=== PATIENT | female | born 1955 | race Caucasian/White ===

== ENCOUNTER → 2023-09-26 | Outpatient (REF) | payer MEDICARE, MEDICAID, SELFPAY ==
[2023-09-26 10:32] LABS: Albumin, Serum 2.5 g/dL (3.2-5.0); BUN 14 mg/dL (7-18); BUN/Creat Ratio 17.5 RATIO (10-20); Calcium,Total 9.6 mg/dL (8.5-10.1); Chloride 102 mmol/L (98-107); EST Glomerular Filtration Rate 76 mL/min (>60); Est Glom Filt Rate - Afr Amer 92 mL/min (>60); Glucose 89 mg/dL (74-106); Phosphorus 2.8 mg/dL (2.5-4.9); Potassium 4.8 mmol/L (3.5-5.1); Sodium Level 134 mmol/L (136-145)
[2023-09-26 10:51] LABS: Protein, Urine (Random) 13.3 mg/dL (<11.9); Protein:Creat Ratio 273 mg/g CRE (0-200)
== END ==
LOC: OLS.WCC 04:00
PROVIDERS: Referring Provider Family Medicine; Visit Provider Family Medicine
DX: N39.0 Urinary tract infection, site not specified (principal); G93.40 Encephalopathy, unspecified; I10 Essential (primary) hypertension; Z79.899 Other long term (current) drug therapy
CPT/HCPCS: 36415; 80069; 82570; 84156

== ENCOUNTER → 2023-10-09 | Outpatient (REF) | payer MEDICARE, MEDICAID, SELFPAY ==
[2023-10-09 07:42] LABS: Absolute Lymphocyte Count 3.07 X10^3/uL (0.83-4.51); Basophil# 0.06 X10^3/uL; Basophil% 0.7 % (0-1); Eosinophil# 0.17 X10^3/uL; Hematocrit 32.1 % (37-47); Hemoglobin 10.3 g/dL (12.0-15.0); Lymphocyte # 3.07 X10^3/ul (0.83-4.51); Lymphocyte % 35.7 % (19-41); Mean Corp Hgb Conc 32.1 g/dL (32-36); Mean Corpuscular Hgb 27.6 pg (27.0-32.0); Mean Corpuscular Volume 86.1 fL (81-99); Mean Platelet Vol. 9.7 fl (6.2-12.0); Monocyte# 1.23 X10^3/uL; Monocyte% 14.3 % (0-10); NRBC Flagged by Analyzer 0 % (0-5); Neutrophil # 4.01 X10^3/uL (2.7-7.7); Neutrophil % 46.7 % (47-70); Platelet Count 198 K/mm3 (150-450); RBC Distribution Width CV 14.7 % (11.6-14.6); RBC Distribution Width SD 46.4 fl (35.1-43.9); Red Blood Count 3.73 M/mm3 (4.2-5.4); White Blood Count 8.6 K/mm3 (4.4-11.0)
[2023-10-09 07:53] LABS: Valproic Acid (Depakene) Level 142 ug/mL (50-100)
[2023-10-09 08:10] LABS: ALB/GLOB Ratio 0.6 RATIO (0.9-2.4); AST(SGOT) 40 U/L (15-37); Alanine Aminotransfer ALT/SGPT 22 U/L (13-56); Albumin, Serum 2.6 g/dL (3.2-5.0); Alkaline Phosphatase 51 U/L (45-117); Anion Gap 7 (5-15); BUN 20 mg/dL (7-18); BUN/Creat Ratio 21.5 RATIO (10-20); Calcium,Total 9.2 mg/dL (8.5-10.1); Chloride 105 mmol/L (98-107); Creatinine, Serum 0.93 mg/dL (0.55-1.02); EST Glomerular Filtration Rate 64 mL/min (>60); Est Glom Filt Rate - Afr Amer 77 mL/min (>60); Glucose 98 mg/dL (74-106); Potassium 4.1 mmol/L (3.5-5.1); Protein, Total 6.6 g/dL (6.4-8.2); Sodium Level 135 mmol/L (136-145)
[2023-10-11 16:09] LABS: KEPPRA (LEVETIRACETAM) 56.8 ug/mL (10.0-40.0)
== END ==
LOC: OLS.WCC 05:00
PROVIDERS: Visit Provider Family Medicine
DX: I10 Essential (primary) hypertension (principal); G93.40 Encephalopathy, unspecified; G40.911 Epilepsy, unspecified, intractable, with status epilepticus; I67.9 Cerebrovascular disease, unspecified
CPT/HCPCS: 36415; 80053; 80164; 80177; 82140; 85025

== ENCOUNTER → 2023-10-21 | Outpatient (REF) | payer MEDICARE, MEDICAID, SELFPAY ==
[2023-10-21 09:57] LABS: Hemoglobin 10.4 g/dL (12.0-15.0); Mean Corp Hgb Conc 31.5 g/dL (32-36); Mean Corpuscular Hgb 27.7 pg (27.0-32.0); Mean Corpuscular Volume 87.8 fL (81-99); Mean Platelet Vol. 9.6 fl (6.2-12.0); Platelet Count 173 K/mm3 (150-450); RBC Distribution Width CV 14.5 % (11.6-14.6); RBC Distribution Width SD 46.3 fl (35.1-43.9); Red Blood Count 3.76 M/mm3 (4.2-5.4); White Blood Count 8.5 K/mm3 (4.4-11.0)
[2023-10-21 13:35] LABS: ALB/GLOB Ratio 0.6 RATIO (0.9-2.4); AST(SGOT) 40 U/L (15-37); Alanine Aminotransfer ALT/SGPT 18 U/L (13-56); Albumin, Serum 2.6 g/dL (3.2-5.0); Alkaline Phosphatase 50 U/L (45-117); Anion Gap 9 (5-15); BUN 18 mg/dL (7-18); BUN/Creat Ratio 22.1 RATIO (10-20); Calcium,Total 9.6 mg/dL (8.5-10.1); Chloride 104 mmol/L (98-107); Creatinine, Serum 0.82 mg/dL (0.55-1.02); EST Glomerular Filtration Rate 74 mL/min (>60); Est Glom Filt Rate - Afr Amer 90 mL/min (>60); Globulin 4.1 g/dL (2.2-4.2); Glucose 91 mg/dL (74-106); Potassium 4.3 mmol/L (3.5-5.1); Protein, Total 6.7 g/dL (6.4-8.2); Sodium Level 136 mmol/L (136-145)
== END ==
LOC: OLS.WCC 05:00
PROVIDERS: Visit Provider Family Medicine
DX: I10 Essential (primary) hypertension (principal); Z79.899 Other long term (current) drug therapy
CPT/HCPCS: 36415; 80053; 85027

== ENCOUNTER → 2023-11-19 | Outpatient (REF) | payer MEDICARE, MEDICAID, SELFPAY ==
[2023-11-19 10:34] LABS: ALB/GLOB Ratio 0.6 RATIO (0.9-2.4); AST(SGOT) 35 U/L (15-37); Alanine Aminotransfer ALT/SGPT 19 U/L (13-56); Albumin, Serum 2.6 g/dL (3.2-5.0); Alkaline Phosphatase 63 U/L (45-117); Anion Gap 9 (5-15); BUN 21 mg/dL (7-18); BUN/Creat Ratio 25.9 RATIO (10-20); Calcium,Total 9.5 mg/dL (8.5-10.1); Chloride 103 mmol/L (98-107); Cholesterol 76 mg/dL (200); Creatinine, Serum 0.81 mg/dL (0.55-1.02); EST Glomerular Filtration Rate 75 mL/min (>60); Est Glom Filt Rate - Afr Amer 90 mL/min (>60); Globulin 4.2 g/dL (2.2-4.2); Glucose 86 mg/dL (74-106); High Density Lipoprotein 47 mg/dL; Potassium 4.2 mmol/L (3.5-5.1); Protein, Total 6.8 g/dL (6.4-8.2); Sodium Level 137 mmol/L (136-145); Triglycerides 118 mg/dL; Very Low Density Lipoprotein 24 mg/dL (5-40)
[2023-11-19 10:35] LABS: Hematocrit 31.1 % (37-47); Mean Corp Hgb Conc 32.2 g/dL (32-36); Mean Corpuscular Hgb 27.4 pg (27.0-32.0); Mean Corpuscular Volume 85.2 fL (81-99); Mean Platelet Vol. 9.7 fl (6.2-12.0); Platelet Count 242 K/mm3 (150-450); RBC Distribution Width CV 14.4 % (11.6-14.6); RBC Distribution Width SD 44.6 fl (35.1-43.9); Red Blood Count 3.65 M/mm3 (4.2-5.4); Valproic Acid (Depakene) Level 87 ug/mL (50-100); White Blood Count 10.3 K/mm3 (4.4-11.0)
[2023-11-19 10:37] LABS: Vitamin D,25 Hydroxy 50.6 ng/mL
== END ==
LOC: OLS.WCC 05:00
PROVIDERS: PCP Family Medicine; Visit Provider Family Medicine
DX: I10 Essential (primary) hypertension (principal); E78.5 Hyperlipidemia, unspecified; Z86.73 Personal history of transient ischemic attack (TIA), and cerebral infarction without residual deficits; Z79.899 Other long term (current) drug therapy
CPT/HCPCS: 36415; 80053; 80061; 80164; 82306; 85027

== ENCOUNTER → 2023-12-20 05:00 | Outpatient (REF) | payer MEDICARE, MEDICAID, SELFPAY ==
[2023-12-20 07:18] LABS: Hemoglobin 10.5 g/dL (12.0-15.0); Mean Corp Hgb Conc 31.8 g/dL (32-36); Mean Corpuscular Hgb 27.3 pg (27.0-32.0); Mean Corpuscular Volume 85.7 fL (81-99); Mean Platelet Vol. 9.4 fl (6.2-12.0); Platelet Count 321 K/mm3 (150-450); RBC Distribution Width CV 13.6 % (11.6-14.6); RBC Distribution Width SD 42.5 fl (35.1-43.9); Red Blood Count 3.85 M/mm3 (4.2-5.4); White Blood Count 10.3 K/mm3 (4.4-11.0)
[2023-12-20 10:00] LABS: ALB/GLOB Ratio 0.6 RATIO (0.9-2.4); AST(SGOT) 21 U/L (15-37); Alanine Aminotransfer ALT/SGPT 17 U/L (13-56); Albumin, Serum 2.7 g/dL (3.2-5.0); Alkaline Phosphatase 78 U/L (45-117); Anion Gap 7 (5-15); BUN 22 mg/dL (7-18); BUN/Creat Ratio 27.9 RATIO (10-20); Calcium,Total 10.4 mg/dL (8.5-10.1); Chloride 104 mmol/L (98-107); Creatinine, Serum 0.79 mg/dL (0.55-1.02); EST Glomerular Filtration Rate 77 mL/min (>60); Est Glom Filt Rate - Afr Amer 94 mL/min (>60); Globulin 4.9 g/dL (2.2-4.2); Glucose 95 mg/dL (74-106); Protein, Total 7.6 g/dL (6.4-8.2); Sodium Level 136 mmol/L (136-145)
== END ==
LOC: OLS.WCC 05:00
PROVIDERS: PCP Family Medicine; Visit Provider Family Medicine
DX: I10 Essential (primary) hypertension (principal); Z86.73 Personal history of transient ischemic attack (TIA), and cerebral infarction without residual deficits; Z79.899 Other long term (current) drug therapy
CPT/HCPCS: 36415; 80053; 85027

== ENCOUNTER → 2024-01-02 05:00 | Outpatient (REF) | payer MEDICARE, MEDICAID, SELFPAY ==
[2024-01-02 09:28] LABS: Absolute Lymphocyte Count 3.19 X10^3/uL (0.83-4.51); Absolute Neutrophil Count 8.5 X10^3/uL (2.0-7.7); Basophil# 0.07 X10^3/uL; Basophil% 0.5 % (0-1); Eosinophil# 0.32 X10^3/uL; Eosinophils% 2.4 % (0-5); Hematocrit 33.3 % (37-47); Hemoglobin 10.6 g/dL (12.0-15.0); Lymphocyte # 3.19 X10^3/ul (0.83-4.51); Lymphocyte % 24.2 % (19-41); Mean Corp Hgb Conc 31.8 g/dL (32-36); Mean Corpuscular Hgb 27.2 pg (27.0-32.0); Mean Corpuscular Volume 85.6 fL (81-99); Mean Platelet Vol. 10.1 fl (6.2-12.0); Monocyte# 0.98 X10^3/uL; Monocyte% 7.4 % (0-10); NRBC Flagged by Analyzer 0 % (0-5); Neutrophil # 8.53 X10^3/uL (2.7-7.7); Platelet Count 290 K/mm3 (150-450); RBC Distribution Width CV 13.7 % (11.6-14.6); RBC Distribution Width SD 42.4 fl (35.1-43.9); Red Blood Count 3.89 M/mm3 (4.2-5.4); White Blood Count 13.2 K/mm3 (4.4-11.0)
[2024-01-02 09:41] LABS: ALB/GLOB Ratio 0.6 RATIO (0.9-2.4); AST(SGOT) 21 U/L (15-37); Alanine Aminotransfer ALT/SGPT 18 U/L (13-56); Albumin, Serum 2.9 g/dL (3.2-5.0); Alkaline Phosphatase 80 U/L (45-117); Anion Gap 6 (5-15); BUN 18 mg/dL (7-18); BUN/Creat Ratio 20.9 RATIO (10-20); Calcium,Total 10.4 mg/dL (8.5-10.1); Chloride 104 mmol/L (98-107); Creatinine, Serum 0.86 mg/dL (0.55-1.02); EST Glomerular Filtration Rate 70 mL/min (>60); Est Glom Filt Rate - Afr Amer 85 mL/min (>60); Globulin 4.6 g/dL (2.2-4.2); Glucose 102 mg/dL (74-106); Protein, Total 7.5 g/dL (6.4-8.2); Sodium Level 139 mmol/L (136-145)
[2024-01-02 09:55] LABS: Valproic Acid (Depakene) Level 82 ug/mL (50-100)
== END ==
LOC: OLS.WCC 05:00
PROVIDERS: PCP Family Medicine; Visit Provider Family Medicine
DX: J45.20 Mild intermittent asthma, uncomplicated (principal); G40.911 Epilepsy, unspecified, intractable, with status epilepticus; E55.9 Vitamin D deficiency, unspecified; M62.562 Muscle wasting and atrophy, not elsewhere classified, left lower leg
CPT/HCPCS: 36415; 80053; 80164; 82140; 85025

== ENCOUNTER → 2024-01-20 04:00 | Outpatient (REF) | payer MEDICARE, MEDICAID, SELFPAY ==
[2024-01-20 08:27] LABS: Hematocrit 30.3 % (37-47); Hemoglobin 9.7 g/dL (12.0-15.0); Mean Corpuscular Hgb 27.4 pg (27.0-32.0); Mean Corpuscular Volume 85.6 fL (81-99); Platelet Count 318 K/mm3 (150-450); RBC Distribution Width CV 13.6 % (11.6-14.6); RBC Distribution Width SD 42.8 fl (35.1-43.9); Red Blood Count 3.54 M/mm3 (4.2-5.4); White Blood Count 10.4 K/mm3 (4.4-11.0)
[2024-01-20 09:45] LABS: ALB/GLOB Ratio 0.6 RATIO (0.9-2.4); AST(SGOT) 23 U/L (15-37); Alanine Aminotransfer ALT/SGPT 13 U/L (13-56); Albumin, Serum 2.6 g/dL (3.2-5.0); Alkaline Phosphatase 67 U/L (45-117); Anion Gap 7 (5-15); BUN 21 mg/dL (7-18); BUN/Creat Ratio 29.2 RATIO (10-20); Calcium,Total 10.2 mg/dL (8.5-10.1); Chloride 106 mmol/L (98-107); Creatinine, Serum 0.72 mg/dL (0.55-1.02); EST Glomerular Filtration Rate 86 mL/min (>60); Est Glom Filt Rate - Afr Amer 104 mL/min (>60); Globulin 4.3 g/dL (2.2-4.2); Glucose 93 mg/dL (74-106); Potassium 4.2 mmol/L (3.5-5.1); Protein, Total 6.9 g/dL (6.4-8.2); Sodium Level 140 mmol/L (136-145)
== END ==
LOC: OLS.WCC 04:00
PROVIDERS: PCP Family Medicine; Visit Provider Family Medicine
DX: I10 Essential (primary) hypertension (principal); Z86.73 Personal history of transient ischemic attack (TIA), and cerebral infarction without residual deficits; Z79.899 Other long term (current) drug therapy
CPT/HCPCS: 36415; 80053; 85027

== ENCOUNTER → 2024-02-19 | Outpatient (REF) | payer MEDICARE, MEDICAID, SELFPAY ==
[2024-02-19 07:11] LABS: Hematocrit 30.2 % (37-47); Hemoglobin 9.4 g/dL (12.0-15.0); Mean Corp Hgb Conc 31.1 g/dL (32-36); Mean Corpuscular Hgb 26.2 pg (27.0-32.0); Mean Corpuscular Volume 84.1 fL (81-99); Mean Platelet Vol. 9.7 fl (6.2-12.0); Platelet Count 312 K/mm3 (150-450); RBC Distribution Width CV 13.9 % (11.6-14.6); RBC Distribution Width SD 43.2 fl (35.1-43.9); Red Blood Count 3.59 M/mm3 (4.2-5.4); White Blood Count 10.1 K/mm3 (4.4-11.0)
[2024-02-19 07:32] LABS: ALB/GLOB Ratio 0.7 RATIO (0.9-2.4); AST(SGOT) 24 U/L (15-37); Alanine Aminotransfer ALT/SGPT 22 U/L (13-56); Albumin, Serum 2.7 g/dL (3.2-5.0); Alkaline Phosphatase 73 U/L (45-117); Anion Gap 4 (5-15); BUN 25 mg/dL (7-18); BUN/Creat Ratio 33.3 RATIO (10-20); Chloride 109 mmol/L (98-107); Creatinine, Serum 0.75 mg/dL (0.55-1.02); EST Glomerular Filtration Rate 82 mL/min (>60); Est Glom Filt Rate - Afr Amer 99 mL/min (>60); Globulin 4.1 g/dL (2.2-4.2); Glucose 96 mg/dL (74-106); Potassium 4.2 mmol/L (3.5-5.1); Protein, Total 6.8 g/dL (6.4-8.2); Sodium Level 140 mmol/L (136-145)
== END ==
LOC: OLS.WCC 05:00
PROVIDERS: PCP Family Medicine; Visit Provider Family Medicine
DX: I10 Essential (primary) hypertension (principal); Z79.899 Other long term (current) drug therapy; Z86.73 Personal history of transient ischemic attack (TIA), and cerebral infarction without residual deficits
CPT/HCPCS: 36415; 80053; 85027

== ENCOUNTER → 2024-03-05 | Outpatient (REF) | payer MEDICARE, MEDICAID, SELFPAY ==
[2024-03-05 09:03] LABS: Valproic Acid (Depakene) Level 89 ug/mL (50-100)
[2024-03-05 09:42] LABS: ALB/GLOB Ratio 0.6 RATIO (0.9-2.4); AST(SGOT) 34 U/L (15-37); Alanine Aminotransfer ALT/SGPT 21 U/L (13-56); Alkaline Phosphatase 73 U/L (45-117); Anion Gap 6 (5-15); BUN 21 mg/dL (7-18); BUN/Creat Ratio 26.5 RATIO (10-20); Calcium,Total 9.6 mg/dL (8.5-10.1); Chloride 109 mmol/L (98-107); Creatinine, Serum 0.79 mg/dL (0.55-1.02); EST Glomerular Filtration Rate 77 mL/min (>60); Est Glom Filt Rate - Afr Amer 93 mL/min (>60); Globulin 4.7 g/dL (2.2-4.2); Glucose 94 mg/dL (74-106); Potassium 4.1 mmol/L (3.5-5.1); Protein, Total 7.7 g/dL (6.4-8.2); Sodium Level 140 mmol/L (136-145)
== END ==
LOC: OLS.WCC 05:00
PROVIDERS: PCP Family Medicine; Visit Provider Family Medicine
DX: G40.019 Localization-related (focal) (partial) idiopathic epilepsy and epileptic syndromes with seizures of localized onset, intractable, without status epilepticus (principal)
CPT/HCPCS: 36415; 80053; 80164; 82140

== ENCOUNTER → 2024-04-20 05:00 | Outpatient (REF) | payer MEDICARE, MEDICAID, SELFPAY ==
[2024-04-20 09:17] LABS: Hematocrit 33.1 % (37-47); Hemoglobin 10.6 g/dL (12.0-15.0); Mean Corpuscular Volume 81.1 fL (81-99); Mean Platelet Vol. 10.3 fl (6.2-12.0); Platelet Count 308 K/mm3 (150-450); RBC Distribution Width CV 14.4 % (11.6-14.6); RBC Distribution Width SD 42.3 fl (35.1-43.9); Red Blood Count 4.08 M/mm3 (4.2-5.4); White Blood Count 11.4 K/mm3 (4.4-11.0)
[2024-04-20 09:28] LABS: ALB/GLOB Ratio 0.6 RATIO (0.9-2.4); AST(SGOT) 22 U/L (15-37); Alanine Aminotransfer ALT/SGPT 17 U/L (13-56); Albumin, Serum 2.8 g/dL (3.2-5.0); Alkaline Phosphatase 64 U/L (45-117); Anion Gap 4 (5-15); BUN 23 mg/dL (7-18); BUN/Creat Ratio 30.5 RATIO (10-20); Calcium,Total 9.6 mg/dL (8.5-10.1); Chloride 107 mmol/L (98-107); Creatinine, Serum 0.75 mg/dL (0.55-1.02); EST Glomerular Filtration Rate 81 mL/min (>60); Est Glom Filt Rate - Afr Amer 98 mL/min (>60); Globulin 4.4 g/dL (2.2-4.2); Glucose 101 mg/dL (74-106); Potassium 4.5 mmol/L (3.5-5.1); Protein, Total 7.2 g/dL (6.4-8.2); Sodium Level 139 mmol/L (136-145)
== END ==
LOC: OLS.WCC 05:00
PROVIDERS: PCP Family Medicine; Visit Provider Family Medicine
DX: I10 Essential (primary) hypertension (principal); E78.5 Hyperlipidemia, unspecified; Z79.899 Other long term (current) drug therapy
CPT/HCPCS: 36415; 80053; 85027

== ENCOUNTER → 2024-05-21 05:00 | Outpatient (REF) | payer MEDICARE, MEDICAID, SELFPAY ==
[2024-05-21 09:46] LABS: Cholesterol 96 mg/dL (200); High Density Lipoprotein 41 mg/dL; Triglycerides 216 mg/dL; Very Low Density Lipoprotein 43 mg/dL (5-40)
[2024-05-21 09:48] LABS: Valproic Acid (Depakene) Level 68 ug/mL (50-100)
[2024-05-21 09:54] LABS: Vitamin D,25 Hydroxy 37.1 ng/mL
== END ==
LOC: OLS.WCC 05:00
PROVIDERS: Visit Provider Family Medicine
DX: G40.911 Epilepsy, unspecified, intractable, with status epilepticus (principal); Z79.899 Other long term (current) drug therapy
CPT/HCPCS: 36415; 80061; 80164; 82306

== ENCOUNTER → 2024-06-22 | Outpatient (REF) | payer MEDICARE, MEDICAID, SELFPAY ==
[2024-06-22 08:24] LABS: Hematocrit 31.4 % (37-47); Hemoglobin 10.2 g/dL (12.0-15.0); Mean Corp Hgb Conc 32.5 g/dL (32-36); Mean Corpuscular Hgb 25.8 pg (27.0-32.0); Mean Corpuscular Volume 79.3 fL (81-99); Mean Platelet Vol. 10.4 fl (6.2-12.0); Platelet Count 248 K/mm3 (150-450); RBC Distribution Width CV 14.8 % (11.6-14.6); RBC Distribution Width SD 42.9 fl (35.1-43.9); Red Blood Count 3.96 M/mm3 (4.2-5.4); White Blood Count 8.9 K/mm3 (4.4-11.0)
[2024-06-22 09:43] LABS: ALB/GLOB Ratio 0.9 RATIO (0.9-2.4); AST(SGOT) 43 U/L (<=31); Alanine Aminotransfer ALT/SGPT 19 U/L (<=34); Albumin, Serum 3.2 g/dL (3.4-4.8); Alkaline Phosphatase 67 U/L (35-104); Anion Gap 13 (5-15); BUN 28 mg/dL (4-19); BUN/Creat Ratio 39.3 RATIO (10-20); Calcium,Total 9.7 mg/dL (7.6-11.0); Chloride 102 mmol/L (98-108); Creatinine, Serum 0.72 mg/dL (0.70-1.20); EST Glomerular Filtration Rate 91 (>60); Globulin 3.6 g/dL (2.2-4.2); Glucose 104 mg/dL (70-99); Potassium 3.7 mmol/L (3.3-5.1); Protein, Total 6.8 g/dL (5.9-8.4); Sodium Level 137 mmol/L (133-145); Total Bilirubin < 0.15 mg/dL (0.00-1.30)
== END ==
LOC: OLS.WCC 05:00
PROVIDERS: Visit Provider Family Medicine
DX: I10 Essential (primary) hypertension (principal); I67.9 Cerebrovascular disease, unspecified; G93.40 Encephalopathy, unspecified; Z79.899 Other long term (current) drug therapy
CPT/HCPCS: 36415; 80053; 85027

== ENCOUNTER → 2024-07-20 | Outpatient (REF) | payer MEDICARE, MEDICAID, SELFPAY ==
[2024-07-20 09:39] LABS: Absolute Lymphocyte Count 3.36 X10^3/uL (0.83-4.51); Absolute Neutrophil Count 5.5 X10^3/uL (2.0-7.7); Basophil# 0.08 X10^3/uL; Basophil% 0.8 % (0-1); Eosinophil# 0.28 X10^3/uL; Eosinophils% 2.8 % (0-5); Hematocrit 38.4 % (37-47); Hemoglobin 12.3 g/dL (12.0-15.0); Lymphocyte # 3.36 X10^3/ul (0.83-4.51); Lymphocyte % 33.3 % (19-41); Mean Corpuscular Hgb 26.6 pg (27.0-32.0); Mean Corpuscular Volume 83.1 fL (81-99); Mean Platelet Vol. 10.1 fl (6.2-12.0); Monocyte% 7.9 % (0-10); NRBC Flagged by Analyzer 0 % (0-5); Neutrophil # 5.53 X10^3/uL (2.7-7.7); Neutrophil % 54.7 % (47-70); Platelet Count 319 K/mm3 (150-450); RBC Distribution Width CV 15.2 % (11.6-14.6); RBC Distribution Width SD 45.8 fl (35.1-43.9); Red Blood Count 4.62 M/mm3 (4.2-5.4); White Blood Count 10.1 K/mm3 (4.4-11.0)
[2024-07-20 09:52] LABS: PTHIN 67 pg/mL (11-61)
[2024-07-20 10:02] LABS: Anion Gap 13 (5-15); BUN 22 mg/dL (4-19); BUN/Creat Ratio 26.1 RATIO (10-20); Calcium,Total 10.8 mg/dL (7.6-11.0); Carbon Dioxide 24.2 mmol/L (21.0-32.0); Chloride 102 mmol/L (98-108); Creatinine, Serum 0.84 mg/dL (0.70-1.20); EST Glomerular Filtration Rate 76 (>60); Ferritin 55 ng/mL (22-378); Glucose 117 mg/dL (70-99); Iron Binding Capacity,Total 427 ug/dL (250-450); Potassium 4.4 mmol/L (3.3-5.1); Sodium Level 138 mmol/L (133-145)
[2024-07-20 10:16] LABS: Protein, Urine (Random) 14.4 mg/dL (0.0-12.0); Protein:Creat Ratio 160 mg/g CRE (0-200)
[2024-07-20 10:19] LABS: Iron 52 ug/dL (50-170); Iron Binding Capacity,Unsat 375 ug/dL (228-428); PERCENT IRON SATURATION 12.2 % (13-59); Phosphorus 3.1 mg/dL (2.7-4.5); Uric Acid 7.5 mg/dL (2.6-6.0)
== END ==
LOC: OLS.WCC 04:00
PROVIDERS: Referring Provider Family Medicine; Visit Provider Family Medicine
DX: I12.9 Hypertensive chronic kidney disease with stage 1 through stage 4 chronic kidney disease, or unspecified chronic kidney disease (principal); N18.32 Chronic kidney disease, stage 3b; D63.1 Anemia in chronic kidney disease
CPT/HCPCS: 36415; 80069; 82570; 82728; 83540; 83550; 83970; 84156; 84550; 85025

== ENCOUNTER → 2024-08-18 | Outpatient (REF) | payer MEDICARE, MEDICAID, SELFPAY ==
[2024-08-18 09:04] LABS: Hematocrit 33.5 % (37-47); Hemoglobin 10.8 g/dL (12.0-15.0); Mean Corp Hgb Conc 32.2 g/dL (32-36); Mean Corpuscular Hgb 26.4 pg (27.0-32.0); Mean Corpuscular Volume 81.9 fL (81-99); Mean Platelet Vol. 10.1 fl (6.2-12.0); Platelet Count 295 K/mm3 (150-450); RBC Distribution Width CV 15.3 % (11.6-14.6); RBC Distribution Width SD 44.9 fl (35.1-43.9); Red Blood Count 4.09 M/mm3 (4.2-5.4); White Blood Count 9.2 K/mm3 (4.4-11.0)
[2024-08-18 09:19] LABS: AST(SGOT) 52 U/L (<=31); Alanine Aminotransfer ALT/SGPT 26 U/L (<=34); Albumin, Serum 3.7 g/dL (3.4-4.8); Alkaline Phosphatase 81 U/L (35-104); Anion Gap 13 (5-15); BUN 16 mg/dL (4-19); BUN/Creat Ratio 20.2 RATIO (10-20); Calcium,Total 10.4 mg/dL (7.6-11.0); Chloride 101 mmol/L (98-108); EST Glomerular Filtration Rate 81 (>60); Globulin 3.9 g/dL (2.2-4.2); Glucose 184 mg/dL (70-99); Protein, Total 7.7 g/dL (5.9-8.4); Sodium Level 138 mmol/L (133-145); Total Bilirubin 0.23 mg/dL (0.00-1.30)
== END ==
LOC: OLS.WCC 05:00
PROVIDERS: PCP Family Medicine; Visit Provider Family Medicine
DX: I10 Essential (primary) hypertension (principal); G93.40 Encephalopathy, unspecified; Z79.899 Other long term (current) drug therapy
CPT/HCPCS: 36415; 80053; 85027

== ENCOUNTER → 2024-10-01 | Outpatient (REF) | payer MEDICARE, MEDICAID, SELFPAY ==
--- OUTSIDE RECORDS SUMMARY | 2024-10-01 03:53 | XMS RPT_ITS | CCD ---
Author Organization [facility] CliniSyut Care Team Providers Care Director Learning Services Name Role Phone NIKKI TRAVEL COORDINATOR - HAND BINDER CUTTER, FISH James Primary Care Phys ician NIKKI TRAVEL COORDINATOR - HAND BINDER CUTTER, FISH James Primary Care U navailable NIKKI TRAVEL COORDINATOR - HAND BINDER CUTTER, FISH James Attending U navailable NIKKI TRAVEL COORDINATOR - HAND BINDER CUTTER, FISH James Primary Care U leobardo GAMBLE MD, DR ELISA Clinton Attending Unavailable NIKKI TRAVEL COORDINATOR - HAND BINDER CUTTER, FISH James Primary Care U leobardo DEAN MD, MARJ Attending Unavailable NIKKI TRAVEL COORDINATOR - HAND BINDER CUTTER, FISH James Primary Care U leobardo DEAN MD, MARJ Attending Unavailable NIKKI TRAVEL COORDINATOR - HAND BINDER CUTTER, FISH James Primary Care U leobardo LEONARD MD, JAMEY Admitting Unavailable DIANNE VAZQUEZ, DR GALVEZ Attending Unavailable ELIJAH CASAREZ, CHARLY Consulting Unavailable NOE CASAREZ, JM Consulting Unavailable NIKKI TRAVEL COORDINATOR - HAND BINDER CUTTER, FISH James Consulting U navailable NIKKI TRAVEL COORDINATOR - HAND BINDER CUTTER, FISH James Attending U navailable NIKKI TRAVEL COORDINATOR - HAND BINDER CUTTER, FISH James Primary Care U navailable NIKKI TRAVEL COORDINATOR - HAND BINDER CUTTER, FISH James Attending U navailable NIKKI TRAVEL COORDINATOR - HAND BINDER CUTTER, FISH James Primary Care U navailable NIKKI TRAVEL COORDINATOR - HAND BINDER CUTTER, FISH James Attending U navailable NIKKI TRAVEL COORDINATOR - HAND BINDER CUTTER, FISH James Primary Care U navailable NIKKI TRAVEL COORDINATOR - HAND BINDER CUTTER, FISH James Primary Care U navailable NIKKI TRAVEL COORDINATOR - HAND BINDER CUTTER, FISH James Attending U navailable NIKKI TRAVEL COORDINATOR - HAND BINDER CUTTER, FISH James Attending U navailable NIKKI TRAVEL COORDINATOR - HAND BINDER CUTTER, FISH James Primary Care U navailable NIKKI TRAVEL COORDINATOR - HAND BINDER CUTTER, FISH James Attending U navailable NIKKI TRAVEL COORDINATOR - HAND BINDER CUTTER, FISH James Primary Care U navailable MEREDITH CASAREZ, DOTTY Consulting Unavailable NIKKI TRAVEL COORDINATOR - HAND BINDER CUTTER, FISH James Primary Care U leobardo MARQUEZ DO, AIDEN Attending Unavailable HORACIO CASAREZ, JAMEY Consulting Unavailable FISH JORDAN Attending Unavailable JERMAINE CASAREZ, MARJ Attending Unavailable Joel CASAREZ, Elisa Kemp Attending Provider Unavailable Aiden VAZQUEZ, Dr. Wolfe Primary Care Provider Joel CASAREZ, Elisa Kemp Referring Provider Unavailable Joel CASAREZ, Elisa Kemp Attending Provider Unavailable Dr. Aiden Wolfe DO Primary Care Provider Maldonado OLS, Elisa K Attending Unavailable Maldonado OLS, Elisa K Attending Unavailable Aiden, Aiden Primary Care Unavailable Maldonado OLS, Elisa K Attending Unavailable Aiden, Aiden Primary Care Unavailable Maldonado OLS, Elisa K Attending Unavailable [place], Aiden Primary Care Unavailable Maldonado OLS, Elisa K Attending Unavailable [place], Aiden Primary Care Unavailable Maldonado OLS, Elisa K Attending Unavailable [place], Aiden Primary Care Unavailable Maldonado OLS, Elisa K Attending Unavailable Maldonado OLS, Elisa K Attending Unavailable [place], Aiden Primary Care Unavailable Maldonado OLS, Elisa K Attending Unavailable [place], Aiden Primary Care Unavailable Maldonado OLS, Elisa K Attending Unavailable [place], Aiden Primary Care Unavailable Maldonado OLS, Elisa K Attending Unavailable Maldonado OLS, Elisa K Attending Unavailable Maldonado OLS, Elisa K Referring Unavailable Maldonado OLS, Elisa K Attending Unavailable Maldonado OLS, Elisa K Attending Unavailable Maldonado OLS, Elisa K Referring Unavailable Medications Current Medications Medication Drug Class(es) Dates Sig (Normalized) Sig (Original) acetaminophen 650 mg oral tablet (2 sources) Start: 08-12-2023 acetaminophen Dose : 650 mg = 2 tab(s), Oral, q6hWA, PRN Pain, scale 1-10, 0 Refill(s) Start Date: 08/12/23 Status: Ordered amLODIPine 5 mg oral tablet (20 sources) Dihydropyridine Calcium Channel Olyd Start: 06-20-2023 End: 12-17-2023 amLODIPine 5 mg oral tablet Dose : 5 mg = 1 tab(s), Oral, qDay, # 90 tab(s), 1 Refill(s), Pharmacy: [facility], HTN (hypertension), 159, cm, 06/20/23 7:04:00 EST, Height, kg, 06/20/23 7:04:00 EST, Dosing Weight Start Date: 06/20/23 Stop Date: 12/17/23 Status: Ordered Start: 12-20-2022 End: 06-18-2023 amLODIPine 5 mg oral tablet Dose : 5 mg = 1 tab(s), Oral, qDay, # 90 tab(s), 1 Refill(s), Pharmacy: [facility], HTN (hypertension), 160, cm, 12/20/22 7:08:00 EDT, Height, kg, 12/20/22 7:08:00 EDT, Dosing Weight Start Date: 12/20/22 Stop Date: 06/18/23 Status: Ordered Start: 01-30-2016 End: 12-11-2022 amLODIPine 5 mg oral tablet Dose : 5 mg = 1 tab(s), Oral, qDay, # 90 tab(s), 1 Refill(s), Pharmacy: [facility], HTN (hypertension), 160, cm, 06/14/22 16:06:00 EST, Height, kg, 06/14/22 16:06:00 EST, Dosing Weight Start Date: 06/14/22 Stop Date: 12/11/22 Status: Ordered amoxicillin 500 mg / clavulanate 125 mg oral tablet (2 sources) Penicillin-class Antibacterial Start: 02-24-2022 End: 03-03-2022 take 1 tablet by mouth every twelve hours Augmentin 500 mg-125 mg oral tablet 1 tab(s), Oral, q12h, X 7 day(s), # 14 tab(s), 0 Refill(s), 03/03/22 13:36:00 EST, Tremor Dehydration, 76.1 Start Date: 02/24/22 Stop Date: 03/03/22 Status: Ordered benzonatate 100 mg oral capsule (9 sources) Non-narcotic Antitussive Start: 05-01-2023 Tessalon Perles 100 mg oral capsule Dose : 100 mg = 1 cap(s), Oral, q8h, PRN as needed for cough, # 30 cap(s), 0 Refill(s), Pharmacy: [facility], Acute cough, 159, cm, 05/01/23 14:01:00 EST, Height, kg, 05/01/23 14:01:00 EST, Dosing Weight Start Date: 05/01/23 Status: Ordered Start: 02-24-2022 End: 03-01-2022 Kenya Perles 100 mg oral capsule Dose : 100 mg = 1 cap(s), Oral, TID, PRN as needed for cough, X 5 day(s), # 15 cap(s), 0 Refill(s), 03/01/22 13:35:00 EST, Tremor Dehydration Start Date: 02/24/22 Stop Date: 03/01/22 Status: Ordered cephalexin 500 mg oral capsule (1 source) Cephalosporin Antibacterial Start: 03-18-2021 End: 03-25-2021 Keflex 500 mg oral capsule Dose : 500 mg = 1 cap(s), Oral, BID, X 7 day(s), # 14 cap(s), 0 Refill(s), 03/25/21 19:27:00 EST, Seizure UTI - Urinary tract infection, 61.1 Start Date: 03/18/21 Stop Date: 03/25/21 Status: Ordered cholecalciferol 1.25 mg oral capsule (20 sources) Vitamin D Start: 06-20-2023 End: 11-17-2023 cholecalciferol 1250 mcg (50,000 intl units) oral capsule Dose : 50,000 International_Unit = 1 cap(s), Oral, qmonth, Failed conservative OTC daily use, # 3 cap(s), 4 Refill(s), Pharmacy: [facility], Vitamin D deficiency, 159, cm, 06/20/23 7:04:00 EST, Height, kg, 06/20/23 7:04:00 EST, Dosing Weight Start Date: 06/20/23 Stop Date: 11/17/23 Status: Ordered Start: 12-20-2022 End: 05-19-2023 cholecalciferol 1250 mcg (50 ,000 intl units) oral capsule Dose : 50,000 International_Unit = 1 cap(s), Oral, qmonth, Failed conservative OTC daily use, # 3 cap(s), 4 Refill(s), Pharmacy: [facility], Vitamin D deficiency, 160, cm, 12/20/22 7:08:00 EDT, Height, kg, 12/20/22 7:08:00 EDT, Dosing Weight Start Date: 12/20/22 Stop Date: 05/19/23 Status: Ordered Start: 06-28-2022 End: 05-19-2023 cholecalciferol 1250 mcg (50 ,000 intl units) oral capsule Dose : 50,000 International_Unit = 1 cap(s), Oral, qmonth, Failed conservative OTC daily use, # 3 cap(s), 4 Refill(s), Pharmacy: [facility], Vitamin D deficiency, 160, cm, 12/20/22 7:08:00 EDT, Height, kg, 12/20/22 7:08:00 EDT, Dosing Weight Start Date: 12/20/22 Stop Date: 05/19/23 Status: Ordered Start: 12-07-2021 End: 06-27-2022 cholecalciferol 1250 mcg (50 ,000 intl units) oral capsule Dose : 50,000 International_Unit = 1 cap(s), Oral, qmonth, Failed conservative OTC daily use, # 2 cap(s), 0 Refill(s), Pharmacy: [facility], Vitamin D deficiency, 160, cm, 03/30/22 15:08:00 EST, Height, kg, 03/30/22 15:08:00 EST, Dosing Weight Start Date: 05/28/22 Stop Date: 06/27/22 Status: Ordered Start: 11-24-2020 End: 08-21-2021 cholecalciferol 1250 mcg (50 ,000 intl units) oral capsule Dose : 50,000 International_Unit = 1 cap(s), Oral, qWeek, Failed conservative OTC daily use, # 13 cap(s), 2 Refill(s), Pharmacy: [facility], Vitamin D deficiency, 159, cm, 11/24/20 8:03:00 EDT, Height, kg, 11/24/20 8:03:00 EDT, Dosing Weight Start Date: 11/24/20 Stop Date: 08/21/21 Status: Ordered 1 ml evolocumab 140 mg/ml auto-injector (20 sources) PCSK9 Inhibitor Start: 08-02-2023 inject 1 dose by subcutaneous injection every other week Repatha SureClick 140 mg/mL subcutaneous solution Dose : 140 mg =, Subcutaneous, q2wk, # 2 mL, 12 Refill(s), Pharmacy: [facility], 159, cm, 08/02/23 9:46:00 EDT, Height, kg, 08/02/23 9:46:00 EDT, Dosing Weight Start Date: 08/02/23 Status: Ordered Start: 02-04-2023 inject 1 dose by sub cutaneous injection every other week Repatha SureClick 140 mg/mL subcutaneous solution Dose : 140 mg =, Subcutaneous, q2wk, # 2 mL, 0 Refill(s), Pharmacy: [facility], 160, cm, 12/20/22 7:08:00 EDT, Height, kg, 12/20/22 7:08:00 EDT, Dosing Weight Start Date: 02/04/23 Status: Ordered Start: 10-04-2022 inject 1 dose by sub cutaneous injection every other week Repatha SureClick 140 mg/mL subcutaneous solution Dose : 140 mg =, Subcutaneous, q2wk, # 1 mL, 3 Refill(s), Pharmacy: [facility], 160, cm, 06/14/22 16:06:00 EST, Height, kg, 06/14/22 16:06:00 EST, Dosing Weight Start Date: 10/04/22 Status: Ordered Start: 12-20-2021 inject 1 dose by sub cutaneous injection every other week Repatha SureClick 140 mg/mL subcutaneous solution Dose : 140 mg =, Subcutaneous, q2wk, # 3 mL, 11 Refill(s), Pharmacy: [facility], 160, cm, 12/20/21 10:10:00 EDT, Height, kg, 12/20/21 10:10:00 EDT, Dosing Weight Start Date: 12/20/21 Status: Ordered Start: 11-28-2021 inject 1 dose by sub cutaneous injection every other week Repatha SureClick 140 mg/mL subcutaneous solution Dose : 140 mg =, Subcutaneous, q2wk, # 2 kit(s), 0 Refill(s), Pharmacy: [facility], 167, cm, 06/02/21 8:18:00 EST, Height, kg, 06/02/21 8:18:00 EST, Dosing Weight Start Date: 11/28/21 Status: Ordered hydroCHLOROthiazide 25 mg oral tablet (19 sources) Thiazide Diuretic Start: 06-20-2023 End: 12-17-2023 hydroCHLOROthiazide 25 mg oral tablet Dose : 25 mg = 1 tab(s), Oral, qDay, # 90 tab(s), 1 Refill(s), Pharmacy: [facility], HTN (hypertension), 159, cm, 06/20/23 7:04:00 EST, Height, kg, 06/20/23 7:04:00 EST, Dosing Weight Start Date: 06/20/23 Stop Date: 12/17/23 Status: Ordered Start: 12-20-2022 End: 06-18-2023 hydroCHLOROthiazide 25 mg or al tablet Dose : 25 mg = 1 tab(s), Oral, qDay, # 90 tab(s), 1 Refill(s), Pharmacy: [facility], HTN (hypertension), 160, cm, 12/20/22 7:08:00 EDT, Height, kg, 12/20/22 7:08:00 EDT, Dosing Weight Start Date: 12/20/22 Stop Date: 06/18/23 Status: Ordered Start: 06-14-2022 End: 12-11-2022 hydroCHLOROthiazide 25 mg or al tablet Dose : 25 mg = 1 tab(s), Oral, qDay, # 90 tab(s), 1 Refill(s), Pharmacy: [facility], HTN (hypertension), 160, cm, 06/14/22 16:06:00 EST, Height, kg, 06/14/22 16:06:00 EST, Dosing Weight Start Date: 06/14/22 Stop Date: 12/11/22 Status: Ordered Start: 12-07-2021 End: 06-05-2022 hydroCHLOROthiazide 25 mg or al tablet Dose : 25 mg = 1 tab(s), Oral, qDay, # 90 tab(s), 1 Refill(s), Pharmacy: [facility], HTN (hypertension), 160, cm, 12/07/21 8:16:00 EDT, Height, kg, 12/07/21 8:16:00 EDT, Dosing Weight Start Date: 12/07/21 Stop Date: 06/05/22 Status: Ordered Start: 11-24-2020 End: 08-21-2021 hydroCHLOROthiazide 25 mg or al tablet Dose : 25 mg = 1 tab(s), Oral, qDay, # 90 tab(s), 2 Refill(s), Pharmacy: [facility], HTN (hypertension), 159, cm, 11/24/20 8:03:00 EDT, Height, kg, 11/24/20 8:03:00 EDT, Dosing Weight Start Date: 11/24/20 Stop Date: 08/21/21 Status: Ordered hydroCHLOROthiazide 12.5 mg / irbesartan 300 mg oral tablet (3 sources) Thiazide Diuretic, Angiotensin 2 Receptor Loyd Start: 01-30-2016 Irbesartan/Hydrochlorothiazi de (Avalide 300-12.5 Mg Tablet) 1 TAB tablet Active 1 {tbl} PO DAILY January 30, 2016 12:00am hydrocortisone 10 mg/ml / neomycin 3.5 mg/ml / polymyxin b [id number] unt/ml otic suspension (1 source) Aminoglycoside Antibacterial, Polymyxin-class Antibacterial, Corticosteroid Start: 02-27-2022 End: 03-06-2022 hydrocortisone/neomycin/poly myxi n B 1%-0.35%-10,000 units/mL otic suspension Dose = 4 drop(s), Ear, left, TID, shake well before using, X 7 day(s), # 10 mL, 0 Refill(s), Pharmacy: [facility], Acute otitis media with perforation: LEFT ONLY, 160, cm, 02/27/22 9:01:00 EST, Height Start Date: 02/27/22 Stop Date: 03/06/22 Status: Ordered levETIRAcetam 750 mg oral tablet (20 sources) Start: 06-02-2021 levETIRAcetam 750 mg oral ta blet Dose : 1,500 mg = 2 tab(s), Oral, BID, # 360 tab(s), 0 Refill(s) Start Date: 06/02/21 Status: Ordered Start: 02-02-2016 End: 08-21-2021 take 1 tablet by mouth twice daily Levetiracetam 500 MG tablet Active 500 mg PO TWICE A DAY February 02, 2016 12:00am loratadine 10 mg oral tablet (8 sources) Start: 11-06-2022 loratadine 10 mg oral tablet Dose : 10 mg = 1 tab(s), Oral, qDay, # 30 tab(s), 1 Refill(s), Pharmacy: [facility], Seasonal allergies Seasonal asthma, 160, cm, 11/06/22 8:03:00 EDT, Height, kg, 11/06/22 7:59:00 EDT, Dosing Weight Start Date: 11/06/22 Status: Ordered losartan potassium 100 mg oral tablet (20 sources) Angiotensin 2 Receptor Loyd Start: 06-20-2023 End: 12-17-2023 losartan 100 mg oral tablet Dose : 100 mg = 1 tab(s), Oral, qDay, # 90 tab(s), 1 Refill(s), Pharmacy: [facility], HTN (hypertension), 159, cm, 06/20/23 7:04:00 EST, Height, kg, 06/20/23 7:04:00 EST, Dosing Weight Start Date: 06/20/23 Stop Date: 12/17/23 Status: Ordered Start: 12-20-2022 End: 06-18-2023 losartan 100 mg oral tablet Dose : 100 mg = 1 tab(s), Oral, qDay, # 90 tab(s), 1 Refill(s), Pharmacy: [facility], HTN (hypertension), 160, cm, 12/20/22 7:08:00 EDT, Height, kg, 12/20/22 7:08:00 EDT, Dosing Weight Start Date: 12/20/22 Stop Date: 06/18/23 Status: Ordered Start: 06-14-2022 End: 12-11-2022 losartan 100 mg oral tablet Dose : 100 mg = 1 tab(s), Oral, qDay, # 90 tab(s), 1 Refill(s), Pharmacy: [facility], HTN (hypertension), 160, cm, 06/14/22 16:06:00 EST, Height, kg, 06/14/22 16:06:00 EST, Dosing Weight Start Date: 06/14/22 Stop Date: 12/11/22 Status: Ordered Start: 12-07-2021 End: 06-05-2022 losartan 100 mg oral tablet Dose : 100 mg = 1 tab(s), Oral, qDay, # 90 tab(s), 1 Refill(s), Pharmacy: [facility], HTN (hypertension), 160, cm, 12/07/21 8:16:00 EDT, Height, kg, 12/07/21 8:16:00 EDT, Dosing Weight Start Date: 12/07/21 Stop Date: 06/05/22 Status: Ordered Start: 11-24-2020 End: 08-21-2021 losartan 100 mg oral tablet Dose : 100 mg = 1 tab(s), Oral, qDay, # 90 tab(s), 2 Refill(s), Pharmacy: [facility], HTN (hypertension), 159, cm, 11/24/20 8:03:00 EDT, Height, kg, 11/24/20 8:03:00 EDT, Dosing Weight Start Date: 11/24/20 Stop Date: 08/21/21 Status: Ordered melatonin 3 mg oral tablet (10 sources) Start: 11-06-2022 melatonin 3 mg oral tablet Dose : 6 mg = 2 tab(s), Oral, qHS, PRN as needed for insomnia, # 60 tab(s), 0 Refill(s) Start Date: 11/06/22 Status: Ordered melatonin 10 mg / vitamin b6 10 mg extended release oral tablet (3 sources) Start: 01-30-2016 take 1 tablet by mouth at bedtime Melatonin-Pyridoxi ne Hcl (B6) 1 EACH tablet, IR and ER, biphasic Active 1 NMA PO AT BEDTIME January 30, 2016 12:00am phenytoin sodium 100 mg oral capsule (8 sources) Anti-epileptic Agent Start: 11-24-2020 End: 08-21-2021 Dilantin 100 mg oral capsule, extended release Dose : 100 mg = 1 cap(s), Oral, TID, # 42 cap(s), 0 Refill(s), Seizure UTI - Urinary tract infection Start Date: 03/18/21 Stop Date: 04/01/21 Status: Ordered Start: 01-30-2016 take 4 capsules by m outh at bedtime Phenytoin Sodium Extended 100 MG capsule Active 400 mg PO AT BEDTIME January 30, 2016 12:00am Start: 01-30-2016 Phenytoin 50 M G tablet,chewable Active 50 mg PO 1700 January 30, 2016 12:00am Repatha SureClick 140 mg/mL subcutaneous solution (1 source) Start: 01-09-2021 inject 1 dose by subcutaneous injection every other week Repatha SureClick 140 mg/mL subcutaneous solution Dose : 140 mg =, Subcutaneous, q2wk, # 2 kit(s), 11 Refill(s), Pharmacy: [facility], 160, cm, 01/09/21 9:17:00 EDT, Height, kg, 01/09/21 9:17:00 EDT, Dosing Weight Start Date: 01/09/21 Status: Ordered Spacer, inhaler (10 sources) Start: 11-06-2022 Spacer, inhale r See Instructions, use as directed Pt has developmental disorder and spacer required to insure proper use of inhaler., # 1 EA, 0 Refill(s), Pharmacy: [facility], Seasonal asthma Developmentally disabled, 160, cm, 11/06/22 8:03:00 EDT, Height, 76.8, kg, 11/06/22 7:59:00 EDT, Dosing Weight Start Date: 11/06/22 Status: Ordered Completed/Discontinued Medications Medication Drug Class(es) Dates Sig (Normalized) Sig (Original) albuterol MDI (90 mcg/inh) CFC free inhalation aerosol (10 sources) Start: 06-20-2023 End: 08-19-2023 take 2 puff(s) by inhalation every six hours albuterol MDI (90 mcg/inh) CFC free inhalation aerosol 2 puff(s), Inhalation, q6h, # 18 gram(s), 1 Refill(s), Pharmacy: [facility], Seasonal asthma Developmentally disabled, 159, cm, 06/20/23 7:04:00 EST, Height, kg, 06/20/23 7:04:00 EST, Dosing Weight Start Date: 06/20/23 Stop Date: 08/19/23 Status: Ordered Start: 12-20-2022 End: 02-18-2023 take 2 puff(s) by inhalation every six hours albuterol MDI (90 mcg/inh) CFC free inhalation aerosol 2 puff(s), Inhalation, q6h, # 18 gram(s), 1 Refill(s), Pharmacy: [facility], Seasonal asthma Developmentally disabled, 160, cm, 12/20/22 7:08:00 EDT, Height, kg, 12/20/22 7:08:00 EDT, Dosing Weight Start Date: 12/20/22 Stop Date: 02/18/23 Status: Ordered Start: 11-06-2022 End: 01-05-2023 take 2 puff(s) by inhalation every six hours albuterol MDI (90 mcg/inh) CFC free inhalation aerosol 2 puff(s), Inhalation, q6h, # 18 gram(s), 1 Refill(s), Pharmacy: [facility], Seasonal asthma Developmentally disabled, 160, cm, 11/06/22 8:03:00 EDT, Height, kg, 11/06/22 7:59:00 EDT, Dosing Weight Start Date: 11/06/22 Stop Date: 01/05/23 Status: Ordered 1 ml denosumab 60 mg/ml prefilled syringe (20 sources) RANK Ligand Inhibitor Start: 12-12-2021 End: 06-15-2024 Prolia 60 mg/mL subcutaneous solution Dose : 60 mg = 1 mL, Subcutaneous, q6mo, M81.0, # 1 mL, 1 Refill(s), Osteoporosis Start Date: 06/21/23 Stop Date: 06/15/24 Status: Ordered lacosamide 100 mg oral tablet (2 sources) Anti-epileptic Agent Start: 08-12-2023 End: 09-11-2023 Vimpat 100 mg oral tablet Dose : 100 mg = 1 tab(s), Oral, BID, # 60 tab(s), 0 Refill(s), other reason (Rx), Seizure, 76.6 Start Date: 08/12/23 Stop Date: 09/11/23 Status: Ordered levocetirizine dihydrochloride 5 mg oral tablet (1 source) Histamine-1 Receptor Antagonist Start: 11-24-2020 End: 01-23-2021 Xyzal 5 mg oral tablet Dose : 5 mg = 1 tab(s), Oral, qHS, # 30 tab(s), 1 Refill(s), Pharmacy: [facility], Seasonal allergies, 159, cm, 11/24/20 8:03:00 EDT, Height, kg, 11/24/20 8:03:00 EDT, Dosing Weight Start Date: 11/24/20 Stop Date: 01/23/21 Status: Ordered montelukast 10 mg oral tablet (14 sources) Leukotriene Receptor Antagonist Start: 11-06-2022 End: 01-05-2023 Singulair 10 mg oral tablet Dose : 10 mg = 1 tab(s), Oral, qDay, # 30 tab(s), 1 Refill(s), Pharmacy: [facility], Seasonal allergies Seasonal asthma, 160, cm, 11/06/22 8:03:00 EDT, Height, kg, 11/06/22 7:59:00 EDT, Dosing Weight Start Date: 11/06/22 Stop Date: 01/05/23 Status: Ordered Start: 06-14-2022 Singulair 10 m g oral tablet Dose : 10 mg = 1 tab(s), Oral, qDay, # 30 tab(s), 1 Refill(s), Pharmacy: [facility], Seasonal asthma, 160, cm, 06/14/22 16:06:00 EST, Height, kg, 06/14/22 16:06:00 EST, Dosing Weight Start Date: 06/14/22 Status: Ordered Start: 12-07-2021 Singulair 10 m g oral tablet Dose : 10 mg = 1 tab(s), Oral, qDay, # 30 tab(s), 1 Refill(s), Pharmacy: [facility], Seasonal asthma, 160, cm, 12/07/21 8:16:00 EDT, Height Start Date: 12/07/21 Status: Ordered Prolia 60 mg/mL subcutaneous solution (1 source) Start: 06-01-2020 End: 05-27-2021 Prolia 60 mg/mL subcutaneous solution Dose : 60 mg = 1 mL, Subcutaneous, q6mo, # 1 mL, 1 Refill(s), Osteoporosis Start Date: 06/01/20 Stop Date: 05/27/21 Status: Ordered rosuvastatin calcium 10 mg oral tablet (20 sources) HMG-CoA Reductase Inhibitor Start: 12-20-2022 End: 06-18-2023 rosuvastatin 10 mg oral tablet Dose : 10 mg = 1 tab(s), Oral, qDay, # 90 tab(s), 1 Refill(s), Pharmacy: [facility], Hyperlipidemia LDL goal Start Date: 12/20/22 Stop Date: 06/18/23 Status: Ordered Start: 06-14-2022 End: 12-11-2022 rosuvastatin 10 mg oral tabl et Dose : 10 mg = 1 tab(s), Oral, qDay, # 90 tab(s), 1 Refill(s), Pharmacy: [facility], Hyperlipidemia LDL goal Start Date: 06/14/22 Stop Date: 12/11/22 Status: Ordered Start: 12-07-2021 End: 06-05-2022 rosuvastatin 10 mg oral tabl et Dose : 10 mg = 1 tab(s), Oral, qDay, # 90 tab(s), 1 Refill(s), Pharmacy: [facility], Hyperlipidemia LDL goal Start Date: 12/07/21 Stop Date: 06/05/22 Status: Ordered Start: 11-24-2020 End: 08-21-2021 rosuvastatin 10 mg oral tabl et Dose : 10 mg = 1 tab(s), Oral, qDay, # 90 tab(s), 2 Refill(s), Pharmacy: [facility], Hyperlipidemia LDL goal Start Date: 11/24/20 Stop Date: 08/21/21 Status: Ordered valproic acid 250 mg oral capsule (20 sources) Mood Stabilizer, Anti-epileptic Agent Start: 08-12-2023 End: 09-11-2023 valproic acid 250 mg oral capsule Dose : 750 mg = 3 cap(s), Oral, TID, # 270 cap(s), 0 Refill(s), other reason (Rx) Start Date: 08/12/23 Stop Date: 09/11/23 Status: Ordered Start: 01-30-2016 take 1 tablet by remigio th every twenty-four hours Divalproex 250 MG tablet extended release 24 hr Active 250 mg PO 2029January 30, 2016 12:00am Start: 01-30-2016 take 1 tablet by remigio th every twenty-four hours Divalproex 500 MG tablet extended release 24 hr Active 500 mg PO 0700 January 30, 2016 12:00am Start: 01-30-2016 Divalproex 500 MG tablet extended release 24 hr Active 1000 mg PO 1700 January 30, 2016 12:00am Problems Active Problems Problem Classification Problem Date Documented Da te Episodic/Chronic Asthma (20 sources) Seasonal asthma; Translations: [Asthma] Onset: 08-04-2023 12-07-2021 Chronic Benign neoplasm of uterus (15 sources) Uterine leiomyoma 03-30-2022 Episodic Comment on above: (02/24/2022 11:[address] Abd/Pelvis w/ IV Contrast Only) FINDINGS: There are no lower thoracic findings. Liver: Normal size and density. No mass or biliary dilatation. Gallbladder: Physiologically distended and otherwise unremarkable in appearance. Common duct: Not dilated. Pancreas: No mass, inflammation, calcification or adjacent fluid collection. Stomach and duodenum: No mass or wall thickening. Spleen: No mass and is normal in size. Right Kidney: No hydronephrosis, solid mass or visible stone. Left Kidney: No hydronephrosis, solid mass or visible stone. Adrenal glands: There is a left fat containing adrenal nodule measuring 2.9 x 2.1 cm. The large and small bowel loops are unremarkable in appearance. There is a normal appendix in the RIGHT lower quadrant. Retroperitoneum: No lymphadenopathy or hematoma. Aorta: No aneurysm. Urinary bladder: Normal Uterus is unremarkable except for calcified fibromas. Mesentery: No mass or inflammatory change. No ascites or free air. No abdominal wall masses or external hernias There are no suspicious bone lesions. There is degenerative change in the spine. IMPRESSION: 1. No visible acute inflammatory process in the abdomen or pelvis. 2. 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 Chronic kidney disease (20 sources) Chronic kidney disease stage 3; Translations: [Anemia in chronic kidney disease] Onset: 06-13-2023 12-07-2021 Chronic Chronic kidney disease (3 sources) Chronic kidney disease; Translations: [Chronic kidney disease, stage 3 unspecified] Onset: 06-13-2023 Deficiency and other anemia (1 source) Anemia of chronic renal failure; Translations: [Anemia in chronic kidney disease] Chronic Deficiency and other anemia (1 source) Anemia in chronic kidney disease; Translations: [Anemia in chronic kidney disease] Onset: 07-20-2024 Chronic Deficiency and other anemia (15 sources) Anemia 11-24-2020 Episodic Developmental disorders (20 sources) Developmentally disabled; 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] Onset: 08-04-2023 04-20-2014 Chronic Diseases of white blood cells (20 sources) Leukocytosis; Translations: [Elevated white blood cell count, unspecified] 11-24-2020 Chronic Disorders of lipid metabolism (20 sources) Hyperlipidemia; Translations: [Hyperlipidemia, unspecified] Onset: 06-13-2023 11-10-2019 Chronic Epilepsy; convulsions (20 sources) Atonic seizure; 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 Left ventricle: The cavity size is normal. Wall thickness is mildly increased with moderate hypertrophy of the proximal septum. Systolic function is normal. The estimated ejection fraction is 60-65%. Wall motion is normal; there are no regional wall motion abnormalities. Normal diastolic function. 2. Aortic valve: The valve is trileaflet. The leaflets are mildly thickened. 3. Mitral valve: There is mild, 1+ regurgitation. 4. Left atrium: The atrium is mildly dilated. 5. Right ventricle: The RV systolic pressure by Doppler is 12 mm Hg. 6. Pulmonic valve: There is trivial regurgitation. 7. Tricuspid valve: There is trivial regurgitation. Fluid and electrolyte disorders (2 sources) Dehydration; Translations: [Dehydration] Onset: 02-24-2022 Episodic Fracture of upper limb (20 sources) Closed fracture of clavicle; Translations: [Fracture of unspecified part of unspecified clavicle, initial encounter for closed fracture] Onset: 03-18-2021 Episodic Genitourinary symptoms and ill-defined conditions (20 sources) Incontinence 07-25-2021 Chronic Hemorrhoids (20 sources) Hemorrhoids 09-15-2019 Episodic Hypertension with complications and secondary hypertension (1 source) Hypertensive chronic kidney disease with stage 1 through stage 4 chronic kidney disease, or unspecified chronic kidney disease; Translations: [Hypertensive chronic kidney disease with stage 1 through stage 4 chronic kidney disease, or unspecified chronic kidney disease] Onset: 07-20-2024 Chronic Neoplasms of unspecified nature or uncertain behavior (9 sources) Thrombocytosis 11-24-2020 Chronic Nutritional deficiencies (20 sources) Vitamin D deficiency; Translations: [Vitamin D deficiency, unspecified] Onset: 01-23-2024 11-10-2019 Chronic Osteoporosis (20 sources) Osteoporosis 11-10-2019 Chronic Other aftercare (2 sources) 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; Translations: [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] Onset: 04-28-2024 Episodic Other and ill-defined cerebrovascular disease (2 sources) Cerebrovascular disease, unspecified; Translations: [Cerebrovascular disease, unspecified] Onset: 02-06-2024 Chronic Other and ill-defined cerebrovascular disease (1 source) Acute cerebrovascular insufficiency; Translations: [Acute cerebrovascular insufficiency] Onset: 04-10-2024 Chronic Other diseases of kidney and ureters (16 sources) Renal mass 03-13-2022 Chronic Comment on above: (03/21/2022 08:06 ES T MRI Kidney) FINDINGS: There is a 1.3 cm T2 hypointense/T1 hyperintense lesion within the inferior pole of the right kidney that demonstrates a few internal septations. No definite contrast enhancement is seen. There is an 8 mm simple cyst within the superior pole of the right kidney. There is remonstration of a 2.8 cm left adrenal myelolipoma. No additional contributory findings. IMPRESSION: A 1.3 cm likely proteinaceous/hemorrhagic cyst is seen within the inferior pole of the right kidney however there appear to be a few septations. Consider Bosniak 2F follow-up. Recommend six-month renal ultrasound for initial follow-up. Other endocrine disorders (1 source) Secondary hyperparathyroidism; Translations: [Secondary hyperparathyroidism, not elsewhere classified] Chronic Other gastrointestinal disorders (20 sources) Irritable bowel syndrome 11-10-2019 Chronic Other gastrointestinal disorders (17 sources) Adrenal mass 02-27-2022 Episodic Comment on above: (03/01/2022 11:24 ES T MRI Adrenal) FINDINGS: A 2.8 x 2.1 cm left adrenal lesion demonstrates signal dropout on out of phase imaging, which is consistent with microscopic fat. Internal macroscopic fat signal is also demonstrated. Normal right adrenal gland. Normal liver, spleen, gallbladder, and pancreas. A 1.5 cm lesion at the inferior pole of the right kidney demonstrates intermediate T1 signal and hypointense T2 signal, which is not clearly demonstrated on the recent CT abdomen/pelvis. Included small and large bowel are normal caliber. Nonaneurysmal aorta. No lymphadenopathy. IMPRESSION: 1. The 2.8 cm left adrenal lesion is consistent with a benign adrenal myelolipoma. 2. Indeterminate 1.5 cm lesion at the inferior pole of the right kidney. This is not compatible with a simple cyst or clearly seen on the recent CT. 3. Renal protocol MR should be considered for further characterization. Other gastrointestinal disorders (5 sources) Swollen abdomen 02-27-2022 Episodic Other inflammatory condition of skin (20 sources) Psoriasis 05-12-2019 Chronic Other nervous system disorders (1 source) Aphasia; Translations: [Aphasia] Chronic Other nervous system disorders (1 source) Encephalopathy, unspecified; Translations: [Encephalopathy, unspecified] Onset: 09-22-2024 Chronic Other nervous system disorders (1 source) Tremor; Translations: [Tremor, unspecified] Onset: 02-24-2022 Episodic Other screening for suspected conditions (not mental disorders or infectious disease) (20 sources) Echocardiogram abnormal; Translations: [Increased glucose level] 01-08-2021 Episodic Other upper respiratory disease (20 sources) Seasonal allergy 11-24-2020 Chronic Other upper respiratory infections (1 source) Acute upper respiratory infection; Translations: [Acute upper respiratory infection, unspecified] Onset: 02-24-2022 Episodic Otitis media and related conditions (5 sources) Acute otitis media 02-27-2022 Episodic Residual codes; unclassified (20 sources) Postmenopausal state 09-15-2019 Episodic Residual codes; unclassified (20 sources) Increased body mass index 06-02-2021 Episodic Unclassified (20 sources) Patient encounter status 05-12-2019 Unclassified (20 sources) Non-smoker 12-07-2021 Unclassified (17 sources) Intellectual disability 02-27-2022 Unclassified (3 sources) MRDD 01-30-2016 Past or Other Problems Problem Classification Problem Date Documented Da te Episodic/Chronic Diabetes mellitus without complication (14 sources) Impaired fasting glycemia; Translations: [Impaired fasting glucose] Onset: 06-13-2023 06-14-2022 Episodic Other connective tissue disease (1 source) Muscle wasting and atrophy, not elsewhere classified, left lower leg; Translations: [Muscle wasting and atrophy, not elsewhere classified, left lower leg] Onset: 01-23-2024 Episodic Urinary tract infections (2 sources) Urinary tract infectious disease; Translations: [Urinary tract infection, site not specified] Onset: 03-18-2021 Episodic Results Test Name Value Interpretation Reference Range Facility Anion gap in Serum or Plasma Ordered By: Elisa Maldonado on 08-18-2024 Anion gap [Moles/Vol] 13 mmol/L 5-[address] [facility] Automated blood erythrocyte countOrdered By: Elisa Maldonado on 08-18-2024 RBC (Bld) [#/Vol] 4.09 10*6/uL Low 4.2-5.4 [facility] Comment on above: Order Comment: 120.1 Performed By: #### L 506.1000, L500.4050, L100.0500, L501.8100, L500.4100 #### [facility] [address] [place], [address] Automated blood hematocrit ( percentage)Ordered By: Elisa Maldonado on 08-18-2024 Hematocrit (Bld) [Volume fraction] 33.5 % Low 37-47 [facility] Comment on above: Order Comment: 120.1 Performed By: #### L 506.1000, L500.4050, L100.0500, L501.8100, L500.4100 #### [facility] [address] [place], [address] BUN/creatinine ratioOrdered By: Elisa Maldonado on 08-18-2024 Urea nitrogen/Creatinine [Mass ratio] 20.2 mg/mg High 10-20 [facility] Bilirubin, totalOrdered By: Elisa Maldonado on 08-18-2024 Bilirubin [Mass/Vol] 0.23 mg/dL Normal 0.00-1.30 [facility] Comment on above: Order Comment: 120.1 Performed By: #### L 506.1000, L500.4050, L100.0500, L501.8100, L500.4100 #### [facility] [address] [place], [place], [id number] CBC-Complete Blood Cnt No Di ffon 08-18-2024 RDW SD 44.9 fl High 35.1-43.9 [facility] Comment on above: Order Comment: 120.1 Performed By: #### L 506.1000, L500.4050, L100.0500, L501.8100, L500.4100 #### [facility] [address] [place], [address] Carbon dioxide, total [Moles /volume] in Central venous bloodOrdered By: Elisa Maldonado on 08-18-2024 CO2 [Moles/Vol] 24.0 mmol/L Normal 21.0-32.0 [facility] Comment on above: Order Comment: 120.1 Performed By: #### L 506.1000, L500.4050, L100.0500, L501.8100, L500.4100 #### [facility] [address] [place], [address] Chloride assayOrdered By: Lanette Maldonado on 08-18-2024 Chloride [Moles/Vol] 101 mmol/L Normal 98-108 [facility] Comment on above: Order Comment: 120.1 Performed By: #### L 506.1000, L500.4050, L100.0500, L501.8100, L500.4100 #### [facility] [address] [place], [address] Comprehensive Metabolic Prof ilon 08-18-2024 ALK PHOS 81 U/L Normal 35-104 [facility] Comment on above: Order Comment: 120.1 Performed By: #### L 506.1000, L500.4050, L100.0500, L501.8100, L500.4100 #### [facility] [address] [place], [address] BUN/CRE 20.2 RATIO High 10-20 [facility] Comment on above: Order Comment: 120.1 Performed By: #### L 506.1000, L500.4050, L100.0500, L501.8100, L500.4100 #### [facility] [address] [place], [address] GAP 13 Normal 5-15 [facility] Comment on above: Order Comment: 120.1 Performed By: #### L 506.1000, L500.4050, L100.0500, L501.8100, L500.4100 #### [facility] [address] [place], [address] Potassium [Moles/Vol] 4.0 mmol/L Normal 3.3-5.[address] [facility] Comment on above: Order Comment: 120.1 Performed By: #### L 506.1000, L500.4050, L100.0500, L501.8100, L500.4100 #### [facility] [address] [place], [address] T PROT 7.7 g/dL Normal 5.9-8.4 [facility] Comment on above: Order Comment: 120.1 Performed By: #### L 506.1000, L500.4050, L100.0500, L501.8100, L500.4100 #### [facility] [address] [place], [address] Comprehensive Metabolic Prof ilOrdered By: Elisa Maldonado on 08-18-2024 AST [Catalytic activity/Vol] 52 U/L High <=31 [facility] Comment on above: Order Comment: 120.1 Performed By: #### L 506.1000, L500.4050, L100.0500, L501.8100, L500.4100 #### [facility] [address] [place], [address] Erythrocyte distribution wid th ratioOrdered By: Elisa Maldonado on 08-18-2024 Erythrocyte distribution width (RBC) [Ratio] 15.3 % High 11.6-14.6 [facility] Comment on above: Order Comment: 120.1 Performed By: #### L 506.1000, L500.4050, L100.0500, L501.8100, L500.4100 #### [facility] [address] [place], [address] Erythrocyte distribution wid th standard deviationOrdered By: Elisa Maldonado on 08-18-2024 Erythrocyte distribution width (RBC) [Ratio] 44.9 fl High 35.1-43.9 [facility] Glomerular filtration rate ( GFR) estimation/1.73 sq m using serum, plasma, or whole bOrdered By: Elisa Maldonado on 08-18-2024 GFR/1.73 sq M.predicted among non-blacks MDRD (S/P/Bld) [Vol rate/Area] 81 mL/min/{1.73_m2} Normal >60 [facility] Comment on above: mL/min/1.73m2 CKD-EP I Creatinine Equation (2020) Order Comment: 120.1 Result Comment: mL/m in/1.73m2 CKD-EPI Creatinine Equation (2020) Performed By: #### L 506.1000, L500.4050, L100.0500, L501.8100, L500.4100 #### [facility] [address] [place], [address] Hemoglobin measurementOrdere d By: Elisa Maldonado on 08-18-2024 Hemoglobin (Bld) [Mass/Vol] 10.8 g/dL Low 12.0-15.0 [facility] Comment on above: Order Comment: 120.1 Performed By: #### L 506.1000, L500.4050, L100.0500, L501.8100, L500.4100 #### [facility] [address] [place], [address] MCV (mean corpuscular volume ) determinationOrdered By: Elisa Maldonado on 08-18-2024 MCV (RBC) [Entitic vol] 81.9 fL Normal 81-99 [facility] Comment on above: Order Comment: 120.1 Performed By: #### L 506.1000, L500.4050, L100.0500, L501.8100, L500.4100 #### [facility] [address] [place], [address] Mean corpuscular hemoglobin (MCH) determinationOrdered By: Elisa Maldonado on 08-18-2024 MCH (RBC) [Entitic mass] 26.4 pg Low 27.0-32.0 [facility] Comment on above: Order Comment: 120.1 Performed By: #### L 506.1000, L500.4050, L100.0500, L501.8100, L500.4100 #### [facility] [address] [place], [place], [id number] Mean corpuscular hemoglobin concentration (MCHC) determinationOrdered By: Elisa Maldonado on 08-18-2024 MCHC (RBC) [Mass/Vol] 32.2 g/dL Normal 32-[address] [facility] Comment on above: Order Comment: 120.1 Performed By: #### L 506.1000, L500.4050, L100.0500, L501.8100, L500.4100 #### [facility] [address] [place], [place], [id number] Mean platelet volume determi nationOrdered By: Elisa Maldonado on 08-18-2024 Platelet mean volume (Bld) [Entitic vol] 10.1 fL Normal 6.2-12.0 [facility] Comment on above: Order Comment: 120.1 Performed By: #### L 506.1000, L500.4050, L100.0500, L501.8100, L500.4100 #### [facility] [address] [place], [address] Platelet countOrdered By: Lanette Maldonado on 08-18-2024 Platelets (Bld) [#/Vol] 295 10*3/uL Normal 150-450 [facility] Comment on above: Order Comment: 120.1 Performed By: #### L 506.1000, L500.4050, L100.0500, L501.8100, L500.4100 #### [facility] [address] [place], [address] Potassium measurement (mass/ volume)Ordered By: Elisa Maldonado on 08-18-2024 Potassium (Unsp spec) [Mass/Vol] 4.0 mmol/L 3.3-5.1 [facility] Serum creatinine measurement (mass/volume)Ordered By: Elisa Maldonado on 08-18-2024 Creatinine [Mass/Vol] 0.80 mg/dL Normal 0.70-1.[address] [facility] Comment on above: Order Comment: 120.1 Performed By: #### L 506.1000, L500.4050, L100.0500, L501.8100, L500.4100 #### [facility] [address] [facility] [address] [place], [place], [id number] [phone] Serum globulin measurementOr dered By: Elisa Maldonado on 08-18-2024 Globulin (S) [Mass/Vol] 3.9 g/dL Normal 2.2-4.2 [facility] Comment on above: Order Comment: 120.1 Performed By: #### L 506.1000, L500.4050, L100.0500, L501.8100, L500.4100 #### [facility] [address] [place], [address] Serum glucose measurement (m ass/volume)Ordered By: Elisa Maldonado on 08-18-2024 Glucose [Mass/Vol] 184 mg/dL High 70-99 [facility] Comment on above: Order Comment: 120.1 Performed By: #### L 506.1000, L500.4050, L100.0500, L501.8100, L500.4100 #### [facility] [address] [place], [address] Serum or plasma alanine curry otransferase (ALT) measurementOrdered By: Elisa Maldonado on 08-18-2024 ALT [Catalytic activity/Vol] 26 U/L Normal <=34 [facility] Comment on above: Order Comment: 120.1 Performed By: #### L 506.1000, L500.4050, L100.0500, L501.8100, L500.4100 #### [facility] [address] [place], [address] Serum or plasma albumin emily urement (mass/volume)Ordered By: Elisa Maldonado on 08-18-2024 Albumin [Mass/Vol] 3.7 g/dL Normal 3.4-4.8 [facility] Comment on above: Order Comment: 120.1 Performed By: #### L 506.1000, L500.4050, L100.0500, L501.8100, L500.4100 #### [facility] [address] [place], [address] Serum or plasma albumin/glob ulin mass ratioOrdered By: Elisa Maldonado on 08-18-2024 Albumin/Globulin [Mass ratio] 1.0 {ratio} Normal 0.9-2.4 [facility] Comment on above: Order Comment: 120.1 Performed By: #### L 506.1000, L500.4050, L100.0500, L501.8100, L500.4100 #### [facility] [address] [place], [address] Serum or plasma alkaline mago sphatase measurementOrdered By: Elisa Maldonado on 08-18-2024 ALP [Catalytic activity/Vol] 81 U/L 35-104 [facility] Serum or plasma calcium emily urement (mass/volume)Ordered By: Elisa Maldonado on 08-18-2024 Calcium [Mass/Vol] 10.4 mg/dL Normal 7.6-11.0 [facility] Comment on above: Order Comment: 120.1 Performed By: #### L 506.1000, L500.4050, L100.0500, L501.8100, L500.4100 #### [facility] [address] [place], [address] Serum or plasma urea nitroge n measurement (mass/volume)Ordered By: Elisa Maldonado on 08-18-2024 Urea nitrogen [Mass/Vol] 16 mg/dL Normal 4-19 [facility] Comment on above: Order Comment: 120.1 Performed By: #### L 506.1000, L500.4050, L100.0500, L501.8100, L500.4100 #### [facility] [address] [place], [place], [id number] Sodium levelOrdered By: Elisa Maldonado on 08-18-2024 Sodium [Moles/Vol] 138 mmol/L Normal 133-145 [facility] Comment on above: Order Comment: 120.1 Performed By: #### L 506.1000, L500.4050, L100.0500, L501.8100, L500.4100 #### [facility] [address] [place], [address] Total proteinOrdered By: Clif Maldonado on 08-18-2024 Protein [Mass/Vol] 7.7 g/dL 5.9-8.4 [facility] White blood cell (WBC) count Ordered By: Elisa Maldonado on 08-18-2024 WBC (Bld) [#/Vol] 9.2 10*3/uL Normal 4.4-11.0 [facility] Comment on above: Order Comment: 120.1 Performed By: #### L 506.1000, L500.4050, L100.0500, L501.8100, L500.4100 #### [facility] [address] [place], [place], [id number] Absolute lymphocyte countOrd ered By: Elisa Maldonado on 07-20-2024 Lymphocytes Auto (Unsp spec) [#/Vol] 3.36 10*3/uL 0.83-4.51 [facility] Absolute neutrophil countOrd ered By: Elisa Maldonado on 07-20-2024 Neutrophils (Bld) [#/Vol] 5.5 10*3/uL 2.0-7.7 [facility] Anion gap in Serum or Plasma Ordered By: Elisa Maldonado on 07-20-2024 Anion gap [Moles/Vol] 13 mmol/L 5-[address] [facility] Automated lymphocyte count a s percentage of total leukocytesOrdered By: Elisa Maldonado on 07-20-2024 Lymphocytes/100 WBC Auto (Unsp spec) 33.3 % 19-41 [facility] BUN/creatinine ratioOrdered By: Elisa Maldonado on 07-20-2024 Urea nitrogen/Creatinine [Mass ratio] 26.1 mg/mg High 10-20 [facility] Basophil percentageOrdered B y: Elisa Maldonado on 07-20-2024 Basophils/100 WBC (Bld) 0.8 % 0-1 [facility] CBC W/Diff, Automatedon Absolute Lymph 3.36 X10 3/uL Normal 0.83-4.51 [facility] Comment on above: Order Comment: 120.1 Performed By: #### L 506.1000, L500.4050, L100.0500, L501.8100, L500.4100 #### [facility] [address] [place], [address] Absolute Neut 5.5 X10 3/uL Normal 2.0-7.7 [facility] Comment on above: Order Comment: 120.1 Performed By: #### L 506.1000, L500.4050, L100.0500, L501.8100, L500.4100 #### [facility] [address] [place], [address] Basophils/100 WBC (Bld) 0.8 % Normal 0-1 [facility] Comment on above: Order Comment: 120.1 Performed By: #### L 506.1000, L500.4050, L100.0500, L501.8100, L500.4100 #### [facility] [address] [place], [address] Eosinophils/100 WBC (Bld) 2.8 % Normal 0-5 [facility] Comment on above: Order Comment: 120.1 Performed By: #### L 506.1000, L500.4050, L100.0500, L501.8100, L500.4100 #### [facility] [address] [place], [address] Erythrocyte distribution width (RBC) [Ratio] 15.2 % High 11.6-14.6 [facility] Comment on above: Order Comment: 120.1 Performed By: #### L 506.1000, L500.4050, L100.0500, L501.8100, L500.4100 #### [facility] [address] [place], [address] Hematocrit (Bld) [Volume fraction] 38.4 % Normal 37-47 [facility] Comment on above: Order Comment: 120.1 Performed By: #### L 506.1000, L500.4050, L100.0500, L501.8100, L500.4100 #### [facility] [address] [place], [address] Hemoglobin (Bld) [Mass/Vol] 12.3 g/dL Normal 12.0-15.0 [facility] Comment on above: Order Comment: 120.1 Performed By: #### L 506.1000, L500.4050, L100.0500, L501.8100, L500.4100 #### [facility] [address] [place], [address] IG% 0.500 Normal 0.0-0.9 [facility] Comment on above: Order Comment: 120.1 Result Comment: IG% - Immature Granulocytes (promyelocytes, myelocytes and metamyelocytes) > 1% indicates that a LEFT SHIFT is Present. Performed By: #### L 506.1000, L500.4050, L100.0500, L501.8100, L500.4100 #### [facility] [facility] [address], [address] Lymphocytes/100 WBC (Bld) 33.3 % Normal 19-41 [facility] Comment on above: Order Comment: 120.1 Performed By: #### L 506.1000, L500.4050, L100.0500, L501.8100, L500.4100 #### [facility] [address] [place], [address] MCH (RBC) [Entitic mass] 26.6 pg Low 27.0-32.0 [facility] Comment on above: Order Comment: 120.1 Performed By: #### L 506.1000, L500.4050, L100.0500, L501.8100, L500.4100 #### [facility] [address] [place], [address] MCHC (RBC) [Mass/Vol] 32.0 g/dL Normal 32-[address] [facility] Comment on above: Order Comment: 120.1 Performed By: #### L 506.1000, L500.4050, L100.0500, L501.8100, L500.4100 #### [facility] [address] [place], [address] MCV (RBC) [Entitic vol] 83.1 fL Normal 81-99 [facility] Comment on above: Order Comment: 120.1 Performed By: #### L 506.1000, L500.4050, L100.0500, L501.8100, L500.4100 #### [facility] [address] [place], [address] Monocytes/100 WBC (Bld) 7.9 % Normal 0-10 [facility] Comment on above: Order Comment: 120.1 Performed By: #### L 506.1000, L500.4050, L100.0500, L501.8100, L500.4100 #### [facility] [address] [place], [address] Neutrophils/100 WBC (Bld) 54.7 % Normal 47-70 [facility] Comment on above: Order Comment: 120.1 Performed By: #### L 506.1000, L500.4050, L100.0500, L501.8100, L500.4100 #### [facility] [address] [place], [address] Nucleated RBC (Bld) [#/Vol] 0 10*3/uL Normal 0-5 [facility] Comment on above: Order Comment: 120.1 Performed By: #### L 506.1000, L500.4050, L100.0500, L501.8100, L500.4100 #### [facility] [address] [place], [address] Platelet mean volume (Bld) [Entitic vol] 10.1 fL Normal 6.2-12.0 [facility] Comment on above: Order Comment: 120.1 Performed By: #### L 506.1000, L500.4050, L100.0500, L501.8100, L500.4100 #### [facility] [address] [place], [address] Platelets (Bld) [#/Vol] 319 10*3/uL Normal 150-450 [facility] Comment on above: Order Comment: 120.1 Performed By: #### L 506.1000, L500.4050, L100.0500, L501.8100, L500.4100 #### [facility] [address] [place], [address] RBC (Bld) [#/Vol] 4.62 10*6/uL Normal 4.2-5.4 [facility] Comment on above: Order Comment: 120.1 Performed By: #### L 506.1000, L500.4050, L100.0500, L501.8100, L500.4100 #### [facility] [address] [place], [address] RDW SD 45.8 fl High 35.1-43.9 [facility] Comment on above: Order Comment: 120.1 Performed By: #### L 506.1000, L500.4050, L100.0500, L501.8100, L500.4100 #### [facility] [address] [place], [address] WBC (Bld) [#/Vol] 10.1 10*3/uL Normal 4.4-11.0 [facility] Comment on above: Order Comment: 120.1 Performed By: #### L 506.1000, L500.4050, L100.0500, L501.8100, L500.4100 #### [facility] [address] [place], [address] Calculated total iron bindin g capacityOrdered By: Elisa Maldonado on 07-20-2024 Total Iron Binding Capacity 427 ug/dL 250-450 [facility] Carbon dioxide, total [Moles /volume] in Central venous bloodOrdered By: Elisa Maldonado on 07-20-2024 CO2 [Moles/Vol] 24.2 mmol/L 21.0-32.0 [facility] Chloride assayOrdered By: Lanette Maldonado on 07-20-2024 Chloride [Moles/Vol] 102 mmol/L 98-108 [facility] Creatinine Unsp time (U) [Ma ss/Vol]Ordered By: Elisa Maldonado on 07-20-2024 Creatinine (U) [Mass/Vol] 89.80 mg/dL 28.00-217.00 [facility] Eosinophil percentageOrdered By: Elisa Maldonado on 07-20-2024 Eosinophils/100 WBC (Bld) 2.8 % 0-5 [facility] Erythrocyte distribution wid th (RBC) [Ratio]Ordered By: Elisa Maldonado on 07-20-2024 Erythrocyte distribution width (RBC) [Entitic vol] 45.8 fL High 35.1-43.9 [facility] Erythrocyte distribution wid th ratioOrdered By: Elisa Maldonado on 07-20-2024 Erythrocyte distribution width (RBC) [Ratio] 15.2 % High 11.6-14.6 [facility] Erythrocyte distribution wid th standard deviationOrdered By: Elisa Maldonado on 07-20-2024 Erythrocyte distribution width (RBC) [Ratio] 45.8 fl High 35.1-43.9 [facility] Ferritinon 04-07-2025 Ferritin [Mass/Vol] 55 ng/mL Normal 22-378 [facility] Comment on above: Order Comment: 120.1 Performed By: #### L 506.1000, L500.4050, L100.0500, L501.8100, L500.4100 #### [facility] [address] [place], [address] GFR/1.73 sq M.predicted kojo g non-blacks MDRD (S/P/Bld) [Vol rate/Area]Ordered By: Elisa Maldonado on 07-20-2024 Estimated GFR (MDRD) Non-Af Amer 76 >60 [facility] Comment on above: mL/min/1.73m2 CKD-EP I Creatinine Equation (2020) Glomerular filtration rate ( GFR) estimation/1.73 sq m using serum, plasma, or whole bOrdered By: Elisa Maldonado on 07-20-2024 GFR/1.73 sq M.predicted among non-blacks MDRD (S/P/Bld) [Vol rate/Area] 76 mL/min/{1.73_m2} >60 [facility] Comment on above: mL/min/1.73m2 CKD-EP I Creatinine Equation (2020) Hematocrit Auto (Bld) [Volum e fraction]Ordered By: Elisa Maldonado on 07-20-2024 Hematocrit (Bld) [Volume fraction] 38.4 % 37-47 [facility] Hemoglobin measurementOrdere d By: Elisa Maldonado on 07-20-2024 Hemoglobin (Bld) [Mass/Vol] 12.3 g/dL 12.0-15.0 [facility] Immature granulocytes/100 WB C Auto (Bld)Ordered By: Elisa Maldonado on 07-20-2024 Immature granulocytes/100 WBC (Bld) 0.500 % 0.0-0.9 [facility] Comment on above: IG% - Immature Granu locytes (promyelocytes, myelocytes and metamyelocytes) > 1% indicates that a LEFT SHIFT is Present. Iron (Unsp spec) [Mass/Mass] Ordered By: Elisa Maldonado on 07-20-2024 Iron [Mass/Vol] 52 ug/dL 50-170 [facility] Iron measurement (mass/mass) Ordered By: Elisa Maldonado on 07-20-2024 Iron (Unsp spec) [Mass/Mass] 52 ug/dL 50-170 [facility] Iron saturation [Mass fracti on]Ordered By: Elisa Maldonado on 07-20-2024 Iron Saturation 12.2 % Low 13-59 [facility] Comment on above: Previous reported re sult: 12.0 %Edited by: YONATAN on 07/20/24:1019 AMENDED REPORT 07/20/24 1019 IRON SATURATION previously reported as: 12.0 L % Iron+Iron Binding Capacityon 07-20-2024 Iron [Mass/Vol] 52 ug/dL Normal 50-170 [facility] Comment on above: Order Comment: 120.1 Performed By: #### L 506.1000, L500.4050, L100.0500, L501.8100, L500.4100 #### [facility] [address] [place], [address] UIBC 375 ug/dL Normal 228-428 [facility] Comment on above: Order Comment: 120.1 Performed By: #### L 506.1000, L500.4050, L100.0500, L501.8100, L500.4100 #### [facility] [address] [facility] [place], [address] Lymphocytes Auto (Unsp spec) [#/Vol]Ordered By: Elisa Maldonado on 07-20-2024 Lymphocytes (Bld) [#/Vol] 3.36 10*3/uL 0.83-4.51 [facility] Lymphocytes/100 WBC Auto (Un sp spec)Ordered By: Elisa Maldonado on 07-20-2024 Lymphocytes/100 WBC (Bld) 33.3 % 19-41 [facility] MCV (mean corpuscular volume ) determinationOrdered By: Elisa Maldonado on 07-20-2024 MCV (RBC) [Entitic vol] 83.1 fL 81-99 [facility] Mean corpuscular hemoglobin (MCH) determinationOrdered By: Elisa Maldonado on 07-20-2024 MCH (RBC) [Entitic mass] 26.6 pg Low 27.0-32.0 [facility] Mean corpuscular hemoglobin concentration (MCHC) determinationOrdered By: Elisa Maldonado on 07-20-2024 MCHC (RBC) [Mass/Vol] 32.0 g/dL 32-[address] [facility] Mean platelet volume determi nationOrdered By: Elisa Maldonado on 07-20-2024 Platelet mean volume (Bld) [Entitic vol] 10.1 fL 6.2-12.0 [facility] Monocyte percentageOrdered B y: Elisa Maldonado on 07-20-2024 Monocytes/100 WBC (Bld) 7.9 % 0-10 [facility] Neutrophil percentageOrdered By: Elisa Maldonado on 07-20-2024 Neutrophils/100 WBC (Bld) 54.7 % 47-70 [facility] No Panel InformationOrdered By: Elisa Maldonado on 07-20-2024 Unsaturated Iron Binding Capacity 375 ug/dL 228-428 [facility] Nucleated red blood cell per centageOrdered By: Elisa Maldonado on 07-20-2024 Nucleated RBC/100 WBC (Bld) [Ratio] 0 % 0-5 [facility] PTH intactOrdered By: Elisa braga on 07-20-2024 Parathyroid Hormone (Intact) 67 pg/mL High 11- [facility] PTHINon 07-20-2024 PTH 67 pg/mL High [facility] Comment on above: Performed By: #### L 506.1000, L500.4050, L100.0500, L501.8100, L500.4100 #### [facility] [address] [place] [address], [address] Platelet countOrdered By: Lanette Maldonado on 07-20-2024 Platelets (Bld) [#/Vol] 319 10*3/uL 150-450 [facility] Potassium (Unsp spec) [Mass/ Vol]Ordered By: Elisa Maldonado on 07-20-2024 Potassium [Moles/Vol] 4.4 mmol/L 3.3-5.[address] [facility] Potassium measurement (mass/ volume)Ordered By: Elisa Maldonado on 07-20-2024 Potassium (Unsp spec) [Mass/Vol] 4.4 mmol/L 3.3-5.1 [facility] Protein+Creatinine Ratio,Uri neon 07-20-2024 PROT:CRE RATIO 160 mg/g CRE Normal 0-200 [facility] Comment on above: Performed By: #### L 506.1000, L500.4050, L100.0500, L501.8100, L500.4100 #### [facility] [address] [place], [address] Protein (U) [Mass/Vol] 14.4 mg/dL High 0.0-12.0 [facility] Comment on above: Performed By: #### L 506.1000, L500.4050, L100.0500, L501.8100, L500.4100 #### [facility] [address] [place], [address] UR CREAT 89.80 mg/dL Normal 28.00-217.00 [facility] Comment on above: Performed By: #### L 506.1000, L500.4050, L100.0500, L501.8100, L500.4100 #### [facility] [address] [place], [address] Protein/Creatinine (U) [Mass ratio]Ordered By: Elisa Maldonado on 07-20-2024 Urine Protein/Creatinine Ratio 160 mg/g CRE 0-200 [facility] RBC Auto (Bld) [#/Vol]Ordere d By: Elisa Maldonado on 07-20-2024 RBC (Bld) [#/Vol] 4.62 10*6/uL 4.2-5.4 [facility] Random urine creatinine emily urement (mass/volume)Ordered By: Elisa Maldonado on 07-20-2024 Creatinine Unsp time (U) [Mass/Vol] 89.80 mg/dL 28.00-217.00 [facility] Renal Profileon 07-20-2024 Phosphate [Mass/Vol] 3.1 mg/dL Normal 2.7-4.5 [facility] Comment on above: Order Comment: 120.1 Performed By: #### L 506.1000, L500.4050, L100.0500, L501.8100, L500.4100 #### [facility] [place], [address] Serum creatinine measurement (mass/volume)Ordered By: Elisa Maldonado on 07-20-2024 Creatinine [Mass/Vol] 0.84 mg/dL 0.70-1.[address] [facility] Serum glucose measurement (m ass/volume)Ordered By: Elisa Maldonado on 07-20-2024 Glucose [Mass/Vol] 117 mg/dL High 70-99 [facility] Serum or plasma albumin emily urement (mass/volume)Ordered By: Elisa Maldonado on 07-20-2024 Albumin [Mass/Vol] 4.0 g/dL 3.4-4.8 [facility] Serum or plasma calcium emily urement (mass/volume)Ordered By: Elisa Maldonado on 07-20-2024 Calcium [Mass/Vol] 10.8 mg/dL 7.6-11.0 [facility] Serum or plasma ferritin alberto surement (mass/volume)Ordered By: Elisa Maldonado on 07-20-2024 Ferritin [Mass/Vol] 55 ng/mL 22-378 [facility] Serum or plasma iron saturat ion measurement (mass fraction)Ordered By: Elisa Maldonado on 07-20-2024 Iron saturation [Mass fraction] 12.2 % Low 13-59 [facility] Comment on above: Previous reported re sult: 12.0 %Edited by: YONATAN on 07/20/24:1019 AMENDED REPORT 07/20/24 1019 IRON SATURATION previously reported as: 12.0 L % Serum or plasma urea nitroge n measurement (mass/volume)Ordered By: Elisa Maldonado on 07-20-2024 Urea nitrogen [Mass/Vol] 22 mg/dL High 4-19 [facility] Serum or plasma uric acid me asurement (mass/volume)Ordered By: Elisa Maldonado on 07-20-2024 Urate [Mass/Vol] 7.5 mg/dL High 2.6-6.0 [facility] Comment on above: The drugs N-Acetylcy steine and Metamizole may falsely depress this assay. Serum phosphorus measurement Ordered By: Elisa Maldonado on 07-20-2024 Phosphorus Level 3.1 mg/dL 2.7-4.5 [facility] Sodium levelOrdered By: Elisa Maldonado on 07-20-2024 Sodium [Moles/Vol] 138 mmol/L 133-145 [facility] Uric Acidon 07-20-2024 URIC 7.5 mg/dL High 2.6-6.0 [facility] Comment on above: Order Comment: 120.1 Result Comment: The drugs N-Acetylcysteine and Metamizole may falsely depress this assay. Performed By: #### L 506.1000, L500.4050, L100.0500, L501.8100, L500.4100 #### [facility] [address] [place], [place], [id number] Urine protein measurement (m ass/volume)Ordered By: Elisa Maldonado on 07-20-2024 Protein (U) [Mass/Vol] 14.4 mg/dL High 0.0-12.0 [facility] Urine protein/creatinine mas s ratioOrdered By: Elisa Maldonado on 07-20-2024 Protein/Creatinine (U) [Mass ratio] 160 mg/g CRE 0-200 [facility] White blood cell (WBC) count Ordered By: Elisa Maldonado on 07-20-2024 WBC (Bld) [#/Vol] 10.1 10*3/uL 4.4-11.0 [facility] Anion gap in Serum or Plasma Ordered By: Elisa Maldonado on 06-22-2024 Anion gap [Moles/Vol] 13 mmol/L 5-[address] [facility] BUN/creatinine ratioOrdered By: Elisa Maldonado on 06-22-2024 Urea nitrogen/Creatinine [Mass ratio] 39.3 mg/mg High 10-20 [facility] Bilirubin, totalOrdered By: Elisa Maldonado on 06-22-2024 Bilirubin [Mass/Vol] mg/dL 0.00-1.30 [facility] CBC-Complete Blood Cnt No Di ffon 06-22-2024 Erythrocyte distribution width (RBC) [Ratio] 14.8 % High 11.6-14.6 [facility] Comment on above: Order Comment: 120.1 Performed By: #### L 506.1000, L500.4050, L100.0500, L501.8100, L500.4100 #### [facility] [address] [place], [address] Hematocrit (Bld) [Volume fraction] 31.4 % Low 37-47 [facility] Comment on above: Order Comment: 120.1 Performed By: #### L 506.1000, L500.4050, L100.0500, L501.8100, L500.4100 #### [facility] [address] [place], [address] Hemoglobin (Bld) [Mass/Vol] 10.2 g/dL Low 12.0-15.0 [facility] Comment on above: Order Comment: 120.1 Performed By: #### L 506.1000, L500.4050, L100.0500, L501.8100, L500.4100 #### [facility] [address] [place], [address] MCH (RBC) [Entitic mass] 25.8 pg Low 27.0-32.0 [facility] Comment on above: Order Comment: 120.1 Performed By: #### L 506.1000, L500.4050, L100.0500, L501.8100, L500.4100 #### [facility] [address] [place], [address] MCHC (RBC) [Mass/Vol] 32.5 g/dL Normal 32-[address] [facility] Comment on above: Order Comment: 120.1 Performed By: #### L 506.1000, L500.4050, L100.0500, L501.8100, L500.4100 #### [facility] [address] [place], [address] MCV (RBC) [Entitic vol] 79.3 fL Low 81-99 [facility] Comment on above: Order Comment: 120.1 Performed By: #### L 506.1000, L500.4050, L100.0500, L501.8100, L500.4100 #### [facility] [address] [place], [address] Platelet mean volume (Bld) [Entitic vol] 10.4 fL Normal 6.2-12.0 [facility] Comment on above: Order Comment: 120.1 Performed By: #### L 506.1000, L500.4050, L100.0500, L501.8100, L500.4100 #### [facility] [address] [place], [address] Platelets (Bld) [#/Vol] 248 10*3/uL Normal 150-450 [facility] Comment on above: Order Comment: 120.1 Performed By: #### L 506.1000, L500.4050, L100.0500, L501.8100, L500.4100 #### [facility] [address] [place], [address] RBC (Bld) [#/Vol] 3.96 10*6/uL Low 4.2-5.4 [facility] Comment on above: Order Comment: 120.1 Performed By: #### L 506.1000, L500.4050, L100.0500, L501.8100, L500.4100 #### [facility] [address] [place], [address] RDW SD 42.9 fl Normal 35.1-43.9 [facility] Comment on above: Order Comment: 120.1 Performed By: #### L 506.1000, L500.4050, L100.0500, L501.8100, L500.4100 #### [facility] [address] [place], [address] WBC (Bld) [#/Vol] 8.9 10*3/uL Normal 4.4-11.0 [facility] Comment on above: Order Comment: 120.1 Performed By: #### L 506.1000, L500.4050, L100.0500, L501.8100, L500.4100 #### [facility] [address] [place], [address] Carbon dioxide, total [Moles /volume] in Central venous bloodOrdered By: Elisa Maldonado on 06-22-2024 CO2 [Moles/Vol] 22.0 mmol/L 21.0-32.0 [facility] Chloride assayOrdered By: Lanette Maldonado on 06-22-2024 Chloride [Moles/Vol] 102 mmol/L 98-108 [facility] Comprehensive Metabolic Prof ilon 06-22-2024 Albumin [Mass/Vol] 3.2 g/dL Low 3.4-4.8 [facility] Comment on above: Order Comment: 120.1 Performed By: #### L 506.1000, L500.4050, L100.0500, L501.8100, L500.4100 #### [facility] [address] [place], [address] Albumin/Globulin [Mass ratio] 0.9 {ratio} Normal 0.9-2.4 [facility] Comment on above: Order Comment: 120.1 Performed By: #### L 506.1000, L500.4050, L100.0500, L501.8100, L500.4100 #### [facility] [address] [place], [address] ALK PHOS 67 U/L Normal 35-104 [facility] Comment on above: Order Comment: 120.1 Performed By: #### L 506.1000, L500.4050, L100.0500, L501.8100, L500.4100 #### [facility] [address] [place], [address] ALT [Catalytic activity/Vol] 19 U/L Normal <=34 [facility] Comment on above: Order Comment: 120.1 Performed By: #### L 506.1000, L500.4050, L100.0500, L501.8100, L500.4100 #### [facility] [address] [place], [address] AST [Catalytic activity/Vol] 43 U/L High <=31 [facility] Comment on above: Order Comment: 120.1 Performed By: #### L 506.1000, L500.4050, L100.0500, L501.8100, L500.4100 #### [facility] [address] [place], [address] BUN/CRE 39.3 RATIO High 10-20 [facility] Comment on above: Order Comment: 120.1 Performed By: #### L 506.1000, L500.4050, L100.0500, L501.8100, L500.4100 #### [facility] [address] [place], [address] Calcium [Mass/Vol] 9.7 mg/dL Normal 7.6-11.0 [facility] Comment on above: Order Comment: 120.1 Performed By: #### L 506.1000, L500.4050, L100.0500, L501.8100, L500.4100 #### [facility] [address] [place], [address] Chloride [Moles/Vol] 102 mmol/L Normal 98-108 [facility] Comment on above: Order Comment: 120.1 Performed By: #### L 506.1000, L500.4050, L100.0500, L501.8100, L500.4100 #### [facility] [address] [place], [address] CO2 [Moles/Vol] 22.0 mmol/L Normal 21.0-32.0 [facility] Comment on above: Order Comment: 120.1 Performed By: #### L 506.1000, L500.4050, L100.0500, L501.8100, L500.4100 #### [facility] [address] [place], [address] Creatinine [Mass/Vol] 0.72 mg/dL Normal 0.70-1.[address] [facility] Comment on above: Order Comment: 120.1 Performed By: #### L 506.1000, L500.4050, L100.0500, L501.8100, L500.4100 #### [facility] [address] [place], [address] GAP 13 Normal 5-15 [facility] Comment on above: Order Comment: 120.1 Performed By: #### L 506.1000, L500.4050, L100.0500, L501.8100, L500.4100 #### [facility] [address] [place], [address] GFR/1.73 sq M.predicted among non-blacks MDRD (S/P/Bld) [Vol rate/Area] 91 mL/min/{1.73_m2} Normal >60 [facility] Comment on above: Order Comment: 120.1 Result Comment: mL/m in/1.73m2 CKD-EPI Creatinine Equation (2020) Performed By: #### L 506.1000, L500.4050, L100.0500, L501.8100, L500.4100 #### [facility] [address] [place], [address] Globulin (S) [Mass/Vol] 3.6 g/dL Normal 2.2-4.2 [facility] Comment on above: Order Comment: 120.1 Performed By: #### L 506.1000, L500.4050, L100.0500, L501.8100, L500.4100 #### [facility] [address] [place], [address] Glucose [Mass/Vol] 104 mg/dL High 70-99 [facility] Comment on above: Order Comment: 120.1 Performed By: #### L 506.1000, L500.4050, L100.0500, L501.8100, L500.4100 #### [facility] [address] [place], [address] Potassium [Moles/Vol] 3.7 mmol/L Normal 3.3-5.[address] [facility] Comment on above: Order Comment: 120.1 Performed By: #### L 506.1000, L500.4050, L100.0500, L501.8100, L500.4100 #### [facility] [address] [place], [address] Sodium [Moles/Vol] 137 mmol/L Normal 133-145 [facility] Comment on above: Order Comment: 120.1 Performed By: #### L 506.1000, L500.4050, L100.0500, L501.8100, L500.4100 #### [facility] [address] [place], [address] T BILI < 0.15 Normal 0.00-1.30 [facility] Comment on above: Order Comment: 120.1 Performed By: #### L 506.1000, L500.4050, L100.0500, L501.8100, L500.4100 #### [facility] [address] [place], [address] T PROT 6.8 g/dL Normal 5.9-8.4 [facility] Comment on above: Order Comment: 120.1 Performed By: #### L 506.1000, L500.4050, L100.0500, L501.8100, L500.4100 #### [facility] [address] [place], [address] Urea nitrogen [Mass/Vol] 28 mg/dL High 4-19 [facility] Comment on above: Order Comment: 120.1 Performed By: #### L 506.1000, L500.4050, L100.0500, L501.8100, L500.4100 #### [facility] [place], [address] Erythrocyte distribution wid th (RBC) [Ratio]Ordered By: Elisa Maldonado on 06-22-2024 Erythrocyte distribution width (RBC) [Entitic vol] 42.9 fL 35.1-43.9 [facility] Erythrocyte distribution wid th ratioOrdered By: Elisa Maldonado on 06-22-2024 Erythrocyte distribution width (RBC) [Ratio] 14.8 % High 11.6-14.6 [facility] Erythrocyte distribution wid th standard deviationOrdered By: Elisa Maldonado on 06-22-2024 Erythrocyte distribution width (RBC) [Ratio] 42.9 fl 35.1-43.9 [facility] GFR/1.73 sq M.predicted kojo g non-blacks MDRD (S/P/Bld) [Vol rate/Area]Ordered By: Elisa Maldonado on 06-22-2024 Estimated GFR (MDRD) Non-Af Amer 91 >60 [facility] Comment on above: mL/min/1.73m2 CKD-EP I Creatinine Equation (2020) Glomerular filtration rate ( GFR) estimation/1.73 sq m using serum, plasma, or whole bOrdered By: Elisa Maldonado on 06-22-2024 GFR/1.73 sq M.predicted among non-blacks MDRD (S/P/Bld) [Vol rate/Area] 91 mL/min/{1.73_m2} >60 [facility] Comment on above: mL/min/1.73m2 CKD-EP I Creatinine Equation (2020) Hematocrit Auto (Bld) [Volum e fraction]Ordered By: Elisa Maldonado on 06-22-2024 Hematocrit (Bld) [Volume fraction] 31.4 % Low 37-47 [facility] Hemoglobin measurementOrdere d By: Elisa Maldonado on 06-22-2024 Hemoglobin (Bld) [Mass/Vol] 10.2 g/dL Low 12.0-15.0 [facility] - Chemistry and C hemistry - challengeOrdered By: Elisa Maldonado on 06-22-2024 AST [Catalytic activity/Vol] 43 U/L High <32 [facility] MCV (mean corpuscular volume ) determinationOrdered By: Elisa Maldonado on 06-22-2024 MCV (RBC) [Entitic vol] 79.3 fL Low 81-99 [facility] Mean corpuscular hemoglobin (MCH) determinationOrdered By: Elisa Maldonado on 06-22-2024 MCH (RBC) [Entitic mass] 25.8 pg Low 27.0-32.0 [facility] Mean corpuscular hemoglobin concentration (MCHC) determinationOrdered By: Elisa Maldonado on 06-22-2024 MCHC (RBC) [Mass/Vol] 32.5 g/dL 32-[address] [facility] Mean platelet volume determi nationOrdered By: Elisa Maldonado on 06-22-2024 Platelet mean volume (Bld) [Entitic vol] 10.4 fL 6.2-12.0 [facility] Platelet countOrdered By: Lanette Maldonado on 06-22-2024 Platelets (Bld) [#/Vol] 248 10*3/uL 150-450 [facility] Potassium (Unsp spec) [Mass/ Vol]Ordered By: Elisa Maldonado on 06-22-2024 Potassium [Moles/Vol] 3.7 mmol/L 3.3-5.[address] [facility] Potassium measurement (mass/ volume)Ordered By: Elisa Maldonado on 06-22-2024 Potassium (Unsp spec) [Mass/Vol] 3.7 mmol/L 3.3-5.1 [facility] RBC Auto (Bld) [#/Vol]Ordere d By: Elisa Maldonado on 06-22-2024 RBC (Bld) [#/Vol] 3.96 10*6/uL Low 4.2-5.4 [facility] Serum creatinine measurement (mass/volume)Ordered By: Elisa Maldonado on 06-22-2024 Creatinine [Mass/Vol] 0.72 mg/dL 0.70-1.[address] [facility] Serum globulin measurementOr dered By: Elisa Maldonado on 06-22-2024 Globulin (S) [Mass/Vol] 3.6 g/dL 2.2-4.2 [facility] Serum glucose measurement (m ass/volume)Ordered By: Elisa Maldonado on 06-22-2024 Glucose [Mass/Vol] 104 mg/dL High 70-99 [facility] Serum or plasma alanine curry otransferase (ALT) measurementOrdered By: Elisa Maldonado on 06-22-2024 ALT [Catalytic activity/Vol] 19 U/L <35 [facility] Serum or plasma albumin emily urement (mass/volume)Ordered By: Elisa Maldonado on 06-22-2024 Albumin [Mass/Vol] 3.2 g/dL Low 3.4-4.8 [facility] Serum or plasma albumin/glob ulin mass ratioOrdered By: Elisa Maldonado on 06-22-2024 Albumin/Globulin [Mass ratio] 0.9 {ratio} 0.9-2.4 [facility] Serum or plasma alkaline mago sphatase measurementOrdered By: Elisa Maldonado on 06-22-2024 ALP [Catalytic activity/Vol] 67 U/L 35-104 [facility] Serum or plasma calcium emily urement (mass/volume)Ordered By: Elisa Maldonado on 06-22-2024 Calcium [Mass/Vol] 9.7 mg/dL 7.6-11.0 [facility] Serum or plasma urea nitroge n measurement (mass/volume)Ordered By: Elisa Maldonado on 06-22-2024 Urea nitrogen [Mass/Vol] 28 mg/dL High 4-19 [facility] Sodium levelOrdered By: Elisa Maldonado on 06-22-2024 Sodium [Moles/Vol] 137 mmol/L 133-145 [facility] Total proteinOrdered By: Clif Maldonado on 06-22-2024 Protein [Mass/Vol] 6.8 g/dL 5.9-8.4 [facility] White blood cell (WBC) count Ordered By: Elisa Maldonado on 06-22-2024 WBC (Bld) [#/Vol] 8.9 10*3/uL 4.4-11.0 [facility] 36-MM-Zxryvmw DOrdered By: Shelia Maldonado on 05-21-2024 Vitamin D 25-Hydroxy 37.1 ng/mL [facility] Comment on above: Vitamin D 25(OH) Sta tus Range Deficiency <20 ng/mL (50nmol/L) Insufficiency 20 - 30 ng/mL (50 - 75 nmol/L) Sufficiency 30 - 100 ng/mL (75 - 250 nmol/L) Toxicity >100 ng/mL (>250 nmol/L) High density lipoprotein (HD L) measurementOrdered By: Elisa Maldonado on 05-21-2024 Cholesterol in HDL [Mass/Vol] 41 mg/dL >40 [facility] Comment on above: The drugs N-Acetylcy steine and Metamizole may falsely depress this assay. Reference Range HDL <40 mg/dL Low HDL Cholesterol HDL >or= 60 mg/dL High HDL Cholesterol Lipid Profileon 05-21-2024 Cholesterol [Mass/Vol] 96 mg/dL Normal 200 [facility] Comment on above: Order Comment: 120.1 Result Comment: <200 mg/dL Desirable 200-240 mg/dL Borderline >240 mg/dL High Risk Performed By: #### L 500.4100, L501.8100, L506.1000 #### [facility] [address] [place], [address] Cholesterol in HDL [Mass/Vol] 41 mg/dL Normal [facility] Comment on above: Order Comment: 120.1 Result Comment: The drugs N-Acetylcysteine and Metamizole may falsely depress this assay. Reference Range HDL <40 mg/dL Low HDL Cholesterol HDL >or= 60 mg/dL High HDL Cholesterol Performed By: #### L 500.4100, L501.8100, L506.1000 #### [facility] [address] [place], [address] Cholesterol in LDL [Mass/Vol] 12 mg/dL Normal 0-130 [facility] Comment on above: Order Comment: 120.1 Performed By: #### L 500.4100, L501.8100, L506.1000 #### [facility] [address] [place], [address] Cholesterol in VLDL [Mass/Vol] 43 mg/dL High 5-40 [facility] Comment on above: Order Comment: 120.1 Performed By: #### L 500.4100, L501.8100, L506.1000 #### [facility] [address] [place], [address] Triglyceride [Mass/Vol] 216 mg/dL High [facility] Comment on above: Order Comment: 120.1 Result Comment: The drugs N-Acetylcysteine and Metamizole may falsely depress this assay. Serum Triglycerides Reference Interval Normal <150 mg/dL Borderline high 150 - 199 mg/dL High 200 - 499 mg/dL Very High > or = 500 mg/dL Performed By: #### L 500.4100, L501.8100, L506.1000 #### [facility] [address] [place], [place], [id number] Low density lipoprotein (LDL ) cholesterol measurementOrdered By: Elisa Maldonado on 05-21-2024 Cholesterol in LDL [Mass/Vol] 12 mg/dL 0-130 [facility] Serum or plasma cholesterol measurement (mass/volume)Ordered By: Elisa Maldonado on 05-21-2024 Cholesterol [Mass/Vol] 96 mg/dL <200 [facility] Comment on above: <200 mg/dL Desirable 200-240 mg/dL Borderline >240 mg/dL High Risk Triglycerides measurementOrd ered By: Elisa Maldonado on 05-21-2024 Triglyceride [Mass/Vol] 216 mg/dL High <199 [facility] Comment on above: The drugs N-Acetylcy steine and Metamizole may falsely depress this assay.Serum Triglycerides Reference Interval Normal <150 mg/dL Borderline high 150 - 199 mg/dL High 200 - 499 mg/dL Very High > or = 500 mg/dL Valproate levelOrdered By: Shelia Maldonado on 05-21-2024 Valproic Acid (Depakene) Level 68 ug/mL 50-100 [facility] Valproic Acid (Depakene) Lev alpa 05-21-2024 VALPROIC ACID 68 ug/mL Normal 50-100 [facility] Comment on above: Order Comment: 120-1 Performed By: #### L 100.0500, L500.4050 #### [facility] [address] [place], [place], [id number] Very low density lipoprotein (VLDL) cholesterol measurementOrdered By: Elisa Maldonado on 05-21-2024 Very low density lipoprotein (VLDL) cholesterol measurement 43 mg/dL High 5-40 [facility] VLDL Cholesterol 43 mg/dL High 5-40 [facility] Vitamin D,25 Hydroxyon 05-21 Vitamin D 25-OH 37.1 ng/mL Normal [facility] Comment on above: Order Comment: 120-1 Result Comment: Debo min D 25(OH) Status Range Deficiency <20 ng/mL (50nmol/L) Insufficiency 20 - 30 ng/mL (50 - 75 nmol/L) Sufficiency 30 - 100 ng/mL (75 - 250 nmol/L) Toxicity >100 ng/mL (>250 nmol/L) Performed By: #### L 100.0500, L500.4050 #### [facility] [address] [place], [address] Albumin to globulin ratioOrd ered By: Elisa Maldonado on 04-20-2024 Albumin/Globulin [Mass ratio] 0.6 {ratio} Low 0.9-2.4 [facility] Bilirubin, totalOrdered By: Elisa Maldonado on 04-20-2024 Bilirubin [Mass/Vol] 0.30 mg/dL 0.20-1.00 [facility] Comment on above: For patients on eltr ombopag therapy, use of Dimension [place] TBIL is not recommended. Blood urea nitrogen (BUN)/cr eatinine ratioOrdered By: Elisa Maldonado on 04-20-2024 Urea nitrogen/Creatinine [Mass ratio] 30.5 mg/mg High 10-20 [facility] CBC-Complete Blood Cnt No Di ffon 04-20-2024 Erythrocyte distribution width (RBC) [Ratio] 14.4 % Normal 11.6-14.6 [facility] Comment on above: Order Comment: 120.1 Performed By: #### L 506.1000, L500.4050, L100.0500, L501.8100, L500.4100 #### [facility] [address] [place], [address] Hematocrit (Bld) [Volume fraction] 33.1 % Low 37-47 [facility] Comment on above: Order Comment: 120.1 Performed By: #### L 506.1000, L500.4050, L100.0500, L501.8100, L500.4100 #### [facility] [address] [place], [address] Hemoglobin (Bld) [Mass/Vol] 10.6 g/dL Low 12.0-15.0 [facility] Comment on above: Order Comment: 120.1 Performed By: #### L 506.1000, L500.4050, L100.0500, L501.8100, L500.4100 #### [facility] [address] [place], [address] MCH (RBC) [Entitic mass] 26.0 pg Low 27.0-32.0 [facility] Comment on above: Order Comment: 120.1 Performed By: #### L 506.1000, L500.4050, L100.0500, L501.8100, L500.4100 #### [facility] [address] [facility] [place], [address] MCHC (RBC) [Mass/Vol] 32.0 g/dL Normal 32-[address] [facility] Comment on above: Order Comment: 120.1 Performed By: #### L 506.1000, L500.4050, L100.0500, L501.8100, L500.4100 #### [facility] [address] [place], [address] MCV (RBC) [Entitic vol] 81.1 fL Normal 81-99 [facility] Comment on above: Order Comment: 120.1 Performed By: #### L 506.1000, L500.4050, L100.0500, L501.8100, L500.4100 #### [facility] [address] [place], [address] Platelet mean volume (Bld) [Entitic vol] 10.3 fL Normal 6.2-12.0 [facility] Comment on above: Order Comment: 120.1 Performed By: #### L 506.1000, L500.4050, L100.0500, L501.8100, L500.4100 #### [facility] [address] [place], [address] Platelets (Bld) [#/Vol] 308 10*3/uL Normal 150-450 [facility] Comment on above: Order Comment: 120.1 Performed By: #### L 506.1000, L500.4050, L100.0500, L501.8100, L500.4100 #### [facility] [address] [place], [address] RBC (Bld) [#/Vol] 4.08 10*6/uL Low 4.2-5.4 [facility] Comment on above: Order Comment: 120.1 Performed By: #### L 506.1000, L500.4050, L100.0500, L501.8100, L500.4100 #### [facility] [address] [place], [address] RDW SD 42.3 fl Normal 35.1-43.9 [facility] Comment on above: Order Comment: 120.1 Performed By: #### L 506.1000, L500.4050, L100.0500, L501.8100, L500.4100 #### [facility] [address] [place], [address] WBC (Bld) [#/Vol] 11.4 10*3/uL High 4.4-11.0 [facility] Comment on above: Order Comment: 120.1 Performed By: #### L 506.1000, L500.4050, L100.0500, L501.8100, L500.4100 #### [facility] [address] [place], [address] Carbon dioxide measurementOr dered By: Elisa Maldonado on 04-20-2024 CO2 [Moles/Vol] 28.0 mmol/L 21.0-32.0 [facility] Chloride measurementOrdered By: Elisa Maldonado on 04-20-2024 Chloride [Moles/Vol] 107 mmol/L 98-107 [facility] Comprehensive Metabolic Prof ilon 04-20-2024 Albumin [Mass/Vol] 2.8 g/dL Low 3.2-5.0 [facility] Comment on above: Order Comment: 120.1 Performed By: #### L 506.1000, L500.4050, L100.0500, L501.8100, L500.4100 #### [facility] [address] [place], [address] Albumin/Globulin [Mass ratio] 0.6 {ratio} Low 0.9-2.4 [facility] Comment on above: Order Comment: 120.1 Performed By: #### L 506.1000, L500.4050, L100.0500, L501.8100, L500.4100 #### [facility] [address] [place], [address] ALK P 64 U/L Normal 45-117 [facility] Comment on above: Order Comment: 120.1 Performed By: #### L 506.1000, L500.4050, L100.0500, L501.8100, L500.4100 #### [facility] [address] [place], [address] ALT [Catalytic activity/Vol] 17 U/L Normal 13-56 [facility] Comment on above: Order Comment: 120.1 Performed By: #### L 506.1000, L500.4050, L100.0500, L501.8100, L500.4100 #### [facility] [address] [place], [address] AST [Catalytic activity/Vol] 22 U/L Normal 15-37 [facility] Comment on above: Order Comment: 120.1 Performed By: #### L 506.1000, L500.4050, L100.0500, L501.8100, L500.4100 #### [facility] [address] [place], [address] Bilirubin [Mass/Vol] 0.30 mg/dL Normal 0.20-1.00 [facility] Comment on above: Order Comment: 120.1 Result Comment: For patients on eltrombopag therapy, use of Dimension [place] TBIL is not recommended. Performed By: #### L 506.1000, L500.4050, L100.0500, L501.8100, L500.4100 #### [facility] [address] [place], [address] BUN/CRE 30.5 RATIO High 10-20 [facility] Comment on above: Order Comment: 120.1 Performed By: #### L 506.1000, L500.4050, L100.0500, L501.8100, L500.4100 #### [facility] [address] [place], [address] CA,Total 9.6 mg/dL Normal 8.5-10.1 [facility] Comment on above: Order Comment: 120.1 Performed By: #### L 506.1000, L500.4050, L100.0500, L501.8100, L500.4100 #### [facility] [address] [place], [address] Chloride [Moles/Vol] 107 mmol/L Normal 98-107 [facility] Comment on above: Order Comment: 120.1 Performed By: #### L 506.1000, L500.4050, L100.0500, L501.8100, L500.4100 #### [facility] [address] [place], [address] CO2 [Moles/Vol] 28.0 mmol/L Normal 21.0-32.0 [facility] Comment on above: Order Comment: 120.1 Performed By: #### L 506.1000, L500.4050, L100.0500, L501.8100, L500.4100 #### [facility] [address] [place], [address] Creatinine [Mass/Vol] 0.75 mg/dL Normal 0.55-1.[address] [facility] Comment on above: Order Comment: 120.1 Result Comment: The validity of the calculated GFR GFRAA in patients over 70 years has not been determined. Clinical correlation is essential. Performed By: #### L 506.1000, L500.4050, L100.0500, L501.8100, L500.4100 #### [facility] [address] [place], [address] EST GFR - AA 98 mL/min Normal >60 [facility] Comment on above: Order Comment: 120.1 Result Comment: Afri can [place] GFR Calc Performed By: #### L 506.1000, L500.4050, L100.0500, L501.8100, L500.4100 #### [facility] [address] [place], [address] GAP 4 Low 5-15 [facility] Comment on above: Order Comment: 120.1 Performed By: #### L 506.1000, L500.4050, L100.0500, L501.8100, L500.4100 #### [facility] [address] [place], [address] GFR/1.73 sq M.predicted among non-blacks MDRD (S/P/Bld) [Vol rate/Area] 81 mL/min/{1.73_m2} Normal >60 [facility] Comment on above: Order Comment: 120.1 Result Comment: Non- GFR Calc Performed By: #### L 506.1000, L500.4050, L100.0500, L501.8100, L500.4100 #### [facility] [address] [place], [address] Globulin (S) [Mass/Vol] 4.4 g/dL High 2.2-4.2 [facility] Comment on above: Order Comment: 120.1 Performed By: #### L 506.1000, L500.4050, L100.0500, L501.8100, L500.4100 #### [facility] [address] [place], [address] Glucose [Mass/Vol] 101 mg/dL Normal 74-106 [facility] Comment on above: Order Comment: 120.1 Result Comment: Fast ing Glucose result from 100 to 125 mg/dL suggests IMPAIRED HOMEOSTASIS per A.D.A. criteria. Performed By: #### L 506.1000, L500.4050, L100.0500, L501.8100, L500.4100 #### [facility] [address] [place], [address] Potassium [Moles/Vol] 4.5 mmol/L Normal 3.5-5.[address] [facility] Comment on above: Order Comment: 120.1 Performed By: #### L 506.1000, L500.4050, L100.0500, L501.8100, L500.4100 #### [facility] [address] [place], [address] Sodium [Moles/Vol] 139 mmol/L Normal 136-145 [facility] Comment on above: Order Comment: 120.1 Performed By: #### L 506.1000, L500.4050, L100.0500, L501.8100, L500.4100 #### [facility] [address] [place], [address] T PROT 7.2 g/dL Normal 6.4-8.2 [facility] Comment on above: Order Comment: 120.1 Performed By: #### L 506.1000, L500.4050, L100.0500, L501.8100, L500.4100 #### [facility] [address] [place], [address] Urea nitrogen [Mass/Vol] 23 mg/dL High 7-18 [facility] Comment on above: Order Comment: 120.1 Performed By: #### L 506.1000, L500.4050, L100.0500, L501.8100, L500.4100 #### [facility] [address] [place], [address] Erythrocyte distribution wid th (RBC) [Ratio]Ordered By: Elisa Maldonado on 04-20-2024 Erythrocyte distribution width (RBC) [Entitic vol] 42.3 fL 35.1-43.9 [facility] Erythrocyte distribution wid th ratioOrdered By: Elisa Maldonado on 04-20-2024 Erythrocyte distribution width (RBC) [Ratio] 14.4 % 11.6-14.6 [facility] Estimated glomerular filtrat ion rate (GFR) AmericanOrdered By: Elisa Maldonado on 04-20-2024 Estimated GFR (MDRD) Amer 98 mL/min >60 [facility] Comment on above: GFR Calc Glomerular filtration rate ( GFR) estimationOrdered By: Elisa Maldonado on 04-20-2024 Estimated GFR (MDRD) Non-Af Amer 81 mL/min >60 [facility] Comment on above: Non- GFR Calc Glucose measurementOrdered B y: Elisa Maldonado on 04-20-2024 Glucose [Mass/Vol] 101 mg/dL 74-106 [facility] Comment on above: Fasting Glucose resu lt from 100 to 125 mg/dL suggests IMPAIRED HOMEOSTASIS per A.D.A. criteria. Hematocrit Auto (Bld) [Volum e fraction]Ordered By: Elisa Maldonado on 04-20-2024 Hematocrit (Bld) [Volume fraction] 33.1 % Low 37-47 [facility] Hemoglobin measurementOrdere d By: Elisa Maldonado on 04-20-2024 Hemoglobin (Bld) [Mass/Vol] 10.6 g/dL Low 12.0-15.0 [facility] - Chemistry and C hemistry - challengeOrdered By: Elisa Maldonado on 04-20-2024 AST [Catalytic activity/Vol] 22 U/L 15-37 [facility] MCV (mean corpuscular volume ) determinationOrdered By: Elisa Maldonado on 04-20-2024 MCV (RBC) [Entitic vol] 81.1 fL 81-99 [facility] Mean corpuscular hemoglobin (MCH) determinationOrdered By: Elisa Maldonado on 04-20-2024 MCH (RBC) [Entitic mass] 26.0 pg Low 27.0-32.0 [facility] Mean corpuscular hemoglobin concentration (MCHC) determinationOrdered By: Elisa Maldonado on 04-20-2024 MCHC (RBC) [Mass/Vol] 32.0 g/dL 32-[address] [facility] Mean platelet volume determi nationOrdered By: Elisa Maldonado on 04-20-2024 Platelet mean volume (Bld) [Entitic vol] 10.3 fL 6.2-12.0 [facility] Platelet countOrdered By: Lanette Maldonado on 04-20-2024 Platelets (Bld) [#/Vol] 308 10*3/uL 150-450 [facility] Potassium measurementOrdered By: Elisa Maldonado on 04-20-2024 Potassium [Moles/Vol] 4.5 mmol/L 3.5-5.[address] [facility] RBC Auto (Bld) [#/Vol]Ordere d By: Elisa Maldonado on 04-20-2024 RBC (Bld) [#/Vol] 4.08 10*6/uL Low 4.2-5.4 [facility] Serum anion gap measurementO rdered By: Elisa Maldonado on 04-20-2024 Anion gap [Moles/Vol] 4 mmol/L Low 5-[address] [facility] Serum globulin measurementOr dered By: Elisa Maldonado on 04-20-2024 Globulin (S) [Mass/Vol] 4.4 g/dL High 2.2-4.2 [facility] Serum or plasma alanine curry otransferase (ALT) measurementOrdered By: Elisa Maldonado on 04-20-2024 ALT [Catalytic activity/Vol] 17 U/L 13-56 [facility] Serum or plasma albumin emily urement (mass/volume)Ordered By: Elisa Maldonado on 04-20-2024 Albumin [Mass/Vol] 2.8 g/dL Low 3.2-5.0 [facility] Serum or plasma alkaline mago sphatase measurementOrdered By: Elisa Maldonado on 04-20-2024 ALP [Catalytic activity/Vol] 64 U/L 45-117 [facility] Serum or plasma calcium emily urement (mass/volume)Ordered By: Elisa Maldonado on 04-20-2024 Calcium [Mass/Vol] 9.6 mg/dL 8.5-10.1 [facility] Serum or plasma creatinine m easurement (mass/volume)Ordered By: Elisa Maldonado on 04-20-2024 Creatinine [Mass/Vol] 0.75 mg/dL 0.55-1.[address] [facility] Comment on above: The validity of the calculated GFR & GFRAA in patients over 70 years has not been determined. Clinical correlation is essential. Serum or plasma urea nitroge n measurement (mass/volume)Ordered By: Elisa Maldonado on 04-20-2024 Urea nitrogen [Mass/Vol] 23 mg/dL High 7-18 [facility] Sodium levelOrdered By: Elisa Maldonado on 04-20-2024 Sodium [Moles/Vol] 139 mmol/L 136-145 [facility] Total proteinOrdered By: Clif Maldonado on 04-20-2024 Protein [Mass/Vol] 7.2 g/dL 6.4-8.2 [facility] White blood cell (WBC) count Ordered By: Elisa Maldonado on 04-20-2024 WBC (Bld) [#/Vol] 11.4 10*3/uL High 4.4-11.0 [facility] Ammoniaon 03-05-2024 Ammonia (P) [Moles/Vol] 36.0 umol/L High 11-32 [facility] Comment on above: Order Comment: 120.1 Performed By: #### L 506.1000, L500.4050, L100.0500, L501.8100, L500.4100 #### [facility] [address] [place], [place], [id number] Comprehensive Metabolic Prof ilon 03-05-2024 Albumin [Mass/Vol] 3.0 g/dL Low 3.2-5.0 [facility] Comment on above: Order Comment: 120.1 Performed By: #### L 506.1000, L500.4050, L100.0500, L501.8100, L500.4100 #### [facility] [address] [place], [address] Albumin/Globulin [Mass ratio] 0.6 {ratio} Low 0.9-2.4 [facility] Comment on above: Order Comment: 120.1 Performed By: #### L 506.1000, L500.4050, L100.0500, L501.8100, L500.4100 #### [facility] [address] [place], [address] ALK P 73 U/L Normal 45-117 [facility] Comment on above: Order Comment: 120.1 Performed By: #### L 506.1000, L500.4050, L100.0500, L501.8100, L500.4100 #### [facility] [address] [place], [address] ALT [Catalytic activity/Vol] 21 U/L Normal 13-56 [facility] Comment on above: Order Comment: 120.1 Performed By: #### L 506.1000, L500.4050, L100.0500, L501.8100, L500.4100 #### [facility] [address] [place], [address] AST [Catalytic activity/Vol] 34 U/L Normal 15-37 [facility] Comment on above: Order Comment: 120.1 Performed By: #### L 506.1000, L500.4050, L100.0500, L501.8100, L500.4100 #### [facility] [address] [place], [address] Bilirubin [Mass/Vol] 0.20 mg/dL Normal 0.20-1.00 [facility] Comment on above: Order Comment: 120.1 Result Comment: For patients on eltrombopag therapy, use of Dimension [place] TBIL is not recommended. Performed By: #### L 506.1000, L500.4050, L100.0500, L501.8100, L500.4100 #### [facility] [address] [place], [address] BUN/CRE 26.5 RATIO High 10-20 [facility] Comment on above: Order Comment: 120.1 Performed By: #### L 506.1000, L500.4050, L100.0500, L501.8100, L500.4100 #### [facility] [address] [place], [address] CA,Total 9.6 mg/dL Normal 8.5-10.1 [facility] Comment on above: Order Comment: 120.1 Performed By: #### L 506.1000, L500.4050, L100.0500, L501.8100, L500.4100 #### [facility] [address] [place], [address] Chloride [Moles/Vol] 109 mmol/L High 98-107 [facility] Comment on above: Order Comment: 120.1 Performed By: #### L 506.1000, L500.4050, L100.0500, L501.8100, L500.4100 #### [facility] [address] [place], [address] CO2 [Moles/Vol] 26.0 mmol/L Normal 21.0-32.0 [facility] Comment on above: Order Comment: 120.1 Performed By: #### L 506.1000, L500.4050, L100.0500, L501.8100, L500.4100 #### [facility] [address] [place], [address] Creatinine [Mass/Vol] 0.79 mg/dL Normal 0.55-1.[address] [facility] Comment on above: Order Comment: 120.1 Result Comment: The validity of the calculated GFR GFRAA in patients over 70 years has not been determined. Clinical correlation is essential. Performed By: #### L 506.1000, L500.4050, L100.0500, L501.8100, L500.4100 #### [facility] [address] [place], [address] EST GFR - AA 93 mL/min Normal >60 [facility] Comment on above: Order Comment: 120.1 Result Comment: Afri can Swedish GFR Calc Performed By: #### L 506.1000, L500.4050, L100.0500, L501.8100, L500.4100 #### [facility] [address] [place], [address] GAP 6 Normal 5-15 [facility] Comment on above: Order Comment: 120.1 Performed By: #### L 506.1000, L500.4050, L100.0500, L501.8100, L500.4100 #### [facility] [address] [place], [address] GFR/1.73 sq M.predicted among non-blacks MDRD (S/P/Bld) [Vol rate/Area] 77 mL/min/{1.73_m2} Normal >60 [facility] Comment on above: Order Comment: 120.1 Result Comment: Non- GFR Calc Performed By: #### L 506.1000, L500.4050, L100.0500, L501.8100, L500.4100 #### [facility] [address] [place], [address] Globulin (S) [Mass/Vol] 4.7 g/dL High 2.2-4.2 [facility] Comment on above: Order Comment: 120.1 Performed By: #### L 506.1000, L500.4050, L100.0500, L501.8100, L500.4100 #### [facility] [address] [place], [address] Glucose [Mass/Vol] 94 mg/dL Normal 74-106 [facility] Comment on above: Order Comment: 120.1 Performed By: #### L 506.1000, L500.4050, L100.0500, L501.8100, L500.4100 #### [facility] [address] [place], [address] Potassium [Moles/Vol] 4.1 mmol/L Normal 3.5-5.[address] [facility] Comment on above: Order Comment: 120.1 Performed By: #### L 506.1000, L500.4050, L100.0500, L501.8100, L500.4100 #### [facility] [address] [place], [address] Sodium [Moles/Vol] 140 mmol/L Normal 136-145 [facility] Comment on above: Order Comment: 120.1 Performed By: #### L 506.1000, L500.4050, L100.0500, L501.8100, L500.4100 #### [facility] [address] [place], [address] T PROT 7.7 g/dL Normal 6.4-8.2 [facility] Comment on above: Order Comment: 120.1 Performed By: #### L 506.1000, L500.4050, L100.0500, L501.8100, L500.4100 #### [facility] [address] [place], [address] Urea nitrogen [Mass/Vol] 21 mg/dL High 7-18 [facility] Comment on above: Order Comment: 120.1 Performed By: #### L 506.1000, L500.4050, L100.0500, L501.8100, L500.4100 #### [facility] [address] [place], [address] Valproic Acid (Depakene) Lev alpa 03-05-2024 VALPROIC ACID 89 ug/mL Normal 50-100 [facility] Comment on above: Order Comment: 120.1 Performed By: #### L 506.1000, L500.4050, L100.0500, L501.8100, L500.4100 #### [facility] [address] [place], [address] CBC-Complete Blood Cnt No Di ffon 02-19-2024 Erythrocyte distribution width (RBC) [Ratio] 13.9 % Normal 11.6-14.6 [facility] Comment on above: Order Comment: 120.1 Performed By: #### L 506.1000, L500.4050, L100.0500, L501.8100, L500.4100 #### [facility] [address] [place], [address] Hematocrit (Bld) [Volume fraction] 30.2 % Low 37-47 [facility] Comment on above: Order Comment: 120.1 Performed By: #### L 506.1000, L500.4050, L100.0500, L501.8100, L500.4100 #### [facility] [address] [place], [address] Hemoglobin (Bld) [Mass/Vol] 9.4 g/dL Low 12.0-15.0 [facility] Comment on above: Order Comment: 120.1 Performed By: #### L 506.1000, L500.4050, L100.0500, L501.8100, L500.4100 #### [facility] [address] [place], [address] MCH (RBC) [Entitic mass] 26.2 pg Low 27.0-32.0 [facility] Comment on above: Order Comment: 120.1 Performed By: #### L 506.1000, L500.4050, L100.0500, L501.8100, L500.4100 #### [facility] [address] [place], [address] MCHC (RBC) [Mass/Vol] 31.1 g/dL Low 32-[address] [facility] Comment on above: Order Comment: 120.1 Performed By: #### L 506.1000, L500.4050, L100.0500, L501.8100, L500.4100 #### [facility] [address] [place], [address] MCV (RBC) [Entitic vol] 84.1 fL Normal 81-99 [facility] Comment on above: Order Comment: 120.1 Performed By: #### L 506.1000, L500.4050, L100.0500, L501.8100, L500.4100 #### [facility] [address] [place], [address] Platelet mean volume (Bld) [Entitic vol] 9.7 fL Normal 6.2-12.0 [facility] Comment on above: Order Comment: 120.1 Performed By: #### L 506.1000, L500.4050, L100.0500, L501.8100, L500.4100 #### [facility] [address] [place], [address] Platelets (Bld) [#/Vol] 312 10*3/uL Normal 150-450 [facility] Comment on above: Order Comment: 120.1 Performed By: #### L 506.1000, L500.4050, L100.0500, L501.8100, L500.4100 #### [facility] [address] [place], [address] RBC (Bld) [#/Vol] 3.59 10*6/uL Low 4.2-5.4 [facility] Comment on above: Order Comment: 120.1 Performed By: #### L 506.1000, L500.4050, L100.0500, L501.8100, L500.4100 #### [facility] [address] [place], [address] RDW SD 43.2 fl Normal 35.1-43.9 [facility] Comment on above: Order Comment: 120.1 Performed By: #### L 506.1000, L500.4050, L100.0500, L501.8100, L500.4100 #### [facility] [address] [place], [address] WBC (Bld) [#/Vol] 10.1 10*3/uL Normal 4.4-11.0 [facility] Comment on above: Order Comment: 120.1 Performed By: #### L 506.1000, L500.4050, L100.0500, L501.8100, L500.4100 #### [facility] [address] [place], [address] Comprehensive Metabolic Prof ilon 02-19-2024 Albumin [Mass/Vol] 2.7 g/dL Low 3.2-5.0 [facility] Comment on above: Order Comment: 120.1 Performed By: #### L 506.1000, L500.4050, L100.0500, L501.8100, L500.4100 #### [facility] [address] [place], [address] Albumin/Globulin [Mass ratio] 0.7 {ratio} Low 0.9-2.4 [facility] Comment on above: Order Comment: 120.1 Performed By: #### L 506.1000, L500.4050, L100.0500, L501.8100, L500.4100 #### [facility] [address] [place], [address] ALK P 73 U/L Normal 45-117 [facility] Comment on above: Order Comment: 120.1 Performed By: #### L 506.1000, L500.4050, L100.0500, L501.8100, L500.4100 #### [facility] [address] [place], [address] ALT [Catalytic activity/Vol] 22 U/L Normal 13-56 [facility] Comment on above: Order Comment: 120.1 Performed By: #### L 506.1000, L500.4050, L100.0500, L501.8100, L500.4100 #### [facility] [address] [place], [address] AST [Catalytic activity/Vol] 24 U/L Normal 15-37 [facility] Comment on above: Order Comment: 120.1 Performed By: #### L 506.1000, L500.4050, L100.0500, L501.8100, L500.4100 #### [facility] [address] [place], [address] Bilirubin [Mass/Vol] 0.20 mg/dL Normal 0.20-1.00 [facility] Comment on above: Order Comment: 120.1 Result Comment: For patients on eltrombopag therapy, use of Dimension [place] TBIL is not recommended. Performed By: #### L 506.1000, L500.4050, L100.0500, L501.8100, L500.4100 #### [facility] [address] [place], [address] BUN/CRE 33.3 RATIO High 10-20 [facility] Comment on above: Order Comment: 120.1 Performed By: #### L 506.1000, L500.4050, L100.0500, L501.8100, L500.4100 #### [facility] [address] [place], [address] CA,Total 9.0 mg/dL Normal 8.5-10.1 [facility] Comment on above: Order Comment: 120.1 Performed By: #### L 506.1000, L500.4050, L100.0500, L501.8100, L500.4100 #### [facility] [address] [place], [address] Chloride [Moles/Vol] 109 mmol/L High 98-107 [facility] Comment on above: Order Comment: 120.1 Performed By: #### L 506.1000, L500.4050, L100.0500, L501.8100, L500.4100 #### [facility] [address] [place], [address] CO2 [Moles/Vol] 27.0 mmol/L Normal 21.0-32.0 [facility] Comment on above: Order Comment: 120.1 Performed By: #### L 506.1000, L500.4050, L100.0500, L501.8100, L500.4100 #### [facility] [address] [place], [address] Creatinine [Mass/Vol] 0.75 mg/dL Normal 0.55-1.[address] [facility] Comment on above: Order Comment: 120.1 Result Comment: The validity of the calculated GFR GFRAA in patients over 70 years has not been determined. Clinical correlation is essential. Performed By: #### L 506.1000, L500.4050, L100.0500, L501.8100, L500.4100 #### [facility] [address] [place], [address] EST GFR - AA 99 mL/min Normal >60 [facility] Comment on above: Order Comment: 120.1 Result Comment: Afri can Swedish GFR Calc Performed By: #### L 506.1000, L500.4050, L100.0500, L501.8100, L500.4100 #### [facility] [address] [place], [address] GAP 4 Low 5-15 [facility] Comment on above: Order Comment: 120.1 Performed By: #### L 506.1000, L500.4050, L100.0500, L501.8100, L500.4100 #### [facility] [address] [place], [address] GFR/1.73 sq M.predicted among non-blacks MDRD (S/P/Bld) [Vol rate/Area] 82 mL/min/{1.73_m2} Normal >60 [facility] Comment on above: Order Comment: 120.1 Result Comment: Non- GFR Calc Performed By: #### L 506.1000, L500.4050, L100.0500, L501.8100, L500.4100 #### [facility] [address] [place], [address] Globulin (S) [Mass/Vol] 4.1 g/dL Normal 2.2-4.2 [facility] Comment on above: Order Comment: 120.1 Performed By: #### L 506.1000, L500.4050, L100.0500, L501.8100, L500.4100 #### [facility] [address] [place], [address] Glucose [Mass/Vol] 96 mg/dL Normal 74-106 [facility] Comment on above: Order Comment: 120.1 Performed By: #### L 506.1000, L500.4050, L100.0500, L501.8100, L500.4100 #### [facility] [address] [place], [address] Potassium [Moles/Vol] 4.2 mmol/L Normal 3.5-5.[address] [facility] Comment on above: Order Comment: 120.1 Performed By: #### L 506.1000, L500.4050, L100.0500, L501.8100, L500.4100 #### [facility] [address] [place], [address] Sodium [Moles/Vol] 140 mmol/L Normal 136-145 [facility] Comment on above: Order Comment: 120.1 Performed By: #### L 506.1000, L500.4050, L100.0500, L501.8100, L500.4100 #### [facility] [address] [place], [address] T PROT 6.8 g/dL Normal 6.4-8.2 [facility] Comment on above: Order Comment: 120.1 Performed By: #### L 506.1000, L500.4050, L100.0500, L501.8100, L500.4100 #### [facility] [address] [place], [address] Urea nitrogen [Mass/Vol] 25 mg/dL High 7-18 [facility] Comment on above: Order Comment: 120.1 Performed By: #### L 506.1000, L500.4050, L100.0500, L501.8100, L500.4100 #### [facility] [address] [place], [address] CBC-Complete Blood Cnt No Di ffon 01-20-2024 Erythrocyte distribution width (RBC) [Ratio] 13.6 % Normal 11.6-14.6 [facility] Comment on above: Order Comment: 120.1 Performed By: #### L 506.1000, L500.4050, L100.0500, L501.8100, L500.4100 #### [facility] [address] [place], [address] Hematocrit (Bld) [Volume fraction] 30.3 % Low 37-47 [facility] Comment on above: Order Comment: 120.1 Performed By: #### L 506.1000, L500.4050, L100.0500, L501.8100, L500.4100 #### [facility] [address] [place], [address] Hemoglobin (Bld) [Mass/Vol] 9.7 g/dL Low 12.0-15.0 [facility] Comment on above: Order Comment: 120.1 Performed By: #### L 506.1000, L500.4050, L100.0500, L501.8100, L500.4100 #### [facility] [address] [place], [address] MCH (RBC) [Entitic mass] 27.4 pg Normal 27.0-32.0 [facility] Comment on above: Order Comment: 120.1 Performed By: #### L 506.1000, L500.4050, L100.0500, L501.8100, L500.4100 #### [facility] [address] [place], [address] MCHC (RBC) [Mass/Vol] 32.0 g/dL Normal 32-[address] [facility] Comment on above: Order Comment: 120.1 Performed By: #### L 506.1000, L500.4050, L100.0500, L501.8100, L500.4100 #### [facility] [address] [place], [address] MCV (RBC) [Entitic vol] 85.6 fL Normal 81-99 [facility] Comment on above: Order Comment: 120.1 Performed By: #### L 506.1000, L500.4050, L100.0500, L501.8100, L500.4100 #### [facility] [address] [place], [address] Platelet mean volume (Bld) [Entitic vol] 10.0 fL Normal 6.2-12.0 [facility] Comment on above: Order Comment: 120.1 Performed By: #### L 506.1000, L500.4050, L100.0500, L501.8100, L500.4100 #### [facility] [address] [place], [address] Platelets (Bld) [#/Vol] 318 10*3/uL Normal 150-450 [facility] Comment on above: Order Comment: 120.1 Performed By: #### L 506.1000, L500.4050, L100.0500, L501.8100, L500.4100 #### [facility] [address] [place], [address] RBC (Bld) [#/Vol] 3.54 10*6/uL Low 4.2-5.4 [facility] Comment on above: Order Comment: 120.1 Performed By: #### L 506.1000, L500.4050, L100.0500, L501.8100, L500.4100 #### [facility] [address] [place], [address] RDW SD 42.8 fl Normal 35.1-43.9 [facility] Comment on above: Order Comment: 120.1 Performed By: #### L 506.1000, L500.4050, L100.0500, L501.8100, L500.4100 #### [facility] [address] [place], [address] WBC (Bld) [#/Vol] 10.4 10*3/uL Normal 4.4-11.0 [facility] Comment on above: Order Comment: 120.1 Performed By: #### L 506.1000, L500.4050, L100.0500, L501.8100, L500.4100 #### [facility] [address] [place], [address] Comprehensive Metabolic Prof waon 01-20-2024 Albumin [Mass/Vol] 2.6 g/dL Low 3.2-5.0 [facility] Comment on above: Order Comment: 120.1 Performed By: #### L 506.1000, L500.4050, L100.0500, L501.8100, L500.4100 #### [facility] [address] [place], [address] Albumin/Globulin [Mass ratio] 0.6 {ratio} Low 0.9-2.4 [facility] Comment on above: Order Comment: 120.1 Performed By: #### L 506.1000, L500.4050, L100.0500, L501.8100, L500.4100 #### [facility] [address] [place], [address] ALK P 67 U/L Normal 45-117 [facility] Comment on above: Order Comment: 120.1 Performed By: #### L 506.1000, L500.4050, L100.0500, L501.8100, L500.4100 #### [facility] [address] [place], [address] ALT [Catalytic activity/Vol] 13 U/L Normal 13-56 [facility] Comment on above: Order Comment: 120.1 Performed By: #### L 506.1000, L500.4050, L100.0500, L501.8100, L500.4100 #### [facility] [address] [place], [address] AST [Catalytic activity/Vol] 23 U/L Normal 15-37 [facility] Comment on above: Order Comment: 120.1 Performed By: #### L 506.1000, L500.4050, L100.0500, L501.8100, L500.4100 #### [facility] [address] [place], [address] Bilirubin [Mass/Vol] 0.20 mg/dL Normal 0.20-1.00 [facility] Comment on above: Order Comment: 120.1 Result Comment: For patients on eltrombopag therapy, use of Dimension [place] TBIL is not recommended. Performed By: #### L 506.1000, L500.4050, L100.0500, L501.8100, L500.4100 #### [facility] [address] [place], [address] BUN/CRE 29.2 RATIO High 10-20 [facility] Comment on above: Order Comment: 120.1 Performed By: #### L 506.1000, L500.4050, L100.0500, L501.8100, L500.4100 #### [facility] [address] [place], [address] CA,Total 10.2 mg/dL High 8.5-10.1 [facility] Comment on above: Order Comment: 120.1 Performed By: #### L 506.1000, L500.4050, L100.0500, L501.8100, L500.4100 #### [facility] [address] [place], [address] Chloride [Moles/Vol] 106 mmol/L Normal 98-107 [facility] Comment on above: Order Comment: 120.1 Performed By: #### L 506.1000, L500.4050, L100.0500, L501.8100, L500.4100 #### [facility] [address] [place], [address] CO2 [Moles/Vol] 27.0 mmol/L Normal 21.0-32.0 [facility] Comment on above: Order Comment: 120.1 Performed By: #### L 506.1000, L500.4050, L100.0500, L501.8100, L500.4100 #### [facility] [address] [place], [address] Creatinine [Mass/Vol] 0.72 mg/dL Normal 0.55-1.[address] [facility] Comment on above: Order Comment: 120.1 Result Comment: The validity of the calculated GFR GFRAA in patients over 70 years has not been determined. Clinical correlation is essential. Performed By: #### L 506.1000, L500.4050, L100.0500, L501.8100, L500.4100 #### [facility] [address] [place], [address] EST GFR - AA 104 mL/min Normal >60 [facility] Comment on above: Order Comment: 120.1 Result Comment: Afri can Swedish GFR Calc Performed By: #### L 506.1000, L500.4050, L100.0500, L501.8100, L500.4100 #### [facility] [address] [place], [address] GAP 7 Normal 5-15 [facility] Comment on above: Order Comment: 120.1 Performed By: #### L 506.1000, L500.4050, L100.0500, L501.8100, L500.4100 #### [facility] [address] [place], [address] GFR/1.73 sq M.predicted among non-blacks MDRD (S/P/Bld) [Vol rate/Area] 86 mL/min/{1.73_m2} Normal >60 [facility] Comment on above: Order Comment: 120.1 Result Comment: Non- GFR Calc Performed By: #### L 506.1000, L500.4050, L100.0500, L501.8100, L500.4100 #### [facility] [address] [place], [address] Globulin (S) [Mass/Vol] 4.3 g/dL High 2.2-4.2 [facility] Comment on above: Order Comment: 120.1 Performed By: #### L 506.1000, L500.4050, L100.0500, L501.8100, L500.4100 #### [facility] [address] [place], [address] Glucose [Mass/Vol] 93 mg/dL Normal 74-106 [facility] Comment on above: Order Comment: 120.1 Performed By: #### L 506.1000, L500.4050, L100.0500, L501.8100, L500.4100 #### [facility] [address] [place], [address] Potassium [Moles/Vol] 4.2 mmol/L Normal 3.5-5.[address] [facility] Comment on above: Order Comment: 120.1 Performed By: #### L 506.1000, L500.4050, L100.0500, L501.8100, L500.4100 #### [facility] [address] [place], [address] Sodium [Moles/Vol] 140 mmol/L Normal 136-145 [facility] Comment on above: Order Comment: 120.1 Performed By: #### L 506.1000, L500.4050, L100.0500, L501.8100, L500.4100 #### [facility] [address] [place], [address] T PROT 6.9 g/dL Normal 6.4-8.2 [facility] Comment on above: Order Comment: 120.1 Performed By: #### L 506.1000, L500.4050, L100.0500, L501.8100, L500.4100 #### [facility] [address] [place], [address] Urea nitrogen [Mass/Vol] 21 mg/dL High 7-18 [facility] Comment on above: Order Comment: 120.1 Performed By: #### L 506.1000, L500.4050, L100.0500, L501.8100, L500.4100 #### [facility] [address] [place], [address] Ammoniaon 01-02-2024 Ammonia (P) [Moles/Vol] 18.0 umol/L Normal 11-32 [facility] Comment on above: Order Comment: 120.1 Performed By: #### L 506.1000, L500.4050, L100.0500, L501.8100, L500.4100 #### [facility] [address] [place], [address] CBC W/Diff, Automatedon 12-14 Absolute Lymph 3.19 X10 3/uL Normal 0.83-4.51 [facility] Comment on above: Order Comment: 120.1 Performed By: #### L 506.1000, L500.4050, L100.0500, L501.8100, L500.4100 #### [facility] [address] [place], [address] Absolute Neut 8.5 X10 3/uL High 2.0-7.7 [facility] Comment on above: Order Comment: 120.1 Performed By: #### L 506.1000, L500.4050, L100.0500, L501.8100, L500.4100 #### [facility] [address] [place], [address] Basophils/100 WBC (Bld) 0.5 % Normal 0-1 [facility] Comment on above: Order Comment: 120.1 Performed By: #### L 506.1000, L500.4050, L100.0500, L501.8100, L500.4100 #### [facility] [address] [place], [address] Eosinophils/100 WBC (Bld) 2.4 % Normal 0-5 [facility] Comment on above: Order Comment: 120.1 Performed By: #### L 506.1000, L500.4050, L100.0500, L501.8100, L500.4100 #### [facility] [address] [place], [address] Erythrocyte distribution width (RBC) [Ratio] 13.7 % Normal 11.6-14.6 [facility] Comment on above: Order Comment: 120.1 Performed By: #### L 506.1000, L500.4050, L100.0500, L501.8100, L500.4100 #### [facility] [address] [place], [address] Hematocrit (Bld) [Volume fraction] 33.3 % Low 37-47 [facility] Comment on above: Order Comment: 120.1 Performed By: #### L 506.1000, L500.4050, L100.0500, L501.8100, L500.4100 #### [facility] [address] [place], [address] Hemoglobin (Bld) [Mass/Vol] 10.6 g/dL Low 12.0-15.0 [facility] Comment on above: Order Comment: 120.1 Performed By: #### L 506.1000, L500.4050, L100.0500, L501.8100, L500.4100 #### [facility] [address] [place], [address] IG% 0.500 Normal 0.0-0.9 [facility] Comment on above: Order Comment: 120.1 Result Comment: IG% - Immature Granulocytes (promyelocytes, myelocytes and metamyelocytes) > 1% indicates that a LEFT SHIFT is Present. Performed By: #### L 506.1000, L500.4050, L100.0500, L501.8100, L500.4100 #### [facility] [address] [place], [address] Lymphocytes/100 WBC (Bld) 24.2 % Normal 19-41 [facility] Comment on above: Order Comment: 120.1 Performed By: #### L 506.1000, L500.4050, L100.0500, L501.8100, L500.4100 #### [facility] [address] [place], [address] MCH (RBC) [Entitic mass] 27.2 pg Normal 27.0-32.0 [facility] Comment on above: Order Comment: 120.1 Performed By: #### L 506.1000, L500.4050, L100.0500, L501.8100, L500.4100 #### [facility] [address] [place], [address] MCHC (RBC) [Mass/Vol] 31.8 g/dL Low 32-[address] [facility] Comment on above: Order Comment: 120.1 Performed By: #### L 506.1000, L500.4050, L100.0500, L501.8100, L500.4100 #### [facility] [address] [place], [address] MCV (RBC) [Entitic vol] 85.6 fL Normal 81-99 [facility] Comment on above: Order Comment: 120.1 Performed By: #### L 506.1000, L500.4050, L100.0500, L501.8100, L500.4100 #### [facility] [address] [place], [address] Monocytes/100 WBC (Bld) 7.4 % Normal 0-10 [facility] Comment on above: Order Comment: 120.1 Performed By: #### L 506.1000, L500.4050, L100.0500, L501.8100, L500.4100 #### [facility] [address] [place], [address] Neutrophils/100 WBC (Bld) 65.0 % Normal 47-70 [facility] Comment on above: Order Comment: 120.1 Performed By: #### L 506.1000, L500.4050, L100.0500, L501.8100, L500.4100 #### [facility] [address] [place], [address] Nucleated RBC (Bld) [#/Vol] 0 10*3/uL Normal 0-5 [facility] Comment on above: Order Comment: 120.1 Performed By: #### L 506.1000, L500.4050, L100.0500, L501.8100, L500.4100 #### [facility] [address] [place], [address] Platelet mean volume (Bld) [Entitic vol] 10.1 fL Normal 6.2-12.0 [facility] Comment on above: Order Comment: 120.1 Performed By: #### L 506.1000, L500.4050, L100.0500, L501.8100, L500.4100 #### [facility] [address] [place], [address] Platelets (Bld) [#/Vol] 290 10*3/uL Normal 150-450 [facility] Comment on above: Order Comment: 120.1 Performed By: #### L 506.1000, L500.4050, L100.0500, L501.8100, L500.4100 #### [facility] [address] [place], [address] RBC (Bld) [#/Vol] 3.89 10*6/uL Low 4.2-5.4 [facility] Comment on above: Order Comment: 120.1 Performed By: #### L 506.1000, L500.4050, L100.0500, L501.8100, L500.4100 #### [facility] [address] [place], [address] RDW SD 42.4 fl Normal 35.1-43.9 [facility] Comment on above: Order Comment: 120.1 Performed By: #### L 506.1000, L500.4050, L100.0500, L501.8100, L500.4100 #### [facility] [address] [place], [address] WBC (Bld) [#/Vol] 13.2 10*3/uL High 4.4-11.0 [facility] Comment on above: Order Comment: 120.1 Performed By: #### L 506.1000, L500.4050, L100.0500, L501.8100, L500.4100 #### [facility] [address] [place], [address] Comprehensive Metabolic Prof ilon 01-02-2024 Albumin [Mass/Vol] 2.9 g/dL Low 3.2-5.0 [facility] Comment on above: Order Comment: 120.1 Performed By: #### L 506.1000, L500.4050, L100.0500, L501.8100, L500.4100 #### [facility] [address] [place], [address] Albumin/Globulin [Mass ratio] 0.6 {ratio} Low 0.9-2.4 [facility] Comment on above: Order Comment: 120.1 Performed By: #### L 506.1000, L500.4050, L100.0500, L501.8100, L500.4100 #### [facility] [address] [place], [address] ALK P 80 U/L Normal 45-117 [facility] Comment on above: Order Comment: 120.1 Performed By: #### L 506.1000, L500.4050, L100.0500, L501.8100, L500.4100 #### [facility] [address] [place], [address] ALT [Catalytic activity/Vol] 18 U/L Normal 13-56 [facility] Comment on above: Order Comment: 120.1 Performed By: #### L 506.1000, L500.4050, L100.0500, L501.8100, L500.4100 #### [facility] [address] [place], [address] AST [Catalytic activity/Vol] 21 U/L Normal 15-37 [facility] Comment on above: Order Comment: 120.1 Performed By: #### L 506.1000, L500.4050, L100.0500, L501.8100, L500.4100 #### [facility] [address] [place], [address] Bilirubin [Mass/Vol] 0.20 mg/dL Normal 0.20-1.00 [facility] Comment on above: Order Comment: 120.1 Result Comment: For patients on eltrombopag therapy, use of Dimension [place] TBIL is not recommended. Performed By: #### L 506.1000, L500.4050, L100.0500, L501.8100, L500.4100 #### [facility] [address] [place], [address] BUN/CRE 20.9 RATIO High 10-20 [facility] Comment on above: Order Comment: 120.1 Performed By: #### L 506.1000, L500.4050, L100.0500, L501.8100, L500.4100 #### [facility] [address] [place], [address] CA,Total 10.4 mg/dL High 8.5-10.1 [facility] Comment on above: Order Comment: 120.1 Performed By: #### L 506.1000, L500.4050, L100.0500, L501.8100, L500.4100 #### [facility] [address] [place], [address] Chloride [Moles/Vol] 104 mmol/L Normal 98-107 [facility] Comment on above: Order Comment: 120.1 Performed By: #### L 506.1000, L500.4050, L100.0500, L501.8100, L500.4100 #### [facility] [address] [place], [address] CO2 [Moles/Vol] 29.0 mmol/L Normal 21.0-32.0 [facility] Comment on above: Order Comment: 120.1 Performed By: #### L 506.1000, L500.4050, L100.0500, L501.8100, L500.4100 #### [facility] [address] [place], [address] Creatinine [Mass/Vol] 0.86 mg/dL Normal 0.55-1.[address] [facility] Comment on above: Order Comment: 120.1 Result Comment: The validity of the calculated GFR GFRAA in patients over 70 years has not been determined. Clinical correlation is essential. Performed By: #### L 506.1000, L500.4050, L100.0500, L501.8100, L500.4100 #### [facility] [address] [place], [address] EST GFR - AA 85 mL/min Normal >60 [facility] Comment on above: Order Comment: 120.1 Result Comment: Afri can Swedish GFR Calc Performed By: #### L 506.1000, L500.4050, L100.0500, L501.8100, L500.4100 #### [facility] [address] [place], [address] GAP 6 Normal 5-15 [facility] Comment on above: Order Comment: 120.1 Performed By: #### L 506.1000, L500.4050, L100.0500, L501.8100, L500.4100 #### [facility] [address] [place], [address] GFR/1.73 sq M.predicted among non-blacks MDRD (S/P/Bld) [Vol rate/Area] 70 mL/min/{1.73_m2} Normal >60 [facility] Comment on above: Order Comment: 120.1 Result Comment: Non- GFR Calc Performed By: #### L 506.1000, L500.4050, L100.0500, L501.8100, L500.4100 #### [facility] [address] [place], [address] Globulin (S) [Mass/Vol] 4.6 g/dL High 2.2-4.2 [facility] Comment on above: Order Comment: 120.1 Performed By: #### L 506.1000, L500.4050, L100.0500, L501.8100, L500.4100 #### [facility] [address] [place], [address] Glucose [Mass/Vol] 102 mg/dL Normal 74-106 [facility] Comment on above: Order Comment: 120.1 Result Comment: Fast ing Glucose result from 100 to 125 mg/dL suggests IMPAIRED HOMEOSTASIS per A.D.A. criteria. Performed By: #### L 506.1000, L500.4050, L100.0500, L501.8100, L500.4100 #### [facility] [address] [place], [address] Potassium [Moles/Vol] 4.0 mmol/L Normal 3.5-5.[address] [facility] Comment on above: Order Comment: 120.1 Performed By: #### L 506.1000, L500.4050, L100.0500, L501.8100, L500.4100 #### [facility] [address] [place], [address] Sodium [Moles/Vol] 139 mmol/L Normal 136-145 [facility] Comment on above: Order Comment: 120.1 Performed By: #### L 506.1000, L500.4050, L100.0500, L501.8100, L500.4100 #### [facility] [address] [place], [address] T PROT 7.5 g/dL Normal 6.4-8.2 [facility] Comment on above: Order Comment: 120.1 Performed By: #### L 506.1000, L500.4050, L100.0500, L501.8100, L500.4100 #### [facility] [address] [place], [address] Urea nitrogen [Mass/Vol] 18 mg/dL Normal 7-18 [facility] Comment on above: Order Comment: 120.1 Performed By: #### L 506.1000, L500.4050, L100.0500, L501.8100, L500.4100 #### [facility] [address] [place], [address] Valproic Acid (Depakene) Lev alpa 01-02-2024 VALPROIC ACID 82 ug/mL Normal 50-100 [facility] Comment on above: Order Comment: 120.1 Performed By: #### L 506.1000, L500.4050, L100.0500, L501.8100, L500.4100 #### [facility] [address] [place], [address] CBC-Complete Blood Cnt No Di ffon 12-20-2023 Erythrocyte distribution width (RBC) [Ratio] 13.6 % Normal 11.6-14.6 [facility] Comment on above: Order Comment: 120.1 Performed By: #### L 500.4050, L100.0500 #### [facility] [address] [place], [address] Hematocrit (Bld) [Volume fraction] 33.0 % Low 37-47 [facility] Comment on above: Order Comment: 120.1 Performed By: #### L 500.4050, L100.0500 #### [facility] [address] [place], [address] Hemoglobin (Bld) [Mass/Vol] 10.5 g/dL Low 12.0-15.0 [facility] Comment on above: Order Comment: 120.1 Performed By: #### L 500.4050, L100.0500 #### [facility] [address] [place], [address] MCH (RBC) [Entitic mass] 27.3 pg Normal 27.0-32.0 [facility] Comment on above: Order Comment: 120.1 Performed By: #### L 500.4050, L100.0500 #### [facility] [address] [place], [address] MCHC (RBC) [Mass/Vol] 31.8 g/dL Low 32-[address] [facility] Comment on above: Order Comment: 120.1 Performed By: #### L 500.4050, L100.0500 #### [facility] [address] [place], [address] MCV (RBC) [Entitic vol] 85.7 fL Normal 81-99 [facility] Comment on above: Order Comment: 120.1 Performed By: #### L 500.4050, L100.0500 #### [facility] [address] [place], [address] Platelet mean volume (Bld) [Entitic vol] 9.4 fL Normal 6.2-12.0 [facility] Comment on above: Order Comment: 120.1 Performed By: #### L 500.4050, L100.0500 #### [facility] [address] [place], [address] Platelets (Bld) [#/Vol] 321 10*3/uL Normal 150-450 [facility] Comment on above: Order Comment: 120.1 Performed By: #### L 500.4050, L100.0500 #### [facility] [address] [place], [address] RBC (Bld) [#/Vol] 3.85 10*6/uL Low 4.2-5.4 [facility] Comment on above: Order Comment: 120.1 Performed By: #### L 500.4050, L100.0500 #### [facility] [address] [place], [address] RDW SD 42.5 fl Normal 35.1-43.9 [facility] Comment on above: Order Comment: 120.1 Performed By: #### L 500.4050, L100.0500 #### [facility] [address] [place], [address] WBC (Bld) [#/Vol] 10.3 10*3/uL Normal 4.4-11.0 [facility] Comment on above: Order Comment: 120.1 Performed By: #### L 500.4050, L100.0500 #### [facility] [address] [place], [address] Comprehensive Metabolic Prof ilon 12-20-2023 Albumin [Mass/Vol] 2.7 g/dL Low 3.2-5.0 [facility] Comment on above: Order Comment: 120.1 Performed By: #### L 500.4050, L100.0500 #### [facility] [address] [place], [address] Albumin/Globulin [Mass ratio] 0.6 {ratio} Low 0.9-2.4 [facility] Comment on above: Order Comment: 120.1 Performed By: #### L 500.4050, L100.0500 #### [facility] [address] [place], [address] ALK P 78 U/L Normal 45-117 [facility] Comment on above: Order Comment: 120.1 Performed By: #### L 500.4050, L100.0500 #### [facility] [address] [place], [address] ALT [Catalytic activity/Vol] 17 U/L Normal 13-56 [facility] Comment on above: Order Comment: 120.1 Performed By: #### L 500.4050, L100.0500 #### [facility] [address] [place], [address] AST [Catalytic activity/Vol] 21 U/L Normal 15-37 [facility] Comment on above: Order Comment: 120.1 Performed By: #### L 500.4050, L100.0500 #### [facility] [address] [place], [address] Bilirubin [Mass/Vol] 0.20 mg/dL Normal 0.20-1.00 [facility] Comment on above: Order Comment: 120.1 Result Comment: For patients on eltrombopag therapy, use of Dimension [place] TBIL is not recommended. Performed By: #### L 500.4050, L100.0500 #### [facility] [address] [place], [address] BUN/CRE 27.9 RATIO High 10-20 [facility] Comment on above: Order Comment: 120.1 Performed By: #### L 500.4050, L100.0500 #### [facility] [address] [place], [address] CA,Total 10.4 mg/dL High 8.5-10.1 [facility] Comment on above: Order Comment: 120.1 Performed By: #### L 500.4050, L100.0500 #### [facility] [address] [place], [address] Chloride [Moles/Vol] 104 mmol/L Normal 98-107 [facility] Comment on above: Order Comment: 120.1 Performed By: #### L 500.4050, L100.0500 #### [facility] [address] [place], [address] CO2 [Moles/Vol] 25.0 mmol/L Normal 21.0-32.0 [facility] Comment on above: Order Comment: 120.1 Performed By: #### L 500.4050, L100.0500 #### [facility] [address] [place], [address] Creatinine [Mass/Vol] 0.79 mg/dL Normal 0.55-1.[address] [facility] Comment on above: Order Comment: 120.1 Result Comment: The validity of the calculated GFR GFRAA in patients over 70 years has not been determined. Clinical correlation is essential. Performed By: #### L 500.4050, L100.0500 #### [facility] [address] [place], [address] EST GFR - AA 94 mL/min Normal >60 [facility] Comment on above: Order Comment: 120.1 Result Comment: Afri can Swedish GFR Calc Performed By: #### L 500.4050, L100.0500 #### [facility] [address] [place], [address] GAP 7 Normal 5-15 [facility] Comment on above: Order Comment: 120.1 Performed By: #### L 500.4050, L100.0500 #### [facility] [address] [place], [address] GFR/1.73 sq M.predicted among non-blacks MDRD (S/P/Bld) [Vol rate/Area] 77 mL/min/{1.73_m2} Normal >60 [facility] Comment on above: Order Comment: 120.1 Result Comment: Non- GFR Calc Performed By: #### L 500.4050, L100.0500 #### [facility] [address] [place], [address] Globulin (S) [Mass/Vol] 4.9 g/dL High 2.2-4.2 [facility] Comment on above: Order Comment: 120.1 Performed By: #### L 500.4050, L100.0500 #### [facility] [address] [place], [address] Glucose [Mass/Vol] 95 mg/dL Normal 74-106 [facility] Comment on above: Order Comment: 120.1 Performed By: #### L 500.4050, L100.0500 #### [facility] [address] [place], [address] Potassium [Moles/Vol] 4.0 mmol/L Normal 3.5-5.[address] [facility] Comment on above: Order Comment: 120.1 Performed By: #### L 500.4050, L100.0500 #### [facility] [address] [place], [address] Sodium [Moles/Vol] 136 mmol/L Normal 136-145 [facility] Comment on above: Order Comment: 120.1 Performed By: #### L 500.4050, L100.0500 #### [facility] [address] [place], [address] T PROT 7.6 g/dL Normal 6.4-8.2 [facility] Comment on above: Order Comment: 120.1 Performed By: #### L 500.4050, L100.0500 #### [facility] [address] [place], [address] Urea nitrogen [Mass/Vol] 22 mg/dL High 7-18 [facility] Comment on above: Order Comment: 120.1 Performed By: #### L 500.4050, L100.0500 #### [facility] [address] [place], [address] CBC-Complete Blood Cnt No Di ffon 11-19-2023 Erythrocyte distribution width (RBC) [Ratio] 14.4 % Normal 11.6-14.6 [facility] Comment on above: Order Comment: 120.1 Performed By: #### L 506.1000, L500.4050, L100.0500, L501.8100, L500.4100 #### [facility] [address] [place], [address] Hematocrit (Bld) [Volume fraction] 31.1 % Low 37-47 [facility] Comment on above: Order Comment: 120.1 Performed By: #### L 506.1000, L500.4050, L100.0500, L501.8100, L500.4100 #### [facility] [address] [place], [address] Hemoglobin (Bld) [Mass/Vol] 10.0 g/dL Low 12.0-15.0 [facility] Comment on above: Order Comment: 120.1 Performed By: #### L 506.1000, L500.4050, L100.0500, L501.8100, L500.4100 #### [facility] [address] [place], [address] MCH (RBC) [Entitic mass] 27.4 pg Normal 27.0-32.0 [facility] Comment on above: Order Comment: 120.1 Performed By: #### L 506.1000, L500.4050, L100.0500, L501.8100, L500.4100 #### [facility] [address] [place], [address] MCHC (RBC) [Mass/Vol] 32.2 g/dL Normal 32-[address] [facility] Comment on above: Order Comment: 120.1 Performed By: #### L 506.1000, L500.4050, L100.0500, L501.8100, L500.4100 #### [facility] [address] [place], [address] MCV (RBC) [Entitic vol] 85.2 fL Normal 81-99 [facility] Comment on above: Order Comment: 120.1 Performed By: #### L 506.1000, L500.4050, L100.0500, L501.8100, L500.4100 #### [facility] [address] [place], [address] Platelet mean volume (Bld) [Entitic vol] 9.7 fL Normal 6.2-12.0 [facility] Comment on above: Order Comment: 120.1 Performed By: #### L 506.1000, L500.4050, L100.0500, L501.8100, L500.4100 #### [facility] [address] [place], [address] Platelets (Bld) [#/Vol] 242 10*3/uL Normal 150-450 [facility] Comment on above: Order Comment: 120.1 Performed By: #### L 506.1000, L500.4050, L100.0500, L501.8100, L500.4100 #### [facility] [address] [place], [address] RBC (Bld) [#/Vol] 3.65 10*6/uL Low 4.2-5.4 [facility] Comment on above: Order Comment: 120.1 Performed By: #### L 506.1000, L500.4050, L100.0500, L501.8100, L500.4100 #### [facility] [address] [place], [address] RDW SD 44.6 fl High 35.1-43.9 [facility] Comment on above: Order Comment: 120.1 Performed By: #### L 506.1000, L500.4050, L100.0500, L501.8100, L500.4100 #### [facility] [address] [place], [address] WBC (Bld) [#/Vol] 10.3 10*3/uL Normal 4.4-11.0 [facility] Comment on above: Order Comment: 120.1 Performed By: #### L 506.1000, L500.4050, L100.0500, L501.8100, L500.4100 #### [facility] [address] [place], [address] Comprehensive Metabolic Prof ilon 11-19-2023 Albumin [Mass/Vol] 2.6 g/dL Low 3.2-5.0 [facility] Comment on above: Order Comment: 120.1 Performed By: #### L 506.1000, L500.4050, L100.0500, L501.8100, L500.4100 #### [facility] [address] [place], [address] Albumin/Globulin [Mass ratio] 0.6 {ratio} Low 0.9-2.4 [facility] Comment on above: Order Comment: 120.1 Performed By: #### L 506.1000, L500.4050, L100.0500, L501.8100, L500.4100 #### [facility] [address] [place], [address] ALK P 63 U/L Normal 45-117 [facility] Comment on above: Order Comment: 120.1 Performed By: #### L 506.1000, L500.4050, L100.0500, L501.8100, L500.4100 #### [facility] [address] [place], [address] ALT [Catalytic activity/Vol] 19 U/L Normal 13-56 [facility] Comment on above: Order Comment: 120.1 Performed By: #### L 506.1000, L500.4050, L100.0500, L501.8100, L500.4100 #### [facility] [address] [place], [address] AST [Catalytic activity/Vol] 35 U/L Normal 15-37 [facility] Comment on above: Order Comment: 120.1 Performed By: #### L 506.1000, L500.4050, L100.0500, L501.8100, L500.4100 #### [facility] [address] [place], [address] Bilirubin [Mass/Vol] 0.20 mg/dL Normal 0.20-1.00 [facility] Comment on above: Order Comment: 120.1 Result Comment: For patients on eltrombopag therapy, use of Dimension [place] TBIL is not recommended. Performed By: #### L 506.1000, L500.4050, L100.0500, L501.8100, L500.4100 #### [facility] [address] [place], [address] BUN/CRE 25.9 RATIO High 10-20 [facility] Comment on above: Order Comment: 120.1 Performed By: #### L 506.1000, L500.4050, L100.0500, L501.8100, L500.4100 #### [facility] [address] [place], [address] CA,Total 9.5 mg/dL Normal 8.5-10.1 [facility] Comment on above: Order Comment: 120.1 Performed By: #### L 506.1000, L500.4050, L100.0500, L501.8100, L500.4100 #### [facility] [address] [place], [address] Chloride [Moles/Vol] 103 mmol/L Normal 98-107 [facility] Comment on above: Order Comment: 120.1 Performed By: #### L 506.1000, L500.4050, L100.0500, L501.8100, L500.4100 #### [facility] [address] [place], [address] CO2 [Moles/Vol] 25.0 mmol/L Normal 21.0-32.0 [facility] Comment on above: Order Comment: 120.1 Performed By: #### L 506.1000, L500.4050, L100.0500, L501.8100, L500.4100 #### [facility] [address] [place], [address] Creatinine [Mass/Vol] 0.81 mg/dL Normal 0.55-1.[address] [facility] Comment on above: Order Comment: 120.1 Result Comment: The validity of the calculated GFR GFRAA in patients over 70 years has not been determined. Clinical correlation is essential. Performed By: #### L 506.1000, L500.4050, L100.0500, L501.8100, L500.4100 #### [facility] [address] [place], [address] EST GFR - AA 90 mL/min Normal >60 [facility] Comment on above: Order Comment: 120.1 Result Comment: Afri can Swedish GFR Calc Performed By: #### L 506.1000, L500.4050, L100.0500, L501.8100, L500.4100 #### [facility] [address] [place], [address] GAP 9 Normal 5-15 [facility] Comment on above: Order Comment: 120.1 Performed By: #### L 506.1000, L500.4050, L100.0500, L501.8100, L500.4100 #### [facility] [address] [place], [address] GFR/1.73 sq M.predicted among non-blacks MDRD (S/P/Bld) [Vol rate/Area] 75 mL/min/{1.73_m2} Normal >60 [facility] Comment on above: Order Comment: 120.1 Result Comment: Non- GFR Calc Performed By: #### L 506.1000, L500.4050, L100.0500, L501.8100, L500.4100 #### [facility] [address] [place], [address] Globulin (S) [Mass/Vol] 4.2 g/dL Normal 2.2-4.2 [facility] Comment on above: Order Comment: 120.1 Performed By: #### L 506.1000, L500.4050, L100.0500, L501.8100, L500.4100 #### [facility] [address] [place], [address] Glucose [Mass/Vol] 86 mg/dL Normal 74-106 [facility] Comment on above: Order Comment: 120.1 Performed By: #### L 506.1000, L500.4050, L100.0500, L501.8100, L500.4100 #### [facility] [address] [place], [address] Potassium [Moles/Vol] 4.2 mmol/L Normal 3.5-5.[address] [facility] Comment on above: Order Comment: 120.1 Performed By: #### L 506.1000, L500.4050, L100.0500, L501.8100, L500.4100 #### [facility] [address] [place], [address] Sodium [Moles/Vol] 137 mmol/L Normal 136-145 [facility] Comment on above: Order Comment: 120.1 Performed By: #### L 506.1000, L500.4050, L100.0500, L501.8100, L500.4100 #### [facility] [address] [place], [address] T PROT 6.8 g/dL Normal 6.4-8.2 [facility] Comment on above: Order Comment: 120.1 Performed By: #### L 506.1000, L500.4050, L100.0500, L501.8100, L500.4100 #### [facility] [address] [place], [address] Urea nitrogen [Mass/Vol] 21 mg/dL High 7-18 [facility] Comment on above: Order Comment: 120.1 Performed By: #### L 506.1000, L500.4050, L100.0500, L501.8100, L500.4100 #### [facility] [address] [place], [address] Lipid Profileon 11-19-2023 Cholesterol [Mass/Vol] 76 mg/dL Normal 200 [facility] Comment on above: Order Comment: 120.1 Result Comment: <200 mg/dL Desirable 200-240 mg/dL Borderline >240 mg/dL High Risk Performed By: #### L 506.1000, L500.4050, L100.0500, L501.8100, L500.4100 #### [facility] [address] [place], [address] Cholesterol in HDL [Mass/Vol] 47 mg/dL Normal [facility] Comment on above: Order Comment: 120.1 Result Comment: The drugs N-Acetylcysteine and Metamizole may falsely depress this assay. Reference Range HDL <40 mg/dL Low HDL Cholesterol HDL >or= 60 mg/dL High HDL Cholesterol Performed By: #### L 506.1000, L500.4050, L100.0500, L501.8100, L500.4100 #### [facility] [address] [place], [address] Cholesterol in LDL [Mass/Vol] 5 mg/dL Normal 0-130 [facility] Comment on above: Order Comment: 120.1 Performed By: #### L 506.1000, L500.4050, L100.0500, L501.8100, L500.4100 #### [facility] [address] [place], [address] Cholesterol in VLDL [Mass/Vol] 24 mg/dL Normal 5-40 [facility] Comment on above: Order Comment: 120.1 Performed By: #### L 506.1000, L500.4050, L100.0500, L501.8100, L500.4100 #### [facility] [address] [place], [address] Triglyceride [Mass/Vol] 118 mg/dL Normal [facility] Comment on above: Order Comment: 120.1 Result Comment: The drugs N-Acetylcysteine and Metamizole may falsely depress this assay. Serum Triglycerides Reference Interval Normal <150 mg/dL Borderline high 150 - 199 mg/dL High 200 - 499 mg/dL Very High > or = 500 mg/dL Performed By: #### L 506.1000, L500.4050, L100.0500, L501.8100, L500.4100 #### [facility] [address] [place], [address] Valproic Acid (Depakene) Lev alpa 11-19-2023 VALPROIC ACID 87 ug/mL Normal 50-100 [facility] Comment on above: Order Comment: 120.1 Performed By: #### L 506.1000, L500.4050, L100.0500, L501.8100, L500.4100 #### [facility] [address] [place], [address] Vitamin D,25 Hydroxyon 11-18 Vitamin D 25-OH 50.6 ng/mL Normal [facility] Comment on above: Order Comment: 120.1 Result Comment: Debo min D 25(OH) Status Range Deficiency <20 ng/mL (50nmol/L) Insufficiency 20 - 30 ng/mL (50 - 75 nmol/L) Sufficiency 30 - 100 ng/mL (75 - 250 nmol/L) Toxicity >100 ng/mL (>250 nmol/L) Performed By: #### L 506.1000, L500.4050, L100.0500, L501.8100, L500.4100 #### [facility] [address] [place], [address] CBC-Complete Blood Cnt No Di ffon 10-21-2023 Erythrocyte distribution width (RBC) [Ratio] 14.5 % Normal 11.6-14.6 [facility] Comment on above: Order Comment: 120-1 Performed By: #### L 100.0500, L500.4050 #### [facility] [address] [place], [address] Hematocrit (Bld) [Volume fraction] 33.0 % Low 37-47 [facility] Comment on above: Order Comment: 120-1 Performed By: #### L 100.0500, L500.4050 #### [facility] [address] [place], [address] Hemoglobin (Bld) [Mass/Vol] 10.4 g/dL Low 12.0-15.0 [facility] Comment on above: Order Comment: 120-1 Performed By: #### L 100.0500, L500.4050 #### [facility] [address] [place], [address] MCH (RBC) [Entitic mass] 27.7 pg Normal 27.0-32.0 [facility] Comment on above: Order Comment: 120-1 Performed By: #### L 100.0500, L500.4050 #### [facility] [address] [place], [address] MCHC (RBC) [Mass/Vol] 31.5 g/dL Low 32-[address] [facility] Comment on above: Order Comment: 120-1 Performed By: #### L 100.0500, L500.4050 #### [facility] [address] [place], [address] MCV (RBC) [Entitic vol] 87.8 fL Normal 81-99 [facility] Comment on above: Order Comment: 120-1 Performed By: #### L 100.0500, L500.4050 #### [facility] [address] [place], [address] Platelet mean volume (Bld) [Entitic vol] 9.6 fL Normal 6.2-12.0 [facility] Comment on above: Order Comment: 120-1 Performed By: #### L 100.0500, L500.4050 #### [facility] [address] [place], [address] Platelets (Bld) [#/Vol] 173 10*3/uL Normal 150-450 [facility] Comment on above: Order Comment: 120-1 Performed By: #### L 100.0500, L500.4050 #### [facility] [address] [place], [address] RBC (Bld) [#/Vol] 3.76 10*6/uL Low 4.2-5.4 [facility] Comment on above: Order Comment: 120-1 Performed By: #### L 100.0500, L500.4050 #### [facility] [address] [place], [address] RDW SD 46.3 fl High 35.1-43.9 [facility] Comment on above: Order Comment: 120-1 Performed By: #### L 100.0500, L500.4050 #### [facility] [address] [place], [address] WBC (Bld) [#/Vol] 8.5 10*3/uL Normal 4.4-11.0 [facility] Comment on above: Order Comment: 120-1 Performed By: #### L 100.0500, L500.4050 #### [facility] [address] [place], [address] Comprehensive Metabolic Prof [facility] 10-21-2023 Albumin [Mass/Vol] 2.6 g/dL Low 3.2-5.0 [facility] Comment on above: Order Comment: 120-1 Performed By: #### L 100.0500, L500.4050 #### [facility] [address] [place], [address] Albumin/Globulin [Mass ratio] 0.6 {ratio} Low 0.9-2.4 [facility] Comment on above: Order Comment: 120-1 Performed By: #### L 100.0500, L500.4050 #### [facility] [address] [place], [address] ALK P 50 U/L Normal 45-117 [facility] Comment on above: Order Comment: 120-1 Performed By: #### L 100.0500, L500.4050 #### [facility] [address] [place], [address] ALT [Catalytic activity/Vol] 18 U/L Normal 13-56 [facility] Comment on above: Order Comment: 120-1 Performed By: #### L 100.0500, L500.4050 #### [facility] [address] [place], [address] AST [Catalytic activity/Vol] 40 U/L High 15-37 [facility] Comment on above: Order Comment: 120-1 Performed By: #### L 100.0500, L500.4050 #### [facility] [address] [place], [address] Bilirubin [Mass/Vol] 0.20 mg/dL Normal 0.20-1.00 [facility] Comment on above: Order Comment: 120-1 Result Comment: For patients on eltrombopag therapy, use of Dimension [place] TBIL is not recommended. Performed By: #### L 100.0500, L500.4050 #### [facility] [address] [place], [address] BUN/CRE 22.1 RATIO High 10-20 [facility] Comment on above: Order Comment: 120-1 Performed By: #### L 100.0500, L500.4050 #### [facility] [address] [place], [address] CA,Total 9.6 mg/dL Normal 8.5-10.1 [facility] Comment on above: Order Comment: 120-1 Performed By: #### L 100.0500, L500.4050 #### [facility] [address] [place], [address] Chloride [Moles/Vol] 104 mmol/L Normal 98-107 [facility] Comment on above: Order Comment: 120-1 Performed By: #### L 100.0500, L500.4050 #### [facility] [address] [place], [address] CO2 [Moles/Vol] 23.0 mmol/L Normal 21.0-32.0 [facility] Comment on above: Order Comment: 120-1 Performed By: #### L 100.0500, L500.4050 #### [facility] [address] [place], [address] Creatinine [Mass/Vol] 0.82 mg/dL Normal 0.55-1.[address] [facility] Comment on above: Order Comment: 120-1 Result Comment: The validity of the calculated GFR GFRAA in patients over 70 years has not been determined. Clinical correlation is essential. Performed By: #### L 100.0500, L500.4050 #### [facility] [address] [place], [address] EST GFR - AA 90 mL/min Normal >60 [facility] Comment on above: Order Comment: 120-1 Result Comment: Afri can Swedish GFR Calc Performed By: #### L 100.0500, L500.4050 #### [facility] [address] [place], [address] GAP 9 Normal 5-15 [facility] Comment on above: Order Comment: 120-1 Performed By: #### L 100.0500, L500.4050 #### [facility] [address] [place], [address] GFR/1.73 sq M.predicted among non-blacks MDRD (S/P/Bld) [Vol rate/Area] 74 mL/min/{1.73_m2} Normal >60 [facility] Comment on above: Order Comment: 120-1 Result Comment: Non- GFR Calc Performed By: #### L 100.0500, L500.4050 #### [facility] [address] [place], [address] Globulin (S) [Mass/Vol] 4.1 g/dL Normal 2.2-4.2 [facility] Comment on above: Order Comment: 120-1 Performed By: #### L 100.0500, L500.4050 #### [facility] [address] [place], [address] Glucose [Mass/Vol] 91 mg/dL Normal 74-106 [facility] Comment on above: Order Comment: 120-1 Performed By: #### L 100.0500, L500.4050 #### [facility] [address] [place], [address] Potassium [Moles/Vol] 4.3 mmol/L Normal 3.5-5.[address] [facility] Comment on above: Order Comment: 120-1 Performed By: #### L 100.0500, L500.4050 #### [facility] [address] [place], [address] Sodium [Moles/Vol] 136 mmol/L Normal 136-145 [facility] Comment on above: Order Comment: 120-1 Performed By: #### L 100.0500, L500.4050 #### [facility] [address] [place], [address] T PROT 6.7 g/dL Normal 6.4-8.2 [facility] Comment on above: Order Comment: 120-1 Performed By: #### L 100.0500, L500.4050 #### [facility] [address] [place], [address] Urea nitrogen [Mass/Vol] 18 mg/dL Normal 7-18 [facility] Comment on above: Order Comment: 120-1 Performed By: #### L 100.0500, L500.4050 #### [facility] [address] [place], [place], [address] Miscellaneous Lab Procedureo n 10-18-2023 MIS LAB TEST Normal [facility] Comment on above: Order Comment: 120-1 Result Comment: TEST RESULTS LIMITS Lacosamide, 7.2 ug/mL 5.0-10.0 Limit of Detection 0.5 Mean plasma concentrations following maintenance dose 200 mg/day 4.99 +/- 2.51 ug/mL 400 mg/day 9.35 +/- 4.22 ug/mL 600 mg/day 12.46 +/- 5.60 ug/mL TESTING PERFORMED AT [facility]. ORIGINAL REPORT ON FILE IN LAB CONTAINS ADDITIONAL TEST SITE INFORMATION. Performed By: #### L 100.0500, L500.4050 #### [facility] [address] [place], [address] KEPPRA (LEVETIRACETAM)on KEPPRA 56.8 ug/mL Abnormal 10.0-40.0 [facility] Comment on above: Result Comment: Perf ormed at: [facility] [id number] [employer]: Daniel Heredia MD, Phone: [phone] Performed By: #### L 100.0500, L500.4050 #### [facility] [address] [place], [address] Ammoniaon 10-09-2023 Ammonia (P) [Moles/Vol] 31.0 umol/L Normal [facility] Comment on above: Order Comment: 120-1 Performed By: #### L 100.0500, L500.4050 #### [facility] [address] [place], [address] CBC W/Diff, Automatedon - Absolute Lymph 3.07 X10 3/uL Normal 0.83-4.51 [facility] Comment on above: Order Comment: 120-1 Performed By: #### L 100.0500, L500.4050 #### [facility] [address] [place], [address] Absolute Neut 4.0 X10 3/uL Normal 2.0-7.7 [facility] Comment on above: Order Comment: 120-1 Performed By: #### L 100.0500, L500.4050 #### [facility] [address] [place], [address] Basophils/100 WBC (Bld) 0.7 % Normal 0-1 [facility] Comment on above: Order Comment: 120-1 Performed By: #### L 100.0500, L500.4050 #### [facility] [address] [place], [address] Eosinophils/100 WBC (Bld) 2.0 % Normal 0-5 [facility] Comment on above: Order Comment: 120-1 Performed By: #### L 100.0500, L500.4050 #### [facility] [address] [place], [address] Erythrocyte distribution width (RBC) [Ratio] 14.7 % High 11.6-14.6 [facility] Comment on above: Order Comment: 120-1 Performed By: #### L 100.0500, L500.4050 #### [facility] [address] [place], [address] Hematocrit (Bld) [Volume fraction] 32.1 % Low 37-47 [facility] Comment on above: Order Comment: 120-1 Performed By: #### L 100.0500, L500.4050 #### [facility] [address] [place], [address] Hemoglobin (Bld) [Mass/Vol] 10.3 g/dL Low 12.0-15.0 [facility] Comment on above: Order Comment: 120-1 Performed By: #### L 100.0500, L500.4050 #### [facility] [address] [place], [address] IG% 0.600 Normal 0.0-0.9 [facility] Comment on above: Order Comment: 120-1 Result Comment: IG% - Immature Granulocytes (promyelocytes, myelocytes and metamyelocytes) > 1% indicates that a LEFT SHIFT is Present. Performed By: #### L 100.0500, L500.4050 #### [facility] [address] [place], [address] Lymphocytes/100 WBC (Bld) 35.7 % Normal 19-41 [facility] Comment on above: Order Comment: 120-1 Performed By: #### L 100.0500, L500.4050 #### [facility] [address] [place], [address] MCH (RBC) [Entitic mass] 27.6 pg Normal 27.0-32.0 [facility] Comment on above: Order Comment: 120-1 Performed By: #### L 100.0500, L500.4050 #### [facility] [address] [place], [address] MCHC (RBC) [Mass/Vol] 32.1 g/dL Normal 32-[address] [facility] Comment on above: Order Comment: 120-1 Performed By: #### L 100.0500, L500.4050 #### [facility] [address] [place], [address] MCV (RBC) [Entitic vol] 86.1 fL Normal 81-99 [facility] Comment on above: Order Comment: 120-1 Performed By: #### L 100.0500, L500.4050 #### [facility] [facility] [address] [place], [address] Monocytes/100 WBC (Bld) 14.3 % High 0-10 [facility] Comment on above: Order Comment: 120-1 Performed By: #### L 100.0500, L500.4050 #### [facility] [address] [place], [address] Neutrophils/100 WBC (Bld) 46.7 % Low 47-70 [facility] Comment on above: Order Comment: 120-1 Performed By: #### L 100.0500, L500.4050 #### [facility] [address] [place], [address] Nucleated RBC (Bld) [#/Vol] 0 10*3/uL Normal 0-5 [facility] Comment on above: Order Comment: 120-1 Performed By: #### L 100.0500, L500.4050 #### [facility] [address] [place], [address] Platelet mean volume (Bld) [Entitic vol] 9.7 fL Normal 6.2-12.0 [facility] Comment on above: Order Comment: 120-1 Performed By: #### L 100.0500, L500.4050 #### [facility] [address] [place], [address] Platelets (Bld) [#/Vol] 198 10*3/uL Normal 150-450 [facility] Comment on above: Order Comment: 120-1 Performed By: #### L 100.0500, L500.4050 #### [facility] [address] [place], [address] RBC (Bld) [#/Vol] 3.73 10*6/uL Low 4.2-5.4 [facility] Comment on above: Order Comment: 120-1 Performed By: #### L 100.0500, L500.4050 #### [facility] [address] [place], [address] RDW SD 46.4 fl High 35.1-43.9 [facility] Comment on above: Order Comment: 120-1 Performed By: #### L 100.0500, L500.4050 #### [facility] [address] [place], [address] WBC (Bld) [#/Vol] 8.6 10*3/uL Normal 4.4-11.0 [facility] Comment on above: Order Comment: 120-1 Performed By: #### L 100.0500, L500.4050 #### [facility] [address] [place], [address] Comprehensive Metabolic Prof [facility] 10-09-2023 Albumin [Mass/Vol] 2.6 g/dL Low 3.2-5.0 [facility] Comment on above: Order Comment: 120-1 Performed By: #### L 100.0500, L500.4050 #### [facility] [address] [place], [address] Albumin/Globulin [Mass ratio] 0.6 {ratio} Low 0.9-2.4 [facility] Comment on above: Order Comment: 120-1 Performed By: #### L 100.0500, L500.4050 #### [facility] [address] [place], [address] ALK P 51 U/L Normal 45-117 [facility] Comment on above: Order Comment: 120-1 Performed By: #### L 100.0500, L500.4050 #### [facility] [address] [place], [address] ALT [Catalytic activity/Vol] 22 U/L Normal 13-56 [facility] Comment on above: Order Comment: 120-1 Performed By: #### L 100.0500, L500.4050 #### [facility] [address] [place], [address] AST [Catalytic activity/Vol] 40 U/L High 15-37 [facility] Comment on above: Order Comment: 120-1 Performed By: #### L 100.0500, L500.4050 #### [facility] [address] [place], [address] Bilirubin [Mass/Vol] 0.30 mg/dL Normal 0.20-1.00 [facility] Comment on above: Order Comment: 120-1 Result Comment: For patients on eltrombopag therapy, use of Dimension [place] TBIL is not recommended. Performed By: #### L 100.0500, L500.4050 #### [facility] [address] [place], [address] BUN/CRE 21.5 RATIO High 10-20 [facility] Comment on above: Order Comment: 120-1 Performed By: #### L 100.0500, L500.4050 #### [facility] [address] [place], [address] CA,Total 9.2 mg/dL Normal 8.5-10.1 [facility] Comment on above: Order Comment: 120-1 Performed By: #### L 100.0500, [id number] #### [facility] [address] [place], [address] Chloride [Moles/Vol] 105 mmol/L Normal 98-107 [facility] Comment on above: Order Comment: 120-1 Performed By: #### L 100.0500, L500.4050 #### [facility] [address] [place], [address] CO2 [Moles/Vol] 23.0 mmol/L Normal 21.0-32.0 [facility] Comment on above: Order Comment: 120-1 Performed By: #### L 100.0500, L500.4050 #### [facility] [address] [place], [address] Creatinine [Mass/Vol] 0.93 mg/dL Normal 0.55-1.[address] [facility] Comment on above: Order Comment: 120-1 Result Comment: The validity of the calculated GFR GFRAA in patients over 70 years has not been determined. Clinical correlation is essential. Performed By: #### L 100.0500, L500.4050 #### [facility] [address] [place], [address] EST GFR - AA 77 mL/min Normal >60 [facility] Comment on above: Order Comment: 120-1 Result Comment: Afri can Swedish GFR Calc Performed By: #### L 100.0500, L500.4050 #### [facility] [address] [place], [address] GAP 7 Normal 5-15 [facility] Comment on above: Order Comment: 120-1 Performed By: #### L 100.0500, L500.4050 #### [facility] [address] [place], [address] GFR/1.73 sq M.predicted among non-blacks MDRD (S/P/Bld) [Vol rate/Area] 64 mL/min/{1.73_m2} Normal >60 [facility] Comment on above: Order Comment: 120-1 Result Comment: Non- GFR Calc Performed By: #### L 100.0500, L500.4050 #### [facility] [address] [place], [address] Globulin (S) [Mass/Vol] 4.0 g/dL Normal 2.2-4.2 [facility] Comment on above: Order Comment: 120-1 Performed By: #### L 100.0500, L500.4050 #### [facility] [address] [place], [address] Glucose [Mass/Vol] 98 mg/dL Normal 74-106 [facility] Comment on above: Order Comment: 120-1 Performed By: #### L 100.0500, L500.4050 #### [facility] [address] [place], [address] Potassium [Moles/Vol] 4.1 mmol/L Normal 3.5-5.[address] [facility] Comment on above: Order Comment: 120-1 Performed By: #### L 100.0500, L500.4050 #### [facility] [address] [place], [address] Sodium [Moles/Vol] 135 mmol/L Low 136-145 [facility] Comment on above: Order Comment: 120-1 Performed By: #### L 100.0500, L500.4050 #### [facility] [address] [place], [address] T PROT 6.6 g/dL Normal 6.4-8.2 [facility] Comment on above: Order Comment: 120-1 Performed By: #### L 100.0500, L500.4050 #### [facility] [address] [place], [address] Urea nitrogen [Mass/Vol] 20 mg/dL High 7-18 [facility] Comment on above: Order Comment: 120-1 Performed By: #### L 100.0500, L500.4050 #### [facility] [address] [place], [address] Valproic Acid (Depakene) Lev alpa 10-09-2023 VALPROIC ACID 142 ug/mL High 50-100 [facility] Comment on above: Order Comment: 120-1 Performed By: #### L 100.0500, L500.4050 #### [facility] [address] [place], [address] Protein+Creatinine Ratio,Uri neon 09-26-2023 PROT:CRE RATIO 273 mg/g CRE High 0-200 [facility] Comment on above: Performed By: #### L 100.0500, L500.4050 #### [facility] [address] [place], [address] Protein (U) [Mass/Vol] 13.3 mg/dL High <11.9 [facility] Comment on above: Performed By: #### L 100.0500, L500.4050 #### [facility] [address] [place], [address] UR CREAT 48.70 mg/dL Normal NO RANGE EST. [facility] Comment on above: Performed By: #### L 100.0500, L500.4050 #### [facility] [address] [place], [address] Renal Profileon 09-26-2023 Albumin [Mass/Vol] 2.5 g/dL Low 3.2-5.0 [facility] Comment on above: Order Comment: 120-1 Performed By: #### L 100.0500, L500.4050 #### [facility] [address] [place], [address] BUN/CRE 17.5 RATIO Normal 10-20 [facility] Comment on above: Order Comment: 120-1 Performed By: #### L 100.0500, L500.4050 #### [facility] [address] [place], [address] CA,Total 9.6 mg/dL Normal 8.5-10.1 [facility] Comment on above: Order Comment: 120-1 Performed By: #### L 100.0500, L500.4050 #### [facility] [address] [place], [address] Chloride [Moles/Vol] 102 mmol/L Normal 98-107 [facility] Comment on above: Order Comment: 120-1 Performed By: #### L 100.0500, L500.4050 #### [facility] [address] [place], [address] CO2 [Moles/Vol] 25.0 mmol/L Normal 21.0-32.0 [facility] Comment on above: Order Comment: 120-1 Performed By: #### L 100.0500, L500.4050 #### [facility] [address] [place], [address] Creatinine [Mass/Vol] 0.80 mg/dL Normal 0.55-1.[address] [facility] Comment on above: Order Comment: 120-1 Result Comment: The validity of the calculated GFR GFRAA in patients over 70 years has not been determined. Clinical correlation is essential. Performed By: #### L 100.0500, L500.4050 #### [facility] [address] [place], [address] EST GFR - AA 92 mL/min Normal >60 [facility] Comment on above: Order Comment: 120-1 Result Comment: Afri can Swedish GFR Calc Performed By: #### L 100.0500, L500.4050 #### [facility] [address] [place], [address] GFR/1.73 sq M.predicted among non-blacks MDRD (S/P/Bld) [Vol rate/Area] 76 mL/min/{1.73_m2} Normal >60 [facility] Comment on above: Order Comment: 120-1 Result Comment: Non- GFR Calc Performed By: #### L 100.0500, L500.4050 #### [facility] [address] [place], [address] Glucose [Mass/Vol] 89 mg/dL Normal 74-106 [facility] Comment on above: Order Comment: 120-1 Performed By: #### L 100.0500, L500.4050 #### [facility] [address] [place], [address] Phosphate [Mass/Vol] 2.8 mg/dL Normal 2.5-4.9 [facility] Comment on above: Order Comment: 120-1 Performed By: #### L 100.0500, L500.4050 #### [facility] [address] [place], [address] Potassium [Moles/Vol] 4.8 mmol/L Normal 3.5-5.[address] [facility] Comment on above: Order Comment: 120-1 Performed By: #### L 100.0500, L500.4050 #### [facility] [address] [place], [address] Sodium [Moles/Vol] 134 mmol/L Low 136-145 [facility] Comment on above: Order Comment: 120-1 Performed By: #### L 100.0500, L500.4050 #### [facility] [address] [place], [address] Urea nitrogen [Mass/Vol] 14 mg/dL Normal 7-18 [facility] Comment on above: Order Comment: 120-1 Performed By: #### L 100.0500, L500.4050 #### [facility] [address] [place], [address] .Auto Diffon 08-11-2023 Basophil, Absolute 0.0 10 3/mcL Normal 0.0-0.3 [facility] ([place]) Comment on above: Performed By: #### A UNRULY, VALPR, CBC, ADIFF, BMP, GFR, AMM #### [facility] [address] [place] [id number] Basophils/100 WBC (Bld) 0.4 % Normal 0.0-2.5 A [facility] ([place]) Comment on above: Performed By: #### A UNRULY, VALPR, CBC, ADIFF, BMP, GFR, AMM #### [address] [address] Eosinophil, Absolute 0.1 10 3/mcL Normal 0.0-0.7 [facility] ([place]) Comment on above: Performed By: #### A UNRULY, VALPR, CBC, ADIFF, BMP, GFR, AMM #### [address] [address] Eosinophils/100 WBC (Bld) 0.7 % Normal 0.0-6.0 [facility] ([place]) Comment on above: Performed By: #### A UNRULY, VALPR, CBC, ADIFF, BMP, GFR, AMM #### [address] [address] Lymphocyte, Absolute 3.1 10 3/mcL Normal 0.9-4.3 [facility] ([place]) Comment on above: Performed By: #### A UNRULY, VALPR, CBC, ADIFF, BMP, GFR, AMM #### [address] [address] Lymphocytes/100 WBC (Bld) 40.1 % High 20.0-40.0 [facility] ([place]) Comment on above: Performed By: #### A UNRULY, VALPR, CBC, ADIFF, BMP, GFR, AMM #### [address] [address] Monocyte, Absolute 0.8 10 3/mcL Normal 0.1-1.4 [facility] ([place]) Comment on above: Performed By: #### A UNRULY, VALPR, CBC, ADIFF, BMP, GFR, AMM #### [address] [address] Monocytes/100 WBC (Bld) 10.4 % Normal 2.0-13.0 [facility] ([place]) Comment on above: Performed By: #### A UNRULY, VALPR, CBC, ADIFF, BMP, GFR, AMM #### [address] [address] Neutrophils/100 WBC (Bld) 48.4 % Low 50.0-75.0 [facility] ([place]) Comment on above: Performed By: #### A UNRULY, VALPR, CBC, ADIFF, BMP, GFR, AMM #### [address] [address] .GFRon 08-11-2023 GFR >60 Normal [facility] ([place]) Comment on above: Result Comment: GFR Population mean for , Non- Americans Ages 20-29 = 116 mL/min/1.73 sq.m. Ages 30-39 = 107 mL/min/1.73 sq.m. Ages 40-49 = 99 mL/min/1.73 sq.m. Ages 50-59 = 93 mL/min/1.73 sq.m. Ages 60-69 = 85 mL/min/1.73 sq.m. Ages 70+ = 75 mL/min/1.73 sq.m. Chronic Kidney Disease: Less than 60 mL/min/1.73 square meters End Stage Renal Disease: Less than 15 mL/min/1.73 square meters Performed By: #### A UNRULY, VALPR, CBC, ADIFF, BMP, GFR, AMM #### [address] [address] GFR Non- >60 Normal [facility] ([place]) Comment on above: Result Comment: GFR Population mean for , Non- Americans Ages 20-29 = 116 mL/min/1.73 sq.m. Ages 30-39 = 107 mL/min/1.73 sq.m. Ages 40-49 = 99 mL/min/1.73 sq.m. Ages 50-59 = 93 mL/min/1.73 sq.m. Ages 60-69 = 85 mL/min/1.73 sq.m. Ages 70+ = 75 mL/min/1.73 sq.m. Chronic Kidney Disease: Less than 60 mL/min/1.73 square meters End Stage Renal Disease: Less than 15 mL/min/1.73 square meters Performed By: #### A UNRULY, VALPR, CBC, ADIFF, BMP, GFR, AMM #### [address] [address] .NEUABSon 08-11-2023 Neutrophil, Absolute 3.7 10 3/mcL Normal 2.3-8.1 [facility] ([place]) Comment on above: Performed By: #### A UNRULY, VALPR, CBC, ADIFF, BMP, GFR, AMM #### [address] [address] BMPon 08-11-2023 BUN/Creatinine Ratio 38.7 ratio High 10.0-22.0 [facility] ([place]) Comment on above: Performed By: #### A UNRULY, VALPR, CBC, ADIFF, BMP, GFR, AMM #### [address] [address] Calcium [Mass/Vol] 8.4 mg/dL Low 8.7-10.4 [facility] ([place]) Comment on above: Performed By: #### A UNRULY, VALPR, CBC, ADIFF, BMP, GFR, AMM #### [address] [address] Chloride [Moles/Vol] 111 mmol/L High 98-110 [facility] ([place]) Comment on above: Performed By: #### A UNRULY, VALPR, CBC, ADIFF, BMP, GFR, AMM #### [address] [address] CO2 [Moles/Vol] 24 mmol/L Normal 22-32 [facility] ([place]) Comment on above: Performed By: #### A UNRULY, VALPR, CBC, ADIFF, BMP, GFR, AMM #### [address] [address] Creatinine [Mass/Vol] 0.75 mg/dL Normal 0.50-1.20 [facility] ([place]) Comment on above: Performed By: #### A UNRULY, VALPR, CBC, ADIFF, BMP, GFR, AMM #### [address] [address] Electrolyte Balance 7.0 mEq/L Normal 4.0-15.0 [facility] ([place]) Comment on above: Performed By: #### A UNRULY, VALPR, CBC, ADIFF, BMP, GFR, AMM #### [address] [address] Glucose [Mass/Vol] 72 mg/dL Low 82-115 [facility] ([place]) Comment on above: Performed By: #### A UNRULY, VALPR, CBC, ADIFF, BMP, GFR, AMM #### [address] [address] Potassium [Moles/Vol] 4.8 mmol/L Normal 3.5-5.0 [facility] ([place]) Comment on above: Performed By: #### A UNRULY, VALPR, CBC, ADIFF, BMP, GFR, AMM #### [address] [address] Sodium [Moles/Vol] 142 mmol/L Normal 136-145 [facility] ([place]) Comment on above: Performed By: #### A UNRULY, VALPR, CBC, ADIFF, BMP, GFR, AMM #### [place] [id number] Urea nitrogen [Mass/Vol] 29.0 mg/dL High 8.0-22.0 [facility] ([place]) Comment on above: Performed By: #### A UNRULY, VALPR, CBC, ADIFF, BMP, GFR, AMM #### [address] [address] CBCon 08-11-2023 Erythrocyte distribution width (RBC) [Ratio] 15.1 % Normal 11.5-15.5 [facility] ([place]) Comment on above: Performed By: #### A UNRULY, VALPR, CBC, ADIFF, BMP, GFR, AMM #### [address] [address] Hematocrit (Bld) [Volume fraction] 33.5 % Low 34.0-46.0 [facility] ([place]) Comment on above: Performed By: #### A UNRULY, VALPR, CBC, ADIFF, BMP, GFR, AMM #### [address] [address] Hgb 11.4 G/dL Low 12.0-16.0 [facility] ([place]) Comment on above: Performed By: #### A UNRULY, VALPR, CBC, ADIFF, BMP, GFR, AMM #### [place] [id number] MCH (RBC) [Entitic mass] 29.0 pg Normal 27.0-33.0 [facility] ([place]) Comment on above: Performed By: #### A UNRULY, VALPR, CBC, ADIFF, BMP, GFR, AMM #### [place] [address] MCHC 34.0 G/dL Normal 32.0-36.0 [facility] ([place]) Comment on above: Performed By: #### A UNRULY, VALPR, CBC, ADIFF, BMP, GFR, AMM #### [place] [address] MCV (RBC) [Entitic vol] 85.4 fL Normal 80.0-99.0 A [facility] ([place]) Comment on above: Performed By: #### A UNRULY, VALPR, CBC, ADIFF, BMP, GFR, AMM #### [place] [address] Platelet 293 10 3/mcL Normal 150-450 [facility] ([place]) Comment on above: Performed By: #### A UNRULY, VALPR, CBC, ADIFF, BMP, GFR, AMM #### [place] [address] Platelet mean volume (Bld) [Entitic vol] 7.4 fL Normal 6.6-10.5 [facility] ([place]) Comment on above: Performed By: #### A UNRULY, VALPR, CBC, ADIFF, BMP, GFR, AMM #### [place] [address] RBC 3.92 10 6/mcL Low 4.10-5.30 [facility] ([place]) Comment on above: Performed By: #### A UNRULY, VALPR, CBC, ADIFF, BMP, GFR, AMM #### [place] [address] WBC 7.7 10 3/mcL Normal 4.5-10.8 [facility] ([place]) Comment on above: Performed By: #### A UNRULY, VALPR, CBC, ADIFF, BMP, GFR, AMM #### [place] [address] LABORATORYOrdered By: SYSTEM SYSTEM on 08-11-2023 Basophils (Bld) [#/Vol] 0.0 103/mcL Normal 0.0 - 0.3 10^3/mcL AH Workflow SS Basophils/100 WBC (Bld) 0.4 % Normal 0.0 - 2.5 % AH Workflow SS Calcium [Mass/Vol] 8.4 mg/dL Low 8.7 - 10. 4 mg/dL ADM SS Chloride [Moles/Vol] 111 mmol/L High 98 - 11 0 mEq/L ADM SS CO2 [Moles/Vol] 24 mmol/L Normal 22 - 32 mEq/L ADM SS Creatinine [Mass/Vol] 0.75 mg/dL Normal 0.50 - 1.20 mg/dL ADM SS Electrolyte Balance 7.0 mEq/L Normal 4.0 - 15 .0 mEq/L ADM SS Eosinophils (Bld) [#/Vol] 0.1 103/mcL Normal 0.0 - 0.7 10^3/mcL AH Workflow SS Eosinophils/100 WBC (Bld) 0.7 % Normal 0.0 - 6.0 % AH Workflow SS Erythrocyte distribution width (RBC) [Ratio] 15.1 % Normal 11.5 - 15.5 % AH Workflow SS GFR/1.73 sq M.predicted among blacks MDRD (S/P/Bld) [Vol rate/Area] ml/min/1.73sqm Invalid Interpretation Code Chemistry S Comment on above: Interpretive Data: GFR Population mean for , Non- Americans Ages 20-29 = 116 mL/min/1.73 sq.m. Ages 30-39 = 107 mL/min/1.73 sq.m. Ages 40-49 = 99 mL/min/1.73 sq.m. Ages 50-59 = 93 mL/min/1.73 sq.m. Ages 60-69 = 85 mL/min/1.73 sq.m. Ages 70+ = 75 mL/min/1.73 sq.m. Chronic Kidney Disease: Less than 60 mL/min/1.73 square meters End Stage Renal Disease: Less than 15 mL/min/1.73 square meters GFR/1.73 sq M.predicted among non-blacks MDRD (S/P/Bld) [Vol rate/Area] ml/min/1.73sqm Invalid Interpretation Code Chemistry S Comment on above: Interpretive Data: GFR Population mean for , Non- Americans Ages 20-29 = 116 mL/min/1.73 sq.m. Ages 30-39 = 107 mL/min/1.73 sq.m. Ages 40-49 = 99 mL/min/1.73 sq.m. Ages 50-59 = 93 mL/min/1.73 sq.m. Ages 60-69 = 85 mL/min/1.73 sq.m. Ages 70+ = 75 mL/min/1.73 sq.m. Chronic Kidney Disease: Less than 60 mL/min/1.73 square meters End Stage Renal Disease: Less than 15 mL/min/1.73 square meters Glucose [Mass/Vol] 72 mg/dL Low 82 - 115 mg/dL ADM SS Hematocrit (Bld) [Volume fraction] 33.5 % Low 34.0 - 46.0 % AH Workflow SS Hemoglobin (Bld) [Mass/Vol] 11.4 G/dL Low 12.0 - 16.0 G/dL AH Workflow SS Lymphocytes (Bld) [#/Vol] 3.1 103/mcL Normal 0.9 - 4.3 10^3/mcL AH Workflow SS Lymphocytes/100 WBC (Bld) 40.1 % High 20.0 - 40.0 % AH Workflow SS MCH (RBC) [Entitic mass] 29.0 pg Normal 27.0 - 33.0 pg AH Workflow SS MCHC 34.0 G/dL Normal 32.0 - 36.0 G/dL Workflow SS MCV (RBC) [Entitic vol] 85.4 fL Normal 80.0 - 99.0 fL AH Workflow SS Monocytes (Bld) [#/Vol] 0.8 103/mcL Normal 0.1 - 1.4 10^3/mcL AH Workflow SS Monocytes/100 WBC (Bld) 10.4 % Normal 2.0 - 13.0 % AH Workflow SS Neutrophils (Bld) [#/Vol] 3.7 103/mcL Normal 2.3 - 8.1 10^3/mcL AH Workflow SS Neutrophils/100 WBC (Bld) 48.4 % Low 50.0 - 75.0 % AH Workflow SS Platelet mean volume (Bld) [Entitic vol] 7.4 fL Normal 6.6 - 10.5 fL AH Workflow SS Platelets (Bld) [#/Vol] 293 103/mcL Normal 150 - 450 10^3/mcL AH Workflow SS Potassium [Moles/Vol] 4.8 mmol/L Normal 3.5 - 5.0 mEq/L ADM SS RBC (Bld) [#/Vol] 3.92 106/mcL Low 4.10 - 5.3 0 10^6/mcL AH Workflow SS Sodium [Moles/Vol] 142 mmol/L Normal 136 - 145 mEq/L ADM SS Urea nitrogen [Mass/Vol] 29.0 mg/dL High 8.0 - 22.0 mg/dL ADM SS Urea nitrogen/Creatinine [Mass ratio] 38.7 ratio High 10.0 - 22.0 ratio ADM SS WBC (Bld) [#/Vol] 7.7 103/mcL Normal 4.5 - 10.8 10^3/mcL AH Workflow SS .Auto Diffon 08-10-2023 Basophil, Absolute 0.0 10 3/mcL Normal 0.0-0.3 [facility] ([place]) Comment on above: Performed By: #### A UNRULY, ADIFF, GFR, BMP, CBC ####[address] [address] Basophils/100 WBC (Bld) 0.1 % Normal 0.0-2.5 A [facility] ([place]) Comment on above: Performed By: #### A UNRULY, ADIFF, GFR, BMP, CBC ####[address] [address] Eosinophil, Absolute 0.0 10 3/mcL Normal 0.0-0.7 [facility] ([place]) Comment on above: Performed By: #### A UNRULY, ADIFF, GFR, BMP, CBC ####[address] [address] Eosinophils/100 WBC (Bld) 0.1 % Normal 0.0-6.0 [facility] ([place]) Comment on above: Performed By: #### A UNRULY, ADIFF, GFR, BMP, CBC ####[address] [address] Lymphocyte, Absolute 2.6 10 3/mcL Normal 0.9-4.3 [facility] ([place]) Comment on above: Performed By: #### A UNRULY, ADIFF, GFR, BMP, CBC ####[address] [address] Lymphocytes/100 WBC (Bld) 37.5 % Normal 20.0-40.0 [facility] ([place]) Comment on above: Performed By: #### A UNRULY, ADIFF, GFR, BMP, CBC ####[address] [address] Monocyte, Absolute 0.7 10 3/mcL Normal 0.1-1.4 [facility] ([place]) Comment on above: Performed By: #### A UNRULY, ADIFF, GFR, BMP, CBC ####[address] [address] Monocytes/100 WBC (Bld) 9.4 % Normal 2.0-13.0 [facility] ([place]) Comment on above: Performed By: #### A UNRULY, ADIFF, GFR, BMP, CBC ####[address] [address] Neutrophils/100 WBC (Bld) 52.9 % Normal 50.0-75.0 [facility] ([place]) Comment on above: Performed By: #### A UNRULY, ADIFF, GFR, BMP, CBC ####[address] [address] .GFRon 08-10-2023 GFR >60 Normal [facility] ([place]) Comment on above: Result Comment: GFR Population mean for , Non- Americans Ages 20-29 = 116 mL/min/1.73 sq.m. Ages 30-39 = 107 mL/min/1.73 sq.m. Ages 40-49 = 99 mL/min/1.73 sq.m. Ages 50-59 = 93 mL/min/1.73 sq.m. Ages 60-69 = 85 mL/min/1.73 sq.m. Ages 70+ = 75 mL/min/1.73 sq.m. Chronic Kidney Disease: Less than 60 mL/min/1.73 square meters End Stage Renal Disease: Less than 15 mL/min/1.73 square meters Performed By: #### A UNRULY, ADIFF, GFR, BMP, CBC ####[address] [address] GFR Non- >60 Normal [facility] ([place]) Comment on above: Result Comment: GFR Population mean for , Non- Americans Ages 20-29 = 116 mL/min/1.73 sq.m. Ages 30-39 = 107 mL/min/1.73 sq.m. Ages 40-49 = 99 mL/min/1.73 sq.m. Ages 50-59 = 93 mL/min/1.73 sq.m. Ages 60-69 = 85 mL/min/1.73 sq.m. Ages 70+ = 75 mL/min/1.73 sq.m. Chronic Kidney Disease: Less than 60 mL/min/1.73 square meters End Stage Renal Disease: Less than 15 mL/min/1.73 square meters Performed By: #### A UNRULY, ADIFF, GFR, BMP, CBC ####[place] [address] .NEUABSon 08-10-2023 Neutrophil, Absolute 3.7 10 3/mcL Normal 2.3-8.1 [facility] ([place]) Comment on above: Performed By: #### A UNRULY, ADIFF, GFR, BMP, CBC ####[place] [address] BMPon 08-10-2023 BUN/Creatinine Ratio 38.8 ratio High 10.0-22.0 [facility] ([place]) Comment on above: Performed By: #### A UNRULY, ADIFF, GFR, BMP, CBC ####[place] [address] Calcium [Mass/Vol] 8.6 mg/dL Low 8.7-10.4 [facility] ([place]) Comment on above: Performed By: #### A UNRULY, ADIFF, GFR, BMP, CBC ####[place] [id number] Chloride [Moles/Vol] 112 mmol/L High 98-110 [facility] ([place]) Comment on above: Performed By: #### A UNRULY, ADIFF, GFR, BMP, CBC ####[address] [address] CO2 [Moles/Vol] 23 mmol/L Normal 22-32 [facility] ([place]) Comment on above: Performed By: #### A UNRULY, ADIFF, GFR, BMP, CBC ####[address] [address] Creatinine [Mass/Vol] 0.80 mg/dL Normal 0.50-1.20 [facility] ([place]) Comment on above: Performed By: #### A UNRULY, ADIFF, GFR, BMP, CBC ####[address] [address] Electrolyte Balance 6.0 mEq/L Normal 4.0-15.0 [facility] ([place]) Comment on above: Performed By: #### A UNRULY, ADIFF, GFR, BMP, CBC ####[address] [address] Glucose [Mass/Vol] 76 mg/dL Low 82-115 [facility] ([place]) Comment on above: Performed By: #### A UNRULY, ADIFF, GFR, BMP, CBC ####[address] [address] Potassium [Moles/Vol] 4.4 mmol/L Normal 3.5-5.0 [facility] ([place]) Comment on above: Performed By: #### A UNRULY, ADIFF, GFR, BMP, CBC ####[address] [address] Sodium [Moles/Vol] 141 mmol/L Normal 136-145 [facility] ([place]) Comment on above: Performed By: #### A UNRULY, ADIFF, GFR, BMP, CBC ####[address] [address] Urea nitrogen [Mass/Vol] 31.0 mg/dL High 8.0-22.0 [facility] ([place]) Comment on above: Performed By: #### A UNRULY, ADIFF, GFR, BMP, CBC ####[place] [address] CBCon 08-10-2023 Erythrocyte distribution width (RBC) [Ratio] 15.3 % Normal 11.5-15.5 [facility] ([place]) Comment on above: Performed By: #### A UNRULY, ADIFF, GFR, BMP, CBC ####[place] [address] Hematocrit (Bld) [Volume fraction] 32.5 % Low 34.0-46.0 [facility] ([place]) Comment on above: Performed By: #### A UNRULY, ADIFF, GFR, BMP, CBC ####[place] [address] Hgb 10.8 G/dL Low 12.0-16.0 [facility] ([place]) Comment on above: Performed By: #### A UNRULY, ADIFF, GFR, BMP, CBC ####[place] [address] MCH (RBC) [Entitic mass] 28.1 pg Normal 27.0-33.0 [facility] ([place]) Comment on above: Performed By: #### A UNRULY, ADIFF, GFR, BMP, CBC ####[place] [address] MCHC 33.1 G/dL Normal 32.0-36.0 [facility] ([place]) Comment on above: Performed By: #### A UNRULY, ADIFF, GFR, BMP, CBC ####[place] [address] MCV (RBC) [Entitic vol] 85.0 fL Normal 80.0-99.0 [facility] ([place]) Comment on above: Performed By: #### A UNRULY, ADIFF, GFR, BMP, CBC ####[place] [address] Platelet 307 10 3/mcL Normal 150-450 [facility] ([place]) Comment on above: Performed By: #### A UNRULY, ADIFF, GFR, BMP, CBC ####[place] [id number] [place] [address] Platelet mean volume (Bld) [Entitic vol] 7.4 fL Normal 6.6-10.5 [facility] ([place]) Comment on above: Performed By: #### A UNRULY, ADIFF, GFR, BMP, CBC ####[place] [id number] [address] [place] [address] RBC 3.83 10 6/mcL Low 4.10-5.30 [facility] ([place]) Comment on above: Performed By: #### A UNRULY, ADIFF, GFR, BMP, CBC ####[address] [address] WBC 6.9 10 3/mcL Normal 4.5-10.8 [facility] ([place]) Comment on above: Performed By: #### A UNRULY, ADIFF, GFR, BMP, CBC ####[place] [address] LABORATORYOrdered By: SYSTEM SYSTEM on 08-10-2023 Basophils (Bld) [#/Vol] 0.0 103/mcL Normal 0.0 - 0.3 10^3/mcL Workflow SS Basophils/100 WBC (Bld) 0.1 % Normal 0.0 - 2.5 % AH Workflow SS Calcium [Mass/Vol] 8.6 mg/dL Low 8.7 - 10. 4 mg/dL ADM SS Chloride [Moles/Vol] 112 mmol/L High 98 - 11 0 mEq/L ADM SS CO2 [Moles/Vol] 23 mmol/L Normal 22 - 32 mEq/L ADM SS Creatinine [Mass/Vol] 0.80 mg/dL Normal 0.50 - 1.20 mg/dL ADM SS Electrolyte Balance 6.0 mEq/L Normal 4.0 - 15 .0 mEq/L AH ADM SS Eosinophils (Bld) [#/Vol] 0.0 103/mcL Normal 0.0 - 0.7 10^3/mcL AH Workflow SS Eosinophils/100 WBC (Bld) 0.1 % Normal 0.0 - 6.0 % AH Workflow SS Erythrocyte distribution width (RBC) [Ratio] 15.3 % Normal 11.5 - 15.5 % AH Workflow SS GFR/1.73 sq M.predicted among blacks MDRD (S/P/Bld) [Vol rate/Area] ml/min/1.73sqm Invalid Interpretation Code DN2K Chemistry S Comment on above: Interpretive Data: GFR Population mean for , Non- Americans Ages 20-29 = 116 mL/min/1.73 sq.m. Ages 30-39 = 107 mL/min/1.73 sq.m. Ages 40-49 = 99 mL/min/1.73 sq.m. Ages 50-59 = 93 mL/min/1.73 sq.m. Ages 60-69 = 85 mL/min/1.73 sq.m. Ages 70+ = 75 mL/min/1.73 sq.m. Chronic Kidney Disease: Less than 60 mL/min/1.73 square meters End Stage Renal Disease: Less than 15 mL/min/1.73 square meters GFR/1.73 sq M.predicted among non-blacks MDRD (S/P/Bld) [Vol rate/Area] ml/min/1.73sqm Invalid Interpretation Code DN2K Chemistry S Comment on above: Interpretive Data: GFR Population mean for , Non- Americans Ages 20-29 = 116 mL/min/1.73 sq.m. Ages 30-39 = 107 mL/min/1.73 sq.m. Ages 40-49 = 99 mL/min/1.73 sq.m. Ages 50-59 = 93 mL/min/1.73 sq.m. Ages 60-69 = 85 mL/min/1.73 sq.m. Ages 70+ = 75 mL/min/1.73 sq.m. Chronic Kidney Disease: Less than 60 mL/min/1.73 square meters End Stage Renal Disease: Less than 15 mL/min/1.73 square meters Glucose [Mass/Vol] 76 mg/dL Low 82 - 115 mg/dL ADM SS Hematocrit (Bld) [Volume fraction] 32.5 % Low 34.0 - 46.0 % Workflow SS Hemoglobin (Bld) [Mass/Vol] 10.8 G/dL Low 12.0 - 16.0 G/dL Workflow SS Lymphocytes (Bld) [#/Vol] 2.6 103/mcL Normal 0.9 - 4.3 10^3/mcL Workflow SS Lymphocytes/100 WBC (Bld) 37.5 % Normal 20.0 - 40.0 % AH Workflow SS MCH (RBC) [Entitic mass] 28.1 pg Normal 27.0 - 33.0 pg AH Workflow SS MCHC 33.1 G/dL Normal 32.0 - 36.0 G/dL AH Workflow SS MCV (RBC) [Entitic vol] 85.0 fL Normal 80.0 - 99.0 fL AH Workflow SS Monocytes (Bld) [#/Vol] 0.7 103/mcL Normal 0.1 - 1.4 10^3/mcL AH Workflow SS Monocytes/100 WBC (Bld) 9.4 % Normal 2.0 - 13.0 % AH Workflow SS Neutrophils (Bld) [#/Vol] 3.7 103/mcL Normal 2.3 - 8.1 10^3/mcL AH Workflow SS Neutrophils/100 WBC (Bld) 52.9 % Normal 50.0 - 75.0 % AH Workflow SS Platelet mean volume (Bld) [Entitic vol] 7.4 fL Normal 6.6 - 10.5 fL AH Workflow SS Platelets (Bld) [#/Vol] 307 103/mcL Normal 150 - 450 10^3/mcL AH Workflow SS Potassium [Moles/Vol] 4.4 mmol/L Normal 3.5 - 5.0 mEq/L AH ADM SS RBC (Bld) [#/Vol] 3.83 106/mcL Low 4.10 - 5.3 0 10^6/mcL AH Workflow SS Sodium [Moles/Vol] 141 mmol/L Normal 136 - 145 mEq/L AH ADM SS Urea nitrogen [Mass/Vol] 31.0 mg/dL High 8.0 - 22.0 mg/dL AH ADM SS Urea nitrogen/Creatinine [Mass ratio] 38.8 ratio High 10.0 - 22.0 ratio AH ADM SS WBC (Bld) [#/Vol] 6.9 103/mcL Normal 4.5 - 10.8 10^3/mcL AH Workflow SS .Auto Diffon 08-09-2023 Basophil, Absolute 0.0 10 3/mcL Normal 0.0-0.3 [facility] ([place]) Comment on above: Performed By: #### A UNRULY, VALPR, CBC, ADIFF, BMP, GFR, AMM #### [address] [address] Basophils/100 WBC (Bld) 0.3 % Normal 0.0-2.5 A [facility] ([place]) Comment on above: Performed By: #### A UNRULY, VALPR, CBC, ADIFF, BMP, GFR, AMM #### [address] [address] Eosinophil, Absolute 0.2 10 3/mcL Normal 0.0-0.7 [facility] ([place]) Comment on above: Performed By: #### A UNRULY, VALPR, CBC, ADIFF, BMP, GFR, AMM #### [address] [address] Eosinophils/100 WBC (Bld) 2.2 % Normal 0.0-6.0 [facility] ([place]) Comment on above: Performed By: #### A UNRULY, VALPR, CBC, ADIFF, BMP, GFR, AMM #### [address] [address] Lymphocyte, Absolute 1.9 10 3/mcL Normal 0.9-4.3 [facility] ([place]) Comment on above: Performed By: #### A UNRULY, VALPR, CBC, ADIFF, BMP, GFR, AMM #### [address] [address] Lymphocytes/100 WBC (Bld) 25.8 % Normal 20.0-40.0 [facility] ([place]) Comment on above: Performed By: #### A UNRULY, VALPR, CBC, ADIFF, BMP, GFR, AMM #### [address] [address] Monocyte, Absolute 0.8 10 3/mcL Normal 0.1-1.4 [facility] ([place]) Comment on above: Performed By: #### A UNRULY, VALPR, CBC, ADIFF, BMP, GFR, AMM #### [address] [address] Monocytes/100 WBC (Bld) 11.1 % Normal 2.0-13.0 A [facility] ([place]) Comment on above: Performed By: #### A URNULY, VALPR, CBC, ADIFF, BMP, GFR, AMM #### [address] [address] Neutrophils/100 WBC (Bld) 60.6 % Normal 50.0-75.0 [facility] ([place]) Comment on above: Performed By: #### A UNRULY, VALPR, CBC, ADIFF, BMP, GFR, AMM #### [address] [address] .GFRon 08-09-2023 GFR Non- >60 Normal [facility] ([place]) Comment on above: Result Comment: GFR Population mean for , Non- Americans Ages 20-29 = 116 mL/min/1.73 sq.m. Ages 30-39 = 107 mL/min/1.73 sq.m. Ages 40-49 = 99 mL/min/1.73 sq.m. Ages 50-59 = 93 mL/min/1.73 sq.m. Ages 60-69 = 85 mL/min/1.73 sq.m. Ages 70+ = 75 mL/min/1.73 sq.m. Chronic Kidney Disease: Less than 60 mL/min/1.73 square meters End Stage Renal Disease: Less than 15 mL/min/1.73 square meters Performed By: #### A UNRULY, VALPR, CBC, ADIFF, BMP, GFR, AMM #### [address] [address] GFR >60 Normal [facility] ([place]) Comment on above: Result Comment: GFR Population mean for , Non- Americans Ages 20-29 = 116 mL/min/1.73 sq.m. Ages 30-39 = 107 mL/min/1.73 sq.m. Ages 40-49 = 99 mL/min/1.73 sq.m. Ages 50-59 = 93 mL/min/1.73 sq.m. Ages 60-69 = 85 mL/min/1.73 sq.m. Ages 70+ = 75 mL/min/1.73 sq.m. Chronic Kidney Disease: Less than 60 mL/min/1.73 square meters End Stage Renal Disease: Less than 15 mL/min/1.73 square meters Performed By: #### A UNRULY, VALPR, CBC, ADIFF, BMP, GFR, AMM #### [address] [address] .NEUABSon 08-09-2023 Neutrophil, Absolute 4.5 10 3/mcL Normal 2.3-8.1 [facility] ([place]) Comment on above: Performed By: #### A UNRULY, VALPR, CBC, ADIFF, BMP, GFR, AMM #### [address] [address] Gael 08-09-2023 Ammonia 19 mcmol/l Normal 11-32 [facility] ([place]) Comment on above: Performed By: #### A UNRULY, VALPR, CBC, ADIFF, BMP, GFR, AMM #### [address] [address] BMPon 08-09-2023 BUN/Creatinine Ratio 30.9 ratio High 10.0-22.0 [facility] ([place]) Comment on above: Performed By: #### A UNRULY, VALPR, CBC, ADIFF, BMP, GFR, AMM #### [address] [address] Calcium [Mass/Vol] 8.8 mg/dL Normal 8.7-10.4 [facility] ([place]) Comment on above: Performed By: #### A UNRULY, VALPR, CBC, ADIFF, BMP, GFR, AMM #### [address] [address] Chloride [Moles/Vol] 109 mmol/L Normal 98-110 [facility] ([place]) Comment on above: Performed By: #### A UNRULY, VALPR, CBC, ADIFF, BMP, GFR, AMM #### [address] [address] CO2 [Moles/Vol] 25 mmol/L Normal 22-32 [facility] ([place]) Comment on above: Performed By: #### A UNRULY, VALPR, CBC, ADIFF, BMP, GFR, AMM #### [address] [address] Creatinine [Mass/Vol] 0.81 mg/dL Normal 0.50-1.20 [facility] ([place]) Comment on above: Performed By: #### A UNRULY, VALPR, CBC, ADIFF, BMP, GFR, AMM #### [place] [id number] Electrolyte Balance 7.0 mEq/L Normal 4.0-15.0 [facility] ([place]) Comment on above: Performed By: #### A UNRULY, VALPR, CBC, ADIFF, BMP, GFR, AMM #### [place] [id number] Glucose [Mass/Vol] 81 mg/dL Low 82-115 [facility] ([place]) Comment on above: Performed By: #### A UNRULY, VALPR, CBC, ADIFF, BMP, GFR, AMM #### [place] [id number] Potassium [Moles/Vol] 4.2 mmol/L Normal 3.5-5.0 [facility] ([place]) Comment on above: Performed By: #### A UNRULY, VALPR, CBC, ADIFF, BMP, GFR, AMM #### [place] [id number] Sodium [Moles/Vol] 141 mmol/L Normal 136-145 [facility] ([place]) Comment on above: Performed By: #### A UNRULY, VALPR, CBC, ADIFF, BMP, GFR, AMM #### [place] [id number] Urea nitrogen [Mass/Vol] 25.0 mg/dL High 8.0-22.0 [facility] ([place]) Comment on above: Performed By: #### A UNRULY, VALPR, CBC, ADIFF, BMP, GFR, AMM #### [address] [address] CBCon 08-09-2023 Erythrocyte distribution width (RBC) [Ratio] 15.2 % Normal 11.5-15.5 [facility] ([place]) Comment on above: Performed By: #### A UNRULY, VALPR, CBC, ADIFF, BMP, GFR, AMM #### [place] [id number] Hematocrit (Bld) [Volume fraction] 34.1 % Normal 34.0-46.0 [facility] ([place]) Comment on above: Performed By: #### A UNRULY, VALPR, CBC, ADIFF, BMP, GFR, AMM #### [place] [address] Hgb 11.6 G/dL Low 12.0-16.0 [facility] ([place]) Comment on above: Performed By: #### A UNRULY, VALPR, CBC, ADIFF, BMP, GFR, AMM #### [place] [address] MCH (RBC) [Entitic mass] 28.3 pg Normal 27.0-33.0 [facility] ([place]) Comment on above: Performed By: #### A UNRULY, VALPR, CBC, ADIFF, BMP, GFR, AMM #### [place] [address] MCHC 33.9 G/dL Normal 32.0-36.0 [facility] ([place]) Comment on above: Performed By: #### A UNRULY, VALPR, CBC, ADIFF, BMP, GFR, AMM #### [place] [address] MCV (RBC) [Entitic vol] 83.6 fL Normal 80.0-99.0 A [facility] ([place]) Comment on above: Performed By: #### A UNRULY, VALPR, CBC, ADIFF, BMP, GFR, AMM #### [place] [address] Platelet 299 10 3/mcL Normal 150-450 [facility] ([place]) Comment on above: Performed By: #### A UNRULY, VALPR, CBC, ADIFF, BMP, GFR, AMM #### [place] [address] Platelet mean volume (Bld) [Entitic vol] 7.2 fL Normal 6.6-10.5 [facility] ([place]) Comment on above: Performed By: #### A UNRULY, VALPR, CBC, ADIFF, BMP, GFR, AMM #### [place] [id number] [place] [address] RBC 4.08 10 6/mcL Low 4.10-5.30 [facility] ([place]) Comment on above: Performed By: #### A UNRULY, VALPR, CBC, ADIFF, BMP, GFR, AMM #### [facility] [address] [place] [address] WBC 7.4 10 3/mcL Normal 4.5-10.8 [facility] ([place]) Comment on above: Performed By: #### A UNRULY, VALPR, CBC, ADIFF, BMP, GFR, AMM #### [address] [address] LABORATORYOrdered By: SYSTEM SYSTEM on 08-09-2023 Ammonia (P) [Moles/Vol] 19 umol/L Normal 11 - 32 mcmol/L ADM SS Basophils (Bld) [#/Vol] 0.0 103/mcL Normal 0.0 - 0.3 10^3/mcL Workflow SS Basophils/100 WBC (Bld) 0.3 % Normal 0.0 - 2.5 % Workflow SS Calcium [Mass/Vol] 8.8 mg/dL Normal 8.7 - 10. 4 mg/dL ADM SS Chloride [Moles/Vol] 109 mmol/L Normal 98 - 11 0 mEq/L ADM SS CO2 [Moles/Vol] 25 mmol/L Normal 22 - 32 mEq/L ADM SS Creatinine [Mass/Vol] 0.81 mg/dL Normal 0.50 - 1.20 mg/dL ADM SS Electrolyte Balance 7.0 mEq/L Normal 4.0 - 15 .0 mEq/L ADM SS Eosinophils (Bld) [#/Vol] 0.2 103/mcL Normal 0.0 - 0.7 10^3/mcL Workflow SS Eosinophils/100 WBC (Bld) 2.2 % Normal 0.0 - 6.0 % Workflow SS Erythrocyte distribution width (RBC) [Ratio] 15.2 % Normal 11.5 - 15.5 % Workflow SS GFR/1.73 sq M.predicted among blacks MDRD (S/P/Bld) [Vol rate/Area] ml/min/1.73sqm Invalid Interpretation Code Chemistry S Comment on above: Interpretive Data: GFR Population mean for , Non- Americans Ages 20-29 = 116 mL/min/1.73 sq.m. Ages 30-39 = 107 mL/min/1.73 sq.m. Ages 40-49 = 99 mL/min/1.73 sq.m. Ages 50-59 = 93 mL/min/1.73 sq.m. Ages 60-69 = 85 mL/min/1.73 sq.m. Ages 70+ = 75 mL/min/1.73 sq.m. Chronic Kidney Disease: Less than 60 mL/min/1.73 square meters End Stage Renal Disease: Less than 15 mL/min/1.73 square meters GFR/1.73 sq M.predicted among non-blacks MDRD (S/P/Bld) [Vol rate/Area] ml/min/1.73sqm Invalid Interpretation Code Chemistry S Comment on above: Interpretive Data: GFR Population mean for , Non- Americans Ages 20-29 = 116 mL/min/1.73 sq.m. Ages 30-39 = 107 mL/min/1.73 sq.m. Ages 40-49 = 99 mL/min/1.73 sq.m. Ages 50-59 = 93 mL/min/1.73 sq.m. Ages 60-69 = 85 mL/min/1.73 sq.m. Ages 70+ = 75 mL/min/1.73 sq.m. Chronic Kidney Disease: Less than 60 mL/min/1.73 square meters End Stage Renal Disease: Less than 15 mL/min/1.73 square meters Glucose [Mass/Vol] 81 mg/dL Low 82 - 115 mg/dL ADM SS Hematocrit (Bld) [Volume fraction] 34.1 % Normal 34.0 - 46.0 % Workflow SS Hemoglobin (Bld) [Mass/Vol] 11.6 G/dL Low 12.0 - 16.0 G/dL AH Workflow SS Lymphocytes (Bld) [#/Vol] 1.9 103/mcL Normal 0.9 - 4.3 10^3/mcL Workflow SS Lymphocytes/100 WBC (Bld) 25.8 % Normal 20.0 - 40.0 % Workflow SS MCH (RBC) [Entitic mass] 28.3 pg Normal 27.0 - 33.0 pg AH Workflow SS MCHC 33.9 G/dL Normal 32.0 - 36.0 G/dL AH Workflow SS MCV (RBC) [Entitic vol] 83.6 fL Normal 80.0 - 99.0 fL AH Workflow SS Monocytes (Bld) [#/Vol] 0.8 103/mcL Normal 0.1 - 1.4 10^3/mcL AH Workflow SS Monocytes/100 WBC (Bld) 11.1 % Normal 2.0 - 13.0 % AH Workflow SS Neutrophils (Bld) [#/Vol] 4.5 103/mcL Normal 2.3 - 8.1 10^3/mcL AH Workflow SS Neutrophils/100 WBC (Bld) 60.6 % Normal 50.0 - 75.0 % AH Workflow SS Platelet mean volume (Bld) [Entitic vol] 7.2 fL Normal 6.6 - 10.5 fL AH Workflow SS Platelets (Bld) [#/Vol] 299 103/mcL Normal 150 - 450 10^3/mcL AH Workflow SS Potassium [Moles/Vol] 4.2 mmol/L Normal 3.5 - 5.0 mEq/L ADM SS RBC (Bld) [#/Vol] 4.08 106/mcL Low 4.10 - 5.3 0 10^6/mcL AH Workflow SS Sodium [Moles/Vol] 141 mmol/L Normal 136 - 145 mEq/L AH ADM SS Urea nitrogen [Mass/Vol] 25.0 mg/dL High 8.0 - 22.0 mg/dL AH ADM SS Urea nitrogen/Creatinine [Mass ratio] 30.9 ratio High 10.0 - 22.0 ratio ADM SS Valproate [Mass/Vol] 110.8 ug/mL Normal 50.0 - 130.0 mcg/mL ADM SS WBC (Bld) [#/Vol] 7.4 103/mcL Normal 4.5 - 10.8 10^3/mcL Workflow SS LABORATORYOrdered By: Nelda Carl on 08-09-2023 LDose Valproic Acid: See eMAR (08/09/23 7:41 AM) Normal Chemistry S MRI BRAIN W/O CONTRASTon MRI BRAIN W/O CONTRAST ORIGINAL HISTORY: TIA COMPARISON: Head CT 5 days previously TECHNIQUE: 1. Sagittal T1-weighted images. 2. Axial T2-weighted and T2*-weighted images. 3. Axial FLAIR images. 4. Axial diffusion-weighted images with ADC map. FINDINGS: The ventricles and sulci are mildly enlarged. There are no abnormal intra or extra-axial fluid collections. There are mild scattered punctate T2 hyperintensities in the cerebral white matter. Butt-white matter differentiation is maintained. There is no abnormal restriction of diffusion. The orbital contents are normal in appearance. The paranasal sinuses are clear IMPRESSION: Mild volume loss and small vessel ischemic disease. Interpreted by: Sai Spears MD Preliminary Report By: Sai Spears MD Electronically signed By Sai Spears MD Dictated Date: 08/09/2023 10:59:50 AM Prelim Date: 08/09/2023 11:01:30 AM Sign Date: 08/09/2023 11:01:30 AM Ordering Provider: BRITT LOEPZ [facility]) VALPRon 08-09-2023 LDose Valproic Acid: See eMAR [facility]) Comment on above: Performed By: #### A UNRULY, VALPR, CBC, ADIFF, BMP, GFR, AMM #### [place] [address] Valproic Acid Lvl 110.8 mcg/mL Normal 50.0-130.0 [facility] ([place]) Comment on above: Performed By: #### A UNRULY, VALPR, CBC, ADIFF, BMP, GFR, AMM #### [place] [address] .Auto Diffon 08-08-2023 Basophil, Absolute 0.0 10 3/mcL Normal 0.0-0.3 [facility]) Comment on above: Performed By: #### A UNRULY, VALPR, CBC, ADIFF, BMP, GFR, AMM #### [place] [address] Basophils/100 WBC (Bld) 0.4 % Normal 0.0-2.5 A [facility] ([place]) Comment on above: Performed By: #### A UNRULY, VALPR, CBC, ADIFF, BMP, GFR, AMM #### [place] [id number] Eosinophil, Absolute 0.3 10 3/mcL Normal 0.0-0.7 [facility] ([place]) Comment on above: Performed By: #### A UNRULY, VALPR, CBC, ADIFF, BMP, GFR, AMM #### [address] [address] Eosinophils/100 WBC (Bld) 3.2 % Normal 0.0-6.0 [facility] ([place]) Comment on above: Performed By: #### A UNRULY, VALPR, CBC, ADIFF, BMP, GFR, AMM #### [address] [address] Lymphocyte, Absolute 3.1 10 3/mcL Normal 0.9-4.3 [facility] ([place]) Comment on above: Performed By: #### A UNRULY, VALPR, CBC, ADIFF, BMP, GFR, AMM #### [address] [address] Lymphocytes/100 WBC (Bld) 31.0 % Normal 20.0-40.0 [facility] ([place]) Comment on above: Performed By: #### A UNRULY, VALPR, CBC, ADIFF, BMP, GFR, AMM #### [address] [address] Monocyte, Absolute 1.1 10 3/mcL Normal 0.1-1.4 [facility] ([place]) Comment on above: Performed By: #### A UNRULY, VALPR, CBC, ADIFF, BMP, GFR, AMM #### [address] [address] Monocytes/100 WBC (Bld) 11.5 % Normal 2.0-13.0 [facility] ([place]) Comment on above: Performed By: #### A UNRULY, VALPR, CBC, ADIFF, BMP, GFR, AMM #### [address] [address] Neutrophils/100 WBC (Bld) 53.9 % Normal 50.0-75.0 [facility] ([place]) Comment on above: Performed By: #### A UNRULY, VALPR, CBC, ADIFF, BMP, GFR, AMM #### [address] [address] .GFRon 08-08-2023 GFR >60 Normal [facility] ([place]) Comment on above: Result Comment: GFR Population mean for , Non- Americans Ages 20-29 = 116 mL/min/1.73 sq.m. Ages 30-39 = 107 mL/min/1.73 sq.m. Ages 40-49 = 99 mL/min/1.73 sq.m. Ages 50-59 = 93 mL/min/1.73 sq.m. Ages 60-69 = 85 mL/min/1.73 sq.m. Ages 70+ = 75 mL/min/1.73 sq.m. Chronic Kidney Disease: Less than 60 mL/min/1.73 square meters End Stage Renal Disease: Less than 15 mL/min/1.73 square meters Performed By: #### A UNRULY, VALPR, CBC, ADIFF, BMP, GFR, AMM #### [address] [address] GFR Non- >60 Normal [facility] ([place]) Comment on above: Result Comment: GFR Population mean for , Non- Americans Ages 20-29 = 116 mL/min/1.73 sq.m. Ages 30-39 = 107 mL/min/1.73 sq.m. Ages 40-49 = 99 mL/min/1.73 sq.m. Ages 50-59 = 93 mL/min/1.73 sq.m. Ages 60-69 = 85 mL/min/1.73 sq.m. Ages 70+ = 75 mL/min/1.73 sq.m. Chronic Kidney Disease: Less than 60 mL/min/1.73 square meters End Stage Renal Disease: Less than 15 mL/min/1.73 square meters Performed By: #### A UNRULY, VALPR, CBC, ADIFF, BMP, GFR, AMM #### [address] [address] .NEUABSon 08-08-2023 Neutrophil, Absolute 5.4 10 3/mcL Normal 2.3-8.1 [facility] ([place]) Comment on above: Performed By: #### A UNRULY, VALPR, CBC, ADIFF, BMP, GFR, AMM #### [address] [address] Gael 08-08-2023 Ammonia 30 mcmol/l Normal 11-32 [facility] ([place]) Comment on above: Performed By: #### A UNRULY, VALPR, CBC, ADIFF, BMP, GFR, AMM #### [address] [address] CBCon 08-08-2023 Erythrocyte distribution width (RBC) [Ratio] 15.5 % Normal 11.5-15.5 [facility] ([place]) Comment on above: Performed By: #### A UNRULY, VALPR, CBC, ADIFF, BMP, GFR, AMM #### [place] [address] Hematocrit (Bld) [Volume fraction] 32.9 % Low 34.0-46.0 [facility] ([place]) Comment on above: Performed By: #### A UNRULY, VALPR, CBC, ADIFF, BMP, GFR, AMM #### [place] [address] Hgb 11.2 G/dL Low 12.0-16.0 [facility] ([place]) Comment on above: Performed By: #### A UNRULY, VALPR, CBC, ADIFF, BMP, GFR, AMM #### [place] [address] MCH (RBC) [Entitic mass] 28.6 pg Normal 27.0-33.0 [facility] ([place]) Comment on above: Performed By: #### A UNRULY, VALPR, CBC, ADIFF, BMP, GFR, AMM #### [place] [address] MCHC 33.9 G/dL Normal 32.0-36.0 [facility] ([place]) Comment on above: Performed By: #### A UNRULY, VALPR, CBC, ADIFF, BMP, GFR, AMM #### [place] [id number] MCV (RBC) [Entitic vol] 84.2 fL Normal 80.0-99.0 [facility] ([place]) Comment on above: Performed By: #### A UNRULY, VALPR, CBC, ADIFF, BMP, GFR, AMM #### [address] [address] Platelet 279 10 3/mcL Normal 150-450 [facility] ([place]) Comment on above: Performed By: #### A UNRULY, VALPR, CBC, ADIFF, BMP, GFR, AMM #### [address] [address] Platelet mean volume (Bld) [Entitic vol] 7.7 fL Normal 6.6-10.5 [facility] ([place]) Comment on above: Performed By: #### A UNRULY, VALPR, CBC, ADIFF, BMP, GFR, AMM #### [address] [address] RBC 3.90 10 6/mcL Low 4.10-5.30 [facility] ([place]) Comment on above: Performed By: #### A UNRULY, VALPR, CBC, ADIFF, BMP, GFR, AMM #### [address] [address] WBC 9.9 10 3/mcL Normal 4.5-10.8 [facility] ([place]) Comment on above: Performed By: #### A UNRULY, VALPR, CBC, ADIFF, BMP, GFR, AMM #### [address] [address] CMPon 08-08-2023 Albumin Level 2.7 G/dL Low 3.2-4.8 [facility] ([place]) Comment on above: Performed By: #### A UNRULY, VALPR, CBC, ADIFF, BMP, GFR, AMM #### [place] [id number] Albumin/Globulin [Mass ratio] 0.6 {ratio} Low 0.9-1.6 [facility] ([place]) Comment on above: Performed By: #### A UNRULY, VALPR, CBC, ADIFF, BMP, GFR, AMM #### [place] [id number] ALP [Catalytic activity/Vol] 52 U/L Normal 38-126 [facility] ([place]) Comment on above: Performed By: #### A UNRULY, VALPR, CBC, ADIFF, BMP, GFR, AMM #### [address] [address] ALT [Catalytic activity/Vol] 30 U/L Normal 10-49 [facility] ([place]) Comment on above: Performed By: #### A UNRULY, VALPR, CBC, ADIFF, BMP, GFR, AMM #### [address] [address] AST [Catalytic activity/Vol] 48 U/L High 8-34 [facility] ([place]) Comment on above: Performed By: #### A UNRULY, VALPR, CBC, ADIFF, BMP, GFR, AMM #### [address] [address] Bili Total 0.30 mg/dL Normal 0.20-1.20 [facility] ([place]) Comment on above: Result Comment: Use of this assay is not recommended for patients undergoing treatment with eltrombopag due to the potential for falsely elevated results. Performed By: #### A UNRULY, VALPR, CBC, ADIFF, BMP, GFR, AMM #### [address] [address] BUN/Creatinine Ratio 28.0 ratio High 10.0-22.0 [facility] ([place]) Comment on above: Performed By: #### A UNRULY, VALPR, CBC, ADIFF, BMP, GFR, AMM #### [address] [address] Calcium [Mass/Vol] 8.5 mg/dL Low 8.7-10.4 [facility] ([place]) Comment on above: Performed By: #### A UNRULY, VALPR, CBC, ADIFF, BMP, GFR, AMM #### [address] [address] Chloride [Moles/Vol] 110 mmol/L Normal 98-110 [facility] ([place]) Comment on above: Performed By: #### A UNRULY, VALPR, CBC, ADIFF, BMP, GFR, AMM #### [address] [address] CO2 [Moles/Vol] 22 mmol/L Normal 22-32 [facility] ([place]) Comment on above: Performed By: #### A UNRULY, VALPR, CBC, ADIFF, BMP, GFR, AMM #### [address] [address] Creatinine [Mass/Vol] 0.75 mg/dL Normal 0.50-1.20 [facility] ([place]) Comment on above: Performed By: #### A UNRULY, VALPR, CBC, ADIFF, BMP, GFR, AMM #### [address] [address] Electrolyte Balance 6.0 mEq/L Normal 4.0-15.0 [facility] ([place]) Comment on above: Performed By: #### A UNRULY, VALPR, CBC, ADIFF, BMP, GFR, AMM #### [place] [id number] Globulin 4.3 G/dL High 1.5-3.8 [facility] ([place]) Comment on above: Performed By: #### A UNRULY, VALPR, CBC, ADIFF, BMP, GFR, AMM #### [place] [id number] Glucose [Mass/Vol] 77 mg/dL Low 82-115 [facility] ([place]) Comment on above: Performed By: #### A UNRULY, VALPR, CBC, ADIFF, BMP, GFR, AMM #### [place] [id number] Potassium [Moles/Vol] 4.0 mmol/L Normal 3.5-5.0 [facility] ([place]) Comment on above: Performed By: #### A UNRULY, VALPR, CBC, ADIFF, BMP, GFR, AMM #### [address] [address] Sodium [Moles/Vol] 138 mmol/L Normal 136-145 [facility] ([place]) Comment on above: Performed By: #### A UNRULY, VALPR, CBC, ADIFF, BMP, GFR, AMM #### [address] [address] Total Protein 7.0 G/dL Normal 5.7-8.2 [facility] ([place]) Comment on above: Result Comment: No te - New Reference Range in effect 19 Performed By: #### A UNRULY, VALPR, CBC, ADIFF, BMP, GFR, AMM #### [place] [id number] Urea nitrogen [Mass/Vol] 21.0 mg/dL Normal 8.0-22.0 [facility] ([place]) Comment on above: Performed By: #### A UNRULY, VALPR, CBC, ADIFF, BMP, GFR, AMM #### [place] [address] KEPPRAon 08-08-2023 Levetiracetam Lvl 80.8 UG/ML High 10.0-40.0 [facility] ([place]) Comment on above: Result Comment: Perf ormed At: [facility] [address] [id number] Yan Sanchez MD Ph:[phone] Performed By: #### A UNRULY, VALPR, CBC, ADIFF, BMP, GFR, AMM #### [address] [address] LABORATORYOrdered By: SYSTEM SYSTEM on 08-08-2023 Albumin BCP dye [Mass/Vol] 2.7 G/dL Low 3.2 - 4.8 G/dL ADM SS Albumin/Globulin [Mass ratio] 0.6 {ratio} Low 0.9 - 1.6 ratio ADM SS ALP [Catalytic activity/Vol] 52 U/L Normal 38 - 126 U/L ADM SS ALT No additional P-5'-P [Catalytic activity/Vol] 30 U/L Normal 10 - 49 U/L ADM SS Ammonia (P) [Moles/Vol] 30 umol/L Normal 11 - 32 mcmol/L ADM SS AST [Catalytic activity/Vol] 48 U/L High 8 - 34 U/L ADM SS Bilirubin [Mass/Vol] 0.30 mg/dL Normal 0.20 - 1.20 mg/dL AH ADM SS Comment on above: Interpretive Data: U se of this assay is not recommended for patients undergoing treatment with eltrombopag due to the potential for falsely elevated results. Globulin 4.3 G/dL High 1.5 - 3.8 G/dL AH ADM SS Protein [Mass/Vol] 7.0 G/dL Normal 5.7 - 8.2 G/dL AH ADM SS Comment on above: Interpretive Data: * *Note - New Reference Range in effect 19 Valproate [Mass/Vol] 107.6 ug/mL Normal 50.0 - 130.0 mcg/mL AH ADM SS LABORATORYOrdered By: Meenakshi weller on 08-08-2023 LDose Valproic Acid: See eMAR (08/08/23 6:29 AM) Normal AH Chemistry S VALPRon 08-08-2023 LDose Valproic Acid: See eMAR Normal [facility] ([place]) Comment on above: Performed By: #### A UNRULY, VALPR, CBC, ADIFF, BMP, GFR, AMM #### [place] [address] Valproic Acid Lvl 107.6 mcg/mL Normal 50.0-130.0 [facility] ([place]) Comment on above: Performed By: #### A UNRULY, VALPR, CBC, ADIFF, BMP, GFR, AMM #### [address] [address] .Auto Diffon 08-07-2023 Basophil, Absolute 0.0 10 3/mcL Normal 0.0-0.3 [facility] ([place]) Comment on above: Performed By: #### A UNRULY, ADIFF, GFR, CBC, BMP ####[address] [address] Basophils/100 WBC (Bld) 0.3 % Normal 0.0-2.5 A [facility] ([place]) Comment on above: Performed By: #### A UNRULY, ADIFF, GFR, CBC, BMP ####[address] [address] Eosinophil, Absolute 0.2 10 3/mcL Normal 0.0-0.7 [facility] ([place]) Comment on above: Performed By: #### A UNRULY, ADIFF, GFR, CBC, BMP ####[address] [address] Eosinophils/100 WBC (Bld) 1.7 % Normal 0.0-6.0 [facility] ([place]) Comment on above: Performed By: #### A UNRULY, ADIFF, GFR, CBC, BMP ####[address] [address] Lymphocyte, Absolute 3.3 10 3/mcL Normal 0.9-4.3 [facility] ([place]) Comment on above: Performed By: #### A UNRULY, ADIFF, GFR, CBC, BMP ####[address] [address] Lymphocytes/100 WBC (Bld) 26.3 % Normal 20.0-40.0 [facility] ([place]) Comment on above: Performed By: #### A UNRULY, ADIFF, GFR, CBC, BMP ####[address] [address] Monocyte, Absolute 1.4 10 3/mcL Normal 0.1-1.4 [facility] ([place]) Comment on above: Performed By: #### A UNRULY, ADIFF, GFR, CBC, BMP ####[address] [address] Monocytes/100 WBC (Bld) 11.0 % Normal 2.0-13.0 [facility] ([place]) Comment on above: Performed By: #### A UNRULY, ADIFF, GFR, CBC, BMP ####[address] [address] Neutrophils/100 WBC (Bld) 60.7 % Normal 50.0-75.0 [facility] ([place]) Comment on above: Performed By: #### A UNRULY, ADIFF, GFR, CBC, BMP ####[address] [address] .GFRon 08-07-2023 GFR Non- >60 Normal [facility] ([place]) Comment on above: Result Comment: GFR Population mean for , Non- Americans Ages 20-29 = 116 mL/min/1.73 sq.m. Ages 30-39 = 107 mL/min/1.73 sq.m. Ages 40-49 = 99 mL/min/1.73 sq.m. Ages 50-59 = 93 mL/min/1.73 sq.m. Ages 60-69 = 85 mL/min/1.73 sq.m. Ages 70+ = 75 mL/min/1.73 sq.m. Chronic Kidney Disease: Less than 60 mL/min/1.73 square meters End Stage Renal Disease: Less than 15 mL/min/1.73 square meters Performed By: #### A UNRULY, ADIFF, GFR, CBC, BMP ####[place] [address] GFR >60 Normal [facility] ([place]) Comment on above: Result Comment: GFR Population mean for , Non- Americans Ages 20-29 = 116 mL/min/1.73 sq.m. Ages 30-39 = 107 mL/min/1.73 sq.m. Ages 40-49 = 99 mL/min/1.73 sq.m. Ages 50-59 = 93 mL/min/1.73 sq.m. Ages 60-69 = 85 mL/min/1.73 sq.m. Ages 70+ = 75 mL/min/1.73 sq.m. Chronic Kidney Disease: Less than 60 mL/min/1.73 square meters End Stage Renal Disease: Less than 15 mL/min/1.73 square meters Performed By: #### A UNRULY, ADIFF, GFR, CBC, BMP ####[place] [address] .NEUABSon 08-07-2023 Neutrophil, Absolute 7.6 10 3/mcL Normal 2.3-8.1 [facility] ([place]) Comment on above: Performed By: #### A UNRULY, ADIFF, GFR, CBC, BMP ####[place] [address] BMPon 08-07-2023 BUN/Creatinine Ratio 25.0 ratio High 10.0-22.0 [facility] ([place]) Comment on above: Performed By: #### A UNRULY, ADIFF, GFR, CBC, BMP ####[address] [address] Calcium [Mass/Vol] 9.0 mg/dL Normal 8.7-10.4 [facility] ([place]) Comment on above: Performed By: #### A UNRULY, ADIFF, GFR, CBC, BMP ####[address] [address] Chloride [Moles/Vol] 107 mmol/L Normal 98-110 [facility] ([place]) Comment on above: Performed By: #### A UNRULY, ADIFF, GFR, CBC, BMP ####[address] [address] CO2 [Moles/Vol] 23 mmol/L Normal 22-32 [facility] ([place]) Comment on above: Performed By: #### A UNRULY, ADIFF, GFR, CBC, BMP ####[place] [address] Creatinine [Mass/Vol] 0.80 mg/dL Normal 0.50-1.20 [facility] ([place]) Comment on above: Performed By: #### A UNRULY, ADIFF, GFR, CBC, BMP ####[place] [address] Electrolyte Balance 7.0 mEq/L Normal 4.0-15.0 [facility] ([place]) Comment on above: Performed By: #### A UNRULY, ADIFF, GFR, CBC, BMP ####[address] [address] Glucose [Mass/Vol] 82 mg/dL Normal 82-115 [facility] ([place]) Comment on above: Performed By: #### A UNRULY, ADIFF, GFR, CBC, BMP ####[address] [address] Potassium [Moles/Vol] 4.1 mmol/L Normal 3.5-5.0 [facility] ([place]) Comment on above: Performed By: #### A UNRULY, ADIFF, GFR, CBC, BMP ####[place] [address] Sodium [Moles/Vol] 137 mmol/L Normal 136-145 [facility] ([place]) Comment on above: Performed By: #### A UNRULY, ADIFF, GFR, CBC, BMP ####[place] [address] Urea nitrogen [Mass/Vol] 20.0 mg/dL Normal 8.0-22.0 [facility] ([place]) Comment on above: Performed By: #### A UNRULY, ADIFF, GFR, CBC, BMP ####[place] [address] CBCon 08-07-2023 Erythrocyte distribution width (RBC) [Ratio] 15.7 % High 11.5-15.5 [facility] ([place]) Comment on above: Performed By: #### A UNRULY, VALPR, CBC, ADIFF, BMP, GFR, AMM #### [place] [address] Hematocrit (Bld) [Volume fraction] 31.6 % Low 34.0-46.0 [facility] ([place]) Comment on above: Performed By: #### A UNRULY, VALPR, CBC, ADIFF, BMP, GFR, AMM #### [place] [address] Hgb 10.8 G/dL Low 12.0-16.0 [facility] ([place]) Comment on above: Performed By: #### A UNRULY, VALPR, CBC, ADIFF, BMP, GFR, AMM #### [place] [address] MCH (RBC) [Entitic mass] 28.7 pg Normal 27.0-33.0 [facility] ([place]) Comment on above: Performed By: #### A UNRULY, VALPR, CBC, ADIFF, BMP, GFR, AMM #### [place] [address] MCHC 34.3 G/dL Normal 32.0-36.0 [facility] ([place]) Comment on above: Performed By: #### A UNRULY, VALPR, CBC, ADIFF, BMP, GFR, AMM #### [facility] [address] [place], [place] [address] MCV (RBC) [Entitic vol] 83.7 fL Normal 80.0-99.0 A [facility] ([place]) Comment on above: Performed By: #### A UNRULY, VALPR, CBC, ADIFF, BMP, GFR, AMM #### [place] [address] Platelet 267 10 3/mcL Normal 150-450 [facility] ([place]) Comment on above: Performed By: #### A UNRULY, VALPR, CBC, ADIFF, BMP, GFR, AMM #### [address] [address] Platelet mean volume (Bld) [Entitic vol] 7.5 fL Normal 6.6-10.5 [facility] ([place]) Comment on above: Performed By: #### A UNRULY, VALPR, CBC, ADIFF, BMP, GFR, AMM #### [place] [id number] RBC 3.78 10 6/mcL Low 4.10-5.30 [facility] ([place]) Comment on above: Performed By: #### A UNRULY, VALPR, CBC, ADIFF, BMP, GFR, AMM #### [place] [id number] WBC 12.5 10 3/mcL High 4.5-10.8 [facility] ([place]) Comment on above: Performed By: #### A UNRULY, VALPR, CBC, ADIFF, BMP, GFR, AMM #### [address] [address] [place] MAMMOGRAM SCREENING BILAT ERAL W/TOMOon 08-07-2023 MA MAMMOGRAM SCREENING BILATERAL W/TOMASZ ORIGINAL FROM: [facility] [address] [place], [place] [address] PROCEDURE FOR: NAI HERNANDEZ [address] [place] [address] Home: PID#: [id number] Exam#: [id number] : 1955 Age: 67 TO: FISH JORDAN [employer] [address] [address] Fax: NO FAX EXAMINATION: SCREENING DIGITAL BILATERAL MAMMOGRAM WITH TOMOSYNTHESIS, 08/02/2023 10:33 am TECHNIQUE: Screening mammography of the bilateral breasts was performed with tomosynthesis. 2D standard and 3D tomosynthesis combination imaging performed through both breasts in the MLO and CC projection. Computer aided detection was utilized in the interpretation of this exam. COMPARISON: 04/11/2022, 09/18/2019 HISTORY: Breast cancer screening. FINDINGS: BREAST DENSITY: Heterogeneously dense There are benign calcifications in both breasts. There are no significant masses or calcifications. IMPRESSION: No mammographic evidence of malignancy. Continued screening with annual mammograms is recommended. Ruth Ann Webber risk calculations, generated with the history provided, report this patient's 10 year risk and lifetime risk for developing breast cancer at 4.9% and 9.7%, respectively. Based on this assessment tool, if the patient's calculated lifetime risk is below 20%, then the patient is considered at average risk for developing breast cancer. If the patient's calculated lifetime risk is at or above 20%, then the patient is considered high risk for developing breast cancer and may be a candidate for supplemental breast MRI screening in addition to annual mammographic screening per the [employer]. I have personally reviewed the images of this examination and agree with the resident's findings and interpretation. BIRADS: MAMMOGRAM BI-RADS: 2: Benign finding RECALL: 1 year screening RECALL TYPE: mammo LETTER SENT: Normal BI-RADS 1 and 2 Interpreted by: Kassi Ngo Preliminary Report By: Delphine Crystal Electronically signed By Kassi Ngo Dictated Date: 08/07/2023 1:44:03 PM Prelim Date: 08/07/2023 6:23:16 PM Sign Date: 08/07/2023 6:23:16 PM Ordering Provider: FISH JORDAN Hospice Fellow: MYRTLE HOUSER RT(R)(M)(CT) letter sent: Normal BI-RADS 1 and 2 Mammogram BI-RADS: 2 Benign Normal [facility] ([place]) .Auto Diffon 08-06-2023 Basophil, Absolute 0.1 10 3/mcL Normal 0.0-0.3 [facility] ([place]) Comment on above: Performed By: #### A UNRULY, VALPR, CBC, ADIFF, BMP, GFR, AMM #### [address] [address] Basophils/100 WBC (Bld) 0.6 % Normal 0.0-2.5 A [facility] ([place]) Comment on above: Performed By: #### A UNRULY, VALPR, CBC, ADIFF, BMP, GFR, AMM #### [address] [address] Eosinophil, Absolute 0.1 10 3/mcL Normal 0.0-0.7 [facility] ([place]) Comment on above: Performed By: #### A UNRULY, VALPR, CBC, ADIFF, BMP, GFR, AMM #### [address] [address] Eosinophils/100 WBC (Bld) 0.7 % Normal 0.0-6.0 [facility] ([place]) Comment on above: Performed By: #### A UNRULY, VALPR, CBC, ADIFF, BMP, GFR, AMM #### [address] [address] Lymphocyte, Absolute 3.0 10 3/mcL Normal 0.9-4.3 [facility] ([place] Comment on above: Performed By: #### A UNRULY, VALPR, CBC, ADIFF, BMP, GFR, AMM #### [address] [address] Lymphocytes/100 WBC (Bld) 24.9 % Normal 20.0-40.0 [facility] ([place]) Comment on above: Performed By: #### A UNRULY, VALPR, CBC, ADIFF, BMP, GFR, AMM #### [address] [address] Monocyte, Absolute 1.8 10 3/mcL High 0.1-1.4 [facility] ([place]) Comment on above: Performed By: #### A UNRULY, VALPR, CBC, ADIFF, BMP, GFR, AMM #### [address] [address] Monocytes/100 WBC (Bld) 14.5 % High 2.0-13.0 A [facility] ([place] Comment on above: Performed By: #### A UNRULY, VALPR, CBC, ADIFF, BMP, GFR, AMM #### [address] [address] Neutrophils/100 WBC (Bld) 59.3 % Normal 50.0-75.0 [facility] ([place]) Comment on above: Performed By: #### A UNRULY, VALPR, CBC, ADIFF, BMP, GFR, AMM #### [address] [address] .GFRon 08-06-2023 GFR Non- >60 Normal [facility] ([place]) Comment on above: Result Comment: GFR Population mean for , Non- Americans Ages 20-29 = 116 mL/min/1.73 sq.m. Ages 30-39 = 107 mL/min/1.73 sq.m. Ages 40-49 = 99 mL/min/1.73 sq.m. Ages 50-59 = 93 mL/min/1.73 sq.m. Ages 60-69 = 85 mL/min/1.73 sq.m. Ages 70+ = 75 mL/min/1.73 sq.m. Chronic Kidney Disease: Less than 60 mL/min/1.73 square meters End Stage Renal Disease: Less than 15 mL/min/1.73 square meters Performed By: #### A UNRULY, VALPR, CBC, ADIFF, BMP, GFR, AMM #### [address] [address] GFR >60 Normal [facility] ([place]) Comment on above: Result Comment: GFR Population mean for , Non- Americans Ages 20-29 = 116 mL/min/1.73 sq.m. Ages 30-39 = 107 mL/min/1.73 sq.m. Ages 40-49 = 99 mL/min/1.73 sq.m. Ages 50-59 = 93 mL/min/1.73 sq.m. Ages 60-69 = 85 mL/min/1.73 sq.m. Ages 70+ = 75 mL/min/1.73 sq.m. Chronic Kidney Disease: Less than 60 mL/min/1.73 square meters End Stage Renal Disease: Less than 15 mL/min/1.73 square meters Performed By: #### A UNRULY, VALPR, CBC, ADIFF, BMP, GFR, AMM #### [address] [address] .NEUABSon 08-06-2023 Neutrophil, Absolute 7.1 10 3/mcL Normal 2.3-8.1 [facility] ([place] Comment on above: Performed By: #### A UNRULY, VALPR, CBC, ADIFF, BMP, GFR, AMM #### [address] [address] BMPon 08-06-2023 BUN/Creatinine Ratio 17.7 ratio Normal 10.0-22.0 [facility] ([place]) Comment on above: Performed By: #### A UNRULY, VALPR, CBC, ADIFF, BMP, GFR, AMM #### [address] [address] Calcium [Mass/Vol] 9.4 mg/dL Normal 8.7-10.4 [facility] ([place] Comment on above: Performed By: #### A UNRULY, VALPR, CBC, ADIFF, BMP, GFR, AMM #### [address] [address] Chloride [Moles/Vol] 102 mmol/L Normal 98-110 [facility] ([place]) Comment on above: Performed By: #### A UNRULY, VALPR, CBC, ADIFF, BMP, GFR, AMM #### [address] [address] CO2 [Moles/Vol] 24 mmol/L Normal 22-32 [facility] ([place]) Comment on above: Performed By: #### A UNRULY, VALPR, CBC, ADIFF, BMP, GFR, AMM #### [address] [address] Creatinine [Mass/Vol] 0.79 mg/dL Normal 0.50-1.20 [facility] ([place]) Comment on above: Performed By: #### A UNRULY, VALPR, CBC, ADIFF, BMP, GFR, AMM #### [address] [address] Electrolyte Balance 8.0 mEq/L Normal 4.0-15.0 [facility] ([place]) Comment on above: Performed By: #### A UNRULY, VALPR, CBC, ADIFF, BMP, GFR, AMM #### [place] [id number] Glucose [Mass/Vol] 96 mg/dL Normal 82-115 [facility] ([place] Comment on above: Performed By: #### A UNRULY, VALPR, CBC, ADIFF, BMP, GFR, AMM #### [place] [id number] Potassium [Moles/Vol] 4.1 mmol/L Normal 3.5-5.0 [facility] ([place]) Comment on above: Performed By: #### A UNRULY, VALPR, CBC, ADIFF, BMP, GFR, AMM #### [place] [id number] Sodium [Moles/Vol] 134 mmol/L Low 136-145 [facility] ([place]) Comment on above: Performed By: #### A UNRULY, VALPR, CBC, ADIFF, BMP, GFR, AMM #### [place] [id number] Urea nitrogen [Mass/Vol] 14.0 mg/dL Normal 8.0-22.0 [facility] ([place]) Comment on above: Performed By: #### A UNRULY, VALPR, CBC, ADIFF, BMP, GFR, AMM #### [address] [address] CBCon 08-06-2023 Erythrocyte distribution width (RBC) [Ratio] 15.2 % Normal 11.5-15.5 [facility] ([place]) Comment on above: Performed By: #### A UNRULY, VALPR, CBC, ADIFF, BMP, GFR, AMM #### [place] [id number] Hematocrit (Bld) [Volume fraction] 32.3 % Low 34.0-46.0 [facility] ([place]) Comment on above: Performed By: #### A UNRULY, VALPR, CBC, ADIFF, BMP, GFR, AMM #### [place] [address] Hgb 11.1 G/dL Low 12.0-16.0 [facility] ([place]) Comment on above: Performed By: #### A UNRULY, VALPR, CBC, ADIFF, BMP, GFR, AMM #### [place] [address] MCH (RBC) [Entitic mass] 28.7 pg Normal 27.0-33.0 [facility] ([place]) Comment on above: Performed By: #### A UNRULY, VALPR, CBC, ADIFF, BMP, GFR, AMM #### [place] [address] MCHC 34.5 G/dL Normal 32.0-36.0 [facility] ([place]) Comment on above: Performed By: #### A UNRULY, VALPR, CBC, ADIFF, BMP, GFR, AMM #### [place] [address] MCV (RBC) [Entitic vol] 83.2 fL Normal 80.0-99.0 A [facility] ([place]) Comment on above: Performed By: #### A UNRULY, VALPR, CBC, ADIFF, BMP, GFR, AMM #### [place] [address] Platelet 230 10 3/mcL Normal 150-450 [facility] ([place]) Comment on above: Performed By: #### A UNRULY, VALPR, CBC, ADIFF, BMP, GFR, AMM #### [place] [address] Platelet mean volume (Bld) [Entitic vol] 8.4 fL Normal 6.6-10.5 [facility] ([place]) Comment on above: Performed By: #### A UNRULY, VALPR, CBC, ADIFF, BMP, GFR, AMM #### [place] [address] RBC 3.88 10 6/mcL Low 4.10-5.30 [facility] ([place]) Comment on above: Performed By: #### A UNRULY, VALPR, CBC, ADIFF, BMP, GFR, AMM #### [address] [address] WBC 12.1 10 3/mcL High 4.5-10.8 [facility] ([place]) Comment on above: Performed By: #### A UNRULY, VALPR, CBC, ADIFF, BMP, GFR, AMM #### [place] [id number] [address] [place] [address] LABORATORYOrdered By: Keshia Vasquez on 08-06-2023 Osmolality (U) [Osmolality] 568 mosm/kg Normal 390 - 1090 mOsm/kg Manual Chem SS LABORATORYOrdered By: Mary Blas on 08-06-2023 Sodium (U) [Moles/Vol] 64 mmol/L Invalid Interpretation Code AH ADM SS LABORATORYOrdered By: Cheryl Almanzar on 08-06-2023 Appearance (U) Clear (08/06/23 3:38 PM) Normal Clear Auto Urine SS Bilirubin Ql (U) Negative (08/06/23 3:38 PM) Normal Neg-Trace AH Auto Urine SS Color (U) Yellow (08/06/23 3:38 PM) Normal AH Auto Urine SS Glucose Test strip (U) [Mass/Vol] Negative Normal Negative AH Auto Urine SS Hemoglobin Auto test strip (U) [Mass/Vol] Negative (08/06/23 3:38 PM) Normal Neg-Trace AH Auto Urine SS Ketones Ql (U) Trace mg/dL Normal Neg-Trace AH Auto U rine SS UA Leuk Est Small *ABN* (08/06/23 3:38 PM) Invalid Interpretation Code Negative AH Auto Urine SS UA Nitrite Negative (08/06/23 3:38 PM) Normal Negative AH Auto Urine SS UA pH 6.5 (08/06/23 3:38 PM) Normal 5.0 - 8.0 AH Auto Urine SS UA Protein Negative Normal Negative Auto Urine SS UA RBC Rare /HPF Normal 0-2 Auto Urine SS UA Spec Grav 1.020 (08/06/23 3:38 PM) Normal 1.006-1.029 Auto Urine SS UA Specimen Type Clean Catch (08/06/23 3:38 PM) Normal AH Auto Urine SS UA Squam Epithelial 0-2 /HPF Normal 0-20 AH Au to Urine SS UA Transitional Epithelial 3-5 /HPF Normal AH Auto Urine SS UA Urobilinogen 1.0 E.U./dL Normal 0.2-1.0 AH Auto Urine SS WBC LM.HPF (Urine sed) [#/Area] 3-5 /HPF Normal 0-5 AH Auto Urine SS NAURon 08-06-2023 Sodium [Moles/Vol] 64 mmol/L Normal [facility] ([place]) Comment on above: Performed By: #### A UNRULY, VALPR, CBC, ADIFF, BMP, GFR, AMM #### [address] [id number] No Panel Informationon 08-05 Microscopic examination of blood, culture Blood Culture: No Growth at 5 days. [facility] OSMOUon 08-06-2023 U Osmolality 568 mOsm/kg Normal [id number] [facility] ([place]) Comment on above: Performed By: #### A UNRULY, VALPR, CBC, ADIFF, BMP, GFR, AMM #### [address] [id number] SPEon 08-06-2023 SPE Interpretation There is polyclonal hypergammaglobulinem ia. This may be seen in chronic inflammatory or infectious diseases, or in patients receiving intravenous immunoglobulin therapy. Normal [facility] ([place]) Comment on above: Result Comment: Elec tronically Signed by: SELINA CEDILLO 08/06/2023 15:08 EDT Performed By: #### A UNRULY, VALPR, CBC, ADIFF, BMP, GFR, AMM #### [address] [address] Albumin 3.4 G/dL Normal 3.3-5.0 [facility] ([place]) Comment on above: Performed By: #### A UNRULY, VALPR, CBC, ADIFF, BMP, GFR, AMM #### [address] [address] Alpha 1 0.2 G/dL Normal 0.1-0.4 [facility]) Comment on above: Performed By: #### A UNRULY, VALPR, CBC, ADIFF, BMP, GFR, AMM #### [address] [address] Alpha 2 1.1 G/dL Normal 0.6-1.2 [facility] ([place]) Comment on above: Performed By: #### A UNRULY, VALPR, CBC, ADIFF, BMP, GFR, AMM #### [address] [address] Beta 1.3 G/dL Normal 0.6-1.3 [facility] ([place]) Comment on above: Performed By: #### A UNRULY, VALPR, CBC, ADIFF, BMP, GFR, AMM #### [place] [id number] Gamma 2.3 G/dL High 0.7-1.6 [facility] ([place]) Comment on above: Performed By: #### A UNRULY, VALPR, CBC, ADIFF, BMP, GFR, AMM #### [place] [address] UAon 08-06-2023 Color (U) Yellow Normal [facility] ([place]) Comment on above: Performed By: #### A UNRULY, VALPR, CBC, ADIFF, BMP, GFR, AMM #### [address] [address] Glucose (U) [Mass/Vol] Negative Normal Negative [facility] ([place]) Comment on above: Performed By: #### A UNRULY, VALPR, CBC, ADIFF, BMP, GFR, AMM #### [address] [address] Ketones Ql (U) Trace Normal Neg-Trace [facility] ([place]) Comment on above: Performed By: #### A UNRULY, VALPR, CBC, ADIFF, BMP, GFR, AMM #### [address] [address] UA Appear Clear Normal Clear [facility] ([place]) Comment on above: Performed By: #### A UNRULY, VALPR, CBC, ADIFF, BMP, GFR, AMM #### [address] [address] UA Blood Negative Normal Neg-Trace [facility] ([place]) Comment on above: Performed By: #### A UNRULY, VALPR, CBC, ADIFF, BMP, GFR, AMM #### [address] [address] UA Leuk Est Small Abnormal Negative [facility] ([place]) Comment on above: Performed By: #### A UNRULY, VALPR, CBC, ADIFF, BMP, GFR, AMM #### [address] [address] UA Nitrite Negative Normal Negative [facility] ([place]) Comment on above: Performed By: #### A UNRULY, VALPR, CBC, ADIFF, BMP, GFR, AMM #### [address] [address] UA pH 6.5 Normal 5.0 - 8.0 [facility] ([place]) Comment on above: Performed By: #### A UNRULY, VALPR, CBC, ADIFF, BMP, GFR, AMM #### [address] [address] UA Protein Negative Normal Negative [facility] ([place]) Comment on above: Performed By: #### A UNRULY, VALPR, CBC, ADIFF, BMP, GFR, AMM #### [address] [address] UA Spec Grav 1.020 Normal 1.006-1.029 [facility] ([place]) Comment on above: Performed By: #### A UNRULY, VALPR, CBC, ADIFF, BMP, GFR, AMM #### [address] [address] UA Specimen Type Clean Catch Normal [facility] ([place]) Comment on above: Performed By: #### A UNRULY, VALPR, CBC, ADIFF, BMP, GFR, AMM #### [address] [address] UA Urobilinogen 1.0 E.U./dL Normal 0.2-1.0 [facility] ([place]) Comment on above: Performed By: #### A UNRULY, VALPR, CBC, ADIFF, BMP, GFR, AMM #### [address] [address] Urobilinogen (U) [Mass/Vol] Negative Normal Neg-Trace [facility] ([place]) Comment on above: Performed By: #### A UNRULY, VALPR, CBC, ADIFF, BMP, GFR, AMM #### [address] [address] UAMICon 08-06-2023 UA RBC Rare Normal 0-2 [facility] ([place]) Comment on above: Performed By: #### A UNRULY, VALPR, CBC, ADIFF, BMP, GFR, AMM #### [address] [address] UA Squam Epithelial 0-2 Normal 0-20 [facility] ([place]) Comment on above: Performed By: #### A UNRULY, VALPR, CBC, ADIFF, BMP, GFR, AMM #### [address] [address] UA Transitional Epithelial 3-5 Normal [facility] ([place]) Comment on above: Performed By: #### A UNRULY, VALPR, CBC, ADIFF, BMP, GFR, AMM #### [address] [address] UA WBC 3-5 Normal 0-5 [facility] ([place]) Comment on above: Performed By: #### A UNRULY, VALPR, CBC, ADIFF, BMP, GFR, AMM #### [place] [address] XR CHEST 1 VIEWon 08-06-2023 XR CHEST 1 VIEW ORIGINAL EXAMINATION: ONE XRAY VIEW OF THE CHEST 08/06/2023 10:16 am COMPARISON: Prior chest x-ray dated 08/04/2023. HISTORY: ORDERING SYSTEM PROVIDED HISTORY: Reason for Exam: concern for aspiration FINDINGS: The cardiomediastinal silhouette is stable in appearance. Improved aeration of the right lung compared to the prior exam. Left perihilar densities are similar compared to prior with a differential including hypoventilation, mild vascular congestion, or a bronchitis/bronchiol itis. No overt consolidation is seen. There is no pleural effusion or pneumothorax. IMPRESSION: - Improved aeration of the right lung compared to the prior exam. - Left perihilar densities are similar compared to prior with a differential including hypoventilation, mild vascular congestion, or a bronchitis/bronchiol itis. Interpreted by: Sharon Moore MD Preliminary Report By: Sharon Moore MD Electronically signed By Sharon Moore MD Dictated Date: 08/06/2023 10:42:16 AM Prelim Date: 08/06/2023 10:43:49 AM Sign Date: 08/06/2023 10:43:49 AM Ordering Provider: BRITT Castro [facility] ([place]) .Auto Diffon 08-05-2023 Basophil, Absolute 0.1 10 3/mcL Normal 0.0-0.3 [facility] ([place]) Comment on above: Performed By: #### A DIFF, GFR, OSMOS, CBC, BMP, ANEU ####[address] [address] Basophils/100 WBC (Bld) 0.3 % Normal 0.0-2.5 A [facility] ([place]) Comment on above: Performed By: #### A DIFF, GFR, OSMOS, CBC, BMP, ANEU ####[address] [address] Eosinophil, Absolute 0.0 10 3/mcL Normal 0.0-0.7 [facility] ([place]) Comment on above: Performed By: #### A DIFF, GFR, OSMOS, CBC, BMP, ANEU ####[address] [address] Eosinophils/100 WBC (Bld) 0.1 % Normal 0.0-6.0 [facility] ([place]) Comment on above: Performed By: #### A DIFF, GFR, OSMOS, CBC, BMP, ANEU ####[address] [address] Lymphocyte, Absolute 3.3 10 3/mcL Normal 0.9-4.3 [facility] ([place]) Comment on above: Performed By: #### A DIFF, GFR, OSMOS, CBC, BMP, ANEU ####[address] [address] Lymphocytes/100 WBC (Bld) 20.1 % Normal 20.0-40.0 [facility] ([place]) Comment on above: Performed By: #### A DIFF, GFR, OSMOS, CBC, BMP, ANEU ####[address] [address] Monocyte, Absolute 2.2 10 3/mcL High 0.1-1.4 [facility] ([place]) Comment on above: Performed By: #### A DIFF, GFR, OSMOS, CBC, BMP, ANEU ####[address] [address] Monocytes/100 WBC (Bld) 13.4 % High 2.0-13.0 A [facility] ([place]) Comment on above: Performed By: #### A DIFF, GFR, OSMOS, CBC, BMP, ANEU ####[address] [address] Neutrophils/100 WBC (Bld) 66.1 % Normal 50.0-75.0 [facility] ([place]) Comment on above: Performed By: #### A DIFF, GFR, OSMOS, CBC, BMP, ANEU ####[address] [address] .GFRon 08-05-2023 GFR >60 Normal [facility] ([place]) Comment on above: Result Comment: GFR Population mean for , Non- Americans Ages 20-29 = 116 mL/min/1.73 sq.m. Ages 30-39 = 107 mL/min/1.73 sq.m. Ages 40-49 = 99 mL/min/1.73 sq.m. Ages 50-59 = 93 mL/min/1.73 sq.m. Ages 60-69 = 85 mL/min/1.73 sq.m. Ages 70+ = 75 mL/min/1.73 sq.m. Chronic Kidney Disease: Less than 60 mL/min/1.73 square meters End Stage Renal Disease: Less than 15 mL/min/1.73 square meters Performed By: #### A DIFF, GFR, OSMOS, CBC, BMP, ANEU ####[address] [address] GFR Non- >60 Normal [facility] ([place]) Comment on above: Result Comment: GFR Population mean for , Non- Americans Ages 20-29 = 116 mL/min/1.73 sq.m. Ages 30-39 = 107 mL/min/1.73 sq.m. Ages 40-49 = 99 mL/min/1.73 sq.m. Ages 50-59 = 93 mL/min/1.73 sq.m. Ages 60-69 = 85 mL/min/1.73 sq.m. Ages 70+ = 75 mL/min/1.73 sq.m. Chronic Kidney Disease: Less than 60 mL/min/1.73 square meters End Stage Renal Disease: Less than 15 mL/min/1.73 square meters Performed By: #### A DIFF, GFR, OSMOS, CBC, BMP, ANEU ####[place] [address] .NEUABSon 08-05-2023 Neutrophil, Absolute 11.0 10 3/mcL High 2.3-8.1 A [facility] ([place]) Comment on above: Performed By: #### A DIFF, GFR, OSMOS, CBC, BMP, ANEU ####[address] [address] Gael 08-05-2023 Ammonia 21 mcmol/l Normal 11-32 [facility] ([place]) Comment on above: Performed By: #### A UNRULY, VALPR, CBC, ADIFF, BMP, GFR, AMM #### [address] [address] BMPon 08-05-2023 BUN/Creatinine Ratio 16.9 ratio Normal 10.0-22.0 [facility] ([place]) Comment on above: Performed By: #### A DIFF, GFR, OSMOS, CBC, BMP, ANEU ####[address] [address] Calcium [Mass/Vol] 9.6 mg/dL Normal 8.7-10.4 [facility] ([place]) Comment on above: Performed By: #### A DIFF, GFR, OSMOS, CBC, BMP, ANEU ####[place] [address] Chloride [Moles/Vol] 99 mmol/L Normal 98-110 [facility] ([place]) Comment on above: Performed By: #### A DIFF, GFR, OSMOS, CBC, BMP, ANEU ####[place] [address] CO2 [Moles/Vol] 24 mmol/L Normal 22-32 [facility] ([place]) Comment on above: Performed By: #### A DIFF, GFR, OSMOS, CBC, BMP, ANEU ####[place] [address] Creatinine [Mass/Vol] 0.89 mg/dL Normal 0.50-1.20 [facility] ([place]) Comment on above: Performed By: #### A DIFF, GFR, OSMOS, CBC, BMP, ANEU ####[place] [address] Electrolyte Balance 8.0 mEq/L Normal 4.0-15.0 [facility] ([place]) Comment on above: Performed By: #### A DIFF, GFR, OSMOS, CBC, BMP, ANEU ####[place] [address] Glucose [Mass/Vol] 96 mg/dL Normal 82-115 [facility] ([place]) Comment on above: Performed By: #### A DIFF, GFR, OSMOS, CBC, BMP, ANEU ####[place] [address] Potassium [Moles/Vol] 4.1 mmol/L Normal 3.5-5.0 [facility] ([place]) Comment on above: Performed By: #### A DIFF, GFR, OSMOS, CBC, BMP, ANEU ####[place] [address] Sodium [Moles/Vol] 131 mmol/L Low 136-145 [facility] ([place]) Comment on above: Performed By: #### A DIFF, GFR, OSMOS, CBC, BMP, ANEU ####[place] [id number] Urea nitrogen [Mass/Vol] 15.0 mg/dL Normal 8.0-22.0 [facility] ([place]) Comment on above: Performed By: #### A DIFF, GFR, OSMOS, CBC, BMP, ANEU ####[place] [address] CBCon 08-05-2023 Erythrocyte distribution width (RBC) [Ratio] 15.1 % Normal 11.5-15.5 [facility] ([place]) Comment on above: Performed By: #### A DIFF, GFR, OSMOS, CBC, BMP, ANEU ####[place] [address] Hematocrit (Bld) [Volume fraction] 31.6 % Low 34.0-46.0 [facility] ([place]) Comment on above: Performed By: #### A DIFF, GFR, OSMOS, CBC, BMP, ANEU ####[place] [address] Hgb 10.7 G/dL Low 12.0-16.0 [facility] ([place]) Comment on above: Performed By: #### A DIFF, GFR, OSMOS, CBC, BMP, ANEU ####[place] [address] MCH (RBC) [Entitic mass] 28.3 pg Normal 27.0-33.0 [facility] ([place]) Comment on above: Performed By: #### A DIFF, GFR, OSMOS, CBC, BMP, ANEU ####[place] [address] MCHC 34.0 G/dL Normal 32.0-36.0 [facility] ([place]) Comment on above: Performed By: #### A DIFF, GFR, OSMOS, CBC, BMP, ANEU ####[place] [address] MCV (RBC) [Entitic vol] 83.2 fL Normal 80.0-99.0 A [facility] ([place]) Comment on above: Performed By: #### A DIFF, GFR, OSMOS, CBC, BMP, ANEU ####[place] [address] Platelet 252 10 3/mcL Normal 150-450 [facility] ([place]) Comment on above: Performed By: #### A DIFF, GFR, OSMOS, CBC, BMP, ANEU ####[place] [address] Platelet mean volume (Bld) [Entitic vol] 8.4 fL Normal 6.6-10.5 [facility] ([place]) Comment on above: Performed By: #### A DIFF, GFR, OSMOS, CBC, BMP, ANEU ####[place] [address] RBC 3.80 10 6/mcL Low 4.10-5.30 [facility] ([place]) Comment on above: Performed By: #### A DIFF, GFR, OSMOS, CBC, BMP, ANEU ####[place] [address] WBC 16.6 10 3/mcL High 4.5-10.8 [facility] ([place]) Comment on above: Performed By: #### A DIFF, GFR, OSMOS, CBC, BMP, ANEU ####[place] [address] LABORATORYOrdered By: SYSTEM SYSTEM on 08-05-2023 Ammonia (P) [Moles/Vol] 21 umol/L Normal 11 - 32 mcmol/L AH ADM SS LABORATORYOrdered By: Cheryl Almanzar on 08-05-2023 Osmolality [Osmolality] 275 mosm/kg Normal 275 - 300 mOsm/kg AH Manual Chem SS OSMOSon 08-05-2023 Osmolality [Osmolality] 275 mosm/kg Normal 275-300 [facility] ([place]) Comment on above: Performed By: #### A DIFF, GFR, OSMOS, CBC, BMP, ANEU ####[place] [address] .Auto Diffon 08-04-2023 Basophil, Absolute 0.1 10 3/mcL Normal 0.0-0.2 [facility] ([place]) Comment on above: Performed By: #### A UNRULY, VALPR, CBC, ADIFF, BMP, GFR, AMM #### [address] [address] Basophils/100 WBC (Bld) 0.4 % Normal 0.0-2.5 A [facility] ([place]) Comment on above: Performed By: #### A UNRULY, VALPR, CBC, ADIFF, BMP, GFR, AMM #### [address] [address] Eosinophil, Absolute 0.0 10 3/mcL Normal 0.0-0.4 [facility] ([place]) Comment on above: Performed By: #### A UNRULY, VALPR, CBC, ADIFF, BMP, GFR, AMM #### [address] [address] Eosinophils/100 WBC (Bld) 0.0 % Normal 0.0-7.0 [facility] ([place]) Comment on above: Performed By: #### A UNRULY, VALPR, CBC, ADIFF, BMP, GFR, AMM #### [address] [address] Lymphocyte, Absolute 1.9 10 3/mcL Normal 0.8-3.9 [facility] ([place]) Comment on above: Performed By: #### A UNRULY, VALPR, CBC, ADIFF, BMP, GFR, AMM #### [address] [address] Lymphocytes/100 WBC (Bld) 12.1 % Normal 10.0-50.0 [facility] ([place]) Comment on above: Performed By: #### A UNRULY, VALPR, CBC, ADIFF, BMP, GFR, AMM #### [address] [address] Monocyte, Absolute 0.9 10 3/mcL Normal 0.2-1.0 [facility] ([place]) Comment on above: Performed By: #### A UNRULY, VALPR, CBC, ADIFF, BMP, GFR, AMM #### [address] [address] Monocytes/100 WBC (Bld) 5.6 % Normal 1.7-13.0 [facility] ([place]) Comment on above: Performed By: #### A UNRULY, VALPR, CBC, ADIFF, BMP, GFR, AMM #### [address] [address] Neutrophils/100 WBC (Bld) 81.9 % High 37.0-80.0 [facility] ([place]) Comment on above: Performed By: #### A UNRULY, VALPR, CBC, ADIFF, BMP, GFR, AMM #### [address] [address] .GFRon 08-04-2023 GFR 58 ml/min/1.73sqm Normal [facility] ([place]) Comment on above: Result Comment: GFR Population mean for , Non- Americans Ages 20-29 = 116 mL/min/1.73 sq.m. Ages 30-39 = 107 mL/min/1.73 sq.m. Ages 40-49 = 99 mL/min/1.73 sq.m. Ages 50-59 = 93 mL/min/1.73 sq.m. Ages 60-69 = 85 mL/min/1.73 sq.m. Ages 70+ = 75 mL/min/1.73 sq.m. Chronic Kidney Disease: Less than 60 mL/min/1.73 square meters End Stage Renal Disease: Less than 15 mL/min/1.73 square meters Performed By: #### A UNRULY, VALPR, CBC, ADIFF, BMP, GFR, AMM #### [address] [address] GFR Non- 48 ml/min/1.73sqm Normal [facility] ([place]) Comment on above: Result Comment: GFR Population mean for , Non- Americans Ages 20-29 = 116 mL/min/1.73 sq.m. Ages 30-39 = 107 mL/min/1.73 sq.m. Ages 40-49 = 99 mL/min/1.73 sq.m. Ages 50-59 = 93 mL/min/1.73 sq.m. Ages 60-69 = 85 mL/min/1.73 sq.m. Ages 70+ = 75 mL/min/1.73 sq.m. Chronic Kidney Disease: Less than 60 mL/min/1.73 square meters End Stage Renal Disease: Less than 15 mL/min/1.73 square meters Performed By: #### A UNRULY, VALPR, CBC, ADIFF, BMP, GFR, AMM #### [place] [id number] .MDWon 08-04-2023 Monocyte Distribution Width 16.15 Normal 0.00-20.00 [facility] ([place]) Comment on above: Result Comment: For ED adult patients suspected of sepsis, MDW<=20.0 does not rule out sepsis or risk of sepsis Performed By: #### A UNRULY, VALPR, CBC, ADIFF, BMP, GFR, AMM #### [place] [address] .NEUABSon 08-04-2023 Neutrophil, Absolute 12.9 10 3/mcL High 2.9-6.2 A [facility] ([place]) Comment on above: Performed By: #### A UNRULY, VALPR, CBC, ADIFF, BMP, GFR, AMM #### [place] [address] APTTon 08-04-2023 aPTT Coag (Bld) [Time] 28.3 s Normal 25.0-35.0 [facility] ([place]) Comment on above: Result Comment: For Heparin anticoagulation therapy, the recommended therapeutic range is: 50.6-87.4 seconds. Patients on heparin therapy may have an extreme result. Performed By: #### A UNRULY, VALPR, CBC, ADIFF, BMP, GFR, AMM #### [place] [address] Heparin dose (APTT) Unknown Normal [facility] ([place]) Comment on above: Performed By: #### A UNRULY, VALPR, CBC, ADIFF, BMP, GFR, AMM #### [place] [address] BD BONE DENSITY DEXA AXIAL S KELETONon 08-04-2023 BD BONE DENSITY DEXA AXIAL SKELETON ORIGINAL EXAMINATION: BONE DENSITOMETRY 4 11:13 am TECHNIQUE: Dual energy bone densitometry lumbar spine and left hip. COMPARISON: 09/18/2019 HISTORY: Reason for Exam: Osteoporosis Screening FINDINGS: L1-L4: T score-0.8 BMD-1.135 g/cm2 Left femoral neck: T score--2.3 BMD-0.597 g/cm2 Left hip: T- score--1.8 BMD-0.719 g/cm2 L1-L4 BMD change: +16.3%, significant. Left hip BMD change: +6.1%, significant. FRAX score: Not calculated. The OF f/k/a NOF recommends that FDA-approved medical therapies be considered in post-menopausal women and men age >/= 50 years with a: * Hip or vertebral fracture, or * T-score of /= 20% for major osteoporotic fractures or * >/= 3% for hip fractures All treatment decisions require clinical judgement and consideration of individual patient factors, including patient preferences, comorbidities, previous drug use, risk factors not captured in the FRAX registered model (e.g., frailty, falls, vitamin D deficiency, increased bone turnover, interval significant decline in bone density) and possible under- or over-estimation of fracture risk by FRAX. IMPRESSION: Osteopenia. Interpreted by: Kaila Gama MD Preliminary Report By: Kaila Gama MD Electronically signed By Kaila Gama MD Dictated Date: 08/04/2023 12:36:11 PM Prelim Date: 08/04/2023 12:37:50 PM Sign Date: 08/04/2023 12:37:50 PM Ordering Provider: FISH JORDAN Normal [facility]) [facility] 08-04-2023 BUN/Creatinine Ratio 14 ratio Normal 7-27 [facility]) Comment on above: Performed By: #### A UNRULY, VALPR, CBC, ADIFF, BMP, GFR, AMM #### [address] [address] Calcium [Mass/Vol] 8.6 mg/dL Normal 8.4-10.2 [facility] ([place]) Comment on above: Performed By: #### A UNRULY, VALPR, CBC, ADIFF, BMP, GFR, AMM #### [address] [address] Chloride [Moles/Vol] 94 mmol/L Low 98-107 [facility]) Comment on above: Performed By: #### A UNRULY, VALPR, CBC, ADIFF, BMP, GFR, AMM #### [address] [address] CO2 [Moles/Vol] 23 mmol/L Normal 23-31 [facility] ([place]) Comment on above: Performed By: #### A UNRULY, VALPR, CBC, ADIFF, BMP, GFR, AMM #### [address] [address] Creatinine [Mass/Vol] 1.14 mg/dL High 0.55-1.02 [facility] ([place]) Comment on above: Performed By: #### A UNRULY, VALPR, CBC, ADIFF, BMP, GFR, AMM #### [address] [address] Electrolyte Balance 13.0 mEq/L Normal 4.0-15.0 [facility] ([place]) Comment on above: Performed By: #### A UNRULY, VALPR, CBC, ADIFF, BMP, GFR, AMM #### [address] [address] Glucose [Mass/Vol] 134 mg/dL High 80-115 [facility] ([place]) Comment on above: Performed By: #### A UNRULY, VALPR, CBC, ADIFF, BMP, GFR, AMM #### [address] [address] Potassium [Moles/Vol] 4.3 mmol/L Normal 3.5-5.1 [facility] ([place]) Comment on above: Performed By: #### A UNRULY, VALPR, CBC, ADIFF, BMP, GFR, AMM #### [address] [address] Sodium [Moles/Vol] 130 mmol/L Low 136-145 [facility] ([place]) Comment on above: Performed By: #### A UNRULY, VALPR, CBC, ADIFF, BMP, GFR, AMM #### [address] [address] Urea nitrogen [Mass/Vol] 16 mg/dL Normal 7-18 [facility] ([place]) Comment on above: Performed By: #### A UNRULY, VALPR, CBC, ADIFF, BMP, GFR, AMM #### [place] [address] CBCon 08-04-2023 Erythrocyte distribution width (RBC) [Ratio] 15.1 % High 11.5-14.5 [facility] ([place]) Comment on above: Performed By: #### A UNRULY, VALPR, CBC, ADIFF, BMP, GFR, AMM #### [place] [address] Hematocrit (Bld) [Volume fraction] 32.3 % Low 37.0-47.0 [facility] ([place]) Comment on above: Performed By: #### A UNRULY, VALPR, CBC, ADIFF, BMP, GFR, AMM #### [place] [address] Hgb 11.1 G/dL Low 12.0-16.0 [facility] ([place]) Comment on above: Performed By: #### A UNRULY, VALPR, CBC, ADIFF, BMP, GFR, AMM #### [place] [address] MCH (RBC) [Entitic mass] 28.2 pg Normal 27.0-31.2 [facility] ([place]) Comment on above: Performed By: #### A UNRULY, VALPR, CBC, ADIFF, BMP, GFR, AMM #### [place] [address] MCHC 34.4 G/dL Normal 33.0-37.0 [facility] ([place]) Comment on above: Performed By: #### A UNRULY, VALPR, CBC, ADIFF, BMP, GFR, AMM #### [place] [address] MCV (RBC) [Entitic vol] 82.1 fL Normal 80.0-94.0 A [facility] ([place]) Comment on above: Performed By: #### A UNRULY, VALPR, CBC, ADIFF, BMP, GFR, AMM #### [place] [address] Platelet 243 10 3/mcL Normal 130-400 [facility] ([place]) Comment on above: Performed By: #### A UNRULY, VALPR, CBC, ADIFF, BMP, GFR, AMM #### [address] [address] Platelet mean volume (Bld) [Entitic vol] 7.0 fL Low 7.4-10.4 [facility] ([place]) Comment on above: Performed By: #### A UNRULY, VALPR, CBC, ADIFF, BMP, GFR, AMM #### [place] [address] RBC 3.93 10 6/mcL Low 4.20-5.40 [facility] ([place]) Comment on above: Performed By: #### A UNRULY, VALPR, CBC, ADIFF, BMP, GFR, AMM #### [place] [id number] WBC 15.8 10 3/mcL High 4.6-10.8 [facility] ([place]) Comment on above: Performed By: #### A UNRULY, VALPR, CBC, ADIFF, BMP, GFR, AMM #### [address] [address] [address] ANGIOGRAPHY HEAD W/ CONTR Felipe 08-04-2023 CT ANGIOGRAPHY HEAD W/ CONTRAST ORIGINAL EXAMINATION: CTA OF THE HEAD WITH CONTRAST 08/04/2023 2:56 pm: TECHNIQUE: CTA of the head/brain was performed with the administration of intravenous contrast. Multiplanar reformatted images are provided for review. MIP images are provided for review. Automated exposure control, iterative reconstruction, and/or weight based adjustment of the mA/kV was utilized to reduce the radiation dose to as low as reasonably achievable. 3D surface rendering or volume rendering reconstructions were performed. COMPARISON: 08/04/2023 CTA head HISTORY: ORDERING SYSTEM PROVIDED HISTORY: Reason for Exam: Stroke Emergency FINDINGS: There are small calcified plaques of the internal carotid cavernous segments with mild stenosis. The right middle cerebral artery is patent. The left middle cerebral artery is patent. The right anterior cerebral artery is patent. The left anterior cerebral artery is patent. The bilateral distal vertebral arteries are patent. There is hypoplastic left vertebral artery. The basilar artery is patent. The right posterior cerebral artery is patent. The right posterior communicating artery is patent. The left posterior cerebral artery is patent. There is continuation of the left posterior cerebral artery. There is no aneurysm. OTHER: No dural venous sinus thrombosis on this non-dedicated study. BRAIN: No mass effect or midline shift. No extra-axial fluid collection. The butt-white differentiation is maintained. IMPRESSION: 1. The major intracranial arterial vasculature demonstrates no large vessel occlusion or flow-limiting stenosis. Interpreted by: Nolan Stacy Preliminary Report By: Nolan tSacy Electronically signed By Nolan Stacy Dictated Date: 08/04/2023 3:18:35 PM Prelim Date: 08/04/2023 3:33:32 PM Sign Date: 08/04/2023 3:33:32 PM Ordering Provider: AIDEN MARQUEZ [facility] ([place]) CT ANGIOGRAPHY NECK W/CONTRA STon 08-04-2023 CT ANGIOGRAPHY NECK W/CONTRAST ORIGINAL EXAMINATION: CTA OF THE NECK08/04/2023 3:[address] angiogram neck with intravenous contrast TECHNIQUE: Nonionic intravenous contrast material was administered and axial images were obtained through the neck per standard CTA protocol. Multiplanar reformatted and shaded-surface display and three dimensional volume rendered images were generated. Where applicable, evaluation of ICA stenosis was performed using the site of greatest stenosis is compared to the diameter of the ICA distal to the stenosis at a point where the ICA peter become parallel. RADIATION DOSE REDUCTION: This exam was performed according to the departmental dose-optimization program which includes automated exposure control, adjustment of the mA and/or kV according to patient size and/or use of iterative reconstruction technique. COMPARISON: None. HISTORY: ORDERING SYSTEM PROVIDED HISTORY: Reason for Exam: Stroke Emergency, FINDINGS: There is a 3 vessel aortic arch. The origins of the innominate, bilateral common carotid, bilateral subclavian, and bilateral vertebral arteries demonstrate no significant stenosis. There is no high-grade ICA stenosis. . The bilateral external carotid arteries are patent. The cervical vertebral arteries are patent with the right-side dominant. The left vertebral artery is quite diminutive but patent throughout the neck.. There is no evidence of arterial dissection, occlusion, extravasation of contrast material, arteriovenous fistula, or pseudoaneurysm. The included lung apices show no acute contributory abnormality. There is an incidental 2.2 cm right thyroid nodule.. There is extensive degenerative change in the cervical spine. IMPRESSION: Negative CTA of the neck. No high-grade stenosis or occlusion of the arteries in the neck is seen.. 2.2 cm right thyroid nodule. Suggest nonemergent ultrasound follow-up. RECOMMENDATIONS: Incidental right thyroid nodule measuring 2.2 cm. Recommend non-emergent thyroid ultrasound. Reference: J Am Lance Radiol. 2015 May;12(2): 143-50 Unless otherwise specified, incidental findings do not require dedicated imaging and follow-up. Interpreted by: Victoriano Hernandez MD Preliminary Report By: Victoriano Hernandez MD Electronically signed By Victoriano Hernandez MD Dictated Date: 08/04/2023 3:19:52 PM Prelim Date: 08/04/2023 3:24:32 PM Sign Date: 08/04/2023 3:24:32 PM Ordering Provider: AIDEN MARQUEZ [facility] ([place]) CT HEAD OR BRAIN W/O CONTRAS Ton 08-04-2023 CT HEAD OR BRAIN W/O CONTRAST ORIGINAL EXAMINATION: CT OF THE HEAD WITHOUT CONTRAST08/04/2023 1:[address] HEAD OR BRAIN W/O CONTRAST TECHNIQUE: CT of the head was performed without the administration of intravenous contrast. Automated exposure control, iterative reconstruction, and/or weight based adjustment of the mA/kV was utilized to reduce the radiation dose to as low as reasonably achievable. This exam was performed according to our departmental dose optimization program, and includes the following measures where applicable: automated exposure control, adjustment of the mAs and/or kVp according to patient size and/or exam, and an iterative reconstruction algorithm. Unless otherwise specified, incidental findings do not require dedicated imaging and follow-up. COMPARISON: CT 02/24/2022 HISTORY: ORDERING SYSTEM PROVIDED HISTORY: Reason for Exam: change in mental status/weakness/apha shanti, FINDINGS: FINDINGS There is no evidence of an acute territorial infarct, intracranial hemorrhage, mass effect, midline shift or extra-axial fluid collection. Ventricles and sulci show age-appropriate prominence from atrophy that is stable.. There is hypodensity in the deep cerebral white matter bilaterally consistent with mild chronic microvascular angiopathy. The density in the superior sagittal sinus is normal. No significant calvarial defects. The visualized paranasal sinuses and mastoids are clear. IMPRESSION: No acute infarct or intracranial hemorrhage is seen. Age-appropriate involutional changes. Indicators of chronic microvascular angiopathy in the deep cerebral white matter. COMMENT: Changes resultant from ischemia (even significant ischemia) may often be inapparent on CT exam, particularly if imaged early. Therefore, if symptoms persist, or clinical suspicion for pathology remains, further evaluation may be obtained with follow-up CT or MRI, as clinically feasible. Interpreted by: Victoriano Hernandez MD Preliminary Report By: Victoriano Hernandez MD Electronically signed By Victoriano Hernandez MD Dictated Date: 08/04/2023 2:08:23 PM Prelim Date: 08/04/2023 2:10:24 PM Sign Date: 08/04/2023 2:10:24 PM Ordering Provider: AIDEN Castro [facility] ([place]) LABORATORYOrdered By: Sayda Odonnell on 08-04-2023 aPTT Coag (PPP) [Time] 28.3 s Normal 25.0 - 35.0 seconds AO [facility] SS Comment on above: Interpretive Data: F or Heparin anticoagulation therapy, the recommended therapeutic range is: 50.6-87.4 seconds. Patients on heparin therapy may have an extreme result. Heparin dose (APTT) Unknown (08/04/23 1:37 PM) Normal AO Coagulation S LDose Valproic Acid: See eMAR (08/04/23 1:37 PM) Normal AO Chemistry S LABORATORYOrdered By: SYSTEM SYSTEM on 08-04-2023 Basophil, Absolute 0.1 103/mcL Normal 0.0 - 0.2 10^3/mcL AO Workflow SS Basophils/100 WBC (Bld) 0.4 % Normal 0.0 - 2.5 % AO Workflow SS Calcium [Mass/Vol] 8.6 mg/dL Normal 8.4 - 10. 2 mg/dL AO ADM SS Chloride [Moles/Vol] 94 mmol/L Low 98 - 10 7 mmol/L AO ADM SS CO2 [Moles/Vol] 23 mmol/L Normal 23 - 31 mmol/L AO ADM SS Creatinine [Mass/Vol] 1.14 mg/dL High 0.55 - 1.02 mg/dL AO ADM SS Electrolyte Balance 13.0 mEq/L Normal 4.0 - 15 .0 mEq/L AO ADM SS Eosinophil, Absolute 0.0 103/mcL Normal 0.0 - 0 .4 10^3/mcL AO Workflow SS Eosinophils/100 WBC (Bld) 0.0 % Normal 0.0 - 7.0 % AO Workflow SS Erythrocyte distribution width (RBC) [Ratio] 15.1 % High 11.5 - 14.5 % AO Workflow SS GFR/1.73 sq M.predicted among blacks MDRD (S/P/Bld) [Vol rate/Area] 58 ml/min/1.73sqm Invalid Interpretation Code AO Chemistry S Comment on above: Interpretive Data: GFR Population mean for , Non- Americans Ages 20-29 = 116 mL/min/1.73 sq.m. Ages 30-39 = 107 mL/min/1.73 sq.m. Ages 40-49 = 99 mL/min/1.73 sq.m. Ages 50-59 = 93 mL/min/1.73 sq.m. Ages 60-69 = 85 mL/min/1.73 sq.m. Ages 70+ = 75 mL/min/1.73 sq.m. Chronic Kidney Disease: Less than 60 mL/min/1.73 square meters End Stage Renal Disease: Less than 15 mL/min/1.73 square meters GFR/1.73 sq M.predicted among non-blacks MDRD (S/P/Bld) [Vol rate/Area] 48 ml/min/1.73sqm Invalid Interpretation Code AO Chemistry S Comment on above: Interpretive Data: GFR Population mean for , Non- Americans Ages 20-29 = 116 mL/min/1.73 sq.m. Ages 30-39 = 107 mL/min/1.73 sq.m. Ages 40-49 = 99 mL/min/1.73 sq.m. Ages 50-59 = 93 mL/min/1.73 sq.m. Ages 60-69 = 85 mL/min/1.73 sq.m. Ages 70+ = 75 mL/min/1.73 sq.m. Chronic Kidney Disease: Less than 60 mL/min/1.73 square meters End Stage Renal Disease: Less than 15 mL/min/1.73 square meters Glucose [Mass/Vol] 134 mg/dL High 80 - 115 mg/dL AO ADM SS Hematocrit (Bld) [Volume fraction] 32.3 % Low 37.0 - 47.0 % AO Workflow SS Hemoglobin (Bld) [Mass/Vol] 11.1 G/dL Low 12.0 - 16.0 G/dL AO Workflow SS Lymphocyte, Absolute 1.9 103/mcL Normal 0.8 - 3 .9 10^3/mcL AO Workflow SS Lymphocytes/100 WBC (Bld) 12.1 % Normal 10.0 - 50.0 % AO Workflow SS MCH (RBC) [Entitic mass] 28.2 pg Normal 27.0 - 31.2 pg AO Workflow SS MCHC 34.4 G/dL Normal 33.0 - 37.0 G/dL AO Workflow SS MCV (RBC) [Entitic vol] 82.1 fL Normal 80.0 - 94.0 fL AO Workflow SS Monocyte distribution width Auto (Bld) [Entitic vol] 16.15 1 Normal 0.00 - 20.00 AO Workflow SS Comment on above: Result Comment: For ED adult patients suspected of sepsis, MDW<=20.0 does not rule out sepsis or risk of sepsis Monocyte, Absolute 0.9 103/mcL Normal 0.2 - 1.0 10^3/mcL AO Workflow SS Monocytes/100 WBC (Bld) 5.6 % Normal 1.7 - 13.0 % AO Workflow SS Neutrophil, Absolute 12.9 103/mcL High 2.9 - 6 .2 10^3/mcL AO Workflow SS Neutrophils/100 WBC (Bld) 81.9 % High 37.0 - 80.0 % AO Workflow SS Platelet mean volume (Bld) [Entitic vol] 7.0 fL Low 7.4 - 10.4 fL AO Workflow SS Platelets (Bld) [#/Vol] 243 103/mcL Normal 130 - 400 10^3/mcL AO Workflow SS Potassium [Moles/Vol] 4.3 mmol/L Normal 3.5 - 5.1 mmol/L AO ADM SS RBC (Bld) [#/Vol] 3.93 106/mcL Low 4.20 - 5.4 0 10^6/mcL AO Workflow SS Sodium [Moles/Vol] 130 mmol/L Low 136 - 145 mmol/L AO ADM SS Troponin I.cardiac DL <= 0.01 ng/mL [Mass/Vol] 16 ng/L Normal 0 - 51 ng/L AO ADM SS Comment on above: Interpretive Data: H igh Sensitive Troponin I Reference Ranges: Female: 0-51 ng/L Male: 0-76 ng/L Testing performed on [employer] EXL using a homogeneous sandwich chemiluminescent immunoassay based on [employer] technology. Urea nitrogen [Mass/Vol] 16 mg/dL Normal 7 - 18 mg/dL AO ADM SS Urea nitrogen/Creatinine [Mass ratio] 14 ratio Normal 7 - 27 ratio AO ADM SS Valproate [Mass/Vol] 84 ug/mL Normal 50 - 10 0 mcg/mL AO ADM SS WBC (Bld) [#/Vol] 15.8 103/mcL High 4.6 - 10.8 10^3/mcL AO Workflow SS LABORATORYOrdered By: Fortino Paz on 08-04-2023 Glucose [Mass/Vol] 110 mg/dL Normal 82 - 115 mg/dL [facility] 08-04-2023 High Sensitivity Troponin I 16 ng/L Normal 0-51 [facility] ([place]) Comment on above: Result Comment: High Sensitive Troponin I Reference Ranges: Female: 0-51 ng/L Male: 0-76 ng/L Testing performed on [employer] using a homogeneous sandwich chemiluminescent immunoassay based on [employer]pe[employer] technology. Performed By: #### A UNRULY, VALPR, CBC, ADIFF, BMP, GFR, AMM #### [address] [address] VALPRon 08-04-2023 LDose Valproic Acid: See eMAR Normal [facility] ([place]) Comment on above: Performed By: #### A UNRULY, VALPR, CBC, ADIFF, BMP, GFR, AMM #### [address] [address] Valproic Acid Lvl 84 mcg/mL Normal 50-100 [facility] ([place]) Comment on above: Performed By: #### A UNRULY, VALPR, CBC, ADIFF, BMP, GFR, AMM #### [address] [address] XR CHEST 1 VIEWon 08-04-2023 XR CHEST 1 VIEW ORIGINAL EXAMINATION: ONE XRAY VIEW OF THE CHEST08/04/2023 2:56 pm Supine AP COMPARISON: None HISTORY: ORDERING SYSTEM PROVIDED HISTORY: Reason for Exam: chest pain/SOB, FINDINGS: Normal heart size and mediastinal contours accounting for shallow inspiration and supine posture. There is crowding of lung markings bilaterally creating artifactual densities. No large consolidation, pleural effusion or pneumothorax. No acute skeletal findings or obvious displaced rib fracture. IMPRESSION: No acute cardiopulmonary process accounting for supine posture and hypoventilatory changes. Interpreted by: Victoriano Hernandez MD Preliminary Report By: Victoriano Hernandez MD Electronically signed By Victoriano Hernandez MD Dictated Date: 08/04/2023 3:18:42 PM Prelim Date: 08/04/2023 3:19:38 PM Sign Date: 08/04/2023 3:19:38 PM Ordering Provider: AIDEN MARQUEZ [facility] ([place]) .Auto Diffon 08-02-2023 Basophil, Absolute 0.1 10 3/mcL Normal 0.0-0.2 [facility] ([place]) Comment on above: Performed By: #### A UNRULY, VALPR, CBC, ADIFF, BMP, GFR, AMM #### [address] [address] Basophils/100 WBC (Bld) 0.6 % Normal 0.0-2.5 A [facility] ([place]) Comment on above: Performed By: #### A UNRULY, VALPR, CBC, ADIFF, BMP, GFR, AMM #### [address] [address] Eosinophil, Absolute 0.2 10 3/mcL Normal 0.0-0.4 [facility] ([place]) Comment on above: Performed By: #### A UNRULY, VALPR, CBC, ADIFF, BMP, GFR, AMM #### [address] [address] Eosinophils/100 WBC (Bld) 1.8 % Normal 0.0-7.0 [facility] ([place]) Comment on above: Performed By: #### A UNRULY, VALPR, CBC, ADIFF, BMP, GFR, AMM #### [address] [address] Lymphocyte, Absolute 3.8 10 3/mcL Normal 0.8-3.9 [facility] ([place]) Comment on above: Performed By: #### A UNRULY, VALPR, CBC, ADIFF, BMP, GFR, AMM #### [address] [address] Lymphocytes/100 WBC (Bld) 33.5 % Normal 10.0-50.0 [facility] ([place]) Comment on above: Performed By: #### A UNRULY, VALPR, CBC, ADIFF, BMP, GFR, AMM #### [address] [address] Monocyte, Absolute 1.6 10 3/mcL High 0.2-1.0 [facility] ([place]) Comment on above: Performed By: #### A UNRULY, VALPR, CBC, ADIFF, BMP, GFR, AMM #### [address] [address] Monocytes/100 WBC (Bld) 13.7 % High 1.7-13.0 A [facility] ([place]) Comment on above: Performed By: #### A UNRULY, VALPR, CBC, ADIFF, BMP, GFR, AMM #### [address] [address] Neutrophils/100 WBC (Bld) 50.4 % Normal 37.0-80.0 [facility] ([place]) Comment on above: Performed By: #### A UNRULY, VALPR, CBC, ADIFF, BMP, GFR, AMM #### [address] [address] .GFRon 08-02-2023 GFR Non- 48 ml/min/1.73sqm Normal [facility] ([place]) Comment on above: Result Comment: GFR Population mean for , Non- Americans Ages 20-29 = 116 mL/min/1.73 sq.m. Ages 30-39 = 107 mL/min/1.73 sq.m. Ages 40-49 = 99 mL/min/1.73 sq.m. Ages 50-59 = 93 mL/min/1.73 sq.m. Ages 60-69 = 85 mL/min/1.73 sq.m. Ages 70+ = 75 mL/min/1.73 sq.m. Chronic Kidney Disease: Less than 60 mL/min/1.73 square meters End Stage Renal Disease: Less than 15 mL/min/1.73 square meters Performed By: #### A UNRULY, VALPR, CBC, ADIFF, BMP, GFR, AMM #### [address] [address] GFR 58 ml/min/1.73sqm Normal [facility] ([place]) Comment on above: Result Comment: GFR Population mean for , Non- Americans Ages 20-29 = 116 mL/min/1.73 sq.m. Ages 30-39 = 107 mL/min/1.73 sq.m. Ages 40-49 = 99 mL/min/1.73 sq.m. Ages 50-59 = 93 mL/min/1.73 sq.m. Ages 60-69 = 85 mL/min/1.73 sq.m. Ages 70+ = 75 mL/min/1.73 sq.m. Chronic Kidney Disease: Less than 60 mL/min/1.73 square meters End Stage Renal Disease: Less than 15 mL/min/1.73 square meters Performed By: #### A UNRULY, VALPR, CBC, ADIFF, BMP, GFR, AMM #### [place] [address] .NEUABSon 08-02-2023 Neutrophil, Absolute 5.7 10 3/mcL Normal 2.9-6.2 [facility] ([place]) Comment on above: Performed By: #### A UNRULY, VALPR, CBC, ADIFF, BMP, GFR, AMM #### [place] [address] .Urinalysis Microscopic (AO) on 08-02-2023 UA RBC None Seen Normal None Seen [facility] ([place]) Comment on above: Performed By: #### A UNRULY, VALPR, CBC, ADIFF, BMP, GFR, AMM #### [place] [address] UA Squam Epithelial None Seen Normal None Seen [facility] ([place]) Comment on above: Performed By: #### A UNRULY, VALPR, CBC, ADIFF, BMP, GFR, AMM #### [place] [address] UA WBC 0-5 Abnormal None Seen [facility] ([place]) Comment on above: Performed By: #### A UNRULY, VALPR, CBC, ADIFF, BMP, GFR, AMM #### [place] [address] [id number] 08-02-2023 Complement C3A 164.0 mg/dL Normal 90.0-170.0 [facility] ([place]) Comment on above: Result Comment: No te - New Reference Range in effect 19 Performed By: #### A UNRULY, VALPR, CBC, ADIFF, BMP, GFR, AMM #### [place] [address] Complement C4A 26.0 mg/dL Normal 16.0-38.0 [facility] ([place]) Comment on above: Performed By: #### A UNRULY, VALPR, CBC, ADIFF, BMP, GFR, AMM #### [place] [id number] CBCon 08-02-2023 Erythrocyte distribution width (RBC) [Ratio] 15.2 % High 11.5-14.5 [facility] ([place]) Comment on above: Performed By: #### A UNRULY, VALPR, CBC, ADIFF, BMP, GFR, AMM #### [place] [address] Hematocrit (Bld) [Volume fraction] 34.6 % Low 37.0-47.0 [facility] ([place]) Comment on above: Performed By: #### A UNRULY, VALPR, CBC, ADIFF, BMP, GFR, AMM #### [place] [id number] Hgb 11.8 G/dL Low 12.0-16.0 [facility] ([place]) Comment on above: Performed By: #### A UNRULY, VALPR, CBC, ADIFF, BMP, GFR, AMM #### [place] [id number] MCH (RBC) [Entitic mass] 28.3 pg Normal 27.0-31.2 [facility] ([place]) Comment on above: Performed By: #### A UNRULY, VALPR, CBC, ADIFF, BMP, GFR, AMM #### [place] [address] MCHC 34.2 G/dL Normal 33.0-37.0 [facility] ([place]) Comment on above: Performed By: #### A UNRULY, VALPR, CBC, ADIFF, BMP, GFR, AMM #### [place] [address] MCV (RBC) [Entitic vol] 82.8 fL Normal 80.0-94.0 A [facility] ([place]) Comment on above: Performed By: #### A UNRULY, VALPR, CBC, ADIFF, BMP, GFR, AMM #### [place] [address] Platelet 255 10 3/mcL Normal 130-400 [facility] ([place]) Comment on above: Performed By: #### A UNRULY, VALPR, CBC, ADIFF, BMP, GFR, AMM #### [place] [address] Platelet mean volume (Bld) [Entitic vol] 7.5 fL Normal 7.4-10.4 [facility] ([place]) Comment on above: Performed By: #### A UNRULY, VALPR, CBC, ADIFF, BMP, GFR, AMM #### [place] [address] RBC 4.17 10 6/mcL Low 4.20-5.40 [facility] ([place]) Comment on above: Performed By: #### A UNRULY, VALPR, CBC, ADIFF, BMP, GFR, AMM #### [place] [address] WBC 11.4 10 3/mcL High 4.6-10.8 [facility] ([place]) Comment on above: Performed By: #### A UNRULY, VALPR, CBC, ADIFF, BMP, GFR, AMM #### [place] [address] FEon 08-02-2023 Iron [Mass/Vol] 63 ug/dL Normal 50-170 [facility] ([place]) Comment on above: Performed By: #### A UNRULY, VALPR, CBC, ADIFF, BMP, GFR, AMM #### [place] [id number] [place] [id number] Lety 08-02-2023 Ferritin [Mass/Vol] 57.0 ng/mL Normal 8.0-252.0 [facility] ([place]) Comment on above: Performed By: #### A UNRULY, VALPR, CBC, ADIFF, BMP, GFR, AMM #### [facility] [address] [place] [address] FESon 08-02-2023 Iron Sat 14 % Normal [facility] ([place]) Comment on above: Performed By: #### A UNRULY, VALPR, CBC, ADIFF, BMP, GFR, AMM #### [place] [id number] [place] [address] TIBC 453 mcg/dL High 250-450 [facility] ([place]) Comment on above: Performed By: #### A UNRULY, VALPR, CBC, ADIFF, BMP, GFR, AMM #### [address] [address] LABORATORYOrdered By: Brigitte Tovar on 08-02-2023 Appearance (U) Clear (08/02/23 11:23 AM) Normal Clear AO Auto Urine SS Bilirubin Ql (U) Negative (08/02/23 11:23 AM) Normal Negative AO Auto Urine SS Color (U) Yellow (08/02/23 11:23 AM) Normal AO Auto Urine SS Glucose Test strip (U) [Mass/Vol] Negative Normal Negative AO Auto Urine SS Hemoglobin Auto test strip (U) [Mass/Vol] Negative (08/02/23 11:23 AM) Normal Negative AO Auto Urine SS Ketones Ql (U) Negative Normal Negative AO Auto Ur ine SS UA Leuk Est Trace *ABN* (08/02/23 11:23 AM) Invalid Interpretation Code Negative AO Auto Urine SS UA Nitrite Negative (08/02/23 11:23 AM) Normal Negative AO Auto Urine SS UA pH 7.0 (08/02/23 11:23 AM) Normal 5.0 - 8.0 AO Auto Urine SS UA Protein Negative Normal Negative AO Auto Urine SS UA RBC None Seen /HPF Normal None Seen AO Auto Ur ine SS UA Spec Grav 1.020 (08/02/23 11:23 AM) Normal 1.015-1.025 AO Auto Urine SS UA Specimen Type Clean Catch (08/02/23 11:23 AM) Normal AO Auto Urine SS UA Squam Epithelial None Seen /HPF Normal None Seen A O Auto Urine SS UA Urobilinogen 0.2 E.U./dL Normal 0.2-1.0 AO Auto Urine SS WBC LM.HPF (Urine sed) [#/Area] 0-5 /HPF Invalid Interpretation Code None Seen AO Auto Urine SS LABORATORYOrdered By: Jasmyne Foster on 08-02-2023 Creatinine (U) [Mass/Vol] 69.1 mg/dL Normal 28.0 - 117.0 mg/dL AO ADM SS Protein (U) [Mass/Vol] 9 mg/dL Normal 0 - 11 mg/dL AO ADM SS U Ratio Prot/Creat 0.1 ratio Invalid Interpretation Code AO Chemistry S LABORATORYOrdered By: SYSTEM SYSTEM on 08-02-2023 25-hydroxyvitamin D3 [Mass/Vol] 92.5 ng/mL Invalid Interpretation Code AO ADM SS Comment on above: Interpretive Data: I nterpretive Values Based on Total 25(OH) Vitamin D: Deficient <20 ng/mL Insufficient 20 - <30 ng/mL Sufficient 30-100 ng/mL Albumin BCP dye [Mass/Vol] 3.4 G/dL Normal 3.4 - 4.8 G/dL AO ADM SS Basophil, Absolute 0.1 103/mcL Normal 0.0 - 0.2 10^3/mcL AO Workflow SS Basophils/100 WBC (Bld) 0.6 % Normal 0.0 - 2.5 % AO Workflow SS Calcium [Mass/Vol] 10.3 mg/dL High 8.4 - 10. 2 mg/dL AO ADM SS Chloride [Moles/Vol] 100 mmol/L Normal 98 - 10 7 mmol/L AO ADM SS CO2 [Moles/Vol] 25 mmol/L Normal 23 - 31 mmol/L AO ADM SS Complement C3 [Mass/Vol] 164.0 mg/dL Normal 90.0 - 170.0 mg/dL AH ADM SS Comment on above: Interpretive Data: * *Note - New Reference Range in effect 19 Complement C4 [Mass/Vol] 26.0 mg/dL Normal 16.0 - 38.0 mg/dL AH ADM SS Creatinine [Mass/Vol] 1.14 mg/dL High 0.55 - 1.02 mg/dL AO ADM SS Electrolyte Balance 12.0 mEq/L Normal 4.0 - 15 .0 mEq/L AO ADM SS Eosinophil, Absolute 0.2 103/mcL Normal 0.0 - 0 .4 10^3/mcL AO Workflow SS Eosinophils/100 WBC (Bld) 1.8 % Normal 0.0 - 7.0 % AO Workflow SS Erythrocyte distribution width (RBC) [Ratio] 15.2 % High 11.5 - 14.5 % AO Workflow SS Ferritin [Mass/Vol] 57.0 ng/mL Normal 8.0 - 25 2.0 ng/mL AO ADM SS GFR/1.73 sq M.predicted among blacks MDRD (S/P/Bld) [Vol rate/Area] 58 ml/min/1.73sqm Invalid Interpretation Code AO Chemistry S Comment on above: Interpretive Data: GFR Population mean for , Non- Americans Ages 20-29 = 116 mL/min/1.73 sq.m. Ages 30-39 = 107 mL/min/1.73 sq.m. Ages 40-49 = 99 mL/min/1.73 sq.m. Ages 50-59 = 93 mL/min/1.73 sq.m. Ages 60-69 = 85 mL/min/1.73 sq.m. Ages 70+ = 75 mL/min/1.73 sq.m. Chronic Kidney Disease: Less than 60 mL/min/1.73 square meters End Stage Renal Disease: Less than 15 mL/min/1.73 square meters GFR/1.73 sq M.predicted among non-blacks MDRD (S/P/Bld) [Vol rate/Area] 48 ml/min/1.73sqm Invalid Interpretation Code AO Chemistry S Comment on above: Interpretive Data: GFR Population mean for , Non- Americans Ages 20-29 = 116 mL/min/1.73 sq.m. Ages 30-39 = 107 mL/min/1.73 sq.m. Ages 40-49 = 99 mL/min/1.73 sq.m. Ages 50-59 = 93 mL/min/1.73 sq.m. Ages 60-69 = 85 mL/min/1.73 sq.m. Ages 70+ = 75 mL/min/1.73 sq.m. Chronic Kidney Disease: Less than 60 mL/min/1.73 square meters End Stage Renal Disease: Less than 15 mL/min/1.73 square meters Glucose [Mass/Vol] 90 mg/dL Normal 80 - 115 mg/dL AO ADM SS Hematocrit (Bld) [Volume fraction] 34.6 % Low 37.0 - 47.0 % AO Workflow SS Hemoglobin (Bld) [Mass/Vol] 11.8 G/dL Low 12.0 - 16.0 G/dL AO Workflow SS Iron Sat 14 % Invalid Interpretation Code AO ADM SS Lymphocyte, Absolute 3.8 103/mcL Normal 0.8 - 3 .9 10^3/mcL AO Workflow SS Lymphocytes/100 WBC (Bld) 33.5 % Normal 10.0 - 50.0 % AO Workflow SS MCH (RBC) [Entitic mass] 28.3 pg Normal 27.0 - 31.2 pg AO Workflow SS MCHC 34.2 G/dL Normal 33.0 - 37.0 G/dL AO Workflow SS MCV (RBC) [Entitic vol] 82.8 fL Normal 80.0 - 94.0 fL AO Workflow SS Monocyte, Absolute 1.6 103/mcL High 0.2 - 1.0 10^3/mcL AO Workflow SS Monocytes/100 WBC (Bld) 13.7 % High 1.7 - 13.0 % AO Workflow SS Neutrophil, Absolute 5.7 103/mcL Normal 2.9 - 6 .2 10^3/mcL AO Workflow SS Neutrophils/100 WBC (Bld) 50.4 % Normal 37.0 - 80.0 % AO Workflow SS Parathyrin.intact [Mass/Vol] 89.7 pg/mL High 18.5 - 88.0 pg/mL AH ADM SS Phosphate [Mass/Vol] 3.4 mg/dL Normal 2.3 - 4 .1 mg/dL AO ADM SS Platelet mean volume (Bld) [Entitic vol] 7.5 fL Normal 7.4 - 10.4 fL AO Workflow SS Platelets (Bld) [#/Vol] 255 103/mcL Normal 130 - 400 10^3/mcL AO Workflow SS Potassium [Moles/Vol] 5.0 mmol/L Normal 3.5 - 5.1 mmol/L AO ADM SS RBC (Bld) [#/Vol] 4.17 106/mcL Low 4.20 - 5.4 0 10^6/mcL AO Workflow SS Sodium [Moles/Vol] 137 mmol/L Normal 136 - 145 mmol/L AO ADM SS Urea nitrogen [Mass/Vol] 17 mg/dL Normal 7 - 18 mg/dL AO ADM SS Urea nitrogen/Creatinine [Mass ratio] 15 ratio Normal 7 - 27 ratio AO ADM SS Uric Acid Lvl 8.6 mg/dL High 2.6 - 6.2 mg/dL AO ADM SS WBC (Bld) [#/Vol] 11.4 103/mcL High 4.6 - 10.8 10^3/mcL AO Workflow SS LABORATORYOrdered By: Cheryl Almanzar on 08-02-2023 Protein [Mass/Vol] 8.4 G/dL High 5.7 - 8.2 G/dL AH ADM SS Comment on above: Interpretive Data: * *Note - New Reference Range in effect 19 Laboratory - Chemistry and C hemistry - challengeOrdered By: SYSTEM SYSTEM on 08-02-2023 Iron [Mass/Vol] 63 ug/dL Normal 50 - 170 mcg/dL AO ADM SS Iron binding capacity [Mass/Vol] 453 mcg/dL High 250 - 450 mcg/dL AO ADM SS PTHon 08-02-2023 PTH, Intact 89.7 pg/mL High 18.5-88.0 [facility] ([place]) Comment on above: Performed By: #### A UNRULY, VALPR, CBC, ADIFF, BMP, GFR, AMM #### [address] [address] RFPon 08-02-2023 Albumin Level 3.4 G/dL Normal 3.4-4.8 [facility] ([place]) Comment on above: Performed By: #### A UNRULY, VALPR, CBC, ADIFF, BMP, GFR, AMM #### [address] [address] BUN/Creatinine Ratio 15 ratio Normal 7-27 [facility] ([place]) Comment on above: Performed By: #### A UNRULY, VALPR, CBC, ADIFF, BMP, GFR, AMM #### [address] [address] Calcium [Mass/Vol] 10.3 mg/dL High 8.4-10.2 [facility] ([place]) Comment on above: Performed By: #### A UNRULY, VALPR, CBC, ADIFF, BMP, GFR, AMM #### [address] [address] Chloride [Moles/Vol] 100 mmol/L Normal 98-107 [facility] ([place]) Comment on above: Performed By: #### A UNRULY, VALPR, CBC, ADIFF, BMP, GFR, AMM #### [address] [address] CO2 [Moles/Vol] 25 mmol/L Normal 23-31 [facility] ([place]) Comment on above: Performed By: #### A UNRULY, VALPR, CBC, ADIFF, BMP, GFR, AMM #### [address] [address] Creatinine [Mass/Vol] 1.14 mg/dL High 0.55-1.02 [facility] ([place]) Comment on above: Performed By: #### A UNRULY, VALPR, CBC, ADIFF, BMP, GFR, AMM #### [address] [address] Electrolyte Balance 12.0 mEq/L Normal 4.0-15.0 [facility] ([place]) Comment on above: Performed By: #### A UNRULY, VALPR, CBC, ADIFF, BMP, GFR, AMM #### [address] [address] Glucose [Mass/Vol] 90 mg/dL Normal 80-115 [facility] ([place]) Comment on above: Performed By: #### A UNRULY, VALPR, CBC, ADIFF, BMP, GFR, AMM #### [address] [address] Phosphate [Mass/Vol] 3.4 mg/dL Normal 2.3-4.1 [facility] ([place]) Comment on above: Performed By: #### A UNRULY, VALPR, CBC, ADIFF, BMP, GFR, AMM #### [address] [address] Potassium [Moles/Vol] 5.0 mmol/L Normal 3.5-5.1 [facility] ([place]) Comment on above: Performed By: #### A URNULY, VALPR, CBC, ADIFF, BMP, GFR, AMM #### [address] [address] Sodium [Moles/Vol] 137 mmol/L Normal 136-145 [facility] ([place]) Comment on above: Performed By: #### A UNRULY, VALPR, CBC, ADIFF, BMP, GFR, AMM #### [place] [id number] Urea nitrogen [Mass/Vol] 17 mg/dL Normal 7-18 [facility] ([place]) Comment on above: Performed By: #### A UNRULY, VALPR, CBC, ADIFF, BMP, GFR, AMM #### [place] [address] RPCURon 08-02-2023 U Creatinine 69.1 mg/dL Normal 28.0-117.0 [facility] ([place]) Comment on above: Performed By: #### A UNRULY, VALPR, CBC, ADIFF, BMP, GFR, AMM #### [place] [address] U Protein 9 mg/dL Normal 0-11 [facility] ([place]) Comment on above: Performed By: #### A UNRULY, VALPR, CBC, ADIFF, BMP, GFR, AMM #### [place] [id number] U Ratio Prot/Creat 0.1 ratio Normal [facility] ([place]) Comment on above: Result Comment: resu lt calculated by rule [id number] (U Protein/U Creatinine) Performed By: #### A UNRULY, VALPR, CBC, ADIFF, BMP, GFR, AMM #### [place] [id number] SPEon 08-02-2023 Total Protein 8.4 G/dL High 5.7-8.2 [facility] ([place]) Comment on above: Result Comment: No te - New Reference Range in effect 19 Performed By: #### A UNRULY, VALPR, CBC, ADIFF, BMP, GFR, AMM #### [address] [address] UAon 08-02-2023 Color (U) Yellow Normal [facility] ([place]) Comment on above: Performed By: #### A UNRULY, VALPR, CBC, ADIFF, BMP, GFR, AMM #### [address] [address] Glucose (U) [Mass/Vol] Negative Normal Negative [facility] ([place]) Comment on above: Performed By: #### A UNRULY, VALPR, CBC, ADIFF, BMP, GFR, AMM #### [address] [address] Ketones Ql (U) Negative Normal Negative [facility] ([place]) Comment on above: Performed By: #### A UNRULY, VALPR, CBC, ADIFF, BMP, GFR, AMM #### [address] [address] UA Appear Clear Normal Clear [facility] ([place]) Comment on above: Performed By: #### A UNRULY, VALPR, CBC, ADIFF, BMP, GFR, AMM #### [address] [address] UA Blood Negative Normal Negative [facility] ([place]) Comment on above: Performed By: #### A UNRULY, VALPR, CBC, ADIFF, BMP, GFR, AMM #### [address] [address] UA Leuk Est Trace Abnormal Negative [facility] ([place]) Comment on above: Performed By: #### A UNRULY, VALPR, CBC, ADIFF, BMP, GFR, AMM #### [address] [address] UA Nitrite Negative Normal Negative [facility] ([place]) Comment on above: Performed By: #### A UNRULY, VALPR, CBC, ADIFF, BMP, GFR, AMM #### [address] [address] UA pH 7.0 Normal 5.0 - 8.0 [facility] ([place]) Comment on above: Performed By: #### A UNRULY, VALPR, CBC, ADIFF, BMP, GFR, AMM #### [address] [address] UA Protein Negative Normal Negative [facility] ([place]) Comment on above: Performed By: #### A UNRULY, VALPR, CBC, ADIFF, BMP, GFR, AMM #### [address] [address] UA Spec Grav 1.020 Normal 1.015-1.025 [facility] ([place]) Comment on above: Performed By: #### A UNRULY, VALPR, CBC, ADIFF, BMP, GFR, AMM #### [place] [address] UA Specimen Type Clean Catch Normal [facility] ([place]) Comment on above: Performed By: #### A UNRULY, VALPR, CBC, ADIFF, BMP, GFR, AMM #### [address] [address] UA Urobilinogen 0.2 E.U./dL Normal 0.2-1.0 [facility] ([place]) Comment on above: Performed By: #### A UNRULY, VALPR, CBC, ADIFF, BMP, GFR, AMM #### [place] [address] Urobilinogen (U) [Mass/Vol] Negative Normal Negative [facility] ([place]) Comment on above: Performed By: #### A UNRULY, VALPR, CBC, ADIFF, BMP, GFR, AMM #### [place] [address] URICon 08-02-2023 Uric Acid Lvl 8.6 mg/dL High 2.6-6.2 [facility] ([place]) Comment on above: Performed By: #### A UNRULY, VALPR, CBC, ADIFF, BMP, GFR, AMM #### [place] [id number] VIDHon 08-02-2023 Vit. D 25-Hydroxy 92.5 ng/mL Normal [facility] ([place]) Comment on above: Result Comment: Inte rpretive Values Based on Total 25(OH) Vitamin D: Deficient <20 ng/mL Insufficient 20 - <30 ng/mL Sufficient 30-100 ng/mL Performed By: #### A UNRULY, VALPR, CBC, ADIFF, BMP, GFR, AMM #### [address] [address] KEPPRAon 06-21-2023 Levetiracetam Lvl 102.0 Normal [facility] ([place]) Comment on above: Order Comment: WRONG ENCOUNTER DONT CANCEL Performed By: #### A UNRULY, VALPR, CBC, ADIFF, BMP, GFR, AMM #### [place] [address] RENINon 06-21-2023 Renin Activity 30.750 Normal [facility] ([place]) Comment on above: Order Comment: WRONG ENCOUNTER DONT CANCEL Performed By: #### A UNRULY, VALPR, CBC, ADIFF, BMP, GFR, AMM #### [address] [address] LABORATORYOrdered By: Jasmyne Cintron on 06-20-2023 Albumin DL <= 20 mg/L (U) [Mass/Vol] 680 mcg/dL Invalid Interpretation Code AO ADM SS Albumin/Creatinine DL <= 20 mg/L (U) [Mass ratio] 16 mcg/mg Normal 0 - 30 mcg/mg AO ADM SS Creatinine (U) [Mass/Vol] 41.7 mg/dL Normal 28.0 - 117.0 mg/dL AO ADM SS MALBRon 06-20-2023 U Creatinine 41.7 mg/dL Normal 28.0-117.0 [facility] ([place]) Comment on above: Performed By: #### A UNRULY, VALPR, CBC, ADIFF, BMP, GFR, AMM #### [address] [address] U Microalb 680 mcg/dL Normal [facility] ([place]) Comment on above: Performed By: #### A UNRULY, VALPR, CBC, ADIFF, BMP, GFR, AMM #### [address] [address] U Ratio Alb/Cre 16 mcg/mg Normal 0-30 [facility] ([place]) Comment on above: Performed By: #### A UNRULY, VALPR, CBC, ADIFF, BMP, GFR, AMM #### [address] [address] KEPPRAon 06-17-2023 Levetiracetam Lvl Not performed Normal [facility] ([place]) Comment on above: Result Comment: Test not performed. Test cancelled by Healthcare provider after order was submitted to [facility]. Contacted by Viji Carrero at your facility 06.17.2023 Performed At: [facility] [address] [id number] Yan Sanchez MD Ph:[phone] Performed By: #### A UNRULY, VALPR, CBC, ADIFF, BMP, GFR, AMM #### [address] [address] .Auto Diffon 06-15-2023 Basophil, Absolute 0.0 10 3/mcL Normal 0.0-0.2 [facility] ([place]) Comment on above: Performed By: #### A UNRULY, VALPR, CBC, ADIFF, BMP, GFR, AMM #### [address] [address] Basophils/100 WBC (Bld) 0.4 % Normal 0.0-2.5 A [facility] ([place]) Comment on above: Performed By: #### A UNRULY, VALPR, CBC, ADIFF, BMP, GFR, AMM #### [address] [address] Eosinophil, Absolute 0.2 10 3/mcL Normal 0.0-0.4 [facility] ([place]) Comment on above: Performed By: #### A UNRULY, VALPR, CBC, ADIFF, BMP, GFR, AMM #### [address] [address] Eosinophils/100 WBC (Bld) 1.6 % Normal 0.0-7.0 [facility] ([place]) Comment on above: Performed By: #### A UNRULY, VALPR, CBC, ADIFF, BMP, GFR, AMM #### [address] [address] Lymphocyte, Absolute 3.1 10 3/mcL Normal 0.8-3.9 [facility] ([place]) Comment on above: Performed By: #### A UNRULY, VALPR, CBC, ADIFF, BMP, GFR, AMM #### [address] [address] Lymphocytes/100 WBC (Bld) 27.5 % Normal 10.0-50.0 [facility] ([place]) Comment on above: Performed By: #### A UNRULY, VALPR, CBC, ADIFF, BMP, GFR, AMM #### [address] [address] Monocyte, Absolute 1.0 10 3/mcL Normal 0.2-1.0 [facility] ([place]) Comment on above: Performed By: #### A UNRULY, VALPR, CBC, ADIFF, BMP, GFR, AMM #### [address] [address] Monocytes/100 WBC (Bld) 8.8 % Normal 1.7-13.0 A [facility] ([place]) Comment on above: Performed By: #### A UNRULY, VALPR, CBC, ADIFF, BMP, GFR, AMM #### [address] [address] Neutrophils/100 WBC (Bld) 61.7 % Normal 37.0-80.0 [facility] ([place]) Comment on above: Performed By: #### A UNRULY, VALPR, CBC, ADIFF, BMP, GFR, AMM #### [address] [address] .GFRon 06-15-2023 GFR Non- 42 ml/min/1.73sqm Normal [facility] ([place]) Comment on above: Result Comment: GFR Population mean for , Non- Americans Ages 20-29 = 116 mL/min/1.73 sq.m. Ages 30-39 = 107 mL/min/1.73 sq.m. Ages 40-49 = 99 mL/min/1.73 sq.m. Ages 50-59 = 93 mL/min/1.73 sq.m. Ages 60-69 = 85 mL/min/1.73 sq.m. Ages 70+ = 75 mL/min/1.73 sq.m. Chronic Kidney Disease: Less than 60 mL/min/1.73 square meters End Stage Renal Disease: Less than 15 mL/min/1.73 square meters Performed By: #### A UNRULY, VALPR, CBC, ADIFF, BMP, GFR, AMM #### [address] [address] GFR 51 ml/min/1.73sqm Normal [facility] ([place]) Comment on above: Result Comment: GFR Population mean for , Non- Americans Ages 20-29 = 116 mL/min/1.73 sq.m. Ages 30-39 = 107 mL/min/1.73 sq.m. Ages 40-49 = 99 mL/min/1.73 sq.m. Ages 50-59 = 93 mL/min/1.73 sq.m. Ages 60-69 = 85 mL/min/1.73 sq.m. Ages 70+ = 75 mL/min/1.73 sq.m. Chronic Kidney Disease: Less than 60 mL/min/1.73 square meters End Stage Renal Disease: Less than 15 mL/min/1.73 square meters Performed By: #### A UNRULY, VALPR, CBC, ADIFF, BMP, GFR, AMM #### [address] [address] .NEUABSon 06-15-2023 Neutrophil, Absolute 6.9 10 3/mcL High 2.9-6.2 [facility] ([place]) Comment on above: Performed By: #### A UNRULY, VALPR, CBC, ADIFF, BMP, GFR, AMM #### [address] [address] A1Con 06-15-2023 HbA1c (Bld) [Mass fraction] 5.6 % Normal 4.3-6.4 [facility] ([place]) Comment on above: Performed By: #### A UNRULY, VALPR, CBC, ADIFF, BMP, GFR, AMM #### [place] [id number] CBCon 06-15-2023 Erythrocyte distribution width (RBC) [Ratio] 14.9 % High 11.5-14.5 [facility] ([place]) Comment on above: Performed By: #### A UNRULY, VALPR, CBC, ADIFF, BMP, GFR, AMM #### [place] [address] Hematocrit (Bld) [Volume fraction] 34.8 % Low 37.0-47.0 [facility] ([place]) Comment on above: Performed By: #### A UNRULY, VALPR, CBC, ADIFF, BMP, GFR, AMM #### [place] [address] Hgb 11.7 G/dL Low 12.0-16.0 [facility] ([place]) Comment on above: Performed By: #### A UNRULY, VALPR, CBC, ADIFF, BMP, GFR, AMM #### [place] [address] MCH (RBC) [Entitic mass] 28.3 pg Normal 27.0-31.2 [facility] ([place]) Comment on above: Performed By: #### A UNRULY, VALPR, CBC, ADIFF, BMP, GFR, AMM #### [place] [address] MCHC 33.6 G/dL Normal 33.0-37.0 [facility] ([place]) Comment on above: Performed By: #### A UNRULY, VALPR, CBC, ADIFF, BMP, GFR, AMM #### [place] [address] MCV (RBC) [Entitic vol] 84.3 fL Normal 80.0-94.0 A [facility] ([place]) Comment on above: Performed By: #### A UNRULY, VALPR, CBC, ADIFF, BMP, GFR, AMM #### [place] [address] Platelet 290 10 3/mcL Normal 130-400 [facility] ([place]) Comment on above: Performed By: #### A UNRULY, VALPR, CBC, ADIFF, BMP, GFR, AMM #### [place] [address] Platelet mean volume (Bld) [Entitic vol] 8.7 fL Normal 7.4-10.4 [facility] ([place]) Comment on above: Performed By: #### A UNRULY, VALPR, CBC, ADIFF, BMP, GFR, AMM #### [place] [address] RBC 4.13 10 6/mcL Low 4.20-5.40 [facility] ([place]) Comment on above: Performed By: #### A UNRULY, VALPR, CBC, ADIFF, BMP, GFR, AMM #### [place] [address] WBC 11.2 10 3/mcL High 4.6-10.8 [facility] ([place]) Comment on above: Performed By: #### A UNRULY, VALPR, CBC, ADIFF, BMP, GFR, AMM #### [place] [address] CMPon 06-15-2023 Albumin Level 3.1 G/dL Low 3.4-4.8 [facility] ([place]) Comment on above: Performed By: #### A UNRULY, VALPR, CBC, ADIFF, BMP, GFR, AMM #### [place] [address] Albumin/Globulin [Mass ratio] 0.7 {ratio} Low 1.1-2.5 [facility] ([place]) Comment on above: Performed By: #### A UNRULY, VALPR, CBC, ADIFF, BMP, GFR, AMM #### [place] [address] ALP [Catalytic activity/Vol] 70 U/L Normal 40-135 [facility] ([place]) Comment on above: Performed By: #### A UNRULY, VALPR, CBC, ADIFF, BMP, GFR, AMM #### [facility] [address] [place], [place] [address] ALT [Catalytic activity/Vol] 30 U/L Normal 14-59 [facility] ([place]) Comment on above: Performed By: #### A UNRULY, VALPR, CBC, ADIFF, BMP, GFR, AMM #### [address] [address] AST [Catalytic activity/Vol] 31 U/L Normal 10-40 [facility] ([place]) Comment on above: Performed By: #### A UNRULY, VALPR, CBC, ADIFF, BMP, GFR, AMM #### [address] [address] Bili Total 0.2 mg/dL Normal 0.2-1.0 [facility] ([place]) Comment on above: Result Comment: Use of this assay is not recommended for patients undergoing treatment with eltrombopag due to the potential for falsely elevated results. Performed By: #### A UNRULY, VALPR, CBC, ADIFF, BMP, GFR, AMM #### [address] [address] BUN/Creatinine Ratio 17 ratio Normal 7-27 [facility] ([place]) Comment on above: Performed By: #### A UNRULY, VALPR, CBC, ADIFF, BMP, GFR, AMM #### [address] [address] Calcium [Mass/Vol] 10.1 mg/dL Normal 8.4-10.2 [facility] ([place] Comment on above: Performed By: #### A UNRULY, VALPR, CBC, ADIFF, BMP, GFR, AMM #### [address] [address] Chloride [Moles/Vol] 99 mmol/L Normal 98-107 [facility] ([place]) Comment on above: Performed By: #### A UNRULY, VALPR, CBC, ADIFF, BMP, GFR, AMM #### [address] [address] CO2 [Moles/Vol] 24 mmol/L Normal 23-31 [facility] ([place]) Comment on above: Performed By: #### A UNRULY, VALPR, CBC, ADIFF, BMP, GFR, AMM #### [address] [address] Creatinine [Mass/Vol] 1.28 mg/dL High 0.55-1.02 [facility] ([place]) Comment on above: Performed By: #### A UNRULY, VALPR, CBC, ADIFF, BMP, GFR, AMM #### [address] [address] Electrolyte Balance 14.0 mEq/L Normal 4.0-15.0 [facility] ([place]) Comment on above: Performed By: #### A UNRULY, VALPR, CBC, ADIFF, BMP, GFR, AMM #### [address] [address] Globulin 4.7 G/dL Normal [facility] ([place]) Comment on above: Performed By: #### A UNRULY, VALPR, CBC, ADIFF, BMP, GFR, AMM #### [place] [id number] Glucose [Mass/Vol] 167 mg/dL High 80-115 [facility] ([place]) Comment on above: Performed By: #### A UNRULY, VALPR, CBC, ADIFF, BMP, GFR, AMM #### [place] [id number] Potassium [Moles/Vol] 3.6 mmol/L Normal 3.5-5.1 [facility] ([place]) Comment on above: Performed By: #### A UNRULY, VALPR, CBC, ADIFF, BMP, GFR, AMM #### [address] [address] Sodium [Moles/Vol] 137 mmol/L Normal 136-145 [facility] ([place]) Comment on above: Performed By: #### A UNRULY, VALPR, CBC, ADIFF, BMP, GFR, AMM #### [address] [address] Total Protein 7.8 G/dL Normal 6.4-8.2 [facility] ([place]) Comment on above: Performed By: #### A UNRULY, VALPR, CBC, ADIFF, BMP, GFR, AMM #### [address] [address] Urea nitrogen [Mass/Vol] 22 mg/dL High 7-18 [facility] ([place]) Comment on above: Performed By: #### A UNRULY, VALPR, CBC, ADIFF, BMP, GFR, AMM #### [address] [address] LIPIDon 06-15-2023 Cholesterol [Mass/Vol] 122 mg/dL Normal 0-200 [facility] ([place]) Comment on above: Result Comment: Chol esterol Reference Interval: Less than 200 Desirable 200-239 Borderline high risk 240 and above High risk Performed By: #### A UNRULY, VALPR, CBC, ADIFF, BMP, GFR, AMM #### [place] [address] Cholesterol in HDL [Mass/Vol] 37 mg/dL Low 40-60 [facility] ([place]) Comment on above: Performed By: #### A UNRULY, VALPR, CBC, ADIFF, BMP, GFR, AMM #### [place] [id number] Cholesterol in LDL [Mass/Vol] 31 mg/dL Normal 0-130 [facility] ([place]) Comment on above: Performed By: #### A UNRULY, VALPR, CBC, ADIFF, BMP, GFR, AMM #### [address] [address] Triglyceride [Mass/Vol] 270 mg/dL High 0-150 A [facility] ([place]) Comment on above: Performed By: #### A UNRULY, VALPR, CBC, ADIFF, BMP, GFR, AMM #### [address] [address] PTHon 06-15-2023 PTH, Intact 52.9 pg/mL Normal 18.5-88.0 [facility] ([place]) Comment on above: Performed By: #### A UNRULY, VALPR, CBC, ADIFF, BMP, GFR, AMM #### [place] [id number] VALPRon 06-15-2023 LDose Valproic Acid: Unknown Normal [facility] ([place]) Comment on above: Performed By: #### A UNRULY, VALPR, CBC, ADIFF, BMP, GFR, AMM #### [place] [address] Valproic Acid Lvl 130 mcg/mL High 50-100 [facility] ([place]) Comment on above: Performed By: #### A UNRULY, VALPR, CBC, ADIFF, BMP, GFR, AMM #### [place] [address] VIDHon 06-15-2023 Vit. D 25-Hydroxy 87.8 ng/mL Normal [facility] ([place]) Comment on above: Result Comment: Inte rpretive Values Based on Total 25(OH) Vitamin D: Deficient <20 ng/mL Insufficient 20 - <30 ng/mL Sufficient 30-100 ng/mL Performed By: #### A UNRULY, VALPR, CBC, ADIFF, BMP, GFR, AMM #### [place] [address] .Auto Diffon 06-14-2023 Basophil, Absolute 0.0 10 3/mcL Normal 0.0-0.2 [facility] ([place]) Comment on above: Performed By: #### A UNRULY, VALPR, CBC, ADIFF, BMP, GFR, AMM #### [place] [id number] Basophils/100 WBC (Bld) 0.4 % Normal 0.0-2.5 A [facility] ([place]) Comment on above: Performed By: #### A UNRULY, VALPR, CBC, ADIFF, BMP, GFR, AMM #### [address] [address] Eosinophil, Absolute 0.2 10 3/mcL Normal 0.0-0.4 [facility] ([place]) Comment on above: Performed By: #### A UNRULY, VALPR, CBC, ADIFF, BMP, GFR, AMM #### [address] [address] Eosinophils/100 WBC (Bld) 1.6 % Normal 0.0-7.0 [facility] ([place]) Comment on above: Performed By: #### A UNRLUY, VALPR, CBC, ADIFF, BMP, GFR, AMM #### [address] [address] Lymphocyte, Absolute 3.1 10 3/mcL Normal 0.8-3.9 [facility] ([place]) Comment on above: Performed By: #### A UNRULY, VALPR, CBC, ADIFF, BMP, GFR, AMM #### [address] [address] Lymphocytes/100 WBC (Bld) 27.5 % Normal 10.0-50.0 [facility] ([place]) Comment on above: Performed By: #### A UNRULY, VALPR, CBC, ADIFF, BMP, GFR, AMM #### [address] [address] Monocyte, Absolute 1.0 10 3/mcL Normal 0.2-1.0 [facility] ([place]) Comment on above: Performed By: #### A UNRULY, VALPR, CBC, ADIFF, BMP, GFR, AMM #### [address] [address] Monocytes/100 WBC (Bld) 8.8 % Normal 1.7-13.0 A [facility] ([place] Comment on above: Performed By: #### A UNRULY, VALPR, CBC, ADIFF, BMP, GFR, AMM #### [address] [address] Neutrophils/100 WBC (Bld) 61.7 % Normal 37.0-80.0 [facility] ([place]) Comment on above: Performed By: #### A UNRULY, VALPR, CBC, ADIFF, BMP, GFR, AMM #### [address] [address] .GFRon 06-14-2023 GFR 51 ml/min/1.73sqm Normal [facility] ([place]) Comment on above: Result Comment: GFR Population mean for , Non- Americans Ages 20-29 = 116 mL/min/1.73 sq.m. Ages 30-39 = 107 mL/min/1.73 sq.m. Ages 40-49 = 99 mL/min/1.73 sq.m. Ages 50-59 = 93 mL/min/1.73 sq.m. Ages 60-69 = 85 mL/min/1.73 sq.m. Ages 70+ = 75 mL/min/1.73 sq.m. Chronic Kidney Disease: Less than 60 mL/min/1.73 square meters End Stage Renal Disease: Less than 15 mL/min/1.73 square meters Performed By: #### A UNRULY, VALPR, CBC, ADIFF, BMP, GFR, AMM #### [address] [address] GFR Non- 42 ml/min/1.73sqm Normal [facility] ([place]) Comment on above: Result Comment: GFR Population mean for , Non- Americans Ages 20-29 = 116 mL/min/1.73 sq.m. Ages 30-39 = 107 mL/min/1.73 sq.m. Ages 40-49 = 99 mL/min/1.73 sq.m. Ages 50-59 = 93 mL/min/1.73 sq.m. Ages 60-69 = 85 mL/min/1.73 sq.m. Ages 70+ = 75 mL/min/1.73 sq.m. Chronic Kidney Disease: Less than 60 mL/min/1.73 square meters End Stage Renal Disease: Less than 15 mL/min/1.73 square meters Performed By: #### A UNRULY, VALPR, CBC, ADIFF, BMP, GFR, AMM #### [address] [address] .NEUABSon 06-14-2023 Neutrophil, Absolute 6.9 10 3/mcL High 2.9-6.2 [facility] ([place]) Comment on above: Performed By: #### A UNRULY, VALPR, CBC, ADIFF, BMP, GFR, AMM #### [address] [address] A1Con 06-14-2023 HbA1c (Bld) [Mass fraction] 5.6 % Normal 4.3-6.4 [facility] ([place]) Comment on above: Performed By: #### A UNRULY, VALPR, CBC, ADIFF, BMP, GFR, AMM #### [place] [address] CBCon 06-14-2023 Erythrocyte distribution width (RBC) [Ratio] 14.9 % High 11.5-14.5 [facility] ([place]) Comment on above: Performed By: #### A UNRULY, VALPR, CBC, ADIFF, BMP, GFR, AMM #### [place] [address] Hematocrit (Bld) [Volume fraction] 34.8 % Low 37.0-47.0 [facility] ([place]) Comment on above: Performed By: #### A UNRULY, VALPR, CBC, ADIFF, BMP, GFR, AMM #### [place] [address] Hgb 11.7 G/dL Low 12.0-16.0 [facility] ([place]) Comment on above: Performed By: #### A UNRULY, VALPR, CBC, ADIFF, BMP, GFR, AMM #### [place] [address] MCH (RBC) [Entitic mass] 28.3 pg Normal 27.0-31.2 [facility] ([place]) Comment on above: Performed By: #### A UNRULY, VALPR, CBC, ADIFF, BMP, GFR, AMM #### [place] [address] MCHC 33.6 G/dL Normal 33.0-37.0 [facility] ([place]) Comment on above: Performed By: #### A UNRULY, VALPR, CBC, ADIFF, BMP, GFR, AMM #### [place] [address] MCV (RBC) [Entitic vol] 84.3 fL Normal 80.0-94.0 A [facility] ([place]) Comment on above: Performed By: #### A UNRULY, VALPR, CBC, ADIFF, BMP, GFR, AMM #### [place] [address] Platelet 290 10 3/mcL Normal 130-400 [facility] ([place]) Comment on above: Performed By: #### A UNRULY, VALPR, CBC, ADIFF, BMP, GFR, AMM #### [place] [address] Platelet mean volume (Bld) [Entitic vol] 8.7 fL Normal 7.4-10.4 [facility] ([place]) Comment on above: Performed By: #### A UNRULY, VALPR, CBC, ADIFF, BMP, GFR, AMM #### [place] [address] RBC 4.13 10 6/mcL Low 4.20-5.40 [facility] ([place]) Comment on above: Performed By: #### A UNRULY, VALPR, CBC, ADIFF, BMP, GFR, AMM #### [place] [address] WBC 11.2 10 3/mcL High 4.6-10.8 [facility] ([place]) Comment on above: Performed By: #### A UNRULY, VALPR, CBC, ADIFF, BMP, GFR, AMM #### [place] [address] CMPon 06-14-2023 Albumin Level 3.1 G/dL Low 3.4-4.8 [facility] ([place]) Comment on above: Performed By: #### A UNRULY, VALPR, CBC, ADIFF, BMP, GFR, AMM #### [place] [address] Albumin/Globulin [Mass ratio] 0.7 {ratio} Low 1.1-2.5 [facility] ([place]) Comment on above: Performed By: #### A UNRULY, VALPR, CBC, ADIFF, BMP, GFR, AMM #### [place] [address] ALP [Catalytic activity/Vol] 70 U/L Normal 40-135 [facility] ([place]) Comment on above: Performed By: #### A UNRULY, VALPR, CBC, ADIFF, BMP, GFR, AMM #### [facility] [address] [place], [place] [address] ALT [Catalytic activity/Vol] 30 U/L Normal 14-59 [facility] ([place]) Comment on above: Performed By: #### A UNRULY, VALPR, CBC, ADIFF, BMP, GFR, AMM #### [address] [address] AST [Catalytic activity/Vol] 31 U/L Normal 10-40 [facility] ([place]) Comment on above: Performed By: #### A UNRULY, VALPR, CBC, ADIFF, BMP, GFR, AMM #### [address] [address] Bili Total 0.2 mg/dL Normal 0.2-1.0 [facility] ([place]) Comment on above: Result Comment: Use of this assay is not recommended for patients undergoing treatment with eltrombopag due to the potential for falsely elevated results. Performed By: #### A UNRULY, VALPR, CBC, ADIFF, BMP, GFR, AMM #### [address] [address] BUN/Creatinine Ratio 17 ratio Normal 7-27 [facility] ([place]) Comment on above: Performed By: #### A UNRULY, VALPR, CBC, ADIFF, BMP, GFR, AMM #### [address] [address] Calcium [Mass/Vol] 10.1 mg/dL Normal 8.4-10.2 [facility] ([place]) Comment on above: Performed By: #### A UNRULY, VALPR, CBC, ADIFF, BMP, GFR, AMM #### [address] [address] Chloride [Moles/Vol] 99 mmol/L Normal 98-107 [facility] ([place]) Comment on above: Performed By: #### A UNRULY, VALPR, CBC, ADIFF, BMP, GFR, AMM #### [address] [address] CO2 [Moles/Vol] 24 mmol/L Normal 23-31 [facility] ([place]) Comment on above: Performed By: #### A UNRULY, VALPR, CBC, ADIFF, BMP, GFR, AMM #### [address] [address] Creatinine [Mass/Vol] 1.28 mg/dL High 0.55-1.02 [facility] ([place]) Comment on above: Performed By: #### A UNRULY, VALPR, CBC, ADIFF, BMP, GFR, AMM #### [address] [address] Electrolyte Balance 14.0 mEq/L Normal 4.0-15.0 [facility] ([place]) Comment on above: Performed By: #### A UNRULY, VALPR, CBC, ADIFF, BMP, GFR, AMM #### [address] [address] Globulin 4.7 G/dL Normal [facility] ([place]) Comment on above: Performed By: #### A UNRULY, VALPR, CBC, ADIFF, BMP, GFR, AMM #### [place] [id number] Glucose [Mass/Vol] 167 mg/dL High 80-115 [facility] ([place]) Comment on above: Performed By: #### A UNRULY, VALPR, CBC, ADIFF, BMP, GFR, AMM #### [place] [id number] Potassium [Moles/Vol] 3.6 mmol/L Normal 3.5-5.1 [facility] ([place]) Comment on above: Performed By: #### A UNRULY, VALPR, CBC, ADIFF, BMP, GFR, AMM #### [address] [address] Sodium [Moles/Vol] 137 mmol/L Normal 136-145 [facility] ([place]) Comment on above: Performed By: #### A UNRULY, VALPR, CBC, ADIFF, BMP, GFR, AMM #### [address] [address] Total Protein 7.8 G/dL Normal 6.4-8.2 [facility] ([place]) Comment on above: Performed By: #### A UNRULY, VALPR, CBC, ADIFF, BMP, GFR, AMM #### [place] [id number] [place] [address] Urea nitrogen [Mass/Vol] 22 mg/dL High 7-18 [facility] ([place]) Comment on above: Performed By: #### A UNRULY, VALPR, CBC, ADIFF, BMP, GFR, AMM #### [address] [address] LABORATORYOrdered By: Sayda Odonnell on 06-14-2023 25-hydroxyvitamin D3 [Mass/Vol] 87.8 ng/mL Invalid Interpretation Code AO Chemistry S Comment on above: Interpretive Data: I nterpretive Values Based on Total 25(OH) Vitamin D: Deficient <20 ng/mL Insufficient 20 - <30 ng/mL Sufficient 30-100 ng/mL Albumin BCP dye [Mass/Vol] 3.1 G/dL Low 3.4 - 4.8 G/dL AO Chemistry S Albumin/Globulin [Mass ratio] 0.7 {ratio} Low 1.1 - 2.5 ratio AO Chemistry S ALP [Catalytic activity/Vol] 70 U/L Normal 40 - 135 U/L AO Chemistry S ALT With P-5'-P [Catalytic activity/Vol] 30 U/L Normal 14 - 59 U/L AO Chemistry S AST With P-5'-P [Catalytic activity/Vol] 31 U/L Normal 10 - 40 U/L AO Chemistry S Basophil, Absolute 0.0 103/mcL Normal 0.0 - 0.2 10^3/mcL AO Hematology S Basophils/100 WBC (Bld) 0.4 % Normal 0.0 - 2.5 % AO Hematology S Bilirubin [Mass/Vol] 0.2 mg/dL Normal 0.2 - 1 .0 mg/dL AO Chemistry S Comment on above: Interpretive Data: U se of this assay is not recommended for patients undergoing treatment with eltrombopag due to the potential for falsely elevated results. Calcium [Mass/Vol] 10.1 mg/dL Normal 8.4 - 10. 2 mg/dL AO Chemistry S Chloride [Moles/Vol] 99 mmol/L Normal 98 - 10 7 mmol/L AO Chemistry S Cholesterol [Mass/Vol] 122 mg/dL Normal 0 - 2 00 mg/dL AO Chemistry S Comment on above: Interpretive Data: C holesterol Reference Interval: Less than 200 Desirable 200-239 Borderline high risk 240 and above High risk Cholesterol in HDL [Mass/Vol] 37 mg/dL Low 40 - 60 mg/dL AO Chemistry S Cholesterol in LDL [Mass/Vol] 31 mg/dL Normal 0 - 130 mg/dL AO Chemistry S CO2 [Moles/Vol] 24 mmol/L Normal 23 - 31 mmol/L AO Chemistry S Creatinine [Mass/Vol] 1.28 mg/dL High 0.55 - 1.02 mg/dL AO Chemistry S Electrolyte Balance 14.0 mEq/L Normal 4.0 - 15 .0 mEq/L AO Chemistry S Eosinophil, Absolute 0.2 103/mcL Normal 0.0 - 0 .4 10^3/mcL AO Hematology S Eosinophils/100 WBC (Bld) 1.6 % Normal 0.0 - 7.0 % AO Hematology S Erythrocyte distribution width (RBC) [Ratio] 14.9 % High 11.5 - 14.5 % AO Hematology S Globulin 4.7 G/dL Invalid Interpretation Code AO Chemistry S Glucose [Mass/Vol] 167 mg/dL High 80 - 115 mg/dL AO Chemistry S HbA1c (Bld) [Mass fraction] 5.6 % Normal 4.3 - 6.4 % AO Chemistry S Hematocrit (Bld) [Volume fraction] 34.8 % Low 37.0 - 47.0 % AO Hematology S Hemoglobin (Bld) [Mass/Vol] 11.7 G/dL Low 12.0 - 16.0 G/dL AO Hematology S LDose Valproic Acid: Unknown (06/14/23 3:11 PM) Normal AO Chemistry S Lymphocyte, Absolute 3.1 103/mcL Normal 0.8 - 3 .9 10^3/mcL AO Hematology S Lymphocytes/100 WBC (Bld) 27.5 % Normal 10.0 - 50.0 % AO Hematology S MCH (RBC) [Entitic mass] 28.3 pg Normal 27.0 - 31.2 pg AO Hematology S MCHC 33.6 G/dL Normal 33.0 - 37.0 G/dL AO Hematology S MCV (RBC) [Entitic vol] 84.3 fL Normal 80.0 - 94.0 fL AO Hematology S Monocyte, Absolute 1.0 103/mcL Normal 0.2 - 1.0 10^3/mcL AO Hematology S Monocytes/100 WBC (Bld) 8.8 % Normal 1.7 - 13.0 % AO Hematology S Neutrophil, Absolute 6.9 103/mcL High 2.9 - 6 .2 10^3/mcL AO Hematology S Neutrophils/100 WBC (Bld) 61.7 % Normal 37.0 - 80.0 % AO Hematology S Platelet mean volume (Bld) [Entitic vol] 8.7 fL Normal 7.4 - 10.4 fL AO Hematology S Platelets (Bld) [#/Vol] 290 103/mcL Normal 130 - 400 10^3/mcL AO Hematology S Potassium [Moles/Vol] 3.6 mmol/L Normal 3.5 - 5.1 mmol/L AO Chemistry S Protein [Mass/Vol] 7.8 G/dL Normal 6.4 - 8.2 G/dL AO Chemistry S RBC (Bld) [#/Vol] 4.13 106/mcL Low 4.20 - 5.4 0 10^6/mcL AO Hematology S Sodium [Moles/Vol] 137 mmol/L Normal 136 - 145 mmol/L AO Chemistry S Triglyceride [Mass/Vol] 270 mg/dL High 0 - 150 mg/dL AO Chemistry S Urea nitrogen [Mass/Vol] 22 mg/dL High 7 - 18 mg/dL AO Chemistry S Urea nitrogen/Creatinine [Mass ratio] 17 ratio Normal 7 - 27 ratio AO Chemistry S Valproate [Mass/Vol] 130 ug/mL High 50 - 10 0 mcg/mL AO Chemistry S WBC (Bld) [#/Vol] 11.2 103/mcL High 4.6 - 10.8 10^3/mcL AO Hematology S LABORATORYOrdered By: SYSTEM SYSTEM on 06-14-2023 GFR/1.73 sq M.predicted among blacks MDRD (S/P/Bld) [Vol rate/Area] 51 ml/min/1.73sqm Invalid Interpretation Code AO Chemistry S Comment on above: Interpretive Data: GFR Population mean for , Non- Americans Ages 20-29 = 116 mL/min/1.73 sq.m. Ages 30-39 = 107 mL/min/1.73 sq.m. Ages 40-49 = 99 mL/min/1.73 sq.m. Ages 50-59 = 93 mL/min/1.73 sq.m. Ages 60-69 = 85 mL/min/1.73 sq.m. Ages 70+ = 75 mL/min/1.73 sq.m. Chronic Kidney Disease: Less than 60 mL/min/1.73 square meters End Stage Renal Disease: Less than 15 mL/min/1.73 square meters GFR/1.73 sq M.predicted among non-blacks MDRD (S/P/Bld) [Vol rate/Area] 42 ml/min/1.73sqm Invalid Interpretation Code AO Chemistry S Comment on above: Interpretive Data: GFR Population mean for , Non- Americans Ages 20-29 = 116 mL/min/1.73 sq.m. Ages 30-39 = 107 mL/min/1.73 sq.m. Ages 40-49 = 99 mL/min/1.73 sq.m. Ages 50-59 = 93 mL/min/1.73 sq.m. Ages 60-69 = 85 mL/min/1.73 sq.m. Ages 70+ = 75 mL/min/1.73 sq.m. Chronic Kidney Disease: Less than 60 mL/min/1.73 square meters End Stage Renal Disease: Less than 15 mL/min/1.73 square meters LIPIDon 06-14-2023 Cholesterol [Mass/Vol] 122 mg/dL Normal 0-200 [facility] ([place]) Comment on above: Result Comment: Chol esterol Reference Interval: Less than 200 Desirable 200-239 Borderline high risk 240 and above High risk Performed By: #### A UNRULY, VALPR, CBC, ADIFF, BMP, GFR, AMM #### [address] [address] Cholesterol in HDL [Mass/Vol] 37 mg/dL Low 40-60 [facility] ([place]) Comment on above: Performed By: #### A UNRULY, VALPR, CBC, ADIFF, BMP, GFR, AMM #### [address] [address] Cholesterol in LDL [Mass/Vol] 31 mg/dL Normal 0-130 [facility] ([place]) Comment on above: Performed By: #### A UNRULY, VALPR, CBC, ADIFF, BMP, GFR, AMM #### [address] [address] Triglyceride [Mass/Vol] 270 mg/dL High 0-150 [facility] ([place]) Comment on above: Performed By: #### A UNRULY, VALPR, CBC, ADIFF, BMP, GFR, AMM #### [place] [address] VALPRon 06-14-2023 LDose Valproic Acid: Unknown Normal [facility] ([place]) Comment on above: Performed By: #### A UNRULY, VALPR, CBC, ADIFF, BMP, GFR, AMM #### [place] [address] Valproic Acid Lvl 130 mcg/mL High 50-100 [facility] ([place]) Comment on above: Performed By: #### A UNRULY, VALPR, CBC, ADIFF, BMP, GFR, AMM #### [place] [address] VIDHon 06-14-2023 Vit. D 25-Hydroxy 87.8 ng/mL Normal [facility] ([place]) Comment on above: Result Comment: Inte rpretive Values Based on Total 25(OH) Vitamin D: Deficient <20 ng/mL Insufficient 20 - <30 ng/mL Sufficient 30-100 ng/mL Performed By: #### A UNRULY, VALPR, CBC, ADIFF, BMP, GFR, AMM #### [place] [address] LABORATORYOrdered By: Jasmyne Foster on 06-13-2023 25-hydroxyvitamin D3 [Mass/Vol] 87.8 ng/mL Invalid Interpretation Code AO Chemistry S Comment on above: Interpretive Data: I nterpretive Values Based on Total 25(OH) Vitamin D: Deficient <20 ng/mL Insufficient 20 - <30 ng/mL Sufficient 30-100 ng/mL Albumin BCP dye [Mass/Vol] 3.1 G/dL Low 3.4 - 4.8 G/dL AO Chemistry S Albumin/Globulin [Mass ratio] 0.7 {ratio} Low 1.1 - 2.5 ratio AO Chemistry S ALP [Catalytic activity/Vol] 70 U/L Normal 40 - 135 U/L AO Chemistry S ALT With P-5'-P [Catalytic activity/Vol] 30 U/L Normal 14 - 59 U/L AO Chemistry S AST With P-5'-P [Catalytic activity/Vol] 31 U/L Normal 10 - 40 U/L AO Chemistry S Basophil, Absolute 0.0 103/mcL Normal 0.0 - 0.2 10^3/mcL AO Hematology S Basophils/100 WBC (Bld) 0.4 % Normal 0.0 - 2.5 % AO Hematology S Bilirubin [Mass/Vol] 0.2 mg/dL Normal 0.2 - 1 .0 mg/dL AO Chemistry S Comment on above: Interpretive Data: U se of this assay is not recommended for patients undergoing treatment with eltrombopag due to the potential for falsely elevated results. Calcium [Mass/Vol] 10.1 mg/dL Normal 8.4 - 10. 2 mg/dL AO Chemistry S Chloride [Moles/Vol] 99 mmol/L Normal 98 - 10 7 mmol/L AO Chemistry S Cholesterol [Mass/Vol] 122 mg/dL Normal 0 - 2 00 mg/dL AO Chemistry S Comment on above: Interpretive Data: C holesterol Reference Interval: Less than 200 Desirable 200-239 Borderline high risk 240 and above High risk Cholesterol in HDL [Mass/Vol] 37 mg/dL Low 40 - 60 mg/dL AO Chemistry S Cholesterol in LDL [Mass/Vol] 31 mg/dL Normal 0 - 130 mg/dL AO Chemistry S CO2 [Moles/Vol] 24 mmol/L Normal 23 - 31 mmol/L AO Chemistry S Creatinine [Mass/Vol] 1.28 mg/dL High 0.55 - 1.02 mg/dL AO Chemistry S Electrolyte Balance 14.0 mEq/L Normal 4.0 - 15 .0 mEq/L AO Chemistry S Eosinophil, Absolute 0.2 103/mcL Normal 0.0 - 0 .4 10^3/mcL AO Hematology S Eosinophils/100 WBC (Bld) 1.6 % Normal 0.0 - 7.0 % AO Hematology S Erythrocyte distribution width (RBC) [Ratio] 14.9 % High 11.5 - 14.5 % AO Hematology S Globulin 4.7 G/dL Invalid Interpretation Code AO Chemistry S Glucose [Mass/Vol] 167 mg/dL High 80 - 115 mg/dL AO Chemistry S HbA1c (Bld) [Mass fraction] 5.6 % Normal 4.3 - 6.4 % AO Chemistry S Hematocrit (Bld) [Volume fraction] 34.8 % Low 37.0 - 47.0 % AO Hematology S Hemoglobin (Bld) [Mass/Vol] 11.7 G/dL Low 12.0 - 16.0 G/dL AO Hematology S LDose Valproic Acid: Unknown (06/13/23 9:35 AM) Normal AO Chemistry S Lymphocyte, Absolute 3.1 103/mcL Normal 0.8 - 3 .9 10^3/mcL AO Hematology S Lymphocytes/100 WBC (Bld) 27.5 % Normal 10.0 - 50.0 % AO Hematology S MCH (RBC) [Entitic mass] 28.3 pg Normal 27.0 - 31.2 pg AO Hematology S MCHC 33.6 G/dL Normal 33.0 - 37.0 G/dL AO Hematology S MCV (RBC) [Entitic vol] 84.3 fL Normal 80.0 - 94.0 fL AO Hematology S Monocyte, Absolute 1.0 103/mcL Normal 0.2 - 1.0 10^3/mcL AO Hematology S Monocytes/100 WBC (Bld) 8.8 % Normal 1.7 - 13.0 % AO Hematology S Neutrophil, Absolute 6.9 103/mcL High 2.9 - 6 .2 10^3/mcL AO Hematology S Neutrophils/100 WBC (Bld) 61.7 % Normal 37.0 - 80.0 % AO Hematology S Platelet mean volume (Bld) [Entitic vol] 8.7 fL Normal 7.4 - 10.4 fL AO Hematology S Platelets (Bld) [#/Vol] 290 103/mcL Normal 130 - 400 10^3/mcL AO Hematology S Potassium [Moles/Vol] 3.6 mmol/L Normal 3.5 - 5.1 mmol/L AO Chemistry S Protein [Mass/Vol] 7.8 G/dL Normal 6.4 - 8.2 G/dL AO Chemistry S RBC (Bld) [#/Vol] 4.13 106/mcL Low 4.20 - 5.4 0 10^6/mcL AO Hematology S Sodium [Moles/Vol] 137 mmol/L Normal 136 - 145 mmol/L AO Chemistry S Triglyceride [Mass/Vol] 270 mg/dL High 0 - 150 mg/dL AO Chemistry S Urea nitrogen [Mass/Vol] 22 mg/dL High 7 - 18 mg/dL AO Chemistry S Urea nitrogen/Creatinine [Mass ratio] 17 ratio Normal 7 - 27 ratio AO Chemistry S Valproate [Mass/Vol] 130 ug/mL High 50 - 10 0 mcg/mL AO Chemistry S WBC (Bld) [#/Vol] 11.2 103/mcL High 4.6 - 10.8 10^3/mcL AO Hematology S LABORATORYOrdered By: SYSTEM SYSTEM on 06-13-2023 GFR/1.73 sq M.predicted among blacks MDRD (S/P/Bld) [Vol rate/Area] 51 ml/min/1.73sqm Invalid Interpretation Code AO Chemistry S Comment on above: Interpretive Data: GFR Population mean for , Non- Americans Ages 20-29 = 116 mL/min/1.73 sq.m. Ages 30-39 = 107 mL/min/1.73 sq.m. Ages 40-49 = 99 mL/min/1.73 sq.m. Ages 50-59 = 93 mL/min/1.73 sq.m. Ages 60-69 = 85 mL/min/1.73 sq.m. Ages 70+ = 75 mL/min/1.73 sq.m. Chronic Kidney Disease: Less than 60 mL/min/1.73 square meters End Stage Renal Disease: Less than 15 mL/min/1.73 square meters GFR/1.73 sq M.predicted among non-blacks MDRD (S/P/Bld) [Vol rate/Area] 42 ml/min/1.73sqm Invalid Interpretation Code AO Chemistry S Comment on above: Interpretive Data: GFR Population mean for , Non- Americans Ages 20-29 = 116 mL/min/1.73 sq.m. Ages 30-39 = 107 mL/min/1.73 sq.m. Ages 40-49 = 99 mL/min/1.73 sq.m. Ages 50-59 = 93 mL/min/1.73 sq.m. Ages 60-69 = 85 mL/min/1.73 sq.m. Ages 70+ = 75 mL/min/1.73 sq.m. Chronic Kidney Disease: Less than 60 mL/min/1.73 square meters End Stage Renal Disease: Less than 15 mL/min/1.73 square meters Parathyrin.intact [Mass/Vol] 52.9 pg/mL Normal 18.5 - 88.0 pg/mL ADM SS LABORATORYOrdered By: LABCOR P CONTRIBUTOR_SYSTEM on 06-13-2023 Levetiracetam Lvl (LC) Not performed Invalid Interpretation Code AO Sendouts SS Comment on above: Result Comment: Test not performed. Test cancelled by Healthcare provider after order was submitted to [facility]. Contacted by Viji Carrero at your facility 06.17.2023 Performed At: [facility] [address] [id number] Yan Sanchez MD Ph:[phone] RENINDon 12-18-2022 Direct Renin 187.7 pg/mL High 3.6-81.6 [facility] ([place]) Comment on above: Result Comment: A ra jennifer of aldosterone in ng/dL to direct renin in pg/mL greater than or equal to 3.8 is a positive screening test result for primary aldosteronism, when aldosterone is greater than or equal to 15 ng/dL. The reference interval for direct renin is based on an upright position. The supine reference intervals are: Age <41 years: 3.2-33.2 pg/mL Age >=41 years: 2.5-45.1 pg/mL Performed By: [employer] [address] [place] [address] [employer]: Rigoberto Burgos III, M.D. CLIA#: [id number] Performed By: #### A UNRULY, VALPR, CBC, ADIFF, BMP, GFR, AMM #### [place] [address] Patient Upright or Supine Upright Normal [facility] ([place]) Comment on above: Result Comment: Perf ormed By: [employer] [address] [place] [address] [employer]: Rigoberto Burgos III, M.D. CLIA#: [id number] Performed By: #### A UNRULY, VALPR, CBC, ADIFF, BMP, GFR, AMM #### [address] [address] KEPPRAon 12-14-2022 Levetiracetam Lvl 99.1 UG/ML High 12.0-46.0 [facility] ([place]) Comment on above: Result Comment: This test is not suitable for patients receiving treatment with the drug brivaracetam (Briviact). The drug causes an interference that may lead to falsely elevated levetiracetam results. Reference ranges and high/low indicator flags are provided as general guidelines only. The treating physician must determine appropriate target levels/dosing based on the specific clinical situation. This test was developed and its performance characteristics determined by [facility] [place] ([facility]). It has not been cleared or approved by the FDA. [facility] is regulated under CLIA as qualified to perform high-complexity testing. This test is used for clinical purposes. It should not be regarded as investigational or for research. Performed By: [facility] [address] [place] [address] [employer]: Rigoberto Burgos III, M.D. CLIA#: [id number] Performed By: #### A UNRULY, VALPR, CBC, ADIFF, BMP, GFR, AMM #### [place] [address] PTHon 12-14-2022 PTH, Intact 62.8 pg/mL Normal 18.5-88.0 [facility] ([place]) Comment on above: Performed By: #### A UNRULY, VALPR, CBC, ADIFF, BMP, GFR, AMM #### [place] [address] .Auto Diffon 12-13-2022 Basophil, Absolute 0.1 10 3/mcL Normal 0.0-0.2 [facility] ([place]) Comment on above: Performed By: #### T SH, LIPID, GFR, ANEU, CMP, PTH, A1C, CBC, VIDH, ADIFF ####[address] [address]#### VALPR, LEVET, RENIND ####[place] [address] [place], [place] [address] Basophils/100 WBC (Bld) 0.7 % Normal 0.0-2.5 A [facility] ([place]) Comment on above: Performed By: #### T SH, LIPID, GFR, ANEU, CMP, PTH, A1C, CBC, VIDH, ADIFF ####[place] [address]#### VALPR, LEVET, RENIND ####[place] [address] [place], [place] [address] Eosinophil, Absolute 0.1 10 3/mcL Normal 0.0-0.4 [facility] ([place]) Comment on above: Performed By: #### T SH, LIPID, GFR, ANEU, CMP, PTH, A1C, CBC, VIDH, ADIFF ####[place] [address]#### VALPR, LEVET, RENIND ####[place] [address] [place], [place] [address] Eosinophils/100 WBC (Bld) 1.1 % Normal 0.0-7.0 [facility] ([place]) Comment on above: Performed By: #### T SH, LIPID, GFR, ANEU, CMP, PTH, A1C, CBC, VIDH, ADIFF ####[place] [address]#### VALPR, LEVET, RENIND ####[place] [address] [place], [place] [address] Lymphocyte, Absolute 3.5 10 3/mcL Normal 0.8-3.9 [facility] ([place]) Comment on above: Performed By: #### T SH, LIPID, GFR, ANEU, CMP, PTH, A1C, CBC, VIDH, ADIFF ####[place] [address]#### VALPR, LEVET, RENIND ####[place] [address] [place], [place] [address] Lymphocytes/100 WBC (Bld) 32.5 % Normal 10.0-50.0 [facility] ([place]) Comment on above: Performed By: #### T SH, LIPID, GFR, ANEU, CMP, PTH, A1C, CBC, VIDH, ADIFF ####[place] [address]#### VALPR, LEVET, RENIND ####[place] [address] [place], [place] [address] Monocyte, Absolute 1.3 10 3/mcL High 0.2-1.0 [facility] ([place]) Comment on above: Performed By: #### T SH, LIPID, GFR, ANEU, CMP, PTH, A1C, CBC, VIDH, ADIFF ####[place] [address]#### VALPR, LEVET, RENIND ####[place] [address] [place], [place] [address] Monocytes/100 WBC (Bld) 12.3 % Normal 1.7-13.0 A [facility] ([place]) Comment on above: Performed By: #### T SH, LIPID, GFR, ANEU, CMP, PTH, A1C, CBC, VIDH, ADIFF ####[place] [address]#### VALPR, LEVET, RENIND ####[place] [address] [place], [place] [address] Neutrophils/100 WBC (Bld) 53.4 % Normal 37.0-80.0 [facility] ([place]) Comment on above: Performed By: #### T SH, LIPID, GFR, ANEU, CMP, PTH, A1C, CBC, VIDH, ADIFF ####[place] [address]#### VALPR, LEVET, RENIND ####[place] [address] [place], [place] [address] .GFRon 12-13-2022 GFR Non- 47 ml/min/1.73sqm Normal [facility] ([place]) Comment on above: Result Comment: GFR Population mean for , Non- Americans Ages 20-29 = 116 mL/min/1.73 sq.m. Ages 30-39 = 107 mL/min/1.73 sq.m. Ages 40-49 = 99 mL/min/1.73 sq.m. Ages 50-59 = 93 mL/min/1.73 sq.m. Ages 60-69 = 85 mL/min/1.73 sq.m. Ages 70+ = 75 mL/min/1.73 sq.m. Chronic Kidney Disease: Less than 60 mL/min/1.73 square meters End Stage Renal Disease: Less than 15 mL/min/1.73 square meters Performed By: #### A UNRULY, VALPR, CBC, ADIFF, BMP, GFR, AMM #### [address] [address] GFR 57 ml/min/1.73sqm Normal [facility] ([place]) Comment on above: Result Comment: GFR Population mean for , Non- Americans Ages 20-29 = 116 mL/min/1.73 sq.m. Ages 30-39 = 107 mL/min/1.73 sq.m. Ages 40-49 = 99 mL/min/1.73 sq.m. Ages 50-59 = 93 mL/min/1.73 sq.m. Ages 60-69 = 85 mL/min/1.73 sq.m. Ages 70+ = 75 mL/min/1.73 sq.m. Chronic Kidney Disease: Less than 60 mL/min/1.73 square meters End Stage Renal Disease: Less than 15 mL/min/1.73 square meters Performed By: #### A UNRULY, VALPR, CBC, ADIFF, BMP, GFR, AMM #### [place] [address] .NEUABSon 12-13-2022 Neutrophil, Absolute 5.8 10 3/mcL Normal 2.9-6.2 [facility] ([place]) Comment on above: Performed By: #### T SH, LIPID, GFR, ANEU, CMP, PTH, A1C, CBC, VIDH, ADIFF ####[place] [address]#### VALPR, LEVET, RENIND ####[facility]xbhef[facility]l[address] [place], [place] [address] A1Con 12-13-2022 HbA1c (Bld) [Mass fraction] 5.9 % Normal 4.3-6.4 [facility] ([place]) Comment on above: Performed By: #### T SH, LIPID, GFR, ANEU, CMP, PTH, A1C, CBC, VIDH, ADIFF ####[place] [address]#### VALPR, LEVET, RENIND ####[place] [address] [place], [place] [address] CBCon 12-13-2022 Erythrocyte distribution width (RBC) [Ratio] 14.6 % High 11.5-14.5 [facility] ([place]) Comment on above: Performed By: #### T SH, LIPID, GFR, ANEU, CMP, PTH, A1C, CBC, VIDH, ADIFF ####[place] [address]#### VALPR, LEVET, RENIND ####[address] [address] [place], [place] [address] Hematocrit (Bld) [Volume fraction] 34.5 % Low 37.0-47.0 [facility] ([place]) Comment on above: Performed By: #### T SH, LIPID, GFR, ANEU, CMP, PTH, A1C, CBC, VIDH, ADIFF ####[place] [address]#### VALPR, LEVET, RENIND ####[place] [address] [place] [phone] Hgb 11.6 G/dL Low 12.0-16.0 [facility] ([place]) Comment on above: Performed By: #### T SH, LIPID, GFR, ANEU, CMP, PTH, A1C, CBC, VIDH, ADIFF ####[place] [address]#### VALPR, LEVET, RENIND ####[place] [address] [place], [place] [address] MCH (RBC) [Entitic mass] 27.9 pg Normal 27.0-31.2 [facility] ([place]) Comment on above: Performed By: #### T SH, LIPID, GFR, ANEU, CMP, PTH, A1C, CBC, VIDH, ADIFF ####[place] [address]#### VALPR, LEVET, RENIND ####[facility] HospitalW[facility] [place], [place] [address] MCHC 33.7 G/dL Normal 33.0-37.0 [facility] ([place]) Comment on above: Performed By: #### T SH, LIPID, GFR, ANEU, CMP, PTH, A1C, CBC, VIDH, ADIFF ####[place] [address]#### VALPR, LEVET, RENIND ####[place] [address] [place], [place] [address] MCV (RBC) [Entitic vol] 82.9 fL Normal 80.0-94.0 A [facility] ([place]) Comment on above: Performed By: #### T SH, LIPID, GFR, ANEU, CMP, PTH, A1C, CBC, VIDH, ADIFF ####[place] [address]#### VALPR, LEVET, RENIND ####[facility] SpringfieldIlezklvus[address] [place] [phone] Platelet 261 10 3/mcL Normal 130-400 [facility] ([place]) Comment on above: Performed By: #### T SH, LIPID, GFR, ANEU, CMP, PTH, A1C, CBC, VIDH, ADIFF ####[place] [address]#### VALPR, LEVET, RENIND ####[facility] SpringfieldTbmmustsr[address] [place], [place] [address] Platelet mean volume (Bld) [Entitic vol] 7.8 fL Normal 7.4-10.4 [facility] ([place]) Comment on above: Performed By: #### T SH, LIPID, GFR, ANEU, CMP, PTH, A1C, CBC, VIDH, ADIFF ####[place] [address]#### VALPR, LEVET, RENIND ####[address] BreauxR[address] [place] [id number] RBC 4.16 10 6/mcL Low 4.20-5.40 [facility] ([place]) Comment on above: Performed By: #### T SH, LIPID, GFR, ANEU, CMP, PTH, A1C, CBC, VIDH, ADIFF ####[address] [address]#### VALPR, LEVET, RENIND ####[address] [place], [place] [address] WBC 10.8 10 3/mcL Normal 4.6-10.8 [facility] ([place]) Comment on above: Performed By: #### T SH, LIPID, GFR, ANEU, CMP, PTH, A1C, CBC, VIDH, ADIFF ####[place] [address]#### VALPR, LEVET, RENIND ####[address] ElliottQ[address]ry[address] [place], [place] [address] CMPon 12-13-2022 Albumin Level 3.7 G/dL Normal 3.4-4.8 [facility] ([place]) Comment on above: Performed By: #### A UNRULY, VALPR, CBC, ADIFF, BMP, GFR, AMM #### [place] [address] Albumin/Globulin [Mass ratio] 0.8 {ratio} Low 1.1-2.5 [facility] ([place]) Comment on above: Performed By: #### A UNRULY, VALPR, CBC, ADIFF, BMP, GFR, AMM #### [address] [address] ALP [Catalytic activity/Vol] 68 U/L Normal 40-135 [facility] ([place]) Comment on above: Performed By: #### A UNRULY, VALPR, CBC, ADIFF, BMP, GFR, AMM #### [address] [address] ALT [Catalytic activity/Vol] 33 U/L Normal 14-59 Person [facility] ([place]) Comment on above: Performed By: #### A UNRULY, VALPR, CBC, ADIFF, BMP, GFR, AMM #### [address] [address] AST [Catalytic activity/Vol] 32 U/L Normal 10-40 [facility] ([place]) Comment on above: Performed By: #### A UNRULY, VALPR, CBC, ADIFF, BMP, GFR, AMM #### [address] [address] Bili Total 0.3 mg/dL Normal 0.2-1.0 [facility] ([place]) Comment on above: Result Comment: Use of this assay is not recommended for patients undergoing treatment with eltrombopag due to the potential for falsely elevated results. Performed By: #### A UNRULY, VALPR, CBC, ADIFF, BMP, GFR, AMM #### [address] [address] BUN/Creatinine Ratio 22 ratio Normal 7-27 [facility] ([place]) Comment on above: Performed By: #### A UNRULY, VALPR, CBC, ADIFF, BMP, GFR, AMM #### [address] [address] Calcium [Mass/Vol] 10.4 mg/dL High 8.4-10.2 [facility] ([place]) Comment on above: Performed By: #### A UNRULY, VALPR, CBC, ADIFF, BMP, GFR, AMM #### [address] [address] Chloride [Moles/Vol] 98 mmol/L Normal 98-107 [facility] ([place]) Comment on above: Performed By: #### A UNRULY, VALPR, CBC, ADIFF, BMP, GFR, AMM #### [address] [address] CO2 [Moles/Vol] 28 mmol/L Normal 23-31 [facility] ([place]) Comment on above: Performed By: #### A UNRULY, VALPR, CBC, ADIFF, BMP, GFR, AMM #### [address] [address] Creatinine [Mass/Vol] 1.15 mg/dL High 0.55-1.02 [facility] ([place]) Comment on above: Performed By: #### A UNRULY, VALPR, CBC, ADIFF, BMP, GFR, AMM #### [address] [address] Electrolyte Balance 10.0 mEq/L Normal 4.0-15.0 [facility] ([place]) Comment on above: Performed By: #### A UNRULY, VALPR, CBC, ADIFF, BMP, GFR, AMM #### [address] [address] Globulin 4.8 G/dL Normal [facility] ([place]) Comment on above: Performed By: #### A UNRULY, VALPR, CBC, ADIFF, BMP, GFR, AMM #### [address] [address] Glucose [Mass/Vol] 88 mg/dL Normal 80-115 [facility] ([place]) Comment on above: Performed By: #### A UNRULY, VALPR, CBC, ADIFF, BMP, GFR, AMM #### [address] [address] Potassium [Moles/Vol] 4.7 mmol/L Normal 3.5-5.1 [facility] ([place]) Comment on above: Performed By: #### A UNRULY, VALPR, CBC, ADIFF, BMP, GFR, AMM #### [address] [address] Sodium [Moles/Vol] 136 mmol/L Normal 136-145 [facility] ([place]) Comment on above: Performed By: #### A UNRULY, VALPR, CBC, ADIFF, BMP, GFR, AMM #### [address] [address] Total Protein 8.5 G/dL High 6.4-8.2 [facility] ([place]) Comment on above: Performed By: #### A UNRULY, VALPR, CBC, ADIFF, BMP, GFR, AMM #### [address] [address] Urea nitrogen [Mass/Vol] 25 mg/dL High 7-18 [facility] ([place]) Comment on above: Performed By: #### A UNRULY, VALPR, CBC, ADIFF, BMP, GFR, AMM #### [address] [address] LABORATORYOrdered By: SYSTEM SYSTEM on 12-13-2022 25-hydroxyvitamin D3 [Mass/Vol] 81.8 ng/mL Invalid Interpretation Code AO ADM SS Comment on above: Interpretive Data: I nterpretive Values Based on Total 25(OH) Vitamin D: Deficient <20 ng/mL Insufficient 20 - <30 ng/mL Sufficient 30-100 ng/mL Albumin BCP dye [Mass/Vol] 3.7 G/dL Invalid Interpretation Code 3.4 - 4.8 G/dL AO ADM SS Albumin/Globulin [Mass ratio] 0.8 {ratio} Invalid Interpretation Code 1.1 - 2.5 ratio AO ADM SS ALP [Catalytic activity/Vol] 68 U/L Invalid Interpretation Code 40 - 135 U/L AO ADM SS ALT With P-5'-P [Catalytic activity/Vol] 33 U/L Invalid Interpretation Code 14 - 59 U/L AO ADM SS AST With P-5'-P [Catalytic activity/Vol] 32 U/L Invalid Interpretation Code 10 - 40 U/L AO ADM SS Basophil, Absolute 0.1 103/mcL Invalid Interpretation Code 0.0 - 0.2 10^3/mcL AO Workflow SS Basophils/100 WBC (Bld) 0.7 % Invalid Interpretation Code 0.0 - 2.5 % AO Workflow SS Bilirubin [Mass/Vol] 0.3 mg/dL Invalid Interpretation Code 0.2 - 1.0 mg/dL AO ADM SS Comment on above: Interpretive Data: U se of this assay is not recommended for patients undergoing treatment with eltrombopag due to the potential for falsely elevated results. Calcium [Mass/Vol] 10.4 mg/dL Invalid Interpretation Code 8.4 - 10.2 mg/dL AO ADM SS Chloride [Moles/Vol] 98 mmol/L Invalid Interpretation Code 98 - 107 mmol/L AO ADM SS CO2 [Moles/Vol] 28 mmol/L Invalid Interpretation Code 23 - 31 mmol/L AO ADM SS Creatinine [Mass/Vol] 1.15 mg/dL Invalid Interpretation Code 0.55 - 1.02 mg/dL AO ADM SS Electrolyte Balance 10.0 mEq/L Invalid Interpretation Code 4.0 - 15.0 mEq/L AO ADM SS Eosinophil, Absolute 0.1 103/mcL Invalid Interpretation Code 0.0 - 0.4 10^3/mcL AO Workflow SS Eosinophils/100 WBC (Bld) 1.1 % Invalid Interpretation Code 0.0 - 7.0 % AO Workflow SS Erythrocyte distribution width (RBC) [Ratio] 14.6 % Invalid Interpretation Code 11.5 - 14.5 % AO Workflow SS GFR/1.73 sq M.predicted among blacks MDRD (S/P/Bld) [Vol rate/Area] 57 ml/min/1.73sqm Invalid Interpretation Code AO Chemistry S Comment on above: Interpretive Data: GFR Population mean for , Non- Americans Ages 20-29 = 116 mL/min/1.73 sq.m. Ages 30-39 = 107 mL/min/1.73 sq.m. Ages 40-49 = 99 mL/min/1.73 sq.m. Ages 50-59 = 93 mL/min/1.73 sq.m. Ages 60-69 = 85 mL/min/1.73 sq.m. Ages 70+ = 75 mL/min/1.73 sq.m. Chronic Kidney Disease: Less than 60 mL/min/1.73 square meters End Stage Renal Disease: Less than 15 mL/min/1.73 square meters GFR/1.73 sq M.predicted among non-blacks MDRD (S/P/Bld) [Vol rate/Area] 47 ml/min/1.73sqm Invalid Interpretation Code AO Chemistry S Comment on above: Interpretive Data: GFR Population mean for , Non- Americans Ages 20-29 = 116 mL/min/1.73 sq.m. Ages 30-39 = 107 mL/min/1.73 sq.m. Ages 40-49 = 99 mL/min/1.73 sq.m. Ages 50-59 = 93 mL/min/1.73 sq.m. Ages 60-69 = 85 mL/min/1.73 sq.m. Ages 70+ = 75 mL/min/1.73 sq.m. Chronic Kidney Disease: Less than 60 mL/min/1.73 square meters End Stage Renal Disease: Less than 15 mL/min/1.73 square meters Globulin 4.8 G/dL Invalid Interpretation Code AO ADM SS Glucose [Mass/Vol] 88 mg/dL Invalid Interpretation Code 80 - 115 mg/dL AO ADM SS HbA1c (Bld) [Mass fraction] 5.9 % Invalid Interpretation Code 4.3 - 6.4 % AO ADM SS Hematocrit (Bld) [Volume fraction] 34.5 % Invalid Interpretation Code 37.0 - 47.0 % AO Workflow SS Hemoglobin (Bld) [Mass/Vol] 11.6 G/dL Invalid Interpretation Code 12.0 - 16.0 G/dL AO Workflow SS Lymphocyte, Absolute 3.5 103/mcL Invalid Interpretation Code 0.8 - 3.9 10^3/mcL AO Workflow SS Lymphocytes/100 WBC (Bld) 32.5 % Invalid Interpretation Code 10.0 - 50.0 % AO Workflow SS MCH (RBC) [Entitic mass] 27.9 pg Invalid Interpretation Code 27.0 - 31.2 pg AO Workflow SS MCHC 33.7 G/dL Invalid Interpretation Code 33.0 - 37.0 G/dL AO Workflow SS MCV (RBC) [Entitic vol] 82.9 fL Invalid Interpretation Code 80.0 - 94.0 fL AO Workflow SS Monocyte, Absolute 1.3 103/mcL Invalid Interpretation Code 0.2 - 1.0 10^3/mcL AO Workflow SS Monocytes/100 WBC (Bld) 12.3 % Invalid Interpretation Code 1.7 - 13.0 % AO Workflow SS Neutrophil, Absolute 5.8 103/mcL Invalid Interpretation Code 2.9 - 6.2 10^3/mcL AO Workflow SS Neutrophils/100 WBC (Bld) 53.4 % Invalid Interpretation Code 37.0 - 80.0 % AO Workflow SS Parathyrin.intact [Mass/Vol] 62.8 pg/mL Invalid Interpretation Code 18.5 - 88.0 pg/mL AH ADM SS Platelet mean volume (Bld) [Entitic vol] 7.8 fL Invalid Interpretation Code 7.4 - 10.4 fL AO Workflow SS Platelets (Bld) [#/Vol] 261 103/mcL Invalid Interpretation Code 130 - 400 10^3/mcL AO Workflow SS Potassium [Moles/Vol] 4.7 mmol/L Invalid Interpretation Code 3.5 - 5.1 mmol/L AO ADM SS Protein [Mass/Vol] 8.5 G/dL Invalid Interpretation Code 6.4 - 8.2 G/dL AO ADM SS RBC (Bld) [#/Vol] 4.16 106/mcL Invalid Interpretation Code 4.20 - 5.40 10^6/mcL AO Workflow SS Sodium [Moles/Vol] 136 mmol/L Invalid Interpretation Code 136 - 145 mmol/L AO ADM SS TSH Qn 3.02 m[IU]/L Invalid Interpretation Code 0.36 - 3.74 mcIU/mL AO ADM SS Urea nitrogen [Mass/Vol] 25 mg/dL Invalid Interpretation Code 7 - 18 mg/dL AO ADM SS Urea nitrogen/Creatinine [Mass ratio] 22 ratio Invalid Interpretation Code 7 - 27 ratio AO ADM SS Valproate [Mass/Vol] 125 ug/mL Invalid Interpretation Code 50 - 100 mcg/mL AO ADM SS WBC (Bld) [#/Vol] 10.8 103/mcL Invalid Interpretation Code 4.6 - 10.8 10^3/mcL AO Workflow SS LABORATORYOrdered By: Cristiane Hunter on 12-13-2022 Cholesterol [Mass/Vol] 176 mg/dL Invalid Interpretation Code 0 - 200 mg/dL AO ADM SS Comment on above: Interpretive Data: C holesterol Reference Interval: Less than 200 Desirable 200-239 Borderline high risk 240 and above High risk Cholesterol in HDL [Mass/Vol] 45 mg/dL Invalid Interpretation Code 40 - 60 mg/dL AO ADM SS Cholesterol in LDL [Mass/Vol] 83 mg/dL Invalid Interpretation Code 0 - 130 mg/dL AO ADM SS LDose Valproic Acid: Unknown (12/13/22 9:57 AM) Invalid Interpretation Code AO Chemistry S Triglyceride [Mass/Vol] 239 mg/dL Invalid Interpretation Code 0 - 150 mg/dL AO ADM SS Comment on above: Interpretive Data: T riglyceride Reference Interval: Less than 150 Normal 150-199 Borderline high risk 200-499 High risk 500 or higher Very high risk LABORATORYOrdered By: AL QUEEN CONTRIBUTOR_SYSTEM on 12-13-2022 Levetiracetam Lvl 99.1 UG/ML Invalid Interpretation Code 12.0-46.0 AO Sendouts SS Comment on above: Result Comment: This test is not suitable for patients receiving treatment with the drug brivaracetam (Briviact). The drug causes an interference that may lead to falsely elevated levetiracetam results. Reference ranges and high/low indicator flags are provided as general guidelines only. The treating physician must determine appropriate target levels/dosing based on the specific clinical situation. This test was developed and its performance characteristics determined by [facility] [place] ([facility]). It has not been cleared or approved by the FDA. [facility] is regulated under CLIA as qualified to perform high-complexity testing. This test is used for clinical purposes. It should not be regarded as investigational or for research. Performed By: [facility] [address] [place] [address] [employer]: Rigoberto Burgos III, M.D. [place]#: [id number] LIPIDon 12-13-2022 Cholesterol [Mass/Vol] 176 mg/dL Normal 0-200 [facility] ([place]) Comment on above: Result Comment: Chol esterol Reference Interval: Less than 200 Desirable 200-239 Borderline high risk 240 and above High risk Performed By: #### A UNRULY, VALPR, CBC, ADIFF, BMP, GFR, AMM #### [address] [address] Cholesterol in HDL [Mass/Vol] 45 mg/dL Normal 40-60 [facility] ([place]) Comment on above: Performed By: #### A UNRULY, VALPR, CBC, ADIFF, BMP, GFR, AMM #### [address] [address] Cholesterol in LDL [Mass/Vol] 83 mg/dL Normal 0-130 [facility] ([place]) Comment on above: Performed By: #### A UNRULY, VALPR, CBC, ADIFF, BMP, GFR, AMM #### [address] [address] Triglyceride [Mass/Vol] 239 mg/dL High 0-150 [facility] ([place]) Comment on above: Result Comment: Trig lyceride Reference Interval: Less than 150 Normal 150-199 Borderline high risk 200-499 High risk 500 or higher Very high risk Performed By: #### A UNRULY, VALPR, CBC, ADIFF, BMP, GFR, AMM #### [address] [address] TSHon 12-13-2022 TSH Qn 3.02 m[IU]/L Normal 0.36-3.74 [facility] ([place]) Comment on above: Performed By: #### T SH, LIPID, GFR, ANEU, CMP, PTH, A1C, CBC, VIDH, ADIFF ####[place] [id number] [place] [id number]#### VALPR, LEVET, RENIND ####[place] [address] [place], [place] [address] VALPRon 12-13-2022 LDose Valproic Acid: Unknown Normal [facility] ([place]) Comment on above: Performed By: #### A UNRULY, VALPR, CBC, ADIFF, BMP, GFR, AMM #### [place] [address] Valproic Acid Lvl 125 mcg/mL High 50-100 [facility] ([place]) Comment on above: Performed By: #### A UNRULY, VALPR, CBC, ADIFF, BMP, GFR, AMM #### [place] [address] VIDHon 12-13-2022 Vit. D 25-Hydroxy 81.8 ng/mL Normal [facility] ([place]) Comment on above: Result Comment: Inte rpretive Values Based on Total 25(OH) Vitamin D: Deficient <20 ng/mL Insufficient 20 - <30 ng/mL Sufficient 30-100 ng/mL Performed By: #### A UNRULY, VALPR, CBC, ADIFF, BMP, GFR, AMM #### [place] [address] MRI KIDNEYon 10-01-2022 MRI KIDNEY ORIGINAL EXAMINATION: MRI OF THE ABDOMEN WITH AND WITHOUT CONTRAST, 09/28/2022 8:31 am TECHNIQUE: Multiplanar multisequence MRI of the abdomen was performed with and without the administration of intravenous contrast. COMPARISON: March 21, 2022 HISTORY: ORDERING SYSTEM PROVIDED HISTORY: Reason for Exam: complex cyst of right kidney with recommendation for 6 month follow up FINDINGS: The study is degraded by patient motion artifact and this makes interpretation difficult. Chemical shift imaging shows diffuse fatty infiltration of the liver. At the posterolateral right lower pole kidney, there is a 1.6 cm lesion present. This shows intrinsic increased T1 and low T2 signal, compatible with a hemorrhagic or proteinaceous cyst. This is very similar to the prior exam, allowing for motion artifact. Patient motion makes post IV contrast scan interpretation difficult. Again, there may be minimal septation within the lesion, difficult to assess on the post IV contrast scans. No other significant renal lesion is visible. No other contributory abnormality with the exception of a stable left adrenal lesion containing lipid, compatible with a myelolipoma. This is unchanged compared to CT February 24, 2022 IMPRESSION: Stable right lower pole renal lesion most compatible with hemorrhagic or proteinaceous cyst. 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 Additional six-month follow-up study recommended to reassess. Interpreted by: Anthony Guzman MD Preliminary Report By: Anthony Guzman MD Electronically signed By Anthony Guzman MD Dictated Date: 10/01/2022 4:37:40 PM Prelim Date: 10/01/2022 4:43:31 PM Sign Date: 10/01/2022 4:43:31 PM Ordering Provider: FISH JORDAN [facility] ([place]) LABORATORYOrdered By: Jasmyne Foster on 07-07-2022 LDose Valproic Acid: Unknown (07/07/22 8:04 AM) Invalid Interpretation Code AO Chemistry S LABORATORYOrdered By: SYSTEM SYSTEM on 07-07-2022 Valproate [Mass/Vol] 88 ug/mL Invalid Interpretation Code 50 - 100 mcg/mL AO ADM SS LABORATORYOrdered By: SYSTEM SYSTEM on 06-07-2022 Albumin BCP dye [Mass/Vol] 3.6 G/dL Invalid Interpretation Code 3.4 - 4.8 G/dL AO ADM SS Albumin/Globulin [Mass ratio] 0.8 {ratio} Invalid Interpretation Code 1.1 - 2.5 ratio AO ADM SS ALP [Catalytic activity/Vol] 75 U/L Invalid Interpretation Code 40 - 135 U/L AO ADM SS ALT With P-5'-P [Catalytic activity/Vol] 31 U/L Invalid Interpretation Code 14 - 59 U/L AO ADM SS AST With P-5'-P [Catalytic activity/Vol] 39 U/L Invalid Interpretation Code 10 - 40 U/L AO ADM SS Bilirubin [Mass/Vol] 0.3 mg/dL Invalid Interpretation Code 0.2 - 1.0 mg/dL AO ADM SS Calcium [Mass/Vol] 10.3 mg/dL Invalid Interpretation Code 8.4 - 10.2 mg/dL AO ADM SS Chloride [Moles/Vol] 103 mmol/L Invalid Interpretation Code 98 - 107 mmol/L AO ADM SS CO2 [Moles/Vol] 25 mmol/L Invalid Interpretation Code 23 - 31 mmol/L AO ADM SS Creatinine [Mass/Vol] 1.20 mg/dL Invalid Interpretation Code 0.55 - 1.02 mg/dL AO ADM SS Electrolyte Balance 11.0 mEq/L Invalid Interpretation Code 4.0 - 15.0 mEq/L AO ADM SS GFR 55 ml/min/1.73sqm Invalid Interpretation Code AO Chemistry S GFR Non- 45 ml/min/1.73sqm Invalid Interpretation Code AO Chemistry S Globulin 4.7 G/dL Invalid Interpretation Code AO ADM SS Glucose [Mass/Vol] 134 mg/dL Invalid Interpretation Code 80 - 115 mg/dL AO ADM SS Potassium [Moles/Vol] 3.5 mmol/L Invalid Interpretation Code 3.5 - 5.1 mmol/L AO ADM SS Protein [Mass/Vol] 8.3 G/dL Invalid Interpretation Code 6.4 - 8.2 G/dL AO ADM SS Sodium [Moles/Vol] 139 mmol/L Invalid Interpretation Code 136 - 145 mmol/L AO ADM SS Urea nitrogen [Mass/Vol] 29 mg/dL Invalid Interpretation Code 7 - 18 mg/dL AO ADM SS Urea nitrogen/Creatinine [Mass ratio] 24 ratio Invalid Interpretation Code 7 - 27 ratio AO ADM SS Vit. D 25-Hydroxy 93.5 ng/mL Invalid Interpretation Code AO ADM SS LABORATORYOrdered By: Nelda Granados on 06-07-2022 Basophil, Absolute 0.0 103/mcL Invalid Interpretation Code 0.0 - 0.2 10^3/mcL AO Workflow SS Basophils/100 WBC (Bld) 0.4 % Invalid Interpretation Code 0.0 - 2.5 % AO Workflow SS Eosinophil, Absolute 0.3 103/mcL Invalid Interpretation Code 0.0 - 0.4 10^3/mcL AO Workflow SS Eosinophils/100 WBC (Bld) 3.2 % Invalid Interpretation Code 0.0 - 7.0 % AO Workflow SS Erythrocyte distribution width (RBC) [Ratio] 15.2 % Invalid Interpretation Code 11.5 - 14.5 % AO Workflow SS Hematocrit (Bld) [Volume fraction] 34.9 % Invalid Interpretation Code 37.0 - 47.0 % AO Workflow SS Hemoglobin (Bld) [Mass/Vol] 11.7 G/dL Invalid Interpretation Code 12.0 - 16.0 G/dL AO Workflow SS Lymphocyte, Absolute 2.5 103/mcL Invalid Interpretation Code 0.8 - 3.9 10^3/mcL AO Workflow SS Lymphocytes/100 WBC (Bld) 30.4 % Invalid Interpretation Code 10.0 - 50.0 % AO Workflow SS MCH (RBC) [Entitic mass] 29.3 pg Invalid Interpretation Code 27.0 - 31.2 pg AO Workflow SS MCHC 33.6 G/dL Invalid Interpretation Code 33.0 - 37.0 G/dL AO Workflow SS MCV (RBC) [Entitic vol] 87.2 fL Invalid Interpretation Code 80.0 - 94.0 fL AO Workflow SS Monocyte, Absolute 1.0 103/mcL Invalid Interpretation Code 0.2 - 1.0 10^3/mcL AO Workflow SS Monocytes/100 WBC (Bld) 12.6 % Invalid Interpretation Code 1.7 - 13.0 % AO Workflow SS Neutrophil, Absolute 4.4 103/mcL Invalid Interpretation Code 2.9 - 6.2 10^3/mcL AO Workflow SS Neutrophils/100 WBC (Bld) 53.4 % Invalid Interpretation Code 37.0 - 80.0 % AO Workflow SS Platelet mean volume (Bld) [Entitic vol] 8.3 fL Invalid Interpretation Code 7.4 - 10.4 fL AO Workflow SS Platelets (Bld) [#/Vol] 222 103/mcL Invalid Interpretation Code 130 - 400 10^3/mcL AO Workflow SS RBC (Bld) [#/Vol] 4.00 106/mcL Invalid Interpretation Code 4.20 - 5.40 10^6/mcL AO Workflow SS WBC (Bld) [#/Vol] 8.3 103/mcL Invalid Interpretation Code 4.6 - 10.8 10^3/mcL AO Workflow SS LABORATORYOrdered By: Cristiane Hunter on 06-07-2022 Cholesterol [Mass/Vol] 149 mg/dL Invalid Interpretation Code 0 - 200 mg/dL AO ADM SS Cholesterol in HDL [Mass/Vol] 47 mg/dL Invalid Interpretation Code 40 - 60 mg/dL AO ADM SS Cholesterol in LDL [Mass/Vol] 57 mg/dL Invalid Interpretation Code 0 - 130 mg/dL AO ADM SS Triglyceride [Mass/Vol] 223 mg/dL Invalid Interpretation Code 0 - 150 mg/dL AO ADM SS LABORATORYOrdered By: AL QUEEN CONTRIBUTOR_SYSTEM on 06-07-2022 Levetiracetam Lvl 104.4 UG/ML Invalid Interpretation Code 12.0-46.0UG/ ML AO Sendouts SS Comment on above: Result Comment: This test is not suitable for patients receiving treatment with the drug brivaracetam (Briviact). The drug causes an interference that may lead to falsely elevated levetiracetam results. Result rechecked. Reference ranges and high/low indicator flags are provided as general guidelines only. The treating physician must determine appropriate target levels/dosing based on the specific clinical situation. This test was developed and its performance characteristics determined by [facility] [place] ([facility]). It has not been cleared or approved by the FDA. [facility] is regulated under CLIA as qualified to perform high-complexity testing. This test is used for clinical purposes. It should not be regarded as investigational or for research. Performed By: [facility] [address] [place] [address] [employer]: Rigoberto Burgos III, M.D. CLIA#: [id number] LABORATORYOrdered By: MavenHut on 05-08-2022 Cobalamin (Vitamin B12) [Mass/Vol] 790 pg/mL Invalid Interpretation Code 211 - 911 pg/mL AH ADM SS Folate [Mass/Vol] 15.85 ng/mL Invalid Interpretation Code 5.38 - 24.00 ng/mL AH ADM SS TSH Qn 1.89 m[IU]/L Invalid Interpretation Code 0.36 - 3.74 mcIU/mL AO ADM SS Valproate [Mass/Vol] 101 ug/mL Invalid Interpretation Code 50 - 100 mcg/mL AO ADM SS LABORATORYOrdered By: Erin Soto on 05-08-2022 LDose Valproic Acid: Unknown (05/08/22 2:37 PM) Invalid Interpretation Code AO Chemistry S LABORATORYOrdered By: Jasmyne Foster on 02-24-2022 Lactate [Moles/Vol] 1.1 mmol/L Invalid Interpretation Code 0.4 - 2.0 mmol/L AO ADM SS Basophil, Absolute 0.0 103/mcL Invalid Interpretation Code 0.0 - 0.2 10^3/mcL AO Workflow SS Basophils/100 WBC (Bld) 0.2 % Invalid Interpretation Code 0.0 - 2.5 % AO Workflow SS Eosinophil, Absolute 0.1 103/mcL Invalid Interpretation Code 0.0 - 0.4 10^3/mcL AO Workflow SS Eosinophils/100 WBC (Bld) 0.5 % Invalid Interpretation Code 0.0 - 7.0 % AO Workflow SS Erythrocyte distribution width (RBC) [Ratio] 14.8 % Invalid Interpretation Code 11.5 - 14.5 % AO Workflow SS Hematocrit (Bld) [Volume fraction] 31.6 % Invalid Interpretation Code 37.0 - 47.0 % AO Workflow SS Hemoglobin (Bld) [Mass/Vol] 10.7 G/dL Invalid Interpretation Code 12.0 - 16.0 G/dL AO Workflow SS Lymphocyte, Absolute 1.9 103/mcL Invalid Interpretation Code 0.8 - 3.9 10^3/mcL AO Workflow SS Lymphocytes/100 WBC (Bld) 16.6 % Invalid Interpretation Code 10.0 - 50.0 % AO Workflow SS MCH (RBC) [Entitic mass] 28.9 pg Invalid Interpretation Code 27.0 - 31.2 pg AO Workflow SS MCHC 33.9 G/dL Invalid Interpretation Code 33.0 - 37.0 G/dL AO Workflow SS MCV (RBC) [Entitic vol] 85.1 fL Invalid Interpretation Code 80.0 - 94.0 fL AO Workflow SS Monocyte distribution width Auto (Bld) [Entitic vol] 17.26 Invalid Interpretation Code 0.00 - 20.00 AO Workflow SS Comment on above: Result Comment: For ED adult patients suspected of sepsis, MDW<=20.0 does not rule out sepsis or risk of sepsis Monocyte, Absolute 1.8 103/mcL Invalid Interpretation Code 0.2 - 1.0 10^3/mcL AO Workflow SS Monocytes/100 WBC (Bld) 15.8 % Invalid Interpretation Code 1.7 - 13.0 % AO Workflow SS Neutrophil, Absolute 7.8 103/mcL Invalid Interpretation Code 2.9 - 6.2 10^3/mcL AO Workflow SS Neutrophils/100 WBC (Bld) 66.9 % Invalid Interpretation Code 37.0 - 80.0 % AO Workflow SS Platelet mean volume (Bld) [Entitic vol] 6.4 fL Invalid Interpretation Code 7.4 - 10.4 fL AO Workflow SS Platelets (Bld) [#/Vol] 247 103/mcL Invalid Interpretation Code 130 - 400 10^3/mcL AO Workflow SS RBC (Bld) [#/Vol] 3.71 106/mcL Invalid Interpretation Code 4.20 - 5.40 10^6/mcL AO Workflow SS WBC (Bld) [#/Vol] 11.6 103/mcL Invalid Interpretation Code 4.6 - 10.8 10^3/mcL AO Workflow SS Albumin BCP dye [Mass/Vol] 3.1 G/dL Invalid Interpretation Code 3.4 - 4.8 G/dL AO ADM SS Albumin/Globulin [Mass ratio] 0.6 {ratio} Invalid Interpretation Code 1.1 - 2.5 ratio AO ADM SS ALP [Catalytic activity/Vol] 73 U/L Invalid Interpretation Code 40 - 135 U/L AO ADM SS ALT With P-5'-P [Catalytic activity/Vol] 27 U/L Invalid Interpretation Code 14 - 59 U/L AO ADM SS Ammonia (P) [Mass/Vol] umol/l Invalid Interpretation Code 11 - 32 umol/l AO ADM SS Appearance (U) Clear (02/24/22 9:54 AM) Invalid Interpretation Code Clear AO Auto Urine SS AST With P-5'-P [Catalytic activity/Vol] 42 U/L Invalid Interpretation Code 10 - 40 U/L AO ADM SS Bacteria LM.HPF (Urine sed) [#/Area] Trace /HPF Invalid Interpretation Code AO Auto Urine SS Bilirubin [Mass/Vol] 0.3 mg/dL Invalid Interpretation Code 0.2 - 1.0 mg/dL AO ADM SS Bilirubin Ql (U) Negative (02/24/22 9:54 AM) Invalid Interpretation Code Negative AO Auto Urine SS Calcium [Mass/Vol] 9.9 mg/dL Invalid Interpretation Code 8.4 - 10.2 mg/dL AO ADM SS Chloride [Moles/Vol] 93 mmol/L Invalid Interpretation Code 98 - 107 mmol/L AO ADM SS CO2 [Moles/Vol] 30 mmol/L Invalid Interpretation Code 23 - 31 mmol/L AO ADM SS Color (U) Yellow (02/24/22 9:54 AM) Invalid Interpretation Code AO Auto Urine SS Creatinine [Mass/Vol] 1.17 mg/dL Invalid Interpretation Code 0.55 - 1.02 mg/dL AO ADM SS Electrolyte Balance 9.0 mEq/L Invalid Interpretation Code 4.0 - 15.0 mEq/L AO ADM SS FLUAV RNA ADAM+probe Ql (Upper resp) Negative (02/24/22 9:54 AM) Invalid Interpretation Code Negative AO Auto Urine SS FLUBV RNA ADAM+probe Ql (Upper resp) Negative (02/24/22 9:54 AM) Invalid Interpretation Code Negative AO Auto Urine SS Globulin 5.0 G/dL Invalid Interpretation Code AO ADM SS Glucose [Mass/Vol] 90 mg/dL Invalid Interpretation Code 80 - 115 mg/dL AO ADM SS Glucose Test strip (U) [Mass/Vol] Negative Invalid Interpretation Code Negativemg/d L AO Auto Urine SS Hemoglobin Auto test strip (U) [Mass/Vol] Negative (02/24/22 9:54 AM) Invalid Interpretation Code Negative AO Auto Urine SS Ketones Ql (U) Negative Invalid Interpretation Code Negativemg/d L AO Auto Urine SS Lactate [Moles/Vol] 2.0 mmol/L Invalid Interpretation Code 0.4 - 2.0 mmol/L AO ADM SS LDose Valproic Acid: See eMAR (02/24/22 9:54 AM) Invalid Interpretation Code AO Chemistry S Potassium [Moles/Vol] 4.2 mmol/L Invalid Interpretation Code 3.5 - 5.1 mmol/L AO ADM SS Protein [Mass/Vol] 8.1 G/dL Invalid Interpretation Code 6.4 - 8.2 G/dL AO ADM SS RSV RNA ADAM+probe Ql (Upper resp) Negative (02/24/22 9:54 AM) Invalid Interpretation Code Negative AO Auto Urine SS SARS-CoV-2 (COVID-19) RNA ADAM+probe Ql (Resp) Negative results do not preclude SARS-CoV-2 infection and should not be used as the sole basis for patient management decisions. Negative results must be combined with clinical observations, patient history, and epidemiological information.There is a risk of false negative values resulting from improperly collected, transported, or handled specimens.There is a risk of false negative values due to the presence of sequence variants in the pathogen targets of the assay, procedural errors, amplification inhibitors in specimens, or inadequate numbers of organisms for amplification.[facility]ICE[facility] SARS-CoV-2 Assay is a Real-Time reverse-transcriptas e polymerase chain reaction (RT-PCR) based qualitative in vitro diagnostic test intended for the qualitative detection of nucleic acid from the SARS-CoV-2 in nasopharyngeal swab specimens collected from individuals suspected of COVID-19 by their healthcare provider. Testing is limited to laboratories certified under the Clinical Laboratory Improvement Amendments of 1988 (CLIA), 42 U.S.C. 263a, to perform moderate and high complexity tests. Invalid Interpretation Code AO Auto Urine SS Sodium [Moles/Vol] 132 mmol/L Invalid Interpretation Code 136 - 145 mmol/L AO ADM SS Troponin I.cardiac DL <= 0.01 ng/mL [Mass/Vol] 12.6 ng/L Invalid Interpretation Code 0.0 - 51.4 ng/L AO ADM SS UA Leuk Est Small *ABN* (02/24/22 9:54 AM) Invalid Interpretation Code Negative AO Auto Urine SS UA Nitrite Negative (02/24/22 9:54 AM) Invalid Interpretation Code Negative AO Auto Urine SS UA pH 7.0 (02/24/22 9:54 AM) Invalid Interpretation Code 5.0 - 8.0 AO Auto Urine SS UA Protein Negative Invalid Interpretation Code Negativemg/d L AO Auto Urine SS UA RBC 0-5 /HPF Invalid Interpretation Code None Seen/HPF AO Auto Urine SS UA Renal Epithelial 0-5 /HPF Invalid Interpretation Code AO Auto Urine SS UA Spec Grav 1.020 (02/24/22 9:54 AM) Invalid Interpretation Code 1.015-1.025 AO Auto Urine SS UA Specimen Type Catheter (02/24/22 9:54 AM) Invalid Interpretation Code AO Auto Urine SS UA Squam Epithelial 5-10 /HPF Invalid Interpretation Code None Seen/HPF AO Auto Urine SS UA Urobilinogen 0.2 E.U./dL Invalid Interpretation Code 0.2-1.0E.U./ dL AO Auto Urine SS Urea nitrogen [Mass/Vol] 23 mg/dL Invalid Interpretation Code 7 - 18 mg/dL AO ADM SS Urea nitrogen/Creatinine [Mass ratio] 20 ratio Invalid Interpretation Code 7 - 27 ratio AO ADM SS Valproate [Mass/Vol] 110 ug/mL Invalid Interpretation Code 50 - 100 mcg/mL AO ADM SS WBC LM.HPF (Urine sed) [#/Area] 5-10 /HPF Invalid Interpretation Code None Seen/HPF AO Auto Urine SS LABORATORYOrdered By: SYSTEM SYSTEM on 02-24-2022 GFR 56 ml/min/1.73sqm Invalid Interpretation Code AO Chemistry S GFR Non- 46 ml/min/1.73sqm Invalid Interpretation Code AO Chemistry S No Panel Informationon 02-24 Microscopic examination of blood, culture Culture has been received in lab and is no growth to date. Routine cultures are held for [address] [facility] LABORATORYOrdered By: Cristiane Hunter on 02-12-2022 Albumin BCP dye [Mass/Vol] 3.3 G/dL Invalid Interpretation Code 3.4 - 4.8 G/dL AO ADM SS Albumin/Globulin [Mass ratio] 0.7 {ratio} Invalid Interpretation Code 1.1 - 2.5 ratio AO ADM SS ALP [Catalytic activity/Vol] 61 U/L Invalid Interpretation Code 40 - 135 U/L AO ADM SS ALT With P-5'-P [Catalytic activity/Vol] 33 U/L Invalid Interpretation Code 14 - 59 U/L AO ADM SS AST With P-5'-P [Catalytic activity/Vol] 49 U/L Invalid Interpretation Code 10 - 40 U/L AO ADM SS Bilirubin [Mass/Vol] 0.3 mg/dL Invalid Interpretation Code 0.2 - 1.0 mg/dL AO ADM SS Calcium [Mass/Vol] 10.1 mg/dL Invalid Interpretation Code 8.4 - 10.2 mg/dL AO ADM SS Chloride [Moles/Vol] 104 mmol/L Invalid Interpretation Code 98 - 107 mmol/L AO ADM SS CO2 [Moles/Vol] 28 mmol/L Invalid Interpretation Code 23 - 31 mmol/L AO ADM SS Creatinine [Mass/Vol] 1.07 mg/dL Invalid Interpretation Code 0.55 - 1.02 mg/dL AO ADM SS Electrolyte Balance 9.0 mEq/L Invalid Interpretation Code 4.0 - 15.0 mEq/L AO ADM SS Globulin 4.6 G/dL Invalid Interpretation Code AO ADM SS Glucose [Mass/Vol] 124 mg/dL Invalid Interpretation Code 80 - 115 mg/dL AO ADM SS Potassium [Moles/Vol] 3.8 mmol/L Invalid Interpretation Code 3.5 - 5.1 mmol/L AO ADM SS Protein [Mass/Vol] 7.9 G/dL Invalid Interpretation Code 6.4 - 8.2 G/dL AO ADM SS Sodium [Moles/Vol] 141 mmol/L Invalid Interpretation Code 136 - 145 mmol/L AO ADM SS Urea nitrogen [Mass/Vol] 27 mg/dL Invalid Interpretation Code 7 - 18 mg/dL AO ADM SS Urea nitrogen/Creatinine [Mass ratio] 25 ratio Invalid Interpretation Code 7 - 27 ratio AO ADM SS LABORATORYOrdered By: Noelle Ferreira on 02-12-2022 Basophil, Absolute 0.0 103/mcL Invalid Interpretation Code 0.0 - 0.2 10^3/mcL AO Workflow SS Basophils/100 WBC (Bld) 0.2 % Invalid Interpretation Code 0.0 - 2.5 % AO Workflow SS Eosinophil, Absolute 0.3 103/mcL Invalid Interpretation Code 0.0 - 0.4 10^3/mcL AO Workflow SS Eosinophils/100 WBC (Bld) 3.1 % Invalid Interpretation Code 0.0 - 7.0 % AO Workflow SS Erythrocyte distribution width (RBC) [Ratio] 15.0 % Invalid Interpretation Code 11.5 - 14.5 % AO Workflow SS Hematocrit (Bld) [Volume fraction] 34.5 % Invalid Interpretation Code 37.0 - 47.0 % AO Workflow SS Hemoglobin (Bld) [Mass/Vol] 11.7 G/dL Invalid Interpretation Code 12.0 - 16.0 G/dL AO Workflow SS Lymphocyte, Absolute 2.4 103/mcL Invalid Interpretation Code 0.8 - 3.9 10^3/mcL AO Workflow SS Lymphocytes/100 WBC (Bld) 26.0 % Invalid Interpretation Code 10.0 - 50.0 % AO Workflow SS MCH (RBC) [Entitic mass] 29.4 pg Invalid Interpretation Code 27.0 - 31.2 pg AO Workflow SS MCHC 33.8 G/dL Invalid Interpretation Code 33.0 - 37.0 G/dL AO Workflow SS MCV (RBC) [Entitic vol] 87.0 fL Invalid Interpretation Code 80.0 - 94.0 fL AO Workflow SS Monocyte, Absolute 1.2 103/mcL Invalid Interpretation Code 0.2 - 1.0 10^3/mcL AO Workflow SS Monocytes/100 WBC (Bld) 12.2 % Invalid Interpretation Code 1.7 - 13.0 % AO Workflow SS Neutrophil, Absolute 5.5 103/mcL Invalid Interpretation Code 2.9 - 6.2 10^3/mcL AO Workflow SS Neutrophils/100 WBC (Bld) 58.5 % Invalid Interpretation Code 37.0 - 80.0 % AO Workflow SS Platelet mean volume (Bld) [Entitic vol] 7.5 fL Invalid Interpretation Code 7.4 - 10.4 fL AO Workflow SS Platelets (Bld) [#/Vol] 145 103/mcL Invalid Interpretation Code 130 - 400 10^3/mcL AO Workflow SS RBC (Bld) [#/Vol] 3.97 106/mcL Invalid Interpretation Code 4.20 - 5.40 10^6/mcL AO Workflow SS WBC (Bld) [#/Vol] 9.4 103/mcL Invalid Interpretation Code 4.6 - 10.8 10^3/mcL AO Workflow SS LABORATORYOrdered By: SYSTEM SYSTEM on 02-12-2022 GFR 62 ml/min/1.73sqm Invalid Interpretation Code AO Chemistry S GFR Non- 51 ml/min/1.73sqm Invalid Interpretation Code AO Chemistry S LABORATORYOrdered By: Noelle Ferreira on 03-18-2021 Appearance (U) Slightly Cloudy *ABN* (03/18/21 6:30 PM) Invalid Interpretation Code Clear AO Auto Urine SS Bilirubin Ql (U) Negative (03/18/21 6:30 PM) Invalid Interpretation Code Negative AO Auto Urine SS Color (U) Yellow (03/18/21 6:30 PM) Invalid Interpretation Code AO Auto Urine SS Glucose Test strip (U) [Mass/Vol] Negative Invalid Interpretation Code Negativemg/d L AO Auto Urine SS Hemoglobin Auto test strip (U) [Mass/Vol] Trace *ABN* (03/18/21 6:30 PM) Invalid Interpretation Code Negative AO Auto Urine SS Ketones Ql (U) Negative Invalid Interpretation Code Negativemg/d L AO Auto Urine SS UA Leuk Est Small *ABN* (03/18/21 6:30 PM) Invalid Interpretation Code Negative AO Auto Urine SS UA Nitrite Negative (03/18/21 6:30 PM) Invalid Interpretation Code Negative AO Auto Urine SS UA pH 6.0 (03/18/21 6:30 PM) Invalid Interpretation Code 5.0 - 8.0 AO Auto Urine SS UA Protein Negative Invalid Interpretation Code Negativemg/d L AO Auto Urine SS UA RBC 5-10 /HPF Invalid Interpretation Code None Seen/HPF AO Auto Urine SS UA Spec Grav >=1.030 *ABN* (03/18/21 6:30 PM) Invalid Interpretation Code 1.015-1.025 AO Auto Urine SS UA Specimen Type Clean Catch (03/18/21 6:30 PM) Invalid Interpretation Code AO Auto Urine SS UA Squam Epithelial 0-5 /HPF Invalid Interpretation Code None Seen/HPF AO Auto Urine SS UA Urobilinogen 0.2 E.U./dL Invalid Interpretation Code 0.2-1.0E.U./ dL AO Auto Urine SS WBC LM.HPF (Urine sed) [#/Area] 10-15 /HPF Invalid Interpretation Code None Seen/HPF AO Auto Urine SS Basophil, Absolute 0.10 103/mcL Invalid Interpretation Code 0.00 - 0.19 10^3/mcL AO Auto Heme SS Basophils/100 WBC (Bld) 0.5 % Invalid Interpretation Code 0.0 - 2.5 % AO Auto Heme SS Calcium [Mass/Vol] 10.5 mg/dL Invalid Interpretation Code 8.4 - 10.2 mg/dL AO ADM SS Chloride [Moles/Vol] 101 mmol/L Invalid Interpretation Code 98 - 107 mmol/L AO ADM SS CO2 [Moles/Vol] 26 mmol/L Invalid Interpretation Code 23 - 31 mmol/L AO ADM SS Creatinine [Mass/Vol] 1.03 mg/dL Invalid Interpretation Code 0.55 - 1.02 mg/dL AO ADM SS Electrolyte Balance 13.0 mEq/L Invalid Interpretation Code AO ADM SS Eosinophil, Absolute 0.00 103/mcL Invalid Interpretation Code 0.00 - 0.40 10^3/mcL AO Auto Heme SS Eosinophils/100 WBC (Bld) 0.3 % Invalid Interpretation Code 0.0 - 7.0 % AO Auto Heme SS Erythrocyte distribution width (RBC) [Ratio] 14.0 % Invalid Interpretation Code 11.5 - 14.5 % AO Auto Heme SS Glucose [Mass/Vol] 128 mg/dL Invalid Interpretation Code 80 - 115 mg/dL AO ADM SS Hematocrit (Bld) [Volume fraction] 36.8 % Invalid Interpretation Code 37.0 - 47.0 % AO Auto Heme SS Hemoglobin (Bld) [Mass/Vol] 12.3 G/dL Invalid Interpretation Code 12.0 - 16.0 G/dL AO Auto Heme SS LDose Valproic Acid: Unknown (03/18/21 4:04 PM) Invalid Interpretation Code AO Chemistry S Lymphocyte, Absolute 1.90 103/mcL Invalid Interpretation Code 0.77 - 3.85 10^3/mcL AO Auto Heme SS Lymphocytes/100 WBC (Bld) 13.4 % Invalid Interpretation Code 10.0 - 50.0 % AO Auto Heme SS MCH (RBC) [Entitic mass] 28.3 pg Invalid Interpretation Code 27.0 - 31.2 pg AO Auto Heme SS MCHC (RBC) [Mass/Vol] 33.4 G/dL Invalid Interpretation Code 33.0 - 37.0 G/dL AO Auto Heme SS MCV (RBC) [Entitic vol] 84.7 fL Invalid Interpretation Code 80.0 - 94.0 fL AO Auto Heme SS Monocyte, Absolute 0.90 103/mcL Invalid Interpretation Code 0.15 - 1.00 10^3/mcL AO Auto Heme SS Monocytes/100 WBC (Bld) 6.6 % Invalid Interpretation Code 1.7 - 13.0 % AO Auto Heme SS Neutrophil, Absolute 11.40 103/mcL Invalid Interpretation Code 2.85 - 6.16 10^3/mcL AO Auto Heme SS Neutrophils/100 WBC (Bld) 79.2 % Invalid Interpretation Code 37.0 - 80.0 % AO Auto Heme SS Platelet mean volume (Bld) [Entitic vol] 8.1 fL Invalid Interpretation Code 7.4 - 10.4 fL AO Auto Heme SS Platelets (Bld) [#/Vol] 225 103/mcL Invalid Interpretation Code 130 - 400 10^3/mcL AO Auto Heme SS Potassium [Moles/Vol] 4.1 mmol/L Invalid Interpretation Code 3.5 - 5.1 mmol/L AO ADM SS RBC (Bld) [#/Vol] 4.34 106/mcL Invalid Interpretation Code 4.20 - 5.40 10^6/mcL AO Auto Heme SS Sodium [Moles/Vol] 140 mmol/L Invalid Interpretation Code 136 - 145 mmol/L AO ADM SS Urea nitrogen [Mass/Vol] 31 mg/dL Invalid Interpretation Code 7 - 18 mg/dL AO ADM SS Urea nitrogen/Creatinine [Mass ratio] 30 ratio Invalid Interpretation Code 7 - 27 ratio AO ADM SS Valproate [Mass/Vol] 109 ug/mL Invalid Interpretation Code 50 - 100 mcg/mL AO ADM SS WBC (Bld) [#/Vol] 14.40 103/mcL Invalid Interpretation Code 4.60 - 10.80 10^3/mcL AO Auto Heme SS LABORATORYOrdered By: SYSTEM SYSTEM on 03-18-2021 GFR 65 ml/min/1.73sqm Invalid Interpretation Code AO Chemistry S GFR Non- 54 ml/min/1.73sqm Invalid Interpretation Code AO Chemistry S Vital Signs Date Time Vital Sign Value Performing Clinician Gume michele 08-13-2023 10:40-0400 Heart rate 88 /min JAMEY HORACIO MD [address] [place] [address] 08-13-2023 10:40-0400 Respiratory rate 18 /min JAMEY LEONARD MD [address] [place] [address] 08-13-2023 06:35-0400 Body temperature 98.24 [degF] JAMEY LEONARD MD [address] [place] [address] 08-13-2023 06:35-0400 Diastolic Blood Pressure Non-Invasive 76 mm[Hg] JAMEY LEONARD MD [address] [place] [address] 08-13-2023 06:35-0400 Heart rate 80 /min JAMEY LEONARD MD [address] [place] [address] 08-13-2023 06:35-0400 Respiratory rate 16 /min JAMEY LEONARD MD [address] [place] [address] 08-13-2023 06:35-0400 Systolic Blood Pressure Non-Invasive 129 mm[Hg] JAMEY LEONARD MD [address] [place] [address] 08-13-2023 06:34-0400 Heart rate 82 /min JAMEY LEONARD MD [address] [place] [address] 08-13-2023 06:34-0400 Respiratory rate 17 /min JAMEY LEONARD MD [address] [place] [address] 08-12-2023 22:46-0400 Body temperature 97.7 [degF] JAMEY LEONARD MD [address] [place] [address] 08-12-2023 22:46-0400 Diastolic Blood Pressure Non-Invasive 66 mm[Hg] JAMEY LEONARD MD [address] [place] [address] 08-12-2023 22:46-0400 Reason For Taking VItal Signs JAMEY LEONARD MD [address] [place] [address] 08-12-2023 22:46-0400 Systolic Blood Pressure Non-Invasive 113 mm[Hg] JAMEY LEONARD MD [facility] 08-12-2023 16:18-0400 Blood Pressure Cuff Size JAMEY LEONARD MD [facility] 08-12-2023 16:18-0400 Blood Pressure Location JAMEY LEONARD MD [facility] 08-12-2023 16:18-0400 Blood Pressure Method JAMEY LEONARD MD [address] [place] [address] 08-12-2023 16:18-0400 Body temperature 98.06 [degF] JAMEY LEONARD MD [address] [place] [address] 08-12-2023 16:18-0400 Diastolic Blood Pressure Non-Invasive 82 mm[Hg] JAMEY LEONARD MD [address] [place] [address] 08-12-2023 16:18-0400 Reason For Taking VItal Signs JAMEY LEONARD MD [address] [place] [address] 08-12-2023 16:18-0400 Systolic Blood Pressure Non-Invasive 132 mm[Hg] JAMEY LEONARD MD [address] [place] [address] 08-12-2023 08:41-0400 Reason For Taking VItal Signs JAMEY LEONARD MD [address] [place] [address] 08-12-2023 06:46-0400 Blood Pressure Cuff Size JAMEY LEONARD MD [address] [place] [address] 08-12-2023 06:46-0400 Blood Pressure Location JAMEY LEONARD MD [address] [place] [address] 08-12-2023 06:46-0400 Blood Pressure Method JAMEY LEONARD MD [address] [place] [address] 08-11-2023 14:55-0400 Blood Pressure Cuff Size JAMEY LEONARD MD [address] [place] [address] 08-11-2023 14:55-0400 Blood Pressure Location JAMEY LEONARD MD [address] [place] [address] 08-11-2023 14:55-0400 Blood Pressure Method JAMEY LEONARD MD [address] [place] [address] 08-10-2023 11:04-0400 Heart rate 84 /min JAMEY LEONARD MD [address] [place] [address] 08-10-2023 07:16-0400 Heart rate 89 /min JAMEY LEONARD MD [address] [place] [address] 08-10-2023 03:44-0400 Heart rate 79 /min JAMEY LEONARD MD [address] [place] [address] 08-09-2023 10:50-0400 Mean blood pressure 91 mm[Hg] JAMEY LEONARD MD [address] [place] [address] 08-09-2023 10:35-0400 Mean blood pressure 93 mm[Hg] JAMEY LEONARD MD [address] [place] [address] 08-09-2023 10:20-0400 Body temperature 96.8 [degF] JAMEY LEONARD MD [address] [place] [address] 08-09-2023 10:20-0400 Mean blood pressure 91 mm[Hg] JAMEY LEONARD MD [address] 08-08-2023 08:05-0400 Heart rate 84 /min JAMEY LEONARD MD [address] [place] [address] 08-08-2023 04:28-0400 Body temperature 98.06 [degF] JAMEY LEONARD MD [address] [place] [address] 08-08-2023 04:28-0400 Heart rate 72 /min JAMEY LEONARD MD [address] [place] [address] 08-07-2023 15:21-0400 Body temperature 99.14 [degF] JAMEY LEONARD MD [address] [place] [address] 08-07-2023 10:00-0400 Body temperature 98.78 [degF] JAMEY LEONARD MD [facility] 08-05-2023 13:40-0400 Body height 160 cm JAMEY LEONARD MD [facility] 08-05-2023 13:40-0400 Body weight 76.6 kg JAMEY LEONARD MD [facility] 08-05-2023 13:40-0400 Body weight 29.92 kg/m2 JAMEY LEONARD MD [facility] 08-04-2023 20:54-0400 Diastolic Blood Pressure Non-Invasive 65 mm[Hg] AIDEN FROMMELT DO [facility] 08-04-2023 20:54-0400 Heart rate 96 /min AIDEN FROMMELT DO [facility] 08-04-2023 20:54-0400 Respiratory rate 20 /min AIDEN FROMMELT DO [facility] 08-04-2023 20:54-0400 Systolic Blood Pressure Non-Invasive 121 mm[Hg] AIDEN FROMMELT DO [facility] 08-04-2023 19:10-0400 Diastolic Blood Pressure Non-Invasive 56 mm[Hg] AIDEN FROMMELT DO [facility] 08-04-2023 19:10-0400 Heart rate 101 /min AIDEN FROMMELT DO [facility] 08-04-2023 19:10-0400 Respiratory rate 20 /min AIDEN FROMMELT DO [facility] 08-04-2023 19:10-0400 Systolic Blood Pressure Non-Invasive 124 mm[Hg] AIDEN FROMMELT DO [facility] 08-04-2023 18:03-0400 Diastolic Blood Pressure Non-Invasive 61 mm[Hg] AIDEN BELTRANT DO [facility] 08-04-2023 18:03-0400 Heart rate 108 /min AIDEN BELTRANT DO [facility] 08-04-2023 18:03-0400 Systolic Blood Pressure Non-Invasive 124 mm[Hg] AIDEN BELTRANT DO [facility] 08-04-2023 15:57-0400 Mean blood pressure 78 mm[Hg] AIDEN BELTRANT DO [facility] 08-04-2023 15:57-0400 Reason For Taking VItal Signs AIDEN MARQUEZ DO [facility] 08-04-2023 15:57-0400 Respiratory rate 20 /min AIDEN MARQUEZ DO [facility] 08-04-2023 13:17-0400 Body height 160 cm AIDEN MARQUEZ DO [facility] 08-04-2023 13:17-0400 Body temperature 97.88 [degF] AIDEN MARQUEZ DO [facility] 08-04-2023 13:17-0400 Body weight 76 kg AIDEN BELTRANT DO [facility] 08-02-2023 11:51-0400 Blood Pressure Location FISH JORDAN TRAVEL COORDINATOR - [employer] [facility] 08-02-2023 11:51-0400 Blood Pressure Method [employer] TRAVEL COORDINATOR - [employer] [facility] 08-02-2023 11:51-0400 Body temperature 98.96 [degF] [employer] JORD[employer] TRAVEL COORDINATOR - [employer] 08-02-2023 11:51-0400 Diastolic Blood Pressure Non-Invasive 85 mm[Hg] FISH JORDAN TRAVEL COORDINATOR - [employer] 08-02-2023 11:51-0400 Heart rate 90 /min FISH JORDAN TRAVEL COORDINATOR - [employer] [facility] 08-02-2023 11:51-0400 Respiratory rate 18 /min FISH JORDAN TRAVEL COORDINATOR - [employer] 08-02-2023 11:51-0400 Systolic Blood Pressure Non-Invasive 112 mm[Hg] FISH JORDAN TRAVEL COORDINATOR - [employer] 02-24-2022 13:35-0500 Diastolic Blood Pressure Non-Invasive [address] [facility] 02-24-2022 13:35-0500 Heart rate 76 /min DR KYLE TELLO MD [facility] 02-24-2022 13:35-0500 Respiratory rate 16 /min DR KYLE TELLO MD [facility] 02-24-2022 13:35-0500 Systolic Blood Pressure Non-Invasive [address] [facility] 02-24-2022 11:14-0500 Diastolic Blood Pressure Non-Invasive [address] [facility] 02-24-2022 11:14-0500 Heart rate 78 /min DR KYLE TELLO MD [facility] 02-24-2022 11:14-0500 Respiratory rate 16 /min DR KYLE TELLO MD [facility] 02-24-2022 11:14-0500 Systolic Blood Pressure Non-Invasive [address] [facility] 02-24-2022 09:36-0500 Body temperature 98.06 [degF] DR KYLE TELLO MD [facility] 02-24-2022 09:36-0500 Diastolic Blood Pressure Non-Invasive [address]O [address] [facility] 02-24-2022 09:36-0500 Heart rate 87 /min DR KYLE TELLO MD [facility] 02-24-2022 09:36-0500 Respiratory rate 18 /min DR KYLE TELLO MD [facility] 02-24-2022 09:36-0500 Systolic Blood Pressure Non-Invasive [address] [facility] 03-18-2021 20:06-0500 Diastolic blood pressure 72 mm[Hg] DR BUCK BURDICK MD [facility] 03-18-2021 20:06-0500 Heart rate 93 /min DR BUCK BURDICK MD [facility] 03-18-2021 20:06-0500 Respiratory rate 20 /min DR BUCK BURDICK MD [facility] 03-18-2021 20:06-0500 Systolic blood pressure 120 mm[Hg] DR BUCK BURDICK MD [facility] 03-18-2021 17:35-0500 Diastolic blood pressure 82 mm[Hg] DR BUCK BURDICK MD [facility] 03-18-2021 17:35-0500 Heart rate 94 /min DR BUCK BURDICK MD [facility] 03-18-2021 17:35-0500 Reason For Taking VItal Signs DR BUCK BURDICK MD [facility] 03-18-2021 17:35-0500 Respiratory rate 20 /min DR BUCK BURDICK MD [facility] 03-18-2021 17:35-0500 Systolic blood pressure 122 mm[Hg] DR BUCK BURDICK MD [facility] 03-18-2021 15:55-0500 Diastolic blood pressure 76 mm[Hg] DR BUCK BURDICK MD [facility] 03-18-2021 15:55-0500 Heart rate 98 /min DR BUCK BURDICK MD [facility] 03-18-2021 15:55-0500 Respiratory rate 18 /min DR BUCK BURDICK MD [facility] 03-18-2021 15:55-0500 Systolic blood pressure 144 mm[Hg] DR BUCK BURDICK MD [facility] 03-18-2021 15:09-0500 Body temperature 98.24 [degF] DR BUCK BURDICK MD [facility] 03-18-2021 15:09-0500 Heart rate 115 /min DR BUCK BURDICK MD [facility] Encounters Encounter Date Encounter Type Care Provider Facility Start: 08-18-2024 End: 08-18-2024 ambulatory Elisa Maldonado MD [facility] Work Phone: Start: 08-18-2024 End: 08-18-2024 Departed Referred [facility] Start: 08-18-2024 End: 08-18-2024 ambulatory Aiden Wolfe Facility:[facility] Start: 07-20-2024 End: 07-20-[address] Aiden Wolfe DO Work Phone: [facility] Work Phone: Start: 07-20-2024 End: 07-20-2024 Departed Referred [facility] Start: 07-20-2024 End: 07-20-2024 ambulatory Elisa STANFORD Facility:[facility] Start: 06-22-2024 End: 06-22-[address] Aiden Wolfe DO Work Phone: [facility] Work Phone: Start: 06-22-2024 End: 06-22-2024 Departed Referred Elisa [facility] Start: 06-22-2024 End: 06-22-2024 ambulatory Elisa STANFORD Facility:[facility] Start: 05-21-2024 ambulatory Elisa STANFORD Facil ity:[facility] Start: 05-21-2024 Registered Referred Elisa Dhillon [facility] Start: 04-20-2024 ambulatory Elisa STANFORD Facil ity:[facility] Start: 04-20-2024 Registered Referred Elisa Dhillon [facility] Start: 03-05-2024 End: 03-05-2024 ambulatory Elisa Maldonado ABDOULAYE Facility:[facility] Start: 02-19-2024 End: 02-19-2024 ambulatory Aiden Wolfe Facility:[facility] Start: 02-05-2024 ambulatory FISH JORDAN Facili ty:[facility] Start: 01-20-2024 ambulatory Aiden Wolfe Facili ty:[facility] Start: 01-02-2024 ambulatory Aiden Wolfe Facili ty:[facility] Start: 12-20-2023 ambulatory Aiden Wolfe Facili ty:[facility] Start: 11-19-2023 End: 11-19-2023 ambulatory Aiden Wolfe Facility:[facility] Start: 10-21-2023 End: 10-21-2023 ambulatory Elisa Kemp Joel STANFORD Facility:[facility] Start: 10-09-2023 End: 10-09-2023 ambulatory Elisa STANFORD Facility:[facility] Start: 09-26-2023 End: 09-26-2023 ambulatory Elisa STANFORD Facility:[facility] Start: 09-16-2023 End: 09-16-2023 ambulatory FISH JORDAN TRAVEL COORDINATOR - HAND BINDER CUTTER Facility:B Start: 09-16-2023 End: 09-16-2023 Patient encounter procedure MARJ DEAN MD [facility] Start: 08-04-2023 End: 08-13-2023 Evaluation and management of inpatient JAMEYTRICIA LEONARD MD [facility] Start: 08-04-2023 End: 08-04-2023 Emergency department patient visit AIDEN ALMA [facility] Start: 08-02-2023 End: 08-02-2023 SAME DAY STAY FISH JORDAN TRAVEL COORDINATOR - HAND BINDER CUTTER [facility] Start: 08-02-2023 End: 08-02-2023 ambulatory FISH JORDAN TRAVEL COORDINATOR - HAND BINDER CUTTER Facility:B Start: 08-02-2023 End: 08-02-2023 Patient encounter procedure FISH POTTERPKINS TRAVEL COORDINATOR - HAND BINDER CUTTER [facility] Start: 06-20-2023 End: 06-24-2023 ambulatory FISH POTTERPKINS TRAVEL COORDINATOR - HAND BINDER CUTTER Facility:B Start: 06-20-2023 End: 06-24-2023 Outreach Lab FISH POTTERPKINS TRAVEL COORDINATOR - HAND BINDER CUTTER [facility] Start: 06-13-2023 End: 06-17-2023 ambulatory FISH POTTERPKINS TRAVEL COORDINATOR - HAND BINDER CUTTER Facility:B Start: 06-13-2023 End: 06-17-2023 Outreach Lab FISH POTTERPKINS TRAVEL COORDINATOR - HAND BINDER CUTTER [facility] Start: 01-07-2023 End: 01-07-2023 ambulatory FISH POTTERPKINS TRAVEL COORDINATOR - HAND BINDER CUTTER Facility:B Start: 12-24-2022 End: 12-24-2022 ambulatory FISH POTTERPKINS TRAVEL COORDINATOR - HAND BINDER CUTTER Facility:B Start: 12-24-2022 End: 12-24-[address] ELISA GAMBLE MD [facility] Start: 12-13-2022 End: 12-17-2022 ambulatory FISH POTTERPKINS TRAVEL COORDINATOR - HAND BINDER CUTTER Facility:B Start: 12-13-2022 End: 12-17-2022 Outreach Lab FISH POTTERPKINS TRAVEL COORDINATOR - HAND BINDER CUTTER [facility] Start: 09-28-2022 End: 09-28-2022 ambulatory FISH Erika NIKKI TRAVEL COORDINATOR - HAND BINDER CUTTER Facility:B Start: 09-28-2022 End: 09-28-2022 Patient encounter procedure FISH POTTERPKINS TRAVEL COORDINATOR - HAND BINDER CUTTER [facility] Start: 07-07-2022 End: 07-07-2022 Patient encounter procedure NANCIE Guero ALYSON DO [facility] Start: 06-07-2022 End: 06-11-2022 Outreach Lab FISH JORDAN TRAVEL COORDINATOR - HAND BINDER CUTTER [facility] Start: 05-08-2022 End: 05-08-2022 Patient encounter procedure MEKA KWON [facility] Start: 04-11-2022 End: 04-11-2022 Patient encounter procedure FISH JORDAN TRAVEL COORDINATOR - HAND BINDER CUTTER [facility] Start: 03-21-2022 End: 03-21-2022 Patient encounter procedure FISH JORDAN TRAVEL COORDINATOR - HAND BINDER CUTTER [facility] Start: 03-01-2022 End: 03-01-2022 Patient encounter procedure FISH JORDAN TRAVEL COORDINATOR - HAND BINDER CUTTER [facility] Start: 02-24-2022 End: 02-24-2022 Emergency department patient visit DR KYLE TELLO MD [facility] Start: 02-12-2022 End: 02-12-2022 Patient encounter procedure NANCIE Jack ALYSON DO [facility] Start: 12-12-2021 End: 12-12-[address] ELISA GAMBLE MD [facility] Start: 03-18-2021 End: 03-18-2021 Emergency department patient visit DR BUCK BURDICK MD [facility] Procedures Date Procedure Procedure Detail Performing Clinician Start: 07-20-2024 Parathyroid hormone measurement Elisa Maldonado MD Start: 07-20-2024 Serum inorganic phos phate measurement Elisa Maldonado MD Start: 07-20-2024 Total iron binding c apacity measurement Elisa Maldonado MD Start: 05-21-2024 Valproic acid measurement Elisa Maldonado MD Start: 05-21-2024 Vitamin D, 25-hydrox y measurement Elisa Maldonado MD Comment on above: Vitamin D 25(OH) Sta tus Range Deficiency <20 ng/mL (50nmol/L) Insufficiency 20 - 30 ng/mL (50 - 75 nmol/L) Sufficiency 30 - 100 ng/mL (75 - 250 nmol/L) Toxicity >100 ng/mL (>250 nmol/L) Start: 12-24-2022 Echocardiography FILIBERTO JORDAN TRAVEL COORDINATOR - HAND BINDER CUTTER Comment on above: 1. Left ventricle: T he cavity size is normal. Wall thickness is mildly increased. Systolic function is normal. The estimated ejection fraction is 55-60%. There is no dynamic obstruction. Wall motion is normal; there are no regional wall motion abnormalities. Normal diastolic function. Moderate basal septal hypertrophy with no significant gradient at rest or with Valsalva. 2. Aortic valve: The valve is trileaflet. The leaflets are mildly thickened. 3. Mitral valve: There is mild, 1+ regurgitation. 4. Left atrium: The atrium is mildly dilated Start: 12-12-2021 Echocardiography NANCIE VYAS DO Comment on above: 1. Left ventricle: T he cavity size is normal. Wall thickness is mildly increased with moderate hypertrophy of the proximal septum. Systolic function is normal. The estimated ejection fraction is 60-65%. Wall motion is normal; there are no regional wall motion abnormalities. Normal diastolic function. 2. Aortic valve: The valve is trileaflet. The leaflets are mildly thickened. 3. Mitral valve: There is mild, 1+ regurgitation. 4. Left atrium: The atrium is mildly dilated. 5. Right ventricle: The RV systolic pressure by Doppler is 12 mm Hg. 6. Pulmonic valve: There is trivial regurgitation. 7. Tricuspid valve: There is trivial regurgitation. Start: 12-20-[address] AND REW GENNARO CASAREZ Comment on above: EF 60-65% Start: 04-23-2014 Open reduction of fr acture with internal fixation DR BUCK BURDICK MD Comment on above: right foot Start: 04-15-[address] BUCK BURDICK MD Lumpectomy of breast DR MARC BURDICK MD Comment on above: Left Immunizations Immunization Date Immunization Notes Care Provider Fa cility 06-22-2020 SARS-CoV-2 (COVID-19 ) mRNA-12[address] ELISA GAMBLE MD [facility] 05-26-2020 SARS-CoV-2 (COVID-19 ) mRNA-[address] ELISA GAMBLE MD [facility] 02-07-2017 influenza virus vaccine, unspecified formulation DR ELISA GAMBLE MD [facility] 01-31-2016 influenza virus vaccine, unspecified formulation DR ELISA GAMBLE MD [facility] 01-31-2016 influenza, injectabl e, quadrivalent, preservative free Dr. Aiden Wolfe DO Work Phone: [facility] Payers Date Payer Category Payer Unknown [id number] 2023 Self-pay 2023 Unknown [id number] 2016 Medicaid [id number] 1987 Medicare [id number] 1955 Unknown [id number] 2.16.8 40.1.216325.3.579.2.7 1955 Unknown [id number] 2.16.8 40.1.388955.3.579.2. 1956 Unknown [id number] 2.16.8 40.1.218842.3.579.2.627 1956 Unknown [id number] 2.16.8 40.1.338362.3.579.2. 1956 Unknown [id number] 2.16.8 40.1.705002.3.579.2.62 1956 Unknown [id number] 2.16.8 40.1.624932.3.579.2. 1956 Unknown [id number] 2.16.8 40.1.554782.3.579.2. 1956 Unknown [id number] 2.16.8 40.1.323524.3.579.2. 1956 Unknown [id number] 2.16.8 40.1.245096.3.579.2. 1956 Unknown [id number] 2.16.8 40.1.533826.3.579.2. 1956 Unknown [id number] 2.16.8 40.1.093671.3.579.2. 1956 Unknown [id number] 2.16.8 40.1.199516.3.579.2. 1956 Unknown [id number] 2.16.8 40.1.197712.3.579.2. 1956 Unknown [id number] 2.16.8 40.1.051835.3.579.2.627 Unknown [id number] 2.16.8 40.1.636286.3.579.2.462 Unknown [id number] 2.16.8 40.1.850125.3.579.2.462 Unknown [id number] 2.16.8 40.1.893669.3.579.2.462 Unknown [id number] 2.16.8 40.1.394296.3.579.2.462 Unknown [id number] 2.16.8 40.1.211283.3.579.2.462 Unknown [id number] 2.16.8 40.1.096473.3.579.2.462 Unknown [id number] 2.16.8 40.1.128379.3.579.2.462 Unknown [id number] 2.16.8 40.1.777672.3.579.2.462 Unknown [id number] 2.16.8 40.1.213795.3.579.2.462 Unknown [id number] 2.16.8 40.1.471213.3.579.2.462 Unknown [id number] 2.16.8 40.1.651423.3.579.2.462 Unknown [id number] 2.16.8 40.1.904660.3.579.2.462 Unknown [id number] 2.16.8 40.1.475232.3.579.2.462 Unknown [id number] 2.16.8 40.1.062182.3.579.2.462 Social History Date Type Detail Facility Start: 01-31-2016 End: 05-12-2019 Never smoked tobacco (finding) [facility] Start: 1955 Sex Assigned At Female A [facility] Start: 01-31-2016 None None [facility] Start: 01-31-2016 With Family With Family [facility] Start: 07-15-2024 End: 07-20-2024 Sex Female (finding) [facility] Functional Status Date Assessment Result Facility 08-13-2023 Functional Status Repositions self [facility] 08-13-2023 Functional Status [facility] 08-13-2023 Functional Status [facility] 08-13-2023 Functional Status Identified as high risk, Bed alert on, Non-Slip footwear, Room check performed [facility] 08-13-2023 Functional Status [facility] 08-12-2023 Functional Status [facility] 08-12-2023 Functional Status Done [facility] 08-12-2023 Functional Status Supervised [facility] 08-12-2023 Functional Status [facility] 08-12-2023 Functional Status [facility] 08-12-2023 Functional Status bilateral knee high rem jaida/off [facility] 08-11-2023 Functional Status [facility] 08-11-2023 Functional Status [facility] 08-11-2023 Functional Status [facility] 08-11-2023 Functional Status [facility] 08-11-2023 [facility]10[facility] Status B[facility] 08-10-2023 Functional Status [facility] 08-10-2023 Functional Status Lunch Percent 0 [facility] 08-10-2023 Functional Status [facility] 08-10[facility]2023 Functional Status [facility] 08-09-2023 Functional Status [facility] 08-09-2023 Functional Status [facility] 08-09-2023 Functional Status unable to acqu miri home MOREIRA/baseline d/t extensive expressive aphasia, attempted to call POA/sister, unable to get a hold of, social work does not have any further information [facility] 08-09-2023 Functional Status Patient Identi fied Identification band [facility] 08-09-2023 Functional Status Maintained [facility] 08-09-2023 Functional Status [facility] 08-08-2023 [facility] Status [facility] 08[facility]08-2023 [facility] Status [facility] 08-08-2023 [facility] Status [facility]08[facility] Functional Status Special Call D evice Unable to use call device [facility] 08-08-2023 Functional Status Assistive Equi pment elevated on pillows [facility] 08-07-2023 Functional Status [facility] 08[facility]07-2023 Functional Status [facility] 08-07-2023 Functional Status [facility] 08-06-2023 [facility]23 [facility] 08-05-2023 Functional Status Sensory Deficits None A [facility] 08-05-2023 Functional Status No Living Envi ronment Information Available [facility] 08-05-2023 Functional Status [facility] 08-04-2023 Functional Status Room check performed [facility] 02-24-2022 Functional Status Standard Safet y ID band on, Call device within reach, Bed in low position, Wheels locked, Upper/Half-Length side-rails up, Phone within reach, personal items within reach, Assistive devices within reach, Toileting device within reach, Bedside Cart Locked, Visitor at bedside, Safety level maintained [facility] Mental Status Date Assessment Result Facility 08-13-2023 Mental Status Not oriented to place, Not oriented to time, Not oriented to situation [facility] 08-12-2023 Mental Status [facility] 08-04-2023 Mental Status Orientation Other: [facility] 02-24-2022 Mental Status Orientation Disoriented x [address] [facility] Clinical Notes 03-18-2021 to 08-13-2023 Note Date & Type Note Facility 08-13-2023 Discharge summary Date of Service 08/13/23 Discharge Diagnosis 1. Breakthrough seizure 2. Acute encephalopathy 3. Hyponatremia 4. Developmental delay 5. Asthma without exacerbation 6. Other history of HTN, HLD, obesity Additional Orders: Ordered: Discharge,08/13/23 10:00:00 EDT, Discharged to: [facility] Hospital Course 67-year-old female with past medical history of epilepsy, developmental delay, hypertension, hyperlipidemia and obesity. Patient presented to [facility] as a transfer from [facility] emergency department on 08/04/2023 with concerns for seizure and confusion. Lab work on admission showed leukocytosis of 15.8, hemoglobin was 11.1, glucose 134, sodium 130, creatinine 1.14. Ammonia level was 21. Troponin negative. Keppra level was elevated at 80.8. Valproic acid level 84. UA showed small leukocyte Estrace, negative for nitrates, 3-[address] of head showed no acute infarct or hemorrhage. Age appropriate involutional changes. CTA of head and neck showed no LVO or significant stenosis. A 2.2 cm right thyroid nodule was seen. Patient was afebrile, tachycardic at 117, blood pressure 188/91, on room air. The patient's home Keppra, and Depakote were resumed. Vimpat twice daily was added. An EEG was completed on 08/05/2023 showing abnormal awake and drowsy EEG due to mild to moderate nonspecific encephalopathy and increased risk for seizure. A 2-hour EEG was completed on 08/07/2023 which showed mild to moderate nonspecific encephalopathy, ongoing cortical irritability of the left hemisphere as well as a single focal seizure. The patient's Depakote was increased to 750 mg 3 times daily. An MRI of the brain was attempted with medication and patient was unable to tolerate procedure. Patient underwent MRI of the brain with anesthesia 08/09/23 showing mild volume loss and small vessel ischemic disease. Neurology recommending patient continue Keppra 1500mg BID, Depakote 750 mg TID, and Vimpat 100mg BID at discharge. No further seizure activity was noted on this regimen. Patient's mentation much improved prior to discharge. She [facility]. Infectious workup including chest x-ray and UA not concerning for infection. Blood culture showed no growth. Oxygen remained stable on room air. Speech therapy followed for dysphagia, recommended soft bite size, thin liquid diet. PT/OT recommending SNF, the patient was actually stable for discharge to [facility] care of mariama Patterson on 08/12/2023. The patient's TEREZA Diggs called in requesting a change of facility. The patient stayed overnight in the hospital due to facility change. No acute events noted overnight. Vital signs are hemodynamically stable. Mentation improving each day. Patient was alert to self, location and family. Patient is stable for discharge to [facility] SNF. Sister updated on plan. Case d/w Dr. Park. Allergies NKA Consults Consult to Anesthesia - Ordered -- 08/06/23 9:44:00 EDT, not specified, eval for MRI under sedation Consult to Physician - Ordered -- 08/05/23 2:32:00 EDT, GUTIERREZ PENA MD, Routine, seizures Imaging Results and Diagnostics MRI Brain w/o Contrast Result Date: August 09, 2023 Verified By: SAI SPEARS MD CLINICAL STATEMENT: IMPRESSION: Mild volume loss and small vessel ischemic disease. XR Chest 1 View Result Date: August 06, 2023 Verified By: SHARON MOORE MD CLINICAL STATEMENT: IMPRESSION: - Improved aeration of the right lung compared to the prior exam. - Left perihilar densities are similar compared to prior with a differentialincluding hypoventilation, mild vascular congestion, or abronchitis/bronchiolitis. Physical Exam Vitals and Measurements T: 36.8 C (Oral) TMIN: 36.5 C (Oral) TMAX: 36.8 C (Oral) HR: 80 RR: 16 BP: 129/76 SpO2: 97% Weight Dosing Weight: 76.6 kg (08/05/23) General: No acute distress. Alert Skin: No rash. Warm, Dry, Intact HEENT: Head is normocephalic and atraumatic. No lesions. Pupils equal in size. Extraocular movements within normal limits. Nose: No septal deviation. Mouth: Oropharynx mucosa is without lesion. Neck: Supple. No lymphadenopathy, thyromegaly noted. Lungs: Bilaterally clear/diminished breath sounds with no crepitation or wheeze. Unlabored on room air Cardiovascular: Heart is regular rhythm, S1S2, No extra-audible heart tones Abdomen: Abdomen is soft, nontender. Bowel sounds positive all four quadrants. Extremities: No clubbing, cyanosis or edema. Peripheral and distal pulses palpable. No calf tenderness. Adequate peripheral circulation. Neurological: The patient is awake, following commands, moving all extremities. Code Status Code Status - Ordered -- 08/04/23 23:46:00 EDT, Full Code, Constant Order Admission Date 08/04/23 Discharge Date 08/13/23 Medications New Prescription [id number] Milligram by mouth every six (6) hours WHILE AWAKE as needed Pain, scale 1-10. lacosamide (Vimpat 100 mg oral tablet)1 tab(s) by mouth two (2) times a day for 30 Days. Refills: 0. valproic acid (valproic acid 250 mg oral capsule)3 cap by mouth three (3) times a day for 30 Days. Refills: 0. Unchanged albuterol (albuterol MDI (90 mcg/inh) CFC free inhalation aerosol)2 puff(s) by inhalation every 6 hours for 30 Days. Refills: 1. amLODIPine (amLODIPine 5 mg oral tablet)1 tab(s) by mouth once a day for 90 Days. Refills: 1. benzonatate (Tessalon Perles 100 mg oral capsule)1 cap by mouth every 8 hours as needed as needed for cough. Refills: 0. cholecalciferol (cholecalciferol 1250 mcg (50,000 intl units) oral capsule)1 cap by mouth once a month for 30 Days. Failed conservative OTC daily use. Refills: 4. denosumab (Prolia 60 mg/mL subcutaneous solution)1 Milliliter Subcutaneous every 6 months for 6 month(s). M81.0. Refills: 1. DME (Spacer, inhaler)use as directed Pt has developmental disorder and spacer required to insure proper use of inhaler.. Refills: 0. evolocumab (Repatha SureClick 140 mg/mL subcutaneous solution)140 Milligram Subcutaneous every other week. Refills: 12. levETIRAcetam (levETIRAcetam 750 mg oral tablet)2 tab(s) by mouth two (2) times a day. losartan (losartan 100 mg oral tablet)1 tab(s) by mouth once a day for 90 Days. Refills: 1. melatonin (melatonin 3 mg oral tablet)2 tab(s) by mouth daily at bedtime as needed as needed for insomnia. rosuvastatin (rosuvastatin 10 mg oral tablet)1 tab(s) by mouth once a day for 90 Days. Refills: 1. Discontinued divalproex sodium (divalproex sodium 500 mg oral tablet, extended release)1 tab(s) by mouth three (3) times a day. hydroCHLOROthiazide (hydroCHLOROthiazide 25 mg oral tablet)1 tab(s) by mouth once a day for 90 Days. Refills: 1. loratadine (loratadine 10 mg oral tablet)1 tab(s) by mouth once a day. Refills: 1. Follow Up [facility] with [facility] When Within 1-2 days Why: follow up wtihin 2 weeks Where: [address] [place] [address]- Business (1) Follow Up with FISH JORDAN APRN - HAND BINDER CUTTER When Within 1-2 days Why: Please call the office to schedule a follow-up appointment Where: [address] [facility] [place] [address]- Follow Up Appointments Transfer of Care OT - Ordered -- Reason for therapy: weakness, 08/12/23 10:51:00 EDT Transfer of Care PT - Ordered -- Reason for therapy: weakness, 08/12/23 10:51:00 EDT Follow Up Labs/Studies Discharge Labs Transfer of Care Labwork - Ordered -- Valporic Acid level, monitor while on Valporic acid, follow-up within: 5-7 days, Results Notify to: FISH JORDAN APRN, CNP, 08/12/23 10:51:00 EDT Discharge Studies No Follow-up Studies Discharge Diet Transfer of Care Diet - Ordered -- Type of Diet: Soft and Bite [id number], Thin (Thinned)-IDDSI-0, 08/12/23 10:51:00 EDT Discharge Activity Transfer of Care Activity - Ordered -- As instructed by therapy, 08/12/23 10:51:00 EDT Condition on Discharge Stable Discharge Disposition SNF Information Provided To Patient Sister Time Spent 32 minutes Digitally Signed by ADEBAYO MARTINEZ on 08/13/2023 10:03 AM Digitally Signed by LENNY PARK DO on 08/13/2023 10:17 AM [facility] 08-13-2023 Note Discharge Instructions Thank you for allowing [facility] to assist you with your healthcare needs. The following is important discharge information regarding your hospital visit. Your Care Team FISH JORDAN APRN, CNP Your Diagnosis Developmentally disabled HTN (hypertension) Hyperlipidemia LDL goal <100 Seasonal asthma Seizure What to do next Scheduled Follow-Up Appointments Appointment Type When With Where Contact InformationPC Nurse Lab 12/12/2023 08:00 AM EDT [facility] 12/23/2023 07:00 AM EDT FISH JORDAN APRN, CNP [facility] Follow Up Appointments Follow Up with [facility] When Within 1-2 days Follow [facility] with [facility] When Within 1-2 days Why: follow up wtihin 2 weeks Where: [address] [place] [address]- Business (1) Follow Up with FISH JORDAN TRAVEL COORDINATOR - HAND BINDER CUTTER When Within 1-2 days Why: Please call the office to schedule a follow-up appointment Where: [address] [facility] [place] [address]- The Following Activity and Diet Have Been Ordered for You Transfer of Care Activity - Ordered -- As instructed by therapy, 08/12/23 10:51:00 EDT Transfer of Care Diet - Ordered -- Type of Diet: Soft and Bite [id number], Thin (Thinned)-IDDSI-0, 08/12/23 10:51:00 EDT The Following Equipment Has Been Ordered for You No qualifying data available. The Following Treatments Have Been Ordered for You Discharge Labs Transfer of Care Labwork - Ordered -- Valporic Acid level, monitor while on Valporic acid, follow-up within: 5-7 days, Results Notify to: FISH JORDAN TRAVEL COORDINATOR - HAND BINDER CUTTER, 08/12/23 10:51:00 EDT Discharge Radiology No qualifying data available. Other Therapies Transfer of Care OT - Ordered -- Reason for therapy: weakness, 08/12/23 10:51:00 EDT Transfer of Care PT - Ordered -- Reason for therapy: weakness, 08/12/23 10:51:00 EDT Post Acute Orders Transfer of Care Admission Level of Care - Ordered -- Level of Care SNF, 08/12/23 10:52:50 EDT Transfer of Care Code Status - Ordered -- Full Code, Constant Order Transfer of Care Communication Order - Ordered -- Expect less than 30 day stay., 08/12/23 10:52:50 EDT Transfer of Care Labwork - Ordered -- Valporic Acid level, monitor while on Valporic acid, follow-up within: 5-7 days, Results Notify to: FISH JORDAN APRN - HAND BINDER CUTTER, 08/12/23 10:51:00 EDT Transfer of Care Orders Electronically Signed By - Ordered -- 08/12/23 10:51:00 EDT, MANDA BENSON MD Transfer of Care Prognosis - Ordered -- Fair, Patient Aware: Yes Transfer of Care Rehab Potential - Ordered -- Rehab potential fair, 08/12/23 10:52:50 EDT Someone Will Contact You Regarding These Home Health Referrals No home referrals have been ordered for you. No one will call you. Allergies NKA Medications Please ask your primary doctor or pharmacist before taking any other medication not listed, including over the counter drugs, herbal medications, vitamins and or supplements as they may interact with your home medications. What How Much When Why Instructions Last Dose New acetaminophen 650 Milligram by mouth Every six (6) hours WHILE AWAKE as needed for Pain, scale 1-10 New lacosamide (Vimpat 100 mg oral tablet) 1 tab(s) by mouth Two (2) times a day Seizure Duration: 30 Days New valproic acid (valproic acid 250 mg oral capsule) 3 cap by mouth Three (3) times a day Duration: 30 Days Unchanged albuterol (albuterol MDI (90 mcg/ inh) CFC free inhalation aerosol) 2 puff(s) by inhalation Every 6 hours Seasonal asthma Developmentally disabled Duration: 30 Days Unchanged amLODIPine (amLODIPine 5 mg oral tablet) 1 tab(s) by mouth Once a day HTN (hypertension) Duration: 90 Days Unchanged benzonatate (Tessalon Perles 100 mg oral capsule) 1 cap by mouth Every 8 hours as needed for as needed for cough Acute cough Unchanged cholecalciferol (cholecalciferol 1250 mcg (50,000 intl units) oral capsule) 1 cap by mouth Once a month Vitamin D deficiency Duration: 30 Days Failed conservative OTC daily use Unchanged denosumab (Prolia 60 mg/ mL subcutaneous solution) 1 Milliliter Subcutaneous Every 6 months Osteoporosis Duration: 6 month(s) M81.0 Unchanged DME (Spacer, inhaler) See instructions Seasonal asthma Developmentally disabled use as directed Pt has developmental disorder and spacer required to insure proper use of inhaler. Unchanged evolocumab (Repatha SureClick 140 mg/ mL subcutaneous solution) 140 Milligram Subcutaneous Every other week Unchanged levETIRAcetam (levETIRAcetam 750 mg oral tablet) 2 tab(s) by mouth Two (2) times a day Unchanged losartan (losartan 100 mg oral tablet) 1 tab(s) by mouth Once a day HTN (hypertension) Duration: 90 Days Unchanged melatonin (melatonin 3 mg oral tablet) 2 tab(s) by mouth Daily at bedtime as needed for as needed for insomnia Unchanged rosuvastatin (rosuvastatin 10 mg oral tablet) 1 tab(s) by mouth Once a day Hyperlipidemia LDL goal <100 Duration: 90 Days What How Much When Why Comments Stop Taking divalproex sodium (divalproex sodium 500 mg oral tablet, extended release) 1 tab(s) by mouth Three (3) times a day Stop Taking hydroCHLOROthiazide (hydroCHLOROthiazide 25 mg oral tablet) 1 tab(s) by mouth Once a day HTN (hypertension) Duration: 90 Days Stop Taking loratadine (loratadine 10 mg oral tablet) 1 tab(s) by mouth Once a day Seasonal allergies Seasonal asthma Please take this list to your next doctor s visit. Bring all medications you take, including over the counter medications, herbals and other supplements with you to your doctor s visit. Patients and families are reminded to discard old lists and to update any records with all medication providers or retail pharmacies. Education Materials Seizure, Adult A seizure is a sudden burst of abnormal electrical activity in the brain. Seizures usually last from 30 seconds to 2 minutes. The abnormal activity temporarily interrupts normal brain function. A seizure can cause many different symptoms depending on where in the brain it starts. What are the causes? Common causes of this condition include: Fever or infection. Brain abnormality, injury, bleeding, or tumor. Low blood sugar. Metabolic disorders or other conditions that are passed from parent to child (are inherited). Reaction to a substance, such as a drug or a medicine, or suddenly stopping the use of a substance (withdrawal). Stroke. Developmental disorders such as autism or cerebral palsy. In some cases, the cause of this condition may not be known. Some people who have a seizure never have another one. Seizures usually do not cause brain damage or permanent problems unless they are prolonged. A person who has repeated seizures over time without a clear cause has a condition called epilepsy. What increases the risk? You are more likely to develop this condition if you have: A family history of epilepsy. Had a tonic-clonic seizure in the past. This is a type of seizure that involves whole-body contraction of muscles and a loss of consciousness. Autism, cerebral palsy, or other brain disorders. A history of head trauma, lack of oxygen at , or strokes. What are the signs or symptoms? There are many different types of seizures. The symptoms of a seizure vary depending on the type of seizure you have. Examples of symptoms during a seizure include: Uncontrollable shaking (convulsions). Stiffening of the body. Loss of consciousness. Head nodding. Staring. Not responding to sound or touch. Loss of bladder or bowel control. Some people have symptoms right before a seizure happens (aura) and right after a seizure happens (postictal). Symptoms before a seizure may include: Fear or anxiety. Nausea. Feeling like the room is spinning (vertigo). A feeling of having seen or heard something before (erika caballero). Odd tastes or smells. Changes in vision, such as seeing flashing lights or spots. Symptoms after a seizure may include: Confusion. Sleepiness. Headache. Weakness on one side of the body. How is this diagnosed? This condition may be diagnosed based on: A description of your symptoms. Video of your seizures can be helpful. Your medical history. A physical exam. You may also have tests, including: Blood tests. CT scan. MRI. Electroencephalogram (EEG). This test measures electrical activity in the brain. An EEG can predict whether seizures will return (recur). A spinal tap (also called a lumbar puncture). This is the removal and testing of fluid that surrounds the brain and spinal cord. How is this treated? Most seizures will stop on their own in under 5 minutes, and no treatment is needed. Seizures that last longer than 5 minutes will usually need treatment. Treatment can include: Medicines given through an IV. Avoiding known triggers, such as medicines that you take for another condition. Medicines to treat epilepsy (antiepileptics), if epilepsy caused your seizures. Surgery to stop seizures, if you have epilepsy that does not respond to medicines. Follow these instructions at home: Medicines Take gbjh-[id number] and prescription medicines only as told by your health care provider. Avoid any substances that may prevent your medicine from working properly, such as alcohol. Activity Do not drive, swim, or do any other activities that would be dangerous if you had another seizure. Wait until your health care provider says it is safe to do them. If you live in the [place] check with your local DMV (department of [employer]) to find out about local driving laws. Each state has specific rules about when you can legally return to driving. Get enough rest. Lack of sleep can make seizures more likely to occur. Educating others Teach friends and family what to do if you have a seizure. They should: Lay you on the ground to prevent a fall. Cushion your head and body. Loosen any tight clothing around your neck. Turn you on your side. If vomiting occurs, this helps keep your airway clear. Not hold you down. Holding you down will not stop the seizure. Not put anything into your mouth. Know whether or not you need emergency care. For example, they should get help right away if you have a seizure that lasts longer than 5 minutes or have several seizures in a row. Stay with you until you recover. General instructions Contact your health care provider each time you have a seizure. Avoid anything that has ever triggered a seizure for you. Keep a seizure diary. Record what you remember about each seizure, especially anything that might have triggered the seizure. Keep all follow-up visits as told by your health care provider. This is important. Contact a health care provider if: You have another seizure. You have seizures more often. Your seizure symptoms change. You continue to have seizures with treatment. You have symptoms of an infection or illness. This might increase your risk of having a seizure. Get help right away if: You have a seizure that: ? Lasts longer than 5 minutes. ? Is different than previous seizures. ? Leaves you unable to speak or use a part of your body. ? Makes it harder to breathe. You have: ? A seizure after a head injury. ? Multiple seizures in a row. ? Confusion or a severe headache right after a seizure. You do not wake up immediately after a seizure. You injure yourself during a seizure. These symptoms may represent a serious problem that is an emergency. Do not wait to see if the symptoms will go away. Get medical help right away. Call your local emergency services (911 in the [place] Do not drive yourself to the hospital. Summary Seizures are caused by abnormal electrical activity in the brain. The activity disrupts normal brain function and can cause various symptoms, such as convulsions, abnormal movements, or a change in consciousness. There are many causes of seizures, including illnesses, medicines, genetic conditions, head injuries, strokes, tumors, substance abuse, or substance withdrawal. Most seizures will stop on their own in under 5 minutes. Seizures that last longer than 5 minutes are a medical emergency and require immediate treatment. Many medicines are used to treat seizures. Take wsoc-dpc-oifidau and prescription medicines only as told by your health care provider. This information is not intended to replace advice given to you by your health care provider. Make sure you discuss any questions you have with your health care provider. Document Released: 03/29/2001 Document Revised: 06/19/2019 Document Reviewed: 06/19/2019 Elsevier Patient Education 2019 [employer] Additional Information VACCINATE! IT SAVES LIVES! Members of the community who have not yet received the COVID-19 vaccine and would like to receive it can visit one of [facility] vaccine clinics. There are many vaccine clinic locations within the [facility]. For locations and available times, please visit https://gettheshot.coronavirus.[place].gov/. It is important to note that some COVID mobile vaccine clinics are held outdoors and may be canceled in rainy or stormy conditions. To learn more about pediatric vaccinations (ages 5-11), we invite you to visit the [employer] webpage. https://www.Allozynes.org/pag es/0581-Prnym-Ovexommbdmj-Frequent yx-Zoinb-Prukrvlsl.html To learn more about the COVID-19 vaccine, we invite you to visit the CDC website for a list of frequently asked questions.https://www.cdc.gov/fabiola navirus/2019-ncov/vaccines/faq.htm l [email or web address] Patient Portal Access Instructions: Stay connected with your healthcare team and access your personal medical information anytime with the [email or web address] Patient Portal. Please follow the directions below to create your [email or web address] account: 1.Access the email account you provided upon registration to the hospital/physician office.2.Look for an invitation email from [facility].3.Open the email and access the invitation link: Accept Invitation to [employer].4.Fill in the required spicer to create your account. To access your account, visit [employer]. Click the blue button labeled "Access Patient Portal" and then log in with the username and password that you created in the steps above. You will be able to view your test results, lab results, a summary of your visits, upcoming appointments and more. There is also a convenient messaging option where you can send secure messages to your provider. In addition, you will have the ability to download any documents or summaries to your computer and/or send the information securely to a physician. Remember that your healthcare information is confidential, so carefully consider who you will allow to register on the [facility] for access to your information. You can also access the [facility] Patient Portal on the [place] [facility] amaury. Simply click on "Patient Portal" and then log into your account. If you would like to receive a full copy of your medical records, please contact the [facility] Medical Records Department by calling [phone], Saturday through Saturday between 8 a.m. and 4:30 p.m. HOW TO SAFELY DISPOSE OF PRESCRIPTION MEDICATIONS Please use one of the following methods to safely dispose of your unused medications. 1.Use a drug disposal kit: the drug disposal pouch allows you to safely discard your old and unused drugs. Ask your nurse to give you one when you are discharged.2.Visit a local take-back location: Many local pharmacies and police departments have programs that collect old and unwanted prescription drugs. Call your local pharmacy or go to http://Bufys.Setgo/5Q5Qb2h to find one close to you.3.Make use of household items: Use cat litter or old coffee grounds to dispose medications if other options are not available. Mix your drugs with these household products, seal them in an airtight container and throw it into the garbage. Call [facility]: [phone] to be sure your drugs can be disposed of in this way. Some medicines may require a different approach.4.Never flush your medications down the toilet. IF YOU HAVE BEEN PRESCRIBED AN OPIOID FOR PAIN If you have been prescribed an opioid (such as hydrocodone, oxycodone or morphine), it is critical to understand the possible side effects and risks of opioid pain medications. Even when taken as directed, opioids can have several side effects including: Tolerance, meaning you might need to take more of a medication for the same pain relief. Nausea, vomiting and/or constipation. Sleepiness, dizziness, dry mouth, confusion, depression or itching. Physical dependence, meaning you have withdrawal symptoms when a medication is stopped, can develop within a few days. KNOW YOUR RESPONSIBILITIES It is important to know exactly how much and how often to take the opioid pain medications you are prescribed. Never take opioids in higher amounts or more often than prescribed. Do not combine opioids with alcohol or other drugs that cause drowsiness, such as benzodiazepines, also known as benzos, including diazepam and alprazolam, muscle relaxants or sleep aids. Never sell or share prescription opioids. This is illegal. Store opioids in a secure place and out of reach of others (including children, family, friends and visitors). The last page of this document has been signed and retained as a CHART COPY. Signatures Patient Education Materials Seizure, Adult Medication Leaflets My discharge plan and instructions have been reviewed and explained to me and I,NAI HERNANDEZ understand my current condition and have read and understand these discharge instructions. I have received a written copy of the plan/instructions. If I have questions, I am aware that I should contact my doctor. 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 Breakthrough seizure 2. Acute encephalopathy 3. Hyponatremia 4. Developmental delay 5. Asthma without exacerbation 6. Other history of HTN, HLD, obesity Additional Orders: Ordered: Discharge,08/13/23 10:00:00 EDT, Discharged to: [facility] Hospital Course 67-year-old female with past medical history of epilepsy, developmental delay, hypertension, hyperlipidemia and obesity. Patient presented to [facility] as a transfer from [facility] emergency department on 08/04/2023 with concerns for seizure and confusion. Lab work on admission showed leukocytosis of 15.8, hemoglobin was 11.1, glucose 134, sodium 130, creatinine 1.14. Ammonia level was 21. Troponin negative. Keppra level was elevated at 80.8. Valproic acid level 84. UA showed small leukocyte Estrace, negative for nitrates, 3-[address] of head showed no acute infarct or hemorrhage. Age appropriate involutional changes. CTA of head and neck showed no LVO or significant stenosis. A 2.2 cm right thyroid nodule was seen. Patient was afebrile, tachycardic at 117, blood pressure 188/91, on room air. The patient's home Keppra, and Depakote were resumed. Vimpat twice daily was added. An EEG was completed on 08/05/2023 showing abnormal awake and drowsy EEG due to mild to moderate nonspecific encephalopathy and increased risk for seizure. A 2-hour EEG was completed on 08/07/2023 which showed mild to moderate nonspecific encephalopathy, ongoing cortical irritability of the left hemisphere as well as a single focal seizure. The patient's Depakote was increased to 750 mg 3 times daily. An MRI of the brain was attempted with medication and patient was unable to tolerate procedure. Patient underwent MRI of the brain with anesthesia 08/09/23 showing mild volume loss and small vessel ischemic disease. Neurology recommending patient continue Keppra 1500mg BID, Depakote 750 mg TID, and Vimpat 100mg BID at discharge. No further seizure activity was noted on this regimen. Patient's mentation much improved prior to discharge. She will follow up with [facility] 2 weeks. Infectious workup including chest x-ray and UA not concerning for infection. Blood culture showed no growth. Oxygen remained stable on room air. Speech therapy followed for dysphagia, recommended soft bite size, thin liquid diet. PT/OT recommending SNF, the patient was actually stable for discharge to alter care of mariama Patterson on 08/12/2023. The patient's TEREZA Diggs called in requesting a change of facility. The patient stayed overnight in the hospital due to facility change. No acute events noted overnight. Vital signs are hemodynamically stable. Mentation improving each day. Patient was alert to self, location and family. Patient is stable for discharge to [facility] SNF. Sister updated on plan. Case d/w Dr. Park. Allergies NKA Consults Consult to Anesthesia - Ordered -- 08/06/23 9:44:00 EDT, not specified, eval for MRI under sedation Consult to Physician - Ordered -- 08/05/23 2:32:00 EDT, GUTIERREZ PENA MD, Routine, seizures Imaging Results and Diagnostics MRI Brain w/o Contrast Result Date: August 09, 2023 Verified By: SAI SPEARS MD CLINICAL STATEMENT: IMPRESSION: Mild volume loss and small vessel ischemic disease. XR Chest 1 View Result Date: August 06, 2023 Verified By: SHARON MOORE MD CLINICAL STATEMENT: IMPRESSION: - Improved aeration of the right lung compared to the prior exam. - Left perihilar densities are similar compared to prior with a differentialincluding hypoventilation, mild vascular congestion, or abronchitis/bronchiolitis. Physical Exam Vitals and Measurements T: 36.8 C (Oral) TMIN: 36.5 C (Oral) TMAX: 36.8 C (Oral) HR: 80 RR: 16 BP: 129/76 SpO2: 97% Weight Dosing Weight: 76.6 kg (08/05/23) General: No acute distress. Alert Skin: No rash. Warm, Dry, Intact HEENT: Head is normocephalic and atraumatic. No lesions. Pupils equal in size. Extraocular movements within normal limits. Nose: No septal deviation. Mouth: Oropharynx mucosa is without lesion. Neck: Supple. No lymphadenopathy, thyromegaly noted. Lungs: Bilaterally clear/diminished breath sounds with no crepitation or wheeze. Unlabored on room air Cardiovascular: Heart is regular rhythm, S1S2, No extra-audible heart tones Abdomen: Abdomen is soft, nontender. Bowel sounds positive all four quadrants. Extremities: No clubbing, cyanosis or edema. Peripheral and distal pulses palpable. No calf tenderness. Adequate peripheral circulation. Neurological: The patient is awake, following commands, moving all extremities. Code Status Code Status - Ordered -- 08/04/23 23:46:00 EDT, Full Code, Constant Order Admission Date 08/04/23 Discharge Date 08/13/23 Medications New Prescription [id number] Milligram by mouth every six (6) hours WHILE AWAKE as needed Pain, scale 1-10. lacosamide (Vimpat 100 mg oral tablet)1 tab(s) by mouth two (2) times a day for 30 Days. Refills: 0. valproic acid (valproic acid 250 mg oral capsule)3 cap by mouth three (3) times a day for 30 Days. Refills: 0. Unchanged albuterol (albuterol MDI (90 mcg/inh) CFC free inhalation aerosol)2 puff(s) by inhalation every 6 hours for 30 Days. Refills: 1. amLODIPine (amLODIPine 5 mg oral tablet)1 tab(s) by mouth once a day for 90 Days. Refills: 1. benzonatate (Tessalon Perles 100 mg oral capsule)1 cap by mouth every 8 hours as needed as needed for cough. Refills: 0. cholecalciferol (cholecalciferol 1250 mcg (50,000 intl units) oral capsule)1 cap by mouth once a month for 30 Days. Failed conservative OTC daily use. Refills: 4. denosumab (Prolia 60 mg/mL subcutaneous solution)1 Milliliter Subcutaneous every 6 months for 6 month(s). M81.0. Refills: 1. DME (Spacer, inhaler)use as directed Pt has developmental disorder and spacer required to insure proper use of inhaler.. Refills: 0. evolocumab (Repatha SureClick 140 mg/mL subcutaneous solution)140 Milligram Subcutaneous every other week. Refills: 12. levETIRAcetam (levETIRAcetam 750 mg oral tablet)2 tab(s) by mouth two (2) times a day. losartan (losartan 100 mg oral tablet)1 tab(s) by mouth once a day for 90 Days. Refills: 1. melatonin (melatonin 3 mg oral tablet)2 tab(s) by mouth daily at bedtime as needed as needed for insomnia. rosuvastatin (rosuvastatin 10 mg oral tablet)1 tab(s) by mouth once a day for 90 Days. Refills: 1. Discontinued divalproex sodium (divalproex sodium 500 mg oral tablet, extended release)1 tab(s) by mouth three (3) times a day. hydroCHLOROthiazide (hydroCHLOROthiazide 25 mg oral tablet)1 tab(s) by mouth once a day for 90 Days. Refills: 1. loratadine (loratadine 10 mg oral tablet)1 tab(s) by mouth once a day. Refills: 1. [facility] When Within 1-2 days Why: follow up wtihin 2 weeks Where: [address] [place] [address]- Business (1) Follow Up with FISH JORDAN APRN, CNP When Within 1-2 days Why: Please call the office to schedule a follow-up appointment Where: [address] [facility] [place] [address]- Follow Up Appointments Transfer of Care OT - Ordered -- Reason for therapy: weakness, 08/12/23 10:51:00 EDT Transfer of Care PT - Ordered -- Reason for therapy: weakness, 08/12/23 10:51:00 EDT Follow Up Labs/Studies Discharge Labs Transfer of Care Labwork - Ordered -- Valporic Acid level, monitor while on Valporic acid, follow-up within: 5-7 days, Results Notify to: FISH JORDAN APRN, CNP, 08/12/23 10:51:00 EDT Discharge Studies No Follow-up Studies Discharge Diet Transfer of Care Diet - Ordered -- Type of Diet: Soft and Bite [id number], Thin (Thinned)-IDDSI-0, 08/12/23 10:51:00 EDT Discharge Activity Transfer of Care Activity - Ordered -- As instructed by therapy, 08/12/23 10:51:00 EDT Condition on Discharge Stable Discharge Disposition SNF Information Provided To Patient Sister Time Spent 32 minutes Digitally Signed by ADEBAYO MARTINEZ on 08/13/2023 10:03 AM Digitally Signed by LENNY PARK DO on 08/13/2023 10:17 AM [facility] 08-13-2023 Hospital Discharge instructions Patient Education 08/13/2023 07:45:35 Seizure, Adult Seizure, Adult A seizure is a sudden burst of abnormal electrical activity in the brain. Seizures usually last from 30 seconds to 2 minutes. The abnormal activity temporarily interrupts normal brain function. A seizure can cause many different symptoms depending on where in the brain it starts. What are the causes? Common causes of this condition include: Fever or infection. Brain abnormality, injury, bleeding, or tumor. Low blood sugar. Metabolic disorders or other conditions that are passed from parent to child (are inherited). Reaction to a substance, such as a drug or a medicine, or suddenly stopping the use of a substance (withdrawal). Stroke. Developmental disorders such as autism or cerebral palsy. In some cases, the cause of this condition may not be known. Some people who have a seizure never have another one. Seizures usually do not cause brain damage or permanent problems unless they are prolonged. A person who has repeated seizures over time without a clear cause has a condition called epilepsy. What increases the risk? You are more likely to develop this condition if you have: A family history of epilepsy. Had a tonic-clonic seizure in the past. This is a type of seizure that involves whole-body contraction of muscles and a loss of consciousness. Autism, cerebral palsy, or other brain disorders. A history of head trauma, lack of oxygen at , or strokes. What are the signs or symptoms? There are many different types of seizures. The symptoms of a seizure vary depending on the type of seizure you have. Examples of symptoms during a seizure include: Uncontrollable shaking (convulsions). Stiffening of the body. Loss of consciousness. Head nodding. Staring. Not responding to sound or touch. Loss of bladder or bowel control. Some people have symptoms right before a seizure happens (aura) and right after a seizure happens (postictal). Symptoms before a seizure may include: Fear or anxiety. Nausea. Feeling like the room is spinning (vertigo). A feeling of having seen or heard something before (d j vu). Odd tastes or smells. Changes in vision, such as seeing flashing lights or spots. Symptoms after a seizure may include: Confusion. Sleepiness. Headache. Weakness on one side of the body. How is this diagnosed? This condition may be diagnosed based on: A description of your symptoms. Video of your seizures can be helpful. Your medical history. A physical exam. You may also have tests, including: Blood tests. CT scan. MRI. Electroencephalogram (EEG). This test measures electrical activity in the brain. An EEG can predict whether seizures will return (recur). A spinal tap (also called a lumbar puncture). This is the removal and testing of fluid that surrounds the brain and spinal cord. How is this treated? Most seizures will stop on their own in under 5 minutes, and no treatment is needed. Seizures that last longer than 5 minutes will usually need treatment. Treatment can include: Medicines given through an IV. Avoiding known triggers, such as medicines that you take for another condition. Medicines to treat epilepsy (antiepileptics), if epilepsy caused your seizures. Surgery to stop seizures, if you have epilepsy that does not respond to medicines. Follow these instructions at home: Medicines Take nczn-qad-uqvboal and prescription medicines only as told by your health care provider. Avoid any substances that may prevent your medicine from working properly, such as alcohol. Activity Do not drive, swim, or do any other activities that would be dangerous if you had another seizure. Wait until your health care provider says it is safe to do them. If you live in the [place] check with your local DMV (department of [employer]) to find out about local driving laws. Each state has specific rules about when you can legally return to driving. Get enough rest. Lack of sleep can make seizures more likely to occur. Educating others Teach friends and family what to do if you have a seizure. They should: Lay you on the ground to prevent a fall. Cushion your head and body. Loosen any tight clothing around your neck. Turn you on your side. If vomiting occurs, this helps keep your airway clear. Not hold you down. Holding you down will not stop the seizure. Not put anything into your mouth. Know whether or not you need emergency care. For example, they should get help right away if you have a seizure that lasts longer than 5 minutes or have several seizures in a row. Stay with you until you recover. General instructions Contact your health care provider each time you have a seizure. Avoid anything that has ever triggered a seizure for you. Keep a seizure diary. Record what you remember about each seizure, especially anything that might have triggered the seizure. Keep all follow-up visits as told by your health care provider. This is important. Contact a health care provider if: You have another seizure. You have seizures more often. Your seizure symptoms change. You continue to have seizures with treatment. You have symptoms of an infection or illness. This might increase your risk of having a seizure. Get help right away if: You have a seizure that: ?Lasts longer than 5 minutes. ?Is different than previous seizures. ?Leaves you unable to speak or use a part of your body. ?Makes it harder to breathe. You have: ?A seizure after a head injury. ?Multiple seizures in a row. ?Confusion or a severe headache right after a seizure. You do not wake up immediately after a seizure. You injure yourself during a seizure. These symptoms may represent a serious problem that is an emergency. Do not wait to see if the symptoms will go away. Get medical help right away. Call your local emergency services (911 in the [place] Do not drive yourself to the hospital. Summary Seizures are caused by abnormal electrical activity in the brain. The activity disrupts normal brain function and can cause various symptoms, such as convulsions, abnormal movements, or a change in consciousness. There are many causes of seizures, including illnesses, medicines, genetic conditions, head injuries, strokes, tumors, substance abuse, or substance withdrawal. Most seizures will stop on their own in under 5 minutes. Seizures that last longer than 5 minutes are a medical emergency and require immediate treatment. Many medicines are used to treat seizures. Take xjpz-kmv-evkgfhj and prescription medicines only as told by your health care provider. This information is not intended to replace advice given to you by your health care provider. Make sure you discuss any questions you have with your health care provider. Document Released: 03/29/2001 Document Revised: 06/19/2019 Document Reviewed: 06/19/2019 [employer] Patient Education 2020 [employer] (previously [employer] Follow Up Care 08/04/2023 16:56:26 With:[facility] Address:Unknown When:1-2 days With:[facility] Address: [address] [place] [address]- Business (1) When:1-2 days Comments:follow up wtihin 2 weeks With:FISH JORDAN TRAVEL COORDINATOR - [employer] Address: [address] [facility] [place] [address]- When:1-2 days Comments:Please call the office to schedule a follow-up appointment [facility] 08-12-2023 Discharge summary Date of Service 08/12/23 Discharge Diagnosis 1. Breakthrough seizure 2. Acute encephalopathy 3. Hyponatremia 4. Developmental delay 5. Asthma without exacerbation 6. Other history of HTN, HLD, obesity Additional Orders: Ordered: Transfer of Care Activity,As instructed by therapy, 08/12/23 10:51:00 EDT Ordered: Transfer of Care Admission Level of Care,Level of Care SNF, 08/12/23 10:52:50 EDT Ordered: Transfer of Care Code Status,Full Code, Constant Order Ordered: Transfer of Care Communication Order,Expect less than 30 day stay., 08/12/23 10:52:50 EDT Ordered: Transfer of Care Diet,Type of Diet: Soft and Bite [id number], Thin (Thinned)-IDDSI-0, 08/12/23 10:51:00 EDT Ordered: Transfer of Care Labwork,Valporic Acid level, monitor while on Valporic acid, follow-up within: 5-7 days, Results Notify to: FISH JORDAN APRN - [facility] [facility], 08/12/23 10:51:00 EDT Ordered: Transfer of Care OT,Reason for therapy: weakness, 08/12/23 10:51:00 EDT Ordered: Transfer of Care Orders Electronically Signed By,08/12/23 10:51:00 EDT, MANDA BENSON MD Ordered: Transfer of Care PT,Reason for therapy: weakness, 08/12/23 10:51:00 EDT Ordered: Transfer of Care Prognosis,Fair, Patient Aware: Yes Ordered: Transfer of Care Rehab Potential,Rehab potential fair, 08/12/23 10:52:50 EDT Ordered: acetaminophen,Dose : 650 mg = 2 tab(s), Oral, q6hWA, PRN Pain, scale 1-10, 0 Refill(s) Ordered: valproic acid 250 mg oral capsule,Dose : 750 mg = 3 cap(s), Oral, TID, # 270 cap(s), 0 Refill(s), other reason (Rx) End of Orders Hospital Course 67-year-old female with past medical history of epilepsy, developmental delay, hypertension, hyperlipidemia and obesity. Patient presented to [facility] as a transfer from [facility] emergency department on 08/04/2023 with concerns for seizure and confusion. Lab work on admission showed leukocytosis of 15.8, hemoglobin was 11.1, glucose 134, sodium 130, creatinine 1.14. Ammonia level was 21. Troponin negative. Keppra level was elevated at 80.8. Valproic acid level 84. UA showed small leukocyte Estrace, negative for nitrates, 3-[address] of head showed no acute infarct or hemorrhage. Age appropriate involutional changes. CTA of head and neck showed no LVO or significant stenosis. A 2.2 cm right thyroid nodule was seen. Patient was afebrile, tachycardic at 117, blood pressure 188/91, on room air. The patient's home Keppra, and Depakote were resumed. Vimpat twice daily was added. An EEG was completed on 08/05/2023 showing abnormal awake and drowsy EEG due to mild to moderate nonspecific encephalopathy and increased risk for seizure. A 2-hour EEG was completed on 08/07/2023 which showed mild to moderate nonspecific encephalopathy, ongoing cortical irritability of the left hemisphere as well as a single focal seizure. The patient's Depakote was increased to 750 mg 3 times daily. An MRI of the brain was attempted with medication and patient was unable to tolerate procedure. Patient underwent MRI of the brain with anesthesia 08/09/23 showing mild volume loss and small vessel ischemic disease. Neurology recommending patient continue Keppra 1500mg BID, Depakote 750 mg TID, and Vimpat 100mg BID at discharge. No further seizure activity was noted on this regimen. Patient's mentation much improved prior to discharge. She [facility]. Infectious workup including chest x-ray and UA not concerning for infection. Blood culture showed no growth. Oxygen remained stable on room air. Speech therapy followed for dysphagia, recommended soft bite size, thin liquid diet. PT/OT recommending SNF, the patient is stable for discharge to [facility]. for TEREZA Diggs over phone. Case d/w Dr. Benson. Allergies NKA Consults Consult to Anesthesia - Ordered -- 08/06/23 9:44:00 EDT, not specified, eval for MRI under sedation Consult to Physician - Ordered -- 08/05/23 2:32:00 EDT, GUTIERREZ PENA MD, Routine, seizures Imaging Results and Diagnostics MRI Brain w/o Contrast Result Date: August 09, 2023 Verified By: SAI SPEARS MD CLINICAL STATEMENT: IMPRESSION: Mild volume loss and small vessel ischemic disease. XR Chest 1 View Result Date: August 06, 2023 Verified By: SHARON MOORE MD CLINICAL STATEMENT: IMPRESSION: - Improved aeration of the right lung compared to the prior exam. - Left perihilar densities are similar compared to prior with a differentialincluding hypoventilation, mild vascular congestion, or abronchitis/bronchiolitis. Physical Exam Vitals and Measurements T: 36.8 C (Oral) TMIN: 36.8 C (Oral) TMAX: 36.9 C (Oral) HR: 78 HR: 79 RR: 18 RR: 16 BP: 130/75 SpO2: 95% SpO2: 96% Weight Dosing Weight: 76.6 kg (08/05/23) General: No acute distress. Alert Skin: No rash. Warm, Dry, Intact HEENT: Head is normocephalic and atraumatic. No lesions. Pupils equal in size. Extraocular movements within normal limits. Nose: No septal deviation. Mouth: Oropharynx mucosa is without lesion. Neck: Supple. No lymphadenopathy, thyromegaly noted. Lungs: Bilaterally clear/diminished breath sounds with no crepitation or wheeze. Unlabored on room air Cardiovascular: Heart is regular rhythm, S1S2, No extra-audible heart tones Abdomen: Abdomen is soft, nontender. Bowel sounds positive all four quadrants. Extremities: No clubbing, cyanosis or edema. Peripheral and distal pulses palpable. No calf tenderness. Adequate peripheral circulation. Neurological: The patient is awake, following commands, moving all extremities. Code Status Code Status - Ordered -- 08/04/23 23:46:00 EDT, Full Code, Constant Order Admission Date 08/04/23 Discharge Date 08/12/23 Medications New Prescription [id number] Milligram by mouth every six (6) hours WHILE AWAKE as needed Pain, scale 1-10. lacosamide (Vimpat 100 mg oral tablet)1 tab(s) by mouth two (2) times a day for 30 Days. Refills: 0. valproic acid (valproic acid 250 mg oral capsule)3 cap by mouth three (3) times a day for 30 Days. Refills: 0. Unchanged albuterol (albuterol MDI (90 mcg/inh) CFC free inhalation aerosol)2 puff(s) by inhalation every 6 hours for 30 Days. Refills: 1. amLODIPine (amLODIPine 5 mg oral tablet)1 tab(s) by mouth once a day for 90 Days. Refills: 1. benzonatate (Tessalon Perles 100 mg oral capsule)1 cap by mouth every 8 hours as needed as needed for cough. Refills: 0. cholecalciferol (cholecalciferol 1250 mcg (50,000 intl units) oral capsule)1 cap by mouth once a month for 30 Days. Failed conservative OTC daily use. Refills: 4. denosumab (Prolia 60 mg/mL subcutaneous solution)1 Milliliter Subcutaneous every 6 months for 6 month(s). M81.0. Refills: 1. DME (Spacer, inhaler)use as directed Pt has developmental disorder and spacer required to insure proper use of inhaler.. Refills: 0. evolocumab (Repatha SureClick 140 mg/mL subcutaneous solution)140 Milligram Subcutaneous every other week. Refills: 12. levETIRAcetam (levETIRAcetam 750 mg oral tablet)2 tab(s) by mouth two (2) times a day. losartan (losartan 100 mg oral tablet)1 tab(s) by mouth once a day for 90 Days. Refills: 1. melatonin (melatonin 3 mg oral tablet)2 tab(s) by mouth daily at bedtime as needed as needed for insomnia. rosuvastatin (rosuvastatin 10 mg oral tablet)1 tab(s) by mouth once a day for 90 Days. Refills: 1. Discontinued divalproex sodium (divalproex sodium 500 mg oral tablet, extended release)1 tab(s) by mouth three (3) times a day. hydroCHLOROthiazide (hydroCHLOROthiazide 25 mg oral tablet)1 tab(s) by mouth once a day for 90 Days. Refills: 1. loratadine (loratadine 10 mg oral tablet)1 tab(s) by mouth once a day. Refills: 1. Follow Up Follow Up with [facility] When Within 1-2 days Why: follow up wtihin 2 weeks Where: [address] [place] [address]- Business (1) Follow Up with FISH JORDAN APRN - [facility] When Within 1-2 days Why: Please call the office to schedule a follow-up appointment Where: [address] [facility] [place] [address]- Follow Up Appointments Transfer of Care OT - Ordered -- Reason for therapy: weakness, 08/12/23 10:51:00 EDT Transfer of Care PT - Ordered -- Reason for therapy: weakness, 08/12/23 10:51:00 EDT Follow Up Labs/Studies Discharge Labs Transfer of Care Labwork - Ordered -- Valporic Acid level, monitor while on Valporic acid, follow-up within: 5-7 days, Results Notify to: FISH JORDAN APRN - [facility], 08/12/23 10:51:00 EDT Discharge Studies No Follow-up Studies Discharge Diet Transfer of Care Diet - Ordered -- Type of Diet: Soft and Bite [id number], Thin (Thinned)-IDDSI-0, 08/12/23 10:51:00 EDT Discharge Activity Transfer of Care Activity - Ordered -- As instructed by therapy, 08/12/23 10:51:00 EDT Condition on Discharge Stable Discharge Disposition SNF Information Provided To Patient VM left for TEREZA Diggs Time Spent 32 minutes Digitally Signed by ADEBAYO MARTINEZ on 08/12/2023 10:57 AM Digitally Signed by MANDA BENSON MD [facility] 08-11-2023 Note . MICRO - Microbiology PROCEDURE: Blood Culture (bacterial) [*1] SOURCE: Blood BODY SITE: COLLECTED DATE/TIME: 08/06/2023 11:06 EDT RECEIVED DATE/TIME: 08/06/2023 11:18 EDT START DATE/TIME: 08/06/2023 11:18 EDT FREE TEXT SOURCE: FINAL REPORTS Final Report [] Verified Date/Time/Personnel: 08/11/2023 11:59 EDT Blood Culture: No Growth at 5 days. PRELIMINARY REPORTS Preliminary Report [] Verified Date/Time/Personnel: 08/06/2023 11:59 EDT Culture has been received in lab and is no growth to date. Routine cultures are held for 5 days. Performing Locations *1: This test was performed at: [facility], [address] [place] [address], [id number] , Formerly [facility], [facility] ([place]) 08-11-2023 Note . MICRO - Microbiology PROCEDURE: Blood Culture (bacterial) [*1] SOURCE: Blood BODY SITE: COLLECTED DATE/TIME: 08/06/2023 11:06 EDT RECEIVED DATE/TIME: 08/06/2023 11:18 EDT START DATE/TIME: 08/06/2023 11:18 EDT FREE TEXT SOURCE: FINAL REPORTS Final Report [] Verified Date/Time/Personnel: 08/11/2023 11:59 EDT Blood Culture: No Growth at 5 days. PRELIMINARY REPORTS Preliminary Report [] Verified Date/Time/Personnel: 08/06/2023 11:59 EDT Culture has been received in lab and is no growth to date. Routine cultures are held for 5 days. Performing Locations *1: This test was performed at: [facility], [address] [place] [address], [facility] , [facility], [facility] ([place]) 08-11-2023 Note Date of Service 08/11/23 Chief Complaint mentation improving Subjective 67-year-old female with past medical history of epilepsy, developmental delay, hypertension, hyperlipidemia and obesity. Patient presented to [facility] as a transfer from [facility] emergency department on 08/04/2023 with concerns for seizure and confusion. Lab work on admission showed leukocytosis of 15.8, hemoglobin was 11.1, glucose 134, sodium 130, creatinine 1.14. Ammonia level was 21. Troponin negative. Keppra level was elevated at 80.8. Valproic acid level 84. UA showed small leukocyte Estrace, negative for nitrates, 3-[address] of head showed no acute infarct or hemorrhage. Age appropriate involutional changes. CTA of head and neck showed no LVO or significant stenosis. A 2.2 cm right thyroid nodule was seen. Patient was afebrile, tachycardic at 117, blood pressure 188/91, on room air. The patient's home Keppra, and Depakote were resumed. Vimpat twice daily was added. An EEG was completed on 08/05/2023 showing abnormal awake and drowsy EEG due to mild to moderate nonspecific encephalopathy and increased risk for seizure. A 2-hour EEG was completed on 08/07/2023 which showed mild to moderate nonspecific encephalopathy, ongoing cortical irritability of the left hemisphere as well as a single focal seizure. The patient's Depakote was increased to 750 mg 3 times daily. An MRI of the brain was attempted with medication and patient was unable to tolerate procedure. Patient underwent MRI of the brain with anesthesia 08/09/23 showing mild volume loss and small vessel ischemic disease. Infectious workup including chest x-ray and UA not concerning for infection. Blood culture showed no growth. Oxygen stable on room air. Speech therapy is following for dysphagia. PT/[facility] SN[facility] Patient seen today. Mentation improving. She was responding with very short sentences. She denied complaints of pain. She did not eat much breakfast but states she would try lunch. No CP, SOB or abdominal pain. Objective Vitals and Measurements T: 37.3 C (Oral) TMIN: 36.6 C (Oral) TMAX: 37.3 C (Oral) HR: 88 RR: 18 BP: 100/60 SpO2: 93% Intake and Output 7AM Yesterday to 7AM Today Intake and Output (Last 24 hours) Intake Oral Intake 455.00 Output Urine Voided 100.00 Urinary Catheter Output: 300.00 Stool Count 0.00 Urine Count 1.00 Total Summary Total Intake 455.00 Total Output 400.00 Fluid Balance 55.00 Physical Exam General: No acute distress. Alert Skin: No rash. Warm, Dry, Intact HEENT: Head is normocephalic and atraumatic. No lesions. Pupils equal in size. Extraocular movements within normal limits. Nose: No septal deviation. Mouth: Oropharynx mucosa is without lesion. Neck: Supple. No lymphadenopathy, thyromegaly noted. Lungs: Bilaterally clear/diminished breath sounds with no crepitation or wheeze. Unlabored on room air Cardiovascular: Heart is regular rhythm, S1S2, No extra-audible heart tones Abdomen: Abdomen is soft, nontender. Bowel sounds positive all four quadrants. Extremities: No clubbing, cyanosis or edema. Peripheral and distal pulses palpable. No calf tenderness. Adequate peripheral circulation. Neurological: The patient is awake, following commands, moving all extremities. Weight Dosing Weight: 76.6 kg (08/05/23) Medications Medications (15) Active Scheduled: (8) albuterol 0.083% Soln UD (2.5mg/3 mL) 2.5 mg 3 mL, Inhalation, QIDRT amLODIPine 5 mg tablet 5 mg 1 tab(s), Oral, qDay enoxaparin 40 mg/ 0.4mL syringe 40 mg 0.4 mL, Subcutaneous, qDay lacosamide 100 mg 10 mL, IV Piggyback, q12h levETIRAcetam 1,500 mg 15 mL, IV Piggyback, q12h losartan 100 mg tablet 100 mg 1 tab(s), Oral, qDay rosuvastatin 5 mg tablet 10 mg 2 tab(s), Oral, qDay valproate sodium 750 mg 7.5 mL, IV Piggyback, TID Continuous: (0) PRN: (7) acetaminophen 325 mg Tablet 650 mg 2 tab(s), Oral, q6hWA dextrose 50% Solution Disp syringe 50 mL 12.5 gram(s) 25 mL, IV Push, AsDirected hydralazine 20 mg/mL (1mL) vial 10 mg 0.5 mL, IV Push, QID LORAZEPam 2 mg/mL 1 mL vial 2 mg 1 mL, IV Push, q4h melatonin 3 mg tablet 3 mg 1 tab(s), Oral, qHS melatonin 3 mg tablet 3 mg 1 tab(s), Oral, qHS ondansetron 2 mg/ 1 mL 2 mL INJ 4 mg 2 mL, IV Push, q4h Lab Results 08/10 05:13 WBC: 7.7 Hgb: 11.4 L Hct: 33.5 L Platelet: 293 Neutrophil %: 48.4 L Glucose Level: 72 L Sodium Level: 142 Potassium Level: 4.8 BUN: 29.0 H Creatinine Lvl (s): 0.75 08/09 06:43 WBC: 6.9 Hgb: 10.8 L Hct: 32.5 L Platelet: 307 Neutrophil %: 52.9 Glucose Level: 76 L Sodium Level: 141 Potassium Level: 4.4 BUN: 31.0 H Creatinine Lvl (s): 0.80 EKG No qualifying data available. Assessment/Plan 1. Breakthrough seizure 2. Acute encephalopathy 3. Hyponatremia 4. Developmental delay 5. Asthma without exacerbation 6. Other history of HTN, HLD, obesity Plan Mentation improved. 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 Status post 2-hour EEG 08/07/2023 showing mild to moderate nonspecific encephalopathy, ongoing cortical irritability of the left hemisphere as well as a single focal seizure. The patient's Depakote was increased to 750 mg 3 times daily. Patient also continues on Keppra 1500 mg twice daily and Vimpat 100 mg twice daily. s/p MRI of the brain with anesthesia 08/09/23 showing mild volume loss and small vessel ischemic disease. No further testing planning for neurologic standpoint Speech therapy following for dysphagia, recommended modified diet Hyponatremia has resolved Infectious workup thus far has been benign. Chest x-ray showed no evidence of pneumonia. UA was not concerning for infection. Blood cultures show no growth to date. Oxygen is stable on room air. Asthma is not acutely exacerbated, continue breathing treatments. Continue remainder of home medications for chronic conditions Lovenox for DVT prophylaxis PT/OT recommending SNF, [facility] Plan discussed with patient. Jorge STARKS updated on plan of care Case discussed with Dr. Benson Digitally Signed by ADEBAYO MARTINEZ on 08/11/2023 11:37 AM [facility] 08-11-2023 Respiratory therapy Hospital Progress note Respiratory Therapy Evaluation Entered On: 08/11/2023 10:43 EDT Performed On: 08/11/2023 10:43 EDT by Joanie Garcia RT Respiratory Therapy Evaluation Chest X-Ray : Clear/not ordered Respiratory Therapy Evaluation Score : 5 Joanie Garcia RT - 08/11/2023 10:44 EDT RT Assessment [Frequency/Schedule] : therapuetic interchange Joanie Garcia RT - 08/11/2023 10:46 EDT Pulmonary Status : Non-smoker Surgical Status : No surgeries Breath Sounds (RT) : Decreased bilaterally Respiratory Pattern (RT) : Regular RR=12-20 Cough (RT) : Weak, non-productive Level of Activity : Ambulatory with assistance Mental Status : Alert, oriented Joanie Garcia RT - 08/11/2023 10:43 EDT Digitally Signed by Joanie Garcia RT on 08/11/2023 10:44 AM Digitally Signed by Joanie Garcia RT on 08/11/2023 10:46 AM [facility] 08-10-2023 Note Date of Service 08/10/2023 Chief Complaint AMS Subjective 67-year-old female with past medical history of epilepsy, developmental delay, hypertension, hyperlipidemia and obesity. Patient presented to [facility] as a transfer from [facility] emergency department on 08/04/2023 with concerns for seizure and confusion. Lab work on admission showed leukocytosis of 15.8, hemoglobin was 11.1, glucose 134, sodium 130, creatinine 1.14. Ammonia level was 21. Troponin negative. Keppra level was elevated at 80.8. Valproic acid level 84. UA showed small leukocyte Estrace, negative for nitrates, 3-[address] of head showed no acute infarct or hemorrhage. Age appropriate involutional changes. CTA of head and neck showed no LVO or significant stenosis. A 2.2 cm right thyroid nodule was seen. Patient was afebrile, tachycardic at 117, blood pressure 188/91, on room air. The patient's home Keppra, and Depakote were resumed. Vimpat twice daily was added. An EEG was completed on 08/05/2023 showing abnormal awake and drowsy EEG due to mild to moderate nonspecific encephalopathy and increased risk for seizure. A 2-hour EEG was completed on 08/07/2023 which showed mild to moderate nonspecific encephalopathy, ongoing cortical irritability of the left hemisphere as well as a single focal seizure. The patient's Depakote was increased to 750 mg 3 times daily. An MRI of the brain was attempted with medication and patient was unable to tolerate procedure. Patient underwent MRI of the brain with anesthesia 08/09/23 showing mild volume loss and small vessel ischemic disease. Infectious workup including chest x-ray and UA not concerning for infection. Blood culture showed no growth. Oxygen stable on room air. Speech therapy is following for dysphagia. PT/OT recommending SNF, planning for [facility]. Patient seen today. She was alert and interactive. She responds to her name and location. Mentation appears to be improving. No further seizure activity noted. Patient states she is not in pain. No family was present bedside. Objective Vitals and Measurements T: 36.5 C (Oral) TMIN: 36.5 C (Oral) TMAX: 37.0 C (Oral) HR: 84(Monitored) RR: 18 BP: 137/74 SpO2: 94% Intake and Output 7AM Yesterday to 7AM Today Intake and Output (Last 24 hours) Intake Oral Intake 300.00 Output Urine Voided 150.00 Urinary Catheter Output: 200.00 Stool Count 0.00 Urine Count 1.00 Total Summary Total Intake 300.00 Total Output 350.00 Fluid Balance -50.00 Physical Exam General: No acute distress. Alert Skin: No rash. Warm, Dry, Intact HEENT: Head is normocephalic and atraumatic. No lesions. Pupils equal in size. Extraocular movements within normal limits. Nose: No septal deviation. Mouth: Oropharynx mucosa is without lesion. Neck: Supple. No lymphadenopathy, thyromegaly noted. Lungs: Bilaterally clear/diminished breath sounds with no crepitation or wheeze. Unlabored on room air Cardiovascular: Heart is regular rhythm, S1S2, No extra-audible heart tones Abdomen: Abdomen is soft, nontender. Bowel sounds positive all four quadrants. Extremities: No clubbing, cyanosis or edema. Peripheral and distal pulses palpable. No calf tenderness. Adequate peripheral circulation. Neurological: The patient is awake, following commands, moving all extremities. Weight Dosing Weight: 76.6 kg (08/05/23) Medications Medications (15) Active Scheduled: (8) albuterol 0.083% Soln UD (2.5mg/3 mL) 2.5 mg 3 mL, Inhalation, QIDRT amLODIPine 5 mg tablet 5 mg 1 tab(s), Oral, qDay enoxaparin 40 mg/ 0.4mL syringe 40 mg 0.4 mL, Subcutaneous, qDay lacosamide 100 mg 10 mL, IV Piggyback, q12h levETIRAcetam 1,500 mg 15 mL, IV Piggyback, q12h losartan 100 mg tablet 100 mg 1 tab(s), Oral, qDay rosuvastatin 5 mg tablet 10 mg 2 tab(s), Oral, qDay valproate sodium 750 mg 7.5 mL, IV Piggyback, TID Continuous: (0) PRN: (7) acetaminophen 325 mg Tablet 650 mg 2 tab(s), Oral, q6hWA dextrose 50% Solution Disp syringe 50 mL 12.5 gram(s) 25 mL, IV Push, AsDirected hydralazine 20 mg/mL (1mL) vial 10 mg 0.5 mL, IV Push, QID LORAZEPam 2 mg/mL 1 mL vial 2 mg 1 mL, IV Push, q4h melatonin 3 mg tablet 3 mg 1 tab(s), Oral, qHS melatonin 3 mg tablet 3 mg 1 tab(s), Oral, qHS ondansetron 2 mg/ 1 mL 2 mL INJ 4 mg 2 mL, IV Push, q4h Lab Results 08/09 06:43 WBC: 6.9 Hgb: 10.8 L Hct: 32.5 L Platelet: 307 Neutrophil %: 52.9 Glucose Level: 76 L Sodium Level: 141 Potassium Level: 4.4 BUN: 31.0 H Creatinine Lvl (s): 0.80 08/08 07:41 WBC: 7.4 Hgb: 11.6 L Hct: 34.1 Platelet: 299 Neutrophil %: 60.6 Glucose Level: 81 L Sodium Level: 141 Potassium Level: 4.2 BUN: 25.0 H Creatinine Lvl (s): 0.81 Imaging Results and Diagnostics MRI Brain w/o Contrast Result Date: August 09, 2023 Verified By: SAI SPEARS MD CLINICAL STATEMENT: IMPRESSION: Mild volume loss and small vessel ischemic disease. XR Chest 1 View Result Date: August 06, 2023 Verified By: SHARON MOORE MD CLINICAL STATEMENT: IMPRESSION: - Improved aeration of the right lung compared to the prior exam. - Left perihilar densities are similar compared to prior with a differentialincluding hypoventilation, mild vascular congestion, or abronchitis/bronchiolitis. EKG No qualifying data available. Assessment/Plan 1. Breakthrough seizure 2. Acute encephalopathy 3. Hyponatremia 4. Developmental delay 5. Asthma without exacerbation 6. Other history of HTN, HLD, obesity Plan Mentation improved. 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 Status post 2-hour EEG 08/07/2023 showing mild to moderate nonspecific encephalopathy, ongoing cortical irritability of the left hemisphere as well as a single focal seizure. The patient's Depakote was increased to 750 mg 3 times daily. Patient also continues on Keppra 1500 mg twice daily and Vimpat 100 mg twice daily. s/p MRI of the brain with anesthesia 08/09/23 showing mild volume loss and small vessel ischemic disease. No further testing planning for neurologic standpoint Speech therapy following for dysphagia, recommended modified diet Hyponatremia has resolved Infectious workup thus far has been benign. Chest x-ray showed no evidence of pneumonia. UA was not concerning for infection. Blood cultures show no growth to date. Oxygen is stable on room air. Asthma is not acutely exacerbated, continue breathing treatments. Continue remainder of home medications for chronic conditions Lovenox for DVT prophylaxis PT/OT recommending SNF, planning for [facility] Will transfer to Plan discussed with patient. Jorge TEREZA updated on plan of care Case discussed with Dr. Benson Digitally Signed by ADEBAYO MARTINEZ on 08/10/2023 02:16 PM [facility] 08-10-2023 Neurology Progress note Date of Service 08/10/23 Chief Complaint Breakthrough seizures Subjective Patient seen and examined without family at bedside. Nursing reports no acute events overnight or concerns for seizures this morning. Patient appears slightly improved compared to yesterday showing that she is nearing her baseline, but currently not at her baseline from what sister reported. On examination she appears alert, with eyes open, can state her name "Nai", when asked what her last name is states "hernandez", asked where she was said "hospital" but is not to time. She provides yes/no responses. When asked if she was in pain said "no". Did say one short sentences "I got to go to the bathroom" but could not expand further on this. On 2 separate occasions she did display preservation repeating her name "Hernandez" twice but her preservation appears much less/improved from the past few days. She will follow all my commands. No concerns for seizures seen while present. Objective Vitals and Measurements T: 36.9 C (Oral) TMIN: 36 C (Temporal Artery) TMAX: 37.0 C (Oral) HR: 89(Monitored) RR: 17 BP: 138/68 SpO2: 98% Intake and Output 7AM Yesterday to 7AM Today Intake and Output (Last 24 hours) Intake Oral Intake 290.00 Output Urine Voided 50.00 Urinary Catheter Output: 200.00 Stool Count 0.00 Urine Count 1.00 Total Summary Total Intake 290.00 Total Output 250.00 Fluid Balance 40.00 Physical Exam Alert Follows commands, eyes open, able to track examiner on both sides, appears slow to respond. Alert orientated to self and place. She can state her name "Nai", when asked what her last name is states "hernandez", asked where she was said "hospital" but is not to time. She provides yes/no responses. When asked if she was in pain said "no". Did say one short sentences "I got to go to the bathroom" but could not expand further on this. Could not participate in meaningful conversation. On 2 separate occasions she did display preservation repeating her name "Isael" twice but her preservation appears much less/improved from the past few days. She will follow all my commands. She was able to open/close eyes, count fingers in fromnt of her, wiggle feet, smile, she was able to weakly lift her legs/arms off bed, appearing equal. No concerns for seizures seen while present. Otherwise, assessment was limited. Cranial Nerves: Pupils: 3mm -> 2mm bilaterally Visual Spicer: limited formal testing; appeared grossly intact with confrontation did track me on both sides CN III, IV, : EOMI. No sustained nystagmus CN V: limited formal testing; acknowledged stimulation on both sides CN VII: limited formal testing; face appeared symmetric on observation CN VIII: intact grossly Sensation: Light touch: limited formal testing; responded to stimulation in all 4 extremities Did face grimace and withdrawal to pain in all. Motor: Involuntary movements: Did display slight generalized tremulous movements but they did not appear seizure-like, these movements were worse with movement, did display tardive dyskinesia movements of her tongue that were constant likely chronic that is exacerbated with acute issues. Strength: Appeared 4/5 in all Coordination: Limited formal testing. Weight Dosing Weight: 76.6 kg (08/05/23) Medications Medications (15) Active Scheduled: (8) albuterol 0.083% Soln UD (2.5mg/3 mL) 2.5 mg 3 mL, Inhalation, QIDRT amLODIPine 5 mg tablet 5 mg 1 tab(s), Oral, qDay enoxaparin 40 mg/ 0.4mL syringe 40 mg 0.4 mL, Subcutaneous, qDay lacosamide 100 mg 10 mL, IV Piggyback, q12h levETIRAcetam 1,500 mg 15 mL, IV Piggyback, q12h losartan 100 mg tablet 100 mg 1 tab(s), Oral, qDay rosuvastatin 5 mg tablet 10 mg 2 tab(s), Oral, qDay valproate sodium 750 mg 7.5 mL, IV Piggyback, TID Continuous: (0) PRN: (7) acetaminophen 325 mg Tablet 650 mg 2 tab(s), Oral, q6hWA dextrose 50% Solution Disp syringe 50 mL 12.5 gram(s) 25 mL, IV Push, AsDirected hydralazine 20 mg/mL (1mL) vial 10 mg 0.5 mL, IV Push, QID LORAZEPam 2 mg/mL 1 mL vial 2 mg 1 mL, IV Push, q4h melatonin 3 mg tablet 3 mg 1 tab(s), Oral, qHS melatonin 3 mg tablet 3 mg 1 tab(s), Oral, qHS ondansetron 2 mg/ 1 mL 2 mL INJ 4 mg 2 mL, IV Push, q4h Lab Results 08/09 06:43 WBC: 6.9 Hgb: 10.8 L Hct: 32.5 L Platelet: 307 Neutrophil %: 52.9 Glucose Level: 76 L Sodium Level: 141 Potassium Level: 4.4 BUN: 31.0 H Creatinine Lvl (s): 0.80 08/08 07:41 WBC: 7.4 Hgb: 11.6 L Hct: 34.1 Platelet: 299 Neutrophil %: 60.6 Glucose Level: 81 L Sodium Level: 141 Potassium Level: 4.2 BUN: 25.0 H Creatinine Lvl (s): 0.81 Imaging Results and Diagnostics MRI Brain w/o Contrast Result Date: August 09, 2023 Verified By: SAI SPEARS MD CLINICAL STATEMENT: IMPRESSION: Mild volume loss and small vessel ischemic disease. XR Chest 1 View Result Date: August 06, 2023 Verified By: SHARON MOORE MD CLINICAL STATEMENT: IMPRESSION: - Improved aeration of the right lung compared to the prior exam. - Left perihilar densities are similar compared to prior with a differentialincluding hypoventilation, mild vascular congestion, or abronchitis/bronchiolitis. Assessment/Plan IMPRESSION Breakthrough seizure Developmental delay Refractory epilepsy Pt has a history of developmental delay and refractory epilepsy. Her baseline per sister she is interactive can answer questions with short responses, usually knows self/month/where she is at. At baseline her home meds included total of Depakote 1500mg daily, 3000 mg of Keppra daily. She presented to the outside hospital after having a generalized tonic-clonic seizure and afterward had speech alterations that were not improving. Teleneurology were consulted who recommended adding Vimpat 100 mg bid, this has been continued. On 08/06 extended 2hr EEG showed, mild-moderate non-specific encephalopathy, ongoing cortical irritability of the left hemisphere (with very high risk of seizure), as well as a single focal seizure. Therefore her home med Depakote was increased. Since has shown gradual improvement. Her exam today appears slightly improved, nearing baseline but not quite there yet. No further clinical seizures have been observed by myself or staff. It is likely that her seizures have resolved given her improvement seen clinically, she should continue to gradually improve to her baseline. Her Depakote has been maximized, therefore further plans can be held at this time as long as she continues to show improvement nearing her baseline. PLAN: -MRI of brain without contrast completed under anesthesia, reviewed no acute findings, mild volume loss and small vessel ischemic disease. -On 08/06 extended 2hr EEG showed, mild-moderate non-specific encephalopathy, ongoing cortical irritability of the left hemisphere (with very high risk of seizure), as well as a single focal seizure. Continue to monitor closely for seizure. Continue seizure precautions. Will reevaluate repeating ordering eeg if no further improvement or if there are concerns for seizures. -Patient's home medications were resumed Depakote, Keppra 1500 mg twice daily, and she was started on Vimpat 100 mg bid this stay. Continue the Depakote to 750mg TID IV (increased this stay), continue the same. -Labs reviewed today. Ammonia level 19. Valproic acid 110.8, Keppra level 80.8. Would recommend that her ammonia level, valproic acid level, cbc and CMP be checked in 1 week. -Discussed plan with bedside RN/charge -Avoid medications like Wellbutrin and Tramadol which can lower seizure threshold -GI/DVT prophylaxis per primary team -PT/OT/ST per recommendations -Fall precautions -Further medical management per medical team -Case discussed with hospitalist medical team -Follow up with Neurology in 1 weeks as outpatient Will sign off please reach out if there is no improvement or concerns for seizures. Please call with questions or concerns if any. Thank you for allowing us to participate in patients care and management. All questions were answered High risk acute neurologic condition (which poses threat to neurologic function) due to high chance of recurrent seizures and further neurologic decline without intervention. Multiple other comorbidities present as well, including DD. Digitally Signed by PUJA GUSMAN on 08/10/2023 11:34 AM Digitally Signed by GUTIERREZ PENA MD on 08/10/2023 02:51 PM [facility] 08-09-2023 Note Date of Service 08/09/23 Chief Complaint confusion Subjective 67-year-old female with past medical history of epilepsy, developmental delay, hypertension, hyperlipidemia and obesity. Patient presented to [facility] as a transfer from [facility] emergency department on 08/04/2023 with concerns for seizure and confusion. Lab work on admission showed leukocytosis of 15.8, hemoglobin was 11.1, glucose 134, sodium 130, creatinine 1.14. Ammonia level was 21. Troponin negative. Keppra level was elevated at 80.8. Valproic acid level 84. UA showed small leukocyte Estrace, negative for nitrates, 3-[address] of head showed no acute infarct or hemorrhage. Age appropriate involutional changes. CTA of head and neck showed no LVO or significant stenosis. A 2.2 cm right thyroid nodule was seen. Patient was afebrile, tachycardic at 117, blood pressure 188/91, on room air. The patient's home Keppra, and Depakote were resumed. Vimpat twice daily was added. An EEG was completed on 08/05/2023 showing abnormal awake and drowsy EEG due to mild to moderate nonspecific encephalopathy and increased risk for seizure. A 2-hour EEG was completed on 08/07/2023 which showed mild to moderate nonspecific encephalopathy, ongoing cortical irritability of the left hemisphere as well as a single focal seizure. The patient's Depakote was increased to 750 mg 3 times daily. An MRI of the brain was attempted with medication and patient was unable to tolerate procedure. Patient underwent MRI of the brain with anesthesia 08/09/23 showing mild volume loss and small vessel ischemic disease. Infectious workup including chest x-ray and UA not concerning for infection. Blood culture showed no growth. Oxygen stable on room air. Speech therapy is following for dysphagia. PT/OT recommending SNF. Patient seen today after her MRI. She was alert and responding to some questions. Patient was able to state her full name, she knew her sisters name. She was confused to location, date and situation. She did not appear to be in pain. When asked if she was in pain, she said no. O2 was stable on room air. Objective Vitals and Measurements T: 36.4 C (Oral) TMIN: 36 C (Temporal Artery) TMAX: 36.6 C (Oral) HR: 73(Monitored) RR: 16 BP: 127/68 SpO2: 96% Intake and Output 7AM Yesterday to 7AM Today Intake and Output (Last 24 hours) Intake Oral Intake 580.00 Output Urinary Catheter Output: 700.00 Stool Count 0.00 Urine Count 1.00 Total Summary Total Intake 580.00 Total Output 700.00 Fluid Balance -120.00 Physical Exam General: No acute distress. Alert Skin: No rash. Warm, Dry, Intact HEENT: Head is normocephalic and atraumatic. No lesions. Pupils equal in size. Extraocular movements within normal limits. Nose: No septal deviation. Mouth: Oropharynx mucosa is without lesion. Neck: Supple. No lymphadenopathy, thyromegaly noted. Lungs: Bilaterally clear/diminished breath sounds with no crepitation or wheeze. Unlabored on room air Cardiovascular: Heart is regular rhythm, S1S2, No extra-audible heart tones Abdomen: Abdomen is soft, nontender. Bowel sounds positive all four quadrants. Extremities: No clubbing, cyanosis or edema. Peripheral and distal pulses palpable. No calf tenderness. Adequate peripheral circulation. Neurological: The patient is awake, confused. moving all extremities. Weight Dosing Weight: 76.6 kg (08/05/23) Medications Medications (15) Active Scheduled: (8) albuterol 0.083% Soln UD (2.5mg/3 mL) 2.5 mg 3 mL, Inhalation, QIDRT amLODIPine 5 mg tablet 5 mg 1 tab(s), Oral, qDay enoxaparin 40 mg/ 0.4mL syringe 40 mg 0.4 mL, Subcutaneous, qDay lacosamide 100 mg 10 mL, IV Piggyback, q12h levETIRAcetam 1,500 mg 15 mL, IV Piggyback, q12h losartan 100 mg tablet 100 mg 1 tab(s), Oral, qDay rosuvastatin 5 mg tablet 10 mg 2 tab(s), Oral, qDay valproate sodium 750 mg 7.5 mL, IV Piggyback, TID Continuous: (0) PRN: (7) acetaminophen 325 mg Tablet 650 mg 2 tab(s), Oral, q6hWA dextrose 50% Solution Disp syringe 50 mL 12.5 gram(s) 25 mL, IV Push, AsDirected hydralazine 20 mg/mL (1mL) vial 10 mg 0.5 mL, IV Push, QID LORAZEPam 2 mg/mL 1 mL vial 2 mg 1 mL, IV Push, q4h melatonin 3 mg tablet 3 mg 1 tab(s), Oral, qHS melatonin 3 mg tablet 3 mg 1 tab(s), Oral, qHS ondansetron 2 mg/ 1 mL 2 mL INJ 4 mg 2 mL, IV Push, q4h Lab Results 08/08 07:41 WBC: 7.4 Hgb: 11.6 L Hct: 34.1 Platelet: 299 Neutrophil %: 60.6 Glucose Level: 81 L Sodium Level: 141 Potassium Level: 4.2 BUN: 25.0 H Creatinine Lvl (s): 0.81 08/07 06:29 WBC: 9.9 Hgb: 11.2 L Hct: 32.9 L Platelet: 279 Neutrophil %: 53.9 Glucose Level: 77 L Sodium Level: 138 Potassium Level: 4.0 BUN: 21.0 Creatinine Lvl (s): 0.75 EKG EKG - Completed -- 08/08/23 14:59:00 EDT Assessment/Plan 1. Breakthrough seizure 2. Acute encephalopathy 3. Hyponatremia 4. Developmental delay 5. Asthma without exacerbation 6. Other history of HTN, HLD, obesity Plan Mentation unchanged, neurology following. Patient's baseline mentation involves basic short sentences/oriented to month and location. Per POA, patient's mentation not at baseline. Neurology feels mentation is likely prolonged recovery/postictal aphasia. Status post 2-hour EEG 08/07/2023 showing mild to moderate nonspecific encephalopathy, ongoing cortical irritability of the left hemisphere as well as a single focal seizure. The patient's Depakote was increased to 750 mg 3 times daily. Patient also continues on Keppra 1500 mg twice daily and Vimpat 100 mg twice daily. s/p MRI of the brain with anesthesia 08/09/23 showing mild volume loss and small vessel ischemic disease. If not improvement in mentation by tomorrow, neurology considering repeating EEG Speech therapy following for dysphagia, recommended modified diet Hyponatremia has resolved Infectious workup thus far has been benign. Chest x-ray showed no evidence of pneumonia. UA was not concerning for infection. Blood cultures show no growth to date. Oxygen is stable on room air. Asthma is not acutely exacerbated, continue breathing treatments. Continue remainder of home medications for chronic conditions Lovenox for DVT prophylaxis PT/OT recommending SNF Plan discussed with patient. Voicemail was again left for Jorge STARKS over the phone. Case discussed with Dr. Benson Digitally Signed by ADEBAYO MARTINEZ on 08/09/2023 01:55 PM [facility] 08-09-2023 Neurology Progress note Date of Service 08/09/23 Chief Complaint Breakthrough seizures Subjective Patient seen and examined without family at bedside. Nursing reports no acute issues overnight or concerns for seizures today. Patient appears slightly improved today compared to yesterday but is not at her baseline. On examination, she has her eyes open, appears alert, when asked her name says "Nai," did display preservation repeating her name on a couple of occasions that was not in context of the question being asked. Did say "ow", "yes", "no". [facility] does answer yes/no responses does seem appropriate however cannot communicate in short sentences or carry a meaningful conversation. She is not to time/situation. Can follow commands. No concerns for seizures seen while present. Objective Vitals and Measurements T: 36.4 C (Oral) TMIN: 36 C (Temporal Artery) TMAX: 36.6 C (Oral) HR: 77 RR: 16 BP: 127/68 SpO2: 96% Intake and Output 7AM Yesterday to 7AM Today Intake and Output (Last 24 hours) Intake Oral Intake 580.00 Output Urinary Catheter Output: 700.00 Stool Count 0.00 Urine Count 1.00 Total Summary Total Intake 580.00 Total Output 700.00 Fluid Balance -120.00 Physical Exam Alert Follows commands, eyes open, appears slow to respond. She did say "Nai," when asked what her name was, however did display preservation repeating her name on a couple of occasions that was not in context of the question being asked. Did say "ow", "yes", "no". When asked where she was said "hospital". Could not answer any further questions or participate in meaningful conversation. She was able to open/close eyes, wiggle feet, smile, she was able to weakly lift her legs/arms off bed, appearing equal. Otherwise, assessment was limited. Cranial Nerves: Pupils: 3mm -> 2mm bilaterally Visual Spicer: limited formal testing; appeared grossly intact with confrontation did track me on both sides CN III, IV, : limited formal testing; appeared grossly intact CN V: limited formal testing; acknowledged stimulation on both sides CN VII: limited formal testing; face appeared symmetric on observation CN VIII: intact grossly Sensation: Light touch: limited formal testing; responded to stimulation in all 4 extremities Did face grimace and withdrawal to pain said "ow" in her lowers Motor: Involuntary movements: Did display slight generalized tremulous movements but they's did not appear seizure-like, these movements were worse with movement, did display tardive dyskinesia movements of her tongue that were constant likely chronic. Strength: limited formal testing; appeared to move all 4 extremities weakly/symmetrically Coordination: Limited formal testing. Weight Dosing Weight: 76.6 kg (08/05/23) Medications Medications (15) Active Scheduled: (8) albuterol 0.083% Soln UD (2.5mg/3 mL) 2.5 mg 3 mL, Inhalation, QIDRT amLODIPine 5 mg tablet 5 mg 1 tab(s), Oral, qDay enoxaparin 40 mg/ 0.4mL syringe 40 mg 0.4 mL, Subcutaneous, qDay lacosamide 100 mg 10 mL, IV Piggyback, q12h levETIRAcetam 1,500 mg 15 mL, IV Piggyback, q12h losartan 100 mg tablet 100 mg 1 tab(s), Oral, qDay rosuvastatin 5 mg tablet 10 mg 2 tab(s), Oral, qDay valproate sodium 750 mg 7.5 mL, IV Piggyback, TID Continuous: (0) PRN: (7) acetaminophen 325 mg Tablet 650 mg 2 tab(s), Oral, q6hWA dextrose 50% Solution Disp syringe 50 mL 12.5 gram(s) 25 mL, IV Push, AsDirected hydralazine 20 mg/mL (1mL) vial 10 mg 0.5 mL, IV Push, QID LORAZEPam 2 mg/mL 1 mL vial 2 mg 1 mL, IV Push, q4h melatonin 3 mg tablet 3 mg 1 tab(s), Oral, qHS melatonin 3 mg tablet 3 mg 1 tab(s), Oral, qHS ondansetron 2 mg/ 1 mL 2 mL INJ 4 mg 2 mL, IV Push, q4h Lab Results 08/08 07:41 WBC: 7.4 Hgb: 11.6 L Hct: 34.1 Platelet: 299 Neutrophil %: 60.6 Glucose Level: 81 L Sodium Level: 141 Potassium Level: 4.2 BUN: 25.0 H Creatinine Lvl (s): 0.81 08/07 06:29 WBC: 9.9 Hgb: 11.2 L Hct: 32.9 L Platelet: 279 Neutrophil %: 53.9 Glucose Level: 77 L Sodium Level: 138 Potassium Level: 4.0 BUN: 21.0 Creatinine Lvl (s): 0.75 Imaging Results and Diagnostics MRI Brain w/o Contrast Result Date: August 09, 2023 Verified By: SAI SPEARS MD CLINICAL STATEMENT: IMPRESSION: Mild volume loss and small vessel ischemic disease. XR Chest 1 View Result Date: August 06, 2023 Verified By: SHARON MOORE MD CLINICAL STATEMENT: IMPRESSION: - Improved aeration of the right lung compared to the prior exam. - Left perihilar densities are similar compared to prior with a differentialincluding hypoventilation, mild vascular congestion, or abronchitis/bronchiolitis. Assessment/Plan IMPRESSION Breakthrough seizure Persistent ?aphasia Developmental delay Refractory epilepsy Pt has a history of developmental delay and refractory epilepsy. Her baseline was reported to involve basic short sentences. Her medications at baseline include a total of 1500 mg of Depakote daily, 3000 mg of Keppra daily. It has been reported that she has a breakthrough complex partial seizure occasionally however it was reported that she had not had a tonic-clonic seizure in several years. She presented to the outside hospital after having a generalized tonic-clonic seizure and afterward had speech alterations that were not improving. Teleneurology was consulted who recommended adding Vimpat 100 mg bid which has been done. Given the persistent speech alterations it was also recommended that she be transferred to [facility] [place] for an EEG to exclude nonconvulsive status epilepticus. Spoke with TEREZA Diggs sister on 08/07, who reports at baseline she is interactive can answer questions with short responses, usually knows the month and where she is. States that she did visit and that this is not her neuro baseline. Her exam today appears slightly improved, but not at baseline. No further clinical seizures have been observed by staff or myself personally. Will hold steady with plan, and followup tomm. PLAN: -MRI of brain without contrast completed under anesthesia, reviewed no acute findings, mild volume loss and small vessel ischemic disease. -On 08/06 extended 2hr EEG showed, mild-moderate non-specific encephalopathy, ongoing cortical irritability of the left hemisphere (with very high risk of seizure), as well as a single focal seizure. Continue to monitor closely for seizure. Continue seizure precautions. Will reevaluate repeating ordering eeg if no further improvement or if there are concerns for seizures. -Patient's home medications were resumed that of Depakote 1500 mg daily, Keppra 1500 mg twice daily, and she was started on Vimpat 100 mg bid this stay. Continue the Depakote to 750mg TID IV(increased this stay), continue the same. -Labs reviewed today. Ammonia level 19. Valproic acid 110.8, Keppra level 80.8. Would recommend that her ammonia level, valproic acid level, cbc and CMP be checked in 1 week. -Discussed plan with bedside RN/charge -Avoid medications like Wellbutrin and Tramadol which can lower seizure threshold -GI/DVT prophylaxis per primary team -PT/OT/ST per recommendations -Fall precautions -Further medical management per medical team -Case discussed with hospitalist medical team -Follow up with Neurology in 1 weeks as outpatient Will follow-up. Hopefully we will start to see some improvement in the next 24 hours. Please call with questions or concerns if any. Thank you for allowing us to participate in patients care and management. All questions were answered High risk acute neurologic condition (which poses threat to neurologic function) due to high chance of recurrent seizures and further neurologic decline without intervention. Multiple other comorbidities present as well, including DD. Digitally Signed by PUJA GUSMAN on 08/09/2023 02:48 PM [facility] 08-09-2023 Note Date of Service 08/09/23 Chief Complaint confusion Subjective 67-year-old female with past medical history of epilepsy, developmental delay, hypertension, hyperlipidemia and obesity. Patient presented to [facility] as a transfer from [facility] emergency department on 08/04/2023 with concerns for seizure and confusion. Lab work on admission showed leukocytosis of 15.8, hemoglobin was 11.1, glucose 134, sodium 130, creatinine 1.14. Ammonia level was 21. Troponin negative. Keppra level was elevated at 80.8. Valproic acid level 84. UA showed small leukocyte Estrace, negative for nitrates, 3-[address] of head showed no acute infarct or hemorrhage. Age appropriate involutional changes. CTA of head and neck showed no LVO or significant stenosis. A 2.2 cm right thyroid nodule was seen. Patient was afebrile, tachycardic at 117, blood pressure 188/91, on room air. The patient's home Keppra, and Depakote were resumed. Vimpat twice daily was added. An EEG was completed on 08/05/2023 showing abnormal awake and drowsy EEG due to mild to moderate nonspecific encephalopathy and increased risk for seizure. A 2-hour EEG was completed on 08/07/2023 which showed mild to moderate nonspecific encephalopathy, ongoing cortical irritability of the left hemisphere as well as a single focal seizure. The patient's Depakote was increased to 750 mg 3 times daily. An MRI of the brain was attempted with medication and patient was unable to tolerate procedure. Patient underwent MRI of the brain with anesthesia 08/09/23 showing mild volume loss and small vessel ischemic disease. Infectious workup including chest x-ray and UA not concerning for infection. Blood culture showed no growth. Oxygen stable on room air. Speech therapy is following for dysphagia. PT/OT recommending SNF. Patient seen today after her MRI. She was alert and responding to some questions. Patient was able to state her full name, she knew her sisters name. She was confused to location, date and situation. She did not appear to be in pain. When asked if she was in pain, she said no. O2 was stable on room air. Objective Vitals and Measurements T: 36.4 C (Oral) TMIN: 36 C (Temporal Artery) TMAX: 36.6 C (Oral) HR: 73(Monitored) RR: 16 BP: 127/68 SpO2: 96% Intake and Output 7AM Yesterday to 7AM Today Intake and Output (Last 24 hours) Intake Oral Intake 580.00 Output Urinary Catheter Output: 700.00 Stool Count 0.00 Urine Count 1.00 Total Summary Total Intake 580.00 Total Output 700.00 Fluid Balance -120.00 Physical Exam General: No acute distress. Alert Skin: No rash. Warm, Dry, Intact HEENT: Head is normocephalic and atraumatic. No lesions. Pupils equal in size. Extraocular movements within normal limits. Nose: No septal deviation. Mouth: Oropharynx mucosa is without lesion. Neck: Supple. No lymphadenopathy, thyromegaly noted. Lungs: Bilaterally clear/diminished breath sounds with no crepitation or wheeze. Unlabored on room air Cardiovascular: Heart is regular rhythm, S1S2, No extra-audible heart tones Abdomen: Abdomen is soft, nontender. Bowel sounds positive all four quadrants. Extremities: No clubbing, cyanosis or edema. Peripheral and distal pulses palpable. No calf tenderness. Adequate peripheral circulation. Neurological: The patient is awake, confused. moving all extremities. Weight Dosing Weight: 76.6 kg (08/05/23) Medications Medications (15) Active Scheduled: (8) albuterol 0.083% Soln UD (2.5mg/3 mL) 2.5 mg 3 mL, Inhalation, QIDRT amLODIPine 5 mg tablet 5 mg 1 tab(s), Oral, qDay enoxaparin 40 mg/ 0.4mL syringe 40 mg 0.4 mL, Subcutaneous, qDay lacosamide 100 mg 10 mL, IV Piggyback, q12h levETIRAcetam 1,500 mg 15 mL, IV Piggyback, q12h losartan 100 mg tablet 100 mg 1 tab(s), Oral, qDay rosuvastatin 5 mg tablet 10 mg 2 tab(s), Oral, qDay valproate sodium 750 mg 7.5 mL, IV Piggyback, TID Continuous: (0) PRN: (7) acetaminophen 325 mg Tablet 650 mg 2 tab(s), Oral, q6hWA dextrose 50% Solution Disp syringe 50 mL 12.5 gram(s) 25 mL, IV Push, AsDirected hydralazine 20 mg/mL (1mL) vial 10 mg 0.5 mL, IV Push, QID LORAZEPam 2 mg/mL 1 mL vial 2 mg 1 mL, IV Push, q4h melatonin 3 mg tablet 3 mg 1 tab(s), Oral, qHS melatonin 3 mg tablet 3 mg 1 tab(s), Oral, qHS ondansetron 2 mg/ 1 mL 2 mL INJ 4 mg 2 mL, IV Push, q4h Lab Results 08/08 07:41 WBC: 7.4 Hgb: 11.6 L Hct: 34.1 Platelet: 299 Neutrophil %: 60.6 Glucose Level: 81 L Sodium Level: 141 Potassium Level: 4.2 BUN: 25.0 H Creatinine Lvl (s): 0.81 08/07 06:29 WBC: 9.9 Hgb: 11.2 L Hct: 32.9 L Platelet: 279 Neutrophil %: 53.9 Glucose Level: 77 L Sodium Level: 138 Potassium Level: 4.0 BUN: 21.0 Creatinine Lvl (s): 0.75 EKG EKG - Completed -- 08/08/23 14:59:00 EDT Assessment/Plan 1. Breakthrough seizure 2. Acute encephalopathy 3. Hyponatremia 4. Developmental delay 5. Asthma without exacerbation 6. Other history of HTN, HLD, obesity Plan Mentation unchanged, neurology following. Patient's baseline mentation involves basic short sentences/oriented to month and location. Per POA, patient's mentation not at baseline. Neurology feels mentation is likely prolonged recovery/postictal aphasia. Status post 2-hour EEG 08/07/2023 showing mild to moderate nonspecific encephalopathy, ongoing cortical irritability of the left hemisphere as well as a single focal seizure. The patient's Depakote was increased to 750 mg 3 times daily. Patient also continues on Keppra 1500 mg twice daily and Vimpat 100 mg twice daily. s/p MRI of the brain with anesthesia 08/09/23 showing mild volume loss and small vessel ischemic disease. If not improvement in mentation by tomorrow, neurology considering repeating EEG Speech therapy following for dysphagia, recommended modified diet Hyponatremia has resolved Infectious workup thus far has been benign. Chest x-ray showed no evidence of pneumonia. UA was not concerning for infection. Blood cultures show no growth to date. Oxygen is stable on room air. Asthma is not acutely exacerbated, continue breathing treatments. Continue remainder of home medications for chronic conditions Lovenox for DVT prophylaxis PT/OT recommending SNF Plan discussed with patient. Voicemail was again left for Jorge STARKS over the phone. Case discussed with Dr. Benson Digitally Signed by ADEBAYO MARTINEZ on 08/09/2023 01:55 PM [facility] 08-09-2023 Anesthesiology Consult note Patient: NAI HERNANDEZ Age: 67 years Sex: Female : 1955 Associated Diagnoses: None Author: CHARLY NAVA MD Postoperative Information Post Operative Info: Post op day: Post Anesthesia Care Unit. Patient location: PACU. Assessment Postanesthesia assessment Vitals: Vital signs from flowsheet : Vital Signs 08/09/2023 11:10 EDT Temperature Oral 36.4 DegC Peripheral Pulse Rate 74 bpm Respiratory Rate 16 br/min Systolic Blood Pressure Non-Invasive 127 mmHg Diastolic Blood Pressure Non-Invasive 68 mmHg Reason For Taking VItal Signs Routine 08/09/2023 10:50 EDT Heart Rate Monitored 73 bpm Respiratory Rate 16 br/min Systolic Blood Pressure Non-Invasive 126 mmHg Diastolic Blood Pressure Non-Invasive 77 mmHg Mean Arterial Pressure (NBP) 91 mmHg 08/09/2023 10:35 EDT Heart Rate Monitored 72 bpm Respiratory Rate 16 br/min Systolic Blood Pressure Non-Invasive 104 mmHg Diastolic Blood Pressure Non-Invasive 88 mmHg Mean Arterial Pressure (NBP) 93 mmHg 08/09/2023 10:20 EDT Temperature Temporal Artery 36 DegC Heart Rate Monitored 76 bpm Respiratory Rate 16 br/min Systolic Blood Pressure Non-Invasive 132 mmHg Diastolic Blood Pressure Non-Invasive 77 mmHg Mean Arterial Pressure (NBP) 91 mmHg 08/09/2023 7:01 EDT Temperature Oral 36.5 DegC Peripheral Pulse Rate 73 bpm Respiratory Rate 17 br/min Systolic Blood Pressure Non-Invasive 124 mmHg Diastolic Blood Pressure Non-Invasive 75 mmHg 08/09/2023 6:27 EDT Peripheral Pulse Rate 72 bpm Respiratory Rate 18 br/min 08/09/2023 4:55 EDT Temperature Oral 36.6 DegC Peripheral Pulse Rate 77 bpm Respiratory Rate 18 br/min Systolic Blood Pressure Non-Invasive 148 mmHg HI Diastolic Blood Pressure Non-Invasive 77 mmHg Reason For Taking VItal Signs Routine 08/08/2023 23:25 EDT Temperature Oral 36.6 DegC Peripheral Pulse Rate 76 bpm Respiratory Rate 18 br/min Systolic Blood Pressure Non-Invasive 123 mmHg Diastolic Blood Pressure Non-Invasive 66 mmHg Blood Pressure Method Automatic Blood Pressure Location Right arm Blood Pressure Cuff Size Medium Reason For Taking VItal Signs Routine 08/08/2023 19:20 EDT Temperature Oral 36.5 DegC Peripheral Pulse Rate 80 bpm Respiratory Rate 18 br/min Systolic Blood Pressure Non-Invasive 147 mmHg HI Diastolic Blood Pressure Non-Invasive 64 mmHg Blood Pressure Method Automatic Blood Pressure Location Right arm Blood Pressure Cuff Size Medium Reason For Taking VItal Signs Routine 08/08/2023 18:30 EDT Peripheral Pulse Rate 85 bpm Respiratory Rate 18 br/min 08/08/2023 15:06 EDT Temperature Oral 36.6 DegC Peripheral Pulse Rate 81 bpm Respiratory Rate 16 br/min Systolic Blood Pressure Non-Invasive 150 mmHg HI Diastolic Blood Pressure Non-Invasive 74 mmHg Blood Pressure Method Automatic Blood Pressure Location Left arm Blood Pressure Cuff Size Medium Reason For Taking VItal Signs Routine 08/08/2023 14:36 EDT Peripheral Pulse Rate 79 bpm Respiratory Rate 16 br/min 08/08/2023 11:09 EDT Temperature Oral 36.5 DegC Peripheral Pulse Rate 82 bpm Respiratory Rate 18 br/min Systolic Blood Pressure Non-Invasive 96 mmHg Diastolic Blood Pressure Non-Invasive 76 mmHg Blood Pressure Method Automatic Blood Pressure Location Left arm Blood Pressure Cuff Size Medium Reason For Taking VItal Signs Routine 08/08/2023 9:53 EDT Reason For Taking VItal Signs Routine 08/08/2023 8:05 EDT Temperature Oral 36.5 DegC Apical Heart Rate 84 bpm Respiratory Rate 18 br/min Systolic Blood Pressure Non-Invasive 107 mmHg Diastolic Blood Pressure Non-Invasive 65 mmHg Reason For Taking VItal Signs Routine 08/08/2023 7:36 EDT Peripheral Pulse Rate 86 bpm Respiratory Rate 16 br/min 08/08/2023 4:28 EDT Temperature Axillary 36.7 DegC Apical Heart Rate 72 bpm Respiratory Rate 16 br/min Systolic Blood Pressure Non-Invasive 115 mmHg Diastolic Blood Pressure Non-Invasive 75 mmHg Mean Arterial Pressure (NBP) 86 mmHg Reason For Taking VItal Signs Routine . Mental status: at preoperative baseline. Respiratory function: respirations are non-labored, stable. Respiratory support: none. CV function: stable. Cardiovascular support: none. Pain: satisfactory. Nausea status: satisfactory. Postoperative hydration status: within normal limits. Notes: Patient is sufficiently recovered from anesthesia to participate in the evaluation. No follow-up care needed. No complications post-anesthesia.. Digitally Signed by CHARLY NAVA MD on 08/09/2023 11:46 AM [facility] 08-09-2023 Note ORIGINAL HISTORY: TIA COMPARISON: Head CT 5 days previously TECHNIQUE: 1. Sagittal T1-weighted images. 2. Axial T2-weighted and T2*-weighted images. 3. Axial FLAIR images. 4. Axial diffusion-weighted images with ADC map. FINDINGS: The ventricles and sulci are mildly enlarged. There are no abnormal intra or extra-axial fluid collections. There are mild scattered punctate T2 hyperintensities in the cerebral white matter. Butt-white matter differentiation is maintained. There is no abnormal restriction of diffusion. The orbital contents are normal in appearance. The paranasal sinuses are clear IMPRESSION: Mild volume loss and small vessel ischemic disease. Interpreted by: Sai Spears MD Preliminary Report By: Sai Spears MD Electronically signed By Sai Spears MD Dictated Date: 08/09/2023 10:59:50 AM Prelim Date: 08/09/2023 11:01:30 AM Sign Date: 08/09/2023 11:01:30 AM Ordering Provider: [facility] 08-09-2023 Anesthesiology Consult note Patient: NAI HERNANDEZ Age: 67 years Sex: Female : 1955 Associated Diagnoses: None Author: JM LIU MD Preoperative Information > 8 hours Anesthesia history Patient's history: negative. Family's history: negative. Health Status Allergies: Allergic Reactions (Selected) NKA, Allergies (1) ActiveReaction NKANone Documented Current medications: (Selected) Inpatient Medications Ordered Ativan: 2 mg, 1 mL, IV Push, q4h, PRN: Seizure activity Dextrose 50% IV Push: 12.5 gram(s), 25 mL, IV Push, AsDirected, PRN: Hypoglycemia Lovenox: 40 mg, 0.4 mL, Subcutaneous, qDay Vimpat IVPB: 100 mg, 10 mL, 60 mL/hr, IV Piggyback, q12h Zofran: 4 mg, 2 mL, IV Push, q4h, PRN: Nausea/Vomiting acetaminophen: 650 mg, 2 tab(s), Oral, q6hWA, PRN: Pain, scale 1-10 albuterol 2.5 mg/3 mL (0.083%) inhalation solution: 2.5 mg, 3 mL, Inhalation, QIDRT amLODIPine: 5 mg, 1 tab(s), Oral, qDay hydrALAZINE: 10 mg, 0.5 mL, IV Push, QID, PRN: Other (see order comments) levETIRAcetam: 1,500 mg, 15 mL, 460 mL/hr, IV Piggyback, q12h losartan: 100 mg, 1 tab(s), Oral, qDay melatonin: 3 mg, 1 tab(s), Oral, qHS, PRN: Sleep melatonin: 3 mg, 1 tab(s), Oral, qHS, PRN: Sleep rosuvastatin: 10 mg, 2 tab(s), Oral, qDay valproic acid IVPB: 750 mg, 7.5 mL, 100 mL/hr, IV Piggyback, TID Prescriptions Prescribed Prolia 60 mg/mL subcutaneous solution: 60 mg, 1 mL, Subcutaneous, q6mo, for 6 month(s), M81.0, 1 mL, 1 Refill(s) Repatha SureClick 140 mg/mL subcutaneous solution: 140 mg, Subcutaneous, q2wk, 2 mL, 12 Refill(s) Spacer, inhaler: See Instructions, use as directed Pt has developmental disorder and spacer required to insure proper use of inhaler., 1 EA, 0 Refill(s) Tessalon Perles 100 mg oral capsule: 100 mg, 1 cap(s), Oral, q8h, PRN: as needed for cough, 30 cap(s), 0 Refill(s) albuterol MDI (90 mcg/inh) CFC free inhalation aerosol: 2 puff(s), Inhalation, q6h, for 30 day(s), 18 gram(s), 1 Refill(s) amLODIPine 5 mg oral tablet: 5 mg, 1 tab(s), Oral, qDay, for 90 day(s), 90 tab(s), 1 Refill(s) cholecalciferol 1250 mcg (50,000 intl units) oral capsule: 50,000 International_Unit, 1 cap(s), Oral, qmonth, for 30 day(s), Failed conservative OTC daily use, 3 cap(s), 4 Refill(s) hydroCHLOROthiazide 25 mg oral tablet: 25 mg, 1 tab(s), Oral, qDay, for 90 day(s), 90 tab(s), 1 Refill(s) loratadine 10 mg oral tablet: 10 mg, 1 tab(s), Oral, qDay, 30 tab(s), 1 Refill(s) losartan 100 mg oral tablet: 100 mg, 1 tab(s), Oral, qDay, for 90 day(s), 90 tab(s), 1 Refill(s) rosuvastatin 10 mg oral tablet: 10 mg, 1 tab(s), Oral, qDay, for 90 day(s), 90 tab(s), 1 Refill(s) Documented Medications Documented divalproex sodium 500 mg oral tablet, extended release: 500 mg, 1 tab(s), Oral, TID, 30 tab(s), 0 Refill(s) levETIRAcetam 750 mg oral tablet: 1,500 mg, 2 tab(s), Oral, BID, 360 tab(s), 0 Refill(s) melatonin 3 mg oral tablet: 6 mg, 2 tab(s), Oral, qHS, PRN: as needed for insomnia, 60 tab(s), 0 Refill(s), Medications (15) Active Scheduled: (8) albuterol 0.083% Soln UD (2.5mg/3 mL) 2.5 mg 3 mL, Inhalation, QIDRT amLODIPine 5 mg tablet 5 mg 1 tab(s), Oral, qDay enoxaparin 40 mg/ 0.4mL syringe 40 mg 0.4 mL, Subcutaneous, qDay lacosamide 100 mg 10 mL, IV Piggyback, q12h levETIRAcetam 1,500 mg 15 mL, IV Piggyback, q12h losartan 100 mg tablet 100 mg 1 tab(s), Oral, qDay rosuvastatin 5 mg tablet 10 mg 2 tab(s), Oral, qDay valproate sodium 750 mg 7.5 mL, IV Piggyback, TID Continuous: (0) PRN: (7) acetaminophen 325 mg Tablet 650 mg 2 tab(s), Oral, q6hWA dextrose 50% Solution Disp syringe 50 mL 12.5 gram(s) 25 mL, IV Push, AsDirected hydralazine 20 mg/mL (1mL) vial 10 mg 0.5 mL, IV Push, QID LORAZEPam 2 mg/mL 1 mL vial 2 mg 1 mL, IV Push, q4h melatonin 3 mg tablet 3 mg 1 tab(s), Oral, qHS melatonin 3 mg tablet 3 mg 1 tab(s), Oral, qHS ondansetron 2 mg/ 1 mL 2 mL INJ 4 mg 2 mL, IV Push, q4h Problem list: Medical High serum renin / SNOMED CT 777324164 / Confirmed Adrenal mass, left / SNOMED CT 769482324 / Confirmed Anemia / SNOMED CT 371882378 / Confirmed Anemia due to chronic kidney disease / SNOMED CT 6811212191 / Confirmed Atonic seizure / SNOMED CT 591798776 / Confirmed CKD (chronic kidney disease), stage III / SNOMED CT 8907848141 / Confirmed Developmentally disabled / SNOMED CT 3097640586 / Confirmed Abnormal echocardiogram / SNOMED CT 904143638 / Confirmed Fracture of clavicle: right transverse fracture / SNOMED CT 95043172 / Confirmed Elevated glucose / SNOMED CT 0809626901 / Confirmed Hemorrhoids / SNOMED CT 361819407 / Confirmed HTN (hypertension) / SNOMED CT [id number]-[id number]-[id number] 20 / Confirmed Hyperlipidemia LDL goal <100 / SNOMED CT 84990611 / Confirmed Hyperlipidemia / SNOMED CT 06787078 / Confirmed IFG (impaired fasting glucose) / SNOMED CT 5451916582 / Confirmed Incontinence / SNOMED CT 95134723 / Confirmed Increased BMI (body mass index) / SNOMED CT 25013732 / Confirmed Mental disability / SNOMED CT 047747550 / Confirmed IBS (irritable bowel syndrome) / SNOMED CT 92474230 / Confirmed Leukocytosis / SNOMED CT 032992196 / Confirmed Non-smoker / SNOMED CT 73844512 / Confirmed Osteoporosis / SNOMED CT 785424644 / Confirmed Screening for cholesterol level / SNOMED CT 436146218 / Confirmed Screening mammogram, encounter for / SNOMED CT 818503396 / Confirmed Risk and functional assessment / SNOMED CT 268746978 / Confirmed Post-menopausal / SNOMED CT 179703071 / Confirmed Psoriasis / SNOMED CT 49183225 / Confirmed Renal mass, right / SNOMED CT 970854695 / Confirmed Seasonal allergies / SNOMED CT 2453710231 / Confirmed Seasonal asthma / SNOMED CT 4281538608 / Confirmed Seizure disorder / SNOMED CT 123942342 / Confirmed Uterine fibromyoma / SNOMED CT 215063138 / Confirmed Vitamin D deficiency, unspecified / SNOMED CT 58118948 / Confirmed, Active Problems (33) Abnormal echocardiogram Adrenal mass, left Anemia Anemia due to chronic kidney disease Atonic seizure CKD (chronic kidney disease), stage III Developmentally disabled Elevated glucose Fracture of clavicle: right transverse fracture Hemorrhoids High serum renin HTN (hypertension) Hyperlipidemia Hyperlipidemia LDL goal <100 IBS (irritable bowel syndrome) IFG (impaired fasting glucose) Incontinence Increased BMI (body mass index) Leukocytosis Mental disability Non-smoker Osteoporosis Post-menopausal Psoriasis Renal mass, right Risk and functional assessment Screening for cholesterol level Screening mammogram, encounter for Seasonal allergies Seasonal asthma Seizure disorder Uterine fibromyoma Vitamin D deficiency, unspecified Histories Past Medical History: Active Developmentally disabled ([id number]) Resolved Epilepsy ([id number]): Resolved. Post-operative state (46814699): Resolved. Procedure history: Echocardiogram ([id number]) on 12/24/2022 at 67 Years. Comments: 02/06/2023 8:36 Vivien Barger MA (ABR-OE) 1. Left ventricle: The cavity size is normal. Wall thickness is mildly increased. Systolic function is normal. The estimated ejection fraction is 55-60%. There is no dynamic obstruction. Wall motion is normal; there are no regional wall motion abnormalities. Normal diastolic function. Moderate basal septal hypertrophy with no significant gradient at rest or with Valsalva. 2. Aortic valve: The valve is trileaflet. The leaflets are mildly thickened. 3. Mitral valve: There is mild, 1+ regurgitation. 4. Left atrium: The atrium is mildly dilated Echocardiogram ([id number]) on 12/12/2021 at 66 Years. Comments: 12/20/2021 8:21 Vivien Barger MA (ABR-OE) 1. Left ventricle: The cavity size is normal. Wall thickness is mildly increased with moderate hypertrophy of the proximal septum. Systolic function is normal. The estimated ejection fraction is 60-65%. Wall motion is normal; there are no regional wall motion abnormalities. Normal diastolic function. 2. Aortic valve: The valve is trileaflet. The leaflets are mildly thickened. 3. Mitral valve: There is mild, 1+ regurgitation. 4. Left atrium: The atrium is mildly dilated. 5. Right ventricle: The RV systolic pressure by Doppler is 12 mm Hg. 6. Pulmonic valve: There is trivial regurgitation. 7. Tricuspid valve: There is trivial regurgitation. Echocardiogram ([id number]) on 12/20/2020 at 65 Years. Comments: 01/03/2021 13:38 EDT - Clarissa Caicedo MA (ABR-OE) EF 60-65% ORIF - Open reduction and internal fixation of fracture ([id number]) on 04/23/2014 at 58 Years. Comments: 12/13/2015 8:51 [place] - MIKALA BUCIO right foot Oophorectomy ([id number]) in 2001 at 46 Years. Lumpectomy of breast ([id number]). Comments: 04/20/2014 13:30 MIKALA ABBOTT Left Social History Social & Psychosocial Habits Alcohol 4Risk Assessment: Denies Alcohol Use 08/02/2023 Use: Never Substance Abuse 08/02/2023isk Assessment: Denies Substance Abuse 08/02/2023 Use: Never Tobacco 08/02/2023isk Assessment: Denies Tobacco Use 08/02/2023 Tobacco Use: Never (less than 100 in l Exposure to Tobacco Smoke Lives in non-smoking home Home/Environment 08/02/2023 Primary Furnace Cleaner: Self and sister Nutrition/Health 08/02/2023 Caffeine intake amount: none . Physical Examination General: No acute distress. Airway: Mallampati classification: III (soft palate, base of uvula visible). Head: Normocephalic. Dentition Evaluation: Intact, Own teeth, Denies loose/chipped teeth. Respiratory: Respirations are non-labored. Cardiovascular: Normal rate. Heart Sounds: Normal. Neurologic: Alert. Review / Management Documentation reviewed: Current records, Reviewed prior records. Assessment and Plan [employer] (ASA) physical status classification: Class III. h/o seizures, CKD, anemia, htn, hld Anesthetic Preoperative Plan Anesthetic technique: General. Induction: intravenously. Maintenance airway: Oral endotracheal tube. Postoperative pain management: Per surgeon. Risks discussed: nausea, vomiting, headache, sore throat, dental injury, hypotension, allergic reaction, serious complications. Informed consent: signed by patient. Digitally Signed by JM LIU MD on 08/09/2023 11:21 AM [facility] 08-08-2023 Note SINUS RHYTHM Electronic Signature: PAVEL PAYAN MD 08/09/2023 11:38:30 [facility] 08-08-2023 Neurology Progress note Date of Service 08/08/23 Chief Complaint Breakthrough seizures Subjective Patient seen and examined without family at bedside. Nursing reports no acute issues overnight. Patient appears similar to when I saw her yesterday. On exam has her eyes open, appears alert, when asked her name says "Nai", then said " nai hernandez" did say yeah "once" "ow" twice however continued to display preservation on exam stating "Hernandez" to relevant questions. Could not answer any further questions or participate in meaningful conversation or answer any further questions. Will follow commands intermediately. No concerns for seizures seen while present or reported by RN/charge. Objective Vitals and Measurements T: 36.5 C (Oral) TMIN: 36.5 C (Oral) TMAX: 37.3 C (Axillary) HR: 82 RR: 18 BP: 96/76 SpO2: 96% Intake and Output 7AM Yesterday to 7AM Today Intake and Output (Last 24 hours) Intake Oral Intake 320.00 Output Urinary Catheter Output: 600.00 Stool Count 2.00 Urine Count 1.00 Diaper Count 1.00 Total Summary Total Intake 320.00 Total Output 600.00 Fluid Balance -280.00 Physical Exam Mental Status: Alert Responded with "Nai Hernandez" to most questions, did say "yeah" once, "ow" twice. She continued to display preservation on exam stating "Hernandez". Could not answer any further questions or participate in meaningful conversation or answer any further questions. Follows some intermediate commands. She was able to open/close eyes, wiggle feet, smile, she was able to weakly lift her legs/arms off bed. Otherwise, assessment was limited. Appears slow to respond. Cranial Nerves: Pupils: 3mm -> 2mm bilaterally Visual Spicer: limited formal testing; appeared grossly intact with confrontation did track me on both sides CN III, IV, : limited formal testing; appeared grossly intact CN V: limited formal testing; acknowledged stimulation on both sides CN VII: limited formal testing; face appeared symmetric on observation CN VIII: intact grossly Sensation: Light touch: limited formal testing; responded to stimulation in all 4 extremities Did face grimace and withdrawal to pain said "ow" twice Motor: Involuntary movements: Did display slight generalized tremulous movements but they's did not appear seizure-like, these movements were worse with movement, did display tardive dyskinesia movements of her tongue. Strength: limited formal testing; appeared to move all 4 extremities weakly/symmetrically, Coordination: Limited formal testing. Weight Dosing Weight: 76.6 kg (08/05/23) Medications Medications (14) Active Scheduled: (7) albuterol 0.083% Soln UD (2.5mg/3 mL) 2.5 mg 3 mL, Inhalation, QIDRT amLODIPine 5 mg tablet 5 mg 1 tab(s), Oral, qDay lacosamide 100 mg 10 mL, IV Piggyback, q12h levETIRAcetam 1,500 mg 15 mL, IV Piggyback, q12h losartan 100 mg tablet 100 mg 1 tab(s), Oral, qDay rosuvastatin 5 mg tablet 10 mg 2 tab(s), Oral, qDay valproate sodium 750 mg 7.5 mL, IV Piggyback, TID Continuous: (0) PRN: (7) acetaminophen 325 mg Tablet 650 mg 2 tab(s), Oral, q6hWA dextrose 50% Solution Disp syringe 50 mL 12.5 gram(s) 25 mL, IV Push, AsDirected hydralazine 20 mg/mL (1mL) vial 10 mg 0.5 mL, IV Push, QID LORAZEPam 2 mg/mL 1 mL vial 2 mg 1 mL, IV Push, q4h melatonin 3 mg tablet 3 mg 1 tab(s), Oral, qHS melatonin 3 mg tablet 3 mg 1 tab(s), Oral, qHS ondansetron 2 mg/ 1 mL 2 mL INJ 4 mg 2 mL, IV Push, q4h Lab Results 08/07 06:29 WBC: 9.9 Hgb: 11.2 L Hct: 32.9 L Platelet: 279 Neutrophil %: 53.9 Glucose Level: 77 L Sodium Level: 138 Potassium Level: 4.0 BUN: 21.0 Creatinine Lvl (s): 0.75 08/06 07:12 WBC: 12.5 H Hgb: 10.8 L Hct: 31.6 L Platelet: 267 Neutrophil %: 60.7 Glucose Level: 82 Sodium Level: 137 Potassium Level: 4.1 BUN: 20.0 Creatinine Lvl (s): 0.80 Imaging Results and Diagnostics XR Chest 1 View Result Date: August 06, 2023 Verified By: SHARON MOORE MD CLINICAL STATEMENT: IMPRESSION: - Improved aeration of the right lung compared to the prior exam. - Left perihilar densities are similar compared to prior with a differentialincluding hypoventilation, mild vascular congestion, or abronchitis/bronchiolitis. Assessment/Plan IMPRESSION Breakthrough seizure Persistent ?aphasia Developmental delay Refractory epilepsy Pt has a history of developmental delay and refractory epilepsy. Her baseline was reported to involve basic short sentences. Her medications at baseline include a total of 1500 mg of Depakote daily, 3000 mg of Keppra daily. It has been reported that she has a breakthrough complex partial seizure occasionally however it was reported that she had not had a tonic-clonic seizure in several years. She presented to the outside hospital after having a generalized tonic-clonic seizure and afterward had speech alterations that were not improving. Teleneurology was consulted who recommended adding Vimpat 100 mg bid which has been done. Given the persistent speech alterations it was also recommended that she be transferred to [facility] [place] for an EEG to exclude nonconvulsive status epilepticus. Her exam today appears unchanged. No further clinical seizures have been observed by staff. Spoke with TEREZA Diggs sister, who reports at baseline she is interactive can answer questions with short responses, usually knows the month and where she is. States that she did visit and that this is not her neuro baseline. Will hold steady today allow higher vimpat dose to become more therapeutic, if she is not any better tomorrow will consider repeating a EEG. PLAN: -Awaiting MRI of brain without contrast to be completed under anesthesia findings recommend MRI under anesthesia. -On 08/06 extended 2hr EEG showed, mild-moderate non-specific encephalopathy, ongoing cortical irritability of the left hemisphere (with very high risk of seizure), as well as a single focal seizure. Continue to monitor closely for seizure. Continue seizure precautions. Will reevaluate repeating eeg tomm. -Patient's home medications were resumed that of Depakote 1500 mg daily, Keppra 1500 mg twice daily, and she was started on Vimpat 100 mg bid this stay. on 08/06 increase Depakote to 750mg TID IV continue the same. -Labs reviewed today. Ammonia level 30. Valproic acid 107.6. Valproic acid level 84. Recheck ammonia/valproic acid level in am -Discussed plan with bedside RN/charge -Plan discussed with POA, agreeable -Avoid medications like Wellbutrin and Tramadol which can lower seizure threshold -GI/DVT prophylaxis per primary team -PT/OT/ST per recommendations -Fall precautions -Further medical management per medical team -Case discussed with hospitalist medical team -Follow up with Neurology in 2 weeks as outpatient Will follow-up. Hopefully we will start to see some improvement in the next 24 hours. Please call with questions or concerns if any. Thank you for allowing us to participate in patients care and management. All questions were answered High risk acute neurologic condition (which poses threat to neurologic function) due to high chance of recurrent seizures and further neurologic decline without intervention. Multiple other comorbidities present as well, including DD. Digitally Signed by PUJA GUSMAN on 08/08/2023 02:23 PM [facility] 08-07-2023 Note PROCEDURE TYPE: Routine inpatient EEG - approximately 3 hours with video PROCEDURE DATE: 08/07/2023 REASON FOR EEG: Evaluate for epileptiform activity SUMMARY OF FINDINGS: During maximal wakefulness, there was a fairly regulated 8 Hz posterior dominant rhythm with brief intermittent generalized slowing. Drowsiness without definite sleep was identified. There were frequent to abundant spikes over the left hemisphere which are often very briefly rhythmic without further evolution. LRDA was also seen intermittently. There were frequent fluctuations. There was one focal seizure consisting of rhythmic spikes over this region and bilateral sustained rhythmic delta which was bifrontal. GENERAL IMPRESSION: Abnormal awake and drowsy vEEG due to a mild-moderate non-specific encephalopathy, ongoing cortical irritability of the left hemisphere (with very high risk of seizure), as well as a single focal seizure. Digitally Signed by GUTIERREZ PENA MD on 08/07/2023 03:13 PM [facility] 08-06-2023 Note ORIGINAL EXAMINATION: ONE XRAY VIEW OF THE CHEST 08/06/2023 10:16 am COMPARISON: Prior chest x-ray dated 08/04/2023. HISTORY: ORDERING SYSTEM PROVIDED HISTORY: Reason for Exam: concern for aspiration FINDINGS: The cardiomediastinal silhouette is stable in appearance. Improved aeration of the right lung compared to the prior exam. Left perihilar densities are similar compared to prior with a differential including hypoventilation, mild vascular congestion, or a bronchitis/bronchiolitis. No overt consolidation is seen. There is no pleural effusion or pneumothorax. IMPRESSION: - Improved aeration of the right lung compared to the prior exam. - Left perihilar densities are similar compared to prior with a differential including hypoventilation, mild vascular congestion, or a bronchitis/bronchiolitis. Interpreted by: Sharon Moore MD Preliminary Report By: Sharon Moore MD Electronically signed By Sharon Moore MD Dictated Date: 08/06/2023 10:42:16 AM Prelim Date: 08/06/2023 10:43:49 AM Sign Date: 08/06/2023 10:43:49 AM Ordering Provider: BRITT LOPEZ [facility] 08-05-2023 Neurology Consult note Date of Service August 05, 2023 Reason for Consultation Breakthrough seizures Referring Physician Dr. Van History of Present Illness 67-year-old female with a history of developmental delay and epilepsy. Her baseline is reported to involve basic short sentences. At baseline she is on a total of 1500mg of Depakote daily and 3000mg of Keppra daily. She has a breakthrough complex partial seizure occasionally however it was reported that she had not had a tonic-clonic seizure in several years. She presented to the outside hospital after having a generalized tonic-clonic seizure and afterward had speech alterations that were not improving. Teleneurology was consulted and recommended adding Vimpat 100 mg twice daily which has been done. Given the persistent speech alterations it was also recommended that she be transferred to [facility] [place] for an EEG to exclude nonconvulsive status epilepticus. Today she was still having persistent speech alterations and answering "yeah" to most questions although occasionally she would say a different word. She was following some simple commands. No further clinical seizures have been observed. Infectious workup is still underway. Review of Systems Unable due to encephalopathy Physical Exam Vitals and Measurements T: 37.7 C (Axillary) TMIN: 36.1 C (Axillary) TMAX: 37.7 C (Axillary) HR: 110 RR: 16 BP: 128/75 SpO2: 94% HT: 160.0 cm WT: 76.6 kg BMI: 29.92 Weight Dosing Weight: 76.6 kg (08/05/23) Neurologic Exam Mental Status: Alert Reponded with "yeah" to most questions and commands Did saw "ow" purposefully at one point Also said "ok" a few times. Otherwise, assessment was limited. Cranial Nerves: Pupils: 3mm -> 2mm bilaterally Visual Spicer: limited formal testing; appeared grossly intact with confrontation CN III, IV, : limited formal testing; appeared grossly intact CN V: limited formal testing; acknowledged stimulation on both sides CN VII: limited formal testing; face appeared symmetric on observation CN VIII: intact grossly Sensation: Light touch: limited formal testing; responded to stimulation in all 4 extremities Motor: Involuntary movements: none Strength: limited formal testing; appeared to move all 4 extremities weakly/symmetrically, less so in LEs Coordination: Limited formal testing. Lab Results No 36 Hour Lab Data Imaging Results and Diagnostics OSH CT head was reported as unrevealing Assessment/Plan Breakthrough seizure Persistent ?aphasia Her EEG did not reveal any ongoing seizures though most of the interictal epileptiform activity appeared to be over the left hemisphere; most likely she is having a prolonged recovery/post-ictal aphasia. However, a brain MRI is still reasonable given the persistence of speech alteration, if she is able to tolerate. Agree with a full infectious workup. I also added an ammonia level. Vimpat 100mg BID was added, which is reasonable. Will follow-up. Hopefully we will start to see some improvement in the next 24 hours. High risk acute neurologic condition (which poses threat to neurologic function) due to high chance of recurrent seizures and further neurologic decline without intervention. Multiple other comorbidities present as well, including DD. Problem List/Past Medical History Ongoing Abnormal echocardiogram Adrenal mass, left Anemia Anemia due to chronic kidney disease Atonic seizure CKD (chronic kidney disease), stage III Developmentally disabled Elevated glucose Fracture of clavicle: right transverse fracture Hemorrhoids High serum renin HTN (hypertension) Hyperlipidemia Hyperlipidemia LDL goal <100 IBS (irritable bowel syndrome) IFG (impaired fasting glucose) Incontinence Increased BMI (body mass index) Leukocytosis Mental disability Non-smoker Osteoporosis Post-menopausal Psoriasis Renal mass, right Risk and functional assessment Screening for cholesterol level Screening mammogram, encounter for Seasonal allergies Seasonal asthma Seizure disorder Uterine fibromyoma Vitamin D deficiency, unspecified Historical Epilepsy Post-operative state Procedure/Surgical History Echocardiogram: 12/24/22 Echocardiogram: 12/12/21 Echocardiogram: 12/20/20 ORIF - Open reduction and internal fixation of fracture: 04/23/14 Oophorectomy: 2001 Lumpectomy of breast Medications Inpatient acetaminophen, 650 mg= 2 tab(s), Oral, q6hWA, PRN albuterol 2.5 mg/3 mL (0.083%) inhalation solution, 2.5 mg= 3 mL, Inhalation, QIDRT amLODIPine, 5 mg= 1 tab(s), Oral, qDay Ativan, 2 mg= 1 mL, IV Push, q4h, PRN Depacon Dextrose 50% IV Push, 12.5 gram(s)= 25 mL, IV Push, AsDirected, PRN hydrALAZINE, 10 mg= 0.5 mL, IV Push, QID, PRN labetalol, 10 mg= 2 mL, IV Push, Once levETIRAcetam losartan, 100 mg= 1 tab(s), Oral, qDay melatonin, 3 mg= 1 tab(s), Oral, qHS, PRN melatonin, 3 mg= 1 tab(s), Oral, qHS, PRN rosuvastatin, 10 mg= 1 tab(s), Oral, qDay Vimpat IVPB Zofran, 4 mg= 2 mL, IV Push, q4h, PRN Home albuterol MDI (90 mcg/inh) CFC free inhalation aerosol, 2 puff(s), Inhalation, q6h, 1 refills amLODIPine 5 mg oral tablet, 5 mg= 1 tab(s), Oral, qDay, 1 refills cholecalciferol 1250 mcg (50,000 intl units) oral capsule, 6[address]88 International_Unit= 1 cap(s), Oral, qmonth, 4 refills divalproex sodium 500 mg oral tablet, extended release, 500 mg= 1 tab(s), Oral, TID hydroCHLOROthiazide 25 mg oral tablet, 25 mg= 1 tab(s), Oral, qDay, 1 refills levETIRAcetam 750 mg oral tablet, 1500 mg= 2 tab(s), Oral, BID loratadine 10 mg oral tablet, 10 mg= 1 tab(s), Oral, qDay, 1 refills, Not taking losartan 100 mg oral tablet, 100 mg= 1 tab(s), Oral, qDay, 1 refills melatonin 3 mg oral tablet, 6 mg= 2 tab(s), Oral, qHS, PRN Prolia 60 mg/mL subcutaneous solution, 60 mg= 1 mL, Subcutaneous, q6mo, 1 refills Repatha SureClick 140 mg/mL subcutaneous solution, 140 mg, Subcutaneous, q2wk, 12 refills rosuvastatin 10 mg oral tablet, 10 mg= 1 tab(s), Oral, qDay, 1 refills Spacer, inhaler, See Instructions Tesluz elenaon Perles 100 mg oral capsule, 100 mg= 1 cap(s), Oral, q8h, PRN Allergies NKA Social History Smoking Status - 11/19/2017 Never smoker Alcohol - Denies Alcohol Use, 11/19/2017 Use: Never., 10/15/2018 Home/Environment 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 Exposure to Tobacco Smoke Lives in non-smoking home., 06/20/2023 Family History Cancer: Mother, Father and Sister. Glaucoma: Father. Heart disease: Father and Sister. Hypertension: Mother, Father, Sister and Brother. Seizures: Sister. Stroke: Sister. Thyroid: Sister. Digitally Signed by GUTIERREZ PENA MD on 08/05/2023 03:26 PM [facility] 08-05-2023 Note PROCEDURE TYPE: Routine inpatient EEG PROCEDURE DATE: 08/05/2023 REASON FOR EEG: Evaluate for epileptiform activity SUMMARY OF FINDINGS: During maximal wakefulness, there was a fairly regulated 8 Hz posterior dominant rhythm with brief intermittent generalized slowing. Drowsiness without definite sleep was identified. There were frequent to abundant spikes over the left hemisphere which are often very briefly rhythmic without further evolution. GENERAL IMPRESSION: Abnormal awake and drowsy EEG due to a mild-moderate non-specific encephalopathy and increased risk of seizure. Digitally Signed by GUTIERREZ PENA MD on 08/05/2023 02:41 PM [facility] 08-05-2023 Nurse Progress note mitt restraints discontinued in favor of soft limb wrist restraints during previous shift. Soft limb restraints alone used from 0700 until further documentation Digitally Signed by David Zamora RN on 08/05/2023 10:15 AM [facility] 08-04-2023 History and physical note Date of Service 08/04/23 Chief Complaint Seizure History of Present Illness 67-year-old female with PMHx seizures, developmentally disabled, HTN, HLD, obesity presents to the hospital as a transfer from [place] ED for seizures. History is obtained by discussion with my colleague who accepted the patient, chart review. The patient can only reply "yeah" to all questions. Per documentation by ED physician and discussion with nursing staff, patient had seizure at 8:58 AM lasting a few minutes. Afterwards, she was confused and not acting at baseline. Not talking for 1 hour afterwards. Had another 4-minute grand mal seizure. Since that time her linguist abilities are not back at baseline. In the emergency department she was tachycardic at 117. BP 188/91. Currently axillary temperature is elevated 37.5, BP 126/59. Pulse 95, respirations 20. CT angiography head and neck showed no acute findings. Incidental 2.2 cm right thyroid nodule, recommended nonemergent ultrasound follow-up. CXR with hypoventilatory changes. CT head with no acute infarct or ICH. ECG with no acute ischemic changes. Teleneurology evaluated. Recommended EEG, MRI without contrast, Keppra, Depakote, lacosamide, Ativan as needed. Neurochecks. Patient was given Vimpat, Ativan. Review of Systems Thorough review of systems is unable to be obtained secondary to the patient's mental status. Physical Exam Vitals and Measurements T: 37.5 C (Axillary) HR: 95 RR: 20 BP: 126/59 SpO2: 98% HT: 160.0 cm WT: 76.6 kg BMI: 29.92 Weight Dosing Weight: 76.6 kg (08/04/23) GA: Only replies yes to questions. She was sleeping on initial presentation but arouses easily to voice : No suprapubic TTP Abd: Obese HEENT: More mucosa dry Pulmonary: Clear to auscultation MSK: No gross deformities nontachycardic. Cardiovascular: No lower extremity edema Skin: Nondiaphoretic Neuro: Spontaneously moves all extremities. She has poor tone to her right upper extremity when I attempt to get her to squeeze my hand. However, she spontaneously moves right upper extremity with light stimulation. Unable to test strength on account of patient participation. Cranial nerves grossly normal. Psychiatric: Not agitated Lab Results WBC: 15.8 10^3/mcL High (08/04/23 13:37:00) RBC: 3.93 10^6/mcL Low (08/04/23 13:37:00) Hgb: 11.1 G/dL Low (08/04/23 13:37:00) Hct: 32.3 % Low (08/04/23 13:37:00) MCV: 82.1 fL (08/04/23 13:37:00) MCH: 28.2 pg (08/04/23 13:37:00) MCHC: 34.4 G/dL (08/04/23 13:37:00) RDW: 15.1 % High (08/04/23 13:37:00) Platelet: 243 10^3/mcL (08/04/23 13:37:00) MPV: 7 fL Low (08/04/23 13:37:00) Monocyte Distribution Width: 16.15 (08/04/23 13:37:00) Neutrophil %: 81.9 % High (08/04/23 13:37:00) Lymphocyte %: 12.1 % (08/04/23 13:37:00) Monocyte %: 5.6 % (08/04/23 13:37:00) Eosinophil %: 0 % (08/04/23 13:37:00) Basophil %: 0.4 % (08/04/23 13:37:00) Neutrophil, Absolute: 12.9 10^3/mcL High (08/04/23 13:37:00) Lymphocyte, Absolute: 1.9 10^3/mcL (08/04/23 13:37:00) Monocyte, Absolute: 0.9 10^3/mcL (08/04/23 13:37:00) Eosinophil, Absolute: 0 10^3/mcL (08/04/23 13:37:00) Basophil, Absolute: 0.1 10^3/mcL (08/04/23 13:37:00) Heparin dose (APTT): Unknown (08/04/23 13:37:00) APTT: 28.3 seconds (04/21/24 13:37:00) UA Specimen Type: Clean Catch (08/02/23 11:23:00) UA Color: Yellow (08/02/23 11:23:00) UA Appear: Clear (08/02/23 11:23:00) UA Spec Grav: 1.020 (08/02/23 11:23:00) UA Glucose: Negative. (08/02/23 11:23:00) UA Bili: Negative. (08/02/23 11:23:00) UA Ketones: Negative. (08/02/23 11:23:00) UA Blood: Negative. (08/02/23 11:23:00) UA pH: 7.0 (08/02/23 11:23:00) UA Protein: Negative.1 (08/02/23 11:23:00) UA Urobilinogen: 0.2 (08/02/23 11:23:00) UA Nitrite: Negative. (08/02/23 11:23:00) UA Leuk Est: Trace Abnormal (08/02/23 11:23:00) UA RBC: None Seen (08/02/23 11:23:00) UA WBC: 0-5 Abnormal (08/02/23 11:23:00) UA Squam Epithelial: None Seen (08/02/23 11:23:00) Glucose Level: 134 mg/dL High (08/04/23 13:37:00) Sodium Level: 130 mmol/L Low (08/04/23 13:37:00) Potassium Level: 4.3 mmol/L (08/04/23 13:37:00) Chloride: 94 mmol/L Low (08/04/23 13:37:00) CO2: 23 mmol/L (08/04/23 13:37:00) Electrolyte Balance: 13 mEq/L (08/04/23 13:37:00) BUN: 16 mg/dL (08/04/23 13:37:00) Creatinine Lvl (s): 1.14 mg/dL High (08/04/23 13:37:00) BUN/Creatinine Ratio: 14 ratio (08/04/23 13:37:00) Calcium Lvl: 8.6 mg/dL (08/04/23 13:37:00) Phosphorus: 3.4 mg/dL (08/02/23 10:41:00) Uric Acid Lvl: 8.6 mg/dL High (08/02/23 10:41:00) Total Protein: 8.4 G/dL High (08/02/23 10:41:00) Albumin Level: 3.4 G/dL (08/02/23 10:41:00) Iron: 63 mcg/dL (08/02/23 10:41:00) Iron: 63 mcg/dL (08/02/23 10:41:00) TIBC: 453 mcg/dL High (08/02/23 10:41:00) TIBC: 453 mcg/dL High (08/02/23 10:41:00) Iron Sat: 14 % (08/02/23 10:41:00) GFR Non-: 48 ml/min/1.73sqm (08/04/23 13:37:00) GFR : 58 ml/min/1.73sqm (08/04/23 13:37:00) Ferritin: 57 ng/mL (08/02/23 10:41:00) Complement C3A: 164 mg/dL (08/02/23 10:41:00) Complement C4A: 26 mg/dL (08/02/23 10:41:00) Vit. D 25-Hydroxy: 92.5 ng/mL (08/02/23 10:41:00) High Sensitivity Troponin I: 16 ng/L (08/04/23 13:37:00) PTH, Intact: 89.7 pg/mL High (08/02/23 10:41:00) U Creatinine: 69.1 mg/dL (08/02/23 11:23:00) U Protein: 9 mg/dL (08/02/23 11:23:00) U Ratio Prot/Creat: 0.1 ratio (08/02/23 11:23:00) Valproic Acid Lvl: 84 mcg/mL (08/04/23 13:37:00) LDose Valproic Acid: See eMAR (08/04/23 13:37:00) Blood Glucose, Capillary: 110 mg/dL (08/04/23 13:17:00) Assessment/Plan Acute speech abnormality. Per report, the patient typically says basic sentences but has only been applying "EA" after her seizures today. She had 2 witnessed seizure episodes. She was evaluated by teleneurology who is recommending MRI brain, EEG. MRI brain Ordered Harshal Will Keppra as recommended by teleneurology will attempt to administer orally if the patient is taking p.o. Bedside swallow eval to be done. -EEG -Seizure precautions -Neurology consult Neurochecks Asthma. No wheezing appreciated at this time. Continue albuterol. HTN. Stable. Continue amlodipine. Continue losartan. HLD. Chronic. Continue rosuvastatin. Hyponatremia. Sodium 130. Will pause patient's home hydrochlorothiazide. Medications were not verified by pharmacy at the time of this dictation. Reconciliation to be completed once medications are verified; will address additional chronic medical problems at that time. DVT prophylaxis: SCDs Note dictated using voice recognition software and may contain typographical errors. Problem List/Past Medical History Ongoing Abnormal echocardiogram Adrenal mass, left Anemia Anemia due to chronic kidney disease Atonic seizure CKD (chronic kidney disease), stage III Developmentally disabled Elevated glucose Fracture of clavicle: right transverse fracture Hemorrhoids High serum renin HTN (hypertension) Hyperlipidemia Hyperlipidemia LDL goal <100 IBS (irritable bowel syndrome) IFG (impaired fasting glucose) Incontinence Increased BMI (body mass index) Leukocytosis Mental disability Non-smoker Osteoporosis Post-menopausal Psoriasis Renal mass, right Risk and functional assessment Screening for cholesterol level Screening mammogram, encounter for Seasonal allergies Seasonal asthma Seizure disorder Uterine fibromyoma Vitamin D deficiency, unspecified Historical Epilepsy Post-operative state Procedure/Surgical History Echocardiogram: 12/24/22 Echocardiogram: 12/12/21 Echocardiogram: 12/20/20 ORIF - Open reduction and internal fixation of fracture: 04/23/14 Oophorectomy: 2002 Lumpectomy of breast Medications Home Medications (14) Active albuterol MDI (90 mcg/inh) CFC free inhalation aerosol 2 puff(s), Inhalation, q6h amLODIPine 5 mg oral tablet 5 mg = 1 tab(s), Oral, qDay cholecalciferol 1250 mcg (50,000 intl units) oral capsule 50,000 International_Unit = 1 cap(s), Oral, qmonth divalproex sodium 500 mg oral tablet, extended release 500 mg = 1 tab(s), Oral, TID hydroCHLOROthiazide 25 mg oral tablet 25 mg = 1 tab(s), Oral, qDay levETIRAcetam 750 mg oral tablet 1,500 mg = 2 tab(s), Oral, BID loratadine 10 mg oral tablet 10 mg = 1 tab(s), Oral, qDay losartan 100 mg oral tablet 100 mg = 1 tab(s), Oral, qDay melatonin 3 mg oral tablet 6 mg = 2 tab(s), PRN, Oral, qHS Prolia 60 mg/mL subcutaneous solution 60 mg = 1 mL, Subcutaneous, q6mo Repatha SureClick 140 mg/mL subcutaneous solution 140 mg, Subcutaneous, q2wk rosuvastatin 10 mg oral tablet 10 mg = 1 tab(s), Oral, qDay Spacer, inhaler See Instructions Tessalon Perles 100 mg oral capsule 100 mg = 1 cap(s), PRN, Oral, q8h Allergies NKA Social History Smoking Status - 11/19/2017 Never smoker Alcohol - Denies Alcohol Use, 11/19/2017 Use: Never., 10/15/2018 Home/Environment 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 Exposure to Tobacco Smoke Lives in non-smoking home., 06/20/2023 Family History Cancer: Mother, Father and Sister. Glaucoma: Father. Heart disease: Father and Sister. Hypertension: Mother, Father, Sister and Brother. Seizures: Sister. Stroke: Sister. Thyroid: Sister. Immunizations SARS-CoV-2 (COVID-19) mRNA-1273 vaccine: 0 unknown unit (06/22/20) SARS-CoV-2 (COVID-19) mRNA-1273 vaccine: 0.5 unknown unit (05/26/20) Code Status At this time, patient is presumed full code. Confirm when POA is available to corroborate. Digitally Signed by JEANNE VAN MD on 08/05/2023 12:01 AM [facility] 08-04-2023 Note Abnormal inferior Q waves Baseline wander in lead(s) II,III,aVR,aVF Compared to ECG at 02/24/2022 10:25:35 BORDERLINE ECG Electronic Signature: AIDEN MARQUEZ DO 08/04/2023 15:37:41 [facility] 08-04-2023 Note ORIGINAL EXAMINATION: CTA OF THE NECK08/04/2023 3:[address] angiogram neck with intravenous contrast TECHNIQUE: Nonionic intravenous contrast material was administered and axial images were obtained through the neck per standard CTA protocol. Multiplanar reformatted and shaded-surface display and three dimensional volume rendered images were generated. Where applicable, evaluation of ICA stenosis was performed using the site of greatest stenosis is compared to the diameter of the ICA distal to the stenosis at a point where the ICA peter become parallel. RADIATION DOSE REDUCTION: This exam was performed according to the departmental dose-optimization program which includes automated exposure control, adjustment of the mA and/or kV according to patient size and/or use of iterative reconstruction technique. COMPARISON: None. HISTORY: ORDERING SYSTEM PROVIDED HISTORY: Reason for Exam: Stroke Emergency, FINDINGS: There is a 3 vessel aortic arch. The origins of the innominate, bilateral common carotid, bilateral subclavian, and bilateral vertebral arteries demonstrate no significant stenosis. There is no high-grade ICA stenosis. . The bilateral external carotid arteries are patent. The cervical vertebral arteries are patent with the right-side dominant. The left vertebral artery is quite diminutive but patent throughout the neck.. There is no evidence of arterial dissection, occlusion, extravasation of contrast material, arteriovenous fistula, or pseudoaneurysm. The included lung apices show no acute contributory abnormality. There is an incidental 2.2 cm right thyroid nodule.. There is extensive degenerative change in the cervical spine. IMPRESSION: Negative CTA of the neck. No high-grade stenosis or occlusion of the arteries in the neck is seen.. 2.2 cm right thyroid nodule. Suggest nonemergent ultrasound follow-up. RECOMMENDATIONS: Incidental right thyroid nodule measuring 2.2 cm. Recommend non-emergent thyroid ultrasound. Reference: J Am Lance Radiol. 2015 May;12(2): 143-50 Unless otherwise specified, incidental findings do not require dedicated imaging and follow-up. Interpreted by: Victoriano Hernandez MD Preliminary Report By: Victoriano Hernandez MD Electronically signed By Victoriano Hernandez MD Dictated Date: 08/04/2023 3:19:52 PM Prelim Date: 08/04/2023 3:24:32 PM Sign Date: 08/04/2023 3:24:32 PM [facility] Consult note Date of Service 08/04/2023 Reason for Consultation Consent: I discussed the risks and benefits of a telehealth visit and I obtained the patient s or legally authorized medical representative s informed verbal consent to conduct this assessment using telehealth tools with visual and audio. All of the patient s or legally authorized medical representative s questions regarding the telehealth interaction were addressed. I provided my name and disclosed to the patient or legally authorized medical representative my licensure, certification, or registration. This consultation was remotely performed with the assistance of a trained virtual health liaison working at the originating site. The consultation used real time licensed and encrypted telehealth equipment which allowed a live video connection between my location and the patient s location. Aspects of the evaluation that could not be adequately evaluated by virtual assessment were shared with both the patient and the consulting provider. Location of Patient: [facility] Emergency Department Physician Bar Waiter/Waitress: [ enter rehabilitation engineer stroke Providers name here ] Location and Name of Referring Provider:Dr Cyrus [ enter Doctors Name here ] History of Present Illness 67-year-old lady with history of developmental delay and epilepsy, well controlled on Depakote 500 t.i.d. and Keppra 1500 b.i.d. followed by Neurology with last office visit in April 2023; presents with breakthrough generalized tonic-clonic and complex partial seizure. She does get the focal onset seizure with alteration of awareness described as gibberish of speech which happens periodically but she has not had a generalized tonic-clonic seizure for at least 2-3 years. She has been taking and medication regularly without any missed dosages. No obvious provoking factors at this time. CT head without contrast negative for any acute pathology. Physical Exam Vitals and Measurements T: 36.6 C (Oral) HR: 102 RR: 24 BP: 188/91 SpO2: 97% HT: 160 cm WT: 76 kg Weight Dosing Weight: 76 kg (08/04/23) She is sedated secondary to Ativan given for imaging But arousable to noxious stimulus. Noted to have tremulous activity predominantly in the left arm. No gaze deviation observed. Lab Results 08/03 13:37 WBC: 15.8 H Hgb: 11.1 L Hct: 32.3 L Platelet: 243 Neutrophil %: 81.9 H Glucose Level: 134 H Sodium Level: 130 L Potassium Level: 4.3 BUN: 16 Creatinine Lvl (s): 1.14 H Assessment/Plan Seizure reevaluation Breakthrough seizure without any obvious provoking factors Suggest transferred to the main hospital further workup including EEG to rule out status epilepticus and further workup to include MRI brain without contrast Continue with Keppra 1500 b.i.d. Continue with Depakote 500 t.i.d.; serum level therapeutic at this time Will suggest initiating lacosamide at 100 mg twice a day IV May use Ativan 2 mg IV for any seizure-like activity lasting more than a minute Frequent neuro checks Management of other acute and chronic medical conditions as per primary team This was discussed with requesting provider Problem List/Past Medical History Ongoing Abnormal echocardiogram Adrenal mass, left Anemia Anemia due to chronic kidney disease Atonic seizure CKD (chronic kidney disease), stage III Developmentally disabled Elevated glucose Fracture of clavicle: right transverse fracture Hemorrhoids High serum renin HTN (hypertension) Hyperlipidemia Hyperlipidemia LDL goal <100 IBS (irritable bowel syndrome) IFG (impaired fasting glucose) Incontinence Increased BMI (body mass index) Leukocytosis Mental disability Non-smoker Osteoporosis Post-menopausal Psoriasis Renal mass, right Risk and functional assessment Screening for cholesterol level Screening mammogram, encounter for Seasonal allergies Seasonal asthma Seizure disorder Uterine fibromyoma Vitamin D deficiency, unspecified Historical Epilepsy Post-operative state Procedure/Surgical History Echocardiogram: 12/24/22 Echocardiogram: 12/12/21 Echocardiogram: 12/20/20 ORIF - Open reduction and internal fixation of fracture: 04/23/14 Oophorectomy: 2001 Lumpectomy of breast Medications Inpatient labetalol, 10 mg= 2 mL, IV Push, Once Home albuterol MDI (90 mcg/inh) CFC free inhalation aerosol, 2 puff(s), Inhalation, q6h, 1 refills amLODIPine 5 mg oral tablet, 5 mg= 1 tab(s), Oral, qDay, 1 refills cholecalciferol 1250 mcg (50,000 intl units) oral capsule, 28662 International_Unit= 1 cap(s), Oral, qmonth, 4 refills divalproex sodium 500 mg oral tablet, extended release, 500 mg= 1 tab(s), Oral, TID hydroCHLOROthiazide 25 mg oral tablet, 25 mg= 1 tab(s), Oral, qDay, 1 refills levETIRAcetam 750 mg oral tablet, 1500 mg= 2 tab(s), Oral, BID loratadine 10 mg oral tablet, 10 mg= 1 tab(s), Oral, qDay, 1 refills losartan 100 mg oral tablet, 100 mg= 1 tab(s), Oral, qDay, 1 refills melatonin 3 mg oral tablet, 6 mg= 2 tab(s), Oral, qHS, PRN Prolia 60 mg/mL subcutaneous solution, 60 mg= 1 mL, Subcutaneous, q6mo, 1 refills Repatha SureClick 140 mg/mL subcutaneous solution, 140 mg, Subcutaneous, q2wk, 12 refills rosuvastatin 10 mg oral tablet, 10 mg= 1 tab(s), Oral, qDay, 1 refills Spacer, inhaler, See Instructions Tessalon Perles 100 mg oral capsule, 100 mg= 1 cap(s), Oral, q8h, PRN Allergies NKA Social History Smoking Status - 11/19/2017 Never smoker Alcohol - Denies Alcohol Use, 11/19/2017 Use: Never., 10/15/2018 Home/Environment 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 Exposure to Tobacco Smoke Lives in non-smoking home., 06/20/2023 Family History Cancer: Mother, Father and Sister. Glaucoma: Father. Heart disease: Father and Sister. Hypertension: Mother, Father, Sister and Brother. Seizures: Sister. Stroke: Sister. Thyroid: Sister. Immunizations SARS-CoV-2 (COVID-19) mRNA-1273 vaccine: 0 unknown unit (06/22/20) SARS-CoV-2 (COVID-19) mRNA-1273 vaccine: 0.5 unknown unit (05/26/20) Digitally Signed by DOTTY HARPER MD on 08/04/2023 03:[address] [facility] 08-04-2023 Note ORIGINAL EXAMINATION: ONE XRAY VIEW OF THE CHEST08/04/2023 2:56 pm Supine AP COMPARISON: None HISTORY: ORDERING SYSTEM PROVIDED HISTORY: Reason for Exam: chest pain/SOB, FINDINGS: Normal heart size and mediastinal contours accounting for shallow inspiration and supine posture. There is crowding of lung markings bilaterally creating artifactual densities. No large consolidation, pleural effusion or pneumothorax. No acute skeletal findings or obvious displaced rib fracture. IMPRESSION: No acute cardiopulmonary process accounting for supine posture and hypoventilatory changes. Interpreted by: Victoriano Hernandez MD Preliminary Report By: Victoriano Hernandez MD Electronically signed By Victoriano Hernandez MD Dictated Date: 08/04/2023 3:18:42 PM Prelim Date: 08/04/2023 3:19:38 PM Sign Date: 08/04/2023 3:19:38 PM Ordering Provider: AIDEN MARQUEZ [facility] 08-04-2023 Note ORIGINAL EXAMINATION: CTA OF THE HEAD WITH CONTRAST 08/04/2023 2:56 pm: TECHNIQUE: CTA of the head/brain was performed with the administration of intravenous contrast. Multiplanar reformatted images are provided for review. MIP images are provided for review. Automated exposure control, iterative reconstruction, and/or weight based adjustment of the mA/kV was utilized to reduce the radiation dose to as low as reasonably achievable. 3D surface rendering or volume rendering reconstructions were performed. COMPARISON: 08/04/2023 CTA head HISTORY: ORDERING SYSTEM PROVIDED HISTORY: Reason for Exam: Stroke Emergency FINDINGS: There are small calcified plaques of the internal carotid cavernous segments with mild stenosis. The right middle cerebral artery is patent. The left middle cerebral artery is patent. The right anterior cerebral artery is patent. The left anterior cerebral artery is patent. The bilateral distal vertebral arteries are patent. There is hypoplastic left vertebral artery. The basilar artery is patent. The right posterior cerebral artery is patent. The right posterior communicating artery is patent. The left posterior cerebral artery is patent. There is continuation of the left posterior cerebral artery. There is no aneurysm. OTHER: No dural venous sinus thrombosis on this non-dedicated study. BRAIN: No mass effect or midline shift. No extra-axial fluid collection. The butt-white differentiation is maintained. IMPRESSION: 1. The major intracranial arterial vasculature demonstrates no large vessel occlusion or flow-limiting stenosis. Interpreted by: Nolan Stacy Preliminary Report By: Nolan Stacy Electronically signed By Nolan Stacy Dictated Date: 08/04/2023 3:18:35 PM Prelim Date: 08/04/2023 3:33:32 PM Sign Date: 08/04/2023 3:33:32 PM Ordering Provider: AIDEN [facility] 08-04-2023 Evaluation + Plan note Extrac daniela from: Title:History and Physical Author:SEAN VAN ON Date:08/04/23 Acute speech abnormality. Pe r report, the patient typically says basic sentences but has only been applying "EA" after her seizures today. She had 2 witnessed seizure episodes. She was evaluated by teleneurology who is recommending MRI brain, EEG. MRI brain Ordered Depakote, Vimpat, Keppra as recommended by teleneurology will attempt to administer orally if the patient is taking p.o. Bedside swallow eval to be done. -EEG -Seizure precautions -Neurology consult Neurochecks Asthma. No wheezing appreciated at this time. Continue albuterol. HTN. Stable. Continue amlodipine. Continue losartan. HLD. Chronic. Continue rosuvastatin. Hyponatremia. Sodium 130. Will pause patient's home hydrochlorothiazide. Medications were not verified by pharmacy at the time of this dictation. Reconciliation to be completed once medications are verified; will address additional chronic medical problems at that time. DVT prophylaxis: SCDs Note dictated using voice recognition software and may contain typographical errors. Future Appointments Appointment Date:12/12/2023 08:00:00 AM Scheduled Provider: Location:[facility] Appointment Type:PC Nurse Lab Appointment Date:12/23/2023 07:00:00 AM Scheduled Provider:FISH JORDAN APRN - HAND BINDER CUTTER Location:[facility] Appointment Type:PC OV Future Scheduled Tests Laboratory* Levetiracetam (Keppra), S 12/21/23 * A1C Hemoglobin 12/21/23 * Complete Blood Count 12/21/23 * Lipid Profile 12/21/23 * Albumin/Creatinine Ratio, Random Urine 12/21/23 * Microalbumin Level Urine 12/15/22 * PTH, Intact 12/21/23 * Vitamin D Level 12/21/23 * Valproic Acid Level 12/21/23 * Complete Metabolic Panel 12/21/23 [facility] 04-21-2024 Note ORIGINAL EXAMINATION: CT OF THE HEAD WITHOUT CONTRAST08/04/2023 1:[address] HEAD OR BRAIN W/O CONTRAST TECHNIQUE: CT of the head was performed without the administration of intravenous contrast. Automated exposure control, iterative reconstruction, and/or weight based adjustment of the mA/kV was utilized to reduce the radiation dose to as low as reasonably achievable. This exam was performed according to our departmental dose optimization program, and includes the following measures where applicable: automated exposure control, adjustment of the mAs and/or kVp according to patient size and/or exam, and an iterative reconstruction algorithm. Unless otherwise specified, incidental findings do not require dedicated imaging and follow-up. COMPARISON: CT 02/24/2022 HISTORY: ORDERING SYSTEM PROVIDED HISTORY: Reason for Exam: change in mental status/weakness/aphasia, FINDINGS: FINDINGS There is no evidence of an acute territorial infarct, intracranial hemorrhage, mass effect, midline shift or extra-axial fluid collection. Ventricles and sulci show age-appropriate prominence from atrophy that is stable.. There is hypodensity in the deep cerebral white matter bilaterally consistent with mild chronic microvascular angiopathy. The density in the superior sagittal sinus is normal. No significant calvarial defects. The visualized paranasal sinuses and mastoids are clear. IMPRESSION: No acute infarct or intracranial hemorrhage is seen. Age-appropriate involutional changes. Indicators of chronic microvascular angiopathy in the deep cerebral white matter. COMMENT: Changes resultant from ischemia (even significant ischemia) may often be inapparent on CT exam, particularly if imaged early. Therefore, if symptoms persist, or clinical suspicion for pathology remains, further evaluation may be obtained with follow-up CT or MRI, as clinically feasible. Interpreted by: Victoriano Hernandez MD Preliminary Report By: Victoriano Hernandez MD Electronically signed By Victoriano Hernandez MD Dictated Date: 08/04/2023 2:08:23 PM Prelim Date: 08/04/2023 2:10:24 PM Sign Date: 08/04/2023 2:10:24 PM Ordering Provider: AIDEN [facility]09-11-2023 Note* Exam Date Time Procedure Performing Provider Status 12/24/22 9:19 AM Echocardiogram, Adult ([facility]) Auth (Verified) [facility] 11-17-2022 Note ORIGINAL EXAMINATION: MRI OF THE ABDOMEN LIMITED WITH CONTRAST, 03/01/2022 11:29 am TECHNIQUE: Multiplanar multisequence MRI of the abdomen limited was performed with the administration of intravenous contrast. Repeats were obtained due to patient motion. COMPARISON: CT abdomen/pelvis on 02/24/2022. HISTORY: ORDERING SYSTEM PROVIDED HISTORY: Reason for Exam: Left sided adrenal mass noted on CT in ER. Radiology recommending additional evaluation. FINDINGS: A 2.8 x 2.1 cm left adrenal lesion demonstrates signal dropout on out of phase imaging, which is consistent with microscopic fat. Internal macroscopic fat signal is also demonstrated. Normal right adrenal gland. Normal liver, spleen, gallbladder, and pancreas. A 1.5 cm lesion at the inferior pole of the right kidney demonstrates intermediate T1 signal and hypointense T2 signal, which is not clearly demonstrated on the recent CT abdomen/pelvis. Included small and large bowel are normal caliber. Nonaneurysmal aorta. No lymphadenopathy. IMPRESSION: The 2.8 cm left adrenal lesion is consistent with a benign adrenal myelolipoma. Indeterminate 1.5 cm lesion at the inferior pole of the right kidney. This is not compatible with a simple cyst or clearly seen on the recent CT. Renal protocol MR should be considered for further characterization. I have personally reviewed the images of this examination and agree with the resident's findings and interpretation. Interpreted by: Anthony Bautista MD Preliminary Report By: Nancie Ibanez Electronically signed By Anthony Bautista MD Dictated Date: 03/01/2022 2:26:30 PM Prelim Date: 03/01/2022 5:17:53 PM Sign Date: 03/01/2022 5:17:53 PM Ordering Provider: FISH JORDAN [facility]11-17-2022 Note ORIGINAL EXAMINATION: MRI OF THE ABDOMEN LIMITED WITH CONTRAST, 03/01/2022 11:29 am TECHNIQUE: Multiplanar multisequence MRI of the abdomen limited was performed with the administration of intravenous contrast. Repeats were obtained due to patient motion. COMPARISON: CT abdomen/pelvis on 02/24/2022. HISTORY: ORDERING SYSTEM PROVIDED HISTORY: Reason for Exam: Left sided adrenal mass noted on CT in ER. Radiology recommending additional evaluation. FINDINGS: A 2.8 x 2.1 cm left adrenal lesion demonstrates signal dropout on out of phase imaging, which is consistent with microscopic fat. Internal macroscopic fat signal is also demonstrated. Normal right adrenal gland. Normal liver, spleen, gallbladder, and pancreas. A 1.5 cm lesion at the inferior pole of the right kidney demonstrates intermediate T1 signal and hypointense T2 signal, which is not clearly demonstrated on the recent CT abdomen/pelvis. Included small and large bowel are normal caliber. Nonaneurysmal aorta. No lymphadenopathy. IMPRESSION: The 2.8 cm left adrenal lesion is consistent with a benign adrenal myelolipoma. Indeterminate 1.5 cm lesion at the inferior pole of the right kidney. This is not compatible with a simple cyst or clearly seen on the recent CT. Renal protocol MR should be considered for further characterization. I have personally reviewed the images of this examination and agree with the resident's findings and interpretation. Interpreted by: Anthony Bautista MD Preliminary Report By: Nancie Ibanez Electronically signed By Anthony Bautista MD Dictated Date: 03/01/2022 2:26:30 PM Prelim Date: 03/01/2022 5:17:53 PM Sign Date: 03/01/2022 5:17:53 PM Ordering Provider: [facility]11-12-2022 Hospital Discharge instructions Patient Education 02/24/2022 13:35:26 Understanding Hearing Loss Understanding Hearing Loss As you age, some hearing loss is normal. But long-term exposure to loud noise can speed up the loss. You lose more than the ability to hear how loud a sound is. You also lose the ability to hear certain types of sounds. For example, you might not be able to hear some of the high-pitched sounds of achild's voice. Normal loss With aging, tiny hair cells in the inner ear undergo changes. Nerve cells, also part of the inner ear, can also be affected. This is called presbycusis. Most people don't notice normal hearing loss until their middle years. Others might not notice it until late in their lives. It's most often a slow and painless process. Accelerated loss Exposure to loud noise may cause brief hearing loss and ringing in your ears called tinnitus. If your exposure was short, you may recover. But long-term exposure day after day can affect your hearingfor life. Noise hurts more than your hearing Did you know that loud noises can affect your whole body? Loud noises can: Raise blood pressure Disrupt sleep patterns Cause muscle strain Harm digestion 8312-6093 [employer]. [address] [place] [address]. All rights reserved. This information is not intended as a substitute for professional medical care. Always follow yourhealthcare professional's instructions. 02/24/2022 13:34:54 URI, Viral, No Abx (Adult) Viral Upper Respiratory Illness (Adult) You have a viral upper respiratory illness (URI), which is another term for the common cold. This illness is contagious during the first few days. It is spread through the air by coughing and sneezing. It may also be spread by direct contact (touching the sick person and then touching your own eyes, nose, or mouth). Frequent handwashing will decrease risk of spread. Most viral illnesses go away within 7 to 10 days with rest and simple home remedies. Sometimes the illness may last for several weeks. Antibiotics will not kill a virus, and they are generally not prescribed for this condition. Home care If symptoms are severe, rest at home for the first 2 to 3 days. When you resume activity, don't letyourself get too tired. Don't smoke. If you need help stopping, talk with your healthcare provider. Avoid being exposed to cigarette smoke (yours or others ). You may use acetaminophen or ibuprofen to control pain and fever, unless another medicine was prescribed. If you have chronic liver or kidney disease, have ever had a stomach ulcer or gastrointestinal bleeding, or are taking blood-thinning medicines, talk with your healthcare provider before using these medicines. Aspirin should never be given to anyone under 18 years of age who is ill with a viral infection or fever. It may cause severe liver or brain damage. Your appetite may be poor, so a light diet is fine. Stay well hydrated by drinking 6 to 8 glasses of fluids per day (water, soft drinks, juices, tea, or soup). Extra fluids will help loosen secretions in the nose and lungs. Xkhm-ukc-flcxhki cold medicines will not shorten the length of time you re sick, but they may be helpful for the following symptoms: cough, sore throat, and nasal and sinus congestion. If you take prescription medicines, ask your healthcare provider or pharmacist which bwmv-fkh-qnvhlmv medicines are safe to use. (Note: Don't use decongestants if you have high blood pressure.) Follow-up care Follow up with your healthcare provider, or as advised. When to seek medical advice Call your healthcare provider right away if any of these occur: Cough with lots of colored sputum (mucus) Severe headache; face, neck, or ear pain Difficulty swallowing due to throat pain Fever of 100.4 F (38 C) or higher, or as directed by your healthcare provider Call 911 Call 911 if any of these occur: Chest pain, shortness of breath, wheezing, or difficulty breathing Coughing up blood Very severe pain with swallowing, especially if it goes along with a muffled voice [id number] [employer]. [address] [place] [address]. All rights reserved. This information is not intended as a substitute for professional medical care. Always follow yourhealthcare professional's instructions. 02/24/2022 13:34:40 Dehydration Dehydration The human body is comprised largely of water. If you lose more fluids than you take in, you can become dehydrated. This means there are not enough fluids in your body for it to function right. Mild dehydration can cause weakness, confusion, or muscle cramps. In extreme cases, it can lead to brain damage and even . That's why prompt treatment is crucial. Risk factors Anyone can become dehydrated. But infants, children, and older adults are at greatest risk. You aremost likely to lose fluids with severe vomiting, diarrhea, or a fever. Exercising or working hard especially in hot weather can also cause excess fluid loss. What to do Drinking liquids is the best way to prevent dehydration. Water is best, but juice or frozen pops can also help. For adults, don't use liquids that contain caffeine or alcohol to rehydrate. Your doctor may suggest electrolyte solutions for sick infants and young children. When to go to the emergency room (ER) Go to an ER right away for these symptoms: Adults Very dark urine and little urine output Dizziness, weakness, confusion, fainting Children Sunken eyes Little or no urine output (for infants, no wet diaper in 8 hours) Very dark urine Skin that doesn't bounce back quickly when pinched Crying without tears Lethargy, decreased activity, or increased sleepiness What to expect in the emergency room Your blood pressure, temperature, and heart rate will be checked. You may have blood or urine tests. The main treatment for dehydration is fluids. You may be given these to drink. Or, you may receivethem through a vein in your arm. You also may be treated for diarrhea, vomiting, or a high fever. [id number] [employer]. [address] [place] [address]. All rights reserved. This information is not intended as a substitute for professional medical care. Always follow yourhealthcare professional's instructions. Follow Up Care 02/24/2022 09:23:27 With:Keep your appointment for the scheduled EEG. Address:Unknown When:2-4 days With:FISH JORDAN Address: [address] [place] [phone] Business (1) When:2-4 days Comments:Return to ED if symptoms worsen [facility] 11-12-2022 Note Discharge Instructions Thank you for allowing [facility] to assist you with your healthcare needs. The following is importantdischarge information regarding your hospital visit. Diagnosis from Today's Visit Tremor Dehydration Epilepsy Upper respiratory tract infection Sinus Pain/Congestion What to Do Next Instructions from Your Care Team No qualifying data available. Post Acute Orders No qualifying data available. You Need to Schedule the Following Appointments Follow Up with Keep your appointment for the scheduled EEG. When Within 2-4 days Follow Up with FISH JORDAN When Within 2-4 days Why: Return to ED if symptoms worsen Where: [address] [place], [place] [address] (1) Allergies NKA Medications Please ask your primary doctor or pharmacist before taking any other medication not listed, including over the counter drugs, herbal medications, vitamins and or supplements as they may interact withyour home medications. What How Much When Why Instructions Last Dose New amoxicillin-clavulanate (Augmentin 500 mg-125 mg oral tablet) 1 tab(s) by mouth Every 12 hours Tremor Dehydration Duration: 7 Days Printed Prescription New benzonatate (Tessalon Perles 100 mg oral capsule) 1 cap by mouth Three (3) times a day as needed for as needed for cough Tremor Dehydration Duration: 5 Days Printed Prescription Unchanged amLODIPine (amLODIPine 5 mg oral tablet) 1 tab(s) by mouth Once a day HTN (hypertension) Duration: 90 Days Unchanged cholecalciferol (cholecalciferol 1250 mcg (50,000 intl units) oral capsule) 1 cap by mouth Once a month Vitamin D deficiency Duration: 90 Days Failed conservative OTC daily use Unchanged denosumab (Prolia 60 mg/ mL subcutaneous solution) 1 Milliliter Subcutaneous Every 6 months Osteoporosis Duration: 6 month(s) Unchanged divalproex sodium (divalproex sodium 500 mg oral tablet, extended release) 1 tab(s) by mouth Every day Unchanged evolocumab (Repatha SureClick 140 mg/ mL subcutaneous solution) 140 Milligram Subcutaneous Every other week Unchanged hydroCHLOROthiazide (hydroCHLOROthiazide 25 mg oral tablet) 1 tab(s) by mouth Once a day HTN (hypertension) Duration: 90 Days Unchanged levETIRAcetam (levETIRAcetam 750 mg oral tablet) 2 tab(s) by mouth Two (2) times a day Unchanged losartan (losartan 100 mg oral tablet) 1 tab(s) by mouth Once a day HTN (hypertension) Duration: 90 Days Unchanged montelukast (Singulair 10 mg oral tablet) 1 tab(s) by mouth Once a day Seasonal asthma Unchanged rosuvastatin (rosuvastatin 10 mg oral tablet) 1 tab(s) by mouth Once a day Hyperlipidemia LDL goal <100 Duration: 90 Days Please take this list to your next doctor s visit. Bring all medications you take, including over the counter medications, herbals and other supplements with you to your doctor s visit. Patients and families are reminded to discard old lists and to update any records with all medication providers or retail pharmacies. Education Materials Understanding Hearing Loss As you age, some hearing loss is normal. But long-term exposure to loud noise can speed up the loss. You lose more than the ability to hear how loud a sound is. You also lose the ability to hear certain types of sounds. For example, you might not be able to hear some of the high-pitched sounds of achild's voice. Normal loss With aging, tiny hair cells in the inner ear undergo changes. Nerve cells, also part of the inner ear, can also be affected. This is called presbycusis. Most people don't notice normal hearing loss until their middle years. Others might not notice it until late in their lives. It's most often a slow and painless process. Accelerated loss Exposure to loud noise may cause brief hearing loss and ringing in your ears called tinnitus. If your exposure was short, you may recover. But long-term exposure day after day can affect your hearingfor life. Noise hurts more than your hearing Did you know that loud noises can affect your whole body? Loud noises can: Raise blood pressure Disrupt sleep patterns Cause muscle strain Harm digestion [id number] [employer]. [address] [place] [address]. All rights reserved. This information is not intended as a substitute for professional medical care. Always follow yourhealthcare professional's instructions. Viral Upper Respiratory Illness (Adult) You have a viral upper respiratory illness (URI), which is another term for the common cold. This illness is contagious during the first few days. It is spread through the air by coughing and sneezing. It may also be spread by direct contact (touching the sick person and then touching your own eyes, nose, or mouth). Frequent handwashing will decrease risk of spread. Most viral illnesses go away within 7 to 10 days with rest and simple home remedies. Sometimes the illness may last for several weeks. Antibiotics will not kill a virus, and they are generally not prescribed for this condition. Home care If symptoms are severe, rest at home for the first 2 to 3 days. When you resume activity, don't letyourself get too tired. Don't smoke. If you need help stopping, talk with your healthcare provider. Avoid being exposed to cigarette smoke (yours or others ). You may use acetaminophen or ibuprofen to control pain and fever, unless another medicine was prescribed. If you have chronic liver or kidney disease, have ever had a stomach ulcer or gastrointestinal bleeding, or are taking blood-thinning medicines, talk with your healthcare provider before using these medicines. Aspirin should never be given to anyone under 18 years of age who is ill with a viral infection or fever. It may cause severe liver or brain damage. Your appetite may be poor, so a light diet is fine. Stay well hydrated by drinking 6 to 8 glasses of fluids per day (water, soft drinks, juices, tea, or soup). Extra fluids will help loosen secretions in the nose and lungs. Rurt-fsv-goiictq cold medicines will not shorten the length of time you re sick, but they may be helpful for the following symptoms: cough, sore throat, and nasal and sinus congestion. If you take prescription medicines, ask your healthcare provider or pharmacist which wdht-ynp-tbjciem medicines are safe to use. (Note: Don't use decongestants if you have high blood pressure.) Follow-up care Follow up with your healthcare provider, or as advised. When to seek medical advice Call your healthcare provider right away if any of these occur: Cough with lots of colored sputum (mucus) Severe headache; face, neck, or ear pain Difficulty swallowing due to throat pain Fever of 100.4 F (38 C) or higher, or as directed by your healthcare provider Call 911 Call 911 if any of these occur: Chest pain, shortness of breath, wheezing, or difficulty breathing Coughing up blood Very severe pain with swallowing, especially if it goes along with a muffled voice [id number] [employer]. [address] [place] [address], [place] [address]. All rights reserved. This information is not intended as a substitute for professional medical care. Always follow yourhealthcare professional's instructions. Dehydration The human body is comprised largely of water. If you lose more fluids than you take in, you can become dehydrated. This means there are not enough fluids in your body for it to function right. Mild dehydration can cause weakness, confusion, or muscle cramps. In extreme cases, it can lead to brain damage and even . That's why prompt treatment is crucial. Risk factors Anyone can become dehydrated. But infants, children, and older adults are at greatest risk. You aremost likely to lose fluids with severe vomiting, diarrhea, or a fever. Exercising or working hard especially in hot weather can also cause excess fluid loss. What to do Drinking liquids is the best way to prevent dehydration. Water is best, but juice or frozen pops can also help. For adults, don't use liquids that contain caffeine or alcohol to rehydrate. Your doctor may suggest electrolyte solutions for sick infants and young children. When to go to the emergency room (ER) Go to an ER right away for these symptoms: Adults Very dark urine and little urine output Dizziness, weakness, confusion, fainting Children Sunken eyes Little or no urine output (for infants, no wet diaper in 8 hours) Very dark urine Skin that doesn't bounce back quickly when pinched Crying without tears Lethargy, decreased activity, or increased sleepiness What to expect in the emergency room Your blood pressure, temperature, and heart rate will be checked. You may have blood or urine tests. The main treatment for dehydration is fluids. You may be given these to drink. Or, you may receivethem through a vein in your arm. You also may be treated for diarrhea, vomiting, or a high fever. [id number] [employer]. [address] [place] [address]. All rights reserved. This information is not intended as a substitute for professional medical care. Always follow yourhealthcare professional's instructions. Additional Information VACCINATE! IT SAVES LIVES! Members of the community who have not yet received the COVID-19 vaccine and would like to receive it can visit one of [facility] vaccine clinics. There are many vaccine clinic locations within the [facility]. For locations and available times, please visit [email or web address]. It is important to note that some COVID mobile vaccine clinics are held outdoors and may be canceled in rainy orstormy conditions. To learn more about pediatric vaccinations (ages 5-11), we invite you to visit the [facility] webpage. [email or web address] learn more about the COVID-19 vaccine, we invite you to visit the [facility] website for a list of frequently asked questions. [email or web address] [facility] Patient Portal Access Instructions: Stay connected with your healthcare team and access your personal medical information anytime with the [facility] Patient Portal. If you would like a full copy of your medical records please contact the [facility] Medical Records Department Saturday through Saturday between 8a.m. and 4:30p.m. Please follow the directions below to access the portal: 1.Access the email account you provided upon registration to the [facility].2.Look for an invitation email from [facility].3.Open the email and access the invitation link: Accept Invitation to [facility]4.Fill in the required spicer to create your account. Sign into [email or web address] with your username and password that you created in the above steps to stay up to date. You can then view a summary of results, a summary of your visits, and the ability to download your summaries to your computer or send the information securely to a physician. Remember that your healthcare information is confidential, so carefully consider who you will allow to register on the [facility] Patient Portal for access to your information. You can also access the [facility] Patient Portal on the [facility]. Simply click on "Health Records" under "HealthData" and then click on the [facility] logo. HOW TO SAFELY DISPOSE OF PRESCRIPTION MEDICATIONS Please use one of the following methods to safely dispose of your unused medications. 1.Use a drug disposal kit: the drug disposal pouch allows you to safely discard your old and unuseddrugs. Ask your nurse to give you one when you are discharged.2.Visit a local take-back location: Many local pharmacies and police departments have programs that collect old and unwanted prescriptiondrugs. Call your local pharmacy or go to http://Bufys.Setgo/5P1Xa4c to find one close to you.3.Make use of household items: Use cat litter or old coffee grounds to dispose medications if other options arenot available. Mix your drugs with these household products, seal them in an airtight container andthrow it into the garbage. Call [facility]: [phone] to be sure your drugs can be disposed of in this way. Some medicines may require a different approach.4.Never flush your medications down the toilet. IF YOU HAVE BEEN PRESCRIBED AN OPIOIDS FOR PAIN If you have been prescribed an opioid (such as hydrocodone, oxycodone or morphine), it is critical to understand the possible side effects and risks of opioid pain medications. Even when taken as directed, opioids can have several side effects including: Tolerance, meaning you might need to take more of a medication for the same pain relief. Nausea, vomiting and/or constipation. Sleepiness, dizziness, dry mouth, confusion, depression or itching. Physical dependence, meaning you have withdrawal symptoms when a medication is stopped ? this can develop within a few days. KNOW YOUR RESPONSIBILITIES It is important to know exactly how much and how often to take the opioid pain medications you are prescribed. Never take opioids in higher amounts or more often than prescribed. Do not combine opioids with alcohol or other drugs that cause drowsiness, such as benzodiazepines, also known as benzos,including diazepam and alprazolam, muscle relaxants or sleep aids. Never sell or share prescriptionopioids. This is illegal. Store opioids in a secure place and out of reach of others (including children, family, friends and visitors). The last page(s) of this document has been signed and retained as a CHART COPY Signatures Patient Education Materials Understanding Hearing Loss URI, Viral, No Abx (Adult) Dehydration Medication Leaflets My discharge plan and instructions have been reviewed and explained to me and I,NAI HERNANDEZ understand my current condition and have read and understand these discharge instructions. I have received a written copy of the plan/instructions. If I have questions, I am aware that I should contact my doctor. 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11-12-2022 Note ORIGINAL EXAMINATION: CT OF THE ABDOMEN AND PELVIS WITH SNCBDUZL55/12/2022 11:[address] ABDOMEN/PELVIS WITH CONTRAST TECHNIQUE: CT of the abdomen and pelvis was performed with the administration of intravenous contrast. Multiplanar reformatted images are provided for review. Automated exposure control, iterative reconstruction, and/or weight based adjustment of the mA/kV was utilized to reduce the radiation dose to as low as reasonably achievable. COMPARISON: None HISTORY: ORDERING SYSTEM PROVIDED HISTORY: Reason for Exam: pain Bloating and loss of appetite. Incontinence. FINDINGS: There are no lower thoracic findings. Liver: Normal size and density. No mass or biliary dilatation. Gallbladder: Physiologically distended and otherwise unremarkable in appearance. Common duct: Not dilated. Pancreas: No mass, inflammation, calcification or adjacent fluid collection. Stomach and duodenum: No mass or wall thickening. Spleen: No mass and is normal in size. Right Kidney: No hydronephrosis, solid mass or visible stone. Left Kidney: No hydronephrosis, solid mass or visible stone. Adrenal glands: There is a left fat containing adrenal nodule measuring 2.9 x 2.1 cm. The large and small bowel loops are unremarkable in appearance. There is a normal appendix in the RIGHT lower quadrant. Retroperitoneum: No lymphadenopathy or hematoma. Aorta: No aneurysm. Urinary bladder: Normal Uterus is unremarkable except for calcified fibromas. Mesentery: No mass or inflammatory change. No ascites or free air. No abdominal wall masses or external hernias There are no suspicious bone lesions. There is degenerative change in the spine. IMPRESSION: No visible acute inflammatory process in the abdomen or pelvis. 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 No follow-up imaging is needed.. Interpreted by: Anthony Bautista MD Preliminary Report By: Anthony Bautista MD Electronically signed By Anthony Bautista MD Dictated Date: 02/24/2022 12:20:04 PM Prelim Date: 02/24/2022 12:23:00 PM Sign Date: 02/24/2022 12:23:00 PM Ordering Provider: [facility]11-12-2022 Note ORIGINAL EXAMINATION: CT OF THE HEAD WITHOUT CONTRAST 02/24/2022 11:51 am TECHNIQUE: CT of the head was performed without the administration of intravenous contrast. Automated exposure control, iterative reconstruction, and/or weight based adjustment of the mA/kV was utilized to reduce the radiation dose to as low as reasonably achievable. COMPARISON: 03/18/2021 HISTORY: ORDERING SYSTEM PROVIDED HISTORY: Reason for Exam: Altered mental status FINDINGS: BRAIN/VENTRICLES: There is no acute intracranial hemorrhage, mass effect or midline shift. There is moderate central atrophy. No abnormal extra-axial fluid collection. The butt-white differentiation is maintained without evidence of an acute infarct. There is no evidence of hydrocephalus. ORBITS: The visualized portion of the orbits demonstrate no acute abnormality. SINUSES: The visualized paranasal sinuses and mastoid air cells demonstrate no acute abnormality. SOFT TISSUES/SKULL: No acute abnormality of the visualized skull or soft tissues. IMPRESSION: No visible acute intracranial abnormality. Interpreted by: Anthony Bautista MD Preliminary Report By: Anthony Bautista MD Electronically signed By Anthony Bautista MD Dictated Date: 02/24/2022 12:12:36 PM Prelim Date: 02/24/2022 12:13:11 PM Sign Date: 02/24/2022 12:13:11 PM Ordering Provider: [facility]11-12-2022 Note ORIGINAL EXAMINATION: CT OF THE ABDOMEN AND PELVIS WITH IDVAIIZL25/12/2022 11:[address] ABDOMEN/PELVIS WITH CONTRAST TECHNIQUE: CT of the abdomen and pelvis was performed with the administration of intravenous contrast. Multiplanar reformatted images are provided for review. Automated exposure control, iterative reconstruction, and/or weight based adjustment of the mA/kV was utilized to reduce the radiation dose to as low as reasonably achievable. COMPARISON: None HISTORY: ORDERING SYSTEM PROVIDED HISTORY: Reason for Exam: pain Bloating and loss of appetite. Incontinence. FINDINGS: There are no lower thoracic findings. Liver: Normal size and density. No mass or biliary dilatation. Gallbladder: Physiologically distended and otherwise unremarkable in appearance. Common duct: Not dilated. Pancreas: No mass, inflammation, calcification or adjacent fluid collection. Stomach and duodenum: No mass or wall thickening. Spleen: No mass and is normal in size. Right Kidney: No hydronephrosis, solid mass or visible stone. Left Kidney: No hydronephrosis, solid mass or visible stone. Adrenal glands: There is a left fat containing adrenal nodule measuring 2.9 x 2.1 cm. The large and small bowel loops are unremarkable in appearance. There is a normal appendix in the RIGHT lower quadrant. Retroperitoneum: No lymphadenopathy or hematoma. Aorta: No aneurysm. Urinary bladder: Normal Uterus is unremarkable except for calcified fibromas. Mesentery: No mass or inflammatory change. No ascites or free air. No abdominal wall masses or external hernias There are no suspicious bone lesions. There is degenerative change in the spine. IMPRESSION: No visible acute inflammatory process in the abdomen or pelvis. 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 No follow-up imaging is needed.. Interpreted by: Anthony Bautista MD Preliminary Report By: Anthony Bautista MD Electronically signed By Anthony Bautista MD Dictated Date: 02/24/2022 12:20:04 PM Prelim Date: 02/24/2022 12:23:00 PM Sign Date: 02/24/2022 12:23:00 PM Ordering Provider: [facility]11-12-2022 Note ORIGINAL EXAMINATION: CT OF THE HEAD WITHOUT CONTRAST 02/24/2022 11:51 am TECHNIQUE: CT of the head was performed without the administration of intravenous contrast. Automated exposure control, iterative reconstruction, and/or weight based adjustment of the mA/kV was utilized to reduce the radiation dose to as low as reasonably achievable. COMPARISON: 03/18/2021 HISTORY: ORDERING SYSTEM PROVIDED HISTORY: Reason for Exam: Altered mental status FINDINGS: BRAIN/VENTRICLES: There is no acute intracranial hemorrhage, mass effect or midline shift. There is moderate central atrophy. No abnormal extra-axial fluid collection. The butt-white differentiation is maintained without evidence of an acute infarct. There is no evidence of hydrocephalus. ORBITS: The visualized portion of the orbits demonstrate no acute abnormality. SINUSES: The visualized paranasal sinuses and mastoid air cells demonstrate no acute abnormality. SOFT TISSUES/SKULL: No acute abnormality of the visualized skull or soft tissues. IMPRESSION: No visible acute intracranial abnormality. Interpreted by: Anthony Bautista MD Preliminary Report By: Anthony Bautista MD Electronically signed By Anthony Bautista MD Dictated Date: 02/24/2022 12:12:36 PM Prelim Date: 02/24/2022 12:13:11 PM Sign Date: 02/24/2022 12:13:11 PM Ordering Provider: [facility]11-12-2022 Note ORIGINAL EXAMINATION: ONE XRAY VIEW OF THE CHEST02/24/2022 10:33 am CHEST ONE VIEW AP/PA COMPARISON: 03/18/2021, 12/04/2020 HISTORY: ORDERING SYSTEM PROVIDED HISTORY: Reason for Exam: Altered mental status FINDINGS: The cardiomediastinal contours are normal. There is no focal consolidation, pleural effusion, or pneumothorax. No acute osseous abnormality. There is a remote fracture of the distal right clavicle. IMPRESSION: No acute radiographic findings. Interpreted by: Aguilar Luis MD Preliminary Report By: Aguilar Luis MD Electronically signed By Aguilar Luis MD Dictated Date: 02/24/2022 10:41:23 AM Prelim Date: 02/24/2022 10:42:45 AM Sign Date: 02/24/2022 10:42:45 AM Ordering Provider: [facility]11-12-2022 Note ORIGINAL EXAMINATION: ONE XRAY VIEW OF THE CHEST02/24/2022 10:33 am CHEST ONE VIEW AP/PA COMPARISON: 03/18/2021, 12/04/2020 HISTORY: ORDERING SYSTEM PROVIDED HISTORY: Reason for Exam: Altered mental status FINDINGS: The cardiomediastinal contours are normal. There is no focal consolidation, pleural effusion, or pneumothorax. No acute osseous abnormality. There is a remote fracture of the distal right clavicle. IMPRESSION: No acute radiographic findings. Interpreted by: Aguilar Luis MD Preliminary Report By: Aguilar Luis MD Electronically signed By Aguilar Luis MD Dictated Date: 02/24/2022 10:41:23 AM Prelim Date: 02/24/2022 10:42:45 AM Sign Date: 02/24/2022 10:42:45 AM Ordering Provider: [facility]11-12-2022 SARS-CoV-2 (COVID-19) RNA ADAM+probe Ql (Nph)Negative *NA* (02/24/22 9:54 AM)AO Auto Urine [id number] Hospital Discharge instructions Patient Education 03/18/2021 19:26:47 Fracture, Clavicle Collarbone Fracture You have a break (fracture) in your collarbone (clavicle). This will cause swelling, pain, and bruising. The first few weeks will be the most painful. This is because deep breathing, coughing, or changing position from sitting to lying down may cause the broken ends to move slightly. The fracture will heal in about 4 to 6 weeks. Most people can return to normal activities in about 3 months. In children, this injury will heal often by reshaping the bone back to normal. In adults, a noticeable bump in the bone may remain. Treatment is with a sling or a special type of arm sling called a shoulder immobilizer. This supports your arm and eases pain. Home care Follow these guidelines when caring for yourself or your child at home: Put an ice pack on the injured area. Do this for 20 minutes every 1 to 2 hours on the first day. You can make an ice pack by wrapping a plastic bag of ice cubes in a thin towel. Keep using the ice pack 3 to 4 times a day for the next 2 days. Then use it as needed to ease pain and swelling. If you were given a sling or shoulder immobilizer, wear it for comfort. You may take it off when you bathe or sleep. Take your arm out of the sling for a little while each day and move your shoulder,elbow, wrist, and hand to keep them from getting stiff. Don t do any heavy lifting or raise the injured arm overhead until you are pain- free. Your child shouldn t play sports or do physical education class for at least 4 weeks, or until the healthcare provider says it s OK to do so. You may use acetaminophen or ibuprofen to control pain, unless another pain medicine was prescribed. If you have chronic liver or kidney disease, talk with your healthcare provider before using thesemedicines. Also talk with your provider if you ve had a stomach ulcer or gastrointestinal bleeding. Your doctor may refer you to physical therapy for shoulder exercises once it starts to heal. You may need surgery if the bones are out of place (displaced). Surgery will put them in better alignment while they heal. This leads to better strength when you have healed. Follow-up care Follow up with your healthcare provider within 1 week, or as advised. This is to be sure the bone is healing the way it should. X-rays are occasionally taken of the fracture. You will be told of any new findings that may affectyour care. When to seek medical advice Call your healthcare provider right away if any of these occur: Swelling in your collarbone gets worse or the skin in the area becomes pale or discolored Large area of bruising over the collarbone Fingers become swollen, cold, blue, numb, or tingly Shortness of breath, dizziness, or general weakness Weakness or swelling in your arm Any redness, drainage, or pus coming from the wound 9208-5146 [employer]. [address] [place] [address], [place] [address]. All rights reserved. This information is not intended as a substitute for professional medical care. Always follow yourhealthcare professional's instructions. 03/18/2021 19:26:34 Seizure, Recurrent (Adult) Recurrent Seizure (Adult) You have had another seizure today. A common cause of seizures that keep happening (recurrent seizures) is missing doses of seizure medicine. But sometimes seizures are hard to control even when you take the medicine correctly. If this is the case for you, your healthcare provider may need to increase your dosage. Or you may need to add or change to another medicine. Home care Follow these tips when caring for yourself at home. For this seizure: Seizures aren t predictable. So avoid doing anything that might cause danger to you or other peopleif you have another seizure. Until the seizures are under good control, take these precautions: oDon t drive, ride a motorcycle, or ride a bike. oDon t operate dangerous equipment such as power tools oTake showers instead of baths. oDon t swim or climb ladders, trees, or roofs. Tell your close friends and relatives about your seizure. Teach them what to do for you if it happens again. If medicine was prescribed to prevent seizures, take it exactly as directed. It does not work when taken "as needed." Missing doses will increase the risk of having another seizure. If you miss a dose, take the missed dose as soon as you remember. If it is almost time for your next dose, skip the missed dose. Restart the medicine at your next scheduled time. Don t take extra medicine to make up the missed dose. Wear a "Medic-Alert" bracelet to let emergency personnel know about your condition. Follow a regular sleep schedule such that you get at least 6 to 8 hours of restful sleep every night. This is especially important when you are sick with a cold or flu and/or another type of infection. For future seizures, if you are alone: If you feel a seizure coming on, lie down on a bed or on the floor with something soft under your head. Lie on your left side, not on your back. This will keep you from falling. It will also let fluid drain out of your mouth and prevent choking. Be sure you are clear of any objects that might injure you during the seizure. Call for help if there is time. For future seizures, if someone is with you: The person should help you get into a safe position and call for help. The person shouldn t try to force anything in your mouth once the seizure begins. This could harm your teeth or jaw. Follow-up care Follow up with your healthcare provider. Keep a seizure calendar to record how often you have a seizure. If you are being started on anti-seizure medicine, make sure that you use additional control. Seizure medicine can affect how well control pills work, and you could become . Avoid alcohol until your doctor tells you it s OK. Note: For the safety of yourself and others on the road, certain states require that the treating doctor tell the Public Health Department about any adult who is treated for a seizure and is at risk of more seizures. In this case, the Department of Motor Vehicles will be told. A restriction will beput on your steam train driver s license until a doctor gives you medical clearance to drive again. Contact your treating doctor to find out if your state requires the reporting of patients with a seizures condition. When to seek medical advice Call your healthcare provider right away if any of these occur: Seizures happen more often or last longer than usual A seizure lasts over 5 minutes You don t wake up between seizures Confusion that lasts more than 30 minutes after a seizure Injury during a seizure Fever over 100.4 F (38.0 C), or as advised Unusual irritability, drowsiness, or confusion Stiff or painful neck Headache that gets worse 9512-1263 [employer]. [address] [place] [address]. All rights reserved. This information is not intended as a substitute for professional medical care. Always follow yourhealthcare professional's instructions. 03/18/2021 19:26:22 Bladder Infection, Female (Adult) Bladder Infection, Female (Adult) Urine is normally doesn't have any bacteria in it. But bacteria can get into the urinary tract fromthe skin around the rectum. Or they can travel in the blood from elsewhere in the body. Once they are in your urinary tract, they can cause infection in the urethra (urethritis), the bladder (cystitis), or the kidneys (pyelonephritis). The most common place for an infection is in the bladder. This is called a bladder infection. This is one of the most common infections in women. Most bladder infections are easily treated. They are not serious unless the infection spreads to the kidney. The phrases "bladder infection," "UTI," and "cystitis" are often used to describe the same thing. But they are not always the same. Cystitis is an inflammation of the bladder. The most common cause of cystitis is an infection. Symptoms The infection causes inflammation in the urethra and bladder. This causes many of the symptoms. Themost common symptoms of a bladder infection are: Pain or burning when urinating Having to urinate more often than usual Urgent need to urinate Only a small amount of urine comes out Blood in urine Abdominal discomfort. This is usually in the lower abdomen above the pubic bone. Cloudy urine Strong- or bad-smelling urine Unable to urinate (urinary retention) Unable to hold urine in (urinary incontinence) Fever Loss of appetite Confusion (in older adults) Causes Bladder infections are not contagious. You can't get one from someone else, from a toilet seat, or from sharing a bath. The most common cause of bladder infections is bacteria from the bowels. The bacteria get onto the skin around the opening of the urethra. From there, they can get into the urine and travel up to thebladder, causing inflammation and infection. This usually happens because of: Wiping improperly after urinating. Always wipe from front to back. Bowel incontinence Procedures such as having a catheter inserted Older age Not emptying your bladder. This can allow bacteria a chance to grow in your urine. Dehydration Constipation Sex Use of a diaphragm for control Treatment Bladder infections are diagnosed by a urine test. They are treated with antibiotics and usually clear up quickly without complications. Treatment helps prevent a more serious kidney infection. Medicines Medicines can help in the treatment of a bladder infection: Take antibiotics until they are used up, even if you feel better. It is important to finish them tomake sure the infection has cleared. You can use acetaminophen or ibuprofen for pain, fever, or discomfort, unless another medicine was prescribed. If you have chronic liver or kidney disease, talk with your healthcare provider before using these medicines. Also talk with your provider if you've ever had a stomach ulcer or gastrointestinal bleeding, or are taking blood-thinner medicines. If you are given phenazopydridine to reduce burning with urination, it will cause your urine to become a bright orange color. This can stain clothing. Care and prevention These self-care steps can help prevent future infections: Drink plenty of fluids to prevent dehydration and flush out your bladder. Do this unless you must restrict fluids for other health reasons, or your doctor told you not to. Proper cleaning after going to the bathroom is important. Wipe from front to back after using the toilet to prevent the spread of bacteria. Urinate more often. Don't try to hold urine in for a long time. Wear loose-fitting clothes and cotton underwear. Avoid tight-fitting pants. Improve your diet and prevent constipation. Eat more fresh fruit and vegetables, and fiber, and less junk and fatty foods. Avoid sex until your symptoms are gone. Avoid caffeine, alcohol, and spicy foods. These can irritate your bladder. Urinate right after intercourse to flush out your bladder. If you use control pills and have frequent bladder infections, discuss it with your doctor. Follow-up care Call your healthcare provider if all symptoms are not gone after 3 days of treatment. This is especially important if you have repeat infections. If a culture was done, you will be told if your treatment needs to be changed. If directed, you cancall to find out the results. If X-rays were done, you will be told if the results will affect your treatment. Call 911 Call 911 if any of the following occur: Trouble breathing Hard to wake up or confusion Fainting or loss of consciousness Rapid heart rate When to seek medical advice Call your healthcare provider right away if any of these occur: Fever of 100.4 F (38.0 C) or higher, or as directed by your healthcare provider Symptoms are not better by the third day of treatment Back or belly (abdominal) pain that gets worse Repeated vomiting, or unable to keep medicine down Weakness or dizziness Vaginal discharge Pain, redness, or swelling in the outer vaginal area (labia) 7720-8506 [employer]. [address] [place] [address], [place] [address]. All rights reserved. This information is not intended as a substitute for professional medical care. Always follow yourhealthcare professional's instructions. Follow Up Care 03/18/2021 15:01:02 With:ANTONIO LYONS Address: [address] [place] [address] & [place] [address]- [phone] Business (1) When:2-4 days With:NANCIE SHIELDS Address: [address] [facility] [place] [address] [phone] Business (1) When:Within 2 Day(s) With:FISH JORDAN Address: [address] [place] [address]- Business (1) When:2-4 days Comments:Return to ED if symptoms worsen [facility] Evaluation + Plan note Future Appointments Appointment Date:05/26/2021 08:00:00 AM Scheduled Provider: Location:[facility] Appointment Type:PC Nurse Lab Appointment Date:06/02/2021 08:20:00 AM Scheduled Provider:FISH JORDAN APRN, CNP Location:[facility] Appointment Type:PC OV Follow Up Appointment Date:12/12/2021 11:00:00 AM Scheduled Provider: Location:[facility] Appointment Type:CV Procedure - AO Echo Diagnostic Tests Pending * Levetiracetam Level 03/18/21 * Urine Culture 03/18/21 Future Scheduled Tests Laboratory* Levetiracetam Level 05/27/21 * Iron Level 05/27/21 * Thyroid Stimulating Hormone 12/08/20 * Free T4 12/08/20 * Vitamin B12 Level 05/27/21 * Complete Blood Count 12/08/20 * Complete Blood Count 05/27/21 * Lipid Profile 05/27/21 * Phenytoin Level 05/27/21 * Vitamin D Level 05/27/21 * Complete Metabolic Panel 05/27/21 [facility] Evaluation + Plan note Future Appointments Appointment Date:12/20/2021 09:45:00 AM Scheduled [facility] Type:CV OV Appointment Date:06/07/2022 08:00:00 AM Scheduled Provider: Location:[facility] Appointment Type:PC Nurse Lab Appointment Date:06/14/2022 04:00:00 PM Scheduled Provider:FISH JORDAN APRN, CNP Location:[facility] Appointment Type:PC OV Follow Up Future Scheduled Tests Laboratory* Levetiracetam Level 06/09/22 * Complete Blood Count 06/09/22 * Lipid Profile 06/09/22 * Microalbumin Level Urine 06/09/22 * Vitamin D Level 06/09/22 * Complete Metabolic Panel 06/09/22 [facility] Evaluation + Plan note Future Appointments Appointment Date:06/07/2022 08:00:00 AM Scheduled Provider: Location:[facility] Appointment Type:PC Nurse Lab Appointment Date:06/14/2022 04:00:00 PM Scheduled Provider:FISH JORDAN APRN, CNP Location:[facility] Appointment Type:PC OV Follow Up Appointment Date:12/20/2022 09:00:00 AM Scheduled Provider: Location:[facility] Appointment Type:CV Procedure - AOH Echo Future Scheduled Tests Laboratory* Levetiracetam Level 06/09/22 * Complete Blood Count 06/09/22 * Lipid Profile 06/09/22 * Microalbumin Level Urine 06/09/22 * Vitamin D Level 06/09/22 * Complete Metabolic Panel 06/09/22 [facility] Evaluation + Plan note Future Appointments Appointment Date:02/27/2022 08:40:00 AM Scheduled Provider:FISH JORDAN APRN, CNP Location:[facility] Appointment Type:PC OV Appointment Date:06/07/2022 08:00:00 AM Scheduled Provider: Location:[facility] Appointment Type:PC Nurse Lab Appointment Date:06/14/2022 04:00:00 PM Scheduled Provider:FISH JORDAN APRN, CNP Location:[facility] Appointment Type:PC OV Follow Up Appointment Date:12/20/2022 09:00:00 AM Scheduled Provider: Location:[facility] Appointment Type:CV Procedure - AOH Echo Diagnostic Tests Pending * Urine Culture 02/24/22 * Levetiracetam Level 02/24/22 Future Scheduled Tests Laboratory* Levetiracetam Level 06/09/22 * Complete Blood Count 06/09/22 * Lipid Profile 06/09/22 * Microalbumin Level Urine 06/09/22 * Vitamin D Level 06/09/22 * Complete Metabolic Panel 06/09/22 [facility] Evaluation + Plan note Future Appointments Appointment Date:03/13/2022 10:20:00 AM Scheduled Provider:FISH JORDAN APRN, CNP Location:[facility] Appointment Type:PC OV Appointment Date:06/07/2022 08:00:00 AM Scheduled Provider: Location:[facility] Appointment Type:PC Nurse Lab Appointment Date:06/14/2022 04:00:00 PM Scheduled Provider:FISH JORDAN APRN, CNP Location:[facility] Appointment Type:PC OV Follow Up Appointment Date:12/20/2022 09:00:00 AM Scheduled Provider: Location:[facility] Appointment Type:CV Procedure - AOH Echo Future Scheduled Tests Laboratory* Levetiracetam Level 06/09/22 * Levetiracetam Level 02/27/22 * Complete Blood Count 06/09/22 * Lipid Profile 06/09/22 * Microalbumin Level Urine 06/09/22 * Vitamin D Level 06/09/22 * Valproic Acid Level 02/27/22 * Complete Metabolic Panel 06/09/22 * Complete Metabolic Panel 02/27/22 [facility] Evaluation + Plan note Future Appointments Appointment Date:04/09/2022 11:30:00 AM Scheduled Provider: Location:[facility] Appointment Type:BD Bone Density DEXA Axial Skeleton Appointment Date:04/11/2022 08:00:00 AM Scheduled Provider: Location:[facility] Appointment Type:MA Mammogram Screening Bilateral w/ Tomasz Appointment Date:06/07/2022 08:00:00 AM Scheduled Provider: Location:[facility] Appointment Type:PC Nurse Lab Appointment Date:06/14/2022 04:00:00 PM Scheduled Provider:FISH JORDAN APRN, CNP Location:[facility] Appointment Type:PC OV Follow Up Appointment Date:12/20/2022 09:00:00 AM Scheduled Provider: Location:[facility] Appointment Type:CV Procedure - AOH Echo Future Scheduled Tests Laboratory* Levetiracetam Level 06/09/22 * Levetiracetam Level 02/27/22 * Complete Blood Count 06/09/22 * Lipid Profile 06/09/22 * Microalbumin Level Urine 06/09/22 * Vitamin D Level 06/09/22 * Valproic Acid Level 02/27/22 * Complete Metabolic Panel 06/09/22 * Complete Metabolic Panel 02/27/22 Radiology* MA Mammo Screening Bilateral w/ Tomasz 04/11/22 * BD Bone Density DEXA Axial Skeleton 04/09/22 [facility] Evaluation + Plan note Future Appointments Appointment Date:06/07/2022 08:00:00 AM Scheduled Provider: Location:[facility] Appointment Type:PC Nurse Lab Appointment Date:06/14/2022 04:00:00 PM Scheduled Provider:FISH JORDAN APRN, CNP Location:[facility] Appointment Type: OV Follow Up Appointment Date:12/20/2022 09:00:00 AM Scheduled Provider: Location:[facility] Appointment Type:CV Procedure - AOH Echo Future Scheduled Tests Laboratory* Levetiracetam Level 06/09/22 * Levetiracetam Level 02/27/22 * Complete Blood Count 06/09/22 * Lipid Profile 06/09/22 * Microalbumin Level Urine 06/09/22 * Vitamin D Level 06/09/22 * Valproic Acid Level 02/27/22 * Complete Metabolic Panel 06/09/22 * Complete Metabolic Panel 02/27/22 Radiology* BD Bone Density DEXA Axial Skeleton 04/09/22 * MRI Kidney 09/28/22 [facility] Evaluation + Plan note Future Appointments Appointment Date:06/14/2022 04:00:00 PM Scheduled Provider:FISH JORDAN APRN, CNP Location:[facility] Appointment Type: OV Follow Up Appointment Date:12/20/2022 09:00:00 AM Scheduled Provider: Location:[facility] Appointment Type:CV Procedure - AOH Echo Future Scheduled Tests Laboratory* Levetiracetam Level 02/27/22 * Microalbumin Level Urine 06/09/22 * Valproic Acid Level 02/27/22 * Complete Metabolic Panel 02/27/22 Radiology* BD Bone Density DEXA Axial Skeleton 04/09/22 * MRI Kidney 09/28/22 [facility] Evaluation + Plan note Future Appointments Appointment Date:12/13/2022 08:30:00 AM Scheduled Provider: Location:[facility] Appointment Type:PC Nurse Lab Appointment Date:12/20/2022 09:00:00 AM Scheduled Provider: Location:[facility] Appointment Type:CV Procedure - AOH Echo Appointment Date:12/20/2022 04:00:00 PM Scheduled Provider:FISH JORDAN APRN, CNP Location:[facility] Appointment Type:PC OV Follow Up Diagnostic Tests Pending * Levetiracetam Level 07/07/22 Future Scheduled Tests Laboratory* Renin, Plasma 12/15/22 * Levetiracetam Level 06/14/22 * Levetiracetam Level 12/15/22 * Levetiracetam Level 02/27/22 * Thyroid Stimulating Hormone 12/15/22 * A1C Hemoglobin 12/15/22 * Complete Blood Count 12/15/22 * Lipid Profile 12/15/22 * Microalbumin Level Urine 06/09/22 * Microalbumin Level Urine 12/15/22 * PTH, Intact 12/15/22 * Vitamin D Level 12/15/22 * Valproic Acid Level 12/15/22 * Valproic Acid Level 02/27/22 * Complete Metabolic Panel 12/15/22 * Complete Metabolic Panel 02/27/22 Radiology* BD Bone Density DEXA Axial Skeleton 04/09/22 * MRI Kidney 09/28/22 [facility] Evaluation + Plan note Future Appointments Appointment Date:12/13/2022 08:30:00 AM Scheduled Provider: Location:[facility] Appointment Type:PC Nurse Lab Appointment Date:12/20/2022 09:00:00 AM Scheduled Provider: Location:[facility] Appointment Type:CV Procedure - AOH Echo Appointment Date:12/20/2022 04:00:00 PM Scheduled Provider:FISH JORDAN APRN, CNP Location:[facility] Appointment Type:PC OV Follow Up Future Scheduled Tests Laboratory* Renin, Plasma 12/15/22 * Levetiracetam Level 06/14/22 * Levetiracetam Level 12/15/22 * Levetiracetam Level 02/27/22 * Thyroid Stimulating Hormone 12/15/22 * A1C Hemoglobin 12/15/22 * Complete Blood Count 12/15/22 * Lipid Profile 12/15/22 * Microalbumin Level Urine 06/09/22 * Microalbumin Level Urine 12/15/22 * PTH, Intact 12/15/22 * Vitamin D Level 12/15/22 * Valproic Acid Level 12/15/22 * Valproic Acid Level 02/27/22 * Complete Metabolic Panel 12/15/22 * Complete Metabolic Panel 02/27/22 Radiology* BD Bone Density DEXA Axial Skeleton 04/09/22 [facility] Evaluation + Plan note Future Appointments Appointment Date:12/20/2022 07:00:00 AM Scheduled Provider:FISH JORDAN APRN, CNP Location:[facility] Appointment Type:PC OV Follow Up Appointment Date:12/20/2022 09:00:00 AM Scheduled Provider: Location:[facility] Appointment Type:CV Procedure - AOH Echo Diagnostic Tests Pending * Renin, Plasma 12/13/22 Future Scheduled Tests Laboratory* Microalbumin Level Urine 12/15/22 Radiology* BD Bone Density DEXA Axial Skeleton 04/09/22 [facility] Evaluation + Plan note Future Appointments Appointment Date:06/13/2023 08:00:00 AM Scheduled Provider: Location:[facility] Appointment Type:PC Nurse Lab Appointment Date:06/20/2023 07:00:00 AM Scheduled Provider:FISH JORDAN APRN, CNP Location:[facility] Appointment Type:PC OV Follow Up Future Scheduled Tests Laboratory* Renin, Plasma 06/20/23 * Levetiracetam Level 06/20/23 * A1C Hemoglobin 06/20/23 * Complete Blood Count 06/20/23 * Lipid Profile 06/20/23 * Albumin/Creatinine Ratio, Random Urine 06/20/23 * Microalbumin Level Urine 12/15/22 * PTH, Intact 06/20/23 * Vitamin D Level 06/20/23 * Valproic Acid Level 06/20/23 * Complete Metabolic Panel 06/20/23 Radiology* BD Bone Density DEXA Axial Skeleton 04/09/22 [facility] Evaluation + Plan note Future Appointments Appointment Date:06/20/2023 07:00:00 AM Scheduled Provider:FISH JORDAN APRN, CNP Location:[facility] Appointment Type:PC OV Follow Up Future Scheduled Tests Laboratory* Albumin/Creatinine Ratio, Random Urine 06/20/23 * Microalbumin Level Urine 12/15/22 [facility] Evaluation + Plan note Future Appointments Appointment Date:07/05/2023 02:30:00 PM Scheduled Provider: Location:[facility] Appointment Type:CV OV Appointment Date:12/12/2023 08:00:00 AM Scheduled Provider: Location:[facility] Appointment Type:PC Nurse Lab Appointment Date:12/23/2023 07:00:00 AM Scheduled Provider:FISH JORDAN APRN, CNP Location:[facility] Appointment Type:PC OV Future Scheduled Tests Laboratory* Levetiracetam (Keppra), S 12/21/23 * A1C Hemoglobin 12/21/23 * Complete Blood Count 12/21/23 * Lipid Profile 12/21/23 * Albumin/Creatinine Ratio, Random Urine 12/21/23 * Microalbumin Level Urine 12/15/22 * PTH, Intact 12/21/23 * Vitamin D Level 12/21/23 * Valproic Acid Level 12/21/23 * Complete Metabolic Panel 12/21/23 Radiology* MA Mammo Screening Bilateral w/ Tomasz 06/20/23 * BD Bone Density DEXA Axial Skeleton 06/20/23 [facility] Evaluation + Plan note Future Appointments Appointment Date:12/12/2023 08:00:00 AM Scheduled Provider: Location:[facility] Appointment Type:PC Nurse Lab Appointment Date:12/23/2023 07:00:00 AM Scheduled Provider:FISH JORDAN APRN, CNP Location:[facility] Appointment Type:PC OV Future Scheduled Tests Laboratory* Levetiracetam (Keppra), S 12/21/23 * A1C Hemoglobin 12/21/23 * Complete Blood Count 12/21/23 * Lipid Profile 12/21/23 * Albumin/Creatinine Ratio, Random Urine 12/21/23 * Microalbumin Level Urine 12/15/22 * PTH, Intact 12/21/23 * Vitamin D Level 12/21/23 * Valproic Acid Level 12/21/23 * Complete Metabolic Panel 12/21/23 [facility] Evaluation + Plan note Future Appointments Appointment Date:12/12/2023 08:00:00 AM Scheduled Provider: Location:[facility] Appointment Type: Nurse Lab Appointment Date:12/23/2023 07:00:00 AM Scheduled Provider:FISH JORDAN APRN, CNP Location:[facility] Appointment Type: OV Diagnostic Tests Pending * Urinalysis w/ C&S if Indicated 08/04/23 * Levetiracetam (Keppra), S 08/04/23 Future Scheduled Tests Laboratory* Levetiracetam (Keppra), S 12/21/23 * A1C Hemoglobin 12/21/23 * Complete Blood Count 12/21/23 * Lipid Profile 12/21/23 * Albumin/Creatinine Ratio, Random Urine 12/21/23 * Microalbumin Level Urine 12/15/22 * PTH, Intact 12/21/23 * Vitamin D Level 12/21/23 * Valproic Acid Level 12/21/23 * Complete Metabolic Panel 12/21/23 [facility] Evaluation noteNo assessment information available [facility] Work Phone: Hospital course Narrative No data available for this section [facility] Hospital Discharge instructions No data available for this section [facility] Progress note No data available for this section [facility] Reason for referral (narrative)No reason for [facility] Work Phone: Summary Purpose Family History Relationship Condition Age at Onset Recorded Date/T catherine Unknown Family History?No pe rtinent history Unknown January 31, 2016 10:43am Family History?No pe rtinent history Unknown January 31, 2016 10:43am No Family History Records Found Advance Directives No Advanced Directives Records Found Advance Directive Response Recorded Date/ Time Advance Directives No January 31, 2016 4:16pm Chief Complaint and Reason for Visit Chief Complaint Admit Date [facility] April 20, 2024 5:00am LABWORK May 21, 2024 5 :00am LABWORK June 22, 2024 5:0 0am Chief Complaint Admit Date [facility] April 20, 2024 5:00am LABWORK May 21, 2024 5 :00am LABWORK June 22, 2024 5:0 0am [facility] July 20, 2024 4: 00am Chief Complaint Admit Date LABWORK May 21, 2024 5 :00am LABWORK June 22, 2024 5:0 0am [facility] July 20, 2024 4: 00am [facility] August 18, 2024 5:00 am Additional Source Comments Care Team (unrecognized sect ion and content) Care Team Personnel Name: FISH JORDAN TRAVEL COORDINATOR - HAND BINDER CUTTER Position: P4 Advanced Practice Nurse Member Role: Primary Care Physician Address: Address: [address] [place] [address] Care Team Related Persons Name: JORGE PEÑA Address: Home [address] [place], [place] [phone] [place] Name: KIMBERLY PEÑA Care Team Personnel Name: FISH JORDAN TRAVEL COORDINATOR - HAND BINDER CUTTER Position: P4 Advanced Practice Nurse Member Role: Primary Care Physician Address: Address: [address] [place] [address] Care Team Related Persons Name: JORGE PEÑA Address: Home [address] [place], [place] [phone] [place] Name: KIMBERLY PEÑA Care Team Personnel Name: FISH JORDAN TRAVEL COORDINATOR - HAND BINDER CUTTER Position: P4 Advanced Practice Nurse Member Role: Primary Care Physician Address: Address: [address] [place] [address] Care Team Related Persons Name: JORGE PEÑA Address: Home [address] [place], [place] [phone] [place] Name: KIMBERLY PEÑA Care Team Personnel Name: FISH JORDAN TRAVEL COORDINATOR - HAND BINDER CUTTER Position: P4 Advanced Practice Nurse Member Role: Primary Care Physician Address: Address: [address] [place] [phone]- Care Team Related Persons Name: MARIANA JORGE Jack Address: Home [address] [place], [place] [phone] [place] Name: KIMBERLY PEÑA Care Team Personnel Name: FISH JORDAN TRAVEL COORDINATOR - HAND BINDER CUTTER Position: P4 Advanced Practice Nurse Member Role: Primary Care Physician Address: Address: [address] [place] [phone]- Care Team Related Persons Name: JORGE PEÑA Address: Home [address] [place], [place] [phone] [place] Name: KIMBERLY PEÑA Care Team Personnel Name: FISH JORDAN TRAVEL COORDINATOR - HAND BINDER CUTTER Position: P4 Advanced Practice Nurse Member Role: Primary Care Physician Address: Address: [address] [place] [phone]- Care Team Related Persons Name: MARIANA JORGE S Address: Home [address] [place], [place] [phone] [place] Name: KIMBERLY PEÑA Care Team Personnel Name: FISH JORDAN TRAVEL COORDINATOR - HAND BINDER CUTTER Position: P4 Advanced Practice Nurse Member Role: Primary Care Physician Address: Address: [address] [place] [address]- Care Team Related Persons Name: JORGE PEÑA Address: Home [address] [place], [place] [phone] [place] Name: KIMBERLY PEÑA Care Team Personnel Name: FISH JORDAN TRAVEL COORDINATOR - HAND BINDER CUTTER Position: P4 Advanced Guest Experience Manager Member Role: Primary Care Physician Address: Address: [address] [place] [phone] [place] Care Team Related Persons Name: JORGE PEÑA Address: Home [address] [place], [place] [phone] [place] Name: KIMBERLY PEÑA Patient Care team informatio n (unrecognized section and content) Team Status: Active Member Role Status Dates Dr. Aiden Wolfe DO Family Provider Active Dr. Aiden Wolfe DO Primary Care Provider Active Team Status: Active Member Role Status Dates Elisa STANFORD MD Attending Provider Active Start: April 20, 2024 Dr. Aiden Wolfe DO Primary Care Provider Active Start: April 20, 2024 Team Status: Active Member Role Status Dates Elisa STANFORD MD Attending Provider Active Start: May 21, 2024 Team Status: Inactive Member Role Status Dates Elisa STANFORD MD Attending Provider Active Start: June 22, 2024 End: June 22, 2024 Team Status: Inactive Member Role Status Dates Elisa STANFORD MD Attending Provider Active Start: July 20, 2024 End: July 20, 2024 Elisa STANFORD MD Referring Provider Active Start: July 20, 2024 End: July 20, 2024 Team Status: Inactive Member Role Status Dates Elisa STANFORD MD Attending Provider Active Start: August 18, 2024 End: August 18, 2024 Dr. Aiden Wolfe , Primary Care Provider Active Start: August 18, 2024 End: August 18, 2024 INFORMATION SOURCE (unrecogn ized section and content) DATE CREATED AUTHOR 09/21/2023 [facility] ([place]) DATE CREATED AUTHOR AUTHOR'S ORGANIZ ATION 05/07/2024 [facility] DATE CREATED AUTHOR AUTHOR'S ORGANIZ ATION 09/24/2024 [facility] Goals (unrecognized section and content) Goals may be documented in a n alternate section FOR RECORDS PERTAINING TO PATIENTS WHO ARE OR HAVE BEEN ENROLLED IN A CHEMICAL DEPENDENCY/SUBSTANCEABUSE PROGRAM, SOME INFORMATION MAY BE OMITTED. This clinical summary was aggregated from multiple sources. Caution should be exercised in using it in the provision of clinical care. This summary normalizes information from multiple sources, and as a consequence, information in this document may materially change the coding, format and clinical context of patient data. In addition, data may be omitted in some cases. CLINICAL DECISIONS SHOULD BE BASED ON THE PRIMARY CLINICAL RECORDS. [employer] [facility]. provides no warranty or guarantee of the accuracy or completeness of information in this document.
[2024-10-01 08:12] LABS: Absolute Neutrophil Count 4.8 X10^3/uL (2.0-7.7); Basophil# 0.07 X10^3/uL; Basophil% 0.8 % (0-1); Eosinophil# 0.26 X10^3/uL; Eosinophils% 2.8 % (0-5); Hematocrit 33.1 % (37-47); Hemoglobin 10.7 g/dL (12.0-15.0); Lymphocyte % 32.3 % (19-41); Mean Corp Hgb Conc 32.3 g/dL (32-36); Mean Corpuscular Hgb 26.6 pg (27.0-32.0); Mean Corpuscular Volume 82.3 fL (81-99); Monocyte# 1.14 X10^3/uL; Monocyte% 12.3 % (0-10); NRBC Flagged by Analyzer 0 % (0-5); Neutrophil # 4.76 X10^3/uL (2.7-7.7); Neutrophil % 51.2 % (47-70); Platelet Count 295 K/mm3 (150-450); RBC Distribution Width CV 15.4 % (11.6-14.6); RBC Distribution Width SD 45.3 fl (35.1-43.9); Red Blood Count 4.02 M/mm3 (4.2-5.4); White Blood Count 9.3 K/mm3 (4.4-11.0)
[2024-10-01 08:28] LABS: ALB/GLOB Ratio 1.1 RATIO (0.9-2.4); AST(SGOT) 53 U/L (<=31); Alanine Aminotransfer ALT/SGPT 30 U/L (<=34); Alkaline Phosphatase 83 U/L (35-104); Anion Gap 12 (5-15); BUN 13 mg/dL (4-19); BUN/Creat Ratio 17.2 RATIO (10-20); Calcium,Total 10.4 mg/dL (7.6-11.0); Chloride 101 mmol/L (98-108); Creatinine, Serum 0.77 mg/dL (0.70-1.20); EST Glomerular Filtration Rate 84 (>60); Globulin 3.7 g/dL (2.2-4.2); Glucose 111 mg/dL (70-99); Potassium 4.5 mmol/L (3.3-5.1); Protein, Total 7.7 g/dL (5.9-8.4); Sodium Level 138 mmol/L (133-145)
[2024-10-01 08:30] LABS: Valproic Acid (Depakene) Level 77 ug/mL (50-100)
== END ==
LOC: OLS.WCC 05:00
PROVIDERS: PCP Family Medicine; Visit Provider Family Medicine
DX: G93.40 Encephalopathy, unspecified (principal); G40.911 Epilepsy, unspecified, intractable, with status epilepticus
CPT/HCPCS: 80053; 80164; 85025

== ENCOUNTER → 2024-10-09 | Outpatient (REF) | payer MEDICARE, MEDICAID, SELFPAY ==
[2024-10-14 04:07] LABS: Phenobarbital,Serum 5 ug/mL (15-40); Primidone, Serum 5.4 ug/mL (5.0-12.0)
== END ==
LOC: OLS.WCC 05:00
PROVIDERS: PCP Family Medicine; Visit Provider Family Medicine
DX: G40.911 Epilepsy, unspecified, intractable, with status epilepticus (principal)
CPT/HCPCS: 36415; 80184; 80188

== ENCOUNTER → 2024-10-13 | Outpatient (REF) | payer MEDICARE, MEDICAID, SELFPAY ==
[2024-10-13 11:16] LABS: Hematocrit 34.6 % (37-47); Hemoglobin 10.9 g/dL (12.0-15.0); Mean Corp Hgb Conc 31.5 g/dL (32-36); Mean Corpuscular Volume 84.0 fL (81-99); Mean Platelet Vol. 10.3 fl (6.2-12.0); Platelet Count 278 K/mm3 (150-450); RBC Distribution Width CV 15.3 % (11.6-14.6); RBC Distribution Width SD 46.5 fl (35.1-43.9); Red Blood Count 4.12 M/mm3 (4.2-5.4); White Blood Count 10.3 K/mm3 (4.4-11.0)
[2024-10-13 11:24] LABS: AST(SGOT) 58 U/L (<=31); Alanine Aminotransfer ALT/SGPT 28 U/L (<=34); Albumin, Serum 3.9 g/dL (3.4-4.8); Alkaline Phosphatase 81 U/L (35-104); Anion Gap 13 (5-15); BUN 15 mg/dL (4-19); BUN/Creat Ratio 19.4 RATIO (10-20); Calcium,Total 10.8 mg/dL (7.6-11.0); Carbon Dioxide 24.3 mmol/L (21.0-32.0); Chloride 100 mmol/L (98-108); Globulin 3.9 g/dL (2.2-4.2); Glucose 101 mg/dL (70-99); Potassium 4.5 mmol/L (3.3-5.1)
== END ==
LOC: OLS.WCC 05:00
PROVIDERS: PCP Family Medicine; Visit Provider Family Medicine
DX: I10 Essential (primary) hypertension (principal); E78.5 Hyperlipidemia, unspecified
CPT/HCPCS: 36415; 80053; 83036; 85027

== ENCOUNTER → 2024-11-18 05:00 | Outpatient (REF) | payer MEDICARE, MEDICAID, SELFPAY ==
--- OUTSIDE RECORDS SUMMARY | 2024-11-18 05:03 | XMS RPT_ITS | CCD ---
Author Organization [facility] Inform ion Partnership [facility] Care Team Providers Care Supervisor Silvering Department Name Role Phone NIKKI BOWLING BALL MOLDER - ARLINE, FISH James Primary Care Phys ician NIKKI BOWLING BALL MOLDER - CAUSTIC LOADER, FISH James Primary Care U navailable NIKKI BOWLING BALL MOLDER - CAUSTIC LOADER, FISH James Attending U navailable NIKKI BOWLING BALL MOLDER - CAUSTIC LOADER, FISH James Primary Care U leobardo GAMBLE MD, DR ELISA Clinton Attending Unavailable NIKKI BOWLING BALL MOLDER - CAUSTIC LOADER, FISH James Primary Care U leobardo DEAN MD, MARJ Attending Unavailable NIKKI BOWLING BALL MOLDER - CAUSTIC LOADER, FISH James Primary Care U leobardo DEAN MD, MARJ Attending Unavailable NIKKI BOWLING BALL MOLDER - ARLINE, FISH James Primary Care U leobardo LEONARD MD, [facility] Admitting Unavailable DIANNE VAZQUEZ, DR GALVEZ Attending Unavailable ELIJAH CASAREZ, CHARLY Consulting Unavailable JM LIU MD Consulting Unavailable NIKKI BOWLING BALL MOLDER - CAUSTIC LOADER, FISH James Consulting U navailable NIKKI BOWLING BALL MOLDER - CAUSTIC LOADER, FISH James Attending U navailable NIKKI BOWLING BALL MOLDER - CAUSTIC LOADER, FISH James Primary Care U navailable NIKKI BOWLING BALL MOLDER - CAUSTIC LOADER, FISH James Attending U navailable NIKKI BOWLING BALL MOLDER - CAUSTIC LOADER, FISH James Primary Care U navailable NIKKI BOWLING BALL MOLDER - CAUSTIC LOADER, FISH James Attending U navailable NIKKI BOWLING BALL MOLDER - CAUSTIC LOADER, FISH James Primary Care U navailable NIKKI BOWLING BALL MOLDER - CAUSTIC LOADER, FISH Jamse Primary Care U navailable NIKKI BOWLING BALL MOLDER - CAUSTIC LOADER, FISH James Attending U navailable NIKKI BOWLING BALL MOLDER - CAUSTIC LOADER, FISH James Attending U navailable NIKKI BOWLING BALL MOLDER - CAUSTIC LOADER, FISH James Primary Care U navailable NIKKI BOWLING BALL MOLDER - CAUSTIC LOADER, FISH James Attending U navailable NIKKI BOWLING BALL MOLDER - CAUSTIC LOADER, FISH James Primary Care U leobardo HARPER MD, DOTTY Consulting Unavailable NIKKI Dhillon CNP, FISH James Primary Care U leobardo MARQUEZ DO, AIDEN Attending Unavailable HORACIO CASAREZ, JAMEY Consulting Unavailable FISH JORDAN Attending Unavailable JERMAINE CASAREZ, MARJ Attending Unavailable Joel CASAREZ, Elisa Kemp Attending Provider Unavailable Aiden VAZQUEZ, Dr. Wolfe Primary Care Provider Joel CASAREZ, Elisa Kemp Referring Provider Unavailable Joel CASAREZ, Elisa Kemp Attending Provider Unavailable Aiden VAZQUEZ, Dr. Wolfe Primary Care Provider Aiden, Aiden Primary Care Unavailable Maldonado OLS, Elisa K Attending Unavailable Aiden, Aiden Primary Care Unavailable Maldonado OLS, Elisa K Attending Unavailable Aiden, Aiden Primary Care Unavailable Maldonado OLS, Elisa K Attending Unavailable Maldonado OLS, Elisa K Attending Unavailable [place], Aiden Primary Care Unavailable Maldonado OLS, Elisa K Attending Unavailable Aiden, Aiden Primary Care Unavailable Maldonado OLS, Elisa K Attending Unavailable [place], Aiden Primary Care Unavailable Maldonado OLS, Elisa K Attending Unavailable Maldonado OLS, Elisa K Attending Unavailable [place], Aiden Primary Care Unavailable Maldonado OLS, Elisa K Attending Unavailable Aiden, Aiden Primary Care Unavailable Maldonado OLS, Elisa K Attending Unavailable [place], Aiden Primary Care Unavailable Maldonado OLS, Elisa K Attending Unavailable [place], Aiden Primary Care Unavailable Maldonado OLS, Elisa K Attending Unavailable Maldonado OLS, Elisa K Attending Unavailable Maldonado OLS, Elisa K Referring Unavailable Maldonado OLS, Elisa K Attending Unavailable [place], Aiden Primary Care Unavailable Medications Current Medications Medication Drug Class(es) Dates Sig (Normalized) Sig (Original) acetaminophen 650 mg oral tablet (2 sources) Start: 08-12-2023 acetaminophen Dose : 650 mg = 2 tab(s), Oral, q6hWA, PRN Pain, scale 1-10, 0 Refill(s) Start Date: 08/12/23 Status: Ordered amLODIPine 5 mg oral tablet (20 sources) Dihydropyridine Calcium Channel Loyd Start: 06-20-2023 End: 12-17-2023 amLODIPine 5 mg oral tablet Dose : 5 mg = 1 tab(s), Oral, qDay, # 90 tab(s), 1 Refill(s), Pharmacy: [facility], HTN (hypertension), 159, cm, 06/20/23 7:04:00 EST, Height, kg, 06/20/23 7:04:00 EST, Dosing Weight Start Date: 06/20/23 Stop Date: 12/17/23 Status: Ordered Start: 12-20-2022 End: 06-18-2023 amLODIPine 5 mg oral tablet Dose : 5 mg = 1 tab(s), Oral, qDay, # 90 tab(s), 1 Refill(s), Pharmacy: [facility], HTN (hypertension), 160, cm, 12/20/22 7:08:00 EDT, Height, kg, 12/20/22 7:08:00 EDT, Dosing Weight Start Date: 12/20/22 Stop Date: 06/18/23 Status: Ordered Start: 01-30-2016 End: 12-11-2022 amLODIPine 5 mg oral tablet Dose : 5 mg = 1 tab(s), Oral, qDay, # 90 tab(s), 1 Refill(s), Pharmacy: [facility], HTN (hypertension), 160, cm, 06/14/22 16:06:00 EST, [...] cough, # 30 cap(s), 0 Refill(s), Pharmacy: [facility], Acute cough, 159, cm, 05/01/23 14:01:00 EST, Height, kg, 05/01/23 14:01:00 EST, Dosing Weight Start Date: 05/01/23 Status: Ordered Start: 02-24-2022 End: 03-01-2022 Tessalon Perles 100 mg oral capsule Dose [...] use, # 3 cap(s), 4 Refill(s), Pharmacy: [facility], Vitamin D deficiency, 159, cm, 06/20/23 7:04:00 EST, Height, kg, 06/20/23 7:04:00 EST, Dosing Weight Start Date: 06/20/23 Stop Date: 11/17/23 Status: Ordered Start: 12-20-2022 End: 05-19-2023 cholecalciferol 1250 mcg (50 ,000 intl units) oral capsule Dose : 50,000 International_Unit = 1 cap(s), Oral, qmonth, Failed conservative OTC daily use, # 3 cap(s), 4 Refill(s), Pharmacy: [facility], Vitamin D deficiency, 160, cm, 12/20/22 7:08:00 EDT, Height, kg, 12/20/22 7:08:00 EDT, Dosing Weight Start Date: 12/20/22 Stop Date: 05/19/23 Status: Ordered Start: 06-28-2022 End: 05-19-2023 cholecalciferol 1250 mcg (50 ,000 intl units) oral capsule Dose : 50,000 International_Unit = 1 cap(s), Oral, qmonth, Failed conservative OTC daily use, # 3 cap(s), 4 Refill(s), Pharmacy: [facility], Vitamin D deficiency, 160, cm, 12/20/22 7:08:00 EDT, Height, kg, 12/20/22 7:08:00 EDT, Dosing Weight Start Date: 12/20/22 Stop Date: 05/19/23 Status: Ordered Start: 12-07-2021 End: 06-27-2022 cholecalciferol 1250 mcg (50 ,000 intl units) oral capsule Dose : 50,000 International_Unit = 1 cap(s), Oral, qmonth, Failed conservative OTC daily use, # 2 cap(s), 0 Refill(s), Pharmacy: [facility], Vitamin D deficiency, 160, cm, 03/30/22 15:08:00 EST, Height, kg, 03/30/22 15:08:00 EST, Dosing Weight Start Date: 05/28/22 Stop Date: 06/27/22 Status: Ordered Start: 11-24-2020 End: 08-21-2021 cholecalciferol 1250 mcg (50 ,000 intl units) oral capsule Dose : 50,000 International_Unit = 1 cap(s), Oral, qWeek, Failed conservative OTC daily use, # 13 cap(s), 2 Refill(s), Pharmacy: [facility], Vitamin D deficiency, 159, cm, 11/24/20 8:03:00 EDT, Height, kg, 11/24/20 8:03:00 EDT, Dosing Weight Start Date: 11/24/20 Stop Date: 08/21/21 Status: Ordered 1 ml evolocumab 140 mg/ml auto-injector (20 sources) PCSK9 Inhibitor Start: 04-19-2024 inject 1 dose by subcutaneous injection every other week Repatha SureClick 140 mg/mL subcutaneous solution Dose : 140 mg =, Subcutaneous, q2wk, # 2 mL, 12 Refill(s), Pharmacy: [facility], 159, cm, 08/02/23 9:46:00 EDT, Height, kg, 08/02/23 9:46:00 EDT, Dosing Weight Start Date: 08/02/23 Status: Ordered Start: 02-04-2023 inject 1 dose by sub cutaneous injection every other week Repatha SureClick 140 mg/mL subcutaneous solution Dose : 140 mg =, Subcutaneous, q2wk, # 2 mL, 0 Refill(s), Pharmacy: [facility], 160, cm, 12/20/22 7:08:00 EDT, Height, kg, 12/20/22 7:08:00 EDT, Dosing Weight Start Date: 02/04/23 Status: Ordered Start: 10-04-2022 inject 1 dose by sub cutaneous injection every other week Repatha SureClick 140 mg/mL subcutaneous solution Dose : 140 mg =, Subcutaneous, q2wk, # 1 mL, 3 Refill(s), Pharmacy: [facility], 160, cm, 06/14/22 16:06:00 EST, Height, kg, 06/14/22 16:06:00 EST, Dosing Weight Start Date: 10/04/22 Status: Ordered Start: 12-20-2021 inject 1 dose by sub cutaneous injection every other week Repatha SureClick 140 mg/mL subcutaneous solution Dose : 140 mg =, Subcutaneous, q2wk, # 3 mL, 11 Refill(s), Pharmacy: [facility], 160, cm, 12/20/21 10:10:00 EDT, Height, kg, 12/20/21 10:10:00 EDT, Dosing Weight Start Date: 12/20/21 Status: Ordered Start: 11-28-2021 inject 1 dose by sub cutaneous injection every other week Repatha SureClick 140 mg/mL subcutaneous solution Dose : 140 mg =, Subcutaneous, q2wk, # 2 kit(s), 0 Refill(s), Pharmacy: [facility], 167, cm, 06/02/21 8:18:00 EST, Height, kg, 06/02/21 8:18:00 EST, Dosing Weight Start Date: 11/28/21 Status: Ordered hydroCHLOROthiazide 25 mg oral tablet (19 sources) Thiazide Diuretic Start: 06-20-2023 End: 12-17-2023 hydroCHLOROthiazide 25 mg oral tablet Dose : 25 mg = 1 tab(s), Oral, qDay, # 90 tab(s), 1 Refill(s), Pharmacy: [facility], HTN (hypertension), 159, cm, 06/20/23 7:04:00 EST, Height, kg, 06/20/23 7:04:00 EST, Dosing Weight Start Date: 06/20/23 Stop Date: 12/17/23 Status: Ordered Start: 12-20-2022 End: 06-18-2023 hydroCHLOROthiazide 25 mg or al tablet Dose : 25 mg = 1 tab(s), Oral, qDay, # 90 tab(s), 1 Refill(s), Pharmacy: [facility], HTN (hypertension), 160, cm, 12/20/22 7:08:00 EDT, Height, kg, 12/20/22 7:08:00 EDT, Dosing Weight Start Date: 12/20/22 Stop Date: 06/18/23 Status: Ordered Start: 06-14-2022 End: 12-11-2022 hydroCHLOROthiazide 25 mg or al tablet Dose : 25 mg = 1 tab(s), Oral, qDay, # 90 tab(s), 1 Refill(s), Pharmacy: [facility], HTN (hypertension), 160, cm, 06/14/22 16:06:00 EST, Height, kg, 06/14/22 16:06:00 EST, Dosing Weight Start Date: 06/14/22 Stop Date: 12/11/22 Status: Ordered Start: 12-07-2021 End: 06-05-2022 hydroCHLOROthiazide 25 mg or al tablet Dose : 25 mg = 1 tab(s), Oral, qDay, # 90 tab(s), 1 Refill(s), Pharmacy: [facility], HTN (hypertension), 160, cm, 12/07/21 8:16:00 EDT, Height, kg, 12/07/21 8:16:00 EDT, Dosing Weight Start Date: 12/07/21 Stop Date: 06/05/22 Status: Ordered Start: 11-24-2020 End: 08-21-2021 hydroCHLOROthiazide 25 mg or al tablet Dose : 25 mg = 1 tab(s), Oral, qDay, # 90 tab(s), 2 Refill(s), Pharmacy: [facility], HTN (hypertension), 159, cm, 11/24/20 [...] / neomycin 3.5 mg/ml / polymyxin b [id number] unt/ml otic suspension (1 source) Aminoglycoside Antibacterial, Polymyxin-class Antibacterial, Corticosteroid Start: 02-27-2022 End: 03-06-2022 hydrocortisone/neomycin/poly myxi n B 1%-0.35%-10,000 units/mL otic suspension Dose = 4 drop(s), Ear, left, TID, shake well before using, X 7 day(s), # 10 mL, 0 Refill(s), Pharmacy: [facility], Acute otitis media with perforation: LEFT ONLY, [...] qDay, # 30 tab(s), 1 Refill(s), Pharmacy: [facility], Seasonal allergies Seasonal asthma, 160, cm, 11/06/22 8:03:00 EDT, Height, kg, 11/06/22 7:59:00 EDT, Dosing Weight Start Date: 11/06/22 Status: Ordered losartan potassium 100 mg oral tablet (20 sources) Angiotensin 2 Receptor Loyd Start: 06-20-2023 End: 12-17-2023 losartan 100 mg oral tablet Dose : 100 mg = 1 tab(s), Oral, qDay, # 90 tab(s), 1 Refill(s), Pharmacy: [facility], HTN (hypertension), 159, cm, 06/20/23 7:04:00 EST, Height, kg, 06/20/23 7:04:00 EST, Dosing Weight Start Date: 06/20/23 Stop Date: 12/17/23 Status: Ordered Start: 12-20-2022 End: 06-18-2023 losartan 100 mg oral tablet Dose : 100 mg = 1 tab(s), Oral, qDay, # 90 tab(s), 1 Refill(s), Pharmacy: [facility], HTN (hypertension), 160, cm, 12/20/22 7:08:00 EDT, Height, kg, 12/20/22 7:08:00 EDT, Dosing Weight Start Date: 12/20/22 Stop Date: 06/18/23 Status: Ordered Start: 06-14-2022 End: 12-11-2022 losartan 100 mg oral tablet Dose : 100 mg = 1 tab(s), Oral, qDay, # 90 tab(s), 1 Refill(s), Pharmacy: [facility], HTN (hypertension), 160, cm, 06/14/22 16:06:00 EST, Height, kg, 06/14/22 16:06:00 EST, Dosing Weight Start Date: 06/14/22 Stop Date: 12/11/22 Status: Ordered Start: 12-07-2021 End: 06-05-2022 losartan 100 mg oral tablet Dose : 100 mg = 1 tab(s), Oral, qDay, # 90 tab(s), 1 Refill(s), Pharmacy: [facility], HTN (hypertension), 160, cm, 12/07/21 8:16:00 EDT, Height, kg, 12/07/21 8:16:00 EDT, Dosing Weight Start Date: 12/07/21 Stop Date: 06/05/22 Status: Ordered Start: 11-24-2020 End: 08-21-2021 losartan 100 mg oral tablet Dose : 100 mg = 1 tab(s), Oral, qDay, # 90 tab(s), 2 Refill(s), Pharmacy: [facility], HTN (hypertension), 159, cm, 11/24/20 [...] q2wk, # 2 kit(s), 11 Refill(s), Pharmacy: [facility], 160, cm, 01/09/21 9:17:00 EDT, Height, kg, 01/09/21 9:17:00 EDT, Dosing Weight Start Date: 01/09/21 Status: Ordered Spacer, inhaler (10 sources) Start: 11-06-2022 Spacer, inhale r See Instructions, use as directed Pt has developmental disorder and spacer required to insure proper use of inhaler., # 1 EA, 0 Refill(s), Pharmacy: [facility], Seasonal asthma Developmentally disabled, 160, [...] q6h, # 18 gram(s), 1 Refill(s), Pharmacy: [facility], Seasonal asthma Developmentally disabled, 159, cm, 06/20/23 7:04:00 EST, Height, kg, 06/20/23 7:04:00 EST, Dosing Weight Start Date: 06/20/23 Stop Date: 08/19/23 Status: Ordered Start: 12-20-2022 End: 02-18-2023 take 2 puff(s) by inhalation every six hours albuterol MDI (90 mcg/inh) CFC free inhalation aerosol 2 puff(s), Inhalation, q6h, # 18 gram(s), 1 Refill(s), Pharmacy: [facility], Seasonal asthma Developmentally disabled, 160, cm, 12/20/22 7:08:00 EDT, Height, kg, 12/20/22 7:08:00 EDT, Dosing Weight Start Date: 12/20/22 Stop Date: 02/18/23 Status: Ordered Start: 11-06-2022 End: 01-05-2023 take 2 puff(s) by inhalation every six hours albuterol MDI (90 mcg/inh) CFC free inhalation aerosol 2 puff(s), Inhalation, q6h, # 18 gram(s), 1 Refill(s), Pharmacy: [facility], Seasonal asthma Developmentally disabled, 160, cm, 11/06/22 [...] qHS, # 30 tab(s), 1 Refill(s), Pharmacy: [facility], Seasonal allergies, 159, cm, 11/24/20 8:03:00 EDT, Height, kg, 11/24/20 8:03:00 EDT, Dosing Weight Start Date: 11/24/20 Stop Date: 01/23/21 Status: Ordered montelukast 10 mg oral tablet (14 sources) Leukotriene Receptor Antagonist Start: 11-06-2022 End: 01-05-2023 Singulair 10 mg oral tablet Dose : 10 mg = 1 tab(s), Oral, qDay, # 30 tab(s), 1 Refill(s), Pharmacy: [facility], Seasonal allergies Seasonal asthma, 160, cm, 11/06/22 8:03:00 EDT, Height, kg, 11/06/22 7:59:00 EDT, Dosing Weight Start Date: 11/06/22 Stop Date: 01/05/23 Status: Ordered Start: 06-14-2022 Singulair 10 m g oral tablet Dose : 10 mg = 1 tab(s), Oral, qDay, # 30 tab(s), 1 Refill(s), Pharmacy: [facility], Seasonal asthma, 160, cm, 06/14/22 16:06:00 EST, Height, kg, 06/14/22 16:06:00 EST, Dosing Weight Start Date: 06/14/22 Status: Ordered Start: 12-07-2021 Singulair 10 m g oral tablet Dose : 10 mg = 1 tab(s), Oral, qDay, # 30 tab(s), 1 Refill(s), Pharmacy: [facility], Seasonal asthma, 160, cm, 12/07/21 8:16:00 EDT, [...] qDay, # 90 tab(s), 1 Refill(s), Pharmacy: [facility], Hyperlipidemia LDL goal Start Date: 12/20/22 Stop Date: 06/18/23 Status: Ordered Start: 06-14-2022 End: 12-11-2022 rosuvastatin 10 mg oral tabl et Dose : 10 mg = 1 tab(s), Oral, qDay, # 90 tab(s), 1 Refill(s), Pharmacy: [facility], Hyperlipidemia LDL goal Start Date: 06/14/22 Stop Date: 12/11/22 Status: Ordered Start: 12-07-2021 End: 06-05-2022 rosuvastatin 10 mg oral tabl et Dose : 10 mg = 1 tab(s), Oral, qDay, # 90 tab(s), 1 Refill(s), Pharmacy: [facility], Hyperlipidemia LDL goal Start Date: 12/07/21 Stop Date: 06/05/22 Status: Ordered Start: 11-24-2020 End: 08-21-2021 rosuvastatin 10 mg oral tabl et Dose : 10 mg = 1 tab(s), Oral, qDay, # 90 tab(s), 2 Refill(s), Pharmacy: [facility], Hyperlipidemia LDL goal Start Date: 11/24/20 [...] Translations: [Anemia in chronic kidney disease] Onset: 10-23-2024 Chronic Deficiency and other anemia (15 sources) [...] disease, or unspecified chronic kidney disease] Onset: 10-23-2024 Chronic Neoplasms of unspecified nature or uncertain behavior (9 sources) Thrombocytosis 11-24-2020 Chronic Nutritional deficiencies (20 sources) Vitamin D deficiency; Translations: [Vitamin D deficiency, unspecified] Onset: 01-23-2024 11-10-2019 Chronic Osteoporosis (20 sources) Osteoporosis 11-10-2019 Chronic Other aftercare (2 sources) Other watermelon inspector (current) drug therapy; Translations: [Other watermelon inspector (current) drug therapy] Onset: 02-06-2024 Episodic Other and ill-defined cerebrovascular disease (2 [...] Translations: [Aphasia] Chronic Other nervous system disorders (2 sources) Encephalopathy, unspecified; Translations: [Encephalopathy, unspecified] Onset: 10-23-2024 Chronic Other nervous system disorders (1 source) [...] disability 02-27-2022 Unclassified (3 sources) MRDD 01-30-2016 Urinary tract infections (1 source) Urinary tract infectious disease; Translations: [Urinary tract infection, site not specified] Onset: 03-18-2021 Episodic Past or Other Problems Problem Classification Problem Date Documented Da te Episodic/Chronic Diabetes mellitus without complication (14 sources) Impaired fasting glycemia; Translations: [Impaired fasting glucose] Onset: 06-13-2023 06-14-2022 Episodic Other connective tissue disease (1 source) Muscle wasting and atrophy, not elsewhere classified, left lower leg; Translations: [Muscle wasting and atrophy, not elsewhere classified, left lower leg] Onset: 01-23-2024 Episodic Results Test Name Value Interpretation Reference Range Facility [id number] 10-14-2024 PHENobarbital [Mass/Vol] 5 ug/mL Abnormal [facility] Comment on above: Order Comment: 120.1 Result Comment: Dete ction Limit = 3 Performed at: - [facility] [id number] Product Introduction Manager: Daniel Heredia MD, Phone: [phone] Performed at: [facility] [id number] Product Introduction Manager: Crescencio Metcalf PhD, Phone: [phone] Performed By: #### L 506.1000, L500.4050, L100.0500, L501.8100, L500.4100 #### [facility] [address] [place], [place], [id number] Mysoline (Primidone)on 10-14 PHENOBARB,SERUM 5 ug/mL Low [facility] Comment on above: Order Comment: 120.1 Result Comment: Dete ction Limit = 3 Performed By: #### L 506.1000, L500.4050, L100.0500, L501.8100, L500.4100 #### [facility] [address] [facility] [address] [place], [address] (620) PRIMIDONE,SERUM 5.4 ug/mL Normal 5.0-12.0 [facility] Comment on above: Order Comment: 120.1 Result Comment: Dete ction Limit = 2.5 <2.5 indicates None Detected Performed By: #### L 506.1000, L500.4050, L100.0500, L501.8100, L500.4100 #### [facility] [address] [place], [address] CBC-Complete Blood Cnt No Di ffon 10-13-2024 Erythrocyte distribution width (RBC) [Ratio] 15.3 % High 11.6-14.6 [facility] Comment on above: Order Comment: 120.1 Performed By: #### L 506.1000, L500.4050, L100.0500, L501.8100, L500.4100 #### [facility] [address] [place], [address] Hematocrit (Bld) [Volume fraction] 34.6 % Low 37-47 [facility] Comment on above: Order Comment: 120.1 Performed By: #### L 506.1000, L500.4050, L100.0500, L501.8100, L500.4100 #### [facility] [address] [place], [address] Hemoglobin (Bld) [Mass/Vol] 10.9 g/dL Low 12.0-15.0 [facility] Comment on above: Order Comment: 120.1 Performed By: #### L 506.1000, L500.4050, L100.0500, L501.8100, L500.4100 #### [facility] [address] [place], [address] MCH (RBC) [Entitic mass] 26.5 pg Low 27.0-32.0 [facility] Comment on above: Order Comment: 120.1 Performed By: #### L 506.1000, L500.4050, L100.0500, L501.8100, L500.4100 #### [facility] [address] [place], [address] MCHC (RBC) [Mass/Vol] 31.5 g/dL Low 32-36 [facility] Comment on above: Order Comment: 120.1 Performed By: #### L 506.1000, L500.4050, L100.0500, L501.8100, L500.4100 #### [facility] [address] [place], [address] MCV (RBC) [Entitic vol] 84.0 fL Normal 81-[address] [facility] Comment on above: Order Comment: 120.1 Performed By: #### L 506.1000, [id number], L100.0500, L501.8100, L500.4100 #### [facility] [address] [place], [address] Platelet mean volume (Bld) [Entitic vol] 10.3 fL Normal 6.2-12.0 [facility] Comment on above: Order Comment: 120.1 Performed By: #### L 506.1000, L500.4050, L100.0500, L501.8100, L500.4100 #### [facility] [address] [place], [address] Platelets (Bld) [#/Vol] 278 10*3/uL Normal 150-450 [facility] Comment on above: Order Comment: 120.1 Performed By: #### L 506.1000, L500.4050, L100.0500, L501.8100, L500.4100 #### [facility] [address] [place], [address] RBC (Bld) [#/Vol] 4.12 10*6/uL Low 4.2-5.4 [facility] Comment on above: Order Comment: 120.1 Performed By: #### L 506.1000, L500.4050, L100.0500, L501.8100, L500.4100 #### [facility] [address] [place], [address] RDW SD 46.5 fl High 35.1-43.9 [facility] Comment on above: Order Comment: 120.1 Performed By: #### L 506.1000, L500.4050, L100.0500, L501.8100, L500.4100 #### [facility] [address] [place], [address] WBC (Bld) [#/Vol] 10.3 10*3/uL Normal 4.4-11.0 [facility] Comment on above: Order Comment: 120.1 Performed By: #### L 506.1000, L500.4050, L100.0500, L501.8100, L500.4100 #### [facility] [address] [place], [address] Comprehensive Metabolic Prof mion 10-13-2024 Albumin [Mass/Vol] 3.9 g/dL Normal 3.4-4.8 [facility] Comment on above: Order Comment: 120.1 Performed By: #### L 506.1000, L500.4050, L100.0500, L501.8100, L500.4100 #### [facility] [address] [place], [address] Albumin/Globulin [Mass ratio] 1.0 {ratio} Normal 0.9-2.4 [facility] Comment on above: Order Comment: 120.1 Performed By: #### L 506.1000, L500.4050, L100.0500, L501.8100, L500.4100 #### [facility] [address] [place], [address] ALK PHOS 81 U/L Normal 35-104 [facility] Comment on above: Order Comment: 120.1 Performed By: #### L 506.1000, L500.4050, L100.0500, L501.8100, L500.4100 #### [facility] [address] [place], [address] ALT [Catalytic activity/Vol] 28 U/L Normal <=34 [facility] Comment on above: Order Comment: 120.1 Performed By: #### L 506.1000, L500.4050, L100.0500, L501.8100, L500.4100 #### [facility] [address] [place], [address] AST [Catalytic activity/Vol] 58 U/L High <=31 [facility] Comment on above: Order Comment: 120.1 Performed By: #### L 506.1000, L500.4050, L100.0500, L501.8100, L500.4100 #### [facility] [address] [place], [address] Bilirubin [Mass/Vol] 0.23 mg/dL Normal 0.00-1.30 [facility] [place] Comment on above: Order Comment: 120.1 Performed By: #### L 506.1000, L500.4050, L100.0500, L501.8100, L500.4100 #### [facility] [address] [place], [address] BUN/CRE 19.4 RATIO Normal 10-20 [facility] Comment on above: Order Comment: 120.1 Performed By: #### L 506.1000, L500.4050, L100.0500, L501.8100, L500.4100 #### [facility] [address] [place], [address] Calcium [Mass/Vol] 10.8 mg/dL Normal 7.6-11.0 [facility] Comment on above: Order Comment: 120.1 Performed By: #### L 506.1000, L500.4050, L100.0500, L501.8100, L500.4100 #### [facility] [address] [place], [address] Chloride [Moles/Vol] 100 mmol/L Normal 98-108 [facility] [place] Comment on above: Order Comment: 120.1 Performed By: #### L 506.1000, L500.4050, L100.0500, L501.8100, L500.4100 #### [facility] [address] [place], [address] CO2 [Moles/Vol] 24.3 mmol/L Normal 21.0-32.0 [facility] Comment on above: Order Comment: 120.1 Performed By: #### L 506.1000, L500.4050, L100.0500, L501.8100, L500.4100 #### [facility] [address] [place], [address] Creatinine [Mass/Vol] 0.76 mg/dL Normal 0.70-1.20 [facility] Comment on above: Order Comment: 120.1 Performed By: #### L 506.1000, L500.4050, L100.0500, L501.8100, L500.4100 #### [facility] [address] [place], [address] GAP 13 Normal 5-15 [facility] Comment on above: Order Comment: 120.1 Performed By: #### L 506.1000, L500.4050, L100.0500, L501.8100, L500.4100 #### [facility] [address] [place], [address] GFR/1.73 sq M.predicted among non-blacks MDRD (S/P/Bld) [Vol rate/Area] 86 mL/min/{1.73_m2} Normal >60 [facility] Comment on above: Order Comment: 120.1 Result Comment: mL/m in/1.73m2 CKD-EPI Creatinine Equation (2020) Performed By: #### L 506.1000, L500.4050, L100.0500, L501.8100, L500.4100 #### [facility] [address] [place], [address] Globulin (S) [Mass/Vol] 3.9 g/dL Normal 2.2-4.2 [facility] Comment on above: Order Comment: 120.1 Performed By: #### L 506.1000, L500.4050, L100.0500, L501.8100, L500.4100 #### [facility] [address] [place], [address] Glucose [Mass/Vol] 101 mg/dL High 70-99 [facility] Comment on above: Order Comment: 120.1 Performed By: #### L 506.1000, L500.4050, L100.0500, L501.8100, L500.4100 #### [facility] [address] [place], [address] Potassium [Moles/Vol] 4.5 mmol/L Normal 3.3-5.1 [facility] Comment on above: Order Comment: 120.1 Performed By: #### L 506.1000, L500.4050, L100.0500, L501.8100, L500.4100 #### [facility] [address] [place], [address] Sodium [Moles/Vol] 138 mmol/L Normal 133-145 [facility] Comment on above: Order Comment: 120.1 Performed By: #### L 506.1000, L500.4050, L100.0500, L501.8100, L500.4100 #### [facility] [address] [place], [address] T PROT 7.8 g/dL Normal 5.9-8.4 [facility] Comment on above: Order Comment: 120.1 Performed By: #### L 506.1000, L500.4050, L100.0500, L501.8100, L500.4100 #### [facility] [address] [place], [address] Urea nitrogen [Mass/Vol] 15 mg/dL Normal 4-19 [facility] Comment on above: Order Comment: 120.1 Performed By: #### L 506.1000, L500.4050, L100.0500, L501.8100, L500.4100 #### [facility] [address] [place], [place], [address] Hemoglobin A1con 10-13-2024 HbA1c (Bld) [Mass fraction] 6.8 % High <=5.6 [facility] Comment on above: Order Comment: 120.1 Result Comment: Norm al < 5.7 % Prediabetic 5.7 - 6.4 % Diabetic >or= 6.5 % Please note range changes. Performed By: #### L 506.1000, L500.4050, L100.0500, L501.8100, L500.4100 #### [facility] [address] [place], [place], [address] [id number] 10-06-2024 [facility] Misc. COMMENT Normal . [facility] Comment on above: Order Comment: 120.1 Result Comment: Test Ordered: [id number] Lacosamide Test(s) 185160-[id number] was developed and its performance characteristics determined by [employer]. It has not been cleared or approved by the Food and Drug Administration. Lacosamide 6.3 ug/mL Reference Range: 5.0-10.0 Limit of Detection 0.5 Mean plasma concentrations following maintenance dose 200 mg/day 4.99 +/- 2.51 ug/mL 400 mg/day 9.35 +/- 4.22 ug/mL 600 mg/day 12.46 +/- 5.60 ug/mL Performed at: [facility] [address] [id number] Product Introduction Manager: Daniel Heredia MD, Phone: [phone] Performed at: [facility] [address] [id number] Product Introduction Manager: Crescencio Metcalf PhD, Phone: [phone] Performed By: #### L 506.1000, L500.4050, L100.0500, L501.8100, L500.4100 #### [facility] [address] [place], [address] CBC W/Diff, Automatedon 06- Absolute Lymph 3.00 X10 3/uL Normal 0.83-4.51 [facility] Comment on above: Order Comment: 120.1 Performed By: #### L 506.1000, L500.4050, L100.0500, L501.8100, L500.4100 #### [facility] [address] [place], [address] Absolute Neut 4.8 X10 3/uL Normal 2.0-7.7 [facility] Comment on above: Order Comment: 120.1 Performed By: #### L 506.1000, L500.4050, L100.0500, L501.8100, L500.4100 #### [facility] [address] [place], [address] Basophils/100 WBC (Bld) 0.8 % Normal 0-[address] [facility] Comment on above: Order Comment: 120.1 Performed By: #### L 506.1000, L500.4050, L100.0500, L501.8100, L500.4100 #### [facility] [address] [place], [address] Eosinophils/100 WBC (Bld) 2.8 % Normal 0-5 [facility] Comment on above: Order Comment: 120.1 Performed By: #### L 506.1000, L500.4050, L100.0500, L501.8100, L500.4100 #### [facility] [address] [place], [address] Erythrocyte distribution width (RBC) [Ratio] 15.4 % High 11.6-14.6 [facility] Comment on above: Order Comment: 120.1 Performed By: #### L 506.1000, L500.4050, L100.0500, L501.8100, L500.4100 #### [facility] [address] [place], [address] Hematocrit (Bld) [Volume fraction] 33.1 % Low 37-47 [facility] Comment on above: Order Comment: 120.1 Performed By: #### L 506.1000, L500.4050, L100.0500, L501.8100, L500.4100 #### [facility] [address] [place], [address] Hemoglobin (Bld) [Mass/Vol] 10.7 g/dL Low 12.0-15.0 [facility] Comment on above: Order Comment: 120.1 Performed By: #### L 506.1000, L500.4050, L100.0500, L501.8100, L500.4100 #### [facility] [address] [place], [address] IG% 0.600 Normal 0.0-0.9 [facility] Comment on above: Order Comment: 120.1 Result Comment: IG% - Immature Granulocytes (promyelocytes, myelocytes and metamyelocytes) > 1% indicates that a LEFT SHIFT is Present. Performed By: #### L 506.1000, L500.4050, L100.0500, L501.8100, L500.4100 #### [facility] [address] [place], [address] Lymphocytes/100 WBC (Bld) 32.3 % Normal 19-41 [facility] Comment on above: Order Comment: 120.1 Performed By: #### L 506.1000, L500.4050, L100.0500, L501.8100, L500.4100 #### [facility] [address] [place], [address] MCH (RBC) [Entitic mass] 26.6 pg Low 27.0-32.0 [facility] Comment on above: Order Comment: 120.1 Performed By: #### L 506.1000, L500.4050, L100.0500, L501.8100, L500.4100 #### [facility] [address] [place], [address] MCHC (RBC) [Mass/Vol] 32.3 g/dL Normal 32-36 [facility] Comment on above: Order Comment: 120.1 Performed By: #### L 506.1000, L500.4050, L100.0500, L501.8100, L500.4100 #### [facility] [address] [place], [address] MCV (RBC) [Entitic vol] 82.3 fL Normal 81-99 [facility] Comment on above: Order Comment: 120.1 Performed By: #### L 506.1000, L500.4050, L100.0500, L501.8100, L500.4100 #### [facility] [address] [place], [address] Monocytes/100 WBC (Bld) 12.3 % High 0-10 [facility] Comment on above: Order Comment: 120.1 Performed By: #### L 506.1000, L500.4050, L100.0500, L501.8100, L500.4100 #### [facility] [address] [place], [address] Neutrophils/100 WBC (Bld) 51.2 % Normal 47-70 [facility] Comment on above: Order Comment: 120.1 Performed By: #### L 506.1000, L500.4050, L100.0500, L501.8100, L500.4100 #### [facility] [address] [place], [address] Nucleated RBC (Bld) [#/Vol] 0 10*3/uL Normal 0-5 [facility] Comment on above: Order Comment: 120.1 Performed By: #### L 506.1000, L500.4050, L100.0500, L501.8100, L500.4100 #### [facility] [address] [place], [address] Platelet mean volume (Bld) [Entitic vol] 10.0 fL Normal 6.2-12.0 [facility] Comment on above: Order Comment: 120.1 Performed By: #### L 506.1000, L500.4050, L100.0500, L501.8100, L500.4100 #### [facility] [address] [place], [address] Platelets (Bld) [#/Vol] 295 10*3/uL Normal 150-450 [facility] Comment on above: Order Comment: 120.1 Performed By: #### L 506.1000, L500.4050, L100.0500, L501.8100, L500.4100 #### [facility] [address] [place], [address] RBC (Bld) [#/Vol] 4.02 10*6/uL Low 4.2-5.4 [facility] Comment on above: Order Comment: 120.1 Performed By: #### L 506.1000, L500.4050, L100.0500, L501.8100, L500.4100 #### [facility] [address] [place], [address] RDW SD 45.3 fl High 35.1-43.9 [facility] Comment on above: Order Comment: 120.1 Performed By: #### L 506.1000, L500.4050, L100.0500, L501.8100, L500.4100 #### [facility] [address] [place], [address] WBC (Bld) [#/Vol] 9.3 10*3/uL Normal 4.4-11.0 [facility] Comment on above: Order Comment: 120.1 Performed By: #### L 506.1000, L500.4050, L100.0500, L501.8100, L500.4100 #### [facility] [address] [place], [address] Comprehensive Metabolic Prof ilon 10-01-2024 Albumin [Mass/Vol] 4.0 g/dL Normal 3.4-4.8 [facility] Comment on above: Order Comment: 120.1 Performed By: #### L 506.1000, L500.4050, L100.0500, L501.8100, L500.4100 #### [facility] [address] [place], [address] Albumin/Globulin [Mass ratio] 1.1 {ratio} Normal 0.9-2.4 [facility] Comment on above: Order Comment: 120.1 Performed By: #### L 506.1000, L500.4050, L100.0500, L501.8100, L500.4100 #### [facility] [address] [place], [address] ALK PHOS 83 U/L Normal 35-104 [facility] Comment on above: Order Comment: 120.1 Performed By: #### L 506.1000, L500.4050, L100.0500, L501.8100, L500.4100 #### [facility] [address] [place], [address] ALT [Catalytic activity/Vol] 30 U/L Normal <=34 [facility] Comment on above: Order Comment: 120.1 Performed By: #### L 506.1000, L500.4050, L100.0500, L501.8100, L500.4100 #### [facility] [address] [place], [address] AST [Catalytic activity/Vol] 53 U/L High <=31 [facility] Comment on above: Order Comment: 120.1 Performed By: #### L 506.1000, L500.4050, L100.0500, L501.8100, L500.4100 #### [facility] [address] [place], [address] Bilirubin [Mass/Vol] 0.20 mg/dL Normal 0.00-1.30 [facility] [place] Comment on above: Order Comment: 120.1 Performed By: #### L 506.1000, L500.4050, L100.0500, L501.8100, L500.4100 #### [facility] [address] [place], [address] BUN/CRE 17.2 RATIO Normal 10-20 [facility] Comment on above: Order Comment: 120.1 Performed By: #### L 506.1000, L500.4050, L100.0500, L501.8100, L500.4100 #### [facility] [address] [place], [address] Calcium [Mass/Vol] 10.4 mg/dL Normal 7.6-11.0 [facility] Comment on above: Order Comment: 120.1 Performed By: #### L 506.1000, L500.4050, L100.0500, L501.8100, L500.4100 #### [facility] [address] [place], [address] Chloride [Moles/Vol] 101 mmol/L Normal 98-108 [facility] Comment on above: Order Comment: 120.1 Performed By: #### L 506.1000, L500.4050, L100.0500, L501.8100, L500.4100 #### [facility] [address] [place], [address] CO2 [Moles/Vol] 26.0 mmol/L Normal 21.0-32.0 [facility] Comment on above: Order Comment: 120.1 Performed By: #### L 506.1000, L500.4050, L100.0500, L501.8100, L500.4100 #### [facility] [address] [place], [address] Creatinine [Mass/Vol] 0.77 mg/dL Normal 0.70-1.20 [facility] Comment on above: Order Comment: 120.1 Performed By: #### L 506.1000, L500.4050, L100.0500, L501.8100, L500.4100 #### [facility] [address] [place], [address] GAP 12 Normal 5-15 [facility] Comment on above: Order Comment: 120.1 Performed By: #### L 506.1000, L500.4050, L100.0500, L501.8100, L500.4100 #### [facility] [address] [place], [address] GFR/1.73 sq M.predicted among non-blacks MDRD (S/P/Bld) [Vol rate/Area] 84 mL/min/{1.73_m2} Normal >60 [facility] Comment on above: Order Comment: 120.1 Result Comment: mL/m in/1.73m2 CKD-EPI Creatinine Equation (2020) Performed By: #### L 506.1000, L500.4050, L100.0500, L501.8100, L500.4100 #### [facility] [address] [place], [address] Globulin (S) [Mass/Vol] 3.7 g/dL Normal 2.2-4.2 [facility] Comment on above: Order Comment: 120.1 Performed By: #### L 506.1000, L500.4050, L100.0500, L501.8100, L500.4100 #### [facility] [address] [place], [address] Glucose [Mass/Vol] 111 mg/dL High 70-99 [facility] Comment on above: Order Comment: 120.1 Performed By: #### L 506.1000, L500.4050, L100.0500, L501.8100, L500.4100 #### [facility] [address] [place], [address] Potassium [Moles/Vol] 4.5 mmol/L Normal 3.3-5.1 [facility] Comment on above: Order Comment: 120.1 Performed By: #### L 506.1000, L500.4050, L100.0500, L501.8100, L500.4100 #### [facility] [address] [place], [address] Sodium [Moles/Vol] 138 mmol/L Normal 133-145 [facility] Comment on above: Order Comment: 120.1 Performed By: #### L 506.1000, L500.4050, L100.0500, L501.8100, L500.4100 #### [facility] [address] [place], [address] T PROT 7.7 g/dL Normal 5.9-8.4 [facility] Comment on above: Order Comment: 120.1 Performed By: #### L 506.1000, L500.4050, L100.0500, L501.8100, L500.4100 #### [facility] [address] [place], [address] Urea nitrogen [Mass/Vol] 13 mg/dL Normal 4-19 [facility] Comment on above: Order Comment: 120.1 Performed By: #### L 506.1000, L500.4050, L100.0500, L501.8100, L500.4100 #### [facility] [address] [place], [address] Valproic Acid (Depakene) Lev alpa 10-01-2024 VALPROIC ACID 77 ug/mL Normal 50-100 [facility] Comment on above: Order Comment: 120.1 Result Comment: Valp roic Acid concentrations >100 ug/mL are potentially toxic. Performed By: #### L 506.1000, L500.4050, L100.0500, L501.8100, L500.4100 #### [facility] [address] [place], [address] Anion gap in Serum or Plasma Ordered By: Elisa Maldonado on 08-18-2024 Anion gap [Moles/Vol] 13 mmol/L 5-15 [facility] Automated blood erythrocyte countOrdered By: Elisa Maldonado on 08-18-2024 RBC (Bld) [#/Vol] 4.09 10*6/uL Low 4.2-5.4 [facility] Comment on above: Order Comment: 120.1 Performed By: #### L 506.1000, L500.4050, L100.0500, L501.8100, L500.4100 #### [facility] [address] [place], [address] Automated blood hematocrit ( percentage)Ordered By: Elisa Maldonado on 08-18-2024 Hematocrit (Bld) [Volume fraction] 33.5 % Low 37-47 [facility] Comment on above: Order Comment: 120.1 Performed By: #### L 506.1000, L500.4050, L100.0500, L501.8100, L500.4100 #### [facility] [address] [place], [address] BUN/creatinine ratioOrdered By: Elisa Maldonado on 08-18-2024 Urea nitrogen/Creatinine [Mass ratio] 20.2 mg/mg High 10-20 [facility] Bilirubin, totalOrdered By: Elisa Maldonado on 08-18-2024 Bilirubin [Mass/Vol] 0.23 mg/dL Normal 0.00-1.30 [facility] Comment on above: Order Comment: 120.1 Performed By: #### L 506.1000, L500.4050, L100.0500, L501.8100, L500.4100 #### [facility] [address] [facility] [address] CBC-Complete Blood Cnt No Di ffon 08-18-2024 RDW SD 44.9 fl High 35.1-43.9 [facility] Comment on above: Order Comment: 120.1 Performed By: #### L 506.1000, L500.4050, L100.0500, L501.8100, L500.4100 #### [facility] [address] [place], [address] Carbon dioxide, total [Moles /volume] in Central venous bloodOrdered By: Elisa Maldonado on 08-18-2024 CO2 [Moles/Vol] 24.0 mmol/L Normal 21.0-32.0 [facility] Comment on above: Order Comment: 120.1 Performed By: #### L 506.1000, L500.4050, L100.0500, L501.8100, L500.4100 #### [facility] [address] [place], [address] Chloride assayOrdered By: Lanette Maldonado on 08-18-2024 Chloride [Moles/Vol] 101 mmol/L Normal 98-108 [facility] Comment on above: Order Comment: 120.1 Performed By: #### L 506.1000, L500.4050, L100.0500, L501.8100, L500.4100 #### [facility] [address] [place], [address] Comprehensive Metabolic Prof ilon 08-18-2024 ALK PHOS 81 U/L Normal 35-104 [facility] Comment on above: Order Comment: 120.1 Performed By: #### L 506.1000, L500.4050, L100.0500, L501.8100, L500.4100 #### [facility] [address] [place], [address] BUN/CRE 20.2 RATIO High 10-20 [facility] Comment on above: Order Comment: 120.1 Performed By: #### L 506.1000, L500.4050, L100.0500, L501.8100, L500.4100 #### [facility] [address] [place], [address] GAP 13 Normal 5-15 [facility] Comment on above: Order Comment: 120.1 Performed By: #### L 506.1000, L500.4050, L100.0500, L501.8100, L500.4100 #### [facility] [address] [place], [address] Potassium [Moles/Vol] 4.0 mmol/L Normal 3.3-5.1 [facility] Comment on above: Order Comment: 120.1 Performed By: #### L 506.1000, L500.4050, L100.0500, L501.8100, L500.4100 #### [facility] [address] [place], [address] T PROT 7.7 g/dL Normal 5.9-8.4 [facility] Comment on above: Order Comment: 120.1 Performed By: #### L 506.1000, L500.4050, L100.0500, L501.8100, L500.4100 #### [facility] [address] [place], [address] Comprehensive Metabolic Prof ilOrdered By: Elisa Maldonado on 08-18-2024 AST [Catalytic activity/Vol] 52 U/L High <=31 [facility] Comment on above: Order Comment: 120.1 Performed By: #### L 506.1000, L500.4050, L100.0500, L501.8100, L500.4100 #### [facility] [address] [place], [address] Erythrocyte distribution wid th ratioOrdered By: Elisa Maldonado on 08-18-2024 Erythrocyte distribution width (RBC) [Ratio] 15.3 % High 11.6-14.6 [facility] Comment on above: Order Comment: 120.1 Performed By: #### L 506.1000, L500.4050, L100.0500, L501.8100, L500.4100 #### [facility] [address] [place], [address] Erythrocyte distribution wid th standard deviationOrdered By: Elisa Maldonado on 08-18-2024 Erythrocyte distribution width (RBC) [Ratio] 44.9 fl High 35.1-43.9 [facility] Glomerular filtration rate ( GFR) estimation/1.73 sq m using serum, plasma, or whole bOrdered By: Elisa Maldonado on 08-18-2024 GFR/1.73 sq M.predicted among non-blacks MDRD (S/P/Bld) [Vol rate/Area] 81 mL/min/{1.73_m2} Normal >60 [facility] Comment on above: mL/min/1.73m2 CKD-EP I Creatinine Equation (2020) Order Comment: 120.1 Result Comment: mL/m in/1.73m2 CKD-EPI Creatinine Equation (2020) Performed By: #### L 506.1000, L500.4050, L100.0500, L501.8100, L500.4100 #### [facility] [address] [place], [address] Hemoglobin measurementOrdere d By: Elisa Maldonado on 08-18-2024 Hemoglobin (Bld) [Mass/Vol] 10.8 g/dL Low 12.0-15.0 [facility] Comment on above: Order Comment: 120.1 Performed By: #### L 506.1000, L500.4050, L100.0500, L501.8100, L500.4100 #### [facility] [address] [place], [address] MCV (mean corpuscular volume ) determinationOrdered By: Elisa Maldonado on 08-18-2024 MCV (RBC) [Entitic vol] 81.9 fL Normal 81-[address] [facility] Comment on above: Order Comment: 120.1 Performed By: #### L 506.1000, L500.4050, L100.0500, L501.8100, L500.4100 #### [facility] [address] [place], [address] Mean corpuscular hemoglobin (MCH) determinationOrdered By: Elisa Maldonado on 08-18-2024 MCH (RBC) [Entitic mass] 26.4 pg Low 27.0-32.0 [facility] Comment on above: Order Comment: 120.1 Performed By: #### L 506.1000, L500.4050, L100.0500, L501.8100, L500.4100 #### [facility] [address] [place], [address] Mean corpuscular hemoglobin concentration (MCHC) determinationOrdered By: Elisa Maldonado on 08-18-2024 MCHC (RBC) [Mass/Vol] 32.2 g/dL Normal 32-36 [facility] Comment on above: Order Comment: 120.1 Performed By: #### L 506.1000, L500.4050, L100.0500, L501.8100, L500.4100 #### [facility] [address] [facility] [place], [address] Mean platelet volume determi nationOrdered By: Elisa Maldonado on 08-18-2024 Platelet mean volume (Bld) [Entitic vol] 10.1 fL Normal 6.2-12.0 [facility] Comment on above: Order Comment: 120.1 Performed By: #### L 506.1000, L500.4050, L100.0500, L501.8100, L500.4100 #### [facility] [address] [facility] [place], [address] Platelet countOrdered By: Lanette Maldonado on 08-18-2024 Platelets (Bld) [#/Vol] 295 10*3/uL Normal 150-450 [facility] Comment on above: Order Comment: 120.1 Performed By: #### L 506.1000, L500.4050, L100.0500, L501.8100, L500.4100 #### [facility] [address] [place], [address] Potassium measurement (mass/ volume)Ordered By: Elisa Maldonado on 08-18-2024 Potassium (Unsp spec) [Mass/Vol] 4.0 mmol/L 3.3-5.1 [facility] Serum creatinine measurement (mass/volume)Ordered By: Elisa Maldonado on 08-18-2024 Creatinine [Mass/Vol] 0.80 mg/dL Normal 0.70-1.20 [facility] Comment on above: Order Comment: 120.1 Performed By: #### L 506.1000, L500.4050, L100.0500, L501.8100, L500.4100 #### [facility] [address] [place], [address] Serum globulin measurementOr dered By: Elisa Maldonado on 08-18-2024 Globulin (S) [Mass/Vol] 3.9 g/dL Normal 2.2-4.2 [facility] Comment on above: Order Comment: 120.1 Performed By: #### L 506.1000, L500.4050, L100.0500, L501.8100, L500.4100 #### [facility] [address] [place], [address] Serum glucose measurement (m ass/volume)Ordered By: Elisa Maldonado on 08-18-2024 Glucose [Mass/Vol] 184 mg/dL High 70-99 [facility] Comment on above: Order Comment: 120.1 Performed By: #### L 506.1000, L500.4050, L100.0500, L501.8100, L500.4100 #### [facility] [address] [place], [address] Serum or plasma alanine curry otransferase (ALT) measurementOrdered By: Elisa Maldonado on 08-18-2024 ALT [Catalytic activity/Vol] 26 U/L Normal <=34 [facility] Comment on above: Order Comment: 120.1 Performed By: #### L 506.1000, L500.4050, L100.0500, L501.8100, L500.4100 #### [facility] [address] [place], [address] Serum or plasma albumin emily urement (mass/volume)Ordered By: Elisa Maldonado on 08-18-2024 Albumin [Mass/Vol] 3.7 g/dL Normal 3.4-4.8 [facility] Comment on above: Order Comment: 120.1 Performed By: #### L 506.1000, L500.4050, L100.0500, L501.8100, L500.4100 #### [facility] [address] [place], [address] Serum or plasma albumin/glob ulin mass ratioOrdered By: Elisa Maldonado on 08-18-2024 Albumin/Globulin [Mass ratio] 1.0 {ratio} Normal 0.9-2.4 [facility] Comment on above: Order Comment: 120.1 Performed By: #### L 506.1000, L500.4050, L100.0500, L501.8100, L500.4100 #### [facility] [address] [place], [address] Serum or plasma alkaline mago sphatase measurementOrdered By: Elisa Maldonado on 08-18-2024 ALP [Catalytic activity/Vol] 81 U/L 35-104 [facility] Serum or plasma calcium emily urement (mass/volume)Ordered By: Elisa Maldonado on 08-18-2024 Calcium [Mass/Vol] 10.4 mg/dL Normal 7.6-11.0 [facility] Comment on above: Order Comment: 120.1 Performed By: #### L 506.1000, L500.4050, L100.0500, L501.8100, L500.4100 #### [facility] [address] [place], [address] Serum or plasma urea nitroge n measurement (mass/volume)Ordered By: Elisa Maldonado on 08-18-2024 Urea nitrogen [Mass/Vol] 16 mg/dL Normal 4-19 [facility] Comment on above: Order Comment: 120.1 Performed By: #### L 506.1000, L500.4050, L100.0500, L501.8100, L500.4100 #### [facility] [address] [place], [place], [id number] Sodium levelOrdered By: Elisa Maldonado on 08-18-2024 Sodium [Moles/Vol] 138 mmol/L Normal 133-145 [facility] Comment on above: Order Comment: 120.1 Performed By: #### L 506.1000, L500.4050, L100.0500, L501.8100, L500.4100 #### [facility] [address] [place], [place], [id number] Total proteinOrdered By: Clif Maldonado on 08-18-2024 Protein [Mass/Vol] 7.7 g/dL 5.9-8.4 [facility] White blood cell (WBC) count Ordered By: Elisa Maldonado on 08-18-2024 WBC (Bld) [#/Vol] 9.2 10*3/uL Normal 4.4-11.0 [facility] Comment on above: Order Comment: 120.1 Performed By: #### L 506.1000, L500.4050, L100.0500, L501.8100, L500.4100 #### [facility] [address], [place], [id number] Absolute lymphocyte countOrd ered By: Elisa Maldonado on 07-20-2024 Lymphocytes Auto (Unsp spec) [#/Vol] 3.36 10*3/uL 0.83-4.51 [facility] Absolute neutrophil countOrd ered By: Elisa Maldonado on 07-20-2024 Neutrophils (Bld) [#/Vol] 5.5 10*3/uL 2.0-7.7 [facility] Anion gap in Serum or Plasma Ordered By: Elisa Maldonado on 07-20-2024 Anion gap [Moles/Vol] 13 mmol/L 5-15 [facility] Automated lymphocyte count a s percentage of total leukocytesOrdered By: Elisa Maldonado on 07-20-2024 Lymphocytes/100 WBC Auto (Unsp spec) 33.3 % 19- [facility] BUN/creatinine ratioOrdered By: Elisa Maldonado on 07-20-2024 Urea nitrogen/Creatinine [Mass ratio] 26.1 mg/mg High 10-20 [facility] Basophil percentageOrdered B y: Elisa Maldonado on 07-20-2024 Basophils/100 WBC (Bld) 0.8 % 0-[address] [facility] CBC W/Diff, Automatedon Absolute Lymph 3.36 X10 3/uL Normal 0.83-4.51 [facility] Comment on above: Order Comment: 120.1 Performed By: #### L 506.1000, L500.4050, L100.0500, L501.8100, L500.4100 #### [facility] [address] [place], [address] Absolute Neut 5.5 X10 3/uL Normal 2.0-7.7 [facility] Comment on above: Order Comment: 120.1 Performed By: #### L 506.1000, L500.4050, L100.0500, L501.8100, L500.4100 #### [facility] [address] [place], [address] Basophils/100 WBC (Bld) 0.8 % Normal 0-[address] [facility] Comment on above: Order Comment: 120.1 Performed By: #### L 506.1000, L500.4050, L100.0500, L501.8100, L500.4100 #### [facility] [address] [place], [address] Eosinophils/100 WBC (Bld) 2.8 % Normal 0-5 [facility] Comment on above: Order Comment: 120.1 Performed By: #### L 506.1000, L500.4050, L100.0500, L501.8100, L500.4100 #### [facility] [address] [place], [address] Erythrocyte distribution width (RBC) [Ratio] 15.2 % High 11.6-14.6 [facility] Comment on above: Order Comment: 120.1 Performed By: #### L 506.1000, L500.4050, L100.0500, L501.8100, L500.4100 #### [facility] [address] [place], [address] Hematocrit (Bld) [Volume fraction] 38.4 % Normal 37-47 [facility] Comment on above: Order Comment: 120.1 Performed By: #### L 506.1000, L500.4050, L100.0500, L501.8100, L500.4100 #### [facility] [address] [place], [address] Hemoglobin (Bld) [Mass/Vol] 12.3 g/dL Normal 12.0-15.0 [facility] Comment on above: Order Comment: 120.1 Performed By: #### L 506.1000, L500.4050, L100.0500, L501.8100, L500.4100 #### [facility] [address] [place], [address] IG% 0.500 Normal 0.0-0.9 [facility] Comment on above: Order Comment: 120.1 Result Comment: IG% - Immature Granulocytes (promyelocytes, myelocytes and metamyelocytes) > 1% indicates that a LEFT SHIFT is Present. Performed By: #### L 506.1000, L500.4050, L100.0500, L501.8100, L500.4100 #### [facility] [address] [place], [address] Lymphocytes/100 WBC (Bld) 33.3 % Normal 19-41 [facility] Comment on above: Order Comment: 120.1 Performed By: #### L 506.1000, L500.4050, L100.0500, L501.8100, L500.4100 #### [facility] [address] [place], [address] MCH (RBC) [Entitic mass] 26.6 pg Low 27.0-32.0 [facility] Comment on above: Order Comment: 120.1 Performed By: #### L 506.1000, L500.4050, L100.0500, L501.8100, L500.4100 #### [facility] [address] [place], [address] MCHC (RBC) [Mass/Vol] 32.0 g/dL Normal 32-36 [facility] Comment on above: Order Comment: 120.1 Performed By: #### L 506.1000, L500.4050, L100.0500, L501.8100, L500.4100 #### [facility] [address] [place], [address] MCV (RBC) [Entitic vol] 83.1 fL Normal 81-99 [facility] Comment on above: Order Comment: 120.1 Performed By: #### L 506.1000, L500.4050, L100.0500, L501.8100, L500.4100 #### [facility] [address] [place], [address] Monocytes/100 WBC (Bld) 7.9 % Normal 0-10 [facility] Comment on above: Order Comment: 120.1 Performed By: #### L 506.1000, L500.4050, L100.0500, L501.8100, L500.4100 #### [facility] [address] [place], [address] Neutrophils/100 WBC (Bld) 54.7 % Normal 47-70 [facility] Comment on above: Order Comment: 120.1 Performed By: #### L 506.1000, L500.4050, L100.0500, L501.8100, L500.4100 #### [facility] [address] [place], [address] Nucleated RBC (Bld) [#/Vol] 0 10*3/uL Normal 0-5 [facility] Comment on above: Order Comment: 120.1 Performed By: #### L 506.1000, L500.4050, L100.0500, L501.8100, L500.4100 #### [facility] [address] [place], [address] Platelet mean volume (Bld) [Entitic vol] 10.1 fL Normal 6.2-12.0 [facility] Comment on above: Order Comment: 120.1 Performed By: #### L 506.1000, L500.4050, L100.0500, L501.8100, L500.4100 #### [facility] [address] [place], [address] Platelets (Bld) [#/Vol] 319 10*3/uL Normal 150-450 [facility] Comment on above: Order Comment: 120.1 Performed By: #### L 506.1000, L500.4050, L100.0500, L501.8100, L500.4100 #### [facility] [address] [place], [address] RBC (Bld) [#/Vol] 4.62 10*6/uL Normal 4.2-5.4 [facility] Comment on above: Order Comment: 120.1 Performed By: #### L 506.1000, L500.4050, L100.0500, L501.8100, L500.4100 #### [facility] [address] [place], [address] RDW SD 45.8 fl High 35.1-43.9 [facility] Comment on above: Order Comment: 120.1 Performed By: #### L 506.1000, L500.4050, L100.0500, L501.8100, L500.4100 #### [facility] [address] [place], [address] WBC (Bld) [#/Vol] 10.1 10*3/uL Normal 4.4-11.0 [facility] Comment on above: Order Comment: 120.1 Performed By: #### L 506.1000, L500.4050, L100.0500, L501.8100, L500.4100 #### [facility] [address] [place], [address] Calculated total iron bindin g capacityOrdered By: Elisa Maldonado on 07-20-2024 Total Iron Binding Capacity 427 ug/dL 250-450 [facility] Carbon dioxide, total [Moles /volume] in Central venous bloodOrdered By: Elisa Maldonado on 07-20-2024 CO2 [Moles/Vol] 24.2 mmol/L 21.0-32.0 [facility] Chloride assayOrdered By: Lanette Maldonado on 07-20-2024 Chloride [Moles/Vol] 102 mmol/L 98-108 [facility] Creatinine Unsp time (U) [Ma ss/Vol]Ordered By: Elisa Maldonado on 07-20-2024 Creatinine (U) [Mass/Vol] 89.80 mg/dL 28.00-217.00 [facility] Eosinophil percentageOrdered By: Elisa Maldonado on 07-20-2024 Eosinophils/100 WBC (Bld) 2.8 % 0-5 [facility] Erythrocyte distribution wid th (RBC) [Ratio]Ordered By: Elisa Maldonado on 07-20-2024 Erythrocyte distribution width (RBC) [Entitic vol] 45.8 fL High 35.1-43.9 [facility] Erythrocyte distribution wid th ratioOrdered By: Elisa Maldonado on 07-20-2024 Erythrocyte distribution width (RBC) [Ratio] 15.2 % High 11.6-14.6 [facility] Erythrocyte distribution wid th standard deviationOrdered By: Elisa Maldonado on 07-20-2024 Erythrocyte distribution width (RBC) [Ratio] 45.8 fl High 35.1-43.9 [facility] Ferritinon 04-07-2025 Ferritin [Mass/Vol] 55 ng/mL Normal 22-378 [facility] Comment on above: Order Comment: 120.1 Performed By: #### L 506.1000, L500.4050, L100.0500, L501.8100, L500.4100 #### [facility] [address] [place], [address] GFR/1.73 sq M.predicted kojo g non-blacks MDRD (S/P/Bld) [Vol rate/Area]Ordered By: Elisa Maldonado on 07-20-2024 Estimated GFR (MDRD) Non-Af Amer 76 >60 [facility] Comment on above: mL/min/1.73m2 CKD-EP I Creatinine Equation (2020) Glomerular filtration rate ( GFR) estimation/1.73 sq m using serum, plasma, or whole bOrdered By: Elisa Maldonado on 07-20-2024 GFR/1.73 sq M.predicted among non-blacks MDRD (S/P/Bld) [Vol rate/Area] 76 mL/min/{1.73_m2} >60 [facility] Comment on above: mL/min/1.73m2 CKD-EP I Creatinine Equation (2020) Hematocrit Auto (Bld) [Volum e fraction]Ordered By: Elisa Maldonado on 07-20-2024 Hematocrit (Bld) [Volume fraction] 38.4 % 37-47 [facility] Hemoglobin measurementOrdere d By: Elisa Maldonado on 07-20-2024 Hemoglobin (Bld) [Mass/Vol] 12.3 g/dL 12.0-15.0 [facility] Immature granulocytes/100 WB C Auto (Bld)Ordered By: Elisa Maldonado on 07-20-2024 Immature granulocytes/100 WBC (Bld) 0.500 % 0.0-0.9 [facility] Comment on above: IG% - Immature Granu locytes (promyelocytes, myelocytes and metamyelocytes) > 1% indicates that a LEFT SHIFT is Present. Iron (Unsp spec) [Mass/Mass] Ordered By: Elisa Maldonado on 07-20-2024 Iron [Mass/Vol] 52 ug/dL 50-170 [facility] Iron measurement (mass/mass) Ordered By: Elisa Maldonado on 07-20-2024 Iron (Unsp spec) [Mass/Mass] 52 ug/dL 50-170 [facility] Iron saturation [Mass fracti on]Ordered By: Elisa Maldonado on 07-20-2024 Iron Saturation 12.2 % Low 13-59 [facility] Comment on above: Previous reported re sult: 12.0 %Edited by: YONATAN on 07/20/24:1019 AMENDED REPORT 07/20/24 1019 IRON SATURATION previously reported as: 12.0 L % Iron+Iron Binding Capacityon 07-20-2024 Iron [Mass/Vol] 52 ug/dL Normal 50-170 [facility] Comment on above: Order Comment: 120.1 Performed By: #### L 506.1000, L500.4050, L100.0500, L501.8100, L500.4100 #### [facility] [address] [place], [address] UIBC 375 ug/dL Normal 228-428 [facility] Comment on above: Order Comment: 120.1 Performed By: #### L 506.1000, L500.4050, L100.0500, L501.8100, L500.4100 #### [facility] [address] [place], [address] Lymphocytes Auto (Unsp spec) [#/Vol]Ordered By: Elisa Maldonado on 07-20-2024 Lymphocytes (Bld) [#/Vol] 3.36 10*3/uL 0.83-4.51 [facility] Lymphocytes/100 WBC Auto (Un sp spec)Ordered By: Elisa Maldonado on 07-20-2024 Lymphocytes/100 WBC (Bld) 33.3 % 19-41 [facility] MCV (mean corpuscular volume ) determinationOrdered By: Elisa Maldonado on 07-20-2024 MCV (RBC) [Entitic vol] 83.1 fL 81-[address] [facility] Mean corpuscular hemoglobin (MCH) determinationOrdered By: Elisa Maldonado on 07-20-2024 MCH (RBC) [Entitic mass] 26.6 pg Low 27.0-32.0 [facility] Mean corpuscular hemoglobin concentration (MCHC) determinationOrdered By: Elisa Maldonado on 07-20-2024 MCHC (RBC) [Mass/Vol] 32.0 g/dL 32-36 [facility] Mean platelet volume determi nationOrdered By: Elisa Maldonado on 07-20-2024 Platelet mean volume (Bld) [Entitic vol] 10.1 fL 6.2-12.0 [facility] Monocyte percentageOrdered B y: Elisa Maldonado on 07-20-2024 Monocytes/100 WBC (Bld) 7.9 % 0-[address] [facility] Neutrophil percentageOrdered By: Elisa Maldonado on 07-20-2024 Neutrophils/100 WBC (Bld) 54.7 % 47-70 [facility] No Panel InformationOrdered By: Elisa Maldonado on 07-20-2024 Unsaturated Iron Binding Capacity 375 ug/dL 228-428 [facility] Nucleated red blood cell per centageOrdered By: Elisa Maldonado on 07-20-2024 Nucleated RBC/100 WBC (Bld) [Ratio] 0 % 0-5 [facility] PTH intactOrdered By: Elisa braga on 07-20-2024 Parathyroid Hormone (Intact) 67 pg/mL High - [facility] PTHINon 07-20-2024 PTH 67 pg/mL High [facility] Comment on above: Performed By: #### L 506.1000, L500.4050, L100.0500, L501.8100, L500.4100 #### [facility] [address] [place] [address], [id number] Platelet countOrdered By: Lanette Maldonado on 07-20-2024 Platelets (Bld) [#/Vol] 319 10*3/uL 150-450 [facility] Potassium (Unsp spec) [Mass/ Vol]Ordered By: Elisa Maldonado on 07-20-2024 Potassium [Moles/Vol] 4.4 mmol/L 3.3-5.1 [facility] Potassium measurement (mass/ volume)Ordered By: Elisa Maldonado on 07-20-2024 Potassium (Unsp spec) [Mass/Vol] 4.4 mmol/L 3.3-5.1 [facility] Protein+Creatinine Ratio,Uri neon 07-20-2024 PROT:CRE RATIO 160 mg/g CRE Normal 0-200 [facility] Comment on above: Performed By: #### L 506.1000, L500.4050, L100.0500, L501.8100, L500.4100 #### [facility] [address] [place], [address] Protein (U) [Mass/Vol] 14.4 mg/dL High 0.0-12.0 [facility] Comment on above: Performed By: #### L 506.1000, L500.4050, L100.0500, L501.8100, L500.4100 #### [facility] [address] [place], [address] UR CREAT 89.80 mg/dL Normal 28.00-217.00 [facility] Comment on above: Performed By: #### L 506.1000, L500.4050, L100.0500, L501.8100, L500.4100 #### [facility] [address] [place], [address] Protein/Creatinine (U) [Mass ratio]Ordered By: Elisa Maldonado on 07-20-2024 Urine Protein/Creatinine Ratio 160 mg/g CRE 0-200 [facility] RBC Auto (Bld) [#/Vol]Ordere d By: Elisa Maldoando on 07-20-2024 RBC (Bld) [#/Vol] 4.62 10*6/uL 4.2-5.4 [facility] Random urine creatinine emily urement (mass/volume)Ordered By: Elisa Maldonado on 07-20-2024 Creatinine Unsp time (U) [Mass/Vol] 89.80 mg/dL 28.00-217.00 [facility] Renal Profileon 07-20-2024 Phosphate [Mass/Vol] 3.1 mg/dL Normal 2.7-4.5 [facility] Comment on above: Order Comment: 120.1 Performed By: #### L 506.1000, L500.4050, L100.0500, L501.8100, L500.4100 #### [facility] [place], [address] Serum creatinine measurement (mass/volume)Ordered By: Elisa Maldonado on 07-20-2024 Creatinine [Mass/Vol] 0.84 mg/dL 0.70-1.20 [facility] Serum glucose measurement (m ass/volume)Ordered By: Elisa Maldonado on 07-20-2024 Glucose [Mass/Vol] 117 mg/dL High 70-99 [facility] Serum or plasma albumin emily urement (mass/volume)Ordered By: Elisa Maldonado on 07-20-2024 Albumin [Mass/Vol] 4.0 g/dL 3.4-4.8 [facility] Serum or plasma calcium emily urement (mass/volume)Ordered By: Elisa Maldonado on 07-20-2024 Calcium [Mass/Vol] 10.8 mg/dL 7.6-11.0 [facility] Serum or plasma ferritin alberto surement (mass/volume)Ordered By: Elisa Maldonado on 07-20-2024 Ferritin [Mass/Vol] 55 ng/mL 22-378 [facility] Serum or plasma iron saturat ion measurement (mass fraction)Ordered By: Elisa Maldonado on 07-20-2024 Iron saturation [Mass fraction] 12.2 % Low 13-59 [facility] Comment on above: Previous reported re sult: 12.0 %Edited by: YONATAN on 07/20/24:1019 AMENDED REPORT 07/20/24 1019 IRON SATURATION previously reported as: 12.0 L % Serum or plasma urea nitroge n measurement (mass/volume)Ordered By: Elisa Maldonado on 07-20-2024 Urea nitrogen [Mass/Vol] 22 mg/dL High 4-19 [facility] Serum or plasma uric acid me asurement (mass/volume)Ordered By: Elisa Maldonado on 07-20-2024 Urate [Mass/Vol] 7.5 mg/dL High 2.6-6.0 [facility] Comment on above: The drugs N-Acetylcy steine and Metamizole may falsely depress this assay. Serum phosphorus measurement Ordered By: Elisa Maldonado on 07-20-2024 Phosphorus Level 3.1 mg/dL 2.7-4.5 [facility] Sodium levelOrdered By: Elisa Maldonado on 07-20-2024 Sodium [Moles/Vol] 138 mmol/L 133-145 [facility] Uric Acidon 07-20-2024 URIC 7.5 mg/dL High 2.6-6.0 [facility] Comment on above: Order Comment: 120.1 Result Comment: The drugs N-Acetylcysteine and Metamizole may falsely depress this assay. Performed By: #### L 506.1000, L500.4050, L100.0500, L501.8100, L500.4100 #### [facility] [address] [place], [address] Urine protein measurement (m ass/volume)Ordered By: Elisa Maldonado on 07-20-2024 Protein (U) [Mass/Vol] 14.4 mg/dL High 0.0-12.0 [facility] Urine protein/creatinine mas s ratioOrdered By: Elisa Maldonado on 07-20-2024 Protein/Creatinine (U) [Mass ratio] 160 mg/g CRE 0-200 [facility] White blood cell (WBC) count Ordered By: Elisa Maldonado on 07-20-2024 WBC (Bld) [#/Vol] 10.1 10*3/uL 4.4-11.0 [facility] Anion gap in Serum or Plasma Ordered By: Elisa Maldonado on 06-22-2024 Anion gap [Moles/Vol] 13 mmol/L 5-15 [facility] BUN/creatinine ratioOrdered By: Elisa Maldonado on 06-22-2024 Urea nitrogen/Creatinine [Mass ratio] 39.3 mg/mg High 10-20 [facility] Bilirubin, totalOrdered By: Elisa Maldonado on 06-22-2024 Bilirubin [Mass/Vol] mg/dL 0.00-1.30 [facility] CBC-Complete Blood Cnt No Di ffon 06-22-2024 Erythrocyte distribution width (RBC) [Ratio] 14.8 % High 11.6-14.6 [facility] Comment on above: Order Comment: 120.1 Performed By: #### L 506.1000, L500.4050, L100.0500, L501.8100, L500.4100 #### [facility] [address] [place], [address] Hematocrit (Bld) [Volume fraction] 31.4 % Low 37-47 [facility] Comment on above: Order Comment: 120.1 Performed By: #### L 506.1000, L500.4050, L100.0500, L501.8100, L500.4100 #### [facility] [address] [place], [address] Hemoglobin (Bld) [Mass/Vol] 10.2 g/dL Low 12.0-15.0 [facility] Comment on above: Order Comment: 120.1 Performed By: #### L 506.1000, L500.4050, L100.0500, L501.8100, L500.4100 #### [facility] [address] [place], [address] MCH (RBC) [Entitic mass] 25.8 pg Low 27.0-32.0 [facility] Comment on above: Order Comment: 120.1 Performed By: #### L 506.1000, L500.4050, L100.0500, L501.8100, L500.4100 #### [facility] [address] [place], [address] MCHC (RBC) [Mass/Vol] 32.5 g/dL Normal 32-36 [facility] Comment on above: Order Comment: 120.1 Performed By: #### L 506.1000, L500.4050, L100.0500, L501.8100, L500.4100 #### [facility] [address] [place], [address] MCV (RBC) [Entitic vol] 79.3 fL Low 81-[address] [facility] Comment on above: Order Comment: 120.1 Performed By: #### L 506.1000, L500.4050, L100.0500, L501.8100, L500.4100 #### [facility] [address] [place], [address] Platelet mean volume (Bld) [Entitic vol] 10.4 fL Normal 6.2-12.0 [facility] Comment on above: Order Comment: 120.1 Performed By: #### L 506.1000, L500.4050, L100.0500, L501.8100, L500.4100 #### [facility] [address] [place], [address] Platelets (Bld) [#/Vol] 248 10*3/uL Normal 150-450 [facility] Comment on above: Order Comment: 120.1 Performed By: #### L 506.1000, L500.4050, L100.0500, L501.8100, L500.4100 #### [facility] [address] [place], [address] RBC (Bld) [#/Vol] 3.96 10*6/uL Low 4.2-5.4 [facility] Comment on above: Order Comment: 120.1 Performed By: #### L 506.1000, L500.4050, L100.0500, L501.8100, L500.4100 #### [facility] [address] [place], [address] RDW SD 42.9 fl Normal 35.1-43.9 [facility] Comment on above: Order Comment: 120.1 Performed By: #### L 506.1000, L500.4050, L100.0500, L501.8100, L500.4100 #### [facility] [address] [place], [address] WBC (Bld) [#/Vol] 8.9 10*3/uL Normal 4.4-11.0 [facility] Comment on above: Order Comment: 120.1 Performed By: #### L 506.1000, L500.4050, L100.0500, L501.8100, L500.4100 #### [facility] [address] [place], [address] Carbon dioxide, total [Moles /volume] in Central venous bloodOrdered By: Elisa Maldonado on 06-22-2024 CO2 [Moles/Vol] 22.0 mmol/L 21.0-32.0 [facility] Chloride assayOrdered By: Lanette Maldonado on 06-22-2024 Chloride [Moles/Vol] 102 mmol/L 98-108 [facility] [place] Comprehensive Metabolic Prof ilon 06-22-2024 Albumin [Mass/Vol] 3.2 g/dL Low 3.4-4.8 [facility] Comment on above: Order Comment: 120.1 Performed By: #### L 506.1000, L500.4050, L100.0500, L501.8100, L500.4100 #### [facility] [address] [place], [address] Albumin/Globulin [Mass ratio] 0.9 {ratio} Normal 0.9-2.4 [facility] Comment on above: Order Comment: 120.1 Performed By: #### L 506.1000, L500.4050, L100.0500, L501.8100, L500.4100 #### [facility] [address] [place], [address] ALK PHOS 67 U/L Normal 35-104 [facility] Comment on above: Order Comment: 120.1 Performed By: #### L 506.1000, L500.4050, L100.0500, L501.8100, L500.4100 #### [facility] [address] [place], [address] ALT [Catalytic activity/Vol] 19 U/L Normal <=34 [facility] Comment on above: Order Comment: 120.1 Performed By: #### L 506.1000, L500.4050, L100.0500, L501.8100, L500.4100 #### [facility] [address] [place], [address] AST [Catalytic activity/Vol] 43 U/L High <=31 [facility] Comment on above: Order Comment: 120.1 Performed By: #### L 506.1000, L500.4050, L100.0500, L501.8100, L500.4100 #### [facility] [address] [place], [address] BUN/CRE 39.3 RATIO High 10-20 [facility] Comment on above: Order Comment: 120.1 Performed By: #### L 506.1000, L500.4050, L100.0500, L501.8100, L500.4100 #### [facility] [address] [place], [address] Calcium [Mass/Vol] 9.7 mg/dL Normal 7.6-11.0 [facility] Comment on above: Order Comment: 120.1 Performed By: #### L 506.1000, L500.4050, L100.0500, L501.8100, L500.4100 #### [facility] [address] [place] [place], [address] Chloride [Moles/Vol] 102 mmol/L Normal 98-108 [facility] Comment on above: Order Comment: 120.1 Performed By: #### L 506.1000, L500.4050, L100.0500, L501.8100, L500.4100 #### [facility] [address] [place], [address] CO2 [Moles/Vol] 22.0 mmol/L Normal 21.0-32.0 [facility] Comment on above: Order Comment: 120.1 Performed By: #### L 506.1000, L500.4050, L100.0500, L501.8100, L500.4100 #### [facility] [address] [place], [address] Creatinine [Mass/Vol] 0.72 mg/dL Normal 0.70-1.20 [facility] Comment on above: Order Comment: 120.1 Performed By: #### L 506.1000, L500.4050, L100.0500, L501.8100, L500.4100 #### [facility] [address] [place], [address] GAP 13 Normal 5-15 [facility] Comment on above: Order Comment: 120.1 Performed By: #### L 506.1000, L500.4050, L100.0500, L501.8100, L500.4100 #### [facility] [address] [place], [address] GFR/1.73 sq M.predicted among non-blacks MDRD (S/P/Bld) [Vol rate/Area] 91 mL/min/{1.73_m2} Normal >60 [facility] Comment on above: Order Comment: 120.1 Result Comment: mL/m in/1.73m2 CKD-EPI Creatinine Equation (2020) Performed By: #### L 506.1000, L500.4050, L100.0500, L501.8100, L500.4100 #### [facility] [address] [place], [address] Globulin (S) [Mass/Vol] 3.6 g/dL Normal 2.2-4.2 [facility] Comment on above: Order Comment: 120.1 Performed By: #### L 506.1000, L500.4050, L100.0500, L501.8100, L500.4100 #### [facility] [address] [place], [address] Glucose [Mass/Vol] 104 mg/dL High 70-99 [facility] Comment on above: Order Comment: 120.1 Performed By: #### L 506.1000, L500.4050, L100.0500, L501.8100, L500.4100 #### [facility] [address] [place], [address] Potassium [Moles/Vol] 3.7 mmol/L Normal 3.3-5.1 [facility] Comment on above: Order Comment: 120.1 Performed By: #### L 506.1000, L500.4050, L100.0500, L501.8100, L500.4100 #### [facility] [address] [place], [address] Sodium [Moles/Vol] 137 mmol/L Normal 133-145 [facility] Comment on above: Order Comment: 120.1 Performed By: #### L 506.1000, L500.4050, L100.0500, L501.8100, L500.4100 #### [facility] [address] [place], [address] T BILI < 0.15 Normal 0.00-1.30 [facility] Comment on above: Order Comment: 120.1 Performed By: #### L 506.1000, L500.4050, L100.0500, L501.8100, L500.4100 #### [facility] [address] [place], [address] T PROT 6.8 g/dL Normal 5.9-8.4 [facility] Comment on above: Order Comment: 120.1 Performed By: #### L 506.1000, L500.4050, L100.0500, L501.8100, L500.4100 #### [facility] [address] [place], [address] Urea nitrogen [Mass/Vol] 28 mg/dL High 4-19 [facility] Comment on above: Order Comment: 120.1 Performed By: #### L 506.1000, L500.4050, L100.0500, L501.8100, L500.4100 #### [facility] [place], [address] Erythrocyte distribution wid th (RBC) [Ratio]Ordered By: Elisa Maldonado on 06-22-2024 Erythrocyte distribution width (RBC) [Entitic vol] 42.9 fL 35.1-43.9 [facility] Erythrocyte distribution wid th ratioOrdered By: Elisa Maldonado on 06-22-2024 Erythrocyte distribution width (RBC) [Ratio] 14.8 % High 11.6-14.6 [facility] Erythrocyte distribution wid th standard deviationOrdered By: Elisa Maldonado on 06-22-2024 Erythrocyte distribution width (RBC) [Ratio] 42.9 fl 35.1-43.9 [facility] GFR/1.73 sq M.predicted kojo g non-blacks MDRD (S/P/Bld) [Vol rate/Area]Ordered By: Elisa Maldonado on 06-22-2024 Estimated GFR (MDRD) Non-Af Amer 91 >60 [facility] Comment on above: mL/min/1.73m2 CKD-EP I Creatinine Equation (2020) Glomerular filtration rate ( GFR) estimation/1.73 sq m using serum, plasma, or whole bOrdered By: Elisa Maldonado on 06-22-2024 GFR/1.73 sq M.predicted among non-blacks MDRD (S/P/Bld) [Vol rate/Area] 91 mL/min/{1.73_m2} >60 [facility] Comment on above: mL/min/1.73m2 CKD-EP I Creatinine Equation (2020) Hematocrit Auto (Bld) [Volum e fraction]Ordered By: Elisa Maldonado on 06-22-2024 Hematocrit (Bld) [Volume fraction] 31.4 % Low 37-47 [facility] Hemoglobin measurementOrdere d By: Elisa Maldonado on 06-22-2024 Hemoglobin (Bld) [Mass/Vol] 10.2 g/dL Low 12.0-15.0 [facility] - Chemistry and C hemistry - challengeOrdered By: Elisa Maldonado on 06-22-2024 AST [Catalytic activity/Vol] 43 U/L High <32 [facility] MCV (mean corpuscular volume ) determinationOrdered By: Elisa Maldonado on 06-22-2024 MCV (RBC) [Entitic vol] 79.3 fL Low 81-[address] [facility] Mean corpuscular hemoglobin (MCH) determinationOrdered By: Elisa Maldonado on 06-22-2024 MCH (RBC) [Entitic mass] 25.8 pg Low 27.0-32.0 [facility] Mean corpuscular hemoglobin concentration (MCHC) determinationOrdered By: Elisa Maldonado on 06-22-2024 MCHC (RBC) [Mass/Vol] 32.5 g/dL 32-36 [facility] Mean platelet volume determi nationOrdered By: Elisa Maldonado on 06-22-2024 Platelet mean volume (Bld) [Entitic vol] 10.4 fL 6.2-12.0 [facility] Platelet countOrdered By: Lanette Maldonado on 06-22-2024 Platelets (Bld) [#/Vol] 248 10*3/uL 150-450 [facility] Potassium (Unsp spec) [Mass/ Vol]Ordered By: Elisa Maldonado on 06-22-2024 Potassium [Moles/Vol] 3.7 mmol/L 3.3-5.1 [facility] Potassium measurement (mass/ volume)Ordered By: Elisa Maldonado on 06-22-2024 Potassium (Unsp spec) [Mass/Vol] 3.7 mmol/L 3.3-5.1 [facility] RBC Auto (Bld) [#/Vol]Ordere d By: Elisa Maldonado on 06-22-2024 RBC (Bld) [#/Vol] 3.96 10*6/uL Low 4.2-5.4 [facility] Serum creatinine measurement (mass/volume)Ordered By: Elisa Maldonado on 06-22-2024 Creatinine [Mass/Vol] 0.72 mg/dL 0.70-1.20 [facility] Serum globulin measurementOr dered By: Elisa Maldonado on 06-22-2024 Globulin (S) [Mass/Vol] 3.6 g/dL 2.2-4.2 [facility] Serum glucose measurement (m ass/volume)Ordered By: Elisa Maldonado on 06-22-2024 Glucose [Mass/Vol] 104 mg/dL High 70-99 [facility] Serum or plasma alanine curry otransferase (ALT) measurementOrdered By: Elisa Maldonado on 06-22-2024 ALT [Catalytic activity/Vol] 19 U/L <35 [facility] Serum or plasma albumin emily urement (mass/volume)Ordered By: Elisa Maldonado on 06-22-2024 Albumin [Mass/Vol] 3.2 g/dL Low 3.4-4.8 [facility] Serum or plasma albumin/glob ulin mass ratioOrdered By: Elisa Maldonado on 06-22-2024 Albumin/Globulin [Mass ratio] 0.9 {ratio} 0.9-2.4 [facility] Serum or plasma alkaline mago sphatase measurementOrdered By: Elisa Maldonado on 06-22-2024 ALP [Catalytic activity/Vol] 67 U/L 35-104 [facility] Serum or plasma calcium emily urement (mass/volume)Ordered By: Elisa Maldonado on 06-22-2024 Calcium [Mass/Vol] 9.7 mg/dL 7.6-11.0 [facility] Serum or plasma urea nitroge n measurement (mass/volume)Ordered By: Elisa Maldonado on 06-22-2024 Urea nitrogen [Mass/Vol] 28 mg/dL High 4-19 [facility] Sodium levelOrdered By: Elisa Maldonado on 06-22-2024 Sodium [Moles/Vol] 137 mmol/L 133-145 [facility] Total proteinOrdered By: Clif Maldonado on 06-22-2024 Protein [Mass/Vol] 6.8 g/dL 5.9-8.4 [facility] White blood cell (WBC) count Ordered By: Elisa Maldonado on 06-22-2024 WBC (Bld) [#/Vol] 8.9 10*3/uL 4.4-11.0 [facility] 38-OC-Khazlmt DOrdered By: Shelia Maldonado on 05-21-2024 Vitamin D 25-Hydroxy 37.1 ng/mL [facility] Comment on above: Vitamin D 25(OH) Sta tus Range Deficiency <20 ng/mL (50nmol/L) Insufficiency 20 - 30 ng/mL (50 - 75 nmol/L) Sufficiency 30 - 100 ng/mL (75 - 250 nmol/L) Toxicity >100 ng/mL (>250 nmol/L) High density lipoprotein (HD L) measurementOrdered By: Elisa Maldonado on 05-21-2024 Cholesterol in HDL [Mass/Vol] 41 mg/dL >40 [facility] Comment on above: The drugs N-Acetylcy steine and Metamizole may falsely depress this assay. Reference Range HDL <40 mg/dL Low HDL Cholesterol HDL >or= 60 mg/dL High HDL Cholesterol Lipid Profileon 05-21-2024 Cholesterol [Mass/Vol] 96 mg/dL Normal 200 [facility] Comment on above: Order Comment: 120.1 Result Comment: <200 mg/dL Desirable 200-240 mg/dL Borderline >240 mg/dL High Risk Performed By: #### L 501.8100, L500.4100, L506.1000 #### [facility] [address] [place], [address] Cholesterol in HDL [Mass/Vol] 41 mg/dL Normal [facility] Comment on above: Order Comment: 120.1 Result Comment: The drugs N-Acetylcysteine and Metamizole may falsely depress this assay. Reference Range HDL <40 mg/dL Low HDL Cholesterol HDL >or= 60 mg/dL High HDL Cholesterol Performed By: #### L 501.8100, L500.4100, L506.1000 #### [facility] [address] [place], [address] Cholesterol in LDL [Mass/Vol] 12 mg/dL Normal 0-130 [facility] Comment on above: Order Comment: 120.1 Performed By: #### L 501.8100, L500.4100, L506.1000 #### [facility] [address] [place], [address] Cholesterol in VLDL [Mass/Vol] 43 mg/dL High 5-40 [facility] Comment on above: Order Comment: 120.1 Performed By: #### L 501.8100, L500.4100, L506.1000 #### [facility] [address] [place], [address] Triglyceride [Mass/Vol] 216 mg/dL High [facility] Comment on above: Order Comment: 120.1 Result Comment: The drugs N-Acetylcysteine and Metamizole may falsely depress this assay. Serum Triglycerides Reference Interval Normal <150 mg/dL Borderline high 150 - 199 mg/dL High 200 - 499 mg/dL Very High > or = 500 mg/dL Performed By: #### L 501.8100, L500.4100, L506.1000 #### [facility] [address] [place], [place], [address] Low density lipoprotein (LDL ) cholesterol measurementOrdered By: Elisa Maldonado on 05-21-2024 Cholesterol in LDL [Mass/Vol] 12 mg/dL 0-130 [facility] Serum or plasma cholesterol measurement (mass/volume)Ordered By: Elisa Maldonado on 05-21-2024 Cholesterol [Mass/Vol] 96 mg/dL <200 [facility] Comment on above: <200 mg/dL Desirable 200-240 mg/dL Borderline >240 mg/dL High Risk Triglycerides measurementOrd ered By: Elisa Maldonado on 05-21-2024 Triglyceride [Mass/Vol] 216 mg/dL High <199 [facility] Comment on above: The drugs N-Acetylcy steine and Metamizole may falsely depress this assay.Serum Triglycerides Reference Interval Normal <150 mg/dL Borderline high 150 - 199 mg/dL High 200 - 499 mg/dL Very High > or = 500 mg/dL Valproate levelOrdered By: Shelia Maldonado on 05-21-2024 Valproic Acid (Depakene) Level 68 ug/mL 50-100 [facility] Valproic Acid (Depakene) Lev alpa 05-21-2024 VALPROIC ACID 68 ug/mL Normal 50-100 [facility] Comment on above: Order Comment: 120.1 Performed By: #### L 506.1000, L500.4050, L100.0500, L501.8100, L500.4100 #### [facility] [address] [place], [place], [id number] Very low density lipoprotein (VLDL) cholesterol measurementOrdered By: Elisa Maldonado on 05-21-2024 Very low density lipoprotein (VLDL) cholesterol measurement 43 mg/dL High 5-40 [facility] VLDL Cholesterol 43 mg/dL High 5-40 [facility] Vitamin D,25 Hydroxyon 05-21 Vitamin D 25-OH 37.1 ng/mL Normal [facility] Comment on above: Order Comment: 120.1 Result Comment: Debo min D 25(OH) Status Range Deficiency <20 ng/mL (50nmol/L) Insufficiency 20 - 30 ng/mL (50 - 75 nmol/L) Sufficiency 30 - 100 ng/mL (75 - 250 nmol/L) Toxicity >100 ng/mL (>250 nmol/L) Performed By: #### L 506.1000, L500.4050, L100.0500, L501.8100, L500.4100 #### [facility] [address] [place], [place], [id number] Albumin to globulin ratioOrd ered By: Elisa Maldonado on 04-20-2024 Albumin/Globulin [Mass ratio] 0.6 {ratio} Low 0.9-2.4 [facility] Bilirubin, totalOrdered By: Elisa Maldonado on 04-20-2024 Bilirubin [Mass/Vol] 0.30 mg/dL 0.20-1.00 [facility] Comment on above: For patients on eltr ombopag therapy, use of Dimension [place] TBIL is not recommended. Blood urea nitrogen (BUN)/cr eatinine ratioOrdered By: Elisa Maldonado on 04-20-2024 Urea nitrogen/Creatinine [Mass ratio] 30.5 mg/mg High 10-20 [facility] CBC-Complete Blood Cnt No Di ffon 04-20-2024 Erythrocyte distribution width (RBC) [Ratio] 14.4 % Normal 11.6-14.6 [facility] Comment on above: Order Comment: 120.1 Performed By: #### L 506.1000, L500.4050, L100.0500, L501.8100, L500.4100 #### [facility] [address] [place], [place], [address] Hematocrit (Bld) [Volume fraction] 33.1 % Low 37-47 [facility] Comment on above: Order Comment: 120.1 Performed By: #### L 506.1000, L500.4050, L100.0500, L501.8100, L500.4100 #### [facility] [address] [place], [address] Hemoglobin (Bld) [Mass/Vol] 10.6 g/dL Low 12.0-15.0 [facility] Comment on above: Order Comment: 120.1 Performed By: #### L 506.1000, L500.4050, L100.0500, L501.8100, L500.4100 #### [facility] [address] [place], [address] MCH (RBC) [Entitic mass] 26.0 pg Low 27.0-32.0 [facility] Comment on above: Order Comment: 120.1 Performed By: #### L 506.1000, L500.4050, L100.0500, L501.8100, L500.4100 #### [facility] [address] [place], [address] MCHC (RBC) [Mass/Vol] 32.0 g/dL Normal 32-36 [facility] Comment on above: Order Comment: 120.1 Performed By: #### L 506.1000, L500.4050, L100.0500, L501.8100, L500.4100 #### [facility] [address] [place], [address] MCV (RBC) [Entitic vol] 81.1 fL Normal 81-[address] [facility] Comment on above: Order Comment: 120.1 Performed By: #### L 506.1000, L500.4050, L100.0500, L501.8100, L500.4100 #### [facility] [address] [place], [address] Platelet mean volume (Bld) [Entitic vol] 10.3 fL Normal 6.2-12.0 [facility] Comment on above: Order Comment: 120.1 Performed By: #### L 506.1000, L500.4050, L100.0500, L501.8100, L500.4100 #### [facility] [address] [place], [address] Platelets (Bld) [#/Vol] 308 10*3/uL Normal 150-450 [facility] Comment on above: Order Comment: 120.1 Performed By: #### L 506.1000, L500.4050, L100.0500, L501.8100, L500.4100 #### [facility] [address] [place], [address] RBC (Bld) [#/Vol] 4.08 10*6/uL Low 4.2-5.4 [facility] Comment on above: Order Comment: 120.1 Performed By: #### L 506.1000, L500.4050, L100.0500, L501.8100, L500.4100 #### [facility] [address] [place], [address] RDW SD 42.3 fl Normal 35.1-43.9 [facility] Comment on above: Order Comment: 120.1 Performed By: #### L 506.1000, L500.4050, L100.0500, L501.8100, L500.4100 #### [facility] [address] [place], [address] WBC (Bld) [#/Vol] 11.4 10*3/uL High 4.4-11.0 [facility] Comment on above: Order Comment: 120.1 Performed By: #### L 506.1000, L500.4050, L100.0500, L501.8100, L500.4100 #### [facility] [address] [place], [address] Carbon dioxide measurementOr dered By: Elisa Maldonado on 04-20-2024 CO2 [Moles/Vol] 28.0 mmol/L 21.0-32.0 [facility] Chloride measurementOrdered By: Elisa Maldonado on 04-20-2024 Chloride [Moles/Vol] 107 mmol/L 98-107 [facility] [place] Comprehensive Metabolic Prof ilon 04-20-2024 Albumin [Mass/Vol] 2.8 g/dL Low 3.2-5.0 [facility] Comment on above: Order Comment: 120.1 Performed By: #### L 506.1000, L500.4050, L100.0500, L501.8100, L500.4100 #### [facility] [address] [place], [address] Albumin/Globulin [Mass ratio] 0.6 {ratio} Low 0.9-2.4 [facility] Comment on above: Order Comment: 120.1 Performed By: #### L 506.1000, L500.4050, L100.0500, L501.8100, L500.4100 #### [facility] [address] [place], [address] ALK P 64 U/L Normal 45-117 [facility] Comment on above: Order Comment: 120.1 Performed By: #### L 506.1000, L500.4050, L100.0500, L501.8100, L500.4100 #### [facility] [address] [place], [address] ALT [Catalytic activity/Vol] 17 U/L Normal 13-56 [facility] Comment on above: Order Comment: 120.1 Performed By: #### L 506.1000, L500.4050, L100.0500, L501.8100, L500.4100 #### [facility] [address] [place], [address] AST [Catalytic activity/Vol] 22 U/L Normal 15-37 [facility] Comment on above: Order Comment: 120.1 Performed By: #### L 506.1000, L500.4050, L100.0500, L501.8100, L500.4100 #### [facility] [address] [place], [address] Bilirubin [Mass/Vol] 0.30 mg/dL Normal 0.20-1.00 [facility] Comment on above: Order Comment: 120.1 Result Comment: For patients on eltrombopag therapy, use of Dimension [place] TBIL is not recommended. Performed By: #### L 506.1000, L500.4050, L100.0500, L501.8100, L500.4100 #### [facility] [address] [place], [address] BUN/CRE 30.5 RATIO High 10-20 [facility] Comment on above: Order Comment: 120.1 Performed By: #### L 506.1000, L500.4050, L100.0500, L501.8100, L500.4100 #### [facility] [address] [place], [address] CA,Total 9.6 mg/dL Normal 8.5-10.1 [facility] Comment on above: Order Comment: 120.1 Performed By: #### L 506.1000, L500.4050, L100.0500, L501.8100, L500.4100 #### [facility] [address] [place], [address] Chloride [Moles/Vol] 107 mmol/L Normal 98-107 [facility] Comment on above: Order Comment: 120.1 Performed By: #### L 506.1000, L500.4050, L100.0500, L501.8100, L500.4100 #### [facility] [address] [place], [address] CO2 [Moles/Vol] 28.0 mmol/L Normal 21.0-32.0 [facility] Comment on above: Order Comment: 120.1 Performed By: #### L 506.1000, L500.4050, L100.0500, L501.8100, L500.4100 #### [facility] [address] [place], [address] Creatinine [Mass/Vol] 0.75 mg/dL Normal 0.55-1.02 [facility] Comment on above: Order Comment: 120.1 Result Comment: The validity of the calculated GFR GFRAA in patients over 70 years has not been determined. Clinical correlation is essential. Performed By: #### L 506.1000, L500.4050, L100.0500, L501.8100, L500.4100 #### [facility] [address] [place], [address] EST GFR - AA 98 mL/min Normal >60 [facility] Comment on above: Order Comment: 120.1 Result Comment: Afri can [place]ian GFR Calc Performed By: #### L 506.1000, L500.4050, L100.0500, L501.8100, L500.4100 #### [facility] [address] [place], [address] GAP 4 Low 5-15 [facility] Comment on above: Order Comment: 120.1 Performed By: #### L 506.1000, L500.4050, L100.0500, L501.8100, L500.4100 #### [facility] [address] [place], [address] GFR/1.73 sq M.predicted among non-blacks MDRD (S/P/Bld) [Vol rate/Area] 81 mL/min/{1.73_m2} Normal >60 [facility] Comment on above: Order Comment: 120.1 Result Comment: Non- GFR Calc Performed By: #### L 506.1000, L500.4050, L100.0500, L501.8100, L500.4100 #### [facility] [address] [place], [address] Globulin (S) [Mass/Vol] 4.4 g/dL High 2.2-4.2 [facility] Comment on above: Order Comment: 120.1 Performed By: #### L 506.1000, L500.4050, L100.0500, L501.8100, L500.4100 #### [facility] [address] [place], [address] Glucose [Mass/Vol] 101 mg/dL Normal 74-106 [facility] Comment on above: Order Comment: 120.1 Result Comment: Fast ing Glucose result from 100 to 125 mg/dL suggests IMPAIRED HOMEOSTASIS per A.D.A. criteria. Performed By: #### L 506.1000, L500.4050, L100.0500, L501.8100, L500.4100 #### [facility] [address] [place], [address] Potassium [Moles/Vol] 4.5 mmol/L Normal 3.5-5.1 [facility] Comment on above: Order Comment: 120.1 Performed By: #### L 506.1000, L500.4050, L100.0500, L501.8100, L500.4100 #### [facility] [address] [place], [address] Sodium [Moles/Vol] 139 mmol/L Normal 136-145 [facility] Comment on above: Order Comment: 120.1 Performed By: #### L 506.1000, L500.4050, L100.0500, L501.8100, L500.4100 #### [facility] [address] [place], [address] T PROT 7.2 g/dL Normal 6.4-8.2 [facility] Comment on above: Order Comment: 120.1 Performed By: #### L 506.1000, L500.4050, L100.0500, L501.8100, L500.4100 #### [facility] [address] [place], [address] Urea nitrogen [Mass/Vol] 23 mg/dL High 7-18 [facility] Comment on above: Order Comment: 120.1 Performed By: #### L 506.1000, L500.4050, L100.0500, L501.8100, L500.4100 #### [facility] [address] [place], [address] Erythrocyte distribution wid th (RBC) [Ratio]Ordered By: Elisa Maldonado on 04-20-2024 Erythrocyte distribution width (RBC) [Entitic vol] 42.3 fL 35.1-43.9 [facility] Erythrocyte distribution wid th ratioOrdered By: Elisa Maldonado on 04-20-2024 Erythrocyte distribution width (RBC) [Ratio] 14.4 % 11.6-14.6 [facility] Estimated glomerular filtrat ion rate (GFR) AmericanOrdered By: Elisa Maldonado on 04-20-2024 Estimated GFR (MDRD) Amer 98 mL/min >60 [facility] Comment on above: GFR Calc Glomerular filtration rate ( GFR) estimationOrdered By: Elisa Maldonado on 04-20-2024 Estimated GFR (MDRD) Non-Af Amer 81 mL/min >60 [facility] Comment on above: Non- GFR Calc Glucose measurementOrdered B y: Elisa Maldonado on 04-20-2024 Glucose [Mass/Vol] 101 mg/dL 74-106 [facility] Comment on above: Fasting Glucose resu lt from 100 to 125 mg/dL suggests IMPAIRED HOMEOSTASIS per A.D.A. criteria. Hematocrit Auto (Bld) [Volum e fraction]Ordered By: Elisa Maldonado on 04-20-2024 Hematocrit (Bld) [Volume fraction] 33.1 % Low 37-47 [facility] Hemoglobin measurementOrdere d By: Elisa Maldonado on 04-20-2024 Hemoglobin (Bld) [Mass/Vol] 10.6 g/dL Low 12.0-15.0 [facility] - Chemistry and C hemistry - challengeOrdered By: Elisa Maldonado on 04-20-2024 AST [Catalytic activity/Vol] 22 U/L 15-37 [facility] MCV (mean corpuscular volume ) determinationOrdered By: Elisa Maldonado on 04-20-2024 MCV (RBC) [Entitic vol] 81.1 fL 81-[address] [facility] Mean corpuscular hemoglobin (MCH) determinationOrdered By: Elisa Maldonado on 04-20-2024 MCH (RBC) [Entitic mass] 26.0 pg Low 27.0-32.0 [facility] Mean corpuscular hemoglobin concentration (MCHC) determinationOrdered By: Elisa Maldonado on 04-20-2024 MCHC (RBC) [Mass/Vol] 32.0 g/dL 32-36 [facility] Mean platelet volume determi nationOrdered By: Elisa Maldonado on 04-20-2024 Platelet mean volume (Bld) [Entitic vol] 10.3 fL 6.2-12.0 [facility] Platelet countOrdered By: Lanette Maldonado on 04-20-2024 Platelets (Bld) [#/Vol] 308 10*3/uL 150-450 [facility] Potassium measurementOrdered By: Elisa Maldonado on 04-20-2024 Potassium [Moles/Vol] 4.5 mmol/L 3.5-5.1 [facility] RBC Auto (Bld) [#/Vol]Ordere d By: Elisa Maldonado on 04-20-2024 RBC (Bld) [#/Vol] 4.08 10*6/uL Low 4.2-5.4 [facility] Serum anion gap measurementO rdered By: Elisa Maldonado on 04-20-2024 Anion gap [Moles/Vol] 4 mmol/L Low 5-15 [facility] Serum globulin measurementOr dered By: Elisa Maldonado on 04-20-2024 Globulin (S) [Mass/Vol] 4.4 g/dL High 2.2-4.2 [facility] Serum or plasma alanine curry otransferase (ALT) measurementOrdered By: Elisa Maldonado on 04-20-2024 ALT [Catalytic activity/Vol] 17 U/L 13-56 [facility] Serum or plasma albumin emily urement (mass/volume)Ordered By: Elisa Maldonado on 04-20-2024 Albumin [Mass/Vol] 2.8 g/dL Low 3.2-5.0 [facility] Serum or plasma alkaline mago sphatase measurementOrdered By: Elisa Maldonado on 04-20-2024 ALP [Catalytic activity/Vol] 64 U/L 45-117 [facility] Serum or plasma calcium emily urement (mass/volume)Ordered By: Elisa Maldonado on 04-20-2024 Calcium [Mass/Vol] 9.6 mg/dL 8.5-10.1 [facility] Serum or plasma creatinine m easurement (mass/volume)Ordered By: Elisa Maldonado on 04-20-2024 Creatinine [Mass/Vol] 0.75 mg/dL 0.55-1.02 [facility] Comment on above: The validity of the calculated GFR & GFRAA in patients over 70 years has not been determined. Clinical correlation is essential. Serum or plasma urea nitroge n measurement (mass/volume)Ordered By: Elisa Maldonado on 04-20-2024 Urea nitrogen [Mass/Vol] 23 mg/dL High 7-18 [facility] Sodium levelOrdered By: Elisa Maldonado on 04-20-2024 Sodium [Moles/Vol] 139 mmol/L 136-145 [facility] Total proteinOrdered By: Clif Maldonado on 04-20-2024 Protein [Mass/Vol] 7.2 g/dL 6.4-8.2 [facility] White blood cell (WBC) count Ordered By: Elisa Maldonado on 04-20-2024 WBC (Bld) [#/Vol] 11.4 10*3/uL High 4.4-11.0 [facility] Ammoniaon 03-05-2024 Ammonia (P) [Moles/Vol] 36.0 umol/L High 1132 [facility] Comment on above: Order Comment: 120.1 Performed By: #### L 506.1000, L500.4050, L100.0500, L501.8100, L500.4100 #### [facility] [address] [place], [place], [address] Comprehensive Metabolic Prof ilon 03-05-2024 Albumin [Mass/Vol] 3.0 g/dL Low 3.2-5.0 [facility] Comment on above: Order Comment: 120.1 Performed By: #### L 506.1000, L500.4050, L100.0500, L501.8100, L500.4100 #### [facility] [address] [place], [address] Albumin/Globulin [Mass ratio] 0.6 {ratio} Low 0.9-2.4 [facility] Comment on above: Order Comment: 120.1 Performed By: #### L 506.1000, L500.4050, L100.0500, L501.8100, L500.4100 #### [facility] [address] [place], [address] ALK P 73 U/L Normal 45-117 [facility] Comment on above: Order Comment: 120.1 Performed By: #### L 506.1000, L500.4050, L100.0500, L501.8100, L500.4100 #### [facility] [address] [place], [address] ALT [Catalytic activity/Vol] 21 U/L Normal 13-56 [facility] Comment on above: Order Comment: 120.1 Performed By: #### L 506.1000, L500.4050, L100.0500, L501.8100, L500.4100 #### [facility] [address] [place], [address] AST [Catalytic activity/Vol] 34 U/L Normal 15-37 [facility] Comment on above: Order Comment: 120.1 Performed By: #### L 506.1000, L500.4050, L100.0500, L501.8100, L500.4100 #### [facility] [address] [place], [address] Bilirubin [Mass/Vol] 0.20 mg/dL Normal 0.20-1.00 [facility] Comment on above: Order Comment: 120.1 Result Comment: For patients on eltrombopag therapy, use of Dimension [place] TBIL is not recommended. Performed By: #### L 506.1000, L500.4050, L100.0500, L501.8100, L500.4100 #### [facility] [address] [place], [address] BUN/CRE 26.5 RATIO High 10-20 [facility] Comment on above: Order Comment: 120.1 Performed By: #### L 506.1000, L500.4050, L100.0500, L501.8100, L500.4100 #### [facility] [address] [place], [address] CA,Total 9.6 mg/dL Normal 8.5-10.1 [facility] Comment on above: Order Comment: 120.1 Performed By: #### L 506.1000, L500.4050, L100.0500, L501.8100, L500.4100 #### [facility] [address] [place], [address] Chloride [Moles/Vol] 109 mmol/L High 98-107 [facility] Comment on above: Order Comment: 120.1 Performed By: #### L 506.1000, L500.4050, L100.0500, L501.8100, L500.4100 #### [facility] [address] [place], [address] CO2 [Moles/Vol] 26.0 mmol/L Normal 21.0-32.0 [facility] Comment on above: Order Comment: 120.1 Performed By: #### L 506.1000, L500.4050, L100.0500, L501.8100, L500.4100 #### [facility] [address] [place], [address] Creatinine [Mass/Vol] 0.79 mg/dL Normal 0.55-1.02 [facility] Comment on above: Order Comment: 120.1 Result Comment: The validity of the calculated GFR GFRAA in patients over 70 years has not been determined. Clinical correlation is essential. Performed By: #### L 506.1000, L500.4050, L100.0500, L501.8100, L500.4100 #### [facility] [address] [place], [address] EST GFR - AA 93 mL/min Normal >60 [facility] Comment on above: Order Comment: 120.1 Result Comment: Afri can Colombian GFR Calc Performed By: #### L 506.1000, L500.4050, L100.0500, L501.8100, L500.4100 #### [facility] [address] [place], [address] GAP 6 Normal 5-15 [facility] Comment on above: Order Comment: 120.1 Performed By: #### L 506.1000, L500.4050, L100.0500, L501.8100, L500.4100 #### [facility] [address] [place], [address] GFR/1.73 sq M.predicted among non-blacks MDRD (S/P/Bld) [Vol rate/Area] 77 mL/min/{1.73_m2} Normal >60 [facility] Comment on above: Order Comment: 120.1 Result Comment: Non- GFR Calc Performed By: #### L 506.1000, L500.4050, L100.0500, L501.8100, L500.4100 #### [facility] [address] [place], [address] Globulin (S) [Mass/Vol] 4.7 g/dL High 2.2-4.[address] [facility] Comment on above: Order Comment: 120.1 Performed By: #### L 506.1000, L500.4050, L100.0500, L501.8100, L500.4100 #### [facility] [address] [place], [address] Glucose [Mass/Vol] 94 mg/dL Normal 74-106 [facility] Comment on above: Order Comment: 120.1 Performed By: #### L 506.1000, L500.4050, L100.0500, L501.8100, L500.4100 #### [facility] [address] [place], [address] Potassium [Moles/Vol] 4.1 mmol/L Normal 3.5-5.1 [facility] Comment on above: Order Comment: 120.1 Performed By: #### L 506.1000, L500.4050, L100.0500, L501.8100, L500.4100 #### [facility] [address] [place], [address] Sodium [Moles/Vol] 140 mmol/L Normal 136-145 [facility] Comment on above: Order Comment: 120.1 Performed By: #### L 506.1000, L500.4050, L100.0500, L501.8100, L500.4100 #### [facility] [address] [place], [address] T PROT 7.7 g/dL Normal 6.4-8.2 [facility] Comment on above: Order Comment: 120.1 Performed By: #### L 506.1000, L500.4050, L100.0500, L501.8100, L500.4100 #### [facility] [address] [place], [address] Urea nitrogen [Mass/Vol] 21 mg/dL High 7-18 [facility] Comment on above: Order Comment: 120.1 Performed By: #### L 506.1000, L500.4050, L100.0500, L501.8100, L500.4100 #### [facility] [address] [place], [address] Valproic Acid (Depakene) Lev alpa 03-05-2024 VALPROIC ACID 89 ug/mL Normal 50-100 [facility] Comment on above: Order Comment: 120.1 Performed By: #### L 506.1000, L500.4050, L100.0500, L501.8100, L500.4100 #### [facility] [address] [place], [address] CBC-Complete Blood Cnt No Di ffon 02-19-2024 Erythrocyte distribution width (RBC) [Ratio] 13.9 % Normal 11.6-14.6 [facility] Comment on above: Order Comment: 120.1 Performed By: #### L 506.1000, L500.4050, L100.0500, L501.8100, L500.4100 #### [facility] [address] [place], [address] Hematocrit (Bld) [Volume fraction] 30.2 % Low 37-47 [facility] Comment on above: Order Comment: 120.1 Performed By: #### L 506.1000, L500.4050, L100.0500, L501.8100, L500.4100 #### [facility] [address] [place], [address] Hemoglobin (Bld) [Mass/Vol] 9.4 g/dL Low 12.0-15.0 [facility] Comment on above: Order Comment: 120.1 Performed By: #### L 506.1000, L500.4050, L100.0500, L501.8100, L500.4100 #### [facility] [address] [place], [address] MCH (RBC) [Entitic mass] 26.2 pg Low 27.0-32.0 [facility] Comment on above: Order Comment: 120.1 Performed By: #### L 506.1000, L500.4050, L100.0500, L501.8100, L500.4100 #### [facility] [address] [place], [address] MCHC (RBC) [Mass/Vol] 31.1 g/dL Low 32-36 [facility] Comment on above: Order Comment: 120.1 Performed By: #### L 506.1000, L500.4050, L100.0500, L501.8100, L500.4100 #### [facility] [address] [place], [address] MCV (RBC) [Entitic vol] 84.1 fL Normal 81-99 [facility] Comment on above: Order Comment: 120.1 Performed By: #### L 506.1000, L500.4050, L100.0500, L501.8100, L500.4100 #### [facility] [address] [place], [address] Platelet mean volume (Bld) [Entitic vol] 9.7 fL Normal 6.2-12.0 [facility] Comment on above: Order Comment: 120.1 Performed By: #### L 506.1000, L500.4050, L100.0500, L501.8100, L500.4100 #### [facility] [address] [place], [address] Platelets (Bld) [#/Vol] 312 10*3/uL Normal 150-450 [facility] Comment on above: Order Comment: 120.1 Performed By: #### L 506.1000, L500.4050, L100.0500, L501.8100, L500.4100 #### [facility] [address] [place], [address] RBC (Bld) [#/Vol] 3.59 10*6/uL Low 4.2-5.4 [facility] Comment on above: Order Comment: 120.1 Performed By: #### L 506.1000, L500.4050, L100.0500, L501.8100, L500.4100 #### [facility] [address] [place], [address] RDW SD 43.2 fl Normal 35.1-43.9 [facility] Comment on above: Order Comment: 120.1 Performed By: #### L 506.1000, L500.4050, L100.0500, L501.8100, L500.4100 #### [facility] [address] [place], [address] WBC (Bld) [#/Vol] 10.1 10*3/uL Normal 4.4-11.0 [facility] Comment on above: Order Comment: 120.1 Performed By: #### L 506.1000, L500.4050, L100.0500, L501.8100, L500.4100 #### [facility] [address] [place], [address] Comprehensive Metabolic Prof ilon 02-19-2024 Albumin [Mass/Vol] 2.7 g/dL Low 3.2-5.0 [facility] Comment on above: Order Comment: 120.1 Performed By: #### L 506.1000, L500.4050, L100.0500, L501.8100, L500.4100 #### [facility] [address], [address] Albumin/Globulin [Mass ratio] 0.7 {ratio} Low 0.9-2.4 [facility] Comment on above: Order Comment: 120.1 Performed By: #### L 506.1000, L500.4050, L100.0500, L501.8100, L500.4100 #### [facility] [address] [place], [address] ALK P 73 U/L Normal 45-117 [facility] Comment on above: Order Comment: 120.1 Performed By: #### L 506.1000, L500.4050, L100.0500, L501.8100, L500.4100 #### [facility] [address] [place], [address] ALT [Catalytic activity/Vol] 22 U/L Normal 13-56 [facility] Comment on above: Order Comment: 120.1 Performed By: #### L 506.1000, L500.4050, L100.0500, L501.8100, L500.4100 #### [facility] [address] [place], [address] AST [Catalytic activity/Vol] 24 U/L Normal 15-37 [facility] Comment on above: Order Comment: 120.1 Performed By: #### L 506.1000, L500.4050, L100.0500, L501.8100, L500.4100 #### [facility] [address] [place], [address] Bilirubin [Mass/Vol] 0.20 mg/dL Normal 0.20-1.00 [facility] Comment on above: Order Comment: 120.1 Result Comment: For patients on eltrombopag therapy, use of Dimension [place] TBIL is not recommended. Performed By: #### L 506.1000, L500.4050, L100.0500, L501.8100, L500.4100 #### [facility] [address] [place], [address] BUN/CRE 33.3 RATIO High 10-20 [facility] Comment on above: Order Comment: 120.1 Performed By: #### L 506.1000, L500.4050, L100.0500, L501.8100, L500.4100 #### [facility] [address] [place], [address] CA,Total 9.0 mg/dL Normal 8.5-10.1 [facility] Comment on above: Order Comment: 120.1 Performed By: #### L 506.1000, L500.4050, L100.0500, L501.8100, L500.4100 #### [facility] [address] [place], [address] Chloride [Moles/Vol] 109 mmol/L High 98-107 [facility] Comment on above: Order Comment: 120.1 Performed By: #### L 506.1000, L500.4050, L100.0500, L501.8100, L500.4100 #### [facility] [address] [place], [address] CO2 [Moles/Vol] 27.0 mmol/L Normal 21.0-32.0 [facility] Comment on above: Order Comment: 120.1 Performed By: #### L 506.1000, L500.4050, L100.0500, L501.8100, L500.4100 #### [facility] [address] [place], [address] Creatinine [Mass/Vol] 0.75 mg/dL Normal 0.55-1.02 [facility] Comment on above: Order Comment: 120.1 Result Comment: The validity of the calculated GFR GFRAA in patients over 70 years has not been determined. Clinical correlation is essential. Performed By: #### L 506.1000, L500.4050, L100.0500, L501.8100, L500.4100 #### [facility] [address] [place], [address] EST GFR - AA 99 mL/min Normal >60 [facility] Comment on above: Order Comment: 120.1 Result Comment: Afri can Colombian GFR Calc Performed By: #### L 506.1000, L500.4050, L100.0500, L501.8100, L500.4100 #### [facility] [address] [place], [address] GAP 4 Low 5-15 [facility] Comment on above: Order Comment: 120.1 Performed By: #### L 506.1000, L500.4050, L100.0500, L501.8100, L500.4100 #### [facility] [address] [place], [address] GFR/1.73 sq M.predicted among non-blacks MDRD (S/P/Bld) [Vol rate/Area] 82 mL/min/{1.73_m2} Normal >60 [facility] Comment on above: Order Comment: 120.1 Result Comment: Non- GFR Calc Performed By: #### L 506.1000, L500.4050, L100.0500, L501.8100, L500.4100 #### [facility] [address] [place], [address] Globulin (S) [Mass/Vol] 4.1 g/dL Normal 2.2-4.2 [facility] Comment on above: Order Comment: 120.1 Performed By: #### L 506.1000, L500.4050, L100.0500, L501.8100, L500.4100 #### [facility] [address] [place], [address] Glucose [Mass/Vol] 96 mg/dL Normal 74-106 [facility] Comment on above: Order Comment: 120.1 Performed By: #### L 506.1000, L500.4050, L100.0500, L501.8100, L500.4100 #### [facility] [address] [place], [address] Potassium [Moles/Vol] 4.2 mmol/L Normal 3.5-5.1 [facility] Comment on above: Order Comment: 120.1 Performed By: #### L 506.1000, L500.4050, L100.0500, L501.8100, L500.4100 #### [facility] [address] [place], [address] Sodium [Moles/Vol] 140 mmol/L Normal 136-145 [facility] Comment on above: Order Comment: 120.1 Performed By: #### L 506.1000, L500.4050, L100.0500, L501.8100, L500.4100 #### [facility] [address] [place], [address] T PROT 6.8 g/dL Normal 6.4-8.2 [facility] Comment on above: Order Comment: 120.1 Performed By: #### L 506.1000, L500.4050, L100.0500, L501.8100, L500.4100 #### [facility] [address] [place], [address] Urea nitrogen [Mass/Vol] 25 mg/dL High 7-18 [facility] Comment on above: Order Comment: 120.1 Performed By: #### L 506.1000, L500.4050, L100.0500, L501.8100, L500.4100 #### [facility] [address], [address] CBC-Complete Blood Cnt No Di ffon 01-20-2024 Erythrocyte distribution width (RBC) [Ratio] 13.6 % Normal 11.6-14.6 [facility] Comment on above: Order Comment: 120.1 Performed By: #### L 100.0500, L500.4050 #### [facility] [address] [place], [address] Hematocrit (Bld) [Volume fraction] 30.3 % Low 37-47 [facility] Comment on above: Order Comment: 120.1 Performed By: #### L 100.0500, L500.4050 #### [facility] [address] [place], [address] Hemoglobin (Bld) [Mass/Vol] 9.7 g/dL Low 12.0-15.0 [facility] Comment on above: Order Comment: 120.1 Performed By: #### L 100.0500, L500.4050 #### [facility] [address] [place], [address] MCH (RBC) [Entitic mass] 27.4 pg Normal 27.0-32.0 [facility] Comment on above: Order Comment: 120.1 Performed By: #### L 100.0500, L500.4050 #### [facility] [address] [place], [address] MCHC (RBC) [Mass/Vol] 32.0 g/dL Normal 32-36 [facility] Comment on above: Order Comment: 120.1 Performed By: #### L 100.0500, L500.4050 #### [facility] [address] [place], [address] MCV (RBC) [Entitic vol] 85.6 fL Normal 81-[address] [facility] Comment on above: Order Comment: 120.1 Performed By: #### L 100.0500, L500.4050 #### [facility] [address] [place], [address] Platelet mean volume (Bld) [Entitic vol] 10.0 fL Normal 6.2-12.0 [facility] Comment on above: Order Comment: 120.1 Performed By: #### L 100.0500, L500.4050 #### [facility] [address] [place], [address] Platelets (Bld) [#/Vol] 318 10*3/uL Normal 150-450 [facility] Comment on above: Order Comment: 120.1 Performed By: #### L 100.0500, L500.4050 #### [facility] [address] [place], [address] RBC (Bld) [#/Vol] 3.54 10*6/uL Low 4.2-5.4 [facility] Comment on above: Order Comment: 120.1 Performed By: #### L 100.0500, L500.4050 #### [facility] [address] [place], [address] RDW SD 42.8 fl Normal 35.1-43.9 [facility] Comment on above: Order Comment: 120.1 Performed By: #### L 100.0500, L500.4050 #### [facility] [address] [place], [address] WBC (Bld) [#/Vol] 10.4 10*3/uL Normal 4.4-11.0 [facility] Comment on above: Order Comment: 120.1 Performed By: #### L 100.0500, L500.4050 #### [facility] [address] [place], [address] Comprehensive Metabolic Prof ilon 01-20-2024 Albumin [Mass/Vol] 2.6 g/dL Low 3.2-5.0 [facility] Comment on above: Order Comment: 120.1 Performed By: #### L 100.0500, L500.4050 #### [facility] [address] [place], [address] Albumin/Globulin [Mass ratio] 0.6 {ratio} Low 0.9-2.4 [facility] Comment on above: Order Comment: 120.1 Performed By: #### L 100.0500, L500.4050 #### [facility] [address] [place], [address] ALK P 67 U/L Normal 45-117 [facility] Comment on above: Order Comment: 120.1 Performed By: #### L 100.0500, L500.4050 #### [facility] [address] [place], [address] ALT [Catalytic activity/Vol] 13 U/L Normal 13-56 [facility] Comment on above: Order Comment: 120.1 Performed By: #### L 100.0500, L500.4050 #### [facility] [address] [place], [address] AST [Catalytic activity/Vol] 23 U/L Normal 15-37 [facility] Comment on above: Order Comment: 120.1 Performed By: #### L 100.0500, L500.4050 #### [facility] Laboratory [address] [place], [address] Bilirubin [Mass/Vol] 0.20 mg/dL Normal 0.20-1.00 [facility] [place] Comment on above: Order Comment: 120.1 Result Comment: For patients on eltrombopag therapy, use of Dimension [place] TBIL is not recommended. Performed By: #### L 100.0500, L500.4050 #### [facility] [address] [place], [address] BUN/CRE 29.2 RATIO High 10-20 [facility] Comment on above: Order Comment: 120.1 Performed By: #### L 100.0500, L500.4050 #### [facility] [address] [place], [address] CA,Total 10.2 mg/dL High 8.5-10.1 [facility] Comment on above: Order Comment: 120.1 Performed By: #### L 100.0500, L500.4050 #### [facility] [address] [place], [address] Chloride [Moles/Vol] 106 mmol/L Normal 98-107 [facility] [place] Comment on above: Order Comment: 120.1 Performed By: #### L 100.0500, L500.4050 #### [facility] [address] [place], [address] CO2 [Moles/Vol] 27.0 mmol/L Normal 21.0-32.0 [facility] Comment on above: Order Comment: 120.1 Performed By: #### L 100.0500, L500.4050 #### [facility] [address] [place], [address] Creatinine [Mass/Vol] 0.72 mg/dL Normal 0.55-1.02 [facility] Comment on above: Order Comment: 120.1 Result Comment: The validity of the calculated GFR GFRAA in patients over 70 years has not been determined. Clinical correlation is essential. Performed By: #### L 100.0500, L500.4050 #### [facility] [address] [place], [address] EST GFR - AA 104 mL/min Normal >60 [facility] Comment on above: Order Comment: 120.1 Result Comment: Afri can Colombian GFR Calc Performed By: #### L 100.0500, L500.4050 #### [facility] [address] [place], [address] GAP 7 Normal 5-15 [facility] Comment on above: Order Comment: 120.1 Performed By: #### L 100.0500, L500.4050 #### [facility] [address] [place], [address] GFR/1.73 sq M.predicted among non-blacks MDRD (S/P/Bld) [Vol rate/Area] 86 mL/min/{1.73_m2} Normal >60 [facility] Comment on above: Order Comment: 120.1 Result Comment: Non- GFR Calc Performed By: #### L 100.0500, L500.4050 #### [facility] [address] [place], [address] Globulin (S) [Mass/Vol] 4.3 g/dL High 2.2-4.[address] [facility] Comment on above: Order Comment: 120.1 Performed By: #### L 100.0500, L500.4050 #### [facility] [address] [place], [address] Glucose [Mass/Vol] 93 mg/dL Normal 74-106 [facility] Comment on above: Order Comment: 120.1 Performed By: #### L 100.0500, L500.4050 #### [facility] [address] [place], [address] Potassium [Moles/Vol] 4.2 mmol/L Normal 3.5-5.1 [facility] Comment on above: Order Comment: 120.1 Performed By: #### L 100.0500, L500.4050 #### [facility] [address] [place], [address] Sodium [Moles/Vol] 140 mmol/L Normal 136-145 [facility] Comment on above: Order Comment: 120.1 Performed By: #### L 100.0500, L500.4050 #### [facility] [address] [place], [address] T PROT 6.9 g/dL Normal 6.4-8.2 [facility] Comment on above: Order Comment: 120.1 Performed By: #### L 100.0500, L500.4050 #### [facility] [address] [place], [address] Urea nitrogen [Mass/Vol] 21 mg/dL High 7-18 [facility] Comment on above: Order Comment: 120.1 Performed By: #### L 100.0500, L500.4050 #### [facility] [address] [place], [address] Ammoniaon 01-02-2024 Ammonia (P) [Moles/Vol] 18.0 umol/L Normal 11-32 [facility] Comment on above: Order Comment: 120.1 Performed By: #### L 506.1000, L500.4050, L100.0500, L501.8100, L500.4100 #### [facility] [address] [place], [address] CBC W/Diff, Automatedon 09- Absolute Lymph 3.19 X10 3/uL Normal 0.83-4.51 [facility] Comment on above: Order Comment: 120.1 Performed By: #### L 506.1000, L500.4050, L100.0500, L501.8100, L500.4100 #### [facility] [address] [place], [address] Absolute Neut 8.5 X10 3/uL High 2.0-7.7 [facility] Comment on above: Order Comment: 120.1 Performed By: #### L 506.1000, L500.4050, L100.0500, L501.8100, L500.4100 #### [facility] [address] [place], [address] Basophils/100 WBC (Bld) 0.5 % Normal 0-[address] [facility] Comment on above: Order Comment: 120.1 Performed By: #### L 506.1000, L500.4050, L100.0500, L501.8100, L500.4100 #### [facility] [address] [place], [address] Eosinophils/100 WBC (Bld) 2.4 % Normal 0-5 [facility] Comment on above: Order Comment: 120.1 Performed By: #### L 506.1000, L500.4050, L100.0500, L501.8100, L500.4100 #### [facility] [address] [place], [address] Erythrocyte distribution width (RBC) [Ratio] 13.7 % Normal 11.6-14.6 [facility] Comment on above: Order Comment: 120.1 Performed By: #### L 506.1000, L500.4050, L100.0500, L501.8100, L500.4100 #### [facility] [address] [place], [address] Hematocrit (Bld) [Volume fraction] 33.3 % Low 37-47 [facility] Comment on above: Order Comment: 120.1 Performed By: #### L 506.1000, L500.4050, L100.0500, L501.8100, L500.4100 #### [facility] [address] [place], [address] Hemoglobin (Bld) [Mass/Vol] 10.6 g/dL Low 12.0-15.0 [facility] Comment on above: Order Comment: 120.1 Performed By: #### L 506.1000, L500.4050, L100.0500, L501.8100, L500.4100 #### [facility] [address] [place], [address] IG% 0.500 Normal 0.0-0.9 [facility] Comment on above: Order Comment: 120.1 Result Comment: IG% - Immature Granulocytes (promyelocytes, myelocytes and metamyelocytes) > 1% indicates that a LEFT SHIFT is Present. Performed By: #### L 506.1000, L500.4050, L100.0500, L501.8100, L500.4100 #### [facility] [address] [place], [address] Lymphocytes/100 WBC (Bld) 24.2 % Normal 19-41 [facility] Comment on above: Order Comment: 120.1 Performed By: #### L 506.1000, L500.4050, L100.0500, L501.8100, L500.4100 #### [facility] [address] [place], [address] MCH (RBC) [Entitic mass] 27.2 pg Normal 27.0-32.0 [facility] Comment on above: Order Comment: 120.1 Performed By: #### L 506.1000, L500.4050, L100.0500, L501.8100, L500.4100 #### [facility] [address] [place], [address] MCHC (RBC) [Mass/Vol] 31.8 g/dL Low 32-36 [facility] Comment on above: Order Comment: 120.1 Performed By: #### L 506.1000, L500.4050, L100.0500, L501.8100, L500.4100 #### [facility] [address] [place], [address] MCV (RBC) [Entitic vol] 85.6 fL Normal 81-99 [facility] Comment on above: Order Comment: 120.1 Performed By: #### L 506.1000, L500.4050, L100.0500, L501.8100, L500.4100 #### [facility] [address] [place], [address] Monocytes/100 WBC (Bld) 7.4 % Normal 0-10 [facility] Comment on above: Order Comment: 120.1 Performed By: #### L 506.1000, L500.4050, L100.0500, L501.8100, L500.4100 #### [facility] [address] [place], [address] Neutrophils/100 WBC (Bld) 65.0 % Normal 47-70 [facility] Comment on above: Order Comment: 120.1 Performed By: #### L 506.1000, L500.4050, L100.0500, L501.8100, L500.4100 #### [facility] [address] [place], [address] Nucleated RBC (Bld) [#/Vol] 0 10*3/uL Normal 0-5 [facility] Comment on above: Order Comment: 120.1 Performed By: #### L 506.1000, L500.4050, L100.0500, L501.8100, L500.4100 #### [facility] [address] [place], [address] Platelet mean volume (Bld) [Entitic vol] 10.1 fL Normal 6.2-12.0 [facility] Comment on above: Order Comment: 120.1 Performed By: #### L 506.1000, L500.4050, L100.0500, L501.8100, L500.4100 #### [facility] [address] [place], [address] Platelets (Bld) [#/Vol] 290 10*3/uL Normal 150-450 [facility] Comment on above: Order Comment: 120.1 Performed By: #### L 506.1000, L500.4050, L100.0500, L501.8100, L500.4100 #### [facility] [address] [place], [address] RBC (Bld) [#/Vol] 3.89 10*6/uL Low 4.2-5.4 [facility] Comment on above: Order Comment: 120.1 Performed By: #### L 506.1000, L500.4050, L100.0500, L501.8100, L500.4100 #### [facility] [address] [place], [address] RDW SD 42.4 fl Normal 35.1-43.9 [facility] Comment on above: Order Comment: 120.1 Performed By: #### L 506.1000, L500.4050, L100.0500, L501.8100, L500.4100 #### [facility] [address] [place], [address] WBC (Bld) [#/Vol] 13.2 10*3/uL High 4.4-11.0 [facility] Comment on above: Order Comment: 120.1 Performed By: #### L 506.1000, L500.4050, L100.0500, L501.8100, L500.4100 #### [facility] [address] [place], [address] Comprehensive Metabolic Prof ilon 01-02-2024 Albumin [Mass/Vol] 2.9 g/dL Low 3.2-5.0 [facility] Comment on above: Order Comment: 120.1 Performed By: #### L 506.1000, L500.4050, L100.0500, L501.8100, L500.4100 #### [facility] [address] [place], [address] Albumin/Globulin [Mass ratio] 0.6 {ratio} Low 0.9-2.4 [facility] Comment on above: Order Comment: 120.1 Performed By: #### L 506.1000, L500.4050, L100.0500, L501.8100, L500.4100 #### [facility] [address] [place], [address] ALK P 80 U/L Normal 45-117 [facility] Comment on above: Order Comment: 120.1 Performed By: #### L 506.1000, L500.4050, L100.0500, L501.8100, L500.4100 #### [facility] [address] [place], [address] ALT [Catalytic activity/Vol] 18 U/L Normal 13-56 [facility] Comment on above: Order Comment: 120.1 Performed By: #### L 506.1000, L500.4050, L100.0500, L501.8100, L500.4100 #### [facility] [address] [place], [address] AST [Catalytic activity/Vol] 21 U/L Normal 15-37 [facility] Comment on above: Order Comment: 120.1 Performed By: #### L 506.1000, L500.4050, L100.0500, L501.8100, L500.4100 #### [facility] [address] [place], [address] Bilirubin [Mass/Vol] 0.20 mg/dL Normal 0.20-1.00 [facility] [place] Comment on above: Order Comment: 120.1 Result Comment: For patients on eltrombopag therapy, use of Dimension [place] TBIL is not recommended. Performed By: #### L 506.1000, L500.4050, L100.0500, L501.8100, L500.4100 #### [facility] [address] [place], [address] BUN/CRE 20.9 RATIO High 10-20 [facility] Comment on above: Order Comment: 120.1 Performed By: #### L 506.1000, L500.4050, L100.0500, L501.8100, L500.4100 #### [facility] [address] [place], [address] CA,Total 10.4 mg/dL High 8.5-10.1 [facility] Comment on above: Order Comment: 120.1 Performed By: #### L 506.1000, L500.4050, L100.0500, L501.8100, L500.4100 #### [facility] [address] [place], [address] Chloride [Moles/Vol] 104 mmol/L Normal 98-107 [facility] Comment on above: Order Comment: 120.1 Performed By: #### L 506.1000, L500.4050, L100.0500, L501.8100, L500.4100 #### [facility] [address] [place], [address] CO2 [Moles/Vol] 29.0 mmol/L Normal 21.0-32.0 [facility] Comment on above: Order Comment: 120.1 Performed By: #### L 506.1000, L500.4050, L100.0500, L501.8100, L500.4100 #### [facility] [address] [place], [address] Creatinine [Mass/Vol] 0.86 mg/dL Normal 0.55-1.02 [facility] Comment on above: Order Comment: 120.1 Result Comment: The validity of the calculated GFR GFRAA in patients over 70 years has not been determined. Clinical correlation is essential. Performed By: #### L 506.1000, L500.4050, L100.0500, L501.8100, L500.4100 #### [facility] [address] [place], [address] EST GFR - AA 85 mL/min Normal >60 [facility] Comment on above: Order Comment: 120.1 Result Comment: Afri can Colombian GFR Calc Performed By: #### L 506.1000, L500.4050, L100.0500, L501.8100, L500.4100 #### [facility] [address] [place], [address] GAP 6 Normal 5-15 [facility] Comment on above: Order Comment: 120.1 Performed By: #### L 506.1000, L500.4050, L100.0500, L501.8100, L500.4100 #### [facility] [address] [place], [address] GFR/1.73 sq M.predicted among non-blacks MDRD (S/P/Bld) [Vol rate/Area] 70 mL/min/{1.73_m2} Normal >60 [facility] Comment on above: Order Comment: 120.1 Result Comment: Non- GFR Calc Performed By: #### L 506.1000, L500.4050, L100.0500, L501.8100, L500.4100 #### [facility] [address] [place], [address] Globulin (S) [Mass/Vol] 4.6 g/dL High 2.2-4.2 [facility] Comment on above: Order Comment: 120.1 Performed By: #### L 506.1000, L500.4050, L100.0500, L501.8100, L500.4100 #### [facility] [address] [place], [address] Glucose [Mass/Vol] 102 mg/dL Normal 74-106 [facility] Comment on above: Order Comment: 120.1 Result Comment: Fast ing Glucose result from 100 to 125 mg/dL suggests IMPAIRED HOMEOSTASIS per A.D.A. criteria. Performed By: #### L 506.1000, L500.4050, L100.0500, L501.8100, L500.4100 #### [facility] [address] [place], [address] Potassium [Moles/Vol] 4.0 mmol/L Normal 3.5-5.1 [facility] Comment on above: Order Comment: 120.1 Performed By: #### L 506.1000, L500.4050, L100.0500, L501.8100, L500.4100 #### [facility] [address] [place], [address] Sodium [Moles/Vol] 139 mmol/L Normal 136-145 [facility] Comment on above: Order Comment: 120.1 Performed By: #### L 506.1000, L500.4050, L100.0500, L501.8100, L500.4100 #### [facility] [address] [place], [address] T PROT 7.5 g/dL Normal 6.4-8.2 [facility] Comment on above: Order Comment: 120.1 Performed By: #### L 506.1000, L500.4050, L100.0500, L501.8100, L500.4100 #### [facility] [address] [place], [address] Urea nitrogen [Mass/Vol] 18 mg/dL Normal 7-18 [facility] Comment on above: Order Comment: 120.1 Performed By: #### L 506.1000, L500.4050, L100.0500, L501.8100, L500.4100 #### [facility] [address] [place], [address] Valproic Acid (Depakene) Lev alpa 01-02-2024 VALPROIC ACID 82 ug/mL Normal 50-100 [facility] Comment on above: Order Comment: 120.1 Performed By: #### L 506.1000, L500.4050, L100.0500, L501.8100, L500.4100 #### [facility] [address] [place], [address] CBC-Complete Blood Cnt No Di ffon 12-20-2023 Erythrocyte distribution width (RBC) [Ratio] 13.6 % Normal 11.6-14.6 [facility] Comment on above: Order Comment: 120.1 Performed By: #### L 500.4050, L100.0500 #### [facility] [address] [place], [address] Hematocrit (Bld) [Volume fraction] 33.0 % Low 37-47 [facility] Comment on above: Order Comment: 120.1 Performed By: #### L 500.4050, L100.0500 #### [facility] [address] [place], [address] Hemoglobin (Bld) [Mass/Vol] 10.5 g/dL Low 12.0-15.0 [facility] Comment on above: Order Comment: 120.1 Performed By: #### L 500.4050, L100.0500 #### [facility] [address] [place], [address] MCH (RBC) [Entitic mass] 27.3 pg Normal 27.0-32.0 [facility] Comment on above: Order Comment: 120.1 Performed By: #### L 500.4050, L100.0500 #### [facility] [address] [place], [address] MCHC (RBC) [Mass/Vol] 31.8 g/dL Low 32-36 [facility] Comment on above: Order Comment: 120.1 Performed By: #### L 500.4050, L100.0500 #### [facility] [address] [place], [address] MCV (RBC) [Entitic vol] 85.7 fL Normal 81-[address] [facility] Comment on above: Order Comment: 120.1 Performed By: #### L 500.4050, L100.0500 #### [facility] [address] [place], [address] Platelet mean volume (Bld) [Entitic vol] 9.4 fL Normal 6.2-12.0 [facility] Comment on above: Order Comment: 120.1 Performed By: #### L 500.4050, L100.0500 #### [facility] [address] [place], [address] Platelets (Bld) [#/Vol] 321 10*3/uL Normal 150-450 [facility] Comment on above: Order Comment: 120.1 Performed By: #### L 500.4050, L100.0500 #### [facility] [address] [place], [address] RBC (Bld) [#/Vol] 3.85 10*6/uL Low 4.2-5.4 [facility] Comment on above: Order Comment: 120.1 Performed By: #### L 500.4050, L100.0500 #### [facility] [address] [place], [address] RDW SD 42.5 fl Normal 35.1-43.9 [facility] Comment on above: Order Comment: 120.1 Performed By: #### L 500.4050, L100.0500 #### [facility] [address] [place], [address] WBC (Bld) [#/Vol] 10.3 10*3/uL Normal 4.4-11.0 [facility] Comment on above: Order Comment: 120.1 Performed By: #### L 500.4050, L100.0500 #### [facility] [address] [place], [address] Comprehensive Metabolic Prof ilon 12-20-2023 Albumin [Mass/Vol] 2.7 g/dL Low 3.2-5.0 [facility] Comment on above: Order Comment: 120.1 Performed By: #### L 500.4050, L100.0500 #### [facility] [address] [place], [address] Albumin/Globulin [Mass ratio] 0.6 {ratio} Low 0.9-2.4 [facility] Comment on above: Order Comment: 120.1 Performed By: #### L 500.4050, L100.0500 #### [facility] [address] [place], [address] ALK P 78 U/L Normal 45-117 [facility] Comment on above: Order Comment: 120.1 Performed By: #### L 500.4050, L100.0500 #### [facility] [address] [place], [address] ALT [Catalytic activity/Vol] 17 U/L Normal 13-56 [facility] Comment on above: Order Comment: 120.1 Performed By: #### L 500.4050, L100.0500 #### [facility] [address] [place], [address] AST [Catalytic activity/Vol] 21 U/L Normal 15-37 [facility] Comment on above: Order Comment: 120.1 Performed By: #### L 500.4050, L100.0500 #### [facility] [address] [place], [address] Bilirubin [Mass/Vol] 0.20 mg/dL Normal 0.20-1.00 [facility] Comment on above: Order Comment: 120.1 Result Comment: For patients on eltrombopag therapy, use of Dimension [place] TBIL is not recommended. Performed By: #### L 500.4050, L100.0500 #### [facility] [address] [place], [address] BUN/CRE 27.9 RATIO High 10-20 [facility] Comment on above: Order Comment: 120.1 Performed By: #### L 500.4050, L100.0500 #### [facility] [address] [place], [address] CA,Total 10.4 mg/dL High 8.5-10.1 [facility] Comment on above: Order Comment: 120.1 Performed By: #### L 500.4050, L100.0500 #### [facility] [address] [place], [address] Chloride [Moles/Vol] 104 mmol/L Normal 98-107 [facility] Comment on above: Order Comment: 120.1 Performed By: #### L 500.4050, L100.0500 #### [facility] [address] [place], [address] CO2 [Moles/Vol] 25.0 mmol/L Normal 21.0-32.0 [facility] Comment on above: Order Comment: 120.1 Performed By: #### L 500.4050, L100.0500 #### [facility] [address] [place], [address] Creatinine [Mass/Vol] 0.79 mg/dL Normal 0.55-1.02 [facility] Comment on above: Order Comment: 120.1 Result Comment: The validity of the calculated GFR GFRAA in patients over 70 years has not been determined. Clinical correlation is essential. Performed By: #### L 500.4050, L100.0500 #### [facility] [address] [place], [address] EST GFR - AA 94 mL/min Normal >60 [facility] Comment on above: Order Comment: 120.1 Result Comment: Afri can [place]ian GFR Calc Performed By: #### L 500.4050, L100.0500 #### [facility] [address] [place], [address] GAP 7 Normal 5-15 [facility] Comment on above: Order Comment: 120.1 Performed By: #### L 500.4050, L100.0500 #### [facility] [address] [place], [address] GFR/1.73 sq M.predicted among non-blacks MDRD (S/P/Bld) [Vol rate/Area] 77 mL/min/{1.73_m2} Normal >60 [facility] Comment on above: Order Comment: 120.1 Result Comment: Non- GFR Calc Performed By: #### L 500.4050, L100.0500 #### [facility] [address] [place], [address] Globulin (S) [Mass/Vol] 4.9 g/dL High 2.2-4.2 [facility] Comment on above: Order Comment: 120.1 Performed By: #### L 500.4050, L100.0500 #### [facility] [address] [place], [address] Glucose [Mass/Vol] 95 mg/dL Normal 74-106 [facility] Comment on above: Order Comment: 120.1 Performed By: #### L 500.4050, L100.0500 #### [facility] [address] [place], [address] Potassium [Moles/Vol] 4.0 mmol/L Normal 3.5-5.1 [facility] Comment on above: Order Comment: 120.1 Performed By: #### L 500.4050, L100.0500 #### [facility] [address] [place], [address] Sodium [Moles/Vol] 136 mmol/L Normal 136-145 [facility] Comment on above: Order Comment: 120.1 Performed By: #### L 500.4050, L100.0500 #### [facility] [address] [place], [address] T PROT 7.6 g/dL Normal 6.4-8.2 [facility] Comment on above: Order Comment: 120.1 Performed By: #### L 500.4050, L100.0500 #### [facility] [address] [place], [address] Urea nitrogen [Mass/Vol] 22 mg/dL High 7-18 [facility] Comment on above: Order Comment: 120.1 Performed By: #### L 500.4050, L100.0500 #### [facility] [address] [place], [address] CBC-Complete Blood Cnt No Di ffon 11-19-2023 Erythrocyte distribution width (RBC) [Ratio] 14.4 % Normal 11.6-14.6 [facility] Comment on above: Order Comment: 120.1 Performed By: #### L 506.1000, L500.4050, L100.0500, L501.8100, L500.4100 #### [facility] [address] [place], [address] Hematocrit (Bld) [Volume fraction] 31.1 % Low 37-47 [facility] Comment on above: Order Comment: 120.1 Performed By: #### L 506.1000, L500.4050, L100.0500, L501.8100, L500.4100 #### [facility] [address] [place], [address] Hemoglobin (Bld) [Mass/Vol] 10.0 g/dL Low 12.0-15.0 [facility] Comment on above: Order Comment: 120.1 Performed By: #### L 506.1000, L500.4050, L100.0500, L501.8100, L500.4100 #### [facility] [address] [place], [address] MCH (RBC) [Entitic mass] 27.4 pg Normal 27.0-32.0 [facility] Comment on above: Order Comment: 120.1 Performed By: #### L 506.1000, L500.4050, L100.0500, L501.8100, L500.4100 #### [facility] [address] [place], [address] MCHC (RBC) [Mass/Vol] 32.2 g/dL Normal 32-36 [facility] Comment on above: Order Comment: 120.1 Performed By: #### L 506.1000, L500.4050, L100.0500, L501.8100, L500.4100 #### [facility] [address] [place], [address] MCV (RBC) [Entitic vol] 85.2 fL Normal 81-[address] [facility] Comment on above: Order Comment: 120.1 Performed By: #### L 506.1000, L500.4050, L100.0500, L501.8100, L500.4100 #### [facility] [address] [place], [address] Platelet mean volume (Bld) [Entitic vol] 9.7 fL Normal 6.2-12.0 [facility] Comment on above: Order Comment: 120.1 Performed By: #### L 506.1000, L500.4050, L100.0500, L501.8100, L500.4100 #### [facility] [address] [place], [address] Platelets (Bld) [#/Vol] 242 10*3/uL Normal 150-450 [facility] Comment on above: Order Comment: 120.1 Performed By: #### L 506.1000, L500.4050, L100.0500, L501.8100, L500.4100 #### [facility] [address] [place], [address] RBC (Bld) [#/Vol] 3.65 10*6/uL Low 4.2-5.4 [facility] Comment on above: Order Comment: 120.1 Performed By: #### L 506.1000, L500.4050, L100.0500, L501.8100, L500.4100 #### [facility] [address] [place], [address] RDW SD 44.6 fl High 35.1-43.9 [facility] Comment on above: Order Comment: 120.1 Performed By: #### L 506.1000, L500.4050, L100.0500, L501.8100, L500.4100 #### [facility] [address] [place], [address] WBC (Bld) [#/Vol] 10.3 10*3/uL Normal 4.4-11.0 [facility] Comment on above: Order Comment: 120.1 Performed By: #### L 506.1000, L500.4050, L100.0500, L501.8100, L500.4100 #### [facility] [address] [place], [address] Comprehensive Metabolic Prof [facility] 11-19-2023 Albumin [Mass/Vol] 2.6 g/dL Low 3.2-5.0 [facility] Comment on above: Order Comment: 120.1 Performed By: #### L 506.1000, L500.4050, L100.0500, L501.8100, L500.4100 #### [facility] [address] [place] [place], [address] Albumin/Globulin [Mass ratio] 0.6 {ratio} Low 0.9-2.4 [facility] Comment on above: Order Comment: 120.1 Performed By: #### L 506.1000, L500.4050, L100.0500, L501.8100, L500.4100 #### [facility] [address] [place], [address] ALK P 63 U/L Normal 45-117 [facility] Comment on above: Order Comment: 120.1 Performed By: #### L 506.1000, L500.4050, L100.0500, L501.8100, L500.4100 #### [facility] [address] [place], [address] ALT [Catalytic activity/Vol] 19 U/L Normal 13-56 [facility] Comment on above: Order Comment: 120.1 Performed By: #### L 506.1000, L500.4050, L100.0500, L501.8100, L500.4100 #### [facility] [address] [place], [address] AST [Catalytic activity/Vol] 35 U/L Normal 15-37 [facility] Comment on above: Order Comment: 120.1 Performed By: #### L 506.1000, L500.4050, L100.0500, L501.8100, L500.4100 #### [facility] [address] [place], [address] Bilirubin [Mass/Vol] 0.20 mg/dL Normal 0.20-1.00 [facility] [place] Comment on above: Order Comment: 120.1 Result Comment: For patients on eltrombopag therapy, use of Dimension [place] TBIL is not recommended. Performed By: #### L 506.1000, L500.4050, L100.0500, L501.8100, L500.4100 #### [facility] [address] [place], [address] BUN/CRE 25.9 RATIO High 10-20 [facility] Comment on above: Order Comment: 120.1 Performed By: #### L 506.1000, L500.4050, L100.0500, L501.8100, L500.4100 #### [facility] [address] [place], [address] CA,Total 9.5 mg/dL Normal 8.5-10.1 [facility] Comment on above: Order Comment: 120.1 Performed By: #### L 506.1000, L500.4050, L100.0500, L501.8100, L500.4100 #### [facility] [address] [place], [address] Chloride [Moles/Vol] 103 mmol/L Normal 98-107 [facility] [place] Comment on above: Order Comment: 120.1 Performed By: #### L 506.1000, L500.4050, L100.0500, L501.8100, L500.4100 #### [facility] [address] [place], [address] CO2 [Moles/Vol] 25.0 mmol/L Normal 21.0-32.0 [facility] Comment on above: Order Comment: 120.1 Performed By: #### L 506.1000, L500.4050, L100.0500, L501.8100, L500.4100 #### [facility] [address] [place], [address] Creatinine [Mass/Vol] 0.81 mg/dL Normal 0.55-1.02 [facility] Comment on above: Order Comment: 120.1 Result Comment: The validity of the calculated GFR GFRAA in patients over 70 years has not been determined. Clinical correlation is essential. Performed By: #### L 506.1000, L500.4050, L100.0500, L501.8100, L500.4100 #### [facility] [address] [place], [address] EST GFR - AA 90 mL/min Normal >60 [facility] Comment on above: Order Comment: 120.1 Result Comment: Afri can [place]ian GFR Calc Performed By: #### L 506.1000, L500.4050, L100.0500, L501.8100, L500.4100 #### [facility] [address] [place], [address] GAP 9 Normal 5-15 [facility] Comment on above: Order Comment: 120.1 Performed By: #### L 506.1000, L500.4050, L100.0500, L501.8100, L500.4100 #### [facility] [address] [place], [address] GFR/1.73 sq M.predicted among non-blacks MDRD (S/P/Bld) [Vol rate/Area] 75 mL/min/{1.73_m2} Normal >60 [facility] Comment on above: Order Comment: 120.1 Result Comment: Non- GFR Calc Performed By: #### L 506.1000, L500.4050, L100.0500, L501.8100, L500.4100 #### [facility] [address] [place], [address] Globulin (S) [Mass/Vol] 4.2 g/dL Normal 2.2-4.[address] [facility] Comment on above: Order Comment: 120.1 Performed By: #### L 506.1000, L500.4050, L100.0500, L501.8100, L500.4100 #### [facility] [address] [place], [address] Glucose [Mass/Vol] 86 mg/dL Normal 74-106 [facility] Comment on above: Order Comment: 120.1 Performed By: #### L 506.1000, L500.4050, L100.0500, L501.8100, L500.4100 #### [facility] [address] [place], [address] Potassium [Moles/Vol] 4.2 mmol/L Normal 3.5-5.1 [facility] Comment on above: Order Comment: 120.1 Performed By: #### L 506.1000, L500.4050, L100.0500, L501.8100, L500.4100 #### [facility] [address] [place], [address] Sodium [Moles/Vol] 137 mmol/L Normal 136-145 [facility] Comment on above: Order Comment: 120.1 Performed By: #### L 506.1000, L500.4050, L100.0500, L501.8100, L500.4100 #### [facility] [address] [place], [address] T PROT 6.8 g/dL Normal 6.4-8.2 [facility] Comment on above: Order Comment: 120.1 Performed By: #### L 506.1000, L500.4050, L100.0500, L501.8100, L500.4100 #### [facility] [address] [place], [address] Urea nitrogen [Mass/Vol] 21 mg/dL High 7-18 [facility] Comment on above: Order Comment: 120.1 Performed By: #### L 506.1000, L500.4050, L100.0500, L501.8100, L500.4100 #### [facility] [address] [place], [address] Lipid Profileon 11-19-2023 Cholesterol [Mass/Vol] 76 mg/dL Normal 200 [facility] Comment on above: Order Comment: 120.1 Result Comment: <200 mg/dL Desirable 200-240 mg/dL Borderline >240 mg/dL High Risk Performed By: #### L 506.1000, L500.4050, L100.0500, L501.8100, L500.4100 #### [facility] [address] [place], [address] Cholesterol in HDL [Mass/Vol] 47 mg/dL Normal [facility] Comment on above: Order Comment: 120.1 Result Comment: The drugs N-Acetylcysteine and Metamizole may falsely depress this assay. Reference Range HDL <40 mg/dL Low HDL Cholesterol HDL >or= 60 mg/dL High HDL Cholesterol Performed By: #### L 506.1000, L500.4050, L100.0500, L501.8100, L500.4100 #### [facility] [address] [place], [address] Cholesterol in LDL [Mass/Vol] 5 mg/dL Normal 0-130 [facility] Comment on above: Order Comment: 120.1 Performed By: #### L 506.1000, L500.4050, L100.0500, L501.8100, L500.4100 #### [facility] [address] [place], [address] Cholesterol in VLDL [Mass/Vol] 24 mg/dL Normal 5-40 [facility] Comment on above: Order Comment: 120.1 Performed By: #### L 506.1000, L500.4050, L100.0500, L501.8100, L500.4100 #### [facility] [address] [place], [address] Triglyceride [Mass/Vol] 118 mg/dL Normal [facility] Comment on above: Order Comment: 120.1 Result Comment: The drugs N-Acetylcysteine and Metamizole may falsely depress this assay. Serum Triglycerides Reference Interval Normal <150 mg/dL Borderline high 150 - 199 mg/dL High 200 - 499 mg/dL Very High > or = 500 mg/dL Performed By: #### L 506.1000, L500.4050, L100.0500, L501.8100, L500.4100 #### [facility] [address] [place], [address] Valproic Acid (Depakene) Lev alpa 11-19-2023 VALPROIC ACID 87 ug/mL Normal 50-100 [facility] Comment on above: Order Comment: 120.1 Performed By: #### L 506.1000, L500.4050, L100.0500, L501.8100, L500.4100 #### [facility] [address] [place], [address] Vitamin D,25 Hydroxyon 11-18 Vitamin D 25-OH 50.6 ng/mL Normal [facility] Comment on above: Order Comment: 120.1 Result Comment: Debo min D 25(OH) Status Range Deficiency <20 ng/mL (50nmol/L) Insufficiency 20 - 30 ng/mL (50 - 75 nmol/L) Sufficiency 30 - 100 ng/mL (75 - 250 nmol/L) Toxicity >100 ng/mL (>250 nmol/L) Performed By: #### L 506.1000, L500.4050, L100.0500, L501.8100, L500.4100 #### [facility] [address] [place], [place], [address] .Auto Diffon 08-11-2023 Basophil, Absolute 0.0 10 3/mcL Normal 0.0-0.3 [facility] ([place]) Comment on above: Performed By: #### A UNRULY, VALPR, CBC, ADIFF, BMP, GFR, AMM #### [facility] [address] [place], [place] [address] Basophils/100 WBC (Bld) 0.4 % Normal 0.0-2.5 [facility] ([place]) Comment on above: Performed By: #### A UNRULY, VALPR, CBC, ADIFF, BMP, GFR, AMM #### [address] [address] Eosinophil, Absolute 0.1 10 3/mcL Normal 0.0-0.7 [facility] ([place]) Comment on above: Performed By: #### A UNRULY, VALPR, CBC, ADIFF, BMP, GFR, AMM #### [address] [address] Eosinophils/100 WBC (Bld) 0.7 % Normal 0.0-6.0 [facility] ([place]) Comment on above: Performed By: #### A UNRULY, VALPR, CBC, ADIFF, BMP, GFR, AMM #### [address] [address] Lymphocyte, Absolute 3.1 10 3/mcL Normal 0.9-4.3 [facility] ([place]) Comment on above: Performed By: #### A UNRULY, VALPR, CBC, ADIFF, BMP, GFR, AMM #### [address] [address] Lymphocytes/100 WBC (Bld) 40.1 % High 20.0-40.0 [facility] ([place]) Comment on above: Performed By: #### A UNRULY, VALPR, CBC, ADIFF, BMP, GFR, AMM #### [address] [address] Monocyte, Absolute 0.8 10 3/mcL Normal 0.1-1.4 [facility] ([place]) Comment on above: Performed By: #### A UNRULY, VALPR, CBC, ADIFF, BMP, GFR, AMM #### [address] [address] Monocytes/100 WBC (Bld) 10.4 % Normal 2.0-13.0 A [facility] ([place]) Comment on above: Performed By: #### A UNRULY, VALPR, CBC, ADIFF, BMP, GFR, AMM #### [address] [address] Neutrophils/100 WBC (Bld) 48.4 % Low 50.0-75.0 [facility] ([place]) Comment on above: Performed By: #### A UNRULY, VALPR, CBC, ADIFF, BMP, GFR, AMM #### [address] [address] .GFRon 08-11-2023 GFR >60 Normal [facility] ([place]) Comment on above: Result Comment: GFR Population [...] VALPR, CBC, ADIFF, BMP, GFR, AMM #### [address] [address] GFR Non- >60 Normal [facility] ([place]) Comment on above: Result Comment: GFR Population [...] VALPR, CBC, ADIFF, BMP, GFR, AMM #### [address] [address] .NEUABSon 08-11-2023 Neutrophil, Absolute 3.7 10 3/mcL Normal 2.3-8.1 [facility] ([place]) Comment on above: Performed By: #### A UNRULY, VALPR, CBC, ADIFF, BMP, GFR, AMM #### [address] [address] BMPon 08-11-2023 BUN/Creatinine Ratio 38.7 ratio High 10.0-22.0 [facility] ([place]) Comment on above: Performed By: #### A UNRULY, VALPR, CBC, ADIFF, BMP, GFR, AMM #### [address] [address] Calcium [Mass/Vol] 8.4 mg/dL Low 8.7-10.4 [facility] ([place]) Comment on above: Performed By: #### A UNRULY, VALPR, CBC, ADIFF, BMP, GFR, AMM #### [place] [address] Chloride [Moles/Vol] 111 mmol/L High 98-110 [facility] ([place]) Comment on above: Performed By: #### A UNRULY, VALPR, CBC, ADIFF, BMP, GFR, AMM #### [address] [address] CO2 [Moles/Vol] 24 mmol/L Normal 22-32 [facility] ([place]) Comment on above: Performed By: #### A UNRULY, VALPR, CBC, ADIFF, BMP, GFR, AMM #### [address] [address] Creatinine [Mass/Vol] 0.75 mg/dL Normal 0.50-1.20 [facility] ([place]) Comment on above: Performed By: #### A UNRULY, VALPR, CBC, ADIFF, BMP, GFR, AMM #### [address] [address] Electrolyte Balance 7.0 mEq/L Normal 4.0-15.0 [facility] ([place]) Comment on above: Performed By: #### A UNRULY, VALPR, CBC, ADIFF, BMP, GFR, AMM #### [address] [address] Glucose [Mass/Vol] 72 mg/dL Low 82-115 [facility] ([place]) Comment on above: Performed By: #### A UNRULY, VALPR, CBC, ADIFF, BMP, GFR, AMM #### [address] [address] Potassium [Moles/Vol] 4.8 mmol/L Normal 3.5-5.0 [facility] ([place]) Comment on above: Performed By: #### A UNRULY, VALPR, CBC, ADIFF, BMP, GFR, AMM #### [address] [address] Sodium [Moles/Vol] 142 mmol/L Normal 136-145 [facility] ([place]) Comment on above: Performed By: #### A UNRULY, VALPR, CBC, ADIFF, BMP, GFR, AMM #### [address] [address] Urea nitrogen [Mass/Vol] 29.0 mg/dL High 8.0-22.0 [facility] ([place]) Comment on above: Performed By: #### A UNRULY, VALPR, CBC, ADIFF, BMP, GFR, AMM #### [address] [address] CBCon 08-11-2023 Erythrocyte distribution width (RBC) [Ratio] 15.1 % Normal 11.5-15.5 [facility] ([place]) Comment on above: Performed By: #### A UNRULY, VALPR, CBC, ADIFF, BMP, GFR, AMM #### [address] [address] Hematocrit (Bld) [Volume fraction] 33.5 % Low 34.0-46.0 [facility] ([place]) Comment on above: Performed By: #### A UNRULY, VALPR, CBC, ADIFF, BMP, GFR, AMM #### [place] [id number] Hgb 11.4 G/dL Low 12.0-16.0 [facility] ([place]) Comment on above: Performed By: #### A UNRULY, VALPR, CBC, ADIFF, BMP, GFR, AMM #### [place] [id number] MCH (RBC) [Entitic mass] 29.0 pg Normal 27.0-33.0 [facility] ([place]) Comment on above: Performed By: #### A UNRULY, VALPR, CBC, ADIFF, BMP, GFR, AMM #### [place] [address] MCHC 34.0 G/dL Normal 32.0-36.0 [facility] ([place]) Comment on above: Performed By: #### A UNRULY, VALPR, CBC, ADIFF, BMP, GFR, AMM #### [place] [address] MCV (RBC) [Entitic vol] 85.4 fL Normal 80.0-99.0 A [facility] ([place]) Comment on above: Performed By: #### A UNRULY, VALPR, CBC, ADIFF, BMP, GFR, AMM #### [place] [address] Platelet 293 10 3/mcL Normal 150-450 [facility] ([place]) Comment on above: Performed By: #### A UNRULY, VALPR, CBC, ADIFF, BMP, GFR, AMM #### [place] [address] Platelet mean volume (Bld) [Entitic vol] 7.4 fL Normal 6.6-10.5 [facility] ([place]) Comment on above: Performed By: #### A UNRULY, VALPR, CBC, ADIFF, BMP, GFR, AMM #### [place] [address] RBC 3.92 10 6/mcL Low 4.10-5.30 [facility] ([place]) Comment on above: Performed By: #### A UNRULY, VALPR, CBC, ADIFF, BMP, GFR, AMM #### [place] [id number] WBC 7.7 10 3/mcL Normal 4.5-10.8 [facility] ([place]) Comment on above: Performed By: #### A UNRULY, VALPR, CBC, ADIFF, BMP, GFR, AMM #### [place] [address] LABORATORYOrdered By: SYSTEM SYSTEM on 08-11-2023 Basophils (Bld) [#/Vol] 0.0 103/mcL Normal 0.0 - 0.3 10^3/mcL Workflow SS Basophils/100 WBC (Bld) 0.4 % [...] 0.1 103/mcL Normal 0.0 - 0.7 10^3/mcL Workflow SS Eosinophils/100 WBC (Bld) 0.7 % [...] 34.0 G/dL Normal 32.0 - 36.0 G/dL AH Workflow SS MCV (RBC) [Entitic vol] 85.4 [...] 4.8 mmol/L Normal 3.5 - 5.0 mEq/L AH ADM SS RBC (Bld) [#/Vol] 3.92 106/mcL Low 4.10 - 5.3 0 10^6/mcL AH Workflow SS Sodium [Moles/Vol] 142 mmol/L Normal 136 - 145 mEq/L ADM SS Urea nitrogen [Mass/Vol] 29.0 mg/dL High 8.0 - 22.0 mg/dL ADM SS Urea nitrogen/Creatinine [Mass ratio] 38.7 ratio High 10.0 - 22.0 ratio AH ADM SS WBC (Bld) [#/Vol] 7.7 103/mcL Normal 4.5 - 10.8 10^3/mcL AH Workflow SS .Auto Diffon 08-10-2023 Basophil, Absolute 0.0 10 3/mcL Normal 0.0-0.3 [facility] ([place]) Comment on above: Performed By: #### A UNRULY, ADIFF, GFR, BMP, CBC ####[address] [address] Basophils/100 WBC (Bld) 0.1 % Normal 0.0-2.5 A [facility] ([place]) Comment on above: Performed By: #### A UNRULY, ADIFF, GFR, BMP, CBC ####[place] [id number] [place] [address] Eosinophil, Absolute 0.0 10 3/mcL Normal 0.0-0.7 [facility] ([place]) Comment on above: Performed By: #### A UNRULY, ADIFF, GFR, BMP, CBC ####[address] [address] Eosinophils/100 WBC (Bld) 0.1 % Normal 0.0-6.0 [facility] ([place]) Comment on above: Performed By: #### A UNRULY, ADIFF, GFR, BMP, CBC ####[address] [address] Lymphocyte, Absolute 2.6 10 3/mcL Normal 0.9-4.3 [facility] ([place]) Comment on above: Performed By: #### A UNRULY, ADIFF, GFR, BMP, CBC ####[address] [address] Lymphocytes/100 WBC (Bld) 37.5 % Normal 20.0-40.0 [facility] ([place]) Comment on above: Performed By: #### A UNRULY, ADIFF, GFR, BMP, CBC ####[address] [address] Monocyte, Absolute 0.7 10 3/mcL Normal 0.1-1.4 [facility] ([place]) Comment on above: Performed By: #### A UNRULY, ADIFF, GFR, BMP, CBC ####[address] [address] Monocytes/100 WBC (Bld) 9.4 % Normal 2.0-13.0 [facility] ([place]) Comment on above: Performed By: #### A UNRULY, ADIFF, GFR, BMP, CBC ####[address] [address] Neutrophils/100 WBC (Bld) 52.9 % Normal 50.0-75.0 [facility] ([place]) Comment on above: Performed By: #### A UNRULY, ADIFF, GFR, BMP, CBC ####[address] [address] .GFRon 08-10-2023 GFR >60 Normal [facility] ([place]) Comment on above: Result Comment: GFR Population [...] #### A UNRULY, ADIFF, GFR, BMP, CBC ####[address] [address] GFR Non- >60 Normal [facility] ([place]) Comment on above: Result Comment: GFR Population [...] #### A UNRULY, ADIFF, GFR, BMP, CBC ####[place] [address] .NEUABSon 08-10-2023 Neutrophil, Absolute 3.7 10 3/mcL Normal 2.3-8.1 [facility] ([place]) Comment on above: Performed By: #### A UNRULY, ADIFF, GFR, BMP, CBC ####[place] [address] BMPon 08-10-2023 BUN/Creatinine Ratio 38.8 ratio High 10.0-22.0 [facility] ([place]) Comment on above: Performed By: #### A UNRULY, ADIFF, GFR, BMP, CBC ####[place] [address] Calcium [Mass/Vol] 8.6 mg/dL Low 8.7-10.4 [facility] ([place]) Comment on above: Performed By: #### A UNRULY, ADIFF, GFR, BMP, CBC ####[address] [address] Chloride [Moles/Vol] 112 mmol/L High 98-110 [facility] ([place]) Comment on above: Performed By: #### A UNRULY, ADIFF, GFR, BMP, CBC ####[address] [address] CO2 [Moles/Vol] 23 mmol/L Normal 22-32 [facility] ([place]) Comment on above: Performed By: #### A UNRULY, ADIFF, GFR, BMP, CBC ####[address] [address] Creatinine [Mass/Vol] 0.80 mg/dL Normal 0.50-1.20 [facility] ([place]) Comment on above: Performed By: #### A UNRULY, ADIFF, GFR, BMP, CBC ####[address] [address] Electrolyte Balance 6.0 mEq/L Normal 4.0-15.0 [facility] ([place]) Comment on above: Performed By: #### A UNRULY, ADIFF, GFR, BMP, CBC ####[address] [address] Glucose [Mass/Vol] 76 mg/dL Low 82-115 [facility] ([place]) Comment on above: Performed By: #### A UNRULY, ADIFF, GFR, BMP, CBC ####[address] [address] Potassium [Moles/Vol] 4.4 mmol/L Normal 3.5-5.0 [facility] ([place]) Comment on above: Performed By: #### A UNRULY, ADIFF, GFR, BMP, CBC ####[address] [address] Sodium [Moles/Vol] 141 mmol/L Normal 136-145 [facility] ([place]) Comment on above: Performed By: #### A UNRULY, ADIFF, GFR, BMP, CBC ####[address] [address] Urea nitrogen [Mass/Vol] 31.0 mg/dL High 8.0-22.0 [facility] ([place]) Comment on above: Performed By: #### A UNRULY, ADIFF, GFR, BMP, CBC ####[address] [address] CBCon 08-10-2023 Erythrocyte distribution width (RBC) [Ratio] 15.3 % Normal 11.5-15.5 [facility] ([place]) Comment on above: Performed By: #### A UNRULY, ADIFF, GFR, BMP, CBC ####[place] [address] Hematocrit (Bld) [Volume fraction] 32.5 % Low 34.0-46.0 [facility] ([place]) Comment on above: Performed By: #### A UNRULY, ADIFF, GFR, BMP, CBC ####[place] [address] Hgb 10.8 G/dL Low 12.0-16.0 [facility] ([place]) Comment on above: Performed By: #### A UNRULY, ADIFF, GFR, BMP, CBC ####[place] [address] MCH (RBC) [Entitic mass] 28.1 pg Normal 27.0-33.0 [facility] ([place]) Comment on above: Performed By: #### A UNRULY, ADIFF, GFR, BMP, CBC ####[place] [address] MCHC 33.1 G/dL Normal 32.0-36.0 [facility] ([place]) Comment on above: Performed By: #### A UNRULY, ADIFF, GFR, BMP, CBC ####[place] [address] MCV (RBC) [Entitic vol] 85.0 fL Normal 80.0-99.0 A [facility] ([place]) Comment on above: Performed By: #### A UNRULY, ADIFF, GFR, BMP, CBC ####[place] [address] Platelet 307 10 3/mcL Normal 150-450 [facility] ([place]) Comment on above: Performed By: #### A UNRULY, ADIFF, GFR, BMP, CBC ####[place] [address] Platelet mean volume (Bld) [Entitic vol] 7.4 fL Normal 6.6-10.5 [facility] ([place]) Comment on above: Performed By: #### A UNRULY, ADIFF, GFR, BMP, CBC ####[place] [address] RBC 3.83 10 6/mcL Low 4.10-5.30 [facility] ([place]) Comment on above: Performed By: #### A UNRULY, ADIFF, GFR, BMP, CBC ####[place] [address] WBC 6.9 10 3/mcL Normal 4.5-10.8 [facility] ([place]) Comment on above: Performed By: #### A UNRULY, ADIFF, GFR, BMP, CBC ####[place] [address] LABORATORYOrdered By: SYSTEM SYSTEM on 08-10-2023 Basophils (Bld) [#/Vol] 0.0 103/mcL Normal 0.0 - 0.3 10^3/mcL Workflow SS Basophils/100 WBC (Bld) 0.1 % Normal 0.0 - 2.5 % Workflow SS Calcium [Mass/Vol] 8.6 mg/dL Low 8.7 - 10. 4 mg/dL ADM SS Chloride [Moles/Vol] 112 mmol/L High 98 - 11 0 mEq/L ADM SS CO2 [Moles/Vol] 23 mmol/L Normal 22 - 32 mEq/L ADM SS Creatinine [Mass/Vol] 0.80 mg/dL Normal 0.50 - 1.20 mg/dL ADM SS Electrolyte Balance 6.0 mEq/L Normal 4.0 - 15 .0 mEq/L ADM SS Eosinophils (Bld) [#/Vol] 0.0 103/mcL Normal 0.0 - 0.7 10^3/mcL AH Workflow SS Eosinophils/100 WBC (Bld) 0.1 % Normal 0.0 - 6.0 % AH Workflow SS Erythrocyte distribution width (RBC) [Ratio] 15.3 % Normal 11.5 - 15.5 % Workflow SS GFR/1.73 sq M.predicted among blacks MDRD (S/P/Bld) [Vol rate/Area] ml/min/1.73sqm Invalid Interpretation Code [place] [facility] S Comment on above: Interpretive Data: [...] (S/P/Bld) [Vol rate/Area] ml/min/1.73sqm Invalid Interpretation Code [facility] [facility] Comment on above: Interpretive Data: [...] 2.6 103/mcL Normal 0.9 - 4.3 10^3/mcL AH Workflow SS Lymphocytes/100 WBC (Bld) 37.5 % [...] Basophil, Absolute 0.0 10 3/mcL Normal 0.0-0.3 [facility] ([place]) Comment on above: Performed By: #### A UNRULY, VALPR, CBC, ADIFF, BMP, GFR, AMM #### [address] [address] Basophils/100 WBC (Bld) 0.3 % Normal 0.0-2.5 A [facility] ([place]) Comment on above: Performed By: #### A UNRULY, VALPR, CBC, ADIFF, BMP, GFR, AMM #### [address] [address] Eosinophil, Absolute 0.2 10 3/mcL Normal 0.0-0.7 [facility] ([place]) Comment on above: Performed By: #### A UNRULY, VALPR, CBC, ADIFF, BMP, GFR, AMM #### [address] [address] Eosinophils/100 WBC (Bld) 2.2 % Normal 0.0-6.0 [facility] ([place]) Comment on above: Performed By: #### A UNRULY, VALPR, CBC, ADIFF, BMP, GFR, AMM #### [address] [address] Lymphocyte, Absolute 1.9 10 3/mcL Normal 0.9-4.3 [facility] ([place]) Comment on above: Performed By: #### A UNRULY, VALPR, CBC, ADIFF, BMP, GFR, AMM #### [address] [address] Lymphocytes/100 WBC (Bld) 25.8 % Normal 20.0-40.0 [facility] ([place]) Comment on above: Performed By: #### A UNRULY, VALPR, CBC, ADIFF, BMP, GFR, AMM #### [address] [address] Monocyte, Absolute 0.8 10 3/mcL Normal 0.1-1.4 [facility] ([place]) Comment on above: Performed By: #### A UNRULY, VALPR, CBC, ADIFF, BMP, GFR, AMM #### [address] [address] Monocytes/100 WBC (Bld) 11.1 % Normal 2.0-13.0 A [facility] ([place]) Comment on above: Performed By: #### A UNRULY, VALPR, CBC, ADIFF, BMP, GFR, AMM #### [address] [address] Neutrophils/100 WBC (Bld) 60.6 % Normal 50.0-75.0 [facility] ([place]) Comment on above: Performed By: #### A UNRULY, VALPR, CBC, ADIFF, BMP, GFR, AMM #### [address] [address] .GFRon 08-09-2023 GFR Non- >60 Normal [facility] ([place]) Comment on above: Result Comment: GFR Population [...] VALPR, CBC, ADIFF, BMP, GFR, AMM #### [address] [address] GFR >60 Normal [facility] ([place]) Comment on above: Result Comment: GFR Population [...] VALPR, CBC, ADIFF, BMP, GFR, AMM #### [address] [address] .NEUABSon 08-09-2023 Neutrophil, Absolute 4.5 10 3/mcL Normal 2.3-8.1 [facility] ([place]) Comment on above: Performed By: #### A UNRULY, VALPR, CBC, ADIFF, BMP, GFR, AMM #### [address] [address] Gael 08-09-2023 Ammonia 19 mcmol/l Normal 11-32 [facility] ([place]) Comment on above: Performed By: #### A UNRULY, VALPR, CBC, ADIFF, BMP, GFR, AMM #### [place] [address] BMPon 08-09-2023 BUN/Creatinine Ratio 30.9 ratio High 10.0-22.0 [facility] ([place]) Comment on above: Performed By: #### A UNRULY, VALPR, CBC, ADIFF, BMP, GFR, AMM #### [address] [address] Calcium [Mass/Vol] 8.8 mg/dL Normal 8.7-10.4 [facility] ([place]) Comment on above: Performed By: #### A UNRULY, VALPR, CBC, ADIFF, BMP, GFR, AMM #### [address] [address] Chloride [Moles/Vol] 109 mmol/L Normal 98-110 [facility] ([place]) Comment on above: Performed By: #### A UNRULY, VALPR, CBC, ADIFF, BMP, GFR, AMM #### [address] [address] CO2 [Moles/Vol] 25 mmol/L Normal 22-32 [facility] ([place]) Comment on above: Performed By: #### A UNRULY, VALPR, CBC, ADIFF, BMP, GFR, AMM #### [place] [id number] Creatinine [Mass/Vol] 0.81 mg/dL Normal 0.50-1.20 [facility] ([place]) Comment on above: Performed By: #### A UNRULY, VALPR, CBC, ADIFF, BMP, GFR, AMM #### [address] [address] Electrolyte Balance 7.0 mEq/L Normal 4.0-15.0 [facility] ([place]) Comment on above: Performed By: #### A UNRULY, VALPR, CBC, ADIFF, BMP, GFR, AMM #### [place] [id number] Glucose [Mass/Vol] 81 mg/dL Low 82-115 [facility] ([place]) Comment on above: Performed By: #### A UNRULY, VALPR, CBC, ADIFF, BMP, GFR, AMM #### [address] [address] Potassium [Moles/Vol] 4.2 mmol/L Normal 3.5-5.0 [facility] ([place]) Comment on above: Performed By: #### A UNRULY, VALPR, CBC, ADIFF, BMP, GFR, AMM #### [place] [id number] Sodium [Moles/Vol] 141 mmol/L Normal 136-145 [facility] ([place]) Comment on above: Performed By: #### A UNRULY, VALPR, CBC, ADIFF, BMP, GFR, AMM #### [place] [id number] Urea nitrogen [Mass/Vol] 25.0 mg/dL High 8.0-22.0 [facility] ([place]) Comment on above: Performed By: #### A UNRULY, VALPR, CBC, ADIFF, BMP, GFR, AMM #### [address] [address] CBCon 08-09-2023 Erythrocyte distribution width (RBC) [Ratio] 15.2 % Normal 11.5-15.5 [facility] ([place]) Comment on above: Performed By: #### A UNRULY, VALPR, CBC, ADIFF, BMP, GFR, AMM #### [place] [address] Hematocrit (Bld) [Volume fraction] 34.1 % Normal 34.0-46.0 [facility] ([place]) Comment on above: Performed By: #### A UNRULY, VALPR, CBC, ADIFF, BMP, GFR, AMM #### [place] [id number] Hgb 11.6 G/dL Low 12.0-16.0 [facility] ([place]) Comment on above: Performed By: #### A UNRULY, VALPR, CBC, ADIFF, BMP, GFR, AMM #### [place] [id number] MCH (RBC) [Entitic mass] 28.3 pg Normal 27.0-33.0 [facility] ([place]) Comment on above: Performed By: #### A UNRULY, VALPR, CBC, ADIFF, BMP, GFR, AMM #### [place] [id number] MCHC 33.9 G/dL Normal 32.0-36.0 [facility] ([place]) Comment on above: Performed By: #### A UNRULY, VALPR, CBC, ADIFF, BMP, GFR, AMM #### [place] [address] MCV (RBC) [Entitic vol] 83.6 fL Normal 80.0-99.0 A [facility] ([place]) Comment on above: Performed By: #### A UNRULY, VALPR, CBC, ADIFF, BMP, GFR, AMM #### [place] [address] Platelet 299 10 3/mcL Normal 150-450 [facility] ([place]) Comment on above: Performed By: #### A UNRULY, VALPR, CBC, ADIFF, BMP, GFR, AMM #### [place] [address] Platelet mean volume (Bld) [Entitic vol] 7.2 fL Normal 6.6-10.5 [facility] ([place]) Comment on above: Performed By: #### A UNRULY, VALPR, CBC, ADIFF, BMP, GFR, AMM #### [address] [address] RBC 4.08 10 6/mcL Low 4.10-5.30 [facility] ([place]) Comment on above: Performed By: #### A UNRULY, VALPR, CBC, ADIFF, BMP, GFR, AMM #### [address] [address] WBC 7.4 10 3/mcL Normal 4.5-10.8 [facility] ([place]) Comment on above: Performed By: #### A NURULY, VALPR, CBC, ADIFF, BMP, GFR, AMM #### [address] [address] LABORATORYOrdered By: SYSTEM SYSTEM on 08-09-2023 Ammonia [...] 2.2 % Normal 0.0 - 6.0 % AH Workflow SS Erythrocyte distribution width (RBC) [Ratio] 15.2 % Normal 11.5 - 15.5 % AH Workflow SS GFR/1.73 sq M.predicted among blacks MDRD (S/P/Bld) [Vol rate/Area] ml/min/1.73sqm Invalid Interpretation Code [facility] [facility] Comment on above: Interpretive Data: [...] (S/P/Bld) [Vol rate/Area] ml/min/1.73sqm Invalid Interpretation Code [facility] [facility] Comment on above: Interpretive Data: [...] 1.9 103/mcL Normal 0.9 - 4.3 10^3/mcL AH Workflow SS Lymphocytes/100 WBC (Bld) 25.8 % [...] 141 mmol/L Normal 136 - 145 mEq/L ADM SS Urea nitrogen [Mass/Vol] 25.0 mg/dL High 8.0 - 22.0 mg/dL AH ADM SS Urea nitrogen/Creatinine [Mass ratio] 30.9 ratio High 10.0 - 22.0 ratio ADM SS Valproate [Mass/Vol] 110.8 ug/mL Normal 50.0 - 130.0 mcg/mL ADM SS WBC (Bld) [#/Vol] 7.4 103/mcL Normal 4.5 - 10.8 10^3/mcL AH Workflow SS LABORATORYOrdered By: Nelda Carl on [...] Date: 08/09/2023 11:01:30 AM Ordering Provider: BRITT LOPEZ [facility]) VALPRon 08-09-2023 LDose Valproic Acid: See eMAR [facility] [place]) Comment on above: Performed By: #### A UNRULY, VALPR, CBC, ADIFF, BMP, GFR, AMM #### [place] [address] Valproic Acid Lvl 110.8 mcg/mL Normal 50.0-130.0 [facility] ([place]) Comment on above: Performed By: #### A UNRULY, VALPR, CBC, ADIFF, BMP, GFR, AMM #### [place] [address] .Auto Diffon 08-08-2023 Basophil, Absolute 0.0 10 3/mcL Normal 0.0-0.3 [facility]) Comment on above: Performed By: #### A UNRULY, VALPR, CBC, ADIFF, BMP, GFR, AMM #### [place] [address] Basophils/100 WBC (Bld) 0.4 % Normal 0.0-2.5 A [facility] ([place]) Comment on above: Performed By: #### A UNRULY, VALPR, CBC, ADIFF, BMP, GFR, AMM #### [facility] [address] [place], [place] [address] Eosinophil, Absolute 0.3 10 3/mcL Normal 0.0-0.7 [facility] ([place]) Comment on above: Performed By: #### A UNRULY, VALPR, CBC, ADIFF, BMP, GFR, AMM #### [address] [address] Eosinophils/100 WBC (Bld) 3.2 % Normal 0.0-6.0 [facility] ([place]) Comment on above: Performed By: #### A UNRULY, VALPR, CBC, ADIFF, BMP, GFR, AMM #### [address] [address] Lymphocyte, Absolute 3.1 10 3/mcL Normal 0.9-4.3 [facility] ([place]) Comment on above: Performed By: #### A UNRULY, VALPR, CBC, ADIFF, BMP, GFR, AMM #### [address] [address] Lymphocytes/100 WBC (Bld) 31.0 % Normal 20.0-40.0 [facility] ([place]) Comment on above: Performed By: #### A UNRULY, VALPR, CBC, ADIFF, BMP, GFR, AMM #### [address] [address] Monocyte, Absolute 1.1 10 3/mcL Normal 0.1-1.4 [facility] ([place]) Comment on above: Performed By: #### A UNRULY, VALPR, CBC, ADIFF, BMP, GFR, AMM #### [address] [address] Monocytes/100 WBC (Bld) 11.5 % Normal 2.0-13.0 [facility] ([place]) Comment on above: Performed By: #### A UNRULY, VALPR, CBC, ADIFF, BMP, GFR, AMM #### [address] [address] Neutrophils/100 WBC (Bld) 53.9 % Normal 50.0-75.0 [facility] ([place]) Comment on above: Performed By: #### A UNRULY, VALPR, CBC, ADIFF, BMP, GFR, AMM #### [address] [address] .GFRon 08-08-2023 GFR >60 Normal [facility] ([place]) Comment on above: Result Comment: GFR Population [...] VALPR, CBC, ADIFF, BMP, GFR, AMM #### [address] [address] GFR Non- >60 Normal [facility] ([place]) Comment on above: Result Comment: GFR Population [...] VALPR, CBC, ADIFF, BMP, GFR, AMM #### [address] [address] .NEUABSon 08-08-2023 Neutrophil, Absolute 5.4 10 3/mcL Normal 2.3-8.1 [facility] ([place]) Comment on above: Performed By: #### A UNRULY, VALPR, CBC, ADIFF, BMP, GFR, AMM #### [address] [address] Gael 08-08-2023 Ammonia 30 mcmol/l Normal 11-32 [facility] ([place]) Comment on above: Performed By: #### A UNRULY, VALPR, CBC, ADIFF, BMP, GFR, AMM #### [place] [id number] CBCon 08-08-2023 Erythrocyte distribution width (RBC) [Ratio] 15.5 % Normal 11.5-15.5 [facility] ([place]) Comment on above: Performed By: #### A UNRULY, VALPR, CBC, ADIFF, BMP, GFR, AMM #### [place] [address] Hematocrit (Bld) [Volume fraction] 32.9 % Low 34.0-46.0 [facility] ([place]) Comment on above: Performed By: #### A UNRULY, VALPR, CBC, ADIFF, BMP, GFR, AMM #### [place] [address] Hgb 11.2 G/dL Low 12.0-16.0 [facility] ([place]) Comment on above: Performed By: #### A UNRULY, VALPR, CBC, ADIFF, BMP, GFR, AMM #### [place] [address] MCH (RBC) [Entitic mass] 28.6 pg Normal 27.0-33.0 [facility] ([place]) Comment on above: Performed By: #### A UNRULY, VALPR, CBC, ADIFF, BMP, GFR, AMM #### [place] [address] MCHC 33.9 G/dL Normal 32.0-36.0 [facility] ([place]) Comment on above: Performed By: #### A UNRULY, VALPR, CBC, ADIFF, BMP, GFR, AMM #### [place] [address] MCV (RBC) [Entitic vol] 84.2 fL Normal 80.0-99.0 A [facility] ([place]) Comment on above: Performed By: #### A UNRULY, VALPR, CBC, ADIFF, BMP, GFR, AMM #### [place] [address] Platelet 279 10 3/mcL Normal 150-450 [facility] ([place]) Comment on above: Performed By: #### A UNRULY, VALPR, CBC, ADIFF, BMP, GFR, AMM #### [place] [address] Platelet mean volume (Bld) [Entitic vol] 7.7 fL Normal 6.6-10.5 [facility] ([place]) Comment on above: Performed By: #### A UNRULY, VALPR, CBC, ADIFF, BMP, GFR, AMM #### [address] [address] RBC 3.90 10 6/mcL Low 4.10-5.30 [facility] ([place]) Comment on above: Performed By: #### A UNRULY, VALPR, CBC, ADIFF, BMP, GFR, AMM #### [place] [id number] WBC 9.9 10 3/mcL Normal 4.5-10.8 [facility] ([place]) Comment on above: Performed By: #### A UNRULY, VALPR, CBC, ADIFF, BMP, GFR, AMM #### [place] [id number] CMPon 08-08-2023 Albumin Level 2.7 G/dL Low 3.2-4.8 [facility] ([place]) Comment on above: Performed By: #### A UNRULY, VALPR, CBC, ADIFF, BMP, GFR, AMM #### [place] [address] Albumin/Globulin [Mass ratio] 0.6 {ratio} Low 0.9-1.6 [facility] ([place]) Comment on above: Performed By: #### A UNRULY, VALPR, CBC, ADIFF, BMP, GFR, AMM #### [address] [address] ALP [Catalytic activity/Vol] 52 U/L Normal 38-126 [facility] ([place]) Comment on above: Performed By: #### A UNRULY, VALPR, CBC, ADIFF, BMP, GFR, AMM #### [address] [address] ALT [Catalytic activity/Vol] 30 U/L Normal 10-49 [facility] ([place]) Comment on above: Performed By: #### A UNRULY, VALPR, CBC, ADIFF, BMP, GFR, AMM #### [address] [address] AST [Catalytic activity/Vol] 48 U/L High 8-34 [facility] ([place]) Comment on above: Performed By: #### A UNRULY, VALPR, CBC, ADIFF, BMP, GFR, AMM #### [address] [address] Bili Total 0.30 mg/dL Normal 0.20-1.20 [facility] ([place]) Comment on above: Result Comment: Use of this assay is not recommended for patients undergoing treatment with eltrombopag due to the potential for falsely elevated results. Performed By: #### A UNRULY, VALPR, CBC, ADIFF, BMP, GFR, AMM #### [address] [address] BUN/Creatinine Ratio 28.0 ratio High 10.0-22.0 [facility] ([place]) Comment on above: Performed By: #### A UNRULY, VALPR, CBC, ADIFF, BMP, GFR, AMM #### [address] [address] Calcium [Mass/Vol] 8.5 mg/dL Low 8.7-10.4 [facility] ([place]) Comment on above: Performed By: #### A UNRULY, VALPR, CBC, ADIFF, BMP, GFR, AMM #### [address] [address] Chloride [Moles/Vol] 110 mmol/L Normal 98-110 [facility] ([place]) Comment on above: Performed By: #### A UNRULY, VALPR, CBC, ADIFF, BMP, GFR, AMM #### [address] [address] CO2 [Moles/Vol] 22 mmol/L Normal 22-32 [facility] ([place]) Comment on above: Performed By: #### A UNRULY, VALPR, CBC, ADIFF, BMP, GFR, AMM #### [address] [address] Creatinine [Mass/Vol] 0.75 mg/dL Normal 0.50-1.20 [facility] ([place]) Comment on above: Performed By: #### A UNRULY, VALPR, CBC, ADIFF, BMP, GFR, AMM #### [address] [address] Electrolyte Balance 6.0 mEq/L Normal 4.0-15.0 [facility] ([place]) Comment on above: Performed By: #### A UNRULY, VALPR, CBC, ADIFF, BMP, GFR, AMM #### [address] [address] Globulin 4.3 G/dL High 1.5-3.8 [facility] ([place]) Comment on above: Performed By: #### A UNRULY, VALPR, CBC, ADIFF, BMP, GFR, AMM #### [address] [address] Glucose [Mass/Vol] 77 mg/dL Low 82-115 [facility] ([place]) Comment on above: Performed By: #### A UNRULY, VALPR, CBC, ADIFF, BMP, GFR, AMM #### [address] [address] Potassium [Moles/Vol] 4.0 mmol/L Normal 3.5-5.0 [facility] ([place]) Comment on above: Performed By: #### A UNRULY, VALPR, CBC, ADIFF, BMP, GFR, AMM #### [address] [address] Sodium [Moles/Vol] 138 mmol/L Normal 136-145 [facility] ([place]) Comment on above: Performed By: #### A UNRULY, VALPR, CBC, ADIFF, BMP, GFR, AMM #### [address] [address] Total Protein 7.0 G/dL Normal 5.7-8.2 [facility] ([place]) Comment on above: Result Comment: No te - New Reference Range in effect 19 Performed By: #### A UNRULY, VALPR, CBC, ADIFF, BMP, GFR, AMM #### [address] [address] Urea nitrogen [Mass/Vol] 21.0 mg/dL Normal 8.0-22.0 [facility] ([place]) Comment on above: Performed By: #### A UNRULY, VALPR, CBC, ADIFF, BMP, GFR, AMM #### [address] [address] KEPPRAon 08-08-2023 Levetiracetam Lvl 80.8 UG/ML High 10.0-40.0 [facility] ([place]) Comment on above: Result Comment: Perf ormed At: [facility] [address] [id number] Yan Sanchez MD Ph:[phone] Performed By: #### A UNRULY, VALPR, CBC, ADIFF, BMP, GFR, AMM #### [address] [address] LABORATORYOrdered By: SYSTEM SYSTEM on 08-08-2023 Albumin [...] 08-08-2023 LDose Valproic Acid: See eMAR Normal [facility] ([place]) Comment on above: Performed By: #### A UNRULY, VALPR, CBC, ADIFF, BMP, GFR, AMM #### [address] [address] Valproic Acid Lvl 107.6 mcg/mL Normal 50.0-130.0 [facility] ([place]) Comment on above: Performed By: #### A UNRULY, VALPR, CBC, ADIFF, BMP, GFR, AMM #### [address] [address] .Auto Diffon 08-07-2023 Basophil, Absolute 0.0 10 3/mcL Normal 0.0-0.3 [facility] ([place]) Comment on above: Performed By: #### A UNRULY, ADIFF, GFR, CBC, BMP ####[address] [address] Basophils/100 WBC (Bld) 0.3 % Normal 0.0-2.5 A [facility] ([place]) Comment on above: Performed By: #### A UNRULY, ADIFF, GFR, CBC, BMP ####[address] [address] Eosinophil, Absolute 0.2 10 3/mcL Normal 0.0-0.7 [facility] ([place]) Comment on above: Performed By: #### A UNRULY, ADIFF, GFR, CBC, BMP ####[address] [address] Eosinophils/100 WBC (Bld) 1.7 % Normal 0.0-6.0 [facility] ([place]) Comment on above: Performed By: #### A UNRULY, ADIFF, GFR, CBC, BMP ####[address] [address] Lymphocyte, Absolute 3.3 10 3/mcL Normal 0.9-4.3 [facility] ([place]) Comment on above: Performed By: #### A UNRULY, ADIFF, GFR, CBC, BMP ####[address] [address] Lymphocytes/100 WBC (Bld) 26.3 % Normal 20.0-40.0 [facility] ([place]) Comment on above: Performed By: #### A UNRULY, ADIFF, GFR, CBC, BMP ####[address] [address] Monocyte, Absolute 1.4 10 3/mcL Normal 0.1-1.4 [facility] ([place]) Comment on above: Performed By: #### A UNRULY, ADIFF, GFR, CBC, BMP ####[address] [address] Monocytes/100 WBC (Bld) 11.0 % Normal 2.0-13.0 [facility] ([place]) Comment on above: Performed By: #### A UNRULY, ADIFF, GFR, CBC, BMP ####[address] [address] Neutrophils/100 WBC (Bld) 60.7 % Normal 50.0-75.0 [facility] ([place]) Comment on above: Performed By: #### A UNRULY, ADIFF, GFR, CBC, BMP ####[address] [address] .GFRon 08-07-2023 GFR Non- >60 Normal [facility] ([place]) Comment on above: Result Comment: GFR Population [...] #### A UNRULY, ADIFF, GFR, CBC, BMP ####[address] [address] GFR >60 Normal [facility] ([place]) Comment on above: Result Comment: GFR Population [...] #### A UNRULY, ADIFF, GFR, CBC, BMP ####[address] [address] .NEUABSon 08-07-2023 Neutrophil, Absolute 7.6 10 3/mcL Normal 2.3-8.1 [facility] ([place]) Comment on above: Performed By: #### A UNRULY, ADIFF, GFR, CBC, BMP ####[address] [address] BMPon 08-07-2023 BUN/Creatinine Ratio 25.0 ratio High 10.0-22.0 [facility] ([place]) Comment on above: Performed By: #### A UNRULY, ADIFF, GFR, CBC, BMP ####[place] [address] Calcium [Mass/Vol] 9.0 mg/dL Normal 8.7-10.4 [facility] ([place]) Comment on above: Performed By: #### A UNRULY, ADIFF, GFR, CBC, BMP ####[place] [address] Chloride [Moles/Vol] 107 mmol/L Normal 98-110 [facility] ([place]) Comment on above: Performed By: #### A UNRULY, ADIFF, GFR, CBC, BMP ####[place] [address] CO2 [Moles/Vol] 23 mmol/L Normal 22-32 [facility] ([place]) Comment on above: Performed By: #### A UNRULY, ADIFF, GFR, CBC, BMP ####[place] [address] Creatinine [Mass/Vol] 0.80 mg/dL Normal 0.50-1.20 [facility] ([place]) Comment on above: Performed By: #### A UNRULY, ADIFF, GFR, CBC, BMP ####[place] [address] Electrolyte Balance 7.0 mEq/L Normal 4.0-15.0 [facility] ([place]) Comment on above: Performed By: #### A UNRULY, ADIFF, GFR, CBC, BMP ####[place] [address] Glucose [Mass/Vol] 82 mg/dL Normal 82-115 [facility] ([place]) Comment on above: Performed By: #### A UNRULY, ADIFF, GFR, CBC, BMP ####[place] [address] Potassium [Moles/Vol] 4.1 mmol/L Normal 3.5-5.0 [facility] ([place]) Comment on above: Performed By: #### A UNRULY, ADIFF, GFR, CBC, BMP ####[place] [address] Sodium [Moles/Vol] 137 mmol/L Normal 136-145 [facility] ([place]) Comment on above: Performed By: #### A UNRULY, ADIFF, GFR, CBC, BMP ####[place] [address] Urea nitrogen [Mass/Vol] 20.0 mg/dL Normal 8.0-22.0 [facility] ([place]) Comment on above: Performed By: #### A UNRULY, ADIFF, GFR, CBC, BMP ####[place] [address] CBCon 08-07-2023 Erythrocyte distribution width (RBC) [Ratio] 15.7 % High 11.5-15.5 [facility] ([place]) Comment on above: Performed By: #### A UNRULY, VALPR, CBC, ADIFF, BMP, GFR, AMM #### [place] [address] Hematocrit (Bld) [Volume fraction] 31.6 % Low 34.0-46.0 [facility] ([place]) Comment on above: Performed By: #### A UNRULY, VALPR, CBC, ADIFF, BMP, GFR, AMM #### [place] [address] Hgb 10.8 G/dL Low 12.0-16.0 [facility] ([place]) Comment on above: Performed By: #### A UNRULY, VALPR, CBC, ADIFF, BMP, GFR, AMM #### [place] [id number] MCH (RBC) [Entitic mass] 28.7 pg Normal 27.0-33.0 [facility] ([place]) Comment on above: Performed By: #### A UNRULY, VALPR, CBC, ADIFF, BMP, GFR, AMM #### [place] [address] MCHC 34.3 G/dL Normal 32.0-36.0 [facility] ([place]) Comment on above: Performed By: #### A UNRULY, VALPR, CBC, ADIFF, BMP, GFR, AMM #### [address] [address] MCV (RBC) [Entitic vol] 83.7 fL Normal 80.0-99.0 A [facility] ([place]) Comment on above: Performed By: #### A UNRULY, VALPR, CBC, ADIFF, BMP, GFR, AMM #### [place] [id number] Platelet 267 10 3/mcL Normal 150-450 [facility] ([place]) Comment on above: Performed By: #### A UNRULY, VALPR, CBC, ADIFF, BMP, GFR, AMM #### [address] [address] Platelet mean volume (Bld) [Entitic vol] 7.5 fL Normal 6.6-10.5 [facility] ([place]) Comment on above: Performed By: #### A UNRULY, VALPR, CBC, ADIFF, BMP, GFR, AMM #### [place] [id number] RBC 3.78 10 6/mcL Low 4.10-5.30 [facility] ([place]) Comment on above: Performed By: #### A UNRULY, VALPR, CBC, ADIFF, BMP, GFR, AMM #### [place] [id number] WBC 12.5 10 3/mcL High 4.5-10.8 [facility] ([place]) Comment on above: Performed By: #### A UNRULY, VALPR, CBC, ADIFF, BMP, GFR, AMM #### [address] [address] [place] MAMMOGRAM SCREENING BILAT ERAL W/TOMOon 08-07-2023 [place] MAMMOGRAM SCREENING BILATERAL W/TOMASZ ORIGINAL FROM: [address] [address] PROCEDURE FOR: NAI HERNANDEZ [address] [place] [address] Home: PID#: [id number] Exam#: [id number] : 1955 Age: 67 TO: FISH JORDAN [employer] [address] [address] Fax: NO FAX EXAMINATION: SCREENING DIGITAL BILATERAL [...] with annual mammograms is recommended. Ruth Ann Schulz risk calculations, generated with the history provided, [...] addition to annual mammographic screening per the [employer]. I have personally reviewed the [...] 08/07/2023 6:23:16 PM Ordering Provider: FISH JORDAN Application Analyst: MYRTLE HOUSER RT(R)(M)(CT) letter sent: Normal BI-RADS 1 and 2 Mammogram BI-RADS: 2 Benign Normal [facility] ([place]) .Auto Diffon 04-23-2024 Basophil, Absolute 0.1 10 3/mcL Normal 0.0-0.3 [facility] ([place]) Comment on above: Performed By: #### A UNRULY, VALPR, CBC, ADIFF, BMP, GFR, AMM #### [address] [address] Basophils/100 WBC (Bld) 0.6 % Normal 0.0-2.5 A [facility] ([place]) Comment on above: Performed By: #### A UNRULY, VALPR, CBC, ADIFF, BMP, GFR, AMM #### [address] [address] Eosinophil, Absolute 0.1 10 3/mcL Normal 0.0-0.7 [facility] ([place]) Comment on above: Performed By: #### A UNRULY, VALPR, CBC, ADIFF, BMP, GFR, AMM #### [address] [address] Eosinophils/100 WBC (Bld) 0.7 % Normal 0.0-6.0 [facility] ([place]) Comment on above: Performed By: #### A UNRULY, VALPR, CBC, ADIFF, BMP, GFR, AMM #### [address] [address] Lymphocyte, Absolute 3.0 10 3/mcL Normal 0.9-4.3 [facility] ([place]) Comment on above: Performed By: #### A UNRULY, VALPR, CBC, ADIFF, BMP, GFR, AMM #### [address] [address] Lymphocytes/100 WBC (Bld) 24.9 % Normal 20.0-40.0 [facility] ([place]) Comment on above: Performed By: #### A UNRULY, VALPR, CBC, ADIFF, BMP, GFR, AMM #### [address] [address] Monocyte, Absolute 1.8 10 3/mcL High 0.1-1.4 [facility] ([place]) Comment on above: Performed By: #### A UNRULY, VALPR, CBC, ADIFF, BMP, GFR, AMM #### [address] [address] Monocytes/100 WBC (Bld) 14.5 % High 2.0-13.0 A [facility] ([place]) Comment on above: Performed By: #### A UNRULY, VALPR, CBC, ADIFF, BMP, GFR, AMM #### [address] [address] Neutrophils/100 WBC (Bld) 59.3 % Normal 50.0-75.0 [facility] ([place]) Comment on above: Performed By: #### A UNRULY, VALPR, CBC, ADIFF, BMP, GFR, AMM #### [address] [address] .GFRon 08-06-2023 GFR Non- >60 Normal [facility] ([place]) Comment on above: Result Comment: GFR Population [...] VALPR, CBC, ADIFF, BMP, GFR, AMM #### [address] [address] GFR >60 Normal [facility] ([place]) Comment on above: Result Comment: GFR Population [...] VALPR, CBC, ADIFF, BMP, GFR, AMM #### [address] [address] .NEUABSon 08-06-2023 Neutrophil, Absolute 7.1 10 3/mcL Normal 2.3-8.1 [facility] ([place]) Comment on above: Performed By: #### A UNRULY, VALPR, CBC, ADIFF, BMP, GFR, AMM #### [address] [address] BMPon 08-06-2023 BUN/Creatinine Ratio 17.7 ratio Normal 10.0-22.0 [facility] ([place]) Comment on above: Performed By: #### A UNRULY, VALPR, CBC, ADIFF, BMP, GFR, AMM #### [place] [id number] Calcium [Mass/Vol] 9.4 mg/dL Normal 8.7-10.4 [facility] ([place]) Comment on above: Performed By: #### A UNRULY, VALPR, CBC, ADIFF, BMP, GFR, AMM #### [address] [address] Chloride [Moles/Vol] 102 mmol/L Normal 98-110 [facility] ([place]) Comment on above: Performed By: #### A UNRULY, VALPR, CBC, ADIFF, BMP, GFR, AMM #### [address] [address] CO2 [Moles/Vol] 24 mmol/L Normal 22-32 [facility] ([place]) Comment on above: Performed By: #### A UNRULY, VALPR, CBC, ADIFF, BMP, GFR, AMM #### [address] [address] Creatinine [Mass/Vol] 0.79 mg/dL Normal 0.50-1.20 [facility] ([place]) Comment on above: Performed By: #### A UNRULY, VALPR, CBC, ADIFF, BMP, GFR, AMM #### [place] [id number] Electrolyte Balance 8.0 mEq/L Normal 4.0-15.0 [facility] ([place]) Comment on above: Performed By: #### A UNRULY, VALPR, CBC, ADIFF, BMP, GFR, AMM #### [place] [id number] Glucose [Mass/Vol] 96 mg/dL Normal 82-115 [facility] ([place]) Comment on above: Performed By: #### A UNRULY, VALPR, CBC, ADIFF, BMP, GFR, AMM #### [place] [address] Potassium [Moles/Vol] 4.1 mmol/L Normal 3.5-5.0 [facility] ([place]) Comment on above: Performed By: #### A UNRULY, VALPR, CBC, ADIFF, BMP, GFR, AMM #### [place] [id number] Sodium [Moles/Vol] 134 mmol/L Low 136-145 [facility] ([place]) Comment on above: Performed By: #### A UNRULY, VALPR, CBC, ADIFF, BMP, GFR, AMM #### [place] [id number] Urea nitrogen [Mass/Vol] 14.0 mg/dL Normal 8.0-22.0 [facility] ([place]) Comment on above: Performed By: #### A UNRULY, VALPR, CBC, ADIFF, BMP, GFR, AMM #### [address] [address] CBCon 08-06-2023 Erythrocyte distribution width (RBC) [Ratio] 15.2 % Normal 11.5-15.5 [facility] ([place]) Comment on above: Performed By: #### A UNRULY, VALPR, CBC, ADIFF, BMP, GFR, AMM #### [place] [id number] Hematocrit (Bld) [Volume fraction] 32.3 % Low 34.0-46.0 [facility] ([place]) Comment on above: Performed By: #### A UNRULY, VALPR, CBC, ADIFF, BMP, GFR, AMM #### [place] [address] Hgb 11.1 G/dL Low 12.0-16.0 [facility] ([place]) Comment on above: Performed By: #### A UNRULY, VALPR, CBC, ADIFF, BMP, GFR, AMM #### [place] [address] MCH (RBC) [Entitic mass] 28.7 pg Normal 27.0-33.0 [facility] ([place]) Comment on above: Performed By: #### A UNRULY, VALPR, CBC, ADIFF, BMP, GFR, AMM #### [place] [address] MCHC 34.5 G/dL Normal 32.0-36.0 [facility] ([place]) Comment on above: Performed By: #### A UNRULY, VALPR, CBC, ADIFF, BMP, GFR, AMM #### [place] [address] MCV (RBC) [Entitic vol] 83.2 fL Normal 80.0-99.0 A [facility] ([place]) Comment on above: Performed By: #### A UNRULY, VALPR, CBC, ADIFF, BMP, GFR, AMM #### [place] [address] Platelet 230 10 3/mcL Normal 150-450 [facility] ([place]) Comment on above: Performed By: #### A UNRULY, VALPR, CBC, ADIFF, BMP, GFR, AMM #### [place] [address] Platelet mean volume (Bld) [Entitic vol] 8.4 fL Normal 6.6-10.5 [facility] ([place]) Comment on above: Performed By: #### A UNRULY, VALPR, CBC, ADIFF, BMP, GFR, AMM #### [facility] [address] [place] [address] RBC 3.88 10 6/mcL Low 4.10-5.30 [facility] ([place]) Comment on above: Performed By: #### A UNRULY, VALPR, CBC, ADIFF, BMP, GFR, AMM #### [facility] [address] [place] [address] WBC 12.1 10 3/mcL High 4.5-10.8 [facility] ([place]) Comment on above: Performed By: #### A UNRULY, VALPR, CBC, ADIFF, BMP, GFR, AMM #### [facility] [address] [place] [address] LABORATORYOrdered By: Keshia Vasquez on 08-06-2023 Osmolality [...] Test strip (U) [Mass/Vol] Negative Normal Negative Auto Urine SS Hemoglobin Auto test strip (U) [Mass/Vol] Negative (08/06/23 3:38 PM) Normal Neg-Trace Auto Urine SS Ketones Ql (U) Trace mg/dL Normal Neg-Trace AH Auto U rine SS UA Leuk Est Small *ABN* (08/06/23 3:38 PM) Invalid Interpretation Code Negative Auto Urine SS UA Nitrite Negative (08/06/23 3:38 PM) Normal Negative Auto Urine SS UA pH 6.5 (08/06/23 3:38 PM) Normal 5.0 - 8.0 Auto Urine SS UA Protein Negative Normal Negative Auto Urine SS UA RBC Rare /HPF Normal 0-2 AH Auto Urine SS UA Spec Grav 1.020 (08/06/23 3:38 PM) Normal 1.006-1.029 AH Auto Urine SS UA Specimen Type Clean [...] NAURon 08-06-2023 Sodium [Moles/Vol] 64 mmol/L Normal [facility] ([place]) Comment on above: Performed By: #### A UNRULY, VALPR, CBC, ADIFF, BMP, GFR, AMM #### [address] [address] No Panel Informationon 08-05 Microscopic examination of blood, culture Blood Culture: No Growth at 5 days. [facility] OSMOUon 08-06-2023 U Osmolality 568 mOsm/kg Normal 390-1090 [facility] ([place]) Comment on above: Performed By: #### A UNRULY, VALPR, CBC, ADIFF, BMP, GFR, AMM #### [address] [address] SPEon 08-06-2023 SPE Interpretation There is polyclonal hypergammaglobulinem ia. This may be seen in chronic inflammatory or infectious diseases, or in patients receiving intravenous immunoglobulin therapy. Normal [facility]) Comment on above: Result Comment: Elec tronically Signed by: SELINA CEDILLO 08/06/2023 15:08 EDT Performed By: #### A UNRULY, VALPR, CBC, ADIFF, BMP, GFR, AMM #### [address] [address] Albumin 3.4 G/dL Normal 3.3-5.0 [facility] ([place]) Comment on above: Performed By: #### A UNRULY, VALPR, CBC, ADIFF, BMP, GFR, AMM #### [address] [address] Alpha 1 0.2 G/dL Normal 0.1-0.4 [facility] ([place]) Comment on above: Performed By: #### A UNRULY, VALPR, CBC, ADIFF, BMP, GFR, AMM #### [address] [address] Alpha 2 1.1 G/dL Normal 0.6-1.2 [facility] ([place]) Comment on above: Performed By: #### A UNRULY, VALPR, CBC, ADIFF, BMP, GFR, AMM #### [place] [address] Beta 1.3 G/dL Normal 0.6-1.3 [facility] ([place]) Comment on above: Performed By: #### A UNRULY, VALPR, CBC, ADIFF, BMP, GFR, AMM #### [place] [address] Gamma 2.3 G/dL High 0.7-1.6 [facility] ([place]) Comment on above: Performed By: #### A UNRULY, VALPR, CBC, ADIFF, BMP, GFR, AMM #### [place] [address] UAon 08-06-2023 Color (U) Yellow Normal [facility] ([place]) Comment on above: Performed By: #### A UNRULY, VALPR, CBC, ADIFF, BMP, GFR, AMM #### [address] [address] Glucose (U) [Mass/Vol] Negative Normal Negative [facility] ([place]) Comment on above: Performed By: #### A UNRULY, VALPR, CBC, ADIFF, BMP, GFR, AMM #### [address] [address] Ketones Ql (U) Trace Normal Neg-Trace [facility] ([place]) Comment on above: Performed By: #### A UNRULY, VALPR, CBC, ADIFF, BMP, GFR, AMM #### [place] [address] UA Appear Clear Normal Clear [facility] ([place]) Comment on above: Performed By: #### A UNRULY, VALPR, CBC, ADIFF, BMP, GFR, AMM #### [address] [address] UA Blood Negative Normal Neg-Trace [facility] ([place]) Comment on above: Performed By: #### A UNRULY, VALPR, CBC, ADIFF, BMP, GFR, AMM #### [address] [address] UA Leuk Est Small Abnormal Negative [facility] ([place]) Comment on above: Performed By: #### A UNRULY, VALPR, CBC, ADIFF, BMP, GFR, AMM #### [address] [address] UA Nitrite Negative Normal Negative [facility] ([place]) Comment on above: Performed By: #### A UNRULY, VALPR, CBC, ADIFF, BMP, GFR, AMM #### [address] [address] UA pH 6.5 Normal 5.0 - 8.0 [facility] ([place]) Comment on above: Performed By: #### A UNRULY, VALPR, CBC, ADIFF, BMP, GFR, AMM #### [address] [address] UA Protein Negative Normal Negative [facility] ([place]) Comment on above: Performed By: #### A UNRULY, VALPR, CBC, ADIFF, BMP, GFR, AMM #### [address] [address] UA Spec Grav 1.020 Normal 1.006-1.029 [facility] ([place]) Comment on above: Performed By: #### A UNRULY, VALPR, CBC, ADIFF, BMP, GFR, AMM #### [address] [address] UA Specimen Type Clean Catch Normal [facility] ([place]) Comment on above: Performed By: #### A UNRULY, VALPR, CBC, ADIFF, BMP, GFR, AMM #### [address] [address] UA Urobilinogen 1.0 E.U./dL Normal 0.2-1.0 [facility] ([place]) Comment on above: Performed By: #### A UNRULY, VALPR, CBC, ADIFF, BMP, GFR, AMM #### [address] [address] Urobilinogen (U) [Mass/Vol] Negative Normal Neg-Trace [facility] ([place]) Comment on above: Performed By: #### A UNRULY, VALPR, CBC, ADIFF, BMP, GFR, AMM #### [address] [address] UAMICon 08-06-2023 UA RBC Rare Normal 0-2 [facility] ([place]) Comment on above: Performed By: #### A UNRULY, VALPR, CBC, ADIFF, BMP, GFR, AMM #### [address] [address] UA Squam Epithelial 0-2 Normal 0-20 [facility] ([place]) Comment on above: Performed By: #### A UNRULY, VALPR, CBC, ADIFF, BMP, GFR, AMM #### [address] [address] UA Transitional Epithelial 3-5 Normal [facility] ([place]) Comment on above: Performed By: #### A UNRULY, VALPR, CBC, ADIFF, BMP, GFR, AMM #### [address] [address] UA WBC 3-5 Normal 0-5 [facility] ([place]) Comment on above: Performed By: #### A UNRULY, VALPR, CBC, ADIFF, BMP, GFR, AMM #### [address] [address] XR CHEST 1 VIEWon 08-06-2023 XR CHEST [...] 08/06/2023 10:43:49 AM Ordering Provider: BRITT Castro [facility] ([place]) .Auto Diffon 08-05-2023 Basophil, Absolute 0.1 10 3/mcL Normal 0.0-0.3 [facility] ([place]) Comment on above: Performed By: #### A DIFF, GFR, OSMOS, CBC, BMP, ANEU ####[address] [address] Basophils/100 WBC (Bld) 0.3 % Normal 0.0-2.5 A [facility] ([place]) Comment on above: Performed By: #### A DIFF, GFR, OSMOS, CBC, BMP, ANEU ####[address] [address] Eosinophil, Absolute 0.0 10 3/mcL Normal 0.0-0.7 [facility] ([place]) Comment on above: Performed By: #### A DIFF, GFR, OSMOS, CBC, BMP, ANEU ####[address] [address] Eosinophils/100 WBC (Bld) 0.1 % Normal 0.0-6.0 [facility] ([place]) Comment on above: Performed By: #### A DIFF, GFR, OSMOS, CBC, BMP, ANEU ####[address] [address] Lymphocyte, Absolute 3.3 10 3/mcL Normal 0.9-4.3 [facility] ([place]) Comment on above: Performed By: #### A DIFF, GFR, OSMOS, CBC, BMP, ANEU ####[address] [address] Lymphocytes/100 WBC (Bld) 20.1 % Normal 20.0-40.0 [facility] ([place]) Comment on above: Performed By: #### A DIFF, GFR, OSMOS, CBC, BMP, ANEU ####[address] [address] Monocyte, Absolute 2.2 10 3/mcL High 0.1-1.4 [facility] ([place]) Comment on above: Performed By: #### A DIFF, GFR, OSMOS, CBC, BMP, ANEU ####[address] [address] Monocytes/100 WBC (Bld) 13.4 % High 2.0-13.0 A [facility] ([place]) Comment on above: Performed By: #### A DIFF, GFR, OSMOS, CBC, BMP, ANEU ####[address] [address] Neutrophils/100 WBC (Bld) 66.1 % Normal 50.0-75.0 [facility] ([place]) Comment on above: Performed By: #### A DIFF, GFR, OSMOS, CBC, BMP, ANEU ####[address] [address] .GFRon 08-05-2023 GFR >60 Normal [facility] ([place]) Comment on above: Result Comment: GFR Population [...] A DIFF, GFR, OSMOS, CBC, BMP, ANEU ####[address] [address] GFR Non- >60 Normal [facility] ([place]) Comment on above: Result Comment: GFR Population [...] A DIFF, GFR, OSMOS, CBC, BMP, ANEU ####[address] [address] .NEUABSon 08-05-2023 Neutrophil, Absolute 11.0 10 3/mcL High 2.3-8.1 A [facility] ([place]) Comment on above: Performed By: #### A DIFF, GFR, OSMOS, CBC, BMP, ANEU ####[address] [address] Gael 08-05-2023 Ammonia 21 mcmol/l Normal 11-32 [facility] ([place]) Comment on above: Performed By: #### A UNRULY, VALPR, CBC, ADIFF, BMP, GFR, AMM #### [address] [address] BMPon 08-05-2023 BUN/Creatinine Ratio 16.9 ratio Normal 10.0-22.0 [facility] ([place]) Comment on above: Performed By: #### A DIFF, GFR, OSMOS, CBC, BMP, ANEU ####[address] [address] Calcium [Mass/Vol] 9.6 mg/dL Normal 8.7-10.4 [facility] ([place]) Comment on above: Performed By: #### A DIFF, GFR, OSMOS, CBC, BMP, ANEU ####[place] [address] Chloride [Moles/Vol] 99 mmol/L Normal 98-110 [facility] ([place]) Comment on above: Performed By: #### A DIFF, GFR, OSMOS, CBC, BMP, ANEU ####[place] [id number] CO2 [Moles/Vol] 24 mmol/L Normal 22-32 [facility] ([place]) Comment on above: Performed By: #### A DIFF, GFR, OSMOS, CBC, BMP, ANEU ####[place] [address] Creatinine [Mass/Vol] 0.89 mg/dL Normal 0.50-1.20 [facility] ([place]) Comment on above: Performed By: #### A DIFF, GFR, OSMOS, CBC, BMP, ANEU ####[place] [address] Electrolyte Balance 8.0 mEq/L Normal 4.0-15.0 [facility] ([place]) Comment on above: Performed By: #### A DIFF, GFR, OSMOS, CBC, BMP, ANEU ####[place] [address] Glucose [Mass/Vol] 96 mg/dL Normal 82-115 [facility] ([place]) Comment on above: Performed By: #### A DIFF, GFR, OSMOS, CBC, BMP, ANEU ####[place] [address] Potassium [Moles/Vol] 4.1 mmol/L Normal 3.5-5.0 [facility] ([place]) Comment on above: Performed By: #### A DIFF, GFR, OSMOS, CBC, BMP, ANEU ####[place] [address] Sodium [Moles/Vol] 131 mmol/L Low 136-145 [facility] ([place]) Comment on above: Performed By: #### A DIFF, GFR, OSMOS, CBC, BMP, ANEU ####[place] [address] Urea nitrogen [Mass/Vol] 15.0 mg/dL Normal 8.0-22.0 [facility] ([place]) Comment on above: Performed By: #### A DIFF, GFR, OSMOS, CBC, BMP, ANEU ####[place] [address] CBCon 08-05-2023 Erythrocyte distribution width (RBC) [Ratio] 15.1 % Normal 11.5-15.5 [facility] ([place]) Comment on above: Performed By: #### A DIFF, GFR, OSMOS, CBC, BMP, ANEU ####[place] [address] Hematocrit (Bld) [Volume fraction] 31.6 % Low 34.0-46.0 [facility] ([place]) Comment on above: Performed By: #### A DIFF, GFR, OSMOS, CBC, BMP, ANEU ####[place] [address] Hgb 10.7 G/dL Low 12.0-16.0 [facility] ([place]) Comment on above: Performed By: #### A DIFF, GFR, OSMOS, CBC, BMP, ANEU ####[place] [address] MCH (RBC) [Entitic mass] 28.3 pg Normal 27.0-33.0 [facility] ([place]) Comment on above: Performed By: #### A DIFF, GFR, OSMOS, CBC, BMP, ANEU ####[place] [address] MCHC 34.0 G/dL Normal 32.0-36.0 [facility] ([place]) Comment on above: Performed By: #### A DIFF, GFR, OSMOS, CBC, BMP, ANEU ####[place] [address] MCV (RBC) [Entitic vol] 83.2 fL Normal 80.0-99.0 A [facility] ([place]) Comment on above: Performed By: #### A DIFF, GFR, OSMOS, CBC, BMP, ANEU ####[place] [address] Platelet 252 10 3/mcL Normal 150-450 [facility] ([place]) Comment on above: Performed By: #### A DIFF, GFR, OSMOS, CBC, BMP, ANEU ####[place] [address] Platelet mean volume (Bld) [Entitic vol] 8.4 fL Normal 6.6-10.5 [facility] ([place]) Comment on above: Performed By: #### A DIFF, GFR, OSMOS, CBC, BMP, ANEU ####[place] [address] RBC 3.80 10 6/mcL Low 4.10-5.30 [facility] ([place]) Comment on above: Performed By: #### A DIFF, GFR, OSMOS, CBC, BMP, ANEU ####[place] [address] WBC 16.6 10 3/mcL High 4.5-10.8 [facility] ([place]) Comment on above: Performed By: #### A DIFF, GFR, OSMOS, CBC, BMP, ANEU ####[place] [address] LABORATORYOrdered By: SYSTEM SYSTEM on 08-05-2023 Ammonia (P) [Moles/Vol] 21 umol/L Normal 11 - 32 mcmol/L AH ADM SS LABORATORYOrdered By: Cheryl Almanzar on 08-05-2023 Osmolality [Osmolality] 275 mosm/kg Normal 275 - 300 mOsm/kg Manual Chem SS OSMOSon 08-05-2023 Osmolality [Osmolality] 275 mosm/kg Normal 275-300 [facility] ([place]) Comment on above: Performed By: #### A DIFF, GFR, OSMOS, CBC, BMP, ANEU ####[place] [address] .Auto Diffon 08-04-2023 Basophil, Absolute 0.1 10 3/mcL Normal 0.0-0.2 [facility] ([place]) Comment on above: Performed By: #### A UNRULY, VALPR, CBC, ADIFF, BMP, GFR, AMM #### [address] [address] Basophils/100 WBC (Bld) 0.4 % Normal 0.0-2.5 A [facility] ([place]) Comment on above: Performed By: #### A UNRULY, VALPR, CBC, ADIFF, BMP, GFR, AMM #### [address] [address] Eosinophil, Absolute 0.0 10 3/mcL Normal 0.0-0.4 [facility] ([place]) Comment on above: Performed By: #### A UNRULY, VALPR, CBC, ADIFF, BMP, GFR, AMM #### [address] [address] Eosinophils/100 WBC (Bld) 0.0 % Normal 0.0-7.0 [facility] ([place]) Comment on above: Performed By: #### A UNRULY, VALPR, CBC, ADIFF, BMP, GFR, AMM #### [address] [address] Lymphocyte, Absolute 1.9 10 3/mcL Normal 0.8-3.9 [facility] ([place]) Comment on above: Performed By: #### A UNRULY, VALPR, CBC, ADIFF, BMP, GFR, AMM #### [address] [address] Lymphocytes/100 WBC (Bld) 12.1 % Normal 10.0-50.0 [facility] ([place]) Comment on above: Performed By: #### A UNRULY, VALPR, CBC, ADIFF, BMP, GFR, AMM #### [address] [address] Monocyte, Absolute 0.9 10 3/mcL Normal 0.2-1.0 [facility] ([place]) Comment on above: Performed By: #### A UNRULY, VALPR, CBC, ADIFF, BMP, GFR, AMM #### [address] [address] Monocytes/100 WBC (Bld) 5.6 % Normal 1.7-13.0 A [facility] ([place]) Comment on above: Performed By: #### A UNRULY, VALPR, CBC, ADIFF, BMP, GFR, AMM #### [address] [address] Neutrophils/100 WBC (Bld) 81.9 % High 37.0-80.0 [facility] ([place]) Comment on above: Performed By: #### A UNRULY, VALPR, CBC, ADIFF, BMP, GFR, AMM #### [address] [address] .GFRon 08-04-2023 GFR 58 ml/min/1.73sqm Normal [facility] ([place]) Comment on above: Result Comment: GFR Population [...] VALPR, CBC, ADIFF, BMP, GFR, AMM #### [address] [address] GFR Non- 48 ml/min/1.73sqm Normal [facility] ([place]) Comment on above: Result Comment: GFR Population [...] VALPR, CBC, ADIFF, BMP, GFR, AMM #### [place] [id number] .MDWon 08-04-2023 Monocyte Distribution Width 16.15 Normal 0.00-20.00 [facility] ([place]) Comment on above: Result Comment: For ED adult patients suspected of sepsis, MDW<=20.0 does not rule out sepsis or risk of sepsis Performed By: #### A UNRULY, VALPR, CBC, ADIFF, BMP, GFR, AMM #### [place] [address] .NEUABSon 08-04-2023 Neutrophil, Absolute 12.9 10 3/mcL High 2.9-6.2 A [facility] ([place]) Comment on above: Performed By: #### A UNRULY, VALPR, CBC, ADIFF, BMP, GFR, AMM #### [place] [address] APTTon 08-04-2023 aPTT Coag (Bld) [Time] 28.3 s Normal 25.0-35.0 [facility] ([place]) Comment on above: Result Comment: For Heparin anticoagulation therapy, the recommended therapeutic range is: 50.6-87.4 seconds. Patients on heparin therapy may have an extreme result. Performed By: #### A UNRULY, VALPR, CBC, ADIFF, BMP, GFR, AMM #### [place] [address] Heparin dose (APTT) Unknown Normal [facility] ([place]) Comment on above: Performed By: #### A UNRULY, VALPR, CBC, ADIFF, BMP, GFR, AMM #### [place] [address] BD BONE DENSITY DEXA AXIAL S KELETONon [...] 12:37:50 PM Ordering Provider: FISH JORDAN Normal [facility]) [facility] 08-04-2023 BUN/Creatinine Ratio 14 ratio Normal 7-27 [facility]) Comment on above: Performed By: #### A UNRULY, VALPR, CBC, ADIFF, BMP, GFR, AMM #### [address] [address] Calcium [Mass/Vol] 8.6 mg/dL Normal 8.4-10.2 [facility] ([place]) Comment on above: Performed By: #### A UNRULY, VALPR, CBC, ADIFF, BMP, GFR, AMM #### [address] [address] Chloride [Moles/Vol] 94 mmol/L Low 98-107 [facility] ([place]) Comment on above: Performed By: #### A UNRULY, VALPR, CBC, ADIFF, BMP, GFR, AMM #### [address] [address] CO2 [Moles/Vol] 23 mmol/L Normal 23-31 [facility] ([place]) Comment on above: Performed By: #### A UNRULY, VALPR, CBC, ADIFF, BMP, GFR, AMM #### [address] [address] Creatinine [Mass/Vol] 1.14 mg/dL High 0.55-1.02 [facility] ([place]) Comment on above: Performed By: #### A UNRULY, VALPR, CBC, ADIFF, BMP, GFR, AMM #### [address] [address] Electrolyte Balance 13.0 mEq/L Normal 4.0-15.0 [facility] ([place]) Comment on above: Performed By: #### A UNRULY, VALPR, CBC, ADIFF, BMP, GFR, AMM #### [address] [address] Glucose [Mass/Vol] 134 mg/dL High 80-115 [facility] ([place]) Comment on above: Performed By: #### A UNRULY, VALPR, CBC, ADIFF, BMP, GFR, AMM #### [place] [id number] Potassium [Moles/Vol] 4.3 mmol/L Normal 3.5-5.1 [facility] ([place]) Comment on above: Performed By: #### A UNRULY, VALPR, CBC, ADIFF, BMP, GFR, AMM #### [address] [address] Sodium [Moles/Vol] 130 mmol/L Low 136-145 [facility] ([place]) Comment on above: Performed By: #### A UNRULY, VALPR, CBC, ADIFF, BMP, GFR, AMM #### [address] [address] Urea nitrogen [Mass/Vol] 16 mg/dL Normal 7-18 [facility] ([place]) Comment on above: Performed By: #### A UNRULY, VALPR, CBC, ADIFF, BMP, GFR, AMM #### [place] [address] CBCon 08-04-2023 Erythrocyte distribution width (RBC) [Ratio] 15.1 % High 11.5-14.5 [facility] ([place]) Comment on above: Performed By: #### A UNRULY, VALPR, CBC, ADIFF, BMP, GFR, AMM #### [place] [address] Hematocrit (Bld) [Volume fraction] 32.3 % Low 37.0-47.0 [facility] ([place]) Comment on above: Performed By: #### A UNRULY, VALPR, CBC, ADIFF, BMP, GFR, AMM #### [place] [address] Hgb 11.1 G/dL Low 12.0-16.0 [facility] ([place]) Comment on above: Performed By: #### A UNRULY, VALPR, CBC, ADIFF, BMP, GFR, AMM #### [place] [address] MCH (RBC) [Entitic mass] 28.2 pg Normal 27.0-31.2 [facility] ([place]) Comment on above: Performed By: #### A UNRULY, VALPR, CBC, ADIFF, BMP, GFR, AMM #### [place] [address] MCHC 34.4 G/dL Normal 33.0-37.0 [facility] ([place]) Comment on above: Performed By: #### A UNRULY, VALPR, CBC, ADIFF, BMP, GFR, AMM #### [place] [id number] MCV (RBC) [Entitic vol] 82.1 fL Normal 80.0-94.0 A [facility] ([place]) Comment on above: Performed By: #### A UNRULY, VALPR, CBC, ADIFF, BMP, GFR, AMM #### [address] [address] Platelet 243 10 3/mcL Normal 130-400 [facility] ([place]) Comment on above: Performed By: #### A UNRULY, VALPR, CBC, ADIFF, BMP, GFR, AMM #### [address] [address] Platelet mean volume (Bld) [Entitic vol] 7.0 fL Low 7.4-10.4 [facility] ([place]) Comment on above: Performed By: #### A UNRULY, VALPR, CBC, ADIFF, BMP, GFR, AMM #### [address] [address] RBC 3.93 10 6/mcL Low 4.20-5.40 [facility] ([place]) Comment on above: Performed By: #### A UNRULY, VALPR, CBC, ADIFF, BMP, GFR, AMM #### [place] [id number] WBC 15.8 10 3/mcL High 4.6-10.8 [facility] ([place]) Comment on above: Performed By: #### A UNRULY, VALPR, CBC, ADIFF, BMP, GFR, AMM #### [place] [address] CT ANGIOGRAPHY HEAD W/ CONTR Felipe 08-04-2023 [...] 08/04/2023 3:33:32 PM Ordering Provider: AIDEN MARQUEZ Count Includes [facility] ([place]) CT ANGIOGRAPHY NECK W/CONTRA STon 08-04-2023 CT [...] Date: 08/04/2023 3:24:32 PM [facility]ing [facility] HEAD OR BRAIN W/O CONTRAS Ton [...] Victoriano Hernandez MD Preliminary Report By: Victoriano Heranndez MD Electronically signed By Victoriano Hernandez MD Dictated Date: 08/04/2023 2:08:23 PM Prelim Date: 08/04/2023 2:10:24 PM Sign Date: 08/04/2023 2:10:24 PM Ordering Provider: AIDEN Castro [facility] ([place]) LABORATORYOrdered By: Sayda Odonnell on 08-04-2023 aPTT [...] ng/L Male: 0-76 ng/L Testing performed on [employer] EXL using a homogeneous sandwich chemiluminescent immunoassay based on Guruji technology. Urea nitrogen [Mass/Vol] 16 mg/dL Normal [...] 110 mg/dL Normal 82 - 115 mg/dL [facility] 08-04-2023 High Sensitivity Troponin I 16 ng/L Normal 0-51 [facility] ([place]) Comment on above: Result Comment: High Sensitive Troponin I Reference Ranges: Female: 0-51 ng/L Male: 0-76 ng/L Testing performed on [employer] using a homogeneous sandwich chemiluminescent immunoassay based on Guruji technology. Performed By: #### A UNRULY, VALPR, CBC, ADIFF, BMP, GFR, AMM #### [place] [address] VALPRon 08-04-2023 LDose Valproic Acid: See eMAR Normal [facility] ([place]) Comment on above: Performed By: #### A UNRULY, VALPR, CBC, ADIFF, BMP, GFR, AMM #### [place] [address] Valproic Acid Lvl 84 mcg/mL Normal 50-100 [facility] ([place]) Comment on above: Performed By: #### A UNRULY, VALPR, CBC, ADIFF, BMP, GFR, AMM #### [place] [address] XR CHEST 1 VIEWon 08-04-2023 XR CHEST [...] Date: 08/04/2023 3:19:38 PM Ordering Provider: AIDEN Castro [facility] ([place]) .Auto Diffon 08-02-2023 Basophil, Absolute 0.1 10 3/mcL Normal 0.0-0.2 [facility] ([place]) Comment on above: Performed By: #### A UNRULY, VALPR, CBC, ADIFF, BMP, GFR, AMM #### [address] [address] Basophils/100 WBC (Bld) 0.6 % Normal 0.0-2.5 A [facility] ([place]) Comment on above: Performed By: #### A UNRULY, VALPR, CBC, ADIFF, BMP, GFR, AMM #### [address] [address] Eosinophil, Absolute 0.2 10 3/mcL Normal 0.0-0.4 [facility] ([place]) Comment on above: Performed By: #### A UNRULY, VALPR, CBC, ADIFF, BMP, GFR, AMM #### [address] [address] Eosinophils/100 WBC (Bld) 1.8 % Normal 0.0-7.0 [facility] ([place]) Comment on above: Performed By: #### A UNRULY, VALPR, CBC, ADIFF, BMP, GFR, AMM #### [address] [address] Lymphocyte, Absolute 3.8 10 3/mcL Normal 0.8-3.9 [facility] ([place]) Comment on above: Performed By: #### A UNRULY, VALPR, CBC, ADIFF, BMP, GFR, AMM #### [address] [address] Lymphocytes/100 WBC (Bld) 33.5 % Normal 10.0-50.0 [facility] ([place]) Comment on above: Performed By: #### A UNRULY, VALPR, CBC, ADIFF, BMP, GFR, AMM #### [address] [address] Monocyte, Absolute 1.6 10 3/mcL High 0.2-1.0 [facility] ([place]) Comment on above: Performed By: #### A UNRULY, VALPR, CBC, ADIFF, BMP, GFR, AMM #### [address] [address] Monocytes/100 WBC (Bld) 13.7 % High 1.7-13.0 [facility] ([place]) Comment on above: Performed By: #### A UNRULY, VALPR, CBC, ADIFF, BMP, GFR, AMM #### [address] [address] Neutrophils/100 WBC (Bld) 50.4 % Normal 37.0-80.0 [facility] ([place]) Comment on above: Performed By: #### A UNRULY, VALPR, CBC, ADIFF, BMP, GFR, AMM #### [address] [address] .GFRon 08-02-2023 GFR Non- 48 ml/min/1.73sqm Normal [facility] ([place]) Comment on above: Result Comment: GFR Population [...] VALPR, CBC, ADIFF, BMP, GFR, AMM #### [address] [address] GFR 58 ml/min/1.73sqm Normal [facility] ([place]) Comment on above: Result Comment: GFR Population [...] VALPR, CBC, ADIFF, BMP, GFR, AMM #### [address] [address] .NEUABSon 08-02-2023 Neutrophil, Absolute 5.7 10 3/mcL Normal 2.9-6.2 [facility] ([place] Comment on above: Performed By: #### A UNRULY, VALPR, CBC, ADIFF, BMP, GFR, AMM #### [address] [address] .Urinalysis Microscopic (AO) on 08-02-2023 UA RBC None Seen Normal None Seen [facility] ([place] Comment on above: Performed By: #### A UNRULY, VALPR, CBC, ADIFF, BMP, GFR, AMM #### [address] [address] UA Squam Epithelial None Seen Normal None Seen [facility] ([place]) Comment on above: Performed By: #### A UNRULY, VALPR, CBC, ADIFF, BMP, GFR, AMM #### [address] [address] UA WBC 0-5 Abnormal None Seen [facility] ([place]) Comment on above: Performed By: #### A UNRULY, VALPR, CBC, ADIFF, BMP, GFR, AMM #### [place] [address] [id number] 08-02-2023 Complement C3A 164.0 mg/dL Normal 90.0-170.0 [facility] ([place]) Comment on above: Result Comment: No te - New Reference Range in effect 19 Performed By: #### A UNRULY, VALPR, CBC, ADIFF, BMP, GFR, AMM #### [place] [address] Complement C4A 26.0 mg/dL Normal 16.0-38.0 [facility] ([place]) Comment on above: Performed By: #### A UNRULY, VALPR, CBC, ADIFF, BMP, GFR, AMM #### [place] [id number] CBCon 08-02-2023 Erythrocyte distribution width (RBC) [Ratio] 15.2 % High 11.5-14.5 [facility] ([place]) Comment on above: Performed By: #### A UNRULY, VALPR, CBC, ADIFF, BMP, GFR, AMM #### [place] [id number] Hematocrit (Bld) [Volume fraction] 34.6 % Low 37.0-47.0 [facility] ([place]) Comment on above: Performed By: #### A UNRULY, VALPR, CBC, ADIFF, BMP, GFR, AMM #### [place] [id number] Hgb 11.8 G/dL Low 12.0-16.0 [facility] ([place]) Comment on above: Performed By: #### A UNRULY, VALPR, CBC, ADIFF, BMP, GFR, AMM #### [place] [address] MCH (RBC) [Entitic mass] 28.3 pg Normal 27.0-31.2 [facility] ([place]) Comment on above: Performed By: #### A UNRULY, VALPR, CBC, ADIFF, BMP, GFR, AMM #### [place] [address] MCHC 34.2 G/dL Normal 33.0-37.0 [facility] ([place]) Comment on above: Performed By: #### A UNRULY, VALPR, CBC, ADIFF, BMP, GFR, AMM #### [place] [address] MCV (RBC) [Entitic vol] 82.8 fL Normal 80.0-94.0 A [facility] ([place]) Comment on above: Performed By: #### A UNRULY, VALPR, CBC, ADIFF, BMP, GFR, AMM #### [place] [address] Platelet 255 10 3/mcL Normal 130-400 [facility] ([place]) Comment on above: Performed By: #### A UNRULY, VALPR, CBC, ADIFF, BMP, GFR, AMM #### [place] [address] Platelet mean volume (Bld) [Entitic vol] 7.5 fL Normal 7.4-10.4 [facility] ([place]) Comment on above: Performed By: #### A UNRULY, VALPR, CBC, ADIFF, BMP, GFR, AMM #### [place] [address] RBC 4.17 10 6/mcL Low 4.20-5.40 [facility] ([place]) Comment on above: Performed By: #### A UNRULY, VALPR, CBC, ADIFF, BMP, GFR, AMM #### [place] [address] WBC 11.4 10 3/mcL High 4.6-10.8 [facility] ([place]) Comment on above: Performed By: #### A UNRULY, VALPR, CBC, ADIFF, BMP, GFR, AMM #### [place] [address] FEon 08-02-2023 Iron [Mass/Vol] 63 ug/dL Normal 50-170 [facility] ([place]) Comment on above: Performed By: #### A UNRULY, VALPR, CBC, ADIFF, BMP, GFR, AMM #### [facility] [address] [place] [address] Lety 08-02-2023 Ferritin [Mass/Vol] 57.0 ng/mL Normal 8.0-252.0 [facility] ([place]) Comment on above: Performed By: #### A UNRULY, VALPR, CBC, ADIFF, BMP, GFR, AMM #### [facility] [address] [place] [address] FESon 08-02-2023 Iron Sat 14 % Normal [facility] ([place]) Comment on above: Performed By: #### A UNRULY, VALPR, CBC, ADIFF, BMP, GFR, AMM #### [place] [id number] TIBC 453 mcg/dL High 250-450 [facility] ([place]) Comment on above: Performed By: #### A UNRULY, VALPR, CBC, ADIFF, BMP, GFR, AMM #### [address] [address] LABORATORYOrdered By: Brigitte Tovar on 08-02-2023 Appearance [...] 08-02-2023 PTH, Intact 89.7 pg/mL High 18.5-88.0 [facility] ([place]) Comment on above: Performed By: #### A UNRULY, VALPR, CBC, ADIFF, BMP, GFR, AMM #### [address] [address] RFPon 08-02-2023 Albumin Level 3.4 G/dL Normal 3.4-4.8 [facility] ([place]) Comment on above: Performed By: #### A UNRULY, VALPR, CBC, ADIFF, BMP, GFR, AMM #### [address] [address] BUN/Creatinine Ratio 15 ratio Normal 7-27 [facility] ([place]) Comment on above: Performed By: #### A UNRULY, VALPR, CBC, ADIFF, BMP, GFR, AMM #### [address] [address] Calcium [Mass/Vol] 10.3 mg/dL High 8.4-10.2 [facility] ([place]) Comment on above: Performed By: #### A UNRULY, VALPR, CBC, ADIFF, BMP, GFR, AMM #### [address] [address] Chloride [Moles/Vol] 100 mmol/L Normal 98-107 [facility] ([place]) Comment on above: Performed By: #### A UNRULY, VALPR, CBC, ADIFF, BMP, GFR, AMM #### [address] [address] CO2 [Moles/Vol] 25 mmol/L Normal 23-31 [facility] ([place]) Comment on above: Performed By: #### A UNRULY, VALPR, CBC, ADIFF, BMP, GFR, AMM #### [address] [address] Creatinine [Mass/Vol] 1.14 mg/dL High 0.55-1.02 [facility] ([place]) Comment on above: Performed By: #### A UNRULY, VALPR, CBC, ADIFF, BMP, GFR, AMM #### [address] [address] Electrolyte Balance 12.0 mEq/L Normal 4.0-15.0 [facility] ([place]) Comment on above: Performed By: #### A UNRULY, VALPR, CBC, ADIFF, BMP, GFR, AMM #### [address] [address] Glucose [Mass/Vol] 90 mg/dL Normal 80-115 [facility] ([place]) Comment on above: Performed By: #### A UNRULY, VALPR, CBC, ADIFF, BMP, GFR, AMM #### [address] [address] Phosphate [Mass/Vol] 3.4 mg/dL Normal 2.3-4.1 [facility] ([place]) Comment on above: Performed By: #### A UNRULY, VALPR, CBC, ADIFF, BMP, GFR, AMM #### [address] [address] Potassium [Moles/Vol] 5.0 mmol/L Normal 3.5-5.1 [facility] ([place]) Comment on above: Performed By: #### A UNRULY, VALPR, CBC, ADIFF, BMP, GFR, AMM #### [address] [address] Sodium [Moles/Vol] 137 mmol/L Normal 136-145 [facility] ([place]) Comment on above: Performed By: #### A UNRULY, VALPR, CBC, ADIFF, BMP, GFR, AMM #### [place] [id number] Urea nitrogen [Mass/Vol] 17 mg/dL Normal 7-18 [facility] ([place]) Comment on above: Performed By: #### A UNRULY, VALPR, CBC, ADIFF, BMP, GFR, AMM #### [place] [id number] RPCURon 08-02-2023 U Creatinine 69.1 mg/dL Normal 28.0-117.0 [facility] ([place]) Comment on above: Performed By: #### A UNRULY, VALPR, CBC, ADIFF, BMP, GFR, AMM #### [place] [id number] U Protein 9 mg/dL Normal 0-11 [facility] ([place]) Comment on above: Performed By: #### A UNRULY, VALPR, CBC, ADIFF, BMP, GFR, AMM #### [address] [address] U Ratio Prot/Creat 0.1 ratio Normal [facility] ([place]) Comment on above: Result Comment: resu lt calculated by rule GL_UR_PROT_NOTCALC_OLD (U Protein/U Creatinine) Performed By: #### A UNRULY, VALPR, CBC, ADIFF, BMP, GFR, AMM #### [place] [id number] SPEon 08-02-2023 Total Protein 8.4 G/dL High 5.7-8.2 [facility] ([place]) Comment on above: Result Comment: No te - New Reference Range in effect 19 Performed By: #### A UNRULY, VALPR, CBC, ADIFF, BMP, GFR, AMM #### [address] [address] UAon 08-02-2023 Color (U) Yellow Normal [facility] ([place]) Comment on above: Performed By: #### A UNRULY, VALPR, CBC, ADIFF, BMP, GFR, AMM #### [address] [address] Glucose (U) [Mass/Vol] Negative Normal Negative [facility] ([place]) Comment on above: Performed By: #### A UNRULY, VALPR, CBC, ADIFF, BMP, GFR, AMM #### [address] [address] Ketones Ql (U) Negative Normal Negative [facility] ([place]) Comment on above: Performed By: #### A UNRULY, VALPR, CBC, ADIFF, BMP, GFR, AMM #### [address] [address] UA Appear Clear Normal Clear [facility] ([place]) Comment on above: Performed By: #### A UNRULY, VALPR, CBC, ADIFF, BMP, GFR, AMM #### [address] [address] UA Blood Negative Normal Negative [facility] ([place]) Comment on above: Performed By: #### A UNRULY, VALPR, CBC, ADIFF, BMP, GFR, AMM #### [address] [address] UA Leuk Est Trace Abnormal Negative [facility] ([place]) Comment on above: Performed By: #### A UNRULY, VALPR, CBC, ADIFF, BMP, GFR, AMM #### [address] [address] UA Nitrite Negative Normal Negative [facility] ([place]) Comment on above: Performed By: #### A UNRULY, VALPR, CBC, ADIFF, BMP, GFR, AMM #### [address] [address] UA pH 7.0 Normal 5.0 - 8.0 [facility] ([place]) Comment on above: Performed By: #### A UNRULY, VALPR, CBC, ADIFF, BMP, GFR, AMM #### [address] [address] UA Protein Negative Normal Negative [facility] ([place]) Comment on above: Performed By: #### A UNRULY, VALPR, CBC, ADIFF, BMP, GFR, AMM #### [address] [address] UA Spec Grav 1.020 Normal 1.015-1.025 [facility] ([place]) Comment on above: Performed By: #### A UNRULY, VALPR, CBC, ADIFF, BMP, GFR, AMM #### [place] [address] UA Specimen Type Clean Catch Normal [facility] ([place]) Comment on above: Performed By: #### A UNRULY, VALPR, CBC, ADIFF, BMP, GFR, AMM #### [address] [address] UA Urobilinogen 0.2 E.U./dL Normal 0.2-1.0 [facility] ([place]) Comment on above: Performed By: #### A UNRULY, VALPR, CBC, ADIFF, BMP, GFR, AMM #### [address] [address] Urobilinogen (U) [Mass/Vol] Negative Normal Negative [facility] ([place]) Comment on above: Performed By: #### A UNRULY, VALPR, CBC, ADIFF, BMP, GFR, AMM #### [place] [address] URICon 08-02-2023 Uric Acid Lvl 8.6 mg/dL High 2.6-6.2 [facility] ([place]) Comment on above: Performed By: #### A UNRULY, VALPR, CBC, ADIFF, BMP, GFR, AMM #### [address] [address] VIDHon 08-02-2023 Vit. D 25-Hydroxy 92.5 ng/mL Normal [facility] ([place]) Comment on above: Result Comment: Inte rpretive Values Based on Total 25(OH) Vitamin D: Deficient <20 ng/mL Insufficient 20 - <30 ng/mL Sufficient 30-100 ng/mL Performed By: #### A UNRULY, VALPR, CBC, ADIFF, BMP, GFR, AMM #### [place] [address] KEPPRAon 06-21-2023 Levetiracetam Lvl 102.0 Normal [facility] ([place]) Comment on above: Order Comment: WRONG ENCOUNTER DONT CANCEL Performed By: #### A UNRULY, VALPR, CBC, ADIFF, BMP, GFR, AMM #### [place] [address] RENINon 06-21-2023 Renin Activity 30.750 Normal [facility] ([place]) Comment on above: Order Comment: WRONG ENCOUNTER DONT CANCEL Performed By: #### A UNRULY, VALPR, CBC, ADIFF, BMP, GFR, AMM #### [place] [address] LABORATORYOrdered By: Jasmyne Cintron on 06-20-2023 Albumin DL <= 20 mg/L (U) [Mass/Vol] 680 mcg/dL Invalid Interpretation Code AO ADM SS Albumin/Creatinine DL <= 20 mg/L (U) [Mass ratio] 16 mcg/mg Normal 0 - 30 mcg/mg AO ADM SS Creatinine (U) [Mass/Vol] 41.7 mg/dL Normal 28.0 - 117.0 mg/dL AO ADM SS MALBRon 06-20-2023 U Creatinine 41.7 mg/dL Normal 28.0-117.0 [facility] ([place]) Comment on above: Performed By: #### A UNRULY, VALPR, CBC, ADIFF, BMP, GFR, AMM #### [place] [address] U Microalb 680 mcg/dL Normal [facility] ([place]) Comment on above: Performed By: #### A UNRULY, VALPR, CBC, ADIFF, BMP, GFR, AMM #### [address] [address] U Ratio Alb/Cre 16 mcg/mg Normal 0-30 [facility] ([place]) Comment on above: Performed By: #### A UNRULY, VALPR, CBC, ADIFF, BMP, GFR, AMM #### [address] [address] KEPPRAon 06-17-2023 Levetiracetam Lvl Not performed Normal [facility] ([place]) Comment on above: Result Comment: Test not performed. Test cancelled by Healthcare provider after order was submitted to [facility]. Contacted by Viji Carrero at your facility 06.17.2023 Performed At: [facility] [address] [id number] Yan Sanchez MD Ph:[phone] Performed By: #### A UNRULY, VALPR, CBC, ADIFF, BMP, GFR, AMM #### [address] [address] .Auto Diffon 06-15-2023 Basophil, Absolute 0.0 10 3/mcL Normal 0.0-0.2 [facility] ([place]) Comment on above: Performed By: #### A UNRULY, VALPR, CBC, ADIFF, BMP, GFR, AMM #### [address] [address] Basophils/100 WBC (Bld) 0.4 % Normal 0.0-2.5 A [facility] ([place]) Comment on above: Performed By: #### A UNRULY, VALPR, CBC, ADIFF, BMP, GFR, AMM #### [address] [address] Eosinophil, Absolute 0.2 10 3/mcL Normal 0.0-0.4 [facility] ([place]) Comment on above: Performed By: #### A UNRULY, VALPR, CBC, ADIFF, BMP, GFR, AMM #### [address] [address] Eosinophils/100 WBC (Bld) 1.6 % Normal 0.0-7.0 [facility] ([place]) Comment on above: Performed By: #### A UNRULY, VALPR, CBC, ADIFF, BMP, GFR, AMM #### [address] [address] Lymphocyte, Absolute 3.1 10 3/mcL Normal 0.8-3.9 [facility] ([place]) Comment on above: Performed By: #### A UNRULY, VALPR, CBC, ADIFF, BMP, GFR, AMM #### [address] [address] Lymphocytes/100 WBC (Bld) 27.5 % Normal 10.0-50.0 [facility] ([place]) Comment on above: Performed By: #### A UNRULY, VALPR, CBC, ADIFF, BMP, GFR, AMM #### [address] [address] Monocyte, Absolute 1.0 10 3/mcL Normal 0.2-1.0 [facility] ([place]) Comment on above: Performed By: #### A UNRULY, VALPR, CBC, ADIFF, BMP, GFR, AMM #### [address] [address] Monocytes/100 WBC (Bld) 8.8 % Normal 1.7-13.0 A [facility] ([place] Comment on above: Performed By: #### A UNRULY, VALPR, CBC, ADIFF, BMP, GFR, AMM #### [address] [address] Neutrophils/100 WBC (Bld) 61.7 % Normal 37.0-80.0 [facility] ([place]) Comment on above: Performed By: #### A UNRULY, VALPR, CBC, ADIFF, BMP, GFR, AMM #### [address] [address] .GFRon 06-15-2023 GFR Non- 42 ml/min/1.73sqm Normal [facility] ([place]) Comment on above: Result Comment: GFR Population [...] VALPR, CBC, ADIFF, BMP, GFR, AMM #### [address] [address] GFR 51 ml/min/1.73sqm Normal [facility] ([place]) Comment on above: Result Comment: GFR Population [...] VALPR, CBC, ADIFF, BMP, GFR, AMM #### [address] [address] .NEUABSon 06-15-2023 Neutrophil, Absolute 6.9 10 3/mcL High 2.9-6.2 [facility] ([place]) Comment on above: Performed By: #### A UNRULY, VALPR, CBC, ADIFF, BMP, GFR, AMM #### [address] [address] A1Con 06-15-2023 HbA1c (Bld) [Mass fraction] 5.6 % Normal 4.3-6.4 [facility] ([place]) Comment on above: Performed By: #### A UNRULY, VALPR, CBC, ADIFF, BMP, GFR, AMM #### [place] [id number] CBCon 06-15-2023 Erythrocyte distribution width (RBC) [Ratio] 14.9 % High 11.5-14.5 [facility] ([place]) Comment on above: Performed By: #### A UNRULY, VALPR, CBC, ADIFF, BMP, GFR, AMM #### [place] [address] Hematocrit (Bld) [Volume fraction] 34.8 % Low 37.0-47.0 [facility] ([place]) Comment on above: Performed By: #### A UNRULY, VALPR, CBC, ADIFF, BMP, GFR, AMM #### [place] [address] Hgb 11.7 G/dL Low 12.0-16.0 [facility] ([place]) Comment on above: Performed By: #### A UNRULY, VALPR, CBC, ADIFF, BMP, GFR, AMM #### [place] [address] MCH (RBC) [Entitic mass] 28.3 pg Normal 27.0-31.2 [facility] ([place]) Comment on above: Performed By: #### A UNRULY, VALPR, CBC, ADIFF, BMP, GFR, AMM #### [place] [address] MCHC 33.6 G/dL Normal 33.0-37.0 [facility] ([place]) Comment on above: Performed By: #### A UNRULY, VALPR, CBC, ADIFF, BMP, GFR, AMM #### [place] [address] MCV (RBC) [Entitic vol] 84.3 fL Normal 80.0-94.0 A [facility] ([place] Comment on above: Performed By: #### A UNRULY, VALPR, CBC, ADIFF, BMP, GFR, AMM #### [place] [id number] Platelet 290 10 3/mcL Normal 130-400 [facility] ([place]) Comment on above: Performed By: #### A UNRULY, VALPR, CBC, ADIFF, BMP, GFR, AMM #### [place] [address] Platelet mean volume (Bld) [Entitic vol] 8.7 fL Normal 7.4-10.4 [facility] ([place]) Comment on above: Performed By: #### A UNRULY, VALPR, CBC, ADIFF, BMP, GFR, AMM #### [place] [address] RBC 4.13 10 6/mcL Low 4.20-5.40 [facility] ([place]) Comment on above: Performed By: #### A UNRULY, VALPR, CBC, ADIFF, BMP, GFR, AMM #### [place] [address] WBC 11.2 10 3/mcL High 4.6-10.8 [facility] ([place]) Comment on above: Performed By: #### A UNRULY, VALPR, CBC, ADIFF, BMP, GFR, AMM #### [place] [id number] CMPon 06-15-2023 Albumin Level 3.1 G/dL Low 3.4-4.8 [facility] ([place]) Comment on above: Performed By: #### A UNRULY, VALPR, CBC, ADIFF, BMP, GFR, AMM #### [place] [address] Albumin/Globulin [Mass ratio] 0.7 {ratio} Low 1.1-2.5 [facility] ([place]) Comment on above: Performed By: #### A UNRULY, VALPR, CBC, ADIFF, BMP, GFR, AMM #### [place] [address] ALP [Catalytic activity/Vol] 70 U/L Normal 40-135 [facility] ([place]) Comment on above: Performed By: #### A UNRULY, VALPR, CBC, ADIFF, BMP, GFR, AMM #### [address] [address] ALT [Catalytic activity/Vol] 30 U/L Normal 14-59 [facility] ([place]) Comment on above: Performed By: #### A UNRULY, VALPR, CBC, ADIFF, BMP, GFR, AMM #### [address] [address] AST [Catalytic activity/Vol] 31 U/L Normal 10-40 [facility] ([place]) Comment on above: Performed By: #### A UNRULY, VALPR, CBC, ADIFF, BMP, GFR, AMM #### [address] [address] Bili Total 0.2 mg/dL Normal 0.2-1.0 [facility] ([place]) Comment on above: Result Comment: Use of this assay is not recommended for patients undergoing treatment with eltrombopag due to the potential for falsely elevated results. Performed By: #### A UNRULY, VALPR, CBC, ADIFF, BMP, GFR, AMM #### [address] [address] BUN/Creatinine Ratio 17 ratio Normal 7-27 [facility] ([place]) Comment on above: Performed By: #### A UNRULY, VALPR, CBC, ADIFF, BMP, GFR, AMM #### [address] [address] Calcium [Mass/Vol] 10.1 mg/dL Normal 8.4-10.2 [facility] ([place]) Comment on above: Performed By: #### A UNRULY, VALPR, CBC, ADIFF, BMP, GFR, AMM #### [address] [address] Chloride [Moles/Vol] 99 mmol/L Normal 98-107 [facility] ([place]) Comment on above: Performed By: #### A UNRULY, VALPR, CBC, ADIFF, BMP, GFR, AMM #### [address] [address] CO2 [Moles/Vol] 24 mmol/L Normal 23-31 [facility] ([place]) Comment on above: Performed By: #### A UNRULY, VALPR, CBC, ADIFF, BMP, GFR, AMM #### [address] [address] Creatinine [Mass/Vol] 1.28 mg/dL High 0.55-1.02 [facility] ([place]) Comment on above: Performed By: #### A UNRULY, VALPR, CBC, ADIFF, BMP, GFR, AMM #### [address] [address] Electrolyte Balance 14.0 mEq/L Normal 4.0-15.0 [facility] ([place]) Comment on above: Performed By: #### A UNRULY, VALPR, CBC, ADIFF, BMP, GFR, AMM #### [address] [address] Globulin 4.7 G/dL Normal [facility] ([place]) Comment on above: Performed By: #### A UNRULY, VALPR, CBC, ADIFF, BMP, GFR, AMM #### [place] [address] Glucose [Mass/Vol] 167 mg/dL High 80-115 [facility] ([place]) Comment on above: Performed By: #### A UNRULY, VALPR, CBC, ADIFF, BMP, GFR, AMM #### [address] [address] Potassium [Moles/Vol] 3.6 mmol/L Normal 3.5-5.1 [facility] ([place]) Comment on above: Performed By: #### A UNRULY, VALPR, CBC, ADIFF, BMP, GFR, AMM #### [address] [address] Sodium [Moles/Vol] 137 mmol/L Normal 136-145 [facility] ([place]) Comment on above: Performed By: #### A UNRULY, VALPR, CBC, ADIFF, BMP, GFR, AMM #### [address] [address] Total Protein 7.8 G/dL Normal 6.4-8.2 [facility] ([place]) Comment on above: Performed By: #### A UNRULY, VALPR, CBC, ADIFF, BMP, GFR, AMM #### [place] [address] Urea nitrogen [Mass/Vol] 22 mg/dL High 7-18 [facility] ([place]) Comment on above: Performed By: #### A UNRULY, VALPR, CBC, ADIFF, BMP, GFR, AMM #### [place] [id number] LIPIDon 06-15-2023 Cholesterol [Mass/Vol] 122 mg/dL Normal 0-200 [facility] ([place] Comment on above: Result Comment: Chol esterol Reference Interval: Less than 200 Desirable 200-239 Borderline high risk 240 and above High risk Performed By: #### A UNRULY, VALPR, CBC, ADIFF, BMP, GFR, AMM #### [place] [address] Cholesterol in HDL [Mass/Vol] 37 mg/dL Low 40-60 [facility] ([place]) Comment on above: Performed By: #### A UNRULY, VALPR, CBC, ADIFF, BMP, GFR, AMM #### [place] [address] Cholesterol in LDL [Mass/Vol] 31 mg/dL Normal 0-130 [facility] ([place]) Comment on above: Performed By: #### A UNRULY, VALPR, CBC, ADIFF, BMP, GFR, AMM #### [place] [id number] Triglyceride [Mass/Vol] 270 mg/dL High 0-150 A [facility] ([place]) Comment on above: Performed By: #### A UNRULY, VALPR, CBC, ADIFF, BMP, GFR, AMM #### [place] [address] PTHon 06-15-2023 PTH, Intact 52.9 pg/mL Normal 18.5-88.0 [facility] ([place]) Comment on above: Performed By: #### A UNRULY, VALPR, CBC, ADIFF, BMP, GFR, AMM #### [address] [address] VALPRon 06-15-2023 LDose Valproic Acid: Unknown Normal [facility] ([place]) Comment on above: Performed By: #### A UNRULY, VALPR, CBC, ADIFF, BMP, GFR, AMM #### [place] [address] Valproic Acid Lvl 130 mcg/mL High 50-100 [facility] ([place]) Comment on above: Performed By: #### A UNRULY, VALPR, CBC, ADIFF, BMP, GFR, AMM #### [place] [address] VIDHon 06-15-2023 Vit. D 25-Hydroxy 87.8 ng/mL Normal [facility] ([place]) Comment on above: Result Comment: Inte rpretive Values Based on Total 25(OH) Vitamin D: Deficient <20 ng/mL Insufficient 20 - <30 ng/mL Sufficient 30-100 ng/mL Performed By: #### A UNRULY, VALPR, CBC, ADIFF, BMP, GFR, AMM #### [place] [address] .Auto Diffon 06-14-2023 Basophil, Absolute 0.0 10 3/mcL Normal 0.0-0.2 [facility] ([place]) Comment on above: Performed By: #### A UNRULY, VALPR, CBC, ADIFF, BMP, GFR, AMM #### [place] [address] Basophils/100 WBC (Bld) 0.4 % Normal 0.0-2.5 A [facility] ([place]) Comment on above: Performed By: #### A UNRULY, VALPR, CBC, ADIFF, BMP, GFR, AMM #### [place] [id number] Eosinophil, Absolute 0.2 10 3/mcL Normal 0.0-0.4 [facility] ([place]) Comment on above: Performed By: #### A UNRULY, VALPR, CBC, ADIFF, BMP, GFR, AMM #### [place] [id number] Eosinophils/100 WBC (Bld) 1.6 % Normal 0.0-7.0 [facility] ([place]) Comment on above: Performed By: #### A UNURLY, VALPR, CBC, ADIFF, BMP, GFR, AMM #### [address] [address] Lymphocyte, Absolute 3.1 10 3/mcL Normal 0.8-3.9 [facility] ([place]) Comment on above: Performed By: #### A UNRULY, VALPR, CBC, ADIFF, BMP, GFR, AMM #### [address] [address] Lymphocytes/100 WBC (Bld) 27.5 % Normal 10.0-50.0 [facility] ([place]) Comment on above: Performed By: #### A UNRULY, VALPR, CBC, ADIFF, BMP, GFR, AMM #### [address] [address] Monocyte, Absolute 1.0 10 3/mcL Normal 0.2-1.0 [facility] ([place]) Comment on above: Performed By: #### A UNRULY, VALPR, CBC, ADIFF, BMP, GFR, AMM #### [address] [address] Monocytes/100 WBC (Bld) 8.8 % Normal 1.7-13.0 A [facility] ([place]) Comment on above: Performed By: #### A UNRULY, VALPR, CBC, ADIFF, BMP, GFR, AMM #### [address] [address] Neutrophils/100 WBC (Bld) 61.7 % Normal 37.0-80.0 [facility] ([place]) Comment on above: Performed By: #### A UNRULY, VALPR, CBC, ADIFF, BMP, GFR, AMM #### [address] [address] .GFRon 06-14-2023 GFR 51 ml/min/1.73sqm Normal [facility] ([place]) Comment on above: Result Comment: GFR Population [...] VALPR, CBC, ADIFF, BMP, GFR, AMM #### [address] [address] GFR Non- 42 ml/min/1.73sqm Normal [facility] ([place]) Comment on above: Result Comment: GFR Population [...] VALPR, CBC, ADIFF, BMP, GFR, AMM #### [address] [address] .NEUABSon 06-14-2023 Neutrophil, Absolute 6.9 10 3/mcL High 2.9-6.2 [facility] ([place]) Comment on above: Performed By: #### A UNRULY, VALPR, CBC, ADIFF, BMP, GFR, AMM #### [address] [address] A1Con 06-14-2023 HbA1c (Bld) [Mass fraction] 5.6 % Normal 4.3-6.4 [facility] ([place]) Comment on above: Performed By: #### A UNRULY, VALPR, CBC, ADIFF, BMP, GFR, AMM #### [place] [id number] CBCon 06-14-2023 Erythrocyte distribution width (RBC) [Ratio] 14.9 % High 11.5-14.5 [facility] ([place]) Comment on above: Performed By: #### A UNRULY, VALPR, CBC, ADIFF, BMP, GFR, AMM #### [place] [address] Hematocrit (Bld) [Volume fraction] 34.8 % Low 37.0-47.0 [facility] ([place]) Comment on above: Performed By: #### A UNRULY, VALPR, CBC, ADIFF, BMP, GFR, AMM #### [place] [address] Hgb 11.7 G/dL Low 12.0-16.0 [facility] ([place]) Comment on above: Performed By: #### A UNRULY, VALPR, CBC, ADIFF, BMP, GFR, AMM #### [place] [address] MCH (RBC) [Entitic mass] 28.3 pg Normal 27.0-31.2 [facility] ([place]) Comment on above: Performed By: #### A UNRULY, VALPR, CBC, ADIFF, BMP, GFR, AMM #### [place] [address] MCHC 33.6 G/dL Normal 33.0-37.0 [facility] ([place]) Comment on above: Performed By: #### A UNRULY, VALPR, CBC, ADIFF, BMP, GFR, AMM #### [place] [address] MCV (RBC) [Entitic vol] 84.3 fL Normal 80.0-94.0 A [facility] ([place]) Comment on above: Performed By: #### A UNRULY, VALPR, CBC, ADIFF, BMP, GFR, AMM #### [place] [id number] Platelet 290 10 3/mcL Normal 130-400 [facility] ([place]) Comment on above: Performed By: #### A UNRULY, VALPR, CBC, ADIFF, BMP, GFR, AMM #### [place] [address] Platelet mean volume (Bld) [Entitic vol] 8.7 fL Normal 7.4-10.4 [facility] ([place]) Comment on above: Performed By: #### A UNRULY, VALPR, CBC, ADIFF, BMP, GFR, AMM #### [place] [address] RBC 4.13 10 6/mcL Low 4.20-5.40 [facility] ([place]) Comment on above: Performed By: #### A UNRULY, VALPR, CBC, ADIFF, BMP, GFR, AMM #### [place] [id number] WBC 11.2 10 3/mcL High 4.6-10.8 [facility] ([place]) Comment on above: Performed By: #### A UNRULY, VALPR, CBC, ADIFF, BMP, GFR, AMM #### [place] [id number] CMPon 06-14-2023 Albumin Level 3.1 G/dL Low 3.4-4.8 [facility] ([place]) Comment on above: Performed By: #### A UNRULY, VALPR, CBC, ADIFF, BMP, GFR, AMM #### [place] [address] Albumin/Globulin [Mass ratio] 0.7 {ratio} Low 1.1-2.5 [facility] ([place]) Comment on above: Performed By: #### A UNRULY, VALPR, CBC, ADIFF, BMP, GFR, AMM #### [place] [address] ALP [Catalytic activity/Vol] 70 U/L Normal 40-135 [facility] ([place]) Comment on above: Performed By: #### A UNRULY, VALPR, CBC, ADIFF, BMP, GFR, AMM #### [address] [address] ALT [Catalytic activity/Vol] 30 U/L Normal 14-59 [facility] ([place]) Comment on above: Performed By: #### A UNRULY, VALPR, CBC, ADIFF, BMP, GFR, AMM #### [address] [address] AST [Catalytic activity/Vol] 31 U/L Normal 10-40 [facility] ([place]) Comment on above: Performed By: #### A UNRULY, VALPR, CBC, ADIFF, BMP, GFR, AMM #### [address] [address] Bili Total 0.2 mg/dL Normal 0.2-1.0 [facility] ([place]) Comment on above: Result Comment: Use of this assay is not recommended for patients undergoing treatment with eltrombopag due to the potential for falsely elevated results. Performed By: #### A UNRULY, VALPR, CBC, ADIFF, BMP, GFR, AMM #### [address] [address] BUN/Creatinine Ratio 17 ratio Normal 7-27 [facility] ([place]) Comment on above: Performed By: #### A UNRULY, VALPR, CBC, ADIFF, BMP, GFR, AMM #### [address] [address] Calcium [Mass/Vol] 10.1 mg/dL Normal 8.4-10.2 [facility] ([place]) Comment on above: Performed By: #### A UNRULY, VALPR, CBC, ADIFF, BMP, GFR, AMM #### [address] [address] Chloride [Moles/Vol] 99 mmol/L Normal 98-107 [facility] ([place]) Comment on above: Performed By: #### A UNRULY, VALPR, CBC, ADIFF, BMP, GFR, AMM #### [address] [address] CO2 [Moles/Vol] 24 mmol/L Normal 23-31 [facility] ([place]) Comment on above: Performed By: #### A UNRULY, VALPR, CBC, ADIFF, BMP, GFR, AMM #### [address] [address] Creatinine [Mass/Vol] 1.28 mg/dL High 0.55-1.02 [facility] ([place]) Comment on above: Performed By: #### A UNRULY, VALPR, CBC, ADIFF, BMP, GFR, AMM #### [address] [address] Electrolyte Balance 14.0 mEq/L Normal 4.0-15.0 [facility] ([place]) Comment on above: Performed By: #### A UNRULY, VALPR, CBC, ADIFF, BMP, GFR, AMM #### [address] [address] Globulin 4.7 G/dL Normal [facility] ([place]) Comment on above: Performed By: #### A UNRULY, VALPR, CBC, ADIFF, BMP, GFR, AMM #### [place] [address] Glucose [Mass/Vol] 167 mg/dL High 80-115 [facility] ([place]) Comment on above: Performed By: #### A UNRULY, VALPR, CBC, ADIFF, BMP, GFR, AMM #### [address] [address] Potassium [Moles/Vol] 3.6 mmol/L Normal 3.5-5.1 [facility] ([place]) Comment on above: Performed By: #### A UNRULY, VALPR, CBC, ADIFF, BMP, GFR, AMM #### [address] [address] Sodium [Moles/Vol] 137 mmol/L Normal 136-145 [facility] ([place]) Comment on above: Performed By: #### A UNRULY, VALPR, CBC, ADIFF, BMP, GFR, AMM #### [address] [address] Total Protein 7.8 G/dL Normal 6.4-8.2 [facility] ([place]) Comment on above: Performed By: #### A UNRULY, VALPR, CBC, ADIFF, BMP, GFR, AMM #### [address] [address] Urea nitrogen [Mass/Vol] 22 mg/dL High 7-18 [facility] ([place]) Comment on above: Performed By: #### A UNRULY, VALPR, CBC, ADIFF, BMP, GFR, AMM #### [address] [address] LABORATORYOrdered By: Sayda Odonnell on 06-14-2023 25-hydroxyvitamin [...] 06-14-2023 Cholesterol [Mass/Vol] 122 mg/dL Normal 0-200 [facility] ([place]) Comment on above: Result Comment: Chol esterol Reference Interval: Less than 200 Desirable 200-239 Borderline high risk 240 and above High risk Performed By: #### A UNRULY, VALPR, CBC, ADIFF, BMP, GFR, AMM #### [address] [address] Cholesterol in HDL [Mass/Vol] 37 mg/dL Low 40-60 [facility] ([place]) Comment on above: Performed By: #### A UNRULY, VALPR, CBC, ADIFF, BMP, GFR, AMM #### [address] [address] Cholesterol in LDL [Mass/Vol] 31 mg/dL Normal 0-130 [facility] ([place]) Comment on above: Performed By: #### A UNRULY, VALPR, CBC, ADIFF, BMP, GFR, AMM #### [address] [address] Triglyceride [Mass/Vol] 270 mg/dL High 0-150 A [facility] ([place]) Comment on above: Performed By: #### A UNRULY, VALPR, CBC, ADIFF, BMP, GFR, AMM #### [place] [address] VALPRon 06-14-2023 LDose Valproic Acid: Unknown Normal [facility] ([place]) Comment on above: Performed By: #### A UNRULY, VALPR, CBC, ADIFF, BMP, GFR, AMM #### [place] [address] Valproic Acid Lvl 130 mcg/mL High 50-100 [facility] ([place]) Comment on above: Performed By: #### A UNRULY, VALPR, CBC, ADIFF, BMP, GFR, AMM #### [place] [address] VIDHon 06-14-2023 Vit. D 25-Hydroxy 87.8 ng/mL Normal [facility] ([place]) Comment on above: Result Comment: Inte rpretive Values Based on Total 25(OH) Vitamin D: Deficient <20 ng/mL Insufficient 20 - <30 ng/mL Sufficient 30-100 ng/mL Performed By: #### A UNRULY, VALPR, CBC, ADIFF, BMP, GFR, AMM #### [place] [address] LABORATORYOrdered By: Jasmyne Foster on 06-13-2023 25-hydroxyvitamin [...] at your facility 06.17.2023 Performed At: [facility] [address] [id number] Yan Sanchez MD Ph:[phone] RENINDon 12-18-2022 Direct Renin 187.7 pg/mL High 3.6-81.6 [facility] ([place]) Comment on above: Result Comment: A ra [...] Age >=41 years: 2.5-45.1 pg/mL Performed By: [employer] [place] [address] Product Introduction Manager: Rigoberto Burgos III, M.D. CLIA#: [id number] Performed By: #### A UNRULY, VALPR, CBC, ADIFF, BMP, GFR, AMM #### [place] [address] Patient Upright or Supine Upright Normal [facility] ([place]) Comment on above: Result Comment: Perf ormed By: [facility] [address] [place] [address] Product Introduction Manager: Rigoberto Burgos III, M.D. CLIA#: [id number] Performed By: #### A UNRULY, VALPR, CBC, ADIFF, BMP, GFR, AMM #### [address] [address] KEPPRAon 12-14-2022 Levetiracetam Lvl 99.1 UG/ML High 12.0-46.0 [facility] ([place]) Comment on above: Result Comment: This test [...] developed and its performance characteristics determined by [facility] [place] ([facility]). It has not been cleared or approved by the FDA. [facility] is regulated under CLIA as qualified to perform high-complexity testing. This test is used for clinical purposes. It should not be regarded as investigational or for research. Performed By: [facility] [address] [place] [address] Product Introduction Manager: Rigoberto Burgos III, M.D. CLIA#: [id number] Performed By: #### A UNRULY, VALPR, CBC, ADIFF, BMP, GFR, AMM #### [place] [address] PTHon 12-14-2022 PTH, Intact 62.8 pg/mL Normal 18.5-88.0 [facility] ([place]) Comment on above: Performed By: #### A UNRULY, VALPR, CBC, ADIFF, BMP, GFR, AMM #### [place] [address] .Auto Diffon 12-13-2022 Basophil, Absolute 0.1 10 3/mcL Normal 0.0-0.2 [facility] ([place]) Comment on above: Performed By: #### T SH, LIPID, GFR, ANEU, CMP, PTH, A1C, CBC, VIDH, ADIFF ####[place] [address]#### VALPR, LEVET, RENIND ####[facility] [place], [place] [address] Basophils/100 WBC (Bld) 0.7 % Normal 0.0-2.5 A [facility] ([place]) Comment on above: Performed By: #### T SH, LIPID, GFR, ANEU, CMP, PTH, A1C, CBC, VIDH, ADIFF ####[place] [address]#### VALPR, LEVET, RENIND ####[address] [place], [place] [address] Eosinophil, Absolute 0.1 10 3/mcL Normal 0.0-0.4 [facility] ([place]) Comment on above: Performed By: #### T SH, LIPID, GFR, ANEU, CMP, PTH, A1C, CBC, VIDH, ADIFF ####[place] [address]#### VALPR, LEVET, RENIND ####[address] Elliott[address] [place], [place] [address] Eosinophils/100 WBC (Bld) 1.1 % Normal 0.0-7.0 [facility] ([place]) Comment on above: Performed By: #### T SH, LIPID, GFR, ANEU, CMP, PTH, A1C, CBC, VIDH, ADIFF ####[place] [address]#### VALPR, LEVET, RENIND ####[address] [place], [place] [address] Lymphocyte, Absolute 3.5 10 3/mcL Normal 0.8-3.9 [facility] ([place]) Comment on above: Performed By: #### T SH, LIPID, GFR, ANEU, CMP, PTH, A1C, CBC, VIDH, ADIFF ####[place] [address]#### VALPR, LEVET, RENIND ####[place] [address] [place], [place] [address] Lymphocytes/100 WBC (Bld) 32.5 % Normal 10.0-50.0 [facility] ([place]) Comment on above: Performed By: #### T SH, LIPID, GFR, ANEU, CMP, PTH, A1C, CBC, VIDH, ADIFF ####[place] [address]#### VALPR, LEVET, RENIND ####[address] [place], [place] [address] Monocyte, Absolute 1.3 10 3/mcL High 0.2-1.0 [facility] ([place]) Comment on above: Performed By: #### T SH, LIPID, GFR, ANEU, CMP, PTH, A1C, CBC, VIDH, ADIFF ####[place] [address]#### VALPR, LEVET, RENIND ####[address] [place], [place] [address] Monocytes/100 WBC (Bld) 12.3 % Normal 1.7-13.0 A [facility] ([place]) Comment on above: Performed By: #### T SH, LIPID, GFR, ANEU, CMP, PTH, A1C, CBC, VIDH, ADIFF ####[place] [address]#### VALPR, LEVET, RENIND ####[address] Elliott[address] [place], [place] [address] Neutrophils/100 WBC (Bld) 53.4 % Normal 37.0-80.0 [facility] ([place]) Comment on above: Performed By: #### T SH, LIPID, GFR, ANEU, CMP, PTH, A1C, CBC, VIDH, ADIFF ####[place] [address]#### VALPR, LEVET, RENIND ####[address] [address] [place], [place] [address] .GFRon 12-13-2022 GFR Non- 47 ml/min/1.73sqm Normal [facility] ([place]) Comment on above: Result Comment: GFR Population [...] VALPR, CBC, ADIFF, BMP, GFR, AMM #### [address] [address] GFR 57 ml/min/1.73sqm Normal [facility] ([place]) Comment on above: Result Comment: GFR Population [...] VALPR, CBC, ADIFF, BMP, GFR, AMM #### [address] [address] .NEUABSon 12-13-2022 Neutrophil, Absolute 5.8 10 3/mcL Normal 2.9-6.2 [facility] ([place]) Comment on above: Performed By: #### T SH, LIPID, GFR, ANEU, CMP, PTH, A1C, CBC, VIDH, ADIFF ####[address] [address]#### VALPR, LEVET, RENIND ####[place] [address] [place], [place] [address] A1Con 12-13-2022 HbA1c (Bld) [Mass fraction] 5.9 % Normal 4.3-6.4 [facility] ([place]) Comment on above: Performed By: #### T SH, LIPID, GFR, ANEU, CMP, PTH, A1C, CBC, VIDH, ADIFF ####[place] [address]#### VALPR, LEVET, RENIND ####[address] [place], [place] [address] CBCon 12-13-2022 Erythrocyte distribution width (RBC) [Ratio] 14.6 % High 11.5-14.5 [facility] ([place]) Comment on above: Performed By: #### T SH, LIPID, GFR, ANEU, CMP, PTH, A1C, CBC, VIDH, ADIFF ####[place] [address]#### VALPR, LEVET, RENIND ####[address] [place], [place] [address] Hematocrit (Bld) [Volume fraction] 34.5 % Low 37.0-47.0 [facility] ([place]) Comment on above: Performed By: #### T SH, LIPID, GFR, ANEU, CMP, PTH, A1C, CBC, VIDH, ADIFF ####[place] [address]#### VALPR, LEVET, RENIND ####[address] [place], [place] [address] Hgb 11.6 G/dL Low 12.0-16.0 [facility] ([place]) Comment on above: Performed By: #### T SH, LIPID, GFR, ANEU, CMP, PTH, A1C, CBC, VIDH, ADIFF ####[place] [address]#### VALPR, LEVET, RENIND ####[address] [place], [place] [address] MCH (RBC) [Entitic mass] 27.9 pg Normal 27.0-31.2 [facility] ([place]) Comment on above: Performed By: #### T SH, LIPID, GFR, ANEU, CMP, PTH, A1C, CBC, VIDH, ADIFF ####[place] [address]#### VALPR, LEVET, RENIND ####[address] [place], [place] [address] MCHC 33.7 G/dL Normal 33.0-37.0 [facility] ([place]) Comment on above: Performed By: #### T SH, LIPID, GFR, ANEU, CMP, PTH, A1C, CBC, VIDH, ADIFF ####[place] [address]#### VALPR, LEVET, RENIND ####[address] [place], [place] [address] MCV (RBC) [Entitic vol] 82.9 fL Normal 80.0-94.0 A [facility] ([place]) Comment on above: Performed By: #### T SH, LIPID, GFR, ANEU, CMP, PTH, A1C, CBC, VIDH, ADIFF ####[place] [address]#### VALPR, LEVET, RENIND ####[address] [address]Cqs[address] [place], [place] [address] Platelet 261 10 3/mcL Normal 130-400 [facility] ([place]) Comment on above: Performed By: #### T SH, LIPID, GFR, ANEU, CMP, PTH, A1C, CBC, VIDH, ADIFF ####[place] [address]#### VALPR, LEVET, RENIND ####[address] [place], [place] [address] Platelet mean volume (Bld) [Entitic vol] 7.8 fL Normal 7.4-10.4 [facility] ([place]) Comment on above: Performed By: #### T SH, LIPID, GFR, ANEU, CMP, PTH, A1C, CBC, VIDH, ADIFF ####[place] [address]#### VALPR, LEVET, RENIND ####[address] [place], [place] [address] RBC 4.16 10 6/mcL Low 4.20-5.40 [facility] ([place]) Comment on above: Performed By: #### T SH, LIPID, GFR, ANEU, CMP, PTH, A1C, CBC, VIDH, ADIFF ####[address] [address]#### VALPR, LEVET, RENIND ####[place] [address] [place], [place] [address] WBC 10.8 10 3/mcL Normal 4.6-10.8 [facility] ([place]) Comment on above: Performed By: #### T SH, LIPID, GFR, ANEU, CMP, PTH, A1C, CBC, VIDH, ADIFF ####[place] [address]#### VALPR, LEVET, RENIND ####[place] [address] [place], [place] [address] CMPon 12-13-2022 Albumin Level 3.7 G/dL Normal 3.4-4.8 [facility] ([place]) Comment on above: Performed By: #### A UNRULY, VALPR, CBC, ADIFF, BMP, GFR, AMM #### [address] [address] Albumin/Globulin [Mass ratio] 0.8 {ratio} Low 1.1-2.5 [facility] ([place]) Comment on above: Performed By: #### A UNRULY, VALPR, CBC, ADIFF, BMP, GFR, AMM #### [address] [address] ALP [Catalytic activity/Vol] 68 U/L Normal 40-135 [facility] ([place]) Comment on above: Performed By: #### A UNRULY, VALPR, CBC, ADIFF, BMP, GFR, AMM #### [address] [address] ALT [Catalytic activity/Vol] 33 U/L Normal 14-59 [facility] ([place]) Comment on above: Performed By: #### A UNRULY, VALPR, CBC, ADIFF, BMP, GFR, AMM #### [address] [address] AST [Catalytic activity/Vol] 32 U/L Normal 10-40 [facility] ([place]) Comment on above: Performed By: #### A UNRULY, VALPR, CBC, ADIFF, BMP, GFR, AMM #### [address] [address] Bili Total 0.3 mg/dL Normal 0.2-1.0 [facility] ([place]) Comment on above: Result Comment: Use of this assay is not recommended for patients undergoing treatment with eltrombopag due to the potential for falsely elevated results. Performed By: #### A UNRULY, VALPR, CBC, ADIFF, BMP, GFR, AMM #### [address] [address] BUN/Creatinine Ratio 22 ratio Normal 7-27 [facility] ([place]) Comment on above: Performed By: #### A UNRULY, VALPR, CBC, ADIFF, BMP, GFR, AMM #### [address] [address] Calcium [Mass/Vol] 10.4 mg/dL High 8.4-10.2 [facility] ([place]) Comment on above: Performed By: #### A UNRULY, VALPR, CBC, ADIFF, BMP, GFR, AMM #### [address] [address] Chloride [Moles/Vol] 98 mmol/L Normal 98-107 [facility] ([place]) Comment on above: Performed By: #### A UNRULY, VALPR, CBC, ADIFF, BMP, GFR, AMM #### [address] [address] CO2 [Moles/Vol] 28 mmol/L Normal 23-31 [facility] ([place]) Comment on above: Performed By: #### A UNRULY, VALPR, CBC, ADIFF, BMP, GFR, AMM #### [address] [address] Creatinine [Mass/Vol] 1.15 mg/dL High 0.55-1.02 [facility] ([place]) Comment on above: Performed By: #### A UNRULY, VALPR, CBC, ADIFF, BMP, GFR, AMM #### [address] [address] Electrolyte Balance 10.0 mEq/L Normal 4.0-15.0 [facility] ([place]) Comment on above: Performed By: #### A UNRULY, VALPR, CBC, ADIFF, BMP, GFR, AMM #### [address] [address] Globulin 4.8 G/dL Normal [facility] ([place]) Comment on above: Performed By: #### A UNRULY, VALPR, CBC, ADIFF, BMP, GFR, AMM #### [address] [address] Glucose [Mass/Vol] 88 mg/dL Normal 80-115 [facility] ([place]) Comment on above: Performed By: #### A UNRULY, VALPR, CBC, ADIFF, BMP, GFR, AMM #### [place] [id number] Potassium [Moles/Vol] 4.7 mmol/L Normal 3.5-5.1 [facility] ([place]) Comment on above: Performed By: #### A UNRULY, VALPR, CBC, ADIFF, BMP, GFR, AMM #### [place] [id number] Sodium [Moles/Vol] 136 mmol/L Normal 136-145 [facility] ([place]) Comment on above: Performed By: #### A UNRULY, VALPR, CBC, ADIFF, BMP, GFR, AMM #### [address] [address] Total Protein 8.5 G/dL High 6.4-8.2 [facility] ([place]) Comment on above: Performed By: #### A UNRULY, VALPR, CBC, ADIFF, BMP, GFR, AMM #### [address] [address] Urea nitrogen [Mass/Vol] 25 mg/dL High 7-18 [facility] ([place]) Comment on above: Performed By: #### A UNRULY, VALPR, CBC, ADIFF, BMP, GFR, AMM #### [facility] [address] [place] [address] LABORATORYOrdered By: SYSTEM SYSTEM on 12-13-2022 25-hydroxyvitamin [...] developed and its performance characteristics determined by [facility] [place] ([facility] It has not been cleared or approved by the FDA. [facility] is regulated under CLIA as qualified to perform high-complexity testing. This test is used for clinical purposes. It should not be regarded as investigational or for research. Performed By: [facility] [address] [place] [address] Product Introduction Manager: Rigoberto Burgos III, M.D. CLIA#: [id number] LIPIDon 12-13-2022 Cholesterol [Mass/Vol] 176 mg/dL Normal 0-200 [facility] ([place]) Comment on above: Result Comment: Chol esterol Reference Interval: Less than 200 Desirable 200-239 Borderline high risk 240 and above High risk Performed By: #### A UNRULY, VALPR, CBC, ADIFF, BMP, GFR, AMM #### [address] [address] Cholesterol in HDL [Mass/Vol] 45 mg/dL Normal 40-60 [facility] ([place]) Comment on above: Performed By: #### A UNRULY, VALPR, CBC, ADIFF, BMP, GFR, AMM #### [address] [address] Cholesterol in LDL [Mass/Vol] 83 mg/dL Normal 0-130 [facility] ([place]) Comment on above: Performed By: #### A UNRULY, VALPR, CBC, ADIFF, BMP, GFR, AMM #### [address] [address] Triglyceride [Mass/Vol] 239 mg/dL High 0-150 A [facility] ([place]) Comment on above: Result Comment: Trig lyceride Reference Interval: Less than 150 Normal 150-199 Borderline high risk 200-499 High risk 500 or higher Very high risk Performed By: #### A UNRULY, VALPR, CBC, ADIFF, BMP, GFR, AMM #### [address] [address] TSHon 12-13-2022 TSH Qn 3.02 m[IU]/L Normal 0.36-3.74 [facility] ([place]) Comment on above: Performed By: #### T SH, LIPID, GFR, ANEU, CMP, PTH, A1C, CBC, VIDH, ADIFF ####[address] [address]#### VALPR, LEVET, RENIND ####[id number] [place], [place] [address] VALPRon 12-13-2022 LDose Valproic Acid: Unknown Normal [facility] ([place]) Comment on above: Performed By: #### A UNRULY, VALPR, CBC, ADIFF, BMP, GFR, AMM #### [address] [address] Valproic Acid Lvl 125 mcg/mL High 50-100 [facility] ([place]) Comment on above: Performed By: #### A UNRULY, VALPR, CBC, ADIFF, BMP, GFR, AMM #### [place] [address] VIDHon 12-13-2022 Vit. D 25-Hydroxy 81.8 ng/mL Normal [facility] ([place]) Comment on above: Result Comment: Inte rpretive Values Based on Total 25(OH) Vitamin D: Deficient <20 ng/mL Insufficient 20 - <30 ng/mL Sufficient 30-100 ng/mL Performed By: #### A UNRULY, VALPR, CBC, ADIFF, BMP, GFR, AMM #### [place] [address] MRI KIDNEYon 10-01-2022 MRI KIDNEY ORIGINAL EXAMINATION: [...] 10/01/2022 4:43:31 PM Ordering Provider: FISH JORDAN Count Includes [facility] ([place]) LABORATORYOrdered By: Jasmyne Foster on 07-07-2022 LDose [...] developed and its performance characteristics determined by [facility] [place] ([facility] It has not been cleared or approved by the FDA. [facility] is regulated under CLIA as qualified to perform high-complexity testing. This test is used for clinical purposes. It should not be regarded as investigational or for research. Performed By: [facility] [address] [place] [address] Product Introduction Manager: Rigoberto Burgos III, M.D. CLIA#: [id number] LABORATORYOrdered By: SYSTEM SYSTEM on 05-08-2022 Cobalamin (Vitamin B12) [Mass/Vol] 790 pg/mL Invalid Interpretation Code 211 - 911 pg/mL ADM SS Folate [Mass/Vol] 15.85 ng/mL Invalid [...] Routine cultures are held for 5 days. [facility] LABORATORYOrdered By: Cristiane Hunter on 02-12-2022 Albumin [...] Date Time Vital Sign Value Performing Clinician Faci lity 08-13-2023 10:40-0400 Heart rate 88 /min JAMEY LEONARD MD [address] [place] [address] 08-13-2023 10:40-0400 Respiratory rate 18 /min JAMEY LEONARD MD [address] [place] [address] 08-13-2023 06:35-0400 Body temperature 98.24 [degF] JAMEY LEONARD MD [address] [place] [address] 08-13-2023 06:35-0400 Diastolic Blood Pressure Non-Invasive 76 mm[Hg] JAMEY LEONARD MD [address] [place] [address] 08-13-2023 06:35-0400 Heart rate 80 /min JAMEY LEONARD MD [address] [place] [address] 08-13-2023 06:35-0400 Respiratory rate 16 /min JAMEY LEONARD MD [address] [place] [address] 08-13-2023 06:35-0400 Systolic Blood Pressure Non-Invasive 129 mm[Hg] JAMEY LEONARD MD [address] [place] [address] 08-13-2023 06:34-0400 Heart rate 82 /min JAMEY LEONARD MD [address] [place] [address] 08-13-2023 06:34-0400 Respiratory rate 17 /min JAMEY LEONARD MD [address] [place] [address] 08-12-2023 22:46-0400 Body temperature 97.7 [degF] JAMEY LEONARD MD [address] [place] [address] 08-12-2023 22:46-0400 Diastolic Blood Pressure Non-Invasive 66 mm[Hg] JAMEY LEONARD MD [address] [place] [address] 08-12-2023 22:46-0400 Reason For Taking VItal Signs JAMEY LEONARD MD [address] [place] [address] 08-12-2023 22:46-0400 Systolic Blood Pressure Non-Invasive 113 mm[Hg] JAMEY LEONARD MD [facility] 08-12-2023 16:18-0400 Blood Pressure Cuff Size JAMEY LEONARD MD [address] [place] [address] 08-12-2023 16:18-0400 Blood Pressure Location JAMEY LEONARD MD [address] [place] [address] 08-12-2023 16:18-0400 Blood Pressure Method JAMEY LEONARD MD [address] [place] [address] 08-12-2023 16:18-0400 Body temperature 98.06 [degF] JAMEY LEONARD MD [address] [place] [address] 08-12-2023 16:18-0400 Diastolic Blood Pressure Non-Invasive 82 mm[Hg] JAMEY LEONARD MD [address] [place] [address] 08-12-2023 16:18-0400 Reason For Taking VItal Signs JAMEY LEONARD MD [address] [place] [address] 08-12-2023 16:18-0400 Systolic Blood Pressure Non-Invasive 132 mm[Hg] JAMEY LEONARD MD [address] [place] [address] 08-12-2023 08:41-0400 Reason For Taking VItal Signs JAMEY LEONARD MD [address] [place] [address] 08-12-2023 06:46-0400 Blood Pressure Cuff Size JAMEY LEONARD MD [address] [place] [address] 08-12-2023 06:46-0400 Blood Pressure Location JAMEY LEONRAD MD [address] [place] [address] 08-12-2023 06:46-0400 Blood Pressure Method JAMEY LEONARD MD [address] [place] [address] 08-11-2023 14:55-0400 Blood Pressure Cuff Size JAMEY LEONARD MD [address] [place] [address] 08-11-2023 14:55-0400 Blood Pressure Location JAMEY LEONARD MD [address] [place] [address] 08-11-2023 14:55-0400 Blood Pressure Method JAMEY LEONARD MD [address] [place] [address] 08-10-2023 11:04-0400 Heart rate 84 /min JAMEY LEONARD MD [address] [place] [address] 08-10-2023 07:16-0400 Heart rate 89 /min JAMEY LEONARD MD [address] [place] [address] 08-10-2023 03:44-0400 Heart rate 79 /min JAMEY LEONARD MD [address] [place] [address] 08-09-2023 10:50-0400 Mean blood pressure 91 mm[Hg] JAMEY LEONARD MD [address] [place] [address] 08-09-2023 10:35-0400 Mean blood pressure 93 mm[Hg] JAMEY LEONARD MD [address] [place] [address] 08-09-2023 10:20-0400 Body temperature 96.8 [degF] JAMEY LEONARD MD [address] [place] [address] 08-09-2023 10:20-0400 Mean blood pressure 91 mm[Hg] JAMEY LEONARD MD [address] 08-08-2023 08:05-0400 Heart rate 84 /min JAMEY LEONARD MD [address] [place] [address] 08-08-2023 04:28-0400 Body temperature 98.06 [degF] JAMEY LEONARD MD [address] [place] [address] 08-08-2023 04:28-0400 Heart rate 72 /min JAMEY LEONARD MD [address] [place] [address] 08-07-2023 15:21-0400 Body temperature 99.14 [degF] JAMEY LEONARD MD [address] [place] [address] 08-07-2023 10:00-0400 Body temperature 98.78 [degF] JAMEY LEONARD MD [facility] 08-05-2023 13:40-0400 Body height 160 cm JAMEY LEONARD MD [facility] 08-05-2023 13:40-0400 Body weight 76.6 kg JAMEY LEONARD MD [facility] 08-05-2023 13:40-0400 Body weight 29.92 kg/m2 JAMEY LEONARD MD [facility] 08-04-2023 20:54-0400 Diastolic Blood Pressure Non-Invasive 65 mm[Hg] AIDEN FROMMELT DO [facility] 08-04-2023 20:54-0400 Heart rate 96 /min AIDEN FROMMELT DO [facility] 08-04-2023 20:54-0400 Respiratory rate 20 /min AIDEN FROMMELT DO [facility] 08-04-2023 20:54-0400 Systolic Blood Pressure Non-Invasive 121 mm[Hg] AIDEN FROMMELT DO [facility] 08-04-2023 19:10-0400 Diastolic Blood Pressure Non-Invasive 56 mm[Hg] AIDEN FROMMELT DO [facility] 08-04-2023 19:10-0400 Heart rate 101 /min AIDEN FROMMELT DO [facility] 08-04-2023 19:10-0400 Respiratory rate 20 /min AIDEN FROMMELT DO [facility] 08-04-2023 19:10-0400 Systolic Blood Pressure Non-Invasive 124 mm[Hg] AIDEN FROMMELT DO [facility] 08-04-2023 18:03-0400 Diastolic Blood Pressure Non-Invasive 61 mm[Hg] AIDEN BELTRANT [employer] [facility] 08-04-2023 18:03-0400 Heart rate 108 /min AIDEN BELTRANBill the Butcher [facility] 08-04-2023 18:03-0400 Systolic Blood Pressure Non-Invasive 124 mm[Hg] AIDEN BELTRANT [employer] [facility] 08-04-2023 15:57-0400 Mean blood pressure 78 mm[Hg] AIDEN BELTRANBill the Butcher [facility] 08-04-2023 15:57-0400 Reason For Taking VItal Signs AIDEN BELTRANMarketGid [facility] 08-04-2023 15:57-0400 Respiratory rate 20 /min AIDEN BELTRANBill the Butcher [facility] 08-04-2023 13:17-0400 Body height 160 cm AIDEN BELTRANBill the [employer]cher [facility] 08-04-2023 13:17-0400 Body temperature 97.88 [degF] AIDEN BELTRANBill the Butcher [facility] 08-04-2023 13:17-0400 Body weight 76 kg AIDEN BELTRANBill the [employer]cher [facility] 08-02-2023 11:51-0400 Blood Pressure Location FISH JORDAN [employer] [facility] 08-02-2023 11:51-0400 Blood Pressure Method FISH JORDAN [employer] [facility] 08-02-2023 11:51-0400 Body temperature 98.96 [degF] FISH JORDAN [employer] [facility] 08-02-2023 11:51-0400 Diastolic Blood Pressure Non-Invasive 85 mm[Hg] FISH JORDAN [employer] [facility] 08-02-2023 11:51-0400 Heart rate 90 /min FISH JORDAN [employer] [facility] 08-02-2023 11:51-0400 Respiratory rate 18 /min FISH JORDAN [employer] [facility] 08-02-2023 11:51-0400 Systolic Blood Pressure Non-Invasive 112 mm[Hg] FISH JORDAN [employer] [facility] 02-24-2022 13:35-0500 Diastolic Blood Pressure Non-Invasive [address] KYLE TELLO MD [facility] 02-24-2022 13:35-0500 Heart rate 76 /min DR KYLE TELLO MD [facility] 02-24-2022 13:35-0500 Respiratory rate 16 /min DR KYLE TELLO MD [facility] 02-24-2022 13:35-0500 Systolic Blood Pressure Non-Invasive [address] KYLE TELLO MD [facility] 02-24-2022 11:14-0500 Diastolic Blood Pressure Non-Invasive [address] KYLE TELLO MD [facility] 02-24-2022 11:14-0500 Heart rate 78 /min DR KYLE TELLO MD [facility] 02-24-2022 11:14-0500 Respiratory rate 16 /min DR KYLE TELLO MD [facility] 02-24-2022 11:14-0500 Systolic Blood Pressure Non-Invasive [address] KYLE TELLO MD [facility] 02-24-2022 09:36-0500 Body temperature 98.06 [degF] DR KYLE TELLO MD [facility] 02-24-2022 09:36-0500 Diastolic Blood Pressure Non-Invasive [address] KYLE TELLO MD [facility] 02-24-2022 09:36-0500 Heart rate 87 /min DR KYLE TELLO MD [facility] 02-24-2022 09:36-0500 Respiratory rate 18 /min DR KYLE TELLO MD [facility] 02-24-2022 09:36-0500 Systolic Blood Pressure Non-Invasive [address] KYLE TELLO MD [facility] 03-18-2021 20:06-0500 Diastolic blood pressure 72 mm[Hg] DR BUCK BURDICK MD [facility] 03-18-2021 20:06-0500 Heart rate 93 /min DR BUCK BURDICK MD [facility] 03-18-2021 20:06-0500 Respiratory rate 20 /min DR BUCK BURDICK MD [facility] 03-18-2021 20:06-0500 Systolic blood pressure 120 mm[Hg] DR BUCK BURDICK MD [facility] 03-18-2021 17:35-0500 Diastolic blood pressure 82 mm[Hg] DR BUCK BURDICK MD [facility] 03-18-2021 17:35-0500 Heart rate 94 /min DR BUCK BURDICK MD [facility] 03-18-2021 17:35-0500 Reason For Taking VItal Signs DR BUCK BURDICK MD [facility] 03-18-2021 17:35-0500 Respiratory rate 20 /min DR BUCK BURDICK MD [facility] 03-18-2021 17:35-0500 Systolic blood pressure 122 mm[Hg] DR BUCK BURDICK MD [facility] 03-18-2021 15:55-0500 Diastolic blood pressure 76 mm[Hg] DR BUCK BURDICK MD [facility] 03-18-2021 15:55-0500 Heart rate 98 /min DR BUCK BURDICK MD [facility] 03-18-2021 15:55-0500 Respiratory rate 18 /min DR BUCK BURDICK MD [facility] 03-18-2021 15:55-0500 Systolic blood pressure 144 mm[Hg] DR BUCK BURDICK MD [facility] 03-18-2021 15:09-0500 Body temperature 98.24 [degF] DR BUCK BURDICK MD [facility] 03-18-2021 15:09-0500 Heart rate 115 /min DR BUCK BURDICK MD [facility] Encounters Encounter Date Encounter Type Care Provider Facility Start: 10-13-2024 ambulatory Aiden Lancaster ty:[facility] Start: 10-09-2024 ambulatory Aiden Lancaster ty:[facility] Start: 10-01-2024 ambulatory Aiden Lancaster ty:[facility] Start: 08-18-2024 End: 08-18-2024 ambulatory Elisa Maldonado MD [facility] Work Phone: Start: 08-18-2024 End: 08-18-2024 Departed Referred Elisa Amezquita r Start: 08-18-2024 End: 08-18-2024 ambulatory Elisa STANFORD Facility:[facility] Start: 07-20-2024 End: 07-20-[address] Aiden Wolfe DO Work Phone: [facility] Work Phone: Start: 07-20-2024 End: 07-20-2024 Departed Referred Elisa Amezquita r Start: 07-20-2024 End: 07-20-2024 ambulatory Elisa STANFORD Facility:[facility] Start: 06-22-2024 End: 06-22-[address] Aiden Wolfe DO Work Phone: [facility] Work Phone: Start: 06-22-2024 End: 06-22-2024 Departed Referred Elisa Mosse r Start: 06-22-2024 End: 06-22-2024 ambulatory Elisa STANFORD Facility:[facility] Start: 05-21-2024 ambulatory Elisa STANFORD Facil ity:[facility] Start: 05-21-2024 Registered Referred Elisa Maldonado MD [facility] Start: 04-20-2024 ambulatory Elisa Justo Joel OLS Facil ity:[facility] Start: 04-20-2024 Registered Referred Elisa Maldonado MD [facility] Start: 03-05-2024 End: 03-05-2024 ambulatory Elisa Maldonado OLS Facility:[facility] Start: 02-19-2024 End: 02-19-2024 ambulatory Elisa Kemp Maldonado OLS Facility:[facility] Start: 02-05-2024 ambulatory FISH JORDAN Facili ty:[facility] Start: 01-20-2024 ambulatory Elisa Maldonado OLS Facil ity:[facility] Start: 01-02-2024 ambulatory Aiden Wolfe Facili ty:[facility] Start: 12-20-2023 ambulatory Aiden Wolfe Facili ty:[facility] Start: 11-19-2023 End: 11-19-2023 ambulatory Aiden Wolfe Facility:[facility] Start: 09-16-2023 End: 09-16-2023 ambulatory FISH JORDAN [employer] Facility:[facility] Start: 09-16-2023 End: 09-16-2023 Patient encounter procedure MARJ DEAN MD [facility] Start: 08-04-2023 End: 08-13-2023 Evaluation and management of inpatient JAMEY LEONARD MD [facility] Start: 08-04-2023 End: 08-04-2023 Emergency department patient visit AIDEN ALMA [facility] Start: 08-02-2023 End: 08-02-2023 SAME DAY STAY FISH JORDAN [employer] [facility] Start: 08-02-2023 End: 08-02-2023 ambulatory FISH JORDAN [employer] Facility:[facility] Start: 08-02-2023 End: 08-02-2023 Patient encounter procedure FISH POTTERPKINS [employer] [facility] Start: 06-20-2023 End: 06-24-2023 ambulatory FISH POTTERPKINS [employer] Facility:[facility] Start: 06-20-2023 End: 06-24-2023 Outreach Lab FISH POTTERPKINS [employer] [facility] Start: 06-13-2023 End: 06-17-2023 ambulatory FISH POTTERPKINS [employer] Facility:[facility] Start: 06-13-2023 End: 06-17-2023 Outreach Lab FISH POTTERPKINS [employer] [facility] Start: 01-07-2023 End: 01-07-2023 ambulatory FISH POTTERPKINS [employer] Facility:[facility] Start: 12-24-2022 End: 12-24-2022 ambulatory FISH POTTERPKINS [employer] Facility:[facility] Start: 12-24-2022 End: 12-24-[address] ELISA GAMBLE MD [facility] Start: 12-13-2022 End: 12-17-2022 ambulatory FISH POTTERPKINS [employer] Facility:[facility] Start: 12-13-2022 End: 12-17-2022 Outreach Lab FISH POTTERPKINS [employer] [facility] Start: 09-28-2022 End: 09-28-2022 ambulatory FISH Erika NIKKI [employer] Facility:[facility] Start: 09-28-2022 End: 09-28-2022 Patient encounter procedure FISH POTTERPKINS [employer] [facility] Start: 07-07-2022 End: 07-07-2022 Patient encounter procedure NANCIE Guero ALYSON DO [facility] Start: 06-07-2022 End: 06-11-2022 Outreach Lab FISH JORDAN [employer] [facility] Start: 05-08-2022 End: 05-08-2022 Patient encounter procedure MEKA KWON [facility] Start: 04-11-2022 End: 04-11-2022 Patient encounter procedure FISH JORDAN [employer] [facility] Start: 03-21-2022 End: 03-21-2022 Patient encounter procedure FISH JORDAN [employer] [facility] Start: 03-01-2022 End: 03-01-2022 Patient encounter procedure FISH JORDAN [employer] [facility] Start: 02-24-2022 End: 02-24-2022 Emergency department patient visit DR KYLE ETLLO MD [facility] Start: 02-12-2022 End: 02-12-2022 Patient encounter procedure NANCIE Jack ALYSON DO [facility] Start: 12-12-2021 End: 12-12-[address] ELISA GAMBLE MD [facility] Start: 03-18-2021 End: 03-18-2021 Emergency department patient visit DR BUCK BURDICK MD [facility] Procedures Date Procedure Procedure Detail Performing Clinician [...] (>250 nmol/L) Start: 12-24-2022 Echocardiography FILIBERTO JORDAN [employer] Comment on above: 1. Left ventricle: T [...] ) mRNA-[address] ELISA GAMBLE MD [facility] 05-26-2020 SARS-CoV-2 (COVID-19 ) mRNA-[address] ELISA GAMBLE MD [facility] 02-07-2017 influenza virus vaccine, unspecified formulation DR ELISA GAMBLE MD [facility] 01-31-2016 influenza virus vaccine, unspecified formulation DR ELISA GAMBLE MD [facility] 01-31-2016 influenza, injectabl e, quadrivalent, preservative free Dr. Aiden Wolfe DO Work Phone: [facility] Payers Date Payer Category Payer Unknown [id number] 2023 Self-pay 2023 Unknown [id number] 2016 Medicaid [id number] 1987 Medicare [id number] 1955 Unknown [id number] 2.16.8 40.1.172356.3.579.2.627 1955 Unknown [id number] 2.16.8 40.1.178630.3.579.2. 1955 Unknown [id number] 2.16.8 40.1.821832.3.579.2.627 1956 Unknown [id number] 2.16.8 40.1.797281.3.579.2.62 1956 Unknown [id number] 2.16.8 40.1.403573.3.579.2.62 1956 Unknown [id number] 2.16.8 40.1.889775.3.579.2. 1956 Unknown [id number] 2.16.8 40.1.643461.3.579.2.62 1956 Unknown [id number] 2.16.8 40.1.864074.3.579.2. 1956 Unknown [id number] 2.16.8 40.1.225396.3.579.2. 1956 Unknown [id number] 2.16.8 40.1.735163.3.579.2. 1956 Unknown [id number] 2.16.8 40.1.944454.3.579.2. 1956 Unknown [id number] 2.16.8 40.1.272110.3.579.2. 1956 Unknown [id number] 2.16.8 40.1.815066.3.579.2. 1955 Unknown [id number] 2.16.8 40.1.223863.3.579.2.627 Unknown [id number] 2.16.8 40.1.441702.3.579.2.462 Unknown [id number] 2.16.8 40.1.844833.3.579.2.462 Unknown [id number] 2.16.8 40.1.192134.3.579.2.462 Unknown [id number] 2.16.8 40.1.895698.3.579.2.462 Unknown [id number] 2.16.8 40.1.750611.3.579.2.462 Unknown [id number] 2.16.8 40.1.972660.3.579.2.462 Unknown [id number] 2.16.8 40.1.458314.3.579.2.462 Unknown [id number] 2.16.8 40.1.691311.3.579.2.462 Unknown [id number] 2.16.8 40.1.934978.3.579.2.462 Unknown [id number] 2.16.8 40.1.761072.3.579.2.462 Unknown [id number] 2.16.8 40.1.300793.3.579.2.462 Unknown [id number] 2.16.8 40.1.976260.3.579.2.462 Unknown [id number] 2.16.8 40.1.813842.3.579.2.462 Unknown [id number] 2.16.8 40.1.079029.3.579.2.462 Social History Date Type Detail Facility Start: 01-31-2016 End: 05-12-2019 Never smoked tobacco (finding) [facility] Start: 1955 Sex Assigned At Female A [facility] Start: 01-31-2016 None None [facility] Start: 01-31-2016 With Family With Family [facility] Start: 07-15-2024 End: 07-20-2024 Sex Female (finding) [facility] Functional Status Date Assessment Result Facility 08-13-2023 Functional Status Repositions self [facility] 08-13-2023 Functional Status [facility] 08-13-2023 Functional Status [facility] 08-13-2023 Functional Status Identified as high risk, Bed alert on, Non-Slip footwear, Room check performed [facility] 08-13-2023 Functional Status [facility] 08-12-2023 Functional Status [facility] 08-12-2023 Functional Status Done [facility] 08-12-2023 Functional Status Supervised [facility] 08-12-2023 Functional Status [facility] 08-12-2023 Functional Status [facility] 08-12-2023 Functional Status bilateral knee high rem jaida/off [facility] 08-11-2023 Functional Status [facility] 08-11-2023 Functional Status [facility] 08-11-2023 Functional Status [facility] 08-11-2023 Functional Status [facility] 08-11-2023 [facility] Status [facility] 08-10-2023 Functional Status [facility] 08-10-2023 Functional Status Lunch Percent 0 [facility] 08-10-2023 Functional Status [facility]-10[facility]23 [facility]-09[facility]23 Functional Status [facility] 08-09-2023 Functional Status [facility] 08-09-2023 Functional Status unable to acqu miri home MOREIRA/baseline d/t extensive expressive aphasia, attempted to call POA/sister, unable to get a hold of, social work does not have any further information [facility] 08-09-2023 Functional Status Patient Identi fied Identification band [facility] 08-09-2023 Functional Status Maintained [facility] 08-09-2023 Functional Status [facility] 08-08-2023 Functional Status [facility] 08-08-2023 Functional Status [facility] 08-08-2023 [facility] Functional Status Special Call D evice Unable to use call device [facility] 08-08-2023 Functional Status Assistive Equi pment elevated on pillows [facility] 08-07-2023 Functional Status [facility] 08-07-2023 Functional Status [facility] 08-07-2023 Functional Status [facility]-06[facility]23 [facility] 08-05-2023 Functional Status Sensory Deficits None A [facility] 08-05-2023 Functional Status No Living Envi ronment Information Available [facility] 08-05-2023 Functional Status [facility] 08-04-2023 Functional Status Room check performed [facility] 02-24-2022 Functional Status Standard Safet y ID band on, Call device within reach, Bed in low position, Wheels locked, Upper/Half-Length side-rails up, Phone within reach, personal items within reach, Assistive devices within reach, Toileting device within reach, Bedside Cart Locked, Visitor at bedside, Safety level maintained [facility] Mental Status Date Assessment Result Facility 08-13-2023 Mental Status Not oriented to place, Not oriented to time, Not oriented to situation [facility] 08-12-2023 Mental Status [facility] 08-04-2023 Mental Status Orientation Other: [facility] 02-24-2022 Mental Status Orientation Disoriented x 4 1 [facility] Clinical Notes 03-18-2021 to 08-13-2023 Note Date [...] hypertension, hyperlipidemia and obesity. Patient presented to [facility] as a transfer from [facility] emergency department on 08/04/2023 with concerns for [...] patient was actually stable for discharge to [facility] care of mariama Patterson on 08/12/2023. The patient's TEREZA Diggs called in requesting a change of facility. The patient stayed overnight in the hospital due to facility change. No acute events noted overnight. Vital signs are hemodynamically stable. Mentation improving each day. Patient was alert to self, location and family. Patient is stable for discharge to [facility] SNF. Sister updated on plan. Case [...] 08/04/23 Discharge Date 08/13/23 Medications New Prescription [id number] Milligram by mouth every six (6) hours [...] Follow Up [facility] When Within 1-2 days Why: follow up wtihin 2 weeks Where: [address] [place] [address]- Business (1) Follow Up with FISH JORDAN APRN - CAUSTIC LOADER When Within 1-2 days Why: Please call the office to schedule a follow-up appointment Where: [address] [facility] [place] [address]- Follow Up Appointments Transfer of Care OT [...] -- Type of Diet: Soft and Bite Swfwx-GSTXF-7, Thin (Thinned)-IDDSI-0, 08/12/23 10:51:00 EDT Discharge Activity Transfer of Care Activity - Ordered -- As instructed by therapy, 08/12/23 10:51:00 EDT Condition on Discharge Stable Discharge Disposition SNF Information Provided To Patient Sister Time Spent 32 minutes Digitally Signed by ADEBAYO MARTINEZ on 08/13/2023 10:03 AM Digitally Signed by LENNY PARK DO on 08/13/2023 10:17 AM [facility] 08-13-2023 Note Discharge Instructions Thank you for allowing [place] to assist you with your healthcare needs. The following is important discharge information regarding your hospital visit. Your Care Team FISH JORDAN APRN, CNP Your Diagnosis Developmentally disabled HTN (hypertension) Hyperlipidemia LDL goal <100 Seasonal asthma Seizure What to do next Scheduled Follow-Up Appointments Appointment Type When With Where Contact InformationPC Nurse Lab 12/12/2023 08:00 AM EDT [facility] OV 12/23/2023 07:00 AM EDT FISH JORDAN APRN, CNP [facility] Follow Up Appointments Follow Up with [facility] When Within 1-2 days [facility] When Within 1-2 days Why: follow up wtihin 2 weeks Where: [address] [place] [address]- Business (1) Follow Up with FISH JORDAN [employer]DER - CAUSTIC LOADER When Within 1-2 days Why: Please call the office to schedule a follow-up appointment Where: [address] [facility] [place] [address]- The Following Activity and Diet Have Been Ordered for You Transfer of Care Activity - Ordered -- As instructed by therapy, 08/12/23 10:51:00 EDT Transfer of Care Diet - Ordered -- Type of Diet: Soft and Bite Nznul-XZFVJ-6, Thin (Thinned)-IDDSI-0, 08/12/23 10:51:00 EDT The Following Equipment Has Been Ordered for You No qualifying data available. The Following Treatments Have Been Ordered for You Discharge Labs Transfer of Care Labwork - Ordered -- Valporic Acid level, monitor while on Valporic acid, follow-up within: 5-7 days, Results Notify to: FISH JORDAN BOWLING BALL MOLDER - CAUSTIC LOADER, 08/12/23 10:51:00 EDT Discharge Radiology No qualifying [...] Results Notify to: FISH JORDAN APRN - CAUSTIC LOADER, 08/12/23 10:51:00 EDT Transfer of Care Orders [...] Follow these instructions at home: Medicines Take qvyi-nfw-avtamaz and prescription medicines only as told by [...] check with your local DMV (department of [place]) to find out about local driving laws. [...] medicines are used to treat seizures. Take mfsh-orm-hpgjzsc and prescription medicines only as told by your health care provider. This information is not intended to replace advice given to you by your health care provider. Make sure you discuss any questions you have with your health care provider. Document Released: 03/29/2001 Document Revised: 06/19/2019 Document Reviewed: 06/19/2019 Elsevier Patient Education 2019 [employer] Additional Information VACCINATE! IT SAVES LIVES! Members of the community who have not yet received the COVID-19 vaccine and would like to receive it can visit one of [facility] vaccine clinics. There are many vaccine clinic locations within the [facility]. For locations and available times, please visit https://gettheshot.coronavirus.[place].gov/. It is important to note that some COVID mobile vaccine clinics are held outdoors and may be canceled in rainy or stormy conditions. To learn more about pediatric vaccinations (ages 5-11), we invite you to visit the [employer] webpage. https://www.IM5s.org/pag es/1468-Derxr-Asitsfcestn-Frequent kc-Uiffz-Esheoxtsn.html To learn more about the COVID-19 vaccine, we invite you to visit the CDC website for a list of frequently asked questions.https://www.cdc.gov/fabiola navirus/2019-ncov/vaccines/faq.htm l [employer] Patient Portal Access Instructions: Stay connected with your healthcare team and access your personal medical information anytime with the [employer] Patient Portal. Please follow the directions below to create your [employer] account: 1.Access the email account you provided upon registration to the hospital/physician office.2.Look for an invitation email from [facility].3.Open the email and access the invitation link: Accept Invitation to [employer].4.Fill in the required spicer to create your account. To access your account, visit [email or web address]. Click the blue button labeled "Access Patient [...] you will allow to register on the [facility] for access to your information. You can also access the [facility] Patient Portal on the [place] [facility] amaury. Simply click on "Patient Portal" and then log into your account. If you would like to receive a full copy of your medical records, please contact the [facility] Medical Records Department by calling [phone], Saturday through Saturday between 8 a.m. and [...] Call your local pharmacy or go to [email or web address] to find one close to you.3.Make use of household items: Use cat litter or old coffee grounds to dispose medications if other options are not available. Mix your drugs with these household products, seal them in an airtight container and throw it into the garbage. Call [facility]: [phone] to be sure your drugs can be [...] aware that I should contact my doctor. 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 Breakthrough seizure 2. Acute encephalopathy 3. Hyponatremia 4. Developmental delay 5. Asthma without exacerbation 6. Other history of HTN, HLD, obesity Additional Orders: Ordered: Discharge,08/13/23 10:00:00 EDT, Discharged to: [facility] Hospital Course 67-year-old female with past medical history of epilepsy, developmental delay, hypertension, hyperlipidemia and obesity. Patient presented to [facility] as a transfer from [facility] emergency department on 08/04/2023 with concerns for [...] family. Patient is stable for discharge to [facility]. Sister updated on plan. Case [...] 08/04/23 Discharge Date 08/13/23 Medications New Prescription [id number] Milligram by mouth every six (6) hours [...] Refills: 1. [facility] When Within 1-2 days Why: follow up wtihin 2 weeks Where: [address] [place] [address]- Business (1) Follow Up with FISH JORDAN APRN, CNP When Within 1-2 days Why: Please call the office to schedule a follow-up appointment Where: [address] [facility] [place] [address]- Follow Up Appointments Transfer of Care OT [...] -- Type of Diet: Soft and Bite Tjjuw-FLEJS-8, Thin (Thinned)-IDDSI-0, 08/12/23 10:51:00 EDT Discharge Activity Transfer of Care Activity - Ordered -- As instructed by therapy, 08/12/23 10:51:00 EDT Condition on Discharge Stable Discharge Disposition SNF Information Provided To Patient Sister Time Spent 32 minutes Digitally Signed by ADEBAYO MARTINEZ on 08/13/2023 10:03 AM Digitally Signed by LENNY PARK DO on 08/13/2023 10:17 AM [facility] 08-13-2023 Hospital Discharge instructions Patient Education 08/13/2023 [...] Follow these instructions at home: Medicines Take cwow-mao-opmghar and prescription medicines only as told by [...] check with your local DMV (department of [place]) to find out about local driving laws. [...] medicines are used to treat seizures. Take ezni-hfi-woalnjs and prescription medicines only as told by your health care provider. This information is not intended to replace advice given to you by your health care provider. Make sure you discuss any questions you have with your health care provider. Document Released: 03/29/2001 Document Revised: 06/19/2019 Document Reviewed: 06/19/2019 [employer] Patient Education 2020 [employer]. Follow Up Care 08/04/2023 16:56:26 With:[facility] Address:Unknown When:1-2 days With:[facility] Address: [address] [place] [address]- Business (1) When:1-2 days Comments:follow up wtihin 2 weeks With:FISH JORDAN BOWLING BALL MOLDER - CAUSTIC LOADER Address: [address] [facility] [place] [address]- When:1-2 days Comments:Please call the office to schedule a follow-up appointment [facility] 08-12-2023 Discharge summary Date of Service 08/12/23 [...] Care Diet,Type of Diet: Soft and Bite Hiycz-MVNOT-3, Thin (Thinned)-IDDSI-0, 08/12/23 10:51:00 EDT Ordered: Transfer of Care Labwork,Valporic Acid level, monitor while on Valporic acid, follow-up within: 5-7 days, Results Notify to: FISH JORDAN APRN - CAUSTIC LOADER, 08/12/23 10:51:00 EDT Ordered: Transfer of Care [...] hypertension, hyperlipidemia and obesity. Patient presented to [facility] as a transfer from [facility] emergency department on 08/04/2023 with concerns for [...] 08/04/23 Discharge Date 08/12/23 Medications New Prescription [id number] Milligram by mouth every six (6) hours [...] Why: follow up wtihin 2 weeks Where: [address] [place] [address]- Business (1) Follow Up with FISH JORDAN APRN - [facility] When Within 1-2 days Why: Please call the office to schedule a follow-up appointment Where: [address] [facility] [place] [address]- Follow Up Appointments Transfer of Care OT [...] -- Type of Diet: Soft and Bite Wanim-SYVJO-2, Thin (Thinned)-IDDSI-0, 08/12/23 10:51:00 EDT Discharge Activity Transfer of Care Activity - Ordered -- As instructed by therapy, 08/12/23 10:51:00 EDT Condition on Discharge Stable Discharge Disposition SNF Information Provided To Patient VM left for TEREZA Diggs Time Spent 32 minutes Digitally Signed by ADEBAYO MARTINEZ on 08/12/2023 10:57 AM Digitally Signed by MANDA BENSON MD [facility] 08-11-2023 Note . MICRO - Microbiology PROCEDURE: [...] Locations *1: This test was performed at: [facility], [address] [place] [address], [id number] , [facility] ([place]) 08-11-2023 Note . MICRO - Microbiology PROCEDURE: [...] Locations *1: This test was performed at: [facility], [address] [place] [address], [facility] , [facility] ([place]) 08-11-2023 Note Date of Service 08/11/23 Chief Complaint mentation improving Subjective 67-year-old female with past medical history of epilepsy, developmental delay, hypertension, hyperlipidemia and obesity. Patient presented to [facility] as a transfer from [facility] emergency department on 08/04/2023 with concerns for [...] for dysphagia. PT/OT [facility] SN[facility] Patient seen today. Mentation improving. She [...] DVT prophylaxis PT/OT recommending SNF, planning for [facility] Plan discussed with patient. Jorge STARKS updated on plan of care Case discussed with Dr. Benson Digitally Signed by ADEBAYO MARTINEZ on 08/11/2023 11:37 AM [facility] 08-11-2023 Respiratory therapy Hospital Progress note Respiratory [...] Joanie Garcia RT on 08/11/2023 10:46 AM [facility] 08-10-2023 Note Date of Service 08/10/2023 Chief Complaint AMS Subjective 67-year-old female with past medical history of epilepsy, developmental delay, hypertension, hyperlipidemia and obesity. Patient presented to [facility] as a transfer from [facility] emergency department on 08/04/2023 with concerns for [...] for dysphagia. PT/OT recommending SNF, planning for [facility]. Patient seen today. She was alert [...] by ADEBAYO MARTINEZ on 08/10/2023 02:16 PM [facility] 08-10-2023 Neurology Progress note Date of Service [...] GUTIERREZ PENA MD on 08/10/2023 02:51 PM [facility] 08-09-2023 Note Date of Service 08/09/23 Chief Complaint confusion Subjective 67-year-old female with past medical history of epilepsy, developmental delay, hypertension, hyperlipidemia and obesity. Patient presented to [facility] as a transfer from [facility] emergency department on 08/04/2023 with concerns for [...] by ADEBAYO MARTINEZ on 08/09/2023 01:55 PM [facility] 08-09-2023 Neurology Progress note Date of Service [...] also recommended that she be transferred to [facility] for an EEG to exclude nonconvulsive status [...] by PUJA GUSMAN on 08/09/2023 02:48 PM [facility] 08-09-2023 Note Date of Service 08/09/23 Chief Complaint confusion Subjective 67-year-old female with past medical history of epilepsy, developmental delay, hypertension, hyperlipidemia and obesity. Patient presented to [facility] as a transfer from [facility] emergency department on 08/04/2023 with concerns for [...] by ADEBAYO MARTINEZ on 08/09/2023 01:55 PM [facility] 08-09-2023 Anesthesiology Consult note Patient: NAI HERNANDEZ [...] CHARLY NAVA MD on 08/09/2023 11:46 AM [facility] 08-09-2023 Note ORIGINAL HISTORY: TIA COMPARISON: Head [...] Sign Date: 08/09/2023 11:01:30 AM Ordering Provider: [facility] 08-09-2023 Anesthesiology Consult note Patient: NAI [...] Medical High serum renin / SNOMED CT 706303063 / Confirmed Adrenal mass, left / SNOMED CT 149667135 / Confirmed Anemia / SNOMED CT 871155577 / Confirmed Anemia due to chronic kidney disease / SNOMED CT 6110769846 / Confirmed Atonic seizure / SNOMED CT 366338674 / Confirmed CKD (chronic kidney disease), stage III / SNOMED CT 7111458958 / Confirmed Developmentally disabled / SNOMED CT 3335708868 / Confirmed Abnormal echocardiogram / SNOMED CT 717555679 / Confirmed Fracture of clavicle: right transverse fracture / SNOMED CT 32836898 / Confirmed Elevated glucose / SNOMED CT 7971384442 / Confirmed Hemorrhoids / SNOMED CT 573167174 / Confirmed HTN (hypertension) / SNOMED CT 3324PM5V-1531-8522-7540-PMW940BK39 20 / Confirmed Hyperlipidemia LDL goal <100 / SNOMED CT 22628951 / Confirmed Hyperlipidemia / SNOMED CT 80315306 / Confirmed IFG (impaired fasting glucose) / SNOMED CT 2786330173 / Confirmed Incontinence / SNOMED CT 15713663 / Confirmed Increased BMI (body mass index) / SNOMED CT 52708030 / Confirmed Mental disability / SNOMED CT 147590373 / Confirmed IBS (irritable bowel syndrome) / SNOMED CT 65041664 / Confirmed Leukocytosis / SNOMED CT 256980829 / Confirmed Non-smoker / SNOMED CT 52903946 / Confirmed Osteoporosis / SNOMED CT 541026756 / Confirmed Screening for cholesterol level / SNOMED CT 180307553 / Confirmed Screening mammogram, encounter for / SNOMED CT 096695313 / Confirmed Risk and functional assessment / SNOMED CT 773519023 / Confirmed Post-menopausal / SNOMED CT 597381505 / Confirmed Psoriasis / SNOMED CT 20904678 / Confirmed Renal mass, right / SNOMED CT 739410028 / Confirmed Seasonal allergies / SNOMED CT 4276498002 / Confirmed Seasonal asthma / SNOMED CT 7291170671 / Confirmed Seizure disorder / SNOMED CT 578541773 / Confirmed 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 Post-operative state (78868005): Resolved. Procedure history: Echocardiogram ([id number]) on 12/24/2022 at 67 Years. Comments: 02/06/2023 [...] atrium: The atrium is mildly dilated Echocardiogram ([id number]) on 12/12/2021 at 66 Years. Comments: 12/20/2021 [...] Tricuspid valve: There is trivial regurgitation. Echocardiogram ([id number]) on 12/20/2020 at 65 Years. Comments: 01/03/2021 13:38 EDT - Clarissa Caicedo MA (ABR-OE) EF 60-65% ORIF - Open reduction and internal fixation of fracture (423225107) on 04/23/2014 at 58 Years. Comments: 12/13/2015 8:51 [place] - MIKALA BUCIO right foot Oophorectomy (815279826) in 2001 at 46 Years. Lumpectomy of breast (0701444809). Comments: 04/20/2014 13:30 MIKALA ABBOTT Left Social History Social & Psychosocial Habits Alcohol 4Risk Assessment: Denies Alcohol Use 08/02/2023 Use: Never Substance Abuse 08/02/2023isk Assessment: Denies Substance Abuse 08/02/2023 Use: Never Tobacco 08/02/2023isk Assessment: Denies Tobacco Use 08/02/2023 Tobacco Use: Never (less than 100 in l Exposure to Tobacco Smoke Lives in non-smoking home Home/Environment 08/02/2023 Primary Radiation / Chemistry Technician: Self and sister Nutrition/Health 08/02/2023 Caffeine intake amount: none . Physical Examination General: No acute distress. Airway: Mallampati classification: III (soft palate, base of uvula visible). Head: Normocephalic. Dentition Evaluation: Intact, Own teeth, Denies loose/chipped teeth. Respiratory: Respirations are non-labored. Cardiovascular: Normal rate. Heart Sounds: Normal. Neurologic: Alert. Review / Management Documentation reviewed: Current records, Reviewed prior records. Assessment and Plan [place] [employer]esthesi[employer] (ASA) physical status classification: Class III. h/o seizures, CKD, anemia, htn, hld Anesthetic Preoperative Plan Anesthetic technique: General. Induction: intravenously. Maintenance airway: Oral endotracheal tube. Postoperative pain management: Per surgeon. Risks discussed: nausea, vomiting, headache, sore throat, dental injury, hypotension, allergic reaction, serious complications. Informed consent: signed by patient. Digitally Signed by JM LIU MD on 08/09/2023 11:21 AM [facility] 08-08-2023 Note SINUS RHYTHM Electronic Signature: PAVEL PAYAN MD 08/09/2023 11:38:30 [facility] 08-08-2023 Neurology Progress note Date of Service [...] also recommended that she be transferred to [facility] for an EEG to exclude nonconvulsive status [...] by PUJA GUSMAN on 08/08/2023 02:23 PM [facility] 08-07-2023 Note PROCEDURE TYPE: Routine inpatient EEG [...] GUTIERREZ PENA MD on 08/07/2023 03:13 PM [facility] 08-06-2023 Note ORIGINAL EXAMINATION: ONE XRAY VIEW [...] 08/06/2023 10:43:49 AM Ordering Provider: BRITT LOPEZ [facility] 08-05-2023 Neurology Consult note Date of Service [...] also recommended that she be transferred to [facility] for an EEG to exclude nonconvulsive status [...] 1250 mcg (50,000 intl units) oral capsule, 90990 International_Unit= 1 cap(s), Oral, qmonth, 4 refills [...] Use, 11/19/2017 Use: Never., 10/15/2018 Home/Environment Primary Radiation / Chemistry Technician: Self and sister., 05/12/2019 Nutrition/Health Caffeine intake [...] GUTIERREZ PENA MD on 08/05/2023 03:26 PM [facility] 08-05-2023 Note PROCEDURE TYPE: Routine inpatient EEG [...] GUTIERREZ PENA MD on 08/05/2023 02:41 PM [facility] 08-05-2023 Nurse Progress note mitt restraints discontinued in favor of soft limb wrist restraints during previous shift. Soft limb restraints alone used from 0700 until further documentation Digitally Signed by David Zamora RN on 08/05/2023 10:15 AM [facility] 08-04-2023 History and physical note Date of Service 08/04/23 Chief Complaint Seizure History of Present Illness 67-year-old female with PMHx seizures, developmentally disabled, HTN, HLD, obesity presents to the hospital as a transfer from [place] ED for seizures. History is obtained by [...] Use, 11/19/2017 Use: Never., 10/15/2018 Home/Environment Primary Radiation / Chemistry Technician: Self and sister., 05/12/2019 Nutrition/Health Caffeine intake [...] JEANNE VAN MD on 08/05/2023 12:01 AM [facility] 08-04-2023 Note Abnormal inferior Q waves Baseline wander in lead(s) II,III,aVR,aVF Compared to ECG at 02/24/2022 10:25:35 BORDERLINE ECG Electronic Signature: AIDEN MARQUEZ DO 08/04/2023 15:37:41 [facility] 08-04-2023 Note ORIGINAL EXAMINATION: CTA OF THE [...] Date: 08/04/2023 3:24:32 PM [facility] Consult note Date of Service 08/04/2023 Reason for Consultation Consent: I discussed the risks and benefits of a telehealth visit and I obtained the patient s or legally authorized containers sales representative s informed verbal consent to conduct this assessment using telehealth tools with visual and audio. All of the patient s or legally authorized containers sales representative s questions regarding the telehealth interaction were addressed. I provided my name and disclosed to the patient or legally authorized containers sales representative my licensure, certification, or registration. This [...] and the consulting provider. Location of Patient: [facility] Emergency Department Physician Picking Table Worker: [ enter trauma surgeon stroke Providers name here ] Location and [...] 1250 mcg (50,000 intl units) oral capsule, 09774 International_Unit= 1 cap(s), Oral, qmonth, 4 refills [...] Use, 11/19/2017 Use: Never., 10/15/2018 Home/Environment Primary Radiation / Chemistry Technician: Self and sister., 05/12/2019 Nutrition/Health Caffeine intake [...] DOTTY HARPER MD on 08/04/2023 03:05 PM [facility] 08-04-2023 Note ORIGINAL EXAMINATION: ONE XRAY VIEW [...] 08/04/2023 3:19:38 PM Ordering Provider: AIDEN MARQUEZ [facility] 08-04-2023 Note ORIGINAL EXAMINATION: CTA OF THE [...] Date: 08/04/2023 3:33:32 PM Ordering Provider: AIDEN [facility] 08-04-2023 Evaluation + Plan note Extrac [...] Appointments Appointment Date:12/12/2023 08:00:00 AM Scheduled Provider: Location:[facility] Appointment Type:PC Nurse Lab Appointment Date:12/23/2023 07:00:00 AM Scheduled Provider:FISH JORDAN APRN - CAUSTIC LOADER Location:[facility] Appointment Type:PC OV Future Scheduled Tests Laboratory* Levetiracetam (Keppra), S 12/21/23 * A1C Hemoglobin 12/21/23 * Complete Blood Count 12/21/23 * Lipid Profile 12/21/23 * Albumin/Creatinine Ratio, Random Urine 12/21/23 * Microalbumin Level Urine 12/15/22 * PTH, Intact 12/21/23 * Vitamin D Level 12/21/23 * Valproic Acid Level 12/21/23 * Complete Metabolic Panel 12/21/23 [facility] 04-21-2024 Note ORIGINAL EXAMINATION: CT OF THE [...] Date: 08/04/2023 2:10:24 PM Ordering Provider: AIDEN [facility]09-11-2023 Note* Exam Date Time Procedure Performing Provider Status 12/24/22 9:19 AM Echocardiogram, Adult ([facility]) Auth (Verified) [facility] 11-17-2022 Note ORIGINAL EXAMINATION: MRI OF THE [...] Anthony Bautista MD Preliminary Report By: Nancie Ibaenz Electronically signed By Anthony Bautista MD Dictated Date: 03/01/2022 2:26:30 PM Prelim Date: 03/01/2022 5:17:53 PM Sign Date: 03/01/2022 5:17:53 PM Ordering Provider: FISH JORDAN [facility]11-17-2022 Note ORIGINAL EXAMINATION: MRI OF THE ABDOMEN [...] By: Nancie Ibanez Electronically signed By Anthony Bautitsa MD Dictated Date: 03/01/2022 2:26:30 PM Prelim Date: 03/01/2022 5:17:53 PM Sign Date: 03/01/2022 5:17:53 PM Ordering Provider: [facility]22 Hospital Discharge instructions Patient Education [...] sleep patterns Cause muscle strain Harm digestion [id number] The edo. [address] [place] [address]. All rights reserved. This information is not [...] loosen secretions in the nose and lungs. Rymn-men-evvirqe cold medicines will not shorten the length of time you re sick, but they may be helpful for the following symptoms: cough, sore throat, and nasal and sinus congestion. If you take prescription medicines, ask your healthcare provider or pharmacist which xido-doa-fardbek medicines are safe to use. (Note: Don't [...] it goes along with a muffled voice [phone] [employer]. [address] [place] [address]. All rights reserved. This information is not [...] for diarrhea, vomiting, or a high fever. 3852-33[address] [employer] [address] [place] [address]. All rights reserved. This information is not intended as a substitute for professional medical care. Always follow yourhealthcare professional's instructions. Follow Up Care 02/24/2022 09:23:27 With:Keep your appointment for the scheduled EEG. Address:Unknown When:2-4 days With:FISH JORDAN Address: [address] [place] [phone]- Business (1) When:2-4 days Comments:Return to ED if symptoms worsen [facility] 11-12-2022 Note Discharge Instructions Thank you for allowing [facility] to assist you with your healthcare needs. [...] to ED if symptoms worsen Where: [address] [place], [place] [address] (1) Allergies NKA Medications Please ask [...] sleep patterns Cause muscle strain Harm digestion [phone] [employer] [place] [address]. All rights reserved. This information is not [...] loosen secretions in the nose and lungs. Jmqd-vfd-qpcgdcm cold medicines will not shorten the length of time you re sick, but they may be helpful for the following symptoms: cough, sore throat, and nasal and sinus congestion. If you take prescription medicines, ask your healthcare provider or pharmacist which uarx-lfv-witbwix medicines are safe to use. (Note: Don't [...] it goes along with a muffled voice [phone] [place] [address], [place] [address]. All rights reserved. This information is not [...] for diarrhea, vomiting, or a high fever. [phone] The edo. [address] [place] [address]. All rights reserved. This information is not intended as a substitute for professional medical care. Always follow yourhealthcare professional's instructions. Additional Information VACCINATE! IT SAVES LIVES! Members of the community who have not yet received the COVID-19 vaccine and would like to receive it can visit one of [facility] vaccine clinics. There are many vaccine clinic locations within the [facility]. For locations and available times, please visit [email or web address]. It is important to note that some COVID mobile vaccine clinics are held outdoors and may be canceled in rainy orstormy conditions. To learn more about pediatric vaccinations (ages 5-11), we invite you to visit the [facility] webpage. [email or web address] learn more about the COVID-19 vaccine, we invite you to visit the [facility] website for a list of frequently asked questions. [email or web address] [facility] Patient Portal Access Instructions: Stay connected with your healthcare team and access your personal medical information anytime with the [facility] Patient Portal. If you would like a full copy of your medical records please contact the [facility] Medical Records Department Saturday through Saturday between 8a.m. and 4:30p.m. Please follow the directions below to access the portal: 1.Access the email account you provided upon registration to the [facility].2.Look for an invitation email from [facility].3.Open the email and access the invitation link: Accept Invitation to [facility]4.Fill in the required spicer to create your [...] you will allow to register on the [facility] Patient Portal for access to your information. You can also access the [facility] Patient Portal on the [employer].com. Simply click on "Health Records" under "HealthData" [...] Call your local pharmacy or go to [email or web address] to find one close to you.3.Make use of household items: Use cat litter or old coffee grounds to dispose medications if other options arenot available. Mix your drugs with these household products, seal them in an airtight container andthrow it into the garbage. Call [facility]: [phone] to be sure your drugs can be [...] aware that I should contact my doctor. Patient/Meat Cutting Teacher Signature: Date/Time: Relationship to Patient: Witness Name/Signature: Date/Time: [facility]11-12-2022 Note ORIGINAL EXAMINATION: CT OF THE ABDOMEN AND PELVIS WITH PRZVONVI21/12/2022 11:[address] ABDOMEN/PELVIS WITH CONTRAST TECHNIQUE: [...] follow-up imaging is needed.. Interpreted by: Anthony Batuista MD Preliminary Report By: Anthony Bautista MD Electronically signed By Anthony Bautista MD Dictated Date: 02/24/2022 12:20:04 PM Prelim Date: 02/24/2022 12:23:00 PM Sign Date: 02/24/2022 12:23:00 PM Ordering Provider: [facility]11-12-2022 Note ORIGINAL EXAMINATION: CT OF THE HEAD [...] Sign Date: 02/24/2022 12:13:11 PM Ordering Provider: [facility]11-12-2022 Note ORIGINAL EXAMINATION: CT OF THE ABDOMEN AND PELVIS WITH CPPOXRRW69/12/2022 11:[address] ABDOMEN/PELVIS WITH CONTRAST TECHNIQUE: [...] Sign Date: 02/24/2022 12:23:00 PM Ordering Provider: [facility]11-12-2022 Note ORIGINAL EXAMINATION: CT OF [...] Sign Date: 02/24/2022 12:13:11 PM Ordering Provider: [facility]11-12-2022 Note ORIGINAL EXAMINATION: ONE XRAY [...] Sign Date: 02/24/2022 10:42:45 AM Ordering Provider: [facility]11-12-2022 Note ORIGINAL EXAMINATION: ONE XRAY VIEW OF [...] Sign Date: 02/24/2022 10:42:45 AM Ordering Provider: [facility]11-12-2022 SARS-CoV-2 (COVID-19) RNA ADAM+probe Ql (Nph)Negative *NA* (02/24/22 9:54 AM)AO Auto Urine [id number] Hospital Discharge instructions Patient Education 03/18/2021 19:26:47 [...] drainage, or pus coming from the wound [id number] The edo. [address] [place] [address], [place] [address]. All rights reserved. This information is not [...] told. A restriction will beput on your truss driver helper s license until a doctor gives you [...] or painful neck Headache that gets worse [phone] [place] [address]. All rights reserved. This information is not [...] swelling in the outer vaginal area (labia) [phone] The [employer]o[address] [place] [address], [place] [address]. All rights reserved. This information is not intended as a substitute for professional medical care. Always follow yourhealthcare professional's instructions. Follow Up Care 03/18/2021 15:01:02 With:ANTONIO LYONS Address: [address] [place] [address] & [place] [phone] Business (1) When:2-4 days With:NANCIE SHIELDS Address: [address] [facility] [place] [phone] Business (1) When:Within 2 Day(s) With:FISH JORDAN Address: [address] [place] [address]- Business (1) When:2-4 days Comments:Return to ED if symptoms worsen [facility] Evaluation + Plan note Future Appointments Appointment [...] Level 05/27/21 * Complete Metabolic Panel 05/27/21 [facility] Evaluation + Plan note Future Appointments Appointment Date:12/20/2021 09:45:00 AM Scheduled [facility]: [facility] Appointment Type:CV OV Appointment Date:06/07/2022 08:00:00 AM Scheduled Provider: Location:[facility] Appointment Type:PC Nurse Lab Appointment Date:06/14/2022 04:00:00 PM Scheduled Provider:FISH JORDAN APRN, CNP Location:[facility] Appointment Type:PC OV Follow Up Future Scheduled Tests Laboratory* Levetiracetam Level 06/09/22 * Complete Blood Count 06/09/22 * Lipid Profile 06/09/22 * Microalbumin Level Urine 06/09/22 * Vitamin D Level 06/09/22 * Complete Metabolic Panel 06/09/22 [facility] Evaluation + Plan note Future Appointments Appointment [...] Level 06/09/22 * Complete Metabolic Panel 06/09/22 [facility] Evaluation + Plan note Future Appointments Appointment Date:02/27/2022 08:40:00 AM Scheduled Provider:FISH JORDAN APRN, CNP Location:[facility] Appointment Type:PC OV Appointment Date:06/07/2022 08:00:00 AM Scheduled Provider: Location:[facility] Appointment Type:PC Nurse Lab Appointment Date:06/14/2022 04:00:00 PM Scheduled Provider:FISH JORDAN APRN, CNP Location:[facility] Appointment Type:PC OV Follow Up Appointment Date:12/20/2022 09:00:00 AM Scheduled Provider: Location:[facility] Appointment Type:CV Procedure - AOH Echo Diagnostic Tests Pending * Urine Culture 02/24/22 * Levetiracetam Level 02/24/22 Future Scheduled Tests Laboratory* Levetiracetam Level 06/09/22 * Complete Blood Count 06/09/22 * Lipid Profile 06/09/22 * Microalbumin Level Urine 06/09/22 * Vitamin D Level 06/09/22 * Complete Metabolic Panel 06/09/22 [facility] Evaluation + Plan note Future Appointments Appointment [...] Panel 06/09/22 * Complete Metabolic Panel 02/27/22 [facility] Evaluation + Plan note Future Appointments Appointment [...] BD Bone Density DEXA Axial Skeleton 04/09/22 [facility] Evaluation + Plan note Future Appointments Appointment Date:06/07/2022 08:00:00 AM Scheduled Provider: Location:[facility] Appointment Type:PC Nurse Lab Appointment Date:06/14/2022 04:00:00 PM Scheduled Provider:FISH JORDAN APRN, CNP Location:[facility] Appointment Type: OV Follow Up Appointment [...] Axial Skeleton 04/09/22 * MRI Kidney 09/28/22 [facility] Evaluation + Plan note Future Appointments Appointment [...] Axial Skeleton 04/09/22 * MRI Kidney 09/28/22 [facility] Evaluation + Plan note Future Appointments Appointment [...] Axial Skeleton 04/09/22 * MRI Kidney 09/28/22 [facility] Evaluation + Plan note Future Appointments Appointment Date:12/13/2022 08:30:00 AM Scheduled Provider: Location:[facility] Appointment Type:PC Nurse Lab Appointment Date:12/20/2022 [...] BD Bone Density DEXA Axial Skeleton 04/09/22 [facility] Evaluation + Plan note Future Appointments Appointment Date:12/20/2022 07:00:00 AM Scheduled Provider:FISH JORDAN APRN, CNP Location:[facility] Appointment Type:PC OV Follow Up Appointment Date:12/20/2022 09:00:00 AM Scheduled Provider: Location:[facility] Appointment Type:CV Procedure - AOH Echo Diagnostic Tests Pending * Renin, Plasma 12/13/22 Future Scheduled Tests Laboratory* Microalbumin Level Urine 12/15/22 Radiology* BD Bone Density DEXA Axial Skeleton 04/09/22 [facility] Evaluation + Plan note Future Appointments Appointment Date:06/13/2023 08:00:00 AM Scheduled Provider: Location:[facility] Appointment Type:PC Nurse Lab Appointment Date:06/20/2023 [...] BD Bone Density DEXA Axial Skeleton 04/09/22 [facility] Evaluation + Plan note Future Appointments Appointment Date:06/20/2023 07:00:00 AM Scheduled Provider:FISH JORDAN APRN, CNP Location:[facility] Appointment Type:PC OV Follow Up Future Scheduled Tests Laboratory* Albumin/Creatinine Ratio, Random Urine 06/20/23 * Microalbumin Level Urine 12/15/22 [facility] Evaluation + Plan note Future Appointments Appointment Date:07/05/2023 02:30:00 PM Scheduled Provider: Location:[facility] Appointment Type:CV OV Appointment Date:12/12/2023 08:00:00 AM Scheduled Provider: Location:[facility] Appointment Type:PC Nurse Lab Appointment Date:12/23/2023 07:00:00 AM Scheduled Provider:FISH JORDAN APRN, CNP Location:[facility] Appointment Type:PC OV Future Scheduled Tests [...] BD Bone Density DEXA Axial Skeleton 06/20/23 [facility] Evaluation + Plan note Future Appointments Appointment [...] Level 12/21/23 * Complete Metabolic Panel 12/21/23 [facility] Evaluation + Plan note Future Appointments Appointment [...] Level 12/21/23 * Complete Metabolic Panel 12/21/23 [facility] Evaluation noteNo assessment information available [facility] Work Phone: Hospital course Narrative No data available for this section [facility] Hospital Discharge instructions No data available for this section [facility] Progress note No data available for this section [facility] Reason for referral (narrative)No reason for referral information [facility] Work Phone: Summary Purpose Family History [...] Reason for Visit Chief Complaint Admit Date PENITENTIARY LAB WORK April 20, 2024 5:00am LABWORK May 21, 2024 5 :00am LABWORK June 22, 2024 5:0 0am Chief Complaint Admit Date PENITENTIARY LAB WORK April 20, 2024 5:00am LABWORK May 21, 2024 5 :00am LABWORK June 22, 2024 5:0 0am PENITENTIARY LAB WORK July 20, 2024 4: 00am Chief Complaint Admit Date LABWORK May 21, 2024 5 :00am LABWORK June 22, 2024 5:0 0am PENITENTIARY LAB WORK July 20, 2024 4: 00am PENITENTIARY LAB WORK August 18, 2024 5:00 am Additional Source Comments Care Team (unrecognized sect ion and content) Care Team Personnel Name: FISH JORDAN BOWLING BALL MOLDER - CAUSTIC LOADER Position: P4 Advanced Practice Nurse Member Role: Primary Care Physician Address: Address: [address] [place] [address] Care Team Related Persons Name: JORGE PEÑA Address: Home [address] [place], [place] [phone] [place] Name: KIMBERLY PEÑA Care Team Personnel Name: FISH JORDAN BOWLING BALL MOLDER - CAUSTIC LOADER Position: P4 Advanced Practice Nurse Member Role: Primary Care Physician Address: Address: [address] [place] [address] Care Team Related Persons Name: JORGE PEÑA Address: Home [address] [place], [place] [phone] [place] Name: KIMBERLY PEÑA Care Team Personnel Name: FISH JORDAN BOWLING BALL MOLDER - CAUSTIC LOADER Position: P4 Advanced Practice Nurse Member Role: Primary Care Physician Address: Address: [address] [place] [address] Care Team Related Persons Name: JORGE PEÑA Address: Home [address] [place], [place] [phone] [place] Name: KIMBERLY PEÑA Care Team Personnel Name: FISH JORDAN BOWLING BALL MOLDER - CAUSTIC LOADER Position: P4 Advanced Practice Nurse Member Role: Primary Care Physician Address: Address: [address] [place] [phone]- Care Team Related Persons Name: MARIANA JORGE Jack Address: Home [address] [place], [place] [phone] [place] Name: KIMBERLY PEÑA Care Team Personnel Name: FISH JORDAN BOWLING BALL MOLDER - CAUSTIC LOADER Position: P4 Advanced Practice Nurse Member Role: Primary Care Physician Address: Address: [address] [place] [phone]- Care Team Related Persons Name: JORGE PEÑA Address: Home [address] [place], [place] [phone] [place] Name: KIMBERLY PEÑA Care Team Personnel Name: FISH JORDAN BOWLING BALL MOLDER - CAUSTIC LOADER Position: P4 Advanced Practice Nurse Member Role: Primary Care Physician Address: Address: [address] [place] [phone]- Care Team Related Persons Name: MARIANA JORGE S Address: Home [address] [place], [place] [phone] [place] Name: KIMBERLY PEÑA Care Team Personnel Name: FISH JORDAN BOWLING BALL MOLDER - CAUSTIC LOADER Position: P4 Advanced Practice Nurse Member Role: Primary Care Physician Address: Address: [address] [place] [address]- Care Team Related Persons Name: JORGE PEÑA Address: Home [address] [place], [place] [phone] [place] Name: KIMBERLY PEÑA Care Team Personnel Name: FISH JORDAN BOWLING BALL MOLDER - [employer]USTIC LOADER Position: P4 Advanced Puff Ironer Member Role: Primary Care Physician Address: Address: [address] [place] [phone]- [place] Care Team Related Persons Name: JORGE PEÑA Address: Home [address] [place], [place] [phone] [place] Name: KIMBERLY PEÑA Patient Care team [...] section and content) DATE CREATED AUTHOR 09/21/2023 [facility] ([place]) DATE CREATED AUTHOR AUTHOR'S ORGANIZ ATION 05/07/2024 [facility] DATE CREATED AUTHOR AUTHOR'S ORGANIZ ATION 11/03/2024 [facility] Goals (unrecognized section and content) Goals may [...] BE BASED ON THE PRIMARY CLINICAL RECORDS. [employer] [facility]. provides no warranty or guarantee of the accuracy or completeness of information in this document.
[2024-11-18 08:23] LABS: Valproic Acid (Depakene) Level 69 ug/mL (50-100)
[2024-11-18 08:41] LABS: Vitamin D,25 Hydroxy 28.1 ng/mL (30-100)
== END ==
LOC: OLS.WCC 05:00
PROVIDERS: PCP Family Medicine; Visit Provider Family Medicine
DX: E55.9 Vitamin D deficiency, unspecified (principal); Z79.899 Other long term (current) drug therapy
CPT/HCPCS: 36415; 80164; 82306

== ENCOUNTER → 2024-12-21 05:00 | Outpatient (REF) | payer MEDICARE, MEDICAID, SELFPAY ==
--- OUTSIDE RECORDS SUMMARY | 2024-12-21 04:24 | XMS RPT_ITS | CCD ---
Author Organization [facility] Inform ion Partnership [facility] Care Team Providers Care Mobile Disc Jockey Name Role Phone NIKKI REAL ESTATE APPRAISER - ARLINE, FISH James Primary Care Phys ician NIKKI REAL ESTATE APPRAISER - WATER POLLUTION CONTROL INSPECTOR, FISH James Primary Care U navailable NIKKI REAL ESTATE APPRAISER - WATER POLLUTION CONTROL INSPECTOR, FISH James Attending U navailable NIKKI REAL ESTATE APPRAISER - WATER POLLUTION CONTROL INSPECTOR, FISH James Primary Care U leobardo GAMBLE MD, DR ELISA Clinton Attending Unavailable NIKKI REAL ESTATE APPRAISER - WATER POLLUTION CONTROL INSPECTOR, FISH James Primary Care U leobardo DEAN MD, MARJ Attending Unavailable NIKKI REAL ESTATE APPRAISER - WATER POLLUTION CONTROL INSPECTOR, FISH James Primary Care U leobardo DEAN MD, MARJ Attending Unavailable NIKKI REAL ESTATE APPRAISER - ARLINE, FISH James Primary Care U leobardo LEONARD MD, [facility] Admitting Unavailable DIANNE VAZQUEZ, DR GALVEZ Attending Unavailable ELIJAH CASAREZ, CHARLY Consulting Unavailable JM LIU MD Consulting Unavailable NIKKI REAL ESTATE APPRAISER - WATER POLLUTION CONTROL INSPECTOR, FISH James Consulting U navailable NIKKI REAL ESTATE APPRAISER - WATER POLLUTION CONTROL INSPECTOR, FISH James Attending U navailable NIKKI REAL ESTATE APPRAISER - WATER POLLUTION CONTROL INSPECTOR, FISH James Primary Care U navailable NIKKI REAL ESTATE APPRAISER - WATER POLLUTION CONTROL INSPECTOR, FISH James Attending U navailable NIKKI REAL ESTATE APPRAISER - WATER POLLUTION CONTROL INSPECTOR, FISH James Primary Care U navailable NIKKI REAL ESTATE APPRAISER - WATER POLLUTION CONTROL INSPECTOR, FISH James Attending U navailable NIKKI REAL ESTATE APPRAISER - WATER POLLUTION CONTROL INSPECTOR, FISH James Primary Care U navailable NIKKI REAL ESTATE APPRAISER - WATER POLLUTION CONTROL INSPECTOR, FISH James Primary Care U navailable NIKKI REAL ESTATE APPRAISER - WATER POLLUTION CONTROL INSPECTOR, FISH James Attending U navailable NIKKI REAL ESTATE APPRAISER - WATER POLLUTION CONTROL INSPECTOR, FISH James Attending U navailable NIKKI REAL ESTATE APPRAISER - WATER POLLUTION CONTROL INSPECTOR, FISH James Primary Care U navailable NIKKI REAL ESTATE APPRAISER - WATER POLLUTION CONTROL INSPECTOR, FISH James Attending U navailable NIKKI REAL ESTATE APPRAISER - WATER POLLUTION CONTROL INSPECTOR, FISH James Primary Care U leobardo HARPER MD, DOTTY Consulting Unavailable NIKKI Dhillon CNP, FISH James Primary Care U leobardo MARQUEZ DO, AIDEN Attending Unavailable HORACIO CASAREZ, JAMEY Consulting Unavailable FISH JORDAN Attending Unavailable JERMAINE CASAREZ, MARJ Attending Unavailable Joel CASAREZ, Elisa Kemp Attending Provider Unavailable Aiden VAZQUEZ, Dr. Wolfe Primary Care Provider Elisa Maldonado MD Referring Provider Unavailable Joel CASAREZ, Elisa Kemp Attending Provider Unavailable Aiden VAZQUEZ, Dr. Wolfe Primary Care Provider Aiden, Aiden Primary Care Unavailable Maldonado OLS, Elisa K Attending Unavailable Greenwood, Aiden Primary Care Unavailable Maldonado OLS, Elisa K Attending Unavailable Greenwood, Aiden Primary Care Unavailable Maldonado OLS, Elisa [...] Unavailable Maldonado OLS, Elisa K Attending Unavailable Greenwood, Aiden Primary Care Unavailable Maldonado OLS, Elisa K Attending Unavailable Aiden, Aiden Primary Care Unavailable Maldonado OLS, Elisa K Attending Unavailable Maldonado OLS, Elisa K Referring Unavailable Maldonado OLS, Elisa K Attending Unavailable Greenwood, Aiden Primary Care Unavailable Maldonado OLS, Elisa K Attending Unavailable Greenwood, Aiden Primary Care Unavailable Medications Current Medications [...] qDay, # 90 tab(s), 1 Refill(s), Pharmacy: [facility], HTN (hypertension), 159, cm, 06/20/23 7:04:00 EST, Height, kg, 06/20/23 7:04:00 EST, Dosing Weight Start Date: 06/20/23 Stop Date: 12/17/23 Status: Ordered Start: 12-20-2022 End: 06-18-2023 amLODIPine 5 mg oral tablet Dose : 5 mg = 1 tab(s), Oral, qDay, # 90 tab(s), 1 Refill(s), Pharmacy: [facility], HTN (hypertension), 160, cm, 12/20/22 7:08:00 EDT, Height, kg, 12/20/22 7:08:00 EDT, Dosing Weight Start Date: 12/20/22 Stop Date: 06/18/23 Status: Ordered Start: 01-30-2016 End: 12-11-2022 amLODIPine 5 mg oral tablet Dose : 5 mg = 1 tab(s), Oral, qDay, # 90 tab(s), 1 Refill(s), Pharmacy: [facility], HTN (hypertension), 160, cm, 06/14/22 [...] cough, # 30 cap(s), 0 Refill(s), Pharmacy: [facility], Acute cough, 159, cm, 05/01/23 [...] use, # 3 cap(s), 4 Refill(s), Pharmacy: [facility], Vitamin D deficiency, 159, cm, 06/20/23 7:04:00 EST, Height, kg, 06/20/23 7:04:00 EST, Dosing Weight Start Date: 06/20/23 Stop Date: 11/17/23 Status: Ordered Start: 12-20-2022 End: 05-19-2023 cholecalciferol 1250 mcg (50 ,000 intl units) oral capsule Dose : 50,000 International_Unit = 1 cap(s), Oral, qmonth, Failed conservative OTC daily use, # 3 cap(s), 4 Refill(s), Pharmacy: [facility], Vitamin D deficiency, 160, cm, 12/20/22 7:08:00 EDT, Height, kg, 12/20/22 7:08:00 EDT, Dosing Weight Start Date: 12/20/22 Stop Date: 05/19/23 Status: Ordered Start: 06-28-2022 End: 05-19-2023 cholecalciferol 1250 mcg (50 ,000 intl units) oral capsule Dose : 50,000 International_Unit = 1 cap(s), Oral, qmonth, Failed conservative OTC daily use, # 3 cap(s), 4 Refill(s), Pharmacy: [facility], Vitamin D deficiency, 160, cm, 12/20/22 7:08:00 EDT, Height, kg, 12/20/22 7:08:00 EDT, Dosing Weight Start Date: 12/20/22 Stop Date: 05/19/23 Status: Ordered Start: 12-07-2021 End: 06-27-2022 cholecalciferol 1250 mcg (50 ,000 intl units) oral capsule Dose : 50,000 International_Unit = 1 cap(s), Oral, qmonth, Failed conservative OTC daily use, # 2 cap(s), 0 Refill(s), Pharmacy: [facility], Vitamin D deficiency, 160, cm, 03/30/22 15:08:00 EST, Height, kg, 03/30/22 15:08:00 EST, Dosing Weight Start Date: 05/28/22 Stop Date: 06/27/22 Status: Ordered Start: 11-24-2020 End: 08-21-2021 cholecalciferol 1250 mcg (50 ,000 intl units) oral capsule Dose : 50,000 International_Unit = 1 cap(s), Oral, qWeek, Failed conservative OTC daily use, # 13 cap(s), 2 Refill(s), Pharmacy: [facility], Vitamin D deficiency, 159, cm, [...] q2wk, # 2 mL, 12 Refill(s), Pharmacy: [facility], 159, cm, 08/02/23 9:46:00 EDT, Height, kg, 08/02/23 9:46:00 EDT, Dosing Weight Start Date: 08/02/23 Status: Ordered Start: 02-04-2023 inject 1 dose by sub cutaneous injection every other week Repatha SureClick 140 mg/mL subcutaneous solution Dose : 140 mg =, Subcutaneous, q2wk, # 2 mL, 0 Refill(s), Pharmacy: [facility], 160, cm, 12/20/22 7:08:00 EDT, Height, kg, 12/20/22 7:08:00 EDT, Dosing Weight Start Date: 02/04/23 Status: Ordered Start: 10-04-2022 inject 1 dose by sub cutaneous injection every other week Repatha SureClick 140 mg/mL subcutaneous solution Dose : 140 mg =, Subcutaneous, q2wk, # 1 mL, 3 Refill(s), Pharmacy: [facility], 160, cm, 06/14/22 16:06:00 EST, Height, kg, 06/14/22 16:06:00 EST, Dosing Weight Start Date: 10/04/22 Status: Ordered Start: 12-20-2021 inject 1 dose by sub cutaneous injection every other week Repatha SureClick 140 mg/mL subcutaneous solution Dose : 140 mg =, Subcutaneous, q2wk, # 3 mL, 11 Refill(s), Pharmacy: [facility], 160, cm, 12/20/21 10:10:00 EDT, Height, kg, 12/20/21 10:10:00 EDT, Dosing Weight Start Date: 12/20/21 Status: Ordered Start: 11-28-2021 inject 1 dose by sub cutaneous injection every other week Repatha SureClick 140 mg/mL subcutaneous solution Dose : 140 mg =, Subcutaneous, q2wk, # 2 kit(s), 0 Refill(s), Pharmacy: [facility], 167, cm, 06/02/21 8:18:00 EST, Height, kg, 06/02/21 8:18:00 EST, Dosing Weight Start Date: 11/28/21 Status: Ordered hydroCHLOROthiazide 25 mg oral tablet (19 sources) Thiazide Diuretic Start: 06-20-2023 End: 12-17-2023 hydroCHLOROthiazide 25 mg oral tablet Dose : 25 mg = 1 tab(s), Oral, qDay, # 90 tab(s), 1 Refill(s), Pharmacy: [facility], HTN (hypertension), 159, cm, 06/20/23 7:04:00 EST, Height, kg, 06/20/23 7:04:00 EST, Dosing Weight Start Date: 06/20/23 Stop Date: 12/17/23 Status: Ordered Start: 12-20-2022 End: 06-18-2023 hydroCHLOROthiazide 25 mg or al tablet Dose : 25 mg = 1 tab(s), Oral, qDay, # 90 tab(s), 1 Refill(s), Pharmacy: [facility], HTN (hypertension), 160, cm, 12/20/22 7:08:00 EDT, Height, kg, 12/20/22 7:08:00 EDT, Dosing Weight Start Date: 12/20/22 Stop Date: 06/18/23 Status: Ordered Start: 06-14-2022 End: 12-11-2022 hydroCHLOROthiazide 25 mg or al tablet Dose : 25 mg = 1 tab(s), Oral, qDay, # 90 tab(s), 1 Refill(s), Pharmacy: [facility], HTN (hypertension), 160, cm, 06/14/22 16:06:00 EST, Height, kg, 06/14/22 16:06:00 EST, Dosing Weight Start Date: 06/14/22 Stop Date: 12/11/22 Status: Ordered Start: 12-07-2021 End: 06-05-2022 hydroCHLOROthiazide 25 mg or al tablet Dose : 25 mg = 1 tab(s), Oral, qDay, # 90 tab(s), 1 Refill(s), Pharmacy: [facility], HTN (hypertension), 160, cm, 12/07/21 8:16:00 EDT, Height, kg, 12/07/21 8:16:00 EDT, Dosing Weight Start Date: 12/07/21 Stop Date: 06/05/22 Status: Ordered Start: 11-24-2020 End: 08-21-2021 hydroCHLOROthiazide 25 mg or al tablet Dose : 25 mg = 1 tab(s), Oral, qDay, # 90 tab(s), 2 Refill(s), Pharmacy: [facility], HTN (hypertension), 159, cm, 11/24/20 [...] / neomycin 3.5 mg/ml / polymyxin b 38003 unt/ml otic suspension (1 source) Aminoglycoside Antibacterial, Polymyxin-class Antibacterial, Corticosteroid Start: 02-27-2022 End: 03-06-2022 hydrocortisone/neomycin/poly myxi n B 1%-0.35%-10,000 units/mL otic suspension Dose = 4 drop(s), Ear, left, TID, shake well before using, X 7 day(s), # 10 mL, 0 Refill(s), Pharmacy: [facility], Acute otitis media with perforation: [...] qDay, # 30 tab(s), 1 Refill(s), Pharmacy: [facility], Seasonal allergies Seasonal asthma, 160, cm, 11/06/22 8:03:00 EDT, Height, kg, 11/06/22 7:59:00 EDT, Dosing Weight Start Date: 11/06/22 Status: Ordered losartan potassium 100 mg oral tablet (20 sources) Angiotensin 2 Receptor Loyd Start: 06-20-2023 End: 12-17-2023 losartan 100 mg oral tablet Dose : 100 mg = 1 tab(s), Oral, qDay, # 90 tab(s), 1 Refill(s), Pharmacy: [facility], HTN (hypertension), 159, cm, 06/20/23 7:04:00 EST, Height, kg, 06/20/23 7:04:00 EST, Dosing Weight Start Date: 06/20/23 Stop Date: 12/17/23 Status: Ordered Start: 12-20-2022 End: 06-18-2023 losartan 100 mg oral tablet Dose : 100 mg = 1 tab(s), Oral, qDay, # 90 tab(s), 1 Refill(s), Pharmacy: [facility], HTN (hypertension), 160, cm, 12/20/22 7:08:00 EDT, Height, kg, 12/20/22 7:08:00 EDT, Dosing Weight Start Date: 12/20/22 Stop Date: 06/18/23 Status: Ordered Start: 06-14-2022 End: 12-11-2022 losartan 100 mg oral tablet Dose : 100 mg = 1 tab(s), Oral, qDay, # 90 tab(s), 1 Refill(s), Pharmacy: [facility], HTN (hypertension), 160, cm, 06/14/22 16:06:00 EST, Height, kg, 06/14/22 16:06:00 EST, Dosing Weight Start Date: 06/14/22 Stop Date: 12/11/22 Status: Ordered Start: 12-07-2021 End: 06-05-2022 losartan 100 mg oral tablet Dose : 100 mg = 1 tab(s), Oral, qDay, # 90 tab(s), 1 Refill(s), Pharmacy: [facility], HTN (hypertension), 160, cm, 12/07/21 8:16:00 EDT, Height, kg, 12/07/21 8:16:00 EDT, Dosing Weight Start Date: 12/07/21 Stop Date: 06/05/22 Status: Ordered Start: 11-24-2020 End: 08-21-2021 losartan 100 mg oral tablet Dose : 100 mg = 1 tab(s), Oral, qDay, # 90 tab(s), 2 Refill(s), Pharmacy: [facility], HTN (hypertension), 159, cm, 11/24/20 [...] q2wk, # 2 kit(s), 11 Refill(s), Pharmacy: [facility], 160, cm, 01/09/21 9:17:00 EDT, Height, kg, 01/09/21 9:17:00 EDT, Dosing Weight Start Date: 01/09/21 Status: Ordered Spacer, inhaler (10 sources) Start: 11-06-2022 Spacer, inhale r See Instructions, use as directed Pt has developmental disorder and spacer required to insure proper use of inhaler., # 1 EA, 0 Refill(s), Pharmacy: [facility], Seasonal asthma Developmentally disabled, 160, [...] q6h, # 18 gram(s), 1 Refill(s), Pharmacy: [facility], Seasonal asthma Developmentally disabled, 159, cm, 06/20/23 7:04:00 EST, Height, kg, 06/20/23 7:04:00 EST, Dosing Weight Start Date: 06/20/23 Stop Date: 08/19/23 Status: Ordered Start: 12-20-2022 End: 02-18-2023 take 2 puff(s) by inhalation every six hours albuterol MDI (90 mcg/inh) CFC free inhalation aerosol 2 puff(s), Inhalation, q6h, # 18 gram(s), 1 Refill(s), Pharmacy: [facility], Seasonal asthma Developmentally disabled, 160, cm, 12/20/22 7:08:00 EDT, Height, kg, 12/20/22 7:08:00 EDT, Dosing Weight Start Date: 12/20/22 Stop Date: 02/18/23 Status: Ordered Start: 11-06-2022 End: 01-05-2023 take 2 puff(s) by inhalation every six hours albuterol MDI (90 mcg/inh) CFC free inhalation aerosol 2 puff(s), Inhalation, q6h, # 18 gram(s), 1 Refill(s), Pharmacy: [facility], Seasonal asthma Developmentally disabled, 160, [...] qHS, # 30 tab(s), 1 Refill(s), Pharmacy: [facility], Seasonal allergies, 159, cm, 11/24/20 8:03:00 EDT, Height, kg, 11/24/20 8:03:00 EDT, Dosing Weight Start Date: 11/24/20 Stop Date: 01/23/21 Status: Ordered montelukast 10 mg oral tablet (14 sources) Leukotriene Receptor Antagonist Start: 11-06-2022 End: 01-05-2023 Singulair 10 mg oral tablet Dose : 10 mg = 1 tab(s), Oral, qDay, # 30 tab(s), 1 Refill(s), Pharmacy: [facility], Seasonal allergies Seasonal asthma, 160, cm, 11/06/22 8:03:00 EDT, Height, kg, 11/06/22 7:59:00 EDT, Dosing Weight Start Date: 11/06/22 Stop Date: 01/05/23 Status: Ordered Start: 06-14-2022 Singulair 10 m g oral tablet Dose : 10 mg = 1 tab(s), Oral, qDay, # 30 tab(s), 1 Refill(s), Pharmacy: [facility], Seasonal asthma, 160, cm, 06/14/22 16:06:00 EST, Height, kg, 06/14/22 16:06:00 EST, Dosing Weight Start Date: 06/14/22 Status: Ordered Start: 12-07-2021 Singulair 10 m g oral tablet Dose : 10 mg = 1 tab(s), Oral, qDay, # 30 tab(s), 1 Refill(s), Pharmacy: [facility], Seasonal asthma, 160, cm, 12/07/21 [...] qDay, # 90 tab(s), 1 Refill(s), Pharmacy: [facility], Hyperlipidemia LDL goal Start Date: 12/20/22 Stop Date: 06/18/23 Status: Ordered Start: 06-14-2022 End: 12-11-2022 rosuvastatin 10 mg oral tabl et Dose : 10 mg = 1 tab(s), Oral, qDay, # 90 tab(s), 1 Refill(s), Pharmacy: [facility], Hyperlipidemia LDL goal Start Date: 06/14/22 Stop Date: 12/11/22 Status: Ordered Start: 12-07-2021 End: 06-05-2022 rosuvastatin 10 mg oral tabl et Dose : 10 mg = 1 tab(s), Oral, qDay, # 90 tab(s), 1 Refill(s), Pharmacy: [facility], Hyperlipidemia LDL goal Start Date: 12/07/21 Stop Date: 06/05/22 Status: Ordered Start: 11-24-2020 End: 08-21-2021 rosuvastatin 10 mg oral tabl et Dose : 10 mg = 1 tab(s), Oral, qDay, # 90 tab(s), 2 Refill(s), Pharmacy: [facility], Hyperlipidemia LDL goal Start Date: 11/24/20 Stop [...] deficiency; Translations: [Vitamin D deficiency, unspecified] Onset: 12-08-2024 11-10-2019 Chronic Osteoporosis (20 sources) Osteoporosis 11-10-2019 Chronic Other aftercare (2 sources) Other mcc (current) drug therapy; Translations: [Other mcc (current) drug therapy] Onset: 10-23-2024 Episodic Other and ill-defined cerebrovascular disease (2 [...] Test Name Value Interpretation Reference Range Facility Valproic Acid (Depakene) Lev alpa 11-18-2024 VALPROIC ACID 69 ug/mL Normal 50-100 [facility] Comment on above: Order Comment: 120.1 Result Comment: Valp roic Acid concentrations >100 ug/mL are potentially toxic. Performed By: #### L 100.0500, [id number] #### [facility] [address] [place], [address] Vitamin D,25 Hydroxyon 11-18 Vitamin D 25-OH 28.1 ng/mL Low 30-100 [facility] Comment on above: Order Comment: 120.1 Result Comment: Debo min D Status Deficiency: <20 ng/mL (50nmol/L) Insufficiency: 20-30 ng/mL (50-75 nmol/L) Sufficiency: 30-100 ng/mL (75-250 nmol/L) Toxicity: >100 ng/mL (>250 nmol/L) Performed By: #### L 100.0500, [id number] #### [facility] [address] [place], [address] [id number] 10-14-2024 PHENobarbital [Mass/Vol] 5 ug/mL Abnormal 15-40 [facility] Comment on above: Order Comment: 120.1 Result Comment: Dete ction Limit = 3 Performed at: [facility] [address] [id number] Retirement Sales Consultant: Daniel Heredia MD, Phone: [phone] Performed at: - [facility] [id number] Retirement Sales Consultant: Crescencio Metcalf PhD, Phone: [phone] Performed By: #### L 100.0500, [id number] #### [facility] [address] [place], [address] Mysoline (Primidone)on 10-14 PHENOBARB,SERUM 5 ug/mL Low 15-40 [facility] Comment on above: Order Comment: 120.1 Result Comment: Dete ction Limit = 3 Performed By: #### L 100.0500, [id number] #### [facility] [address] [place], [address] PRIMIDONE,SERUM 5.4 ug/mL Normal 5.0-12.0 [facility] Comment on above: Order Comment: 120.1 Result Comment: Dete ction Limit = 2.5 <2.5 indicates None Detected Performed By: #### L 100.0500, [id number] #### [facility] [address] [place], [address] CBC-Complete Blood Cnt No Di ffon 10-13-2024 Erythrocyte distribution width (RBC) [Ratio] 15.3 % High 11.6-14.6 [facility] Comment on above: Order Comment: 120.1 Performed By: #### L 100.0500, [id number] #### [facility] [address] [place], [address] Hematocrit (Bld) [Volume fraction] 34.6 % Low 37-47 [facility] Comment on above: Order Comment: 120.1 Performed By: #### L 100.0500, [id number] #### [facility] [address] [place], [address] Hemoglobin (Bld) [Mass/Vol] 10.9 g/dL Low 12.0-15.0 [facility] Comment on above: Order Comment: 120.1 Performed By: #### L 100.0500, [id number] #### [facility] [address] [place], [address] MCH (RBC) [Entitic mass] 26.5 pg Low 27.0-32.0 [facility] Comment on above: Order Comment: 120.1 Performed By: #### L 100.0500, [id number] #### [facility] [address] [place], [address] MCHC (RBC) [Mass/Vol] 31.5 g/dL Low 32-36 [facility] Comment on above: Order Comment: 120.1 Performed By: #### L 100.0500, [id number] #### [facility] [address] [place], [address] MCV (RBC) [Entitic vol] 84.0 fL Normal 81-99 [facility] Comment on above: Order Comment: 120.1 Performed By: #### L 100.0500, [id number] #### [facility] [address] [place], [address] Platelet mean volume (Bld) [Entitic vol] 10.3 fL Normal 6.2-12.0 [facility] Comment on above: Order Comment: 120.1 Performed By: #### L 100.0500, [id number] #### [facility] [address] [place], [address] Platelets (Bld) [#/Vol] 278 10*3/uL Normal 150-450 [facility] Comment on above: Order Comment: 120.1 Performed By: #### L 100.0500, [id number] #### [facility] [address] [place], [address] RBC (Bld) [#/Vol] 4.12 10*6/uL Low 4.2-5.4 [facility] Comment on above: Order Comment: 120.1 Performed By: #### L 100.0500, [id number] #### [facility] [address] [place], [address] RDW SD 46.5 fl High 35.1-43.9 [facility] Comment on above: Order Comment: 120.1 Performed By: #### L 100.0500, [id number] #### [facility] [address] [place], [address] WBC (Bld) [#/Vol] 10.3 10*3/uL Normal 4.4-11.0 [facility] Comment on above: Order Comment: 120.1 Performed By: #### L 100.0500, [id number] #### [facility] [address] [place], [address] Comprehensive Metabolic Prof ilon 10-13-2024 Albumin [Mass/Vol] 3.9 g/dL Normal 3.4-4.8 [facility] Comment on above: Order Comment: 120.1 Performed By: #### L 100.0500, [id number] #### [facility] [address] [place], [address] Albumin/Globulin [Mass ratio] 1.0 {ratio} Normal 0.9-2.4 [facility] Comment on above: Order Comment: 120.1 Performed By: #### L 100.0500, [id number] #### [facility] [address] [place], [address] ALK PHOS 81 U/L Normal 35-104 [facility] Comment on above: Order Comment: 120.1 Performed By: #### L 100.0500, [id number] #### [facility] [address] [place], [address] ALT [Catalytic activity/Vol] 28 U/L Normal <=34 [facility] Comment on above: Order Comment: 120.1 Performed By: #### L 100.0500, [id number] #### [facility] [address] [place], [address] AST [Catalytic activity/Vol] 58 U/L High <=31 [facility] Comment on above: Order Comment: 120.1 Performed By: #### L 100.0500, [id number] #### [facility] [address] [place], [address] Bilirubin [Mass/Vol] 0.23 mg/dL Normal 0.00-1.30 [facility] Comment on above: Order Comment: 120.1 Performed By: #### L 100.0500, [id number] #### [facility] [address] [place], [address] BUN/CRE 19.4 RATIO Normal 10-20 [facility] Comment on above: Order Comment: 120.1 Performed By: #### L 100.0500, [id number] #### [facility] [address] [place], [address] Calcium [Mass/Vol] 10.8 mg/dL Normal 7.6-11.0 [facility] Comment on above: Order Comment: 120.1 Performed By: #### L 100.0500, [id number] #### [facility] [address] [place], [address] Chloride [Moles/Vol] 100 mmol/L Normal 98-108 [facility] Comment on above: Order Comment: 120.1 Performed By: #### L 100.0500, [id number] #### [facility] [address] [place], [address] CO2 [Moles/Vol] 24.3 mmol/L Normal 21.0-32.0 [facility] Comment on above: Order Comment: 120.1 Performed By: #### L 100.0500, [id number] #### [facility] [address] [place], [address] Creatinine [Mass/Vol] 0.76 mg/dL Normal 0.70-1.20 [facility] Comment on above: Order Comment: 120.1 Performed By: #### L 100.0500, [id number] #### [facility] [address] [place], [address] GAP 13 Normal 5-15 [facility] Comment on above: Order Comment: 120.1 Performed By: #### L 100.0500, [id number] #### [facility] [address] [place], [address] GFR/1.73 sq M.predicted among non-blacks MDRD (S/P/Bld) [Vol rate/Area] 86 mL/min/{1.73_m2} Normal >60 [facility] Comment on above: Order Comment: 120.1 Result Comment: mL/m in/1.73m2 CKD-EPI Creatinine Equation (2020) Performed By: #### L 100.0500, [id number] #### [facility] [address] [place], [address] Globulin (S) [Mass/Vol] 3.9 g/dL Normal 2.2-4.[address] [facility] Comment on above: Order Comment: 120.1 Performed By: #### L 100.0500, [id number] #### [facility] [address] [place], [address] Glucose [Mass/Vol] 101 mg/dL High 70-99 [facility] Comment on above: Order Comment: 120.1 Performed By: #### L 100.0500, L500.4050 #### [facility] [address] [place], [address] Potassium [Moles/Vol] 4.5 mmol/L Normal 3.3-5.1 [facility] Comment on above: Order Comment: 120.1 Performed By: #### L 100.0500, L500.4050 #### [facility] [address] [place], [address] Sodium [Moles/Vol] 138 mmol/L Normal 133-145 [facility] Comment on above: Order Comment: 120.1 Performed By: #### L 100.0500, L500.4050 #### [facility] [address] [place], [address] T PROT 7.8 g/dL Normal 5.9-8.4 [facility] Comment on above: Order Comment: 120.1 Performed By: #### L 100.0500, L500.4050 #### [facility] [address] [place], [address] Urea nitrogen [Mass/Vol] 15 mg/dL Normal 4-19 [facility] Comment on above: Order Comment: 120.1 Performed By: #### L 100.0500, L500.4050 #### [facility] [address] [place], [address] Hemoglobin A1con 10-13-2024 HbA1c (Bld) [Mass fraction] 6.8 % High <=5.6 [facility] Comment on above: Order Comment: 120.1 Result Comment: Norm al < 5.7 % Prediabetic 5.7 - 6.4 % Diabetic >or= 6.5 % Please note range changes. Performed By: #### L 100.0500, L500.4050 #### [facility] [address] [place], [address] [id number] 10-06-2024 [facility] Misc. COMMENT Normal . [facility] Comment on above: Order Comment: 120.1 Result Comment: Test Ordered: 123304 Lacosamide Test(s) [id number]-[id number] was developed and its performance characteristics determined by [facility]. It has not been cleared or approved by the Food and Drug Administration. Lacosamide 6.3 ug/mL BN Reference Range: 5.0-10.0 Limit of Detection 0.5 Mean plasma concentrations following maintenance dose 200 mg/day 4.99 +/- 2.51 ug/mL 400 mg/day 9.35 +/- 4.22 ug/mL 600 mg/day 12.46 +/- 5.60 ug/mL Performed at: [facility] [address] [id number] Retirement Sales Consultant: Daniel Heredia MD, Phone: [phone] Performed at: [facility] [address] [id number] Retirement Sales Consultant: Crescencio Metcalf PhD, Phone: [phone] Performed By: #### L 100.0500, L500.4050 #### [facility] [address] [place], [address] CBC W/Diff, Automatedon 06- Absolute Lymph 3.00 X10 3/uL Normal 0.83-4.51 [facility] Comment on above: Order Comment: 120.1 Performed By: #### L 100.0500, L500.4050 #### [facility] [address] [place], [address] Absolute Neut 4.8 X10 3/uL Normal 2.0-7.7 [facility] Comment on above: Order Comment: 120.1 Performed By: #### L 100.0500, L500.4050 #### [facility] [address] [place], [address] Basophils/100 WBC (Bld) 0.8 % Normal 0-1 [facility] Comment on above: Order Comment: 120.1 Performed By: #### L 100.0500, L500.4050 #### [facility] [address] [place], [address] Eosinophils/100 WBC (Bld) 2.8 % Normal 0-5 [facility] Comment on above: Order Comment: 120.1 Performed By: #### L 100.0500, L500.4050 #### [facility] [address] [place], [address] Erythrocyte distribution width (RBC) [Ratio] 15.4 % High 11.6-14.6 [facility] Comment on above: Order Comment: 120.1 Performed By: #### L 100.0500, L500.4050 #### [facility] [address] [place], [address] Hematocrit (Bld) [Volume fraction] 33.1 % Low 37-47 [facility] Comment on above: Order Comment: 120.1 Performed By: #### L 100.0500, L500.4050 #### [facility] [address] [place], [address] Hemoglobin (Bld) [Mass/Vol] 10.7 g/dL Low 12.0-15.0 [facility] Comment on above: Order Comment: 120.1 Performed By: #### L 100.0500, L500.4050 #### [facility] [address] [place], [address] IG% 0.600 Normal 0.0-0.9 [facility] Comment on above: Order Comment: 120.1 Result Comment: IG% - Immature Granulocytes (promyelocytes, myelocytes and metamyelocytes) > 1% indicates that a LEFT SHIFT is Present. Performed By: #### L 100.0500, L500.4050 #### [facility] [address] [place], [address] Lymphocytes/100 WBC (Bld) 32.3 % Normal 19-41 [facility] Comment on above: Order Comment: 120.1 Performed By: #### L 100.0500, L500.4050 #### [facility] [address] [place], [address] MCH (RBC) [Entitic mass] 26.6 pg Low 27.0-32.0 [facility] Comment on above: Order Comment: 120.1 Performed By: #### L 100.0500, L500.4050 #### [facility] [address] [place], [address] MCHC (RBC) [Mass/Vol] 32.3 g/dL Normal 32-36 [facility] Comment on above: Order Comment: 120.1 Performed By: #### L 100.0500, L500.4050 #### [facility] [address] [place], [address] MCV (RBC) [Entitic vol] 82.3 fL Normal 81-[address] [facility] Comment on above: Order Comment: 120.1 Performed By: #### L 100.0500, L500.4050 #### [facility] [address] [place], [address] Monocytes/100 WBC (Bld) 12.3 % High 0-[address] [facility] Comment on above: Order Comment: 120.1 Performed By: #### L 100.0500, L500.4050 #### [facility] [address] [place], [address] Neutrophils/100 WBC (Bld) 51.2 % Normal 47-70 [facility] Comment on above: Order Comment: 120.1 Performed By: #### L 100.0500, L500.4050 #### [facility] [address] [place], [address] Nucleated RBC (Bld) [#/Vol] 0 10*3/uL Normal 0-5 [facility] Comment on above: Order Comment: 120.1 Performed By: #### L 100.0500, L500.4050 #### [facility] [address] [place], [address] Platelet mean volume (Bld) [Entitic vol] 10.0 fL Normal 6.2-12.0 [facility] Comment on above: Order Comment: 120.1 Performed By: #### L 100.0500, L500.4050 #### [facility] [address] [place], [address] Platelets (Bld) [#/Vol] 295 10*3/uL Normal 150-450 [facility] Comment on above: Order Comment: 120.1 Performed By: #### L 100.0500, L500.4050 #### [facility] [address] [place], [address] RBC (Bld) [#/Vol] 4.02 10*6/uL Low 4.2-5.4 [facility] Comment on above: Order Comment: 120.1 Performed By: #### L 100.0500, L500.4050 #### [facility] [address] [place], [address] RDW SD 45.3 fl High 35.1-43.9 [facility] Comment on above: Order Comment: 120.1 Performed By: #### L 100.0500, L500.4050 #### [facility] [address] [place], [address] WBC (Bld) [#/Vol] 9.3 10*3/uL Normal 4.4-11.0 [facility] Comment on above: Order Comment: 120.1 Performed By: #### L 100.0500, L500.4050 #### [facility] [address] [place], [address] Comprehensive Metabolic Prof [facility] 10-01-2024 Albumin [Mass/Vol] 4.0 g/dL Normal 3.4-4.8 [facility] Comment on above: Order Comment: 120.1 Performed By: #### L 100.0500, L500.4050 #### [facility] [address] [place], [address] Albumin/Globulin [Mass ratio] 1.1 {ratio} Normal 0.9-2.4 [facility] Comment on above: Order Comment: 120.1 Performed By: #### L 100.0500, L500.4050 #### [facility] [address] [place], [address] ALK PHOS 83 U/L Normal 35-104 [facility] Comment on above: Order Comment: 120.1 Performed By: #### L 100.0500, L500.4050 #### [facility] [address] [place], [address] ALT [Catalytic activity/Vol] 30 U/L Normal <=34 [facility] Comment on above: Order Comment: 120.1 Performed By: #### L 100.0500, L500.4050 #### [facility] [address] [place], [address] AST [Catalytic activity/Vol] 53 U/L High <=31 [facility] Comment on above: Order Comment: 120.1 Performed By: #### L 100.0500, L500.4050 #### [facility] [address] [place], [address] Bilirubin [Mass/Vol] 0.20 mg/dL Normal 0.00-1.30 [facility] Comment on above: Order Comment: 120.1 Performed By: #### L 100.0500, L500.4050 #### [facility] [address] [place], [address] BUN/CRE 17.2 RATIO Normal 10-20 [facility] Comment on above: Order Comment: 120.1 Performed By: #### L 100.0500, L500.4050 #### [facility] [address] [place], [address] Calcium [Mass/Vol] 10.4 mg/dL Normal 7.6-11.0 [facility] Comment on above: Order Comment: 120.1 Performed By: #### L 100.0500, L500.4050 #### [facility] [address] [place], [address] Chloride [Moles/Vol] 101 mmol/L Normal 98-108 [facility] Comment on above: Order Comment: 120.1 Performed By: #### L 100.0500, L500.4050 #### [facility] [address] [place], [address] CO2 [Moles/Vol] 26.0 mmol/L Normal 21.0-32.0 [facility] Comment on above: Order Comment: 120.1 Performed By: #### L 100.0500, L500.4050 #### [facility] [address] [place], [address] Creatinine [Mass/Vol] 0.77 mg/dL Normal 0.70-1.20 [facility] Comment on above: Order Comment: 120.1 Performed By: #### L 100.0500, L500.4050 #### [facility] [address] [place], [address] GAP 12 Normal 5-15 [facility] Comment on above: Order Comment: 120.1 Performed By: #### L 100.0500, L500.4050 #### [facility] [address] [place], [address] GFR/1.73 sq M.predicted among non-blacks MDRD (S/P/Bld) [Vol rate/Area] 84 mL/min/{1.73_m2} Normal >60 [facility] Comment on above: Order Comment: 120.1 Result Comment: mL/m in/1.73m2 CKD-EPI Creatinine Equation (2020) Performed By: #### L 100.0500, L500.4050 #### [facility] [address] [place], [address] Globulin (S) [Mass/Vol] 3.7 g/dL Normal 2.2-4.2 [facility] Comment on above: Order Comment: 120.1 Performed By: #### L 100.0500, L500.4050 #### [facility] [address] [place], [address] Glucose [Mass/Vol] 111 mg/dL High 70-99 [facility] Comment on above: Order Comment: 120.1 Performed By: #### L 100.0500, L500.4050 #### [facility] [address] [place], [address] Potassium [Moles/Vol] 4.5 mmol/L Normal 3.3-5.1 [facility] Comment on above: Order Comment: 120.1 Performed By: #### L 100.0500, L500.4050 #### [facility] [address] [place], [address] Sodium [Moles/Vol] 138 mmol/L Normal 133-145 [facility] Comment on above: Order Comment: 120.1 Performed By: #### L 100.0500, L500.4050 #### [facility] [address] [place], [address] T PROT 7.7 g/dL Normal 5.9-8.4 [facility] Comment on above: Order Comment: 120.1 Performed By: #### L 100.0500, L500.4050 #### [facility] [address] [place], [address] Urea nitrogen [Mass/Vol] 13 mg/dL Normal 4-19 [facility] Comment on above: Order Comment: 120.1 Performed By: #### L 100.0500, L500.4050 #### [facility] [address] [place], [address] Valproic Acid (Depakene) Lev alpa 10-01-2024 VALPROIC ACID 77 ug/mL Normal 50-100 [facility] Comment on above: Order Comment: 120.1 Result Comment: Valp roic Acid concentrations >100 ug/mL are potentially toxic. Performed By: #### L 100.0500, L500.4050 #### [facility] [address] [place], [address] Anion gap in Serum or Plasma Ordered By: Elisa Maldonado on 08-18-2024 Anion gap [Moles/Vol] 13 mmol/L 5-15 [facility] Automated blood erythrocyte countOrdered By: Elisa Maldonado on 08-18-2024 RBC (Bld) [#/Vol] 4.09 10*6/uL Low 4.2-5.4 [facility] Comment on above: Order Comment: 120.1 Performed By: #### L 100.0500, L500.4050 #### [facility] [address] [place], [place], [address] Automated blood hematocrit ( percentage)Ordered By: Elisa Maldonado on 08-18-2024 Hematocrit (Bld) [Volume fraction] 33.5 % Low 37-47 [facility] Comment on above: Order Comment: 120.1 Performed By: #### L 100.0500, L500.4050 #### [facility] [address] [place], [address] BUN/creatinine ratioOrdered By: Elisa Maldonado on 08-18-2024 Urea nitrogen/Creatinine [Mass ratio] 20.2 mg/mg High 10-20 [facility] Bilirubin, totalOrdered By: Elisa Maldonado on 08-18-2024 Bilirubin [Mass/Vol] 0.23 mg/dL Normal 0.00-1.30 [facility] Comment on above: Order Comment: 120.1 Performed By: #### L 100.0500, L500.4050 #### [facility] [address] [place], [address] CBC-Complete Blood Cnt No Di ffon 08-18-2024 RDW SD 44.9 fl High 35.1-43.9 [facility] Comment on above: Order Comment: 120.1 Performed By: #### L 100.0500, L500.4050 #### [facility] [address] [place], [address] Carbon dioxide, total [Moles /volume] in Central venous bloodOrdered By: Elisa Maldonado on 08-18-2024 CO2 [Moles/Vol] 24.0 mmol/L Normal 21.0-32.0 [facility] Comment on above: Order Comment: 120.1 Performed By: #### L 100.0500, L500.4050 #### [facility] [address] [place], [address] Chloride assayOrdered By: Lanette Maldonado on 08-18-2024 Chloride [Moles/Vol] 101 mmol/L Normal 98-108 [facility] Comment on above: Order Comment: 120.1 Performed By: #### L 100.0500, L500.4050 #### [facility] [address] [place], [address] Comprehensive Metabolic Prof ilon 08-18-2024 ALK PHOS 81 U/L Normal 35-104 [facility] Comment on above: Order Comment: 120.1 Performed By: #### L 100.0500, L500.4050 #### [facility] [address] [place], [address] BUN/CRE 20.2 RATIO High 10-20 [facility] Comment on above: Order Comment: 120.1 Performed By: #### L 100.0500, L500.4050 #### [facility] [address] [place], [address] GAP 13 Normal 5-15 [facility] Comment on above: Order Comment: 120.1 Performed By: #### L 100.0500, L500.4050 #### [facility] [address] [place], [address] Potassium [Moles/Vol] 4.0 mmol/L Normal 3.3-5.1 [facility] Comment on above: Order Comment: 120.1 Performed By: #### L 100.0500, L500.4050 #### [facility] [address] [place], [address] T PROT 7.7 g/dL Normal 5.9-8.4 [facility] Comment on above: Order Comment: 120.1 Performed By: #### L 100.0500, L500.4050 #### [facility] [address] [place], [address] Comprehensive Metabolic Prof ilOrdered By: Elisa Maldonado on 08-18-2024 AST [Catalytic activity/Vol] 52 U/L High <=31 [facility] Comment on above: Order Comment: 120.1 Performed By: #### L 100.0500, L500.4050 #### [facility] [address] [place], [address] Erythrocyte distribution wid th ratioOrdered By: Elisa Maldonado on 08-18-2024 Erythrocyte distribution width (RBC) [Ratio] 15.3 % High 11.6-14.6 [facility] Comment on above: Order Comment: 120.1 Performed By: #### L 100.0500, L500.4050 #### [facility] [address] [place], [address] Erythrocyte distribution wid th standard deviationOrdered By: Elisa Maldonado on 08-18-2024 Erythrocyte distribution width (RBC) [Ratio] 44.9 fl High 35.1-43.9 [facility] Glomerular filtration rate ( GFR) estimation/1.73 sq m using serum, plasma, or whole bOrdered By: Elisa Maldonado on 08-18-2024 GFR/1.73 sq M.predicted among non-blacks MDRD (S/P/Bld) [Vol rate/Area] 81 mL/min/{1.73_m2} Normal >60 [facility] Comment on above: mL/min/1.73m2 CKD-EP I Creatinine Equation (2020) Order Comment: 120.1 Result Comment: mL/m in/1.73m2 CKD-EPI Creatinine Equation (2020) Performed By: #### L 100.0500, L500.4050 #### [facility] [address] [place], [address] Hemoglobin measurementOrdere d By: Elisa Maldonado on 08-18-2024 Hemoglobin (Bld) [Mass/Vol] 10.8 g/dL Low 12.0-15.0 [facility] Comment on above: Order Comment: 120.1 Performed By: #### L 100.0500, L500.4050 #### [facility] [address] [place], [address] MCV (mean corpuscular volume ) determinationOrdered By: Elisa Maldonado on 08-18-2024 MCV (RBC) [Entitic vol] 81.9 fL Normal 81-[address] [facility] Comment on above: Order Comment: 120.1 Performed By: #### L 100.0500, L500.4050 #### [facility] [address] [place], [address] Mean corpuscular hemoglobin (MCH) determinationOrdered By: Elisa Maldonado on 08-18-2024 MCH (RBC) [Entitic mass] 26.4 pg Low 27.0-32.0 [facility] Comment on above: Order Comment: 120.1 Performed By: #### L 100.0500, L500.4050 #### [facility] [address] [place], [address] Mean corpuscular hemoglobin concentration (MCHC) determinationOrdered By: Elisa Maldonado on 08-18-2024 MCHC (RBC) [Mass/Vol] 32.2 g/dL Normal 32-36 [facility] Comment on above: Order Comment: 120.1 Performed By: #### L 100.0500, L500.4050 #### [facility] [address] [place], [address] Mean platelet volume determi nationOrdered By: Elisa Maldonado on 08-18-2024 Platelet mean volume (Bld) [Entitic vol] 10.1 fL Normal 6.2-12.0 [facility] Comment on above: Order Comment: 120.1 Performed By: #### L 100.0500, L500.4050 #### [facility] [address] [place], [address] Platelet countOrdered By: Lanette Maldonado on 08-18-2024 Platelets (Bld) [#/Vol] 295 10*3/uL Normal 150-450 [facility] Comment on above: Order Comment: 120.1 Performed By: #### L 100.0500, L500.4050 #### [facility] [address] [place], [address] Potassium measurement (mass/ volume)Ordered By: Elisa Maldonado on 08-18-2024 Potassium (Unsp spec) [Mass/Vol] 4.0 mmol/L 3.3-5.1 [facility] Serum creatinine measurement (mass/volume)Ordered By: Elisa Maldonado on 08-18-2024 Creatinine [Mass/Vol] 0.80 mg/dL Normal 0.70-1.20 [facility] Comment on above: Order Comment: 120.1 Performed By: #### L 100.0500, L500.4050 #### [facility] [address] [place], [address] Serum globulin measurementOr dered By: Elisa Maldonado on 08-18-2024 Globulin (S) [Mass/Vol] 3.9 g/dL Normal 2.2-4.[address] [facility] Comment on above: Order Comment: 120.1 Performed By: #### L 100.0500, L500.4050 #### [facility] [address] [place], [address] Serum glucose measurement (m ass/volume)Ordered By: Elisa Maldonado on 08-18-2024 Glucose [Mass/Vol] 184 mg/dL High 70-99 [facility] Comment on above: Order Comment: 120.1 Performed By: #### L 100.0500, L500.4050 #### [facility] [address] [place], [address] Serum or plasma alanine curry otransferase (ALT) measurementOrdered By: Elisa Maldonado on 08-18-2024 ALT [Catalytic activity/Vol] 26 U/L Normal <=34 [facility] Comment on above: Order Comment: 120.1 Performed By: #### L 100.0500, L500.4050 #### [facility] [address] [place], [address] Serum or plasma albumin emily urement (mass/volume)Ordered By: Elisa Maldonado on 08-18-2024 Albumin [Mass/Vol] 3.7 g/dL Normal 3.4-4.8 [facility] Comment on above: Order Comment: 120.1 Performed By: #### L 100.0500, L500.4050 #### [facility] [address] [place], [address] Serum or plasma albumin/glob ulin mass ratioOrdered By: Elisa Maldonado on 08-18-2024 Albumin/Globulin [Mass ratio] 1.0 {ratio} Normal 0.9-2.4 [facility] Comment on above: Order Comment: 120.1 Performed By: #### L 100.0500, L500.4050 #### [facility] [address] [place], [address] Serum or plasma alkaline mago sphatase measurementOrdered By: Elisa Maldonado on 08-18-2024 ALP [Catalytic activity/Vol] 81 U/L 35-104 [facility] Serum or plasma calcium emily urement (mass/volume)Ordered By: Elisa Maldonado on 08-18-2024 Calcium [Mass/Vol] 10.4 mg/dL Normal 7.6-11.0 [facility] Comment on above: Order Comment: 120.1 Performed By: #### L 100.0500, L500.4050 #### [facility] [address] [place], [address] Serum or plasma urea nitroge n measurement (mass/volume)Ordered By: Elisa Maldonado on 08-18-2024 Urea nitrogen [Mass/Vol] 16 mg/dL Normal 4-19 [facility] Comment on above: Order Comment: 120.1 Performed By: #### L 100.0500, L500.4050 #### [facility] [address] [place], [address] Sodium levelOrdered By: Elisa Maldonado on 08-18-2024 Sodium [Moles/Vol] 138 mmol/L Normal 133-145 [facility] Comment on above: Order Comment: 120.1 Performed By: #### L 100.0500, L500.4050 #### [facility] [address] [place], [address] Total proteinOrdered By: Clif Maldonado on 08-18-2024 Protein [Mass/Vol] 7.7 g/dL 5.9-8.4 [facility] White blood cell (WBC) count Ordered By: Elisa Maldonado on 08-18-2024 WBC (Bld) [#/Vol] 9.2 10*3/uL Normal 4.4-11.0 [facility] Comment on above: Order Comment: 120.1 Performed By: #### L 100.0500, L500.4050 #### [facility] [address] [place], [address] Absolute lymphocyte countOrd ered By: Elisa Maldonado on 07-20-2024 Lymphocytes Auto (Unsp spec) [#/Vol] 3.36 10*3/uL 0.83-4.51 [facility] Absolute neutrophil countOrd ered By: Elisa Maldonado on 07-20-2024 Neutrophils (Bld) [#/Vol] 5.5 10*3/uL 2.0-7.7 [facility] Anion gap in Serum or Plasma Ordered By: Elisa Maldonado on 07-20-2024 Anion gap [Moles/Vol] 13 mmol/L 5-15 [facility] Automated lymphocyte count a s percentage of total leukocytesOrdered By: Elisa Maldonado on 07-20-2024 Lymphocytes/100 WBC Auto (Unsp spec) 33.3 % 19-41 [facility] BUN/creatinine ratioOrdered By: Elisa Maldonado on 07-20-2024 Urea nitrogen/Creatinine [Mass ratio] 26.1 mg/mg High 10-20 [facility] Basophil percentageOrdered B y: Elisa Maldonado on 07-20-2024 Basophils/100 WBC (Bld) 0.8 % 0-1 [facility] CBC W/Diff, Automatedon Absolute Lymph 3.36 X10 3/uL Normal 0.83-4.51 [facility] Comment on above: Order Comment: 120.1 Performed By: #### L 500.4050, L100.0500 #### [facility] [address] [place], [address] Absolute Neut 5.5 X10 3/uL Normal 2.0-7.7 [facility] Comment on above: Order Comment: 120.1 Performed By: #### L 500.4050, L100.0500 #### [facility] [address] [place], [address] Basophils/100 WBC (Bld) 0.8 % Normal 0-1 [facility] Comment on above: Order Comment: 120.1 Performed By: #### L 500.4050, L100.0500 #### [facility] [address] [place], [address] Eosinophils/100 WBC (Bld) 2.8 % Normal 0-5 [facility] Comment on above: Order Comment: 120.1 Performed By: #### L 500.4050, L100.0500 #### [facility] [address] [place], [address] Erythrocyte distribution width (RBC) [Ratio] 15.2 % High 11.6-14.6 [facility] [facility] Comment on above: Order Comment: 120.1 Performed By: #### L 500.4050, L100.0500 #### [facility] [address] [place], [address] Hematocrit (Bld) [Volume fraction] 38.4 % Normal 37-47 [facility] Comment on above: Order Comment: 120.1 Performed By: #### L 500.4050, L100.0500 #### [facility] [address] [place], [address] Hemoglobin (Bld) [Mass/Vol] 12.3 g/dL Normal 12.0-15.0 [facility] Comment on above: Order Comment: 120.1 Performed By: #### L 500.4050, L100.0500 #### [facility] [address] [place], [address] IG% 0.500 Normal 0.0-0.9 [facility] Comment on above: Order Comment: 120.1 Result Comment: IG% - Immature Granulocytes (promyelocytes, myelocytes and metamyelocytes) > 1% indicates that a LEFT SHIFT is Present. Performed By: #### L 500.4050, L100.0500 #### [facility] [address] [place], [address] Lymphocytes/100 WBC (Bld) 33.3 % Normal 19-41 [facility] Comment on above: Order Comment: 120.1 Performed By: #### L 500.4050, L100.0500 #### [facility] [address] [place], [address] MCH (RBC) [Entitic mass] 26.6 pg Low 27.0-32.0 [facility] Comment on above: Order Comment: 120.1 Performed By: #### L 500.4050, L100.0500 #### [facility] [address] [place], [address] MCHC (RBC) [Mass/Vol] 32.0 g/dL Normal 32-36 [facility] Comment on above: Order Comment: 120.1 Performed By: #### L 500.4050, L100.0500 #### [facility] [address] [place], [address] MCV (RBC) [Entitic vol] 83.1 fL Normal 81-99 [facility] Comment on above: Order Comment: 120.1 Performed By: #### L 500.4050, L100.0500 #### [facility] [address] [place], [address] Monocytes/100 WBC (Bld) 7.9 % Normal 0-[address] [facility] Comment on above: Order Comment: 120.1 Performed By: #### L 500.4050, L100.0500 #### [facility] [address] [place], [address] Neutrophils/100 WBC (Bld) 54.7 % Normal 47-70 [facility] Comment on above: Order Comment: 120.1 Performed By: #### L 500.4050, L100.0500 #### [facility] [address] [place], [address] Nucleated RBC (Bld) [#/Vol] 0 10*3/uL Normal 0-5 [facility] Comment on above: Order Comment: 120.1 Performed By: #### L 500.4050, L100.0500 #### [facility] [address] [place], [address] Platelet mean volume (Bld) [Entitic vol] 10.1 fL Normal 6.2-12.0 [facility] Comment on above: Order Comment: 120.1 Performed By: #### L 500.4050, L100.0500 #### [facility] [address] [place], [address] Platelets (Bld) [#/Vol] 319 10*3/uL Normal 150-450 [facility] Comment on above: Order Comment: 120.1 Performed By: #### L 500.4050, L100.0500 #### [facility] [address] [place], [address] RBC (Bld) [#/Vol] 4.62 10*6/uL Normal 4.2-5.4 [facility] Comment on above: Order Comment: 120.1 Performed By: #### L 500.4050, L100.0500 #### [facility] [address] [place], [address] RDW SD 45.8 fl High 35.1-43.9 [facility] Comment on above: Order Comment: 120.1 Performed By: #### L 500.4050, L100.0500 #### [facility] [address] [place], [address] WBC (Bld) [#/Vol] 10.1 10*3/uL Normal 4.4-11.0 [facility] Comment on above: Order Comment: 120.1 Performed By: #### L 500.4050, L100.0500 #### [facility] [address] [place], [address] Calculated total iron bindin g capacityOrdered By: Elisa Maldonado on 07-20-2024 Total Iron Binding Capacity 427 ug/dL 250-450 [facility] Carbon dioxide, total [Moles /volume] in Central venous bloodOrdered By: Elisa Maldonado on 07-20-2024 CO2 [Moles/Vol] 24.2 mmol/L 21.0-32.0 [facility] Chloride assayOrdered By: Lanette Maldonado on 07-20-2024 Chloride [Moles/Vol] 102 mmol/L 98-108 [facility] Creatinine Unsp time (U) [Ma ss/Vol]Ordered By: Elisa Maldonado on 07-20-2024 Creatinine (U) [Mass/Vol] 89.80 mg/dL 28.00-217.00 [facility] Eosinophil percentageOrdered By: Elisa Maldonado on 07-20-2024 Eosinophils/100 WBC (Bld) 2.8 % 0-5 [facility] Erythrocyte distribution wid th (RBC) [Ratio]Ordered By: Elisa Maldonado on 07-20-2024 Erythrocyte distribution width (RBC) [Entitic vol] 45.8 fL High 35.1-43.9 [facility] Erythrocyte distribution wid th ratioOrdered By: Elisa Maldonado on 07-20-2024 Erythrocyte distribution width (RBC) [Ratio] 15.2 % High 11.6-14.6 [facility] Erythrocyte distribution wid th standard deviationOrdered By: Elisa Maldonado on 07-20-2024 Erythrocyte distribution width (RBC) [Ratio] 45.8 fl High 35.1-43.9 [facility] Ferritinon 07-20-2024 Ferritin [Mass/Vol] 55 ng/mL Normal 22-378 [facility] Comment on above: Order Comment: 120.1 Performed By: #### L 100.0500, L500.4050 #### [facility] [address] [facility] [place], [address] GFR/1.73 sq M.predicted kojo g non-blacks MDRD (S/P/Bld) [Vol rate/Area]Ordered By: Elisa Maldonado on 07-20-2024 Estimated GFR (MDRD) Non-Af Amer 76 >60 [facility] Comment on above: mL/min/1.73m2 CKD-EP I Creatinine Equation (2020) Glomerular filtration rate ( GFR) estimation/1.73 sq m using serum, plasma, or whole bOrdered By: Elisa Maldonado on 07-20-2024 GFR/1.73 sq M.predicted among non-blacks MDRD (S/P/Bld) [Vol rate/Area] 76 mL/min/{1.73_m2} >60 [facility] Comment on above: mL/min/1.73m2 CKD-EP I Creatinine Equation (2020) Hematocrit Auto (Bld) [Volum e fraction]Ordered By: Elisa Maldonado on 07-20-2024 Hematocrit (Bld) [Volume fraction] 38.4 % 37-47 [facility] Hemoglobin measurementOrdere d By: Elisa Maldonado on 07-20-2024 Hemoglobin (Bld) [Mass/Vol] 12.3 g/dL 12.0-15.0 [facility] Immature granulocytes/100 WB C Auto (Bld)Ordered By: Elisa Maldonado on 07-20-2024 Immature granulocytes/100 WBC (Bld) 0.500 % 0.0-0.9 [facility] Comment on above: IG% - Immature Granu locytes (promyelocytes, myelocytes and metamyelocytes) > 1% indicates that a LEFT SHIFT is Present. Iron (Unsp spec) [Mass/Mass] Ordered By: Elisa Maldonado on 07-20-2024 Iron [Mass/Vol] 52 ug/dL 50-170 [facility] Iron measurement (mass/mass) Ordered By: Elisa Maldonado on 07-20-2024 Iron (Unsp spec) [Mass/Mass] 52 ug/dL 50-170 [facility] Iron saturation [Mass fracti on]Ordered By: Elisa Maldonado on 07-20-2024 Iron Saturation 12.2 % Low 13-59 [facility] Comment on above: Previous reported re sult: 12.0 %Edited by: YONATAN on 07/20/24:1019 AMENDED REPORT 07/20/24 1019 IRON SATURATION previously reported as: 12.0 L % Iron+Iron Binding Capacityon 07-20-2024 Iron [Mass/Vol] 52 ug/dL Normal 50-170 [facility] Comment on above: Order Comment: 120.1 Performed By: #### L 500.4050, L100.0500 #### [facility] [address] [place], [address] UIBC 375 ug/dL Normal 228-428 [facility] Comment on above: Order Comment: 120.1 Performed By: #### L 500.4050, L100.0500 #### [facility] [address] [place], [address] Lymphocytes Auto (Unsp spec) [#/Vol]Ordered By: Elisa Maldonado on 07-20-2024 Lymphocytes (Bld) [#/Vol] 3.36 10*3/uL 0.83-4.51 [facility] Lymphocytes/100 WBC Auto (Un sp spec)Ordered By: Elisa Maldonado on 07-20-2024 Lymphocytes/100 WBC (Bld) 33.3 % 19-41 [facility] MCV (mean corpuscular volume ) determinationOrdered By: Elisa Maldonado on 07-20-2024 MCV (RBC) [Entitic vol] 83.1 fL 81-99 [facility] Mean corpuscular hemoglobin (MCH) determinationOrdered By: Elisa Maldonado on 07-20-2024 MCH (RBC) [Entitic mass] 26.6 pg Low 27.0-32.0 [facility] Mean corpuscular hemoglobin concentration (MCHC) determinationOrdered By: Elisa Maldonado on 07-20-2024 MCHC (RBC) [Mass/Vol] 32.0 g/dL 32-36 [facility] Mean platelet volume determi nationOrdered By: Elisa Maldonado on 07-20-2024 Platelet mean volume (Bld) [Entitic vol] 10.1 fL 6.2-12.0 [facility] Monocyte percentageOrdered B y: Elisa Maldonado on 07-20-2024 Monocytes/100 WBC (Bld) 7.9 % 0-10 [facility] Neutrophil percentageOrdered By: Elisa Maldonado on 07-20-2024 Neutrophils/100 WBC (Bld) 54.7 % 47-70 [facility] No Panel InformationOrdered By: Elisa Maldonado on 07-20-2024 Unsaturated Iron Binding Capacity 375 ug/dL 228-428 [facility] Nucleated red blood cell per centageOrdered By: Elisa Maldonado on 07-20-2024 Nucleated RBC/100 WBC (Bld) [Ratio] 0 % 0-5 [facility] PTH intactOrdered By: Elisa braga on 07-20-2024 Parathyroid Hormone (Intact) 67 pg/mL High [facility] PTHINon 07-20-2024 PTH 67 pg/mL High [facility] Comment on above: Performed By: #### L 500.4050, L100.0500 #### [facility] [address] [place], [place], [id number] Platelet countOrdered By: Lanette Maldonado on 07-20-2024 Platelets (Bld) [#/Vol] 319 10*3/uL 150-450 [facility] Potassium (Unsp spec) [Mass/ Vol]Ordered By: Elisa Maldonado on 07-20-2024 Potassium [Moles/Vol] 4.4 mmol/L 3.3-5.1 [facility] Potassium measurement (mass/ volume)Ordered By: Elisa Maldonado on 07-20-2024 Potassium (Unsp spec) [Mass/Vol] 4.4 mmol/L 3.3-5.1 [facility] Protein+Creatinine Ratio,Uri neon 07-20-2024 PROT:CRE RATIO 160 mg/g CRE Normal 0-200 [facility] Comment on above: Performed By: #### L 100.0500, L500.4050 #### [facility] [address] [place], [address] Protein (U) [Mass/Vol] 14.4 mg/dL High 0.0-12.0 [facility] Comment on above: Performed By: #### L 100.0500, L500.4050 #### [facility] [address] [place], [address] UR CREAT 89.80 mg/dL Normal 28.00-217.00 [facility] Comment on above: Performed By: #### L 100.0500, L500.4050 #### [facility] [address] [place], [address] Protein/Creatinine (U) [Mass ratio]Ordered By: Elisa Maldonado on 07-20-2024 Urine Protein/Creatinine Ratio 160 mg/g CRE 0-200 [facility] RBC Auto (Bld) [#/Vol]Ordere d By: Elisa Maldonado on 07-20-2024 RBC (Bld) [#/Vol] 4.62 10*6/uL 4.2-5.4 [facility] Random urine creatinine emily urement (mass/volume)Ordered By: Elisa Maldonado on 07-20-2024 Creatinine Unsp time (U) [Mass/Vol] 89.80 mg/dL 28.00-217.00 [facility] Renal Profileon 07-20-2024 Phosphate [Mass/Vol] 3.1 mg/dL Normal 2.7-4.5 [facility] Comment on above: Order Comment: 120.1 Performed By: #### L 500.4050, L100.0500 #### [facility] [place], [address] Serum creatinine measurement (mass/volume)Ordered By: Elisa Maldonado on 07-20-2024 Creatinine [Mass/Vol] 0.84 mg/dL 0.70-1.20 [facility] Serum glucose measurement (m ass/volume)Ordered By: Elisa Maldonado on 07-20-2024 Glucose [Mass/Vol] 117 mg/dL High 70-99 [facility] Serum or plasma albumin emily urement (mass/volume)Ordered By: Elisa Maldonado on 07-20-2024 Albumin [Mass/Vol] 4.0 g/dL 3.4-4.8 [facility] Serum or plasma calcium emily urement (mass/volume)Ordered By: Elisa Maldonado on 07-20-2024 Calcium [Mass/Vol] 10.8 mg/dL 7.6-11.0 [facility] Serum or plasma ferritin alberto surement (mass/volume)Ordered By: Elisa Maldonado on 07-20-2024 Ferritin [Mass/Vol] 55 ng/mL 22-378 [facility] Serum or plasma iron saturat ion measurement (mass fraction)Ordered By: Elisa Maldonado on 07-20-2024 Iron saturation [Mass fraction] 12.2 % Low 13-59 [facility] Comment on above: Previous reported re sult: 12.0 %Edited by: YONATAN on 07/20/24:1019 AMENDED REPORT 07/20/24 1019 IRON SATURATION previously reported as: 12.0 L % Serum or plasma urea nitroge n measurement (mass/volume)Ordered By: Elisa Maldonado on 07-20-2024 Urea nitrogen [Mass/Vol] 22 mg/dL High 4-19 [facility] Serum or plasma uric acid me asurement (mass/volume)Ordered By: Elisa Maldonado on 07-20-2024 Urate [Mass/Vol] 7.5 mg/dL High 2.6-6.0 [facility] Comment on above: The drugs N-Acetylcy steine and Metamizole may falsely depress this assay. Serum phosphorus measurement Ordered By: Elisa Maldonaod on 07-20-2024 Phosphorus Level 3.1 mg/dL 2.7-4.5 [facility] Sodium levelOrdered By: Elisa Maldonado on 07-20-2024 Sodium [Moles/Vol] 138 mmol/L 133-145 [facility] Uric Acidon 07-20-2024 URIC 7.5 mg/dL High 2.6-6.0 [facility] Comment on above: Order Comment: 120.1 Result Comment: The drugs N-Acetylcysteine and Metamizole may falsely depress this assay. Performed By: #### L 100.0500, L500.4050 #### [facility] [address] [place], [place], [id number] Urine protein measurement (m ass/volume)Ordered By: Elisa Maldonado on 07-20-2024 Protein (U) [Mass/Vol] 14.4 mg/dL High 0.0-12.0 [facility] Urine protein/creatinine mas s ratioOrdered By: Elisa Maldonado on 07-20-2024 Protein/Creatinine (U) [Mass ratio] 160 mg/g CRE 0-200 [facility] White blood cell (WBC) count Ordered By: Elisa Maldonado on 07-20-2024 WBC (Bld) [#/Vol] 10.1 10*3/uL 4.4-11.0 [facility] Anion gap in Serum or Plasma Ordered By: Elisa Maldonado on 06-22-2024 Anion gap [Moles/Vol] 13 mmol/L 5-15 [facility] BUN/creatinine ratioOrdered By: Elisa Maldonado on 06-22-2024 Urea nitrogen/Creatinine [Mass ratio] 39.3 mg/mg High 10-20 [facility] Bilirubin, totalOrdered By: Elisa Maldonado on 06-22-2024 Bilirubin [Mass/Vol] mg/dL 0.00-1.30 [facility] CBC-Complete Blood Cnt No Di ffon 06-22-2024 Erythrocyte distribution width (RBC) [Ratio] 14.8 % High 11.6-14.6 [facility] Comment on above: Order Comment: 120.1 Performed By: #### L 100.0500, L500.4050 #### [facility] [address] [place], [address] Hematocrit (Bld) [Volume fraction] 31.4 % Low 37-47 [facility] Comment on above: Order Comment: 120.1 Performed By: #### L 100.0500, L500.4050 #### [facility] [address] [place], [address] Hemoglobin (Bld) [Mass/Vol] 10.2 g/dL Low 12.0-15.0 [facility] Comment on above: Order Comment: 120.1 Performed By: #### L 100.0500, L500.4050 #### [facility] [address] [place], [address] MCH (RBC) [Entitic mass] 25.8 pg Low 27.0-32.0 [facility] Comment on above: Order Comment: 120.1 Performed By: #### L 100.0500, L500.4050 #### [facility] [address] [place], [address] MCHC (RBC) [Mass/Vol] 32.5 g/dL Normal 32-36 [facility] Comment on above: Order Comment: 120.1 Performed By: #### L 100.0500, L500.4050 #### [facility] [address] [place], [address] MCV (RBC) [Entitic vol] 79.3 fL Low 81-[address] [facility] Comment on above: Order Comment: 120.1 Performed By: #### L 100.0500, L500.4050 #### [facility] [address] [place], [address] Platelet mean volume (Bld) [Entitic vol] 10.4 fL Normal 6.2-12.0 [facility] Comment on above: Order Comment: 120.1 Performed By: #### L 100.0500, L500.4050 #### [facility] [address] [place], [address] Platelets (Bld) [#/Vol] 248 10*3/uL Normal 150-450 [facility] Comment on above: Order Comment: 120.1 Performed By: #### L 100.0500, L500.4050 #### [facility] [address] [place], [address] RBC (Bld) [#/Vol] 3.96 10*6/uL Low 4.2-5.4 [facility] Comment on above: Order Comment: 120.1 Performed By: #### L 100.0500, L500.4050 #### [facility] [address] [place], [address] RDW SD 42.9 fl Normal 35.1-43.9 [facility] Comment on above: Order Comment: 120.1 Performed By: #### L 100.0500, L500.4050 #### [facility] [address] [place], [address] WBC (Bld) [#/Vol] 8.9 10*3/uL Normal 4.4-11.0 [facility] Comment on above: Order Comment: 120.1 Performed By: #### L 100.0500, L500.4050 #### [facility] [address] [place], [address] Carbon dioxide, total [Moles /volume] in Central venous bloodOrdered By: Elisa Maldonado on 06-22-2024 CO2 [Moles/Vol] 22.0 mmol/L 21.0-32.0 [facility] Chloride assayOrdered By: Lanette Maldonado on 06-22-2024 Chloride [Moles/Vol] 102 mmol/L 98-108 [facility] Comprehensive Metabolic Prof ilon 06-22-2024 Albumin [Mass/Vol] 3.2 g/dL Low 3.4-4.8 [facility] Comment on above: Order Comment: 120.1 Performed By: #### L 100.0500, L500.4050 #### [facility] [address] [place], [address] Albumin/Globulin [Mass ratio] 0.9 {ratio} Normal 0.9-2.4 [facility] Comment on above: Order Comment: 120.1 Performed By: #### L 100.0500, L500.4050 #### [facility] [address] [place], [address] ALK PHOS 67 U/L Normal 35-104 [facility] Comment on above: Order Comment: 120.1 Performed By: #### L 100.0500, L500.4050 #### [facility] [address] [place], [address] ALT [Catalytic activity/Vol] 19 U/L Normal <=34 [facility] Comment on above: Order Comment: 120.1 Performed By: #### L 100.0500, L500.4050 #### [facility] [address] [place], [address] AST [Catalytic activity/Vol] 43 U/L High <=31 [facility] Comment on above: Order Comment: 120.1 Performed By: #### L 100.0500, L500.4050 #### [facility] [address] [place], [address] BUN/CRE 39.3 RATIO High 10-20 [facility] Comment on above: Order Comment: 120.1 Performed By: #### L 100.0500, L500.4050 #### [facility] [address] [place], [address] Calcium [Mass/Vol] 9.7 mg/dL Normal 7.6-11.0 [facility] Comment on above: Order Comment: 120.1 Performed By: #### L 100.0500, L500.4050 #### [facility] [address] [place], [address] Chloride [Moles/Vol] 102 mmol/L Normal 98-108 [facility] Comment on above: Order Comment: 120.1 Performed By: #### L 100.0500, L500.4050 #### [facility] [address] [place], [address] CO2 [Moles/Vol] 22.0 mmol/L Normal 21.0-32.0 [facility] Comment on above: Order Comment: 120.1 Performed By: #### L 100.0500, L500.4050 #### [facility] [address] [place], [address] Creatinine [Mass/Vol] 0.72 mg/dL Normal 0.70-1.20 [facility] Comment on above: Order Comment: 120.1 Performed By: #### L 100.0500, L500.4050 #### [facility] [address] [place], [address] GAP 13 Normal 5-15 [facility] Comment on above: Order Comment: 120.1 Performed By: #### L 100.0500, L500.4050 #### [facility] [address] [place], [address] GFR/1.73 sq M.predicted among non-blacks MDRD (S/P/Bld) [Vol rate/Area] 91 mL/min/{1.73_m2} Normal >60 [facility] Comment on above: Order Comment: 120.1 Result Comment: mL/m in/1.73m2 CKD-EPI Creatinine Equation (2020) Performed By: #### L 100.0500, L500.4050 #### [facility] [address] [place], [address] Globulin (S) [Mass/Vol] 3.6 g/dL Normal 2.2-4.[address] [facility] Comment on above: Order Comment: 120.1 Performed By: #### L 100.0500, L500.4050 #### [facility] [address] [place], [address] Glucose [Mass/Vol] 104 mg/dL High 70-99 [facility] Comment on above: Order Comment: 120.1 Performed By: #### L 100.0500, L500.4050 #### [facility] [address] [place], [address] Potassium [Moles/Vol] 3.7 mmol/L Normal 3.3-5.1 [facility] Comment on above: Order Comment: 120.1 Performed By: #### L 100.0500, L500.4050 #### [facility] [address] [place], [address] Sodium [Moles/Vol] 137 mmol/L Normal 133-145 [facility] Comment on above: Order Comment: 120.1 Performed By: #### L 100.0500, L500.4050 #### [facility] [address] [place], [address] T BILI < 0.15 Normal 0.00-1.30 [facility] Comment on above: Order Comment: 120.1 Performed By: #### L 100.0500, L500.4050 #### [facility] [address] [place], [address] T PROT 6.8 g/dL Normal 5.9-8.4 [facility] Comment on above: Order Comment: 120.1 Performed By: #### L 100.0500, L500.4050 #### [facility] [address] [place], [address] Urea nitrogen [Mass/Vol] 28 mg/dL High 4-19 [facility] Comment on above: Order Comment: 120.1 Performed By: #### L 100.0500, L500.4050 #### [facility] [place], [address] Erythrocyte distribution wid th (RBC) [Ratio]Ordered By: Elisa Maldonado on 06-22-2024 Erythrocyte distribution width (RBC) [Entitic vol] 42.9 fL 35.1-43.9 [facility] Erythrocyte distribution wid th ratioOrdered By: Elisa Maldonado on 06-22-2024 Erythrocyte distribution width (RBC) [Ratio] 14.8 % High 11.6-14.6 [facility] Erythrocyte distribution wid th standard deviationOrdered By: Elisa Maldonado on 06-22-2024 Erythrocyte distribution width (RBC) [Ratio] 42.9 fl 35.1-43.9 [facility] GFR/1.73 sq M.predicted kojo g non-blacks MDRD (S/P/Bld) [Vol rate/Area]Ordered By: Elisa Maldonado on 06-22-2024 Estimated GFR (MDRD) Non-Af Amer 91 >60 [facility] Comment on above: mL/min/1.73m2 CKD-EP I Creatinine Equation (2020) Glomerular filtration rate ( GFR) estimation/1.73 sq m using serum, plasma, or whole bOrdered By: Elisa Maldonado on 06-22-2024 GFR/1.73 sq M.predicted among non-blacks MDRD (S/P/Bld) [Vol rate/Area] 91 mL/min/{1.73_m2} >60 [facility] Comment on above: mL/min/1.73m2 CKD-EP I Creatinine Equation (2020) Hematocrit Auto (Bld) [Volum e fraction]Ordered By: Elisa Maldonado on 06-22-2024 Hematocrit (Bld) [Volume fraction] 31.4 % Low 37-47 [facility] Hemoglobin measurementOrdere d By: Elisa Maldonado on 06-22-2024 Hemoglobin (Bld) [Mass/Vol] 10.2 g/dL Low 12.0-15.0 [facility] - Chemistry and C hemistry - challengeOrdered By: Elisa Maldonado on 06-22-2024 AST [Catalytic activity/Vol] 43 U/L High <32 [facility] MCV (mean corpuscular volume ) determinationOrdered By: Elisa Maldonado on 06-22-2024 MCV (RBC) [Entitic vol] 79.3 fL Low 81-99 [facility] Mean corpuscular hemoglobin (MCH) determinationOrdered By: Elisa Maldonado on 06-22-2024 MCH (RBC) [Entitic mass] 25.8 pg Low 27.0-32.0 [facility] Mean corpuscular hemoglobin concentration (MCHC) determinationOrdered By: Elisa Maldonado on 06-22-2024 MCHC (RBC) [Mass/Vol] 32.5 g/dL 32-36 [facility] Mean platelet volume determi nationOrdered By: Elisa Maldonado on 06-22-2024 Platelet mean volume (Bld) [Entitic vol] 10.4 fL 6.2-12.0 [facility] Platelet countOrdered By: Lanette Maldonado on 06-22-2024 Platelets (Bld) [#/Vol] 248 10*3/uL 150-450 [facility] Potassium (Unsp spec) [Mass/ Vol]Ordered By: Elisa Maldonado on 06-22-2024 Potassium [Moles/Vol] 3.7 mmol/L 3.3-5.1 [facility] Potassium measurement (mass/ volume)Ordered By: Elisa Maldonado on 06-22-2024 Potassium (Unsp spec) [Mass/Vol] 3.7 mmol/L 3.3-5.1 [facility] RBC Auto (Bld) [#/Vol]Ordere d By: Elisa Maldonado on 06-22-2024 RBC (Bld) [#/Vol] 3.96 10*6/uL Low 4.2-5.4 [facility] Serum creatinine measurement (mass/volume)Ordered By: Elisa Maldonado on 06-22-2024 Creatinine [Mass/Vol] 0.72 mg/dL 0.70-1.20 [facility] Serum globulin measurementOr dered By: Elisa Maldonado on 06-22-2024 Globulin (S) [Mass/Vol] 3.6 g/dL 2.2-4.[address] [facility] Serum glucose measurement (m ass/volume)Ordered By: Elisa Maldonado on 06-22-2024 Glucose [Mass/Vol] 104 mg/dL High 70-99 [facility] Serum or plasma alanine curry otransferase (ALT) measurementOrdered By: Elisa Maldonado on 06-22-2024 ALT [Catalytic activity/Vol] 19 U/L <35 [facility] Serum or plasma albumin emily urement (mass/volume)Ordered By: Elisa Maldonado on 06-22-2024 Albumin [Mass/Vol] 3.2 g/dL Low 3.4-4.8 [facility] Serum or plasma albumin/glob ulin mass ratioOrdered By: Elisa Maldonado on 06-22-2024 Albumin/Globulin [Mass ratio] 0.9 {ratio} 0.9-2.4 [facility] Serum or plasma alkaline mago sphatase measurementOrdered By: Elisa Maldonado on 06-22-2024 ALP [Catalytic activity/Vol] 67 U/L 35-104 [facility] Serum or plasma calcium emily urement (mass/volume)Ordered By: Elisa Maldonado on 06-22-2024 Calcium [Mass/Vol] 9.7 mg/dL 7.6-11.0 [facility] Serum or plasma urea nitroge n measurement (mass/volume)Ordered By: Elisa Maldonado on 06-22-2024 Urea nitrogen [Mass/Vol] 28 mg/dL High 4-19 [facility] Sodium levelOrdered By: Elisa Maldonado on 06-22-2024 Sodium [Moles/Vol] 137 mmol/L 133-145 [facility] Total proteinOrdered By: Clif Maldonado on 06-22-2024 Protein [Mass/Vol] 6.8 g/dL 5.9-8.4 [facility] White blood cell (WBC) count Ordered By: Elisa Maldonado on 06-22-2024 WBC (Bld) [#/Vol] 8.9 10*3/uL 4.4-11.0 [facility] [id number] DOrdered By: Shelia Maldonado on 05-21-2024 Vitamin D 25-Hydroxy 37.1 ng/mL [facility] Comment on above: Vitamin D 25(OH) Sta tus Range Deficiency <20 ng/mL (50nmol/L) Insufficiency 20 - 30 ng/mL (50 - 75 nmol/L) Sufficiency 30 - 100 ng/mL (75 - 250 nmol/L) Toxicity >100 ng/mL (>250 nmol/L) High density lipoprotein (HD L) measurementOrdered By: Elisa Maldonado on 05-21-2024 Cholesterol in HDL [Mass/Vol] 41 mg/dL >40 [facility] Comment on above: The drugs N-Acetylcy steine and Metamizole may falsely depress this assay. Reference Range HDL <40 mg/dL Low HDL Cholesterol HDL >or= 60 mg/dL High HDL Cholesterol Lipid Profileon 05-21-2024 Cholesterol [Mass/Vol] 96 mg/dL Normal 200 [facility] Comment on above: Order Comment: 120.1 Result Comment: <200 mg/dL Desirable 200-240 mg/dL Borderline >240 mg/dL High Risk Performed By: #### L 501.8100, L500.4100, L506.1000 #### [facility] [address] [place], [address] Cholesterol in HDL [Mass/Vol] 41 mg/dL Normal [facility] Comment on above: Order Comment: 120.1 Result Comment: The drugs N-Acetylcysteine and Metamizole may falsely depress this assay. Reference Range HDL <40 mg/dL Low HDL Cholesterol HDL >or= 60 mg/dL High HDL Cholesterol Performed By: #### L 501.8100, L500.4100, L506.1000 #### [facility] [address] [place], [address] Cholesterol in LDL [Mass/Vol] 12 mg/dL Normal 0-130 [facility] Comment on above: Order Comment: 120.1 Performed By: #### L 501.8100, L500.4100, L506.1000 #### [facility] [address] [place], [address] Cholesterol in VLDL [Mass/Vol] 43 mg/dL High 5-40 [facility] Comment on above: Order Comment: 120.1 Performed By: #### L 501.8100, L500.4100, [id number] #### [facility] [address] [place], [address] Triglyceride [Mass/Vol] 216 mg/dL High [facility] Comment on above: Order Comment: 120.1 Result Comment: The drugs N-Acetylcysteine and Metamizole may falsely depress this assay. Serum Triglycerides Reference Interval Normal <150 mg/dL Borderline high 150 - 199 mg/dL High 200 - 499 mg/dL Very High > or = 500 mg/dL Performed By: #### L 501.8100, L500.4100, L506.1000 #### [facility] [address] [place], [place], [id number] Low density lipoprotein (LDL ) cholesterol measurementOrdered By: Elisa Maldonado on 05-21-2024 Cholesterol in LDL [Mass/Vol] 12 mg/dL 0-130 [facility] Serum or plasma cholesterol measurement (mass/volume)Ordered By: Elisa Maldonado on 05-21-2024 Cholesterol [Mass/Vol] 96 mg/dL <200 [facility] Comment on above: <200 mg/dL Desirable 200-240 mg/dL Borderline >240 mg/dL High Risk Triglycerides measurementOrd ered By: Elisa Maldonado on 05-21-2024 Triglyceride [Mass/Vol] 216 mg/dL High <199 [facility] Comment on above: The drugs N-Acetylcy steine and Metamizole may falsely depress this assay.Serum Triglycerides Reference Interval Normal <150 mg/dL Borderline high 150 - 199 mg/dL High 200 - 499 mg/dL Very High > or = 500 mg/dL Valproate levelOrdered By: Shelia Maldonado on 05-21-2024 Valproic Acid (Depakene) Level 68 ug/mL 50-100 [facility] Valproic Acid (Depakene) Lev alpa 05-21-2024 VALPROIC ACID 68 ug/mL Normal 50-100 [facility] Comment on above: Order Comment: 120.1 Performed By: #### L 501.8100, L500.4100, [id number] #### [facility] [address] [place], [place], [address] Very low density lipoprotein (VLDL) cholesterol measurementOrdered By: Elisa Maldonado on 05-21-2024 Very low density lipoprotein (VLDL) cholesterol measurement 43 mg/dL High 5-40 [facility] VLDL Cholesterol 43 mg/dL High 5-40 [facility] Vitamin D,25 Hydroxyon 05-21 Vitamin D 25-OH 37.1 ng/mL Normal [facility] Comment on above: Order Comment: 120.1 Result Comment: Debo min D 25(OH) Status Range Deficiency <20 ng/mL (50nmol/L) Insufficiency 20 - 30 ng/mL (50 - 75 nmol/L) Sufficiency 30 - 100 ng/mL (75 - 250 nmol/L) Toxicity >100 ng/mL (>250 nmol/L) Performed By: #### L 501.8100, L500.4100, [id number] #### [facility] [address] [place], [address] Albumin to globulin ratioOrd ered By: Elisa Maldonado on 04-20-2024 Albumin/Globulin [Mass ratio] 0.6 {ratio} Low 0.9-2.4 [facility] Bilirubin, totalOrdered By: Elisa Maldonado on 04-20-2024 Bilirubin [Mass/Vol] 0.30 mg/dL 0.20-1.00 [facility] Comment on above: For patients on eltr ombopag therapy, use of Dimension [place] TBIL is not recommended. Blood urea nitrogen (BUN)/cr eatinine ratioOrdered By: Elisa Maldonado on 04-20-2024 Urea nitrogen/Creatinine [Mass ratio] 30.5 mg/mg High 10-20 [facility] CBC-Complete Blood Cnt No Di ffon 04-20-2024 Erythrocyte distribution width (RBC) [Ratio] 14.4 % Normal 11.6-14.6 [facility] Comment on above: Order Comment: 120.1 Performed By: #### L 100.0500, L500.4050 #### [facility] [address] [place], [address] Hematocrit (Bld) [Volume fraction] 33.1 % Low 37-47 [facility] Comment on above: Order Comment: 120.1 Performed By: #### L 100.0500, L500.4050 #### [facility] [address] [place], [address] Hemoglobin (Bld) [Mass/Vol] 10.6 g/dL Low 12.0-15.0 [facility] Comment on above: Order Comment: 120.1 Performed By: #### L 100.0500, L500.4050 #### [facility] [address] [place], [address] MCH (RBC) [Entitic mass] 26.0 pg Low 27.0-32.0 [facility] Comment on above: Order Comment: 120.1 Performed By: #### L 100.0500, [id number] #### [facility] [address] [place], [address] MCHC (RBC) [Mass/Vol] 32.0 g/dL Normal 32-36 [facility] Comment on above: Order Comment: 120.1 Performed By: #### L 100.0500, [id number] #### [facility] [address] [place], [address] MCV (RBC) [Entitic vol] 81.1 fL Normal 81-99 [facility] Comment on above: Order Comment: 120.1 Performed By: #### L 100.0500, L500.4050 #### [facility] [address] [place], [address] Platelet mean volume (Bld) [Entitic vol] 10.3 fL Normal 6.2-12.0 [facility] Comment on above: Order Comment: 120.1 Performed By: #### L 100.0500, L500.4050 #### [facility] [address] [place], [address] Platelets (Bld) [#/Vol] 308 10*3/uL Normal 150-450 [facility] Comment on above: Order Comment: 120.1 Performed By: #### L 100.0500, L500.4050 #### [facility] [address] [place], [address] RBC (Bld) [#/Vol] 4.08 10*6/uL Low 4.2-5.4 [facility] Comment on above: Order Comment: 120.1 Performed By: #### L 100.0500, [id number] #### [facility] [address] [place], [address] RDW SD 42.3 fl Normal 35.1-43.9 [facility] Comment on above: Order Comment: 120.1 Performed By: #### L 100.0500, [id number] #### [facility] [address] [place], [address] WBC (Bld) [#/Vol] 11.4 10*3/uL High 4.4-11.0 [facility] Comment on above: Order Comment: 120.1 Performed By: #### L 100.0500, [id number] #### [facility] [address] [place], [address] Carbon dioxide measurementOr dered By: Elisa Maldonado on 04-20-2024 CO2 [Moles/Vol] 28.0 mmol/L 21.0-32.0 [facility] Chloride measurementOrdered By: Elisa Maldonado on 04-20-2024 Chloride [Moles/Vol] 107 mmol/L 98-107 [facility] Comprehensive Metabolic Prof ilon 04-20-2024 Albumin [Mass/Vol] 2.8 g/dL Low 3.2-5.0 [facility] Comment on above: Order Comment: 120.1 Performed By: #### L 100.0500, L500.4050 #### [facility] [address] [place], [address] Albumin/Globulin [Mass ratio] 0.6 {ratio} Low 0.9-2.4 [facility] Comment on above: Order Comment: 120.1 Performed By: #### L 100.0500, L500.4050 #### [facility] [address] [place], [address] ALK P 64 U/L Normal 45-117 [facility] Comment on above: Order Comment: 120.1 Performed By: #### L 100.0500, L500.4050 #### [facility] [address] [place], [address] ALT [Catalytic activity/Vol] 17 U/L Normal 13-56 [facility] Comment on above: Order Comment: 120.1 Performed By: #### L 100.0500, [id number] #### [facility] [address] [place], [address] AST [Catalytic activity/Vol] 22 U/L Normal 15-37 [facility] Comment on above: Order Comment: 120.1 Performed By: #### L 100.0500, [id number] #### [facility] [address] [place], [address] Bilirubin [Mass/Vol] 0.30 mg/dL Normal 0.20-1.00 [facility] Comment on above: Order Comment: 120.1 Result Comment: For patients on eltrombopag therapy, use of Dimension [place] TBIL is not recommended. Performed By: #### L 100.0500, L500.4050 #### [facility] [address] [place], [address] BUN/CRE 30.5 RATIO High 10-20 [facility] Comment on above: Order Comment: 120.1 Performed By: #### L 100.0500, L500.4050 #### [facility] [address] [place], [address] CA,Total 9.6 mg/dL Normal 8.5-10.1 [facility] Comment on above: Order Comment: 120.1 Performed By: #### L 100.0500, [id number] #### [facility] [address] [place], [address] Chloride [Moles/Vol] 107 mmol/L Normal 98-107 [facility] Comment on above: Order Comment: 120.1 Performed By: #### L 100.0500, [id number] #### [facility] [address] [place], [address] CO2 [Moles/Vol] 28.0 mmol/L Normal 21.0-32.0 [facility] Comment on above: Order Comment: 120.1 Performed By: #### L 100.0500, [id number] #### [facility] [address] [place], [address] Creatinine [Mass/Vol] 0.75 mg/dL Normal 0.55-1.02 [facility] Comment on above: Order Comment: 120.1 Result Comment: The validity of the calculated GFR GFRAA in patients over 70 years has not been determined. Clinical correlation is essential. Performed By: #### L 100.0500, L500.4050 #### [facility] [address] [place], [address] EST GFR - AA 98 mL/min Normal >60 [facility] Comment on above: Order Comment: 120.1 Result Comment: Afri can Azerbaijani GFR Calc Performed By: #### L 100.0500, L500.4050 #### [facility] [address] [place], [address] GAP 4 Low 5-15 [facility] Comment on above: Order Comment: 120.1 Performed By: #### L 100.0500, L500.4050 #### [facility] [address] [place], [address] GFR/1.73 sq M.predicted among non-blacks MDRD (S/P/Bld) [Vol rate/Area] 81 mL/min/{1.73_m2} Normal >60 [facility] Comment on above: Order Comment: 120.1 Result Comment: Non- GFR Calc Performed By: #### L 100.0500, L500.4050 #### [facility] [address] [place], [address] Globulin (S) [Mass/Vol] 4.4 g/dL High 2.2-4.[address] [facility] Comment on above: Order Comment: 120.1 Performed By: #### L 100.0500, L500.4050 #### [facility] [address] [place], [address] Glucose [Mass/Vol] 101 mg/dL Normal 74-106 [facility] Comment on above: Order Comment: 120.1 Result Comment: Fast ing Glucose result from 100 to 125 mg/dL suggests IMPAIRED HOMEOSTASIS per A.D.A. criteria. Performed By: #### L 100.0500, L500.4050 #### [facility] [address] [place], [address] Potassium [Moles/Vol] 4.5 mmol/L Normal 3.5-5.1 [facility] Comment on above: Order Comment: 120.1 Performed By: #### L 100.0500, L500.4050 #### [facility] [address] [place], [address] Sodium [Moles/Vol] 139 mmol/L Normal 136-145 [facility] Comment on above: Order Comment: 120.1 Performed By: #### L 100.0500, L500.4050 #### [facility] [address] [place], [address] T PROT 7.2 g/dL Normal 6.4-8.2 [facility] Comment on above: Order Comment: 120.1 Performed By: #### L 100.0500, L500.4050 #### [facility] [address] [place], [address] Urea nitrogen [Mass/Vol] 23 mg/dL High 7-18 [facility] Comment on above: Order Comment: 120.1 Performed By: #### L 100.0500, L500.4050 #### [facility] [address] [place], [address] Erythrocyte distribution wid th (RBC) [Ratio]Ordered By: Elisa Maldonado on 04-20-2024 Erythrocyte distribution width (RBC) [Entitic vol] 42.3 fL 35.1-43.9 [facility] Erythrocyte distribution wid th ratioOrdered By: Elisa Maldonado on 04-20-2024 Erythrocyte distribution width (RBC) [Ratio] 14.4 % 11.6-14.6 [facility] Estimated glomerular filtrat ion rate (GFR) AmericanOrdered By: Elisa Maldonado on 04-20-2024 Estimated GFR (MDRD) Amer 98 mL/min >60 [facility] Comment on above: GFR Calc Glomerular filtration rate ( GFR) estimationOrdered By: Elisa Maldonado on 04-20-2024 Estimated GFR (MDRD) Non-Af Amer 81 mL/min >60 [facility] Comment on above: Non- GFR Calc Glucose measurementOrdered B y: Elisa Maldonado on 04-20-2024 Glucose [Mass/Vol] 101 mg/dL 74-106 [facility] Comment on above: Fasting Glucose resu lt from 100 to 125 mg/dL suggests IMPAIRED HOMEOSTASIS per A.D.A. criteria. Hematocrit Auto (Bld) [Volum e fraction]Ordered By: Elisa Maldonado on 04-20-2024 Hematocrit (Bld) [Volume fraction] 33.1 % Low 37-47 [facility] Hemoglobin measurementOrdere d By: Elisa Maldonado on 04-20-2024 Hemoglobin (Bld) [Mass/Vol] 10.6 g/dL Low 12.0-15.0 [facility] - Chemistry and C hemistry - challengeOrdered By: Elisa Maldonado on 04-20-2024 AST [Catalytic activity/Vol] 22 U/L 15-37 [facility] MCV (mean corpuscular volume ) determinationOrdered By: Elisa Maldonado on 04-20-2024 MCV (RBC) [Entitic vol] 81.1 fL 81-99 [facility] Mean corpuscular hemoglobin (MCH) determinationOrdered By: Elisa Maldonado on 04-20-2024 MCH (RBC) [Entitic mass] 26.0 pg Low 27.0-32.0 [facility] Mean corpuscular hemoglobin concentration (MCHC) determinationOrdered By: Elisa Maldonado on 04-20-2024 MCHC (RBC) [Mass/Vol] 32.0 g/dL 32-36 [facility] Mean platelet volume determi nationOrdered By: Elisa Maldonado on 04-20-2024 Platelet mean volume (Bld) [Entitic vol] 10.3 fL 6.2-12.0 [facility] Platelet countOrdered By: Lanette Maldonado on 04-20-2024 Platelets (Bld) [#/Vol] 308 10*3/uL 150-450 [facility] Potassium measurementOrdered By: Elisa Maldonado on 04-20-2024 Potassium [Moles/Vol] 4.5 mmol/L 3.5-5.1 [facility] RBC Auto (Bld) [#/Vol]Ordere d By: Elisa Maldonado on 04-20-2024 RBC (Bld) [#/Vol] 4.08 10*6/uL Low 4.2-5.4 [facility] Serum anion gap measurementO rdered By: Elisa Maldonado on 04-20-2024 Anion gap [Moles/Vol] 4 mmol/L Low 5-15 [facility] Serum globulin measurementOr dered By: Elisa Maldonado on 04-20-2024 Globulin (S) [Mass/Vol] 4.4 g/dL High 2.2-4.2 [facility] Serum or plasma alanine curry otransferase (ALT) measurementOrdered By: Elisa Maldonado on 04-20-2024 ALT [Catalytic activity/Vol] 17 U/L 13-56 [facility] Serum or plasma albumin emily urement (mass/volume)Ordered By: Elisa Maldonado on 04-20-2024 Albumin [Mass/Vol] 2.8 g/dL Low 3.2-5.0 [facility] Serum or plasma alkaline mago sphatase measurementOrdered By: Elisa Maldonado on 04-20-2024 ALP [Catalytic activity/Vol] 64 U/L 45-117 [facility] Serum or plasma calcium emily urement (mass/volume)Ordered By: Elisa Maldonado on 04-20-2024 Calcium [Mass/Vol] 9.6 mg/dL 8.5-10.1 [facility] Serum or plasma creatinine m easurement (mass/volume)Ordered By: Elisa Maldonado on 04-20-2024 Creatinine [Mass/Vol] 0.75 mg/dL 0.55-1.02 [facility] Comment on above: The validity of the calculated GFR & GFRAA in patients over 70 years has not been determined. Clinical correlation is essential. Serum or plasma urea nitroge n measurement (mass/volume)Ordered By: Elisa Maldonado on 04-20-2024 Urea nitrogen [Mass/Vol] 23 mg/dL High -18 [facility] Sodium levelOrdered By: Elisa Maldonado on 04-20-2024 Sodium [Moles/Vol] 139 mmol/L 136-145 [facility] Total proteinOrdered By: Clif Maldonado on 04-20-2024 Protein [Mass/Vol] 7.2 g/dL 6.4-8.2 [facility] White blood cell (WBC) count Ordered By: Elsia Maldonado on 04-20-2024 WBC (Bld) [#/Vol] 11.4 10*3/uL High 4.4-11.0 [facility] Ammoniaon 03-05-2024 Ammonia (P) [Moles/Vol] 36.0 umol/L High [facility] Comment on above: Order Comment: 120.1 Performed By: #### L 500.4050, L100.0500 #### [facility] [address] [place], [place], [id number] Comprehensive Metabolic Prof ilon 03-05-2024 Albumin [Mass/Vol] 3.0 g/dL Low 3.2-5.0 [facility] Comment on above: Order Comment: 120.1 Performed By: #### L 500.4050, L100.0500 #### [facility] [address] [place], [place], [address] Albumin/Globulin [Mass ratio] 0.6 {ratio} Low 0.9-2.4 [facility] Comment on above: Order Comment: 120.1 Performed By: #### L 500.4050, L100.0500 #### [facility] [address] [place], [address] ALK P 73 U/L Normal 45-117 [facility] Comment on above: Order Comment: 120.1 Performed By: #### L 500.4050, L100.0500 #### [facility] [address] [place], [address] ALT [Catalytic activity/Vol] 21 U/L Normal 13-56 [facility] Comment on above: Order Comment: 120.1 Performed By: #### L 500.4050, L100.0500 #### [facility] [address] [place], [address] AST [Catalytic activity/Vol] 34 U/L Normal 15-37 [facility] Comment on above: Order Comment: 120.1 Performed By: #### L 500.4050, L100.0500 #### [facility] [address] [place], [address] Bilirubin [Mass/Vol] 0.20 mg/dL Normal 0.20-1.00 [facility] Comment on above: Order Comment: 120.1 Result Comment: For patients on eltrombopag therapy, use of Dimension [place] TBIL is not recommended. Performed By: #### L 500.4050, L100.0500 #### [facility] [address] [place], [address] BUN/CRE 26.5 RATIO High 10-20 [facility] Comment on above: Order Comment: 120.1 Performed By: #### L 500.4050, L100.0500 #### [facility] [address] [place], [address] CA,Total 9.6 mg/dL Normal 8.5-10.1 [facility] Comment on above: Order Comment: 120.1 Performed By: #### L 500.4050, L100.0500 #### [facility] [address] [place], [address] Chloride [Moles/Vol] 109 mmol/L High 98-107 [facility] Comment on above: Order Comment: 120.1 Performed By: #### L 500.4050, L100.0500 #### [facility] [address] [place], [address] CO2 [Moles/Vol] 26.0 mmol/L Normal 21.0-32.0 [facility] Comment on above: Order Comment: 120.1 Performed By: #### L 500.4050, L100.0500 #### [facility] [address] [place], [address] Creatinine [Mass/Vol] 0.79 mg/dL Normal 0.55-1.02 [facility] Comment on above: Order Comment: 120.1 Result Comment: The validity of the calculated GFR GFRAA in patients over 70 years has not been determined. Clinical correlation is essential. Performed By: #### L 500.4050, L100.0500 #### [facility] [address] [place], [address] EST GFR - AA 93 mL/min Normal >60 [facility] Comment on above: Order Comment: 120.1 Result Comment: Afri can [place] GFR Calc Performed By: #### L 500.4050, L100.0500 #### [facility] [address] [place], [address] GAP 6 Normal 5-15 [facility] Comment on above: Order Comment: 120.1 Performed By: #### L 500.4050, L100.0500 #### [facility] [address] [place], [address] GFR/1.73 sq M.predicted among non-blacks MDRD (S/P/Bld) [Vol rate/Area] 77 mL/min/{1.73_m2} Normal >60 [facility] Comment on above: Order Comment: 120.1 Result Comment: Non- GFR Calc Performed By: #### L 500.4050, L100.0500 #### [facility] [address] [place], [address] Globulin (S) [Mass/Vol] 4.7 g/dL High 2.2-4.[address] [facility] Comment on above: Order Comment: 120.1 Performed By: #### L 500.4050, L100.0500 #### [facility] [address] [place], [address] Glucose [Mass/Vol] 94 mg/dL Normal 74-106 [facility] Comment on above: Order Comment: 120.1 Performed By: #### L 500.4050, L100.0500 #### [facility] [address] [place], [address] Potassium [Moles/Vol] 4.1 mmol/L Normal 3.5-5.1 [facility] Comment on above: Order Comment: 120.1 Performed By: #### L 500.4050, L100.0500 #### [facility] [address] [place], [address] Sodium [Moles/Vol] 140 mmol/L Normal 136-145 [facility] Comment on above: Order Comment: 120.1 Performed By: #### L 500.4050, L100.0500 #### [facility] [address] [place], [address] T PROT 7.7 g/dL Normal 6.4-8.2 [facility] Comment on above: Order Comment: 120.1 Performed By: #### L 500.4050, L100.0500 #### [facility] [address] [place], [address] Urea nitrogen [Mass/Vol] 21 mg/dL High 7-18 [facility] Comment on above: Order Comment: 120.1 Performed By: #### L 500.4050, L100.0500 #### [facility] [address] [place], [address] Valproic Acid (Depakene) Lev alpa 03-05-2024 VALPROIC ACID 89 ug/mL Normal 50-100 [facility] Comment on above: Order Comment: 120.1 Performed By: #### L 500.4050, L100.0500 #### [facility] [address] [place], [address] CBC-Complete Blood Cnt No Di ffon 02-19-2024 Erythrocyte distribution width (RBC) [Ratio] 13.9 % Normal 11.6-14.6 [facility] Comment on above: Order Comment: 120.1 Performed By: #### L 100.0500, L500.4050 #### [facility] [address] [place], [address] Hematocrit (Bld) [Volume fraction] 30.2 % Low 37-47 [facility] Comment on above: Order Comment: 120.1 Performed By: #### L 100.0500, L500.4050 #### [facility] [address] [place], [address] Hemoglobin (Bld) [Mass/Vol] 9.4 g/dL Low 12.0-15.0 [facility] Comment on above: Order Comment: 120.1 Performed By: #### L 100.0500, L500.4050 #### [facility] [address] [place], [address] MCH (RBC) [Entitic mass] 26.2 pg Low 27.0-32.0 [facility] Comment on above: Order Comment: 120.1 Performed By: #### L 100.0500, L500.4050 #### [facility] [address] [place], [address] MCHC (RBC) [Mass/Vol] 31.1 g/dL Low 32-36 [facility] Comment on above: Order Comment: 120.1 Performed By: #### L 100.0500, L500.4050 #### [facility] [address] [place], [address] MCV (RBC) [Entitic vol] 84.1 fL Normal 81-99 [facility] Comment on above: Order Comment: 120.1 Performed By: #### L 100.0500, L500.4050 #### [facility] [address] [place], [address] Platelet mean volume (Bld) [Entitic vol] 9.7 fL Normal 6.2-12.0 [facility] Comment on above: Order Comment: 120.1 Performed By: #### L 100.0500, L500.4050 #### [facility] [address] [place], [address] Platelets (Bld) [#/Vol] 312 10*3/uL Normal 150-450 [facility] Comment on above: Order Comment: 120.1 Performed By: #### L 100.0500, L500.4050 #### [facility] [address] [place], [address] RBC (Bld) [#/Vol] 3.59 10*6/uL Low 4.2-5.4 [facility] Comment on above: Order Comment: 120.1 Performed By: #### L 100.0500, L500.4050 #### [facility] [address] [place], [address] RDW SD 43.2 fl Normal 35.1-43.9 [facility] Comment on above: Order Comment: 120.1 Performed By: #### L 100.0500, L500.4050 #### [facility] [address] [place], [address] WBC (Bld) [#/Vol] 10.1 10*3/uL Normal 4.4-11.0 [facility] Comment on above: Order Comment: 120.1 Performed By: #### L 100.0500, L500.4050 #### [facility] [address] [place], [address] Comprehensive Metabolic Prof ilon 02-19-2024 Albumin [Mass/Vol] 2.7 g/dL Low 3.2-5.0 [facility] Comment on above: Order Comment: 120.1 Performed By: #### L 100.0500, L500.4050 #### [facility] [address] [place], [address] Albumin/Globulin [Mass ratio] 0.7 {ratio} Low 0.9-2.4 [facility] Comment on above: Order Comment: 120.1 Performed By: #### L 100.0500, L500.4050 #### [facility] [address] [place], [address] ALK P 73 U/L Normal 45-117 [facility] Comment on above: Order Comment: 120.1 Performed By: #### L 100.0500, L500.4050 #### [facility] [address] [place], [address] ALT [Catalytic activity/Vol] 22 U/L Normal 13-56 [facility] Comment on above: Order Comment: 120.1 Performed By: #### L 100.0500, L500.4050 #### [facility] [address] [place], [address] AST [Catalytic activity/Vol] 24 U/L Normal 15-37 [facility] Comment on above: Order Comment: 120.1 Performed By: #### L 100.0500, L500.4050 #### [facility] [address] [place], [address] Bilirubin [Mass/Vol] 0.20 mg/dL Normal 0.20-1.00 [facility] Comment on above: Order Comment: 120.1 Result Comment: For patients on eltrombopag therapy, use of Dimension [place] TBIL is not recommended. Performed By: #### L 100.0500, L500.4050 #### [facility] [address] [place], [address] BUN/CRE 33.3 RATIO High 10-20 [facility] Comment on above: Order Comment: 120.1 Performed By: #### L 100.0500, L500.4050 #### [facility] [address] [place], [address] CA,Total 9.0 mg/dL Normal 8.5-10.1 [facility] Comment on above: Order Comment: 120.1 Performed By: #### L 100.0500, L500.4050 #### [facility] [address] [place], [address] Chloride [Moles/Vol] 109 mmol/L High 98-107 [facility] Comment on above: Order Comment: 120.1 Performed By: #### L 100.0500, L500.4050 #### [facility] [address] [place], [address] CO2 [Moles/Vol] 27.0 mmol/L Normal 21.0-32.0 [facility] Comment on above: Order Comment: 120.1 Performed By: #### L 100.0500, L500.4050 #### [facility] [address] [place], [address] Creatinine [Mass/Vol] 0.75 mg/dL Normal 0.55-1.02 [facility] Comment on above: Order Comment: 120.1 Result Comment: The validity of the calculated GFR GFRAA in patients over 70 years has not been determined. Clinical correlation is essential. Performed By: #### L 100.0500, L500.4050 #### [facility] [address] [place], [address] EST GFR - AA 99 mL/min Normal >60 [facility] Comment on above: Order Comment: 120.1 Result Comment: Afri can Azerbaijani GFR Calc Performed By: #### L 100.0500, L500.4050 #### [facility] [address] [place], [address] GAP 4 Low 5-15 [facility] Comment on above: Order Comment: 120.1 Performed By: #### L 100.0500, L500.4050 #### [facility] [address] [place], [address] GFR/1.73 sq M.predicted among non-blacks MDRD (S/P/Bld) [Vol rate/Area] 82 mL/min/{1.73_m2} Normal >60 [facility] Comment on above: Order Comment: 120.1 Result Comment: Non- GFR Calc Performed By: #### L 100.0500, L500.4050 #### [facility] [address] [place], [address] Globulin (S) [Mass/Vol] 4.1 g/dL Normal 2.2-4.[address] [facility] Comment on above: Order Comment: 120.1 Performed By: #### L 100.0500, L500.4050 #### [facility] [address] [place], [address] Glucose [Mass/Vol] 96 mg/dL Normal 74-106 [facility] Comment on above: Order Comment: 120.1 Performed By: #### L 100.0500, L500.4050 #### [facility] [address] [place], [address] Potassium [Moles/Vol] 4.2 mmol/L Normal 3.5-5.1 [facility] Comment on above: Order Comment: 120.1 Performed By: #### L 100.0500, L500.4050 #### [facility] [address] [place], [address] Sodium [Moles/Vol] 140 mmol/L Normal 136-145 [facility] Comment on above: Order Comment: 120.1 Performed By: #### L 100.0500, L500.4050 #### [facility] [address] [place], [address] T PROT 6.8 g/dL Normal 6.4-8.2 [facility] Comment on above: Order Comment: 120.1 Performed By: #### L 100.0500, L500.4050 #### [facility] [address] [place], [address] Urea nitrogen [Mass/Vol] 25 mg/dL High 7-18 [facility] Comment on above: Order Comment: 120.1 Performed By: #### L 100.0500, L500.4050 #### [facility] [address] [place], [address] CBC-Complete Blood Cnt No Di ffon 01-20-2024 Erythrocyte distribution width (RBC) [Ratio] 13.6 % Normal 11.6-14.6 [facility] Comment on above: Order Comment: 120.1 Performed By: #### L 100.0500, L500.4050 #### [facility] [address] [place], [address] Hematocrit (Bld) [Volume fraction] 30.3 % Low 37-47 [facility] Comment on above: Order Comment: 120.1 Performed By: #### L 100.0500, L500.4050 #### [facility] [address] [place], [address] Hemoglobin (Bld) [Mass/Vol] 9.7 g/dL Low 12.0-15.0 [facility] Comment on above: Order Comment: 120.1 Performed By: #### L 100.0500, L500.4050 #### [facility] [address] [place], [address] MCH (RBC) [Entitic mass] 27.4 pg Normal 27.0-32.0 [facility] Comment on above: Order Comment: 120.1 Performed By: #### L 100.0500, L500.4050 #### [facility] [address] [place], [address] MCHC (RBC) [Mass/Vol] 32.0 g/dL Normal 32-36 [facility] Comment on above: Order Comment: 120.1 Performed By: #### L 100.0500, L500.4050 #### [facility] [address] [place], [address] MCV (RBC) [Entitic vol] 85.6 fL Normal 81-[address] [facility] Comment on above: Order Comment: 120.1 Performed By: #### L 100.0500, L500.4050 #### [facility] [address] [place], [address] Platelet mean volume (Bld) [Entitic vol] 10.0 fL Normal 6.2-12.0 [facility] Comment on above: Order Comment: 120.1 Performed By: #### L 100.0500, L500.4050 #### [facility] [address] [place], [address] Platelets (Bld) [#/Vol] 318 10*3/uL Normal 150-450 [facility] Comment on above: Order Comment: 120.1 Performed By: #### L 100.0500, L500.4050 #### [facility] [address] [place], [address] RBC (Bld) [#/Vol] 3.54 10*6/uL Low 4.2-5.4 [facility] Comment on above: Order Comment: 120.1 Performed By: #### L 100.0500, L500.4050 #### [facility] [address] [place], [address] RDW SD 42.8 fl Normal 35.1-43.9 [facility] Comment on above: Order Comment: 120.1 Performed By: #### L 100.0500, L500.4050 #### [facility] [address] [place], [address] WBC (Bld) [#/Vol] 10.4 10*3/uL Normal 4.4-11.0 [facility] Comment on above: Order Comment: 120.1 Performed By: #### L 100.0500, L500.4050 #### [facility] [address] [place], [address] Comprehensive Metabolic Prof [facility] 01-20-2024 Albumin [Mass/Vol] 2.6 g/dL Low 3.2-5.0 [facility] Comment on above: Order Comment: 120.1 Performed By: #### L 100.0500, L500.4050 #### [facility] [address] [place], [address] Albumin/Globulin [Mass ratio] 0.6 {ratio} Low 0.9-2.4 [facility] Comment on above: Order Comment: 120.1 Performed By: #### L 100.0500, L500.4050 #### [facility] [address] [place], [address] ALK P 67 U/L Normal 45-117 [facility] Comment on above: Order Comment: 120.1 Performed By: #### L 100.0500, L500.4050 #### [facility] [address] [place], [address] ALT [Catalytic activity/Vol] 13 U/L Normal 13-56 [facility] Comment on above: Order Comment: 120.1 Performed By: #### L 100.0500, L500.4050 #### [facility] [address] [place], [address] AST [Catalytic activity/Vol] 23 U/L Normal 15-37 [facility] Comment on above: Order Comment: 120.1 Performed By: #### L 100.0500, L500.4050 #### [facility] [address] [place], [address] Bilirubin [Mass/Vol] 0.20 mg/dL Normal 0.20-1.00 [facility] Comment on above: Order Comment: 120.1 Result Comment: For patients on eltrombopag therapy, use of Dimension [place] TBIL is not recommended. Performed By: #### L 100.0500, L500.4050 #### [facility] [address] [place], [address] BUN/CRE 29.2 RATIO High 10-20 [facility] Comment on above: Order Comment: 120.1 Performed By: #### L 100.0500, L500.4050 #### [facility] [address] [place], [address] CA,Total 10.2 mg/dL High 8.5-10.1 [facility] Comment on above: Order Comment: 120.1 Performed By: #### L 100.0500, L500.4050 #### [facility] [address] [place], [address] Chloride [Moles/Vol] 106 mmol/L Normal 98-107 [facility] Comment on above: Order Comment: 120.1 Performed By: #### L 100.0500, L500.4050 #### [facility] [address] [place], [address] CO2 [Moles/Vol] 27.0 mmol/L Normal 21.0-32.0 [facility] Comment on above: Order Comment: 120.1 Performed By: #### L 100.0500, L500.4050 #### [facility] [address] [place], [address] Creatinine [Mass/Vol] 0.72 mg/dL Normal 0.55-1.02 [facility] Comment on above: Order Comment: 120.1 Result Comment: The validity of the calculated GFR GFRAA in patients over 70 years has not been determined. Clinical correlation is essential. Performed By: #### L 100.0500, L500.4050 #### [facility] [address] [place], [address] EST GFR - AA 104 mL/min Normal >60 [facility] Comment on above: Order Comment: 120.1 Result Comment: Afri can [place] GFR Calc Performed By: #### L 100.0500, L500.4050 #### [facility] [address] [place], [address] GAP 7 Normal 5-15 [facility] Comment on above: Order Comment: 120.1 Performed By: #### L 100.0500, L500.4050 #### [facility] [address] [place], [address] GFR/1.73 sq M.predicted among non-blacks MDRD (S/P/Bld) [Vol rate/Area] 86 mL/min/{1.73_m2} Normal >60 [facility] Comment on above: Order Comment: 120.1 Result Comment: Non- GFR Calc Performed By: #### L 100.0500, L500.4050 #### [facility] [address] [place], [address] Globulin (S) [Mass/Vol] 4.3 g/dL High 2.2-4.2 [facility] Comment on above: Order Comment: 120.1 Performed By: #### L 100.0500, L500.4050 #### [facility] [address] [place], [address] Glucose [Mass/Vol] 93 mg/dL Normal 74-106 [facility] Comment on above: Order Comment: 120.1 Performed By: #### L 100.0500, L500.4050 #### [facility] [address] [place], [address] Potassium [Moles/Vol] 4.2 mmol/L Normal 3.5-5.1 [facility] Comment on above: Order Comment: 120.1 Performed By: #### L 100.0500, L500.4050 #### [facility] [address] [place], [address] Sodium [Moles/Vol] 140 mmol/L Normal 136-145 [facility] Comment on above: Order Comment: 120.1 Performed By: #### L 100.0500, L500.4050 #### [facility] [address] [place], [address] T PROT 6.9 g/dL Normal 6.4-8.2 [facility] Comment on above: Order Comment: 120.1 Performed By: #### L 100.0500, L500.4050 #### [facility] [address] [place], [address] Urea nitrogen [Mass/Vol] 21 mg/dL High 7-18 [facility] Comment on above: Order Comment: 120.1 Performed By: #### L 100.0500, L500.4050 #### [facility] [address] [place], [address] Ammoniaon 01-02-2024 Ammonia (P) [Moles/Vol] 18.0 umol/L Normal 11-32 [facility] Comment on above: Order Comment: 120.1 Performed By: #### L 501.8100, L100.0100, L503.5510, L500.4050 #### [facility] [address] [place], [address] CBC W/Diff, Automatedon - Absolute Lymph 3.19 X10 3/uL Normal 0.83-4.51 [facility] Comment on above: Order Comment: 120.1 Performed By: #### L 500.4050, L100.0500 #### [facility] [address] [place], [address] Absolute Neut 8.5 X10 3/uL High 2.0-7.7 [facility] Comment on above: Order Comment: 120.1 Performed By: #### L 500.4050, L100.0500 #### [facility] [address] [place], [address] Basophils/100 WBC (Bld) 0.5 % Normal 0-1 [facility] Comment on above: Order Comment: 120.1 Performed By: #### L 500.4050, L100.0500 #### [facility] [address] [place], [address] Eosinophils/100 WBC (Bld) 2.4 % Normal 0-5 [facility] Comment on above: Order Comment: 120.1 Performed By: #### L 500.4050, L100.0500 #### [facility] [address] [place], [address] Erythrocyte distribution width (RBC) [Ratio] 13.7 % Normal 11.6-14.6 [facility] Comment on above: Order Comment: 120.1 Performed By: #### L 500.4050, L100.0500 #### [facility] [address] [place], [address] Hematocrit (Bld) [Volume fraction] 33.3 % Low 37-47 [facility] Comment on above: Order Comment: 120.1 Performed By: #### L 500.4050, L100.0500 #### [facility] [address] [place], [address] Hemoglobin (Bld) [Mass/Vol] 10.6 g/dL Low 12.0-15.0 [facility] Comment on above: Order Comment: 120.1 Performed By: #### L 500.4050, L100.0500 #### [facility] [address] [place], [address] IG% 0.500 Normal 0.0-0.9 [facility] Comment on above: Order Comment: 120.1 Result Comment: IG% - Immature Granulocytes (promyelocytes, myelocytes and metamyelocytes) > 1% indicates that a LEFT SHIFT is Present. Performed By: #### L 500.4050, L100.0500 #### [facility] [address] [place], [address] Lymphocytes/100 WBC (Bld) 24.2 % Normal 19-41 [facility] Comment on above: Order Comment: 120.1 Performed By: #### L 500.4050, L100.0500 #### [facility] [address] [place], [address] MCH (RBC) [Entitic mass] 27.2 pg Normal 27.0-32.0 [facility] Comment on above: Order Comment: 120.1 Performed By: #### L 500.4050, L100.0500 #### [facility] [address] [place], [address] MCHC (RBC) [Mass/Vol] 31.8 g/dL Low 32-36 [facility] Comment on above: Order Comment: 120.1 Performed By: #### L 500.4050, L100.0500 #### [facility] [address] [place], [address] MCV (RBC) [Entitic vol] 85.6 fL Normal 81-99 [facility] Comment on above: Order Comment: 120.1 Performed By: #### L 500.4050, L100.0500 #### [facility] [address] [place], [address] Monocytes/100 WBC (Bld) 7.4 % Normal 0-10 [facility] Comment on above: Order Comment: 120.1 Performed By: #### L 500.4050, L100.0500 #### [facility] [address] [place], [address] Neutrophils/100 WBC (Bld) 65.0 % Normal 47-70 [facility] Comment on above: Order Comment: 120.1 Performed By: #### L 500.4050, L100.0500 #### [facility] [address] [place], [address] Nucleated RBC (Bld) [#/Vol] 0 10*3/uL Normal 0-5 [facility] Comment on above: Order Comment: 120.1 Performed By: #### L 500.4050, L100.0500 #### [facility] [address] [place], [address] Platelet mean volume (Bld) [Entitic vol] 10.1 fL Normal 6.2-12.0 [facility] Comment on above: Order Comment: 120.1 Performed By: #### L 500.4050, L100.0500 #### [facility] [address] [place], [address] Platelets (Bld) [#/Vol] 290 10*3/uL Normal 150-450 [facility] Comment on above: Order Comment: 120.1 Performed By: #### L 500.4050, L100.0500 #### [facility] [address] [place], [address] RBC (Bld) [#/Vol] 3.89 10*6/uL Low 4.2-5.4 [facility] Comment on above: Order Comment: 120.1 Performed By: #### L 500.4050, L100.0500 #### [facility] [address] [place], [address] RDW SD 42.4 fl Normal 35.1-43.9 [facility] Comment on above: Order Comment: 120.1 Performed By: #### L 500.4050, L100.0500 #### [facility] [address] [place], [address] WBC (Bld) [#/Vol] 13.2 10*3/uL High 4.4-11.0 [facility] Comment on above: Order Comment: 120.1 Performed By: #### L 500.4050, L100.0500 #### [facility] [address] [place], [address] Comprehensive Metabolic Prof [facility] 01-02-2024 Albumin [Mass/Vol] 2.9 g/dL Low 3.2-5.0 [facility] Comment on above: Order Comment: 120.1 Performed By: #### L 500.4050, L100.0500 #### [facility] [address] [place], [address] Albumin/Globulin [Mass ratio] 0.6 {ratio} Low 0.9-2.4 [facility] Comment on above: Order Comment: 120.1 Performed By: #### L 500.4050, L100.0500 #### [facility] [address] [place], [address] ALK P 80 U/L Normal 45-117 [facility] Comment on above: Order Comment: 120.1 Performed By: #### L 500.4050, L100.0500 #### [facility] [address] [place], [address] ALT [Catalytic activity/Vol] 18 U/L Normal 13-56 [facility] Comment on above: Order Comment: 120.1 Performed By: #### L 500.4050, L100.0500 #### [facility] [address] [place], [address] AST [Catalytic activity/Vol] 21 U/L Normal 15-37 [facility] Comment on above: Order Comment: 120.1 Performed By: #### L 500.4050, L100.0500 #### [facility] [address] [place], [address] Bilirubin [Mass/Vol] 0.20 mg/dL Normal 0.20-1.00 [facility] Comment on above: Order Comment: 120.1 Result Comment: For patients on eltrombopag therapy, use of Dimension [place] TBIL is not recommended. Performed By: #### L 500.4050, L100.0500 #### [facility] [address] [place], [address] BUN/CRE 20.9 RATIO High 10-20 [facility] Comment on above: Order Comment: 120.1 Performed By: #### L 500.4050, L100.0500 #### [facility] [address] [place], [address] CA,Total 10.4 mg/dL High 8.5-10.1 [facility] Comment on above: Order Comment: 120.1 Performed By: #### L 500.4050, L100.0500 #### [facility] [address] [place], [address] Chloride [Moles/Vol] 104 mmol/L Normal 98-107 [facility] Comment on above: Order Comment: 120.1 Performed By: #### L 500.4050, L100.0500 #### [facility] [address] [place], [address] CO2 [Moles/Vol] 29.0 mmol/L Normal 21.0-32.0 [facility] Comment on above: Order Comment: 120.1 Performed By: #### L 500.4050, L100.0500 #### [facility] [address] [place], [address] Creatinine [Mass/Vol] 0.86 mg/dL Normal 0.55-1.02 [facility] Comment on above: Order Comment: 120.1 Result Comment: The validity of the calculated GFR GFRAA in patients over 70 years has not been determined. Clinical correlation is essential. Performed By: #### L 500.4050, L100.0500 #### [facility] [address] [place], [address] EST GFR - AA 85 mL/min Normal >60 [facility] Comment on above: Order Comment: 120.1 Result Comment: Afri can [place] GFR Calc Performed By: #### L 500.4050, L100.0500 #### [facility] [address] [place], [address] GAP 6 Normal 5-15 [facility] Comment on above: Order Comment: 120.1 Performed By: #### L 500.4050, L100.0500 #### [facility] [address] [place], [address] GFR/1.73 sq M.predicted among non-blacks MDRD (S/P/Bld) [Vol rate/Area] 70 mL/min/{1.73_m2} Normal >60 [facility] Comment on above: Order Comment: 120.1 Result Comment: Non- GFR Calc Performed By: #### L 500.4050, L100.0500 #### [facility] [address] [place], [address] Globulin (S) [Mass/Vol] 4.6 g/dL High 2.2-4.2 [facility] Comment on above: Order Comment: 120.1 Performed By: #### L 500.4050, L100.0500 #### [facility] [address] [place], [address] Glucose [Mass/Vol] 102 mg/dL Normal 74-106 [facility] Comment on above: Order Comment: 120.1 Result Comment: Fast ing Glucose result from 100 to 125 mg/dL suggests IMPAIRED HOMEOSTASIS per A.D.A. criteria. Performed By: #### L 500.4050, L100.0500 #### [facility] [address] [place], [address] Potassium [Moles/Vol] 4.0 mmol/L Normal 3.5-5.1 [facility] Comment on above: Order Comment: 120.1 Performed By: #### L 500.4050, L100.0500 #### [facility] [address] [place], [address] Sodium [Moles/Vol] 139 mmol/L Normal 136-145 [facility] Comment on above: Order Comment: 120.1 Performed By: #### L 500.4050, L100.0500 #### [facility] [address] [place], [address] T PROT 7.5 g/dL Normal 6.4-8.2 [facility] Comment on above: Order Comment: 120.1 Performed By: #### L 500.4050, L100.0500 #### [facility] [address] [place], [address] Urea nitrogen [Mass/Vol] 18 mg/dL Normal 7-18 [facility] Comment on above: Order Comment: 120.1 Performed By: #### L 500.4050, L100.0500 #### [facility] [address] [place], [address] Valproic Acid (Depakene) Lev alpa 01-02-2024 VALPROIC ACID 82 ug/mL Normal 50-100 [facility] Comment on above: Order Comment: 120.1 Performed By: #### L 500.4050, L100.0500 #### [facility] [address] [place], [address] CBC-Complete Blood Cnt No Di ffon 12-20-2023 Erythrocyte distribution width (RBC) [Ratio] 13.6 % Normal 11.6-14.6 [facility] Comment on above: Order Comment: 120.1 Performed By: #### L 500.4050, L100.0500 #### [facility] [address] [place], [address] Hematocrit (Bld) [Volume fraction] 33.0 % Low 37-47 [facility] Comment on above: Order Comment: 120.1 Performed By: #### L 500.4050, L100.0500 #### [facility] [address] [place], [address] Hemoglobin (Bld) [Mass/Vol] 10.5 g/dL Low 12.0-15.0 [facility] Comment on above: Order Comment: 120.1 Performed By: #### L 500.4050, L100.0500 #### [facility] [address] [place], [address] MCH (RBC) [Entitic mass] 27.3 pg Normal 27.0-32.0 [facility] Comment on above: Order Comment: 120.1 Performed By: #### L 500.4050, L100.0500 #### [facility] [address] [place], [address] MCHC (RBC) [Mass/Vol] 31.8 g/dL Low 32-36 [facility] Comment on above: Order Comment: 120.1 Performed By: #### L 500.4050, L100.0500 #### [facility] [address] [place], [address] MCV (RBC) [Entitic vol] 85.7 fL Normal 81-99 [facility] Comment on above: Order Comment: 120.1 Performed By: #### L 500.4050, L100.0500 #### [facility] [address] [place], [address] Platelet mean volume (Bld) [Entitic vol] 9.4 fL Normal 6.2-12.0 [facility] Comment on above: Order Comment: 120.1 Performed By: #### L 500.4050, L100.0500 #### [facility] [address] [place], [address] Platelets (Bld) [#/Vol] 321 10*3/uL Normal 150-450 [facility] Comment on above: Order Comment: 120.1 Performed By: #### L 500.4050, L100.0500 #### [facility] [address] [place], [address] RBC (Bld) [#/Vol] 3.85 10*6/uL Low 4.2-5.4 [facility] Comment on above: Order Comment: 120.1 Performed By: #### L 500.4050, L100.0500 #### [facility] [address] [place], [address] RDW SD 42.5 fl Normal 35.1-43.9 [facility] Comment on above: Order Comment: 120.1 Performed By: #### L 500.4050, L100.0500 #### [facility] [address] [place], [address] WBC (Bld) [#/Vol] 10.3 10*3/uL Normal 4.4-11.0 [facility] Comment on above: Order Comment: 120.1 Performed By: #### L 500.4050, L100.0500 #### [facility] [address] [place], [address] Comprehensive Metabolic Prof ilon 12-20-2023 Albumin [Mass/Vol] 2.7 g/dL Low 3.2-5.0 [facility] Comment on above: Order Comment: 120.1 Performed By: #### L 500.4050, L100.0500 #### [facility] [address] [place], [address] Albumin/Globulin [Mass ratio] 0.6 {ratio} Low 0.9-2.4 [facility] Comment on above: Order Comment: 120.1 Performed By: #### L 500.4050, L100.0500 #### [facility] [address] [place], [address] ALK P 78 U/L Normal 45-117 [facility] Comment on above: Order Comment: 120.1 Performed By: #### L 500.4050, L100.0500 #### [facility] [address] [place], [address] ALT [Catalytic activity/Vol] 17 U/L Normal 13-56 [facility] Comment on above: Order Comment: 120.1 Performed By: #### L 500.4050, L100.0500 #### [facility] [address] [place], [address] AST [Catalytic activity/Vol] 21 U/L Normal 15-37 [facility] Comment on above: Order Comment: 120.1 Performed By: #### L 500.4050, L100.0500 #### [facility] [address] [place], [address] Bilirubin [Mass/Vol] 0.20 mg/dL Normal 0.20-1.00 [facility] Comment on above: Order Comment: 120.1 Result Comment: For patients on eltrombopag therapy, use of Dimension [place] TBIL is not recommended. Performed By: #### L 500.4050, L100.0500 #### [facility] [address] [place], [address] BUN/CRE 27.9 RATIO High 10-20 [facility] Comment on above: Order Comment: 120.1 Performed By: #### L 500.4050, L100.0500 #### [facility] [address] [place], [address] CA,Total 10.4 mg/dL High 8.5-10.1 [facility] Comment on above: Order Comment: 120.1 Performed By: #### L 500.4050, L100.0500 #### [facility] [address] [place], [address] Chloride [Moles/Vol] 104 mmol/L Normal 98-107 [facility] Comment on above: Order Comment: 120.1 Performed By: #### L 500.4050, L100.0500 #### [facility] [address] [place], [address] CO2 [Moles/Vol] 25.0 mmol/L Normal 21.0-32.0 [facility] Comment on above: Order Comment: 120.1 Performed By: #### L 500.4050, L100.0500 #### [facility] [address] [place], [address] Creatinine [Mass/Vol] 0.79 mg/dL Normal 0.55-1.02 [facility] Comment on above: Order Comment: 120.1 Result Comment: The validity of the calculated GFR GFRAA in patients over 70 years has not been determined. Clinical correlation is essential. Performed By: #### L 500.4050, L100.0500 #### [facility] [address] [place], [address] EST GFR - AA 94 mL/min Normal >60 [facility] Comment on above: Order Comment: 120.1 Result Comment: Afri can [place] GFR Calc Performed By: #### L 500.4050, L100.0500 #### [facility] [address] [place], [address] GAP 7 Normal 5-15 [facility] Comment on above: Order Comment: 120.1 Performed By: #### L 500.4050, L100.0500 #### [facility] [address] [place], [address] GFR/1.73 sq M.predicted among non-blacks MDRD (S/P/Bld) [Vol rate/Area] 77 mL/min/{1.73_m2} Normal >60 [facility] Comment on above: Order Comment: 120.1 Result Comment: Non- GFR Calc Performed By: #### L 500.4050, L100.0500 #### [facility] [address] [place], [address] Globulin (S) [Mass/Vol] 4.9 g/dL High 2.2-4.2 [facility] Comment on above: Order Comment: 120.1 Performed By: #### L 500.4050, L100.0500 #### [facility] [address] [place], [address] Glucose [Mass/Vol] 95 mg/dL Normal 74-106 [facility] Comment on above: Order Comment: 120.1 Performed By: #### L 500.4050, L100.0500 #### [facility] [address] [place], [address] Potassium [Moles/Vol] 4.0 mmol/L Normal 3.5-5.1 [facility] Comment on above: Order Comment: 120.1 Performed By: #### L 500.4050, L100.0500 #### [facility] [address] [place], [address] Sodium [Moles/Vol] 136 mmol/L Normal 136-145 [facility] Comment on above: Order Comment: 120.1 Performed By: #### L 500.4050, L100.0500 #### [facility] [address] [place], [address] T PROT 7.6 g/dL Normal 6.4-8.2 [facility] Comment on above: Order Comment: 120.1 Performed By: #### L 500.4050, L100.0500 #### [facility] [address] [place], [address] Urea nitrogen [Mass/Vol] 22 mg/dL High 7-18 [facility] Comment on above: Order Comment: 120.1 Performed By: #### L 500.4050, L100.0500 #### [facility] [address] [place], [address] .Auto Diffon 08-11-2023 Basophil, Absolute 0.0 10 3/mcL Normal 0.0-0.3 [facility] ([place]) Comment on above: Performed By: #### A UNRULY, VALPR, CBC, ADIFF, BMP, GFR, AMM #### [address] [address] Basophils/100 WBC (Bld) 0.4 % Normal 0.0-2.5 [facility] ([place]) Comment on above: Performed By: #### A UNRULY, VALPR, CBC, ADIFF, BMP, GFR, AMM #### [address] [address] Eosinophil, Absolute 0.1 10 3/mcL Normal 0.0-0.7 [facility] ([place]) Comment on above: Performed By: #### A UNRULY, VALPR, CBC, ADIFF, BMP, GFR, AMM #### [address] [address] Eosinophils/100 WBC (Bld) 0.7 % Normal 0.0-6.0 [facility] ([place]) Comment on above: Performed By: #### A UNRULY, VALPR, CBC, ADIFF, BMP, GFR, AMM #### [address] [address] Lymphocyte, Absolute 3.1 10 3/mcL Normal 0.9-4.3 [facility] ([place]) Comment on above: Performed By: #### A UNRULY, VALPR, CBC, ADIFF, BMP, GFR, AMM #### [address] [address] Lymphocytes/100 WBC (Bld) 40.1 % High 20.0-40.0 [facility] ([place]) Comment on above: Performed By: #### A UNRULY, VALPR, CBC, ADIFF, BMP, GFR, AMM #### [address] [address] Monocyte, Absolute 0.8 10 3/mcL Normal 0.1-1.4 [facility] ([place] Comment on above: Performed By: #### A UNRULY, VALPR, CBC, ADIFF, BMP, GFR, AMM #### [address] [address] Monocytes/100 WBC (Bld) 10.4 % Normal 2.0-13.0 [facility] ([place] Comment on above: Performed By: #### A UNRULY, VALPR, CBC, ADIFF, BMP, GFR, AMM #### [address] [address] Neutrophils/100 WBC (Bld) 48.4 % Low 50.0-75.0 [facility] ([place]) Comment on above: Performed By: #### A UNRULY, VALPR, CBC, ADIFF, BMP, GFR, AMM #### [address] [address] .GFRon 08-11-2023 GFR >60 Normal [facility] ([place] Comment on above: Result Comment: GFR Population [...] VALPR, CBC, ADIFF, BMP, GFR, AMM #### [address] [address] GFR Non- >60 Normal [facility] ([place]) Comment on above: Result Comment: GFR Population [...] VALPR, CBC, ADIFF, BMP, GFR, AMM #### [address] [address] .NEUABSon 08-11-2023 Neutrophil, Absolute 3.7 10 3/mcL Normal 2.3-8.1 [facility] ([place]) Comment on above: Performed By: #### A UNRULY, VALPR, CBC, ADIFF, BMP, GFR, AMM #### [address] [address] BMPon 08-11-2023 BUN/Creatinine Ratio 38.7 ratio High 10.0-22.0 [facility] ([place] Comment on above: Performed By: #### A UNRULY, VALPR, CBC, ADIFF, BMP, GFR, AMM #### [address] [address] Calcium [Mass/Vol] 8.4 mg/dL Low 8.7-10.4 [facility] ([place]) Comment on above: Performed By: #### A UNRULY, VALPR, CBC, ADIFF, BMP, GFR, AMM #### [address] [address] Chloride [Moles/Vol] 111 mmol/L High 98-110 [facility] ([place] Comment on above: Performed By: #### A UNRULY, VALPR, CBC, ADIFF, BMP, GFR, AMM #### [address] [address] CO2 [Moles/Vol] 24 mmol/L Normal 22-32 [facility] ([place]) Comment on above: Performed By: #### A UNRULY, VALPR, CBC, ADIFF, BMP, GFR, AMM #### [address] [address] Creatinine [Mass/Vol] 0.75 mg/dL Normal 0.50-1.20 [facility] ([place]) Comment on above: Performed By: #### A UNRULY, VALPR, CBC, ADIFF, BMP, GFR, AMM #### [address] [address] Electrolyte Balance 7.0 mEq/L Normal 4.0-15.0 [facility] ([place]) Comment on above: Performed By: #### A UNRULY, VALPR, CBC, ADIFF, BMP, GFR, AMM #### [address] [address] Glucose [Mass/Vol] 72 mg/dL Low 82-115 [facility] ([place]) Comment on above: Performed By: #### A UNRULY, VALPR, CBC, ADIFF, BMP, GFR, AMM #### [address] [address] Potassium [Moles/Vol] 4.8 mmol/L Normal 3.5-5.0 [facility] ([place]) Comment on above: Performed By: #### A UNRULY, VALPR, CBC, ADIFF, BMP, GFR, AMM #### [address] [address] Sodium [Moles/Vol] 142 mmol/L Normal 136-145 [facility] ([place]) Comment on above: Performed By: #### A UNRULY, VALPR, CBC, ADIFF, BMP, GFR, AMM #### [place] [address] Urea nitrogen [Mass/Vol] 29.0 mg/dL High 8.0-22.0 [facility] ([place]) Comment on above: Performed By: #### A UNRULY, VALPR, CBC, ADIFF, BMP, GFR, AMM #### [place] [id number] CBCon 08-11-2023 Erythrocyte distribution width (RBC) [Ratio] 15.1 % Normal 11.5-15.5 [facility] ([place]) Comment on above: Performed By: #### A UNRULY, VALPR, CBC, ADIFF, BMP, GFR, AMM #### [place] [address] Hematocrit (Bld) [Volume fraction] 33.5 % Low 34.0-46.0 [facility] ([place]) Comment on above: Performed By: #### A UNRULY, VALPR, CBC, ADIFF, BMP, GFR, AMM #### [place] [address] Hgb 11.4 G/dL Low 12.0-16.0 [facility] ([place]) Comment on above: Performed By: #### A UNRULY, VALPR, CBC, ADIFF, BMP, GFR, AMM #### [place] [address] MCH (RBC) [Entitic mass] 29.0 pg Normal 27.0-33.0 [facility] ([place]) Comment on above: Performed By: #### A UNRULY, VALPR, CBC, ADIFF, BMP, GFR, AMM #### [place] [address] MCHC 34.0 G/dL Normal 32.0-36.0 [facility] ([place]) Comment on above: Performed By: #### A UNRULY, VALPR, CBC, ADIFF, BMP, GFR, AMM #### [place] [address] MCV (RBC) [Entitic vol] 85.4 fL Normal 80.0-99.0 [facility] ([place]) Comment on above: Performed By: #### A UNRULY, VALPR, CBC, ADIFF, BMP, GFR, AMM #### [address] [address] Platelet 293 10 3/mcL Normal 150-450 [facility] ([place]) Comment on above: Performed By: #### A UNRULY, VALPR, CBC, ADIFF, BMP, GFR, AMM #### [address] [address] Platelet mean volume (Bld) [Entitic vol] 7.4 fL Normal 6.6-10.5 [facility] ([place]) Comment on above: Performed By: #### A UNRULY, VALPR, CBC, ADIFF, BMP, GFR, AMM #### [address] [address] RBC 3.92 10 6/mcL Low 4.10-5.30 [facility] ([place]) Comment on above: Performed By: #### A UNRULY, VALPR, CBC, ADIFF, BMP, GFR, AMM #### [address] [address] WBC 7.7 10 3/mcL Normal 4.5-10.8 [facility] ([place]) Comment on above: Performed By: #### A UNRULY, VALPR, CBC, ADIFF, BMP, GFR, AMM #### [address] [address] LABORATORYOrdered By: SYSTEM SYSTEM on 08-11-2023 Basophils (Bld) [#/Vol] 0.0 103/mcL Normal 0.0 - 0.3 10^3/mcL AH Workflow SS Basophils/100 WBC (Bld) 0.4 % Normal 0.0 - 2.5 % AH Workflow SS Calcium [Mass/Vol] 8.4 mg/dL Low 8.7 - 10. 4 mg/dL AH ADM SS Chloride [Moles/Vol] 111 mmol/L High 98 - 11 0 mEq/L AH ADM SS CO2 [Moles/Vol] 24 mmol/L Normal 22 - 32 mEq/L AH ADM SS Creatinine [Mass/Vol] 0.75 mg/dL Normal 0.50 - 1.20 mg/dL ADM SS Electrolyte Balance 7.0 mEq/L Normal 4.0 - 15 .0 mEq/L AH ADM SS Eosinophils (Bld) [#/Vol] 0.1 103/mcL Normal 0.0 - 0.7 10^3/mcL AH Workflow SS Eosinophils/100 WBC (Bld) 0.7 % Normal 0.0 - 6.0 % AH Workflow SS Erythrocyte distribution width (RBC) [Ratio] 15.1 % Normal 11.5 - 15.5 % AH Workflow SS GFR/1.73 sq M.predicted among blacks MDRD (S/P/Bld) [Vol rate/Area] ml/min/1.73sqm Invalid Interpretation Code [facility] Chemistry S Comment on above: Interpretive Data: [...] (S/P/Bld) [Vol rate/Area] ml/min/1.73sqm Invalid Interpretation Code V[facility] Therapies Chemistry S Comment on above: Interpretive Data: [...] 40.1 % High 20.0 - 40.0 % Workflow SS MCH (RBC) [Entitic mass] 29.0 pg Normal 27.0 - 33.0 pg Workflow SS MCHC 34.0 G/dL Normal 32.0 - 36.0 G/dL Workflow SS MCV (RBC) [Entitic vol] 85.4 fL Normal 80.0 - 99.0 fL Workflow SS Monocytes (Bld) [#/Vol] 0.8 103/mcL Normal 0.1 - 1.4 10^3/mcL AH Workflow SS Monocytes/100 WBC (Bld) 10.4 % Normal 2.0 - 13.0 % Workflow SS Neutrophils (Bld) [#/Vol] 3.7 103/mcL Normal 2.3 - 8.1 10^3/mcL AH Workflow SS Neutrophils/100 WBC (Bld) 48.4 % Low 50.0 - 75.0 % Workflow SS Platelet mean volume (Bld) [Entitic vol] 7.4 fL Normal 6.6 - 10.5 fL Workflow SS Platelets (Bld) [#/Vol] 293 103/mcL [...] 7.7 103/mcL Normal 4.5 - 10.8 10^3/mcL Workflow SS .Auto Diffon 08-10-2023 Basophil, Absolute 0.0 10 3/mcL Normal 0.0-0.3 [facility] ([place] Comment on above: Performed By: #### A UNRULY, ADIFF, GFR, BMP, CBC ####[address] [address] Basophils/100 WBC (Bld) 0.1 % Normal 0.0-2.5 [facility] ([place]) Comment on above: Performed By: #### A UNRULY, ADIFF, GFR, BMP, CBC ####[address] [address] Eosinophil, Absolute 0.0 10 3/mcL Normal 0.0-0.7 [facility] ([place]) Comment on above: Performed By: #### A UNRULY, ADIFF, GFR, BMP, CBC ####[address] [address] Eosinophils/100 WBC (Bld) 0.1 % Normal 0.0-6.0 [facility] ([place]) Comment on above: Performed By: #### A UNRULY, ADIFF, GFR, BMP, CBC ####[address] [address] Lymphocyte, Absolute 2.6 10 3/mcL Normal 0.9-4.3 [facility] ([place]) Comment on above: Performed By: #### A UNRULY, ADIFF, GFR, BMP, CBC ####[address] [address] Lymphocytes/100 WBC (Bld) 37.5 % Normal 20.0-40.0 [facility] ([place]) Comment on above: Performed By: #### A UNRULY, ADIFF, GFR, BMP, CBC ####[address] [address] Monocyte, Absolute 0.7 10 3/mcL Normal 0.1-1.4 [facility] ([place]) Comment on above: Performed By: #### A UNRULY, ADIFF, GFR, BMP, CBC ####[place] [id number] [address] [place] [address] Monocytes/100 WBC (Bld) 9.4 % Normal 2.0-13.0 [facility] ([place]) Comment on above: Performed By: #### A UNRULY, ADIFF, GFR, BMP, CBC ####[address] [address] Neutrophils/100 WBC (Bld) 52.9 % Normal 50.0-75.0 [facility] ([place] Comment on above: Performed By: #### A UNRULY, ADIFF, GFR, BMP, CBC ####[address] [address] .GFRon 08-10-2023 GFR >60 Normal [facility] ([place] Comment on above: Result Comment: GFR Population [...] #### A UNRULY, ADIFF, GFR, BMP, CBC ####[address] [address] GFR Non- >60 Normal [facility] ([place]) Comment on above: Result Comment: GFR Population [...] #### A UNRULY, ADIFF, GFR, BMP, CBC ####[address] [address] .NEUABSon 08-10-2023 Neutrophil, Absolute 3.7 10 3/mcL Normal 2.3-8.1 [facility] ([place]) Comment on above: Performed By: #### A UNRULY, ADIFF, GFR, BMP, CBC ####[place] [address] BMPon 08-10-2023 BUN/Creatinine Ratio 38.8 ratio High 10.0-22.0 [facility] ([place] Comment on above: Performed By: #### A UNRULY, ADIFF, GFR, BMP, CBC ####[place] [address] Calcium [Mass/Vol] 8.6 mg/dL Low 8.7-10.4 [facility] ([place]) Comment on above: Performed By: #### A UNRULY, ADIFF, GFR, BMP, CBC ####[place] [address] Chloride [Moles/Vol] 112 mmol/L High 98-110 [facility] ([place] Comment on above: Performed By: #### A UNRULY, ADIFF, GFR, BMP, CBC ####[place] [address] CO2 [Moles/Vol] 23 mmol/L Normal 22-32 [facility] ([place]) Comment on above: Performed By: #### A UNRULY, ADIFF, GFR, BMP, CBC ####[place] [address] Creatinine [Mass/Vol] 0.80 mg/dL Normal 0.50-1.20 [facility] ([place] Comment on above: Performed By: #### A UNRULY, ADIFF, GFR, BMP, CBC ####[place] [address] Electrolyte Balance 6.0 mEq/L Normal 4.0-15.0 [facility] ([place]) Comment on above: Performed By: #### A UNRULY, ADIFF, GFR, BMP, CBC ####[place] [address] Glucose [Mass/Vol] 76 mg/dL Low 82-115 [facility] ([place]) Comment on above: Performed By: #### A UNRULY, ADIFF, GFR, BMP, CBC ####[place] [address] Potassium [Moles/Vol] 4.4 mmol/L Normal 3.5-5.0 [facility] ([place]) Comment on above: Performed By: #### A UNRULY, ADIFF, GFR, BMP, CBC ####[place] [address] Sodium [Moles/Vol] 141 mmol/L Normal 136-145 [facility] ([place] Comment on above: Performed By: #### A UNRULY, ADIFF, GFR, BMP, CBC ####[place] [address] Urea nitrogen [Mass/Vol] 31.0 mg/dL High 8.0-22.0 [facility] ([place]) Comment on above: Performed By: #### A UNRULY, ADIFF, GFR, BMP, CBC ####[place] [address] CBCon 08-10-2023 Erythrocyte distribution width (RBC) [Ratio] 15.3 % Normal 11.5-15.5 [facility] ([place] Comment on above: Performed By: #### A UNRULY, ADIFF, GFR, BMP, CBC ####[place] [address] Hematocrit (Bld) [Volume fraction] 32.5 % Low 34.0-46.0 [facility] ([place] Comment on above: Performed By: #### A UNRULY, ADIFF, GFR, BMP, CBC ####[place] [address] Hgb 10.8 G/dL Low 12.0-16.0 [facility] ([place] Comment on above: Performed By: #### A UNRULY, ADIFF, GFR, BMP, CBC ####[place] [address] MCH (RBC) [Entitic mass] 28.1 pg Normal 27.0-33.0 [facility] ([place] Comment on above: Performed By: #### A UNRULY, ADIFF, GFR, BMP, CBC ####[place] [address] MCHC 33.1 G/dL Normal 32.0-36.0 [facility] ([place] Comment on above: Performed By: #### A UNRULY, ADIFF, GFR, BMP, CBC ####[place] [address] MCV (RBC) [Entitic vol] 85.0 fL Normal 80.0-99.0 [facility] ([place]) Comment on above: Performed By: #### A UNRULY, ADIFF, GFR, BMP, CBC ####[place] [address] Platelet 307 10 3/mcL Normal 150-450 [facility] ([place]) Comment on above: Performed By: #### A UNRULY, ADIFF, GFR, BMP, CBC ####[place] [address] Platelet mean volume (Bld) [Entitic vol] 7.4 fL Normal 6.6-10.5 [facility] ([place] Comment on above: Performed By: #### A UNRULY, ADIFF, GFR, BMP, CBC ####[place] [address] RBC 3.83 10 6/mcL Low 4.10-5.30 [facility] ([place] Comment on above: Performed By: #### A UNRULY, ADIFF, GFR, BMP, CBC ####[place] [address] WBC 6.9 10 3/mcL Normal 4.5-10.8 [facility] ([place]) Comment on above: Performed By: #### A UNRULY, ADIFF, GFR, BMP, CBC ####[place] [id number] [place] [address] LABORATORYOrdered By: SYSTEM SYSTEM on 08-10-2023 Basophils (Bld) [#/Vol] 0.0 103/mcL Normal 0.0 - 0.3 10^3/mcL AH Workflow SS Basophils/100 WBC (Bld) 0.1 % [...] 32.5 % Low 34.0 - 46.0 % AH Workflow SS Hemoglobin (Bld) [Mass/Vol] 10.8 G/dL Low 12.0 - 16.0 G/dL AH Workflow SS Lymphocytes (Bld) [#/Vol] 2.6 103/mcL [...] 7.4 fL Normal 6.6 - 10.5 fL Workflow SS Platelets (Bld) [#/Vol] 307 103/mcL Normal 150 - 450 10^3/mcL AH Workflow SS Potassium [Moles/Vol] 4.4 mmol/L Normal 3.5 - 5.0 mEq/L ADM SS RBC (Bld) [#/Vol] 3.83 106/mcL Low 4.10 - 5.3 0 10^6/mcL Workflow SS Sodium [Moles/Vol] 141 mmol/L Normal 136 - 145 mEq/L ADM SS Urea nitrogen [Mass/Vol] 31.0 mg/dL High 8.0 - 22.0 mg/dL ADM SS Urea nitrogen/Creatinine [Mass ratio] 38.8 ratio High 10.0 - 22.0 ratio ADM SS WBC (Bld) [#/Vol] 6.9 103/mcL Normal 4.5 - 10.8 10^3/mcL Workflow SS .Auto Diffon 08-09-2023 Basophil, Absolute 0.0 10 3/mcL Normal 0.0-0.3 [facility] ([place]) Comment on above: Performed By: #### A UNRULY, VALPR, CBC, ADIFF, BMP, GFR, AMM #### [address] [address] Basophils/100 WBC (Bld) 0.3 % Normal 0.0-2.5 A [facility] ([place]) Comment on above: Performed By: #### A UNRULY, VALPR, CBC, ADIFF, BMP, GFR, AMM #### [address] [address] Eosinophil, Absolute 0.2 10 3/mcL Normal 0.0-0.7 Formerly [facility] ([place]) Comment on above: Performed By: #### A UNRULY, VALPR, CBC, ADIFF, BMP, GFR, AMM #### [address] [address] Eosinophils/100 WBC (Bld) 2.2 % Normal 0.0-6.0 [facility] ([place]) Comment on above: Performed By: #### A UNRULY, VALPR, CBC, ADIFF, BMP, GFR, AMM #### [address] [address] Lymphocyte, Absolute 1.9 10 3/mcL Normal 0.9-4.3 [facility] ([place]) Comment on above: Performed By: #### A UNRULY, VALPR, CBC, ADIFF, BMP, GFR, AMM #### [address] [address] Lymphocytes/100 WBC (Bld) 25.8 % Normal 20.0-40.0 [facility] ([place]) Comment on above: Performed By: #### A UNRULY, VALPR, CBC, ADIFF, BMP, GFR, AMM #### [address] [address] Monocyte, Absolute 0.8 10 3/mcL Normal 0.1-1.4 [facility] ([place]) Comment on above: Performed By: #### A UNRULY, VALPR, CBC, ADIFF, BMP, GFR, AMM #### [address] [address] Monocytes/100 WBC (Bld) 11.1 % Normal 2.0-13.0 [facility] ([place]) Comment on above: Performed By: #### A UNRULY, VALPR, CBC, ADIFF, BMP, GFR, AMM #### [address] [address] Neutrophils/100 WBC (Bld) 60.6 % Normal 50.0-75.0 [facility] ([place]) Comment on above: Performed By: #### A UNRULY, VALPR, CBC, ADIFF, BMP, GFR, AMM #### [address] [address] .GFRon 08-09-2023 GFR Non- >60 Normal [facility] ([place]) Comment on above: Result Comment: GFR Population [...] VALPR, CBC, ADIFF, BMP, GFR, AMM #### [address] [address] GFR >60 Normal [facility] ([place] Comment on above: Result Comment: GFR Population [...] VALPR, CBC, ADIFF, BMP, GFR, AMM #### [address] [address] .NEUABSon 08-09-2023 Neutrophil, Absolute 4.5 10 3/mcL Normal 2.3-8.1 [facility] ([place]) Comment on above: Performed By: #### A UNRULY, VALPR, CBC, ADIFF, BMP, GFR, AMM #### [address] [address] Gael 08-09-2023 Ammonia 19 mcmol/l Normal 11-32 [facility] ([place]) Comment on above: Performed By: #### A UNRULY, VALPR, CBC, ADIFF, BMP, GFR, AMM #### [address] [address] BMPon 08-09-2023 BUN/Creatinine Ratio 30.9 ratio High 10.0-22.0 [facility] ([place]) Comment on above: Performed By: #### A UNRULY, VALPR, CBC, ADIFF, BMP, GFR, AMM #### [address] [address] Calcium [Mass/Vol] 8.8 mg/dL Normal 8.7-10.4 [facility] ([place]) Comment on above: Performed By: #### A UNRULY, VALPR, CBC, ADIFF, BMP, GFR, AMM #### [address] [address] Chloride [Moles/Vol] 109 mmol/L Normal 98-110 [facility] ([place] Comment on above: Performed By: #### A UNRULY, VALPR, CBC, ADIFF, BMP, GFR, AMM #### [address] [address] CO2 [Moles/Vol] 25 mmol/L Normal 22-32 [facility] ([place]) Comment on above: Performed By: #### A UNRULY, VALPR, CBC, ADIFF, BMP, GFR, AMM #### [address] [address] Creatinine [Mass/Vol] 0.81 mg/dL Normal 0.50-1.20 [facility] ([place]) Comment on above: Performed By: #### A UNRULY, VALPR, CBC, ADIFF, BMP, GFR, AMM #### [address] [address] Electrolyte Balance 7.0 mEq/L Normal 4.0-15.0 [facility] ([place]) Comment on above: Performed By: #### A UNRULY, VALPR, CBC, ADIFF, BMP, GFR, AMM #### [address] [address] Glucose [Mass/Vol] 81 mg/dL Low 82-115 [facility] ([place]) Comment on above: Performed By: #### A UNRULY, VALPR, CBC, ADIFF, BMP, GFR, AMM #### [address] [address] Potassium [Moles/Vol] 4.2 mmol/L Normal 3.5-5.0 [facility] ([place]) Comment on above: Performed By: #### A UNRULY, VALPR, CBC, ADIFF, BMP, GFR, AMM #### [place] [id number] Sodium [Moles/Vol] 141 mmol/L Normal 136-145 [facility] ([place]) Comment on above: Performed By: #### A UNRULY, VALPR, CBC, ADIFF, BMP, GFR, AMM #### [place] [id number] Urea nitrogen [Mass/Vol] 25.0 mg/dL High 8.0-22.0 [facility] ([place]) Comment on above: Performed By: #### A UNRULY, VALPR, CBC, ADIFF, BMP, GFR, AMM #### [place] [id number] CBCon 08-09-2023 Erythrocyte distribution width (RBC) [Ratio] 15.2 % Normal 11.5-15.5 [facility] ([place]) Comment on above: Performed By: #### A UNRULY, VALPR, CBC, ADIFF, BMP, GFR, AMM #### [place] [id number] Hematocrit (Bld) [Volume fraction] 34.1 % Normal 34.0-46.0 [facility] ([place]) Comment on above: Performed By: #### A UNRULY, VALPR, CBC, ADIFF, BMP, GFR, AMM #### [place] [id number] Hgb 11.6 G/dL Low 12.0-16.0 [facility] ([place]) Comment on above: Performed By: #### A UNRULY, VALPR, CBC, ADIFF, BMP, GFR, AMM #### [place] [id number] MCH (RBC) [Entitic mass] 28.3 pg Normal 27.0-33.0 [facility] ([place]) Comment on above: Performed By: #### A UNRULY, VALPR, CBC, ADIFF, BMP, GFR, AMM #### [place] [address] MCHC 33.9 G/dL Normal 32.0-36.0 [facility] ([place]) Comment on above: Performed By: #### A UNRULY, VALPR, CBC, ADIFF, BMP, GFR, AMM #### [place] [address] MCV (RBC) [Entitic vol] 83.6 fL Normal 80.0-99.0 [facility] ([place]) Comment on above: Performed By: #### A UNRULY, VALPR, CBC, ADIFF, BMP, GFR, AMM #### [place] [address] Platelet 299 10 3/mcL Normal 150-450 [facility] ([place]) Comment on above: Performed By: #### A UNRULY, VALPR, CBC, ADIFF, BMP, GFR, AMM #### [place] [address] Platelet mean volume (Bld) [Entitic vol] 7.2 fL Normal 6.6-10.5 [facility] ([place]) Comment on above: Performed By: #### A UNRULY, VALPR, CBC, ADIFF, BMP, GFR, AMM #### [place] [address] RBC 4.08 10 6/mcL Low 4.10-5.30 [facility] ([place]) Comment on above: Performed By: #### A UNRULY, VALPR, CBC, ADIFF, BMP, GFR, AMM #### [place] [address] WBC 7.4 10 3/mcL Normal 4.5-10.8 [facility] ([place]) Comment on above: Performed By: #### A UNRULY, VALPR, CBC, ADIFF, BMP, GFR, AMM #### [place] [address] LABORATORYOrdered By: SYSTEM SYSTEM on 08-09-2023 Ammonia (P) [Moles/Vol] 19 umol/L Normal 11 - 32 mcmol/L AH ADM SS Basophils (Bld) [#/Vol] 0.0 103/mcL Normal 0.0 - 0.3 10^3/mcL AH Workflow SS Basophils/100 WBC (Bld) 0.3 % Normal 0.0 - 2.5 % AH Workflow SS Calcium [Mass/Vol] 8.8 mg/dL Normal [...] 0.2 103/mcL Normal 0.0 - 0.7 10^3/mcL AH Workflow SS Eosinophils/100 WBC (Bld) 2.2 % Normal 0.0 - 6.0 % AH Workflow SS Erythrocyte distribution width (RBC) [Ratio] 15.2 % Normal 11.5 - 15.5 % AH Workflow SS GFR/1.73 sq M.predicted among blacks MDRD (S/P/Bld) [Vol rate/Area] ml/min/1.73sqm Invalid Interpretation Code [facility] Chemistry S Comment on above: Interpretive Data: [...] (S/P/Bld) [Vol rate/Area] ml/min/1.73sqm Invalid Interpretation Code Vascular Therapies Chemistry S Comment on above: Interpretive Data: [...] 81 mg/dL Low 82 - 115 mg/dL AH ADM SS Hematocrit (Bld) [Volume fraction] 34.1 % Normal 34.0 - 46.0 % AH Workflow SS Hemoglobin (Bld) [Mass/Vol] 11.6 G/dL Low 12.0 - 16.0 G/dL AH Workflow SS Lymphocytes (Bld) [#/Vol] 1.9 103/mcL Normal 0.9 - 4.3 10^3/mcL AH Workflow SS Lymphocytes/100 WBC (Bld) 25.8 % Normal 20.0 - 40.0 % AH Workflow SS MCH (RBC) [Entitic mass] 28.3 [...] 4.2 mmol/L Normal 3.5 - 5.0 mEq/L AH ADM SS RBC (Bld) [#/Vol] 4.08 106/mcL Low 4.10 - 5.3 0 10^6/mcL AH Workflow SS Sodium [Moles/Vol] 141 mmol/L Normal 136 - 145 mEq/L AH ADM SS Urea nitrogen [Mass/Vol] 25.0 mg/dL High 8.0 - 22.0 mg/dL AH ADM SS Urea nitrogen/Creatinine [Mass ratio] 30.9 ratio High 10.0 - 22.0 ratio AH ADM SS Valproate [Mass/Vol] 110.8 ug/mL Normal 50.0 - 130.0 mcg/mL AH ADM SS WBC (Bld) [#/Vol] 7.4 103/mcL [...] Date: 08/09/2023 11:01:30 AM Ordering Provider: BRITT Castro [facility] ([place]) VALPRon 08-09-2023 LDose Valproic Acid: See eMAR [facility] ([place]) Comment on above: Performed By: #### A UNRULY, VALPR, CBC, ADIFF, BMP, GFR, AMM #### [address] [address] Valproic Acid Lvl 110.8 mcg/mL Normal 50.0-130.0 [facility] ([place]) Comment on above: Performed By: #### A UNRULY, VALPR, CBC, ADIFF, BMP, GFR, AMM #### [address] [address] .Auto Diffon 08-08-2023 Basophil, Absolute 0.0 10 3/mcL Normal 0.0-0.3 [facility] ([place]) Comment on above: Performed By: #### A UNRULY, VALPR, CBC, ADIFF, BMP, GFR, AMM #### [address] [address] Basophils/100 WBC (Bld) 0.4 % Normal 0.0-2.5 A [facility] ([place]) Comment on above: Performed By: #### A UNRULY, VALPR, CBC, ADIFF, BMP, GFR, AMM #### [address] [address] Eosinophil, Absolute 0.3 10 3/mcL Normal 0.0-0.7 [facility] ([place]) Comment on above: Performed By: #### A UNRULY, VALPR, CBC, ADIFF, BMP, GFR, AMM #### [address] [address] Eosinophils/100 WBC (Bld) 3.2 % Normal 0.0-6.0 [facility] ([place]) Comment on above: Performed By: #### A UNRULY, VALPR, CBC, ADIFF, BMP, GFR, AMM #### [address] [address] Lymphocyte, Absolute 3.1 10 3/mcL Normal 0.9-4.3 [facility] ([place]) Comment on above: Performed By: #### A UNRULY, VALPR, CBC, ADIFF, BMP, GFR, AMM #### [address] [address] Lymphocytes/100 WBC (Bld) 31.0 % Normal 20.0-40.0 [facility] ([place]) Comment on above: Performed By: #### A UNRULY, VALPR, CBC, ADIFF, BMP, GFR, AMM #### [address] [address] Monocyte, Absolute 1.1 10 3/mcL Normal 0.1-1.4 [facility] ([place] Comment on above: Performed By: #### A UNRULY, VALPR, CBC, ADIFF, BMP, GFR, AMM #### [address] [address] Monocytes/100 WBC (Bld) 11.5 % Normal 2.0-13.0 [facility] ([place]) Comment on above: Performed By: #### A UNRULY, VALPR, CBC, ADIFF, BMP, GFR, AMM #### [address] [address] Neutrophils/100 WBC (Bld) 53.9 % Normal 50.0-75.0 [facility] ([place]) Comment on above: Performed By: #### A UNRULY, VALPR, CBC, ADIFF, BMP, GFR, AMM #### [address] [address] .GFRon 08-08-2023 GFR >60 Normal [facility] ([place] Comment on above: Result Comment: GFR Population [...] VALPR, CBC, ADIFF, BMP, GFR, AMM #### [address] [address] GFR Non- >60 Normal [facility] ([place]) Comment on above: Result Comment: GFR Population [...] VALPR, CBC, ADIFF, BMP, GFR, AMM #### [place] [address] .NEUABSon 08-08-2023 Neutrophil, Absolute 5.4 10 3/mcL Normal 2.3-8.1 [facility] ([place]) Comment on above: Performed By: #### A UNRULY, VALPR, CBC, ADIFF, BMP, GFR, AMM #### [place] [id number] Gael 08-08-2023 Ammonia 30 mcmol/l Normal 11-32 [facility] ([place]) Comment on above: Performed By: #### A UNRULY, VALPR, CBC, ADIFF, BMP, GFR, AMM #### [place] [id number] CBCon 08-08-2023 Erythrocyte distribution width (RBC) [Ratio] 15.5 % Normal 11.5-15.5 [facility] ([place]) Comment on above: Performed By: #### A UNRULY, VALPR, CBC, ADIFF, BMP, GFR, AMM #### [address] [address] Hematocrit (Bld) [Volume fraction] 32.9 % Low 34.0-46.0 [facility] ([place]) Comment on above: Performed By: #### A UNRULY, VALPR, CBC, ADIFF, BMP, GFR, AMM #### [place] [address] Hgb 11.2 G/dL Low 12.0-16.0 [facility] ([place]) Comment on above: Performed By: #### A UNRULY, VALPR, CBC, ADIFF, BMP, GFR, AMM #### [place] [address] MCH (RBC) [Entitic mass] 28.6 pg Normal 27.0-33.0 [facility] ([place]) Comment on above: Performed By: #### A UNRULY, VALPR, CBC, ADIFF, BMP, GFR, AMM #### [place] [address] MCHC 33.9 G/dL Normal 32.0-36.0 [facility] ([place]) Comment on above: Performed By: #### A UNRULY, VALPR, CBC, ADIFF, BMP, GFR, AMM #### [place] [address] MCV (RBC) [Entitic vol] 84.2 fL Normal 80.0-99.0 A [facility] ([place]) Comment on above: Performed By: #### A UNRULY, VALPR, CBC, ADIFF, BMP, GFR, AMM #### [place] [address] Platelet 279 10 3/mcL Normal 150-450 [facility] ([place]) Comment on above: Performed By: #### A UNRULY, VALPR, CBC, ADIFF, BMP, GFR, AMM #### [place] [address] Platelet mean volume (Bld) [Entitic vol] 7.7 fL Normal 6.6-10.5 [facility] ([place]) Comment on above: Performed By: #### A UNRULY, VALPR, CBC, ADIFF, BMP, GFR, AMM #### [place] [address] RBC 3.90 10 6/mcL Low 4.10-5.30 [facility] ([place]) Comment on above: Performed By: #### A UNRULY, VALPR, CBC, ADIFF, BMP, GFR, AMM #### [address] [address] WBC 9.9 10 3/mcL Normal 4.5-10.8 [facility] ([place]) Comment on above: Performed By: #### A UNRULY, VALPR, CBC, ADIFF, BMP, GFR, AMM #### [address] [address] CMPon 08-08-2023 Albumin Level 2.7 G/dL Low 3.2-4.8 [facility] ([place] Comment on above: Performed By: #### A UNRULY, VALPR, CBC, ADIFF, BMP, GFR, AMM #### [address] [address] Albumin/Globulin [Mass ratio] 0.6 {ratio} Low 0.9-1.6 [facility] ([place]) Comment on above: Performed By: #### A UNRULY, VALPR, CBC, ADIFF, BMP, GFR, AMM #### [address] [address] ALP [Catalytic activity/Vol] 52 U/L Normal 38-126 [facility] ([place]) Comment on above: Performed By: #### A UNRULY, VALPR, CBC, ADIFF, BMP, GFR, AMM #### [address] [address] ALT [Catalytic activity/Vol] 30 U/L Normal 10-49 [facility] ([place]) Comment on above: Performed By: #### A UNRULY, VALPR, CBC, ADIFF, BMP, GFR, AMM #### [address] [address] AST [Catalytic activity/Vol] 48 U/L High 8-34 [facility] ([place]) Comment on above: Performed By: #### A UNRULY, VALPR, CBC, ADIFF, BMP, GFR, AMM #### [place] [id number] Bili Total 0.30 mg/dL Normal 0.20-1.20 [facility] ([place]) Comment on above: Result Comment: Use of this assay is not recommended for patients undergoing treatment with eltrombopag due to the potential for falsely elevated results. Performed By: #### A UNRULY, VALPR, CBC, ADIFF, BMP, GFR, AMM #### [place] [id number] BUN/Creatinine Ratio 28.0 ratio High 10.0-22.0 [facility] ([place] Comment on above: Performed By: #### A UNRULY, VALPR, CBC, ADIFF, BMP, GFR, AMM #### [place] [id number] Calcium [Mass/Vol] 8.5 mg/dL Low 8.7-10.4 [facility] ([place]) Comment on above: Performed By: #### A UNRULY, VALPR, CBC, ADIFF, BMP, GFR, AMM #### [place] [id number] Chloride [Moles/Vol] 110 mmol/L Normal 98-110 [facility] ([place] Comment on above: Performed By: #### A URNULY, VALPR, CBC, ADIFF, BMP, GFR, AMM #### [place] [id number] CO2 [Moles/Vol] 22 mmol/L Normal 22-32 [facility] ([place]) Comment on above: Performed By: #### A UNRULY, VALPR, CBC, ADIFF, BMP, GFR, AMM #### [place] [id number] Creatinine [Mass/Vol] 0.75 mg/dL Normal 0.50-1.20 [facility] ([place]) Comment on above: Performed By: #### A UNRULY, VALPR, CBC, ADIFF, BMP, GFR, AMM #### [place] [id number] Electrolyte Balance 6.0 mEq/L Normal 4.0-15.0 [facility] ([place]) Comment on above: Performed By: #### A UNRULY, VALPR, CBC, ADIFF, BMP, GFR, AMM #### [address] [address] Globulin 4.3 G/dL High 1.5-3.8 [facility] ([place]) Comment on above: Performed By: #### A UNRULY, VALPR, CBC, ADIFF, BMP, GFR, AMM #### [address] [address] Glucose [Mass/Vol] 77 mg/dL Low 82-115 [facility] ([place]) Comment on above: Performed By: #### A UNRULY, VALPR, CBC, ADIFF, BMP, GFR, AMM #### [address] [address] Potassium [Moles/Vol] 4.0 mmol/L Normal 3.5-5.0 [facility] ([place]) Comment on above: Performed By: #### A UNRULY, VALPR, CBC, ADIFF, BMP, GFR, AMM #### [place] [id number] Sodium [Moles/Vol] 138 mmol/L Normal 136-145 [facility] ([place]) Comment on above: Performed By: #### A UNRULY, VALPR, CBC, ADIFF, BMP, GFR, AMM #### [address] [address] Total Protein 7.0 G/dL Normal 5.7-8.2 [facility] ([place]) Comment on above: Result Comment: No te - New Reference Range in effect 19 Performed By: #### A UNRULY, VALPR, CBC, ADIFF, BMP, GFR, AMM #### [address] [address] Urea nitrogen [Mass/Vol] 21.0 mg/dL Normal 8.0-22.0 [facility] ([place]) Comment on above: Performed By: #### A UNRULY, VALPR, CBC, ADIFF, BMP, GFR, AMM #### [address] [address] KEPPRAon 08-08-2023 Levetiracetam Lvl 80.8 UG/ML High 10.0-40.0 [facility] ([place]) Comment on above: Result Comment: Perf ormed At: [facility] [address] [id number] Yan Sanchez MD Ph:[phone] Performed By: #### A UNRULY, VALPR, CBC, ADIFF, BMP, GFR, AMM #### [place] [address] LABORATORYOrdered By: SYSTEM SYSTEM on 08-08-2023 Albumin BCP dye [Mass/Vol] 2.7 G/dL Low 3.2 - 4.8 G/dL AH ADM SS Albumin/Globulin [Mass ratio] 0.6 {ratio} Low 0.9 - 1.6 ratio AH ADM SS ALP [Catalytic activity/Vol] 52 U/L Normal 38 - 126 U/L AH ADM SS ALT No additional P-5'-P [Catalytic activity/Vol] 30 U/L Normal 10 - 49 U/L AH ADM SS Ammonia (P) [Moles/Vol] 30 umol/L Normal 11 - 32 mcmol/L AH ADM SS AST [Catalytic activity/Vol] 48 U/L High 8 - 34 U/L AH ADM SS Bilirubin [Mass/Vol] 0.30 mg/dL Normal [...] 08-08-2023 LDose Valproic Acid: See eMAR Normal [facility] ([place] Comment on above: Performed By: #### A UNRULY, VALPR, CBC, ADIFF, BMP, GFR, AMM #### [address] [address] Valproic Acid Lvl 107.6 mcg/mL Normal 50.0-130.0 [facility] ([place]) Comment on above: Performed By: #### A UNRULY, VALPR, CBC, ADIFF, BMP, GFR, AMM #### [address] [address] .Auto Diffon 08-07-2023 Basophil, Absolute 0.0 10 3/mcL Normal 0.0-0.3 [facility] ([place] Comment on above: Performed By: #### A UNRULY, ADIFF, GFR, CBC, BMP ####[place] [address] Basophils/100 WBC (Bld) 0.3 % Normal 0.0-2.5 [facility] ([place]) Comment on above: Performed By: #### A UNRULY, ADIFF, GFR, CBC, BMP ####[place] [address] Eosinophil, Absolute 0.2 10 3/mcL Normal 0.0-0.7 [facility] ([place]) Comment on above: Performed By: #### A UNRULY, ADIFF, GFR, CBC, BMP ####[address] [address] Eosinophils/100 WBC (Bld) 1.7 % Normal 0.0-6.0 [facility] ([place]) Comment on above: Performed By: #### A UNRULY, ADIFF, GFR, CBC, BMP ####[address] [address] Lymphocyte, Absolute 3.3 10 3/mcL Normal 0.9-4.3 [facility] ([place]) Comment on above: Performed By: #### A UNRULY, ADIFF, GFR, CBC, BMP ####[address] [address] Lymphocytes/100 WBC (Bld) 26.3 % Normal 20.0-40.0 [facility] ([place]) Comment on above: Performed By: #### A UNRULY, ADIFF, GFR, CBC, BMP ####[address] [address] Monocyte, Absolute 1.4 10 3/mcL Normal 0.1-1.4 [facility] ([place] Comment on above: Performed By: #### A UNRULY, ADIFF, GFR, CBC, BMP ####[address] [address] Monocytes/100 WBC (Bld) 11.0 % Normal 2.0-13.0 [facility] [place] Comment on above: Performed By: #### A UNRULY, ADIFF, GFR, CBC, BMP ####[address] [address] Neutrophils/100 WBC (Bld) 60.7 % Normal 50.0-75.0 [facility] ([place] Comment on above: Performed By: #### A UNRULY, ADIFF, GFR, CBC, BMP ####[place] [address] .GFRon 08-07-2023 GFR Non- >60 Normal [facility] ([place]) Comment on above: Result Comment: GFR Population [...] #### A UNRULY, ADIFF, GFR, CBC, BMP ####[address] [address] GFR >60 Normal [facility] ([place] Comment on above: Result Comment: GFR Population [...] #### A UNRULY, ADIFF, GFR, CBC, BMP ####[address] [address] .NEUABSon 08-07-2023 Neutrophil, Absolute 7.6 10 3/mcL Normal 2.3-8.1 [facility] ([place] Comment on above: Performed By: #### A UNRULY, ADIFF, GFR, CBC, BMP ####[address] [address] BMPon 08-07-2023 BUN/Creatinine Ratio 25.0 ratio High 10.0-22.0 [facility] ([place] Comment on above: Performed By: #### A UNRULY, ADIFF, GFR, CBC, BMP ####[address] [address] Calcium [Mass/Vol] 9.0 mg/dL Normal 8.7-10.4 [facility] ([place]) Comment on above: Performed By: #### A UNRULY, ADIFF, GFR, CBC, BMP ####[address] [address] Chloride [Moles/Vol] 107 mmol/L Normal 98-110 [facility] ([place] Comment on above: Performed By: #### A UNRULY, ADIFF, GFR, CBC, BMP ####[address] [address] CO2 [Moles/Vol] 23 mmol/L Normal 22-32 [facility] ([place]) Comment on above: Performed By: #### A UNRULY, ADIFF, GFR, CBC, BMP ####[place] [address] Creatinine [Mass/Vol] 0.80 mg/dL Normal 0.50-1.20 [facility] ([place] Comment on above: Performed By: #### A UNRULY, ADIFF, GFR, CBC, BMP ####[place] [address] Electrolyte Balance 7.0 mEq/L Normal 4.0-15.0 [facility] ([place]) Comment on above: Performed By: #### A UNRULY, ADIFF, GFR, CBC, BMP ####[place] [address] Glucose [Mass/Vol] 82 mg/dL Normal 82-115 [facility] ([place]) Comment on above: Performed By: #### A UNRULY, ADIFF, GFR, CBC, BMP ####[place] [address] Potassium [Moles/Vol] 4.1 mmol/L Normal 3.5-5.0 [facility] ([place] Comment on above: Performed By: #### A UNRULY, ADIFF, GFR, CBC, BMP ####[place] [address] Sodium [Moles/Vol] 137 mmol/L Normal 136-145 [facility] ([place] Comment on above: Performed By: #### A UNRULY, ADIFF, GFR, CBC, BMP ####[place] [address] Urea nitrogen [Mass/Vol] 20.0 mg/dL Normal 8.0-22.0 [facility] ([place] Comment on above: Performed By: #### A UNRULY, ADIFF, GFR, CBC, BMP ####[place] [address] CBCon 08-07-2023 Erythrocyte distribution width (RBC) [Ratio] 15.7 % High 11.5-15.5 [facility] ([place] Comment on above: Performed By: #### A UNRULY, VALPR, CBC, ADIFF, BMP, GFR, AMM #### [place] [address] Hematocrit (Bld) [Volume fraction] 31.6 % Low 34.0-46.0 [facility] ([place]) Comment on above: Performed By: #### A UNRULY, VALPR, CBC, ADIFF, BMP, GFR, AMM #### [place] [address] Hgb 10.8 G/dL Low 12.0-16.0 [facility] ([place] Comment on above: Performed By: #### A UNRULY, VALPR, CBC, ADIFF, BMP, GFR, AMM #### [place] [address] MCH (RBC) [Entitic mass] 28.7 pg Normal 27.0-33.0 [facility] ([place] Comment on above: Performed By: #### A UNRULY, VALPR, CBC, ADIFF, BMP, GFR, AMM #### [place] [address] MCHC 34.3 G/dL Normal 32.0-36.0 [facility] ([place]) Comment on above: Performed By: #### A UNRULY, VALPR, CBC, ADIFF, BMP, GFR, AMM #### [place] [address] MCV (RBC) [Entitic vol] 83.7 fL Normal 80.0-99.0 [facility] ([place]) Comment on above: Performed By: #### A UNRULY, VALPR, CBC, ADIFF, BMP, GFR, AMM #### [place] [address] Platelet 267 10 3/mcL Normal 150-450 [facility] ([place]) Comment on above: Performed By: #### A UNRULY, VALPR, CBC, ADIFF, BMP, GFR, AMM #### [place] [address] Platelet mean volume (Bld) [Entitic vol] 7.5 fL Normal 6.6-10.5 [facility] ([place]) Comment on above: Performed By: #### A UNRULY, VALPR, CBC, ADIFF, BMP, GFR, AMM #### [facility] [address] [place] [address] RBC 3.78 10 6/mcL Low 4.10-5.30 [facility] ([place]) Comment on above: Performed By: #### A UNRULY, VALPR, CBC, ADIFF, BMP, GFR, AMM #### [facility] [address] [place] [id number] WBC 12.5 10 3/mcL High 4.5-10.8 [facility] ([place]) Comment on above: Performed By: #### A UNRULY, VALPR, CBC, ADIFF, BMP, GFR, AMM #### [facility] [address] [place] [id number] [place] MAMMOGRAM SCREENING BILAT ERAL W/TOMOon 08-07-2023 [place] MAMMOGRAM SCREENING BILATERAL W/TOMASZ ORIGINAL FROM: [facility] [address] [place] [id number] PROCEDURE FOR: NAI HERNANDEZ [facility] [address] [place] [address] Home: PID#: [id number] Exam#: [id number] : 1955 Age: 67 TO: FISH JORDAN APRN [facility] [address] [facility] [address] [place], [place] [address] Fax: NO FAX EXAMINATION: SCREENING DIGITAL BILATERAL [...] addition to annual mammographic screening per the [employer]. I have personally reviewed the [...] 08/07/2023 6:23:16 PM Ordering Provider: FISH JORDAN Fitter Placer: MYRTLE HOUSER RT(R)(M)(CT) letter sent: Normal BI-RADS 1 and 2 Mammogram BI-RADS: 2 Benign Normal [facility] ([place]) .Auto Diffon 08-06-2023 Basophil, Absolute 0.1 10 3/mcL Normal 0.0-0.3 [facility] ([place]) Comment on above: Performed By: #### A UNRULY, VALPR, CBC, ADIFF, BMP, GFR, AMM #### [address] [address] Basophils/100 WBC (Bld) 0.6 % Normal 0.0-2.5 [facility] ([place]) Comment on above: Performed By: #### A UNRULY, VALPR, CBC, ADIFF, BMP, GFR, AMM #### [address] [address] Eosinophil, Absolute 0.1 10 3/mcL Normal 0.0-0.7 [facility] ([place]) Comment on above: Performed By: #### A UNRULY, VALPR, CBC, ADIFF, BMP, GFR, AMM #### [address] [address] Eosinophils/100 WBC (Bld) 0.7 % Normal 0.0-6.0 [facility] ([place]) Comment on above: Performed By: #### A UNRULY, VALPR, CBC, ADIFF, BMP, GFR, AMM #### [address] [address] Lymphocyte, Absolute 3.0 10 3/mcL Normal 0.9-4.3 [facility] ([place]) Comment on above: Performed By: #### A UNRUYL, VALPR, CBC, ADIFF, BMP, GFR, AMM #### [address] [address] Lymphocytes/100 WBC (Bld) 24.9 % Normal 20.0-40.0 [facility] ([place]) Comment on above: Performed By: #### A UNRULY, VALPR, CBC, ADIFF, BMP, GFR, AMM #### [address] [address] Monocyte, Absolute 1.8 10 3/mcL High 0.1-1.4 [facility] ([place]) Comment on above: Performed By: #### A UNRULY, VALPR, CBC, ADIFF, BMP, GFR, AMM #### [address] [address] Monocytes/100 WBC (Bld) 14.5 % High 2.0-13.0 A [facility] ([place]) Comment on above: Performed By: #### A UNRULY, VALPR, CBC, ADIFF, BMP, GFR, AMM #### [address] [address] Neutrophils/100 WBC (Bld) 59.3 % Normal 50.0-75.0 [facility] ([place]) Comment on above: Performed By: #### A UNRULY, VALPR, CBC, ADIFF, BMP, GFR, AMM #### [address] [address] .GFRon 08-06-2023 GFR Non- >60 Normal [facility] ([place]) Comment on above: Result Comment: GFR Population [...] VALPR, CBC, ADIFF, BMP, GFR, AMM #### [address] [address] GFR >60 Normal [facility] ([place]) Comment on above: Result Comment: GFR Population [...] VALPR, CBC, ADIFF, BMP, GFR, AMM #### [address] [address] .NEUABSon 08-06-2023 Neutrophil, Absolute 7.1 10 3/mcL Normal 2.3-8.1 [facility] ([place]) Comment on above: Performed By: #### A UNRULY, VALPR, CBC, ADIFF, BMP, GFR, AMM #### [address] [address] BMPon 08-06-2023 BUN/Creatinine Ratio 17.7 ratio Normal 10.0-22.0 [facility] ([place]) Comment on above: Performed By: #### A UNRULY, VALPR, CBC, ADIFF, BMP, GFR, AMM #### [address] [address] Calcium [Mass/Vol] 9.4 mg/dL Normal 8.7-10.4 [facility] ([place]) Comment on above: Performed By: #### A UNRULY, VALPR, CBC, ADIFF, BMP, GFR, AMM #### [address] [address] Chloride [Moles/Vol] 102 mmol/L Normal 98-110 [facility] ([place]) Comment on above: Performed By: #### A UNRULY, VALPR, CBC, ADIFF, BMP, GFR, AMM #### [place] [id number] CO2 [Moles/Vol] 24 mmol/L Normal 22-32 [facility] ([place]) Comment on above: Performed By: #### A UNRULY, VALPR, CBC, ADIFF, BMP, GFR, AMM #### [place] [address] Creatinine [Mass/Vol] 0.79 mg/dL Normal 0.50-1.20 [facility] ([place]) Comment on above: Performed By: #### A UNRULY, VALPR, CBC, ADIFF, BMP, GFR, AMM #### [address] [address] Electrolyte Balance 8.0 mEq/L Normal 4.0-15.0 [facility] ([place]) Comment on above: Performed By: #### A UNRULY, VALPR, CBC, ADIFF, BMP, GFR, AMM #### [address] [address] Glucose [Mass/Vol] 96 mg/dL Normal 82-115 [facility] ([place]) Comment on above: Performed By: #### A UNRULY, VALPR, CBC, ADIFF, BMP, GFR, AMM #### [place] [address] Potassium [Moles/Vol] 4.1 mmol/L Normal 3.5-5.0 [facility] ([place]) Comment on above: Performed By: #### A UNRULY, VALPR, CBC, ADIFF, BMP, GFR, AMM #### [place] [address] Sodium [Moles/Vol] 134 mmol/L Low 136-145 [facility] ([place]) Comment on above: Performed By: #### A UNRULY, VALPR, CBC, ADIFF, BMP, GFR, AMM #### [place] [address] Urea nitrogen [Mass/Vol] 14.0 mg/dL Normal 8.0-22.0 [facility] ([place]) Comment on above: Performed By: #### A UNRULY, VALPR, CBC, ADIFF, BMP, GFR, AMM #### [place] [address] CBCon 08-06-2023 Erythrocyte distribution width (RBC) [Ratio] 15.2 % Normal 11.5-15.5 [facility] ([place]) Comment on above: Performed By: #### A UNRULY, VALPR, CBC, ADIFF, BMP, GFR, AMM #### [place] [address] Hematocrit (Bld) [Volume fraction] 32.3 % Low 34.0-46.0 [facility] ([place]) Comment on above: Performed By: #### A UNRULY, VALPR, CBC, ADIFF, BMP, GFR, AMM #### [place] [address] Hgb 11.1 G/dL Low 12.0-16.0 [facility] ([place]) Comment on above: Performed By: #### A UNRULY, VALPR, CBC, ADIFF, BMP, GFR, AMM #### [place] [address] MCH (RBC) [Entitic mass] 28.7 pg Normal 27.0-33.0 [facility] ([place]) Comment on above: Performed By: #### A UNRULY, VALPR, CBC, ADIFF, BMP, GFR, AMM #### [place] [address] MCHC 34.5 G/dL Normal 32.0-36.0 [facility] ([place]) Comment on above: Performed By: #### A UNRULY, VALPR, CBC, ADIFF, BMP, GFR, AMM #### [place] [address] MCV (RBC) [Entitic vol] 83.2 fL Normal 80.0-99.0 A [facility] ([place]) Comment on above: Performed By: #### A UNRULY, VALPR, CBC, ADIFF, BMP, GFR, AMM #### [place] [address] Platelet 230 10 3/mcL Normal 150-450 [facility] ([place]) Comment on above: Performed By: #### A UNRULY, VALPR, CBC, ADIFF, BMP, GFR, AMM #### [place] [address] Platelet mean volume (Bld) [Entitic vol] 8.4 fL Normal 6.6-10.5 [facility] ([place]) Comment on above: Performed By: #### A UNRULY, VALPR, CBC, ADIFF, BMP, GFR, AMM #### [place] [address] RBC 3.88 10 6/mcL Low 4.10-5.30 [facility] ([place]) Comment on above: Performed By: #### A UNRULY, VALPR, CBC, ADIFF, BMP, GFR, AMM #### [place] [address] WBC 12.1 10 3/mcL High 4.5-10.8 [facility] ([place]) Comment on above: Performed By: #### A UNRULY, VALPR, CBC, ADIFF, BMP, GFR, AMM #### [place] [address] LABORATORYOrdered By: Keshia Vasquez on 08-06-2023 Osmolality (U) [Osmolality] 568 mosm/kg Normal 390 - 1090 mOsm/kg AH Manual Chem SS LABORATORYOrdered By: Mary Blas on 08-06-2023 Sodium (U) [Moles/Vol] 64 mmol/L Invalid Interpretation Code AH ADM SS LABORATORYOrdered By: Cheryl Almanzar on 08-06-2023 Appearance (U) Clear (08/06/23 3:38 PM) Normal Clear AH Auto Urine SS Bilirubin Ql (U) Negative [...] Urine SS UA Protein Negative Normal Negative AH Auto Urine SS UA RBC Rare /HPF [...] NAURon 08-06-2023 Sodium [Moles/Vol] 64 mmol/L Normal [facility] ([place]) Comment on above: Performed By: #### A UNRULY, VALPR, CBC, ADIFF, BMP, GFR, AMM #### [facility] [address] [place] [address] No Panel Informationon 08-05 Microscopic examination of blood, culture Blood Culture: No Growth at [address] [facility] OSMOUon 08-06-2023 U Osmolality 568 mOsm/kg Normal 390-1090 [facility] ([place]) Comment on above: Performed By: #### A UNRULY, VALPR, CBC, ADIFF, BMP, GFR, AMM #### [address] [address] SPEon 08-06-2023 SPE Interpretation There is polyclonal hypergammaglobulinem ia. This may be seen in chronic inflammatory or infectious diseases, or in patients receiving intravenous immunoglobulin therapy. Normal [facility] ([place]) Comment on above: Result Comment: Elec tronically Signed by: SELINA CEDILLO 08/06/2023 15:08 EDT Performed By: #### A UNRULY, VALPR, CBC, ADIFF, BMP, GFR, AMM #### [address] [address] Albumin 3.4 G/dL Normal 3.3-5.0 [facility] ([place]) Comment on above: Performed By: #### A UNRULY, VALPR, CBC, ADIFF, BMP, GFR, AMM #### [place] [address] Alpha 1 0.2 G/dL Normal 0.1-0.4 [facility] ([place]) Comment on above: Performed By: #### A UNRULY, VALPR, CBC, ADIFF, BMP, GFR, AMM #### [address] [address] Alpha 2 1.1 G/dL Normal 0.6-1.2 [facility] ([place]) Comment on above: Performed By: #### A UNRULY, VALPR, CBC, ADIFF, BMP, GFR, AMM #### [address] [address] Beta 1.3 G/dL Normal 0.6-1.3 [facility] ([place]) Comment on above: Performed By: #### A UNRULY, VALPR, CBC, ADIFF, BMP, GFR, AMM #### [place] [id number] Gamma 2.3 G/dL High 0.7-1.6 [facility] ([place]) Comment on above: Performed By: #### A UNRULY, VALPR, CBC, ADIFF, BMP, GFR, AMM #### [place] [id number] UAon 08-06-2023 Color (U) Yellow Normal [facility] ([place]) Comment on above: Performed By: #### A UNRULY, VALPR, CBC, ADIFF, BMP, GFR, AMM #### [place] [address] Glucose (U) [Mass/Vol] Negative Normal Negative [facility] ([place]) Comment on above: Performed By: #### A UNRULY, VALPR, CBC, ADIFF, BMP, GFR, AMM #### [place] [address] Ketones Ql (U) Trace Normal Neg-Trace [facility] ([place]) Comment on above: Performed By: #### A UNRULY, VALPR, CBC, ADIFF, BMP, GFR, AMM #### [place] [address] UA Appear Clear Normal Clear [facility] ([place]) Comment on above: Performed By: #### A UNRULY, VALPR, CBC, ADIFF, BMP, GFR, AMM #### [place] [id number] UA Blood Negative Normal Neg-Trace [facility] ([place]) Comment on above: Performed By: #### A UNRULY, VALPR, CBC, ADIFF, BMP, GFR, AMM #### [place] [address] UA Leuk Est Small Abnormal Negative [facility] ([place]) Comment on above: Performed By: #### A UNRULY, VALPR, CBC, ADIFF, BMP, GFR, AMM #### [place] [id number] UA Nitrite Negative Normal Negative [facility] ([place]) Comment on above: Performed By: #### A UNRULY, VALPR, CBC, ADIFF, BMP, GFR, AMM #### [place] [address] UA pH 6.5 Normal 5.0 - 8.0 [facility] ([place]) Comment on above: Performed By: #### A UNRULY, VALPR, CBC, ADIFF, BMP, GFR, AMM #### [address] [address] UA Protein Negative Normal Negative [facility] ([place]) Comment on above: Performed By: #### A UNRULY, VALPR, CBC, ADIFF, BMP, GFR, AMM #### [address] [address] UA Spec Grav 1.020 Normal 1.006-1.029 [facility] ([place]) Comment on above: Performed By: #### A UNRULY, VALPR, CBC, ADIFF, BMP, GFR, AMM #### [address] [address] UA Specimen Type Clean Catch Normal [facility] ([place]) Comment on above: Performed By: #### A UNRULY, VALPR, CBC, ADIFF, BMP, GFR, AMM #### [address] [address] UA Urobilinogen 1.0 E.U./dL Normal 0.2-1.0 [facility] ([place]) Comment on above: Performed By: #### A UNRULY, VALPR, CBC, ADIFF, BMP, GFR, AMM #### [address] [address] Urobilinogen (U) [Mass/Vol] Negative Normal Neg-Trace [facility] ([place]) Comment on above: Performed By: #### A UNRULY, VALPR, CBC, ADIFF, BMP, GFR, AMM #### [address] [address] UAMICon 08-06-2023 UA RBC Rare Normal 0-2 [facility] ([place]) Comment on above: Performed By: #### A UNRULY, VALPR, CBC, ADIFF, BMP, GFR, AMM #### [address] [address] UA Squam Epithelial 0-2 Normal 0-20 [facility] ([place]) Comment on above: Performed By: #### A UNRULY, VALPR, CBC, ADIFF, BMP, GFR, AMM #### [address] [address] UA Transitional Epithelial 3-5 Normal [facility] ([place]) Comment on above: Performed By: #### A UNRULY, VALPR, CBC, ADIFF, BMP, GFR, AMM #### [address] [address] UA WBC 3-5 Normal 0-5 [facility] ([place]) Comment on above: Performed By: #### A UNRULY, VALPR, CBC, ADIFF, BMP, GFR, AMM #### [address] [address] XR CHEST 1 VIEWon 08-06-2023 XR CHEST [...] 08/06/2023 10:43:49 AM Ordering Provider: BRITT Castro [facility] ([place]) .Auto Diffon 08-05-2023 Basophil, Absolute 0.1 10 3/mcL Normal 0.0-0.3 [facility] ([place]) Comment on above: Performed By: #### A DIFF, GFR, OSMOS, CBC, BMP, ANEU ####[address] [address] Basophils/100 WBC (Bld) 0.3 % Normal 0.0-2.5 A [facility] ([place]) Comment on above: Performed By: #### A DIFF, GFR, OSMOS, CBC, BMP, ANEU ####[address] [address] Eosinophil, Absolute 0.0 10 3/mcL Normal 0.0-0.7 [facility] ([place]) Comment on above: Performed By: #### A DIFF, GFR, OSMOS, CBC, BMP, ANEU ####[address] [address] Eosinophils/100 WBC (Bld) 0.1 % Normal 0.0-6.0 [facility] ([place]) Comment on above: Performed By: #### A DIFF, GFR, OSMOS, CBC, BMP, ANEU ####[address] [address] Lymphocyte, Absolute 3.3 10 3/mcL Normal 0.9-4.3 [facility] ([place]) Comment on above: Performed By: #### A DIFF, GFR, OSMOS, CBC, BMP, ANEU ####[address] [address] Lymphocytes/100 WBC (Bld) 20.1 % Normal 20.0-40.0 [facility] ([place]) Comment on above: Performed By: #### A DIFF, GFR, OSMOS, CBC, BMP, ANEU ####[address] [address] Monocyte, Absolute 2.2 10 3/mcL High 0.1-1.4 [facility] ([place]) Comment on above: Performed By: #### A DIFF, GFR, OSMOS, CBC, BMP, ANEU ####[address] [address] Monocytes/100 WBC (Bld) 13.4 % High 2.0-13.0 A [facility] ([place]) Comment on above: Performed By: #### A DIFF, GFR, OSMOS, CBC, BMP, ANEU ####[address] [address] Neutrophils/100 WBC (Bld) 66.1 % Normal 50.0-75.0 [facility] ([place]) Comment on above: Performed By: #### A DIFF, GFR, OSMOS, CBC, BMP, ANEU ####[address] [address] .GFRon 08-05-2023 GFR >60 Normal [facility] ([place] Comment on above: Result Comment: GFR Population [...] A DIFF, GFR, OSMOS, CBC, BMP, ANEU ####[address] [address] GFR Non- >60 Normal [facility] ([place]) Comment on above: Result Comment: GFR Population [...] A DIFF, GFR, OSMOS, CBC, BMP, ANEU ####[address] [address] .NEUABSon 08-05-2023 Neutrophil, Absolute 11.0 10 3/mcL High 2.3-8.1 A [facility] ([place]) Comment on above: Performed By: #### A DIFF, GFR, OSMOS, CBC, BMP, ANEU ####[address] [address] Gael 08-05-2023 Ammonia 21 mcmol/l Normal 11-32 [facility] ([place]) Comment on above: Performed By: #### A UNRULY, VALPR, CBC, ADIFF, BMP, GFR, AMM #### [address] [address] BMPon 08-05-2023 BUN/Creatinine Ratio 16.9 ratio Normal 10.0-22.0 [facility] ([place] Comment on above: Performed By: #### A DIFF, GFR, OSMOS, CBC, BMP, ANEU ####[place] [address] Calcium [Mass/Vol] 9.6 mg/dL Normal 8.7-10.4 [facility] ([place]) Comment on above: Performed By: #### A DIFF, GFR, OSMOS, CBC, BMP, ANEU ####[address] [address] Chloride [Moles/Vol] 99 mmol/L Normal 98-110 [facility] ([place] Comment on above: Performed By: #### A DIFF, GFR, OSMOS, CBC, BMP, ANEU ####[address] [address] CO2 [Moles/Vol] 24 mmol/L Normal 22-32 [facility] ([place]) Comment on above: Performed By: #### A DIFF, GFR, OSMOS, CBC, BMP, ANEU ####[address] [address] Creatinine [Mass/Vol] 0.89 mg/dL Normal 0.50-1.20 [facility] ([place]) Comment on above: Performed By: #### A DIFF, GFR, OSMOS, CBC, BMP, ANEU ####[address] [address] Electrolyte Balance 8.0 mEq/L Normal 4.0-15.0 [facility] ([place]) Comment on above: Performed By: #### A DIFF, GFR, OSMOS, CBC, BMP, ANEU ####[place] [address] Glucose [Mass/Vol] 96 mg/dL Normal 82-115 [facility] ([place]) Comment on above: Performed By: #### A DIFF, GFR, OSMOS, CBC, BMP, ANEU ####[place] [address] Potassium [Moles/Vol] 4.1 mmol/L Normal 3.5-5.0 [facility] ([place]) Comment on above: Performed By: #### A DIFF, GFR, OSMOS, CBC, BMP, ANEU ####[place] [address] Sodium [Moles/Vol] 131 mmol/L Low 136-145 [facility] ([place]) Comment on above: Performed By: #### A DIFF, GFR, OSMOS, CBC, BMP, ANEU ####[place] [address] Urea nitrogen [Mass/Vol] 15.0 mg/dL Normal 8.0-22.0 [facility] ([place]) Comment on above: Performed By: #### A DIFF, GFR, OSMOS, CBC, BMP, ANEU ####[place] [address] CBCon 08-05-2023 Erythrocyte distribution width (RBC) [Ratio] 15.1 % Normal 11.5-15.5 [facility] ([place]) Comment on above: Performed By: #### A DIFF, GFR, OSMOS, CBC, BMP, ANEU ####[place] [address] Hematocrit (Bld) [Volume fraction] 31.6 % Low 34.0-46.0 [facility] ([place]) Comment on above: Performed By: #### A DIFF, GFR, OSMOS, CBC, BMP, ANEU ####[place] [address] Hgb 10.7 G/dL Low 12.0-16.0 [facility] ([place]) Comment on above: Performed By: #### A DIFF, GFR, OSMOS, CBC, BMP, ANEU ####[place] [address] MCH (RBC) [Entitic mass] 28.3 pg Normal 27.0-33.0 [facility] ([place]) Comment on above: Performed By: #### A DIFF, GFR, OSMOS, CBC, BMP, ANEU ####[place] [address] MCHC 34.0 G/dL Normal 32.0-36.0 [facility] ([place]) Comment on above: Performed By: #### A DIFF, GFR, OSMOS, CBC, BMP, ANEU ####[place] [address] MCV (RBC) [Entitic vol] 83.2 fL Normal 80.0-99.0 [facility] [place] Comment on above: Performed By: #### A DIFF, GFR, OSMOS, CBC, BMP, ANEU ####[place] [address] Platelet 252 10 3/mcL Normal 150-450 [facility] ([place]) Comment on above: Performed By: #### A DIFF, GFR, OSMOS, CBC, BMP, ANEU ####[place] [address] Platelet mean volume (Bld) [Entitic vol] 8.4 fL Normal 6.6-10.5 [facility] ([place]) Comment on above: Performed By: #### A DIFF, GFR, OSMOS, CBC, BMP, ANEU ####[place] [address] RBC 3.80 10 6/mcL Low 4.10-5.30 [facility] ([place]) Comment on above: Performed By: #### A DIFF, GFR, OSMOS, CBC, BMP, ANEU ####[address] [address] WBC 16.6 10 3/mcL High 4.5-10.8 [facility] ([place]) Comment on above: Performed By: #### A DIFF, GFR, OSMOS, CBC, BMP, ANEU ####[place] [address] LABORATORYOrdered By: SYSTEM SYSTEM on 08-05-2023 Ammonia (P) [Moles/Vol] 21 umol/L Normal 11 - 32 mcmol/L AH ADM SS LABORATORYOrdered By: Cheryl Almanzar on 08-05-2023 Osmolality [Osmolality] 275 mosm/kg Normal 275 - 300 mOsm/kg AH Manual Chem SS OSMOSon 08-05-2023 Osmolality [Osmolality] 275 mosm/kg Normal 275-300 [facility] ([place]) Comment on above: Performed By: #### A DIFF, GFR, OSMOS, CBC, BMP, ANEU ####[place] [address] .Auto Diffon 08-04-2023 Basophil, Absolute 0.1 10 3/mcL Normal 0.0-0.2 [facility] ([place] Comment on above: Performed By: #### A UNRULY, VALPR, CBC, ADIFF, BMP, GFR, AMM #### [place] [id number] Basophils/100 WBC (Bld) 0.4 % Normal 0.0-2.5 A [facility] ([place]) Comment on above: Performed By: #### A UNRULY, VALPR, CBC, ADIFF, BMP, GFR, AMM #### [place] [address] Eosinophil, Absolute 0.0 10 3/mcL Normal 0.0-0.4 [facility] ([place]) Comment on above: Performed By: #### A UNRULY, VALPR, CBC, ADIFF, BMP, GFR, AMM #### [place] [address] Eosinophils/100 WBC (Bld) 0.0 % Normal 0.0-7.0 [facility] ([place]) Comment on above: Performed By: #### A UNRULY, VALPR, CBC, ADIFF, BMP, GFR, AMM #### [address] [address] Lymphocyte, Absolute 1.9 10 3/mcL Normal 0.8-3.9 [facility] ([place]) Comment on above: Performed By: #### A UNRULY, VALPR, CBC, ADIFF, BMP, GFR, AMM #### [address] [address] Lymphocytes/100 WBC (Bld) 12.1 % Normal 10.0-50.0 [facility] ([place]) Comment on above: Performed By: #### A UNRULY, VALPR, CBC, ADIFF, BMP, GFR, AMM #### [address] [address] Monocyte, Absolute 0.9 10 3/mcL Normal 0.2-1.0 [facility] ([place] Comment on above: Performed By: #### A UNRULY, VALPR, CBC, ADIFF, BMP, GFR, AMM #### [address] [address] Monocytes/100 WBC (Bld) 5.6 % Normal 1.7-13.0 A [facility] ([place]) Comment on above: Performed By: #### A UNRULY, VALPR, CBC, ADIFF, BMP, GFR, AMM #### [address] [address] Neutrophils/100 WBC (Bld) 81.9 % High 37.0-80.0 [facility] ([place]) Comment on above: Performed By: #### A UNRULY, VALPR, CBC, ADIFF, BMP, GFR, AMM #### [address] [address] .GFRon 08-04-2023 GFR 58 ml/min/1.73sqm Normal [facility] ([place]) Comment on above: Result Comment: GFR Population [...] VALPR, CBC, ADIFF, BMP, GFR, AMM #### [address] [address] GFR Non- 48 ml/min/1.73sqm Normal [facility] ([place]) Comment on above: Result Comment: GFR Population [...] VALPR, CBC, ADIFF, BMP, GFR, AMM #### [address] [address] .MDWon 08-04-2023 Monocyte Distribution Width 16.15 Normal 0.00-20.00 [facility] ([place]) Comment on above: Result Comment: For ED adult patients suspected of sepsis, MDW<=20.0 does not rule out sepsis or risk of sepsis Performed By: #### A UNRULY, VALPR, CBC, ADIFF, BMP, GFR, AMM #### [address] [address] .NEUABSon 08-04-2023 Neutrophil, Absolute 12.9 10 3/mcL High 2.9-6.2 A [facility] ([place]) Comment on above: Performed By: #### A UNRULY, VALPR, CBC, ADIFF, BMP, GFR, AMM #### [address] [address] APTTon 08-04-2023 aPTT Coag (Bld) [Time] 28.3 s Normal 25.0-35.0 [facility] ([place]) Comment on above: Result Comment: For Heparin anticoagulation therapy, the recommended therapeutic range is: 50.6-87.4 seconds. Patients on heparin therapy may have an extreme result. Performed By: #### A UNRULY, VALPR, CBC, ADIFF, BMP, GFR, AMM #### [address] [address] Heparin dose (APTT) Unknown Normal [facility] ([place]) Comment on above: Performed By: #### A UNRULY, VALPR, CBC, ADIFF, BMP, GFR, AMM #### [address] [address] BD BONE DENSITY DEXA AXIAL S KELETONon [...] +6.1%, significant. FRAX score: Not calculated. The BHOF f/k/a NOF recommends that FDA-approved medical therapies [...] 12:37:50 PM Ordering Provider: FISH JORDAN Normal [facility] ([place]) BMPon 08-04-2023 BUN/Creatinine Ratio 14 ratio Normal 7-27 [facility]) Comment on above: Performed By: #### A UNRULY, VALPR, CBC, ADIFF, BMP, GFR, AMM #### [address] [address] Calcium [Mass/Vol] 8.6 mg/dL Normal 8.4-10.2 [facility]) Comment on above: Performed By: #### A UNRULY, VALPR, CBC, ADIFF, BMP, GFR, AMM #### [address] [address] Chloride [Moles/Vol] 94 mmol/L Low 98-107 [facility]) Comment on above: Performed By: #### A UNRULY, VALPR, CBC, ADIFF, BMP, GFR, AMM #### [address] [address] CO2 [Moles/Vol] 23 mmol/L Normal 23-31 [facility]) Comment on above: Performed By: #### A UNRULY, VALPR, CBC, ADIFF, BMP, GFR, AMM #### [address] [address] Creatinine [Mass/Vol] 1.14 mg/dL High 0.55-1.02 [facility]) Comment on above: Performed By: #### A UNRULY, VALPR, CBC, ADIFF, BMP, GFR, AMM #### [address] [address] Electrolyte Balance 13.0 mEq/L Normal 4.0-15.0 [facility] ([place]) Comment on above: Performed By: #### A UNRULY, VALPR, CBC, ADIFF, BMP, GFR, AMM #### [address] [address] Glucose [Mass/Vol] 134 mg/dL High 80-115 [facility] ([place]) Comment on above: Performed By: #### A UNRULY, VALPR, CBC, ADIFF, BMP, GFR, AMM #### [place] [id number] Potassium [Moles/Vol] 4.3 mmol/L Normal 3.5-5.1 [facility] ([place]) Comment on above: Performed By: #### A UNRULY, VALPR, CBC, ADIFF, BMP, GFR, AMM #### [place] [address] Sodium [Moles/Vol] 130 mmol/L Low 136-145 [facility] ([place]) Comment on above: Performed By: #### A UNRULY, VALPR, CBC, ADIFF, BMP, GFR, AMM #### [place] [address] Urea nitrogen [Mass/Vol] 16 mg/dL Normal 7-18 [facility] ([place]) Comment on above: Performed By: #### A UNRULY, VALPR, CBC, ADIFF, BMP, GFR, AMM #### [address] [address] CBCon 08-04-2023 Erythrocyte distribution width (RBC) [Ratio] 15.1 % High 11.5-14.5 [facility] ([place]) Comment on above: Performed By: #### A UNRULY, VALPR, CBC, ADIFF, BMP, GFR, AMM #### [place] [id number] Hematocrit (Bld) [Volume fraction] 32.3 % Low 37.0-47.0 [facility] ([place]) Comment on above: Performed By: #### A UNRULY, VALPR, CBC, ADIFF, BMP, GFR, AMM #### [address] [address] Hgb 11.1 G/dL Low 12.0-16.0 [facility] ([place]) Comment on above: Performed By: #### A UNRULY, VALPR, CBC, ADIFF, BMP, GFR, AMM #### [place] [address] MCH (RBC) [Entitic mass] 28.2 pg Normal 27.0-31.2 [facility] ([place]) Comment on above: Performed By: #### A UNRULY, VALPR, CBC, ADIFF, BMP, GFR, AMM #### [place] [address] MCHC 34.4 G/dL Normal 33.0-37.0 [facility] ([place]) Comment on above: Performed By: #### A UNRULY, VALPR, CBC, ADIFF, BMP, GFR, AMM #### [place] [address] MCV (RBC) [Entitic vol] 82.1 fL Normal 80.0-94.0 [facility] ([place]) Comment on above: Performed By: #### A UNRULY, VALPR, CBC, ADIFF, BMP, GFR, AMM #### [place] [address] Platelet 243 10 3/mcL Normal 130-400 [facility] ([place]) Comment on above: Performed By: #### A UNRULY, VALPR, CBC, ADIFF, BMP, GFR, AMM #### [place] [address] Platelet mean volume (Bld) [Entitic vol] 7.0 fL Low 7.4-10.4 [facility] ([place]) Comment on above: Performed By: #### A UNRULY, VALPR, CBC, ADIFF, BMP, GFR, AMM #### [place] [address] RBC 3.93 10 6/mcL Low 4.20-5.40 [facility] ([place]) Comment on above: Performed By: #### A UNRULY, VALPR, CBC, ADIFF, BMP, GFR, AMM #### [place] [id number] [place] [address] WBC 15.8 10 3/mcL High 4.6-10.8 [facility] ([place]) Comment on above: Performed By: #### A UNRULY, VALPR, CBC, ADIFF, BMP, GFR, AMM #### [place] [id number] [place] [address] ANGIOGRAPHY HEAD W/ CONTR Felipe 08-04-2023 [...] Date: 08/04/2023 3:33:32 PM Ordering Provider: AIDEN Castro [facility] ([place]) CT ANGIOGRAPHY NECK W/CONTRA Reji 08-04-2023 CT ANGIOGRAPHY NECK W/CONTRAST ORIGINAL EXAMINATION: [...] 08/04/2023 3:24:32 PM Ordering Provider: AIDEN MARQUEZ [facility] ([place]) CT HEAD OR BRAIN W/O CONTRJUSTIN Ton 08-04-2023 CT HEAD OR BRAIN W/O [...] 08/04/2023 2:10:24 PM Ordering Provider: AIDEN Castro [facility] ([place]) LABORATORYOrdered By: Sayda Odonnell on 08-04-2023 aPTT [...] ng/L Male: 0-76 ng/L Testing performed on [employer] using a homogeneous sandwich chemiluminescent immunoassay based on [employer] technology. Urea nitrogen [Mass/Vol] 16 mg/dL Normal [...] 110 mg/dL Normal 82 - 115 mg/dL [facility] 08-04-2023 High Sensitivity Troponin I 16 ng/L Normal 0-51 [facility] ([place]) Comment on above: Result Comment: High Sensitive Troponin I Reference Ranges: Female: 0-51 ng/L Male: 0-76 ng/L Testing performed on [employer] using a homogeneous sandwich chemiluminescent immunoassay based on [employer] technology. Performed By: #### A UNRULY, VALPR, CBC, ADIFF, BMP, GFR, AMM #### [address] [address] VALPRon 08-04-2023 LDose Valproic Acid: See eMAR Normal [facility] ([place]) Comment on above: Performed By: #### A UNRULY, VALPR, CBC, ADIFF, BMP, GFR, AMM #### [address] [address] Valproic Acid Lvl 84 mcg/mL Normal 50-100 [facility] ([place]) Comment on above: Performed By: #### A UNRULY, VALPR, CBC, ADIFF, BMP, GFR, AMM #### [place] [id number] XR CHEST 1 VIEWon 08-04-2023 XR CHEST [...] 08/04/2023 3:19:38 PM Ordering Provider: AIDEN MARQUEZ [facility] ([place]) .Auto Diffon 08-02-2023 Basophil, Absolute 0.1 10 3/mcL Normal 0.0-0.2 [facility] ([place]) Comment on above: Performed By: #### A UNRULY, VALPR, CBC, ADIFF, BMP, GFR, AMM #### [address] [address] Basophils/100 WBC (Bld) 0.6 % Normal 0.0-2.5 [facility] ([place]) Comment on above: Performed By: #### A UNRULY, VALPR, CBC, ADIFF, BMP, GFR, AMM #### [address] [address] Eosinophil, Absolute 0.2 10 3/mcL Normal 0.0-0.4 [facility] ([place]) Comment on above: Performed By: #### A UNRULY, VALPR, CBC, ADIFF, BMP, GFR, AMM #### [address] [address] Eosinophils/100 WBC (Bld) 1.8 % Normal 0.0-7.0 [facility] ([place]) Comment on above: Performed By: #### A UNRULY, VALPR, CBC, ADIFF, BMP, GFR, AMM #### [address] [address] Lymphocyte, Absolute 3.8 10 3/mcL Normal 0.8-3.9 [facility] ([place]) Comment on above: Performed By: #### A UNRULY, VALPR, CBC, ADIFF, BMP, GFR, AMM #### [address] [address] Lymphocytes/100 WBC (Bld) 33.5 % Normal 10.0-50.0 [facility] ([place]) Comment on above: Performed By: #### A UNRULY, VALPR, CBC, ADIFF, BMP, GFR, AMM #### [address] [address] Monocyte, Absolute 1.6 10 3/mcL High 0.2-1.0 [facility] ([place]) Comment on above: Performed By: #### A UNRULY, VALPR, CBC, ADIFF, BMP, GFR, AMM #### [address] [address] Monocytes/100 WBC (Bld) 13.7 % High 1.7-13.0 [facility] ([place]) Comment on above: Performed By: #### A UNRULY, VALPR, CBC, ADIFF, BMP, GFR, AMM #### [address] [address] Neutrophils/100 WBC (Bld) 50.4 % Normal 37.0-80.0 [facility] ([place]) Comment on above: Performed By: #### A UNRULY, VALPR, CBC, ADIFF, BMP, GFR, AMM #### [address] [address] .GFRon 08-02-2023 GFR Non- 48 ml/min/1.73sqm Normal [facility] ([place]) Comment on above: Result Comment: GFR Population [...] VALPR, CBC, ADIFF, BMP, GFR, AMM #### [address] [address] GFR 58 ml/min/1.73sqm Normal [facility] ([place]) Comment on above: Result Comment: GFR Population [...] VALPR, CBC, ADIFF, BMP, GFR, AMM #### [place] [address] .NEUABSon 08-02-2023 Neutrophil, Absolute 5.7 10 3/mcL Normal 2.9-6.2 [facility] ([place]) Comment on above: Performed By: #### A UNRULY, VALPR, CBC, ADIFF, BMP, GFR, AMM #### [place] [address] .Urinalysis Microscopic (AO) on 08-02-2023 UA RBC None Seen Normal None Seen [facility] ([place] Comment on above: Performed By: #### A UNRULY, VALPR, CBC, ADIFF, BMP, GFR, AMM #### [place] [address] UA Squam Epithelial None Seen Normal None Seen [facility] ([place]) Comment on above: Performed By: #### A UNRULY, VALPR, CBC, ADIFF, BMP, GFR, AMM #### [place] [address] UA WBC 0-5 Abnormal None Seen [facility] ([place]) Comment on above: Performed By: #### A UNRULY, VALPR, CBC, ADIFF, BMP, GFR, AMM #### [place] [address] [id number] 08-02-2023 Complement C3A 164.0 mg/dL Normal 90.0-170.0 [facility] ([place]) Comment on above: Result Comment: No te - New Reference Range in effect 19 Performed By: #### A UNRULY, VALPR, CBC, ADIFF, BMP, GFR, AMM #### [place] [address] Complement C4A 26.0 mg/dL Normal 16.0-38.0 [facility] ([place]) Comment on above: Performed By: #### A UNRULY, VALPR, CBC, ADIFF, BMP, GFR, AMM #### [address] [address] CBCon 08-02-2023 Erythrocyte distribution width (RBC) [Ratio] 15.2 % High 11.5-14.5 [facility] ([place]) Comment on above: Performed By: #### A UNRULY, VALPR, CBC, ADIFF, BMP, GFR, AMM #### [place] [address] Hematocrit (Bld) [Volume fraction] 34.6 % Low 37.0-47.0 [facility] ([place]) Comment on above: Performed By: #### A UNRULY, VALPR, CBC, ADIFF, BMP, GFR, AMM #### [place] [address] Hgb 11.8 G/dL Low 12.0-16.0 [facility] ([place]) Comment on above: Performed By: #### A UNRULY, VALPR, CBC, ADIFF, BMP, GFR, AMM #### [place] [address] MCH (RBC) [Entitic mass] 28.3 pg Normal 27.0-31.2 [facility] ([place]) Comment on above: Performed By: #### A UNRULY, VALPR, CBC, ADIFF, BMP, GFR, AMM #### [place] [address] MCHC 34.2 G/dL Normal 33.0-37.0 [facility] ([place]) Comment on above: Performed By: #### A UNRULY, VALPR, CBC, ADIFF, BMP, GFR, AMM #### [place] [address] MCV (RBC) [Entitic vol] 82.8 fL Normal 80.0-94.0 [facility] ([place]) Comment on above: Performed By: #### A UNRULY, VALPR, CBC, ADIFF, BMP, GFR, AMM #### [place] [address] Platelet 255 10 3/mcL Normal 130-400 [facility] ([place]) Comment on above: Performed By: #### A UNRULY, VALPR, CBC, ADIFF, BMP, GFR, AMM #### [place] [address] Platelet mean volume (Bld) [Entitic vol] 7.5 fL Normal 7.4-10.4 [facility] ([place]) Comment on above: Performed By: #### A UNRULY, VALPR, CBC, ADIFF, BMP, GFR, AMM #### [place] [address] RBC 4.17 10 6/mcL Low 4.20-5.40 [facility] ([place]) Comment on above: Performed By: #### A UNRULY, VALPR, CBC, ADIFF, BMP, GFR, AMM #### [place] [address] WBC 11.4 10 3/mcL High 4.6-10.8 [facility] ([place]) Comment on above: Performed By: #### A UNRULY, VALPR, CBC, ADIFF, BMP, GFR, AMM #### [place] [address] FEon 08-02-2023 Iron [Mass/Vol] 63 ug/dL Normal 50-170 [facility] ([place]) Comment on above: Performed By: #### A UNRULY, VALPR, CBC, ADIFF, BMP, GFR, AMM #### [place] [address] Lety 08-02-2023 Ferritin [Mass/Vol] 57.0 ng/mL Normal 8.0-252.0 [facility] ([place]) Comment on above: Performed By: #### A UNRULY, VALPR, CBC, ADIFF, BMP, GFR, AMM #### [place] [address] FESon 08-02-2023 Iron Sat 14 % Normal [facility] ([place]) Comment on above: Performed By: #### A UNRULY, VALPR, CBC, ADIFF, BMP, GFR, AMM #### [place] [address] TIBC 453 mcg/dL High 250-450 [facility] ([place]) Comment on above: Performed By: #### A UNRULY, VALPR, CBC, ADIFF, BMP, GFR, AMM #### [place] [address] LABORATORYOrdered By: Brigitte Tovar on 08-02-2023 Appearance [...] 08-02-2023 PTH, Intact 89.7 pg/mL High 18.5-88.0 [facility] ([place]) Comment on above: Performed By: #### A UNRULY, VALPR, CBC, ADIFF, BMP, GFR, AMM #### [address] [address] RFPon 08-02-2023 Albumin Level 3.4 G/dL Normal 3.4-4.8 [facility] ([place]) Comment on above: Performed By: #### A UNRULY, VALPR, CBC, ADIFF, BMP, GFR, AMM #### [address] [address] BUN/Creatinine Ratio 15 ratio Normal 7-27 [facility] ([place]) Comment on above: Performed By: #### A UNRULY, VALPR, CBC, ADIFF, BMP, GFR, AMM #### [address] [address] Calcium [Mass/Vol] 10.3 mg/dL High 8.4-10.2 [facility] ([place]) Comment on above: Performed By: #### A UNRULY, VALPR, CBC, ADIFF, BMP, GFR, AMM #### [address] [address] Chloride [Moles/Vol] 100 mmol/L Normal 98-107 [facility] ([place]) Comment on above: Performed By: #### A UNRULY, VALPR, CBC, ADIFF, BMP, GFR, AMM #### [address] [address] CO2 [Moles/Vol] 25 mmol/L Normal 23-31 [facility] ([place]) Comment on above: Performed By: #### A UNRULY, VALPR, CBC, ADIFF, BMP, GFR, AMM #### [address] [address] Creatinine [Mass/Vol] 1.14 mg/dL High 0.55-1.02 [facility] ([place]) Comment on above: Performed By: #### A UNRULY, VALPR, CBC, ADIFF, BMP, GFR, AMM #### [address] [address] Electrolyte Balance 12.0 mEq/L Normal 4.0-15.0 [facility] ([place]) Comment on above: Performed By: #### A UNRULY, VALPR, CBC, ADIFF, BMP, GFR, AMM #### [address] [address] Glucose [Mass/Vol] 90 mg/dL Normal 80-115 [facility] ([place]) Comment on above: Performed By: #### A UNRULY, VALPR, CBC, ADIFF, BMP, GFR, AMM #### [place] [id number] Phosphate [Mass/Vol] 3.4 mg/dL Normal 2.3-4.1 [facility] ([place]) Comment on above: Performed By: #### A UNRULY, VALPR, CBC, ADIFF, BMP, GFR, AMM #### [address] [address] Potassium [Moles/Vol] 5.0 mmol/L Normal 3.5-5.1 [facility] ([place]) Comment on above: Performed By: #### A UNRULY, VALPR, CBC, ADIFF, BMP, GFR, AMM #### [address] [address] Sodium [Moles/Vol] 137 mmol/L Normal 136-145 [facility] ([place]) Comment on above: Performed By: #### A UNRULY, VALPR, CBC, ADIFF, BMP, GFR, AMM #### [address] [address] Urea nitrogen [Mass/Vol] 17 mg/dL Normal 7-18 [facility] ([place]) Comment on above: Performed By: #### A UNRULY, VALPR, CBC, ADIFF, BMP, GFR, AMM #### [place] [id number] RPCURon 08-02-2023 U Creatinine 69.1 mg/dL Normal 28.0-117.0 [facility] ([place]) Comment on above: Performed By: #### A UNRULY, VALPR, CBC, ADIFF, BMP, GFR, AMM #### [place] [id number] U Protein 9 mg/dL Normal 0-11 [facility] ([place]) Comment on above: Performed By: #### A UNRULY, VALPR, CBC, ADIFF, BMP, GFR, AMM #### [place] [address] U Ratio Prot/Creat 0.1 ratio Normal [facility] ([place]) Comment on above: Result Comment: resu lt calculated by rule GL_UR_PROT_[id number]_OLD (U Protein/U Creatinine) Performed By: #### A UNRULY, VALPR, CBC, ADIFF, BMP, GFR, AMM #### [place] [address] SPEon 08-02-2023 Total Protein 8.4 G/dL High 5.7-8.2 [facility] ([place]) Comment on above: Result Comment: No te - New Reference Range in effect 19 Performed By: #### A UNRULY, VALPR, CBC, ADIFF, BMP, GFR, AMM #### [place] [id number] UAon 08-02-2023 Color (U) Yellow Normal [facility] ([place]) Comment on above: Performed By: #### A UNRULY, VALPR, CBC, ADIFF, BMP, GFR, AMM #### [place] [address] Glucose (U) [Mass/Vol] Negative Normal Negative [facility] ([place]) Comment on above: Performed By: #### A UNRULY, VALPR, CBC, ADIFF, BMP, GFR, AMM #### [place] [id number] Ketones Ql (U) Negative Normal Negative [facility] ([place]) Comment on above: Performed By: #### A UNRULY, VALPR, CBC, ADIFF, BMP, GFR, AMM #### [address] [address] UA Appear Clear Normal Clear [facility] ([place]) Comment on above: Performed By: #### A UNRULY, VALPR, CBC, ADIFF, BMP, GFR, AMM #### [address] [address] UA Blood Negative Normal Negative [facility] ([place]) Comment on above: Performed By: #### A UNRULY, VALPR, CBC, ADIFF, BMP, GFR, AMM #### [address] [address] UA Leuk Est Trace Abnormal Negative [facility] ([place]) Comment on above: Performed By: #### A UNRULY, VALPR, CBC, ADIFF, BMP, GFR, AMM #### [address] [address] UA Nitrite Negative Normal Negative [facility] ([place]) Comment on above: Performed By: #### A UNRULY, VALPR, CBC, ADIFF, BMP, GFR, AMM #### [address] [address] UA pH 7.0 Normal 5.0 - 8.0 [facility] ([place]) Comment on above: Performed By: #### A UNRULY, VALPR, CBC, ADIFF, BMP, GFR, AMM #### [address] [address] UA Protein Negative Normal Negative [facility] ([place]) Comment on above: Performed By: #### A UNRULY, VALPR, CBC, ADIFF, BMP, GFR, AMM #### [place] [id number] UA Spec Grav 1.020 Normal 1.015-1.025 [facility] ([place]) Comment on above: Performed By: #### A UNRULY, VALPR, CBC, ADIFF, BMP, GFR, AMM #### [place] [id number] UA Specimen Type Clean Catch Normal [facility] ([place]) Comment on above: Performed By: #### A UNRULY, VALPR, CBC, ADIFF, BMP, GFR, AMM #### [place] [address] UA Urobilinogen 0.2 E.U./dL Normal 0.2-1.0 [facility] ([place]) Comment on above: Performed By: #### A UNRULY, VALPR, CBC, ADIFF, BMP, GFR, AMM #### [place] [address] Urobilinogen (U) [Mass/Vol] Negative Normal Negative [facility] ([place]) Comment on above: Performed By: #### A UNRULY, VALPR, CBC, ADIFF, BMP, GFR, AMM #### [place] [address] URICon 08-02-2023 Uric Acid Lvl 8.6 mg/dL High 2.6-6.2 [facility] ([place]) Comment on above: Performed By: #### A UNRULY, VALPR, CBC, ADIFF, BMP, GFR, AMM #### [place] [address] VIDHon 08-02-2023 Vit. D 25-Hydroxy 92.5 ng/mL Normal [facility] ([place]) Comment on above: Result Comment: Inte rpretive Values Based on Total 25(OH) Vitamin D: Deficient <20 ng/mL Insufficient 20 - <30 ng/mL Sufficient 30-100 ng/mL Performed By: #### A UNRULY, VALPR, CBC, ADIFF, BMP, GFR, AMM #### [place] [address] KEPPRAon 06-21-2023 Levetiracetam Lvl 102.0 Normal [facility] ([place]) Comment on above: Order Comment: WRONG ENCOUNTER DONT CANCEL Performed By: #### A UNRULY, VALPR, CBC, ADIFF, BMP, GFR, AMM #### [place] [address] RENINon 06-21-2023 Renin Activity 30.750 Normal [facility] ([place]) Comment on above: Order Comment: WRONG ENCOUNTER DONT CANCEL Performed By: #### A UNRULY, VALPR, CBC, ADIFF, BMP, GFR, AMM #### [address] [address] LABORATORYOrdered By: Jasmyne Cintron on 06-20-2023 Albumin DL <= 20 mg/L (U) [Mass/Vol] 680 mcg/dL Invalid Interpretation Code AO ADM SS Albumin/Creatinine DL <= 20 mg/L (U) [Mass ratio] 16 mcg/mg Normal 0 - 30 mcg/mg AO ADM SS Creatinine (U) [Mass/Vol] 41.7 mg/dL Normal 28.0 - 117.0 mg/dL AO ADM SS MALBRon 06-20-2023 U Creatinine 41.7 mg/dL Normal 28.0-117.0 [facility] ([place]) Comment on above: Performed By: #### A UNRULY, VALPR, CBC, ADIFF, BMP, GFR, AMM #### [address] [address] U Microalb 680 mcg/dL Normal [facility] ([place]) Comment on above: Performed By: #### A UNRULY, VALPR, CBC, ADIFF, BMP, GFR, AMM #### [address] [address] U Ratio Alb/Cre 16 mcg/mg Normal 0-30 [facility] ([place]) Comment on above: Performed By: #### A UNRULY, VALPR, CBC, ADIFF, BMP, GFR, AMM #### [address] [address] KEPPRAon 06-17-2023 Levetiracetam Lvl Not performed Normal [facility] ([place]) Comment on above: Result Comment: Test not performed. Test cancelled by Healthcare provider after order was submitted to [facility]. Contacted by Viji Carrero at your facility 06.17.2023 Performed At: [facility] [address] [id number] Yan Sanchez MD Ph:[phone] Performed By: #### A UNRULY, VALPR, CBC, ADIFF, BMP, GFR, AMM #### [address] [address] .Auto Diffon 06-15-2023 Basophil, Absolute 0.0 10 3/mcL Normal 0.0-0.2 [facility] ([place]) Comment on above: Performed By: #### A UNRULY, VALPR, CBC, ADIFF, BMP, GFR, AMM #### [address] [address] Basophils/100 WBC (Bld) 0.4 % Normal 0.0-2.5 [facility] ([place]) Comment on above: Performed By: #### A UNRULY, VALPR, CBC, ADIFF, BMP, GFR, AMM #### [address] [address] Eosinophil, Absolute 0.2 10 3/mcL Normal 0.0-0.4 [facility] ([place]) Comment on above: Performed By: #### A UNRULY, VALPR, CBC, ADIFF, BMP, GFR, AMM #### [address] [address] Eosinophils/100 WBC (Bld) 1.6 % Normal 0.0-7.0 [facility] ([place]) Comment on above: Performed By: #### A UNRULY, VALPR, CBC, ADIFF, BMP, GFR, AMM #### [address] [address] Lymphocyte, Absolute 3.1 10 3/mcL Normal 0.8-3.9 [facility] ([place]) Comment on above: Performed By: #### A UNRULY, VALPR, CBC, ADIFF, BMP, GFR, AMM #### [address] [address] Lymphocytes/100 WBC (Bld) 27.5 % Normal 10.0-50.0 [facility] ([place]) Comment on above: Performed By: #### A UNRULY, VALPR, CBC, ADIFF, BMP, GFR, AMM #### [address] [address] Monocyte, Absolute 1.0 10 3/mcL Normal 0.2-1.0 [facility] ([place]) Comment on above: Performed By: #### A UNRULY, VALPR, CBC, ADIFF, BMP, GFR, AMM #### [address] [address] Monocytes/100 WBC (Bld) 8.8 % Normal 1.7-13.0 [facility] ([place]) Comment on above: Performed By: #### A UNRULY, VALPR, CBC, ADIFF, BMP, GFR, AMM #### [address] [address] Neutrophils/100 WBC (Bld) 61.7 % Normal 37.0-80.0 [facility] ([place]) Comment on above: Performed By: #### A UNRULY, VALPR, CBC, ADIFF, BMP, GFR, AMM #### [address] [address] .GFRon 06-15-2023 GFR Non- 42 ml/min/1.73sqm Normal [facility] ([place]) Comment on above: Result Comment: GFR Population [...] VALPR, CBC, ADIFF, BMP, GFR, AMM #### [address] [address] GFR 51 ml/min/1.73sqm Normal [facility] ([place]) Comment on above: Result Comment: GFR Population [...] VALPR, CBC, ADIFF, BMP, GFR, AMM #### [place] [address] .NEUABSon 06-15-2023 Neutrophil, Absolute 6.9 10 3/mcL High 2.9-6.2 [facility] ([place]) Comment on above: Performed By: #### A UNRULY, VALPR, CBC, ADIFF, BMP, GFR, AMM #### [place] [address] A1Con 06-15-2023 HbA1c (Bld) [Mass fraction] 5.6 % Normal 4.3-6.4 [facility] ([place]) Comment on above: Performed By: #### A UNRULY, VALPR, CBC, ADIFF, BMP, GFR, AMM #### [place] [id number] CBCon 06-15-2023 Erythrocyte distribution width (RBC) [Ratio] 14.9 % High 11.5-14.5 [facility] ([place]) Comment on above: Performed By: #### A UNRULY, VALPR, CBC, ADIFF, BMP, GFR, AMM #### [place] [address] Hematocrit (Bld) [Volume fraction] 34.8 % Low 37.0-47.0 [facility] ([place]) Comment on above: Performed By: #### A UNRULY, VALPR, CBC, ADIFF, BMP, GFR, AMM #### [place] [address] Hgb 11.7 G/dL Low 12.0-16.0 [facility] ([place]) Comment on above: Performed By: #### A UNRULY, VALPR, CBC, ADIFF, BMP, GFR, AMM #### [place] [address] MCH (RBC) [Entitic mass] 28.3 pg Normal 27.0-31.2 [facility] ([place]) Comment on above: Performed By: #### A UNRULY, VALPR, CBC, ADIFF, BMP, GFR, AMM #### [place] [address] MCHC 33.6 G/dL Normal 33.0-37.0 [facility] ([place]) Comment on above: Performed By: #### A UNRULY, VALPR, CBC, ADIFF, BMP, GFR, AMM #### [place] [address] MCV (RBC) [Entitic vol] 84.3 fL Normal 80.0-94.0 [facility] ([place]) Comment on above: Performed By: #### A UNRULY, VALPR, CBC, ADIFF, BMP, GFR, AMM #### [place] [address] Platelet 290 10 3/mcL Normal 130-400 [facility] ([place]) Comment on above: Performed By: #### A UNRULY, VALPR, CBC, ADIFF, BMP, GFR, AMM #### [place] [address] Platelet mean volume (Bld) [Entitic vol] 8.7 fL Normal 7.4-10.4 [facility] ([place]) Comment on above: Performed By: #### A UNRULY, VALPR, CBC, ADIFF, BMP, GFR, AMM #### [place] [address] RBC 4.13 10 6/mcL Low 4.20-5.40 [facility] ([place]) Comment on above: Performed By: #### A UNRULY, VALPR, CBC, ADIFF, BMP, GFR, AMM #### [place] [address] WBC 11.2 10 3/mcL High 4.6-10.8 [facility] ([place]) Comment on above: Performed By: #### A UNRULY, VALPR, CBC, ADIFF, BMP, GFR, AMM #### [place] [address] CMPon 06-15-2023 Albumin Level 3.1 G/dL Low 3.4-4.8 [facility] ([place]) Comment on above: Performed By: #### A UNRULY, VALPR, CBC, ADIFF, BMP, GFR, AMM #### [place] [address] Albumin/Globulin [Mass ratio] 0.7 {ratio} Low 1.1-2.5 [facility] ([place]) Comment on above: Performed By: #### A UNRULY, VALPR, CBC, ADIFF, BMP, GFR, AMM #### [place] [address] ALP [Catalytic activity/Vol] 70 U/L Normal 40-135 [facility] ([place]) Comment on above: Performed By: #### A UNRULY, VALPR, CBC, ADIFF, BMP, GFR, AMM #### [place] [address] ALT [Catalytic activity/Vol] 30 U/L Normal 14-59 [facility] ([place]) Comment on above: Performed By: #### A UNRULY, VALPR, CBC, ADIFF, BMP, GFR, AMM #### [place] [id number] AST [Catalytic activity/Vol] 31 U/L Normal 10-40 [facility] ([place]) Comment on above: Performed By: #### A UNRULY, VALPR, CBC, ADIFF, BMP, GFR, AMM #### [place] [id number] Bili Total 0.2 mg/dL Normal 0.2-1.0 [facility] ([place]) Comment on above: Result Comment: Use of this assay is not recommended for patients undergoing treatment with eltrombopag due to the potential for falsely elevated results. Performed By: #### A UNRULY, VALPR, CBC, ADIFF, BMP, GFR, AMM #### [address] [address] BUN/Creatinine Ratio 17 ratio Normal 7-27 [facility] ([place] Comment on above: Performed By: #### A UNRULY, VALPR, CBC, ADIFF, BMP, GFR, AMM #### [address] [address] Calcium [Mass/Vol] 10.1 mg/dL Normal 8.4-10.2 [facility] ([place]) Comment on above: Performed By: #### A UNRULY, VALPR, CBC, ADIFF, BMP, GFR, AMM #### [address] [address] Chloride [Moles/Vol] 99 mmol/L Normal 98-107 [facility] ([place] Comment on above: Performed By: #### A UNRULY, VALPR, CBC, ADIFF, BMP, GFR, AMM #### [place] [id number] CO2 [Moles/Vol] 24 mmol/L Normal 23-31 [facility] ([place]) Comment on above: Performed By: #### A UNRULY, VALPR, CBC, ADIFF, BMP, GFR, AMM #### [address] [address] Creatinine [Mass/Vol] 1.28 mg/dL High 0.55-1.02 [facility] ([place]) Comment on above: Performed By: #### A UNRULY, VALPR, CBC, ADIFF, BMP, GFR, AMM #### [address] [address] Electrolyte Balance 14.0 mEq/L Normal 4.0-15.0 [facility] ([place]) Comment on above: Performed By: #### A UNRULY, VALPR, CBC, ADIFF, BMP, GFR, AMM #### [address] [address] Globulin 4.7 G/dL Normal [facility] ([place]) Comment on above: Performed By: #### A UNRULY, VALPR, CBC, ADIFF, BMP, GFR, AMM #### [address] [address] Glucose [Mass/Vol] 167 mg/dL High 80-115 [facility] ([place]) Comment on above: Performed By: #### A UNRULY, VALPR, CBC, ADIFF, BMP, GFR, AMM #### [address] [address] Potassium [Moles/Vol] 3.6 mmol/L Normal 3.5-5.1 [facility] ([place]) Comment on above: Performed By: #### A UNRULY, VALPR, CBC, ADIFF, BMP, GFR, AMM #### [place] [id number] Sodium [Moles/Vol] 137 mmol/L Normal 136-145 [facility] ([place]) Comment on above: Performed By: #### A UNRULY, VALPR, CBC, ADIFF, BMP, GFR, AMM #### [place] [id number] Total Protein 7.8 G/dL Normal 6.4-8.2 [facility] ([place]) Comment on above: Performed By: #### A UNRULY, VALPR, CBC, ADIFF, BMP, GFR, AMM #### [place] [id number] Urea nitrogen [Mass/Vol] 22 mg/dL High 7-18 [facility] ([place]) Comment on above: Performed By: #### A UNRULY, VALPR, CBC, ADIFF, BMP, GFR, AMM #### [address] [address] LIPIDon 06-15-2023 Cholesterol [Mass/Vol] 122 mg/dL Normal 0-200 [facility] ([place]) Comment on above: Result Comment: Chol esterol Reference Interval: Less than 200 Desirable 200-239 Borderline high risk 240 and above High risk Performed By: #### A UNRULY, VALPR, CBC, ADIFF, BMP, GFR, AMM #### [address] [address] Cholesterol in HDL [Mass/Vol] 37 mg/dL Low 40-60 [facility] ([place]) Comment on above: Performed By: #### A UNRULY, VALPR, CBC, ADIFF, BMP, GFR, AMM #### [place] [address] Cholesterol in LDL [Mass/Vol] 31 mg/dL Normal 0-130 [facility] ([place]) Comment on above: Performed By: #### A UNRULY, VALPR, CBC, ADIFF, BMP, GFR, AMM #### [place] [address] Triglyceride [Mass/Vol] 270 mg/dL High 0-150 [facility] ([place]) Comment on above: Performed By: #### A UNRULY, VALPR, CBC, ADIFF, BMP, GFR, AMM #### [place] [address] PTHon 06-15-2023 PTH, Intact 52.9 pg/mL Normal 18.5-88.0 [facility] ([place]) Comment on above: Performed By: #### A UNRULY, VALPR, CBC, ADIFF, BMP, GFR, AMM #### [place] [address] VALPRon 06-15-2023 LDose Valproic Acid: Unknown Normal [facility] ([place]) Comment on above: Performed By: #### A UNRULY, VALPR, CBC, ADIFF, BMP, GFR, AMM #### [place] [address] Valproic Acid Lvl 130 mcg/mL High 50-100 [facility] ([place]) Comment on above: Performed By: #### A UNRULY, VALPR, CBC, ADIFF, BMP, GFR, AMM #### [place] [address] VIDHon 06-15-2023 Vit. D 25-Hydroxy 87.8 ng/mL Normal [facility] ([place]) Comment on above: Result Comment: Inte rpretive Values Based on Total 25(OH) Vitamin D: Deficient <20 ng/mL Insufficient 20 - <30 ng/mL Sufficient 30-100 ng/mL Performed By: #### A UNRULY, VALPR, CBC, ADIFF, BMP, GFR, AMM #### [address] [address] .Auto Diffon 06-14-2023 Basophil, Absolute 0.0 10 3/mcL Normal 0.0-0.2 [facility] ([place]) Comment on above: Performed By: #### A UNRULY, VALPR, CBC, ADIFF, BMP, GFR, AMM #### [address] [address] Basophils/100 WBC (Bld) 0.4 % Normal 0.0-2.5 [facility] ([place]) Comment on above: Performed By: #### A UNRULY, VALPR, CBC, ADIFF, BMP, GFR, AMM #### [address] [address] Eosinophil, Absolute 0.2 10 3/mcL Normal 0.0-0.4 [facility] ([place]) Comment on above: Performed By: #### A UNRULY, VALPR, CBC, ADIFF, BMP, GFR, AMM #### [address] [address] Eosinophils/100 WBC (Bld) 1.6 % Normal 0.0-7.0 [facility] ([place]) Comment on above: Performed By: #### A UNRULY, VALPR, CBC, ADIFF, BMP, GFR, AMM #### [address] [address] Lymphocyte, Absolute 3.1 10 3/mcL Normal 0.8-3.9 [facility] ([place]) Comment on above: Performed By: #### A UNRULY, VALPR, CBC, ADIFF, BMP, GFR, AMM #### [address] [address] Lymphocytes/100 WBC (Bld) 27.5 % Normal 10.0-50.0 [facility] ([place]) Comment on above: Performed By: #### A UNRULY, VALPR, CBC, ADIFF, BMP, GFR, AMM #### [address] [address] Monocyte, Absolute 1.0 10 3/mcL Normal 0.2-1.0 [facility] ([place]) Comment on above: Performed By: #### A UNRULY, VALPR, CBC, ADIFF, BMP, GFR, AMM #### [address] [address] Monocytes/100 WBC (Bld) 8.8 % Normal 1.7-13.0 [facility] ([place]) Comment on above: Performed By: #### A UNRULY, VALPR, CBC, ADIFF, BMP, GFR, AMM #### [address] [address] Neutrophils/100 WBC (Bld) 61.7 % Normal 37.0-80.0 [facility] ([place]) Comment on above: Performed By: #### A UNRULY, VALPR, CBC, ADIFF, BMP, GFR, AMM #### [address] [address] .GFRon 06-14-2023 GFR 51 ml/min/1.73sqm Normal [facility] ([place]) Comment on above: Result Comment: GFR Population [...] VALPR, CBC, ADIFF, BMP, GFR, AMM #### [address] [address] GFR Non- 42 ml/min/1.73sqm Normal [facility] ([place]) Comment on above: Result Comment: GFR Population [...] VALPR, CBC, ADIFF, BMP, GFR, AMM #### [place] [address] .NEUABSon 06-14-2023 Neutrophil, Absolute 6.9 10 3/mcL High 2.9-6.2 [facility] ([place]) Comment on above: Performed By: #### A UNRULY, VALPR, CBC, ADIFF, BMP, GFR, AMM #### [place] [address] A1Con 06-14-2023 HbA1c (Bld) [Mass fraction] 5.6 % Normal 4.3-6.4 [facility] ([place]) Comment on above: Performed By: #### A UNRULY, VALPR, CBC, ADIFF, BMP, GFR, AMM #### [place] [id number] CBCon 06-14-2023 Erythrocyte distribution width (RBC) [Ratio] 14.9 % High 11.5-14.5 [facility] ([place]) Comment on above: Performed By: #### A UNRULY, VALPR, CBC, ADIFF, BMP, GFR, AMM #### [place] [address] Hematocrit (Bld) [Volume fraction] 34.8 % Low 37.0-47.0 [facility] ([place]) Comment on above: Performed By: #### A UNRULY, VALPR, CBC, ADIFF, BMP, GFR, AMM #### [place] [address] Hgb 11.7 G/dL Low 12.0-16.0 [facility] ([place]) Comment on above: Performed By: #### A UNRULY, VALPR, CBC, ADIFF, BMP, GFR, AMM #### [place] [address] MCH (RBC) [Entitic mass] 28.3 pg Normal 27.0-31.2 [facility] ([place]) Comment on above: Performed By: #### A UNRULY, VALPR, CBC, ADIFF, BMP, GFR, AMM #### [place] [address] MCHC 33.6 G/dL Normal 33.0-37.0 [facility] ([place]) Comment on above: Performed By: #### A UNRULY, VALPR, CBC, ADIFF, BMP, GFR, AMM #### [place] [address] MCV (RBC) [Entitic vol] 84.3 fL Normal 80.0-94.0 [facility] ([place]) Comment on above: Performed By: #### A UNRULY, VALPR, CBC, ADIFF, BMP, GFR, AMM #### [place] [address] Platelet 290 10 3/mcL Normal 130-400 [facility] ([place]) Comment on above: Performed By: #### A UNRULY, VALPR, CBC, ADIFF, BMP, GFR, AMM #### [place] [address] Platelet mean volume (Bld) [Entitic vol] 8.7 fL Normal 7.4-10.4 [facility] ([place]) Comment on above: Performed By: #### A UNRULY, VALPR, CBC, ADIFF, BMP, GFR, AMM #### [place] [address] RBC 4.13 10 6/mcL Low 4.20-5.40 [facility] ([place]) Comment on above: Performed By: #### A UNRULY, VALPR, CBC, ADIFF, BMP, GFR, AMM #### [place] [address] WBC 11.2 10 3/mcL High 4.6-10.8 [facility] ([place]) Comment on above: Performed By: #### A UNRULY, VALPR, CBC, ADIFF, BMP, GFR, AMM #### [place] [address] CMPon 06-14-2023 Albumin Level 3.1 G/dL Low 3.4-4.8 [facility] ([place]) Comment on above: Performed By: #### A UNRULY, VALPR, CBC, ADIFF, BMP, GFR, AMM #### [place] [address] Albumin/Globulin [Mass ratio] 0.7 {ratio} Low 1.1-2.5 [facility] ([place]) Comment on above: Performed By: #### A UNRULY, VALPR, CBC, ADIFF, BMP, GFR, AMM #### [place] [address] ALP [Catalytic activity/Vol] 70 U/L Normal 40-135 [facility] ([place]) Comment on above: Performed By: #### A UNRULY, VALPR, CBC, ADIFF, BMP, GFR, AMM #### [place] [address] ALT [Catalytic activity/Vol] 30 U/L Normal 14-59 [facility] ([place]) Comment on above: Performed By: #### A UNRULY, VALPR, CBC, ADIFF, BMP, GFR, AMM #### [place] [id number] AST [Catalytic activity/Vol] 31 U/L Normal 10-40 [facility] ([place]) Comment on above: Performed By: #### A UNRULY, VALPR, CBC, ADIFF, BMP, GFR, AMM #### [place] [id number] Bili Total 0.2 mg/dL Normal 0.2-1.0 [facility] ([place]) Comment on above: Result Comment: Use of this assay is not recommended for patients undergoing treatment with eltrombopag due to the potential for falsely elevated results. Performed By: #### A UNRULY, VALPR, CBC, ADIFF, BMP, GFR, AMM #### [address] [address] BUN/Creatinine Ratio 17 ratio Normal 7-27 [facility] ([place]) Comment on above: Performed By: #### A UNRULY, VALPR, CBC, ADIFF, BMP, GFR, AMM #### [address] [address] Calcium [Mass/Vol] 10.1 mg/dL Normal 8.4-10.2 [facility] ([place]) Comment on above: Performed By: #### A UNRULY, VALPR, CBC, ADIFF, BMP, GFR, AMM #### [address] [address] Chloride [Moles/Vol] 99 mmol/L Normal 98-107 [facility] ([place]) Comment on above: Performed By: #### A UNRULY, VALPR, CBC, ADIFF, BMP, GFR, AMM #### [place] [id number] CO2 [Moles/Vol] 24 mmol/L Normal 23-31 [facility] ([place]) Comment on above: Performed By: #### A UNRULY, VALPR, CBC, ADIFF, BMP, GFR, AMM #### [address] [address] Creatinine [Mass/Vol] 1.28 mg/dL High 0.55-1.02 [facility] ([place]) Comment on above: Performed By: #### A UNRULY, VALPR, CBC, ADIFF, BMP, GFR, AMM #### [address] [address] Electrolyte Balance 14.0 mEq/L Normal 4.0-15.0 [facility] ([place]) Comment on above: Performed By: #### A UNRULY, VALPR, CBC, ADIFF, BMP, GFR, AMM #### [address] [address] Globulin 4.7 G/dL Normal [facility] ([place]) Comment on above: Performed By: #### A UNRULY, VALPR, CBC, ADIFF, BMP, GFR, AMM #### [address] [address] Glucose [Mass/Vol] 167 mg/dL High 80-115 [facility] ([place]) Comment on above: Performed By: #### A UNRULY, VALPR, CBC, ADIFF, BMP, GFR, AMM #### [address] [address] Potassium [Moles/Vol] 3.6 mmol/L Normal 3.5-5.1 [facility] ([place]) Comment on above: Performed By: #### A UNRULY, VALPR, CBC, ADIFF, BMP, GFR, AMM #### [place] [id number] Sodium [Moles/Vol] 137 mmol/L Normal 136-145 [facility] ([place]) Comment on above: Performed By: #### A UNRULY, VALPR, CBC, ADIFF, BMP, GFR, AMM #### [place] [id number] Total Protein 7.8 G/dL Normal 6.4-8.2 [facility] ([place]) Comment on above: Performed By: #### A UNRULY, VALPR, CBC, ADIFF, BMP, GFR, AMM #### [place] [address] Urea nitrogen [Mass/Vol] 22 mg/dL High 7-18 [facility] ([place]) Comment on above: Performed By: #### A UNRULY, VALPR, CBC, ADIFF, BMP, GFR, AMM #### [address] [address] LABORATORYOrdered By: Sayda Odonnell on 06-14-2023 25-hydroxyvitamin [...] Cholesterol [Mass/Vol] 122 mg/dL Normal 0-200 [facility] ([place]) Comment on above: Result Comment: Chol esterol Reference Interval: Less than 200 Desirable 200-239 Borderline high risk 240 and above High risk Performed By: #### A UNRULY, VALPR, CBC, ADIFF, BMP, GFR, AMM #### [address] [address] Cholesterol in HDL [Mass/Vol] 37 mg/dL Low 40-60 [facility] ([place]) Comment on above: Performed By: #### A UNRULY, VALPR, CBC, ADIFF, BMP, GFR, AMM #### [address] [address] Cholesterol in LDL [Mass/Vol] 31 mg/dL Normal 0-130 [facility] ([place]) Comment on above: Performed By: #### A UNRULY, VALPR, CBC, ADIFF, BMP, GFR, AMM #### [address] [address] Triglyceride [Mass/Vol] 270 mg/dL High 0-150 [facility] ([place]) Comment on above: Performed By: #### A UNRULY, VALPR, CBC, ADIFF, BMP, GFR, AMM #### [address] [address] VALPRon 06-14-2023 LDose Valproic Acid: Unknown Normal [facility] ([place]) Comment on above: Performed By: #### A UNRULY, VALPR, CBC, ADIFF, BMP, GFR, AMM #### [address] [address] Valproic Acid Lvl 130 mcg/mL High 50-100 [facility] ([place]) Comment on above: Performed By: #### A UNRULY, VALPR, CBC, ADIFF, BMP, GFR, AMM #### [address] [address] VIDHon 06-14-2023 Vit. D 25-Hydroxy 87.8 ng/mL Normal [facility] ([place]) Comment on above: Result Comment: Inte rpretive Values Based on Total 25(OH) Vitamin D: Deficient <20 ng/mL Insufficient 20 - <30 ng/mL Sufficient 30-100 ng/mL Performed By: #### A UNRULY, VALPR, CBC, ADIFF, BMP, GFR, AMM #### [place] [address] LABORATORYOrdered By: Jasmyne Foster on 06-13-2023 25-hydroxyvitamin [...] - 88.0 pg/mL ADM SS LABORATORYOrdered By: [employer] P CONTRIBUTOR_SYSTEM on 06-13-2023 Levetiracetam Lvl (LC) Not performed Invalid Interpretation Code AO Sendouts Comment on above: Result Comment: Test not performed. Test cancelled by Healthcare provider after order was submitted to [facility]. Contacted by Viji Carrero at your facility 06.17.2023 Performed At: [facility] [address] [id number] Yan Sanchez MD Ph:[phone] RENINDon 12-18-2022 Direct Renin 187.7 pg/mL High 3.6-81.6 [facility] ([place]) Comment on above: Result Comment: A ra [...] Age >=41 years: 2.5-45.1 pg/mL Performed By: [facility] [address] [place] [address] Retirement Sales Consultant: Rigoberto Burgos III, M.D. CLIA#: [id number] Performed By: #### A UNRULY, VALPR, CBC, ADIFF, BMP, GFR, AMM #### [place] [address] Patient Upright or Supine Upright Normal [facility] ([place]) Comment on above: Result Comment: Perf ormed By: [place] [address] Retirement Sales Consultant: Rigoberto Burgos III, M.D. CLIA#: [id number] Performed By: #### A UNRULY, VALPR, CBC, ADIFF, BMP, GFR, AMM #### [place] [address] KEPPRAon 12-14-2022 Levetiracetam Lvl 99.1 UG/ML High 12.0-46.0 [facility] ([place]) Comment on above: Result Comment: This test [...] developed and its performance characteristics determined by [facility]'s [facility] [place] ([facility] It has not been cleared or approved by the FDA. [facility] is regulated under CLIA as qualified to perform high-complexity testing. This test is used for clinical purposes. It should not be regarded as investigational or for research. Performed By: [facility] [address] [place] [id number] Retirement Sales Consultant: Rigoberto Burgos III, M.D. CLIA#: [id number] Performed By: #### A UNRULY, VALPR, CBC, ADIFF, BMP, GFR, AMM #### [place] [address] PTHon 12-14-2022 PTH, Intact 62.8 pg/mL Normal 18.5-88.0 [facility] ([place]) Comment on above: Performed By: #### A UNRULY, VALPR, CBC, ADIFF, BMP, GFR, AMM #### [place] [address] .Auto Diffon 12-13-2022 Basophil, Absolute 0.1 10 3/mcL Normal 0.0-0.2 [facility] ([place]) Comment on above: Performed By: #### T SH, LIPID, GFR, ANEU, CMP, PTH, A1C, CBC, VIDH, ADIFF ####[place] [address]#### VALPR, LEVET, RENIND ####[facility]nj[facility] [place], [place] [address] Basophils/100 WBC (Bld) 0.7 % Normal 0.0-2.5 [facility] ([place]) Comment on above: Performed By: #### T SH, LIPID, GFR, ANEU, CMP, PTH, A1C, CBC, VIDH, ADIFF ####[place] [address]#### VALPR, LEVET, RENIND ####[facility] HospitalEhvtmfgpg0277 [place], [place] [address] Eosinophil, Absolute 0.1 10 3/mcL Normal 0.0-0.4 [facility] ([place]) Comment on above: Performed By: #### T SH, LIPID, GFR, ANEU, CMP, PTH, A1C, CBC, VIDH, ADIFF ####[place] [address]#### VALPR, LEVET, RENIND ####[facility] HospitalUirvskvpg9577 [place], [place] [address] Eosinophils/100 WBC (Bld) 1.1 % Normal 0.0-7.0 [facility] ([place]) Comment on above: Performed By: #### T SH, LIPID, GFR, ANEU, CMP, PTH, A1C, CBC, VIDH, ADIFF ####[place] [address]#### VALPR, LEVET, RENIND ####[place] [address] [place], [place] [address] Lymphocyte, Absolute 3.5 10 3/mcL Normal 0.8-3.9 [facility] ([place] Comment on above: Performed By: #### T SH, LIPID, GFR, ANEU, CMP, PTH, A1C, CBC, VIDH, ADIFF ####[place] [address]#### VALPR, LEVET, RENIND ####[place] [address] [place], [place] [address] Lymphocytes/100 WBC (Bld) 32.5 % Normal 10.0-50.0 [facility] ([place]) Comment on above: Performed By: #### T SH, LIPID, GFR, ANEU, CMP, PTH, A1C, CBC, VIDH, ADIFF ####[place] [address]#### VALPR, LEVET, RENIND ####[place] [address] [place], [place] [address] Monocyte, Absolute 1.3 10 3/mcL High 0.2-1.0 [facility] ([place]) Comment on above: Performed By: #### T SH, LIPID, GFR, ANEU, CMP, PTH, A1C, CBC, VIDH, ADIFF ####[place] [address]#### VALPR, LEVET, RENIND ####[place] [address] [place], [place] [address] Monocytes/100 WBC (Bld) 12.3 % Normal 1.7-13.0 [facility] ([place] Comment on above: Performed By: #### T SH, LIPID, GFR, ANEU, CMP, PTH, A1C, CBC, VIDH, ADIFF ####[place] [address]#### VALPR, LEVET, RENIND ####[place] [address] [place], [place] [address] Neutrophils/100 WBC (Bld) 53.4 % Normal 37.0-80.0 [facility] ([place]) Comment on above: Performed By: #### T SH, LIPID, GFR, ANEU, CMP, PTH, A1C, CBC, VIDH, ADIFF ####[address] [address]#### VALPR, LEVET, RENIND ####[place] [address] [place], [place] [address] .GFRon 12-13-2022 GFR Non- 47 ml/min/1.73sqm Normal [facility] ([place]) Comment on above: Result Comment: GFR Population [...] VALPR, CBC, ADIFF, BMP, GFR, AMM #### [address] [address] GFR 57 ml/min/1.73sqm Normal [facility] ([place]) Comment on above: Result Comment: GFR Population [...] VALPR, CBC, ADIFF, BMP, GFR, AMM #### [place] [address] .NEUABSon 12-13-2022 Neutrophil, Absolute 5.8 10 3/mcL Normal 2.9-6.2 [facility] ([place]) Comment on above: Performed By: #### T SH, LIPID, GFR, ANEU, CMP, PTH, A1C, CBC, VIDH, ADIFF ####[place] [address]#### VALPR, LEVET, RENIND ####[place] [address] [place], [place] [address] A1Con 12-13-2022 HbA1c (Bld) [Mass fraction] 5.9 % Normal 4.3-6.4 [facility] ([place]) Comment on above: Performed By: #### T SH, LIPID, GFR, ANEU, CMP, PTH, A1C, CBC, VIDH, ADIFF ####[place] [address]#### VALPR, LEVET, RENIND ####[facility] HospitalQgidwprfb2408 [place], [place] [address] CBCon 12-13-2022 Erythrocyte distribution width (RBC) [Ratio] 14.6 % High 11.5-14.5 [facility] ([place]) Comment on above: Performed By: #### T SH, LIPID, GFR, ANEU, CMP, PTH, A1C, CBC, VIDH, ADIFF ####[place] [address]#### VALPR, LEVET, RENIND ####[facility] HospitalUrvqgcfcv3201 [place], [place] [address] Hematocrit (Bld) [Volume fraction] 34.5 % Low 37.0-47.0 [facility] ([place]) Comment on above: Performed By: #### T SH, LIPID, GFR, ANEU, CMP, PTH, A1C, CBC, VIDH, ADIFF ####[place] [address]#### VALPR, LEVET, RENIND ####[place] BreauxOobpattzd[address] [place], [place] [address] Hgb 11.6 G/dL Low 12.0-16.0 [facility] ([place]) Comment on above: Performed By: #### T SH, LIPID, GFR, ANEU, CMP, PTH, A1C, CBC, VIDH, ADIFF ####[place] [address]#### VALPR, LEVET, RENIND ####[place] ElliottQxxmhmeoe25[address] [place] [phone] MCH (RBC) [Entitic mass] 27.9 pg Normal 27.0-31.2 [facility] ([place]) Comment on above: Performed By: #### T SH, LIPID, GFR, ANEU, CMP, PTH, A1C, CBC, VIDH, ADIFF ####[place] [address]#### VALPR, LEVET, RENIND ####[place] BreauxHdtotkkzy[address] [place] [phone] MCHC 33.7 G/dL Normal 33.0-37.0 [facility] ([place]) Comment on above: Performed By: #### T SH, LIPID, GFR, ANEU, CMP, PTH, A1C, CBC, VIDH, ADIFF ####[place] [address]#### VALPR, LEVET, RENIND ####[place] ElliottAmcpuquaq[address]297 [place] [id number] MCV (RBC) [Entitic vol] 82.9 fL Normal 80.0-94.0 [facility] ([place]) Comment on above: Performed By: #### T SH, LIPID, GFR, ANEU, CMP, PTH, A1C, CBC, VIDH, ADIFF ####[place] [address]#### VALPR, LEVET, RENIND ####[place] [address] [place], [place] [address] Platelet 261 10 3/mcL Normal 130-400 [facility] ([place]) Comment on above: Performed By: #### T SH, LIPID, GFR, ANEU, CMP, PTH, A1C, CBC, VIDH, ADIFF ####[place] [address]#### VALPR, LEVET, RENIND ####[place] [address] [place] [phone] Platelet mean volume (Bld) [Entitic vol] 7.8 fL Normal 7.4-10.4 [facility] ([place]) Comment on above: Performed By: #### T SH, LIPID, GFR, ANEU, CMP, PTH, A1C, CBC, VIDH, ADIFF ####[place] [address]#### VALPR, LEVET, RENIND ####[place] BreauxMcqlyjlzh[address] [place] [address] RBC 4.16 10 6/mcL Low 4.20-5.40 [facility] ([place]) Comment on above: Performed By: #### T SH, LIPID, GFR, ANEU, CMP, PTH, A1C, CBC, VIDH, ADIFF ####[place] [address]#### VALPR, LEVET, RENIND ####[place] BreauxBjbqlytml8323 [place] [id number] WBC 10.8 10 3/mcL Normal 4.6-10.8 [facility] ([place]) Comment on above: Performed By: #### T SH, LIPID, GFR, ANEU, CMP, PTH, A1C, CBC, VIDH, ADIFF ####[place] [address]#### VALPR, LEVET, RENIND ####[place] ElliottFxhfonkfj[address] [place], [place] [address] CMPon 12-13-2022 Albumin Level 3.7 G/dL Normal 3.4-4.8 [facility] ([place]) Comment on above: Performed By: #### A UNRULY, VALPR, CBC, ADIFF, BMP, GFR, AMM #### [address] [address] Albumin/Globulin [Mass ratio] 0.8 {ratio} Low 1.1-2.5 [facility] ([place]) Comment on above: Performed By: #### A UNRULY, VALPR, CBC, ADIFF, BMP, GFR, AMM #### [address] [address] ALP [Catalytic activity/Vol] 68 U/L Normal 40-135 [facility] ([place]) Comment on above: Performed By: #### A UNRULY, VALPR, CBC, ADIFF, BMP, GFR, AMM #### [address] [address] ALT [Catalytic activity/Vol] 33 U/L Normal 14-59 [facility] ([place]) Comment on above: Performed By: #### A UNRULY, VALPR, CBC, ADIFF, BMP, GFR, AMM #### [address] [address] AST [Catalytic activity/Vol] 32 U/L Normal 10-40 [facility] ([place]) Comment on above: Performed By: #### A UNRULY, VALPR, CBC, ADIFF, BMP, GFR, AMM #### [address] [address] Bili Total 0.3 mg/dL Normal 0.2-1.0 [facility] ([place]) Comment on above: Result Comment: Use of this assay is not recommended for patients undergoing treatment with eltrombopag due to the potential for falsely elevated results. Performed By: #### A UNRULY, VALPR, CBC, ADIFF, BMP, GFR, AMM #### [address] [address] BUN/Creatinine Ratio 22 ratio Normal 7-27 [facility] ([place]) Comment on above: Performed By: #### A UNRULY, VALPR, CBC, ADIFF, BMP, GFR, AMM #### [address] [address] Calcium [Mass/Vol] 10.4 mg/dL High 8.4-10.2 [facility] ([place]) Comment on above: Performed By: #### A UNRULY, VALPR, CBC, ADIFF, BMP, GFR, AMM #### [address] [address] Chloride [Moles/Vol] 98 mmol/L Normal 98-107 [facility] ([place]) Comment on above: Performed By: #### A UNRULY, VALPR, CBC, ADIFF, BMP, GFR, AMM #### [address] [address] CO2 [Moles/Vol] 28 mmol/L Normal 23-31 [facility] ([place]) Comment on above: Performed By: #### A UNRULY, VALPR, CBC, ADIFF, BMP, GFR, AMM #### [address] [address] Creatinine [Mass/Vol] 1.15 mg/dL High 0.55-1.02 [facility] ([place]) Comment on above: Performed By: #### A UNRULY, VALPR, CBC, ADIFF, BMP, GFR, AMM #### [address] [address] Electrolyte Balance 10.0 mEq/L Normal 4.0-15.0 [facility] ([place]) Comment on above: Performed By: #### A UNRULY, VALPR, CBC, ADIFF, BMP, GFR, AMM #### [address] [address] Globulin 4.8 G/dL Normal [facility] ([place]) Comment on above: Performed By: #### A UNRULY, VALPR, CBC, ADIFF, BMP, GFR, AMM #### [address] [address] Glucose [Mass/Vol] 88 mg/dL Normal 80-115 [facility] ([place]) Comment on above: Performed By: #### A UNRULY, VALPR, CBC, ADIFF, BMP, GFR, AMM #### [address] [address] Potassium [Moles/Vol] 4.7 mmol/L Normal 3.5-5.1 [facility] ([place]) Comment on above: Performed By: #### A UNRULY, VALPR, CBC, ADIFF, BMP, GFR, AMM #### [address] [address] Sodium [Moles/Vol] 136 mmol/L Normal 136-145 [facility] ([place]) Comment on above: Performed By: #### A UNRULY, VALPR, CBC, ADIFF, BMP, GFR, AMM #### [address] [address] Total Protein 8.5 G/dL High 6.4-8.2 [facility] ([place]) Comment on above: Performed By: #### A UNRULY, VALPR, CBC, ADIFF, BMP, GFR, AMM #### [address] [address] Urea nitrogen [Mass/Vol] 25 mg/dL High 7-18 [facility] ([place]) Comment on above: Performed By: #### A UNRULY, VALPR, CBC, ADIFF, BMP, GFR, AMM #### [address] [address] LABORATORYOrdered By: SYSTEM SYSTEM on 12-13-2022 25-hydroxyvitamin [...] developed and its performance characteristics determined by [facility] [place] ([facility]). It has not been cleared or approved by the FDA. -[facility] is regulated under CLIA as qualified to perform high-complexity testing. This test is used for clinical purposes. It should not be regarded as investigational or for research. Performed By: [facility] [address] [place] [address] Retirement Sales Consultant: Rigoberto Burgos III, M.D. CLIA#: [id number] LIPIDon 12-13-2022 Cholesterol [Mass/Vol] 176 mg/dL Normal 0-200 [facility] ([place]) Comment on above: Result Comment: Chol esterol Reference Interval: Less than 200 Desirable 200-239 Borderline high risk 240 and above High risk Performed By: #### A UNRULY, VALPR, CBC, ADIFF, BMP, GFR, AMM #### [facility] [id number] [place] [id number] Cholesterol in HDL [Mass/Vol] 45 mg/dL Normal 40-60 [facility] ([place]) Comment on above: Performed By: #### A UNRULY, VALPR, CBC, ADIFF, BMP, GFR, AMM #### [place] [address] Cholesterol in LDL [Mass/Vol] 83 mg/dL Normal 0-130 [facility] ([place]) Comment on above: Performed By: #### A UNRULY, VALPR, CBC, ADIFF, BMP, GFR, AMM #### [place] [address] Triglyceride [Mass/Vol] 239 mg/dL High 0-150 [facility] ([place]) Comment on above: Result Comment: Trig lyceride Reference Interval: Less than 150 Normal 150-199 Borderline high risk 200-499 High risk 500 or higher Very high risk Performed By: #### A UNRULY, VALPR, CBC, ADIFF, BMP, GFR, AMM #### [place] [address] TSHon 12-13-2022 TSH Qn 3.02 m[IU]/L Normal 0.36-3.74 [facility] ([place]) Comment on above: Performed By: #### T SH, LIPID, GFR, ANEU, CMP, PTH, A1C, CBC, VIDH, ADIFF ####[place] [address]#### VALPR, LEVET, RENIND ####[place] [id number] [place], [place] [address] VALPRon 12-13-2022 LDose Valproic Acid: Unknown Normal [facility] ([place]) Comment on above: Performed By: #### A UNRULY, VALPR, CBC, ADIFF, BMP, GFR, AMM #### [place] [address] Valproic Acid Lvl 125 mcg/mL High 50-100 [facility] ([place]) Comment on above: Performed By: #### A UNRULY, VALPR, CBC, ADIFF, BMP, GFR, AMM #### [place] [address] VIDHon 12-13-2022 Vit. D 25-Hydroxy 81.8 ng/mL Normal [facility] ([place]) Comment on above: Result Comment: Inte rpretive Values Based on Total 25(OH) Vitamin D: Deficient <20 ng/mL Insufficient 20 - <30 ng/mL Sufficient 30-100 ng/mL Performed By: #### A UNRULY, VALPR, CBC, ADIFF, BMP, GFR, AMM #### [place] [address] MRI KIDNEYon 10-01-2022 MRI KIDNEY ORIGINAL EXAMINATION: [...] 10/01/2022 4:43:31 PM Ordering Provider: FISH JORDAN Normal [facility] ([place]) LABORATORYOrdered By: Jasmyne Foster on 07-07-2022 LDose [...] 150 mg/dL AO ADM SS LABORATORYOrdered By: CHENTE_[employer]SYSTEM on 06-07-2022 Levetiracetam Lvl 104.4 UG/ML Invalid [...] developed and its performance characteristics determined by [facility]'s Oliverio Camelia [facility] Pathology and Laboratory Medicine [place] ([facility]). It has not been cleared or approved by the FDA. [facility] is regulated under CLIA as qualified to perform high-complexity testing. This test is used for clinical purposes. It should not be regarded as investigational or for research. Performed By: [place] [id number] [place] [address] Retirement Sales Consultant: Rigoberto Burgos III, M.D. [facility]#: [id number] LABORATORYOrdered By: [employer] on 05-08-2022 Cobalamin (Vitamin B12) [Mass/Vol] [...] Routine cultures are held for 5 days. [facility] LABORATORYOrdered By: Cristiane Hunter on [...] Date Time Vital Sign Value Performing Clinician Michellei ryne 08-13-2023 10:40-0400 Heart rate 88 /min JAMEY LEONARD MD [facility] 08-13-2023 10:40-0400 Respiratory rate 18 /min JAMEY LEONARD MD [facility] 08-13-2023 06:35-0400 Body temperature 98.24 [degF] JAMEY LEONARD MD [facility] 08-13-2023 06:35-0400 Diastolic Blood Pressure Non-Invasive 76 mm[Hg] JAMEY LEONARD MD [facility] 08-13-2023 06:35-0400 Heart rate 80 /min JAMEY LEONARD MD [facility] 08-13-2023 06:35-0400 Respiratory rate 16 /min JAMEY LEONARD MD [facility] 08-13-2023 06:35-0400 Systolic Blood Pressure Non-Invasive 129 mm[Hg] JAMEY LEONARD MD [facility] 08-13-2023 06:34-0400 Heart rate 82 /min JAMEY LEONARD MD [address] [place] [address] 08-13-2023 06:34-0400 Respiratory rate 17 /min JAMEY LEONARD MD [address] [place] [address] 08-12-2023 22:46-0400 Body temperature 97.7 [degF] JAMEY LEONARD MD [address] [place] [address] 08-12-2023 22:46-0400 Diastolic Blood Pressure Non-Invasive 66 mm[Hg] JAMEY LEONARD MD [address] [place] [address] 08-12-2023 22:46-0400 Reason For Taking VItal Signs JAMEY LEONARD MD [address] [place] [address] 08-12-2023 22:46-0400 Systolic Blood Pressure Non-Invasive 113 mm[Hg] JAMEY LEONARD MD [address] [place] [address] 08-12-2023 16:18-0400 Blood Pressure Cuff Size JAMEY LEONARD MD [address] [place] [address] 08-12-2023 16:18-0400 Blood Pressure Location JAMEY LEONARD MD [address] [place] [address] 08-12-2023 16:18-0400 Blood Pressure Method JAMEY LEONARD MD [address] [place] [address] 08-12-2023 16:18-0400 Body temperature 98.06 [degF] JAMEY LEONARD MD [address] [place] [address] 08-12-2023 16:18-0400 Diastolic Blood Pressure Non-Invasive 82 mm[Hg] JAMEY LEONARD MD [address] [place] [address] 08-12-2023 16:18-0400 Reason For Taking VItal Signs JAMEY LEONARD MD [address] [place] [address] 08-12-2023 16:18-0400 Systolic Blood Pressure Non-Invasive 132 mm[Hg] JAMEY LEONARD MD [address] [place] [address] 08-12-2023 08:41-0400 Reason For Taking VItal Signs JAMEY LEONARD MD [address] [place] [address] 08-12-2023 06:46-0400 Blood Pressure Cuff Size JAMEY LEONARD MD [address] [place] [address] 08-12-2023 06:46-0400 Blood Pressure Location JAMEY LEONARD MD [address] [place] [address] 08-12-2023 06:46-0400 Blood Pressure Method JAMEY LEONARD MD [address] [place] [address] 08-11-2023 14:55-0400 Blood Pressure Cuff Size JAMEY LEONARD MD [address] [place] [address] 08-11-2023 14:55-0400 Blood Pressure Location JAMEY LEONARD MD [address] [place] [address] 08-11-2023 14:55-0400 Blood Pressure Method JAMEY LEONARD MD [address] [place] [address] 08-10-2023 11:04-0400 Heart rate 84 /min JAMEY LEONARD MD [address] [place] [address] 08-10-2023 07:16-0400 Heart rate 89 /min JAMEY LEONARD MD [address] [place] [address] 08-10-2023 03:44-0400 Heart rate 79 /min JAMEY LEONARD MD [address] [place] [address] 08-09-2023 10:50-0400 Mean blood pressure 91 mm[Hg] JAMEY LEONARD MD [address] [place] [address] 08-09-2023 10:35-0400 Mean blood pressure 93 mm[Hg] JAMEY LEONARD MD [address] [place] [address] 08-09-2023 10:20-0400 Body temperature 96.8 [degF] JAMEY LEONARD MD [address] [place] [address] 08-09-2023 10:20-0400 Mean blood pressure 91 mm[Hg] JAMEY LEONARD MD [address] [place] [address] 08-08-2023 08:05-0400 Heart rate 84 /min JAMEY LEONARD MD [address] 08-08-2023 04:28-0400 Body temperature 98.06 [degF] JAMEY LEONARD MD [address] 08-08-2023 04:28-0400 Heart rate 72 /min JAMEY LEONARD MD [address] [place] [address] 08-07-2023 15:21-0400 Body temperature 99.14 [degF] JAMEY LEONARD MD [address] [place] [address] 08-07-2023 10:00-0400 Body temperature 98.78 [degF] JAMEY LEONARD MD [address] [place] [address] 08-05-2023 13:40-0400 Body height 160 cm JAMEY LEONARD MD [address] [place] [address] 08-05-2023 13:40-0400 Body weight 76.6 kg JAMEY LEONARD MD [address] [place] [address] 08-05-2023 13:40-0400 Body weight 29.92 kg/m2 JAMEY LEONARD MD [address] [place] [address] 08-04-2023 20:54-0400 Diastolic Blood Pressure Non-Invasive 65 mm[Hg] AIDEN MARQUEZ DO [facility] 08-04-2023 20:54-0400 Heart rate 96 /min AIDEN FROMMELT DO [facility] 08-04-2023 20:54-0400 Respiratory rate 20 /min AIDEN FROMMELT DO [facility] 08-04-2023 20:54-0400 Systolic Blood Pressure Non-Invasive 121 mm[Hg] AIDEN FROMMELT DO [facility] 08-04-2023 19:10-0400 Diastolic Blood Pressure Non-Invasive 56 mm[Hg] AIDEN FROMMELT DO [facility] 08-04-2023 19:10-0400 Heart rate 101 /min AIDEN SOUZAMELT DO [facility] 08-04-2023 19:10-0400 Respiratory rate 20 /min AIDEN SOUZAMELT DO [facility] 08-04-2023 19:10-0400 Systolic Blood Pressure Non-Invasive 124 mm[Hg] AIDEN SOUZAMELT DO [facility] 08-04-2023 18:03-0400 Diastolic Blood Pressure Non-Invasive 61 mm[Hg] AIDEN FROMMELT DO [facility] 08-04-2023 18:03-0400 Heart rate 108 /min AIDEN FROMMELT DO [facility] 08-04-2023 18:03-0400 Systolic Blood Pressure Non-Invasive 124 mm[Hg] AIDEN FROMMELT DO [facility] 08-04-2023 15:57-0400 Mean blood pressure 78 mm[Hg] AIDEN FROMMELT DO [facility] 08-04-2023 15:57-0400 Reason For Taking VItal Signs AIDEN FROMMELT DO [facility] 08-04-2023 15:57-0400 Respiratory rate 20 /min AIDEN [employer] [facility] 08-04-2023 13:17-0400 Body height 160 cm AIDEN [employer] [facility] 08-04-2023 13:17-0400 Body temperature 97.88 [degF] AIDEN [employer] [facility] 08-04-2023 13:17-0400 Body weight 76 kg AIDEN SOUZAST. [facility] 08-02-2023 11:51-0400 Blood Pressure Location FISH JORDAN REAL ESTATE APPRAISER - WATER POLLUTION CONTROL INSPECTOR [facility] 08-02-2023 11:51-0400 Blood Pressure Method FISH JORDAN REAL ESTATE APPRAISER - WATER POLLUTION CONTROL INSPECTOR [facility] 08-02-2023 11:51-0400 Body temperature 98.96 [degF] FISH JORDAN REAL ESTATE APPRAISER - WATER POLLUTION CONTROL INSPECTOR [facility] 08-02-2023 11:51-0400 Diastolic Blood Pressure Non-Invasive 85 mm[Hg] FISH JORDAN REAL ESTATE APPRAISER - WATER POLLUTION CONTROL INSPECTOR [facility] 08-02-2023 11:51-0400 Heart rate 90 /min FISH JORDAN REAL ESTATE APPRAISER - WATER POLLUTION CONTROL INSPECTOR [facility] 08-02-2023 11:51-0400 Respiratory rate 18 /min FISH JORDAN REAL ESTATE APPRAISER - WATER POLLUTION CONTROL INSPECTOR [facility] 08-02-2023 11:51-0400 Systolic Blood Pressure Non-Invasive 112 mm[Hg] FISH JORDAN REAL ESTATE APPRAISER - WATER POLLUTION CONTROL INSPECTOR [facility] 02-24-2022 13:35-0500 Diastolic Blood Pressure Non-Invasive [address] KYLE TELLO MD [facility] 02-24-2022 13:35-0500 Heart rate 76 /min DR KYLE TELLO MD [facility] 02-24-2022 13:35-0500 Respiratory rate 16 /min DR KYLE TELLO MD [facility] 02-24-2022 13:35-0500 Systolic Blood Pressure Non-Invasive [address] KYLE TELLO MD [facility] 02-24-2022 11:14-0500 Diastolic Blood Pressure Non-Invasive [address] KYLE TELLO MD [facility] 02-24-2022 11:14-0500 Heart rate 78 /min DR KYLE TELLO MD [facility] 02-24-2022 11:14-0500 Respiratory rate 16 /min DR KYLE TELLO MD [facility] 02-24-2022 11:14-0500 Systolic Blood Pressure Non-Invasive [address] KYLE TELLO MD [facility] 02-24-2022 09:36-0500 Body temperature 98.06 [degF] DR KYLE TELLO MD [facility] 02-24-2022 09:36-0500 Diastolic Blood Pressure Non-Invasive [address] KYLE TELLO MD [facility] 02-24-2022 09:36-0500 Heart rate 87 /min DR KYLE TELLO MD [facility] 02-24-2022 09:36-0500 Respiratory rate 18 /min DR KYLE TELLO MD [facility] 02-24-2022 09:36-0500 Systolic Blood Pressure Non-Invasive [address] KYLE TELLO MD [facility] 03-18-2021 20:06-0500 Diastolic blood pressure 72 mm[Hg] DR BUCK BURDICK MD [facility] 03-18-2021 20:06-0500 Heart rate 93 /min DR BUCK BURDICK MD [facility] 03-18-2021 20:06-0500 Respiratory rate 20 /min DR BUCK BURDICK MD [facility] 03-18-2021 20:06-0500 Systolic blood pressure 120 mm[Hg] DR BUCK BURDICK MD [facility] 03-18-2021 17:35-0500 Diastolic blood pressure 82 mm[Hg] DR BUCK BURDICK MD [facility] 03-18-2021 17:35-0500 Heart rate 94 /min DR BUCK BURDICK MD [facility] 03-18-2021 17:35-0500 Reason For Taking VItal Signs DR BUCK BURDICK MD [facility] 03-18-2021 17:35-0500 Respiratory rate 20 /min DR BUCK BURDICK MD [facility] 03-18-2021 17:35-0500 Systolic blood pressure 122 mm[Hg] DR BUCK BURDICK MD [facility] 03-18-2021 15:55-0500 Diastolic blood pressure 76 mm[Hg] DR BUCK BURDICK MD [facility] 03-18-2021 15:55-0500 Heart rate 98 /min DR BUCK BURDICK MD [facility] 03-18-2021 15:55-0500 Respiratory rate 18 /min DR BUCK BURDICK MD [facility] 03-18-2021 15:55-0500 Systolic blood pressure 144 mm[Hg] DR BUCK BURDICK MD [facility] 03-18-2021 15:09-0500 Body temperature 98.24 [degF] DR BUCK BURDICK MD [facility] 03-18-2021 15:09-0500 Heart rate 115 /min DR BUCK BURDICK MD [facility] Encounters Encounter Date Encounter Type Care Provider Facility Start: 11-18-2024 ambulatory Aiden Wolfe Facili ty:[facility] Start: 10-13-2024 ambulatory Aiden Aiden Facili ty:[facility] Start: 10-09-2024 ambulatory Aiden Moralesigan Facili ty:[facility] Start: 10-01-2024 ambulatory Elisa STANFORD Facil ity:[facility] Start: 08-18-2024 End: 08-18-2024 ambulatory Elisa Maldonado MD [facility] Work Phone: Start: 08-18-2024 End: 08-18-2024 [facility] Start: 08-18-2024 End: 08-18-2024 ambulatory Elisa STANFORD Facility:[facility] Start: 07-20-2024 End: 07-20-[address] Aiden Wolfe DO Work Phone: [facility] Work Phone: Start: 07-20-2024 End: 07-20-2024 Departed [facility] Start: 07-20-2024 End: 07-20-2024 ambulatory Elisa STANFORD Facility:[facility] Start: 06-22-2024 End: 06-22-[address] Aiden Wolfe DO Work Phone: [facility] Work Phone: Start: 06-22-2024 End: 06-22-2024 Departed Ref[facility] Start: 06-22-2024 End: 06-22-2024 ambulatory Elisa STANFORD Facility:[facility] Start: 05-21-2024 ambulatory Elisa STANFORD Facil ity:[facility] Start: 05-21-2024 Registered Referred Elisa Dhillon [facility] Start: 04-20-2024 ambulatory Elisa STANFORD Facil ity:[facility] Start: 04-20-2024 Registered Referred Elisa Dhillon [facility] Start: 03-05-2024 End: 03-05-2024 ambulatory Elisa STANFORD Facility:[facility] Start: 02-19-2024 End: 02-19-2024 ambulatory Elisa STANFORD Facility:[facility] Start: 02-05-2024 ambulatory FISH JORDAN Facili ty:[facility] Start: 01-20-2024 ambulatory Aiden Wolfe Facili ty:[facility] Start: 01-02-2024 ambulatory Aiden Wolfe Facili ty:[facility] Start: 12-20-2023 ambulatory Aiden Wolfe Facili ty:[facility] Start: 09-16-2023 End: 09-16-2023 ambulatory FISH POTTERPKINS REAL ESTATE APPRAISER - WATER POLLUTION CONTROL INSPECTOR Facility:B Start: 09-16-2023 End: 09-16-2023 Patient encounter procedure MARJ DEAN MD [facility] Start: 08-04-2023 End: 08-13-2023 Evaluation and management of inpatient JAMEY LEONARD MD [facility] Start: 08-04-2023 End: 08-04-2023 Emergency department patient visit AIDEN DEVINAnshu VAZQUEZ [facility] Start: 08-02-2023 End: 08-02-2023 SAME DAY STAY FISH POTTERPKINS REAL ESTATE APPRAISER - WATER POLLUTION CONTROL INSPECTOR [facility] Start: 08-02-2023 End: 08-02-2023 ambulatory FISH James NIKKI REAL ESTATE APPRAISER - WATER POLLUTION CONTROL INSPECTOR Facility:B Start: 08-02-2023 End: 08-02-2023 Patient encounter procedure FISH POTTERPKINS REAL ESTATE APPRAISER - WATER POLLUTION CONTROL INSPECTOR [facility] Start: 06-20-2023 End: 06-24-2023 ambulatory FISH James NIKKI REAL ESTATE APPRAISER - WATER POLLUTION CONTROL INSPECTOR Facility:B Start: 06-20-2023 End: 06-24-2023 Outreach Lab FISH James NIKKI REAL ESTATE APPRAISER - WATER POLLUTION CONTROL INSPECTOR [facility] Start: 06-13-2023 End: 06-17-2023 ambulatory FISH POTTERPKINS REAL ESTATE APPRAISER - WATER POLLUTION CONTROL INSPECTOR Facility:B Start: 06-13-2023 End: 06-17-2023 Outreach Lab FISH James NIKKI REAL ESTATE APPRAISER - WATER POLLUTION CONTROL INSPECTOR [facility] Start: 01-07-2023 End: 01-07-2023 ambulatory FISH POTTERPKINS REAL ESTATE APPRAISER - WATER POLLUTION CONTROL INSPECTOR Facility:B Start: 12-24-2022 End: 12-24-2022 ambulatory FISH JORDAN REAL ESTATE APPRAISER - WATER POLLUTION CONTROL INSPECTOR Facility:B Start: 12-24-2022 End: 12-24-[address] ELISA GAMBLE MD [facility] Start: 12-13-2022 End: 12-17-2022 ambulatory FISH JORDAN REAL ESTATE APPRAISER - WATER POLLUTION CONTROL INSPECTOR Facility:B Start: 12-13-2022 End: 12-17-2022 Outreach Lab FISH JORDAN REAL ESTATE APPRAISER - WATER POLLUTION CONTROL INSPECTOR [facility] Start: 09-28-2022 End: 09-28-2022 ambulatory FISH POTTERPKINS REAL ESTATE APPRAISER - WATER POLLUTION CONTROL INSPECTOR Facility:B Start: 09-28-2022 End: 09-28-2022 Patient encounter procedure FISH JORDAN REAL ESTATE APPRAISER - WATER POLLUTION CONTROL INSPECTOR [facility] Start: 07-07-2022 End: 07-07-2022 Patient encounter procedure NANCIE SHIELDS DO [facility] Start: 06-07-2022 End: 06-11-2022 Outreach Lab FISH JORDAN REAL ESTATE APPRAISER - WATER POLLUTION CONTROL INSPECTOR [facility] Start: 05-08-2022 End: 05-08-2022 Patient encounter procedure MEKA KWON [facility] Start: 04-11-2022 End: 04-11-2022 Patient encounter procedure FISH JORDAN REAL ESTATE APPRAISER - WATER POLLUTION CONTROL INSPECTOR [facility] Start: 03-21-2022 End: 03-21-2022 Patient encounter procedure FISH JORDAN REAL ESTATE APPRAISER - WATER POLLUTION CONTROL INSPECTOR [facility] Start: 03-01-2022 End: 03-01-2022 Patient encounter procedure FISH JORDAN REAL ESTATE APPRAISER - WATER POLLUTION CONTROL INSPECTOR [facility] Start: 02-24-2022 End: 02-24-2022 Emergency department patient visit DR KYLE TELLO MD [facility] Start: 02-12-2022 End: 02-12-2022 Patient encounter procedure NANCIE SHIELDS DO [facility] Start: 12-12-2021 End: 12-12-[address] ELISA GAMBLE MD [facility] Start: 03-18-2021 End: 03-18-2021 Emergency department patient visit DR BUCK BURDICK MD [facility] Procedures Date Procedure Procedure Detail [...] Toxicity >100 ng/mL (>250 nmol/L) Start: 12-24-2022 Elizabeth JORDAN REAL ESTATE APPRAISER - WATER POLLUTION CONTROL INSPECTOR Comment on above: 1. Left ventricle: T [...] mildly dilated Start: 12-12-2021 Echocardiography NANCIE VYAS Comment on above: 1. Left ventricle: T [...] Immunization Date Immunization Notes Care Provider Fa navdeep 06-22-2020 SARS-CoV-2 (COVID-19 ) mRNA-[address] ELISA GAMBLE MD [facility] 05-26-2020 SARS-CoV-2 (COVID-19 ) mRNA-[address] ELISA GAMBLE MD [facility] 02-07-2017 influenza virus vaccine, unspecified formulation DR ELISA AGMBLE MD [facility] 01-31-2016 influenza virus vaccine, unspecified formulation DR ELISA GAMBLE MD [facility] 01-31-2016 influenza, injectabl e, quadrivalent, preservative free Dr. Aiden Wolfe DO Work Phone: [facility] Payers Date Payer Category Payer Unknown [id number] 2023 Self-pay 2023 Unknown [id number] 2016 Medicaid [id number] 1987 Medicare [id number] 1955 Unknown [id number] 2.16.8 40.1.998902.3.579.2. 1955 Unknown [id number] 2.16.8 40.1.696235.3.579.2. 1956 Unknown [id number] 2.16.8 40.1.024663.3.579.2 1956 Unknown [id number] 2.16.8 40.1.378527.3.579.2. 1956 Unknown [id number] 2.16.8 40.1.520708.3.579.2. 1956 Unknown [id number] 2.16.8 40.1.687390.3.579.2.62 1956 Unknown [id number] 2.16.8 40.1.866273.3.579.2. 1956 Unknown [id number] 2.16.8 40.1.455189.3.579.2.62 1956 Unknown [id number] 2.16.8 40.1.472762.3.579.2 1956 Unknown [id number] 2.16.8 40.1.847656.3.579.2.627 1956 Unknown [id number] 2.16.8 40.1.960706.3.579.2.62 1956 Unknown [id number] 2.16.8 40.1.814204.3.579.2.62 1956 Unknown [id number] 2.16.8 40.1.710275.3.579.2.627 1956 Unknown [id number] 2.16.8 40.1.416595.3.579.2.627 Unknown [id number] 2.16.8 40.1.024828.3.579.2.462 Unknown [id number] 2.16.8 40.1.398310.3.579.2.462 Unknown [id number] 2.16.8 40.1.475565.3.579.2.462 Unknown [id number] 2.16.8 40.1.160326.3.579.2.462 Unknown [id number] 2.16.8 40.1.286310.3.579.2.462 Unknown [id number] 2.16.8 40.1.503872.3.579.2.462 Unknown [id number] 2.16.8 40.1.597129.3.579.2.462 Unknown [id number] 2.16.8 40.1.268908.3.579.2.462 Unknown [id number] 2.16.8 40.1.401711.3.579.2.462 Unknown [id number] 2.16.8 40.1.680781.3.579.2.462 Unknown [id number] 2.16.8 40.1.482713.3.579.2.462 Unknown [id number] 2.16.8 40.1.392772.3.579.2.462 Unknown [id number] 2.16.8 40.1.038390.3.579.2.462 Unknown [id number] 2.16.8 40.1.220394.3.579.2.462 Social History Date Type Detail Facility Start: 01-31-2016 End: 05-12-2019 Never smoked tobacco (finding) [facility] Start: 1955 Sex Assigned At Female A [facility] Start: 01-31-2016 None None [facility] Start: 01-31-2016 With Family With Family [facility] Start: 07-15-2024 End: 07-20-2024 Sex Female (finding) [facility] Functional Status Date Assessment Result Facility 08-13-2023 Functional Status Repositions self [facility] 08-13-2023 Functional Status [facility] 08-13-2023 Functional Status [facility] 08-13-2023 Functional Status Identified as high risk, Bed alert on, Non-Slip footwear, Room check performed [facility] 08-13-2023 Functional Status [facility] 08-12-2023 Functional Status [facility] 08-12-2023 Functional Status Done [facility] 08-12-2023 Functional Status Supervised [facility] 08-12-2023 Functional Status [facility] 08-12-2023 Functional Status [facility] 08-12-2023 Functional Status bilateral knee high rem jaida/off [facility] 08-11-2023 Functional Status [facility] 08-11-2023 Functional Status [facility] 08-11-2023 Functional Status [facility] 08-11-2023 Functional Status [facility] 08-11-2023 Functional Status [facility] 08-10-2023 Functional Status [facility] ed [facility] 08-10-2023 Functional Status [facility] 08-10-2023 Functional Status Lunch Percent [address] [facility] 08-10-2023 Functional Status [facility] 08-10-2023 Functional Status [facility] 08-09-2023 Functional Status [facility] 08-09-2023 Functional Status [facility] 08-09-2023 Functional Status unable to acqu miri home MOREIRA/baseline d/t extensive expressive aphasia, attempted to call POA/sister, unable to get a hold of, social work does not have any further information [facility] 08-09-2023 Functional Status Patient Identi fied Identification band [facility] 08-09-2023 Functional Status Maintained [facility] 08-09-2023 Functional Status [facility] 08-08-2023 Functional Status [facility] 08-08-2023 Functional Status [facility] 08-08-2023 Functional Status [facility] 08-08-2023 Functional Status Special Call D evice Unable to use call device [facility] [facility] 08-08-2023 Functional Status Assistive Equi pment elevated on pillows [facility] 08-07-2023 Functional Status [facility] 08-07-2023 Functional Status [facility] 08-07-2023 Functional Status [facility] 08-06-2023 Functional Status [facility] 08-05-2023 Functional Status [facility] 08-05-2023 Functional Status Sensory Deficits None A [facility] 08-05-2023 Functional Status No Living Envi ronment Information Available [facility] 08-05-2023 Functional Status [facility] 08-04-2023 Functional Status Room check performed [facility] 02-24-2022 Functional Status Standard Safet y ID band on, Call device within reach, Bed in low position, Wheels locked, Upper/Half-Length side-rails up, Phone within reach, personal items within reach, Assistive devices within reach, Toileting device within reach, Bedside Cart Locked, Visitor at bedside, Safety level maintained [facility] Mental Status Date Assessment Result Facility 08-13-2023 Mental Status Not oriented to place, Not oriented to time, Not oriented to situation [facility] 08-12-[address] [facility] 08-04-2023 Mental Status Orientation Other: [facility] 02-24-2022 Mental Status Orientation Disoriented x 4 1 [facility] Clinical Notes 03-18-2021 to 08-13-2023 Note Date & Type Note Facility 08-13-2023 Discharge summary Date of Service 08/13/23 Discharge Diagnosis 1. Breakthrough seizure 2. Acute encephalopathy 3. Hyponatremia 4. Developmental delay 5. Asthma without exacerbation 6. Other history of HTN, HLD, obesity Additional Orders: Ordered: Discharge,08/13/23 10:00:00 EDT, [facility] 67-year-old female with past medical history of epilepsy, developmental delay, hypertension, hyperlipidemia and obesity. Patient presented to [facility] as a transfer from [facility] emergency department on 08/04/2023 with [...] was actually stable for discharge to [facility] care of mariama Patterson on 08/12/2023. The patient's POA Jorge called in requesting a change of facility. The patient stayed overnight in the hospital due to facility change. No acute events noted overnight. Vital signs are hemodynamically stable. Mentation improving each day. Patient was alert to self, location and family. Patient is stable for discharge to [facility] SNF. Sister updated on plan. Case d/w [...] 08/04/23 Discharge Date 08/13/23 Medications New Prescription [id number] Milligram by mouth every six (6) hours [...] Refills: 1. [facility] Up [facility] When Within 1-2 days Why: follow up wtin 2 weeks Where: [address] [place] [address]- Business (1) Follow Up with FISH JORDAN APRN - WATER POLLUTION CONTROL INSPECTOR When Within 1-2 days Why: Please call the office to schedule a follow-up appointment Where: [address] [facility] [place] [address]- Follow Up Appointments Transfer of Care OT - Ordered -- Reason for therapy: weakness, 08/12/23 10:51:00 EDT Transfer of Care PT - Ordered -- Reason for therapy: weakness, 08/12/23 10:51:00 EDT Follow Up Labs/Studies Discharge Labs Transfer of Care Labwork - Ordered -- Valporic Acid level, monitor while on Valporic acid, follow-up within: 5-7 days, Results Notify to: FISH JORDAN APRN - WATER POLLUTION CONTROL INSPECTOR, 08/12/23 10:51:00 EDT Discharge Studies No Follow-up Studies Discharge Diet Transfer of Care Diet - Ordered -- Type of Diet: Soft and Bite Toqko-ZTTLP-6, Thin (Thinned)-IDDSI-0, 08/12/23 10:51:00 EDT Discharge Activity Transfer of Care Activity - Ordered -- As instructed by therapy, 08/12/23 10:51:00 EDT Condition on Discharge Stable Discharge Disposition SNF Information Provided To Patient Sister Time Spent 32 minutes Digitally Signed by ADEBAYO MARTINEZ on 08/13/2023 10:03 AM Digitally Signed by LENNY PARK DO on 08/13/2023 10:[address] [facility] 08-13-2023 Note Discharge Instructions Thank you for allowing [facility] to assist you with your healthcare needs. The following is important discharge information regarding your hospital visit. Your Care Team FISH JORDAN APRN, CNP Your Diagnosis Developmentally disabled HTN (hypertension) Hyperlipidemia LDL goal <100 Seasonal asthma Seizure What to do next Scheduled Follow-Up Appointments Appointment Type When With Where Contact InformationPC Nurse Lab 12/12/2023 08:00 AM EDT [facility] OV 12/23/2023 07:00 AM EDT FISH JORDAN APRN, CNP [facility] Follow Up Appointments Follow Up with [facility] When Within 1-2 days Follow [facility] with [facility] When Within 1-2 days Why: follow up wtihin 2 weeks Where: [address] [place] [address]- [facility] (1) Follow Up with FISH JORDAN APRN, CNP When Within 1-2 days Why: Please call the office to schedule a follow-up appointment Where: [address] [place] [address]- The Following Activity and Diet Have Been Ordered for You Transfer of Care Activity - Ordered -- As instructed by therapy, 08/12/23 10:51:00 EDT Transfer of Care Diet - Ordered -- Type of Diet: Soft and Bite Hxfie-WPXSP-1, Thin (Thinned)-IDDSI-0, 08/12/23 10:51:00 EDT The Following Equipment Has Been Ordered for You No qualifying data available. The Following Treatments Have Been Ordered for You Discharge Labs Transfer of Care Labwork - Ordered -- Valporic Acid level, monitor while on Valporic acid, follow-up within: 5-7 days, Results Notify to: FISH JORDAN REAL ESTATE APPRAISER - WATER POLLUTION CONTROL INSPECTOR, 08/12/23 10:51:00 EDT Discharge Radiology No qualifying [...] 5-7 days, Results Notify to: FISH JORDAN REAL ESTATE APPRAISER - WATER POLLUTION CONTROL INSPECTOR, 08/12/23 10:51:00 EDT Transfer of Care Orders [...] Follow these instructions at home: Medicines Take aixr-sja-vkvbcil and prescription medicines only as told by your health care provider. Avoid any substances that may prevent your medicine from working properly, such as alcohol. Activity Do not drive, swim, or do any other activities that would be dangerous if you had another seizure. Wait until your health care provider says it is safe to do them. If you live in the [place] check with your local DMV (department of Zipcar) to find out about local driving laws. [...] medicines are used to treat seizures. Take iueu-vyj-lxyxrjr and prescription medicines only as told by your health care provider. This information is not intended to replace advice given to you by your health care provider. Make sure you discuss any questions you have with your health care provider. Document Released: 03/29/2001 Document Revised: 06/19/2019 Document Reviewed: 06/19/2019 [employer]ee Patient Education 2020 [employer] Additional Information VACCINATE! IT SAVES LIVES! Members of the community who have not yet received the COVID-19 vaccine and would like to receive it can visit one of [facility] vaccine clinics. There are many vaccine clinic locations within the [facility]. For locations and available times, please visit [email or web address].coronavirus.[place].gov/. It is important to note that some COVID mobile vaccine clinics are held outdoors and may be canceled in rainy or stormy conditions. To learn more about pediatric vaccinations (ages 5-11), we invite you to visit the [facility] webpage. https://www.[facility].org/pag es/4787-Wlitf-Nbmsovjfwii-Frequent fi-Rwdjs-Oucsexiay.html To learn more about the COVID-19 vaccine, we invite you to visit the CDC website for a list of frequently asked questions.https://www.cdc.gov/fabiola navirus/2019-ncov/vaccines/faq.htm l [facility] Patient Portal Access Instructions: Stay connected with your healthcare team and access your personal medical information anytime with the [facility] Patient Portal. Please follow the directions below to create your [facility] account: 1.Access the email account you provided upon registration to the hospital/physician office.2.Look for an invitation email from [facility].3.Open the email and access the invitation link: Accept Invitation to [facility].4.Fill in the required spicer to create your account. To access your account, visit [facility]. Click the blue button labeled "Access Patient [...] you will allow to register on the [facility] Patient Portal for access to your information. You can also access the [facility] Patient Portal on the [facility] amaury. Simply click on "Patient Portal" and then log into your account. If you would like to receive a full copy of your medical records, please contact the [facility] Medical Records Department by calling [phone], Saturday through Saturday between 8 a.m. and [...] Call your local pharmacy or go to http://PlayDo.IguanaBee in [place]/9M2Zw6x to find one close to you.3.Make use of household items: Use cat litter or old coffee grounds to dispose medications if other options are not available. Mix your drugs with these household products, seal them in an airtight container and throw it into the garbage. Call [facility]: [phone] to be sure your drugs can be [...] aware that I should contact my doctor. Patient/Director Of Teaching And Learning Signature: Date/Time: Relationship to Patient: ___ Witness Name/Signature: Date/Time: [facility] 08-13-2023 Discharge summary Date of Service 08/13/23 Discharge Diagnosis 1. Breakthrough seizure 2. Acute encephalopathy 3. Hyponatremia 4. Developmental delay 5. Asthma without exacerbation 6. Other history of HTN, HLD, obesity Additional Orders: Ordered: Discharge,08/13/23 10:00:00 EDT, [facility] to: [facility] 67-year-old female with past medical history of epilepsy, developmental delay, hypertension, hyperlipidemia and obesity. Patient presented to [facility] as a transfer from [facility] emergency department on 08/04/2023 with [...] of mariama Patterson on 08/12/2023. The patient's POA Jorge called in requesting a change of facility. The patient stayed overnight in the hospital due to facility change. No acute events noted overnight. Vital signs are hemodynamically stable. Mentation improving each day. Patient was alert to self, location and family. Patient is stable for discharge to [facility] SNF. Sister updated on plan. Case d/w [...] 08/04/23 Discharge Date 08/13/23 Medications New Prescription [id number] Milligram by mouth every six (6) hours [...] Follow Up [facility] When Within 1-2 days Why: follow up wtin 2 weeks Where: [address] [place] [address]- [facility] (1) Follow Up with FISH JORDAN APRN, CNP When Within 1-2 days Why: Please call the office to schedule a follow-up appointment Where: [address] [facility] [place] [address]- Follow Up Appointments Transfer of Care OT [...] -- Type of Diet: Soft and Bite Phygj-DEYWZ-1, Thin (Thinned)-IDDSI-0, 08/12/23 10:51:00 EDT Discharge Activity Transfer of Care Activity - Ordered -- As instructed by therapy, 08/12/23 10:51:00 EDT Condition on Discharge Stable Discharge Disposition SNF Information Provided To Patient Sister Time Spent 32 minutes Digitally Signed by ADEBAYO MARTINEZ on 08/13/2023 10:03 AM Digitally Signed by LENNY PARK DO on 08/13/2023 10:[address] [facility] 08-13-2023 Hospital Discharge instructions Patient Education 08/13/2023 [...] of having seen or heard something before (hipolito caballero). Odd tastes or smells. Changes in [...] Follow these instructions at home: Medicines Take kyrn-mon-eahcbni and prescription medicines only as told by [...] check with your local DMV (department of motor vehicles) to find out about local driving laws. [...] medicines are used to treat seizures. Take ilxm-hkf-tbekcxa and prescription medicines only as told by your health care provider. This information is not intended to replace advice given to you by your health care provider. Make sure you discuss any questions you have with your health care provider. Document Released: 03/29/2001 Document Revised: 06/19/2019 Document Reviewed: 06/19/2019 [employer] Patient Education 2019 [employer]. Follow Up Care 08/04/2023 16:56:26 With:[facility] Address:Unknown When:1-2 days With:[facility] Address: [address] [place] [address]- Business (1) When:1-2 days Comments:follow up wtihin 2 weeks With:FISH JORDAN APRN - WATER POLLUTION CONTROL INSPECTOR Address: [address] [place] [address]- When:1-2 days Comments:Please call the office to schedule a follow-up appointment [facility] 08-12-2023 Discharge summary Date of Service 08/12/23 [...] Care Diet,Type of Diet: Soft and Bite Lchib-NBFYW-4, Thin (Thinned)-IDDSI-0, 08/12/23 10:51:00 EDT Ordered: Transfer of Care Labwork,Valporic Acid level, monitor while on Valporic acid, follow-up within: 5-7 days, Results Notify to: FISH JORDAN APRN - WATER POLLUTION CONTROL INSPECTOR, 08/12/23 10:51:00 EDT Ordered: Transfer of Care [...] hypertension, hyperlipidemia and obesity. Patient presented to [facility] as a transfer from [facility] emergency department on 08/04/2023 with [...] the patient is stable for discharge to [facility]. for TEREZA Diggs over phone. Case d/w [...] 08/04/23 Discharge Date 08/12/23 Medications New Prescription [id number] Milligram by mouth every six (6) hours [...] Follow Up [facility] When Within 1-2 days Why: follow up wtin 2 weeks Where: [address] [place] [address]- Business (1) Follow Up with FISH JORDAN APRN, CNP When Within 1-2 days Why: Please call the office to schedule a follow-up appointment Where: [address] [facility] [place] [address]- Follow Up Appointments Transfer of Care OT - Ordered -- Reason for therapy: weakness, 08/12/23 10:51:00 EDT Transfer of Care PT - Ordered -- Reason for therapy: weakness, 08/12/23 10:51:00 EDT Follow Up Labs/Studies Discharge Labs Transfer of Care Labwork - Ordered -- Valporic Acid level, monitor while on Valporic acid, follow-up within: 5-7 days, Results Notify to: [facility] JORDAN APRN, CNP, 08/12/23 10:51:00 EDT Discharge Studies No Follow-up Studies Discharge Diet Transfer of Care Diet - Ordered -- Type of Diet: Soft and Bite Klmav-VMLBM-8, Thin (Thinned)-IDDSI-0, 08/12/23 10:51:00 EDT Discharge Activity Transfer of Care Activity - Ordered -- As instructed by therapy, 08/12/23 10:51:00 EDT Condition on Discharge Stable Discharge Disposition SNF Information Provided To Patient TOMAS Diggs Time Spent 32 minutes Digitally Signed by ADEBAYO MARTINEZ on 08/12/2023 10:57 AM Digitally Signed by MANDA BENSON MD [facility] 08-11-2023 Note . MICRO - Microbiology PROCEDURE: [...] Locations *1: This test was performed at: [address], [facility] , [facility] ([place]) 08-11-2023 Note . MICRO - Microbiology PROCEDURE: [...] Locations *1: This test was performed at: [address], [address] [place] [address] ([place] 08-11-2023 Note Date of Service 08/11/23 Chief Complaint mentation improving Subjective 67-year-old female with past medical history of epilepsy, developmental delay, hypertension, hyperlipidemia and obesity. Patient presented to [facility] as a transfer from [facility] emergency department on 08/04/2023 with [...] for dysphagia. PT/OT [facility] SNF[facility] Patient seen today. Mentation [...] DVT prophylaxis PT/OT recommending SNF, [facility] Plan discussed with patient. Jorge STARKS updated on plan of care Case discussed with Dr. Benson Digitally Signed by ADEBAYO MARTINEZ on 08/11/2023 11:[address] [facility] 08-11-2023 Respiratory therapy Hospital Progress note Respiratory [...] Joanie Garcia RT on 08/11/2023 10:[address] [facility] 08-10-2023 Note Date of Service 08/10/2023 Chief Complaint AMS Subjective 67-year-old female with past medical history of epilepsy, developmental delay, hypertension, hyperlipidemia and obesity. Patient presented to [facility] as a transfer from [facility] emergency department on 08/04/2023 with [...] for dysphagia. PT/OT [facility] SNF[facility] Patient seen today. She was alert [...] transfer to Plan discussed with patient. Jorge STARKS updated on plan of care Case discussed with Dr. Benson Digitally Signed by ADEBAYO MARTINEZ on 08/10/2023 02:[address] [facility] 08-10-2023 Neurology Progress note Date of Service [...] asked what her last name is states "isael", asked where she was said "hospital" but [...] GUTIERREZ PENA MD on 08/10/2023 02:[address] [facility] 08-09-2023 Note Date of Service 08/09/23 Chief Complaint confusion Subjective 67-year-old female with past medical history of epilepsy, developmental delay, hypertension, hyperlipidemia and obesity. Patient presented to [facility] as a transfer from [facility] emergency department on 08/04/2023 with [...] by ADEBAYO MARTINEZ on 08/09/2023 01:[address] [facility] 08-09-2023 Neurology Progress note Date of Service [...] also recommended that she be transferred to [facility] for an EEG to exclude nonconvulsive status [...] by PUJA GUSMAN on 08/09/2023 02:[address] [facility] 08-09-2023 Note Date of Service 08/09/23 Chief Complaint confusion Subjective 67-year-old female with past medical history of epilepsy, developmental delay, hypertension, hyperlipidemia and obesity. Patient presented to [facility] as a transfer from [facility] emergency department on 08/04/2023 with [...] by ADEBAYO MARTINEZ on 08/09/2023 01:[address] [facility] 08-09-2023 Anesthesiology Consult note Patient: NAI HERNANDEZ [...] CHARLY NAVA MD on 08/09/2023 11:[address] [facility] 08-09-2023 Note ORIGINAL HISTORY: TIA COMPARISON: Head [...] 08/09/2023 11:01:30 AM Ordering Provider: BRITT LOPEZ 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 / Confirmed CKD (chronic kidney disease), stage III / SNOMED CT 9100541380 / Confirmed Developmentally disabled / SNOMED CT 7295153065 / Confirmed Abnormal echocardiogram / SNOMED CT 640609435 / Confirmed Fracture of clavicle: right transverse fracture / SNOMED CT 43007296 / Confirmed Elevated glucose / SNOMED CT 4953335199 / Confirmed Hemorrhoids / SNOMED CT 277684663 / Confirmed HTN (hypertension) / SNOMED CT 1126HU8J-9197-2122-4075-AAD277IS97 20 / Confirmed Hyperlipidemia LDL goal <100 / SNOMED CT 05896953 / Confirmed Hyperlipidemia / SNOMED CT 90288777 / Confirmed IFG (impaired fasting glucose) / SNOMED CT 8548233758 / Confirmed Incontinence / SNOMED CT 56031985 / Confirmed Increased BMI (body mass index) / SNOMED CT 70857359 / Confirmed Mental disability / SNOMED CT 717578564 / Confirmed IBS (irritable bowel syndrome) / SNOMED CT 47532364 / Confirmed Leukocytosis / SNOMED CT 579328953 / Confirmed Non-smoker / SNOMED CT 07127841 / Confirmed Osteoporosis / SNOMED CT 688812586 / Confirmed Screening for cholesterol level / SNOMED CT 436557874 / Confirmed Screening mammogram, encounter for / SNOMED CT 493939629 / Confirmed Risk and functional assessment / SNOMED CT 444052365 / Confirmed Post-menopausal / SNOMED CT 061967505 / Confirmed Psoriasis / SNOMED CT 53555408 / Confirmed Renal mass, right / SNOMED CT 679919396 / Confirmed Seasonal allergies / SNOMED CT 3773435069 / Confirmed Seasonal asthma / SNOMED CT 0887313272 / Confirmed Seizure disorder / SNOMED CT 284338661 / Confirmed 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 Post-operative state (12669452): Resolved. Procedure history: Echocardiogram ([id number]) on 12/24/2022 at 67 Years. Comments: 02/06/2023 [...] atrium: The atrium is mildly dilated Echocardiogram ([id number]) on 12/12/2021 at 66 Years. Comments: 12/20/2021 8:21 EDVivien Johnosn MA (ABR-OE) 1. Left ventricle: The cavity [...] Tricuspid valve: There is trivial regurgitation. Echocardiogram ([id number]) on 12/20/2020 at 65 Years. Comments: 01/03/2021 13:38 Clarissa Nicholas MA (ABR-OE) EF 60-65% ORIF - Open reduction and internal fixation of fracture ([id number]) on 04/23/2014 at 58 Years. Comments: 12/13/2015 8:51 MIKALA CULVER right foot Oophorectomy ([id number]) in 2001 at 46 Years. Lumpectomy of breast ([id number]). Comments: 04/20/2014 13:30 MIKALA ABBOTT Left Social History Social & Psychosocial Habits Alcohol 4Risk Assessment: Denies Alcohol Use 08/02/2023 Use: Never Substance Abuse 4Risk Assessment: Denies Substance Abuse 08/02/2023 Use: Never Tobacco 4Risk Assessment: Denies Tobacco Use 08/02/2023 Tobacco Use: Never (less than 100 in l Exposure to Tobacco Smoke Lives in non-smoking home Home/Environment 08/02/2023 Primary Superintendent General: Self and sister Nutrition/Health 08/02/2023 Caffeine intake amount: none . Physical Examination General: No acute distress. Airway: Mallampati classification: III (soft palate, base of uvula visible). Head: Normocephalic. Dentition Evaluation: Intact, Own teeth, Denies loose/chipped teeth. Respiratory: Respirations are non-labored. Cardiovascular: Normal rate. Heart Sounds: Normal. Neurologic: Alert. Review / Management Documentation reviewed: Current records, Reviewed prior records. Assessment and Plan [place] [employer] Anesthesi[employer] (ASA) physical status classification: Class III. h/o seizures, CKD, anemia, htn, hld Anesthetic Preoperative Plan Anesthetic technique: General. Induction: intravenously. Maintenance airway: Oral endotracheal tube. Postoperative pain management: Per surgeon. Risks discussed: nausea, vomiting, headache, sore throat, dental injury, hypotension, allergic reaction, serious complications. Informed consent: signed by patient. Digitally Signed by JM LIU MD on 08/09/2023 11:[address] [facility] 08-08-2023 Note SINUS RHYTHM Electronic Signature: PAVEL PAYAN MD 08/09/2023 11:38:[address] [facility] 08-08-2023 Neurology Progress note Date of Service [...] continued to display preservation on exam stating "Isael". Could not answer any further questions or [...] also recommended that she be transferred to [facility] for an EEG to exclude nonconvulsive status epilepticus. Her exam today appears unchanged. No further clinical seizures have been observed by staff. Spoke with TEREZA Jorge sister, who reports at baseline she is [...] plan with bedside RN/charge -Plan discussed with TEREZA, agreeable -Avoid medications like Wellbutrin and Tramadol [...] by PUJA GUSMAN on 08/08/2023 02:[address] [facility] 08-07-2023 Note PROCEDURE TYPE: Routine inpatient EEG [...] GUTIERREZ PENA MD on 08/07/2023 03:[address] [facility] 08-06-2023 Note ORIGINAL EXAMINATION: ONE XRAY VIEW [...] 08/06/2023 10:43:49 AM Ordering Provider: BRITT LOPEZ [facility] 08-05-2023 Neurology Consult note Date of Service [...] also recommended that she be transferred to [facility] for an EEG to exclude nonconvulsive status [...] 1250 mcg (50,000 intl units) oral capsule, 92860 International_Unit= 1 cap(s), Oral, qmonth, 4 refills [...] Use, 11/19/2017 Use: Never., 10/15/2018 Home/Environment Primary Superintendent General: Self and sister., 05/12/2019 Nutrition/Health Caffeine intake [...] GUTIERREZ PENA MD on 08/05/2023 03:[address] [facility] 08-05-2023 Note PROCEDURE TYPE: Routine inpatient EEG [...] GUTIERREZ PENA MD on 08/05/2023 02:[address] [facility] 08-05-2023 Nurse Progress note mitt restraints discontinued in favor of soft limb wrist restraints during previous shift. Soft limb restraints alone used from 0700 until further documentation Digitally Signed by David Zamora RN on 08/05/2023 10:[address] [facility] 08-04-2023 History and physical note Date of Service 08/04/23 Chief Complaint Seizure History of Present Illness 67-year-old female with PMHx seizures, developmentally disabled, HTN, HLD, obesity presents to the hospital as a transfer from [place] ED for seizures. History is obtained by [...] (APTT): Unknown (08/04/23 13:37:00) APTT: 28.3 seconds (08/04/23 13:37:00) UA Specimen Type: Clean Catch (08/02/23 [...] 04/23/14 Oophorectomy: 2001 Lumpectomy of breast Medications Home Medications (14) [...] Use, 11/19/2017 Use: Never., 10/15/2018 Home/Environment Primary Superintendent General: Self and sister., 05/12/2019 Nutrition/Health Caffeine intake [...] JEANNE VAN MD on 08/05/2023 12:[address] [facility] 08-04-2023 Note Abnormal inferior Q waves Baseline wander in lead(s) II,III,aVR,aVF Compared to ECG at 02/24/2022 10:25:35 BORDERLINE ECG Electronic Signature: AIDEN MARQUEZ DO 08/04/2023 15:37:41 [facility] 08-04-2023 Note ORIGINAL EXAMINATION: CTA [...] Sign Date: 08/04/2023 3:24:32 PM Ordering Provider: [facility] 08-04-2023 Neurology Consult note Date of Service 08/04/2023 Reason for Consultation Consent: I discussed the risks and benefits of a telehealth visit and I obtained the patient s or legally authorized insurance account representative s informed verbal consent to conduct this assessment using telehealth tools with visual and audio. All of the patient s or legally authorized insurance account representative s questions regarding the telehealth interaction were addressed. I provided my name and disclosed to the patient or legally authorized insurance account representative my licensure, certification, or registration. This [...] and the consulting provider. Location of Patient: [facility] Emergency Department Physician Clay Transporter: [ enter motel front desk attendant stroke Providers name here ] Location and [...] 1250 mcg (50,000 intl units) oral capsule, 24054 International_Unit= 1 cap(s), Oral, qmonth, 4 refills [...] Use, 11/19/2017 Use: Never., 10/15/2018 Home/Environment Primary Superintendent General: Self and sister., 05/12/2019 Nutrition/Health Caffeine intake [...] DOTTY HARPER MD on 08/04/2023 03:05 PM [facility] 08-04-2023 Note ORIGINAL EXAMINATION: ONE [...] 08/04/2023 3:19:38 PM Ordering Provider: AIDEN MARQUEZ [facility] 08-04-2023 Note ORIGINAL EXAMINATION: CTA [...] Sign Date: 08/04/2023 3:33:32 PM Ordering Provider: [facility] 08-04-2023 Evaluation + Plan note Extrac daniela [...] 07:00:00 AM Scheduled Provider:FISH JORDAN APRN, CNP Location:[facility] Appointment Type:PC OV Future Scheduled Tests Laboratory* Levetiracetam (Keppra), S 12/21/23 * A1C Hemoglobin 12/21/23 * Complete Blood Count 12/21/23 * Lipid Profile 12/21/23 * Albumin/Creatinine Ratio, Random Urine 12/21/23 * Microalbumin Level Urine 12/15/22 * PTH, Intact 12/21/23 * Vitamin D Level 12/21/23 * Valproic Acid Level 12/21/23 * Complete Metabolic Panel 12/21/[address] [facility] 04-21-2024 Note ORIGINAL EXAMINATION: CT OF THE [...] Sign Date: 08/04/2023 2:10:24 PM Ordering Provider: [facility]09-11-2023 Note* Exam Date Time Procedure Performing Provider Status 12/24/22 9:19 AM Echocardiogram, Adult (AOH) Auth (Verified) [facility] 11-17-2022 Note ORIGINAL EXAMINATION: MRI [...] Date: 03/01/2022 5:17:53 PM Ordering Provider: FISH POTTERPKINS [facility]11-17-2022 Note ORIGINAL EXAMINATION: MRI OF [...] Sign Date: 03/01/2022 5:17:53 PM Ordering Provider: [facility]11-12-2022 Hospital Discharge instructions Patient Education 02/24/2022 13:35:26 [...] sleep patterns Cause muscle strain Harm digestion [id number] [employer]. [address] [place], [place] [address]. All rights reserved. This information is not [...] loosen secretions in the nose and lungs. Cdcr-den-xaetfnk cold medicines will not shorten the length of time you re sick, but they may be helpful for the following symptoms: cough, sore throat, and nasal and sinus congestion. If you take prescription medicines, ask your healthcare provider or pharmacist which mjbd-eko-pqhceis medicines are safe to use. (Note: Don't [...] it goes along with a muffled voice [phone] [employer]. [address] [place] [address], [place] [address]. All rights reserved. This information is not [...] for diarrhea, vomiting, or a high fever. 2922-1066 [employer]. [address] [place] [address], [place] [address]. All rights reserved. This information is not intended as a substitute for professional medical care. Always follow yourhealthcare professional's instructions. Follow Up Care 02/24/2022 09:23:27 With:Keep your appointment for the scheduled EEG. Address:Unknown When:2-4 days With:FISH JORDAN Address: [address] [place] [phone] Business (1) When:2-4 days Comments:Return to ED if symptoms worsen [facility] 11-12-2022 Note Discharge Instructions Thank you for allowing [facility] to assist you with your healthcare needs. [...] Return to ED if symptoms worsen Where: [address] [facility] [place] [address]- Business (1) Allergies NKA Medications Please ask [...] sleep patterns Cause muscle strain Harm digestion [phone] [employer]. [address] [place] [address], [place] [address]. All rights reserved. This information is not [...] loosen secretions in the nose and lungs. Imtm-qcx-tpunbkz cold medicines will not shorten the length of time you re sick, but they may be helpful for the following symptoms: cough, sore throat, and nasal and sinus congestion. If you take prescription medicines, ask your healthcare provider or pharmacist which vsgk-cew-onmjrbo medicines are safe to use. (Note: Don't [...] it goes along with a muffled voice [employer]. [address] [place] [address]. All rights reserved. This information is not [...] for diarrhea, vomiting, or a high fever. [employer]. [address] [place] [address]. All rights reserved. This information is not intended as a substitute for professional medical care. Always follow yourhealthcare professional's instructions. Additional Information VACCINATE! IT SAVES LIVES! Members of the community who have not yet received the Adarza BioSystemsID-19 vaccine and would like to receive it can visit one of [facility] vaccine clinics. There are many vaccine clinic locations within the [facility]. For locations and available times, please visit [email or web address]. It is important to note that some COVID mobile vaccine clinics are held outdoors and may be canceled in rainy orstormy conditions. To learn more about pediatric vaccinations (ages 5-11), we invite you to visit the [facility] webpage. [email or web address]://[email or web address]/[email or web address]-[email or web address]-Luoosvnkgl-[email or web address]-Hka stions.htmlTo learn more about the COVID-19 vaccine, we invite you to visit the [facility] website for a list of frequently asked questions. [email or web address]-Dcgyrypoox _[email or web address]-Questions.pdf [facility] Patient Portal Access Instructions: Stay connected with your healthcare team and access your personal medical information anytime with the [facility] Patient Portal. If you would like a full copy of your medical records please contact the [facility] Medical Records Department Saturday through Saturday between 8a.m. and 4:30p.m. Please follow the directions below to access the portal: 1.Access the email account you provided upon registration to the hospital.2.Look for an invitation email from [facility].3.Open the email and access the invitation link: Accept Invitation to [facility]4.Fill in the required spicer to create your account. Sign into www.[email or web address] with your username and password that you [...] you will allow to register on the [facility] Patient Portal for access to your information. You can also access the [facility] Patient Portal on the [employer]. Simply click on "Health Records" under "HealthData" and then click on the [employer] logo. HOW TO SAFELY DISPOSE OF PRESCRIPTION [...] Call your local pharmacy or go to http://PlayDo.IguanaBee in [place]/8Y8Ge2l to find one close to you.3.Make use of household items: Use cat litter or old coffee grounds to dispose medications if other options arenot available. Mix your drugs with these household products, seal them in an airtight container andthrow it into the garbage. Call [facility]: [phone] to be sure your drugs can be [...] aware that I should contact my doctor. Patient/Director Of Teaching And Learning Signature: Date/Time: Relationship to Patient: Witness Name/Signature: Date/Time: [facility]11-12-2022 Note ORIGINAL EXAMINATION: CT OF THE ABDOMEN AND PELVIS WITH XCKFPFTG43/12/2022 11:[address] ABDOMEN/PELVIS WITH CONTRAST TECHNIQUE: [...] Sign Date: 02/24/2022 12:23:00 PM Ordering Provider: [facility]11-12-2022 Note ORIGINAL EXAMINATION: CT OF THE HEAD [...] Sign Date: 02/24/2022 12:13:11 PM Ordering Provider: [facility]11-12-2022 Note ORIGINAL EXAMINATION: CT OF THE ABDOMEN AND PELVIS WITH XYNSMUOC41/12/2022 11:[address] ABDOMEN/PELVIS WITH CONTRAST TECHNIQUE: [...] Sign Date: 02/24/2022 12:23:00 PM Ordering Provider: [facility]11-12-2022 Note ORIGINAL EXAMINATION: CT OF THE [...] Sign Date: 02/24/2022 12:13:11 PM Ordering Provider: [facility]11-12-2022 Note ORIGINAL EXAMINATION: ONE XRAY VIEW [...] Sign Date: 02/24/2022 10:42:45 AM Ordering Provider: [facility]11-12-2022 Note ORIGINAL EXAMINATION: ONE XRAY VIEW OF [...] Sign Date: 02/24/2022 10:42:45 AM Ordering Provider: [facility]11-12-2022 SARS-CoV-2 (COVID-19) RNA ADAM+probe Ql (Nph)Negative *NA* (02/24/22 9:54 AM)AO Auto Urine [id number] Hospital Discharge instructions Patient Education 03/18/2021 19:26:47 [...] drainage, or pus coming from the wound [phone] [employer]. [address] [place] [address]. All rights reserved. This information is not [...] told. 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 [address] [place] [address]. All rights reserved. This information is not [...] swelling in the outer vaginal area (labia) 4763-0116 [employer]. [address] [place] [address]. All rights reserved. This information is not intended as a substitute for professional medical care. Always follow yourhealthcare professional's instructions. Follow Up Care 03/18/2021 15:01:02 With:ANTONIO LYONS Address: [address] [facility] [address] [facility] [place] [phone] Business (1) When:2-4 days With:NANCIE SHIELDS Address: [address] [place] [address] [facility] [phone] Business (1) When:Within 2 Day(s) With:FISH JORDAN Address: [address] [facility] [place] [address]- Business (1) When:2-4 days Comments:Return to ED if symptoms worsen [facility] Evaluation + Plan note Future Appointments Appointment Date:05/26/2021 08:00:00 AM Scheduled Provider: Location:[facility] Appointment Type:PC Nurse Lab Appointment Date:06/02/2021 08:20:00 AM Scheduled Provider:FISH JORDAN APRN - WATER POLLUTION CONTROL INSPECTOR Location:[facility] Appointment Type:PC OV Follow Up Appointment Date:12/12/2021 11:00:00 AM Scheduled Provider: Location:[facility] Appointment Type:CV Procedure - AOH Echo Diagnostic Tests Pending * Levetiracetam Level [...] Level 05/27/21 * Complete Metabolic Panel 05/27/21 [facility] Evaluation + Plan note Future Appointments Appointment Date:12/20/2021 09:45:00 AM Scheduled Provider: Location:[facility] Appointment Type:CV OV Appointment Date:06/07/2022 08:00:00 AM Scheduled Provider: Location:[facility] Appointment Type:PC Nurse Lab Appointment Date:06/14/2022 04:00:00 PM Scheduled Provider:FISH JORDAN APRN, CNP Location:[facility] Appointment Type:PC OV Follow Up Future Scheduled Tests Laboratory* Levetiracetam Level 06/09/22 * Complete Blood Count 06/09/22 * Lipid Profile 06/09/22 * Microalbumin Level Urine 06/09/22 * Vitamin D Level 06/09/22 * Complete Metabolic Panel 06/09/22 [facility] Evaluation + Plan note Future Appointments Appointment Date:06/07/2022 08:00:00 AM Scheduled Provider: Location:[facility] Appointment Type:PC Nurse Lab Appointment Date:06/14/2022 04:00:00 PM Scheduled Provider:FISH JORDAN APRN, CNP Location:[facility] Appointment Type:PC OV Follow Up Appointment Date:12/20/2022 09:00:00 AM Scheduled Provider: Location:[facility] Appointment Type:CV Procedure - AO Echo Future Scheduled Tests Laboratory* Levetiracetam Level 06/09/22 * Complete Blood Count 06/09/22 * Lipid Profile 06/09/22 * Microalbumin Level Urine 06/09/22 * Vitamin D Level 06/09/22 * Complete Metabolic Panel 06/09/22 [facility] Evaluation + Plan note Future Appointments Appointment Date:02/27/2022 08:40:00 AM Scheduled Provider:FISH JORDAN APRN, CNP Location:[facility] [...] Level 06/09/22 * Complete Metabolic Panel 06/09/22 [facility] Evaluation + Plan note Future [...] Panel 06/09/22 * Complete Metabolic Panel 02/27/22 [facility] Evaluation + Plan note Future Appointments Appointment Date:04/09/2022 11:30:00 AM Scheduled Provider: Location:[facility] Appointment Type:BD Bone Density DEXA Axial Skeleton Appointment Date:04/11/2022 08:00:00 AM Scheduled Provider: Location:[facility] Appointment Type:MA Mammogram Screening Bilateral w/ Tomasz Appointment Date:06/07/2022 08:00:00 AM Scheduled Provider: Location:[facility] Appointment Type:PC Nurse Lab Appointment Date:06/14/2022 04:00:00 PM Scheduled Provider:FISH JORDAN APRN, CNP Location:[facility] Appointment Type:PC OV Follow Up Appointment [...] BD Bone Density DEXA Axial Skeleton 04/09/22 [facility] Evaluation + Plan note Future [...] Axial Skeleton 04/09/22 * MRI Kidney 09/28/22 [facility] Evaluation + Plan note Future Appointments Appointment Date:06/14/2022 04:00:00 PM Scheduled Provider:FISH JORDAN APRN, CNP Location:[facility] Appointment Type:PC OV Follow Up Appointment Date:12/20/2022 09:00:00 AM Scheduled Provider: Location:[facility] Appointment Type:CV Procedure - AOH Echo Future Scheduled Tests Laboratory* Levetiracetam Level 02/27/22 * Microalbumin Level Urine 06/09/22 * Valproic Acid Level 02/27/22 * Complete Metabolic Panel 02/27/22 Radiology* BD Bone Density DEXA Axial Skeleton 04/09/22 * MRI Kidney 09/28/22 [facility] Evaluation + Plan note Future Appointments Appointment Date:12/13/2022 08:30:00 AM Scheduled Provider: Location:[facility] Appointment Type:PC Nurse Lab Appointment Date:12/20/2022 09:00:00 AM Scheduled Provider: Location:[facility] Appointment Type:CV Procedure - AOH Echo Appointment Date:12/20/2022 04:00:00 PM Scheduled Provider:FISH JORDAN APRN, CNP Location:[facility] Appointment Type:PC OV Follow Up Diagnostic [...] Axial Skeleton 04/09/22 * MRI Kidney 09/28/22 [facility] Evaluation + Plan note Future [...] BD Bone Density DEXA Axial Skeleton 04/09/22 [facility] Evaluation + Plan note Future Appointments Appointment Date:12/20/2022 07:00:00 AM Scheduled Provider:FISH JORDAN APRN, CNP Location:[facility] Appointment Type:PC OV Follow Up Appointment Date:12/20/2022 09:00:00 AM Scheduled Provider: Location:[facility] Appointment Type:CV Procedure - AOH Echo Diagnostic Tests Pending * Renin, Plasma 12/13/22 Future Scheduled Tests Laboratory* Microalbumin Level Urine 12/15/22 Radiology* BD Bone Density DEXA Axial Skeleton 04/09/22 [facility] Evaluation + Plan note Future Appointments Appointment Date:06/13/2023 08:00:00 AM Scheduled Provider: Location:[facility] Appointment Type:PC Nurse Lab Appointment Date:06/20/2023 [...] BD Bone Density DEXA Axial Skeleton 04/09/22 [facility] Evaluation + Plan note Future Appointments Appointment Date:06/20/2023 07:00:00 AM Scheduled Provider:FISH JORDAN APRN, CNP Location:[facility] Appointment Type:PC OV Follow Up Future Scheduled Tests Laboratory* Albumin/Creatinine Ratio, Random Urine 06/20/23 * Microalbumin Level Urine 12/15/22 [facility] Evaluation + Plan note Future Appointments Appointment Date:07/05/2023 02:30:00 PM Scheduled Provider: Location:[facility] Appointment Type:CV OV Appointment Date:12/12/2023 [...] BD Bone Density DEXA Axial Skeleton 06/20/23 [facility] Evaluation + Plan note Future Appointments Appointment Date:12/12/2023 08:00:00 AM Scheduled Provider: Location:[facility] Appointment Type:PC Nurse Lab Appointment Date:12/23/2023 07:00:00 AM Scheduled Provider:FISH JORDAN APRN, CNP Location:[facility] Appointment Type:PC OV Future Scheduled Tests Laboratory* Levetiracetam (Keppra), S 12/21/23 * A1C Hemoglobin 12/21/23 * Complete Blood Count 12/21/23 * Lipid Profile 12/21/23 * Albumin/Creatinine Ratio, Random Urine 12/21/23 * Microalbumin Level Urine 12/15/22 * PTH, Intact 12/21/23 * Vitamin D Level 12/21/23 * Valproic Acid Level 12/21/23 * Complete Metabolic Panel 12/21/23 [facility] Evaluation + Plan note Future Appointments Appointment Date:12/12/2023 08:00:00 AM Scheduled Provider: Location:[facility] Appointment Type:PC Nurse Lab Appointment Date:12/23/2023 07:00:00 AM Scheduled Provider:FISH JORDAN APRN, CNP Location:[facility] Appointment Type:PC OV Diagnostic Tests Pending * Urinalysis w/ [...] Level 12/21/23 * Complete Metabolic Panel 12/21/23 [facility] Evaluation noteNo assessment information available [facility] Work Phone: Hospital course Narrative No data available for this section [facility] Hospital Discharge instructions No data available for this section [facility] Progress note No data available for this section [facility] Reason for referral (narrative)No reason for referral information availableWMarietta [facility]opathic [facility] Work Phone: Summary Purpose Family History Relationship [...] Reason for Visit Chief Complaint Admit Date LONG TERM LAB WORK April 20, 2024 5:00am LABWORK May 21, 2024 5 :00am LABWORK June 22, 2024 5:0 0am Chief Complaint Admit Date LONG TERM LAB WORK April 20, 2024 5:00am LABWORK May 21, 2024 5 :00am LABWORK June 22, 2024 5:0 0am LONG TERM LAB WORK July 20, 2024 4: 00am Chief Complaint Admit Date LABWORK May 21, 2024 5 :00am LABWORK June 22, 2024 5:0 0am LONG TERM LAB WORK July 20, 2024 4: 00am LONG TERM LAB WORK August 18, 2024 5:00 am Additional Source Comments Care Team (unrecognized sect ion and content) Care Team Personnel Name: FISH JORDAN APRN - WATER POLLUTION CONTROL INSPECTOR Position: P4 Advanced Practice Nurse Member Role: Primary Care Physician Address: Address: [address] [place] [address]- [place] Care Team Related Persons Name: JORGE PEÑA Address: Home [address] [place], [place] [phone] [place] Name: KIMBERLY PEÑA Care Team Personnel Name: FISH JORDAN REAL ESTATE APPRAISER - WATER POLLUTION CONTROL INSPECTOR Position: P4 Advanced Practice Nurse Member Role: Primary Care Physician Address: Address: [address] [place] [address]- [place] Care Team Related Persons Name: JORGE PEÑA Address: Home [address] [place], [place] [phone] [place] Name: KIMBERLY PEÑA Care Team Personnel Name: FISH JORDAN REAL ESTATE APPRAISER - WATER POLLUTION CONTROL INSPECTOR Position: P4 Advanced Practice Nurse Member Role: Primary Care Physician Address: Address: [address] [place] [phone]- Care Team Related Persons Name: JORGE PEÑA Address: Home [address] [place], [place] [phone] [place] Name: KIMBERLY PEÑA Care Team Personnel Name: FISH JORDAN REAL ESTATE APPRAISER - WATER POLLUTION CONTROL INSPECTOR Position: P4 Advanced Practice Nurse Member Role: Primary Care Physician Address: Address: [address] [place] [address] [place] Care Team Related Persons Name: JORGE PEÑA Address: Home [address] [place], [place] [phone] [place] Name: KIMBERLY PEÑA Care Team Personnel Name: FISH JORDAN REAL ESTATE APPRAISER - WATER POLLUTION CONTROL INSPECTOR Position: P4 Advanced Practice Nurse Member Role: Primary Care Physician Address: Address: [address] [place] [address]- [place] Care Team Related Persons Name: JORGE PEÑA Address: Home [address] [place], [place] [phone] [place] Name: KIMBERLY PEÑA Care Team Personnel Name: FISH JORDAN REAL ESTATE APPRAISER - WATER POLLUTION CONTROL INSPECTOR Position: P4 Advanced Practice Nurse Member Role: Primary Care Physician Address: Address: [address] [place] [address]- [place] Care Team Related Persons Name: JORGE PEÑA Address: Home [address] [place], [place] [phone] [place] Name: KIMBERLY PEÑA Care Team Personnel Name: FISH JORDAN REAL ESTATE APPRAISER - WATER POLLUTION CONTROL INSPECTOR Position: P4 Advanced Practice Nurse Member Role: Primary Care Physician Address: Address: [address] [place], [place] [address] Care Team Related Persons Name: JORGE PEÑA Address: Home [address] [place], [place] [phone] [place] Name: KIMBERLY PEÑA Care Team Personnel Name: FISH JORDAN REAL ESTATE APPRAISER - WATER POLLUTION CONTROL INSPECTOR Position: P4 Advanced Jawbone Puller Member Role: Primary Care Physician Address: Address: [address] [place] [id number] Care Team Related Persons Name: JORGE PEÑA Address: Home [address] [place], [place] [phone] [place] Name: KIMBERLY PEÑA Patient Care team [...] End: August 18, 2024 Dr. Aiden Wolfe DO Primary Care Provider Active Start: August 18, 2024 End: August 18, 2024 INFORMATION SOURCE (unrecogn ized section and content) DATE CREATED AUTHOR 09/21/2023 [facility] ([place]) DATE CREATED AUTHOR AUTHOR'S ORGANIZ ATION 05/07/2024 [facility] DATE CREATED AUTHOR AUTHOR'S ORGANJERI ATION 12/10/2024 [facility] Goals (unrecognized section and content) Goals [...] BE BASED ON THE PRIMARY CLINICAL RECORDS. [employer] [facility]. [phone] no warranty [phone] [id number] the accuracy [phone] completeness [phone] in [id number] [id number]
[2024-12-21 08:12] LABS: Hematocrit 32.9 % (37-47); Hemoglobin 10.5 g/dL (12.0-15.0); Mean Corp Hgb Conc 31.9 g/dL (32-36); Mean Corpuscular Volume 82.9 fL (81-99); Mean Platelet Vol. 10.1 fl (6.2-12.0); Platelet Count 344 K/mm3 (150-450); RBC Distribution Width CV 15.4 % (11.6-14.6); RBC Distribution Width SD 46.3 fl (35.1-43.9); Red Blood Count 3.97 M/mm3 (4.2-5.4); White Blood Count 10.0 K/mm3 (4.4-11.0)
[2024-12-21 09:56] LABS: AST(SGOT) 86 U/L (<=31); Alanine Aminotransfer ALT/SGPT 44 U/L (<=34); Albumin, Serum 3.9 g/dL (3.4-4.8); Alkaline Phosphatase 83 U/L (35-104); Anion Gap 13 (5-15); BUN 13 mg/dL (4-19); BUN/Creat Ratio 19.3 RATIO (10-20); Calcium,Total 10.6 mg/dL (7.6-11.0); Carbon Dioxide 22.5 mmol/L (21.0-32.0); Chloride 100 mmol/L (98-108); Globulin 4.1 g/dL (2.2-4.2); Glucose 142 mg/dL (70-99); Potassium 4.5 mmol/L (3.3-5.1)
== END ==
LOC: OLS.WCC 05:00
PROVIDERS: Referring Provider Family Medicine; Visit Provider Family Medicine
DX: I10 Essential (primary) hypertension (principal); I67.9 Cerebrovascular disease, unspecified; Z79.899 Other long term (current) drug therapy
CPT/HCPCS: 36415; 80053; 85027

== ENCOUNTER → 2025-02-18 05:00 | Outpatient (REF) | payer MEDICARE, MEDICAID, SELFPAY ==
--- OUTSIDE RECORDS SUMMARY | 2025-02-18 04:46 | XMS RPT_ITS | CCD ---
Author Organization [facility] CliniSyar Care Team Providers Care Tube Winder Name Role Phone NIKKI JUVENILE COURT JUDGE - EMBOSSING PRESS OPERATOR APPRENTICE, FISH James Primary Care Phys ician NIKKI JUVENILE COURT JUDGE - EMBOSSING PRESS OPERATOR APPRENTICE, FISH James Primary Care U navailable NIKKI JUVENILE COURT JUDGE - EMBOSSING PRESS OPERATOR APPRENTICE, FISH James Attending U navailable NIKKI JUVENILE COURT JUDGE - EMBOSSING PRESS OPERATOR APPRENTICE, FISH James Primary Care U leobardo GAMBLE MD, DR ELISA Clinton Attending Unavailable NIKKI JUVENILE COURT JUDGE - EMBOSSING PRESS OPERATOR APPRENTICE, FISH James Primary Care U leobardo DEAN MD, MARJ Attending Unavailable NIKKI JUVENILE COURT JUDGE - EMBOSSING PRESS OPERATOR APPRENTICE, FISH James Primary Care U leobardo DEAN MD, MARJ Attending Unavailable NIKKI JUVENILE COURT JUDGE - EMBOSSING PRESS OPERATOR APPRENTICE, FISH James Primary Care U leobardo LEONARD MD, JAMEY Admitting Unavailable DIANNE VAZQUEZ, DR GALVEZ Attending Unavailable ELIJAH CASAREZ, CHARLY Consulting Unavailable NOE CASAREZ, JM Consulting Unavailable NIKKI JUVENILE COURT JUDGE - EMBOSSING PRESS OPERATOR APPRENTICE, FISH James Consulting U navailable NIKKI JUVENILE COURT JUDGE - EMBOSSING PRESS OPERATOR APPRENTICE, FISH James Attending U navailable NIKKI JUVENILE COURT JUDGE - EMBOSSING PRESS OPERATOR APPRENTICE, FISH James Primary Care U navailable NIKKI JUVENILE COURT JUDGE - EMBOSSING PRESS OPERATOR APPRENTICE, FISH James Attending U navailable NIKKI JUVENILE COURT JUDGE - EMBOSSING PRESS OPERATOR APPRENTICE, FISH James Primary Care U navailable NIKKI JUVENILE COURT JUDGE - EMBOSSING PRESS OPERATOR APPRENTICE, FISH James Attending U navailable NIKKI JUVENILE COURT JUDGE - EMBOSSING PRESS OPERATOR APPRENTICE, FISH James Primary Care U navailable NIKKI JUVENILE COURT JUDGE - EMBOSSING PRESS OPERATOR APPRENTICE, FISH James Primary Care U navailable NIKKI JUVENILE COURT JUDGE - EMBOSSING PRESS OPERATOR APPRENTICE, FISH James Attending U navailable NIKKI JUVENILE COURT JUDGE - EMBOSSING PRESS OPERATOR APPRENTICE, FISH James Attending U navailable NIKKI JUVENILE COURT JUDGE - EMBOSSING PRESS OPERATOR APPRENTICE, FISH James Primary Care U navailable NIKKI JUVENILE COURT JUDGE - EMBOSSING PRESS OPERATOR APPRENTICE, FISH James Attending U navailable NIKKI JUVENILE COURT JUDGE - EMBOSSING PRESS OPERATOR APPRENTICE, FISH James Primary Care U navailable MEREDITH CASAREZ, DOTTY Consulting Unavailable NIKKI TAMEZ - ARLINE, FISH James Primary Care U leobardo MARQUEZ DO, AIDEN Attending Unavailable JAMEY LEONARD MD Consulting Unavailable FISH JORDAN Attending Unavailable JERMAINE CASAREZ, MARJ Attending Unavailable Joel CASAREZ, Elisa Kemp Attending Provider Unavailable Aiden VAZQUEZ, Dr. Wolfe Primary Care Provider Elisa Maldonado MD Referring Provider Unavailable Joel CASAREZ, Elisa Kemp Attending Provider Unavailable Aiden VAZQUEZ, Dr. Wolfe Primary Care Provider Elisa Maldonado MD Attending Physician Unavailabl e Aiden VAZQUEZ, Dr. Wolfe Primary Care Physician Elisa Maldonado MD Referring Provider Unavailable Aiden, Aiden Primary Care Unavailable Maldonado OLS, Elisa K Attending Unavailable Griffith, Aiden Primary Care Unavailable Maldonado OLS, Elisa K Attending Unavailable Griffith, Aiden Primary Care Unavailable Maldonado OLS, Elisa K Attending Unavailable Griffith, Aiden Primary Care Unavailable Maldonado OLS, Elisa K Attending Unavailable Aiden, Aiden Primary Care Unavailable Maldonado OLS, Elisa Kemp Attending Unavailable Aiden, Aiden Primary Care Unavailable Maldonado OLS, Elisa K Attending Unavailable Aiden, Aiden Primary Care Unavailable Maldonado OLS, Elisa K Attending Unavailable Maldonado OLS, Elisa Kemp Attending Unavailable Aiden, Aiden Primary Care Unavailable Maldonado OLS, Elisa K Attending Unavailable Maldonado OLS, Elisa K Referring Unavailable Maldonado OLS, Elisa K Attending Unavailable Maldonado OLS, Elisa K Attending Unavailable Maldonado OLS, Elisa K Referring Unavailable Maldonado OLS, Elisa Kemp Attending Unavailable Medications Current Medications Medication Drug Class(es) Dates Sig (Normalized) Sig (Original) acetaminophen 650 mg oral tablet (2 sources) Start: 08-12-2023 acetaminophen Dose : 650 mg = 2 tab(s), Oral, q6hWA, PRN Pain, scale 1-10, 0 Refill(s) Start Date: 08/12/23 Status: Ordered amLODIPine 5 mg oral tablet (20 sources) Dihydropyridine Calcium Channel Loyd Start: 01-30-2016 End: 12-17-2023 amLODIPine 5 mg oral tablet Dose : 5 mg = 1 tab(s), Oral, qDay, # 90 tab(s), 1 Refill(s), Pharmacy: [facility], HTN (hypertension), 159, cm, 06/20/23 7:04:00 EST, Height, kg, 06/20/23 7:04:00 EST, Dosing Weight Start Date: 06/20/23 Stop Date: 12/17/23 Status: Ordered amoxicillin 500 mg / clavulanate [...] cough, # 30 cap(s), 0 Refill(s), Pharmacy: [facility], Acute cough, 159, cm, 05/01/23 14:01:00 EST, [...] use, # 3 cap(s), 4 Refill(s), Pharmacy: [facility], Vitamin D deficiency, 159, cm, 06/20/23 7:04:00 EST, Height, kg, 06/20/23 7:04:00 EST, Dosing Weight Start Date: 06/20/23 Stop Date: 11/17/23 Status: Ordered Start: 12-20-2022 End: 05-19-2023 cholecalciferol 1250 mcg (50 ,000 intl units) oral capsule Dose : 50,000 International_Unit = 1 cap(s), Oral, qmonth, Failed conservative OTC daily use, # 3 cap(s), 4 Refill(s), Pharmacy: [facility], Vitamin D deficiency, 160, cm, 12/20/22 7:08:00 EDT, Height, kg, 12/20/22 7:08:00 EDT, Dosing Weight Start Date: 12/20/22 Stop Date: 05/19/23 Status: Ordered Start: 06-28-2022 End: 05-19-2023 cholecalciferol 1250 mcg (50 ,000 intl units) oral capsule Dose : 50,000 International_Unit = 1 cap(s), Oral, qmonth, Failed conservative OTC daily use, # 3 cap(s), 4 Refill(s), Pharmacy: [facility], Vitamin D deficiency, 160, cm, 12/20/22 7:08:00 EDT, Height, kg, 12/20/22 7:08:00 EDT, Dosing Weight Start Date: 12/20/22 Stop Date: 05/19/23 Status: Ordered Start: 12-07-2021 End: 06-27-2022 cholecalciferol 1250 mcg (50 ,000 intl units) oral capsule Dose : 50,000 International_Unit = 1 cap(s), Oral, qmonth, Failed conservative OTC daily use, # 2 cap(s), 0 Refill(s), Pharmacy: [facility], Vitamin D deficiency, 160, cm, 03/30/22 15:08:00 EST, Height, kg, 03/30/22 15:08:00 EST, Dosing Weight Start Date: 05/28/22 Stop Date: 06/27/22 Status: Ordered Start: 11-24-2020 End: 08-21-2021 cholecalciferol 1250 mcg (50 ,000 intl units) oral capsule Dose : 50,000 International_Unit = 1 cap(s), Oral, qWeek, Failed conservative OTC daily use, # 13 cap(s), 2 Refill(s), Pharmacy: [facility], Vitamin D deficiency, 159, [...] q2wk, # 2 mL, 12 Refill(s), Pharmacy: [facility], 159, cm, 08/02/23 9:46:00 EDT, Height, kg, 08/02/23 9:46:00 EDT, Dosing Weight Start Date: 08/02/23 Status: Ordered Start: 02-04-2023 inject 1 dose by sub cutaneous injection every other week Repatha SureClick 140 mg/mL subcutaneous solution Dose : 140 mg =, Subcutaneous, q2wk, # 2 mL, 0 Refill(s), Pharmacy: [facility], 160, cm, 12/20/22 7:08:00 EDT, Height, kg, 12/20/22 7:08:00 EDT, Dosing Weight Start Date: 02/04/23 Status: Ordered Start: 10-04-2022 inject 1 dose by sub cutaneous injection every other week Repatha SureClick 140 mg/mL subcutaneous solution Dose : 140 mg =, Subcutaneous, q2wk, # 1 mL, 3 Refill(s), Pharmacy: [facility], 160, cm, 06/14/22 16:06:00 EST, Height, kg, 06/14/22 16:06:00 EST, Dosing Weight Start Date: 10/04/22 Status: Ordered Start: 12-20-2021 inject 1 dose by sub cutaneous injection every other week Repatha SureClick 140 mg/mL subcutaneous solution Dose : 140 mg =, Subcutaneous, q2wk, # 3 mL, 11 Refill(s), Pharmacy: [place] [id number], 160, cm, 12/20/21 10:10:00 EDT, Height, kg, 12/20/21 10:10:00 EDT, Dosing Weight Start Date: 12/20/21 Status: Ordered Start: 11-28-2021 inject 1 dose by sub cutaneous injection every other week Repatha SureClick 140 mg/mL subcutaneous solution Dose : 140 mg =, Subcutaneous, q2wk, # 2 kit(s), 0 Refill(s), Pharmacy: [place] [id number], 167, cm, 06/02/21 8:18:00 EST, Height, kg, 06/02/21 8:18:00 EST, Dosing Weight Start Date: 11/28/21 Status: Ordered hydroCHLOROthiazide 25 mg oral tablet (19 sources) Thiazide Diuretic Start: 06-20-2023 End: 12-17-2023 hydroCHLOROthiazide 25 mg oral tablet Dose : 25 mg = 1 tab(s), Oral, qDay, # 90 tab(s), 1 Refill(s), Pharmacy: [place] [id number], HTN (hypertension), 159, cm, 06/20/23 7:04:00 EST, Height, kg, 06/20/23 7:04:00 EST, Dosing Weight Start Date: 06/20/23 Stop Date: 12/17/23 Status: Ordered Start: 12-20-2022 End: 06-18-2023 hydroCHLOROthiazide 25 mg or al tablet Dose : 25 mg = 1 tab(s), Oral, qDay, # 90 tab(s), 1 Refill(s), Pharmacy: [place] [id number], HTN (hypertension), 160, cm, 12/20/22 7:08:00 EDT, Height, kg, 12/20/22 7:08:00 EDT, Dosing Weight Start Date: 12/20/22 Stop Date: 06/18/23 Status: Ordered Start: 06-14-2022 End: 12-11-2022 hydroCHLOROthiazide 25 mg or al tablet Dose : 25 mg = 1 tab(s), Oral, qDay, # 90 tab(s), 1 Refill(s), Pharmacy: [facility], HTN (hypertension), 160, cm, 06/14/22 16:06:00 EST, Height, kg, 06/14/22 16:06:00 EST, Dosing Weight Start Date: 06/14/22 Stop Date: 12/11/22 Status: Ordered Start: 12-07-2021 End: 06-05-2022 hydroCHLOROthiazide 25 mg or al tablet Dose : 25 mg = 1 tab(s), Oral, qDay, # 90 tab(s), 1 Refill(s), Pharmacy: [facility], HTN (hypertension), 160, cm, 12/07/21 8:16:00 EDT, Height, kg, 12/07/21 8:16:00 EDT, Dosing Weight Start Date: 12/07/21 Stop Date: 06/05/22 Status: Ordered Start: 11-24-2020 End: 08-21-2021 hydroCHLOROthiazide 25 mg or al tablet Dose : 25 mg = 1 tab(s), Oral, qDay, # 90 tab(s), 2 Refill(s), Pharmacy: [facility], HTN (hypertension), 159, cm, 11/24/20 8:03:00 EDT, Height, kg, 11/24/20 8:03:00 EDT, Dosing Weight Start Date: 11/24/20 Stop Date: 08/21/21 Status: Ordered hydroCHLOROthiazide 12.5 mg / irbesartan 300 mg oral tablet (5 sources) Thiazide Diuretic, Angiotensin 2 Receptor Loyd Start: 01-30-2016 hydrocortisone 10 mg/ml / neomycin 3.5 mg/ml / polymyxin b [id number] unt/ml otic suspension (1 source) Aminoglycoside Antibacterial, Polymyxin-class Antibacterial, Corticosteroid Start: 02-27-2022 End: 11-22-2022 hydrocortisone/neom ycin/polymyxin B 1%-0.35%-10,000 units/mL otic suspension Dose = 4 drop(s), Ear, left, TID, shake well before using, X 7 day(s), # 10 mL, 0 Refill(s), Pharmacy: [facility], Acute otitis media with perforation: LEFT ONLY, 160, cm, 02/27/22 9:01:00 EST, Height Start Date: 02/27/22 Stop Date: 03/06/22 Status: Ordered levETIRAcetam 750 mg oral tablet (20 sources) Start: 06-02-2021 levETIRAcetam 750 mg oral tablet Dose : 1,500 mg = 2 tab(s), Oral, BID, # 360 tab(s), 0 Refill(s) Start Date: 06/02/21 Status: Ordered Start: 02-02-2016 End: 08-21-2021 take 1 tablet by mouth twice daily loratadine 10 mg oral tablet (8 sources) Start: 11-06-2022 loratadine 10 mg oral tablet Dose : 10 mg = 1 tab(s), Oral, qDay, # 30 tab(s), 1 Refill(s), Pharmacy: [facility], Seasonal allergies Seasonal asthma, 160, cm, 11/06/22 8:03:00 EDT, Height, kg, 11/06/22 7:59:00 EDT, Dosing Weight Start Date: 11/06/22 Status: Ordered losartan potassium 100 mg oral tablet (20 sources) Angiotensin 2 Receptor Loyd Start: 06-20-2023 End: 12-17-2023 losartan 100 mg oral tablet Dose : 100 mg = 1 tab(s), Oral, qDay, # 90 tab(s), 1 Refill(s), Pharmacy: [facility], HTN (hypertension), 159, cm, 06/20/23 7:04:00 EST, Height, kg, 06/20/23 7:04:00 EST, Dosing Weight Start Date: 06/20/23 Stop Date: 12/17/23 Status: Ordered Start: 12-20-2022 End: 06-18-2023 losartan 100 mg oral tablet Dose : 100 mg = 1 tab(s), Oral, qDay, # 90 tab(s), 1 Refill(s), Pharmacy: [facility], HTN (hypertension), 160, cm, 12/20/22 7:08:00 EDT, Height, kg, 12/20/22 7:08:00 EDT, Dosing Weight Start Date: 12/20/22 Stop Date: 06/18/23 Status: Ordered Start: 06-14-2022 End: 12-11-2022 losartan 100 mg oral tablet Dose : 100 mg = 1 tab(s), Oral, qDay, # 90 tab(s), 1 Refill(s), Pharmacy: [facility], HTN (hypertension), 160, cm, 06/14/22 16:06:00 EST, Height, kg, 06/14/22 16:06:00 EST, Dosing Weight Start Date: 06/14/22 Stop Date: 12/11/22 Status: Ordered Start: 12-07-2021 End: 06-05-2022 losartan 100 mg oral tablet Dose : 100 mg = 1 tab(s), Oral, qDay, # 90 tab(s), 1 Refill(s), Pharmacy: [facility], HTN (hypertension), 160, cm, 12/07/21 8:16:00 EDT, Height, kg, 12/07/21 8:16:00 EDT, Dosing Weight Start Date: 12/07/21 Stop Date: 06/05/22 Status: Ordered Start: 11-24-2020 End: 08-21-2021 losartan 100 mg oral tablet Dose : 100 mg = 1 tab(s), Oral, qDay, # 90 tab(s), 2 Refill(s), Pharmacy: [facility], HTN (hypertension), 159, cm, 11/24/20 8:03:00 EDT, [...] b6 10 mg extended release oral tablet (5 sources) Start: 01-30-2016 take 1 tablet by mouth at bedtime phenytoin sodium 100 mg oral capsule (12 sources) Anti-epileptic Agent Start: 11-24-2020 End: 08-21-2021 Dilantin 100 mg oral capsule, extended release Dose : 100 mg = 1 cap(s), Oral, TID, # 42 cap(s), 0 Refill(s), Seizure UTI - Urinary tract infection Start Date: 03/18/21 Stop Date: 04/01/21 Status: Ordered Start: 01-30-2016 take 4 capsules by mouth at be dtime Start: 01-30-2016 Repatha SureClick 140 mg/mL subcutaneous solution (1 source) Start: 01-09-2021 inject 1 dose by subcutaneous injection every other week Repatha SureClick 140 mg/mL subcutaneous solution Dose : 140 mg =, Subcutaneous, q2wk, # 2 kit(s), 11 Refill(s), Pharmacy: [facility], 160, cm, 01/09/21 9:17:00 EDT, Height, kg, 01/09/21 9:17:00 EDT, Dosing Weight Start Date: 01/09/21 Status: Ordered Spacer, inhaler (10 sources) Start: 11-06-2022 Spacer, inhale r See Instructions, use as directed Pt has developmental disorder and spacer required to insure proper use of inhaler., # 1 EA, 0 Refill(s), Pharmacy: [facility], Seasonal asthma Developmentally disabled, [...] q6h, # 18 gram(s), 1 Refill(s), Pharmacy: [facility], Seasonal asthma Developmentally disabled, 159, cm, 06/20/23 7:04:00 EST, Height, kg, 06/20/23 7:04:00 EST, Dosing Weight Start Date: 06/20/23 Stop Date: 08/19/23 Status: Ordered Start: 12-20-2022 End: 02-18-2023 take 2 puff(s) by inhalation every six hours albuterol MDI (90 mcg/inh) CFC free inhalation aerosol 2 puff(s), Inhalation, q6h, # 18 gram(s), 1 Refill(s), Pharmacy: [facility], Seasonal asthma Developmentally disabled, 160, cm, 12/20/22 7:08:00 EDT, Height, kg, 12/20/22 7:08:00 EDT, Dosing Weight Start Date: 12/20/22 Stop Date: 02/18/23 Status: Ordered Start: 11-06-2022 End: 01-05-2023 take 2 puff(s) by inhalation every six hours albuterol MDI (90 mcg/inh) CFC free inhalation aerosol 2 puff(s), Inhalation, q6h, # 18 gram(s), 1 Refill(s), Pharmacy: [facility], Seasonal asthma Developmentally disabled, 160, [...] qHS, # 30 tab(s), 1 Refill(s), Pharmacy: [facility], Seasonal allergies, 159, cm, 11/24/20 8:03:00 EDT, Height, kg, 11/24/20 8:03:00 EDT, Dosing Weight Start Date: 11/24/20 Stop Date: 01/23/21 Status: Ordered montelukast 10 mg oral tablet (14 sources) Leukotriene Receptor Antagonist Start: 11-06-2022 End: 01-05-2023 Singulair 10 mg oral tablet Dose : 10 mg = 1 tab(s), Oral, qDay, # 30 tab(s), 1 Refill(s), Pharmacy: [facility], Seasonal allergies Seasonal asthma, 160, cm, 11/06/22 8:03:00 EDT, Height, kg, 11/06/22 7:59:00 EDT, Dosing Weight Start Date: 11/06/22 Stop Date: 01/05/23 Status: Ordered Start: 06-14-2022 Singulair 10 m g oral tablet Dose : 10 mg = 1 tab(s), Oral, qDay, # 30 tab(s), 1 Refill(s), Pharmacy: [facility], Seasonal asthma, 160, cm, 06/14/22 16:06:00 EST, Height, kg, 06/14/22 16:06:00 EST, Dosing Weight Start Date: 06/14/22 Status: Ordered Start: 12-07-2021 Singulair 10 m g oral tablet Dose : 10 mg = 1 tab(s), Oral, qDay, # 30 tab(s), 1 Refill(s), Pharmacy: [facility], Seasonal asthma, 160, cm, 12/07/21 8:16:00 [...] qDay, # 90 tab(s), 1 Refill(s), Pharmacy: [facility], Hyperlipidemia LDL goal Start Date: 12/20/22 Stop Date: 06/18/23 Status: Ordered Start: 06-14-2022 End: 12-11-2022 rosuvastatin 10 mg oral tabl et Dose : 10 mg = 1 tab(s), Oral, qDay, # 90 tab(s), 1 Refill(s), Pharmacy: [facility], Hyperlipidemia LDL goal Start Date: 06/14/22 Stop Date: 12/11/22 Status: Ordered Start: 12-07-2021 End: 06-05-2022 rosuvastatin 10 mg oral tabl et Dose : 10 mg = 1 tab(s), Oral, qDay, # 90 tab(s), 1 Refill(s), Pharmacy: [facility], Hyperlipidemia LDL goal Start Date: 12/07/21 Stop Date: 06/05/22 Status: Ordered Start: 11-24-2020 End: 08-21-2021 rosuvastatin 10 mg oral tabl et Dose : 10 mg = 1 tab(s), Oral, qDay, # 90 tab(s), 2 Refill(s), Pharmacy: [facility], Hyperlipidemia LDL goal Start Date: 11/24/20 Stop Date: 08/21/21 Status: Ordered valproic acid 250 mg oral capsule (20 sources) Mood Stabilizer, Anti-epileptic Agent Start: 08-12-2023 End: 05-29-2024 valproic acid 250 mg oral capsule Dose : 750 mg = 3 cap(s), Oral, TID, # 270 cap(s), 0 Refill(s), other reason (Rx) Start Date: 08/12/23 Stop Date: 09/11/23 Status: Ordered Start: 01-30-2016 take 1 tablet by mouth every t wenty-four hours Start: 01-30-2016 take 1 tablet by mouth every t wenty-four hours Start: 01-30-2016 Problems Active Problems Problem Classification Problem Date [...] [Chronic kidney disease, stage 3 unspecified] Onset: 02-29-2024 Deficiency and other anemia (1 source) Anemia [...] deficiency; Translations: [Vitamin D deficiency, unspecified] Onset: 01-19-2025 11-10-2019 Chronic Osteoporosis (20 sources) Osteoporosis 11-10-2019 Chronic Other aftercare (2 sources) Other care home (current) drug therapy; 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] Onset: 12-29-2024 Episodic Other and ill-defined cerebrovascular disease (2 sources) Cerebrovascular disease, unspecified; Translations: [Cerebrovascular disease, unspecified] Onset: 10-23-2024 Chronic Other and ill-defined cerebrovascular disease (1 [...] source) Encephalopathy, unspecified; Translations: [Encephalopathy, unspecified] Onset: 01-15-2025 Chronic Other nervous system disorders (1 source) [...] Unclassified (17 sources) Intellectual disability 02-27-2022 Unclassified (5 sources) MRDD 01-30-2016 Urinary tract infections (1 source) Urinary tract infectious disease; Translations: [Urinary tract infection, site not specified] Onset: 03-18-2021 Episodic Past or Other Problems Problem Classification Problem Date Documented Da te Episodic/Chronic Diabetes mellitus without complication (14 sources) Impaired fasting glycemia; Translations: [Impaired fasting glucose] Onset: 06-13-2023 06-14-2022 Episodic Results Test Name Value Interpretation Reference Range Facility Anion gap in Serum or Plasma Ordered By: Elisa Maldonado on 12-21-2024 Anion gap [Moles/Vol] 13 mmol/L 5- [facility] BUN/creatinine ratioOrdered By: Elisa Maldonado on 12-21-2024 Urea nitrogen/Creatinine [Mass ratio] 19.3 mg/mg 10- [facility] Bilirubin, totalOrdered By: Elisa Maldonado on 12-21-2024 Bilirubin [Mass/Vol] 0.20 mg/dL 0.00-1.30 [facility] CBC-Complete Blood Cnt No Di ffon 12-21-2024 Erythrocyte distribution width (RBC) [Ratio] 15.4 % High 11.6-14.6 [facility] Comment on above: Order Comment: 120-1 Performed By: #### L 100.0500, [id number] #### [facility] [address] [place], [address] Hematocrit (Bld) [Volume fraction] 32.9 % Low 37-47 [facility] Comment on above: Order Comment: 120-1 Performed By: #### L 100.0500, [id number] #### [facility] [address] [place], [address] Hemoglobin (Bld) [Mass/Vol] 10.5 g/dL Low 12.0-15.0 [facility] Comment on above: Order Comment: 120-1 Performed By: #### L 100.0500, [id number] #### [facility] [address] [place], [address] MCH (RBC) [Entitic mass] 26.4 pg Low 27.0-32.0 [facility] Comment on above: Order Comment: 120-1 Performed By: #### L 100.0500, [id number] #### [facility] [address] [place], [address] MCHC (RBC) [Mass/Vol] 31.9 g/dL Low 32-36 [facility] Comment on above: Order Comment: 120-1 Performed By: #### L 100.0500, [id number] #### [facility] [address] [place], [address] MCV (RBC) [Entitic vol] 82.9 fL Normal 81-99 [facility] Comment on above: Order Comment: 120-1 Performed By: #### L 100.0500, [id number] #### [facility] [address] [place], [address] Platelet mean volume (Bld) [Entitic vol] 10.1 fL Normal 6.2-12.0 [facility] Comment on above: Order Comment: 120-1 Performed By: #### L 100.0500, [id number] #### [facility] [address] [place], [address] Platelets (Bld) [#/Vol] 344 10*3/uL Normal 150-450 [facility] Comment on above: Order Comment: 120-1 Performed By: #### L 100.0500, [id number] #### [facility] [address] [place], [address] RBC (Bld) [#/Vol] 3.97 10*6/uL Low 4.2-5.4 [facility] Comment on above: Order Comment: 120-1 Performed By: #### L 100.0500, [id number] #### [facility] [address] [place], [address] RDW SD 46.3 fl High 35.1-43.9 [facility] Comment on above: Order Comment: 120-1 Performed By: #### L 100.0500, [id number] #### [facility] [address] [place], [address] WBC (Bld) [#/Vol] 10.0 10*3/uL Normal 4.4-11.0 [facility] Comment on above: Order Comment: 120-1 Performed By: #### L 100.0500, [id number] #### [facility] [address] [place], [address] Carbon dioxide, total [Moles /volume] in Central venous bloodOrdered By: Elisa Maldonado on 12-21-2024 CO2 [Moles/Vol] 22.5 mmol/L 21.0-32.0 [facility] Chloride assayOrdered By: Lanette Maldonado on 12-21-2024 Chloride [Moles/Vol] 100 mmol/L 98-108 [facility] Comprehensive Metabolic Prof ilon 12-21-2024 Albumin [Mass/Vol] 3.9 g/dL Normal 3.4-4.8 [facility] Comment on above: Order Comment: 120-1 Performed By: #### L 100.0500, [id number] #### [facility] [address] [place], [address] Albumin/Globulin [Mass ratio] 1.0 {ratio} Normal 0.9-2.4 [facility] Comment on above: Order Comment: 120-1 Performed By: #### L 100.0500, [id number] #### [facility] [address] [place], [address] ALK PHOS 83 U/L Normal 35-104 [facility] Comment on above: Order Comment: 120-1 Performed By: #### L 100.0500, [id number] #### [facility] [address] [place], [address] ALT [Catalytic activity/Vol] 44 U/L High <=34 [facility] Comment on above: Order Comment: 120-1 Performed By: #### L 100.0500, [id number] #### [facility] [address] [place], [address] AST [Catalytic activity/Vol] 86 U/L High <=31 [facility] Comment on above: Order Comment: 120-1 Performed By: #### L 100.0500, L500.4050 #### [facility] [address] [place], [address] Bilirubin [Mass/Vol] 0.20 mg/dL Normal 0.00-1.30 [facility] Comment on above: Order Comment: 120-1 Performed By: #### L 100.0500, L500.4050 #### [facility] [address] [place], [address] BUN/CRE 19.3 RATIO Normal 10-20 [facility] Comment on above: Order Comment: 120-1 Performed By: #### L 100.0500, L500.4050 #### [facility] [address] [place], [address] Calcium [Mass/Vol] 10.6 mg/dL Normal 7.6-11.0 [facility] Comment on above: Order Comment: 120-1 Performed By: #### L 100.0500, L500.4050 #### [facility] [address] [place], [address] Chloride [Moles/Vol] 100 mmol/L Normal 98-108 [facility] Comment on above: Order Comment: 120-1 Performed By: #### L 100.0500, L500.4050 #### [facility] [address] [place], [address] CO2 [Moles/Vol] 22.5 mmol/L Normal 21.0-32.0 [facility] Comment on above: Order Comment: 120-1 Performed By: #### L 100.0500, L500.4050 #### [facility] [address] [place], [address] Creatinine [Mass/Vol] 0.67 mg/dL Low 0.70-1.20 [facility] Comment on above: Order Comment: 120-1 Performed By: #### L 100.0500, L500.4050 #### [facility] [address] [place], [address] GAP 13 Normal 5-15 [facility] Comment on above: Order Comment: 120-1 Performed By: #### L 100.0500, L500.4050 #### [facility] [address] [place], [address] GFR/1.73 sq M.predicted among non-blacks MDRD (S/P/Bld) [Vol rate/Area] 95 mL/min/{1.73_m2} Normal >60 [facility] Comment on above: Order Comment: 120-1 Result Comment: mL/m in/1.73m2 CKD-EPI Creatinine Equation (2020) Performed By: #### L 100.0500, L500.4050 #### [facility] [address] [place], [address] Globulin (S) [Mass/Vol] 4.1 g/dL Normal 2.2-4.2 [facility] Comment on above: Order Comment: 120-1 Performed By: #### L 100.0500, L500.4050 #### [facility] [address] [place], [address] Glucose [Mass/Vol] 142 mg/dL High 70-99 [facility] Comment on above: Order Comment: 120-1 Performed By: #### L 100.0500, L500.4050 #### [facility] [address] [place], [address] Potassium [Moles/Vol] 4.5 mmol/L Normal 3.3-5.1 [facility] Comment on above: Order Comment: 120-1 Performed By: #### L 100.0500, L500.4050 #### [facility] [address] [place], [address] Sodium [Moles/Vol] 136 mmol/L Normal 133-145 [facility] Comment on above: Order Comment: 120-1 Performed By: #### L 100.0500, L500.4050 #### [facility] [address] [place], [address] T PROT 8.0 g/dL Normal 5.9-8.4 [facility] Comment on above: Order Comment: 120-1 Performed By: #### L 100.0500, L500.4050 #### [facility] [address] [place], [address] Urea nitrogen [Mass/Vol] 13 mg/dL Normal 4-19 [facility] Comment on above: Order Comment: 120-1 Performed By: #### L 100.0500, L500.4050 #### [facility] [address] [place], [address] Erythrocyte distribution wid th ratioOrdered By: Elisa Maldonado on 12-21-2024 Erythrocyte distribution width (RBC) [Ratio] 15.4 % High 11.6-14.6 [facility] Erythrocyte distribution wid th standard deviationOrdered By: Elisa Maldonado on 12-21-2024 Erythrocyte distribution width (RBC) [Ratio] 46.3 fl High 35.1-43.9 [facility] Glomerular filtration rate ( GFR) estimation/1.73 sq m using serum, plasma, or whole bOrdered By: Elisa Maldonado on 12-21-2024 GFR/1.73 sq M.predicted among non-blacks MDRD (S/P/Bld) [Vol rate/Area] 95 mL/min/{1.73_m2} >60 [facility] Comment on above: mL/min/1.73m2 CKD-EP I Creatinine Equation (2020) Hematocrit Auto (Bld) [Volum e fraction]Ordered By: Elisa Maldonado on 12-21-2024 Hematocrit (Bld) [Volume fraction] 32.9 % Low 37-47 [facility] Hemoglobin measurementOrdere d By: Elisa Maldonado on 12-21-2024 Hemoglobin (Bld) [Mass/Vol] 10.5 g/dL Low 12.0-15.0 [facility] - Chemistry and C hemistry - challengeOrdered By: Elisa Maldonado on 12-21-2024 AST [Catalytic activity/Vol] 86 U/L High <32 [facility] MCV (mean corpuscular volume ) determinationOrdered By: Elisa Maldonado on 12-21-2024 MCV (RBC) [Entitic vol] 82.9 fL 81-99 [facility] Mean corpuscular hemoglobin (MCH) determinationOrdered By: Elisa Maldonado on 12-21-2024 MCH (RBC) [Entitic mass] 26.4 pg Low 27.0-32.0 [facility] Mean corpuscular hemoglobin concentration (MCHC) determinationOrdered By: Elisa Maldonado on 12-21-2024 MCHC (RBC) [Mass/Vol] 31.9 g/dL Low 32-36 [facility] Mean platelet volume determi nationOrdered By: Elisa Maldonado on 12-21-2024 Platelet mean volume (Bld) [Entitic vol] 10.1 fL 6.2-12.0 [facility] Platelet countOrdered By: Lanette Maldonado on 12-21-2024 Platelets (Bld) [#/Vol] 344 10*3/uL 150-450 [facility] Potassium measurement (mass/ volume)Ordered By: Elisa Maldonado on 12-21-2024 Potassium (Unsp spec) [Mass/Vol] 4.5 mmol/L 3.3-5.1 [facility] RBC Auto (Bld) [#/Vol]Ordere d By: Elisa Maldonado on 12-21-2024 RBC (Bld) [#/Vol] 3.97 10*6/uL Low 4.2-5.4 [facility] Serum creatinine measurement (mass/volume)Ordered By: Elisa Maldonado on 12-21-2024 Creatinine [Mass/Vol] 0.67 mg/dL Low 0.70-1.20 [facility] Serum globulin measurementOr dered By: Elisa Maldonado on 12-21-2024 Globulin (S) [Mass/Vol] 4.1 g/dL 2.2-4.2 [facility] Serum glucose measurement (m ass/volume)Ordered By: Elisa Maldonado on 12-21-2024 Glucose [Mass/Vol] 142 mg/dL High 70-99 [facility] Serum or plasma alanine curry otransferase (ALT) measurementOrdered By: Elisa Maldonado on 12-21-2024 ALT [Catalytic activity/Vol] 44 U/L High <35 [facility] Serum or plasma albumin emily urement (mass/volume)Ordered By: Elisa Maldonado on 12-21-2024 Albumin [Mass/Vol] 3.9 g/dL 3.4-4.8 [facility] Serum or plasma albumin/glob ulin mass ratioOrdered By: Elisa Maldonado on 12-21-2024 Albumin/Globulin [Mass ratio] 1.0 {ratio} 0.9-2.4 [facility] Serum or plasma alkaline mago sphatase measurementOrdered By: Elisa Maldonado on 12-21-2024 ALP [Catalytic activity/Vol] 83 U/L 35-104 [facility] Serum or plasma calcium emily urement (mass/volume)Ordered By: Elisa Maldonado on 12-21-2024 Calcium [Mass/Vol] 10.6 mg/dL 7.6-11.0 [facility] Serum or plasma urea nitroge n measurement (mass/volume)Ordered By: Elisa Maldonado on 12-21-2024 Urea nitrogen [Mass/Vol] 13 mg/dL 4-19 [facility] Sodium levelOrdered By: Elisa Maldonado on 12-21-2024 Sodium [Moles/Vol] 136 mmol/L 133-145 [facility] Total proteinOrdered By: Clif Maldonado on 12-21-2024 Protein [Mass/Vol] 8.0 g/dL 5.9-8.4 [facility] White blood cell (WBC) count Ordered By: Elisa Maldonado on 12-21-2024 WBC (Bld) [#/Vol] 10.0 10*3/uL 4.4-11.0 [facility] Serum or plasma valproate me asurement (mass/volume)Ordered By: Elisa Maldonado on 11-18-2024 Valproate [Mass/Vol] 69 ug/mL 50-100 [facility] Comment on above: Valproic Acid concen trations >100 ug/mL are potentially toxic. Valproic Acid (Depakene) Lev alpa 11-18-2024 VALPROIC ACID 69 ug/mL Normal 50-100 [facility] Comment on above: Order Comment: 120-1 Result Comment: Valp roic Acid concentrations >100 ug/mL are potentially toxic. Performed By: #### L 100.0500, L500.4050 #### [facility] [address] [place], [address] Vitamin D,25 Hydroxyon 11-18 Vitamin D 25-OH 28.1 ng/mL Low 30-100 [facility] Comment on above: Order Comment: 120-1 Result Comment: Debo min D Status Deficiency: <20 ng/mL (50nmol/L) Insufficiency: 20-30 ng/mL (50-75 nmol/L) Sufficiency: 30-100 ng/mL (75-250 nmol/L) Toxicity: >100 ng/mL (>250 nmol/L) Performed By: #### L 100.0500, L500.4050 #### [facility] [address] [place], [place], [address] L3700.3000on 10-14-2024 PHENobarbital [Mass/Vol] 5 ug/mL Abnormal 15-40 [facility] Comment on above: Order Comment: 120-1 Result Comment: Dete ction Limit = 3 Performed at: - [facility] [id number] Assistant [employer]ing Coach: Daniel Heredia MD, Phone: [phone] Performed at: - [facility] [address] [id number] Assistant Women'S Rowing Coach: Crescencio Metcalf PhD, Phone: [phone] Performed By: #### L 100.0500, L500.4050 #### [facility] [address] [place], [address] Mysoline (Primidone)on 07-02 -2025 PHENOBARB,SERUM 5 ug/mL Low 15-40 [facility] Comment on above: Order Comment: 120-1 Result Comment: Dete ction Limit = 3 Performed By: #### L 100.0500, L500.4050 #### [facility] [address] [place], [address] PRIMIDONE,SERUM 5.4 ug/mL Normal 5.0-12.0 [facility] Comment on above: Order Comment: 120-1 Result Comment: Dete ction Limit = 2.5 <2.5 indicates None Detected Performed By: #### L 100.0500, L500.4050 #### [facility] [address] [place], [address] Anion gap in Serum or Plasma Ordered By: Elisa Maldonado on 10-13-2024 Anion gap [Moles/Vol] 13 mmol/L 5-15 [facility] BUN/creatinine ratioOrdered By: Elisa Maldonado on 10-13-2024 Urea nitrogen/Creatinine [Mass ratio] 19.4 mg/mg 10-20 [facility] Bilirubin, totalOrdered By: Elisa Maldonado on 10-13-2024 Bilirubin [Mass/Vol] 0.23 mg/dL 0.00-1.30 [facility] CBC-Complete Blood Cnt No Di ffon 10-13-2024 Erythrocyte distribution width (RBC) [Ratio] 15.3 % High 11.6-14.6 [facility] Comment on above: Order Comment: 120-1 Performed By: #### L 100.0500, L500.4050 #### [facility] [address] [place], [address] Hematocrit (Bld) [Volume fraction] 34.6 % Low 37-47 [facility] Comment on above: Order Comment: 120-1 Performed By: #### L 100.0500, L500.4050 #### [facility] [address] [place], [address] Hemoglobin (Bld) [Mass/Vol] 10.9 g/dL Low 12.0-15.0 [facility] Comment on above: Order Comment: 120-1 Performed By: #### L 100.0500, L500.4050 #### [facility] [address] [place], [address] MCH (RBC) [Entitic mass] 26.5 pg Low 27.0-32.0 [facility] Comment on above: Order Comment: 120-1 Performed By: #### L 100.0500, L500.4050 #### [facility] [address] [place], [address] MCHC (RBC) [Mass/Vol] 31.5 g/dL Low 32-36 [facility] Comment on above: Order Comment: 120-1 Performed By: #### L 100.0500, L500.4050 #### [facility] [address] [place], [address] MCV (RBC) [Entitic vol] 84.0 fL Normal 81-99 [facility] Comment on above: Order Comment: 120-1 Performed By: #### L 100.0500, L500.4050 #### [facility] [address] [place], [address] Platelet mean volume (Bld) [Entitic vol] 10.3 fL Normal 6.2-12.0 [facility] Comment on above: Order Comment: 120-1 Performed By: #### L 100.0500, L500.4050 #### [facility] [address] [place], [address] Platelets (Bld) [#/Vol] 278 10*3/uL Normal 150-450 [facility] Comment on above: Order Comment: 120-1 Performed By: #### L 100.0500, L500.4050 #### [facility] [address] [place], [address] RBC (Bld) [#/Vol] 4.12 10*6/uL Low 4.2-5.4 [facility] Comment on above: Order Comment: 120-1 Performed By: #### L 100.0500, L500.4050 #### [facility] [address] [place], [address] RDW SD 46.5 fl High 35.1-43.9 [facility] Comment on above: Order Comment: 120-1 Performed By: #### L 100.0500, L500.4050 #### [facility] [address] [place], [address] WBC (Bld) [#/Vol] 10.3 10*3/uL Normal 4.4-11.0 [facility] Comment on above: Order Comment: 120-1 Performed By: #### L 100.0500, L500.4050 #### [facility] [address] [place], [address] Carbon dioxide, total [Moles /volume] in Central venous bloodOrdered By: Elisa Maldonado on 10-13-2024 CO2 [Moles/Vol] 24.3 mmol/L 21.0-32.0 [facility] Chloride assayOrdered By: Lanette Maldonado on 10-13-2024 Chloride [Moles/Vol] 100 mmol/L 98-108 [facility] Comprehensive Metabolic Prof ilon 10-13-2024 Albumin [Mass/Vol] 3.9 g/dL Normal 3.4-4.8 [facility] Comment on above: Order Comment: 120-1 Performed By: #### L 100.0500, L500.4050 #### [facility] [address] [place], [address] Albumin/Globulin [Mass ratio] 1.0 {ratio} Normal 0.9-2.4 [facility] Comment on above: Order Comment: 120-1 Performed By: #### L 100.0500, L500.4050 #### [facility] [address] [place], [address] ALK PHOS 81 U/L Normal 35-104 [facility] Comment on above: Order Comment: 120-1 Performed By: #### L 100.0500, L500.4050 #### [facility] [address] [place], [address] ALT [Catalytic activity/Vol] 28 U/L Normal <=34 [facility] Comment on above: Order Comment: 120-1 Performed By: #### L 100.0500, L500.4050 #### [facility] [address] [place], [address] AST [Catalytic activity/Vol] 58 U/L High <=31 [facility] Comment on above: Order Comment: 120-1 Performed By: #### L 100.0500, L500.4050 #### [facility] [address] [place], [address] Bilirubin [Mass/Vol] 0.23 mg/dL Normal 0.00-1.30 [facility] Comment on above: Order Comment: 120-1 Performed By: #### L 100.0500, L500.4050 #### [facility] [address] [place], [address] BUN/CRE 19.4 RATIO Normal 10-20 [facility] Comment on above: Order Comment: 120-1 Performed By: #### L 100.0500, L500.4050 #### [facility] [address] [place], [address] Calcium [Mass/Vol] 10.8 mg/dL Normal 7.6-11.0 [facility] Comment on above: Order Comment: 120-1 Performed By: #### L 100.0500, L500.4050 #### [facility] [address] [place], [address] Chloride [Moles/Vol] 100 mmol/L Normal 98-108 [facility] Comment on above: Order Comment: 120-1 Performed By: #### L 100.0500, L500.4050 #### [facility] [address] [place], [address] CO2 [Moles/Vol] 24.3 mmol/L Normal 21.0-32.0 [facility] Comment on above: Order Comment: 120-1 Performed By: #### L 100.0500, L500.4050 #### [facility] [address] [place], [address] Creatinine [Mass/Vol] 0.76 mg/dL Normal 0.70-1.20 [facility] Comment on above: Order Comment: 120-1 Performed By: #### L 100.0500, L500.4050 #### [facility] [address] [place], [address] GAP 13 Normal 5-15 [facility] Comment on above: Order Comment: 120-1 Performed By: #### L 100.0500, L500.4050 #### [facility] [address] [place], [address] GFR/1.73 sq M.predicted among non-blacks MDRD (S/P/Bld) [Vol rate/Area] 86 mL/min/{1.73_m2} Normal >60 [facility] Comment on above: Order Comment: 120-1 Result Comment: mL/m in/1.73m2 CKD-EPI Creatinine Equation (2020) Performed By: #### L 100.0500, L500.4050 #### [facility] [address] [place], [address] Globulin (S) [Mass/Vol] 3.9 g/dL Normal 2.2-4.2 [facility] Comment on above: Order Comment: 120-1 Performed By: #### L 100.0500, L500.4050 #### [facility] [address] [place], [address] Glucose [Mass/Vol] 101 mg/dL High 70-99 [facility] Comment on above: Order Comment: 120-1 Performed By: #### L 100.0500, L500.4050 #### [facility] [address] [place], [address] Potassium [Moles/Vol] 4.5 mmol/L Normal 3.3-5.1 [facility] Comment on above: Order Comment: 120-1 Performed By: #### L 100.0500, L500.4050 #### [facility] [address] [place], [address] Sodium [Moles/Vol] 138 mmol/L Normal 133-145 [facility] Comment on above: Order Comment: 120-1 Performed By: #### L 100.0500, L500.4050 #### [facility] [address] [place], [address] T PROT 7.8 g/dL Normal 5.9-8.4 [facility] Comment on above: Order Comment: 120-1 Performed By: #### L 100.0500, L500.4050 #### [facility] [address] [place], [address] Urea nitrogen [Mass/Vol] 15 mg/dL Normal 4-19 [facility] Comment on above: Order Comment: 120-1 Performed By: #### L 100.0500, L500.4050 #### [facility] [address] [place], [address] Erythrocyte distribution wid th ratioOrdered By: Elisa Maldonado on 10-13-2024 Erythrocyte distribution width (RBC) [Ratio] 15.3 % High 11.6-14.6 [facility] Erythrocyte distribution wid th standard deviationOrdered By: Elisa Maldonado on 10-13-2024 Erythrocyte distribution width (RBC) [Ratio] 46.5 fl High 35.1-43.9 [facility] Glomerular filtration rate ( GFR) estimation/1.73 sq m using serum, plasma, or whole bOrdered By: Elisa Maldonado on 10-13-2024 GFR/1.73 sq M.predicted among non-blacks MDRD (S/P/Bld) [Vol rate/Area] 86 mL/min/{1.73_m2} >60 [facility] Comment on above: mL/min/1.73m2 CKD-EP I Creatinine Equation (2020) Hematocrit Auto (Bld) [Volum e fraction]Ordered By: Elisa Maldonado on 10-13-2024 Hematocrit (Bld) [Volume fraction] 34.6 % Low 37-47 [facility] Hemoglobin A1con 10-13-2024 HbA1c (Bld) [Mass fraction] 6.8 % High <=5.6 [facility] Comment on above: Order Comment: 120-1 Result Comment: Norm al < 5.7 % Prediabetic 5.7 - 6.4 % Diabetic >or= 6.5 % Please note range changes. Performed By: #### L 100.0500, L500.4050 #### [facility] [address] [place] [address]. [place], [address] Hemoglobin A1c percentageOrd ered By: Elisa Maldonado on 10-13-2024 HbA1c (Bld) [Mass fraction] 6.8 % High <5.7 [facility] Comment on above: Normal < 5.7 % Predi abetic 5.7 - 6.4 % Diabetic >or= 6.5 % Please note range changes. Hemoglobin measurementOrdere d By: Elisa Maldonado on 10-13-2024 Hemoglobin (Bld) [Mass/Vol] 10.9 g/dL Low 12.0-15.0 [facility] - Chemistry and C hemistry - challengeOrdered By: Elisa Maldonado on 10-13-2024 AST [Catalytic activity/Vol] 58 U/L High <32 [facility] MCV (mean corpuscular volume ) determinationOrdered By: Elisa Maldonado on 10-13-2024 MCV (RBC) [Entitic vol] 84.0 fL 81-99 [facility] Mean corpuscular hemoglobin (MCH) determinationOrdered By: Elisa Maldonado on 10-13-2024 MCH (RBC) [Entitic mass] 26.5 pg Low 27.0-32.0 [facility] Mean corpuscular hemoglobin concentration (MCHC) determinationOrdered By: Elisa Maldonado on 10-13-2024 MCHC (RBC) [Mass/Vol] 31.5 g/dL Low 32-36 [facility] Mean platelet volume determi nationOrdered By: Elisa Maldonado on 10-13-2024 Platelet mean volume (Bld) [Entitic vol] 10.3 fL 6.2-12.0 [facility] Platelet countOrdered By: Lanette Maldonado on 10-13-2024 Platelets (Bld) [#/Vol] 278 10*3/uL 150-450 [facility] Potassium measurement (mass/ volume)Ordered By: Elisa Maldonado on 10-13-2024 Potassium (Unsp spec) [Mass/Vol] 4.5 mmol/L 3.3-5.1 [facility] RBC Auto (Bld) [#/Vol]Ordere d By: Elisa Maldonado on 10-13-2024 RBC (Bld) [#/Vol] 4.12 10*6/uL Low 4.2-5.4 [facility] Serum creatinine measurement (mass/volume)Ordered By: Elisa Maldonado on 10-13-2024 Creatinine [Mass/Vol] 0.76 mg/dL 0.70-1.20 [facility] Serum globulin measurementOr dered By: Elisa Maldonado on 10-13-2024 Globulin (S) [Mass/Vol] 3.9 g/dL 2.2-4.2 [facility] Serum glucose measurement (m ass/volume)Ordered By: Elisa Maldonado on 10-13-2024 Glucose [Mass/Vol] 101 mg/dL High 70-99 [facility] Serum or plasma alanine curry otransferase (ALT) measurementOrdered By: Elisa Maldonado on 10-13-2024 ALT [Catalytic activity/Vol] 28 U/L <35 [facility] Serum or plasma albumin emily urement (mass/volume)Ordered By: Elisa Maldonado on 10-13-2024 Albumin [Mass/Vol] 3.9 g/dL 3.4-4.8 [facility] Serum or plasma albumin/glob ulin mass ratioOrdered By: Elisa Maldonado on 10-13-2024 Albumin/Globulin [Mass ratio] 1.0 {ratio} 0.9-2.4 [facility] Serum or plasma alkaline mago sphatase measurementOrdered By: Elisa Maldonado on 10-13-2024 ALP [Catalytic activity/Vol] 81 U/L 35-104 [facility] Serum or plasma calcium emily urement (mass/volume)Ordered By: Elisa Maldonado on 10-13-2024 Calcium [Mass/Vol] 10.8 mg/dL 7.6-11.0 [facility] Serum or plasma urea nitroge n measurement (mass/volume)Ordered By: Elisa Maldonado on 10-13-2024 Urea nitrogen [Mass/Vol] 15 mg/dL 4-19 [facility] Sodium levelOrdered By: Elisa Maldonado on 10-13-2024 Sodium [Moles/Vol] 138 mmol/L 133-145 [facility] Total proteinOrdered By: Clif Maldonado on 10-13-2024 Protein [Mass/Vol] 7.8 g/dL 5.9-8.4 [facility] White blood cell (WBC) count Ordered By: Elisa Maldonado on 10-13-2024 WBC (Bld) [#/Vol] 10.3 10*3/uL 4.4-11.0 [facility] Serum or plasma primidone me asurement (mass/volume)Ordered By: Elisa Maldonado on 10-09-2024 Primidone [Mass/Vol] 5.4 ug/mL 5.0-12.0 [facility] Comment on above: Detection Limit = 2. 5 <2.5 indicates None Detected [id number] 10-06-2024 [facility] Misc. COMMENT Normal . [facility] Comment on above: Order Comment: 120-1 Result Comment: Test Ordered: [id number] Lacosamide Test(s) 964505-Dvkaavpnvi was developed and its performance characteristics determined by [employer]. It has not been cleared or approved by the Food and Drug Administration. Lacosamide 6.3 ug/mL [facility] Reference Range: 5.0-10.0 Limit of Detection 0.5 Mean plasma concentrations following maintenance dose 200 mg/day 4.99 +/- 2.51 ug/mL 400 mg/day 9.35 +/- 4.22 ug/mL 600 mg/day 12.46 +/- 5.60 ug/mL Performed at: [facility] - [facility] [address] [id number] Assistant [employer]S Rowing Coach: Daniel Heredia MD, Phone: [phone] Performed at: - [facility] [address] [id number] Assistant [employer]ing Coach: Crescencio Metcalf PhD, Phone: [phone] Performed By: #### L 100.0500, L500.4050 #### [facility] [address] [place], [place], [address] Absolute lymphocyte countOrd ered By: Elisa Maldonado on 10-01-2024 Lymphocytes Auto (Unsp spec) [#/Vol] 3.00 10*3/uL 0.83-4.51 [facility] Absolute neutrophil countOrd ered By: Elisa Maldonado on 10-01-2024 Neutrophils (Bld) [#/Vol] 4.8 10*3/uL 2.0-7.7 [facility] Anion gap in Serum or Plasma Ordered By: Elisa Maldonado on 10-01-2024 Anion gap [Moles/Vol] 12 mmol/L 5-15 [facility] Automated lymphocyte count a s percentage of total leukocytesOrdered By: Elisa Maldonado on 10-01-2024 Lymphocytes/100 WBC Auto (Unsp spec) 32.3 % - [facility] BUN/creatinine ratioOrdered By: Elisa Maldonado on 10-01-2024 Urea nitrogen/Creatinine [Mass ratio] 17.2 mg/mg 10-20 [facility] Basophil percentageOrdered B y: Elisa Maldonado on 10-01-2024 Basophils/100 WBC (Bld) 0.8 % 0-1 [facility] Bilirubin, totalOrdered By: Elisa Maldonado on 10-01-2024 Bilirubin [Mass/Vol] 0.20 mg/dL 0.00-1.30 [facility] CBC W/Diff, Automatedon 09-13 Absolute Lymph 3.00 X10 3/uL Normal 0.83-4.51 [facility] Comment on above: Order Comment: 120-1 Performed By: #### L 100.0500, L500.4050 #### [facility] [address] [place], [address] Absolute Neut 4.8 X10 3/uL Normal 2.0-7.7 [facility] Comment on above: Order Comment: 120-1 Performed By: #### L 100.0500, L500.4050 #### [facility] [address] [place], [address] Basophils/100 WBC (Bld) 0.8 % Normal 0-1 [facility] Comment on above: Order Comment: 120-1 Performed By: #### L 100.0500, L500.4050 #### [facility] [address] [place], [address] Eosinophils/100 WBC (Bld) 2.8 % Normal 0-5 [facility] Comment on above: Order Comment: 120-1 Performed By: #### L 100.0500, L500.4050 #### [facility] [address] [place], [address] Erythrocyte distribution width (RBC) [Ratio] 15.4 % High 11.6-14.6 [facility] Comment on above: Order Comment: 120-1 Performed By: #### L 100.0500, L500.4050 #### [facility] [address] [place], [address] Hematocrit (Bld) [Volume fraction] 33.1 % Low 37-47 [facility] Comment on above: Order Comment: 120-1 Performed By: #### L 100.0500, L500.4050 #### [facility] [address] [place], [address] Hemoglobin (Bld) [Mass/Vol] 10.7 g/dL Low 12.0-15.0 [facility] Comment on above: Order Comment: 120-1 Performed By: #### L 100.0500, L500.4050 #### [facility] [address] [place], [address] IG% 0.600 Normal 0.0-0.9 [facility] Comment on above: Order Comment: 120-1 Result Comment: IG% - Immature Granulocytes (promyelocytes, myelocytes and metamyelocytes) > 1% indicates that a LEFT SHIFT is Present. Performed By: #### L 100.0500, L500.4050 #### [facility] [address] [place], [address] Lymphocytes/100 WBC (Bld) 32.3 % Normal 19-41 [facility] Comment on above: Order Comment: 120-1 Performed By: #### L 100.0500, L500.4050 #### [facility] [address] [place], [address] MCH (RBC) [Entitic mass] 26.6 pg Low 27.0-32.0 [facility] Comment on above: Order Comment: 120-1 Performed By: #### L 100.0500, L500.4050 #### [facility] [address] [place], [address] MCHC (RBC) [Mass/Vol] 32.3 g/dL Normal 32-36 [facility] Comment on above: Order Comment: 120-1 Performed By: #### L 100.0500, L500.4050 #### [facility] [address] [place], [address] MCV (RBC) [Entitic vol] 82.3 fL Normal 81-99 [facility] Comment on above: Order Comment: 120-1 Performed By: #### L 100.0500, [id number] #### [facility] [address] [place], [address] Monocytes/100 WBC (Bld) 12.3 % High 0-10 [facility] Comment on above: Order Comment: 120-1 Performed By: #### L 100.0500, L500.4050 #### [facility] [address] [place], [address] Neutrophils/100 WBC (Bld) 51.2 % Normal 47-70 [facility] Comment on above: Order Comment: 120-1 Performed By: #### L 100.0500, L500.4050 #### [facility] [address] [place], [address] Nucleated RBC (Bld) [#/Vol] 0 10*3/uL Normal 0-5 [facility] Comment on above: Order Comment: 120-1 Performed By: #### L 100.0500, L500.4050 #### [facility] [address] [place], [address] Platelet mean volume (Bld) [Entitic vol] 10.0 fL Normal 6.2-12.0 [facility] Comment on above: Order Comment: 120-1 Performed By: #### L 100.0500, L500.4050 #### [facility] [address] [place], [address] Platelets (Bld) [#/Vol] 295 10*3/uL Normal 150-450 [facility] Comment on above: Order Comment: 120-1 Performed By: #### L 100.0500, L500.4050 #### [facility] [address] [place], [address] RBC (Bld) [#/Vol] 4.02 10*6/uL Low 4.2-5.4 [facility] Comment on above: Order Comment: 120-1 Performed By: #### L 100.0500, [id number] #### [facility] [address] [place], [address] RDW SD 45.3 fl High 35.1-43.9 [facility] Comment on above: Order Comment: 120-1 Performed By: #### L 100.0500, L500.4050 #### [facility] [address] [place], [address] WBC (Bld) [#/Vol] 9.3 10*3/uL Normal 4.4-11.0 [facility] Comment on above: Order Comment: 120-1 Performed By: #### L 100.0500, L500.4050 #### [facility] [address] [place], [address] Carbon dioxide, total [Moles /volume] in Central venous bloodOrdered By: Elisa Maldonado on 10-01-2024 CO2 [Moles/Vol] 26.0 mmol/L 21.0-32.0 [facility] Chloride assayOrdered By: Lanette Maldonado on 10-01-2024 Chloride [Moles/Vol] 101 mmol/L 98-108 [facility] Comprehensive Metabolic Prof ilon 10-01-2024 Albumin [Mass/Vol] 4.0 g/dL Normal 3.4-4.8 [facility] Comment on above: Order Comment: 120-1 Performed By: #### L 100.0500, L500.4050 #### [facility] [address], [address] Albumin/Globulin [Mass ratio] 1.1 {ratio} Normal 0.9-2.4 [facility] Comment on above: Order Comment: 120-1 Performed By: #### L 100.0500, L500.4050 #### [facility] [address] [place], [address] ALK PHOS 83 U/L Normal 35-104 [facility] Comment on above: Order Comment: 120-1 Performed By: #### L 100.0500, L500.4050 #### [facility] [address] [place], [address] ALT [Catalytic activity/Vol] 30 U/L Normal <=34 [facility] Comment on above: Order Comment: 120-1 Performed By: #### L 100.0500, L500.4050 #### [facility] [address] [place], [address] AST [Catalytic activity/Vol] 53 U/L High <=31 [facility] Comment on above: Order Comment: 120-1 Performed By: #### L 100.0500, L500.4050 #### [facility] [address] [place], [address] Bilirubin [Mass/Vol] 0.20 mg/dL Normal 0.00-1.30 [facility] Comment on above: Order Comment: 120-1 Performed By: #### L 100.0500, L500.4050 #### [facility] [address] [place], [address] BUN/CRE 17.2 RATIO Normal 10-20 [facility] Comment on above: Order Comment: 120-1 Performed By: #### L 100.0500, L500.4050 #### [facility] [address] [place], [address] Calcium [Mass/Vol] 10.4 mg/dL Normal 7.6-11.0 [facility] Comment on above: Order Comment: 120-1 Performed By: #### L 100.0500, L500.4050 #### [facility] [address] [place], [address] Chloride [Moles/Vol] 101 mmol/L Normal 98-108 [facility] Comment on above: Order Comment: 120-1 Performed By: #### L 100.0500, L500.4050 #### [facility] [address] [place], [address] CO2 [Moles/Vol] 26.0 mmol/L Normal 21.0-32.0 [facility] Comment on above: Order Comment: 120-1 Performed By: #### L 100.0500, L500.4050 #### [facility] [address] [place], [address] Creatinine [Mass/Vol] 0.77 mg/dL Normal 0.70-1.20 [facility] Comment on above: Order Comment: 120-1 Performed By: #### L 100.0500, L500.4050 #### [facility] [address] [place], [address] GAP 12 Normal 5-15 [facility] Comment on above: Order Comment: 120-1 Performed By: #### L 100.0500, L500.4050 #### [facility] [address] [place], [address] GFR/1.73 sq M.predicted among non-blacks MDRD (S/P/Bld) [Vol rate/Area] 84 mL/min/{1.73_m2} Normal >60 [facility] Comment on above: Order Comment: 120-1 Result Comment: mL/m in/1.73m2 CKD-EPI Creatinine Equation (2020) Performed By: #### L 100.0500, L500.4050 #### [facility] [address] [place], [address] Globulin (S) [Mass/Vol] 3.7 g/dL Normal 2.2-4.2 [facility] Comment on above: Order Comment: 120-1 Performed By: #### L 100.0500, L500.4050 #### [facility] [address] [place], [address] Glucose [Mass/Vol] 111 mg/dL High 70-99 [facility] Comment on above: Order Comment: 120-1 Performed By: #### L 100.0500, [id number] #### [facility] [address] [place], [address] Potassium [Moles/Vol] 4.5 mmol/L Normal 3.3-5.1 [facility] Comment on above: Order Comment: 120-1 Performed By: #### L 100.0500, L500.4050 #### [facility] [address] [place], [address] Sodium [Moles/Vol] 138 mmol/L Normal 133-145 [facility] Comment on above: Order Comment: 120-1 Performed By: #### L 100.0500, L500.4050 #### [facility] [address] [place], [address] T PROT 7.7 g/dL Normal 5.9-8.4 [facility] Comment on above: Order Comment: 120-1 Performed By: #### L 100.0500, L500.4050 #### [facility] [address] [place], [address] Urea nitrogen [Mass/Vol] 13 mg/dL Normal 4-19 [facility] Comment on above: Order Comment: 120-1 Performed By: #### L 100.0500, L500.4050 #### [facility] [address] [place], [address] Eosinophil percentageOrdered By: Elisa Maldonado on 10-01-2024 Eosinophils/100 WBC (Bld) 2.8 % 0-5 [facility] Erythrocyte distribution wid th ratioOrdered By: Elisa Maldonado on 10-01-2024 Erythrocyte distribution width (RBC) [Ratio] 15.4 % High 11.6-14.6 [facility] Erythrocyte distribution wid th standard deviationOrdered By: Elisa Maldonado on 10-01-2024 Erythrocyte distribution width (RBC) [Ratio] 45.3 fl High 35.1-43.9 [facility] Glomerular filtration rate ( GFR) estimation/1.73 sq m using serum, plasma, or whole bOrdered By: Elisa Maldonado on 10-01-2024 GFR/1.73 sq M.predicted among non-blacks MDRD (S/P/Bld) [Vol rate/Area] 84 mL/min/{1.73_m2} >60 [facility] Comment on above: mL/min/1.73m2 CKD-EP I Creatinine Equation (2020) Hematocrit Auto (Bld) [Volum e fraction]Ordered By: Elisa Maldonado on 10-01-2024 Hematocrit (Bld) [Volume fraction] 33.1 % Low 37-47 [facility] Hemoglobin measurementOrdere d By: Elisa Maldonado on 10-01-2024 Hemoglobin (Bld) [Mass/Vol] 10.7 g/dL Low 12.0-15.0 [facility] Immature granulocytes/100 WB C Auto (Bld)Ordered By: Elisa Maldonado on 10-01-2024 Immature granulocytes/100 WBC (Bld) 0.600 % 0.0-0.9 [facility] Comment on above: IG% - Immature Granu locytes (promyelocytes, myelocytes and metamyelocytes) > 1% indicates that a LEFT SHIFT is Present. Laboratory - Chemistry and C hemistry - challengeOrdered By: Elisa Maldonado on 10-01-2024 AST [Catalytic activity/Vol] 53 U/L High <32 [facility] MCV (mean corpuscular volume ) determinationOrdered By: Elisa Maldonado on 10-01-2024 MCV (RBC) [Entitic vol] 82.3 fL 81-99 [facility] Mean corpuscular hemoglobin (MCH) determinationOrdered By: Elisa Maldonado on 10-01-2024 MCH (RBC) [Entitic mass] 26.6 pg Low 27.0-32.0 [facility] Mean corpuscular hemoglobin concentration (MCHC) determinationOrdered By: Elisa Maldonado on 10-01-2024 MCHC (RBC) [Mass/Vol] 32.3 g/dL 32-36 [facility] Mean platelet volume determi nationOrdered By: Elisa Maldonado on 10-01-2024 Platelet mean volume (Bld) [Entitic vol] 10.0 fL 6.2-12.0 [facility] Monocyte percentageOrdered B y: Elisa Maldonado on 10-01-2024 Monocytes/100 WBC (Bld) 12.3 % High 0-10 [facility] Neutrophil percentageOrdered By: Elisa Maldonado on 10-01-2024 Neutrophils/100 WBC (Bld) 51.2 % 47-70 [facility] Nucleated red blood cell per centageOrdered By: Elisa Maldonado on 10-01-2024 Nucleated RBC/100 WBC (Bld) [Ratio] 0 % 0-5 [facility] Platelet countOrdered By: Lanette Maldonado on 10-01-2024 Platelets (Bld) [#/Vol] 295 10*3/uL 150-450 [facility] Potassium measurement (mass/ volume)Ordered By: Elisa Maldonado on 10-01-2024 Potassium (Unsp spec) [Mass/Vol] 4.5 mmol/L 3.3-5.1 [facility] RBC Auto (Bld) [#/Vol]Ordere d By: Elisa Maldonado on 10-01-2024 RBC (Bld) [#/Vol] 4.02 10*6/uL Low 4.2-5.4 [facility] Serum creatinine measurement (mass/volume)Ordered By: Elisa Maldonado on 10-01-2024 Creatinine [Mass/Vol] 0.77 mg/dL 0.70-1.20 [facility] Serum globulin measurementOr dered By: Elisa Maldonado on 10-01-2024 Globulin (S) [Mass/Vol] 3.7 g/dL 2.2-4.2 [facility] Serum glucose measurement (m ass/volume)Ordered By: Elisa Maldonado on 10-01-2024 Glucose [Mass/Vol] 111 mg/dL High 70-99 [facility] Serum or plasma alanine curry otransferase (ALT) measurementOrdered By: Elisa Maldonado on 10-01-2024 ALT [Catalytic activity/Vol] 30 U/L <35 [facility] Serum or plasma albumin emily urement (mass/volume)Ordered By: Elisa Maldonado on 10-01-2024 Albumin [Mass/Vol] 4.0 g/dL 3.4-4.8 [facility] Serum or plasma albumin/glob ulin mass ratioOrdered By: Elisa Maldonado on 10-01-2024 Albumin/Globulin [Mass ratio] 1.1 {ratio} 0.9-2.4 [facility] Serum or plasma alkaline mago sphatase measurementOrdered By: Elisa Maldonado on 10-01-2024 ALP [Catalytic activity/Vol] 83 U/L 35-104 [facility] Serum or plasma calcium emily urement (mass/volume)Ordered By: Elisa Maldonado on 10-01-2024 Calcium [Mass/Vol] 10.4 mg/dL 7.6-11.0 [facility] Serum or plasma urea nitroge n measurement (mass/volume)Ordered By: Elisa Maldonado on 10-01-2024 Urea nitrogen [Mass/Vol] 13 mg/dL -19 [facility] Serum or plasma valproate me asurement (mass/volume)Ordered By: Elisa Maldonado on 10-01-2024 Valproate [Mass/Vol] 77 ug/mL 50-100 [facility] Comment on above: Valproic Acid concen trations >100 ug/mL are potentially toxic. Sodium levelOrdered By: Elisa Maldonado on 10-01-2024 Sodium [Moles/Vol] 138 mmol/L 133-145 [facility] Total proteinOrdered By: Clif Maldonado on 10-01-2024 Protein [Mass/Vol] 7.7 g/dL 5.9-8.4 [facility] Valproic Acid (Depakene) Lev alpa 10-01-2024 VALPROIC ACID 77 ug/mL Normal 50-100 [facility] Comment on above: Order Comment: 120-1 Result Comment: Valp roic Acid concentrations >100 ug/mL are potentially toxic. Performed By: #### L 100.0500, L500.4050 #### [facility] [address] [place], [place], [address] White blood cell (WBC) count Ordered By: Elisa Maldonado on 10-01-2024 WBC (Bld) [#/Vol] 9.3 10*3/uL 4.4-11.0 [facility] Anion gap in Serum or Plasma Ordered By: Elisa Maldonado on 08-18-2024 Anion gap [Moles/Vol] 13 mmol/L 5-15 [facility] Automated blood erythrocyte countOrdered By: Elisa Maldonado on 08-18-2024 RBC (Bld) [#/Vol] 4.09 10*6/uL Low 4.2-5.4 [facility] Comment on above: Order Comment: 120.1 Performed By: #### L 100.0500, L500.4050 #### [facility] [address] [place], [address] Automated blood hematocrit ( percentage)Ordered By: Elisa Maldonado on 08-18-2024 Hematocrit (Bld) [Volume fraction] 33.5 % Low 37-47 [facility] Comment on above: Order Comment: 120.1 Performed By: #### L 100.0500, L500.4050 #### [facility] [address] [place], [address] BUN/creatinine ratioOrdered By: Elisa Maldonado on 08-18-2024 Urea nitrogen/Creatinine [Mass ratio] 20.2 mg/mg High 10-20 [facility] Bilirubin, totalOrdered By: Elisa Maldonado on 08-18-2024 Bilirubin [Mass/Vol] 0.23 mg/dL Normal 0.00-1.30 [facility] Comment on above: Order Comment: 120.1 Performed By: #### L 100.0500, L500.4050 #### [facility] [address] [place], [address] CBC-Complete Blood Cnt No Di ffon 08-18-2024 RDW SD 44.9 fl High 35.1-43.9 [facility] Comment on above: Order Comment: 120.1 Performed By: #### L 100.0500, L500.4050 #### [facility] [address] [place], [address] Carbon dioxide, total [Moles /volume] in Central venous bloodOrdered By: Elisa Maldonado on 08-18-2024 CO2 [Moles/Vol] 24.0 mmol/L Normal 21.0-32.0 [facility] Comment on above: Order Comment: 120.1 Performed By: #### L 100.0500, L500.4050 #### [facility] [address] [place], [address] Chloride assayOrdered By: Lanette Maldonado on 08-18-2024 Chloride [Moles/Vol] 101 mmol/L Normal 98-108 [facility] Comment on above: Order Comment: 120.1 Performed By: #### L 100.0500, L500.4050 #### [facility] [address] [place], [address] Comprehensive Metabolic Prof ilon 08-18-2024 ALK PHOS 81 U/L Normal 35-104 [facility] Comment on above: Order Comment: 120.1 Performed By: #### L 100.0500, L500.4050 #### [facility] [address] [place], [address] BUN/CRE 20.2 RATIO High 10-20 [facility] Comment on above: Order Comment: 120.1 Performed By: #### L 100.0500, L500.4050 #### [facility] [address] [place], [address] GAP 13 Normal 5-15 [facility] Comment on above: Order Comment: 120.1 Performed By: #### L 100.0500, L500.4050 #### [facility] [address] [place], [address] Potassium [Moles/Vol] 4.0 mmol/L Normal 3.3-5.1 [facility] Comment on above: Order Comment: 120.1 Performed By: #### L 100.0500, L500.4050 #### [facility] [address] [place], [address] T PROT 7.7 g/dL Normal 5.9-8.4 [facility] Comment on above: Order Comment: 120.1 Performed By: #### L 100.0500, L500.4050 #### [facility] [address] [place], [address] Comprehensive Metabolic Prof ilOrdered By: Elisa Maldonado on 08-18-2024 AST [Catalytic activity/Vol] 52 U/L High <=31 [facility] Comment on above: Order Comment: 120.1 Performed By: #### L 100.0500, L500.4050 #### [facility] [address] [place], [place], [address] Erythrocyte distribution wid th ratioOrdered By: Elisa Maldonado on 08-18-2024 Erythrocyte distribution width (RBC) [Ratio] 15.3 % High 11.6-14.6 [facility] Comment on above: Order Comment: 120.1 Performed By: #### L 100.0500, L500.4050 #### [facility] [address] [place], [address] Erythrocyte distribution wid th standard deviationOrdered By: Elisa Maldonado on 08-18-2024 Erythrocyte distribution width (RBC) [Ratio] 44.9 fl High 35.1-43.9 [facility] Glomerular filtration rate ( GFR) estimation/1.73 sq m using serum, plasma, or whole bOrdered By: Elisa Maldonado on 08-18-2024 GFR/1.73 sq M.predicted among non-blacks MDRD (S/P/Bld) [Vol rate/Area] 81 mL/min/{1.73_m2} Normal >60 [facility] Comment on above: mL/min/1.73m2 CKD-EP I Creatinine Equation (2020) Order Comment: 120.1 Result Comment: mL/m in/1.73m2 CKD-EPI Creatinine Equation (2020) Performed By: #### L 100.0500, L500.4050 #### [facility] [address], [address] Hemoglobin measurementOrdere d By: Elisa Maldonado on 08-18-2024 Hemoglobin (Bld) [Mass/Vol] 10.8 g/dL Low 12.0-15.0 [facility] Comment on above: Order Comment: 120.1 Performed By: #### L 100.0500, L500.4050 #### [facility] [address] [place], [place], [id number] MCV (mean corpuscular volume ) determinationOrdered By: Elisa Maldonado on 08-18-2024 MCV (RBC) [Entitic vol] 81.9 fL Normal 81-99 [facility] Comment on above: Order Comment: 120.1 Performed By: #### L 100.0500, L500.4050 #### [facility] [address] [place], [address] Mean corpuscular hemoglobin (MCH) determinationOrdered By: Elisa Maldonado on 08-18-2024 MCH (RBC) [Entitic mass] 26.4 pg Low 27.0-32.0 [facility] Comment on above: Order Comment: 120.1 Performed By: #### L 100.0500, L500.4050 #### [facility] [address] [place], [address] Mean corpuscular hemoglobin concentration (MCHC) determinationOrdered By: Elisa Maldonado on 08-18-2024 MCHC (RBC) [Mass/Vol] 32.2 g/dL Normal 32-36 [facility] Comment on above: Order Comment: 120.1 Performed By: #### L 100.0500, L500.4050 #### [facility] [address] [place], [address] Mean platelet volume determi nationOrdered By: Elisa Maldonado on 08-18-2024 Platelet mean volume (Bld) [Entitic vol] 10.1 fL Normal 6.2-12.0 [facility] Comment on above: Order Comment: 120.1 Performed By: #### L 100.0500, L500.4050 #### [facility] [address] [place], [address] Platelet countOrdered By: Lanette Maldonado on 08-18-2024 Platelets (Bld) [#/Vol] 295 10*3/uL Normal 150-450 [facility] Comment on above: Order Comment: 120.1 Performed By: #### L 100.0500, L500.4050 #### [facility] [address] [place], [address] Potassium measurement (mass/ volume)Ordered By: Elisa Maldonado on 08-18-2024 Potassium (Unsp spec) [Mass/Vol] 4.0 mmol/L 3.3-5.1 [facility] Serum creatinine measurement (mass/volume)Ordered By: Elisa Maldonado on 08-18-2024 Creatinine [Mass/Vol] 0.80 mg/dL Normal 0.70-1.20 [facility] Comment on above: Order Comment: 120.1 Performed By: #### L 100.0500, L500.4050 #### [facility] [address] [place], [address] Serum globulin measurementOr dered By: Elisa Maldonado on 08-18-2024 Globulin (S) [Mass/Vol] 3.9 g/dL Normal 2.2-4.2 [facility] Comment on above: Order Comment: 120.1 Performed By: #### L 100.0500, L500.4050 #### [facility] [address] [place], [address] Serum glucose measurement (m ass/volume)Ordered By: Elisa Maldonado on 08-18-2024 Glucose [Mass/Vol] 184 mg/dL High 70-99 [facility] Comment on above: Order Comment: 120.1 Performed By: #### L 100.0500, L500.4050 #### [facility] [address] [place], [address] Serum or plasma alanine curry otransferase (ALT) measurementOrdered By: Elisa Maldonado on 08-18-2024 ALT [Catalytic activity/Vol] 26 U/L Normal <=34 [facility] Comment on above: Order Comment: 120.1 Performed By: #### L 100.0500, L500.4050 #### [facility] [address] [place], [address] Serum or plasma albumin emily urement (mass/volume)Ordered By: Elisa Maldonado on 08-18-2024 Albumin [Mass/Vol] 3.7 g/dL Normal 3.4-4.8 [facility] Comment on above: Order Comment: 120.1 Performed By: #### L 100.0500, L500.4050 #### [facility] [address] [place], [address] Serum or plasma albumin/glob ulin mass ratioOrdered By: Elisa Maldonado on 08-18-2024 Albumin/Globulin [Mass ratio] 1.0 {ratio} Normal 0.9-2.4 [facility] Comment on above: Order Comment: 120.1 Performed By: #### L 100.0500, L500.4050 #### [facility] [address] [place], [address] Serum or plasma alkaline mago sphatase measurementOrdered By: Elisa Maldonado on 08-18-2024 ALP [Catalytic activity/Vol] 81 U/L 35-104 [facility] Serum or plasma calcium emily urement (mass/volume)Ordered By: Elisa Maldonado on 08-18-2024 Calcium [Mass/Vol] 10.4 mg/dL Normal 7.6-11.0 [facility] Comment on above: Order Comment: 120.1 Performed By: #### L 100.0500, L500.4050 #### [facility] [address] [place], [address] Serum or plasma urea nitroge n measurement (mass/volume)Ordered By: Elisa Maldonado on 08-18-2024 Urea nitrogen [Mass/Vol] 16 mg/dL Normal 4-19 [facility] Comment on above: Order Comment: 120.1 Performed By: #### L 100.0500, L500.4050 #### [facility] [address] [place], [address] Sodium levelOrdered By: Elisa Maldonado on 08-18-2024 Sodium [Moles/Vol] 138 mmol/L Normal 133-145 [facility] Comment on above: Order Comment: 120.1 Performed By: #### L 100.0500, L500.4050 #### [facility] [address] [place], [address] Total proteinOrdered By: Clif Maldonado on 08-18-2024 Protein [Mass/Vol] 7.7 g/dL 5.9-8.4 [facility] White blood cell (WBC) count Ordered By: Elisa Maldonado on 08-18-2024 WBC (Bld) [#/Vol] 9.2 10*3/uL Normal 4.4-11.0 [facility] Comment on above: Order Comment: 120.1 Performed By: #### L 100.0500, L500.4050 #### [facility] [address] [place], [address] Absolute lymphocyte countOrd ered By: Elisa Maldonado on 07-20-2024 Lymphocytes Auto (Unsp spec) [#/Vol] 3.36 10*3/uL 0.83-4.51 [facility] Absolute neutrophil countOrd ered By: Elisa Maldonado on 07-20-2024 Neutrophils (Bld) [#/Vol] 5.5 10*3/uL 2.0-7.7 [facility] Anion gap in Serum or Plasma Ordered By: Elisa Maldonado on 07-20-2024 Anion gap [Moles/Vol] 13 mmol/L 5-15 [facility] Automated lymphocyte count a s percentage of total leukocytesOrdered By: Elisa Maldonado on 07-20-2024 Lymphocytes/100 WBC Auto (Unsp spec) 33.3 % 19-41 [facility] BUN/creatinine ratioOrdered By: Elisa Maldonado on 07-20-2024 Urea nitrogen/Creatinine [Mass ratio] 26.1 mg/mg High 10-20 [facility] Basophil percentageOrdered B y: Elisa Maldonado on 07-20-2024 Basophils/100 WBC (Bld) 0.8 % 0-1 [facility] CBC W/Diff, Automatedon -0 Absolute Lymph 3.36 X10 3/uL Normal 0.83-4.51 [facility] Comment on above: Order Comment: 120.1 Performed By: #### L 100.0500, L500.4050 #### [facility] [address] [place], [address] Absolute Neut 5.5 X10 3/uL Normal 2.0-7.7 [facility] Comment on above: Order Comment: 120.1 Performed By: #### L 100.0500, [id number] #### [facility] [address] [place], [address] Basophils/100 WBC (Bld) 0.8 % Normal 0-1 [facility] Comment on above: Order Comment: 120.1 Performed By: #### L 100.0500, [id number] #### [facility] [address] [place], [address] Eosinophils/100 WBC (Bld) 2.8 % Normal 0-5 [facility] Comment on above: Order Comment: 120.1 Performed By: #### L 100.0500, [id number] #### [facility] [address] [place], [address] Erythrocyte distribution width (RBC) [Ratio] 15.2 % High 11.6-14.6 [facility] Comment on above: Order Comment: 120.1 Performed By: #### L 100.0500, [id number] #### [facility] [address] [place], [address] Hematocrit (Bld) [Volume fraction] 38.4 % Normal 37-47 [facility] Comment on above: Order Comment: 120.1 Performed By: #### L 100.0500, [id number] #### [facility] [address] [place], [address] Hemoglobin (Bld) [Mass/Vol] 12.3 g/dL Normal 12.0-15.0 [facility] Comment on above: Order Comment: 120.1 Performed By: #### L 100.0500, [id number] #### [facility] [address] [place], [address] IG% 0.500 Normal 0.0-0.9 [facility] Comment on above: Order Comment: 120.1 Result Comment: IG% - Immature Granulocytes (promyelocytes, myelocytes and metamyelocytes) > 1% indicates that a LEFT SHIFT is Present. Performed By: #### L 100.0500, L500.4050 #### [facility] [address] [place], [address] Lymphocytes/100 WBC (Bld) 33.3 % Normal 19-41 [facility] Comment on above: Order Comment: 120.1 Performed By: #### L 100.0500, [id number] #### [facility] [address] [place], [address] MCH (RBC) [Entitic mass] 26.6 pg Low 27.0-32.0 [facility] Comment on above: Order Comment: 120.1 Performed By: #### L 100.0500, [id number] #### [facility] [address] [place], [address] MCHC (RBC) [Mass/Vol] 32.0 g/dL Normal 32-36 [facility] Comment on above: Order Comment: 120.1 Performed By: #### L 100.0500, [id number] #### [facility] [address] [place], [address] MCV (RBC) [Entitic vol] 83.1 fL Normal 81-99 [facility] Comment on above: Order Comment: 120.1 Performed By: #### L 100.0500, [id number] #### [facility] [address] [place], [address] Monocytes/100 WBC (Bld) 7.9 % Normal 0-10 [facility] Comment on above: Order Comment: 120.1 Performed By: #### L 100.0500, [id number] #### [facility] [address] [place], [address] Neutrophils/100 WBC (Bld) 54.7 % Normal 47-70 [facility] Comment on above: Order Comment: 120.1 Performed By: #### L 100.0500, L500.4050 #### [facility] [address] [place], [address] Nucleated RBC (Bld) [#/Vol] 0 10*3/uL Normal 0-5 [facility] Comment on above: Order Comment: 120.1 Performed By: #### L 100.0500, L500.4050 #### [facility] [address] [place], [address] Platelet mean volume (Bld) [Entitic vol] 10.1 fL Normal 6.2-12.0 [facility] Comment on above: Order Comment: 120.1 Performed By: #### L 100.0500, L500.4050 #### [facility] [address] [place], [address] Platelets (Bld) [#/Vol] 319 10*3/uL Normal 150-450 [facility] Comment on above: Order Comment: 120.1 Performed By: #### L 100.0500, L500.4050 #### [facility] [address] [place], [address] RBC (Bld) [#/Vol] 4.62 10*6/uL Normal 4.2-5.4 [facility] Comment on above: Order Comment: 120.1 Performed By: #### L 100.0500, [id number] #### [facility] [address] [place], [address] RDW SD 45.8 fl High 35.1-43.9 [facility] Comment on above: Order Comment: 120.1 Performed By: #### L 100.0500, L500.4050 #### [facility] [address] [place], [address] WBC (Bld) [#/Vol] 10.1 10*3/uL Normal 4.4-11.0 [facility] Comment on above: Order Comment: 120.1 Performed By: #### L 100.0500, L500.4050 #### [facility] [address] [place], [place], [address] Calculated total iron bindin g capacityOrdered By: Elisa Maldonado on 07-20-2024 Total Iron Binding Capacity 427 ug/dL 250-450 [facility] Carbon dioxide, total [Moles /volume] in Central venous bloodOrdered By: Elisa Maldonado on 07-20-2024 CO2 [Moles/Vol] 24.2 mmol/L 21.0-32.0 [facility] Chloride assayOrdered By: Lanette Maldonado on 07-20-2024 Chloride [Moles/Vol] 102 mmol/L 98-108 [facility] Creatinine Unsp time (U) [Ma ss/Vol]Ordered By: Elisa Maldonado on 07-20-2024 Creatinine (U) [Mass/Vol] 89.80 mg/dL 28.00-217.00 [facility] Eosinophil percentageOrdered By: Elisa Maldonado on 07-20-2024 Eosinophils/100 WBC (Bld) 2.8 % 0-5 [facility] Erythrocyte distribution wid th (RBC) [Ratio]Ordered By: Elisa Maldonado on 07-20-2024 Erythrocyte distribution width (RBC) [Entitic vol] 45.8 fL High 35.1-43.9 [facility] Erythrocyte distribution wid th ratioOrdered By: Elisa Maldonado on 07-20-2024 Erythrocyte distribution width (RBC) [Ratio] 15.2 % High 11.6-14.6 [facility] Erythrocyte distribution wid th standard deviationOrdered By: Elisa Maldonado on 07-20-2024 Erythrocyte distribution width (RBC) [Ratio] 45.8 fl High 35.1-43.9 [facility] Ferritinon 07-20-2024 Ferritin [Mass/Vol] 55 ng/mL Normal 22-378 [facility] Comment on above: Order Comment: 120.1 Performed By: #### L 100.0500, L500.4050 #### [facility] [address] [place], [address] GFR/1.73 sq M.predicted kojo g non-blacks MDRD (S/P/Bld) [Vol rate/Area]Ordered By: Elisa Maldonado on 07-20-2024 Estimated GFR (MDRD) Non-Af Amer 76 >60 [facility] Comment on above: mL/min/1.73m2 CKD-EP I Creatinine Equation (2020) Glomerular filtration rate ( GFR) estimation/1.73 sq m using serum, plasma, or whole bOrdered By: Elisa Maldonado on 07-20-2024 GFR/1.73 sq M.predicted among non-blacks MDRD (S/P/Bld) [Vol rate/Area] 76 mL/min/{1.73_m2} >60 [facility] Comment on above: mL/min/1.73m2 CKD-EP I Creatinine Equation (2020) Hematocrit Auto (Bld) [Volum e fraction]Ordered By: Elisa Maldonado on 07-20-2024 Hematocrit (Bld) [Volume fraction] 38.4 % 37-47 [facility] Hemoglobin measurementOrdere d By: Elisa Maldonado on 07-20-2024 Hemoglobin (Bld) [Mass/Vol] 12.3 g/dL 12.0-15.0 [facility] Immature granulocytes/100 WB C Auto (Bld)Ordered By: Elisa Maldonado on 07-20-2024 Immature granulocytes/100 WBC (Bld) 0.500 % 0.0-0.9 [facility] Comment on above: IG% - Immature Granu locytes (promyelocytes, myelocytes and metamyelocytes) > 1% indicates that a LEFT SHIFT is Present. Iron (Unsp spec) [Mass/Mass] Ordered By: Elisa Maldonado on 07-20-2024 Iron [Mass/Vol] 52 ug/dL 50-170 [facility] Iron measurement (mass/mass) Ordered By: Elisa Maldonado on 07-20-2024 Iron (Unsp spec) [Mass/Mass] 52 ug/dL 50-170 [facility] Iron saturation [Mass fracti on]Ordered By: Elisa Maldonado on 07-20-2024 Iron Saturation 12.2 % Low 13-59 [facility] Comment on above: Previous reported re sult: 12.0 %Edited by: YONATAN on 07/20/24:1019 AMENDED REPORT 07/20/24 1019 IRON SATURATION previously reported as: 12.0 L % Iron+Iron Binding Capacityon 07-20-2024 Iron [Mass/Vol] 52 ug/dL Normal 50-170 [facility] Comment on above: Order Comment: 120.1 Performed By: #### L 100.0500, L500.4050 #### [facility] [address] [place], [address] UIBC 375 ug/dL Normal 228-428 [facility] Comment on above: Order Comment: 120.1 Performed By: #### L 100.0500, L500.4050 #### [facility] [address] [place], [address] Lymphocytes Auto (Unsp spec) [#/Vol]Ordered By: Elisa Maldonado on 07-20-2024 Lymphocytes (Bld) [#/Vol] 3.36 10*3/uL 0.83-4.51 [facility] Lymphocytes/100 WBC Auto (Un sp spec)Ordered By: Elisa Maldonado on 07-20-2024 Lymphocytes/100 WBC (Bld) 33.3 % 19-41 [facility] MCV (mean corpuscular volume ) determinationOrdered By: Elisa Maldonado on 07-20-2024 MCV (RBC) [Entitic vol] 83.1 fL 81-99 [facility] Mean corpuscular hemoglobin (MCH) determinationOrdered By: Elisa Maldonado on 07-20-2024 MCH (RBC) [Entitic mass] 26.6 pg Low 27.0-32.0 [facility] Mean corpuscular hemoglobin concentration (MCHC) determinationOrdered By: Elisa Maldonado on 07-20-2024 MCHC (RBC) [Mass/Vol] 32.0 g/dL 32-36 [facility] Mean platelet volume determi nationOrdered By: Elisa Maldonado on 07-20-2024 Platelet mean volume (Bld) [Entitic vol] 10.1 fL 6.2-12.0 [facility] Monocyte percentageOrdered B y: Elisa Maldonado on 07-20-2024 Monocytes/100 WBC (Bld) 7.9 % 0-10 [facility] Neutrophil percentageOrdered By: Elisa Maldonado on 07-20-2024 Neutrophils/100 WBC (Bld) 54.7 % 47-70 [facility] No Panel InformationOrdered By: Elisa Maldonado on 07-20-2024 Unsaturated Iron Binding Capacity 375 ug/dL 228-428 [facility] Nucleated red blood cell per centageOrdered By: Elisa Maldonado on 07-20-2024 Nucleated RBC/100 WBC (Bld) [Ratio] 0 % 0-5 [facility] PTH intactOrdered By: Elisa braga on 07-20-2024 Parathyroid Hormone (Intact) 67 pg/mL High [facility] PTHINon 07-20-2024 PTH 67 pg/mL High [facility] Comment on above: Performed By: #### L 100.0500, L500.4050 #### [facility] [address] [place], [address] Platelet countOrdered By: Lanette Maldonado on 07-20-2024 Platelets (Bld) [#/Vol] 319 10*3/uL 150-450 [facility] Potassium (Unsp spec) [Mass/ Vol]Ordered By: Elisa Maldonado on 07-20-2024 Potassium [Moles/Vol] 4.4 mmol/L 3.3-5.1 [facility] Potassium measurement (mass/ volume)Ordered By: Elisa Maldonado on 07-20-2024 Potassium (Unsp spec) [Mass/Vol] 4.4 mmol/L 3.3-5.1 [facility] Protein+Creatinine Ratio,Uri neon 07-20-2024 PROT:CRE RATIO 160 mg/g CRE Normal 0-200 [facility] Comment on above: Performed By: #### L 100.0500, L500.4050 #### [facility] [address] [place], [address] Protein (U) [Mass/Vol] 14.4 mg/dL High 0.0-12.0 [facility] Comment on above: Performed By: #### L 100.0500, L500.4050 #### [facility] [address] [place], [address] UR CREAT 89.80 mg/dL Normal 28.00-217.00 [facility] Comment on above: Performed By: #### L 100.0500, L500.4050 #### [facility] [address] [place], [address] Protein/Creatinine (U) [Mass ratio]Ordered By: Elisa Maldonado on 07-20-2024 Urine Protein/Creatinine Ratio 160 mg/g CRE 0-200 [facility] RBC Auto (Bld) [#/Vol]Ordere d By: Elisa Maldonado on 07-20-2024 RBC (Bld) [#/Vol] 4.62 10*6/uL 4.2-5.4 [facility] Random urine creatinine emily urement (mass/volume)Ordered By: Elisa Maldonado on 07-20-2024 Creatinine Unsp time (U) [Mass/Vol] 89.80 mg/dL 28.00-217.00 [facility] Renal Profileon 07-20-2024 Phosphate [Mass/Vol] 3.1 mg/dL Normal 2.7-4.5 [facility] Comment on above: Order Comment: 120.1 Performed By: #### L 100.0500, L500.4050 #### [facility] [address] [place], [address] Serum creatinine measurement (mass/volume)Ordered By: Elisa Maldonado on 07-20-2024 Creatinine [Mass/Vol] 0.84 mg/dL 0.70-1.20 [facility] Serum glucose measurement (m ass/volume)Ordered By: Elisa Maldonado on 07-20-2024 Glucose [Mass/Vol] 117 mg/dL High 70-99 [facility] Serum or plasma albumin emily urement (mass/volume)Ordered By: Elisa Maldonado on 07-20-2024 Albumin [Mass/Vol] 4.0 g/dL 3.4-4.8 [facility] Serum or plasma calcium emily urement (mass/volume)Ordered By: Elisa Maldonado on 07-20-2024 Calcium [Mass/Vol] 10.8 mg/dL 7.6-11.0 [facility] Serum or plasma ferritin alberto surement (mass/volume)Ordered By: Elisa Maldonado on 07-20-2024 Ferritin [Mass/Vol] 55 ng/mL 22-378 [facility] Serum or plasma iron saturat ion measurement (mass fraction)Ordered By: Elisa Maldonado on 07-20-2024 Iron saturation [Mass fraction] 12.2 % Low 13-59 [facility] Comment on above: Previous reported re sult: 12.0 %Edited by: YONATAN on 07/20/24:1019 AMENDED REPORT 07/20/24 1019 IRON SATURATION previously reported as: 12.0 L % Serum or plasma urea nitroge n measurement (mass/volume)Ordered By: Elisa Maldonado on 07-20-2024 Urea nitrogen [Mass/Vol] 22 mg/dL High 4-19 [facility] Serum or plasma uric acid me asurement (mass/volume)Ordered By: Elisa Maldonado on 07-20-2024 Urate [Mass/Vol] 7.5 mg/dL High 2.6-6.0 [facility] Comment on above: The drugs N-Acetylcy steine and Metamizole may falsely depress this assay. Serum phosphorus measurement Ordered By: Elisa Maldonado on 07-20-2024 Phosphorus Level 3.1 mg/dL 2.7-4.5 [facility] Sodium levelOrdered By: Elisa Maldonado on 07-20-2024 Sodium [Moles/Vol] 138 mmol/L 133-145 [facility] Uric Acidon 07-20-2024 URIC 7.5 mg/dL High 2.6-6.0 [facility] Comment on above: Order Comment: 120-1 Result Comment: The drugs N-Acetylcysteine and Metamizole may falsely depress this assay. Performed By: #### L 100.0500, L500.4050 #### [facility] [address] [place], [place], [address] Urine protein measurement (m ass/volume)Ordered By: Elisa Maldonado on 07-20-2024 Protein (U) [Mass/Vol] 14.4 mg/dL High 0.0-12.0 [facility] Urine protein/creatinine mas s ratioOrdered By: Elisa Maldonado on 07-20-2024 Protein/Creatinine (U) [Mass ratio] 160 mg/g CRE 0-200 [facility] White blood cell (WBC) count Ordered By: Elisa Maldonado on 07-20-2024 WBC (Bld) [#/Vol] 10.1 10*3/uL 4.4-11.0 [facility] Anion gap in Serum or Plasma Ordered By: Elisa Maldonado on 06-22-2024 Anion gap [Moles/Vol] 13 mmol/L 5-15 [facility] BUN/creatinine ratioOrdered By: Elisa Maldonado on 06-22-2024 Urea nitrogen/Creatinine [Mass ratio] 39.3 mg/mg High 10-20 [facility] Bilirubin, totalOrdered By: Elisa Maldonado on 06-22-2024 Bilirubin [Mass/Vol] mg/dL 0.00-1.30 [facility] CBC-Complete Blood Cnt No Di ffon 06-22-2024 Erythrocyte distribution width (RBC) [Ratio] 14.8 % High 11.6-14.6 [facility] Comment on above: Order Comment: 120-1 Performed By: #### L 100.0500, L500.4050 #### [facility] [address] [place], [address] Hematocrit (Bld) [Volume fraction] 31.4 % Low 37-47 [facility] Comment on above: Order Comment: 120-1 Performed By: #### L 100.0500, L500.4050 #### [facility] [address] [place], [address] Hemoglobin (Bld) [Mass/Vol] 10.2 g/dL Low 12.0-15.0 [facility] Comment on above: Order Comment: 120-1 Performed By: #### L 100.0500, L500.4050 #### [facility] [address] [place], [address] MCH (RBC) [Entitic mass] 25.8 pg Low 27.0-32.0 [facility] Comment on above: Order Comment: 120-1 Performed By: #### L 100.0500, L500.4050 #### [facility] [address] [place], [address] MCHC (RBC) [Mass/Vol] 32.5 g/dL Normal 32-36 [facility] Comment on above: Order Comment: 120-1 Performed By: #### L 100.0500, L500.4050 #### [facility] [address] [place], [address] MCV (RBC) [Entitic vol] 79.3 fL Low 81-99 [facility] Comment on above: Order Comment: 120-1 Performed By: #### L 100.0500, L500.4050 #### [facility] [address] [place], [address] Platelet mean volume (Bld) [Entitic vol] 10.4 fL Normal 6.2-12.0 [facility] Comment on above: Order Comment: 120-1 Performed By: #### L 100.0500, L500.4050 #### [facility] [address] [place], [address] Platelets (Bld) [#/Vol] 248 10*3/uL Normal 150-450 [facility] Comment on above: Order Comment: 120-1 Performed By: #### L 100.0500, L500.4050 #### [facility] [address] [place], [address] RBC (Bld) [#/Vol] 3.96 10*6/uL Low 4.2-5.4 [facility] Comment on above: Order Comment: 120-1 Performed By: #### L 100.0500, L500.4050 #### [facility] [address] [place], [address] RDW SD 42.9 fl Normal 35.1-43.9 [facility] Comment on above: Order Comment: 120-1 Performed By: #### L 100.0500, L500.4050 #### [facility] [address] [place], [address] WBC (Bld) [#/Vol] 8.9 10*3/uL Normal 4.4-11.0 [facility] Comment on above: Order Comment: 120-1 Performed By: #### L 100.0500, L500.4050 #### [facility] [address] [place], [address] Carbon dioxide, total [Moles /volume] in Central venous bloodOrdered By: Elisa Maldonado on 06-22-2024 CO2 [Moles/Vol] 22.0 mmol/L 21.0-32.0 [facility] Chloride assayOrdered By: Lanette Maldonado on 06-22-2024 Chloride [Moles/Vol] 102 mmol/L 98-108 [facility] Comprehensive Metabolic Prof ilon 06-22-2024 Albumin [Mass/Vol] 3.2 g/dL Low 3.4-4.8 [facility] Comment on above: Order Comment: 120-1 Performed By: #### L 100.0500, L500.4050 #### [facility] [address] [place], [address] Albumin/Globulin [Mass ratio] 0.9 {ratio} Normal 0.9-2.4 [facility] Comment on above: Order Comment: 120-1 Performed By: #### L 100.0500, L500.4050 #### [facility] [address] [place], [address] ALK PHOS 67 U/L Normal 35-104 [facility] Comment on above: Order Comment: 120-1 Performed By: #### L 100.0500, L500.4050 #### [facility] [address] [place], [address] ALT [Catalytic activity/Vol] 19 U/L Normal <=34 [facility] Comment on above: Order Comment: 120-1 Performed By: #### L 100.0500, L500.4050 #### [facility] [address] [place], [address] AST [Catalytic activity/Vol] 43 U/L High <=31 [facility] Comment on above: Order Comment: 120-1 Performed By: #### L 100.0500, L500.4050 #### [facility] [address] [place], [address] BUN/CRE 39.3 RATIO High 10-20 [facility] Comment on above: Order Comment: 120-1 Performed By: #### L 100.0500, L500.4050 #### [facility] [address] [place], [address] Calcium [Mass/Vol] 9.7 mg/dL Normal 7.6-11.0 [facility] Comment on above: Order Comment: 120-1 Performed By: #### L 100.0500, L500.4050 #### [facility] [address] [place], [address] Chloride [Moles/Vol] 102 mmol/L Normal 98-108 [facility] Comment on above: Order Comment: 120-1 Performed By: #### L 100.0500, L500.4050 #### [facility] [address] [place], [address] CO2 [Moles/Vol] 22.0 mmol/L Normal 21.0-32.0 [facility] Comment on above: Order Comment: 120-1 Performed By: #### L 100.0500, L500.4050 #### [facility] [address] [place], [address] Creatinine [Mass/Vol] 0.72 mg/dL Normal 0.70-1.20 [facility] Comment on above: Order Comment: 120-1 Performed By: #### L 100.0500, L500.4050 #### [facility] [address] [place], [address] GAP 13 Normal 5-15 [facility] Comment on above: Order Comment: 120-1 Performed By: #### L 100.0500, L500.4050 #### [facility] [address] [place], [address] GFR/1.73 sq M.predicted among non-blacks MDRD (S/P/Bld) [Vol rate/Area] 91 mL/min/{1.73_m2} Normal >60 [facility] Comment on above: Order Comment: 120-1 Result Comment: mL/m in/1.73m2 CKD-EPI Creatinine Equation (2020) Performed By: #### L 100.0500, L500.4050 #### [facility] [address] [place], [address] Globulin (S) [Mass/Vol] 3.6 g/dL Normal 2.2-4.2 [facility] Comment on above: Order Comment: 120-1 Performed By: #### L 100.0500, L500.4050 #### [facility] [address] [place], [address] Glucose [Mass/Vol] 104 mg/dL High 70-99 [facility] Comment on above: Order Comment: 120-1 Performed By: #### L 100.0500, [id number] #### [facility] [address] [place], [address] Potassium [Moles/Vol] 3.7 mmol/L Normal 3.3-5.1 [facility] Comment on above: Order Comment: 120-1 Performed By: #### L 100.0500, [id number] #### [facility] [address] [place], [address] Sodium [Moles/Vol] 137 mmol/L Normal 133-145 [facility] Comment on above: Order Comment: 120-1 Performed By: #### L 100.0500, [id number] #### [facility] [address] [place], [address] T BILI < 0.15 Normal 0.00-1.30 [facility] Comment on above: Order Comment: 120-1 Performed By: #### L 100.0500, [id number] #### [facility] [address] [place], [address] T PROT 6.8 g/dL Normal 5.9-8.4 [facility] Comment on above: Order Comment: 120-1 Performed By: #### L 100.0500, [id number] #### [facility] [address] [place], [address] Urea nitrogen [Mass/Vol] 28 mg/dL High 4-19 [facility] Comment on above: Order Comment: 120-1 Performed By: #### L 100.0500, [id number] #### [facility] [address] [place], [address] Erythrocyte distribution wid th (RBC) [Ratio]Ordered By: Elisa Maldonado on 06-22-2024 Erythrocyte distribution width (RBC) [Entitic vol] 42.9 fL 35.1-43.9 [facility] Erythrocyte distribution wid th ratioOrdered By: Elisa Maldonado on 06-22-2024 Erythrocyte distribution width (RBC) [Ratio] 14.8 % High 11.6-14.6 [facility] Erythrocyte distribution wid th standard deviationOrdered By: Elisa Maldonado on 06-22-2024 Erythrocyte distribution width (RBC) [Ratio] 42.9 fl 35.1-43.9 [facility] GFR/1.73 sq M.predicted kojo g non-blacks MDRD (S/P/Bld) [Vol rate/Area]Ordered By: Elisa Maldonado on 06-22-2024 Estimated GFR (MDRD) Non-Af Amer 91 >60 [facility] Comment on above: mL/min/1.73m2 CKD-EP I Creatinine Equation (2020) Glomerular filtration rate ( GFR) estimation/1.73 sq m using serum, plasma, or whole bOrdered By: Elisa Maldonado on 06-22-2024 GFR/1.73 sq M.predicted among non-blacks MDRD (S/P/Bld) [Vol rate/Area] 91 mL/min/{1.73_m2} >60 [facility] Comment on above: mL/min/1.73m2 CKD-EP I Creatinine Equation (2020) Hematocrit Auto (Bld) [Volum e fraction]Ordered By: Elisa Maldonado on 06-22-2024 Hematocrit (Bld) [Volume fraction] 31.4 % Low 37-47 [facility] Hemoglobin measurementOrdere d By: Elisa Maldonado on 06-22-2024 Hemoglobin (Bld) [Mass/Vol] 10.2 g/dL Low 12.0-15.0 [facility] - Chemistry and C hemistry - challengeOrdered By: Elisa Maldonado on 06-22-2024 AST [Catalytic activity/Vol] 43 U/L High <32 [facility] MCV (mean corpuscular volume ) determinationOrdered By: Elisa Maldonado on 06-22-2024 MCV (RBC) [Entitic vol] 79.3 fL Low 81-99 [facility] Mean corpuscular hemoglobin (MCH) determinationOrdered By: Elisa Maldonado on 06-22-2024 MCH (RBC) [Entitic mass] 25.8 pg Low 27.0-32.0 [facility] Mean corpuscular hemoglobin concentration (MCHC) determinationOrdered By: Elisa Maldonado on 06-22-2024 MCHC (RBC) [Mass/Vol] 32.5 g/dL 32-36 [facility] Mean platelet volume determi nationOrdered By: Elisa Maldonado on 06-22-2024 Platelet mean volume (Bld) [Entitic vol] 10.4 fL 6.2-12.0 [facility] Platelet countOrdered By: Lanette Maldonado on 06-22-2024 Platelets (Bld) [#/Vol] 248 10*3/uL 150-450 [facility] Potassium (Unsp spec) [Mass/ Vol]Ordered By: Elisa Maldonado on 06-22-2024 Potassium [Moles/Vol] 3.7 mmol/L 3.3-5.1 [facility] Potassium measurement (mass/ volume)Ordered By: Elisa Maldonado on 06-22-2024 Potassium (Unsp spec) [Mass/Vol] 3.7 mmol/L 3.3-5.1 [facility] RBC Auto (Bld) [#/Vol]Ordere d By: Elisa Maldonado on 06-22-2024 RBC (Bld) [#/Vol] 3.96 10*6/uL Low 4.2-5.4 [facility] Serum creatinine measurement (mass/volume)Ordered By: Elisa Maldonado on 06-22-2024 Creatinine [Mass/Vol] 0.72 mg/dL 0.70-1.20 [facility] Serum globulin measurementOr dered By: Elisa Maldonado on 06-22-2024 Globulin (S) [Mass/Vol] 3.6 g/dL 2.2-4.2 [facility] Serum glucose measurement (m ass/volume)Ordered By: Elisa Maldonado on 06-22-2024 Glucose [Mass/Vol] 104 mg/dL High 70-99 [facility] Serum or plasma alanine curry otransferase (ALT) measurementOrdered By: Elisa Maldonado on 06-22-2024 ALT [Catalytic activity/Vol] 19 U/L <35 [facility] Serum or plasma albumin emily urement (mass/volume)Ordered By: Elisa Maldonado on 06-22-2024 Albumin [Mass/Vol] 3.2 g/dL Low 3.4-4.8 [facility] Serum or plasma albumin/glob ulin mass ratioOrdered By: Elisa Maldonado on 06-22-2024 Albumin/Globulin [Mass ratio] 0.9 {ratio} 0.9-2.4 [facility] Serum or plasma alkaline mago sphatase measurementOrdered By: Elisa Maldonado on 06-22-2024 ALP [Catalytic activity/Vol] 67 U/L 35-104 [facility] Serum or plasma calcium emily urement (mass/volume)Ordered By: Elisa Maldonado on 06-22-2024 Calcium [Mass/Vol] 9.7 mg/dL 7.6-11.0 [facility] Serum or plasma urea nitroge n measurement (mass/volume)Ordered By: Elisa Maldonado on 06-22-2024 Urea nitrogen [Mass/Vol] 28 mg/dL High 4-19 [facility] Sodium levelOrdered By: Elisa Maldonado on 06-22-2024 Sodium [Moles/Vol] 137 mmol/L 133-145 [facility] Total proteinOrdered By: Clif Maldonado on 06-22-2024 Protein [Mass/Vol] 6.8 g/dL 5.9-8.4 [facility] White blood cell (WBC) count Ordered By: Elisa Maldonado on 06-22-2024 WBC (Bld) [#/Vol] 8.9 10*3/uL 4.4-11.0 [facility] 95-KG-Oijtdgu DOrdered By: Shelia Maldonado on 05-21-2024 Vitamin D 25-Hydroxy 37.1 ng/mL [facility] Comment on above: Vitamin D 25(OH) Sta tus Range Deficiency <20 ng/mL (50nmol/L) Insufficiency 20 - 30 ng/mL (50 - 75 nmol/L) Sufficiency 30 - 100 ng/mL (75 - 250 nmol/L) Toxicity >100 ng/mL (>250 nmol/L) High density lipoprotein (HD L) measurementOrdered By: Elisa Maldonado on 05-21-2024 Cholesterol in HDL [Mass/Vol] 41 mg/dL >40 [facility] Comment on above: The drugs N-Acetylcy steine and Metamizole may falsely depress this assay. Reference Range HDL <40 mg/dL Low HDL Cholesterol HDL >or= 60 mg/dL High HDL Cholesterol Lipid Profileon 05-21-2024 Cholesterol [Mass/Vol] 96 mg/dL Normal 200 [facility] Comment on above: Order Comment: 120.1 Result Comment: <200 mg/dL Desirable 200-240 mg/dL Borderline >240 mg/dL High Risk Performed By: #### L 501.8100, L500.4100, L506.1000 #### [facility] [address] [place], [address] Cholesterol in HDL [Mass/Vol] 41 mg/dL Normal [facility] Comment on above: Order Comment: 120.1 Result Comment: The drugs N-Acetylcysteine and Metamizole may falsely depress this assay. Reference Range HDL <40 mg/dL Low HDL Cholesterol HDL >or= 60 mg/dL High HDL Cholesterol Performed By: #### L 501.8100, L500.4100, L506.1000 #### [facility] [address] [place], [address] Cholesterol in LDL [Mass/Vol] 12 mg/dL Normal 0-130 [facility] Comment on above: Order Comment: 120.1 Performed By: #### L 501.8100, L500.4100, L506.1000 #### [facility] [address] [place], [address] Cholesterol in VLDL [Mass/Vol] 43 mg/dL High 5-40 [facility] Comment on above: Order Comment: 120.1 Performed By: #### L 501.8100, L500.4100, L506.1000 #### [facility] [address] [place], [address] Triglyceride [Mass/Vol] 216 mg/dL High [facility] Comment on above: Order Comment: 120.1 Result Comment: The drugs N-Acetylcysteine and Metamizole may falsely depress this assay. Serum Triglycerides Reference Interval Normal <150 mg/dL Borderline high 150 - 199 mg/dL High 200 - 499 mg/dL Very High > or = 500 mg/dL Performed By: #### L 501.8100, L500.4100, L506.1000 #### [facility] [address] [place], [address] Low density lipoprotein (LDL ) cholesterol measurementOrdered By: Elisa Maldonado on 05-21-2024 Cholesterol in LDL [Mass/Vol] 12 mg/dL 0-130 [facility] Serum or plasma cholesterol measurement (mass/volume)Ordered By: Elisa Maldonado on 05-21-2024 Cholesterol [Mass/Vol] 96 mg/dL <200 [facility] Comment on above: <200 mg/dL Desirable 200-240 mg/dL Borderline >240 mg/dL High Risk Triglycerides measurementOrd ered By: Elisa Maldonado on 05-21-2024 Triglyceride [Mass/Vol] 216 mg/dL High <199 [facility] Comment on above: The drugs N-Acetylcy steine and Metamizole may falsely depress this assay.Serum Triglycerides Reference Interval Normal <150 mg/dL Borderline high 150 - 199 mg/dL High 200 - 499 mg/dL Very High > or = 500 mg/dL Valproate levelOrdered By: Shelia Maldonado on 05-21-2024 Valproic Acid (Depakene) Level 68 ug/mL 50-100 [facility] Valproic Acid (Depakene) Lev alpa 05-21-2024 VALPROIC ACID 68 ug/mL Normal 50-100 [facility] Comment on above: Order Comment: 120.1 Performed By: #### L 100.0500, L500.4050 #### [facility] [address] [place], [place], [id number] Very low density lipoprotein (VLDL) cholesterol measurementOrdered By: Elisa Maldonado on 05-21-2024 Very low density lipoprotein (VLDL) cholesterol measurement 43 mg/dL High 5-40 [facility] VLDL Cholesterol 43 mg/dL High 5-40 [facility] Vitamin D,25 Hydroxyon 05-21 Vitamin D 25-OH 37.1 ng/mL Normal [facility] Comment on above: Order Comment: 120.1 Result Comment: Debo min D 25(OH) Status Range Deficiency <20 ng/mL (50nmol/L) Insufficiency 20 - 30 ng/mL (50 - 75 nmol/L) Sufficiency 30 - 100 ng/mL (75 - 250 nmol/L) Toxicity >100 ng/mL (>250 nmol/L) Performed By: #### L 100.0500, L500.4050 #### [facility] [address] [place], [place], [id number] Albumin to globulin ratioOrd ered By: Elisa Maldonado on 04-20-2024 Albumin/Globulin [Mass ratio] 0.6 {ratio} Low 0.9-2.4 [facility] Bilirubin, totalOrdered By: Elisa Maldonado on 04-20-2024 Bilirubin [Mass/Vol] 0.30 mg/dL 0.20-1.00 [facility] Comment on above: For patients on eltr ombopag therapy, use of Dimension [place] TBIL is not recommended. Blood urea nitrogen (BUN)/cr eatinine ratioOrdered By: Elisa Maldonado on 04-20-2024 Urea nitrogen/Creatinine [Mass ratio] 30.5 mg/mg High 10-20 [facility] CBC-Complete Blood Cnt No Di ffon 04-20-2024 Erythrocyte distribution width (RBC) [Ratio] 14.4 % Normal 11.6-14.6 [facility] Comment on above: Order Comment: 120.1 Performed By: #### L 100.0500, L500.4050 #### [facility] [address] [place], [address] Hematocrit (Bld) [Volume fraction] 33.1 % Low 37-47 [facility] Comment on above: Order Comment: 120.1 Performed By: #### L 100.0500, L500.4050 #### [facility] [address] [place], [address] Hemoglobin (Bld) [Mass/Vol] 10.6 g/dL Low 12.0-15.0 [facility] Comment on above: Order Comment: 120.1 Performed By: #### L 100.0500, L500.4050 #### [facility] [address] [place], [address] MCH (RBC) [Entitic mass] 26.0 pg Low 27.0-32.0 [facility] Comment on above: Order Comment: 120.1 Performed By: #### L 100.0500, L500.4050 #### [facility] [address] [place], [address] MCHC (RBC) [Mass/Vol] 32.0 g/dL Normal 32-36 [facility] Comment on above: Order Comment: 120.1 Performed By: #### L 100.0500, L500.4050 #### [facility] [address] [place], [address] MCV (RBC) [Entitic vol] 81.1 fL Normal 81-99 [facility] Comment on above: Order Comment: 120.1 Performed By: #### L 100.0500, L500.4050 #### [facility] [address] [place], [address] Platelet mean volume (Bld) [Entitic vol] 10.3 fL Normal 6.2-12.0 [facility] Comment on above: Order Comment: 120.1 Performed By: #### L 100.0500, [id number] #### [facility] [address] [place], [address] Platelets (Bld) [#/Vol] 308 10*3/uL Normal 150-450 [facility] Comment on above: Order Comment: 120.1 Performed By: #### L 100.0500, [id number] #### [facility] [address] [place], [address] RBC (Bld) [#/Vol] 4.08 10*6/uL Low 4.2-5.4 [facility] Comment on above: Order Comment: 120.1 Performed By: #### L 100.0500, [id number] #### [facility] [address] [place], [address] RDW SD 42.3 fl Normal 35.1-43.9 [facility] Comment on above: Order Comment: 120.1 Performed By: #### L 100.0500, [id number] #### [facility] [address] [place], [address] WBC (Bld) [#/Vol] 11.4 10*3/uL High 4.4-11.0 [facility] Comment on above: Order Comment: 120.1 Performed By: #### L 100.0500, [id number] #### [facility] [address] [place], [address] Carbon dioxide measurementOr dered By: Elisa Maldonado on 04-20-2024 CO2 [Moles/Vol] 28.0 mmol/L 21.0-32.0 [facility] Chloride measurementOrdered By: Elisa Maldonado on 04-20-2024 Chloride [Moles/Vol] 107 mmol/L 98-107 [facility] Comprehensive Metabolic Prof ilon 04-20-2024 Albumin [Mass/Vol] 2.8 g/dL Low 3.2-5.0 [facility] Comment on above: Order Comment: 120.1 Performed By: #### L 100.0500, [id number] #### [facility] [address] [place], [address] Albumin/Globulin [Mass ratio] 0.6 {ratio} Low 0.9-2.4 [facility] Comment on above: Order Comment: 120.1 Performed By: #### L 100.0500, L500.4050 #### [facility] [address] [place], [address] ALK P 64 U/L Normal 45-117 [facility] Comment on above: Order Comment: 120.1 Performed By: #### L 100.0500, L500.4050 #### [facility] [address] [place], [address] ALT [Catalytic activity/Vol] 17 U/L Normal 13-56 [facility] Comment on above: Order Comment: 120.1 Performed By: #### L 100.0500, L500.4050 #### [facility] [address] [place], [address] AST [Catalytic activity/Vol] 22 U/L Normal 15-37 [facility] Comment on above: Order Comment: 120.1 Performed By: #### L 100.0500, [id number] #### [facility] [address] [place], [address] Bilirubin [Mass/Vol] 0.30 mg/dL Normal 0.20-1.00 [facility] Comment on above: Order Comment: 120.1 Result Comment: For patients on eltrombopag therapy, use of Dimension [place] TBIL is not recommended. Performed By: #### L 100.0500, L500.4050 #### [facility] [address] [place], [address] BUN/CRE 30.5 RATIO High 10-20 [facility] Comment on above: Order Comment: 120.1 Performed By: #### L 100.0500, L500.4050 #### [facility] [address] [place], [address] CA,Total 9.6 mg/dL Normal 8.5-10.1 [facility] Comment on above: Order Comment: 120.1 Performed By: #### L 100.0500, [id number] #### [facility] [address], [address] Chloride [Moles/Vol] 107 mmol/L Normal 98-107 [facility] Comment on above: Order Comment: 120.1 Performed By: #### L 100.0500, [id number] #### [facility] [address] [place], [address] CO2 [Moles/Vol] 28.0 mmol/L Normal 21.0-32.0 [facility] Comment on above: Order Comment: 120.1 Performed By: #### L 100.0500, L500.4050 #### [facility] [address] [place], [address] Creatinine [Mass/Vol] 0.75 mg/dL Normal 0.55-1.02 [facility] Comment on above: Order Comment: 120.1 Result Comment: The validity of the calculated GFR GFRAA in patients over 70 years has not been determined. Clinical correlation is essential. Performed By: #### L 100.0500, L500.4050 #### [facility] [address] [place], [address] EST GFR - AA 98 mL/min Normal >60 [facility] Comment on above: Order Comment: 120.1 Result Comment: Afri can [place] GFR Calc Performed By: #### L 100.0500, L500.4050 #### [facility] [address] [place], [address] GAP 4 Low 5-15 [facility] Comment on above: Order Comment: 120.1 Performed By: #### L 100.0500, [id number] #### [facility] [address] [place], [address] GFR/1.73 sq M.predicted among non-blacks MDRD (S/P/Bld) [Vol rate/Area] 81 mL/min/{1.73_m2} Normal >60 [facility] Comment on above: Order Comment: 120.1 Result Comment: Non- GFR Calc Performed By: #### L 100.0500, L500.4050 #### [facility] [address] [place], [address] Globulin (S) [Mass/Vol] 4.4 g/dL High 2.2-4.2 [facility] Comment on above: Order Comment: 120.1 Performed By: #### L 100.0500, L500.4050 #### [facility] [address] [place], [address] Glucose [Mass/Vol] 101 mg/dL Normal 74-106 [facility] Comment on above: Order Comment: 120.1 Result Comment: Fast ing Glucose result from 100 to 125 mg/dL suggests IMPAIRED HOMEOSTASIS per A.D.A. criteria. Performed By: #### L 100.0500, L500.4050 #### [facility] [address] [place], [address] Potassium [Moles/Vol] 4.5 mmol/L Normal 3.5-5.1 [facility] Comment on above: Order Comment: 120.1 Performed By: #### L 100.0500, L500.4050 #### [facility] [address] [place], [address] Sodium [Moles/Vol] 139 mmol/L Normal 136-145 [facility] Comment on above: Order Comment: 120.1 Performed By: #### L 100.0500, L500.4050 #### [facility] [address] [place], [address] T PROT 7.2 g/dL Normal 6.4-8.2 [facility] Comment on above: Order Comment: 120.1 Performed By: #### L 100.0500, [id number] #### [facility] [address] [place], [address] Urea nitrogen [Mass/Vol] 23 mg/dL High 7-18 [facility] Comment on above: Order Comment: 120.1 Performed By: #### L 100.0500, L500.4050 #### [facility] [address] [place], [address] Erythrocyte distribution wid th (RBC) [Ratio]Ordered By: Elisa Maldonado on 04-20-2024 Erythrocyte distribution width (RBC) [Entitic vol] 42.3 fL 35.1-43.9 [facility] Erythrocyte distribution wid th ratioOrdered By: Elisa Maldonado on 04-20-2024 Erythrocyte distribution width (RBC) [Ratio] 14.4 % 11.6-14.6 [facility] Estimated glomerular filtrat ion rate (GFR) AmericanOrdered By: Elisa Maldonado on 04-20-2024 Estimated GFR (MDRD) Amer 98 mL/min >60 [facility] Comment on above: GFR Calc Glomerular filtration rate ( GFR) estimationOrdered By: Elisa Maldonado on 04-20-2024 Estimated GFR (MDRD) Non-Af Amer 81 mL/min >60 [facility] Comment on above: Non- GFR Calc Glucose measurementOrdered B y: Elisa Maldonado on 04-20-2024 Glucose [Mass/Vol] 101 mg/dL 74-106 [facility] Comment on above: Fasting Glucose resu lt from 100 to 125 mg/dL suggests IMPAIRED HOMEOSTASIS per A.D.A. criteria. Hematocrit Auto (Bld) [Volum e fraction]Ordered By: Elisa Maldonado on 04-20-2024 Hematocrit (Bld) [Volume fraction] 33.1 % Low 37-47 [facility] Hemoglobin measurementOrdere d By: Elisa Maldonado on 04-20-2024 Hemoglobin (Bld) [Mass/Vol] 10.6 g/dL Low 12.0-15.0 [facility] - Chemistry and C hemistry - challengeOrdered By: Elisa Maldonado on 04-20-2024 AST [Catalytic activity/Vol] 22 U/L 15-37 [facility] MCV (mean corpuscular volume ) determinationOrdered By: Elisa Maldonado on 04-20-2024 MCV (RBC) [Entitic vol] 81.1 fL 81-99 [facility] Mean corpuscular hemoglobin (MCH) determinationOrdered By: Elisa Maldonado on 04-20-2024 MCH (RBC) [Entitic mass] 26.0 pg Low 27.0-32.0 [facility] Mean corpuscular hemoglobin concentration (MCHC) determinationOrdered By: Elisa Maldonado on 04-20-2024 MCHC (RBC) [Mass/Vol] 32.0 g/dL 32-36 [facility] Mean platelet volume determi nationOrdered By: Elisa Maldonado on 04-20-2024 Platelet mean volume (Bld) [Entitic vol] 10.3 fL 6.2-12.0 [facility] Platelet countOrdered By: Lanette Maldonado on 04-20-2024 Platelets (Bld) [#/Vol] 308 10*3/uL 150-450 [facility] Potassium measurementOrdered By: Elisa Maldonado on 04-20-2024 Potassium [Moles/Vol] 4.5 mmol/L 3.5-5.1 [facility] RBC Auto (Bld) [#/Vol]Ordere d By: Elisa Maldonado on 04-20-2024 RBC (Bld) [#/Vol] 4.08 10*6/uL Low 4.2-5.4 [facility] Serum anion gap measurementO rdered By: Elisa Maldonado on 04-20-2024 Anion gap [Moles/Vol] 4 mmol/L Low 5-15 [facility] Serum globulin measurementOr dered By: Elisa Maldonado on 04-20-2024 Globulin (S) [Mass/Vol] 4.4 g/dL High 2.2-4.2 [facility] Serum or plasma alanine curry otransferase (ALT) measurementOrdered By: Elisa Maldonado on 04-20-2024 ALT [Catalytic activity/Vol] 17 U/L 13-56 [facility] Serum or plasma albumin emily urement (mass/volume)Ordered By: Elisa Maldonado on 04-20-2024 Albumin [Mass/Vol] 2.8 g/dL Low 3.2-5.0 [facility] Serum or plasma alkaline mago sphatase measurementOrdered By: Elisa Maldonado on 04-20-2024 ALP [Catalytic activity/Vol] 64 U/L 45-117 [facility] Serum or plasma calcium emily urement (mass/volume)Ordered By: Elisa Maldonado on 04-20-2024 Calcium [Mass/Vol] 9.6 mg/dL 8.5-10.1 [facility] Serum or plasma creatinine m easurement (mass/volume)Ordered By: Elisa Maldonado on 04-20-2024 Creatinine [Mass/Vol] 0.75 mg/dL 0.55-1.02 [facility] Comment on above: The validity of the calculated GFR & GFRAA in patients over 70 years has not been determined. Clinical correlation is essential. Serum or plasma urea nitroge n measurement (mass/volume)Ordered By: Elisa Maldonado on 04-20-2024 Urea nitrogen [Mass/Vol] 23 mg/dL High 7-18 [facility] Sodium levelOrdered By: Elisa Maldonado on 04-20-2024 Sodium [Moles/Vol] 139 mmol/L 136-145 [facility] Total proteinOrdered By: Clif Maldonado on 04-20-2024 Protein [Mass/Vol] 7.2 g/dL 6.4-8.2 [facility] White blood cell (WBC) count Ordered By: Elisa Maldonado on 04-20-2024 WBC (Bld) [#/Vol] 11.4 10*3/uL High 4.4-11.0 [facility] Ammoniaon 03-05-2024 Ammonia (P) [Moles/Vol] 36.0 umol/L High 11-32 [facility] Comment on above: Order Comment: 120.1 Performed By: #### L 501.8100, L500.4050, [id number] #### [facility] [address] [place], [address] Comprehensive Metabolic Prof ilon 03-05-2024 Albumin [Mass/Vol] 3.0 g/dL Low 3.2-5.0 [facility] Comment on above: Order Comment: 120.1 Performed By: #### L 501.8100, L500.4050, [id number] #### [facility] [address] [place], [address] Albumin/Globulin [Mass ratio] 0.6 {ratio} Low 0.9-2.4 [facility] Comment on above: Order Comment: 120.1 Performed By: #### L 501.8100, L500.4050, [id number] #### [facility] [address] [place], [address] ALK P 73 U/L Normal 45-117 [facility] Comment on above: Order Comment: 120.1 Performed By: #### L 501.8100, L500.4050, [id number] #### [facility] [address] [place], [address] ALT [Catalytic activity/Vol] 21 U/L Normal 13-56 [facility] Comment on above: Order Comment: 120.1 Performed By: #### L 501.8100, L500.4050, [id number] #### [facility] [address] [place], [address] AST [Catalytic activity/Vol] 34 U/L Normal 15-37 [facility] Comment on above: Order Comment: 120.1 Performed By: #### L 501.8100, L500.4050, [id number] #### [facility] [address] [place], [address] Bilirubin [Mass/Vol] 0.20 mg/dL Normal 0.20-1.00 [facility] Comment on above: Order Comment: 120.1 Result Comment: For patients on eltrombopag therapy, use of Dimension [place] TBIL is not recommended. Performed By: #### L 501.8100, L500.4050, L503.5510 #### [facility] [address] [place], [address] BUN/CRE 26.5 RATIO High 10-20 [facility] Comment on above: Order Comment: 120.1 Performed By: #### L 501.8100, L500.4050, [id number] #### [facility] [address] [place], [address] CA,Total 9.6 mg/dL Normal 8.5-10.1 [facility] Comment on above: Order Comment: 120.1 Performed By: #### L 501.8100, L500.4050, [id number] #### [facility] [address] [place], [address] Chloride [Moles/Vol] 109 mmol/L High 98-107 [facility] Comment on above: Order Comment: 120.1 Performed By: #### L 501.8100, [id number], [id number] #### [facility] [address] [place], [address] CO2 [Moles/Vol] 26.0 mmol/L Normal 21.0-32.0 [facility] Comment on above: Order Comment: 120.1 Performed By: #### L 501.8100, L500.4050, [id number] #### [facility] [address] [place], [address] Creatinine [Mass/Vol] 0.79 mg/dL Normal 0.55-1.02 [facility] Comment on above: Order Comment: 120.1 Result Comment: The validity of the calculated GFR GFRAA in patients over 70 years has not been determined. Clinical correlation is essential. Performed By: #### L 501.8100, L500.4050, [id number] #### [facility] [address] [place], [address] EST GFR - AA 93 mL/min Normal >60 [facility] Comment on above: Order Comment: 120.1 Result Comment: Afri can [place] GFR Calc Performed By: #### L 501.8100, L500.4050, [id number] #### [facility] [address] [place], [address] GAP 6 Normal 5-15 [facility] Comment on above: Order Comment: 120.1 Performed By: #### L 501.8100, [id number], [id number] #### [facility] [address] [place], [address] GFR/1.73 sq M.predicted among non-blacks MDRD (S/P/Bld) [Vol rate/Area] 77 mL/min/{1.73_m2} Normal >60 [facility] Comment on above: Order Comment: 120.1 Result Comment: Non- GFR Calc Performed By: #### L 501.8100, L500.4050, [id number] #### [facility] [address] [place], [address] Globulin (S) [Mass/Vol] 4.7 g/dL High 2.2-4.2 [facility] Comment on above: Order Comment: 120.1 Performed By: #### L 501.8100, L500.4050, [id number] #### [facility] [address] [place], [address] Glucose [Mass/Vol] 94 mg/dL Normal 74-106 [facility] Comment on above: Order Comment: 120.1 Performed By: #### L 501.8100, L500.4050, [id number] #### [facility] [address] [place], [address] Potassium [Moles/Vol] 4.1 mmol/L Normal 3.5-5.1 [facility] Comment on above: Order Comment: 120.1 Performed By: #### L 501.8100, L500.4050, [id number] #### [facility] [address] [place], [address] Sodium [Moles/Vol] 140 mmol/L Normal 136-145 [facility] Comment on above: Order Comment: 120.1 Performed By: #### L 501.8100, L500.4050, [id number] #### [facility] [address] [place], [address] T PROT 7.7 g/dL Normal 6.4-8.2 [facility] Comment on above: Order Comment: 120.1 Performed By: #### L 501.8100, L500.4050, [id number] #### [facility] [address] [place], [address] Urea nitrogen [Mass/Vol] 21 mg/dL High 7-18 [facility] Comment on above: Order Comment: 120.1 Performed By: #### L 501.8100, L500.4050, [id number] #### [facility] [address] [place], [address] Valproic Acid (Depakene) Lev lapa 03-05-2024 VALPROIC ACID 89 ug/mL Normal 50-100 [facility] Comment on above: Order Comment: 120.1 Performed By: #### L 501.8100, L500.4050, [id number] #### [facility] [address], [address] CBC-Complete Blood Cnt No Di ffon 02-19-2024 Erythrocyte distribution width (RBC) [Ratio] 13.9 % Normal 11.6-14.6 [facility] Comment on above: Order Comment: 120.1 Performed By: #### L 100.0500, [id number] #### [facility] [address] [place], [address] Hematocrit (Bld) [Volume fraction] 30.2 % Low 37-47 [facility] Comment on above: Order Comment: 120.1 Performed By: #### L 100.0500, [id number] #### [facility] [address] [place], [address] Hemoglobin (Bld) [Mass/Vol] 9.4 g/dL Low 12.0-15.0 [facility] Comment on above: Order Comment: 120.1 Performed By: #### L 100.0500, [id number] #### [facility] [address] [place], [address] MCH (RBC) [Entitic mass] 26.2 pg Low 27.0-32.0 [facility] Comment on above: Order Comment: 120.1 Performed By: #### L 100.0500, L500.4050 #### [facility] [address] [place], [address] MCHC (RBC) [Mass/Vol] 31.1 g/dL Low 32-36 [facility] Comment on above: Order Comment: 120.1 Performed By: #### L 100.0500, [id number] #### [facility] [address] [place], [address] MCV (RBC) [Entitic vol] 84.1 fL Normal 81-99 [facility] Comment on above: Order Comment: 120.1 Performed By: #### L 100.0500, [id number] #### [facility] [address] [place], [address] Platelet mean volume (Bld) [Entitic vol] 9.7 fL Normal 6.2-12.0 [facility] Comment on above: Order Comment: 120.1 Performed By: #### L 100.0500, L500.4050 #### [facility] [address] [place], [address] Platelets (Bld) [#/Vol] 312 10*3/uL Normal 150-450 [facility] Comment on above: Order Comment: 120.1 Performed By: #### L 100.0500, [id number] #### [facility] [address] [place], [address] RBC (Bld) [#/Vol] 3.59 10*6/uL Low 4.2-5.4 [facility] Comment on above: Order Comment: 120.1 Performed By: #### L 100.0500, [id number] #### [facility] [address] [place], [address] RDW SD 43.2 fl Normal 35.1-43.9 [facility] Comment on above: Order Comment: 120.1 Performed By: #### L 100.0500, [id number] #### [facility] [address] [place], [address] WBC (Bld) [#/Vol] 10.1 10*3/uL Normal 4.4-11.0 [facility] Comment on above: Order Comment: 120.1 Performed By: #### L 100.0500, [id number] #### [facility] [address] [place], [address] Comprehensive Metabolic Prof wvshavonne 02-19-2024 Albumin [Mass/Vol] 2.7 g/dL Low 3.2-5.0 [facility] Comment on above: Order Comment: 120.1 Performed By: #### L 100.0500, L500.4050 #### [facility] [address] [place], [address] Albumin/Globulin [Mass ratio] 0.7 {ratio} Low 0.9-2.4 [facility] Comment on above: Order Comment: 120.1 Performed By: #### L 100.0500, L500.4050 #### [facility] [address] [place], [address] ALK P 73 U/L Normal 45-117 [facility] Comment on above: Order Comment: 120.1 Performed By: #### L 100.0500, L500.4050 #### [facility] [address] [place], [address] ALT [Catalytic activity/Vol] 22 U/L Normal 13-56 [facility] Comment on above: Order Comment: 120.1 Performed By: #### L 100.0500, L500.4050 #### [facility] [address] [place], [address] AST [Catalytic activity/Vol] 24 U/L Normal 15-37 [facility] Comment on above: Order Comment: 120.1 Performed By: #### L 100.0500, L500.4050 #### [facility] [address] [place], [address] Bilirubin [Mass/Vol] 0.20 mg/dL Normal 0.20-1.00 [facility] Comment on above: Order Comment: 120.1 Result Comment: For patients on eltrombopag therapy, use of Dimension [place] TBIL is not recommended. Performed By: #### L 100.0500, L500.4050 #### [facility] [address] [place], [address] BUN/CRE 33.3 RATIO High 10-20 [facility] Comment on above: Order Comment: 120.1 Performed By: #### L 100.0500, L500.4050 #### [facility] [address] [place], [address] CA,Total 9.0 mg/dL Normal 8.5-10.1 [facility] Comment on above: Order Comment: 120.1 Performed By: #### L 100.0500, L500.4050 #### [facility] [address] [place], [address] Chloride [Moles/Vol] 109 mmol/L High 98-107 [facility] Comment on above: Order Comment: 120.1 Performed By: #### L 100.0500, L500.4050 #### [facility] [address] [place], [address] CO2 [Moles/Vol] 27.0 mmol/L Normal 21.0-32.0 [facility] Comment on above: Order Comment: 120.1 Performed By: #### L 100.0500, L500.4050 #### [facility] [address] [place], [address] Creatinine [Mass/Vol] 0.75 mg/dL Normal 0.55-1.02 [facility] Comment on above: Order Comment: 120.1 Result Comment: The validity of the calculated GFR GFRAA in patients over 70 years has not been determined. Clinical correlation is essential. Performed By: #### L 100.0500, L500.4050 #### [facility] [address] [place], [address] EST GFR - AA 99 mL/min Normal >60 [facility] Comment on above: Order Comment: 120.1 Result Comment: Afri can [place]guill[place] GFR Calc Performed By: #### L 100.0500, L500.4050 #### [facility] [address] [place], [address] GAP 4 Low 5-15 [facility] Comment on above: Order Comment: 120.1 Performed By: #### L 100.0500, L500.4050 #### [facility] [address] [place], [address] GFR/1.73 sq M.predicted among non-blacks MDRD (S/P/Bld) [Vol rate/Area] 82 mL/min/{1.73_m2} Normal >60 [facility] Comment on above: Order Comment: 120.1 Result Comment: Non- GFR Calc Performed By: #### L 100.0500, L500.4050 #### [facility] [address] [place], [address] Globulin (S) [Mass/Vol] 4.1 g/dL Normal 2.2-4.2 [facility] Comment on above: Order Comment: 120.1 Performed By: #### L 100.0500, L500.4050 #### [facility] [address] [place], [address] Glucose [Mass/Vol] 96 mg/dL Normal 74-106 [facility] Comment on above: Order Comment: 120.1 Performed By: #### L 100.0500, L500.4050 #### [facility] [address] [place], [address] Potassium [Moles/Vol] 4.2 mmol/L Normal 3.5-5.1 [facility] Comment on above: Order Comment: 120.1 Performed By: #### L 100.0500, L500.4050 #### [facility] [address] [place], [address] Sodium [Moles/Vol] 140 mmol/L Normal 136-145 [facility] Comment on above: Order Comment: 120.1 Performed By: #### L 100.0500, L500.4050 #### [facility] [address] [place], [address] T PROT 6.8 g/dL Normal 6.4-8.2 [facility] Comment on above: Order Comment: 120.1 Performed By: #### L 100.0500, L500.4050 #### [facility] [address] [place], [address] Urea nitrogen [Mass/Vol] 25 mg/dL High 7-18 [facility] Comment on above: Order Comment: 120.1 Performed By: #### L 100.0500, L500.4050 #### [facility] [address] [place], [place], [address] .Auto Diffon 08-11-2023 Basophil, Absolute 0.0 10 3/mcL Normal 0.0-0.3 [facility] ([place]) Comment on above: Performed By: #### A UNRULY, VALPR, CBC, ADIFF, BMP, GFR, AMM #### [address] [address] Basophils/100 WBC (Bld) 0.4 % Normal 0.0-2.5 [facility] ([place]) Comment on above: Performed By: #### A UNRULY, VALPR, CBC, ADIFF, BMP, GFR, AMM #### [address] [address] Eosinophil, Absolute 0.1 10 3/mcL Normal 0.0-0.7 [facility] ([place]) Comment on above: Performed By: #### A UNRULY, VALPR, CBC, ADIFF, BMP, GFR, AMM #### [address] [address] Eosinophils/100 WBC (Bld) 0.7 % Normal 0.0-6.0 [facility] ([place]) Comment on above: Performed By: #### A UNRULY, VALPR, CBC, ADIFF, BMP, GFR, AMM #### [address] [address] Lymphocyte, Absolute 3.1 10 3/mcL Normal 0.9-4.3 [facility] ([place]) Comment on above: Performed By: #### A UNRULY, VALPR, CBC, ADIFF, BMP, GFR, AMM #### [address] [address] Lymphocytes/100 WBC (Bld) 40.1 % High 20.0-40.0 [facility] ([place]) Comment on above: Performed By: #### A UNRULY, VALPR, CBC, ADIFF, BMP, GFR, AMM #### [address] [address] Monocyte, Absolute 0.8 10 3/mcL Normal 0.1-1.4 [facility] ([place]) Comment on above: Performed By: #### A UNRULY, VALPR, CBC, ADIFF, BMP, GFR, AMM #### [address] [address] Monocytes/100 WBC (Bld) 10.4 % Normal 2.0-13.0 [facility] ([place]) Comment on above: Performed By: #### A UNRULY, VALPR, CBC, ADIFF, BMP, GFR, AMM #### [address] [address] Neutrophils/100 WBC (Bld) 48.4 % Low 50.0-75.0 [facility] ([place]) Comment on above: Performed By: #### A UNRULY, VALPR, CBC, ADIFF, BMP, GFR, AMM #### [address] [address] .GFRon 08-11-2023 GFR >60 Normal [facility] ([place]) Comment on above: Result Comment: GFR Population [...] VALPR, CBC, ADIFF, BMP, GFR, AMM #### [address] [address] GFR Non- >60 Normal [facility] ([place]) Comment on above: Result Comment: GFR Population [...] VALPR, CBC, ADIFF, BMP, GFR, AMM #### [address] [address] .NEUABSon 08-11-2023 Neutrophil, Absolute 3.7 10 3/mcL Normal 2.3-8.1 [facility] ([place]) Comment on above: Performed By: #### A UNRULY, VALPR, CBC, ADIFF, BMP, GFR, AMM #### [address] [address] BMPon 08-11-2023 BUN/Creatinine Ratio 38.7 ratio High 10.0-22.0 [facility] ([place]) Comment on above: Performed By: #### A UNRULY, VALPR, CBC, ADIFF, BMP, GFR, AMM #### [address] [address] Calcium [Mass/Vol] 8.4 mg/dL Low 8.7-10.4 [facility] ([place]) Comment on above: Performed By: #### A UNRULY, VALPR, CBC, ADIFF, BMP, GFR, AMM #### [address] [address] Chloride [Moles/Vol] 111 mmol/L High 98-110 [facility] ([place]) Comment on above: Performed By: #### A UNRULY, VALPR, CBC, ADIFF, BMP, GFR, AMM #### [address] [address] CO2 [Moles/Vol] 24 mmol/L Normal 22-32 [facility] ([place]) Comment on above: Performed By: #### A UNRULY, VALPR, CBC, ADIFF, BMP, GFR, AMM #### [address] [address] Creatinine [Mass/Vol] 0.75 mg/dL Normal 0.50-1.20 [facility] ([place]) Comment on above: Performed By: #### A UNRULY, VALPR, CBC, ADIFF, BMP, GFR, AMM #### [address] [address] Electrolyte Balance 7.0 mEq/L Normal 4.0-15.0 On license of [facility] ([place]) Comment on above: Performed By: #### A UNRULY, VALPR, CBC, ADIFF, BMP, GFR, AMM #### [address] [address] Glucose [Mass/Vol] 72 mg/dL Low 82-115 [facility] ([place]) Comment on above: Performed By: #### A UNRULY, VALPR, CBC, ADIFF, BMP, GFR, AMM #### [address] [address] Potassium [Moles/Vol] 4.8 mmol/L Normal 3.5-5.0 [facility] ([place]) Comment on above: Performed By: #### A UNRULY, VALPR, CBC, ADIFF, BMP, GFR, AMM #### [address] [address] Sodium [Moles/Vol] 142 mmol/L Normal 136-145 [facility] ([place]) Comment on above: Performed By: #### A UNRULY, VALPR, CBC, ADIFF, BMP, GFR, AMM #### [place] [id number] Urea nitrogen [Mass/Vol] 29.0 mg/dL High 8.0-22.0 [facility] ([place]) Comment on above: Performed By: #### A UNRULY, VALPR, CBC, ADIFF, BMP, GFR, AMM #### [place] [id number] CBCon 08-11-2023 Erythrocyte distribution width (RBC) [Ratio] 15.1 % Normal 11.5-15.5 [facility] ([place]) Comment on above: Performed By: #### A UNRULY, VALPR, CBC, ADIFF, BMP, GFR, AMM #### [place] [address] Hematocrit (Bld) [Volume fraction] 33.5 % Low 34.0-46.0 [facility] ([place]) Comment on above: Performed By: #### A UNRULY, VALPR, CBC, ADIFF, BMP, GFR, AMM #### [place] [address] Hgb 11.4 G/dL Low 12.0-16.0 [facility] ([place]) Comment on above: Performed By: #### A UNRULY, VALPR, CBC, ADIFF, BMP, GFR, AMM #### [place] [id number] MCH (RBC) [Entitic mass] 29.0 pg Normal 27.0-33.0 [facility] ([place]) Comment on above: Performed By: #### A UNRULY, VALPR, CBC, ADIFF, BMP, GFR, AMM #### [place] [address] MCHC 34.0 G/dL Normal 32.0-36.0 [facility] ([place]) Comment on above: Performed By: #### A UNRULY, VALPR, CBC, ADIFF, BMP, GFR, AMM #### [place] [address] MCV (RBC) [Entitic vol] 85.4 fL Normal 80.0-99.0 [facility] ([place]) Comment on above: Performed By: #### A UNRULY, VALPR, CBC, ADIFF, BMP, GFR, AMM #### [address] [address] Platelet 293 10 3/mcL Normal 150-450 [facility] ([place]) Comment on above: Performed By: #### A UNRULY, VALPR, CBC, ADIFF, BMP, GFR, AMM #### [place] [address] Platelet mean volume (Bld) [Entitic vol] 7.4 fL Normal 6.6-10.5 [facility] ([place]) Comment on above: Performed By: #### A UNRULY, VALPR, CBC, ADIFF, BMP, GFR, AMM #### [place] [address] RBC 3.92 10 6/mcL Low 4.10-5.30 [facility] ([place]) Comment on above: Performed By: #### A UNRULY, VALPR, CBC, ADIFF, BMP, GFR, AMM #### [place] [address] WBC 7.7 10 3/mcL Normal 4.5-10.8 [facility] ([place]) Comment on above: Performed By: #### A UNRULY, VALPR, CBC, ADIFF, BMP, GFR, AMM #### [place] [address] LABORATORYOrdered By: SYSTEM SYSTEM on 08-11-2023 Basophils [...] 0.75 mg/dL Normal 0.50 - 1.20 mg/dL AH ADM SS Electrolyte Balance 7.0 mEq/L Normal 4.0 - 15 .0 mEq/L AH ADM SS Eosinophils (Bld) [#/Vol] 0.1 103/mcL Normal 0.0 - 0.7 10^3/mcL AH Workflow SS Eosinophils/100 WBC (Bld) 0.7 % Normal 0.0 - 6.0 % AH Workflow SS Erythrocyte distribution width (RBC) [Ratio] 15.1 % Normal 11.5 - 15.5 % Workflow SS GFR/1.73 sq M.predicted among blacks MDRD (S/P/Bld) [Vol rate/Area] ml/min/1.73sqm Invalid Interpretation Code [employer] S Comment on above: Interpretive Data: [...] (S/P/Bld) [Vol rate/Area] ml/min/1.73sqm Invalid Interpretation Code [employer] S Comment on above: Interpretive Data: [...] Basophil, Absolute 0.0 10 3/mcL Normal 0.0-0.3 [facility] ([place]) Comment on above: Performed By: #### A UNRULY, ADIFF, GFR, BMP, CBC ####[address] [address] Basophils/100 WBC (Bld) 0.1 % Normal 0.0-2.5 [facility] ([place]) Comment on above: Performed By: #### A UNRULY, ADIFF, GFR, BMP, CBC ####[address] [address] Eosinophil, Absolute 0.0 10 3/mcL Normal 0.0-0.7 [facility] ([place]) Comment on above: Performed By: #### A UNRULY, ADIFF, GFR, BMP, CBC ####[address] [address] Eosinophils/100 WBC (Bld) 0.1 % Normal 0.0-6.0 [facility] ([place]) Comment on above: Performed By: #### A UNRULY, ADIFF, GFR, BMP, CBC ####[address] [address] Lymphocyte, Absolute 2.6 10 3/mcL Normal 0.9-4.3 [facility] ([place]) Comment on above: Performed By: #### A UNRULY, ADIFF, GFR, BMP, CBC ####[address] [address] [address] Lymphocytes/100 WBC (Bld) 37.5 % Normal 20.0-40.0 [facility] ([place]) Comment on above: Performed By: #### A UNRULY, ADIFF, GFR, BMP, CBC ####[address] [address] Monocyte, Absolute 0.7 10 3/mcL Normal 0.1-1.4 [facility] ([place]) Comment on above: Performed By: #### A UNRULY, ADIFF, GFR, BMP, CBC ####[address] [address] Monocytes/100 WBC (Bld) 9.4 % Normal 2.0-13.0 [facility] ([place]) Comment on above: Performed By: #### A UNRULY, ADIFF, GFR, BMP, CBC ####[address] [address] Neutrophils/100 WBC (Bld) 52.9 % Normal 50.0-75.0 [facility] ([place]) Comment on above: Performed By: #### A UNRULY, ADIFF, GFR, BMP, CBC ####[address] [address] .GFRon 08-10-2023 GFR >60 Normal [facility] ([place]) Comment on above: Result Comment: GFR Population [...] #### A UNRULY, ADIFF, GFR, BMP, CBC ####[address] [address] GFR Non- >60 Normal [facility] ([place]) Comment on above: Result Comment: GFR Population [...] #### A UNRULY, ADIFF, GFR, BMP, CBC ####[address] [address] .NEUABSon 08-10-2023 Neutrophil, Absolute 3.7 10 3/mcL Normal 2.3-8.1 [facility] ([place]) Comment on above: Performed By: #### A UNRULY, ADIFF, GFR, BMP, CBC ####[place] [address] BMPon 08-10-2023 BUN/Creatinine Ratio 38.8 ratio High 10.0-22.0 [facility] ([place]) Comment on above: Performed By: #### A UNRULY, ADIFF, GFR, BMP, CBC ####[place] [address] Calcium [Mass/Vol] 8.6 mg/dL Low 8.7-10.4 [facility] ([place]) Comment on above: Performed By: #### A UNRULY, ADIFF, GFR, BMP, CBC ####[place] [address] Chloride [Moles/Vol] 112 mmol/L High 98-110 [facility] ([place]) Comment on above: Performed By: #### A UNRULY, ADIFF, GFR, BMP, CBC ####[place] [address] CO2 [Moles/Vol] 23 mmol/L Normal 22-32 [facility] ([place]) Comment on above: Performed By: #### A UNRULY, ADIFF, GFR, BMP, CBC ####[place] [address] Creatinine [Mass/Vol] 0.80 mg/dL Normal 0.50-1.20 [facility] ([place]) Comment on above: Performed By: #### A UNRULY, ADIFF, GFR, BMP, CBC ####[address] [address] Electrolyte Balance 6.0 mEq/L Normal 4.0-15.0 On license of [facility] ([place]) Comment on above: Performed By: #### A UNRULY, ADIFF, GFR, BMP, CBC ####[place] [address] Glucose [Mass/Vol] 76 mg/dL Low 82-115 [facility] ([place]) Comment on above: Performed By: #### A UNRULY, ADIFF, GFR, BMP, CBC ####[place] [address] Potassium [Moles/Vol] 4.4 mmol/L Normal 3.5-5.0 [facility] ([place]) Comment on above: Performed By: #### A UNRULY, ADIFF, GFR, BMP, CBC ####[place] [address] Sodium [Moles/Vol] 141 mmol/L Normal 136-145 [facility] ([place]) Comment on above: Performed By: #### A UNRULY, ADIFF, GFR, BMP, CBC ####[place] [address] Urea nitrogen [Mass/Vol] 31.0 mg/dL High 8.0-22.0 [facility] ([place]) Comment on above: Performed By: #### A UNRULY, ADIFF, GFR, BMP, CBC ####[place] [address] CBCon 08-10-2023 Erythrocyte distribution width (RBC) [Ratio] 15.3 % Normal 11.5-15.5 [facility] ([place]) Comment on above: Performed By: #### A UNRULY, ADIFF, GFR, BMP, CBC ####[place] [address] Hematocrit (Bld) [Volume fraction] 32.5 % Low 34.0-46.0 [facility] ([place]) Comment on above: Performed By: #### A UNRULY, ADIFF, GFR, BMP, CBC ####[place] [address] Hgb 10.8 G/dL Low 12.0-16.0 [facility] ([place]) Comment on above: Performed By: #### A UNRULY, ADIFF, GFR, BMP, CBC ####[place] [address] MCH (RBC) [Entitic mass] 28.1 pg Normal 27.0-33.0 [facility] ([place]) Comment on above: Performed By: #### A UNRULY, ADIFF, GFR, BMP, CBC ####[place] [address] MCHC 33.1 G/dL Normal 32.0-36.0 [facility] ([place]) Comment on above: Performed By: #### A UNRULY, ADIFF, GFR, BMP, CBC ####[place] [address] MCV (RBC) [Entitic vol] 85.0 fL Normal 80.0-99.0 [facility] ([place]) Comment on above: Performed By: #### A UNRULY, ADIFF, GFR, BMP, CBC ####[place] [address] Platelet 307 10 3/mcL Normal 150-450 [facility] ([place]) Comment on above: Performed By: #### A UNRULY, ADIFF, GFR, BMP, CBC ####[place] [address] Platelet mean volume (Bld) [Entitic vol] 7.4 fL Normal 6.6-10.5 [facility] ([place]) Comment on above: Performed By: #### A UNRULY, ADIFF, GFR, BMP, CBC ####[place] [address] RBC 3.83 10 6/mcL Low 4.10-5.30 [facility] ([place]) Comment on above: Performed By: #### A UNRULY, ADIFF, GFR, BMP, CBC ####[place] [address] WBC 6.9 10 3/mcL Normal 4.5-10.8 [facility] ([place]) Comment on above: Performed By: #### A UNRULY, ADIFF, GFR, BMP, CBC ####[place] [address] LABORATORYOrdered By: SYSTEM SYSTEM on 08-10-2023 Basophils (Bld) [#/Vol] 0.0 103/mcL Normal 0.0 - 0.3 10^3/mcL AH Workflow SS Basophils/100 WBC (Bld) 0.1 % Normal 0.0 - 2.5 % AH Workflow SS Calcium [Mass/Vol] 8.6 mg/dL Low 8.7 - 10. 4 mg/dL AH ADM SS Chloride [Moles/Vol] 112 mmol/L High 98 - 11 0 mEq/L ADM SS CO2 [Moles/Vol] 23 mmol/L Normal 22 - 32 mEq/L AH ADM SS Creatinine [Mass/Vol] 0.80 mg/dL Normal 0.50 - 1.20 mg/dL AH ADM SS Electrolyte Balance 6.0 mEq/L Normal [...] Basophil, Absolute 0.0 10 3/mcL Normal 0.0-0.3 [facility] ([place]) Comment on above: Performed By: #### A UNRULY, VALPR, CBC, ADIFF, BMP, GFR, AMM #### [address] [address] Basophils/100 WBC (Bld) 0.3 % Normal 0.0-2.5 [facility] ([place]) Comment on above: Performed By: #### A UNRULY, VALPR, CBC, ADIFF, BMP, GFR, AMM #### [address] [address] Eosinophil, Absolute 0.2 10 3/mcL Normal 0.0-0.7 [facility] ([place]) Comment on above: Performed By: #### A UNRULY, VALPR, CBC, ADIFF, BMP, GFR, AMM #### [address] [address] Eosinophils/100 WBC (Bld) 2.2 % Normal 0.0-6.0 [facility] ([place]) Comment on above: Performed By: #### A UNRULY, VALPR, CBC, ADIFF, BMP, GFR, AMM #### [address] [address] Lymphocyte, Absolute 1.9 10 3/mcL Normal 0.9-4.3 [facility] ([place]) Comment on above: Performed By: #### A UNRULY, VALPR, CBC, ADIFF, BMP, GFR, AMM #### [address] [address] Lymphocytes/100 WBC (Bld) 25.8 % Normal 20.0-40.0 [facility] ([place]) Comment on above: Performed By: #### A UNRULY, VALPR, CBC, ADIFF, BMP, GFR, AMM #### [address] [address] Monocyte, Absolute 0.8 10 3/mcL Normal 0.1-1.4 [facility] ([place]) Comment on above: Performed By: #### A UNRULY, VALPR, CBC, ADIFF, BMP, GFR, AMM #### [address] [address] Monocytes/100 WBC (Bld) 11.1 % Normal 2.0-13.0 [facility] ([place]) Comment on above: Performed By: #### A UNRULY, VALPR, CBC, ADIFF, BMP, GFR, AMM #### [address] [address] Neutrophils/100 WBC (Bld) 60.6 % Normal 50.0-75.0 [facility] ([place]) Comment on above: Performed By: #### A UNRULY, VALPR, CBC, ADIFF, BMP, GFR, AMM #### [address] [address] .GFRon 08-09-2023 GFR Non- >60 Normal [facility] ([place]) Comment on above: Result Comment: GFR Population [...] VALPR, CBC, ADIFF, BMP, GFR, AMM #### [address] [address] GFR >60 Normal [facility] ([place]) Comment on above: Result Comment: GFR Population [...] VALPR, CBC, ADIFF, BMP, GFR, AMM #### [address] [address] .NEUABSon 08-09-2023 Neutrophil, Absolute 4.5 10 3/mcL Normal 2.3-8.1 [facility] ([place]) Comment on above: Performed By: #### A UNRULY, VALPR, CBC, ADIFF, BMP, GFR, AMM #### [address] [address] Gael 08-09-2023 Ammonia 19 mcmol/l Normal 11-32 [facility] ([place]) Comment on above: Performed By: #### A UNRULY, VALPR, CBC, ADIFF, BMP, GFR, AMM #### [address] [address] BMPon 08-09-2023 BUN/Creatinine Ratio 30.9 ratio High 10.0-22.0 [facility] ([place]) Comment on above: Performed By: #### A UNRULY, VALPR, CBC, ADIFF, BMP, GFR, AMM #### [address] [address] Calcium [Mass/Vol] 8.8 mg/dL Normal 8.7-10.4 [facility] ([place]) Comment on above: Performed By: #### A UNRULY, VALPR, CBC, ADIFF, BMP, GFR, AMM #### [address] [address] Chloride [Moles/Vol] 109 mmol/L Normal 98-110 [facility] ([place]) Comment on above: Performed By: #### A UNRULY, VALPR, CBC, ADIFF, BMP, GFR, AMM #### [address] [address] CO2 [Moles/Vol] 25 mmol/L Normal 22-32 [facility] ([place]) Comment on above: Performed By: #### A UNRULY, VALPR, CBC, ADIFF, BMP, GFR, AMM #### [address] [address] Creatinine [Mass/Vol] 0.81 mg/dL Normal 0.50-1.20 [facility] ([place]) Comment on above: Performed By: #### A UNRULY, VALPR, CBC, ADIFF, BMP, GFR, AMM #### [address] [address] Electrolyte Balance 7.0 mEq/L Normal 4.0-15.0 On license of [facility] ([place]) Comment on above: Performed By: #### A UNRULY, VALPR, CBC, ADIFF, BMP, GFR, AMM #### [address] [address] Glucose [Mass/Vol] 81 mg/dL Low 82-115 [facility] ([place]) Comment on above: Performed By: #### A UNRULY, VALPR, CBC, ADIFF, BMP, GFR, AMM #### [address] [address] Potassium [Moles/Vol] 4.2 mmol/L Normal 3.5-5.0 [facility] ([place]) Comment on above: Performed By: #### A UNRULY, VALPR, CBC, ADIFF, BMP, GFR, AMM #### [address] [address] Sodium [Moles/Vol] 141 mmol/L Normal 136-145 [facility] ([place]) Comment on above: Performed By: #### A UNRULY, VALPR, CBC, ADIFF, BMP, GFR, AMM #### [address] [address] Urea nitrogen [Mass/Vol] 25.0 mg/dL High 8.0-22.0 [facility] ([place]) Comment on above: Performed By: #### A UNRULY, VALPR, CBC, ADIFF, BMP, GFR, AMM #### [address] [address] CBCon 08-09-2023 Erythrocyte distribution width (RBC) [Ratio] 15.2 % Normal 11.5-15.5 [facility] ([place]) Comment on above: Performed By: #### A UNRULY, VALPR, CBC, ADIFF, BMP, GFR, AMM #### [address] [address] Hematocrit (Bld) [Volume fraction] 34.1 % Normal 34.0-46.0 [facility] ([place]) Comment on above: Performed By: #### A UNRULY, VALPR, CBC, ADIFF, BMP, GFR, AMM #### [address] [address] Hgb 11.6 G/dL Low 12.0-16.0 [facility] ([place]) Comment on above: Performed By: #### A UNRULY, VALPR, CBC, ADIFF, BMP, GFR, AMM #### [address] [address] MCH (RBC) [Entitic mass] 28.3 pg Normal 27.0-33.0 [facility] ([place]) Comment on above: Performed By: #### A UNRULY, VALPR, CBC, ADIFF, BMP, GFR, AMM #### [place] [address] MCHC 33.9 G/dL Normal 32.0-36.0 [facility] ([place]) Comment on above: Performed By: #### A UNRULY, VALPR, CBC, ADIFF, BMP, GFR, AMM #### [place] [address] MCV (RBC) [Entitic vol] 83.6 fL Normal 80.0-99.0 [facility] ([place]) Comment on above: Performed By: #### A UNRULY, VALPR, CBC, ADIFF, BMP, GFR, AMM #### [place] [address] Platelet 299 10 3/mcL Normal 150-450 [facility] ([place]) Comment on above: Performed By: #### A UNRULY, VALPR, CBC, ADIFF, BMP, GFR, AMM #### [place] [address] Platelet mean volume (Bld) [Entitic vol] 7.2 fL Normal 6.6-10.5 [facility] ([place]) Comment on above: Performed By: #### A UNRULY, VALPR, CBC, ADIFF, BMP, GFR, AMM #### [place] [address] RBC 4.08 10 6/mcL Low 4.10-5.30 [facility] ([place]) Comment on above: Performed By: #### A UNRULY, VALPR, CBC, ADIFF, BMP, GFR, AMM #### [place] [address] WBC 7.4 10 3/mcL Normal 4.5-10.8 [facility] ([place]) Comment on above: Performed By: #### A UNRULY, VALPR, CBC, ADIFF, BMP, GFR, AMM #### [place] [address] LABORATORYOrdered By: SYSTEM SYSTEM on 08-09-2023 Ammonia [...] (S/P/Bld) [Vol rate/Area] ml/min/1.73sqm Invalid Interpretation Code [employer] Chemistry S Comment on above: Interpretive Data: [...] (S/P/Bld) [Vol rate/Area] ml/min/1.73sqm Invalid Interpretation Code [employer] Chemistry S Comment on above: Interpretive Data: [...] 10.8 10^3/mcL AH Workflow SS LABORATORYOrdered By: eNlda Carl on 08-09-2023 LDose Valproic Acid: See [...] 08/09/2023 11:01:30 AM Ordering Provider: BRITT LOPEZ Normal [facility] ([place]) VALPRon 08-09-2023 LDose Valproic Acid: See eMAR Normal [facility] ([place]) Comment on above: Performed By: #### A UNRULY, VALPR, CBC, ADIFF, BMP, GFR, AMM #### [address] [address] Valproic Acid Lvl 110.8 mcg/mL Normal 50.0-130.0 On license of [facility] ([place]) Comment on above: Performed By: #### A UNRULY, VALPR, CBC, ADIFF, BMP, GFR, AMM #### [place] [address] .Auto Diffon 08-08-2023 Basophil, Absolute 0.0 10 3/mcL Normal 0.0-0.3 [facility] ([place]) Comment on above: Performed By: #### A UNRULY, VALPR, CBC, ADIFF, BMP, GFR, AMM #### [place] [address] Basophils/100 WBC (Bld) 0.4 % Normal 0.0-2.5 [facility] ([place]) Comment on above: Performed By: #### A UNRULY, VALPR, CBC, ADIFF, BMP, GFR, AMM #### [address] [address] Eosinophil, Absolute 0.3 10 3/mcL Normal 0.0-0.7 [facility] ([place]) Comment on above: Performed By: #### A UNRULY, VALPR, CBC, ADIFF, BMP, GFR, AMM #### [address] [address] Eosinophils/100 WBC (Bld) 3.2 % Normal 0.0-6.0 [facility] ([place]) Comment on above: Performed By: #### A UNRULY, VALPR, CBC, ADIFF, BMP, GFR, AMM #### [address] [address] Lymphocyte, Absolute 3.1 10 3/mcL Normal 0.9-4.3 [facility] ([place]) Comment on above: Performed By: #### A UNRULY, VALPR, CBC, ADIFF, BMP, GFR, AMM #### [address] [address] Lymphocytes/100 WBC (Bld) 31.0 % Normal 20.0-40.0 [facility] ([place]) Comment on above: Performed By: #### A UNRULY, VALPR, CBC, ADIFF, BMP, GFR, AMM #### [address] [address] Monocyte, Absolute 1.1 10 3/mcL Normal 0.1-1.4 [facility] ([place]) Comment on above: Performed By: #### A UNRULY, VALPR, CBC, ADIFF, BMP, GFR, AMM #### [address] [address] Monocytes/100 WBC (Bld) 11.5 % Normal 2.0-13.0 [facility] ([place]) Comment on above: Performed By: #### A UNRULY, VALPR, CBC, ADIFF, BMP, GFR, AMM #### [address] [address] Neutrophils/100 WBC (Bld) 53.9 % Normal 50.0-75.0 [facility] ([place]) Comment on above: Performed By: #### A UNRULY, VALPR, CBC, ADIFF, BMP, GFR, AMM #### [address] [address] .GFRon 08-08-2023 GFR >60 Normal [facility] ([place]) Comment on above: Result Comment: GFR Population [...] VALPR, CBC, ADIFF, BMP, GFR, AMM #### [address] [address] GFR Non- >60 Normal [facility] ([place]) Comment on above: Result Comment: GFR Population [...] VALPR, CBC, ADIFF, BMP, GFR, AMM #### [address] [address] .NEUABSon 08-08-2023 Neutrophil, Absolute 5.4 10 3/mcL Normal 2.3-8.1 [facility] ([place]) Comment on above: Performed By: #### A UNRULY, VALPR, CBC, ADIFF, BMP, GFR, AMM #### [address] [address] Gael 08-08-2023 Ammonia 30 mcmol/l Normal 11-32 [facility] ([place]) Comment on above: Performed By: #### A UNRULY, VALPR, CBC, ADIFF, BMP, GFR, AMM #### [address] [address] CBCon 08-08-2023 Erythrocyte distribution width (RBC) [Ratio] 15.5 % Normal 11.5-15.5 [facility] ([place]) Comment on above: Performed By: #### A UNRULY, VALPR, CBC, ADIFF, BMP, GFR, AMM #### [address] [address] Hematocrit (Bld) [Volume fraction] 32.9 % Low 34.0-46.0 [facility] ([place]) Comment on above: Performed By: #### A UNRULY, VALPR, CBC, ADIFF, BMP, GFR, AMM #### [place] [address] Hgb 11.2 G/dL Low 12.0-16.0 [facility] ([place]) Comment on above: Performed By: #### A UNRULY, VALPR, CBC, ADIFF, BMP, GFR, AMM #### [place] [address] MCH (RBC) [Entitic mass] 28.6 pg Normal 27.0-33.0 [facility] ([place]) Comment on above: Performed By: #### A UNRULY, VALPR, CBC, ADIFF, BMP, GFR, AMM #### [place] [address] MCHC 33.9 G/dL Normal 32.0-36.0 [facility] ([place]) Comment on above: Performed By: #### A UNRULY, VALPR, CBC, ADIFF, BMP, GFR, AMM #### [place] [address] MCV (RBC) [Entitic vol] 84.2 fL Normal 80.0-99.0 [facility] ([place]) Comment on above: Performed By: #### A UNRULY, VALPR, CBC, ADIFF, BMP, GFR, AMM #### [place] [address] Platelet 279 10 3/mcL Normal 150-450 [facility] ([place]) Comment on above: Performed By: #### A UNRULY, VALPR, CBC, ADIFF, BMP, GFR, AMM #### [place] [address] Platelet mean volume (Bld) [Entitic vol] 7.7 fL Normal 6.6-10.5 [facility] ([place]) Comment on above: Performed By: #### A UNRULY, VALPR, CBC, ADIFF, BMP, GFR, AMM #### [place] [address] RBC 3.90 10 6/mcL Low 4.10-5.30 [facility] ([place]) Comment on above: Performed By: #### A UNRULY, VALPR, CBC, ADIFF, BMP, GFR, AMM #### [address] [address] WBC 9.9 10 3/mcL Normal 4.5-10.8 [facility] ([place]) Comment on above: Performed By: #### A UNRULY, VALPR, CBC, ADIFF, BMP, GFR, AMM #### [address] [address] CMPon 08-08-2023 Albumin Level 2.7 G/dL Low 3.2-4.8 [facility] ([place]) Comment on above: Performed By: #### A UNRULY, VALPR, CBC, ADIFF, BMP, GFR, AMM #### [address] [address] Albumin/Globulin [Mass ratio] 0.6 {ratio} Low 0.9-1.6 [facility] ([place]) Comment on above: Performed By: #### A UNRULY, VALPR, CBC, ADIFF, BMP, GFR, AMM #### [address] [address] ALP [Catalytic activity/Vol] 52 U/L Normal 38-126 [facility] ([place]) Comment on above: Performed By: #### A UNRULY, VALPR, CBC, ADIFF, BMP, GFR, AMM #### [address] [address] ALT [Catalytic activity/Vol] 30 U/L Normal 10-49 [facility] ([place]) Comment on above: Performed By: #### A UNRULY, VALPR, CBC, ADIFF, BMP, GFR, AMM #### [address] [address] AST [Catalytic activity/Vol] 48 U/L High 8-34 [facility] ([place]) Comment on above: Performed By: #### A UNRULY, VALPR, CBC, ADIFF, BMP, GFR, AMM #### [address] [address] Bili Total 0.30 mg/dL Normal 0.20-1.20 [facility] ([place]) Comment on above: Result Comment: Use of this assay is not recommended for patients undergoing treatment with eltrombopag due to the potential for falsely elevated results. Performed By: #### A UNRULY, VALPR, CBC, ADIFF, BMP, GFR, AMM #### [address] [address] BUN/Creatinine Ratio 28.0 ratio High 10.0-22.0 [facility] ([place]) Comment on above: Performed By: #### A UNRULY, VALPR, CBC, ADIFF, BMP, GFR, AMM #### [place] [id number] Calcium [Mass/Vol] 8.5 mg/dL Low 8.7-10.4 [facility] ([place]) Comment on above: Performed By: #### A UNRULY, VALPR, CBC, ADIFF, BMP, GFR, AMM #### [place] [id number] Chloride [Moles/Vol] 110 mmol/L Normal 98-110 [facility] ([place]) Comment on above: Performed By: #### A UNRULY, VALPR, CBC, ADIFF, BMP, GFR, AMM #### [address] [address] CO2 [Moles/Vol] 22 mmol/L Normal 22-32 [facility] ([place]) Comment on above: Performed By: #### A UNRULY, VALPR, CBC, ADIFF, BMP, GFR, AMM #### [address] [address] Creatinine [Mass/Vol] 0.75 mg/dL Normal 0.50-1.20 [facility] ([place]) Comment on above: Performed By: #### A UNRULY, VALPR, CBC, ADIFF, BMP, GFR, AMM #### [address] [address] Electrolyte Balance 6.0 mEq/L Normal 4.0-15.0 On license of [facility] ([place]) Comment on above: Performed By: #### A UNRULY, VALPR, CBC, ADIFF, BMP, GFR, AMM #### [address] [address] Globulin 4.3 G/dL High 1.5-3.8 [facility] ([place]) Comment on above: Performed By: #### A UNRULY, VALPR, CBC, ADIFF, BMP, GFR, AMM #### [address] [address] Glucose [Mass/Vol] 77 mg/dL Low 82-115 [facility] ([place]) Comment on above: Performed By: #### A UNRULY, VALPR, CBC, ADIFF, BMP, GFR, AMM #### [place] [id number] Potassium [Moles/Vol] 4.0 mmol/L Normal 3.5-5.0 [facility] ([place]) Comment on above: Performed By: #### A UNRULY, VALPR, CBC, ADIFF, BMP, GFR, AMM #### [place] [phone] Sodium [Moles/Vol] 138 mmol/L Normal 136-145 [facility] ([place]) Comment on above: Performed By: #### A UNRULY, VALPR, CBC, ADIFF, BMP, GFR, AMM #### [place] [id number] Total Protein 7.0 G/dL Normal 5.7-8.2 [facility] ([place]) Comment on above: Result Comment: No te - New Reference Range in effect 19 Performed By: #### A UNRULY, VALPR, CBC, ADIFF, BMP, GFR, AMM #### [place] [phone] Urea nitrogen [Mass/Vol] 21.0 mg/dL Normal 8.0-22.0 [facility] ([place]) Comment on above: Performed By: #### A UNRULY, VALPR, CBC, ADIFF, BMP, GFR, AMM #### [place] [id number] KEPPRAon 08-08-2023 Levetiracetam Lvl 80.8 UG/ML High 10.0-40.0 [facility] ([place]) Comment on above: Result Comment: Perf ormed At: [facility] [address] [id number] Yan Sanchez MD Ph:[phone] Performed By: #### A UNRULY, VALPR, CBC, ADIFF, BMP, GFR, AMM #### [place] [address] LABORATORYOrdered By: SYSTEM SYSTEM on 08-08-2023 Albumin [...] Acid: See eMAR (08/08/23 6:29 AM) Normal Chemistry S VALPRon 08-08-2023 LDose Valproic Acid: See eMAR Normal [facility] ([place]) Comment on above: Performed By: #### A UNRULY, VALPR, CBC, ADIFF, BMP, GFR, AMM #### [address] [address] Valproic Acid Lvl 107.6 mcg/mL Normal 50.0-130.0 On license of [facility] ([place]) Comment on above: Performed By: #### A UNRULY, VALPR, CBC, ADIFF, BMP, GFR, AMM #### [address] [address] .Auto Diffon 08-07-2023 Basophil, Absolute 0.0 10 3/mcL Normal 0.0-0.3 [facility] ([place]) Comment on above: Performed By: #### A UNRULY, ADIFF, GFR, CBC, BMP ####[address] [address] Basophils/100 WBC (Bld) 0.3 % Normal 0.0-2.5 [facility] ([place]) Comment on above: Performed By: #### A UNRULY, ADIFF, GFR, CBC, BMP ####[address] [address] Eosinophil, Absolute 0.2 10 3/mcL Normal 0.0-0.7 [facility] ([place]) Comment on above: Performed By: #### A UNRULY, ADIFF, GFR, CBC, BMP ####[address] [address] Eosinophils/100 WBC (Bld) 1.7 % Normal 0.0-6.0 [facility] ([place]) Comment on above: Performed By: #### A UNRULY, ADIFF, GFR, CBC, BMP ####[address] [address] Lymphocyte, Absolute 3.3 10 3/mcL Normal 0.9-4.3 [facility] ([place]) Comment on above: Performed By: #### A UNRULY, ADIFF, GFR, CBC, BMP ####[address] [address] Lymphocytes/100 WBC (Bld) 26.3 % Normal 20.0-40.0 [facility] ([place]) Comment on above: Performed By: #### A UNRULY, ADIFF, GFR, CBC, BMP ####[address] [address] Monocyte, Absolute 1.4 10 3/mcL Normal 0.1-1.4 [facility] ([place]) Comment on above: Performed By: #### A UNRULY, ADIFF, GFR, CBC, BMP ####[address] [address] Monocytes/100 WBC (Bld) 11.0 % Normal 2.0-13.0 [facility] ([place]) Comment on above: Performed By: #### A UNRULY, ADIFF, GFR, CBC, BMP ####[address] [address] Neutrophils/100 WBC (Bld) 60.7 % Normal 50.0-75.0 [facility] ([place]) Comment on above: Performed By: #### A UNRULY, ADIFF, GFR, CBC, BMP ####[address] [address] .GFRon 08-07-2023 GFR Non- >60 Normal [facility] ([place]) Comment on above: Result Comment: GFR Population [...] #### A UNRULY, ADIFF, GFR, CBC, BMP ####[address] [address] GFR >60 Normal [facility] ([place]) Comment on above: Result Comment: GFR Population [...] #### A UNRULY, ADIFF, GFR, CBC, BMP ####[address] [address] .NEUABSon 08-07-2023 Neutrophil, Absolute 7.6 10 3/mcL Normal 2.3-8.1 [facility] ([place]) Comment on above: Performed By: #### A UNRULY, ADIFF, GFR, CBC, BMP ####[place] [address] BMPon 08-07-2023 BUN/Creatinine Ratio 25.0 ratio High 10.0-22.0 [facility] ([place]) Comment on above: Performed By: #### A UNRULY, ADIFF, GFR, CBC, BMP ####[address] [address] Calcium [Mass/Vol] 9.0 mg/dL Normal 8.7-10.4 [facility] ([place]) Comment on above: Performed By: #### A UNRULY, ADIFF, GFR, CBC, BMP ####[address] [address] Chloride [Moles/Vol] 107 mmol/L Normal 98-110 [facility] ([place]) Comment on above: Performed By: #### A UNRULY, ADIFF, GFR, CBC, BMP ####[address] [address] CO2 [Moles/Vol] 23 mmol/L Normal 22-32 [facility] ([place]) Comment on above: Performed By: #### A UNRULY, ADIFF, GFR, CBC, BMP ####[place] [address] Creatinine [Mass/Vol] 0.80 mg/dL Normal 0.50-1.20 [facility] ([place]) Comment on above: Performed By: #### A UNRULY, ADIFF, GFR, CBC, BMP ####[place] [address] Electrolyte Balance 7.0 mEq/L Normal 4.0-15.0 On license of [facility] ([place]) Comment on above: Performed By: #### A UNRULY, ADIFF, GFR, CBC, BMP ####[place] [address] Glucose [Mass/Vol] 82 mg/dL Normal 82-115 [facility] ([place]) Comment on above: Performed By: #### A UNRULY, ADIFF, GFR, CBC, BMP ####[place] [address] Potassium [Moles/Vol] 4.1 mmol/L Normal 3.5-5.0 [facility] ([place]) Comment on above: Performed By: #### A UNRULY, ADIFF, GFR, CBC, BMP ####[place] [address] Sodium [Moles/Vol] 137 mmol/L Normal 136-145 [facility] ([place]) Comment on above: Performed By: #### A UNRULY, ADIFF, GFR, CBC, BMP ####[place] [address] Urea nitrogen [Mass/Vol] 20.0 mg/dL Normal 8.0-22.0 [facility] ([place]) Comment on above: Performed By: #### A UNRULY, ADIFF, GFR, CBC, BMP ####[place] [address] CBCon 08-07-2023 Erythrocyte distribution width (RBC) [Ratio] 15.7 % High 11.5-15.5 [facility] ([place]) Comment on above: Performed By: #### A UNRULY, VALPR, CBC, ADIFF, BMP, GFR, AMM #### [place] [id number] Hematocrit (Bld) [Volume fraction] 31.6 % Low 34.0-46.0 [facility] ([place]) Comment on above: Performed By: #### A UNRULY, VALPR, CBC, ADIFF, BMP, GFR, AMM #### [place] [id number] Hgb 10.8 G/dL Low 12.0-16.0 [facility] ([place]) Comment on above: Performed By: #### A UNRULY, VALPR, CBC, ADIFF, BMP, GFR, AMM #### [place] [phone] MCH (RBC) [Entitic mass] 28.7 pg Normal 27.0-33.0 [facility] ([place]) Comment on above: Performed By: #### A UNRULY, VALPR, CBC, ADIFF, BMP, GFR, AMM #### [place] [id number] MCHC 34.3 G/dL Normal 32.0-36.0 [facility] ([place]) Comment on above: Performed By: #### A UNRULY, VALPR, CBC, ADIFF, BMP, GFR, AMM #### [place] [phone] MCV (RBC) [Entitic vol] 83.7 fL Normal 80.0-99.0 [facility] ([place]) Comment on above: Performed By: #### A UNRULY, VALPR, CBC, ADIFF, BMP, GFR, AMM #### [place] [address] Platelet 267 10 3/mcL Normal 150-450 [facility] ([place]) Comment on above: Performed By: #### A UNRULY, VALPR, CBC, ADIFF, BMP, GFR, AMM #### [place] [phone] Platelet mean volume (Bld) [Entitic vol] 7.5 fL Normal 6.6-10.5 [facility] ([place]) Comment on above: Performed By: #### A UNRULY, VALPR, CBC, ADIFF, BMP, GFR, AMM #### [place] [id number] [place] [address] RBC 3.78 10 6/mcL Low 4.10-5.30 [facility] ([place]) Comment on above: Performed By: #### A UNRULY, VALPR, CBC, ADIFF, BMP, GFR, AMM #### [facility] [address] [place] [address] WBC 12.5 10 3/mcL High 4.5-10.8 [facility] ([place]) Comment on above: Performed By: #### A UNRULY, VALPR, CBC, ADIFF, BMP, GFR, AMM #### [address] [address] [place] MAMMOGRAM SCREENING BILAT ERAL W/TOMOon 08-07-2023 [place] MAMMOGRAM SCREENING BILATERAL W/TOMASZ ORIGINAL FROM: [address] [address] PROCEDURE FOR: NAI HERNANDEZ [facility] [address] [place] [address] Home: PID#: [id number] Exam#: [id number] : 1955 Age: 67 TO: FISH JORDAN APRN [facility] [address] [facility] [address] [place], [place] [address] Fax: NO FAX EXAMINATION: SCREENING DIGITAL BILATERAL [...] addition to annual mammographic screening per the [employer]. I have personally reviewed the [...] 08/07/2023 6:23:16 PM Ordering Provider: FISH JORDAN Gin Pole Operator: MYRTLE HOUSER RT(R)(M)(CT) letter sent: Normal BI-RADS 1 and 2 Mammogram BI-RADS: 2 Benign Normal [facility] ([place]) .Auto Diffon 08-06-2023 Basophil, Absolute 0.1 10 3/mcL Normal 0.0-0.3 [facility] ([place]) Comment on above: Performed By: #### A UNRULY, VALPR, CBC, ADIFF, BMP, GFR, AMM #### [address] [address] Basophils/100 WBC (Bld) 0.6 % Normal 0.0-2.5 [facility] ([place]) Comment on above: Performed By: #### A UNRULY, VALPR, CBC, ADIFF, BMP, GFR, AMM #### [address] [address] Eosinophil, Absolute 0.1 10 3/mcL Normal 0.0-0.7 [facility] ([place]) Comment on above: Performed By: #### A UNRULY, VALPR, CBC, ADIFF, BMP, GFR, AMM #### [address] [address] Eosinophils/100 WBC (Bld) 0.7 % Normal 0.0-6.0 [facility] ([place]) Comment on above: Performed By: #### A UNRULY, VALPR, CBC, ADIFF, BMP, GFR, AMM #### [address] [address] Lymphocyte, Absolute 3.0 10 3/mcL Normal 0.9-4.3 [facility] ([place]) Comment on above: Performed By: #### A UNRULY, VALPR, CBC, ADIFF, BMP, GFR, AMM #### [address] [address] Lymphocytes/100 WBC (Bld) 24.9 % Normal 20.0-40.0 [facility] ([place]) Comment on above: Performed By: #### A UNRULY, VALPR, CBC, ADIFF, BMP, GFR, AMM #### [address] [address] Monocyte, Absolute 1.8 10 3/mcL High 0.1-1.4 [facility] ([place]) Comment on above: Performed By: #### A UNRULY, VALPR, CBC, ADIFF, BMP, GFR, AMM #### [address] [address] Monocytes/100 WBC (Bld) 14.5 % High 2.0-13.0 [facility] ([place]) Comment on above: Performed By: #### A UNRLUY, VALPR, CBC, ADIFF, BMP, GFR, AMM #### [address] [address] Neutrophils/100 WBC (Bld) 59.3 % Normal 50.0-75.0 [facility] ([place]) Comment on above: Performed By: #### A UNRULY, VALPR, CBC, ADIFF, BMP, GFR, AMM #### [address] [address] .GFRon 08-06-2023 GFR Non- >60 Normal [facility] ([place]) Comment on above: Result Comment: GFR Population [...] VALPR, CBC, ADIFF, BMP, GFR, AMM #### [address] [address] GFR >60 Normal [facility] ([place]) Comment on above: Result Comment: GFR Population [...] VALPR, CBC, ADIFF, BMP, GFR, AMM #### [address] [address] .NEUABSon 08-06-2023 Neutrophil, Absolute 7.1 10 3/mcL Normal 2.3-8.1 [facility] ([place]) Comment on above: Performed By: #### A UNRULY, VALPR, CBC, ADIFF, BMP, GFR, AMM #### [address] [address] BMPon 08-06-2023 BUN/Creatinine Ratio 17.7 ratio Normal 10.0-22.0 [facility] ([place]) Comment on above: Performed By: #### A UNRULY, VALPR, CBC, ADIFF, BMP, GFR, AMM #### [address] [address] Calcium [Mass/Vol] 9.4 mg/dL Normal 8.7-10.4 [facility] ([place]) Comment on above: Performed By: #### A UNRULY, VALPR, CBC, ADIFF, BMP, GFR, AMM #### [address] [address] Chloride [Moles/Vol] 102 mmol/L Normal 98-110 [facility] ([place]) Comment on above: Performed By: #### A UNRULY, VALPR, CBC, ADIFF, BMP, GFR, AMM #### [address] [address] CO2 [Moles/Vol] 24 mmol/L Normal 22-32 [facility] ([place]) Comment on above: Performed By: #### A UNRULY, VALPR, CBC, ADIFF, BMP, GFR, AMM #### [address] [address] Creatinine [Mass/Vol] 0.79 mg/dL Normal 0.50-1.20 [facility] ([place]) Comment on above: Performed By: #### A UNRULY, VALPR, CBC, ADIFF, BMP, GFR, AMM #### [address] [address] Electrolyte Balance 8.0 mEq/L Normal 4.0-15.0 On license of [facility] ([place]) Comment on above: Performed By: #### A UNRULY, VALPR, CBC, ADIFF, BMP, GFR, AMM #### [address] [address] Glucose [Mass/Vol] 96 mg/dL Normal 82-115 [facility] ([place]) Comment on above: Performed By: #### A UNRULY, VALPR, CBC, ADIFF, BMP, GFR, AMM #### [place] [phone] Potassium [Moles/Vol] 4.1 mmol/L Normal 3.5-5.0 [facility] ([place]) Comment on above: Performed By: #### A UNRULY, VALPR, CBC, ADIFF, BMP, GFR, AMM #### [place] [address] Sodium [Moles/Vol] 134 mmol/L Low 136-145 [facility] ([place]) Comment on above: Performed By: #### A UNRULY, VALPR, CBC, ADIFF, BMP, GFR, AMM #### [place] [address] Urea nitrogen [Mass/Vol] 14.0 mg/dL Normal 8.0-22.0 [facility] ([place]) Comment on above: Performed By: #### A UNRULY, VALPR, CBC, ADIFF, BMP, GFR, AMM #### [place] [address] CBCon 08-06-2023 Erythrocyte distribution width (RBC) [Ratio] 15.2 % Normal 11.5-15.5 [facility] ([place]) Comment on above: Performed By: #### A UNRULY, VALPR, CBC, ADIFF, BMP, GFR, AMM #### [place] [address] Hematocrit (Bld) [Volume fraction] 32.3 % Low 34.0-46.0 [facility] ([place]) Comment on above: Performed By: #### A UNRULY, VALPR, CBC, ADIFF, BMP, GFR, AMM #### [place] [address] Hgb 11.1 G/dL Low 12.0-16.0 [facility] ([place]) Comment on above: Performed By: #### A UNRULY, VALPR, CBC, ADIFF, BMP, GFR, AMM #### [place] [address] MCH (RBC) [Entitic mass] 28.7 pg Normal 27.0-33.0 [facility] ([place]) Comment on above: Performed By: #### A UNRULY, VALPR, CBC, ADIFF, BMP, GFR, AMM #### [place] [address] MCHC 34.5 G/dL Normal 32.0-36.0 [facility] ([place]) Comment on above: Performed By: #### A UNRULY, VALPR, CBC, ADIFF, BMP, GFR, AMM #### [place] [address] MCV (RBC) [Entitic vol] 83.2 fL Normal 80.0-99.0 [facility] ([place]) Comment on above: Performed By: #### A UNRULY, VALPR, CBC, ADIFF, BMP, GFR, AMM #### [place] [address] Platelet 230 10 3/mcL Normal 150-450 [facility] ([place]) Comment on above: Performed By: #### A UNRULY, VALPR, CBC, ADIFF, BMP, GFR, AMM #### [place] [address] Platelet mean volume (Bld) [Entitic vol] 8.4 fL Normal 6.6-10.5 [facility] ([place]) Comment on above: Performed By: #### A UNRULY, VALPR, CBC, ADIFF, BMP, GFR, AMM #### [place] [address] RBC 3.88 10 6/mcL Low 4.10-5.30 [facility] ([place]) Comment on above: Performed By: #### A UNRULY, VALPR, CBC, ADIFF, BMP, GFR, AMM #### [place] [address] WBC 12.1 10 3/mcL High 4.5-10.8 [facility] ([place]) Comment on above: Performed By: #### A UNRULY, VALPR, CBC, ADIFF, BMP, GFR, AMM #### [place] [address] LABORATORYOrdered By: Keshia Vasquez on 08-06-2023 Osmolality [...] NAURon 08-06-2023 Sodium [Moles/Vol] 64 mmol/L Normal [facility] ([place]) Comment on above: Performed By: #### A UNRULY, VALPR, CBC, ADIFF, BMP, GFR, AMM #### [place] [address] No Panel Informationon 08-05 Microscopic examination of blood, culture Blood Culture: No Growth at 5 days. [facility] OSMOUon 08-06-2023 U Osmolality 568 mOsm/kg Normal 390-1090 [facility] ([place]) Comment on above: Performed By: #### A UNRULY, VALPR, CBC, ADIFF, BMP, GFR, AMM #### [address] [address] SPEon 08-06-2023 SPE Interpretation There is polyclonal hypergammaglobulinem ia. This may be seen in chronic inflammatory or infectious diseases, or in patients receiving intravenous immunoglobulin therapy. Normal [facility] ([place]) Comment on above: Result Comment: Elec tronically Signed by: SELINA CEDILLO 08/06/2023 15:08 EDT Performed By: #### A UNRULY, VALPR, CBC, ADIFF, BMP, GFR, AMM #### [address] [address] Albumin 3.4 G/dL Normal 3.3-5.0 [facility] ([place]) Comment on above: Performed By: #### A UNRULY, VALPR, CBC, ADIFF, BMP, GFR, AMM #### [address] [address] Alpha 1 0.2 G/dL Normal 0.1-0.4 [facility] ([place]) Comment on above: Performed By: #### A UNRULY, VALPR, CBC, ADIFF, BMP, GFR, AMM #### [address] [address] Alpha 2 1.1 G/dL Normal 0.6-1.2 [facility] ([place]) Comment on above: Performed By: #### A UNRULY, VALPR, CBC, ADIFF, BMP, GFR, AMM #### [address] [address] Beta 1.3 G/dL Normal 0.6-1.3 [facility] ([place]) Comment on above: Performed By: #### A UNRULY, VALPR, CBC, ADIFF, BMP, GFR, AMM #### [address] [address] Gamma 2.3 G/dL High 0.7-1.6 [facility] ([place]) Comment on above: Performed By: #### A UNRULY, VALPR, CBC, ADIFF, BMP, GFR, AMM #### [address] [address] UAon 08-06-2023 Color (U) Yellow Normal [facility] ([place]) Comment on above: Performed By: #### A UNRULY, VALPR, CBC, ADIFF, BMP, GFR, AMM #### [place] [address] Glucose (U) [Mass/Vol] Negative Normal Negative [facility] ([place]) Comment on above: Performed By: #### A UNRULY, VALPR, CBC, ADIFF, BMP, GFR, AMM #### [place] [phone] Ketones Ql (U) Trace Normal Neg-Trace [facility] ([place]) Comment on above: Performed By: #### A UNRULY, VALPR, CBC, ADIFF, BMP, GFR, AMM #### [place] [address] UA Appear Clear Normal Clear [facility] ([place]) Comment on above: Performed By: #### A UNRULY, VALPR, CBC, ADIFF, BMP, GFR, AMM #### [address] [address] UA Blood Negative Normal Neg-Trace [facility] ([place]) Comment on above: Performed By: #### A UNRULY, VALPR, CBC, ADIFF, BMP, GFR, AMM #### [place] [phone] UA Leuk Est Small Abnormal Negative [facility] ([place]) Comment on above: Performed By: #### A UNRULY, VALPR, CBC, ADIFF, BMP, GFR, AMM #### [address] [address] UA Nitrite Negative Normal Negative [facility] ([place]) Comment on above: Performed By: #### A UNRULY, VALPR, CBC, ADIFF, BMP, GFR, AMM #### [address] [address] UA pH 6.5 Normal 5.0 - 8.0 [facility] ([place]) Comment on above: Performed By: #### A UNRULY, VALPR, CBC, ADIFF, BMP, GFR, AMM #### [address] [address] UA Protein Negative Normal Negative [facility] ([place]) Comment on above: Performed By: #### A UNRULY, VALPR, CBC, ADIFF, BMP, GFR, AMM #### [address] [address] UA Spec Grav 1.020 Normal 1.006-1.029 [facility] ([place]) Comment on above: Performed By: #### A UNRULY, VALPR, CBC, ADIFF, BMP, GFR, AMM #### [address] [address] UA Specimen Type Clean Catch Normal [facility] ([place]) Comment on above: Performed By: #### A UNRULY, VALPR, CBC, ADIFF, BMP, GFR, AMM #### [address] [address] UA Urobilinogen 1.0 E.U./dL Normal 0.2-1.0 [facility] ([place]) Comment on above: Performed By: #### A UNRULY, VALPR, CBC, ADIFF, BMP, GFR, AMM #### [address] [address] Urobilinogen (U) [Mass/Vol] Negative Normal Neg-Trace [facility] ([place]) Comment on above: Performed By: #### A UNRULY, VALPR, CBC, ADIFF, BMP, GFR, AMM #### [address] [address] UAMICon 08-06-2023 UA RBC Rare Normal 0-2 [facility] ([place]) Comment on above: Performed By: #### A UNRULY, VALPR, CBC, ADIFF, BMP, GFR, AMM #### [address] [address] UA Squam Epithelial 0-2 Normal 0-20 On license of [facility] ([place]) Comment on above: Performed By: #### A UNRULY, VALPR, CBC, ADIFF, BMP, GFR, AMM #### [address] [address] UA Transitional Epithelial 3-5 Normal [facility] ([place]) Comment on above: Performed By: #### A UNRULY, VALPR, CBC, ADIFF, BMP, GFR, AMM #### [address] [address] UA WBC 3-5 Normal 0-5 [facility] ([place]) Comment on above: Performed By: #### A UNRULY, VALPR, CBC, ADIFF, BMP, GFR, AMM #### [address] [address] XR CHEST 1 VIEWon 08-06-2023 XR CHEST [...] 08/06/2023 10:43:49 AM Ordering Provider: BRITT Castro [facility] ([place]) .Auto Diffon 08-05-2023 Basophil, Absolute 0.1 10 3/mcL Normal 0.0-0.3 [facility]) Comment on above: Performed By: #### A DIFF, GFR, OSMOS, CBC, BMP, ANEU ####[address] [address] Basophils/100 WBC (Bld) 0.3 % Normal 0.0-2.5 [facility] ([place]) Comment on above: Performed By: #### A DIFF, GFR, OSMOS, CBC, BMP, ANEU ####[address] [address] Eosinophil, Absolute 0.0 10 3/mcL Normal 0.0-0.7 [facility] ([place]) Comment on above: Performed By: #### A DIFF, GFR, OSMOS, CBC, BMP, ANEU ####[address] [address] Eosinophils/100 WBC (Bld) 0.1 % Normal 0.0-6.0 [facility] ([place]) Comment on above: Performed By: #### A DIFF, GFR, OSMOS, CBC, BMP, ANEU ####[address] [address] Lymphocyte, Absolute 3.3 10 3/mcL Normal 0.9-4.3 [facility] ([place]) Comment on above: Performed By: #### A DIFF, GFR, OSMOS, CBC, BMP, ANEU ####[address] [address] Lymphocytes/100 WBC (Bld) 20.1 % Normal 20.0-40.0 [facility] ([place]) Comment on above: Performed By: #### A DIFF, GFR, OSMOS, CBC, BMP, ANEU ####[address] [address] Monocyte, Absolute 2.2 10 3/mcL High 0.1-1.4 [facility] ([place]) Comment on above: Performed By: #### A DIFF, GFR, OSMOS, CBC, BMP, ANEU ####[address] [address] Monocytes/100 WBC (Bld) 13.4 % High 2.0-13.0 [facility] ([place]) Comment on above: Performed By: #### A DIFF, GFR, OSMOS, CBC, BMP, ANEU ####[address] [address] Neutrophils/100 WBC (Bld) 66.1 % Normal 50.0-75.0 [facility] ([place]) Comment on above: Performed By: #### A DIFF, GFR, OSMOS, CBC, BMP, ANEU ####[address] [address] .GFRon 08-05-2023 GFR >60 Normal [facility] ([place]) Comment on above: Result Comment: GFR Population [...] A DIFF, GFR, OSMOS, CBC, BMP, ANEU ####[address] [address] GFR Non- >60 Normal [facility] ([place]) Comment on above: Result Comment: GFR Population [...] A DIFF, GFR, OSMOS, CBC, BMP, ANEU ####[address] [address] .NEUABSon 08-05-2023 Neutrophil, Absolute 11.0 10 3/mcL High 2.3-8.1 [facility] ([place]) Comment on above: Performed By: #### A DIFF, GFR, OSMOS, CBC, BMP, ANEU ####[address] [address] Gael 08-05-2023 Ammonia 21 mcmol/l Normal 11-32 [facility] ([place]) Comment on above: Performed By: #### A UNRULY, VALPR, CBC, ADIFF, BMP, GFR, AMM #### [address] [address] BMPon 08-05-2023 BUN/Creatinine Ratio 16.9 ratio Normal 10.0-22.0 [facility] ([place]) Comment on above: Performed By: #### A DIFF, GFR, OSMOS, CBC, BMP, ANEU ####[address] [address] Calcium [Mass/Vol] 9.6 mg/dL Normal 8.7-10.4 [facility] ([place]) Comment on above: Performed By: #### A DIFF, GFR, OSMOS, CBC, BMP, ANEU ####[address] [address] Chloride [Moles/Vol] 99 mmol/L Normal 98-110 [facility] ([place]) Comment on above: Performed By: #### A DIFF, GFR, OSMOS, CBC, BMP, ANEU ####[address] [address] CO2 [Moles/Vol] 24 mmol/L Normal 22-32 [facility] ([place]) Comment on above: Performed By: #### A DIFF, GFR, OSMOS, CBC, BMP, ANEU ####[address] [address] Creatinine [Mass/Vol] 0.89 mg/dL Normal 0.50-1.20 [facility] ([place]) Comment on above: Performed By: #### A DIFF, GFR, OSMOS, CBC, BMP, ANEU ####[place] [address] Electrolyte Balance 8.0 mEq/L Normal 4.0-15.0 On license of [facility] ([place]) Comment on above: Performed By: #### A DIFF, GFR, OSMOS, CBC, BMP, ANEU ####[place] [address] Glucose [Mass/Vol] 96 mg/dL Normal 82-115 [facility] ([place]) Comment on above: Performed By: #### A DIFF, GFR, OSMOS, CBC, BMP, ANEU ####[place] [address] Potassium [Moles/Vol] 4.1 mmol/L Normal 3.5-5.0 [facility] ([place]) Comment on above: Performed By: #### A DIFF, GFR, OSMOS, CBC, BMP, ANEU ####[place] [address] Sodium [Moles/Vol] 131 mmol/L Low 136-145 [facility] ([place]) Comment on above: Performed By: #### A DIFF, GFR, OSMOS, CBC, BMP, ANEU ####[place] [address] Urea nitrogen [Mass/Vol] 15.0 mg/dL Normal 8.0-22.0 [facility] ([place]) Comment on above: Performed By: #### A DIFF, GFR, OSMOS, CBC, BMP, ANEU ####[place] [address] CBCon 08-05-2023 Erythrocyte distribution width (RBC) [Ratio] 15.1 % Normal 11.5-15.5 [facility] ([place]) Comment on above: Performed By: #### A DIFF, GFR, OSMOS, CBC, BMP, ANEU ####[place] [address] Hematocrit (Bld) [Volume fraction] 31.6 % Low 34.0-46.0 [facility] ([place]) Comment on above: Performed By: #### A DIFF, GFR, OSMOS, CBC, BMP, ANEU ####[place] [address] Hgb 10.7 G/dL Low 12.0-16.0 [facility] ([place]) Comment on above: Performed By: #### A DIFF, GFR, OSMOS, CBC, BMP, ANEU ####[place] [address] MCH (RBC) [Entitic mass] 28.3 pg Normal 27.0-33.0 [facility] ([place]) Comment on above: Performed By: #### A DIFF, GFR, OSMOS, CBC, BMP, ANEU ####[place] [address] MCHC 34.0 G/dL Normal 32.0-36.0 [facility] ([place]) Comment on above: Performed By: #### A DIFF, GFR, OSMOS, CBC, BMP, ANEU ####[place] [address] MCV (RBC) [Entitic vol] 83.2 fL Normal 80.0-99.0 [facility] ([place]) Comment on above: Performed By: #### A DIFF, GFR, OSMOS, CBC, BMP, ANEU ####[place] [address] Platelet 252 10 3/mcL Normal 150-450 [facility] ([place]) Comment on above: Performed By: #### A DIFF, GFR, OSMOS, CBC, BMP, ANEU ####[place] [address] Platelet mean volume (Bld) [Entitic vol] 8.4 fL Normal 6.6-10.5 [facility] ([place]) Comment on above: Performed By: #### A DIFF, GFR, OSMOS, CBC, BMP, ANEU ####[place] [address] RBC 3.80 10 6/mcL Low 4.10-5.30 [facility] ([place]) Comment on above: Performed By: #### A DIFF, GFR, OSMOS, CBC, BMP, ANEU ####[address] [address] WBC 16.6 10 3/mcL High 4.5-10.8 [facility] ([place]) Comment on above: Performed By: #### A DIFF, GFR, OSMOS, CBC, BMP, ANEU ####[address] [address] LABORATORYOrdered By: SYSTEM SYSTEM on 08-05-2023 Ammonia (P) [Moles/Vol] 21 umol/L Normal 11 - 32 mcmol/L AH ADM SS LABORATORYOrdered By: Cheryl Almanzar on 08-05-2023 Osmolality [Osmolality] 275 mosm/kg Normal 275 - 300 mOsm/kg AH Manual Chem SS OSMOSon 08-05-2023 Osmolality [Osmolality] 275 mosm/kg Normal 275-300 [facility] ([place]) Comment on above: Performed By: #### A DIFF, GFR, OSMOS, CBC, BMP, ANEU ####[place] [address] .Auto Diffon 08-04-2023 Basophil, Absolute 0.1 10 3/mcL Normal 0.0-0.2 [facility] ([place]) Comment on above: Performed By: #### A UNRULY, VALPR, CBC, ADIFF, BMP, GFR, AMM #### [address] [address] Basophils/100 WBC (Bld) 0.4 % Normal 0.0-2.5 [facility] ([place]) Comment on above: Performed By: #### A UNRULY, VALPR, CBC, ADIFF, BMP, GFR, AMM #### [address] [address] Eosinophil, Absolute 0.0 10 3/mcL Normal 0.0-0.4 [facility] ([place]) Comment on above: Performed By: #### A UNRULY, VALPR, CBC, ADIFF, BMP, GFR, AMM #### [address] [address] Eosinophils/100 WBC (Bld) 0.0 % Normal 0.0-7.0 [facility] ([place]) Comment on above: Performed By: #### A UNRULY, VALPR, CBC, ADIFF, BMP, GFR, AMM #### [address] [address] Lymphocyte, Absolute 1.9 10 3/mcL Normal 0.8-3.9 [facility] ([place]) Comment on above: Performed By: #### A UNRULY, VALPR, CBC, ADIFF, BMP, GFR, AMM #### [address] [address] Lymphocytes/100 WBC (Bld) 12.1 % Normal 10.0-50.0 [facility] ([place]) Comment on above: Performed By: #### A UNRULY, VALPR, CBC, ADIFF, BMP, GFR, AMM #### [address] [address] Monocyte, Absolute 0.9 10 3/mcL Normal 0.2-1.0 [facility] ([place]) Comment on above: Performed By: #### A UNRULY, VALPR, CBC, ADIFF, BMP, GFR, AMM #### [address] [address] Monocytes/100 WBC (Bld) 5.6 % Normal 1.7-13.0 [facility] ([place]) Comment on above: Performed By: #### A UNRULY, VALPR, CBC, ADIFF, BMP, GFR, AMM #### [address] [address] Neutrophils/100 WBC (Bld) 81.9 % High 37.0-80.0 [facility] ([place]) Comment on above: Performed By: #### A UNRULY, VALPR, CBC, ADIFF, BMP, GFR, AMM #### [address] [address] .GFRon 08-04-2023 GFR 58 ml/min/1.73sqm Normal [facility] ([place]) Comment on above: Result Comment: GFR Population [...] VALPR, CBC, ADIFF, BMP, GFR, AMM #### [address] [address] GFR Non- 48 ml/min/1.73sqm Normal [facility] ([place]) Comment on above: Result Comment: GFR Population [...] VALPR, CBC, ADIFF, BMP, GFR, AMM #### [address] [address] .MDWon 08-04-2023 Monocyte Distribution Width 16.15 Normal 0.00-20.00 [facility] ([place]) Comment on above: Result Comment: For ED adult patients suspected of sepsis, MDW<=20.0 does not rule out sepsis or risk of sepsis Performed By: #### A UNRULY, VALPR, CBC, ADIFF, BMP, GFR, AMM #### [address] [address] .NEUABSon 08-04-2023 Neutrophil, Absolute 12.9 10 3/mcL High 2.9-6.2 [facility] ([place]) Comment on above: Performed By: #### A UNRULY, VALPR, CBC, ADIFF, BMP, GFR, AMM #### [address] [address] APTTon 08-04-2023 aPTT Coag (Bld) [Time] 28.3 s Normal 25.0-35.0 [facility] ([place]) Comment on above: Result Comment: For Heparin anticoagulation therapy, the recommended therapeutic range is: 50.6-87.4 seconds. Patients on heparin therapy may have an extreme result. Performed By: #### A UNRULY, VALPR, CBC, ADIFF, BMP, GFR, AMM #### [address] [address] Heparin dose (APTT) Unknown Normal On license of [facility] ([place]) Comment on above: Performed By: #### A UNRULY, VALPR, CBC, ADIFF, BMP, GFR, AMM #### [address] [address] BD BONE DENSITY DEXA AXIAL S KELETONon [...] by: Kaila Gama MD Preliminary Report By: Kaial Gama MD Electronically signed By Kaila Gama MD Dictated Date: 08/04/2023 12:36:11 PM Prelim Date: 08/04/2023 12:37:50 PM Sign Date: 08/04/2023 12:37:50 PM Ordering Provider: FISH JORDAN Normal [facility] ([place]) BMPon 08-04-2023 BUN/Creatinine Ratio 14 ratio Normal 7-27 [facility]) Comment on above: Performed By: #### A UNRULY, VALPR, CBC, ADIFF, BMP, GFR, AMM #### [address] [address] Calcium [Mass/Vol] 8.6 mg/dL Normal 8.4-10.2 [facility] ([place]) Comment on above: Performed By: #### A UNRULY, VALPR, CBC, ADIFF, BMP, GFR, AMM #### [address] [address] Chloride [Moles/Vol] 94 mmol/L Low 98-107 [facility]) Comment on above: Performed By: #### A UNRULY, VALPR, CBC, ADIFF, BMP, GFR, AMM #### [address] [address] CO2 [Moles/Vol] 23 mmol/L Normal 23-31 [facility] ([place]) Comment on above: Performed By: #### A UNRULY, VALPR, CBC, ADIFF, BMP, GFR, AMM #### [address] [address] Creatinine [Mass/Vol] 1.14 mg/dL High 0.55-1.02 [facility] ([place]) Comment on above: Performed By: #### A UNRULY, VALPR, CBC, ADIFF, BMP, GFR, AMM #### [address] [address] Electrolyte Balance 13.0 mEq/L Normal 4.0-15.0 On license of [facility] ([place]) Comment on above: Performed By: #### A UNRULY, VALPR, CBC, ADIFF, BMP, GFR, AMM #### [address] [address] Glucose [Mass/Vol] 134 mg/dL High 80-115 [facility] ([place]) Comment on above: Performed By: #### A UNRULY, VALPR, CBC, ADIFF, BMP, GFR, AMM #### [address] [address] Potassium [Moles/Vol] 4.3 mmol/L Normal 3.5-5.1 [facility] ([place]) Comment on above: Performed By: #### A UNRULY, VALPR, CBC, ADIFF, BMP, GFR, AMM #### [address] [address] Sodium [Moles/Vol] 130 mmol/L Low 136-145 [facility] ([place]) Comment on above: Performed By: #### A UNRULY, VALPR, CBC, ADIFF, BMP, GFR, AMM #### [address] [address] Urea nitrogen [Mass/Vol] 16 mg/dL Normal 7-18 [facility] ([place]) Comment on above: Performed By: #### A UNRULY, VALPR, CBC, ADIFF, BMP, GFR, AMM #### [address] [address] CBCon 08-04-2023 Erythrocyte distribution width (RBC) [Ratio] 15.1 % High 11.5-14.5 [facility] ([place]) Comment on above: Performed By: #### A UNRULY, VALPR, CBC, ADIFF, BMP, GFR, AMM #### [address] [address] Hematocrit (Bld) [Volume fraction] 32.3 % Low 37.0-47.0 [facility] ([place]) Comment on above: Performed By: #### A UNRULY, VALPR, CBC, ADIFF, BMP, GFR, AMM #### [place] [address] Hgb 11.1 G/dL Low 12.0-16.0 [facility] ([place]) Comment on above: Performed By: #### A UNRULY, VALPR, CBC, ADIFF, BMP, GFR, AMM #### [place] [address] MCH (RBC) [Entitic mass] 28.2 pg Normal 27.0-31.2 [facility] ([place]) Comment on above: Performed By: #### A UNRULY, VALPR, CBC, ADIFF, BMP, GFR, AMM #### [place] [address] MCHC 34.4 G/dL Normal 33.0-37.0 [facility] ([place]) Comment on above: Performed By: #### A UNRULY, VALPR, CBC, ADIFF, BMP, GFR, AMM #### [place] [address] MCV (RBC) [Entitic vol] 82.1 fL Normal 80.0-94.0 [facility] ([place]) Comment on above: Performed By: #### A UNRULY, VALPR, CBC, ADIFF, BMP, GFR, AMM #### [place] [address] Platelet 243 10 3/mcL Normal 130-400 [facility] ([place]) Comment on above: Performed By: #### A UNRULY, VALPR, CBC, ADIFF, BMP, GFR, AMM #### [place] [address] Platelet mean volume (Bld) [Entitic vol] 7.0 fL Low 7.4-10.4 [facility] ([place]) Comment on above: Performed By: #### A UNRULY, VALPR, CBC, ADIFF, BMP, GFR, AMM #### [place] [address] RBC 3.93 10 6/mcL Low 4.20-5.40 [facility] ([place]) Comment on above: Performed By: #### A UNRULY, VALPR, CBC, ADIFF, BMP, GFR, AMM #### [place] [address] [place] [address] WBC 15.8 10 3/mcL High 4.6-10.8 [facility] ([place]) Comment on above: Performed By: #### A UNRULY, VALPR, CBC, ADIFF, BMP, GFR, AMM #### [place] [address] [place] [address] [address] ANGIOGRAPHY HEAD W/ CONTR Felipe 08-04-2023 [...] 08/04/2023 3:33:32 PM Ordering Provider: AIDEN Castro [facility] ([place]) CT ANGIOGRAPHY NECK W/CONTRA STon 08-04-2023 CT [...] Date: 08/04/2023 3:24:32 PM Ordering Provider: AIDEN [facility] ([place]) CT HEAD OR BRAIN W/O DUANE Lozano 08-04-2023 CT HEAD OR BRAIN W/O CONTRAST [...] Sign Date: 08/04/2023 2:10:24 PM Ordering Provider: [facility] ([place]) LABORATORYOrdered By: Sayda Odonnell on 08-04-2023 aPTT [...] ng/L Male: 0-76 ng/L Testing performed on [employer] using a homogeneous sandwich chemiluminescent immunoassay based on [employer] technology. Urea nitrogen [Mass/Vol] 16 mg/dL Normal [...] 110 mg/dL Normal 82 - 115 mg/dL [facility] 08-04-2023 High Sensitivity Troponin I 16 ng/L Normal 0-51 [facility] ([place]) Comment on above: Result Comment: High Sensitive Troponin I Reference Ranges: Female: 0-51 ng/L Male: 0-76 ng/L Testing performed on [email or web address] using a homogeneous sandwich chemiluminescent immunoassay based on [employer] technology. Performed By: #### A UNRULY, VALPR, CBC, ADIFF, BMP, GFR, AMM #### [address] [address] VALPRon 08-04-2023 LDose Valproic Acid: See eMAR [facility] ([place]) Comment on above: Performed By: #### A UNRULY, VALPR, CBC, ADIFF, BMP, GFR, AMM #### [address] [address] Valproic Acid Lvl 84 mcg/mL Normal 50-100 [facility] ([place]) Comment on above: Performed By: #### A UNRULY, VALPR, CBC, ADIFF, BMP, GFR, AMM #### [place] [id number] XR CHEST 1 VIEWon 08-04-2023 XR CHEST [...] 08/04/2023 3:19:38 PM Ordering Provider: AIDEN [facility] ([place]) .Auto Diffon 08-02-2023 Basophil, Absolute 0.1 10 3/mcL Normal 0.0-0.2 [facility] ([place]) Comment on above: Performed By: #### A UNRULY, VALPR, CBC, ADIFF, BMP, GFR, AMM #### [address] [address] Basophils/100 WBC (Bld) 0.6 % Normal 0.0-2.5 [facility] ([place]) Comment on above: Performed By: #### A UNRULY, VALPR, CBC, ADIFF, BMP, GFR, AMM #### [address] [address] Eosinophil, Absolute 0.2 10 3/mcL Normal 0.0-0.4 [facility] ([place]) Comment on above: Performed By: #### A UNRULY, VALPR, CBC, ADIFF, BMP, GFR, AMM #### [address] [address] Eosinophils/100 WBC (Bld) 1.8 % Normal 0.0-7.0 [facility] ([place]) Comment on above: Performed By: #### A UNRULY, VALPR, CBC, ADIFF, BMP, GFR, AMM #### [address] [address] Lymphocyte, Absolute 3.8 10 3/mcL Normal 0.8-3.9 [facility] ([place]) Comment on above: Performed By: #### A UNRULY, VALPR, CBC, ADIFF, BMP, GFR, AMM #### [address] [address] Lymphocytes/100 WBC (Bld) 33.5 % Normal 10.0-50.0 [facility] ([place]) Comment on above: Performed By: #### A UNRULY, VALPR, CBC, ADIFF, BMP, GFR, AMM #### [address] [address] Monocyte, Absolute 1.6 10 3/mcL High 0.2-1.0 [facility] ([place]) Comment on above: Performed By: #### A UNRULY, VALPR, CBC, ADIFF, BMP, GFR, AMM #### [address] [address] Monocytes/100 WBC (Bld) 13.7 % High 1.7-13.0 [facility] ([place]) Comment on above: Performed By: #### A UNRULY, VALPR, CBC, ADIFF, BMP, GFR, AMM #### [address] [address] Neutrophils/100 WBC (Bld) 50.4 % Normal 37.0-80.0 [facility] ([place]) Comment on above: Performed By: #### A UNRULY, VALPR, CBC, ADIFF, BMP, GFR, AMM #### [address] [address] .GFRon 08-02-2023 GFR Non- 48 ml/min/1.73sqm Normal [facility] ([place]) Comment on above: Result Comment: GFR Population [...] VALPR, CBC, ADIFF, BMP, GFR, AMM #### [address] [address] GFR 58 ml/min/1.73sqm Normal [facility] ([place]) Comment on above: Result Comment: GFR Population [...] VALPR, CBC, ADIFF, BMP, GFR, AMM #### [place] [address] .NEUABSon 08-02-2023 Neutrophil, Absolute 5.7 10 3/mcL Normal 2.9-6.2 [facility] ([place]) Comment on above: Performed By: #### A UNRULY, VALPR, CBC, ADIFF, BMP, GFR, AMM #### [place] [address] .Urinalysis Microscopic (AO) on 08-02-2023 UA RBC None Seen Normal None Seen [facility] ([place]) Comment on above: Performed By: #### A UNRULY, VALPR, CBC, ADIFF, BMP, GFR, AMM #### [place] [address] UA Squam Epithelial None Seen Normal None Seen On license of [facility] ([place]) Comment on above: Performed By: #### A UNRULY, VALPR, CBC, ADIFF, BMP, GFR, AMM #### [place] [address] UA WBC 0-5 Abnormal None Seen [facility] ([place]) Comment on above: Performed By: #### A UNRULY, VALPR, CBC, ADIFF, BMP, GFR, AMM #### [place] [address] [id number] 08-02-2023 Complement C3A 164.0 mg/dL Normal 90.0-170.0 [facility] ([place]) Comment on above: Result Comment: No te - New Reference Range in effect 19 Performed By: #### A UNRULY, VALPR, CBC, ADIFF, BMP, GFR, AMM #### [place] [address] Complement C4A 26.0 mg/dL Normal 16.0-38.0 [facility] ([place]) Comment on above: Performed By: #### A UNRULY, VALPR, CBC, ADIFF, BMP, GFR, AMM #### [place] [address] CBCon 08-02-2023 Erythrocyte distribution width (RBC) [Ratio] 15.2 % High 11.5-14.5 [facility] ([place]) Comment on above: Performed By: #### A UNRULY, VALPR, CBC, ADIFF, BMP, GFR, AMM #### [place] [address] Hematocrit (Bld) [Volume fraction] 34.6 % Low 37.0-47.0 [facility] ([place]) Comment on above: Performed By: #### A UNRULY, VALPR, CBC, ADIFF, BMP, GFR, AMM #### [place] [address] Hgb 11.8 G/dL Low 12.0-16.0 [facility] ([place]) Comment on above: Performed By: #### A UNRULY, VALPR, CBC, ADIFF, BMP, GFR, AMM #### [place] [address] MCH (RBC) [Entitic mass] 28.3 pg Normal 27.0-31.2 [facility] ([place]) Comment on above: Performed By: #### A UNRULY, VALPR, CBC, ADIFF, BMP, GFR, AMM #### [place] [address] MCHC 34.2 G/dL Normal 33.0-37.0 [facility] ([place]) Comment on above: Performed By: #### A UNRULY, VALPR, CBC, ADIFF, BMP, GFR, AMM #### [place] [address] MCV (RBC) [Entitic vol] 82.8 fL Normal 80.0-94.0 [facility] ([place]) Comment on above: Performed By: #### A UNRULY, VALPR, CBC, ADIFF, BMP, GFR, AMM #### [place] [address] Platelet 255 10 3/mcL Normal 130-400 [facility] ([place]) Comment on above: Performed By: #### A UNRULY, VALPR, CBC, ADIFF, BMP, GFR, AMM #### [place] [address] Platelet mean volume (Bld) [Entitic vol] 7.5 fL Normal 7.4-10.4 [facility] ([place]) Comment on above: Performed By: #### A UNRULY, VALPR, CBC, ADIFF, BMP, GFR, AMM #### [place] [address] RBC 4.17 10 6/mcL Low 4.20-5.40 [facility] ([place]) Comment on above: Performed By: #### A UNRULY, VALPR, CBC, ADIFF, BMP, GFR, AMM #### [place] [address] WBC 11.4 10 3/mcL High 4.6-10.8 [facility] ([place]) Comment on above: Performed By: #### A UNRULY, VALPR, CBC, ADIFF, BMP, GFR, AMM #### [place] [address] FEon 08-02-2023 Iron [Mass/Vol] 63 ug/dL Normal 50-170 [facility] ([place]) Comment on above: Performed By: #### A UNRULY, VALPR, CBC, ADIFF, BMP, GFR, AMM #### [place] [address] Lety 08-02-2023 Ferritin [Mass/Vol] 57.0 ng/mL Normal 8.0-252.0 On license of [facility] ([place]) Comment on above: Performed By: #### A UNRULY, VALPR, CBC, ADIFF, BMP, GFR, AMM #### [place] [address] FESon 08-02-2023 Iron Sat 14 % Normal [facility] ([place]) Comment on above: Performed By: #### A UNRULY, VALPR, CBC, ADIFF, BMP, GFR, AMM #### [place] [address] TIBC 453 mcg/dL High 250-450 [facility] ([place]) Comment on above: Performed By: #### A UNRULY, VALPR, CBC, ADIFF, BMP, GFR, AMM #### [facility] [address] [place] [address] LABORATORYOrdered By: Brigitte Tovar on 08-02-2023 Appearance [...] 08-02-2023 PTH, Intact 89.7 pg/mL High 18.5-88.0 [facility] ([place]) Comment on above: Performed By: #### A UNRULY, VALPR, CBC, ADIFF, BMP, GFR, AMM #### [address] [address] RFPon 08-02-2023 Albumin Level 3.4 G/dL Normal 3.4-4.8 [facility] ([place]) Comment on above: Performed By: #### A UNRULY, VALPR, CBC, ADIFF, BMP, GFR, AMM #### [address] [address] BUN/Creatinine Ratio 15 ratio Normal 7-27 [facility] ([place]) Comment on above: Performed By: #### A UNRULY, VALPR, CBC, ADIFF, BMP, GFR, AMM #### [address] [address] Calcium [Mass/Vol] 10.3 mg/dL High 8.4-10.2 [facility] ([place]) Comment on above: Performed By: #### A UNRULY, VALPR, CBC, ADIFF, BMP, GFR, AMM #### [address] [address] Chloride [Moles/Vol] 100 mmol/L Normal 98-107 [facility] ([place]) Comment on above: Performed By: #### A UNRULY, VALPR, CBC, ADIFF, BMP, GFR, AMM #### [address] [address] CO2 [Moles/Vol] 25 mmol/L Normal 23-31 [facility] ([place]) Comment on above: Performed By: #### A UNRULY, VALPR, CBC, ADIFF, BMP, GFR, AMM #### [address] [address] Creatinine [Mass/Vol] 1.14 mg/dL High 0.55-1.02 [facility] ([place]) Comment on above: Performed By: #### A UNRULY, VALPR, CBC, ADIFF, BMP, GFR, AMM #### [address] [address] Electrolyte Balance 12.0 mEq/L Normal 4.0-15.0 On license of [facility] ([place]) Comment on above: Performed By: #### A UNRULY, VALPR, CBC, ADIFF, BMP, GFR, AMM #### [address] [address] Glucose [Mass/Vol] 90 mg/dL Normal 80-115 [facility] ([place]) Comment on above: Performed By: #### A UNRULY, VALPR, CBC, ADIFF, BMP, GFR, AMM #### [address] [address] Phosphate [Mass/Vol] 3.4 mg/dL Normal 2.3-4.1 [facility] ([place]) Comment on above: Performed By: #### A UNRULY, VALPR, CBC, ADIFF, BMP, GFR, AMM #### [address] [address] Potassium [Moles/Vol] 5.0 mmol/L Normal 3.5-5.1 [facility] ([place]) Comment on above: Performed By: #### A UNRULY, VALPR, CBC, ADIFF, BMP, GFR, AMM #### [address] [address] Sodium [Moles/Vol] 137 mmol/L Normal 136-145 [facility] ([place]) Comment on above: Performed By: #### A UNRULY, VALPR, CBC, ADIFF, BMP, GFR, AMM #### [address] [address] Urea nitrogen [Mass/Vol] 17 mg/dL Normal 7-18 [facility] ([place]) Comment on above: Performed By: #### A UNRULY, VALPR, CBC, ADIFF, BMP, GFR, AMM #### [place] [id number] RPCURon 08-02-2023 U Creatinine 69.1 mg/dL Normal 28.0-117.0 [facility] ([place]) Comment on above: Performed By: #### A UNRULY, VALPR, CBC, ADIFF, BMP, GFR, AMM #### [place] [address] U Protein 9 mg/dL Normal 0-11 [facility] ([place]) Comment on above: Performed By: #### A UNRULY, VALPR, CBC, ADIFF, BMP, GFR, AMM #### [place] [address] U Ratio Prot/Creat 0.1 ratio Normal [facility] ([place]) Comment on above: Result Comment: resu lt calculated by rule GL_UR_PROT_NOTCALC_OLD (U Protein/U Creatinine) Performed By: #### A UNRULY, VALPR, CBC, ADIFF, BMP, GFR, AMM #### [place] [id number] SPEon 08-02-2023 Total Protein 8.4 G/dL High 5.7-8.2 [facility] ([place]) Comment on above: Result Comment: No te - New Reference Range in effect 19 Performed By: #### A UNRULY, VALPR, CBC, ADIFF, BMP, GFR, AMM #### [place] [address] UAon 08-02-2023 Color (U) Yellow Normal [facility] ([place]) Comment on above: Performed By: #### A UNRULY, VALPR, CBC, ADIFF, BMP, GFR, AMM #### [place] [address] Glucose (U) [Mass/Vol] Negative Normal Negative [facility] ([place]) Comment on above: Performed By: #### A UNRULY, VALPR, CBC, ADIFF, BMP, GFR, AMM #### [address] [address] Ketones Ql (U) Negative Normal Negative [facility] ([place]) Comment on above: Performed By: #### A UNRULY, VALPR, CBC, ADIFF, BMP, GFR, AMM #### [address] [address] UA Appear Clear Normal Clear [facility] ([place]) Comment on above: Performed By: #### A UNRULY, VALPR, CBC, ADIFF, BMP, GFR, AMM #### [address] [address] UA Blood Negative Normal Negative [facility] ([place]) Comment on above: Performed By: #### A UNRULY, VALPR, CBC, ADIFF, BMP, GFR, AMM #### [address] [address] UA Leuk Est Trace Abnormal Negative [facility] ([place]) Comment on above: Performed By: #### A UNRULY, VALPR, CBC, ADIFF, BMP, GFR, AMM #### [address] [address] UA Nitrite Negative Normal Negative [facility] ([place]) Comment on above: Performed By: #### A UNRULY, VALPR, CBC, ADIFF, BMP, GFR, AMM #### [address] [address] UA pH 7.0 Normal 5.0 - 8.0 [facility] ([place]) Comment on above: Performed By: #### A URNULY, VALPR, CBC, ADIFF, BMP, GFR, AMM #### [place] [id number] UA Protein Negative Normal Negative [facility] ([place]) Comment on above: Performed By: #### A UNRULY, VALPR, CBC, ADIFF, BMP, GFR, AMM #### [place] [id number] UA Spec Grav 1.020 Normal 1.015-1.025 [facility] ([place]) Comment on above: Performed By: #### A UNRULY, VALPR, CBC, ADIFF, BMP, GFR, AMM #### [place] [address] UA Specimen Type Clean Catch Normal [facility] ([place]) Comment on above: Performed By: #### A UNRULY, VALPR, CBC, ADIFF, BMP, GFR, AMM #### [place] [address] UA Urobilinogen 0.2 E.U./dL Normal 0.2-1.0 [facility] ([place]) Comment on above: Performed By: #### A UNRULY, VALPR, CBC, ADIFF, BMP, GFR, AMM #### [place] [address] Urobilinogen (U) [Mass/Vol] Negative Normal Negative [facility] ([place]) Comment on above: Performed By: #### A UNRULY, VALPR, CBC, ADIFF, BMP, GFR, AMM #### [place] [address] URICon 08-02-2023 Uric Acid Lvl 8.6 mg/dL High 2.6-6.2 [facility] ([place]) Comment on above: Performed By: #### A UNRULY, VALPR, CBC, ADIFF, BMP, GFR, AMM #### [place] [address] VIDHon 08-02-2023 Vit. D 25-Hydroxy 92.5 ng/mL Normal [facility] ([place]) Comment on above: Result Comment: Inte rpretive Values Based on Total 25(OH) Vitamin D: Deficient <20 ng/mL Insufficient 20 - <30 ng/mL Sufficient 30-100 ng/mL Performed By: #### A UNRULY, VALPR, CBC, ADIFF, BMP, GFR, AMM #### [place] [address] KEPPRAon 06-21-2023 Levetiracetam Lvl 102.0 Normal [facility] ([place]) Comment on above: Order Comment: WRONG ENCOUNTER DONT CANCEL Performed By: #### A UNRULY, VALPR, CBC, ADIFF, BMP, GFR, AMM #### [place] [address] RENINon 06-21-2023 Renin Activity 30.750 Normal [facility] ([place]) Comment on above: Order Comment: WRONG ENCOUNTER DONT CANCEL Performed By: #### A UNRULY, VALPR, CBC, ADIFF, BMP, GFR, AMM #### [address] [address] LABORATORYOrdered By: Jasmyne Cintron on 06-20-2023 Albumin DL <= 20 mg/L (U) [Mass/Vol] 680 mcg/dL Invalid Interpretation Code AO ADM SS Albumin/Creatinine DL <= 20 mg/L (U) [Mass ratio] 16 mcg/mg Normal 0 - 30 mcg/mg AO ADM SS Creatinine (U) [Mass/Vol] 41.7 mg/dL Normal 28.0 - 117.0 mg/dL AO ADM SS MALBRon 06-20-2023 U Creatinine 41.7 mg/dL Normal 28.0-117.0 [facility] ([place]) Comment on above: Performed By: #### A UNRULY, VALPR, CBC, ADIFF, BMP, GFR, AMM #### [address] [address] U Microalb 680 mcg/dL Normal [facility] ([place]) Comment on above: Performed By: #### A UNRULY, VALPR, CBC, ADIFF, BMP, GFR, AMM #### [address] [address] U Ratio Alb/Cre 16 mcg/mg Normal 0-30 [facility] ([place]) Comment on above: Performed By: #### A UNRULY, VALPR, CBC, ADIFF, BMP, GFR, AMM #### [address] [address] KEPPRAon 06-17-2023 Levetiracetam Lvl Not performed Normal [facility] ([place]) Comment on above: Result Comment: Test not performed. Test cancelled by Healthcare provider after order was submitted to [facility]. Contacted by Viji Carrero at your facility 06.17.2023 Performed At: [facility] [address] [id number] Yan Sanchez MD Ph:[phone] Performed By: #### A UNRULY, VALPR, CBC, ADIFF, BMP, GFR, AMM #### [address] [address] .Auto Diffon 06-15-2023 Basophil, Absolute 0.0 10 3/mcL Normal 0.0-0.2 [facility] ([place]) Comment on above: Performed By: #### A UNRULY, VALPR, CBC, ADIFF, BMP, GFR, AMM #### [address] [address] Basophils/100 WBC (Bld) 0.4 % Normal 0.0-2.5 [facility] ([place]) Comment on above: Performed By: #### A UNRULY, VALPR, CBC, ADIFF, BMP, GFR, AMM #### [address] [address] Eosinophil, Absolute 0.2 10 3/mcL Normal 0.0-0.4 [facility] ([place]) Comment on above: Performed By: #### A UNRULY, VALPR, CBC, ADIFF, BMP, GFR, AMM #### [address] [address] Eosinophils/100 WBC (Bld) 1.6 % Normal 0.0-7.0 [facility] ([place]) Comment on above: Performed By: #### A UNRULY, VALPR, CBC, ADIFF, BMP, GFR, AMM #### [address] [address] Lymphocyte, Absolute 3.1 10 3/mcL Normal 0.8-3.9 [facility] ([place]) Comment on above: Performed By: #### A UNRULY, VALPR, CBC, ADIFF, BMP, GFR, AMM #### [address] [address] Lymphocytes/100 WBC (Bld) 27.5 % Normal 10.0-50.0 [facility] ([place]) Comment on above: Performed By: #### A UNRULY, VALPR, CBC, ADIFF, BMP, GFR, AMM #### [address] [address] Monocyte, Absolute 1.0 10 3/mcL Normal 0.2-1.0 [facility] ([place]) Comment on above: Performed By: #### A UNRULY, VALPR, CBC, ADIFF, BMP, GFR, AMM #### [address] [address] Monocytes/100 WBC (Bld) 8.8 % Normal 1.7-13.0 [facility] ([place]) Comment on above: Performed By: #### A UNRULY, VALPR, CBC, ADIFF, BMP, GFR, AMM #### [address] [id number] Neutrophils/100 WBC (Bld) 61.7 % Normal 37.0-80.0 [facility] ([place]) Comment on above: Performed By: #### A UNRULY, VALPR, CBC, ADIFF, BMP, GFR, AMM #### [address] [address] .GFRon 06-15-2023 GFR Non- 42 ml/min/1.73sqm Normal [facility] ([place]) Comment on above: Result Comment: GFR Population [...] VALPR, CBC, ADIFF, BMP, GFR, AMM #### [address] [address] GFR 51 ml/min/1.73sqm Normal [facility] ([place]) Comment on above: Result Comment: GFR Population [...] VALPR, CBC, ADIFF, BMP, GFR, AMM #### [place] [address] .NEUABSon 06-15-2023 Neutrophil, Absolute 6.9 10 3/mcL High 2.9-6.2 [facility] ([place]) Comment on above: Performed By: #### A UNRULY, VALPR, CBC, ADIFF, BMP, GFR, AMM #### [place] [address] A1Con 06-15-2023 HbA1c (Bld) [Mass fraction] 5.6 % Normal 4.3-6.4 [facility] ([place]) Comment on above: Performed By: #### A UNRULY, VALPR, CBC, ADIFF, BMP, GFR, AMM #### [place] [id number] CBCon 06-15-2023 Erythrocyte distribution width (RBC) [Ratio] 14.9 % High 11.5-14.5 [facility] ([place]) Comment on above: Performed By: #### A UNRULY, VALPR, CBC, ADIFF, BMP, GFR, AMM #### [place] [address] Hematocrit (Bld) [Volume fraction] 34.8 % Low 37.0-47.0 [facility] ([place]) Comment on above: Performed By: #### A UNRULY, VALPR, CBC, ADIFF, BMP, GFR, AMM #### [place] [address] Hgb 11.7 G/dL Low 12.0-16.0 [facility] ([place]) Comment on above: Performed By: #### A UNRULY, VALPR, CBC, ADIFF, BMP, GFR, AMM #### [place] [address] MCH (RBC) [Entitic mass] 28.3 pg Normal 27.0-31.2 [facility] ([place]) Comment on above: Performed By: #### A UNRULY, VALPR, CBC, ADIFF, BMP, GFR, AMM #### [place] [address] MCHC 33.6 G/dL Normal 33.0-37.0 [facility] ([place]) Comment on above: Performed By: #### A UNRULY, VALPR, CBC, ADIFF, BMP, GFR, AMM #### [place] [address] MCV (RBC) [Entitic vol] 84.3 fL Normal 80.0-94.0 [facility] ([place]) Comment on above: Performed By: #### A UNRULY, VALPR, CBC, ADIFF, BMP, GFR, AMM #### [place] [address] Platelet 290 10 3/mcL Normal 130-400 [facility] ([place]) Comment on above: Performed By: #### A UNRULY, VALPR, CBC, ADIFF, BMP, GFR, AMM #### [place] [address] Platelet mean volume (Bld) [Entitic vol] 8.7 fL Normal 7.4-10.4 [facility] ([place]) Comment on above: Performed By: #### A UNRULY, VALPR, CBC, ADIFF, BMP, GFR, AMM #### [place] [address] RBC 4.13 10 6/mcL Low 4.20-5.40 [facility] ([place]) Comment on above: Performed By: #### A UNRULY, VALPR, CBC, ADIFF, BMP, GFR, AMM #### [address] [address] WBC 11.2 10 3/mcL High 4.6-10.8 [facility] ([place]) Comment on above: Performed By: #### A UNRULY, VALPR, CBC, ADIFF, BMP, GFR, AMM #### [address] [address] CMPon 06-15-2023 Albumin Level 3.1 G/dL Low 3.4-4.8 [facility] ([place]) Comment on above: Performed By: #### A UNRULY, VALPR, CBC, ADIFF, BMP, GFR, AMM #### [address] [address] Albumin/Globulin [Mass ratio] 0.7 {ratio} Low 1.1-2.5 [facility] ([place]) Comment on above: Performed By: #### A UNRULY, VALPR, CBC, ADIFF, BMP, GFR, AMM #### [place] [id number] ALP [Catalytic activity/Vol] 70 U/L Normal 40-135 [facility] ([place]) Comment on above: Performed By: #### A UNRULY, VALPR, CBC, ADIFF, BMP, GFR, AMM #### [place] [id number] ALT [Catalytic activity/Vol] 30 U/L Normal 14-59 [facility] ([place]) Comment on above: Performed By: #### A UNRULY, VALPR, CBC, ADIFF, BMP, GFR, AMM #### [address] [address] AST [Catalytic activity/Vol] 31 U/L Normal 10-40 [facility] ([place]) Comment on above: Performed By: #### A UNRULY, VALPR, CBC, ADIFF, BMP, GFR, AMM #### [place] [id number] Bili Total 0.2 mg/dL Normal 0.2-1.0 [facility] ([place]) Comment on above: Result Comment: Use of this assay is not recommended for patients undergoing treatment with eltrombopag due to the potential for falsely elevated results. Performed By: #### A UNRULY, VALPR, CBC, ADIFF, BMP, GFR, AMM #### [address] [address] BUN/Creatinine Ratio 17 ratio Normal 7-27 [facility] ([place]) Comment on above: Performed By: #### A UNRULY, VALPR, CBC, ADIFF, BMP, GFR, AMM #### [address] [address] Calcium [Mass/Vol] 10.1 mg/dL Normal 8.4-10.2 [facility] ([place]) Comment on above: Performed By: #### A UNRULY, VALPR, CBC, ADIFF, BMP, GFR, AMM #### [address] [address] Chloride [Moles/Vol] 99 mmol/L Normal 98-107 [facility] ([place]) Comment on above: Performed By: #### A UNRULY, VALPR, CBC, ADIFF, BMP, GFR, AMM #### [place] [phone] CO2 [Moles/Vol] 24 mmol/L Normal 23-31 [facility] ([place]) Comment on above: Performed By: #### A UNRULY, VALPR, CBC, ADIFF, BMP, GFR, AMM #### [address] [address] Creatinine [Mass/Vol] 1.28 mg/dL High 0.55-1.02 [facility] ([place]) Comment on above: Performed By: #### A UNRULY, VALPR, CBC, ADIFF, BMP, GFR, AMM #### [address] [address] Electrolyte Balance 14.0 mEq/L Normal 4.0-15.0 On license of [facility] ([place]) Comment on above: Performed By: #### A UNRULY, VALPR, CBC, ADIFF, BMP, GFR, AMM #### [address] [address] Globulin 4.7 G/dL Normal [facility] ([place]) Comment on above: Performed By: #### A UNRULY, VALPR, CBC, ADIFF, BMP, GFR, AMM #### [address] [address] Glucose [Mass/Vol] 167 mg/dL High 80-115 [facility] ([place]) Comment on above: Performed By: #### A UNRULY, VALPR, CBC, ADIFF, BMP, GFR, AMM #### [address] [address] Potassium [Moles/Vol] 3.6 mmol/L Normal 3.5-5.1 [facility] ([place]) Comment on above: Performed By: #### A UNRULY, VALPR, CBC, ADIFF, BMP, GFR, AMM #### [place] [phone] Sodium [Moles/Vol] 137 mmol/L Normal 136-145 [facility] ([place]) Comment on above: Performed By: #### A UNRULY, VALPR, CBC, ADIFF, BMP, GFR, AMM #### [address] [address] Total Protein 7.8 G/dL Normal 6.4-8.2 [facility] ([place]) Comment on above: Performed By: #### A UNRULY, VALPR, CBC, ADIFF, BMP, GFR, AMM #### [place] [id number] Urea nitrogen [Mass/Vol] 22 mg/dL High 7-18 [facility] ([place]) Comment on above: Performed By: #### A UNRULY, VALPR, CBC, ADIFF, BMP, GFR, AMM #### [address] [address] LIPIDon 06-15-2023 Cholesterol [Mass/Vol] 122 mg/dL Normal 0-200 [facility] ([place]) Comment on above: Result Comment: Chol esterol Reference Interval: Less than 200 Desirable 200-239 Borderline high risk 240 and above High risk Performed By: #### A UNRULY, VALPR, CBC, ADIFF, BMP, GFR, AMM #### [address] [address] Cholesterol in HDL [Mass/Vol] 37 mg/dL Low 40-60 [facility] ([place]) Comment on above: Performed By: #### A UNRULY, VALPR, CBC, ADIFF, BMP, GFR, AMM #### [place] [address] Cholesterol in LDL [Mass/Vol] 31 mg/dL Normal 0-130 [facility] ([place]) Comment on above: Performed By: #### A UNRULY, VALPR, CBC, ADIFF, BMP, GFR, AMM #### [place] [address] Triglyceride [Mass/Vol] 270 mg/dL High 0-150 [facility] ([place]) Comment on above: Performed By: #### A UNRULY, VALPR, CBC, ADIFF, BMP, GFR, AMM #### [place] [address] PTHon 06-15-2023 PTH, Intact 52.9 pg/mL Normal 18.5-88.0 [facility] ([place]) Comment on above: Performed By: #### A UNRULY, VALPR, CBC, ADIFF, BMP, GFR, AMM #### [place] [address] VALPRon 06-15-2023 LDose Valproic Acid: Unknown Normal [facility] ([place]) Comment on above: Performed By: #### A UNRULY, VALPR, CBC, ADIFF, BMP, GFR, AMM #### [place] [address] Valproic Acid Lvl 130 mcg/mL High 50-100 [facility] ([place]) Comment on above: Performed By: #### A UNRULY, VALPR, CBC, ADIFF, BMP, GFR, AMM #### [place] [address] VIDHon 06-15-2023 Vit. D 25-Hydroxy 87.8 ng/mL Normal [facility] ([place]) Comment on above: Result Comment: Inte rpretive Values Based on Total 25(OH) Vitamin D: Deficient <20 ng/mL Insufficient 20 - <30 ng/mL Sufficient 30-100 ng/mL Performed By: #### A UNRULY, VALPR, CBC, ADIFF, BMP, GFR, AMM #### [address] [address] .Auto Diffon 06-14-2023 Basophil, Absolute 0.0 10 3/mcL Normal 0.0-0.2 [facility] ([place]) Comment on above: Performed By: #### A UNRULY, VALPR, CBC, ADIFF, BMP, GFR, AMM #### [address] [address] Basophils/100 WBC (Bld) 0.4 % Normal 0.0-2.5 [facility] ([place]) Comment on above: Performed By: #### A UNRULY, VALPR, CBC, ADIFF, BMP, GFR, AMM #### [address] [address] Eosinophil, Absolute 0.2 10 3/mcL Normal 0.0-0.4 [facility] ([place]) Comment on above: Performed By: #### A UNRULY, VALPR, CBC, ADIFF, BMP, GFR, AMM #### [address] [address] Eosinophils/100 WBC (Bld) 1.6 % Normal 0.0-7.0 [facility] ([place]) Comment on above: Performed By: #### A UNRULY, VALPR, CBC, ADIFF, BMP, GFR, AMM #### [address] [address] Lymphocyte, Absolute 3.1 10 3/mcL Normal 0.8-3.9 [facility] ([place]) Comment on above: Performed By: #### A UNRULY, VALPR, CBC, ADIFF, BMP, GFR, AMM #### [address] [address] Lymphocytes/100 WBC (Bld) 27.5 % Normal 10.0-50.0 [facility] ([place]) Comment on above: Performed By: #### A UNRULY, VALPR, CBC, ADIFF, BMP, GFR, AMM #### [address] [address] Monocyte, Absolute 1.0 10 3/mcL Normal 0.2-1.0 [facility] ([place]) Comment on above: Performed By: #### A UNRULY, VALPR, CBC, ADIFF, BMP, GFR, AMM #### [address] [address] Monocytes/100 WBC (Bld) 8.8 % Normal 1.7-13.0 [facility] ([place]) Comment on above: Performed By: #### A UNRULY, VALPR, CBC, ADIFF, BMP, GFR, AMM #### [address] [address] Neutrophils/100 WBC (Bld) 61.7 % Normal 37.0-80.0 [facility] ([place]) Comment on above: Performed By: #### A UNRULY, VALPR, CBC, ADIFF, BMP, GFR, AMM #### [address] [address] .GFRon 06-14-2023 GFR 51 ml/min/1.73sqm Normal [facility] ([place]) Comment on above: Result Comment: GFR Population [...] VALPR, CBC, ADIFF, BMP, GFR, AMM #### [address] [address] GFR Non- 42 ml/min/1.73sqm Normal [facility] ([place]) Comment on above: Result Comment: GFR Population [...] VALPR, CBC, ADIFF, BMP, GFR, AMM #### [place] [address] .NEUABSon 06-14-2023 Neutrophil, Absolute 6.9 10 3/mcL High 2.9-6.2 [facility] ([place]) Comment on above: Performed By: #### A UNRULY, VALPR, CBC, ADIFF, BMP, GFR, AMM #### [place] [address] A1Con 06-14-2023 HbA1c (Bld) [Mass fraction] 5.6 % Normal 4.3-6.4 [facility] ([place]) Comment on above: Performed By: #### A UNRULY, VALPR, CBC, ADIFF, BMP, GFR, AMM #### [place] [id number] CBCon 06-14-2023 Erythrocyte distribution width (RBC) [Ratio] 14.9 % High 11.5-14.5 [facility] ([place]) Comment on above: Performed By: #### A UNRULY, VALPR, CBC, ADIFF, BMP, GFR, AMM #### [place] [address] Hematocrit (Bld) [Volume fraction] 34.8 % Low 37.0-47.0 [facility] ([place]) Comment on above: Performed By: #### A UNRULY, VALPR, CBC, ADIFF, BMP, GFR, AMM #### [place] [address] Hgb 11.7 G/dL Low 12.0-16.0 [facility] ([place]) Comment on above: Performed By: #### A UNRULY, VALPR, CBC, ADIFF, BMP, GFR, AMM #### [place] [address] MCH (RBC) [Entitic mass] 28.3 pg Normal 27.0-31.2 [facility] ([place]) Comment on above: Performed By: #### A UNRULY, VALPR, CBC, ADIFF, BMP, GFR, AMM #### [place] [address] MCHC 33.6 G/dL Normal 33.0-37.0 [facility] ([place]) Comment on above: Performed By: #### A UNRULY, VALPR, CBC, ADIFF, BMP, GFR, AMM #### [place] [address] MCV (RBC) [Entitic vol] 84.3 fL Normal 80.0-94.0 [facility] ([place]) Comment on above: Performed By: #### A UNRULY, VALPR, CBC, ADIFF, BMP, GFR, AMM #### [place] [address] Platelet 290 10 3/mcL Normal 130-400 [facility] ([place]) Comment on above: Performed By: #### A UNRULY, VALPR, CBC, ADIFF, BMP, GFR, AMM #### [place] [address] Platelet mean volume (Bld) [Entitic vol] 8.7 fL Normal 7.4-10.4 [facility] ([place]) Comment on above: Performed By: #### A UNRULY, VALPR, CBC, ADIFF, BMP, GFR, AMM #### [place] [address] RBC 4.13 10 6/mcL Low 4.20-5.40 [facility] ([place]) Comment on above: Performed By: #### A UNRULY, VALPR, CBC, ADIFF, BMP, GFR, AMM #### [address] [address] WBC 11.2 10 3/mcL High 4.6-10.8 [facility] ([place]) Comment on above: Performed By: #### A UNRULY, VALPR, CBC, ADIFF, BMP, GFR, AMM #### [address] [address] CMPon 06-14-2023 Albumin Level 3.1 G/dL Low 3.4-4.8 [facility] ([place]) Comment on above: Performed By: #### A UNRULY, VALPR, CBC, ADIFF, BMP, GFR, AMM #### [address] [address] Albumin/Globulin [Mass ratio] 0.7 {ratio} Low 1.1-2.5 [facility] ([place]) Comment on above: Performed By: #### A UNRULY, VALPR, CBC, ADIFF, BMP, GFR, AMM #### [place] [id number] ALP [Catalytic activity/Vol] 70 U/L Normal 40-135 [facility] ([place]) Comment on above: Performed By: #### A UNRULY, VALPR, CBC, ADIFF, BMP, GFR, AMM #### [place] [phone] ALT [Catalytic activity/Vol] 30 U/L Normal 14-59 [facility] ([place]) Comment on above: Performed By: #### A UNRULY, VALPR, CBC, ADIFF, BMP, GFR, AMM #### [address] [address] AST [Catalytic activity/Vol] 31 U/L Normal 10-40 [facility] ([place]) Comment on above: Performed By: #### A UNRULY, VALPR, CBC, ADIFF, BMP, GFR, AMM #### [place] [id number] Bili Total 0.2 mg/dL Normal 0.2-1.0 [facility] ([place]) Comment on above: Result Comment: Use of this assay is not recommended for patients undergoing treatment with eltrombopag due to the potential for falsely elevated results. Performed By: #### A UNRULY, VALPR, CBC, ADIFF, BMP, GFR, AMM #### [address] [address] BUN/Creatinine Ratio 17 ratio Normal 7-27 [facility] ([place]) Comment on above: Performed By: #### A UNRULY, VALPR, CBC, ADIFF, BMP, GFR, AMM #### [address] [address] Calcium [Mass/Vol] 10.1 mg/dL Normal 8.4-10.2 [facility] ([place]) Comment on above: Performed By: #### A UNRULY, VALPR, CBC, ADIFF, BMP, GFR, AMM #### [address] [address] Chloride [Moles/Vol] 99 mmol/L Normal 98-107 [facility] ([place]) Comment on above: Performed By: #### A UNRULY, VALPR, CBC, ADIFF, BMP, GFR, AMM #### [place] [phone] CO2 [Moles/Vol] 24 mmol/L Normal 23-31 [facility] ([place]) Comment on above: Performed By: #### A UNRULY, VALPR, CBC, ADIFF, BMP, GFR, AMM #### [address] [address] Creatinine [Mass/Vol] 1.28 mg/dL High 0.55-1.02 [facility] ([place]) Comment on above: Performed By: #### A UNRULY, VALPR, CBC, ADIFF, BMP, GFR, AMM #### [address] [address] Electrolyte Balance 14.0 mEq/L Normal 4.0-15.0 On license of [facility] ([place]) Comment on above: Performed By: #### A UNRULY, VALPR, CBC, ADIFF, BMP, GFR, AMM #### [address] [address] Globulin 4.7 G/dL Normal [facility] ([place]) Comment on above: Performed By: #### A UNRULY, VALPR, CBC, ADIFF, BMP, GFR, AMM #### [address] [address] Glucose [Mass/Vol] 167 mg/dL High 80-115 [facility] ([place]) Comment on above: Performed By: #### A UNRULY, VALPR, CBC, ADIFF, BMP, GFR, AMM #### [address] [address] Potassium [Moles/Vol] 3.6 mmol/L Normal 3.5-5.1 [facility] ([place]) Comment on above: Performed By: #### A UNRULY, VALPR, CBC, ADIFF, BMP, GFR, AMM #### [place] [phone] Sodium [Moles/Vol] 137 mmol/L Normal 136-145 [facility] ([place]) Comment on above: Performed By: #### A UNRULY, VALPR, CBC, ADIFF, BMP, GFR, AMM #### [place] [id number] Total Protein 7.8 G/dL Normal 6.4-8.2 [facility] ([place]) Comment on above: Performed By: #### A UNRULY, VALPR, CBC, ADIFF, BMP, GFR, AMM #### [place] [address] Urea nitrogen [Mass/Vol] 22 mg/dL High 7-18 [facility] ([place]) Comment on above: Performed By: #### A UNRULY, VALPR, CBC, ADIFF, BMP, GFR, AMM #### [address] [address] LABORATORYOrdered By: Sayda Odonnell on 06-14-2023 25-hydroxyvitamin [...] 06-14-2023 Cholesterol [Mass/Vol] 122 mg/dL Normal 0-200 [facility] ([place]) Comment on above: Result Comment: Chol esterol Reference Interval: Less than 200 Desirable 200-239 Borderline high risk 240 and above High risk Performed By: #### A UNRULY, VALPR, CBC, ADIFF, BMP, GFR, AMM #### [address] [address] Cholesterol in HDL [Mass/Vol] 37 mg/dL Low 40-60 [facility] ([place]) Comment on above: Performed By: #### A UNRULY, VALPR, CBC, ADIFF, BMP, GFR, AMM #### [address] [address] Cholesterol in LDL [Mass/Vol] 31 mg/dL Normal 0-130 [facility] ([place]) Comment on above: Performed By: #### A UNRULY, VALPR, CBC, ADIFF, BMP, GFR, AMM #### [address] [address] Triglyceride [Mass/Vol] 270 mg/dL High 0-150 [facility] ([place]) Comment on above: Performed By: #### A UNRULY, VALPR, CBC, ADIFF, BMP, GFR, AMM #### [address] [address] VALPRon 06-14-2023 LDose Valproic Acid: Unknown Normal [facility] ([place]) Comment on above: Performed By: #### A UNRULY, VALPR, CBC, ADIFF, BMP, GFR, AMM #### [address] [address] Valproic Acid Lvl 130 mcg/mL High 50-100 [facility] ([place]) Comment on above: Performed By: #### A UNRULY, VALPR, CBC, ADIFF, BMP, GFR, AMM #### [address] [address] VIDHon 06-14-2023 Vit. D 25-Hydroxy 87.8 ng/mL Normal [facility] ([place]) Comment on above: Result Comment: Inte rpretive Values Based on Total 25(OH) Vitamin D: Deficient <20 ng/mL Insufficient 20 - <30 ng/mL Sufficient 30-100 ng/mL Performed By: #### A UNRULY, VALPR, CBC, ADIFF, BMP, GFR, AMM #### [place] [address] [place] [address] LABORATORYOrdered By: Jasmyne Foster on 06-13-2023 25-hydroxyvitamin [...] - 88.0 pg/mL ADM SS LABORATORYOrdered By: LABContact At Once!R P CONTRIBUTOR_SYSTEM on 06-13-2023 Levetiracetam Lvl (LC) Not performed Invalid Interpretation Code AO Sendouts Comment on above: Result Comment: Test not performed. Test cancelled by Healthcare provider after order was submitted to [facility]. Contacted by Viji Carrero at your facility 06.17.2023 Performed At: [facility] [address] [id number] Yan Sanchez MD Ph:[phone] RENINDon 12-18-2022 Direct Renin 187.7 pg/mL High 3.6-81.6 [facility] ([place]) Comment on above: Result Comment: A ra [...] Age >=41 years: 2.5-45.1 pg/mL Performed By: [facility] [employer] [address] [place] [address] Assistant Women'S Rowing Coach: Rigoberto Burgos III, M.D. CLIA#: [id number] Performed By: #### A UNRULY, VALPR, CBC, ADIFF, BMP, GFR, AMM #### [place] [address] Patient Upright or Supine Upright Normal [facility] ([place]) Comment on above: Result Comment: Perf ormed By: [facility] [employer] [address] [place] [address] Assistant Women'S Rowing Coach: Rigoberto Burgos III, M.D. CLIA#: [id number] Performed By: #### A UNRULY, VALPR, CBC, ADIFF, BMP, GFR, AMM #### [place] [address] KEPPRAon 12-14-2022 Levetiracetam Lvl 99.1 UG/ML High 12.0-46.0 [facility] ([place]) Comment on above: Result Comment: This test [...] developed and its performance characteristics determined by [facility]'s [facility] [place] (-[facility]). It has not been cleared or approved by the FDA. [facility] is regulated under CLIA as qualified to perform high-complexity testing. This test is used for clinical purposes. It should not be regarded as investigational or for research. Performed By: [facility] [employer] [address] [place], [place] [id number] Assistant Women'S Rowing Coach: Rigoberto Burgos III, M.D. CLIA#: [id number] Performed By: #### A UNRULY, VALPR, CBC, ADIFF, BMP, GFR, AMM #### [place] [address] PTHon 12-14-2022 PTH, Intact 62.8 pg/mL Normal 18.5-88.0 [facility] ([place]) Comment on above: Performed By: #### A UNRULY, VALPR, CBC, ADIFF, BMP, GFR, AMM #### [place] [address] .Auto Diffon 12-13-2022 Basophil, Absolute 0.1 10 3/mcL Normal 0.0-0.2 [facility] ([place]) Comment on above: Performed By: #### T SH, LIPID, GFR, ANEU, CMP, PTH, A1C, CBC, VIDH, ADIFF ####[place] [address]#### VALPR, LEVET, RENIND ####[facility] [id number] [place], [place] [address] Basophils/100 WBC (Bld) 0.7 % Normal 0.0-2.5 [facility] ([place]) Comment on above: Performed By: #### T SH, LIPID, GFR, ANEU, CMP, PTH, A1C, CBC, VIDH, ADIFF ####[place] [address]#### VALPR, LEVET, RENIND ####[facility] [place], [place] [address] Eosinophil, Absolute 0.1 10 3/mcL Normal 0.0-0.4 [facility] ([place]) Comment on above: Performed By: #### T SH, LIPID, GFR, ANEU, CMP, PTH, A1C, CBC, VIDH, ADIFF ####[place] [address]#### VALPR, LEVET, RENIND ####[facility] [address] [place], [place] [address] Eosinophils/100 WBC (Bld) 1.1 % Normal 0.0-7.0 [facility] ([place]) Comment on above: Performed By: #### T SH, LIPID, GFR, ANEU, CMP, PTH, A1C, CBC, VIDH, ADIFF ####[place] [address]#### VALPR, LEVET, RENIND ####[address] [place], [place] [address] Lymphocyte, Absolute 3.5 10 3/mcL Normal 0.8-3.9 [facility] ([place]) Comment on above: Performed By: #### T SH, LIPID, GFR, ANEU, CMP, PTH, A1C, CBC, VIDH, ADIFF ####[place] [address]#### VALPR, LEVET, RENIND ####[facility] [address] [place], [place] [address] Lymphocytes/100 WBC (Bld) 32.5 % Normal 10.0-50.0 [facility] ([place]) Comment on above: Performed By: #### T SH, LIPID, GFR, ANEU, CMP, PTH, A1C, CBC, VIDH, ADIFF ####[place] [address]#### VALPR, LEVET, RENIND ####[facility] [address] [place], [place] [address] Monocyte, Absolute 1.3 10 3/mcL High 0.2-1.0 [facility] ([place]) Comment on above: Performed By: #### T SH, LIPID, GFR, ANEU, CMP, PTH, A1C, CBC, VIDH, ADIFF ####[place] [address]#### VALPR, LEVET, RENIND ####[facility] [address] [place], [place] [address] Monocytes/100 WBC (Bld) 12.3 % Normal 1.7-13.0 [facility] ([place]) Comment on above: Performed By: #### T SH, LIPID, GFR, ANEU, CMP, PTH, A1C, CBC, VIDH, ADIFF ####[place] [id number]#### VALPR, LEVET, RENIND ####[facility] [place], [place] [address] Neutrophils/100 WBC (Bld) 53.4 % Normal 37.0-80.0 [facility] ([place]) Comment on above: Performed By: #### T SH, LIPID, GFR, ANEU, CMP, PTH, A1C, CBC, VIDH, ADIFF ####[place] [address]#### VALPR, LEVET, RENIND ####[address] [place], [place] [address] .GFRon 12-13-2022 GFR Non- 47 ml/min/1.73sqm Normal [facility] ([place]) Comment on above: Result Comment: GFR Population [...] VALPR, CBC, ADIFF, BMP, GFR, AMM #### [place] [address] GFR 57 ml/min/1.73sqm Normal [facility] ([place]) Comment on above: Result Comment: GFR Population [...] VALPR, CBC, ADIFF, BMP, GFR, AMM #### [place] [address] .NEUABSon 12-13-2022 Neutrophil, Absolute 5.8 10 3/mcL Normal 2.9-6.2 [facility] ([place]) Comment on above: Performed By: #### T SH, LIPID, GFR, ANEU, CMP, PTH, A1C, CBC, VIDH, ADIFF ####[place] [address]#### VALPR, LEVET, RENIND ####[address] [place], [place] [address] A1Con 12-13-2022 HbA1c (Bld) [Mass fraction] 5.9 % Normal 4.3-6.4 [facility] ([place]) Comment on above: Performed By: #### T SH, LIPID, GFR, ANEU, CMP, PTH, A1C, CBC, VIDH, ADIFF ####[place] [address]#### VALPR, LEVET, RENIND ####Hodan Breauxn[address] [place], [place] [address] CBCon 12-13-2022 Erythrocyte distribution width (RBC) [Ratio] 14.6 % High 11.5-14.5 [facility] ([place]) Comment on above: Performed By: #### T SH, LIPID, GFR, ANEU, CMP, PTH, A1C, CBC, VIDH, ADIFF ####[place] [address]#### VALPR, LEVET, RENIND ####[facility] [address] [place], [place] [address] Hematocrit (Bld) [Volume fraction] 34.5 % Low 37.0-47.0 [facility] ([place]) Comment on above: Performed By: #### T SH, LIPID, GFR, ANEU, CMP, PTH, A1C, CBC, VIDH, ADIFF ####[place] [address]#### VALPR, LEVET, RENIND ####[facility] W[address] [place] [phone] Hgb 11.6 G/dL Low 12.0-16.0 [facility] ([place]) Comment on above: Performed By: #### T SH, LIPID, GFR, ANEU, CMP, PTH, A1C, CBC, VIDH, ADIFF ####[place] [address]#### VALPR, LEVET, RENIND ####[facility] Duife[address]hp[address] [place] [phone] MCH (RBC) [Entitic mass] 27.9 pg Normal 27.0-31.2 [facility] ([place]) Comment on above: Performed By: #### T SH, LIPID, GFR, ANEU, CMP, PTH, A1C, CBC, VIDH, ADIFF ####[place] [address]#### VALPR, LEVET, RENIND ####[facility] Uqi[address] [place] [phone] MCHC 33.7 G/dL Normal 33.0-37.0 [facility] ([place]) Comment on above: Performed By: #### T SH, LIPID, GFR, ANEU, CMP, PTH, A1C, CBC, VIDH, ADIFF ####[place] [address]#### VALPR, LEVET, RENIND ####[facility] Center[facility]njlwcojr8862 [place] [phone] MCV (RBC) [Entitic vol] 82.9 fL Normal 80.0-94.0 [facility] ([place]) Comment on above: Performed By: #### T SH, LIPID, GFR, ANEU, CMP, PTH, A1C, CBC, VIDH, ADIFF ####[place] [address]#### VALPR, LEVET, RENIND ####Hodanquang ElliottSriqandgj1886 [place] [phone] Platelet 261 10 3/mcL Normal 130-400 [facility] ([place]) Comment on above: Performed By: #### T SH, LIPID, GFR, ANEU, CMP, PTH, A1C, CBC, VIDH, ADIFF ####[place] [address]#### VALPR, LEVET, RENIND ####Hodanquang BreauxKogimdjan0397 [place] [address] Platelet mean volume (Bld) [Entitic vol] 7.8 fL Normal 7.4-10.4 [facility] ([place]) Comment on above: Performed By: #### T SH, LIPID, GFR, ANEU, CMP, PTH, A1C, CBC, VIDH, ADIFF ####[place] [address]#### VALPR, LEVET, RENIND ####Hodan Pcz[address]rxenq[address] [place] [address] RBC 4.16 10 6/mcL Low 4.20-5.40 [facility] ([place]) Comment on above: Performed By: #### T SH, LIPID, GFR, ANEU, CMP, PTH, A1C, CBC, VIDH, ADIFF ####[place] [address]#### VALPR, LEVET, RENIND ####Hodanquang BreauxIuecrijzf0231 [place] [phone] WBC 10.8 10 3/mcL Normal 4.6-10.8 [facility] ([place]) Comment on above: Performed By: #### T SH, LIPID, GFR, ANEU, CMP, PTH, A1C, CBC, VIDH, ADIFF ####[place] [address]#### VALPR, LEVET, RENIND ####[facility] Otjncjrbm[address] [place] [address]6926 CMPon 12-13-2022 Albumin Level 3.7 G/dL Normal 3.4-4.8 [facility] ([place]) Comment on above: Performed By: #### A UNRULY, VALPR, CBC, ADIFF, BMP, GFR, AMM #### [address] [address] Albumin/Globulin [Mass ratio] 0.8 {ratio} Low 1.1-2.5 [facility] ([place]) Comment on above: Performed By: #### A UNRULY, VALPR, CBC, ADIFF, BMP, GFR, AMM #### [address] [address] ALP [Catalytic activity/Vol] 68 U/L Normal 40-135 [facility] ([place]) Comment on above: Performed By: #### A UNRULY, VALPR, CBC, ADIFF, BMP, GFR, AMM #### [address] [address] ALT [Catalytic activity/Vol] 33 U/L Normal 14-59 [facility] ([place]) Comment on above: Performed By: #### A UNRULY, VALPR, CBC, ADIFF, BMP, GFR, AMM #### [address] [address] AST [Catalytic activity/Vol] 32 U/L Normal 10-40 [facility] ([place]) Comment on above: Performed By: #### A UNRULY, VALPR, CBC, ADIFF, BMP, GFR, AMM #### [address] [address] Bili Total 0.3 mg/dL Normal 0.2-1.0 [facility] ([place]) Comment on above: Result Comment: Use of this assay is not recommended for patients undergoing treatment with eltrombopag due to the potential for falsely elevated results. Performed By: #### A UNRULY, VALPR, CBC, ADIFF, BMP, GFR, AMM #### [address] [address] BUN/Creatinine Ratio 22 ratio Normal 7-27 [facility] ([place]) Comment on above: Performed By: #### A UNRULY, VALPR, CBC, ADIFF, BMP, GFR, AMM #### [address] [address] Calcium [Mass/Vol] 10.4 mg/dL High 8.4-10.2 [facility] ([place]) Comment on above: Performed By: #### A UNRULY, VALPR, CBC, ADIFF, BMP, GFR, AMM #### [address] [address] Chloride [Moles/Vol] 98 mmol/L Normal 98-107 [facility] ([place]) Comment on above: Performed By: #### A UNRULY, VALPR, CBC, ADIFF, BMP, GFR, AMM #### [address] [address] CO2 [Moles/Vol] 28 mmol/L Normal 23-31 [facility] ([place]) Comment on above: Performed By: #### A UNRULY, VALPR, CBC, ADIFF, BMP, GFR, AMM #### [place] [address] Creatinine [Mass/Vol] 1.15 mg/dL High 0.55-1.02 [facility] ([place]) Comment on above: Performed By: #### A UNRULY, VALPR, CBC, ADIFF, BMP, GFR, AMM #### [place] [address] Electrolyte Balance 10.0 mEq/L Normal 4.0-15.0 On license of [facility] ([place]) Comment on above: Performed By: #### A UNRULY, VALPR, CBC, ADIFF, BMP, GFR, AMM #### [address] [address] Globulin 4.8 G/dL Normal [facility] ([place]) Comment on above: Performed By: #### A UNRULY, VALPR, CBC, ADIFF, BMP, GFR, AMM #### [place] [id number] Glucose [Mass/Vol] 88 mg/dL Normal 80-115 [facility] ([place]) Comment on above: Performed By: #### A UNRULY, VALPR, CBC, ADIFF, BMP, GFR, AMM #### [address] [address] Potassium [Moles/Vol] 4.7 mmol/L Normal 3.5-5.1 [facility] ([place]) Comment on above: Performed By: #### A UNRULY, VALPR, CBC, ADIFF, BMP, GFR, AMM #### [address] [address] Sodium [Moles/Vol] 136 mmol/L Normal 136-145 [facility] ([place]) Comment on above: Performed By: #### A UNRULY, VALPR, CBC, ADIFF, BMP, GFR, AMM #### [address] [address] Total Protein 8.5 G/dL High 6.4-8.2 [facility] ([place]) Comment on above: Performed By: #### A UNRULY, VALPR, CBC, ADIFF, BMP, GFR, AMM #### [address] [address] Urea nitrogen [Mass/Vol] 25 mg/dL High 7-18 [facility] ([place]) Comment on above: Performed By: #### A UNRULY, VALPR, CBC, ADIFF, BMP, GFR, AMM #### [address] [address] LABORATORYOrdered By: SYSTEM SYSTEM on 12-13-2022 25-hydroxyvitamin [...] or higher Very high risk LABORATORYOrdered By: CHENTE_Mary Beth BERNICE CONTRIBUTOR_SYSTEM on 12-13-2022 Levetiracetam Lvl 99.1 UG/ML [...] developed and its performance characteristics determined by [facility]'s [facility] [place] ([facility]). It has not been cleared or approved by the FDA. [facility] is regulated under CLIA as qualified to perform high-complexity testing. This test is used for clinical purposes. It should not be regarded as investigational or for research. Performed By: [facility] [address] [place] [address] Assistant Women'S Rowing Coach: Rigoberto Burgos III, M.D. CLIA#: [id number] LIPIDon 12-13-2022 Cholesterol [Mass/Vol] 176 mg/dL Normal 0-200 [facility] ([place]) Comment on above: Result Comment: Chol esterol Reference Interval: Less than 200 Desirable 200-239 Borderline high risk 240 and above High risk Performed By: #### A UNRULY, VALPR, CBC, ADIFF, BMP, GFR, AMM #### [address] [address] Cholesterol in HDL [Mass/Vol] 45 mg/dL Normal 40-60 [facility] ([place]) Comment on above: Performed By: #### A UNRULY, VALPR, CBC, ADIFF, BMP, GFR, AMM #### [place] [address] Cholesterol in LDL [Mass/Vol] 83 mg/dL Normal 0-130 [facility] ([place]) Comment on above: Performed By: #### A UNRULY, VALPR, CBC, ADIFF, BMP, GFR, AMM #### [place] [address] Triglyceride [Mass/Vol] 239 mg/dL High 0-150 [facility] ([place]) Comment on above: Result Comment: Trig lyceride Reference Interval: Less than 150 Normal 150-199 Borderline high risk 200-499 High risk 500 or higher Very high risk Performed By: #### A UNRULY, VALPR, CBC, ADIFF, BMP, GFR, AMM #### [place] [address] TSHon 12-13-2022 TSH Qn 3.02 m[IU]/L Normal 0.36-3.74 [facility] ([place]) Comment on above: Performed By: #### T SH, LIPID, GFR, ANEU, CMP, PTH, A1C, CBC, VIDH, ADIFF ####[place] [address]#### VALPR, LEVET, RENIND ####[facility] CenterToywuxcbe6485 [place], [place] [address] VALPRon 12-13-2022 LDose Valproic Acid: Unknown Normal [facility] ([place]) Comment on above: Performed By: #### A UNRULY, VALPR, CBC, ADIFF, BMP, GFR, AMM #### [place] [address] Valproic Acid Lvl 125 mcg/mL High 50-100 [facility] ([place]) Comment on above: Performed By: #### A UNRULY, VALPR, CBC, ADIFF, BMP, GFR, AMM #### [place] [address] VIDHon 12-13-2022 Vit. D 25-Hydroxy 81.8 ng/mL Normal [facility] ([place]) Comment on above: Result Comment: Inte rpretive Values Based on Total 25(OH) Vitamin D: Deficient <20 ng/mL Insufficient 20 - <30 ng/mL Sufficient 30-100 ng/mL Performed By: #### A UNRULY, VALPR, CBC, ADIFF, BMP, GFR, AMM #### [facility] [address] [place] [address] MRI KIDNEYon 10-01-2022 MRI KIDNEY ORIGINAL EXAMINATION: [...] 4:43:31 PM Ordering Provider: FISH JORDAN Normal [facility] ([place]) LABORATORYOrdered By: Jasmyne Foster on 07-07-2022 LDose [...] developed and its performance characteristics determined by [facility]'s [facility] Pathology and Laboratory Medicine [place] ([facility]). It has not been cleared or approved by the FDA. [facility] is regulated under CLIA as qualified to perform high-complexity testing. This test is used for clinical purposes. It should not be regarded as investigational or for research. Performed By: [facility] [address] [place] [address] Assistant Women'S Rowing Coach: Sadia Canas III#: [id number] LABORATORYOrdered By: Sentri SYSTEM on 05-08-2022 Cobalamin (Vitamin B12) [Mass/Vol] [...] Routine cultures are held for 5 days. [facility] LABORATORYOrdered By: Cristiane Hunter on 02-12-2022 Albumin [...] Heart rate 88 /min JAMEY LEONARD MD [facility] 08-13-2023 10:40-0400 Respiratory rate 18 /min JAMEY LEONARD MD [facility] 08-13-2023 06:35-0400 Body temperature 98.24 [degF] JAMEY LEONARD MD [facility] 08-13-2023 06:35-0400 Diastolic Blood Pressure Non-Invasive 76 mm[Hg] JAMEY LEONARD MD [facility] 08-13-2023 06:35-0400 Heart rate 80 /min JAMEY LEONARD MD [facility] 08-13-2023 06:35-0400 Respiratory rate 16 /min JAMEY LEONARD MD [address] [place] [address] 08-13-2023 06:35-0400 Systolic Blood Pressure Non-Invasive 129 mm[Hg] JAMEY LEONARD MD [address] [place] [address] 08-13-2023 06:34-0400 Heart rate 82 /min JAMEY LEONARD MD [address] [place] [address] 08-13-2023 06:34-0400 Respiratory rate 17 /min JAMEY LEONARD MD [address] [place] [id number] 08-12-2023 22:46-0400 Body temperature 97.7 [degF] JAMEY LEONARD MD [address] [place] [id number] 08-12-2023 22:46-0400 Diastolic Blood Pressure Non-Invasive 66 mm[Hg] JAMEY LEONARD MD [address] [place] [address] 08-12-2023 22:46-0400 Reason For Taking VItal Signs JAMEY LEONARD MD [address] 08-12-2023 22:46-0400 Systolic Blood Pressure Non-Invasive 113 mm[Hg] JAMEY LEONARD MD [address] [place] [address] 08-12-2023 16:18-0400 Blood Pressure Cuff Size JAMEY LEONARD MD [address] [place] [address] 08-12-2023 16:18-0400 Blood Pressure Location JAMEY LEONARD MD [address] [place] [address] 08-12-2023 16:18-0400 Blood Pressure Method JMAEY LEONARD MD [address] [place] [address] 08-12-2023 16:18-0400 Body temperature 98.06 [degF] JAMEY LEONARD MD [address] [place] [address] 08-12-2023 16:18-0400 Diastolic Blood Pressure Non-Invasive 82 mm[Hg] JAMEY LEONARD MD [facility] 08-12-2023 16:18-0400 Reason For Taking VItal Signs JAMEY LEONARD MD [facility] 08-12-2023 16:18-0400 Systolic Blood Pressure Non-Invasive 132 mm[Hg] JAMEY LEONARD MD [address] [place] [address] 08-12-2023 08:41-0400 Reason For Taking VItal Signs JAMEY LEONARD MD [address] [place] [address] 08-12-2023 06:46-0400 Blood Pressure Cuff Size JAMEY LEONARD MD [address] [place] [address] 08-12-2023 06:46-0400 Blood Pressure Location JAMEY LEONARD MD [address] [place] [address] 08-12-2023 06:46-0400 Blood Pressure Method JAMEY LEONARD MD [address] [place] [address] 08-11-2023 14:55-0400 Blood Pressure Cuff Size JAMEY ELONARD MD [address] [place] [address] 08-11-2023 14:55-0400 Blood Pressure Location JAMEY LEONARD MD [address] [place] [address] 08-11-2023 14:55-0400 Blood Pressure Method JAMEY LEONARD MD [address] [place] [address] 08-10-2023 11:04-0400 Heart rate 84 /min JAMEY LEONARD MD [address] [place] [address] 08-10-2023 07:16-0400 Heart rate 89 /min JAMEY LEONARD MD [address] [place] [address] 08-10-2023 03:44-0400 Heart rate 79 /min JAMEY LEONARD MD [address] [place] [address] 08-09-2023 10:50-0400 Mean blood pressure 91 mm[Hg] JAMEY LEONARD MD [address] [place] [address] 08-09-2023 10:35-0400 Mean blood pressure 93 mm[Hg] JAMEY LEONARD MD [address] [place] [address] 08-09-2023 10:20-0400 Body temperature 96.8 [degF] JAMEY LEONARD MD [address] [place] [address] 08-09-2023 10:20-0400 Mean blood pressure 91 mm[Hg] JAMEY LEONARD MD [address] [place] [address] 08-08-2023 08:05-0400 Heart rate 84 /min JAMEY LEONARD MD [address] [place] [address] 08-08-2023 04:28-0400 Body temperature 98.06 [degF] JAMEY LEONARD MD [address] [place] [address] 08-08-2023 04:28-0400 Heart rate 72 /min JAMEY LEONARD MD [address] [place] [address] 08-07-2023 15:21-0400 Body temperature 99.14 [degF] JAMEY LEONARD MD [address] [place] [address] 08-07-2023 10:00-0400 Body temperature 98.78 [degF] JAMEY LEONARD MD [address] [place] [address] 08-05-2023 13:40-0400 Body height 160 cm JAMEY LEONARD MD [address] [place] [address] 08-05-2023 13:40-0400 Body weight 76.6 kg JAMEY LEONARD MD [address] [place] [address] 08-05-2023 13:40-0400 Body weight 29.92 kg/m2 JAMEY LEONARD MD [address] [place] [address] 08-04-2023 20:54-0400 Diastolic Blood Pressure Non-Invasive 65 mm[Hg] AIDEN MARQUEZ DO [facility] 08-04-2023 20:54-0400 Heart rate 96 /min AIDEN FROMMELT DO [facility] 08-04-2023 20:54-0400 Respiratory rate 20 /min AIDEN FROMMELT DO [facility] 08-04-2023 20:54-0400 Systolic Blood Pressure Non-Invasive 121 mm[Hg] AIDEN FROMMELT DO [facility] 08-04-2023 19:10-0400 Diastolic Blood Pressure Non-Invasive 56 mm[Hg] AIDEN FROMMELT DO [facility] 08-04-2023 19:10-0400 Heart rate 101 /min AIDEN FROMMELT DO [facility] 08-04-2023 19:10-0400 Respiratory rate 20 /min AIDEN FROMMELT DO [facility] 08-04-2023 19:10-0400 Systolic Blood Pressure Non-Invasive 124 mm[Hg] AIDEN FROMMELT DO [facility] 08-04-2023 18:03-0400 Diastolic Blood Pressure Non-Invasive 61 mm[Hg] AIDEN FROMMELT DO [facility] 08-04-2023 18:03-0400 Heart rate 108 /min AIDEN FROMMELT DO [facility] 08-04-2023 18:03-0400 Systolic Blood Pressure Non-Invasive 124 mm[Hg] AIDEN FROMMELT DO [facility] 08-04-2023 15:57-0400 Mean blood pressure 78 mm[Hg] AIDEN FROMMELT DO [facility] 08-04-2023 15:57-0400 Reason For Taking VItal Signs AIDEN FROMMELT DO [facility] 08-04-2023 15:57-0400 Respiratory rate 20 /min AIDEN BELTRANInbiomotion [facility] 08-04-2023 13:17-0400 Body height 160 cm AIDEN SOUZAHourlyNerd [facility] 08-04-2023 13:17-0400 Body temperature 97.88 [degF] AIDEN BELTRANInbiomotion [facility] 08-04-2023 13:17-0400 Body weight 76 kg AIDEN BELTRANInbiomotion [facility] 08-02-2023 11:51-0400 Blood Pressure Location FISH JORDAN JUVENILE COURT JUDGE - EMBOSSING PRESS OPERATOR APPRENTICE [facility] 08-02-2023 11:51-0400 Blood Pressure Method FISH JORDAN JUVENILE COURT JUDGE - EMBOSSING PRESS OPERATOR APPRENTICE [facility] 08-02-2023 11:51-0400 Body temperature 98.96 [degF] FISH JORDAN JUVENILE COURT JUDGE - EMBOSSING PRESS OPERATOR APPRENTICE [facility] 08-02-2023 11:51-0400 Diastolic Blood Pressure Non-Invasive 85 mm[Hg] FISH JORDAN JUVENILE COURT JUDGE - EMBOSSING PRESS OPERATOR APPRENTICE [facility] 08-02-2023 11:51-0400 Heart rate 90 /min FISH JORDAN JUVENILE COURT JUDGE - EMBOSSING PRESS OPERATOR APPRENTICE [facility] 08-02-2023 11:51-0400 Respiratory rate 18 /min FISH JORDAN JUVENILE [address] JUDGE - EMBOSSING PRESS OPERATOR APPRENTICE [facility] 08-02-2023 11:51-0400 Systolic Blood Pressure Non-Invasive 112 mm[Hg] FISH JORDAN JUVENILE COURT JUDGE - EMBOSSING PRESS OPERATOR APPRENTICE [facility] 02-24-2022 13:35-0500 Diastolic Blood Pressure Non-Invasive [address] KYLE TELLO MD [facility] 02-24-2022 13:35-0500 Heart rate 76 /min DR KYLE TELLO MD [facility] 02-24-2022 13:35-0500 Respiratory rate 16 /min DR KYLE TELLO MD [facility] 02-24-2022 13:35-0500 Systolic Blood Pressure Non-Invasive [address] KYLE TELLO MD [facility] 02-24-2022 11:14-0500 Diastolic Blood Pressure Non-Invasive [address] KYLE TELLO MD [facility] 02-24-2022 11:14-0500 Heart rate 78 /min DR KYLE TELLO MD [facility] 02-24-2022 11:14-0500 Respiratory rate 16 /min DR KYEL TELLO MD [facility] 02-24-2022 11:14-0500 Systolic Blood Pressure Non-Invasive [address] KYLE TELLO MD [facility] 02-24-2022 09:36-0500 Body temperature 98.06 [degF] DR KYLE TELLO MD [facility] 02-24-2022 09:36-0500 Diastolic Blood Pressure Non-Invasive [address] KYLE TELLO MD [facility] 02-24-2022 09:36-0500 Heart rate 87 /min DR KYLE TELLO MD [facility] 02-24-2022 09:36-0500 Respiratory rate 18 /min DR KYLE TELLO MD [facility] 02-24-2022 09:36-0500 Systolic Blood Pressure Non-Invasive [address] KYLE TELLO MD [facility] 03-18-2021 20:06-0500 Diastolic blood pressure 72 mm[Hg] DR BUCK BURDICK MD [facility] 03-18-2021 20:06-0500 Heart rate 93 /min DR BUCK BURDICK MD [facility] 03-18-2021 20:06-0500 Respiratory rate 20 /min DR BUCK BURDICK MD [facility] 03-18-2021 20:06-0500 Systolic blood pressure 120 mm[Hg] DR BUCK BURDICK MD [facility] 03-18-2021 17:35-0500 Diastolic blood pressure 82 mm[Hg] DR BUCK BURDICK MD [facility] 03-18-2021 17:35-0500 Heart rate 94 /min DR BUCK BURDICK MD [facility] 03-18-2021 17:35-0500 Reason For Taking VItal Signs DR BUCK BURDICK MD [facility] 03-18-2021 17:35-0500 Respiratory rate 20 /min DR BUCK BURDICK MD [facility] 03-18-2021 17:35-0500 Systolic blood pressure 122 mm[Hg] DR BUCK BURDICK MD [facility] 03-18-2021 15:55-0500 Diastolic blood pressure 76 mm[Hg] DR BUCK BURDICK MD [facility] 03-18-2021 15:55-0500 Heart rate 98 /min DR BUCK BURDICK MD [facility] 03-18-2021 15:55-0500 Respiratory rate 18 /min DR BUCK BURDICK MD [facility] 03-18-2021 15:55-0500 Systolic blood pressure 144 mm[Hg] DR BUCK BURDICK MD [facility] 03-18-2021 15:09-0500 Body temperature 98.24 [degF] DR BUCK BURDICK MD [facility] 03-18-2021 15:09-0500 Heart rate 115 /min DR BUCK BURDICK MD [facility] Encounters Encounter Date Encounter Type Care Provider Facility Start: 12-21-2024 ambulatory Elisa Maldonado OLS Facil ity:[facility] Start: 12-21-2024 Registered Referred Elisa Maldonado MD - [facility] Start: 11-18-2024 ambulatory Aiden Wolfe Facili ty:[facility] Start: 11-18-2024 Registered Referred Elisa Maldonado MD - [facility] Start: 10-13-2024 End: 10-13-[address] Aiden Wolfe DO Work Phone: [facility] Start: 10-13-2024 End: 10-13-2024 Dep[facility] Start: 10-13-2024 Registered Referred Elisa Maldonado MD [facility] Start: 10-13-2024 End: 10-13-2024 ambulatory Aiden Wolfe Facility:[facility] Start: 10-09-2024 Registered Referred Elisa Maldonado MD [facility] Start: 10-09-2024 End: 10-09-2024 ambulatory Aiden Wolfe Facility:[facility] Start: 10-01-2024 End: 10-01-[address] Aiden Wolfe DO Work Phone: [facility] Start: 10-01-2024 End: 10-01-2024 Departed Referred [facility] Start: 10-01-2024 End: 10-01-2024 ambulatory Aiden Wolfe Facility:[facility] Start: 08-18-2024 End: 08-18-2024 ambulatory Elisa Maldonado MD [facility] Work Phone: Start: 08-18-2024 End: 08-18-2024 Departed Referred [facility] Start: 08-18-2024 End: 08-18-2024 ambulatory Elisa STANFORD Facility:[facility] Start: 07-20-2024 End: 07-20-[address] Aiden Wolfe DO Work Phone: [facility] Work Phone: Start: 07-20-2024 End: 07-20-2024 Departed Referred [facility] Start: 07-20-2024 End: 07-20-2024 ambulatory Elisa STANFORD Facility:[facility] Start: 06-22-2024 End: 06-22-[address] Aiden Wolfe DO Work Phone: [facility] Work Phone: Start: 06-22-2024 End: 06-22-2024 [facility] Start: 06-22-2024 End: 06-22-2024 ambulatory Elisa STANFORD Facility:[facility] Start: 05-21-2024 ambulatory Elisa STANFORD Facil ity:[facility] Start: 05-21-2024 Registered Referred Elisa Maldonado MD [facility] Start: 04-20-2024 ambulatory Aiden Wolfe Facili ty:[facility] Start: 04-20-2024 Registered Referred Elisa Maldonado MD [facility] Start: 03-05-2024 End: 03-05-2024 ambulatory Aiden Wolfe Facility:[facility] Start: 02-19-2024 End: 02-19-2024 ambulatory Aiden Griffith Facility:[facility] Start: 02-05-2024 ambulatory FISH JORDAN Facili ty:[facility] Start: 09-16-2023 End: 09-16-[address] JUDGE - EMBOSSING PRESS OPERATOR APPRENTICE Facility:B Start: 09-16-2023 End: 09-16-2023 Patient encounter procedure MARJ DEAN MD [facility] Start: 08-04-2023 End: 08-13-2023 Evaluation and management of inpatient JAMEY LEONARD MD [facility] Start: 08-04-2023 End: 08-04-2023 Emergency department patient visit AIDEN MARQUEZ DO [facility] Start: 08-02-2023 End: 08-02-2023 SAME DAY STAY FISH JORDAN JUVENILE COURT JUDGE - EMBOSSING PRESS OPERATOR APPRENTICE [facility] Start: 08-02-2023 End: 08-02-[address] JUDGE - EMBOSSING PRESS OPERATOR APPRENTICE Facility:B Start: 08-02-2023 End: 08-02-2023 Patient encounter procedure FISH D NIKKI JUVENILE COURT JUDGE - EMBOSSING PRESS OPERATOR APPRENTICE [facility] Start: 06-20-2023 End: 06-24-2023 [address]INS JUVENILE COURT JUDGE - EMBOSSING PRESS OPERATOR APPRENTICE Facility:B Start: 06-20-2023 End: 06-24-2023 Outreach Lab FISH James NIKKI JUVENILE COURT JUDGE - EMBOSSING PRESS OPERATOR APPRENTICE [facility] Start: 06-13-2023 End: 06-17-2023 [address] JUVENILE COURT JUDGE - EMBOSSING PRESS OPERATOR APPRENTICE Facility:B Start: 06-13-2023 End: 06-17-2023 Outreach Lab FISH James NIKKI JUVENILE COURT JUDGE - EMBOSSING PRESS OPERATOR APPRENTICE [facility] Start: 01-07-2023 End: 01-07-[address]23 [address] JUVENILE COURT JUDGE - EMBOSSING PRESS OPERATOR APPRENTICE Facility:B Start: 12-24-2022 End: 12-24-2022 ambulatory FISH James NIKKI JUVENILE COURT JUDGE - EMBOSSING PRESS OPERATOR APPRENTICE Facility:B Start: 12-24-2022 End: 12-24-[address] ELISA GAMBLE MD [facility] Start: 12-13-2022 End: 12-17-2022 ambulatory FISH James NIKKI JUVENILE COURT JUDGE - EMBOSSING PRESS OPERATOR APPRENTICE Facility:B Start: 12-13-2022 End: 12-17-2022 Outreach Lab FISH James NIKKI JUVENILE COURT JUDGE - EMBOSSING PRESS OPERATOR APPRENTICE [facility] Start: 09-28-2022 End: 09-28-2022 ambulatory FISH D NIKKI JUVENILE COURT JUDGE - EMBOSSING PRESS OPERATOR APPRENTICE Facility:B Start: 09-28-2022 End: 09-28-2022 Patient encounter procedure FISH D NIKKI JUVENILE COURT JUDGE - EMBOSSING PRESS OPERATOR APPRENTICE [facility] Start: 07-07-2022 End: 07-07-2022 Patient encounter procedure NANCIE SHIELDS DO [facility] Start: 06-07-2022 End: 06-11-2022 Outreach Lab FISH POTTERPKINS JUVENILE COURT JUDGE - EMBOSSING PRESS OPERATOR APPRENTICE [facility] Start: 05-08-2022 End: 05-08-2022 Patient encounter procedure MEKA KWON [facility] Start: 04-11-2022 End: 04-11-2022 Patient encounter procedure FISH Erika JORDAN JUVENILE COURT JUDGE - EMBOSSING PRESS OPERATOR APPRENTICE [facility] Start: 03-21-2022 End: 03-21-2022 Patient encounter procedure FISH Erika JORDAN JUVENILE COURT JUDGE - EMBOSSING PRESS OPERATOR APPRENTICE [facility] Start: 03-01-2022 End: 03-01-2022 Patient encounter procedure FISH Erika JORDAN JUVENILE COURT JUDGE - EMBOSSING PRESS OPERATOR APPRENTICE [facility] Start: 02-24-2022 End: 02-24-2022 Emergency department patient visit DR KYLE TELLO MD [facility] Start: 02-12-2022 End: 02-12-2022 Patient encounter procedure NANCIE SHIELDS DO [facility] Start: 12-12-2021 End: 12-12-[address] ELISA GAMBLE MD [facility] Start: 03-18-2021 End: 03-18-2021 Emergency department patient visit DR BUCK BURDICK MD [facility] Procedures Date Procedure Procedure Detail Performing Clinician Start: 11-18-2024 Vitamin D, 25-hydroxy measurement Dr. Ileana Wolfe DO Work Phone: Comment on above: Vitamin D StatusDeficiency: <20 ng/mL (5 0nmol/L)Insufficiency: 20-30 ng/mL (50-75 nmol/L)Sufficiency: 30-100 ng/mL (75-250 nmol/L)Toxicity: >100 ng/mL (>250 nmol/L) Start: 10-09-[address] Aiden Wolfe DO Work Phone: Comment on above: *Additional results available. Contact l aboratory/see report* Detection Limit = 3Performed at: [facility] [employer] [id number] Director: Daniel Heredia MD, Phone: [phone] at: [facility] [employer] [id number] Director: Crescencio Metcalf PhD, Phone: [phone] Start: 10-01-[address] Aiden Wolfe DO Work Phone: Comment on above: Test Ordered: [id number] LacosamideTest(s) 0 88151-Tryyilrakebge developed and its performance characteristicsdetermined by [employer]. It has not been cleared or approvedby the Food and Drug Administration.Lacosamide 6.3 ug/mL Reference Range: 5.0-10.0 Limit of Detection 0.5 Mean plasma concentrations following maintenance dose 200 mg/day 4.99 +/- 2.51 ug/mL 400 mg/day 9.35 +/- 4.22 ug/mL 600 mg/day 12.46 +/- 5.60 ug/mLPerformed at: [facility] [employer] [id number] Director: Daniel Heredia MD, Phone: [phone] at: [address] [id number] Director: Crescencio Metcalf PhD, Phone: [phone] Start: 07-20-2024 Parathyroid hormone measurement Elisa gaitan MD Start: 07-20-2024 Serum inorganic phosphate measurement Elisa Maldonado MD Start: 07-20-2024 Total iron binding capacity measurement Elisa Maldonado MD Start: 05-21-2024 Valproic acid measurement Elisa Maldonado MD Start: 05-21-2024 Vitamin D, 25-hydroxy measurement Elisa braga MD Comment on above: Vitamin D 25(OH) Status Range Deficiency <20 ng/mL (50nmol/L) Insufficiency 20 - 30 ng/mL (50 - 75 nmol/L) Sufficiency 30 - 100 ng/mL (75 - 250 nmol/L) Toxicity >100 ng/mL (>250 nmol/L) Start: 12-24-2022 Echocardiography FISH JORDAN APRN - EMBOSSING PRESS OPERATOR APPRENTICE Comment on above: 1. Left ventricle: The cavity size is no rmal. Wall thickness is mildly increased. Systolic function [...] is mildly dilated Start: 12-12-2021 Echocardiography NANCIE SHIELDS DO Comment on above: 1. Left ventricle: The cavity size is no rmal. Wall thickness is mildly increased with moderate [...] is trivial regurgitation. Start: 12-20-[address] BUCK BURDICK MD Comment on above: EF 60-65% Start: 04-23-2014 Open reduction of fracture with internal fixation DR BUCK BURDICK MD Comment on above: right foot Start: 04-15-[address] BUCK BURDICK MD Lumpectomy of breast DR MARC BURDICK MD Comment on above: Left Immunizations Immunization Date Immunization Notes Care Provider Fa cili 06-22-2020 SARS-CoV-2 (COVID-19 ) mRNA-[address] ELISA GAMBLE MD [facility] 05-26-2020 SARS-CoV-2 (COVID-19 ) mRNA-[address] ELISA GAMBLE MD [facility] 02-07-2017 influenza virus vaccine, unspecified formulation DR ELISA GAMBLE MD [facility] 01-31-2016 influenza virus vaccine, unspecified formulation DR ELISA GAMBLE MD [facility] 01-31-2016 influenza, injectabl e, quadrivalent, preservative free Dr. Aiden Wolfe DO Work Phone: [facility] Payers Date Payer Category Payer Unknown [id number] 2024 Self-pay 2023 Unknown [id number] 2016 Medicaid [id number] 1987 Medicare [id number] 1955 Unknown [id number] 2.16.8 40.1.875228.3.579.2.62 1955 Unknown [id number] 2.16.8 40.1.769347.3.579.2.62 1956 Unknown [id number] 2.16.8 40.1.523162.3.579.2.627 1956 Unknown [id number] 2.16.8 40.1.148020.3.579.2.62 1956 Unknown [id number] 2.16.8 40.1.309276.3.579.2.62 1956 Unknown [id number] 2.16.8 40.1.401403.3.579.2. 1956 Unknown [id number] 2.16.8 40.1.450978.3.579.2. 1956 Unknown [id number] 2.16.8 40.1.775349.3.579.2. 1956 Unknown [id number] 2.16.8 40.1.159419.3.579.2. 1956 Unknown [id number] 2.16.8 40.1.414935.3.579.2. 1956 Unknown [id number] 2.16.8 40.1.036690.3.579.2. 1956 Unknown [id number] 2.16.8 40.1.747982.3.579.2. 1956 Unknown [id number] 2.16.8 40.1.675314.3.579.2. 1956 Unknown [id number] 2.16.8 40.1.932142.3.579.2.627 Unknown [id number] 2.16.8 40.1.694357.3.579.2.462 Unknown [id number] 2.16.8 40.1.643135.3.579.2.462 Unknown [id number] 2.16.8 40.1.848790.3.579.2.462 Unknown [id number] 2.16.8 40.1.059769.3.579.2.462 Unknown [id number] 2.16.8 40.1.233087.3.579.2.462 Unknown [id number] 2.16.8 40.1.726469.3.579.2.462 Unknown [id number] 2.16.8 40.1.213382.3.579.2.462 Unknown [id number] 2.16.8 40.1.137762.3.579.2.462 Unknown [id number] 2.16.8 40.1.017593.3.579.2.462 Unknown [id number] 2.16.8 40.1.017868.3.579.2.462 Unknown [id number] 2.16.8 40.1.657438.3.579.2.462 Unknown [id number] 2.16.8 40.1.529536.3.579.2.462 Social History Date Type Detail Facility Start: 01-31-2016 End: 05-12-2019 Never smoked tobacco (finding) [facility] Start: 1955 Sex Assigned At Female A [facility] Start: 01-31-2016 None None [facility] Start: 01-31-2016 With Family With Family [facility] Start: 07-15-2024 End: 07-20-2024 Sex Female (finding) [facility] Sex Female [facility] Functional Status Date Assessment Result Facility 08-13-2023 Functional Status Repositions self [facility] 08-13-2023 Functional Status [facility] 08-13-2023 Functional Status [facility] 08-13-2023 Functional Status Identified as high risk, Bed alert on, Non-Slip footwear, Room check performed [facility] 08-13-2023 Functional Status [facility] 08-12-2023 Functional Status [facility] 08-12-2023 Functional Status Done [facility] 08-12-2023 Functional Status Supervised [facility] 08-12-2023 Functional Status [facility] 08-12-2023 Functional Status [facility] 08-12-2023 Functional Status bilateral knee high rem jaida/off [facility] 08-11-2023 Functional Status [facility] 08-11-2023 Functional Status [facility] 08-11-2023 Functional Status [facility] 08-11-2023 Functional Status [facility] 08-11-2023 Functional Status [facility] 08-10-2023 Functional Status Beds/Devices Hospital b ed [facility] 08-10-2023 Functional Status [facility] 08-10-2023 Functional Status Lunch Percent 0 [facility] 08-10-2023 Functional Status [facility] 08-10-2023 Functional Status [facility] 08-09-2023 Functional Status [facility] 08-09-2023 Functional Status [facility] 08-09-2023 Functional Status unable to acqu miri home MOREIRA/baseline d/t extensive expressive aphasia, attempted to call POA/sister, unable to get a hold of, social work does not have any further information [facility] 08-09-2023 Functional Status Patient Identi fied Identification band [facility] 08-09-2023 Functional [facility] Status [facility] 08-08-2023 Functional Status [facility] 08-08-2023 Functional Status [facility] 08-08-2023 Functional Status [facility] 08-08-2023 Functional Status Special Call D evice Unable to use call device [facility] 08-08-2023 Functional Status Assistive Equi pment elevated on pillows [facility] 08-07-2023 Functional Status [facility] 08-07-2023 Functional Status [facility] 08-07-2023 Functional Status [facility] 08-06-2023 Functional Status [facility] 08-05-2023 Functional Status [facility] 08-05-2023 Functional Status Sensory Deficits None A [facility] 08-05-2023 Functional Status No Living Envi ronment Information Available [facility] 08-05-2023 [facility]-04[facility] Functional Status Room check performed [facility] 02-24-2022 Functional Status Standard Safet y ID band on, Call device within reach, Bed in low position, Wheels locked, Upper/Half-Length side-rails up, Phone within reach, personal items within reach, Assistive devices within reach, Toileting device within reach, Bedside Cart Locked, Visitor at bedside, Safety level maintained [facility] Mental Status Date Assessment Result Facility 08-13-2023 Mental Status Not oriented to place, Not oriented to time, Not oriented to situation [facility] 08-12-2023 Mental Status [facility] 08-04-2023 Mental Status Orientation Other: [facility] 02-24-2022 Mental Status Orientation Disoriented x 4 1 [facility] Clinical Notes 03-18-2021 to 08-13-2023 Note Date & Type Note Facility 08-13-2023 Discharge summary Date of Service 08/13/23 Discharge Diagnosis 1. Breakthrough seizure 2. Acute encephalopathy 3. Hyponatremia 4. Developmental delay 5. Asthma without exacerbation 6. Other history of HTN, HLD, obesity Additional Orders: Ordered: Discharge,08/13/23 10:00:00 EDT, [facility] 67-year-old female with past medical history of epilepsy, developmental delay, hypertension, hyperlipidemia and obesity. Patient presented to [facility] as a transfer from [facility] emergency department on 08/04/2023 with [...] patient was actually stable for discharge to [facility] care of mariama Patterson on 08/12/2023. The patient's POA Jorge called in requesting a change of facility. The patient stayed overnight in the hospital due to facility change. No acute events noted overnight. Vital signs are hemodynamically stable. Mentation improving each day. Patient was alert to self, location and family. Patient is stable for discharge to [facility] SN[facility]. Sister updated on plan. Case [...] 08/04/23 Discharge Date 08/13/23 Medications New Prescription [id number] Milligram by mouth every six (6) hours [...] Follow Up [facility] When Within 1-2 days Why: follow up wtin 2 weeks Where: [address] [place] [address]- [facility] (1) Follow Up with FISH JORDAN APRN - EMBOSSING PRESS OPERATOR APPRENTICE When Within 1-2 days Why: Please call the office to schedule a follow-up appointment Where: [address] [facility] [place] [address]- Follow Up Appointments Transfer of Care OT [...] -- Type of Diet: Soft and Bite Cstco-YQFKL-2, Thin (Thinned)-IDDSI-0, 08/12/23 10:51:00 EDT Discharge Activity Transfer of Care Activity - Ordered -- As instructed by therapy, 08/12/23 10:51:00 EDT Condition on Discharge Stable Discharge Disposition SNF Information Provided To Patient Sister Time Spent 32 minutes Digitally Signed by ADEBAYO MARTINEZ on 08/13/2023 10:03 AM Digitally Signed by LENNY PARK DO on 08/13/2023 10:17 AM [facility] 08-13-2023 Note Discharge Instructions Thank you for allowing [facility] to assist you with your healthcare needs. The following is important discharge information regarding your hospital visit. Your Care Team FISH JORDAN APRN, CNP Your Diagnosis Developmentally disabled HTN (hypertension) Hyperlipidemia LDL goal <100 Seasonal asthma Seizure What to do next Scheduled Follow-Up Appointments Appointment Type When With Where Contact InformationPC Nurse Lab 12/12/2023 08:00 AM EDT [facility] OV 12/23/2023 07:00 AM EDT FISH JORDAN APRN, CNP [facility] Follow Up Appointments Follow Up with [facility] When Within 1-2 days [facility] with [facility] When Within 1-2 days Why: follow up wtihin 2 weeks Where: [address] [place] [address]- Business (1) Follow Up with FISH JORDAN APRN, CNP When Within 1-2 days Why: Please call the office to schedule a follow-up appointment Where: [address] [place] [address]- The Following Activity and Diet Have Been Ordered for You Transfer of Care Activity - Ordered -- As instructed by therapy, 08/12/23 10:51:00 EDT Transfer of Care Diet - Ordered -- Type of Diet: Soft and Bite Oouum-EPUTI-5, Thin (Thinned)-IDDSI-0, 08/12/23 10:51:00 EDT The Following Equipment Has Been Ordered for You No qualifying data available. The Following Treatments Have Been Ordered for You Discharge Labs Transfer of Care Labwork - Ordered -- Valporic Acid level, monitor while on Valporic acid, follow-up within: 5-7 days, Results Notify to: FISH JORDAN APRN - EMBOSSING PRESS OPERATOR APPRENTICE, 08/12/23 10:51:00 EDT Discharge Radiology No qualifying [...] 5-7 days, Results Notify to: FISH JORDAN JUVENILE COURT JUDGE - EMBOSSING PRESS OPERATOR APPRENTICE, 08/12/23 10:51:00 EDT Transfer of Care Orders [...] Follow these instructions at home: Medicines Take vmsw-hlu-nkjsymc and prescription medicines only as told by [...] medicines are used to treat seizures. Take tnjo-auj-ghedyii and prescription medicines only as told by your health care provider. This information is not intended to replace advice given to you by your health care provider. Make sure you discuss any questions you have with your health care provider. Document Released: 03/29/2001 Document Revised: 06/19/2019 Document Reviewed: 06/19/2019 [employer] Patient Education 2019 [employer] Additional Information VACCINATE! IT SAVES LIVES! Members of the community who have not yet received the COVID-19 vaccine and would like to receive it can visit one of [facility] vaccine clinics. There are many vaccine clinic locations within the [facility]. For locations and available times, please visit [email or web address].coronavirus.lai o.gov/. It is important to note that some COVID mobile vaccine clinics are held outdoors and may be canceled in rainy or stormy conditions. To learn more about pediatric vaccinations (ages 5-11), we invite you to visit the [facility] webpage. https://www.akbeatlabs.org/pag es/8853-Zppaa-Zsfmxyhnuka-Frequent ei-Xqrls-Dxzjixnkm.html To learn more about the COVID-19 vaccine, we invite you to visit the CDC website for a list of frequently asked questions.https://www.cdc.gov/fabiola navirus/2019-ncov/vaccines/faq.htm l [facility] Patient Portal Access Instructions: Stay connected with your healthcare team and access your personal medical information anytime with the [facility] Patient Portal. Please follow the directions below to create your [facility] account: 1.Access the email account you provided upon registration to the hospital/physician office.2.Look for an invitation email from [facility].3.Open the email and access the invitation link: Accept Invitation to [facility].4.Fill in the required spicer to create your account. To access your account, visit [email or web address]. Click the blue button labeled "Access Patient [...] you will allow to register on the [facility] Patient Portal for access to your information. You can also access the [facility] [employer] [facility] Patient Portal on the [employer]. Simply click on "Patient Portal" and then log into your account. If you would like to receive a full copy of your medical records, please contact the [facility] Medical Records Department by calling [phone], Saturday through Saturday between 8 a.m. and [...] Call your local pharmacy or go to [email or web address] to find one close to you.3.Make use of household items: Use cat litter or old coffee grounds to dispose medications if other options are not available. Mix your drugs with these household products, seal them in an airtight container and throw it into the garbage. Call [facility]: [phone] to be sure your drugs can be [...] aware that I should contact my doctor. Patient/Community Health Planning Director Signature: Date/Time: Relationship to Patient: ___ Witness Name/Signature: Date/Time: [facility] 08-13-2023 Discharge summary Date of Service 08/13/23 Discharge Diagnosis 1. Breakthrough seizure 2. Acute encephalopathy 3. Hyponatremia 4. Developmental delay 5. Asthma without exacerbation 6. Other history of HTN, HLD, obesity Additional Orders: Ordered: Discharge,08/13/23 10:00:00 EDT, [facility] to: [facility] Course 67-year-old female with past medical history of epilepsy, developmental delay, hypertension, hyperlipidemia and obesity. Patient presented to [facility] as a transfer from [facility] emergency department on 08/04/2023 with [...] patient was actually stable for discharge to [facility] care of mariama Patterson on 08/12/2023. The patient's POA Jorge called in requesting a change of facility. The patient stayed overnight in the hospital due to facility change. No acute events noted overnight. Vital signs are hemodynamically stable. Mentation improving each day. Patient was alert to self, location and family. Patient is stable for discharge to [facility]. Sister updated on plan. Case [...] 08/04/23 Discharge Date 08/13/23 Medications New Prescription [id number] Milligram by mouth every six (6) hours [...] wtihin 2 weeks Where: [address] [place] [address]- Business (1) Follow Up with FISH JORDAN APRN - [facility] When Within 1-2 days Why: Please call the office to schedule a follow-up appointment Where: [address] [place] [address]- Follow Up Appointments Transfer of Care OT [...] -- Type of Diet: Soft and Bite Csxtd-XDOTB-8, Thin (Thinned)-IDDSI-0, 08/12/23 10:51:00 EDT Discharge Activity Transfer of Care Activity - Ordered -- As instructed by therapy, 08/12/23 10:51:00 EDT Condition on Discharge Stable Discharge Disposition SNF Information Provided To Patient Sister Time Spent 32 minutes Digitally Signed by ADEBAYO MARTINEZ on 08/13/2023 10:03 AM Digitally Signed by LENNY PARK DO on 08/13/2023 10:17 AM [facility] 08-13-2023 Hospital Discharge instructions Patient Education 08/13/2023 [...] Follow these instructions at home: Medicines Take ladj-erv-vwnmlux and prescription medicines only as told by [...] medicines are used to treat seizures. Take reuh-kse-nxnffcs and prescription medicines only as told by your health care provider. This information is not intended to replace advice given to you by your health care provider. Make sure you discuss any questions you have with your health care provider. Document Released: 03/29/2001 Document Revised: 06/19/2019 Document Reviewed: 06/19/2019 [employer] Patient Education 2020 [employer]. Follow Up Care 08/04/2023 16:56:26 With:[facility] Address:Unknown When:1-2 days With:[facility] Address: [address] [place] [address]- Business (1) When:1-2 days Comments:follow up wtihin 2 weeks With:FISH JORDAN APRN - [facility] Address: [address] [facility] [place] [address]- When:1-2 days Comments:Please call the office to schedule a follow-up appointment [facility] 08-12-2023 Discharge summary Date of Service 08/12/23 [...] Care Diet,Type of Diet: Soft and Bite Jupay-NCGLC-4, Thin (Thinned)-IDDSI-0, 08/12/23 10:51:00 EDT Ordered: Transfer of Care Labwork,Valporic Acid level, monitor while on Valporic acid, follow-up within: 5-7 days, Results Notify to: FISH JORDAN APRN - ARLINE, 08/12/23 10:51:00 EDT Ordered: Transfer of Care [...] hypertension, hyperlipidemia and obesity. Patient presented to [facility] as a transfer from [facility] emergency department on 08/04/2023 with [...] [facility] TEREZA Diggs over phone. Case d/w [...] 08/04/23 Discharge Date 08/12/23 Medications New Prescription [id number] Milligram by mouth every six (6) hours [...] Follow Up Follow Up with [facility] When Within 1-2 days Why: follow up wtihin 2 weeks Where: [address] [place] [address]- Business (1) Follow Up with FISH JORDAN APRN - ARLINE When Within 1-2 days Why: Please call the office to schedule a follow-up appointment Where: [address] [facility] [place] [address]- Follow Up Appointments Transfer of Care OT - Ordered -- Reason for therapy: weakness, 08/12/23 10:51:00 EDT Transfer of Care PT - Ordered -- Reason for therapy: weakness, 08/12/23 10:51:00 EDT Follow Up Labs/Studies Discharge Labs Transfer of Care Labwork - Ordered -- Valporic Acid level, monitor while on Valporic acid, follow-up within: 5-7 days, Results Notify to: FISH JORDAN APRN - EMBOSSING PRESS OPERATOR APPRENTICE, 08/12/23 10:51:00 EDT Discharge Studies No Follow-up Studies Discharge Diet Transfer of Care Diet - Ordered -- Type of Diet: Soft and Bite Zjgvq-EBUCR-5, Thin (Thinned)-IDDSI-0, 08/12/23 10:51:00 EDT Discharge Activity Transfer of Care Activity - Ordered -- As instructed by therapy, 08/12/23 10:51:00 EDT Condition on Discharge Stable Discharge Disposition SNF Information Provided To Patient TOMAS left for TEREZA Diggs Time Spent 32 minutes Digitally Signed by ADEBAYO MARTINEZ APRN-EMBOSSING PRESS OPERATOR APPRENTICE on 08/12/2023 10:57 AM Digitally Signed by MANDA BENSON MD [facility] 08-11-2023 Note . MICRO - Microbiology PROCEDURE: [...] Locations *1: This test was performed at: [facility], [address] [place] [address], [facility] , [facility] ([place]) 08-11-2023 Note . MICRO - Microbiology PROCEDURE: [...] Locations *1: This test was performed at: [facility], [address] [place] [address], [id number] , [facility] ([place]) 08-11-2023 Note Date of Service 08/11/23 Chief Complaint mentation improving Subjective 67-year-old female with past medical history of epilepsy, developmental delay, hypertension, hyperlipidemia and obesity. Patient presented to [facility] as a transfer from [facility] emergency department on 08/04/2023 with [...] for dysphagia. PT/OT recommending SNF, planning for [facility]. Patient seen today. Mentation improving. She was [...] DVT prophylaxis PT/OT recommending SNF, planning for [facility] Plan discussed with patient. Jorge STARKS updated on plan of care Case discussed with Dr. Benson Digitally Signed by ADEBAYO MARTINEZ on 08/11/2023 11:37 AM [facility] 08-11-2023 Respiratory therapy Hospital Progress note Respiratory [...] Joanie Garcia RT on 08/11/2023 10:46 AM [facility] 08-10-2023 Note Date of Service 08/10/2023 Chief Complaint AMS Subjective 67-year-old female with past medical history of epilepsy, developmental delay, hypertension, hyperlipidemia and obesity. Patient presented to [facility] as a transfer from [facility] emergency department on 08/04/2023 with [...] for dysphagia. PT/OT recommending SNF, planning for [facility]. Patient seen today. She was alert [...] by ADEBAYO MARTINEZ on 08/10/2023 02:16 PM [facility] 08-10-2023 Neurology Progress note Date of Service [...] GUTIERREZ PENA MD on 08/10/2023 02:51 PM [facility] 08-09-2023 Note Date of Service 08/09/23 Chief Complaint confusion Subjective 67-year-old female with past medical history of epilepsy, developmental delay, hypertension, hyperlipidemia and obesity. Patient presented to [facility] as a transfer from [facility] emergency department on 08/04/2023 with [...] by ADEBAYO MARTINEZ on 08/09/2023 01:55 PM [facility] 08-09-2023 Neurology Progress note Date of Service [...] also recommended that she be transferred to [facility] for an EEG to exclude nonconvulsive [...] by PUJA GUSMAN on 08/09/2023 02:48 PM [facility] 08-09-2023 Note Date of Service 08/09/23 Chief Complaint confusion Subjective 67-year-old female with past medical history of epilepsy, developmental delay, hypertension, hyperlipidemia and obesity. Patient presented to [facility] as a transfer from [facility] emergency department on 08/04/2023 with [...] by ADEBAYO MARTINEZ on 08/09/2023 01:55 PM [facility] 08-09-2023 Anesthesiology Consult note Patient: NAI HERNANDEZ [...] CHARLY NAVA MD on 08/09/2023 11:46 AM [facility] 08-09-2023 Note ORIGINAL HISTORY: TIA COMPARISON: Head [...] Sign Date: 08/09/2023 11:01:30 AM Ordering Provider: [facility] 08-09-2023 Anesthesiology Consult note Patient: NAI [...] Medical High serum renin / SNOMED CT 674035462 / Confirmed Adrenal mass, left / SNOMED CT 246180542 / Confirmed Anemia / SNOMED CT 744335413 / Confirmed Anemia due to chronic kidney disease / SNOMED CT 0145236756 / Confirmed Atonic seizure / SNOMED CT 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 / Confirmed CKD (chronic kidney disease), stage III / SNOMED CT 0896494856 / Confirmed Developmentally disabled / SNOMED CT 4068270861 / Confirmed Abnormal echocardiogram / SNOMED CT 659744102 / Confirmed Fracture of clavicle: right transverse fracture / SNOMED CT 57730435 / Confirmed Elevated glucose / SNOMED CT 9817117539 / Confirmed Hemorrhoids / SNOMED CT 995555025 / Confirmed HTN (hypertension) / SNOMED CT 1523OS3O-3836-2424-3692-DLH045JV11 20 / Confirmed Hyperlipidemia LDL goal <100 / SNOMED CT 32866202 / Confirmed Hyperlipidemia / SNOMED CT 57971971 / Confirmed IFG (impaired fasting glucose) / SNOMED CT 0860546906 / Confirmed Incontinence / SNOMED CT 04851375 / Confirmed Increased BMI (body mass index) / SNOMED CT 69242286 / Confirmed Mental disability / SNOMED CT 104111665 / Confirmed IBS (irritable bowel syndrome) / SNOMED CT 24014858 / Confirmed Leukocytosis / SNOMED CT 265448317 / Confirmed Non-smoker / SNOMED CT 04376016 / Confirmed Osteoporosis / SNOMED CT 781915333 / Confirmed Screening for cholesterol level / SNOMED CT 431217171 / Confirmed Screening mammogram, encounter for / SNOMED CT 841923608 / Confirmed Risk and functional assessment / SNOMED CT 727970816 / Confirmed Post-menopausal / SNOMED CT 197116551 / Confirmed Psoriasis / SNOMED CT 42609537 / Confirmed Renal mass, right / SNOMED CT 797651079 / Confirmed Seasonal allergies / SNOMED CT 1875666750 / Confirmed Seasonal asthma / SNOMED CT 8987189114 / Confirmed Seizure disorder / SNOMED CT 555549068 / Confirmed 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 Post-operative state (95838717): Resolved. Procedure history: Echocardiogram ([id number]) on 12/24/2022 at 67 Years. Comments: 02/06/2023 [...] atrium: The atrium is mildly dilated Echocardiogram (6180843935) on 12/12/2021 at 66 Years. Comments: 12/20/2021 [...] Tricuspid valve: There is trivial regurgitation. Echocardiogram ([id number]) on 12/20/2020 at 65 Years. Comments: 01/03/2021 13:38 FEDERICOT Clarissa Gutiérrez MA (ABR-OE) EF 60-65% ORIF - Open reduction and internal fixation of fracture (871878110) on 04/23/2014 at 58 Years. Comments: 12/13/2015 8:51 EDT - MIKALA BUCIO right foot Oophorectomy (006287374) in 2002 at 46 Years. Lumpectomy of breast (9607767023). Comments: 04/20/2014 13:30 MIKALA ABBOTT Left Social History Social & Psychosocial Habits Alcohol 4Risk Assessment: Denies Alcohol Use 08/02/2023 Use: Never Substance Abuse 08/02/2023isk Assessment: Denies Substance Abuse 08/02/2023 Use: Never Tobacco 08/02/2023isk Assessment: Denies Tobacco Use 08/02/2023 Tobacco Use: Never (less than 100 in l Exposure to Tobacco Smoke Lives in non-smoking home Home/Environment 08/02/2023 Primary Patient Financial Advocate: Self and sister Nutrition/Health 08/02/2023 Caffeine intake amount: none . Physical Examination General: No acute distress. Airway: Mallampati classification: III (soft palate, base of uvula visible). Head: Normocephalic. Dentition Evaluation: Intact, Own teeth, Denies loose/chipped teeth. Respiratory: Respirations are non-labored. Cardiovascular: Normal rate. Heart Sounds: Normal. Neurologic: Alert. Review / Management Documentation reviewed: Current records, Reviewed prior records. Assessment and Plan [place] [employer] Anesthesiologists (ASA) physical status classification: Class III. h/o seizures, CKD, anemia, htn, hld Anesthetic Preoperative Plan Anesthetic technique: General. Induction: intravenously. Maintenance airway: Oral endotracheal tube. Postoperative pain management: Per surgeon. Risks discussed: nausea, vomiting, headache, sore throat, dental injury, hypotension, allergic reaction, serious complications. Informed consent: signed by patient. Digitally Signed by JM LIU MD on 08/09/2023 11:21 AM [facility] 08-08-2023 Note SINUS RHYTHM Electronic Signature: PAVEL PAYAN MD 08/09/2023 11:38:30 [facility] 08-08-2023 Neurology Progress note Date of Service [...] also recommended that she be transferred to [facility] for an EEG to exclude nonconvulsive status epilepticus. Her exam today appears unchanged. No further clinical seizures have been observed by staff. Spoke with POA Jorge sister, who reports at baseline she [...] by PUJA GUSMAN on 08/08/2023 02:23 PM [facility] 08-07-2023 Note PROCEDURE TYPE: Routine inpatient EEG [...] GUTIERREZ PENA MD on 08/07/2023 03:13 PM [facility] 08-06-2023 Note ORIGINAL EXAMINATION: ONE XRAY VIEW [...] 08/06/2023 10:43:49 AM Ordering Provider: BRITT LOPEZ [facility] 08-05-2023 Neurology Consult note Date of Service [...] also recommended that she be transferred to [facility] for an EEG to exclude nonconvulsive [...] 1250 mcg (50,000 intl units) oral capsule, [address] International_Unit= 1 cap(s), Oral, qmonth, 4 refills [...] Use, 11/19/2017 Use: Never., 10/15/2018 Home/Environment Primary Patient Financial Advocate: Self and sister., 05/12/2019 Nutrition/Health Caffeine intake [...] GUTIERREZ PENA MD on 08/05/2023 03:26 PM [facility] 08-05-2023 Note PROCEDURE TYPE: Routine inpatient EEG [...] GUTIERREZ PENA MD on 08/05/2023 02:41 PM [facility] 08-05-2023 Nurse Progress note mitt restraints discontinued in favor of soft limb wrist restraints during previous shift. Soft limb restraints alone used from 0700 until further documentation Digitally Signed by David Zamora RN on 08/05/2023 10:15 AM [facility] 08-04-2023 History and physical note Date of Service 08/04/23 Chief Complaint Seizure History of Present Illness 67-year-old female with PMHx seizures, developmentally disabled, HTN, HLD, obesity presents to the hospital as a transfer from [facility] for seizures. History is obtained by [...] Abnormal (08/02/23 11:23:00) UA RBC: None Seen (08/02/23:23:00) UA WBC: 0-5 Abnormal (08/02/23:23:00) UA Squam Epithelial: None Seen (08/02/23 11:23:00) [...] Use, 11/19/2017 Use: Never., 10/15/2018 Home/Environment Primary Patient Financial Advocate: Self and sister., 05/12/2019 Nutrition/Health Caffeine intake [...] JEANNE VAN MD on 08/05/2023 12:01 AM [facility] 08-04-2023 Note Abnormal inferior Q waves Baseline wander in lead(s) II,III,aVR,aVF Compared to ECG at 02/24/2022 10:25:35 BORDERLINE ECG Electronic Signature: ALMAAIDEN DO 08/04/2023 15:37:41 [facility] 08-04-2023 Note ORIGINAL EXAMINATION: CTA OF THE [...] Sign Date: 08/04/2023 3:24:32 PM Ordering Provider: [facility] 08-04-2023 Neurology Consult note Date of Service 08/04/2023 Reason for Consultation Consent: I discussed the risks and benefits of a telehealth visit and I obtained the patient s or legally authorized car sales representative s informed verbal consent to conduct this assessment using telehealth tools with visual and audio. All of the patient s or legally authorized car sales representative s questions regarding the telehealth interaction were addressed. I provided my name and disclosed to the patient or legally authorized car sales representative my licensure, certification, or registration. [...] and the consulting provider. Location of Patient: [facility] Emergency Department Physician Guide Domestic Tour: [ enter conduit cleaner stroke Providers name here ] Location and [...] 1250 mcg (50,000 intl units) oral capsule, 59523 International_Unit= 1 cap(s), Oral, qmonth, 4 refills [...] Use, 11/19/2017 Use: Never., 10/15/2018 Home/Environment Primary Patient Financial Advocate: Self and sister., 05/12/2019 Nutrition/Health Caffeine intake [...] DOTTY HARPER MD on 08/04/2023 03:05 PM [facility] 08-04-2023 Note ORIGINAL EXAMINATION: ONE XRAY VIEW [...] Sign Date: 08/04/2023 3:19:38 PM Ordering Provider: [facility] 08-04-2023 Note ORIGINAL EXAMINATION: CTA [...] Date: 08/04/2023 3:33:32 PM Ordering Provider: AIDEN [facility] 08-04-2023 Evaluation + Plan note Extrac daniela from: Title:History and Physical Author:SEAN VAN MD Date:08/04/23 Acute speech abnormality. Pe r report, [...] 07:00:00 AM Scheduled Provider:FISH JORDAN APRN - [facility] Location:[facility] Appointment Type:PC OV Future Scheduled Tests Laboratory* Levetiracetam (Keppra), S 12/21/23 * A1C Hemoglobin 12/21/23 * Complete Blood Count 12/21/23 * Lipid Profile 12/21/23 * Albumin/Creatinine Ratio, Random Urine 12/21/23 * Microalbumin Level Urine 12/15/22 * PTH, Intact 12/21/23 * Vitamin D Level 12/21/23 * Valproic Acid Level 12/21/23 * Complete Metabolic Panel 12/21/23 [facility] 04-21-2024 Note ORIGINAL EXAMINATION: CT OF THE [...] Sign Date: 08/04/2023 2:10:24 PM Ordering Provider: [facility]09-11-2023 Note* Exam Date Time Procedure Performing Provider Status 12/24/22 9:19 AM Echocardiogram, Adult (AOH) Auth (Verified) [facility] 11-17-2022 Note ORIGINAL EXAMINATION: MRI OF THE [...] Date: 03/01/2022 5:17:53 PM Ordering Provider: FISH NIKKI [facility]11-17-2022 Note ORIGINAL EXAMINATION: MRI OF THE ABDOMEN [...] Sign Date: 03/01/2022 5:17:53 PM [facility]ing Provider: [facility]-12[facility]22 Hospital Discharge instructions Patient Education 02/24/2022 13:35:26 [...] sleep patterns Cause muscle strain Harm digestion 7003-9469 [employer]. [address] [place] [address], [place] [address]. All rights reserved. This information is not [...] loosen secretions in the nose and lungs. Rspj-izu-psjbhvv cold medicines will not shorten the length of time you re sick, but they may be helpful for the following symptoms: cough, sore throat, and nasal and sinus congestion. If you take prescription medicines, ask your healthcare provider or pharmacist which yrtn-xao-pevacjs medicines are safe to use. (Note: Don't [...] it goes along with a muffled voice [phone] [employer]. [address] [place] [address]. All rights reserved. This information is not [...] for diarrhea, vomiting, or a high fever. 2845-1473 [employer]. [address] [place] [address], [place] [address]. All rights reserved. This information is not intended as a substitute for professional medical care. Always follow yourhealthcare professional's instructions. Follow Up Care 02/24/2022 09:23:27 With:Keep your appointment for the scheduled EEG. Address:Unknown When:2-4 days With:FISH JORDAN Address: [address] [place] [address]- Business (1) When:2-4 days Comments:Return to ED if symptoms worsen [facility] 11-12-2022 Note Discharge Instructions Thank you for allowing [facility] to assist you with your healthcare needs. [...] to ED if symptoms worsen Where: [address] [place] [address]- Business (1) Allergies NKA Medications Please ask [...] sleep patterns Cause muscle strain Harm digestion [phone] [employer] [place] [address]. All rights reserved. This information is not [...] loosen secretions in the nose and lungs. Gdmm-qqn-zjltwns cold medicines will not shorten the length of time you re sick, but they may be helpful for the following symptoms: cough, sore throat, and nasal and sinus congestion. If you take prescription medicines, ask your healthcare provider or pharmacist which gcmb-tzb-ufvszaj medicines are safe to use. (Note: Don't [...] it goes along with a muffled voice [phone] [employer]. [address] [place] [address]. All rights reserved. This information is not [...] for diarrhea, vomiting, or a high fever. 4811-9403 [employer]. [address] [place] [address]. All rights reserved. This information is not intended as a substitute for professional medical care. Always follow yourhealthcare professional's instructions. Additional Information VACCINATE! IT SAVES LIVES! Members of the community who have not yet received the COVID-19 vaccine and would like to receive it can visit one of [facility] vaccine clinics. There are many vaccine clinic locations within the [facility]. For locations and available times, please visit [email or web address]. It is important to note that some COVID mobile vaccine clinics are held outdoors and may be canceled in rainy orstormy conditions. To learn more about pediatric vaccinations (ages 5-11), we invite you to visit the [facility] webpage. [email or web address]-Gxhvhrjaur-[email or web address]-Ice stions.htmlTo learn more about the COVID-19 vaccine, we invite you to visit the [facility] website for a list of frequently asked questions. [email or web address]-[email or web address] _[email or web address].pdf [facility] Patient Portal Access Instructions: Stay connected with your healthcare team and access your personal medical information anytime with the [facility] Patient Portal. If you would like a full copy of your medical records please contact the [facility] Medical Records Department Saturday through Saturday between 8a.m. and 4:30p.m. Please follow the directions below to access the portal: 1.Access the email account you provided upon registration to the [facility].2.Look for an invitation email from [facility].3.Open the email and access the invitation link: Accept Invitation to [facility]4.Fill in the required spicer to create your account. Sign into [email or web address] with your username and password that you [...] you will allow to register on the [facility] Patient Portal for access to your information. You can also access the [facility] Patient Portal on the jobsite123 amaury. Simply click on "Health Records" under "SocialOptimizrDaHemoteq" and then click on the [employer] logo. HOW TO SAFELY DISPOSE OF PRESCRIPTION [...] Call your local pharmacy or go to [email or web address] to find one close to you.3.Make use of household items: Use cat litter or old coffee grounds to dispose medications if other options arenot available. Mix your drugs with these household products, seal them in an airtight container andthrow it into the garbage. Call [facility]: [phone] to be sure your drugs can be [...] aware that I should contact my doctor. Patient/Community Health Planning Director Signature: Date/Time: Relationship to Patient: Witness Name/Signature: Date/Time: [facility]11-12-2022 Note ORIGINAL EXAMINATION: CT OF THE ABDOMEN AND PELVIS WITH TOKQSOWJ73/12/2022 11:[address] ABDOMEN/PELVIS WITH CONTRAST TECHNIQUE: [...] Sign Date: 02/24/2022 12:23:00 PM Ordering Provider: [facility]11-12-2022 Note ORIGINAL EXAMINATION: CT OF [...] Sign Date: 02/24/2022 12:13:11 PM Ordering Provider: KYLE TELLO [facility]11-12-2022 Note ORIGINAL EXAMINATION: CT OF THE ABDOMEN AND PELVIS WITH HYQSDSEO32/12/2022 11:[address] ABDOMEN/PELVIS WITH CONTRAST TECHNIQUE: [...] Sign Date: 02/24/2022 12:23:00 PM Ordering Provider: [facility]11-12-2022 Note ORIGINAL EXAMINATION: CT OF THE HEAD [...] Sign Date: 02/24/2022 12:13:11 PM Ordering Provider: [facility]11-12-2022 Note ORIGINAL EXAMINATION: ONE XRAY VIEW OF [...] Sign Date: 02/24/2022 10:42:45 AM Ordering Provider: [facility]11-12-2022 Note ORIGINAL EXAMINATION: ONE XRAY [...] Sign Date: 02/24/2022 10:42:45 AM Ordering Provider: [facility]11-12-2022 SARS-CoV-2 (COVID-19) RNA ADAM+probe Ql (Nph)Negative *NA* (02/24/22 9:54 AM)AO Auto Urine [id number] Hospital Discharge instructions Patient Education 03/18/2021 19:26:47 [...] drainage, or pus coming from the wound [phone] [employer]. [address] [place] [address], [place] [address]. All rights reserved. This information is not [...] told. 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 [address] [place] [address]. All rights reserved. This information is not [...] swelling in the outer vaginal area (labia) 6194-5448 [employer]. [address] [place] [address]. All rights reserved. This information is not intended as a substitute for professional medical care. Always follow yourhealthcare professional's instructions. Follow Up Care 03/18/2021 15:01:02 With:ANTONIO LYONS Address: [address] [facility] [place] [phone] Business (1) When:2-4 days With:NANCIE SHIELDS Address: [address] [facility] [place] [phone] Business (1) When:Within 2 Day(s) With:FISH JORDAN Address: [address] [facility] [place] [address]- Business (1) When:2-4 days Comments:Return to ED if symptoms worsen [facility] Evaluation + Plan note Future Appointments Appointment Date:05/26/2021 08:00:00 AM Scheduled Provider: Location:[facility] Appointment Type:PC Nurse Lab Appointment Date:06/02/2021 08:20:00 AM Scheduled Provider:FISH JORDAN APRN, CNP Location:[facility] Appointment Type:PC OV Follow Up Appointment Date:12/12/2021 11:00:00 AM Scheduled Provider: Location:[facility] Appointment Type:CV Procedure - AO Echo Diagnostic [...] Level 05/27/21 * Complete Metabolic Panel 05/27/21 [facility] Evaluation + Plan note Future Appointments Appointment Date:12/20/2021 09:45:00 AM Scheduled Provider: Location:[facility] Appointment Type:CV OV Appointment Date:06/07/2022 08:00:00 AM Scheduled Provider: Location:[facility] Appointment Type:PC Nurse Lab Appointment Date:06/14/2022 04:00:00 PM Scheduled Provider:FISH JORDAN APRN, CNP Location:[facility] Appointment Type:PC OV Follow Up Future Scheduled Tests Laboratory* Levetiracetam Level 06/09/22 * Complete Blood Count 06/09/22 * Lipid Profile 06/09/22 * Microalbumin Level Urine 06/09/22 * Vitamin D Level 06/09/22 * Complete Metabolic Panel 06/09/22 [facility] [facility] Plan note Future Appointments Appointment [...] Level 06/09/22 * Complete Metabolic Panel 06/09/22 [facility] Evaluation + Plan note Future Appointments Appointment Date:02/27/2022 08:40:00 AM Scheduled Provider:FISH JORDAN APRN, CNP Location:[facility] Appointment Type:PC OV Appointment Date:06/07/2022 08:00:00 AM Scheduled Provider: Location:[facility] Appointment Type:PC Nurse Lab Appointment Date:06/14/2022 04:00:00 PM Scheduled Provider:FISH JORDAN APRN, CNP Location:[facility] Appointment Type:PC OV Follow Up Appointment Date:12/20/2022 09:00:00 AM Scheduled Provider: Location:[facility] Appointment Type:CV Procedure - AOH Echo Diagnostic Tests Pending * Urine Culture 02/24/22 * Levetiracetam Level 02/24/22 Future Scheduled Tests Laboratory* Levetiracetam Level 06/09/22 * Complete Blood Count 06/09/22 * Lipid Profile 06/09/22 * Microalbumin Level Urine 06/09/22 * Vitamin D Level 06/09/22 * Complete Metabolic Panel 06/09/22 [facility] Evaluation + Plan note Future Appointments Appointment [...] Panel 06/09/22 * Complete Metabolic Panel 02/27/22 [facility] evaluation + Plan note Future Appointments Appointment Date:04/09/2022 [...] BD Bone Density DEXA Axial Skeleton 04/09/22 [facility] Evaluation + Plan note Future Appointments Appointment [...] Axial Skeleton 04/09/22 * MRI Kidney 09/28/22 [facility] Evaluation + Plan note Future Appointments Appointment [...] Axial Skeleton 04/09/22 * MRI Kidney 09/28/22 [facility] Evaluation + Plan note Future Appointments Appointment [...] Axial Skeleton 04/09/22 * MRI Kidney 09/28/22 [facility] Evaluation + Plan note Future Appointments Appointment Date:12/13/2022 08:30:00 AM Scheduled Provider: Location:[email or web address] Appointment Type:PC Nurse Lab Appointment Date:12/20/2022 09:00:00 AM Scheduled Provider: Location:[facility] Appointment Type:CV Procedure - AOH Echo Appointment Date:12/20/2022 04:00:00 PM Scheduled Provider:FISH JORDAN APRN, CNP Location:[email or web address] Appointment Type: OV Follow Up Future Scheduled Tests Laboratory* [...] BD Bone Density DEXA Axial Skeleton 04/09/22 [facility] Evaluation + Plan note Future Appointments Appointment Date:12/20/2022 07:00:00 AM Scheduled Provider:FISH JORDAN APRN, CNP Location:[email or web address] Appointment Type:PC OV Follow Up Appointment Date:12/20/2022 09:00:00 AM Scheduled Provider: Location:[facility] Appointment Type:CV Procedure - AOH Echo Diagnostic Tests Pending * Renin, Plasma 12/13/22 Future Scheduled Tests Laboratory* Microalbumin Level Urine 12/15/22 Radiology* BD Bone Density DEXA Axial Skeleton 04/09/22 [facility] + Plan note Future Appointments Appointment Date:06/13/2023 08:00:00 AM Scheduled Provider: Location:[facility] Appointment Type:PC Nurse Lab Appointment Date:06/20/2023 07:00:00 AM Scheduled Provider:FISH JORDAN APRN, CNP Location:[email or web address] Appointment Type:PC OV Follow Up Future [...] BD Bone Density DEXA Axial Skeleton 04/09/22 [facility] Evaluation + Plan note Future Appointments Appointment Date:06/20/2023 07:00:00 AM Scheduled Provider:FISH JORDAN APRN, CNP Location:[email or web address] Appointment Type:PC OV Follow Up Future Scheduled Tests Laboratory* Albumin/Creatinine Ratio, Random Urine 06/20/23 * Microalbumin Level Urine 12/15/22 [facility] Evaluation + Plan note Future Appointments Appointment Date:07/05/2023 02:30:00 PM Scheduled Provider: Location:[facility] Appointment Type:CV OV Appointment [...] BD Bone Density DEXA Axial Skeleton 06/20/23 [facility] Evaluation + Plan note Future Appointments Appointment [...] Level 12/21/23 * Complete Metabolic Panel 12/21/23 [facility] Evaluation + Plan note Future Appointments Appointment Date:12/12/2023 08:00:00 AM Scheduled Provider: Location:[facility] Appointment Type:PC Nurse Lab Appointment Date:12/23/2023 07:00:00 AM Scheduled Provider:FISH JORDAN APRN, CNP Location:[facility] Appointment Type:PC OV Diagnostic Tests Pending [...] Level 12/21/23 * Complete Metabolic Panel 12/21/23 [facility] Evaluation noteNo assessment information available [facility] Work Phone: Hospital course Narrative No data available for this section [facility] Hospital Discharge instructions No data available for this section [facility] Progress note No data available for this section [facility] Reason for referral (narrative)No reason for referral [facility] Phone: Summary Purpose Family History [...] Reason for Visit Chief Complaint Admit Date [facility] April 20, 2024 5:00am LABWORK May 21, 2024 5 :00am LABWORK June 22, 2024 5:0 0am Chief Complaint Admit Date [facility] April 20, 2024 5:00am LABWORK May 21, 2024 5 :00am LABWORK June 22, 2024 5:0 0am [facility] July 20, 2024 4: 00am Chief Complaint Admit Date LABWORK May 21, 2024 5 :00am LABWORK June 22, 2024 5:0 0am [facility] July 20, 2024 4: 00am [facility] August 18, 2024 5:00 am Chief Complaint Admit Date [facility] October 01, 2024 5: 00am [facility] October 09, 2024 5: 00am [facility] October 13, 2024 5:0 0am [facility] November 18, 2024 5 :00am [facility] December 21 5:00am Additional Source Comments Care Team (unrecognized sect ion and content) Care Team Personnel Name: FISH JORDAN JUVENILE COURT JUDGE - EMBOSSING PRESS OPERATOR APPRENTICE Position: P4 Advanced Practice Nurse Member Role: Primary Care Physician Address: Address: [address] [place] [address]- Care Team Related Persons Name: JORGE PEÑA Address: Home [address] [place], [place] [phone] [place] Name: KIMBERLY PEÑA Care Team Personnel Name: FISH JORDAN JUVENILE COURT JUDGE - EMBOSSING PRESS OPERATOR APPRENTICE Position: P4 Advanced Practice Nurse Member Role: Primary Care Physician Address: Address: [address] [place] [address]- Care Team Related Persons Name: JORGE PEÑA Address: Home [address] [place], [place] [phone] [place] Name: KIMBERLY PEÑA Care Team Personnel Name: FISH JORDAN JUVENILE COURT JUDGE - EMBOSSING PRESS OPERATOR APPRENTICE Position: P4 Advanced Practice Nurse Member Role: Primary Care Physician Address: Address: [address] [place] [address] Care Team Related Persons Name: JORGE PEÑA Address: Home [address] [place], [place] [phone] [place] Name: KIMBERLY PEÑA Care Team Personnel Name: FISH JORDAN JUVENILE COURT JUDGE - EMBOSSING PRESS OPERATOR APPRENTICE Position: P4 Advanced Practice Nurse Member Role: Primary Care Physician Address: Address: [address] [place] [address] Care Team Related Persons Name: JORGE PEÑA Address: Home [address] [place], [place] [phone] [place] Name: KIMBERLY PEÑA Care Team Personnel Name: FISH JORDAN JUVENILE COURT JUDGE - EMBOSSING PRESS OPERATOR APPRENTICE Position: P4 Advanced Practice Nurse Member Role: Primary Care Physician Address: Address: [address] [place] [phone] [place] Care Team Related Persons Name: JORGE PEÑA Address: Home [address] [place], [place] [phone] [place] Name: KIMBERLY PEÑA Care Team Personnel Name: FISH JORDAN JUVENILE COURT JUDGE - EMBOSSING PRESS OPERATOR APPRENTICE Position: P4 Advanced Practice Nurse Member Role: Primary Care Physician Address: Address: [address] [place] [address] Care Team Related Persons Name: JORGE PEÑA Address: Home [address] [place], [place] [phone] [place] Name: KIMBERLY PEÑA Care Team Personnel Name: FISH JORDAN JUVENILE COURT JUDGE - EMBOSSING PRESS OPERATOR APPRENTICE Position: P4 Advanced Practice Nurse Member Role: Primary Care Physician Address: Address: [address] [place] [address] Care Team Related Persons Name: PEÑA, JORGE Guero Address: Home [address] [place], [place] [phone] [place] Name: KIMBERLY PEÑA Care Team Personnel Name: FISH JORDAN JUVENILE COURT JUDGE - EMBOSSING PRESS OPERATOR APPRENTICE Position: P4 Advanced Portal Developer Member Role: Primary Care Physician Address: Address: [address] [place] [address] Care Team Related Persons Name: JORGE PEÑA Address: Home [address] [place], [place] [phone] [place] Name: KIMBERLY PEÑA Patient Care team informatio n (unrecognized section and content) Team Status: Active Member Role Status Dates Dr. Aiden Wolfe DO Family Provider Active Dr. Aiden Wolfe DO Primary Care Provider Active Team Status: Active Member Role Status Dates Elisa STANFORD MD Attending Provider Active Start: April 20, 2024 Dr. Aiden Wolfe , Primary Care Provider Active Start: April 20, [...] August 18, 2024 End: August 18, 2024 Team Status: Active Member Role/Relationship Status Dates Dr. Aiden Wolfe , Primary care physician Activ e Team Status: Inactive Member Role/Relationship Status Dates Elisa STANFORD MD Attending physician Active Start: October 01, 2024 End: October 01, 2024 Dr. Aiden Wolfe , Primary care physician Activ e Start: October 01, 2024 End: October 01, 2024 Team Status: Active Member Role/Relationship Status Dates Elisa STANFORD MD Attending physician Active Start: October 09, 2024 Dr. Aiden Wolfe , Primary care physician Activ e Start: October 09, 2024 Team Status: Active Member Role/Relationship Status Dates Elisa STANFORD MD Attending physician Active Start: October 13, 2024 Dr. Aiden Wolfe , Primary care physician Activ e Start: October 13, 2024 Team Status: Active Member Role/Relationship Status Dates Elisa STANFORD MD Attending physician Active Start: November 18, 2024 Dr. Aiden Wolfe , Primary care physician Activ e Start: November 18, 2024 Team Status: Active Member Role/Relationship Status Dates Elisa STANFORD MD Attending physician Active Start: December 21, 2024 Elisa STANFORD MD Referring Provider Active Start: December 21, 2024 Team Status: Inactive Member Role/Relationship Status Dates Elisa STANFORD MD Attending physician Active Start: October 13, 2024 End: October 13, 2024 Dr. Aiden Wolfe , Primary care physician Activ e Start: October 13, 2024 End: October 13, 2024 INFORMATION SOURCE (unrecogn ized section and content) DATE CREATED AUTHOR 09/21/2023 [facility] ([place]) DATE CREATED AUTHOR AUTHOR'S ORGANIZ ATION 05/07/2024 [facility] DATE CREATED AUTHOR AUTHOR'S ORGANIZ ATION 02/13/2025 [facility] Goals (unrecognized section and content) Goals [...] BE BASED ON THE PRIMARY CLINICAL RECORDS. [facility]. provides no warranty or guarantee of the accuracy or completeness of information in this document.
[2025-02-18 08:58] LABS: Hematocrit 35.4 % (37-47); Hemoglobin 10.7 g/dL (12.0-15.0); Mean Corp Hgb Conc 30.2 g/dL (32-36); Mean Corpuscular Volume 83.7 fL (81-99); Mean Platelet Vol. 9.7 fl (6.2-12.0); Platelet Count 323 K/mm3 (150-450); RBC Distribution Width CV 16.2 % (11.6-14.6); RBC Distribution Width SD 49.1 fl (35.1-43.9); Red Blood Count 4.23 M/mm3 (4.2-5.4); White Blood Count 8.8 K/mm3 (4.4-11.0)
[2025-02-18 09:20] LABS: AST(SGOT) 70 U/L (<=31); Alanine Aminotransfer ALT/SGPT 36 U/L (<=34); Albumin, Serum 3.9 g/dL (3.4-4.8); Alkaline Phosphatase 79 U/L (35-104); Anion Gap 11 (5-15); BUN 11 mg/dL (4-19); BUN/Creat Ratio 15.9 RATIO (10-20); Calcium,Total 8.9 mg/dL (7.6-11.0); Carbon Dioxide 24.2 mmol/L (21.0-32.0); Chloride 102 mmol/L (98-108); Globulin 3.9 g/dL (2.2-4.2); Glucose 129 mg/dL (70-99); Potassium 4.2 mmol/L (3.3-5.1)
[2025-02-20 08:09] LABS: KEPPRA (LEVETIRACETAM) 85.1 ug/mL (10.0-40.0)
== END ==
LOC: OLS.WCC 05:00
PROVIDERS: PCP Family Medicine; Visit Provider Family Medicine
DX: I10 Essential (primary) hypertension (principal); E66.9 Obesity, unspecified; E78.5 Hyperlipidemia, unspecified
CPT/HCPCS: 36415; 80053; 80177; 85027

== ENCOUNTER → 2025-04-01 20:40 | Outpatient (REF) | payer SELFPAY ==
[2025-04-02 07:31] LABS: Mucous, Urine 0 SEEN /hpf (<or=2+); Red Blood Cells-Urine 0 SEEN /hpf (0-5)
--- OUTSIDE RECORDS SUMMARY | 2025-04-02 07:38 | XMS RPT_ITS | CCD ---
Author Organization [facility] Inform ion Partnership [facility] Care Team Providers Care Auditor Supervisor Name Role Phone NIKKI TOBACCO ROLLER - RALINE, FISH James Primary Care Phys ician NIKKI TOBACCO ROLLER - TALENT SOLUTIONS MANAGER, FISH James Primary Care U navailable NIKKI TOBACCO ROLLER - TALENT SOLUTIONS MANAGER, FISH James Attending U navailable NIKKI TOBACCO ROLLER - TALENT SOLUTIONS MANAGER, FISH James Primary Care U leobardo GAMBLE MD, DR ELISA Clinton Attending Unavailable NIKKI TOBACCO ROLLER - TALENT SOLUTIONS MANAGER, FISH James Primary Care U leobardo DEAN MD, MARJ Attending Unavailable NIKKI TOBACCO ROLLER - TALENT SOLUTIONS MANAGER, FISH James Primary Care U leobardo DEAN MD, MARJ Attending Unavailable NIKKI TOBACCO ROLLER - ARLINE, FISH James Primary Care U leobardo LEONARD MD, [facility] Admitting Unavailable DIANNE VAZQUEZ, DR GALVEZ Attending Unavailable ELIJAH CASAREZ, CHARLY Consulting Unavailable JM LIU MD Consulting Unavailable NIKKI TOBACCO ROLLER - TALENT SOLUTIONS MANAGER, FISH James Consulting U navailable NIKKI TOBACCO ROLLER - TALENT SOLUTIONS MANAGER, FISH James Attending U navailable NIKKI TOBACCO ROLLER - TALENT SOLUTIONS MANAGER, FISH James Primary Care U navailable NIKKI TOBACCO ROLLER - TALENT SOLUTIONS MANAGER, FISH James Attending U navailable NIKKI TOBACCO ROLLER - TALENT SOLUTIONS MANAGER, FISH James Primary Care U navailable NIKKI TOBACCO ROLLER - TALENT SOLUTIONS MANAGER, FISH James Attending U navailable NIKKI TOBACCO ROLLER - TALENT SOLUTIONS MANAGER, FISH James Primary Care U navailable NIKKI TOBACCO ROLLER - TALENT SOLUTIONS MANAGER, FISH James Primary Care U navailable NIKKI TOBACCO ROLLER - TALENT SOLUTIONS MANAGER, FISH James Attending U navailable NIKKI TOBACCO ROLLER - TALENT SOLUTIONS MANAGER, FISH James Attending U navailable NIKKI TOBACCO ROLLER - TALENT SOLUTIONS MANAGER, FISH James Primary Care U navailable NIKKI TOBACCO ROLLER - TALENT SOLUTIONS MANAGER, FISH James Attending U navailable NIKKI TOBACCO ROLLER - TALENT SOLUTIONS MANAGER, FISH James Primary Care U leobardo HARPER [...] Care Provider Elisa Maldonado MD Attending Physician Unavailmary Wolfe DO, Dr. Wolfe Primary Care Physician Elisa Maldonado MD Referring Provider Unavailable Maldonado OLS, Elisa Kemp Attending Unavailable [place], Aiden Primary Care Unavailable Maldonado OLS, Elisa K Attending Unavailable Maldonado OLS, Elisa K Referring Unavailable Maldonado OLS, Elisa K Attending Unavailable Maldonado OLS, Elisa Kemp Attending Unavailable Maldonado OLS, Elisa Kemp Attending Unavailable [place], Aiden Primary Care Unavailable Maldonado OLS, Elisa Kemp Attending Unavailable [place], Aiden Primary Care Unavailable Maldonado OLS, Elisa K Attending Unavailable Maldonado OLS, Elisa Kemp Attending Unavailable Maldonado OLS, Elisa K Referring Unavailable Aiden Wolfe Primary Care Unavailable Maldonado OLS, Elisa Kemp Attending Unavailable [place], Aiden Primary Care Unavailable Maldonado OLS, Elisa K Attending Unavailable Maldonado OLS, Elisa Kemp Attending Unavailable [place], Aiden Primary Care Unavailable Maldonado OLS, Elisa Kemp Attending Unavailable [place], Aiden Primary Care Unavailable Medications Current Medications [...] qDay, # 90 tab(s), 1 Refill(s), Pharmacy: [facility], HTN (hypertension), 159, [...] cough, # 30 cap(s), 0 Refill(s), Pharmacy: [facility], Acute cough, 159, [...] use, # 3 cap(s), 4 Refill(s), Pharmacy: [facility], Vitamin D deficiency, 159, cm, 06/20/23 7:04:00 EST, Height, kg, 06/20/23 7:04:00 EST, Dosing Weight Start Date: 06/20/23 Stop Date: 11/17/23 Status: Ordered Start: 12-20-2022 End: 05-19-2023 cholecalciferol 1250 mcg (50 ,000 intl units) oral capsule Dose : 50,000 International_Unit = 1 cap(s), Oral, qmonth, Failed conservative OTC daily use, # 3 cap(s), 4 Refill(s), Pharmacy: [facility], Vitamin D deficiency, 160, cm, 12/20/22 7:08:00 EDT, Height, kg, 12/20/22 7:08:00 EDT, Dosing Weight Start Date: 12/20/22 Stop Date: 05/19/23 Status: Ordered Start: 06-28-2022 End: 05-19-2023 cholecalciferol 1250 mcg (50 ,000 intl units) oral capsule Dose : 50,000 International_Unit = 1 cap(s), Oral, qmonth, Failed conservative OTC daily use, # 3 cap(s), 4 Refill(s), Pharmacy: [facility], Vitamin D deficiency, 160, cm, 12/20/22 7:08:00 EDT, Height, kg, 12/20/22 7:08:00 EDT, Dosing Weight Start Date: 12/20/22 Stop Date: 05/19/23 Status: Ordered Start: 12-07-2021 End: 06-27-2022 cholecalciferol 1250 mcg (50 ,000 intl units) oral capsule Dose : 50,000 International_Unit = 1 cap(s), Oral, qmonth, Failed conservative OTC daily use, # 2 cap(s), 0 Refill(s), Pharmacy: [facility], Vitamin D deficiency, 160, cm, 03/30/22 15:08:00 EST, Height, kg, 03/30/22 15:08:00 EST, Dosing Weight Start Date: 05/28/22 Stop Date: 06/27/22 Status: Ordered Start: 11-24-2020 End: 08-21-2021 cholecalciferol 1250 mcg (50 ,000 intl units) oral capsule Dose : 50,000 International_Unit = 1 cap(s), Oral, qWeek, Failed conservative OTC daily use, # 13 cap(s), 2 Refill(s), Pharmacy: [facility], Vitamin D deficiency, [...] q2wk, # 2 mL, 12 Refill(s), Pharmacy: [facility], 159, cm, 08/02/23 9:46:00 EDT, Height, kg, 08/02/23 9:46:00 EDT, Dosing Weight Start Date: 08/02/23 Status: Ordered Start: 02-04-2023 inject 1 dose by sub cutaneous injection every other week Repatha SureClick 140 mg/mL subcutaneous solution Dose : 140 mg =, Subcutaneous, q2wk, # 2 mL, 0 Refill(s), Pharmacy: [facility], 160, cm, 12/20/22 7:08:00 EDT, Height, kg, 12/20/22 7:08:00 EDT, Dosing Weight Start Date: 02/04/23 Status: Ordered Start: 10-04-2022 inject 1 dose by sub cutaneous injection every other week Repatha SureClick 140 mg/mL subcutaneous solution Dose : 140 mg =, Subcutaneous, q2wk, # 1 mL, 3 Refill(s), Pharmacy: [facility], 160, cm, 06/14/22 16:06:00 EST, Height, kg, 06/14/22 16:06:00 EST, Dosing Weight Start Date: 10/04/22 Status: Ordered Start: 12-20-2021 inject 1 dose by sub cutaneous injection every other week Repatha SureClick 140 mg/mL subcutaneous solution Dose : 140 mg =, Subcutaneous, q2wk, # 3 mL, 11 Refill(s), Pharmacy: [place] [facility] [address], 160, cm, 12/20/21 10:10:00 EDT, Height, kg, 12/20/21 10:10:00 EDT, Dosing Weight Start Date: 12/20/21 Status: Ordered Start: 11-28-2021 inject 1 dose by sub cutaneous injection every other week Repatha SureClick 140 mg/mL subcutaneous solution Dose : 140 mg =, Subcutaneous, q2wk, # 2 kit(s), 0 Refill(s), Pharmacy: [place] [address], 167, cm, 06/02/21 8:18:00 EST, Height, kg, 06/02/21 8:18:00 EST, Dosing Weight Start Date: 11/28/21 Status: Ordered hydroCHLOROthiazide 25 mg oral tablet (19 sources) Thiazide Diuretic Start: 06-20-2023 End: 12-17-2023 hydroCHLOROthiazide 25 mg oral tablet Dose : 25 mg = 1 tab(s), Oral, qDay, # 90 tab(s), 1 Refill(s), Pharmacy: [place] [address], HTN (hypertension), 159, cm, 06/20/23 7:04:00 EST, Height, kg, 06/20/23 7:04:00 EST, Dosing Weight Start Date: 06/20/23 Stop Date: 12/17/23 Status: Ordered Start: 12-20-2022 End: 06-18-2023 hydroCHLOROthiazide 25 mg or al tablet Dose : 25 mg = 1 tab(s), Oral, qDay, # 90 tab(s), 1 Refill(s), Pharmacy: [place] [address], HTN (hypertension), 160, cm, 12/20/22 7:08:00 EDT, Height, kg, 12/20/22 7:08:00 EDT, Dosing Weight Start Date: 12/20/22 Stop Date: 06/18/23 Status: Ordered Start: 06-14-2022 End: 12-11-2022 hydroCHLOROthiazide 25 mg or al tablet Dose : 25 mg = 1 tab(s), Oral, qDay, # 90 tab(s), 1 Refill(s), Pharmacy: [facility], HTN (hypertension), 160, cm, 06/14/22 16:06:00 EST, Height, kg, 06/14/22 16:06:00 EST, Dosing Weight Start Date: 06/14/22 Stop Date: 12/11/22 Status: Ordered Start: 12-07-2021 End: 06-05-2022 hydroCHLOROthiazide 25 mg or al tablet Dose : 25 mg = 1 tab(s), Oral, qDay, # 90 tab(s), 1 Refill(s), Pharmacy: [facility], HTN (hypertension), 160, cm, 12/07/21 8:16:00 EDT, Height, kg, 12/07/21 8:16:00 EDT, Dosing Weight Start Date: 12/07/21 Stop Date: 06/05/22 Status: Ordered Start: 11-24-2020 End: 08-21-2021 hydroCHLOROthiazide 25 mg or al tablet Dose : 25 mg = 1 tab(s), Oral, qDay, # 90 tab(s), 2 Refill(s), Pharmacy: [facility], HTN (hypertension), 159, cm, 11/24/20 8:03:00 EDT, Height, kg, 11/24/20 8:03:00 EDT, Dosing Weight Start Date: 11/24/20 Stop Date: 08/21/21 Status: Ordered hydroCHLOROthiazide 12.5 mg / irbesartan 300 mg oral tablet (5 sources) Thiazide Diuretic, Angiotensin 2 Receptor Loyd Start: 01-30-2016 hydrocortisone 10 mg/ml / neomycin 3.5 mg/ml / polymyxin b [id number] unt/ml otic suspension (1 source) Aminoglycoside Antibacterial, Polymyxin-class Antibacterial, Corticosteroid Start: 02-27-2022 End: 03-06-2022 hydrocortisone/neom ycin/polymyxin B 1%-0.35%-10,000 units/mL otic suspension Dose = 4 drop(s), Ear, left, TID, shake well before using, X 7 day(s), # 10 mL, 0 Refill(s), Pharmacy: [facility], Acute otitis media with perforation: [...] qDay, # 30 tab(s), 1 Refill(s), Pharmacy: [facility], Seasonal allergies Seasonal asthma, 160, cm, 11/06/22 8:03:00 EDT, Height, kg, 11/06/22 7:59:00 EDT, Dosing Weight Start Date: 11/06/22 Status: Ordered losartan potassium 100 mg oral tablet (20 sources) Angiotensin 2 Receptor Loyd Start: 06-20-2023 End: 12-17-2023 losartan 100 mg oral tablet Dose : 100 mg = 1 tab(s), Oral, qDay, # 90 tab(s), 1 Refill(s), Pharmacy: [facility], HTN (hypertension), 159, cm, 06/20/23 7:04:00 EST, Height, kg, 06/20/23 7:04:00 EST, Dosing Weight Start Date: 06/20/23 Stop Date: 12/17/23 Status: Ordered Start: 12-20-2022 End: 06-18-2023 losartan 100 mg oral tablet Dose : 100 mg = 1 tab(s), Oral, qDay, # 90 tab(s), 1 Refill(s), Pharmacy: [facility], HTN (hypertension), 160, cm, 12/20/22 7:08:00 EDT, Height, kg, 12/20/22 7:08:00 EDT, Dosing Weight Start Date: 12/20/22 Stop Date: 06/18/23 Status: Ordered Start: 06-14-2022 End: 12-11-2022 losartan 100 mg oral tablet Dose : 100 mg = 1 tab(s), Oral, qDay, # 90 tab(s), 1 Refill(s), Pharmacy: [facility], HTN (hypertension), 160, cm, 06/14/22 16:06:00 EST, Height, kg, 06/14/22 16:06:00 EST, Dosing Weight Start Date: 06/14/22 Stop Date: 12/11/22 Status: Ordered Start: 12-07-2021 End: 06-05-2022 losartan 100 mg oral tablet Dose : 100 mg = 1 tab(s), Oral, qDay, # 90 tab(s), 1 Refill(s), Pharmacy: [facility], HTN (hypertension), 160, cm, 12/07/21 8:16:00 EDT, Height, kg, 12/07/21 8:16:00 EDT, Dosing Weight Start Date: 12/07/21 Stop Date: 06/05/22 Status: Ordered Start: 11-24-2020 End: 08-21-2021 losartan 100 mg oral tablet Dose : 100 mg = 1 tab(s), Oral, qDay, # 90 tab(s), 2 Refill(s), Pharmacy: [facility], HTN (hypertension), 159, [...] q2wk, # 2 kit(s), 11 Refill(s), Pharmacy: [facility], 160, cm, 01/09/21 9:17:00 EDT, Height, kg, 01/09/21 9:17:00 EDT, Dosing Weight Start Date: 01/09/21 Status: Ordered Spacer, inhaler (10 sources) Start: 11-06-2022 Spacer, inhale r See Instructions, use as directed Pt has developmental disorder and spacer required to insure proper use of inhaler., # 1 EA, 0 Refill(s), Pharmacy: [facility], Seasonal asthma Developmentally [...] q6h, # 18 gram(s), 1 Refill(s), Pharmacy: [facility], Seasonal asthma Developmentally disabled, 159, cm, 06/20/23 7:04:00 EST, Height, kg, 06/20/23 7:04:00 EST, Dosing Weight Start Date: 06/20/23 Stop Date: 08/19/23 Status: Ordered Start: 12-20-2022 End: 02-18-2023 take 2 puff(s) by inhalation every six hours albuterol MDI (90 mcg/inh) CFC free inhalation aerosol 2 puff(s), Inhalation, q6h, # 18 gram(s), 1 Refill(s), Pharmacy: [facility], Seasonal asthma Developmentally disabled, 160, cm, 12/20/22 7:08:00 EDT, Height, kg, 12/20/22 7:08:00 EDT, Dosing Weight Start Date: 12/20/22 Stop Date: 02/18/23 Status: Ordered Start: 11-06-2022 End: 01-05-2023 take 2 puff(s) by inhalation every six hours albuterol MDI (90 mcg/inh) CFC free inhalation aerosol 2 puff(s), Inhalation, q6h, # 18 gram(s), 1 Refill(s), Pharmacy: [facility], Seasonal asthma Developmentally [...] qHS, # 30 tab(s), 1 Refill(s), Pharmacy: [facility], Seasonal allergies, 159, cm, 11/24/20 8:03:00 EDT, Height, kg, 11/24/20 8:03:00 EDT, Dosing Weight Start Date: 11/24/20 Stop Date: 01/23/21 Status: Ordered montelukast 10 mg oral tablet (14 sources) Leukotriene Receptor Antagonist Start: 11-06-2022 End: 01-05-2023 Singulair 10 mg oral tablet Dose : 10 mg = 1 tab(s), Oral, qDay, # 30 tab(s), 1 Refill(s), Pharmacy: [facility], Seasonal allergies Seasonal asthma, 160, cm, 11/06/22 8:03:00 EDT, Height, kg, 11/06/22 7:59:00 EDT, Dosing Weight Start Date: 11/06/22 Stop Date: 01/05/23 Status: Ordered Start: 06-14-2022 Singulair 10 m g oral tablet Dose : 10 mg = 1 tab(s), Oral, qDay, # 30 tab(s), 1 Refill(s), Pharmacy: [facility], Seasonal asthma, 160, cm, 06/14/22 16:06:00 EST, Height, kg, 06/14/22 16:06:00 EST, Dosing Weight Start Date: 06/14/22 Status: Ordered Start: 12-07-2021 Singulair 10 m g oral tablet Dose : 10 mg = 1 tab(s), Oral, qDay, # 30 tab(s), 1 Refill(s), Pharmacy: [facility], Seasonal asthma, 160, cm, 12/07/21 [...] qDay, # 90 tab(s), 1 Refill(s), Pharmacy: [facility], Hyperlipidemia LDL goal Start Date: 12/20/22 Stop Date: 06/18/23 Status: Ordered Start: 06-14-2022 End: 12-11-2022 rosuvastatin 10 mg oral tabl et Dose : 10 mg = 1 tab(s), Oral, qDay, # 90 tab(s), 1 Refill(s), Pharmacy: [facility], Hyperlipidemia LDL goal Start Date: 06/14/22 Stop Date: 12/11/22 Status: Ordered Start: 12-07-2021 End: 06-05-2022 rosuvastatin 10 mg oral tabl et Dose : 10 mg = 1 tab(s), Oral, qDay, # 90 tab(s), 1 Refill(s), Pharmacy: [facility], Hyperlipidemia LDL goal Start Date: 12/07/21 Stop Date: 06/05/22 Status: Ordered Start: 11-24-2020 End: 08-21-2021 rosuvastatin 10 mg oral tabl et Dose : 10 mg = 1 tab(s), Oral, qDay, # 90 tab(s), 2 Refill(s), Pharmacy: [facility], Hyperlipidemia LDL goal Start Date: 11/24/20 Stop [...] 11-10-2019 Chronic Other aftercare (2 sources) 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; Translations: [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] Onset: 12-29-2024 Episodic Other and ill-defined cerebrovascular disease (2 sources) Cerebrovascular disease, unspecified; Translations: [Cerebrovascular disease, unspecified] Onset: 10-23-2024 Chronic Other diseases of kidney and ureters [...] Test Name Value Interpretation Reference Range Facility [facility] (LEVETIRACETAM)on KEPPRA 85.1 ug/mL Abnormal 10.0-40.0 [facility] Comment on above: Order Comment: 120.1 Result Comment: Perf ormed at: - [facility] [address] [id number] Hris Analyst: Daniel Heredia MD, Phone: [phone] Performed By: #### L 100.0500, [id number] #### [facility] [address] [place], [address] CBC-Complete Blood Cnt No Di ffon 02-18-2025 Erythrocyte distribution width (RBC) [Ratio] 16.2 % High 11.6-14.6 [facility] Comment on above: Order Comment: 120.1 Performed By: #### L 100.0500, [id number] #### [facility] [address] [place], [address] Hematocrit (Bld) [Volume fraction] 35.4 % Low 37-47 [facility] Comment on above: Order Comment: 120.1 Performed By: #### L 100.0500, [id number] #### [facility] [address] [place], [address] Hemoglobin (Bld) [Mass/Vol] 10.7 g/dL Low 12.0-15.0 [facility] Comment on above: Order Comment: 120.1 Performed By: #### L 100.0500, [id number] #### [facility] [address] [place], [address] MCH (RBC) [Entitic mass] 25.3 pg Low 27.0-32.0 [facility] Comment on above: Order Comment: 120.1 Performed By: #### L 100.0500, [id number] #### [facility] [address] [place], [address] MCHC (RBC) [Mass/Vol] 30.2 g/dL Low 32-36 [facility] Comment on above: Order Comment: 120.1 Performed By: #### L 100.0500, [id number] #### [facility] [address] [place], [address] MCV (RBC) [Entitic vol] 83.7 fL Normal 81-99 [facility] Comment on above: Order Comment: 120.1 Performed By: #### L 100.0500, [id number] #### [facility] [address] [place], [address] Platelet mean volume (Bld) [Entitic vol] 9.7 fL Normal 6.2-12.0 [facility] Comment on above: Order Comment: 120.1 Performed By: #### L 100.0500, [id number] #### [facility] [address] [place], [address] Platelets (Bld) [#/Vol] 323 10*3/uL Normal 150-450 [facility] Comment on above: Order Comment: 120.1 Performed By: #### L 100.0500, [id number] #### [facility] [address] [place], [address] RBC (Bld) [#/Vol] 4.23 10*6/uL Normal 4.2-5.4 [facility] Comment on above: Order Comment: 120.1 Performed By: #### L 100.0500, [id number] #### [facility] [address] [place], [address] RDW SD 49.1 fl High 35.1-43.9 [facility] Comment on above: Order Comment: 120.1 Performed By: #### L 100.0500, [id number] #### [facility] [address] [place], [address] WBC (Bld) [#/Vol] 8.8 10*3/uL Normal 4.4-11.0 [facility] Comment on above: Order Comment: 120.1 Performed By: #### L 100.0500, [id number] #### [facility] [address] [place], [address] Comprehensive Metabolic Prof ilon 02-18-2025 Albumin [Mass/Vol] 3.9 g/dL Normal 3.4-4.8 [facility] Comment on above: Order Comment: 120.1 Performed By: #### L 100.0500, [id number] #### [facility] [address] [place], [address] Albumin/Globulin [Mass ratio] 1.0 {ratio} Normal 0.9-2.4 [facility] Comment on above: Order Comment: 120.1 Performed By: #### L 100.0500, [id number] #### [facility] [address] [place], [address] ALK PHOS 79 U/L Normal 35-104 [facility] Comment on above: Order Comment: 120.1 Performed By: #### L 100.0500, [id number] #### [facility] [address] [place], [address] ALT [Catalytic activity/Vol] 36 U/L High <=34 [facility] Comment on above: Order Comment: 120.1 Performed By: #### L 100.0500, [id number] #### [facility] [address] [place], [address] AST [Catalytic activity/Vol] 70 U/L High <=31 [facility] Comment on above: Order Comment: 120.1 Performed By: #### L 100.0500, [id number] #### [facility] [address] [place], [address] Bilirubin [Mass/Vol] 0.20 mg/dL Normal 0.00-1.30 [facility] Comment on above: Order Comment: 120.1 Performed By: #### L 100.0500, [id number] #### [facility] [address] [place], [address] BUN/CRE 15.9 RATIO Normal 10-20 [facility] Comment on above: Order Comment: 120.1 Performed By: #### L 100.0500, [id number] #### [facility] [address] [place], [address] Calcium [Mass/Vol] 8.9 mg/dL Normal 7.6-11.0 [facility] Comment on above: Order Comment: 120.1 Performed By: #### L 100.0500, [id number] #### [facility] [address] [place], [address] Chloride [Moles/Vol] 102 mmol/L Normal 98-108 [facility] Comment on above: Order Comment: 120.1 Performed By: #### L 100.0500, [id number] #### [facility] [address] [place], [address] CO2 [Moles/Vol] 24.2 mmol/L Normal 21.0-32.0 [facility] Comment on above: Order Comment: 120.1 Performed By: #### L 100.0500, [id number] #### [facility] [address] [place], [address] Creatinine [Mass/Vol] 0.71 mg/dL Normal 0.70-1.20 [facility] Comment on above: Order Comment: 120.1 Performed By: #### L 100.0500, [id number] #### [facility] [address] [place], [address] GAP 11 Normal 5-15 [facility] Comment on above: Order Comment: 120.1 Performed By: #### L 100.0500, [id number] #### [facility] [address] [place], [address] GFR/1.73 sq M.predicted among non-blacks MDRD (S/P/Bld) [Vol rate/Area] 93 mL/min/{1.73_m2} Normal >60 [facility] Comment on above: Order Comment: 120.1 Result Comment: mL/m in/1.73m2 CKD-EPI Creatinine Equation (2020) Performed By: #### L 100.0500, [id number] #### [facility] [address] [place], [address] Globulin (S) [Mass/Vol] 3.9 g/dL Normal 2.2-4.2 [facility] Comment on above: Order Comment: 120.1 Performed By: #### L 100.0500, [id number] #### [facility] [address] [place], [address] Glucose [Mass/Vol] 129 mg/dL High 70-99 [facility] Comment on above: Order Comment: 120.1 Performed By: #### L 100.0500, [id number] #### [facility] [address] [place], [address] Potassium [Moles/Vol] 4.2 mmol/L Normal 3.3-5.1 [facility] Comment on above: Order Comment: 120.1 Performed By: #### L 100.0500, [id number] #### [facility] [address] [place], [address] Sodium [Moles/Vol] 137 mmol/L Normal 133-145 [facility] Comment on above: Order Comment: 120.1 Performed By: #### L 100.0500, [id number] #### [facility] [address] [place], [address] T PROT 7.8 g/dL Normal 5.9-8.4 [facility] Comment on above: Order Comment: 120.1 Performed By: #### L 100.0500, [id number] #### [facility] [address] [place], [address] Urea nitrogen [Mass/Vol] 11 mg/dL Normal 4-19 [facility] Comment on above: Order Comment: 120.1 Performed By: #### L 100.0500, [id number] #### [facility] [address] [place], [address] Anion gap in Serum or Plasma Ordered By: Elisa Maldonado on 12-21-2024 Anion gap [Moles/Vol] 13 mmol/L 5-15 [facility] BUN/creatinine ratioOrdered By: Elisa Maldonado on 12-21-2024 Urea nitrogen/Creatinine [Mass ratio] 19.3 mg/mg 10- [facility] Bilirubin, totalOrdered By: Elisa Maldonado on 12-21-2024 Bilirubin [Mass/Vol] 0.20 mg/dL 0.00-1.30 [facility] CBC-Complete Blood Cnt No Di ffon 12-21-2024 Erythrocyte distribution width (RBC) [Ratio] 15.4 % High 11.6-14.6 [facility] Comment on above: Order Comment: 120-1 Performed By: #### L 100.0500, [id number] #### [facility] [address] [place], [address] Hematocrit (Bld) [Volume fraction] 32.9 % Low 37-47 [facility] Comment on above: Order Comment: 120-1 Performed By: #### L 100.0500, [id number] #### [facility] [address] [place], [address] Hemoglobin (Bld) [Mass/Vol] 10.5 g/dL Low 12.0-15.0 [facility] Comment on above: Order Comment: 120-1 Performed By: #### L 100.0500, L500.4050 #### [facility] [address] [place], [address] MCH (RBC) [Entitic mass] 26.4 pg Low 27.0-32.0 [facility] Comment on above: Order Comment: 120-1 Performed By: #### L 100.0500, L500.4050 #### [facility] [address] [place], [address] MCHC (RBC) [Mass/Vol] 31.9 g/dL Low 32-36 [facility] Comment on above: Order Comment: 120-1 Performed By: #### L 100.0500, L500.4050 #### [facility] [address] [place], [address] MCV (RBC) [Entitic vol] 82.9 fL Normal 81-99 [facility] Comment on above: Order Comment: 120-1 Performed By: #### L 100.0500, L500.4050 #### [facility] [address] [place], [address] Platelet mean volume (Bld) [Entitic vol] 10.1 fL Normal 6.2-12.0 [facility] Comment on above: Order Comment: 120-1 Performed By: #### L 100.0500, L500.4050 #### [facility] [address] [place], [address] Platelets (Bld) [#/Vol] 344 10*3/uL Normal 150-450 [facility] Comment on above: Order Comment: 120-1 Performed By: #### L 100.0500, L500.4050 #### [facility] [address] [place], [address] RBC (Bld) [#/Vol] 3.97 10*6/uL Low 4.2-5.4 [facility] Comment on above: Order Comment: 120-1 Performed By: #### L 100.0500, L500.4050 #### [facility] [address] [place], [address] RDW SD 46.3 fl High 35.1-43.9 [facility] Comment on above: Order Comment: 120-1 Performed By: #### L 100.0500, L500.4050 #### [facility] [address] [place], [address] WBC (Bld) [#/Vol] 10.0 10*3/uL Normal 4.4-11.0 [facility] Comment on above: Order Comment: 120-1 Performed By: #### L 100.0500, L500.4050 #### [facility] [address] [place], [address] Carbon dioxide, total [Moles /volume] in Central venous bloodOrdered By: Elisa Maldonado on 12-21-2024 CO2 [Moles/Vol] 22.5 mmol/L 21.0-32.0 [facility] Chloride assayOrdered By: Lanette Maldonado on 12-21-2024 Chloride [Moles/Vol] 100 mmol/L 98-108 [facility] Comprehensive Metabolic Prof ilon 12-21-2024 Albumin [Mass/Vol] 3.9 g/dL Normal 3.4-4.8 [facility] Comment on above: Order Comment: 120-1 Performed By: #### L 100.0500, L500.4050 #### [facility] [address] [place], [address] Albumin/Globulin [Mass ratio] 1.0 {ratio} Normal 0.9-2.4 [facility] Comment on above: Order Comment: 120-1 Performed By: #### L 100.0500, L500.4050 #### [facility] [address] [place], [address] ALK PHOS 83 U/L Normal 35-104 [facility] Comment on above: Order Comment: 120-1 Performed By: #### L 100.0500, L500.4050 #### [facility] [address] [place], [address] ALT [Catalytic activity/Vol] 44 U/L High <=34 [facility] Comment on above: Order Comment: 120-1 Performed By: #### L 100.0500, L500.4050 #### [facility] [address] [place], [address] AST [Catalytic activity/Vol] 86 U/L High <=31 [facility] Comment on above: Order Comment: 120-1 Performed By: #### L 100.0500, L500.4050 #### [facility] [address] [place], [address] Bilirubin [Mass/Vol] 0.20 mg/dL Normal 0.00-1.30 [facility] Comment on above: Order Comment: 120-1 Performed By: #### L 100.0500, L500.4050 #### [facility] [address] [place], [address] BUN/CRE 19.3 RATIO Normal 10-20 [facility] Comment on above: Order Comment: 120-1 Performed By: #### L 100.0500, L500.4050 #### [facility] [address] [place], [address] Calcium [Mass/Vol] 10.6 mg/dL Normal 7.6-11.0 [facility] Comment on above: Order Comment: 120-1 Performed By: #### L 100.0500, L500.4050 #### [facility] [address] [place], [address] Chloride [Moles/Vol] 100 mmol/L Normal 98-108 [facility] Comment on above: Order Comment: 120-1 Performed By: #### L 100.0500, L500.4050 #### [facility] [address] [place], [address] CO2 [Moles/Vol] 22.5 mmol/L Normal 21.0-32.0 [facility] Comment on above: Order Comment: 120-1 Performed By: #### L 100.0500, L500.4050 #### [facility] [address] [place], [address] Creatinine [Mass/Vol] 0.67 mg/dL Low 0.70-1.20 [facility] Comment on above: Order Comment: 120-1 Performed By: #### L 100.0500, L500.4050 #### [facility] [address] [place], [address] GAP 13 Normal 5-15 [facility] Comment on above: Order Comment: 120-1 Performed By: #### L 100.0500, L500.4050 #### [facility] [address] [place], [address] GFR/1.73 sq M.predicted among non-blacks MDRD (S/P/Bld) [Vol rate/Area] 95 mL/min/{1.73_m2} Normal >60 [facility] Comment on above: Order Comment: 120-1 Result Comment: mL/m in/1.73m2 CKD-EPI Creatinine Equation (2020) Performed By: #### L 100.0500, L500.4050 #### [facility] [address] [place], [address] Globulin (S) [Mass/Vol] 4.1 g/dL Normal 2.2-4.2 [facility] Comment on above: Order Comment: 120-1 Performed By: #### L 100.0500, L500.4050 #### [facility] [address] [place], [address] Glucose [Mass/Vol] 142 mg/dL High 70-99 [facility] Comment on above: Order Comment: 120-1 Performed By: #### L 100.0500, L500.4050 #### [facility] [address] [place], [address] Potassium [Moles/Vol] 4.5 mmol/L Normal 3.3-5.1 [facility] Comment on above: Order Comment: 120-1 Performed By: #### L 100.0500, L500.4050 #### [facility] [address] [place], [address] Sodium [Moles/Vol] 136 mmol/L Normal 133-145 [facility] Comment on above: Order Comment: 120-1 Performed By: #### L 100.0500, L500.4050 #### [facility] [address] [place], [address] T PROT 8.0 g/dL Normal 5.9-8.4 [facility] Comment on above: Order Comment: 120-1 Performed By: #### L 100.0500, L500.4050 #### [facility] [address] [place], [address] Urea nitrogen [Mass/Vol] 13 mg/dL Normal 4-19 [facility] Comment on above: Order Comment: 120-1 Performed By: #### L 100.0500, L500.4050 #### [facility] [address] [place], [address] Erythrocyte distribution wid th ratioOrdered By: Elisa Maldonado on 12-21-2024 Erythrocyte distribution width (RBC) [Ratio] 15.4 % High 11.6-14.6 [facility] Erythrocyte distribution wid th standard deviationOrdered By: Elisa Maldonado on 12-21-2024 Erythrocyte distribution width (RBC) [Ratio] 46.3 fl High 35.1-43.9 [facility] Glomerular filtration rate ( GFR) estimation/1.73 sq m using serum, plasma, or whole bOrdered By: Elisa Maldonado on 12-21-2024 GFR/1.73 sq M.predicted among non-blacks MDRD (S/P/Bld) [Vol rate/Area] 95 mL/min/{1.73_m2} >60 [facility] Comment on above: mL/min/1.73m2 CKD-EP I Creatinine Equation (2020) Hematocrit Auto (Bld) [Volum e fraction]Ordered By: Elisa Maldonado on 12-21-2024 Hematocrit (Bld) [Volume fraction] 32.9 % Low 37-47 [facility] Hemoglobin measurementOrdere d By: Elisa Maldonado on 12-21-2024 Hemoglobin (Bld) [Mass/Vol] 10.5 g/dL Low 12.0-15.0 [facility] - Chemistry and C hemistry - challengeOrdered By: Elisa Maldonado on 12-21-2024 AST [Catalytic activity/Vol] 86 U/L High <32 [facility] MCV (mean corpuscular volume ) determinationOrdered By: Elisa Maldonado on 12-21-2024 MCV (RBC) [Entitic vol] 82.9 fL 81-99 [facility] Mean corpuscular hemoglobin (MCH) determinationOrdered By: Elisa Maldonado on 12-21-2024 MCH (RBC) [Entitic mass] 26.4 pg Low 27.0-32.0 [facility] Mean corpuscular hemoglobin concentration (MCHC) determinationOrdered By: Elisa Maldonado on 12-21-2024 MCHC (RBC) [Mass/Vol] 31.9 g/dL Low 32-36 [facility] Mean platelet volume determi nationOrdered By: Elisa Maldonado on 12-21-2024 Platelet mean volume (Bld) [Entitic vol] 10.1 fL 6.2-12.0 [facility] Platelet countOrdered By: Lanette Maldonado on 12-21-2024 Platelets (Bld) [#/Vol] 344 10*3/uL 150-450 [facility] Potassium measurement (mass/ volume)Ordered By: Elisa Maldonado on 12-21-2024 Potassium (Unsp spec) [Mass/Vol] 4.5 mmol/L 3.3-5.1 [facility] RBC Auto (Bld) [#/Vol]Ordere d By: Elisa Maldonado on 12-21-2024 RBC (Bld) [#/Vol] 3.97 10*6/uL Low 4.2-5.4 [facility] Serum creatinine measurement (mass/volume)Ordered By: Elisa Maldonado on 12-21-2024 Creatinine [Mass/Vol] 0.67 mg/dL Low 0.70-1.20 [facility] Serum globulin measurementOr dered By: Elisa Maldonado on 12-21-2024 Globulin (S) [Mass/Vol] 4.1 g/dL 2.2-4.2 [facility] Serum glucose measurement (m ass/volume)Ordered By: Elisa Maldonado on 12-21-2024 Glucose [Mass/Vol] 142 mg/dL High 70-99 [facility] Serum or plasma alanine curry otransferase (ALT) measurementOrdered By: Elisa Maldonado on 12-21-2024 ALT [Catalytic activity/Vol] 44 U/L High <35 [facility] Serum or plasma albumin emily urement (mass/volume)Ordered By: Elisa Maldonado on 12-21-2024 Albumin [Mass/Vol] 3.9 g/dL 3.4-4.8 [facility] Serum or plasma albumin/glob ulin mass ratioOrdered By: Elisa Maldonado on 12-21-2024 Albumin/Globulin [Mass ratio] 1.0 {ratio} 0.9-2.4 [facility] Serum or plasma alkaline mago sphatase measurementOrdered By: Elisa Maldonado on 12-21-2024 ALP [Catalytic activity/Vol] 83 U/L 35-104 [facility] Serum or plasma calcium emily urement (mass/volume)Ordered By: Elisa Maldonado on 12-21-2024 Calcium [Mass/Vol] 10.6 mg/dL 7.6-11.0 [facility] Serum or plasma urea nitroge n measurement (mass/volume)Ordered By: Elisa Maldonado on 12-21-2024 Urea nitrogen [Mass/Vol] 13 mg/dL 4-19 [facility] Sodium levelOrdered By: Elisa Maldonado on 12-21-2024 Sodium [Moles/Vol] 136 mmol/L 133-145 [facility] Total proteinOrdered By: Clif Maldonado on 12-21-2024 Protein [Mass/Vol] 8.0 g/dL 5.9-8.4 [facility] White blood cell (WBC) count Ordered By: Elisa Maldonado on 12-21-2024 WBC (Bld) [#/Vol] 10.0 10*3/uL 4.4-11.0 [facility] Serum or plasma valproate me asurement (mass/volume)Ordered By: Elisa Maldonado on 11-18-2024 Valproate [Mass/Vol] 69 ug/mL 50-100 [facility] Comment on above: Valproic Acid concen trations >100 ug/mL are potentially toxic. Valproic Acid (Depakene) Lev alpa 11-18-2024 VALPROIC ACID 69 ug/mL Normal 50-100 [facility] Comment on above: Order Comment: 120-1 Result Comment: Valp roic Acid concentrations >100 ug/mL are potentially toxic. Performed By: #### L 100.0500, L500.4050 #### [facility] [address] [place], [place], [id number] Vitamin D,25 Hydroxyon 11-18 Vitamin D 25-OH 28.1 ng/mL Low 30-100 [facility] Comment on above: Order Comment: 120-1 Result Comment: Debo min D Status Deficiency: <20 ng/mL (50nmol/L) Insufficiency: 20-30 ng/mL (50-75 nmol/L) Sufficiency: 30-100 ng/mL (75-250 nmol/L) Toxicity: >100 ng/mL (>250 nmol/L) Performed By: #### L 100.0500, L500.4050 #### [facility] [address] [place], [address] L3700.3000on 10-14-2024 PHENobarbital [Mass/Vol] 5 ug/mL Abnormal 15-40 [facility] Comment on above: Order Comment: 120-1 Result Comment: Dete ction Limit = 3 Performed at: [facility] [id number] Hris Analyst: Daniel Heredia MD, Phone: [phone] Performed at: [facility] [id number] Hris Analyst: Crescencio Metcalf PhD, Phone: [phone] Performed By: #### L 100.0500, L500.4050 #### [facility] [address] [place], [place], [id number] Mysoline (Primidone)on 10-14 PHENOBARB,SERUM 5 ug/mL Low 15-40 [facility] Comment on above: Order Comment: 120-1 Result Comment: Dete ction Limit = 3 Performed By: #### L 100.0500, L500.4050 #### [facility] [address] [place], [address] PRIMIDONE,SERUM 5.4 ug/mL Normal 5.0-12.0 [facility] Comment on above: Order Comment: 120-1 Result Comment: Dete ction Limit = 2.5 <2.5 indicates None Detected Performed By: #### L 100.0500, L500.4050 #### [facility] [address] [place], [address] Anion gap in Serum or Plasma Ordered By: Elisa Maldonado on 10-13-2024 Anion gap [Moles/Vol] 13 mmol/L 5-15 [facility] BUN/creatinine ratioOrdered By: Elisa Maldonado on 10-13-2024 Urea nitrogen/Creatinine [Mass ratio] 19.4 mg/mg 10-20 [facility] Bilirubin, totalOrdered By: Elisa Maldonado on 10-13-2024 Bilirubin [Mass/Vol] 0.23 mg/dL 0.00-1.30 [facility] CBC-Complete Blood Cnt No Di ffon 10-13-2024 Erythrocyte distribution width (RBC) [Ratio] 15.3 % High 11.6-14.6 [facility] Comment on above: Order Comment: 120-1 Performed By: #### L 100.0500, L500.4050 #### [facility] [address] [place], [address] Hematocrit (Bld) [Volume fraction] 34.6 % Low 37-47 [facility] Comment on above: Order Comment: 120-1 Performed By: #### L 100.0500, L500.4050 #### [facility] [address] [place], [address] Hemoglobin (Bld) [Mass/Vol] 10.9 g/dL Low 12.0-15.0 [facility] Comment on above: Order Comment: 120-1 Performed By: #### L 100.0500, L500.4050 #### [facility] [address] [place], [address] MCH (RBC) [Entitic mass] 26.5 pg Low 27.0-32.0 [facility] Comment on above: Order Comment: 120-1 Performed By: #### L 100.0500, L500.4050 #### [facility] [address] [place], [address] MCHC (RBC) [Mass/Vol] 31.5 g/dL Low 32-36 [facility] Comment on above: Order Comment: 120-1 Performed By: #### L 100.0500, L500.4050 #### [facility] [address] [place], [address] MCV (RBC) [Entitic vol] 84.0 fL Normal 81-99 [facility] Comment on above: Order Comment: 120-1 Performed By: #### L 100.0500, L500.4050 #### [facility] [address] [place], [address] Platelet mean volume (Bld) [Entitic vol] 10.3 fL Normal 6.2-12.0 [facility] Comment on above: Order Comment: 120-1 Performed By: #### L 100.0500, L500.4050 #### [facility] [address] [place], [address] Platelets (Bld) [#/Vol] 278 10*3/uL Normal 150-450 [facility] Comment on above: Order Comment: 120-1 Performed By: #### L 100.0500, L500.4050 #### [facility] [address] [place], [address] RBC (Bld) [#/Vol] 4.12 10*6/uL Low 4.2-5.4 [facility] Comment on above: Order Comment: 120-1 Performed By: #### L 100.0500, L500.4050 #### [facility] [address] [place], [address] RDW SD 46.5 fl High 35.1-43.9 [facility] Comment on above: Order Comment: 120-1 Performed By: #### L 100.0500, L500.4050 #### [facility] [address] [place], [address] WBC (Bld) [#/Vol] 10.3 10*3/uL Normal 4.4-11.0 [facility] Comment on above: Order Comment: 120-1 Performed By: #### L 100.0500, L500.4050 #### [facility] [address] [place], [address] Carbon dioxide, total [Moles /volume] in Central venous bloodOrdered By: Elisa Maldonado on 10-13-2024 CO2 [Moles/Vol] 24.3 mmol/L 21.0-32.0 [facility] Chloride assayOrdered By: Lanette Maldonado on 10-13-2024 Chloride [Moles/Vol] 100 mmol/L 98-108 [facility] Comprehensive Metabolic Prof ilon 10-13-2024 Albumin [Mass/Vol] 3.9 g/dL Normal 3.4-4.8 [facility] Comment on above: Order Comment: 120-1 Performed By: #### L 100.0500, L500.4050 #### [facility] [address] [place], [address] Albumin/Globulin [Mass ratio] 1.0 {ratio} Normal 0.9-2.4 [facility] Comment on above: Order Comment: 120-1 Performed By: #### L 100.0500, L500.4050 #### [facility] [address] [place], [address] ALK PHOS 81 U/L Normal 35-104 [facility] Comment on above: Order Comment: 120-1 Performed By: #### L 100.0500, L500.4050 #### [facility] [address] [place], [address] ALT [Catalytic activity/Vol] 28 U/L Normal <=34 [facility] Comment on above: Order Comment: 120-1 Performed By: #### L 100.0500, L500.4050 #### [facility] [address] [place], [address] AST [Catalytic activity/Vol] 58 U/L High <=31 [facility] Comment on above: Order Comment: 120-1 Performed By: #### L 100.0500, L500.4050 #### [facility] [address] [place], [address] Bilirubin [Mass/Vol] 0.23 mg/dL Normal 0.00-1.30 [facility] Comment on above: Order Comment: 120-1 Performed By: #### L 100.0500, L500.4050 #### [facility] [address] [place], [address] BUN/CRE 19.4 RATIO Normal 10-20 [facility] Comment on above: Order Comment: 120-1 Performed By: #### L 100.0500, L500.4050 #### [facility] [address] [place], [address] Calcium [Mass/Vol] 10.8 mg/dL Normal 7.6-11.0 [facility] Comment on above: Order Comment: 120-1 Performed By: #### L 100.0500, L500.4050 #### [facility] [address] [place], [address] Chloride [Moles/Vol] 100 mmol/L Normal 98-108 [facility] Comment on above: Order Comment: 120-1 Performed By: #### L 100.0500, L500.4050 #### [facility] [address] [place], [address] CO2 [Moles/Vol] 24.3 mmol/L Normal 21.0-32.0 [facility] Comment on above: Order Comment: 120-1 Performed By: #### L 100.0500, L500.4050 #### [facility] [address] [place], [address] Creatinine [Mass/Vol] 0.76 mg/dL Normal 0.70-1.20 [facility] Comment on above: Order Comment: 120-1 Performed By: #### L 100.0500, L500.4050 #### [facility] [address] [place], [address] GAP 13 Normal 5-15 [facility] Comment on above: Order Comment: 120-1 Performed By: #### L 100.0500, L500.4050 #### [facility] [address] [place], [address] GFR/1.73 sq M.predicted among non-blacks MDRD (S/P/Bld) [Vol rate/Area] 86 mL/min/{1.73_m2} Normal >60 [facility] Comment on above: Order Comment: 120-1 Result Comment: mL/m in/1.73m2 CKD-EPI Creatinine Equation (2020) Performed By: #### L 100.0500, L500.4050 #### [facility] [address] [place], [address] Globulin (S) [Mass/Vol] 3.9 g/dL Normal 2.2-4.2 [facility] Comment on above: Order Comment: 120-1 Performed By: #### L 100.0500, L500.4050 #### [facility] [address] [place], [address] Glucose [Mass/Vol] 101 mg/dL High 70-99 [facility] Comment on above: Order Comment: 120-1 Performed By: #### L 100.0500, L500.4050 #### [facility] [address] [place], [address] Potassium [Moles/Vol] 4.5 mmol/L Normal 3.3-5.1 [facility] Comment on above: Order Comment: 120-1 Performed By: #### L 100.0500, L500.4050 #### [facility] [address] [place], [address] Sodium [Moles/Vol] 138 mmol/L Normal 133-145 [facility] Comment on above: Order Comment: 120-1 Performed By: #### L 100.0500, L500.4050 #### [facility] [address] [place], [address] T PROT 7.8 g/dL Normal 5.9-8.4 [facility] Comment on above: Order Comment: 120-1 Performed By: #### L 100.0500, L500.4050 #### [facility] [address] [place], [address] Urea nitrogen [Mass/Vol] 15 mg/dL Normal 4-19 [facility] Comment on above: Order Comment: 120-1 Performed By: #### L 100.0500, L500.4050 #### [facility] [address] [place], [place], [id number] Erythrocyte distribution wid th ratioOrdered By: Elisa Maldonado on 10-13-2024 Erythrocyte distribution width (RBC) [Ratio] 15.3 % High 11.6-14.6 [facility] Erythrocyte distribution wid th standard deviationOrdered By: Elisa Maldonado on 10-13-2024 Erythrocyte distribution width (RBC) [Ratio] 46.5 fl High 35.1-43.9 [facility] Glomerular filtration rate ( GFR) estimation/1.73 sq m using serum, plasma, or whole bOrdered By: Elisa Maldonado on 10-13-2024 GFR/1.73 sq M.predicted among non-blacks MDRD (S/P/Bld) [Vol rate/Area] 86 mL/min/{1.73_m2} >60 [facility] Comment on above: mL/min/1.73m2 CKD-EP I Creatinine Equation (2020) Hematocrit Auto (Bld) [Volum e fraction]Ordered By: Elisa Maldonado on 10-13-2024 Hematocrit (Bld) [Volume fraction] 34.6 % Low 37-47 [facility] Hemoglobin A1con 10-13-2024 HbA1c (Bld) [Mass fraction] 6.8 % High <=5.6 [facility] Comment on above: Order Comment: 120- Result Comment: Norm al < 5.7 % Prediabetic 5.7 - 6.4 % Diabetic >or= 6.5 % Please note range changes. Performed By: #### L 100.0500, L500.4050 #### [facility] [address] [place], [place], [id number] Hemoglobin A1c percentageOrd ered By: Elisa Maldonado on 10-13-2024 HbA1c (Bld) [Mass fraction] 6.8 % High <5.7 [facility] Comment on above: Normal < 5.7 % Predi abetic 5.7 - 6.4 % Diabetic >or= 6.5 % Please note range changes. Hemoglobin measurementOrdere d By: Elisa Maldonado on 10-13-2024 Hemoglobin (Bld) [Mass/Vol] 10.9 g/dL Low 12.0-15.0 [facility] - Chemistry and C hemistry - challengeOrdered By: Elisa Maldonado on 10-13-2024 AST [Catalytic activity/Vol] 58 U/L High <32 [facility] MCV (mean corpuscular volume ) determinationOrdered By: Elisa Maldonado on 10-13-2024 MCV (RBC) [Entitic vol] 84.0 fL 81-99 [facility] Mean corpuscular hemoglobin (MCH) determinationOrdered By: Elisa Maldonado on 10-13-2024 MCH (RBC) [Entitic mass] 26.5 pg Low 27.0-32.0 [facility] Mean corpuscular hemoglobin concentration (MCHC) determinationOrdered By: Elisa Maldonado on 10-13-2024 MCHC (RBC) [Mass/Vol] 31.5 g/dL Low 32-36 [facility] Mean platelet volume determi nationOrdered By: Elisa Maldonado on 10-13-2024 Platelet mean volume (Bld) [Entitic vol] 10.3 fL 6.2-12.0 [facility] Platelet countOrdered By: Lanette Maldonado on 10-13-2024 Platelets (Bld) [#/Vol] 278 10*3/uL 150-450 [facility] Potassium measurement (mass/ volume)Ordered By: Elisa Maldonado on 10-13-2024 Potassium (Unsp spec) [Mass/Vol] 4.5 mmol/L 3.3-5.1 [facility] RBC Auto (Bld) [#/Vol]Ordere d By: Elisa Maldonado on 10-13-2024 RBC (Bld) [#/Vol] 4.12 10*6/uL Low 4.2-5.4 [facility] Serum creatinine measurement (mass/volume)Ordered By: Elisa Maldonado on 10-13-2024 Creatinine [Mass/Vol] 0.76 mg/dL 0.70-1.20 [facility] Serum globulin measurementOr dered By: Elisa Maldonado on 10-13-2024 Globulin (S) [Mass/Vol] 3.9 g/dL 2.2-4.2 [facility] Serum glucose measurement (m ass/volume)Ordered By: Elisa Maldonado on 10-13-2024 Glucose [Mass/Vol] 101 mg/dL High 70-99 [facility] Serum or plasma alanine curry otransferase (ALT) measurementOrdered By: Elisa Maldonado on 10-13-2024 ALT [Catalytic activity/Vol] 28 U/L <35 [facility] Serum or plasma albumin emily urement (mass/volume)Ordered By: Elisa Maldonado on 10-13-2024 Albumin [Mass/Vol] 3.9 g/dL 3.4-4.8 [facility] Serum or plasma albumin/glob ulin mass ratioOrdered By: Elisa Maldonado on 10-13-2024 Albumin/Globulin [Mass ratio] 1.0 {ratio} 0.9-2.4 [facility] Serum or plasma alkaline mago sphatase measurementOrdered By: Elisa Maldonado on 10-13-2024 ALP [Catalytic activity/Vol] 81 U/L 35-104 [facility] Serum or plasma calcium emily urement (mass/volume)Ordered By: Elisa Maldnoado on 10-13-2024 Calcium [Mass/Vol] 10.8 mg/dL 7.6-11.0 [facility] Serum or plasma urea nitroge n measurement (mass/volume)Ordered By: Elisa Maldonado on 10-13-2024 Urea nitrogen [Mass/Vol] 15 mg/dL 4-19 [facility] Sodium levelOrdered By: Elisa Maldonado on 10-13-2024 Sodium [Moles/Vol] 138 mmol/L 133-145 [facility] Total proteinOrdered By: Clif Maldonado on 10-13-2024 Protein [Mass/Vol] 7.8 g/dL 5.9-8.4 [facility] White blood cell (WBC) count Ordered By: Elisa Maldonado on 10-13-2024 WBC (Bld) [#/Vol] 10.3 10*3/uL 4.4-11.0 [facility] Serum or plasma primidone me asurement (mass/volume)Ordered By: Elisa Maldonado on 10-09-2024 Primidone [Mass/Vol] 5.4 ug/mL 5.0-12.0 [facility] Comment on above: Detection Limit = 2. 5 <2.5 indicates None Detected [id number] 10-06-2024 [facility] Misc. COMMENT Normal . [facility] Comment on above: Order Comment: 120-1 Result Comment: Test Ordered: [id number] Lacosamide Test(s) 344800-[id number] was developed and its performance characteristics determined by [facility]. It has not been cleared or approved by the Food and Drug Administration. Lacosamide 6.3 ug/mL Reference Range: 5.0-10.0 Limit of Detection 0.5 Mean plasma concentrations following maintenance dose 200 mg/day 4.99 +/- 2.51 ug/mL 400 mg/day 9.35 +/- 4.22 ug/mL 600 mg/day 12.46 +/- 5.60 ug/mL Performed at: [address] [id number] Hris Analyst: Daniel Heredia MD, Phone: [phone] Performed at: [address] [id number] Hris Analyst: Crescencio Metcalf PhD, Phone: [phone] Performed By: #### L 100.0500, L500.4050 #### [facility] [address] [place] [address]. [place], [address] Absolute lymphocyte countOrd ered By: Elisa Maldonado on 10-01-2024 Lymphocytes Auto (Unsp spec) [#/Vol] 3.00 10*3/uL 0.83-4.51 [facility] Absolute neutrophil countOrd ered By: Elisa Maldonado on 10-01-2024 Neutrophils (Bld) [#/Vol] 4.8 10*3/uL 2.0-7.7 [facility] Anion gap in Serum or Plasma Ordered By: Elisa Maldonado on 10-01-2024 Anion gap [Moles/Vol] 12 mmol/L 5- [facility] Automated lymphocyte count a s percentage of total leukocytesOrdered By: Elisa Maldonado on 10-01-2024 Lymphocytes/100 WBC Auto (Unsp spec) 32.3 % [facility] BUN/creatinine ratioOrdered By: Elisa Maldonado on 10-01-2024 Urea nitrogen/Creatinine [Mass ratio] 17.2 mg/mg 10- [facility] Basophil percentageOrdered B y: Elisa Maldonado on 10-01-2024 Basophils/100 WBC (Bld) 0.8 % 0-1 [facility] Bilirubin, totalOrdered By: Elisa Maldonado on 10-01-2024 Bilirubin [Mass/Vol] 0.20 mg/dL 0.00-1.30 [facility] CBC W/Diff, Automatedon 09-13 Absolute Lymph 3.00 X10 3/uL Normal 0.83-4.51 [facility] Comment on above: Order Comment: 120-1 Performed By: #### L 100.0500, L500.4050 #### [facility] [address] [place], [address] Absolute Neut 4.8 X10 3/uL Normal 2.0-7.7 [facility] Comment on above: Order Comment: 120-1 Performed By: #### L 100.0500, L500.4050 #### [facility] [address] [place], [address] Basophils/100 WBC (Bld) 0.8 % Normal 0-1 [facility] Comment on above: Order Comment: 120-1 Performed By: #### L 100.0500, L500.4050 #### [facility] [address] [place], [address] Eosinophils/100 WBC (Bld) 2.8 % Normal 0-5 [facility] Comment on above: Order Comment: 120-1 Performed By: #### L 100.0500, L500.4050 #### [facility] [address] [place], [address] Erythrocyte distribution width (RBC) [Ratio] 15.4 % High 11.6-14.6 [facility] Comment on above: Order Comment: 120-1 Performed By: #### L 100.0500, L500.4050 #### [facility] [address] [place], [address] Hematocrit (Bld) [Volume fraction] 33.1 % Low 37-47 [facility] Comment on above: Order Comment: 120-1 Performed By: #### L 100.0500, L500.4050 #### [facility] [address] [place], [address] Hemoglobin (Bld) [Mass/Vol] 10.7 g/dL Low 12.0-15.0 [facility] Comment on above: Order Comment: 120-1 Performed By: #### L 100.0500, L500.4050 #### [facility] [address] [place], [address] IG% 0.600 Normal 0.0-0.9 [facility] Comment on above: Order Comment: 120-1 Result Comment: IG% - Immature Granulocytes (promyelocytes, myelocytes and metamyelocytes) > 1% indicates that a LEFT SHIFT is Present. Performed By: #### L 100.0500, L500.4050 #### [facility] [address] [place], [address] Lymphocytes/100 WBC (Bld) 32.3 % Normal 19-41 [facility] Comment on above: Order Comment: 120-1 Performed By: #### L 100.0500, L500.4050 #### [facility] [address] [place], [address] MCH (RBC) [Entitic mass] 26.6 pg Low 27.0-32.0 [facility] Comment on above: Order Comment: 120-1 Performed By: #### L 100.0500, L500.4050 #### [facility] [address] [place], [address] MCHC (RBC) [Mass/Vol] 32.3 g/dL Normal 32-36 [facility] Comment on above: Order Comment: 120-1 Performed By: #### L 100.0500, L500.4050 #### [facility] [address] [place], [address] MCV (RBC) [Entitic vol] 82.3 fL Normal 81-99 [facility] Comment on above: Order Comment: 120-1 Performed By: #### L 100.0500, L500.4050 #### [facility] [address] [place], [address] Monocytes/100 WBC (Bld) 12.3 % High 0-10 [facility] Comment on above: Order Comment: 120-1 Performed By: #### L 100.0500, L500.4050 #### [facility] [address] [place], [address] Neutrophils/100 WBC (Bld) 51.2 % Normal 47-70 [facility] Comment on above: Order Comment: 120-1 Performed By: #### L 100.0500, L500.4050 #### [facility] [address] [place], [address] Nucleated RBC (Bld) [#/Vol] 0 10*3/uL Normal 0-5 [facility] Comment on above: Order Comment: 120-1 Performed By: #### L 100.0500, L500.4050 #### [facility] [address] [place], [address] Platelet mean volume (Bld) [Entitic vol] 10.0 fL Normal 6.2-12.0 [facility] Comment on above: Order Comment: 120-1 Performed By: #### L 100.0500, L500.4050 #### [facility] [address] [place], [address] Platelets (Bld) [#/Vol] 295 10*3/uL Normal 150-450 [facility] Comment on above: Order Comment: 120-1 Performed By: #### L 100.0500, L500.4050 #### [facility] [address] [place], [address] RBC (Bld) [#/Vol] 4.02 10*6/uL Low 4.2-5.4 [facility] Comment on above: Order Comment: 120-1 Performed By: #### L 100.0500, L500.4050 #### [facility] [address] [place], [address] RDW SD 45.3 fl High 35.1-43.9 [facility] Comment on above: Order Comment: 120-1 Performed By: #### L 100.0500, L500.4050 #### [facility] [address] [place], [address] WBC (Bld) [#/Vol] 9.3 10*3/uL Normal 4.4-11.0 [facility] Comment on above: Order Comment: 120-1 Performed By: #### L 100.0500, L500.4050 #### [facility] [address] [place], [address] Carbon dioxide, total [Moles /volume] in Central venous bloodOrdered By: Elisa Maldonado on 10-01-2024 CO2 [Moles/Vol] 26.0 mmol/L 21.0-32.0 [facility] Chloride assayOrdered By: Lanette Maldonado on 10-01-2024 Chloride [Moles/Vol] 101 mmol/L 98-108 [facility] Comprehensive Metabolic Prof ilon 10-01-2024 Albumin [Mass/Vol] 4.0 g/dL Normal 3.4-4.8 [facility] Comment on above: Order Comment: 120-1 Performed By: #### L 100.0500, L500.4050 #### [facility] [address] [place], [address] Albumin/Globulin [Mass ratio] 1.1 {ratio} Normal 0.9-2.4 [facility] Comment on above: Order Comment: 120-1 Performed By: #### L 100.0500, L500.4050 #### [facility] [address] [place], [address] ALK PHOS 83 U/L Normal 35-104 [facility] Comment on above: Order Comment: 120-1 Performed By: #### L 100.0500, L500.4050 #### [facility] [address] [place], [address] ALT [Catalytic activity/Vol] 30 U/L Normal <=34 [facility] Comment on above: Order Comment: 120-1 Performed By: #### L 100.0500, L500.4050 #### [facility] [address] [place], [address] AST [Catalytic activity/Vol] 53 U/L High <=31 [facility] Comment on above: Order Comment: 120-1 Performed By: #### L 100.0500, L500.4050 #### [facility] [address] [place], [address] Bilirubin [Mass/Vol] 0.20 mg/dL Normal 0.00-1.30 [facility] Comment on above: Order Comment: 120-1 Performed By: #### L 100.0500, L500.4050 #### [facility] [address] [place], [address] BUN/CRE 17.2 RATIO Normal 10-20 [facility] Comment on above: Order Comment: 120-1 Performed By: #### L 100.0500, L500.4050 #### [facility] [address] [place], [address] Calcium [Mass/Vol] 10.4 mg/dL Normal 7.6-11.0 [facility] Comment on above: Order Comment: 120-1 Performed By: #### L 100.0500, L500.4050 #### [facility] [address] [place], [address] Chloride [Moles/Vol] 101 mmol/L Normal 98-108 [facility] Comment on above: Order Comment: 120-1 Performed By: #### L 100.0500, L500.4050 #### [facility] [address] [place], [address] CO2 [Moles/Vol] 26.0 mmol/L Normal 21.0-32.0 [facility] Comment on above: Order Comment: 120-1 Performed By: #### L 100.0500, L500.4050 #### [facility] [address] [place], [address] Creatinine [Mass/Vol] 0.77 mg/dL Normal 0.70-1.20 [facility] Comment on above: Order Comment: 120-1 Performed By: #### L 100.0500, L500.4050 #### [facility] [address] [place], [address] GAP 12 Normal 5-15 [facility] Comment on above: Order Comment: 120-1 Performed By: #### L 100.0500, L500.4050 #### [facility] [address] [place], [address] GFR/1.73 sq M.predicted among non-blacks MDRD (S/P/Bld) [Vol rate/Area] 84 mL/min/{1.73_m2} Normal >60 [facility] Comment on above: Order Comment: 120-1 Result Comment: mL/m in/1.73m2 CKD-EPI Creatinine Equation (2020) Performed By: #### L 100.0500, L500.4050 #### [facility] [address] [place], [address] Globulin (S) [Mass/Vol] 3.7 g/dL Normal 2.2-4.2 [facility] Comment on above: Order Comment: 120-1 Performed By: #### L 100.0500, L500.4050 #### [facility] [address] [place], [address] Glucose [Mass/Vol] 111 mg/dL High 70-99 [facility] Comment on above: Order Comment: 120-1 Performed By: #### L 100.0500, L500.4050 #### [facility] [address] [place], [address] Potassium [Moles/Vol] 4.5 mmol/L Normal 3.3-5.1 [facility] Comment on above: Order Comment: 120-1 Performed By: #### L 100.0500, L500.4050 #### [facility] [address] [place], [address] Sodium [Moles/Vol] 138 mmol/L Normal 133-145 [facility] Comment on above: Order Comment: 120-1 Performed By: #### L 100.0500, L500.4050 #### [facility] [address] [place], [address] T PROT 7.7 g/dL Normal 5.9-8.4 [facility] Comment on above: Order Comment: 120-1 Performed By: #### L 100.0500, L500.4050 #### [facility] [address] [place], [address] Urea nitrogen [Mass/Vol] 13 mg/dL Normal 4-19 [facility] Comment on above: Order Comment: 120-1 Performed By: #### L 100.0500, L500.4050 #### [facility] [address] [place], [address] Eosinophil percentageOrdered By: Elisa Maldonado on 10-01-2024 Eosinophils/100 WBC (Bld) 2.8 % 0-5 [facility] Erythrocyte distribution wid th ratioOrdered By: Elisa Maldonado on 10-01-2024 Erythrocyte distribution width (RBC) [Ratio] 15.4 % High 11.6-14.6 [facility] Erythrocyte distribution wid th standard deviationOrdered By: Elisa Maldonado on 10-01-2024 Erythrocyte distribution width (RBC) [Ratio] 45.3 fl High 35.1-43.9 [facility] Glomerular filtration rate ( GFR) estimation/1.73 sq m using serum, plasma, or whole bOrdered By: Elisa Maldonado on 10-01-2024 GFR/1.73 sq M.predicted among non-blacks MDRD (S/P/Bld) [Vol rate/Area] 84 mL/min/{1.73_m2} >60 [facility] Comment on above: mL/min/1.73m2 CKD-EP I Creatinine Equation (2020) Hematocrit Auto (Bld) [Volum e fraction]Ordered By: Elisa Maldonado on 10-01-2024 Hematocrit (Bld) [Volume fraction] 33.1 % Low 37-47 [facility] Hemoglobin measurementOrdere d By: Elisa Maldonado on 10-01-2024 Hemoglobin (Bld) [Mass/Vol] 10.7 g/dL Low 12.0-15.0 [facility] Immature granulocytes/100 WB C Auto (Bld)Ordered By: Elisa Maldonado on 10-01-2024 Immature granulocytes/100 WBC (Bld) 0.600 % 0.0-0.9 [facility] Comment on above: IG% - Immature Granu locytes (promyelocytes, myelocytes and metamyelocytes) > 1% indicates that a LEFT SHIFT is Present. Laboratory - Chemistry and C hemistry - challengeOrdered By: Elisa Maldonado on 10-01-2024 AST [Catalytic activity/Vol] 53 U/L High <32 [facility] MCV (mean corpuscular volume ) determinationOrdered By: Elisa Maldonado on 10-01-2024 MCV (RBC) [Entitic vol] 82.3 fL 81-99 [facility] Mean corpuscular hemoglobin (MCH) determinationOrdered By: Elisa Maldonado on 10-01-2024 MCH (RBC) [Entitic mass] 26.6 pg Low 27.0-32.0 [facility] Mean corpuscular hemoglobin concentration (MCHC) determinationOrdered By: Elisa Maldonado on 10-01-2024 MCHC (RBC) [Mass/Vol] 32.3 g/dL 32-36 [facility] Mean platelet volume determi nationOrdered By: Elisa Maldonado on 10-01-2024 Platelet mean volume (Bld) [Entitic vol] 10.0 fL 6.2-12.0 [facility] Monocyte percentageOrdered B y: Elisa Maldonado on 10-01-2024 Monocytes/100 WBC (Bld) 12.3 % High 0-10 [facility] Neutrophil percentageOrdered By: Elisa Maldonado on 10-01-2024 Neutrophils/100 WBC (Bld) 51.2 % 47-70 [facility] Nucleated red blood cell per centageOrdered By: Elisa Maldonado on 10-01-2024 Nucleated RBC/100 WBC (Bld) [Ratio] 0 % 0-5 [facility] Platelet countOrdered By: Lanette Maldonado on 10-01-2024 Platelets (Bld) [#/Vol] 295 10*3/uL 150-450 [facility] Potassium measurement (mass/ volume)Ordered By: Elisa Maldonado on 10-01-2024 Potassium (Unsp spec) [Mass/Vol] 4.5 mmol/L 3.3-5.1 [facility] RBC Auto (Bld) [#/Vol]Ordere d By: Elisa Maldonado on 10-01-2024 RBC (Bld) [#/Vol] 4.02 10*6/uL Low 4.2-5.4 [facility] Serum creatinine measurement (mass/volume)Ordered By: Elisa Maldonado on 10-01-2024 Creatinine [Mass/Vol] 0.77 mg/dL 0.70-1.20 [facility] Serum globulin measurementOr dered By: Elisa Maldonado on 10-01-2024 Globulin (S) [Mass/Vol] 3.7 g/dL 2.2-4.2 [facility] Serum glucose measurement (m ass/volume)Ordered By: Elisa Maldonado on 10-01-2024 Glucose [Mass/Vol] 111 mg/dL High 70-99 [facility] Serum or plasma alanine curry otransferase (ALT) measurementOrdered By: Elisa Maldonado on 10-01-2024 ALT [Catalytic activity/Vol] 30 U/L <35 [facility] Serum or plasma albumin emily urement (mass/volume)Ordered By: Elisa Maldonado on 10-01-2024 Albumin [Mass/Vol] 4.0 g/dL 3.4-4.8 [facility] Serum or plasma albumin/glob ulin mass ratioOrdered By: Elisa Maldonado on 10-01-2024 Albumin/Globulin [Mass ratio] 1.1 {ratio} 0.9-2.4 [facility] Serum or plasma alkaline mago sphatase measurementOrdered By: Elisa Maldonado on 10-01-2024 ALP [Catalytic activity/Vol] 83 U/L 35-104 [facility] Serum or plasma calcium emily urement (mass/volume)Ordered By: Elisa Maldonado on 10-01-2024 Calcium [Mass/Vol] 10.4 mg/dL 7.6-11.0 [facility] Serum or plasma urea nitroge n measurement (mass/volume)Ordered By: Elisa Maldonado on 10-01-2024 Urea nitrogen [Mass/Vol] 13 mg/dL 4-19 [facility] Serum or plasma valproate me asurement (mass/volume)Ordered By: Elisa Maldonado on 10-01-2024 Valproate [Mass/Vol] 77 ug/mL 50-100 [facility] Comment on above: Valproic Acid concen trations >100 ug/mL are potentially toxic. Sodium levelOrdered By: Elisa Maldonado on 10-01-2024 Sodium [Moles/Vol] 138 mmol/L 133-145 [facility] Total proteinOrdered By: Clif Maldonado on 10-01-2024 Protein [Mass/Vol] 7.7 g/dL 5.9-8.4 [facility] Valproic Acid (Depakene) Lev alpa 10-01-2024 VALPROIC ACID 77 ug/mL Normal 50-100 [facility] Comment on above: Order Comment: 120-1 Result Comment: Valp roic Acid concentrations >100 ug/mL are potentially toxic. Performed By: #### L 100.0500, L500.4050 #### [facility] [address] [place], [address] White blood cell (WBC) count Ordered By: Elisa Maldonado on 10-01-2024 WBC (Bld) [#/Vol] 9.3 10*3/uL 4.4-11.0 [facility] Anion gap in Serum or Plasma Ordered By: Elisa Maldonado on 08-18-2024 Anion gap [Moles/Vol] 13 mmol/L 5-15 [facility] Automated blood erythrocyte countOrdered By: Elisa Maldonado on 08-18-2024 RBC (Bld) [#/Vol] 4.09 10*6/uL Low 4.2-5.4 [facility] Comment on above: Order Comment: 120.1 Performed By: #### L 100.0500, L500.4050 #### [facility] [address] [place], [address] Automated blood hematocrit ( percentage)Ordered By: Elisa Maldonado on 08-18-2024 Hematocrit (Bld) [Volume fraction] 33.5 % Low 37-47 [facility] Comment on above: Order Comment: 120.1 Performed By: #### L 100.0500, L500.4050 #### [facility] [address] [place], [address] BUN/creatinine ratioOrdered By: Elisa Maldonado on 08-18-2024 Urea nitrogen/Creatinine [Mass ratio] 20.2 mg/mg High 10-20 [facility] Bilirubin, totalOrdered By: Elisa Maldonado on 08-18-2024 Bilirubin [Mass/Vol] 0.23 mg/dL Normal 0.00-1.30 [facility] Comment on above: Order Comment: 120.1 Performed By: #### L 100.0500, L500.4050 #### [facility] [address] [place], [address] CBC-Complete Blood Cnt No Di ffon 08-18-2024 RDW SD 44.9 fl High 35.1-43.9 [facility] Comment on above: Order Comment: 120.1 Performed By: #### L 100.0500, L500.4050 #### [facility] [address] [place], [address] Carbon dioxide, total [Moles /volume] in Central venous bloodOrdered By: Elisa Maldonado on 08-18-2024 CO2 [Moles/Vol] 24.0 mmol/L Normal 21.0-32.0 [facility] Comment on above: Order Comment: 120.1 Performed By: #### L 100.0500, L500.4050 #### [facility] [address] [place], [address] Chloride assayOrdered By: Lanette Maldonado on 08-18-2024 Chloride [Moles/Vol] 101 mmol/L Normal 98-108 [facility] Comment on above: Order Comment: 120.1 Performed By: #### L 100.0500, L500.4050 #### [facility] [address] [place], [address] Comprehensive Metabolic Prof ilon 08-18-2024 ALK PHOS 81 U/L Normal 35-104 [facility] Comment on above: Order Comment: 120.1 Performed By: #### L 100.0500, L500.4050 #### [facility] [address] [place], [address] BUN/CRE 20.2 RATIO High 10-20 [facility] Comment on above: Order Comment: 120.1 Performed By: #### L 100.0500, L500.4050 #### [facility] [address] [place], [address] GAP 13 Normal 5-15 [facility] Comment on above: Order Comment: 120.1 Performed By: #### L 100.0500, L500.4050 #### [facility] [address] [place], [address] Potassium [Moles/Vol] 4.0 mmol/L Normal 3.3-5.1 [facility] Comment on above: Order Comment: 120.1 Performed By: #### L 100.0500, L500.4050 #### [facility] [address] [place], [address] T PROT 7.7 g/dL Normal 5.9-8.4 [facility] Comment on above: Order Comment: 120.1 Performed By: #### L 100.0500, L500.4050 #### [facility] [address] [place], [address] Comprehensive Metabolic Prof ilOrdered By: Elisa Maldonado on 08-18-2024 AST [Catalytic activity/Vol] 52 U/L High <=31 [facility] Comment on above: Order Comment: 120.1 Performed By: #### L 100.0500, L500.4050 #### [facility] [address] [place], [address] Erythrocyte distribution wid th ratioOrdered By: Elisa Maldonado on 08-18-2024 Erythrocyte distribution width (RBC) [Ratio] 15.3 % High 11.6-14.6 [facility] Comment on above: Order Comment: 120.1 Performed By: #### L 100.0500, L500.4050 #### [facility] [address] [place], [address] Erythrocyte distribution wid th standard deviationOrdered By: Elisa Maldonado on 08-18-2024 Erythrocyte distribution width (RBC) [Ratio] 44.9 fl High 35.1-43.9 [facility] Glomerular filtration rate ( GFR) estimation/1.73 sq m using serum, plasma, or whole bOrdered By: Elisa Maldonado on 08-18-2024 GFR/1.73 sq M.predicted among non-blacks MDRD (S/P/Bld) [Vol rate/Area] 81 mL/min/{1.73_m2} Normal >60 [facility] Comment on above: mL/min/1.73m2 CKD-EP I Creatinine Equation (2020) Order Comment: 120.1 Result Comment: mL/m in/1.73m2 CKD-EPI Creatinine Equation (2020) Performed By: #### L 100.0500, L500.4050 #### [facility] [address] [place], [address] Hemoglobin measurementOrdere d By: Elisa Maldonado on 08-18-2024 Hemoglobin (Bld) [Mass/Vol] 10.8 g/dL Low 12.0-15.0 [facility] Comment on above: Order Comment: 120.1 Performed By: #### L 100.0500, L500.4050 #### [facility] [address] [place], [address] MCV (mean corpuscular volume ) determinationOrdered By: Elisa Maldonado on 08-18-2024 MCV (RBC) [Entitic vol] 81.9 fL Normal 81-99 [facility] Comment on above: Order Comment: 120.1 Performed By: #### L 100.0500, L500.4050 #### [facility] [address] [place], [address] Mean corpuscular hemoglobin (MCH) determinationOrdered By: Elisa Maldonado on 08-18-2024 MCH (RBC) [Entitic mass] 26.4 pg Low 27.0-32.0 [facility] Comment on above: Order Comment: 120.1 Performed By: #### L 100.0500, L500.4050 #### [facility] [address], [address] Mean corpuscular hemoglobin concentration (MCHC) determinationOrdered By: Elisa Maldonado on 08-18-2024 MCHC (RBC) [Mass/Vol] 32.2 g/dL Normal 32-36 [facility] Comment on above: Order Comment: 120.1 Performed By: #### L 100.0500, L500.4050 #### [facility] [address] [place], [address] Mean platelet volume determi nationOrdered By: Elisa Maldonado on 08-18-2024 Platelet mean volume (Bld) [Entitic vol] 10.1 fL Normal 6.2-12.0 [facility] Comment on above: Order Comment: 120.1 Performed By: #### L 100.0500, L500.4050 #### [facility] [address] [place], [address] Platelet countOrdered By: Lanette Maldonado on 08-18-2024 Platelets (Bld) [#/Vol] 295 10*3/uL Normal 150-450 [facility] Comment on above: Order Comment: 120.1 Performed By: #### L 100.0500, L500.4050 #### [facility] [address] [place], [address] Potassium measurement (mass/ volume)Ordered By: Elisa Maldonado on 08-18-2024 Potassium (Unsp spec) [Mass/Vol] 4.0 mmol/L 3.3-5.1 [facility] Serum creatinine measurement (mass/volume)Ordered By: Elisa Maldonado on 08-18-2024 Creatinine [Mass/Vol] 0.80 mg/dL Normal 0.70-1.20 [facility] Comment on above: Order Comment: 120.1 Performed By: #### L 100.0500, L500.4050 #### [facility] [address] [place], [address] Serum globulin measurementOr dered By: Elisa Maldonado on 08-18-2024 Globulin (S) [Mass/Vol] 3.9 g/dL Normal 2.2-4.2 [facility] Comment on above: Order Comment: 120.1 Performed By: #### L 100.0500, L500.4050 #### [facility] [address] [place], [address] Serum glucose measurement (m ass/volume)Ordered By: Elisa Maldonado on 08-18-2024 Glucose [Mass/Vol] 184 mg/dL High 70-99 [facility] Comment on above: Order Comment: 120.1 Performed By: #### L 100.0500, L500.4050 #### [facility] [address] [place], [address] Serum or plasma alanine curry otransferase (ALT) measurementOrdered By: Elisa Maldonado on 08-18-2024 ALT [Catalytic activity/Vol] 26 U/L Normal <=34 [facility] Comment on above: Order Comment: 120.1 Performed By: #### L 100.0500, L500.4050 #### [facility] [address] [place], [address] Serum or plasma albumin emily urement (mass/volume)Ordered By: Elisa Maldonado on 08-18-2024 Albumin [Mass/Vol] 3.7 g/dL Normal 3.4-4.8 [facility] Comment on above: Order Comment: 120.1 Performed By: #### L 100.0500, L500.4050 #### [facility] [address] [place], [address] Serum or plasma albumin/glob ulin mass ratioOrdered By: Elisa Maldonado on 08-18-2024 Albumin/Globulin [Mass ratio] 1.0 {ratio} Normal 0.9-2.4 [facility] Comment on above: Order Comment: 120.1 Performed By: #### L 100.0500, L500.4050 #### [facility] [address] [place], [address] Serum or plasma alkaline mago sphatase measurementOrdered By: Elisa Maldonado on 08-18-2024 ALP [Catalytic activity/Vol] 81 U/L 35-104 [facility] Serum or plasma calcium emily urement (mass/volume)Ordered By: Elisa Maldonado on 08-18-2024 Calcium [Mass/Vol] 10.4 mg/dL Normal 7.6-11.0 [facility] Comment on above: Order Comment: 120.1 Performed By: #### L 100.0500, L500.4050 #### [facility] [address] [place], [address] Serum or plasma urea nitroge n measurement (mass/volume)Ordered By: Elisa Maldonado on 08-18-2024 Urea nitrogen [Mass/Vol] 16 mg/dL Normal 4-19 [facility] Comment on above: Order Comment: 120.1 Performed By: #### L 100.0500, L500.4050 #### [facility] [address] [place], [address] Sodium levelOrdered By: Elisa Maldonado on 08-18-2024 Sodium [Moles/Vol] 138 mmol/L Normal 133-145 [facility] Comment on above: Order Comment: 120.1 Performed By: #### L 100.0500, L500.4050 #### [facility] [address] [place], [address] Total proteinOrdered By: Clif Maldonado on 08-18-2024 Protein [Mass/Vol] 7.7 g/dL 5.9-8.4 [facility] White blood cell (WBC) count Ordered By: Elisa Maldonado on 08-18-2024 WBC (Bld) [#/Vol] 9.2 10*3/uL Normal 4.4-11.0 [facility] Comment on above: Order Comment: 120.1 Performed By: #### L 100.0500, L500.4050 #### [facility] [address] [place], [address] Absolute lymphocyte countOrd ered By: Elisa Maldonado on 07-20-2024 Lymphocytes Auto (Unsp spec) [#/Vol] 3.36 10*3/uL 0.83-4.51 [facility] Absolute neutrophil countOrd ered By: Elisa Maldonado on 07-20-2024 Neutrophils (Bld) [#/Vol] 5.5 10*3/uL 2.0-7.7 [facility] Anion gap in Serum or Plasma Ordered By: Elisa Maldonado on 07-20-2024 Anion gap [Moles/Vol] 13 mmol/L 5-15 [facility] Automated lymphocyte count a s percentage of total leukocytesOrdered By: Elisa Maldonado on 07-20-2024 Lymphocytes/100 WBC Auto (Unsp spec) 33.3 % 19-41 [facility] BUN/creatinine ratioOrdered By: Elisa Maldonado on 07-20-2024 Urea nitrogen/Creatinine [Mass ratio] 26.1 mg/mg High 10-20 [facility] Basophil percentageOrdered B y: Elisa Maldonado on 07-20-2024 Basophils/100 WBC (Bld) 0.8 % 0-1 [facility] CBC W/Diff, Automatedon Absolute Lymph 3.36 X10 3/uL Normal 0.83-4.51 [facility] Comment on above: Order Comment: 120.1 Performed By: #### L 100.0500, L500.4050 #### [facility] [address] [place], [address] Absolute Neut 5.5 X10 3/uL Normal 2.0-7.7 [facility] Comment on above: Order Comment: 120.1 Performed By: #### L 100.0500, L500.4050 #### [facility] [address] [place], [address] Basophils/100 WBC (Bld) 0.8 % Normal 0-1 [facility] Comment on above: Order Comment: 120.1 Performed By: #### L 100.0500, L500.4050 #### [facility] [address] [place], [address] Eosinophils/100 WBC (Bld) 2.8 % Normal 0-5 [facility] Comment on above: Order Comment: 120.1 Performed By: #### L 100.0500, L500.4050 #### [facility] [address] [place], [address] Erythrocyte distribution width (RBC) [Ratio] 15.2 % High 11.6-14.6 [facility] Comment on above: Order Comment: 120.1 Performed By: #### L 100.0500, L500.4050 #### [facility] [address] [place], [address] Hematocrit (Bld) [Volume fraction] 38.4 % Normal 37-47 [facility] Comment on above: Order Comment: 120.1 Performed By: #### L 100.0500, L500.4050 #### [facility] [address] [place], [address] Hemoglobin (Bld) [Mass/Vol] 12.3 g/dL Normal 12.0-15.0 [facility] Comment on above: Order Comment: 120.1 Performed By: #### L 100.0500, L500.4050 #### [facility] [address] [place], [address] IG% 0.500 Normal 0.0-0.9 [facility] Comment on above: Order Comment: 120.1 Result Comment: IG% - Immature Granulocytes (promyelocytes, myelocytes and metamyelocytes) > 1% indicates that a LEFT SHIFT is Present. Performed By: #### L 100.0500, L500.4050 #### [facility] [address] [place], [address] Lymphocytes/100 WBC (Bld) 33.3 % Normal 19-41 [facility] Comment on above: Order Comment: 120.1 Performed By: #### L 100.0500, L500.4050 #### [facility] [address] [place], [address] MCH (RBC) [Entitic mass] 26.6 pg Low 27.0-32.0 [facility] Comment on above: Order Comment: 120.1 Performed By: #### L 100.0500, L500.4050 #### [facility] [address] [place], [address] MCHC (RBC) [Mass/Vol] 32.0 g/dL Normal 32-36 [facility] Comment on above: Order Comment: 120.1 Performed By: #### L 100.0500, L500.4050 #### [facility] [address] [place], [address] MCV (RBC) [Entitic vol] 83.1 fL Normal 81-99 [facility] Comment on above: Order Comment: 120.1 Performed By: #### L 100.0500, L500.4050 #### [facility] [address] [place], [address] Monocytes/100 WBC (Bld) 7.9 % Normal 0-10 [facility] Comment on above: Order Comment: 120.1 Performed By: #### L 100.0500, L500.4050 #### [facility] [address] [place], [address] Neutrophils/100 WBC (Bld) 54.7 % Normal 47-70 [facility] Comment on above: Order Comment: 120.1 Performed By: #### L 100.0500, L500.4050 #### [facility] [address] [place], [address] Nucleated RBC (Bld) [#/Vol] 0 10*3/uL Normal 0-5 [facility] Comment on above: Order Comment: 120.1 Performed By: #### L 100.0500, L500.4050 #### [facility] [address] [place], [address] Platelet mean volume (Bld) [Entitic vol] 10.1 fL Normal 6.2-12.0 [facility] Comment on above: Order Comment: 120.1 Performed By: #### L 100.0500, L500.4050 #### [facility] [address] [place], [address] Platelets (Bld) [#/Vol] 319 10*3/uL Normal 150-450 [facility] Comment on above: Order Comment: 120.1 Performed By: #### L 100.0500, L500.4050 #### [facility] [address] [place], [address] RBC (Bld) [#/Vol] 4.62 10*6/uL Normal 4.2-5.4 [facility] Comment on above: Order Comment: 120.1 Performed By: #### L 100.0500, L500.4050 #### [facility] [address] [place], [address] RDW SD 45.8 fl High 35.1-43.9 [facility] Comment on above: Order Comment: 120.1 Performed By: #### L 100.0500, L500.4050 #### [facility] [address] [place], [address] WBC (Bld) [#/Vol] 10.1 10*3/uL Normal 4.4-11.0 [facility] Comment on above: Order Comment: 120.1 Performed By: #### L 100.0500, L500.4050 #### [facility] [address] [place], [address] Calculated total iron bindin g capacityOrdered By: Elisa Maldonado on 07-20-2024 Total Iron Binding Capacity 427 ug/dL 250-450 [facility] Carbon dioxide, total [Moles /volume] in Central venous bloodOrdered By: Elisa Maldonado on 07-20-2024 CO2 [Moles/Vol] 24.2 mmol/L 21.0-32.0 [facility] Chloride assayOrdered By: Lanette Maldonado on 07-20-2024 Chloride [Moles/Vol] 102 mmol/L 98-108 [facility] Creatinine Unsp time (U) [Ma ss/Vol]Ordered By: Elisa Maldonado on 07-20-2024 Creatinine (U) [Mass/Vol] 89.80 mg/dL 28.00-217.00 [facility] Eosinophil percentageOrdered By: Elisa Maldonado on 07-20-2024 Eosinophils/100 WBC (Bld) 2.8 % 0-5 [facility] Erythrocyte distribution wid th (RBC) [Ratio]Ordered By: Elisa Maldonado on 07-20-2024 Erythrocyte distribution width (RBC) [Entitic vol] 45.8 fL High 35.1-43.9 [facility] Erythrocyte distribution wid th ratioOrdered By: Elisa Maldonado on 07-20-2024 Erythrocyte distribution width (RBC) [Ratio] 15.2 % High 11.6-14.6 [facility] Erythrocyte distribution wid th standard deviationOrdered By: Elisa Maldonado on 07-20-2024 Erythrocyte distribution width (RBC) [Ratio] 45.8 fl High 35.1-43.9 [facility] Ferritinon 07-20-2024 Ferritin [Mass/Vol] 55 ng/mL Normal 22-378 [facility] Comment on above: Order Comment: 120.1 Performed By: #### L 100.0500, L500.4050 #### [facility] [address] [place], [address] GFR/1.73 sq M.predicted kojo g non-blacks MDRD (S/P/Bld) [Vol rate/Area]Ordered By: Elisa Maldonado on 07-20-2024 Estimated GFR (MDRD) Non-Af Amer 76 >60 [facility] Comment on above: mL/min/1.73m2 CKD-EP I Creatinine Equation (2020) Glomerular filtration rate ( GFR) estimation/1.73 sq m using serum, plasma, or whole bOrdered By: Elisa Maldonado on 07-20-2024 GFR/1.73 sq M.predicted among non-blacks MDRD (S/P/Bld) [Vol rate/Area] 76 mL/min/{1.73_m2} >60 [facility] Comment on above: mL/min/1.73m2 CKD-EP I Creatinine Equation (2020) Hematocrit Auto (Bld) [Volum e fraction]Ordered By: Elisa Maldonado on 07-20-2024 Hematocrit (Bld) [Volume fraction] 38.4 % 37-47 [facility] Hemoglobin measurementOrdere d By: Elisa Maldonado on 07-20-2024 Hemoglobin (Bld) [Mass/Vol] 12.3 g/dL 12.0-15.0 [facility] Immature granulocytes/100 WB C Auto (Bld)Ordered By: Elisa Maldonado on 07-20-2024 Immature granulocytes/100 WBC (Bld) 0.500 % 0.0-0.9 [facility] Comment on above: IG% - Immature Granu locytes (promyelocytes, myelocytes and metamyelocytes) > 1% indicates that a LEFT SHIFT is Present. Iron (Unsp spec) [Mass/Mass] Ordered By: Elisa Maldonado on 07-20-2024 Iron [Mass/Vol] 52 ug/dL 50-170 [facility] Iron measurement (mass/mass) Ordered By: Elisa Maldonado on 07-20-2024 Iron (Unsp spec) [Mass/Mass] 52 ug/dL 50-170 [facility] Iron saturation [Mass fracti on]Ordered By: Elisa Maldonado on 07-20-2024 Iron Saturation 12.2 % Low 13-59 [facility] Comment on above: Previous reported re sult: 12.0 %Edited by: YONATAN on 07/20/24:1019 AMENDED REPORT 07/20/24 1019 IRON SATURATION previously reported as: 12.0 L % Iron+Iron Binding Capacityon 07-20-2024 Iron [Mass/Vol] 52 ug/dL Normal 50-170 [facility] Comment on above: Order Comment: 120.1 Performed By: #### L 100.0500, L500.4050 #### [facility] [address] [place], [address] UIBC 375 ug/dL Normal 228-428 [facility] Comment on above: Order Comment: 120.1 Performed By: #### L 100.0500, L500.4050 #### [facility] [address] [place], [address] Lymphocytes Auto (Unsp spec) [#/Vol]Ordered By: Elisa Maldonado on 07-20-2024 Lymphocytes (Bld) [#/Vol] 3.36 10*3/uL 0.83-4.51 [facility] Lymphocytes/100 WBC Auto (Un sp spec)Ordered By: Elisa Maldonado on 07-20-2024 Lymphocytes/100 WBC (Bld) 33.3 % 19-41 [facility] MCV (mean corpuscular volume ) determinationOrdered By: Elisa Maldonado on 07-20-2024 MCV (RBC) [Entitic vol] 83.1 fL 81-99 [facility] Mean corpuscular hemoglobin (MCH) determinationOrdered By: Elisa Maldonado on 07-20-2024 MCH (RBC) [Entitic mass] 26.6 pg Low 27.0-32.0 [facility] Mean corpuscular hemoglobin concentration (MCHC) determinationOrdered By: Elisa Maldonado on 07-20-2024 MCHC (RBC) [Mass/Vol] 32.0 g/dL 32-36 [facility] Mean platelet volume determi nationOrdered By: Elisa Maldonado on 07-20-2024 Platelet mean volume (Bld) [Entitic vol] 10.1 fL 6.2-12.0 [facility] Monocyte percentageOrdered B y: Elisa Maldonado on 07-20-2024 Monocytes/100 WBC (Bld) 7.9 % 0-10 [facility] Neutrophil percentageOrdered By: Elisa Maldonado on 07-20-2024 Neutrophils/100 WBC (Bld) 54.7 % 47-70 [facility] No Panel InformationOrdered By: Elisa Maldonado on 07-20-2024 Unsaturated Iron Binding Capacity 375 ug/dL 228-428 [facility] Nucleated red blood cell per centageOrdered By: Elisa Maldonado on 07-20-2024 Nucleated RBC/100 WBC (Bld) [Ratio] 0 % 0-5 [facility] PTH intactOrdered By: Elisa braga on 07-20-2024 Parathyroid Hormone (Intact) 67 pg/mL High [facility] PTHINon 07-20-2024 PTH 67 pg/mL High [facility] Comment on above: Performed By: #### L 100.0500, L500.4050 #### [facility] [address] [place] [address], [address] Platelet countOrdered By: Lanette Maldonado on 07-20-2024 Platelets (Bld) [#/Vol] 319 10*3/uL 150-450 [facility] Potassium (Unsp spec) [Mass/ Vol]Ordered By: Elisa Maldonado on 07-20-2024 Potassium [Moles/Vol] 4.4 mmol/L 3.3-5.1 [facility] Potassium measurement (mass/ volume)Ordered By: Elisa Maldonado on 07-20-2024 Potassium (Unsp spec) [Mass/Vol] 4.4 mmol/L 3.3-5.1 [facility] Protein+Creatinine Ratio,Uri neon 07-20-2024 PROT:CRE RATIO 160 mg/g CRE Normal 0-200 [facility] Comment on above: Performed By: #### L 100.0500, L500.4050 #### [facility] [address] [place], [address] Protein (U) [Mass/Vol] 14.4 mg/dL High 0.0-12.0 [facility] Comment on above: Performed By: #### L 100.0500, L500.4050 #### [facility] [address] [place], [address] UR CREAT 89.80 mg/dL Normal 28.00-217.00 [facility] Comment on above: Performed By: #### L 100.0500, L500.4050 #### [facility] [address] [place], [address] Protein/Creatinine (U) [Mass ratio]Ordered By: Elisa Maldonado on 07-20-2024 Urine Protein/Creatinine Ratio 160 mg/g CRE 0-200 [facility] RBC Auto (Bld) [#/Vol]Ordere d By: Elisa Maldonado on 07-20-2024 RBC (Bld) [#/Vol] 4.62 10*6/uL 4.2-5.4 [facility] Random urine creatinine emily urement (mass/volume)Ordered By: Elisa Maldonado on 07-20-2024 Creatinine Unsp time (U) [Mass/Vol] 89.80 mg/dL 28.00-217.00 [facility] Renal Profileon 07-20-2024 Phosphate [Mass/Vol] 3.1 mg/dL Normal 2.7-4.5 [facility] Comment on above: Order Comment: 120.1 Performed By: #### L 100.0500, L500.4050 #### [facility] [address] [place], [address] Serum creatinine measurement (mass/volume)Ordered By: Elisa Maldonado on 07-20-2024 Creatinine [Mass/Vol] 0.84 mg/dL 0.70-1.20 [facility] Serum glucose measurement (m ass/volume)Ordered By: Elisa Maldonado on 07-20-2024 Glucose [Mass/Vol] 117 mg/dL High 70-99 [facility] Serum or plasma albumin emily urement (mass/volume)Ordered By: Elisa Maldonado on 07-20-2024 Albumin [Mass/Vol] 4.0 g/dL 3.4-4.8 [facility] Serum or plasma calcium emily urement (mass/volume)Ordered By: Elisa Maldonado on 07-20-2024 Calcium [Mass/Vol] 10.8 mg/dL 7.6-11.0 [facility] Serum or plasma ferritin alberto surement (mass/volume)Ordered By: Elisa Maldonado on 07-20-2024 Ferritin [Mass/Vol] 55 ng/mL 22-378 [facility] Serum or plasma iron saturat ion measurement (mass fraction)Ordered By: Elisa Maldonado on 07-20-2024 Iron saturation [Mass fraction] 12.2 % Low 13-59 [facility] Comment on above: Previous reported re sult: 12.0 %Edited by: YONATAN on 07/20/24:1019 AMENDED REPORT 07/20/24 1019 IRON SATURATION previously reported as: 12.0 L % Serum or plasma urea nitroge n measurement (mass/volume)Ordered By: Elisa Maldonado on 07-20-2024 Urea nitrogen [Mass/Vol] 22 mg/dL High 4-19 [facility] Serum or plasma uric acid me asurement (mass/volume)Ordered By: Elisa Maldonado on 07-20-2024 Urate [Mass/Vol] 7.5 mg/dL High 2.6-6.0 [facility] Comment on above: The drugs N-Acetylcy steine and Metamizole may falsely depress this assay. Serum phosphorus measurement Ordered By: Elisa Maldonado on 07-20-2024 Phosphorus Level 3.1 mg/dL 2.7-4.5 [facility] Sodium levelOrdered By: Elisa Maldonado on 07-20-2024 Sodium [Moles/Vol] 138 mmol/L 133-145 [facility] Uric Acidon 07-20-2024 URIC 7.5 mg/dL High 2.6-6.0 [facility] Comment on above: Order Comment: 120-1 Result Comment: The drugs N-Acetylcysteine and Metamizole may falsely depress this assay. Performed By: #### L 100.0500, L500.4050 #### [facility] [address] [place], [place], [id number] Urine protein measurement (m ass/volume)Ordered By: Elisa Maldonado on 07-20-2024 Protein (U) [Mass/Vol] 14.4 mg/dL High 0.0-12.0 [facility] Urine protein/creatinine mas s ratioOrdered By: Elisa Maldonado on 07-20-2024 Protein/Creatinine (U) [Mass ratio] 160 mg/g CRE 0-200 [facility] White blood cell (WBC) count Ordered By: Elisa Maldonado on 07-20-2024 WBC (Bld) [#/Vol] 10.1 10*3/uL 4.4-11.0 [facility] Anion gap in Serum or Plasma Ordered By: Elisa Maldonado on 06-22-2024 Anion gap [Moles/Vol] 13 mmol/L 5-15 [facility] BUN/creatinine ratioOrdered By: Elisa Maldonado on 06-22-2024 Urea nitrogen/Creatinine [Mass ratio] 39.3 mg/mg High 10-20 [facility] Bilirubin, totalOrdered By: Elisa Maldonado on 06-22-2024 Bilirubin [Mass/Vol] mg/dL 0.00-1.30 [facility] CBC-Complete Blood Cnt No Di ffon 06-22-2024 Erythrocyte distribution width (RBC) [Ratio] 14.8 % High 11.6-14.6 [facility] Comment on above: Order Comment: 120-1 Performed By: #### L 100.0500, L500.4050 #### [facility] [address] [place], [place], [id number] Hematocrit (Bld) [Volume fraction] 31.4 % Low 37-47 [facility] Comment on above: Order Comment: 120-1 Performed By: #### L 100.0500, L500.4050 #### [facility] [address] [place], [address] Hemoglobin (Bld) [Mass/Vol] 10.2 g/dL Low 12.0-15.0 [facility] Comment on above: Order Comment: 120-1 Performed By: #### L 100.0500, L500.4050 #### [facility] [address] [place], [address] MCH (RBC) [Entitic mass] 25.8 pg Low 27.0-32.0 [facility] Comment on above: Order Comment: 120-1 Performed By: #### L 100.0500, L500.4050 #### [facility] [address] [place], [address] MCHC (RBC) [Mass/Vol] 32.5 g/dL Normal 32-36 [facility] Comment on above: Order Comment: 120-1 Performed By: #### L 100.0500, L500.4050 #### [facility] [address] [place], [address] MCV (RBC) [Entitic vol] 79.3 fL Low 81-99 [facility] Comment on above: Order Comment: 120-1 Performed By: #### L 100.0500, L500.4050 #### [facility] [address] [place], [address] Platelet mean volume (Bld) [Entitic vol] 10.4 fL Normal 6.2-12.0 [facility] Comment on above: Order Comment: 120-1 Performed By: #### L 100.0500, L500.4050 #### [facility] [address] [place], [address] Platelets (Bld) [#/Vol] 248 10*3/uL Normal 150-450 [facility] Comment on above: Order Comment: 120-1 Performed By: #### L 100.0500, L500.4050 #### [facility] [address] [place], [address] RBC (Bld) [#/Vol] 3.96 10*6/uL Low 4.2-5.4 [facility] Comment on above: Order Comment: 120-1 Performed By: #### L 100.0500, L500.4050 #### [facility] [address] [place], [address] RDW SD 42.9 fl Normal 35.1-43.9 [facility] Comment on above: Order Comment: 120-1 Performed By: #### L 100.0500, L500.4050 #### [facility] [address] [place], [address] WBC (Bld) [#/Vol] 8.9 10*3/uL Normal 4.4-11.0 [facility] Comment on above: Order Comment: 120-1 Performed By: #### L 100.0500, L500.4050 #### [facility] [address] [place], [address] Carbon dioxide, total [Moles /volume] in Central venous bloodOrdered By: Elisa Maldonado on 06-22-2024 CO2 [Moles/Vol] 22.0 mmol/L 21.0-32.0 [facility] Chloride assayOrdered By: Lanette Maldonado on 06-22-2024 Chloride [Moles/Vol] 102 mmol/L 98-108 [facility] Comprehensive Metabolic Prof ilon 06-22-2024 Albumin [Mass/Vol] 3.2 g/dL Low 3.4-4.8 [facility] Comment on above: Order Comment: 120-1 Performed By: #### L 100.0500, L500.4050 #### [facility] [address] [place], [address] Albumin/Globulin [Mass ratio] 0.9 {ratio} Normal 0.9-2.4 [facility] Comment on above: Order Comment: 120-1 Performed By: #### L 100.0500, L500.4050 #### [facility] [address] [place], [address] ALK PHOS 67 U/L Normal 35-104 [facility] Comment on above: Order Comment: 120-1 Performed By: #### L 100.0500, L500.4050 #### [facility] [address] [place], [address] ALT [Catalytic activity/Vol] 19 U/L Normal <=34 [facility] Comment on above: Order Comment: 120-1 Performed By: #### L 100.0500, L500.4050 #### [facility] [address] [place], [address] AST [Catalytic activity/Vol] 43 U/L High <=31 [facility] Comment on above: Order Comment: 120-1 Performed By: #### L 100.0500, L500.4050 #### [facility] [address] [place], [address] BUN/CRE 39.3 RATIO High 10-20 [facility] Comment on above: Order Comment: 120-1 Performed By: #### L 100.0500, L500.4050 #### [facility] [address] [place], [address] Calcium [Mass/Vol] 9.7 mg/dL Normal 7.6-11.0 [facility] Comment on above: Order Comment: 120-1 Performed By: #### L 100.0500, L500.4050 #### [facility] [address] [place], [address] Chloride [Moles/Vol] 102 mmol/L Normal 98-108 [facility] Comment on above: Order Comment: 120-1 Performed By: #### L 100.0500, L500.4050 #### [facility] [address] [place], [address] CO2 [Moles/Vol] 22.0 mmol/L Normal 21.0-32.0 [facility] Comment on above: Order Comment: 120-1 Performed By: #### L 100.0500, L500.4050 #### [facility] [address] [place], [address] Creatinine [Mass/Vol] 0.72 mg/dL Normal 0.70-1.20 [facility] Comment on above: Order Comment: 120-1 Performed By: #### L 100.0500, L500.4050 #### [facility] [address] [place], [address] GAP 13 Normal 5-15 [facility] Comment on above: Order Comment: 120-1 Performed By: #### L 100.0500, L500.4050 #### [facility] [address] [place], [address] GFR/1.73 sq M.predicted among non-blacks MDRD (S/P/Bld) [Vol rate/Area] 91 mL/min/{1.73_m2} Normal >60 [facility] Comment on above: Order Comment: 120-1 Result Comment: mL/m in/1.73m2 CKD-EPI Creatinine Equation (2020) Performed By: #### L 100.0500, L500.4050 #### [facility] [address] [place], [address] Globulin (S) [Mass/Vol] 3.6 g/dL Normal 2.2-4.2 [facility] Comment on above: Order Comment: 120-1 Performed By: #### L 100.0500, L500.4050 #### [facility] [address] [place], [address] Glucose [Mass/Vol] 104 mg/dL High 70-99 [facility] Comment on above: Order Comment: 120-1 Performed By: #### L 100.0500, L500.4050 #### [facility] [address] [place], [address] Potassium [Moles/Vol] 3.7 mmol/L Normal 3.3-5.1 [facility] Comment on above: Order Comment: 120-1 Performed By: #### L 100.0500, L500.4050 #### [facility] [address] [place], [address] Sodium [Moles/Vol] 137 mmol/L Normal 133-145 [facility] Comment on above: Order Comment: 120-1 Performed By: #### L 100.0500, L500.4050 #### [facility] [address] [place], [address] T BILI < 0.15 Normal 0.00-1.30 [facility] Comment on above: Order Comment: 120-1 Performed By: #### L 100.0500, L500.4050 #### [facility] [address] [place], [address] T PROT 6.8 g/dL Normal 5.9-8.4 [facility] Comment on above: Order Comment: 120-1 Performed By: #### L 100.0500, L500.4050 #### [facility] [address] [place], [address] Urea nitrogen [Mass/Vol] 28 mg/dL High 4-19 [facility] Comment on above: Order Comment: 120-1 Performed By: #### L 100.0500, L500.4050 #### [facility] [address] [place], [address] Erythrocyte distribution wid th (RBC) [Ratio]Ordered By: Elisa Maldonado on 06-22-2024 Erythrocyte distribution width (RBC) [Entitic vol] 42.9 fL 35.1-43.9 [facility] Erythrocyte distribution wid th ratioOrdered By: Elisa Maldonado on 06-22-2024 Erythrocyte distribution width (RBC) [Ratio] 14.8 % High 11.6-14.6 [facility] Erythrocyte distribution wid th standard deviationOrdered By: Elisa Maldonado on 06-22-2024 Erythrocyte distribution width (RBC) [Ratio] 42.9 fl 35.1-43.9 [facility] GFR/1.73 sq M.predicted kojo g non-blacks MDRD (S/P/Bld) [Vol rate/Area]Ordered By: Elisa Maldonado on 06-22-2024 Estimated GFR (MDRD) Non-Af Amer 91 >60 [facility] Comment on above: mL/min/1.73m2 CKD-EP I Creatinine Equation (2020) Glomerular filtration rate ( GFR) estimation/1.73 sq m using serum, plasma, or whole bOrdered By: Elisa Maldonado on 06-22-2024 GFR/1.73 sq M.predicted among non-blacks MDRD (S/P/Bld) [Vol rate/Area] 91 mL/min/{1.73_m2} >60 [facility] Comment on above: mL/min/1.73m2 CKD-EP I Creatinine Equation (2020) Hematocrit Auto (Bld) [Volum e fraction]Ordered By: Elisa Maldonado on 06-22-2024 Hematocrit (Bld) [Volume fraction] 31.4 % Low 37-47 [facility] Hemoglobin measurementOrdere d By: Elisa Maldonado on 06-22-2024 Hemoglobin (Bld) [Mass/Vol] 10.2 g/dL Low 12.0-15.0 [facility] - Chemistry and C hemistry - challengeOrdered By: Elisa Maldonado on 06-22-2024 AST [Catalytic activity/Vol] 43 U/L High <32 [facility] MCV (mean corpuscular volume ) determinationOrdered By: Elisa Maldonado on 06-22-2024 MCV (RBC) [Entitic vol] 79.3 fL Low 81-99 [facility] Mean corpuscular hemoglobin (MCH) determinationOrdered By: Elisa Maldonado on 06-22-2024 MCH (RBC) [Entitic mass] 25.8 pg Low 27.0-32.0 [facility] Mean corpuscular hemoglobin concentration (MCHC) determinationOrdered By: Elisa Maldonado on 06-22-2024 MCHC (RBC) [Mass/Vol] 32.5 g/dL 32-36 [facility] Mean platelet volume determi nationOrdered By: Elisa Maldonado on 06-22-2024 Platelet mean volume (Bld) [Entitic vol] 10.4 fL 6.2-12.0 [facility] Platelet countOrdered By: Lanette Maldonado on 06-22-2024 Platelets (Bld) [#/Vol] 248 10*3/uL 150-450 [facility] Potassium (Unsp spec) [Mass/ Vol]Ordered By: Elisa Maldonado on 06-22-2024 Potassium [Moles/Vol] 3.7 mmol/L 3.3-5.1 [facility] Potassium measurement (mass/ volume)Ordered By: Elisa Maldonado on 06-22-2024 Potassium (Unsp spec) [Mass/Vol] 3.7 mmol/L 3.3-5.1 [facility] RBC Auto (Bld) [#/Vol]Ordere d By: Elisa Maldonado on 06-22-2024 RBC (Bld) [#/Vol] 3.96 10*6/uL Low 4.2-5.4 [facility] Serum creatinine measurement (mass/volume)Ordered By: Elisa Maldonado on 06-22-2024 Creatinine [Mass/Vol] 0.72 mg/dL 0.70-1.20 [facility] Serum globulin measurementOr dered By: Elisa Maldonado on 06-22-2024 Globulin (S) [Mass/Vol] 3.6 g/dL 2.2-4.2 [facility] Serum glucose measurement (m ass/volume)Ordered By: Elisa Maldonado on 06-22-2024 Glucose [Mass/Vol] 104 mg/dL High 70-99 [facility] Serum or plasma alanine curry otransferase (ALT) measurementOrdered By: Elisa Maldonado on 06-22-2024 ALT [Catalytic activity/Vol] 19 U/L <35 [facility] Serum or plasma albumin emily urement (mass/volume)Ordered By: Elisa Maldonado on 06-22-2024 Albumin [Mass/Vol] 3.2 g/dL Low 3.4-4.8 [facility] Serum or plasma albumin/glob ulin mass ratioOrdered By: Elisa Maldonado on 06-22-2024 Albumin/Globulin [Mass ratio] 0.9 {ratio} 0.9-2.4 [facility] Serum or plasma alkaline mago sphatase measurementOrdered By: Elisa Maldonado on 06-22-2024 ALP [Catalytic activity/Vol] 67 U/L 35-104 [facility] Serum or plasma calcium emily urement (mass/volume)Ordered By: Elisa Maldonado on 06-22-2024 Calcium [Mass/Vol] 9.7 mg/dL 7.6-11.0 [facility] Serum or plasma urea nitroge n measurement (mass/volume)Ordered By: Elisa Maldonado on 06-22-2024 Urea nitrogen [Mass/Vol] 28 mg/dL High 4-19 [facility] Sodium levelOrdered By: Elisa Maldonado on 06-22-2024 Sodium [Moles/Vol] 137 mmol/L 133-145 [facility] Total proteinOrdered By: Clif Maldonado on 06-22-2024 Protein [Mass/Vol] 6.8 g/dL 5.9-8.4 [facility] White blood cell (WBC) count Ordered By: Elisa Maldonado on 06-22-2024 WBC (Bld) [#/Vol] 8.9 10*3/uL 4.4-11.0 [facility] 18-HN-Jrtruzc DOrdered By: Shelia Maldonado on 05-21-2024 Vitamin D 25-Hydroxy 37.1 ng/mL [facility] Comment on above: Vitamin D 25(OH) Sta tus Range Deficiency <20 ng/mL (50nmol/L) Insufficiency 20 - 30 ng/mL (50 - 75 nmol/L) Sufficiency 30 - 100 ng/mL (75 - 250 nmol/L) Toxicity >100 ng/mL (>250 nmol/L) High density lipoprotein (HD L) measurementOrdered By: Elisa Maldonado on 05-21-2024 Cholesterol in HDL [Mass/Vol] 41 mg/dL >40 [facility] Comment on above: The drugs N-Acetylcy steine and Metamizole may falsely depress this assay. Reference Range HDL <40 mg/dL Low HDL Cholesterol HDL >or= 60 mg/dL High HDL Cholesterol Lipid Profileon 05-21-2024 Cholesterol [Mass/Vol] 96 mg/dL Normal 200 [facility] Comment on above: Order Comment: 120.1 Result Comment: <200 mg/dL Desirable 200-240 mg/dL Borderline >240 mg/dL High Risk Performed By: #### L 501.8100, L500.4100, L506.1000 #### [facility] [address] [place], [address] Cholesterol in HDL [Mass/Vol] 41 mg/dL Normal [facility] Comment on above: Order Comment: 120.1 Result Comment: The drugs N-Acetylcysteine and Metamizole may falsely depress this assay. Reference Range HDL <40 mg/dL Low HDL Cholesterol HDL >or= 60 mg/dL High HDL Cholesterol Performed By: #### L 501.8100, L500.4100, L506.1000 #### [facility] [address] [place], [address] Cholesterol in LDL [Mass/Vol] 12 mg/dL Normal 0-130 [facility] Comment on above: Order Comment: 120.1 Performed By: #### L 501.8100, L500.4100, L506.1000 #### [facility] [address] [place], [address] Cholesterol in VLDL [Mass/Vol] 43 mg/dL High 5-40 [facility] Comment on above: Order Comment: 120.1 Performed By: #### L 501.8100, L500.4100, L506.1000 #### [facility] [address] [place], [address] Triglyceride [Mass/Vol] 216 mg/dL High [facility] Comment on above: Order Comment: 120.1 Result Comment: The drugs N-Acetylcysteine and Metamizole may falsely depress this assay. Serum Triglycerides Reference Interval Normal <150 mg/dL Borderline high 150 - 199 mg/dL High 200 - 499 mg/dL Very High > or = 500 mg/dL Performed By: #### L 501.8100, L500.4100, L506.1000 #### [facility] [address] [place], [address] Low density lipoprotein (LDL ) cholesterol measurementOrdered By: Elisa Maldonado on 05-21-2024 Cholesterol in LDL [Mass/Vol] 12 mg/dL 0-130 [facility] Serum or plasma cholesterol measurement (mass/volume)Ordered By: Elisa Maldonado on 05-21-2024 Cholesterol [Mass/Vol] 96 mg/dL <200 [facility] Comment on above: <200 mg/dL Desirable 200-240 mg/dL Borderline >240 mg/dL High Risk Triglycerides measurementOrd ered By: Elisa Maldonado on 05-21-2024 Triglyceride [Mass/Vol] 216 mg/dL High <199 [facility] Comment on above: The drugs N-Acetylcy steine and Metamizole may falsely depress this assay.Serum Triglycerides Reference Interval Normal <150 mg/dL Borderline high 150 - 199 mg/dL High 200 - 499 mg/dL Very High > or = 500 mg/dL Valproate levelOrdered By: Shelia Maldonado on 05-21-2024 Valproic Acid (Depakene) Level 68 ug/mL 50-100 [facility] Valproic Acid (Depakene) Lev alpa 05-21-2024 VALPROIC ACID 68 ug/mL Normal 50-100 [facility] Comment on above: Order Comment: 120.1 Performed By: #### L 501.8100, L500.4100, L506.1000 #### [facility] [address] [place], [address] Very low density lipoprotein (VLDL) cholesterol measurementOrdered By: Elisa Maldonado on 05-21-2024 Very low density lipoprotein (VLDL) cholesterol measurement 43 mg/dL High 5-40 [facility] VLDL Cholesterol 43 mg/dL High 5-40 [facility] Vitamin D,25 Hydroxyon 05-21 Vitamin D 25-OH 37.1 ng/mL Normal [facility] Comment on above: Order Comment: 120.1 Result Comment: Debo min D 25(OH) Status Range Deficiency <20 ng/mL (50nmol/L) Insufficiency 20 - 30 ng/mL (50 - 75 nmol/L) Sufficiency 30 - 100 ng/mL (75 - 250 nmol/L) Toxicity >100 ng/mL (>250 nmol/L) Performed By: #### L 501.8100, L500.4100, L506.1000 #### [facility] [address] [place], [address] Albumin to globulin ratioOrd ered By: Elisa Maldonado on 04-20-2024 Albumin/Globulin [Mass ratio] 0.6 {ratio} Low 0.9-2.4 [facility] Bilirubin, totalOrdered By: Elisa Maldonado on 04-20-2024 Bilirubin [Mass/Vol] 0.30 mg/dL 0.20-1.00 [facility] Comment on above: For patients on eltr ombopag therapy, use of Dimension [place] TBIL is not recommended. Blood urea nitrogen (BUN)/cr eatinine ratioOrdered By: Elisa Maldonado on 04-20-2024 Urea nitrogen/Creatinine [Mass ratio] 30.5 mg/mg High 10-20 [facility] CBC-Complete Blood Cnt No Di ffon 04-20-2024 Erythrocyte distribution width (RBC) [Ratio] 14.4 % Normal 11.6-14.6 [facility] Comment on above: Order Comment: 120.1 Performed By: #### L 100.0500, L500.4050 #### [facility] [address] [place], [address] Hematocrit (Bld) [Volume fraction] 33.1 % Low 37-47 [facility] Comment on above: Order Comment: 120.1 Performed By: #### L 100.0500, L500.4050 #### [facility] [address], [address] Hemoglobin (Bld) [Mass/Vol] 10.6 g/dL Low 12.0-15.0 [facility] Comment on above: Order Comment: 120.1 Performed By: #### L 100.0500, L500.4050 #### [facility] [address], [address] MCH (RBC) [Entitic mass] 26.0 pg Low 27.0-32.0 [facility] Comment on above: Order Comment: 120.1 Performed By: #### L 100.0500, L500.4050 #### [facility] [address] [place], [address] MCHC (RBC) [Mass/Vol] 32.0 g/dL Normal 32-36 [facility] Comment on above: Order Comment: 120.1 Performed By: #### L 100.0500, L500.4050 #### [facility] [address] [place], [address] MCV (RBC) [Entitic vol] 81.1 fL Normal 81-99 [facility] Comment on above: Order Comment: 120.1 Performed By: #### L 100.0500, L500.4050 #### [facility] [address] [place], [address] Platelet mean volume (Bld) [Entitic vol] 10.3 fL Normal 6.2-12.0 [facility] Comment on above: Order Comment: 120.1 Performed By: #### L 100.0500, L500.4050 #### [facility] [address] [place], [address] Platelets (Bld) [#/Vol] 308 10*3/uL Normal 150-450 [facility] Comment on above: Order Comment: 120.1 Performed By: #### L 100.0500, L500.4050 #### [facility] [address] [place], [address] RBC (Bld) [#/Vol] 4.08 10*6/uL Low 4.2-5.4 [facility] Comment on above: Order Comment: 120.1 Performed By: #### L 100.0500, L500.4050 #### [facility] [address] [place], [address] RDW SD 42.3 fl Normal 35.1-43.9 [facility] Comment on above: Order Comment: 120.1 Performed By: #### L 100.0500, L500.4050 #### [facility] [address] [place], [address] WBC (Bld) [#/Vol] 11.4 10*3/uL High 4.4-11.0 [facility] Comment on above: Order Comment: 120.1 Performed By: #### L 100.0500, L500.4050 #### [facility] [address] [place], [address] Carbon dioxide measurementOr dered By: Elisa Maldonado on 04-20-2024 CO2 [Moles/Vol] 28.0 mmol/L 21.0-32.0 [facility] Chloride measurementOrdered By: Elisa Maldonado on 04-20-2024 Chloride [Moles/Vol] 107 mmol/L 98-107 [facility] Comprehensive Metabolic Prof ilon 04-20-2024 Albumin [Mass/Vol] 2.8 g/dL Low 3.2-5.0 [facility] Comment on above: Order Comment: 120.1 Performed By: #### L 100.0500, L500.4050 #### [facility] [address] [place], [address] Albumin/Globulin [Mass ratio] 0.6 {ratio} Low 0.9-2.4 [facility] Comment on above: Order Comment: 120.1 Performed By: #### L 100.0500, L500.4050 #### [facility] [address] [place], [address] ALK P 64 U/L Normal 45-117 [facility] Comment on above: Order Comment: 120.1 Performed By: #### L 100.0500, L500.4050 #### [facility] [address] [place], [address] ALT [Catalytic activity/Vol] 17 U/L Normal 13-56 [facility] Comment on above: Order Comment: 120.1 Performed By: #### L 100.0500, L500.4050 #### [facility] [address] [place], [address] AST [Catalytic activity/Vol] 22 U/L Normal 15-37 [facility] Comment on above: Order Comment: 120.1 Performed By: #### L 100.0500, L500.4050 #### [facility] [address] [place], [address] Bilirubin [Mass/Vol] 0.30 mg/dL Normal 0.20-1.00 [facility] Comment on above: Order Comment: 120.1 Result Comment: For patients on eltrombopag therapy, use of Dimension [place] TBIL is not recommended. Performed By: #### L 100.0500, L500.4050 #### [facility] [address] [place], [address] BUN/CRE 30.5 RATIO High 10-20 [facility] Comment on above: Order Comment: 120.1 Performed By: #### L 100.0500, L500.4050 #### [facility] [address] [place], [address] CA,Total 9.6 mg/dL Normal 8.5-10.1 [facility] Comment on above: Order Comment: 120.1 Performed By: #### L 100.0500, L500.4050 #### [facility] [address] [place], [address] Chloride [Moles/Vol] 107 mmol/L Normal 98-107 [facility] Comment on above: Order Comment: 120.1 Performed By: #### L 100.0500, L500.4050 #### [facility] [address] [place], [address] CO2 [Moles/Vol] 28.0 mmol/L Normal 21.0-32.0 [facility] Comment on above: Order Comment: 120.1 Performed By: #### L 100.0500, L500.4050 #### [facility] [address] [place], [address] Creatinine [Mass/Vol] 0.75 mg/dL Normal 0.55-1.02 [facility] Comment on above: Order Comment: 120.1 Result Comment: The validity of the calculated GFR GFRAA in patients over 70 years has not been determined. Clinical correlation is essential. Performed By: #### L 100.0500, L500.4050 #### [facility] [address] [place], [address] EST GFR - AA 98 mL/min Normal >60 [facility] Comment on above: Order Comment: 120.1 Result Comment: Afri can [place] GFR Calc Performed By: #### L 100.0500, L500.4050 #### [facility] [address] [place], [address] GAP 4 Low 5-15 [facility] Comment on above: Order Comment: 120.1 Performed By: #### L 100.0500, L500.4050 #### [facility] [address] [place], [address] GFR/1.73 sq M.predicted among non-blacks MDRD (S/P/Bld) [Vol rate/Area] 81 mL/min/{1.73_m2} Normal >60 [facility] Comment on above: Order Comment: 120.1 Result Comment: Non- GFR Calc Performed By: #### L 100.0500, L500.4050 #### [facility] [address] [place], [address] Globulin (S) [Mass/Vol] 4.4 g/dL High 2.2-4.2 [facility] Comment on above: Order Comment: 120.1 Performed By: #### L 100.0500, L500.4050 #### [facility] [address] [place], [address] Glucose [Mass/Vol] 101 mg/dL Normal 74-106 [facility] Comment on above: Order Comment: 120.1 Result Comment: Fast ing Glucose result from 100 to 125 mg/dL suggests IMPAIRED HOMEOSTASIS per A.D.A. criteria. Performed By: #### L 100.0500, L500.4050 #### [facility] [address] [place], [address] Potassium [Moles/Vol] 4.5 mmol/L Normal 3.5-5.1 [facility] Comment on above: Order Comment: 120.1 Performed By: #### L 100.0500, L500.4050 #### [facility] [address] [place], [address] Sodium [Moles/Vol] 139 mmol/L Normal 136-145 [facility] Comment on above: Order Comment: 120.1 Performed By: #### L 100.0500, L500.4050 #### [facility] [address] [place], [address] T PROT 7.2 g/dL Normal 6.4-8.2 [facility] Comment on above: Order Comment: 120.1 Performed By: #### L 100.0500, L500.4050 #### [facility] [address] [place], [address] Urea nitrogen [Mass/Vol] 23 mg/dL High 7-18 [facility] Comment on above: Order Comment: 120.1 Performed By: #### L 100.0500, L500.4050 #### [facility] [address] [place], [address] Erythrocyte distribution wid th (RBC) [Ratio]Ordered By: Elisa Maldonado on 04-20-2024 Erythrocyte distribution width (RBC) [Entitic vol] 42.3 fL 35.1-43.9 [facility] Erythrocyte distribution wid th ratioOrdered By: Elisa Maldonado on 04-20-2024 Erythrocyte distribution width (RBC) [Ratio] 14.4 % 11.6-14.6 [facility] Estimated glomerular filtrat ion rate (GFR) AmericanOrdered By: Elisa Maldonado on 04-20-2024 Estimated GFR (MDRD) Amer 98 mL/min >60 [facility] Comment on above: GFR Calc Glomerular filtration rate ( GFR) estimationOrdered By: Elisa Maldonado on 04-20-2024 Estimated GFR (MDRD) Non-Af Amer 81 mL/min >60 [facility] Comment on above: Non- GFR Calc Glucose measurementOrdered B y: Elisa Maldonado on 04-20-2024 Glucose [Mass/Vol] 101 mg/dL 74-106 [facility] Comment on above: Fasting Glucose resu lt from 100 to 125 mg/dL suggests IMPAIRED HOMEOSTASIS per A.D.A. criteria. Hematocrit Auto (Bld) [Volum e fraction]Ordered By: Elisa Maldonado on 04-20-2024 Hematocrit (Bld) [Volume fraction] 33.1 % Low 37-47 [facility] Hemoglobin measurementOrdere d By: Elisa Maldonado on 04-20-2024 Hemoglobin (Bld) [Mass/Vol] 10.6 g/dL Low 12.0-15.0 [facility] - Chemistry and C hemistry - challengeOrdered By: Elisa Maldonado on 04-20-2024 AST [Catalytic activity/Vol] 22 U/L 15-37 [facility] MCV (mean corpuscular volume ) determinationOrdered By: Elisa Maldonado on 04-20-2024 MCV (RBC) [Entitic vol] 81.1 fL 81-99 [facility] Mean corpuscular hemoglobin (MCH) determinationOrdered By: Elisa Maldonado on 04-20-2024 MCH (RBC) [Entitic mass] 26.0 pg Low 27.0-32.0 [facility] Mean corpuscular hemoglobin concentration (MCHC) determinationOrdered By: Elisa Maldonado on 04-20-2024 MCHC (RBC) [Mass/Vol] 32.0 g/dL 32-36 [facility] Mean platelet volume determi nationOrdered By: Elisa Maldonado on 04-20-2024 Platelet mean volume (Bld) [Entitic vol] 10.3 fL 6.2-12.0 [facility] Platelet countOrdered By: Lanette Maldonado on 04-20-2024 Platelets (Bld) [#/Vol] 308 10*3/uL 150-450 [facility] Potassium measurementOrdered By: Elisa Maldonado on 04-20-2024 Potassium [Moles/Vol] 4.5 mmol/L 3.5-5.1 [facility] RBC Auto (Bld) [#/Vol]Ordere d By: Elisa Maldonado on 04-20-2024 RBC (Bld) [#/Vol] 4.08 10*6/uL Low 4.2-5.4 [facility] Serum anion gap measurementO rdered By: Elisa Maldonado on 04-20-2024 Anion gap [Moles/Vol] 4 mmol/L Low 5-15 [facility] Serum globulin measurementOr dered By: Elisa Maldonado on 04-20-2024 Globulin (S) [Mass/Vol] 4.4 g/dL High 2.2-4.2 [facility] Serum or plasma alanine curry otransferase (ALT) measurementOrdered By: Elisa Maldonado on 04-20-2024 ALT [Catalytic activity/Vol] 17 U/L 13-56 [facility] Serum or plasma albumin emily urement (mass/volume)Ordered By: Elisa Maldonado on 04-20-2024 Albumin [Mass/Vol] 2.8 g/dL Low 3.2-5.0 [facility] Serum or plasma alkaline mago sphatase measurementOrdered By: Elisa Maldonado on 04-20-2024 ALP [Catalytic activity/Vol] 64 U/L 45-117 [facility] Serum or plasma calcium emily urement (mass/volume)Ordered By: Elisa Maldonado on 04-20-2024 Calcium [Mass/Vol] 9.6 mg/dL 8.5-10.1 [facility] Serum or plasma creatinine m easurement (mass/volume)Ordered By: Elisa Maldonado on 04-20-2024 Creatinine [Mass/Vol] 0.75 mg/dL 0.55-1.02 [facility] Comment on above: The validity of the calculated GFR & GFRAA in patients over 70 years has not been determined. Clinical correlation is essential. Serum or plasma urea nitroge n measurement (mass/volume)Ordered By: Elisa Maldonado on 04-20-2024 Urea nitrogen [Mass/Vol] 23 mg/dL High 7-18 [facility] Sodium levelOrdered By: Elisa Maldonado on 04-20-2024 Sodium [Moles/Vol] 139 mmol/L 136-145 [facility] Total proteinOrdered By: Clif Maldonado on 04-20-2024 Protein [Mass/Vol] 7.2 g/dL 6.4-8.2 [facility] White blood cell (WBC) count Ordered By: Elisa Maldonado on 04-20-2024 WBC (Bld) [#/Vol] 11.4 10*3/uL High 4.4-11.0 [facility] Ammoniaon 03-05-2024 Ammonia (P) [Moles/Vol] 36.0 umol/L High [facility] Comment on above: Order Comment: 120.1 Performed By: #### L 501.8100, L500.4050, [id number] #### [facility] [address] [place], [address] Comprehensive Metabolic Prof ilon 03-05-2024 Albumin [Mass/Vol] 3.0 g/dL Low 3.2-5.0 [facility] Comment on above: Order Comment: 120.1 Performed By: #### L 501.8100, L500.4050, [id number] #### [facility] [address] [place], [address] Albumin/Globulin [Mass ratio] 0.6 {ratio} Low 0.9-2.4 [facility] Comment on above: Order Comment: 120.1 Performed By: #### L 501.8100, L500.4050, [id number] #### [facility] [address] [place], [address] ALK P 73 U/L Normal 45-117 [facility] Comment on above: Order Comment: 120.1 Performed By: #### L 501.8100, L500.4050, [id number] #### [facility] [address] [place], [address] ALT [Catalytic activity/Vol] 21 U/L Normal 13-56 [facility] Comment on above: Order Comment: 120.1 Performed By: #### L 501.8100, L500.4050, [id number] #### [facility] [address] [place], [address] AST [Catalytic activity/Vol] 34 U/L Normal 15-37 [facility] Comment on above: Order Comment: 120.1 Performed By: #### L 501.8100, L500.4050, [id number] #### [facility] [address] [place], [address] Bilirubin [Mass/Vol] 0.20 mg/dL Normal 0.20-1.00 [facility] Comment on above: Order Comment: 120.1 Result Comment: For patients on eltrombopag therapy, use of Dimension [place] TBIL is not recommended. Performed By: #### L 501.8100, L500.4050, [id number] #### [facility] [address] [place], [address] BUN/CRE 26.5 RATIO High 10-20 [facility] Comment on above: Order Comment: 120.1 Performed By: #### L 501.8100, [id number], [id number] #### [facility] [address] [place], [address] CA,Total 9.6 mg/dL Normal 8.5-10.1 [facility] Comment on above: Order Comment: 120.1 Performed By: #### L 501.8100, L500.4050, [id number] #### [facility] [address] [place], [address] Chloride [Moles/Vol] 109 mmol/L High 98-107 [facility] Comment on above: Order Comment: 120.1 Performed By: #### L 501.8100, L500.4050, [id number] #### [facility] [address] [place], [address] CO2 [Moles/Vol] 26.0 mmol/L Normal 21.0-32.0 [facility] Comment on above: Order Comment: 120.1 Performed By: #### L 501.8100, L500.4050, [id number] #### [facility] [address] [place], [address] Creatinine [Mass/Vol] 0.79 mg/dL Normal 0.55-1.02 [facility] Comment on above: Order Comment: 120.1 Result Comment: The validity of the calculated GFR GFRAA in patients over 70 years has not been determined. Clinical correlation is essential. Performed By: #### L 501.8100, L500.4050, [id number] #### [facility] [address] [place], [address] EST GFR - AA 93 mL/min Normal >60 [facility] Comment on above: Order Comment: 120.1 Result Comment: Afri can [place] GFR Calc Performed By: #### L 501.8100, L500.4050, [id number] #### [facility] [address] [place], [address] GAP 6 Normal 5-15 [facility] Comment on above: Order Comment: 120.1 Performed By: #### L 501.8100, L500.4050, [id number] #### [facility] [address] [place], [address] GFR/1.73 sq M.predicted among non-blacks MDRD (S/P/Bld) [Vol rate/Area] 77 mL/min/{1.73_m2} Normal >60 [facility] Comment on above: Order Comment: 120.1 Result Comment: Non- GFR Calc Performed By: #### L 501.8100, L500.4050, [id number] #### [facility] [address] [place], [address] Globulin (S) [Mass/Vol] 4.7 g/dL High 2.2-4.2 [facility] Comment on above: Order Comment: 120.1 Performed By: #### L 501.8100, L500.4050, [id number] #### [facility] [address] [place], [address] Glucose [Mass/Vol] 94 mg/dL Normal 74-106 [facility] Comment on above: Order Comment: 120.1 Performed By: #### L 501.8100, L500.4050, [id number] #### [facility] [address] [place], [address] Potassium [Moles/Vol] 4.1 mmol/L Normal 3.5-5.1 [facility] Comment on above: Order Comment: 120.1 Performed By: #### L 501.8100, L500.4050, [id number] #### [facility] [address] [place], [address] Sodium [Moles/Vol] 140 mmol/L Normal 136-145 [facility] Comment on above: Order Comment: 120.1 Performed By: #### L 501.8100, L500.4050, [id number] #### [facility] [address] [place], [address] T PROT 7.7 g/dL Normal 6.4-8.2 [facility] Comment on above: Order Comment: 120.1 Performed By: #### L 501.8100, L500.4050, [id number] #### [facility] [address] [place], [place], [address] Urea nitrogen [Mass/Vol] 21 mg/dL High 7-18 [facility] Comment on above: Order Comment: 120.1 Performed By: #### L 501.8100, L500.4050, [id number] #### [facility] [address] [place], [address] Valproic Acid (Depakene) Lev alpa 03-05-2024 VALPROIC ACID 89 ug/mL Normal 50-100 [facility] Comment on above: Order Comment: 120.1 Performed By: #### L 501.8100, L500.4050, [id number] #### [facility] [address] [place], [place], [address] .Auto Diffon 08-11-2023 Basophil, Absolute 0.0 10 3/mcL Normal 0.0-0.3 [facility] [place] [facility] ([place] Comment on above: Performed By: #### A UNRULY, VALPR, CBC, ADIFF, BMP, GFR, AMM #### [address] [address] Basophils/100 WBC (Bld) 0.4 % Normal 0.0-2.5 A [facility] ([place] Comment on above: Performed By: #### A UNRULY, VALPR, CBC, ADIFF, BMP, GFR, AMM #### [address] [address] Eosinophil, Absolute 0.1 10 3/mcL Normal 0.0-0.7 [facility] ([place] Comment on above: Performed By: #### A UNRULY, VALPR, CBC, ADIFF, BMP, GFR, AMM #### [address] [address] Eosinophils/100 WBC (Bld) 0.7 % Normal 0.0-6.0 [facility] ([place] Comment on above: Performed By: #### A UNRULY, VALPR, CBC, ADIFF, BMP, GFR, AMM #### [address] [address] Lymphocyte, Absolute 3.1 10 3/mcL Normal 0.9-4.3 [facility] ([place] Comment on above: Performed By: #### A UNRULY, VALPR, CBC, ADIFF, BMP, GFR, AMM #### [address] [address] Lymphocytes/100 WBC (Bld) 40.1 % High 20.0-40.0 [facility] ([place] Comment on above: Performed By: #### A UNRULY, VALPR, CBC, ADIFF, BMP, GFR, AMM #### [address] [address] Monocyte, Absolute 0.8 10 3/mcL Normal 0.1-1.4 [facility] [place] [facility] ([place] Comment on above: Performed By: #### A UNRULY, VALPR, CBC, ADIFF, BMP, GFR, AMM #### [address] [address] Monocytes/100 WBC (Bld) 10.4 % Normal 2.0-13.0 [facility] ([place] Comment on above: Performed By: #### A UNRULY, VALPR, CBC, ADIFF, BMP, GFR, AMM #### [address] [address] Neutrophils/100 WBC (Bld) 48.4 % Low 50.0-75.0 [facility] ([place] Comment on above: Performed By: #### A UNRULY, VALPR, CBC, ADIFF, BMP, GFR, AMM #### [address] [address] .GFRon 08-11-2023 GFR >60 Normal [facility] [place] [facility] ([place] Comment on above: Result Comment: GFR Population [...] VALPR, CBC, ADIFF, BMP, GFR, AMM #### [address] [address] GFR Non- >60 Normal [facility] ([place] Comment on above: Result Comment: GFR Population [...] VALPR, CBC, ADIFF, BMP, GFR, AMM #### [address] [address] .NEUABSon 08-11-2023 Neutrophil, Absolute 3.7 10 3/mcL Normal 2.3-8.1 [facility] ([place] Comment on above: Performed By: #### A UNRULY, VALPR, CBC, ADIFF, BMP, GFR, AMM #### [address] [address] BMPon 08-11-2023 BUN/Creatinine Ratio 38.7 ratio High 10.0-22.0 [facility] [place] [facility] ([place] Comment on above: Performed By: #### A UNRULY, VALPR, CBC, ADIFF, BMP, GFR, AMM #### [address] [address] Calcium [Mass/Vol] 8.4 mg/dL Low 8.7-10.4 [facility] ([place] Comment on above: Performed By: #### A UNRULY, VALPR, CBC, ADIFF, BMP, GFR, AMM #### [address] [address] Chloride [Moles/Vol] 111 mmol/L High 98-110 [facility] [place] [facility] ([place] Comment on above: Performed By: #### A UNRULY, VALPR, CBC, ADIFF, BMP, GFR, AMM #### [address] [address] CO2 [Moles/Vol] 24 mmol/L Normal 22-32 [facility] ([place] Comment on above: Performed By: #### A UNRULY, VALPR, CBC, ADIFF, BMP, GFR, AMM #### [address] [address] Creatinine [Mass/Vol] 0.75 mg/dL Normal 0.50-1.20 [facility] ([place] Comment on above: Performed By: #### A UNRULY, VALPR, CBC, ADIFF, BMP, GFR, AMM #### [address] [address] Electrolyte Balance 7.0 mEq/L Normal 4.0-15.0 [facility] ([place] Comment on above: Performed By: #### A UNRULY, VALPR, CBC, ADIFF, BMP, GFR, AMM #### [address] [address] Glucose [Mass/Vol] 72 mg/dL Low 82-115 [facility] ([place] Comment on above: Performed By: #### A UNRULY, VALPR, CBC, ADIFF, BMP, GFR, AMM #### [address] [address] Potassium [Moles/Vol] 4.8 mmol/L Normal 3.5-5.0 [facility] ([place] Comment on above: Performed By: #### A UNRULY, VALPR, CBC, ADIFF, BMP, GFR, AMM #### [address] [address] Sodium [Moles/Vol] 142 mmol/L Normal 136-145 [facility] ([place] Comment on above: Performed By: #### A UNRULY, VALPR, CBC, ADIFF, BMP, GFR, AMM #### [place] [address] Urea nitrogen [Mass/Vol] 29.0 mg/dL High 8.0-22.0 [facility] ([place] Comment on above: Performed By: #### A UNRULY, VALPR, CBC, ADIFF, BMP, GFR, AMM #### [place] [id number] CBCon 08-11-2023 Erythrocyte distribution width (RBC) [Ratio] 15.1 % Normal 11.5-15.5 [facility] ([place] Comment on above: Performed By: #### A UNRULY, VALPR, CBC, ADIFF, BMP, GFR, AMM #### [place] [address] Hematocrit (Bld) [Volume fraction] 33.5 % Low 34.0-46.0 [facility] ([place] Comment on above: Performed By: #### A UNRULY, VALPR, CBC, ADIFF, BMP, GFR, AMM #### [place] [id number] Hgb 11.4 G/dL Low 12.0-16.0 [facility] ([place] Comment on above: Performed By: #### A UNRULY, VALPR, CBC, ADIFF, BMP, GFR, AMM #### [place] [id number] MCH (RBC) [Entitic mass] 29.0 pg Normal 27.0-33.0 [facility] ([place] Comment on above: Performed By: #### A UNRULY, VALPR, CBC, ADIFF, BMP, GFR, AMM #### [place] [id number] MCHC 34.0 G/dL Normal 32.0-36.0 [facility] ([place] Comment on above: Performed By: #### A UNRULY, VALPR, CBC, ADIFF, BMP, GFR, AMM #### [address] [address] MCV (RBC) [Entitic vol] 85.4 fL Normal 80.0-99.0 A [facility] ([place] Comment on above: Performed By: #### A UNRULY, VALPR, CBC, ADIFF, BMP, GFR, AMM #### [place] [address] Platelet 293 10 3/mcL Normal 150-450 [facility] ([place] Comment on above: Performed By: #### A UNRULY, VALPR, CBC, ADIFF, BMP, GFR, AMM #### [place] [address] Platelet mean volume (Bld) [Entitic vol] 7.4 fL Normal 6.6-10.5 [facility] ([place] Comment on above: Performed By: #### A UNRULY, VALPR, CBC, ADIFF, BMP, GFR, AMM #### [place] [address] RBC 3.92 10 6/mcL Low 4.10-5.30 [facility] ([place] Comment on above: Performed By: #### A UNRULY, VALPR, CBC, ADIFF, BMP, GFR, AMM #### [place] [address] WBC 7.7 10 3/mcL Normal 4.5-10.8 [facility] ([place] Comment on above: Performed By: #### A UNRULY, VALPR, CBC, ADIFF, BMP, GFR, AMM #### [place] [address] LABORATORYOrdered By: SYSTEM SYSTEM on 08-11-2023 Basophils [...] 0.7 % Normal 0.0 - 6.0 % Workflow SS Erythrocyte distribution width (RBC) [Ratio] 15.1 % Normal 11.5 - 15.5 % Workflow SS GFR/1.73 sq M.predicted among blacks MDRD (S/P/Bld) [Vol rate/Area] ml/min/1.73sqm Invalid Interpretation Code PLUQ Chemistry S Comment on above: Interpretive Data: [...] (S/P/Bld) [Vol rate/Area] ml/min/1.73sqm Invalid Interpretation Code PLUQ Chemistry S Comment on above: Interpretive Data: [...] 72 mg/dL Low 82 - 115 mg/dL AH ADM SS Hematocrit (Bld) [Volume fraction] 33.5 [...] 0.0 10 3/mcL Normal 0.0-0.3 [facility] [place] [facility] ([place] Comment on above: Performed By: #### A UNRULY, ADIFF, GFR, BMP, CBC ####[address] [address] Basophils/100 WBC (Bld) 0.1 % Normal 0.0-2.5 A [facility] ([place] Comment on above: Performed By: #### A UNRULY, ADIFF, GFR, BMP, CBC ####[address] [address] Eosinophil, Absolute 0.0 10 3/mcL Normal 0.0-0.7 [facility] ([place] Comment on above: Performed By: #### A UNRULY, ADIFF, GFR, BMP, CBC ####[address] [address] Eosinophils/100 WBC (Bld) 0.1 % Normal 0.0-6.0 [facility] ([place] Comment on above: Performed By: #### A UNRULY, ADIFF, GFR, BMP, CBC ####[address] [address] Lymphocyte, Absolute 2.6 10 3/mcL Normal 0.9-4.3 [facility] ([place] Comment on above: Performed By: #### A UNRULY, ADIFF, GFR, BMP, CBC ####[address] [address] Lymphocytes/100 WBC (Bld) 37.5 % Normal 20.0-40.0 [facility] ([place] Comment on above: Performed By: #### A UNRULY, ADIFF, GFR, BMP, CBC ####[address] [address] Monocyte, Absolute 0.7 10 3/mcL Normal 0.1-1.4 [facility] [place] [facility] ([place] Comment on above: Performed By: #### A UNRULY, ADIFF, GFR, BMP, CBC ####[address] [address] Monocytes/100 WBC (Bld) 9.4 % Normal 2.0-13.0 A [facility] ([place] Comment on above: Performed By: #### A UNRULY, ADIFF, GFR, BMP, CBC ####[address] [address] Neutrophils/100 WBC (Bld) 52.9 % Normal 50.0-75.0 [facility] ([place] Comment on above: Performed By: #### A UNRULY, ADIFF, GFR, BMP, CBC ####[address] [address] .GFRon 08-10-2023 GFR >60 Normal [facility] ([place] Comment on above: Result Comment: GFR Population [...] #### A UNRULY, ADIFF, GFR, BMP, CBC ####[address] [address] GFR Non- >60 Normal [facility] ([place] Comment on above: Result Comment: GFR Population [...] #### A UNRULY, ADIFF, GFR, BMP, CBC ####[address] [address] .NEUABSon 08-10-2023 Neutrophil, Absolute 3.7 10 3/mcL Normal 2.3-8.1 [facility] ([place] Comment on above: Performed By: #### A UNRULY, ADIFF, GFR, BMP, CBC ####[place] [address] BMPon 08-10-2023 BUN/Creatinine Ratio 38.8 ratio High 10.0-22.0 [facility] ([place] Comment on above: Performed By: #### A UNRULY, ADIFF, GFR, BMP, CBC ####[place] [address] Calcium [Mass/Vol] 8.6 mg/dL Low 8.7-10.4 [facility] ([place] Comment on above: Performed By: #### A UNRULY, ADIFF, GFR, BMP, CBC ####[address] [address] Chloride [Moles/Vol] 112 mmol/L High 98-110 [facility] ([place] Comment on above: Performed By: #### A UNRULY, ADIFF, GFR, BMP, CBC ####[address] [address] CO2 [Moles/Vol] 23 mmol/L Normal 22-32 [facility] ([place] Comment on above: Performed By: #### A UNRULY, ADIFF, GFR, BMP, CBC ####[address] [address] Creatinine [Mass/Vol] 0.80 mg/dL Normal 0.50-1.20 [facility] ([place] Comment on above: Performed By: #### A UNRULY, ADIFF, GFR, BMP, CBC ####[address] [address] Electrolyte Balance 6.0 mEq/L Normal 4.0-15.0 [facility] ([place] Comment on above: Performed By: #### A UNRULY, ADIFF, GFR, BMP, CBC ####[address] [address] Glucose [Mass/Vol] 76 mg/dL Low 82-115 [facility] ([place] Comment on above: Performed By: #### A UNRULY, ADIFF, GFR, BMP, CBC ####[place] [address] Potassium [Moles/Vol] 4.4 mmol/L Normal 3.5-5.0 [facility] ([place] Comment on above: Performed By: #### A UNRULY, ADIFF, GFR, BMP, CBC ####[place] [address] Sodium [Moles/Vol] 141 mmol/L Normal 136-145 [facility] ([place] Comment on above: Performed By: #### A UNRULY, ADIFF, GFR, BMP, CBC ####[place] [address] Urea nitrogen [Mass/Vol] 31.0 mg/dL High 8.0-22.0 [facility] ([place] Comment on above: Performed By: #### A UNRULY, ADIFF, GFR, BMP, CBC ####[place] [address] CBCon 08-10-2023 Erythrocyte distribution width (RBC) [Ratio] 15.3 % Normal 11.5-15.5 [facility] ([place] Comment on above: Performed By: #### A UNRULY, ADIFF, GFR, BMP, CBC ####[place] [address] Hematocrit (Bld) [Volume fraction] 32.5 % Low 34.0-46.0 [facility] ([place] Comment on above: Performed By: #### A UNRULY, ADIFF, GFR, BMP, CBC ####[place] [address] Hgb 10.8 G/dL Low 12.0-16.0 [facility] ([place] Comment on above: Performed By: #### A UNRULY, ADIFF, GFR, BMP, CBC ####[place] [address] MCH (RBC) [Entitic mass] 28.1 pg Normal 27.0-33.0 [facility] ([place] Comment on above: Performed By: #### A UNRULY, ADIFF, GFR, BMP, CBC ####[place] [address] MCHC 33.1 G/dL Normal 32.0-36.0 [facility] ([place] Comment on above: Performed By: #### A UNRULY, ADIFF, GFR, BMP, CBC ####[place] [address] MCV (RBC) [Entitic vol] 85.0 fL Normal 80.0-99.0 A [facility] ([place] Comment on above: Performed By: #### A UNRULY, ADIFF, GFR, BMP, CBC ####[place] [address] Platelet 307 10 3/mcL Normal 150-450 [facility] ([place] Comment on above: Performed By: #### A UNRULY, ADIFF, GFR, BMP, CBC ####[place] [address] Platelet mean volume (Bld) [Entitic vol] 7.4 fL Normal 6.6-10.5 [facility] ([place] Comment on above: Performed By: #### A UNRULY, ADIFF, GFR, BMP, CBC ####[place] [address] RBC 3.83 10 6/mcL Low 4.10-5.30 [facility] ([place] Comment on above: Performed By: #### A UNRULY, ADIFF, GFR, BMP, CBC ####[place] [address] WBC 6.9 10 3/mcL Normal 4.5-10.8 [facility] ([place] Comment on above: Performed By: #### A UNRULY, ADIFF, GFR, BMP, CBC ####[place] [address] LABORATORYOrdered By: SYSTEM SYSTEM on 08-10-2023 Basophils [...] 33.1 G/dL Normal 32.0 - 36.0 G/dL Workflow SS MCV (RBC) [Entitic vol] 85.0 [...] 52.9 % Normal 50.0 - 75.0 % Workflow SS Platelet [...] 0.0 10 3/mcL Normal 0.0-0.3 [facility] ([place]) Comment on above: Performed By: #### A UNRULY, VALPR, CBC, ADIFF, BMP, GFR, AMM #### [address] [address] Basophils/100 WBC (Bld) 0.3 % Normal 0.0-2.5 A [facility] ([place]) Comment on above: Performed By: #### A UNRULY, VALPR, CBC, ADIFF, BMP, GFR, AMM #### [address] [address] Eosinophil, Absolute 0.2 10 3/mcL Normal 0.0-0.7 [facility] ([place]) Comment on above: Performed By: #### A UNRULY, VALPR, CBC, ADIFF, BMP, GFR, AMM #### [address] [address] Eosinophils/100 WBC (Bld) 2.2 % Normal 0.0-6.0 [facility] ([place]) Comment on above: Performed By: #### A UNRULY, VALPR, CBC, ADIFF, BMP, GFR, AMM #### [address] [address] Lymphocyte, Absolute 1.9 10 3/mcL Normal 0.9-4.3 [facility] ([place] Comment on above: Performed By: #### A UNRULY, VALPR, CBC, ADIFF, BMP, GFR, AMM #### [address] [address] Lymphocytes/100 WBC (Bld) 25.8 % Normal 20.0-40.0 [facility] ([place] Comment on above: Performed By: #### A UNRULY, VALPR, CBC, ADIFF, BMP, GFR, AMM #### [address] [address] Monocyte, Absolute 0.8 10 3/mcL Normal 0.1-1.4 [facility] ([place] Comment on above: Performed By: #### A UNRULY, VALPR, CBC, ADIFF, BMP, GFR, AMM #### [address] [address] Monocytes/100 WBC (Bld) 11.1 % Normal 2.0-13.0 A [facility] ([place] Comment on above: Performed By: #### A UNRULY, VALPR, CBC, ADIFF, BMP, GFR, AMM #### [address] [address] Neutrophils/100 WBC (Bld) 60.6 % Normal 50.0-75.0 [facility] ([place] Comment on above: Performed By: #### A UNRULY, VALPR, CBC, ADIFF, BMP, GFR, AMM #### [address] [address] .GFRon 08-09-2023 GFR Non- >60 Normal [facility] ([place] Comment on above: Result Comment: GFR Population [...] VALPR, CBC, ADIFF, BMP, GFR, AMM #### [address] [address] GFR >60 Normal [facility] ([place] Comment on above: Result Comment: GFR Population [...] VALPR, CBC, ADIFF, BMP, GFR, AMM #### [address] [address] .NEUABSon 08-09-2023 Neutrophil, Absolute 4.5 10 3/mcL Normal 2.3-8.1 [facility] ([place] Comment on above: Performed By: #### A UNRULY, VALPR, CBC, ADIFF, BMP, GFR, AMM #### [address] [address] Gael 08-09-2023 Ammonia 19 mcmol/l Normal 11-32 [facility] ([place] Comment on above: Performed By: #### A UNRULY, VALPR, CBC, ADIFF, BMP, GFR, AMM #### [address] [address] BMPon 08-09-2023 BUN/Creatinine Ratio 30.9 ratio High 10.0-22.0 [facility] ([place] Comment on above: Performed By: #### A UNRULY, VALPR, CBC, ADIFF, BMP, GFR, AMM #### [address] [address] Calcium [Mass/Vol] 8.8 mg/dL Normal 8.7-10.4 [facility] ([place]) Comment on above: Performed By: #### A UNRULY, VALPR, CBC, ADIFF, BMP, GFR, AMM #### [address] [address] Chloride [Moles/Vol] 109 mmol/L Normal 98-110 [facility] ([place] Comment on above: Performed By: #### A UNRULY, VALPR, CBC, ADIFF, BMP, GFR, AMM #### [place] [id number] CO2 [Moles/Vol] 25 mmol/L Normal 22-32 [facility] ([place] Comment on above: Performed By: #### A UNRULY, VALPR, CBC, ADIFF, BMP, GFR, AMM #### [place] [address] Creatinine [Mass/Vol] 0.81 mg/dL Normal 0.50-1.20 [facility] ([place]) Comment on above: Performed By: #### A UNRULY, VALPR, CBC, ADIFF, BMP, GFR, AMM #### [place] [address] Electrolyte Balance 7.0 mEq/L Normal 4.0-15.0 formerly [facility] ([place] Comment on above: Performed By: #### A UNRULY, VALPR, CBC, ADIFF, BMP, GFR, AMM #### [place] [id number] Glucose [Mass/Vol] 81 mg/dL Low 82-115 [facility] ([place]) Comment on above: Performed By: #### A UNRULY, VALPR, CBC, ADIFF, BMP, GFR, AMM #### [address] [address] Potassium [Moles/Vol] 4.2 mmol/L Normal 3.5-5.0 [facility] ([place] Comment on above: Performed By: #### A UNRULY, VALPR, CBC, ADIFF, BMP, GFR, AMM #### [address] [address] Sodium [Moles/Vol] 141 mmol/L Normal 136-145 [facility] ([place] Comment on above: Performed By: #### A UNRULY, VALPR, CBC, ADIFF, BMP, GFR, AMM #### [place] [id number] Urea nitrogen [Mass/Vol] 25.0 mg/dL High 8.0-22.0 [facility] ([place] Comment on above: Performed By: #### A UNRULY, VALPR, CBC, ADIFF, BMP, GFR, AMM #### [place] [id number] CBCon 08-09-2023 Erythrocyte distribution width (RBC) [Ratio] 15.2 % Normal 11.5-15.5 [facility] ([place] Comment on above: Performed By: #### A UNRULY, VALPR, CBC, ADIFF, BMP, GFR, AMM #### [place] [address] Hematocrit (Bld) [Volume fraction] 34.1 % Normal 34.0-46.0 [facility] ([place] Comment on above: Performed By: #### A UNRULY, VALPR, CBC, ADIFF, BMP, GFR, AMM #### [address] [address] Hgb 11.6 G/dL Low 12.0-16.0 [facility] ([place] Comment on above: Performed By: #### A UNRULY, VALPR, CBC, ADIFF, BMP, GFR, AMM #### [place] [id number] MCH (RBC) [Entitic mass] 28.3 pg Normal 27.0-33.0 [facility] ([place] Comment on above: Performed By: #### A UNRULY, VALPR, CBC, ADIFF, BMP, GFR, AMM #### [place] [address] MCHC 33.9 G/dL Normal 32.0-36.0 [facility] ([place] Comment on above: Performed By: #### A UNRULY, VALPR, CBC, ADIFF, BMP, GFR, AMM #### [place] [address] MCV (RBC) [Entitic vol] 83.6 fL Normal 80.0-99.0 A [facility] ([place] Comment on above: Performed By: #### A UNRULY, VALPR, CBC, ADIFF, BMP, GFR, AMM #### [place] [address] Platelet 299 10 3/mcL Normal 150-450 [facility] ([place] Comment on above: Performed By: #### A UNRULY, VALPR, CBC, ADIFF, BMP, GFR, AMM #### [place] [address] Platelet mean volume (Bld) [Entitic vol] 7.2 fL Normal 6.6-10.5 [facility] ([place] Comment on above: Performed By: #### A UNRULY, VALPR, CBC, ADIFF, BMP, GFR, AMM #### [place] [address] RBC 4.08 10 6/mcL Low 4.10-5.30 [facility] ([place] Comment on above: Performed By: #### A UNRULY, VALPR, CBC, ADIFF, BMP, GFR, AMM #### [place] [address] WBC 7.4 10 3/mcL Normal 4.5-10.8 [facility] ([place] Comment on above: Performed By: #### A UNRULY, VALPR, CBC, ADIFF, BMP, GFR, AMM #### [place] [address] LABORATORYOrdered By: SYSTEM SYSTEM on 08-09-2023 Ammonia [...] 0.8 103/mcL Normal 0.1 - 1.4 10^3/mcL Workflow SS Monocytes/100 WBC (Bld) 11.1 % Normal 2.0 - 13.0 % AH Workflow SS Neutrophils (Bld) [#/Vol] 4.5 103/mcL Normal 2.3 - 8.1 10^3/mcL AH Workflow SS Neutrophils/100 WBC (Bld) 60.6 % Normal 50.0 - 75.0 % Workflow SS Platelet [...] Acid: See eMAR (08/09/23 7:41 AM) Normal AH Chemistry S MRI BRAIN W/O CONTRASTon MRI [...] 08/09/2023 11:01:30 AM Ordering Provider: BRITT Castro [facility] ([place]) VALPRon 08-09-2023 LDose Valproic Acid: See eMAR Normal [facility] ([place] Comment on above: Performed By: #### A UNRULY, VALPR, CBC, ADIFF, BMP, GFR, AMM #### [address] [address] Valproic Acid Lvl 110.8 mcg/mL Normal 50.0-130.0 [facility] ([place] Comment on above: Performed By: #### A UNRULY, VALPR, CBC, ADIFF, BMP, GFR, AMM #### [address] [address] .Auto Diffon 08-08-2023 Basophil, Absolute 0.0 10 3/mcL Normal 0.0-0.3 [facility] ([place] Comment on above: Performed By: #### A UNRULY, VALPR, CBC, ADIFF, BMP, GFR, AMM #### [place] [address] Basophils/100 WBC (Bld) 0.4 % Normal 0.0-2.5 A [facility] ([place] Comment on above: Performed By: #### A UNRULY, VALPR, CBC, ADIFF, BMP, GFR, AMM #### [address] [address] Eosinophil, Absolute 0.3 10 3/mcL Normal 0.0-0.7 [facility] ([place] Comment on above: Performed By: #### A UNRULY, VALPR, CBC, ADIFF, BMP, GFR, AMM #### [address] [address] Eosinophils/100 WBC (Bld) 3.2 % Normal 0.0-6.0 [facility] ([place] Comment on above: Performed By: #### A UNRULY, VALPR, CBC, ADIFF, BMP, GFR, AMM #### [place] [address] Lymphocyte, Absolute 3.1 10 3/mcL Normal 0.9-4.3 [facility] ([place] Comment on above: Performed By: #### A UNRULY, VALPR, CBC, ADIFF, BMP, GFR, AMM #### [address] [address] Lymphocytes/100 WBC (Bld) 31.0 % Normal 20.0-40.0 [facility] ([place] Comment on above: Performed By: #### A UNRULY, VALPR, CBC, ADIFF, BMP, GFR, AMM #### [address] [address] Monocyte, Absolute 1.1 10 3/mcL Normal 0.1-1.4 [facility] ([place]) Comment on above: Performed By: #### A UNRULY, VALPR, CBC, ADIFF, BMP, GFR, AMM #### [address] [address] Monocytes/100 WBC (Bld) 11.5 % Normal 2.0-13.0 A [facility] [place] Comment on above: Performed By: #### A UNRULY, VALPR, CBC, ADIFF, BMP, GFR, AMM #### [address] [address] Neutrophils/100 WBC (Bld) 53.9 % Normal 50.0-75.0 [facility] ([place] Comment on above: Performed By: #### A UNRULY, VALPR, CBC, ADIFF, BMP, GFR, AMM #### [address] [address] .GFRon 08-08-2023 GFR >60 Normal [facility] ([place] Comment on above: Result Comment: GFR Population [...] VALPR, CBC, ADIFF, BMP, GFR, AMM #### [address] [address] GFR Non- >60 Normal [facility] ([place] Comment on above: Result Comment: GFR Population [...] VALPR, CBC, ADIFF, BMP, GFR, AMM #### [address] [address] .NEUABSon 08-08-2023 Neutrophil, Absolute 5.4 10 3/mcL Normal 2.3-8.1 [facility] ([place] Comment on above: Performed By: #### A UNRULY, VALPR, CBC, ADIFF, BMP, GFR, AMM #### [address] [address] Gael 08-08-2023 Ammonia 30 mcmol/l Normal 11-32 [facility] ([place] Comment on above: Performed By: #### A UNRULY, VALPR, CBC, ADIFF, BMP, GFR, AMM #### [address] [address] CBCon 08-08-2023 Erythrocyte distribution width (RBC) [Ratio] 15.5 % Normal 11.5-15.5 [facility] ([place] Comment on above: Performed By: #### A UNRULY, VALPR, CBC, ADIFF, BMP, GFR, AMM #### [address] [address] Hematocrit (Bld) [Volume fraction] 32.9 % Low 34.0-46.0 [facility] ([place] Comment on above: Performed By: #### A UNRULY, VALPR, CBC, ADIFF, BMP, GFR, AMM #### [place] [address] Hgb 11.2 G/dL Low 12.0-16.0 [facility] ([place] Comment on above: Performed By: #### A UNRULY, VALPR, CBC, ADIFF, BMP, GFR, AMM #### [place] [address] MCH (RBC) [Entitic mass] 28.6 pg Normal 27.0-33.0 [facility] ([place] Comment on above: Performed By: #### A UNRULY, VALPR, CBC, ADIFF, BMP, GFR, AMM #### [place] [address] MCHC 33.9 G/dL Normal 32.0-36.0 [facility] ([place] Comment on above: Performed By: #### A UNRULY, VALPR, CBC, ADIFF, BMP, GFR, AMM #### [place] [address] MCV (RBC) [Entitic vol] 84.2 fL Normal 80.0-99.0 A [facility] [place] Comment on above: Performed By: #### A UNRULY, VALPR, CBC, ADIFF, BMP, GFR, AMM #### [place] [address] Platelet 279 10 3/mcL Normal 150-450 [facility] ([place] Comment on above: Performed By: #### A UNRULY, VALPR, CBC, ADIFF, BMP, GFR, AMM #### [place] [address] Platelet mean volume (Bld) [Entitic vol] 7.7 fL Normal 6.6-10.5 [facility] ([place] Comment on above: Performed By: #### A UNRULY, VALPR, CBC, ADIFF, BMP, GFR, AMM #### [address] [address] RBC 3.90 10 6/mcL Low 4.10-5.30 [facility] ([place] Comment on above: Performed By: #### A UNRULY, VALPR, CBC, ADIFF, BMP, GFR, AMM #### [address] [address] WBC 9.9 10 3/mcL Normal 4.5-10.8 [facility] ([place] Comment on above: Performed By: #### A UNRULY, VALPR, CBC, ADIFF, BMP, GFR, AMM #### [address] [address] CMPon 08-08-2023 Albumin Level 2.7 G/dL Low 3.2-4.8 [facility] ([place] Comment on above: Performed By: #### A UNRULY, VALPR, CBC, ADIFF, BMP, GFR, AMM #### [place] [id number] Albumin/Globulin [Mass ratio] 0.6 {ratio} Low 0.9-1.6 [facility] ([place] Comment on above: Performed By: #### A UNRULY, VALPR, CBC, ADIFF, BMP, GFR, AMM #### [address] [address] ALP [Catalytic activity/Vol] 52 U/L Normal 38-126 [facility] ([place] Comment on above: Performed By: #### A UNRULY, VALPR, CBC, ADIFF, BMP, GFR, AMM #### [address] [address] ALT [Catalytic activity/Vol] 30 U/L Normal 10-49 [facility] ([place] Comment on above: Performed By: #### A UNRULY, VALPR, CBC, ADIFF, BMP, GFR, AMM #### [address] [address] AST [Catalytic activity/Vol] 48 U/L High 8-34 [facility] ([place] Comment on above: Performed By: #### A UNRULY, VALPR, CBC, ADIFF, BMP, GFR, AMM #### [address] [address] Bili Total 0.30 mg/dL Normal 0.20-1.20 [facility] ([place] Comment on above: Result Comment: Use of this assay is not recommended for patients undergoing treatment with eltrombopag due to the potential for falsely elevated results. Performed By: #### A UNRULY, VALPR, CBC, ADIFF, BMP, GFR, AMM #### [address] [address] BUN/Creatinine Ratio 28.0 ratio High 10.0-22.0 [facility] ([place] Comment on above: Performed By: #### A UNRULY, VALPR, CBC, ADIFF, BMP, GFR, AMM #### [address] [address] Calcium [Mass/Vol] 8.5 mg/dL Low 8.7-10.4 [facility] ([place]) Comment on above: Performed By: #### A UNRULY, VALPR, CBC, ADIFF, BMP, GFR, AMM #### [address] [address] Chloride [Moles/Vol] 110 mmol/L Normal 98-110 [facility] ([place] Comment on above: Performed By: #### A UNRULY, VALPR, CBC, ADIFF, BMP, GFR, AMM #### [address] [address] CO2 [Moles/Vol] 22 mmol/L Normal 22-32 [facility] ([place] Comment on above: Performed By: #### A UNRULY, VALPR, CBC, ADIFF, BMP, GFR, AMM #### [address] [address] Creatinine [Mass/Vol] 0.75 mg/dL Normal 0.50-1.20 [facility] ([place] Comment on above: Performed By: #### A UNRULY, VALPR, CBC, ADIFF, BMP, GFR, AMM #### [address] [address] Electrolyte Balance 6.0 mEq/L Normal 4.0-15.0 [facility] [place] Comment on above: Performed By: #### A UNRULY, VALPR, CBC, ADIFF, BMP, GFR, AMM #### [address] [address] Globulin 4.3 G/dL High 1.5-3.8 [facility] ([place] Comment on above: Performed By: #### A UNRULY, VALPR, CBC, ADIFF, BMP, GFR, AMM #### [address] [address] Glucose [Mass/Vol] 77 mg/dL Low 82-115 [facility] ([place]) Comment on above: Performed By: #### A UNRULY, VALPR, CBC, ADIFF, BMP, GFR, AMM #### [address] [address] Potassium [Moles/Vol] 4.0 mmol/L Normal 3.5-5.0 [facility] ([place] Comment on above: Performed By: #### A UNRULY, VALPR, CBC, ADIFF, BMP, GFR, AMM #### [address] [address] Sodium [Moles/Vol] 138 mmol/L Normal 136-145 [facility] ([place] Comment on above: Performed By: #### A UNRULY, VALPR, CBC, ADIFF, BMP, GFR, AMM #### [address] [address] Total Protein 7.0 G/dL Normal 5.7-8.2 [facility] ([place] Comment on above: Result Comment: No te - New Reference Range in effect 19 Performed By: #### A UNRULY, VALPR, CBC, ADIFF, BMP, GFR, AMM #### [address] [address] Urea nitrogen [Mass/Vol] 21.0 mg/dL Normal 8.0-22.0 [facility] ([place] Comment on above: Performed By: #### A UNRULY, VALPR, CBC, ADIFF, BMP, GFR, AMM #### [address] [address] KEPPRAon 08-08-2023 Levetiracetam Lvl 80.8 UG/ML High 10.0-40.0 [facility] ([place] Comment on above: Result Comment: Perf ormed At: [facility] [address] [id number] Yan Sanchez MD Ph:[phone] Performed By: #### A UNRULY, VALPR, CBC, ADIFF, BMP, GFR, AMM #### [address] [address] LABORATORYOrdered By: SYSTEM SYSTEM on 08-08-2023 Albumin [...] Valproic Acid: See eMAR Normal [facility] ([place] Comment on above: Performed By: #### A UNRULY, VALPR, CBC, ADIFF, BMP, GFR, AMM #### [address] [address] Valproic Acid Lvl 107.6 mcg/mL Normal 50.0-130.0 [facility] ([place] Comment on above: Performed By: #### A UNRULY, VALPR, CBC, ADIFF, BMP, GFR, AMM #### [address] [address] .Auto Diffon 08-07-2023 Basophil, Absolute 0.0 10 3/mcL Normal 0.0-0.3 [facility] ([place] Comment on above: Performed By: #### A UNRULY, ADIFF, GFR, CBC, BMP ####[address] [address] Basophils/100 WBC (Bld) 0.3 % Normal 0.0-2.5 [facility] ([place] Comment on above: Performed By: #### A UNRULY, ADIFF, GFR, CBC, BMP ####[address] [address] Eosinophil, Absolute 0.2 10 3/mcL Normal 0.0-0.7 [facility] ([place] Comment on above: Performed By: #### A UNRULY, ADIFF, GFR, CBC, BMP ####[address] [address] Eosinophils/100 WBC (Bld) 1.7 % Normal 0.0-6.0 [facility] ([place] Comment on above: Performed By: #### A UNRULY, ADIFF, GFR, CBC, BMP ####[address] [address] Lymphocyte, Absolute 3.3 10 3/mcL Normal 0.9-4.3 [facility] ([place] Comment on above: Performed By: #### A UNRULY, ADIFF, GFR, CBC, BMP ####[address] [address] Lymphocytes/100 WBC (Bld) 26.3 % Normal 20.0-40.0 [facility] ([place] Comment on above: Performed By: #### A UNRULY, ADIFF, GFR, CBC, BMP ####[address] [address] Monocyte, Absolute 1.4 10 3/mcL Normal 0.1-1.4 [facility] ([place] Comment on above: Performed By: #### A UNRULY, ADIFF, GFR, CBC, BMP ####[address] [address] Monocytes/100 WBC (Bld) 11.0 % Normal 2.0-13.0 A [facility] ([place] Comment on above: Performed By: #### A UNRULY, ADIFF, GFR, CBC, BMP ####[address] [address] Neutrophils/100 WBC (Bld) 60.7 % Normal 50.0-75.0 [facility] ([place] Comment on above: Performed By: #### A UNRULY, ADIFF, GFR, CBC, BMP ####[address] [address] .GFRon 08-07-2023 GFR Non- >60 Normal [facility] ([place] Comment on above: Result Comment: GFR Population [...] #### A UNRULY, ADIFF, GFR, CBC, BMP ####[address] [address] GFR >60 Normal [facility] ([place] Comment on above: Result Comment: GFR Population [...] #### A UNRULY, ADIFF, GFR, CBC, BMP ####[address] [address] .NEUABSon 08-07-2023 Neutrophil, Absolute 7.6 10 3/mcL Normal 2.3-8.1 [facility] ([place] Comment on above: Performed By: #### A UNRULY, ADIFF, GFR, CBC, BMP ####[address] [address] BMPon 08-07-2023 BUN/Creatinine Ratio 25.0 ratio High 10.0-22.0 [facility] [place] Comment on above: Performed By: #### A UNRULY, ADIFF, GFR, CBC, BMP ####[address] [address] Calcium [Mass/Vol] 9.0 mg/dL Normal 8.7-10.4 [facility] ([place] Comment on above: Performed By: #### A UNRULY, ADIFF, GFR, CBC, BMP ####[address] [address] Chloride [Moles/Vol] 107 mmol/L Normal 98-110 [facility] ([place] Comment on above: Performed By: #### A UNRULY, ADIFF, GFR, CBC, BMP ####[address] [address] CO2 [Moles/Vol] 23 mmol/L Normal 22-32 [facility] ([place] Comment on above: Performed By: #### A UNRULY, ADIFF, GFR, CBC, BMP ####[place] [address] Creatinine [Mass/Vol] 0.80 mg/dL Normal 0.50-1.20 [facility] ([place] Comment on above: Performed By: #### A UNRULY, ADIFF, GFR, CBC, BMP ####[place] [address] Electrolyte Balance 7.0 mEq/L Normal 4.0-15.0 [facility] [place] Comment on above: Performed By: #### A UNRULY, ADIFF, GFR, CBC, BMP ####[place] [address] Glucose [Mass/Vol] 82 mg/dL Normal 82-115 [facility] ([place] Comment on above: Performed By: #### A UNRULY, ADIFF, GFR, CBC, BMP ####[place] [address] Potassium [Moles/Vol] 4.1 mmol/L Normal 3.5-5.0 [facility] ([place] Comment on above: Performed By: #### A UNRULY, ADIFF, GFR, CBC, BMP ####[place] [address] Sodium [Moles/Vol] 137 mmol/L Normal 136-145 [facility] ([place] Comment on above: Performed By: #### A UNRULY, ADIFF, GFR, CBC, BMP ####[address] [address] Urea nitrogen [Mass/Vol] 20.0 mg/dL Normal 8.0-22.0 [facility] ([place] Comment on above: Performed By: #### A UNRULY, ADIFF, GFR, CBC, BMP ####[address] [address] CBCon 08-07-2023 Erythrocyte distribution width (RBC) [Ratio] 15.7 % High 11.5-15.5 [facility] ([place] Comment on above: Performed By: #### A UNRULY, VALPR, CBC, ADIFF, BMP, GFR, AMM #### [place] [id number] Hematocrit (Bld) [Volume fraction] 31.6 % Low 34.0-46.0 [facility] ([place] Comment on above: Performed By: #### A UNRULY, VALPR, CBC, ADIFF, BMP, GFR, AMM #### [place] [id number] Hgb 10.8 G/dL Low 12.0-16.0 [facility] ([place] Comment on above: Performed By: #### A UNRULY, VALPR, CBC, ADIFF, BMP, GFR, AMM #### [place] [id number] MCH (RBC) [Entitic mass] 28.7 pg Normal 27.0-33.0 [facility] ([place] Comment on above: Performed By: #### A UNRULY, VALPR, CBC, ADIFF, BMP, GFR, AMM #### [place] [id number] MCHC 34.3 G/dL Normal 32.0-36.0 [facility] ([place] Comment on above: Performed By: #### A UNRULY, VALPR, CBC, ADIFF, BMP, GFR, AMM #### [place] [id number] MCV (RBC) [Entitic vol] 83.7 fL Normal 80.0-99.0 A [facility] [place] Comment on above: Performed By: #### A UNRULY, VALPR, CBC, ADIFF, BMP, GFR, AMM #### [place] [id number] Platelet 267 10 3/mcL Normal 150-450 [facility] ([place] Comment on above: Performed By: #### A UNRULY, VALPR, CBC, ADIFF, BMP, GFR, AMM #### [place] [id number] Platelet mean volume (Bld) [Entitic vol] 7.5 fL Normal 6.6-10.5 [facility] ([place] Comment on above: Performed By: #### A UNRULY, VALPR, CBC, ADIFF, BMP, GFR, AMM #### [address] [address] RBC 3.78 10 6/mcL Low 4.10-5.30 [facility] ([place] Comment on above: Performed By: #### A UNRULY, VALPR, CBC, ADIFF, BMP, GFR, AMM #### [address] [address] WBC 12.5 10 3/mcL High 4.5-10.8 [facility] ([place]) Comment on above: Performed By: #### A UNRULY, VALPR, CBC, ADIFF, BMP, GFR, AMM #### [address] [address] [place] MAMMOGRAM SCREENING BILAT ERAL W/TOMOon 08-07-2023 MA MAMMOGRAM SCREENING BILATERAL W/TOMASZ ORIGINAL FROM: [address] [address] PROCEDURE FOR: NAI VelazquezAmy HERNANDEZ [facility] [address] [place] [address] Home: PID#: [id number] Exam#: [id number] : 1955 Age: 67 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 I have personally reviewed the [...] 08/07/2023 6:23:16 PM Ordering Provider: FISH JORDAN Pbx Manager: MYRTLE HOUSER RT(R)(M)(CT) letter sent: Normal BI-RADS 1 and 2 Mammogram BI-RADS: 2 Benign Normal [facility] ([place] .Auto Diffon 08-06-2023 Basophil, Absolute 0.1 10 3/mcL Normal 0.0-0.3 [facility] ([place] Comment on above: Performed By: #### A UNRULY, VALPR, CBC, ADIFF, BMP, GFR, AMM #### [address] [address] Basophils/100 WBC (Bld) 0.6 % Normal 0.0-2.5 A [facility] [place] Comment on above: Performed By: #### A UNRULY, VALPR, CBC, ADIFF, BMP, GFR, AMM #### [address] [address] Eosinophil, Absolute 0.1 10 3/mcL Normal 0.0-0.7 [facility] [place] Comment on above: Performed By: #### A UNRULY, VALPR, CBC, ADIFF, BMP, GFR, AMM #### [address] [address] Eosinophils/100 WBC (Bld) 0.7 % Normal 0.0-6.0 [facility] ([place] Comment on above: Performed By: #### A UNRULY, VALPR, CBC, ADIFF, BMP, GFR, AMM #### [address] [address] Lymphocyte, Absolute 3.0 10 3/mcL Normal 0.9-4.3 [facility] ([place] Comment on above: Performed By: #### A UNRULY, VALPR, CBC, ADIFF, BMP, GFR, AMM #### [address] [address] Lymphocytes/100 WBC (Bld) 24.9 % Normal 20.0-40.0 [facility] ([place] Comment on above: Performed By: #### A UNRULY, VALPR, CBC, ADIFF, BMP, GFR, AMM #### [address] [address] Monocyte, Absolute 1.8 10 3/mcL High 0.1-1.4 [facility] [place] Comment on above: Performed By: #### A UNRULY, VALPR, CBC, ADIFF, BMP, GFR, AMM #### [address] [address] Monocytes/100 WBC (Bld) 14.5 % High 2.0-13.0 A [facility] [place] Comment on above: Performed By: #### A UNRULY, VALPR, CBC, ADIFF, BMP, GFR, AMM #### [address] [address] Neutrophils/100 WBC (Bld) 59.3 % Normal 50.0-75.0 [facility] [place] Comment on above: Performed By: #### A UNRULY, VALPR, CBC, ADIFF, BMP, GFR, AMM #### [address] [address] .GFRon 08-06-2023 GFR Non- >60 Normal [facility] [place] Comment on above: Result Comment: GFR Population [...] VALPR, CBC, ADIFF, BMP, GFR, AMM #### [address] [address] GFR >60 Normal [facility] [place] Comment on above: Result Comment: GFR Population [...] VALPR, CBC, ADIFF, BMP, GFR, AMM #### [address] [address] .NEUABSon 08-06-2023 Neutrophil, Absolute 7.1 10 3/mcL Normal 2.3-8.1 [facility] ([place] Comment on above: Performed By: #### A UNRULY, VALPR, CBC, ADIFF, BMP, GFR, AMM #### [address] [address] BMPon 08-06-2023 BUN/Creatinine Ratio 17.7 ratio Normal 10.0-22.0 [facility] [place] Comment on above: Performed By: #### A UNRULY, VALPR, CBC, ADIFF, BMP, GFR, AMM #### [address] [address] Calcium [Mass/Vol] 9.4 mg/dL Normal 8.7-10.4 [facility] ([place] Comment on above: Performed By: #### A UNRULY, VALPR, CBC, ADIFF, BMP, GFR, AMM #### [address] [address] Chloride [Moles/Vol] 102 mmol/L Normal 98-110 [facility] ([place] Comment on above: Performed By: #### A UNRULY, VALPR, CBC, ADIFF, BMP, GFR, AMM #### [address] [address] CO2 [Moles/Vol] 24 mmol/L Normal 22-32 [facility] ([place] Comment on above: Performed By: #### A UNRULY, VALPR, CBC, ADIFF, BMP, GFR, AMM #### [address] [address] Creatinine [Mass/Vol] 0.79 mg/dL Normal 0.50-1.20 [facility] ([place] Comment on above: Performed By: #### A UNRULY, VALPR, CBC, ADIFF, BMP, GFR, AMM #### [address] [address] Electrolyte Balance 8.0 mEq/L Normal 4.0-15.0 [facility] [place] Comment on above: Performed By: #### A UNRULY, VALPR, CBC, ADIFF, BMP, GFR, AMM #### [address] [address] Glucose [Mass/Vol] 96 mg/dL Normal 82-115 [facility] ([place] Comment on above: Performed By: #### A UNRULY, VALPR, CBC, ADIFF, BMP, GFR, AMM #### [address] [address] Potassium [Moles/Vol] 4.1 mmol/L Normal 3.5-5.0 [facility] ([place]) Comment on above: Performed By: #### A UNRULY, VALPR, CBC, ADIFF, BMP, GFR, AMM #### [place] [address] Sodium [Moles/Vol] 134 mmol/L Low 136-145 [facility] ([place] Comment on above: Performed By: #### A UNRULY, VALPR, CBC, ADIFF, BMP, GFR, AMM #### [place] [address] Urea nitrogen [Mass/Vol] 14.0 mg/dL Normal 8.0-22.0 [facility] ([place]) Comment on above: Performed By: #### A UNRULY, VALPR, CBC, ADIFF, BMP, GFR, AMM #### [place] [id number] [facility]Con 08-06-2023 Erythrocyte distribution width (RBC) [Ratio] 15.2 % Normal 11.5-15.5 [facility] ([place] Comment on above: Performed By: #### A UNRULY, VALPR, CBC, ADIFF, BMP, GFR, AMM #### [place] [address] Hematocrit (Bld) [Volume fraction] 32.3 % Low 34.0-46.0 [facility] ([place] Comment on above: Performed By: #### A UNRULY, VALPR, CBC, ADIFF, BMP, GFR, AMM #### [place] [address] Hgb 11.1 G/dL Low 12.0-16.0 [facility] ([place] Comment on above: Performed By: #### A UNRULY, VALPR, CBC, ADIFF, BMP, GFR, AMM #### [place] [id number] MCH (RBC) [Entitic mass] 28.7 pg Normal 27.0-33.0 [facility] ([place] Comment on above: Performed By: #### A UNRULY, VALPR, CBC, ADIFF, BMP, GFR, AMM #### [place] [address] MCHC 34.5 G/dL Normal 32.0-36.0 [facility] ([place] Comment on above: Performed By: #### A UNRULY, VALPR, CBC, ADIFF, BMP, GFR, AMM #### [place] [address] MCV (RBC) [Entitic vol] 83.2 fL Normal 80.0-99.0 A [facility] ([place] Comment on above: Performed By: #### A UNRULY, VALPR, CBC, ADIFF, BMP, GFR, AMM #### [place] [address] Platelet 230 10 3/mcL Normal 150-450 [facility] ([place]) Comment on above: Performed By: #### A UNRULY, VALPR, CBC, ADIFF, BMP, GFR, AMM #### [place] [address] Platelet mean volume (Bld) [Entitic vol] 8.4 fL Normal 6.6-10.5 [facility] ([place] Comment on above: Performed By: #### A UNRULY, VALPR, CBC, ADIFF, BMP, GFR, AMM #### [place] [address] RBC 3.88 10 6/mcL Low 4.10-5.30 [facility] ([place]) Comment on above: Performed By: #### A UNRULY, VALPR, CBC, ADIFF, BMP, GFR, AMM #### [place] [address] WBC 12.1 10 3/mcL High 4.5-10.8 [facility] ([place]) Comment on above: Performed By: #### A UNRULY, VALPR, CBC, ADIFF, BMP, GFR, AMM #### [place] [address] LABORATORYOrdered By: Keshia Vasquez on 08-06-2023 Osmolality [...] Sodium [Moles/Vol] 64 mmol/L Normal [facility] ([place]) Comment on above: Performed By: #### A UNRULY, VALPR, CBC, ADIFF, BMP, GFR, AMM #### [place] [address] No Panel Informationon 08-05 Microscopic examination of blood, culture Blood Culture: No Growth at 5 days. 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 This may be seen in chronic inflammatory or infectious diseases, or in patients receiving intravenous immunoglobulin therapy. Normal [facility] ([place]) Comment on above: Result Comment: Elec tronically Signed by: SELINA CEDILLO 08/06/2023 15:08 EDT Performed By: #### A UNRULY, VALPR, CBC, ADIFF, BMP, GFR, AMM #### [place] [address] Albumin 3.4 G/dL Normal 3.3-5.0 [facility] ([place]) Comment on above: Performed By: #### A UNRULY, VALPR, CBC, ADIFF, BMP, GFR, AMM #### [place] [address] Alpha 1 0.2 G/dL Normal 0.1-0.4 [facility] ([place]) Comment on above: Performed By: #### A UNRULY, VALPR, CBC, ADIFF, BMP, GFR, AMM #### [place] [address] Alpha 2 1.1 G/dL Normal 0.6-1.2 [facility] ([place]) Comment on above: Performed By: #### A UNRULY, VALPR, CBC, ADIFF, BMP, GFR, AMM #### [address] [address] Beta 1.3 G/dL Normal 0.6-1.3 [facility] ([place]) Comment on above: Performed By: #### A UNRULY, VALPR, CBC, ADIFF, BMP, GFR, AMM #### [address] [address] Gamma 2.3 G/dL High 0.7-1.6 [facility] ([place]) Comment on above: Performed By: #### A UNRULY, VALPR, CBC, ADIFF, BMP, GFR, AMM #### [address] [address] UAon 08-06-2023 Color (U) Yellow Normal [facility] ([place]) Comment on above: Performed By: #### A UNRULY, VALPR, CBC, ADIFF, BMP, GFR, AMM #### [address] [address] Glucose (U) [Mass/Vol] Negative Normal Negative [facility] ([place]) Comment on above: Performed By: #### A UNRULY, VALPR, CBC, ADIFF, BMP, GFR, AMM #### [place] [id number] Ketones Ql (U) Trace Normal Neg-Trace [facility] ([place] Comment on above: Performed By: #### A UNRULY, VALPR, CBC, ADIFF, BMP, GFR, AMM #### [address] [address] UA Appear Clear Normal Clear [facility] ([place] Comment on above: Performed By: #### A UNRULY, VALPR, CBC, ADIFF, BMP, GFR, AMM #### [address] [address] UA Blood Negative Normal Neg-Trace [facility] ([place] Comment on above: Performed By: #### A UNRULY, VALPR, CBC, ADIFF, BMP, GFR, AMM #### [address] [address] UA Leuk Est Small Abnormal Negative [facility] ([place] Comment on above: Performed By: #### A UNRULY, VALPR, CBC, ADIFF, BMP, GFR, AMM #### [address] [address] UA Nitrite Negative Normal Negative [facility] ([place] Comment on above: Performed By: #### A UNRULY, VALPR, CBC, ADIFF, BMP, GFR, AMM #### [address] [address] UA pH 6.5 Normal 5.0 - 8.0 [facility] ([place]) Comment on above: Performed By: #### A UNRULY, VALPR, CBC, ADIFF, BMP, GFR, AMM #### [address] [address] UA Protein Negative Normal Negative [facility] ([place]) Comment on above: Performed By: #### A UNRULY, VALPR, CBC, ADIFF, BMP, GFR, AMM #### [address] [address] UA Spec Grav 1.020 Normal 1.006-1.029 [facility] ([place]) Comment on above: Performed By: #### A UNRULY, VALPR, CBC, ADIFF, BMP, GFR, AMM #### [place] [address] UA Specimen Type Clean Catch Normal [facility] ([place] Comment on above: Performed By: #### A UNRULY, VALPR, CBC, ADIFF, BMP, GFR, AMM #### [address] [address] UA Urobilinogen 1.0 E.U./dL Normal 0.2-1.0 [facility] ([place] Comment on above: Performed By: #### A UNRULY, VALPR, CBC, ADIFF, BMP, GFR, AMM #### [place] [address] Urobilinogen (U) [Mass/Vol] Negative Normal Neg-Trace [facility] ([place] Comment on above: Performed By: #### A UNRULY, VALPR, CBC, ADIFF, BMP, GFR, AMM #### [address] [address] UAMICon 08-06-2023 UA RBC Rare Normal 0-2 [facility] ([place] Comment on above: Performed By: #### A UNRULY, VALPR, CBC, ADIFF, BMP, GFR, AMM #### [address] [address] UA Squam Epithelial 0-2 Normal 0-20 [facility] ([place]) Comment on above: Performed By: #### A UNRULY, VALPR, CBC, ADIFF, BMP, GFR, AMM #### [facility] [address] [place] [address] UA Transitional Epithelial 3-5 Normal [facility] ([place] Comment on above: Performed By: #### A UNRULY, VALPR, CBC, ADIFF, BMP, GFR, AMM #### [facility] [address] [place] [address] UA WBC 3-5 Normal 0-5 [facility] ([place] Comment on above: Performed By: #### A UNRULY, VALPR, CBC, ADIFF, BMP, GFR, AMM #### [address] [address] XR CHEST 1 VIEWon 08-06-2023 XR CHEST [...] 08/06/2023 10:43:49 AM Ordering Provider: BRITT Castro [facility] ([place]) .Auto Diffon 04-22-2024 Basophil, Absolute 0.1 10 3/mcL Normal 0.0-0.3 [facility] ([place]) Comment on above: Performed By: #### A DIFF, GFR, OSMOS, CBC, BMP, ANEU ####[address] [address] Basophils/100 WBC (Bld) 0.3 % Normal 0.0-2.5 A [facility] ([place] Comment on above: Performed By: #### A DIFF, GFR, OSMOS, CBC, BMP, ANEU ####[address] [address] Eosinophil, Absolute 0.0 10 3/mcL Normal 0.0-0.7 [facility] ([place]) Comment on above: Performed By: #### A DIFF, GFR, OSMOS, CBC, BMP, ANEU ####[address] [address] Eosinophils/100 WBC (Bld) 0.1 % Normal 0.0-6.0 [facility] ([place] Comment on above: Performed By: #### A DIFF, GFR, OSMOS, CBC, BMP, ANEU ####[address] [address] Lymphocyte, Absolute 3.3 10 3/mcL Normal 0.9-4.3 [facility] ([place]) Comment on above: Performed By: #### A DIFF, GFR, OSMOS, CBC, BMP, ANEU ####[address] [address] Lymphocytes/100 WBC (Bld) 20.1 % Normal 20.0-40.0 [facility] ([place] Comment on above: Performed By: #### A DIFF, GFR, OSMOS, CBC, BMP, ANEU ####[address] [address] Monocyte, Absolute 2.2 10 3/mcL High 0.1-1.4 [facility] ([place] Comment on above: Performed By: #### A DIFF, GFR, OSMOS, CBC, BMP, ANEU ####[address] [address] Monocytes/100 WBC (Bld) 13.4 % High 2.0-13.0 A [facility] ([place] Comment on above: Performed By: #### A DIFF, GFR, OSMOS, CBC, BMP, ANEU ####[address] [address] Neutrophils/100 WBC (Bld) 66.1 % Normal 50.0-75.0 [facility] ([place] Comment on above: Performed By: #### A DIFF, GFR, OSMOS, CBC, BMP, ANEU ####[address] [address] .GFRon 08-05-2023 GFR >60 Normal [facility] ([place] Comment on above: Result Comment: GFR Population [...] A DIFF, GFR, OSMOS, CBC, BMP, ANEU ####[address] [address] GFR Non- >60 Normal [facility] ([place]) Comment on above: Result Comment: GFR Population [...] A DIFF, GFR, OSMOS, CBC, BMP, ANEU ####[place] [address] .NEUABSon 08-05-2023 Neutrophil, Absolute 11.0 10 3/mcL High 2.3-8.1 A [facility] ([place] Comment on above: Performed By: #### A DIFF, GFR, OSMOS, CBC, BMP, ANEU ####[place] [address] Gael 08-05-2023 Ammonia 21 mcmol/l Normal 11-32 [facility] ([place]) Comment on above: Performed By: #### A UNRULY, VALPR, CBC, ADIFF, BMP, GFR, AMM #### [place] [address] BMPon 08-05-2023 BUN/Creatinine Ratio 16.9 ratio Normal 10.0-22.0 [facility] ([place] Comment on above: Performed By: #### A DIFF, GFR, OSMOS, CBC, BMP, ANEU ####[place] [address] Calcium [Mass/Vol] 9.6 mg/dL Normal 8.7-10.4 [facility] ([place]) Comment on above: Performed By: #### A DIFF, GFR, OSMOS, CBC, BMP, ANEU ####[place] [address] Chloride [Moles/Vol] 99 mmol/L Normal 98-110 [facility] ([place] Comment on above: Performed By: #### A DIFF, GFR, OSMOS, CBC, BMP, ANEU ####[place] [address] CO2 [Moles/Vol] 24 mmol/L Normal 22-32 [facility] ([place] Comment on above: Performed By: #### A DIFF, GFR, OSMOS, CBC, BMP, ANEU ####[place] [address] Creatinine [Mass/Vol] 0.89 mg/dL Normal 0.50-1.20 [facility] ([place]) Comment on above: Performed By: #### A DIFF, GFR, OSMOS, CBC, BMP, ANEU ####[place] [address] Electrolyte Balance 8.0 mEq/L Normal 4.0-15.0 [facility] ([place]) Comment on above: Performed By: #### A DIFF, GFR, OSMOS, CBC, BMP, ANEU ####[place] [address] Glucose [Mass/Vol] 96 mg/dL Normal 82-115 [facility] ([place]) Comment on above: Performed By: #### A DIFF, GFR, OSMOS, CBC, BMP, ANEU ####[place] [address] Potassium [Moles/Vol] 4.1 mmol/L Normal 3.5-5.0 [facility] ([place]) Comment on above: Performed By: #### A DIFF, GFR, OSMOS, CBC, BMP, ANEU ####[place] [address] Sodium [Moles/Vol] 131 mmol/L Low 136-145 [facility] ([place]) Comment on above: Performed By: #### A DIFF, GFR, OSMOS, CBC, BMP, ANEU ####[place] [address] Urea nitrogen [Mass/Vol] 15.0 mg/dL Normal 8.0-22.0 [facility] ([place] Comment on above: Performed By: #### A DIFF, GFR, OSMOS, CBC, BMP, ANEU ####[address] [address] CBCon 08-05-2023 Erythrocyte distribution width (RBC) [Ratio] 15.1 % Normal 11.5-15.5 [facility] ([place] Comment on above: Performed By: #### A DIFF, GFR, OSMOS, CBC, BMP, ANEU ####[place] [address] Hematocrit (Bld) [Volume fraction] 31.6 % Low 34.0-46.0 [facility] ([place] Comment on above: Performed By: #### A DIFF, GFR, OSMOS, CBC, BMP, ANEU ####[place] [address] Hgb 10.7 G/dL Low 12.0-16.0 [facility] ([place] Comment on above: Performed By: #### A DIFF, GFR, OSMOS, CBC, BMP, ANEU ####[place] [address] MCH (RBC) [Entitic mass] 28.3 pg Normal 27.0-33.0 [facility] ([place] Comment on above: Performed By: #### A DIFF, GFR, OSMOS, CBC, BMP, ANEU ####[place] [address] MCHC 34.0 G/dL Normal 32.0-36.0 [facility] ([place] Comment on above: Performed By: #### A DIFF, GFR, OSMOS, CBC, BMP, ANEU ####[place] [address] MCV (RBC) [Entitic vol] 83.2 fL Normal 80.0-99.0 A [facility] ([place] Comment on above: Performed By: #### A DIFF, GFR, OSMOS, CBC, BMP, ANEU ####[place] [address] Platelet 252 10 3/mcL Normal 150-450 [facility] ([place] Comment on above: Performed By: #### A DIFF, GFR, OSMOS, CBC, BMP, ANEU ####[place] [address] Platelet mean volume (Bld) [Entitic vol] 8.4 fL Normal 6.6-10.5 [facility] ([place] Comment on above: Performed By: #### A DIFF, GFR, OSMOS, CBC, BMP, ANEU ####[place] [address] RBC 3.80 10 6/mcL Low 4.10-5.30 [facility] ([place] Comment on above: Performed By: #### A DIFF, GFR, OSMOS, CBC, BMP, ANEU ####[address] [address] WBC 16.6 10 3/mcL High 4.5-10.8 [facility] ([place] Comment on above: Performed By: #### A DIFF, GFR, OSMOS, CBC, BMP, ANEU ####[address] [address] LABORATORYOrdered By: SYSTEM SYSTEM on 08-05-2023 Ammonia (P) [Moles/Vol] 21 umol/L Normal 11 - 32 mcmol/L AH ADM SS LABORATORYOrdered By: Cheryl Almanzar on 08-05-2023 Osmolality [Osmolality] 275 mosm/kg Normal 275 - 300 mOsm/kg AH Manual Chem SS OSMOSon 08-05-2023 Osmolality [Osmolality] 275 mosm/kg Normal 275-300 [facility] ([place] Comment on above: Performed By: #### A DIFF, GFR, OSMOS, CBC, BMP, ANEU ####[address] [address] .Auto Diffon 08-04-2023 Basophil, Absolute 0.1 10 3/mcL Normal 0.0-0.2 [facility] ([place] Comment on above: Performed By: #### A UNRULY, VALPR, CBC, ADIFF, BMP, GFR, AMM #### [address] [address] Basophils/100 WBC (Bld) 0.4 % Normal 0.0-2.5 A [facility] ([place] Comment on above: Performed By: #### A UNRULY, VALPR, CBC, ADIFF, BMP, GFR, AMM #### [address] [address] Eosinophil, Absolute 0.0 10 3/mcL Normal 0.0-0.4 [facility] ([place] Comment on above: Performed By: #### A UNRULY, VALPR, CBC, ADIFF, BMP, GFR, AMM #### [address] [address] Eosinophils/100 WBC (Bld) 0.0 % Normal 0.0-7.0 [facility] ([place] Comment on above: Performed By: #### A UNRULY, VALPR, CBC, ADIFF, BMP, GFR, AMM #### [address] [address] Lymphocyte, Absolute 1.9 10 3/mcL Normal 0.8-3.9 [facility] ([place] Comment on above: Performed By: #### A UNRULY, VALPR, CBC, ADIFF, BMP, GFR, AMM #### [address] [address] Lymphocytes/100 WBC (Bld) 12.1 % Normal 10.0-50.0 [facility] ([place] Comment on above: Performed By: #### A UNRULY, VALPR, CBC, ADIFF, BMP, GFR, AMM #### [address] [address] Monocyte, Absolute 0.9 10 3/mcL Normal 0.2-1.0 [facility] ([place] Comment on above: Performed By: #### A UNRULY, VALPR, CBC, ADIFF, BMP, GFR, AMM #### [address] [address] Monocytes/100 WBC (Bld) 5.6 % Normal 1.7-13.0 A [facility] ([place] Comment on above: Performed By: #### A UNRULY, VALPR, CBC, ADIFF, BMP, GFR, AMM #### [address] [address] Neutrophils/100 WBC (Bld) 81.9 % High 37.0-80.0 [facility] ([place] Comment on above: Performed By: #### A UNRULY, VALPR, CBC, ADIFF, BMP, GFR, AMM #### [address] [address] .GFRon 08-04-2023 GFR 58 ml/min/1.73sqm Normal [facility] ([place] Comment on above: Result Comment: GFR Population [...] VALPR, CBC, ADIFF, BMP, GFR, AMM #### [address] [address] GFR Non- 48 ml/min/1.73sqm Normal [facility] ([place] Comment on above: Result Comment: GFR Population [...] VALPR, CBC, ADIFF, BMP, GFR, AMM #### [address] [address] .MDWon 08-04-2023 Monocyte Distribution Width 16.15 Normal 0.00-20.00 [facility] ([place] Comment on above: Result Comment: For ED adult patients suspected of sepsis, MDW<=20.0 does not rule out sepsis or risk of sepsis Performed By: #### A UNRULY, VALPR, CBC, ADIFF, BMP, GFR, AMM #### [address] [address] .NEUABSon 08-04-2023 Neutrophil, Absolute 12.9 10 3/mcL High 2.9-6.2 A [facility] ([place] Comment on above: Performed By: #### A UNRULY, VALPR, CBC, ADIFF, BMP, GFR, AMM #### [address] [address] APTTon 08-04-2023 aPTT Coag (Bld) [Time] 28.3 s Normal 25.0-35.0 [facility] ([place]) Comment on above: Result Comment: For Heparin anticoagulation therapy, the recommended therapeutic range is: 50.6-87.4 seconds. Patients on heparin therapy may have an extreme result. Performed By: #### A UNRULY, VALPR, CBC, ADIFF, BMP, GFR, AMM #### [address] [address] Heparin dose (APTT) Unknown Normal [facility] ([place] Comment on above: Performed By: #### A UNRULY, VALPR, CBC, ADIFF, BMP, GFR, AMM #### [address] [address] BD BONE DENSITY DEXA AXIAL S KELETONon [...] 12:37:50 PM Ordering Provider: FISH JORDAN Normal [facility] ([place]) BMPon 08-04-2023 BUN/Creatinine Ratio 14 ratio Normal 7-27 [facility]) Comment on above: Performed By: #### A UNRULY, VALPR, CBC, ADIFF, BMP, GFR, AMM #### [address] [address] Calcium [Mass/Vol] 8.6 mg/dL Normal 8.4-10.2 [facility] ([place]) Comment on above: Performed By: #### A UNRULY, VALPR, CBC, ADIFF, BMP, GFR, AMM #### [address] [address] Chloride [Moles/Vol] 94 mmol/L Low 98-107 [facility] ([place] Comment on above: Performed By: #### A UNRULY, VALPR, CBC, ADIFF, BMP, GFR, AMM #### [address] [address] CO2 [Moles/Vol] 23 mmol/L Normal 23-31 [facility] ([place] Comment on above: Performed By: #### A UNRULY, VALPR, CBC, ADIFF, BMP, GFR, AMM #### [address] [address] Creatinine [Mass/Vol] 1.14 mg/dL High 0.55-1.02 [facility] ([place] Comment on above: Performed By: #### A UNRULY, VALPR, CBC, ADIFF, BMP, GFR, AMM #### [address] [address] Electrolyte Balance 13.0 mEq/L Normal 4.0-15.0 [facility] ([place] Comment on above: Performed By: #### A UNRULY, VALPR, CBC, ADIFF, BMP, GFR, AMM #### [address] [address] Glucose [Mass/Vol] 134 mg/dL High 80-115 [facility] ([place]) Comment on above: Performed By: #### A UNRULY, VALPR, CBC, ADIFF, BMP, GFR, AMM #### [address] [address] Potassium [Moles/Vol] 4.3 mmol/L Normal 3.5-5.1 [facility] ([place] Comment on above: Performed By: #### A UNRULY, VALPR, CBC, ADIFF, BMP, GFR, AMM #### [place] [id number] Sodium [Moles/Vol] 130 mmol/L Low 136-145 [facility] ([place]) Comment on above: Performed By: #### A UNRULY, VALPR, CBC, ADIFF, BMP, GFR, AMM #### [place] [id number] Urea nitrogen [Mass/Vol] 16 mg/dL Normal 7-18 [facility] ([place] Comment on above: Performed By: #### A UNRULY, VALPR, CBC, ADIFF, BMP, GFR, AMM #### [address] [address] CBCon 08-04-2023 Erythrocyte distribution width (RBC) [Ratio] 15.1 % High 11.5-14.5 [facility] ([place] Comment on above: Performed By: #### A UNRULY, VALPR, CBC, ADIFF, BMP, GFR, AMM #### [address] [address] Hematocrit (Bld) [Volume fraction] 32.3 % Low 37.0-47.0 [facility] ([place] Comment on above: Performed By: #### A UNRULY, VALPR, CBC, ADIFF, BMP, GFR, AMM #### [place] [address] Hgb 11.1 G/dL Low 12.0-16.0 [facility] ([place] Comment on above: Performed By: #### A UNRULY, VALPR, CBC, ADIFF, BMP, GFR, AMM #### [place] [address] MCH (RBC) [Entitic mass] 28.2 pg Normal 27.0-31.2 [facility] ([place] Comment on above: Performed By: #### A UNRULY, VALPR, CBC, ADIFF, BMP, GFR, AMM #### [place] [address] MCHC 34.4 G/dL Normal 33.0-37.0 [facility] ([place] Comment on above: Performed By: #### A UNRULY, VALPR, CBC, ADIFF, BMP, GFR, AMM #### [place] [address] MCV (RBC) [Entitic vol] 82.1 fL Normal 80.0-94.0 A [facility] ([place] Comment on above: Performed By: #### A UNRULY, VALPR, CBC, ADIFF, BMP, GFR, AMM #### [place] [address] Platelet 243 10 3/mcL Normal 130-400 [facility] ([place] Comment on above: Performed By: #### A UNRULY, VALPR, CBC, ADIFF, BMP, GFR, AMM #### [place] [address] Platelet mean volume (Bld) [Entitic vol] 7.0 fL Low 7.4-10.4 [facility] ([place] Comment on above: Performed By: #### A UNRULY, VALPR, CBC, ADIFF, BMP, GFR, AMM #### [place] [address] RBC 3.93 10 6/mcL Low 4.20-5.40 [facility] ([place] Comment on above: Performed By: #### A UNRULY, VALPR, CBC, ADIFF, BMP, GFR, AMM #### [place] [id number] [place] [address] WBC 15.8 10 3/mcL High 4.6-10.8 [facility] ([place] Comment on above: Performed By: #### A UNRULY, VALPR, CBC, ADIFF, BMP, GFR, AMM #### [place] [id number] [place] [address] ANGIOGRAPHY HEAD W/ CONTR Felipe 08-04-2023 [...] 08/04/2023 3:33:32 PM Ordering Provider: AIDEN Castro [facility] ([place] CT ANGIOGRAPHY NECK W/CONTRA Isamarn 08-04-2023 CT ANGIOGRAPHY NECK W/CONTRAST ORIGINAL EXAMINATION: [...] Date: 08/04/2023 3:24:32 PM Ordering Provider: AIDEN [facility] ([place] CT HEAD OR BRAIN W/O DUANE Lozano [...] Date: 08/04/2023 2:10:24 PM Ordering Provider: [facility] LABORATORYOrdered By: Sayda Odonnell on 08-04-2023 aPTT [...] ng/L Male: 0-76 ng/L Testing performed on [employer] using a homogeneous sandwich chemiluminescent immunoassay based on [employer] technology. Urea nitrogen [Mass/Vol] 16 mg/dL Normal [...] 110 mg/dL Normal 82 - 115 mg/dL [facility] 08-04-2023 High Sensitivity Troponin I 16 ng/L Normal 0-51 [facility] ([place] Comment on above: Result Comment: High Sensitive Troponin I Reference Ranges: Female: 0-51 ng/L Male: 0-76 ng/L Testing performed on [employer] EX using a homogeneous sandwich chemiluminescent immunoassay based on [employer] technology. Performed By: #### A UNRULY, VALPR, CBC, ADIFF, BMP, GFR, AMM #### [place] [id number] VALPRon 08-04-2023 LDose Valproic Acid: See eMAR [facility] ([place] Comment on above: Performed By: #### A UNRULY, VALPR, CBC, ADIFF, BMP, GFR, AMM #### [place] [address] Valproic Acid Lvl 84 mcg/mL Normal 50-100 [facility] ([place] Comment on above: Performed By: #### A UNRULY, VALPR, CBC, ADIFF, BMP, GFR, AMM #### [place] [id number] XR CHEST 1 VIEWon 08-04-2023 XR CHEST [...] 08/04/2023 3:19:38 PM Ordering Provider: AIDEN MARQUEZ [facility] ([place]) .Auto Diffon 08-02-2023 Basophil, Absolute 0.1 10 3/mcL Normal 0.0-0.2 [facility] ([place] Comment on above: Performed By: #### A UNRULY, VALPR, CBC, ADIFF, BMP, GFR, AMM #### [address] [address] Basophils/100 WBC (Bld) 0.6 % Normal 0.0-2.5 A [facility] ([place] Comment on above: Performed By: #### A UNRULY, VALPR, CBC, ADIFF, BMP, GFR, AMM #### [address] [address] Eosinophil, Absolute 0.2 10 3/mcL Normal 0.0-0.4 [facility] ([place] Comment on above: Performed By: #### A UNRULY, VALPR, CBC, ADIFF, BMP, GFR, AMM #### [address] [address] Eosinophils/100 WBC (Bld) 1.8 % Normal 0.0-7.0 [facility] ([place] Comment on above: Performed By: #### A UNRULY, VALPR, CBC, ADIFF, BMP, GFR, AMM #### [address] [address] Lymphocyte, Absolute 3.8 10 3/mcL Normal 0.8-3.9 [facility] ([place] Comment on above: Performed By: #### A UNRULY, VALPR, CBC, ADIFF, BMP, GFR, AMM #### [address] [address] Lymphocytes/100 WBC (Bld) 33.5 % Normal 10.0-50.0 [facility] ([place] Comment on above: Performed By: #### A UNRULY, VALPR, CBC, ADIFF, BMP, GFR, AMM #### [address] [address] Monocyte, Absolute 1.6 10 3/mcL High 0.2-1.0 [facility] ([place] Comment on above: Performed By: #### A UNRULY, VALPR, CBC, ADIFF, BMP, GFR, AMM #### [address] [address] Monocytes/100 WBC (Bld) 13.7 % High 1.7-13.0 A [facility] ([place]) Comment on above: Performed By: #### A UNRULY, VALPR, CBC, ADIFF, BMP, GFR, AMM #### [address] [address] Neutrophils/100 WBC (Bld) 50.4 % Normal 37.0-80.0 [facility] ([place]) Comment on above: Performed By: #### A UNRULY, VALPR, CBC, ADIFF, BMP, GFR, AMM #### [address] [address] .GFRon 08-02-2023 GFR Non- 48 ml/min/1.73sqm Normal [facility] ([place]) Comment on above: Result Comment: GFR Population [...] VALPR, CBC, ADIFF, BMP, GFR, AMM #### [address] [address] GFR 58 ml/min/1.73sqm Normal [facility] ([place]) Comment on above: Result Comment: GFR Population [...] VALPR, CBC, ADIFF, BMP, GFR, AMM #### [place] [address] .NEUABSon 08-02-2023 Neutrophil, Absolute 5.7 10 3/mcL Normal 2.9-6.2 [facility] ([place]) Comment on above: Performed By: #### A UNRULY, VALPR, CBC, ADIFF, BMP, GFR, AMM #### [place] [address] .Urinalysis Microscopic (AO) on 08-02-2023 UA RBC None Seen Normal None Seen [facility] ([place]) Comment on above: Performed By: #### A UNRULY, VALPR, CBC, ADIFF, BMP, GFR, AMM #### [place] [address] UA Squam Epithelial None Seen Normal None Seen [facility] ([place]) Comment on above: Performed By: #### A UNRULY, VALPR, CBC, ADIFF, BMP, GFR, AMM #### [place] [address] UA WBC 0-5 Abnormal None Seen [facility] [facility] [place] Comment on above: Performed By: #### A UNRULY, VALPR, CBC, ADIFF, BMP, GFR, AMM #### [place] [address] [id number] 08-02-2023 Complement C3A 164.0 mg/dL Normal 90.0-170.0 [facility] ([place]) Comment on above: Result Comment: No te - New Reference Range in effect 19 Performed By: #### A UNRULY, VALPR, CBC, ADIFF, BMP, GFR, AMM #### [place] [address] Complement C4A 26.0 mg/dL Normal 16.0-38.0 [facility] ([place] Comment on above: Performed By: #### A UNRULY, VALPR, CBC, ADIFF, BMP, GFR, AMM #### [place] [id number] CBCon 08-02-2023 Erythrocyte distribution width (RBC) [Ratio] 15.2 % High 11.5-14.5 [facility] ([place] Comment on above: Performed By: #### A UNRULY, VALPR, CBC, ADIFF, BMP, GFR, AMM #### [place] [address] Hematocrit (Bld) [Volume fraction] 34.6 % Low 37.0-47.0 [facility] ([place] Comment on above: Performed By: #### A UNRULY, VALPR, CBC, ADIFF, BMP, GFR, AMM #### [place] [address] Hgb 11.8 G/dL Low 12.0-16.0 [facility] ([place] Comment on above: Performed By: #### A UNRULY, VALPR, CBC, ADIFF, BMP, GFR, AMM #### [place] [address] MCH (RBC) [Entitic mass] 28.3 pg Normal 27.0-31.2 [facility] ([place] Comment on above: Performed By: #### A UNRULY, VALPR, CBC, ADIFF, BMP, GFR, AMM #### [place] [address] MCHC 34.2 G/dL Normal 33.0-37.0 [facility] ([place] Comment on above: Performed By: #### A UNRULY, VALPR, CBC, ADIFF, BMP, GFR, AMM #### [place] [address] MCV (RBC) [Entitic vol] 82.8 fL Normal 80.0-94.0 A [facility] ([place] Comment on above: Performed By: #### A UNRULY, VALPR, CBC, ADIFF, BMP, GFR, AMM #### [place] [id number] Platelet 255 10 3/mcL Normal 130-400 [facility] ([place] Comment on above: Performed By: #### A UNRULY, VALPR, CBC, ADIFF, BMP, GFR, AMM #### [place] [address] Platelet mean volume (Bld) [Entitic vol] 7.5 fL Normal 7.4-10.4 [facility] ([place] Comment on above: Performed By: #### A UNRULY, VALPR, CBC, ADIFF, BMP, GFR, AMM #### [place] [address] RBC 4.17 10 6/mcL Low 4.20-5.40 [facility] ([place] Comment on above: Performed By: #### A UNRULY, VALPR, CBC, ADIFF, BMP, GFR, AMM #### [place] [address] WBC 11.4 10 3/mcL High 4.6-10.8 [facility] ([place] Comment on above: Performed By: #### A UNRULY, VALPR, CBC, ADIFF, BMP, GFR, AMM #### [place] [address] FEon 08-02-2023 Iron [Mass/Vol] 63 ug/dL Normal 50-170 [facility] ([place] Comment on above: Performed By: #### A UNRULY, VALPR, CBC, ADIFF, BMP, GFR, AMM #### [place] [address] Lety 08-02-2023 Ferritin [Mass/Vol] 57.0 ng/mL Normal 8.0-252.0 [facility] ([place] Comment on above: Performed By: #### A UNRULY, VALPR, CBC, ADIFF, BMP, GFR, AMM #### [place] [address] FESon 08-02-2023 Iron Sat 14 % Normal [facility] ([place] Comment on above: Performed By: #### A UNRULY, VALPR, CBC, ADIFF, BMP, GFR, AMM #### [place] [id number] [place] [address] TIBC 453 mcg/dL High 250-450 [facility] ([place] Comment on above: Performed By: #### A UNRULY, VALPR, CBC, ADIFF, BMP, GFR, AMM #### [facility] [address] [place] [address] LABORATORYOrdered By: Brigitte Tovar on 08-02-2023 Appearance [...] 08-02-2023 PTH, Intact 89.7 pg/mL High 18.5-88.0 [facility] ([place] Comment on above: Performed By: #### A UNRULY, VALPR, CBC, ADIFF, BMP, GFR, AMM #### [address] [address] RFPon 08-02-2023 Albumin Level 3.4 G/dL Normal 3.4-4.8 [facility] ([place] Comment on above: Performed By: #### A UNRULY, VALPR, CBC, ADIFF, BMP, GFR, AMM #### [address] [address] BUN/Creatinine Ratio 15 ratio Normal 7-27 [facility] ([place] Comment on above: Performed By: #### A UNRULY, VALPR, CBC, ADIFF, BMP, GFR, AMM #### [address] [address] Calcium [Mass/Vol] 10.3 mg/dL High 8.4-10.2 [facility] ([place]) Comment on above: Performed By: #### A UNRULY, VALPR, CBC, ADIFF, BMP, GFR, AMM #### [address] [address] Chloride [Moles/Vol] 100 mmol/L Normal 98-107 [facility] ([place] Comment on above: Performed By: #### A UNRULY, VALPR, CBC, ADIFF, BMP, GFR, AMM #### [address] [address] CO2 [Moles/Vol] 25 mmol/L Normal 23-31 [facility] ([place] Comment on above: Performed By: #### A UNRULY, VALPR, CBC, ADIFF, BMP, GFR, AMM #### [address] [address] Creatinine [Mass/Vol] 1.14 mg/dL High 0.55-1.02 [facility] ([place] Comment on above: Performed By: #### A UNRULY, VALPR, CBC, ADIFF, BMP, GFR, AMM #### [address] [address] Electrolyte Balance 12.0 mEq/L Normal 4.0-15.0 [facility] ([place] Comment on above: Performed By: #### A UNRULY, VALPR, CBC, ADIFF, BMP, GFR, AMM #### [address] [address] Glucose [Mass/Vol] 90 mg/dL Normal 80-115 [facility] ([place] Comment on above: Performed By: #### A UNRULY, VALPR, CBC, ADIFF, BMP, GFR, AMM #### [address] [address] Phosphate [Mass/Vol] 3.4 mg/dL Normal 2.3-4.1 [facility] ([place] Comment on above: Performed By: #### A UNRULY, VALPR, CBC, ADIFF, BMP, GFR, AMM #### [address] [address] Potassium [Moles/Vol] 5.0 mmol/L Normal 3.5-5.1 [facility] ([place] Comment on above: Performed By: #### A UNRULY, VALPR, CBC, ADIFF, BMP, GFR, AMM #### [address] [address] Sodium [Moles/Vol] 137 mmol/L Normal 136-145 [facility] ([place] Comment on above: Performed By: #### A UNRULY, VALPR, CBC, ADIFF, BMP, GFR, AMM #### [address] [address] Urea nitrogen [Mass/Vol] 17 mg/dL Normal 7-18 [facility] ([place] Comment on above: Performed By: #### A UNRULY, VALPR, CBC, ADIFF, BMP, GFR, AMM #### [address] [address] RPCURon 08-02-2023 U Creatinine 69.1 mg/dL Normal 28.0-117.0 [facility] ([place] Comment on above: Performed By: #### A UNRULY, VALPR, CBC, ADIFF, BMP, GFR, AMM #### [place] [address] U Protein 9 mg/dL Normal 0-11 [facility] ([place] Comment on above: Performed By: #### A UNRULY, VALPR, CBC, ADIFF, BMP, GFR, AMM #### [place] [address] U Ratio Prot/Creat 0.1 ratio Normal [facility] ([place]) Comment on above: Result Comment: resu lt calculated by rule [id number] (U Protein/U Creatinine) Performed By: #### A UNRULY, VALPR, CBC, ADIFF, BMP, GFR, AMM #### [place] [id number] SPEon 08-02-2023 Total Protein 8.4 G/dL High 5.7-8.2 [facility] ([place]) Comment on above: Result Comment: No te - New Reference Range in effect 19 Performed By: #### A UNRULY, VALPR, CBC, ADIFF, BMP, GFR, AMM #### [address] [address] UAon 08-02-2023 Color (U) Yellow Normal [facility] ([place] Comment on above: Performed By: #### A UNRULY, VALPR, CBC, ADIFF, BMP, GFR, AMM #### [address] [address] Glucose (U) [Mass/Vol] Negative Normal Negative [facility] ([place] Comment on above: Performed By: #### A UNRULY, VALPR, CBC, ADIFF, BMP, GFR, AMM #### [address] [address] Ketones Ql (U) Negative Normal Negative [facility] ([place] Comment on above: Performed By: #### A UNRULY, VALPR, CBC, ADIFF, BMP, GFR, AMM #### [address] [address] UA Appear Clear Normal Clear [facility] ([place] Comment on above: Performed By: #### A UNRULY, VALPR, CBC, ADIFF, BMP, GFR, AMM #### [address] [address] UA Blood Negative Normal Negative [facility] ([place] Comment on above: Performed By: #### A UNRULY, VALPR, CBC, ADIFF, BMP, GFR, AMM #### [address] [address] UA Leuk Est Trace Abnormal Negative [facility] ([place] Comment on above: Performed By: #### A UNRULY, VALPR, CBC, ADIFF, BMP, GFR, AMM #### [address] [address] UA Nitrite Negative Normal Negative [facility] ([place] Comment on above: Performed By: #### A UNRULY, VALPR, CBC, ADIFF, BMP, GFR, AMM #### [address] [address] UA pH 7.0 Normal 5.0 - 8.0 [facility] ([place] Comment on above: Performed By: #### A UNRULY, VALPR, CBC, ADIFF, BMP, GFR, AMM #### [address] [address] UA Protein Negative Normal Negative [facility] ([place] Comment on above: Performed By: #### A UNRULY, VALPR, CBC, ADIFF, BMP, GFR, AMM #### [address] [address] UA Spec Grav 1.020 Normal 1.015-1.025 [facility] ([place] Comment on above: Performed By: #### A UNRULY, VALPR, CBC, ADIFF, BMP, GFR, AMM #### [place] [address] UA Specimen Type Clean Catch Normal [facility] ([place] Comment on above: Performed By: #### A UNRULY, VALPR, CBC, ADIFF, BMP, GFR, AMM #### [place] [address] UA Urobilinogen 0.2 E.U./dL Normal 0.2-1.0 [facility] ([place] Comment on above: Performed By: #### A UNRULY, VALPR, CBC, ADIFF, BMP, GFR, AMM #### [place] [address] Urobilinogen (U) [Mass/Vol] Negative Normal Negative [facility] ([place] Comment on above: Performed By: #### A UNRULY, VALPR, CBC, ADIFF, BMP, GFR, AMM #### [place] [address] URICon 08-02-2023 Uric Acid Lvl 8.6 mg/dL High 2.6-6.2 [facility] ([place] Comment on above: Performed By: #### A UNRULY, VALPR, CBC, ADIFF, BMP, GFR, AMM #### [place] [address] VIDHon 08-02-2023 Vit. D 25-Hydroxy 92.5 ng/mL Normal [facility] ([place] Comment on above: Result Comment: Inte rpretive Values Based on Total 25(OH) Vitamin D: Deficient <20 ng/mL Insufficient 20 - <30 ng/mL Sufficient 30-100 ng/mL Performed By: #### A UNRULY, VALPR, CBC, ADIFF, BMP, GFR, AMM #### [place] [address] KEPPRAon 06-21-2023 Levetiracetam Lvl 102.0 Normal [facility] ([place] Comment on above: Order Comment: WRONG ENCOUNTER DONT CANCEL Performed By: #### A UNRULY, VALPR, CBC, ADIFF, BMP, GFR, AMM #### [address] [address] RENINon 06-21-2023 Renin Activity 30.750 Normal [facility] ([place] Comment on above: Order Comment: WRONG ENCOUNTER DONT CANCEL Performed By: #### A UNRULY, VALPR, CBC, ADIFF, BMP, GFR, AMM #### [address] [address] LABORATORYOrdered By: Jasmyne Cintron on 06-20-2023 Albumin DL <= 20 mg/L (U) [Mass/Vol] 680 mcg/dL Invalid Interpretation Code AO ADM SS Albumin/Creatinine DL <= 20 mg/L (U) [Mass ratio] 16 mcg/mg Normal 0 - 30 mcg/mg AO ADM SS Creatinine (U) [Mass/Vol] 41.7 mg/dL Normal 28.0 - 117.0 mg/dL AO ADM SS MALBRon 06-20-2023 U Creatinine 41.7 mg/dL Normal 28.0-117.0 [facility] ([place] Comment on above: Performed By: #### A UNRULY, VALPR, CBC, ADIFF, BMP, GFR, AMM #### [address] [address] U Microalb 680 mcg/dL Normal [facility] ([place] Comment on above: Performed By: #### A UNRULY, VALPR, CBC, ADIFF, BMP, GFR, AMM #### [address] [address] U Ratio Alb/Cre 16 mcg/mg Normal 0-30 [facility] ([place] Comment on above: Performed By: #### A UNRULY, VALPR, CBC, ADIFF, BMP, GFR, AMM #### [address] [address] KEPPRAon 06-17-2023 Levetiracetam Lvl Not performed Normal [facility] ([place] Comment on above: Result Comment: Test not performed. Test cancelled by Healthcare provider after order was submitted to [facility]. Contacted by Viji Carrero at your facility 06.17.2023 Performed At: [facility] [address] [id number] Yan Sanchez MD Ph:[phone] Performed By: #### A UNRULY, VALPR, CBC, ADIFF, BMP, GFR, AMM #### [address] [address] .Auto Diffon 06-15-2023 Basophil, Absolute 0.0 10 3/mcL Normal 0.0-0.2 [facility] ([place] Comment on above: Performed By: #### A UNRULY, VALPR, CBC, ADIFF, BMP, GFR, AMM #### [address] [address] Basophils/100 WBC (Bld) 0.4 % Normal 0.0-2.5 A [facility] ([place] Comment on above: Performed By: #### A UNRULY, VALPR, CBC, ADIFF, BMP, GFR, AMM #### [address] [address] Eosinophil, Absolute 0.2 10 3/mcL Normal 0.0-0.4 [facility] ([place]) Comment on above: Performed By: #### A UNRULY, VALPR, CBC, ADIFF, BMP, GFR, AMM #### [address] [address] Eosinophils/100 WBC (Bld) 1.6 % Normal 0.0-7.0 [facility] ([place] Comment on above: Performed By: #### A UNRULY, VALPR, CBC, ADIFF, BMP, GFR, AMM #### [address] [address] Lymphocyte, Absolute 3.1 10 3/mcL Normal 0.8-3.9 [facility] ([place]) Comment on above: Performed By: #### A UNRULY, VALPR, CBC, ADIFF, BMP, GFR, AMM #### [address] [address] Lymphocytes/100 WBC (Bld) 27.5 % Normal 10.0-50.0 [facility] ([place] Comment on above: Performed By: #### A UNRULY, VALPR, CBC, ADIFF, BMP, GFR, AMM #### [address] [address] Monocyte, Absolute 1.0 10 3/mcL Normal 0.2-1.0 [facility] [place] Comment on above: Performed By: #### A UNRULY, VALPR, CBC, ADIFF, BMP, GFR, AMM #### [address] [address] Monocytes/100 WBC (Bld) 8.8 % Normal 1.7-13.0 A [facility] [place] Comment on above: Performed By: #### A UNRULY, VALPR, CBC, ADIFF, BMP, GFR, AMM #### [address] [address] Neutrophils/100 WBC (Bld) 61.7 % Normal 37.0-80.0 [facility] ([place] Comment on above: Performed By: #### A UNRULY, VALPR, CBC, ADIFF, BMP, GFR, AMM #### [address] [address] .GFRon 06-15-2023 GFR Non- 42 ml/min/1.73sqm Normal [facility] ([place] Comment on above: Result Comment: GFR Population [...] VALPR, CBC, ADIFF, BMP, GFR, AMM #### [address] [address] GFR 51 ml/min/1.73sqm Normal [facility] ([place] Comment on above: Result Comment: GFR Population [...] VALPR, CBC, ADIFF, BMP, GFR, AMM #### [address] [address] .NEUABSon 06-15-2023 Neutrophil, Absolute 6.9 10 3/mcL High 2.9-6.2 [facility] ([place] Comment on above: Performed By: #### A UNRULY, VALPR, CBC, ADIFF, BMP, GFR, AMM #### [address] [address] A1Con 06-15-2023 HbA1c (Bld) [Mass fraction] 5.6 % Normal 4.3-6.4 [facility] ([place] Comment on above: Performed By: #### A UNRULY, VALPR, CBC, ADIFF, BMP, GFR, AMM #### [address] [address] CBCon 06-15-2023 Erythrocyte distribution width (RBC) [Ratio] 14.9 % High 11.5-14.5 [facility] ([place] Comment on above: Performed By: #### A UNRULY, VALPR, CBC, ADIFF, BMP, GFR, AMM #### [address] [address] Hematocrit (Bld) [Volume fraction] 34.8 % Low 37.0-47.0 [facility] [place] Comment on above: Performed By: #### A UNRULY, VALPR, CBC, ADIFF, BMP, GFR, AMM #### [place] [address] Hgb 11.7 G/dL Low 12.0-16.0 [facility] ([place] Comment on above: Performed By: #### A UNRULY, VALPR, CBC, ADIFF, BMP, GFR, AMM #### [place] [address] MCH (RBC) [Entitic mass] 28.3 pg Normal 27.0-31.2 [facility] [place] Comment on above: Performed By: #### A UNRULY, VALPR, CBC, ADIFF, BMP, GFR, AMM #### [place] [address] MCHC 33.6 G/dL Normal 33.0-37.0 [facility] ([place] Comment on above: Performed By: #### A UNRULY, VALPR, CBC, ADIFF, BMP, GFR, AMM #### [place] [address] MCV (RBC) [Entitic vol] 84.3 fL Normal 80.0-94.0 A [facility] [place] Comment on above: Performed By: #### A UNRULY, VALPR, CBC, ADIFF, BMP, GFR, AMM #### [place] [address] Platelet 290 10 3/mcL Normal 130-400 [facility] [place] Comment on above: Performed By: #### A UNRULY, VALPR, CBC, ADIFF, BMP, GFR, AMM #### [place] [address] Platelet mean volume (Bld) [Entitic vol] 8.7 fL Normal 7.4-10.4 [facility] [place] Comment on above: Performed By: #### A UNRULY, VALPR, CBC, ADIFF, BMP, GFR, AMM #### [place] [address] RBC 4.13 10 6/mcL Low 4.20-5.40 [facility] ([place] Comment on above: Performed By: #### A UNRULY, VALPR, CBC, ADIFF, BMP, GFR, AMM #### [address] [address] WBC 11.2 10 3/mcL High 4.6-10.8 [facility] ([place] Comment on above: Performed By: #### A UNRULY, VALPR, CBC, ADIFF, BMP, GFR, AMM #### [address] [address] CMPon 06-15-2023 Albumin Level 3.1 G/dL Low 3.4-4.8 [facility] ([place] Comment on above: Performed By: #### A UNRULY, VALPR, CBC, ADIFF, BMP, GFR, AMM #### [address] [address] Albumin/Globulin [Mass ratio] 0.7 {ratio} Low 1.1-2.5 [facility] ([place] Comment on above: Performed By: #### A UNRULY, VALPR, CBC, ADIFF, BMP, GFR, AMM #### [address] [address] ALP [Catalytic activity/Vol] 70 U/L Normal 40-135 [facility] ([place] Comment on above: Performed By: #### A UNRULY, VALPR, CBC, ADIFF, BMP, GFR, AMM #### [address] [address] ALT [Catalytic activity/Vol] 30 U/L Normal 14-59 [facility] ([place] Comment on above: Performed By: #### A UNRULY, VALPR, CBC, ADIFF, BMP, GFR, AMM #### [address] [address] AST [Catalytic activity/Vol] 31 U/L Normal 10-40 [facility] ([place] Comment on above: Performed By: #### A UNRULY, VALPR, CBC, ADIFF, BMP, GFR, AMM #### [address] [address] Bili Total 0.2 mg/dL Normal 0.2-1.0 [facility] ([place] Comment on above: Result Comment: Use of this assay is not recommended for patients undergoing treatment with eltrombopag due to the potential for falsely elevated results. Performed By: #### A UNRULY, VALPR, CBC, ADIFF, BMP, GFR, AMM #### [place] [address] BUN/Creatinine Ratio 17 ratio Normal 7-27 [facility] [place] Comment on above: Performed By: #### A UNRULY, VALPR, CBC, ADIFF, BMP, GFR, AMM #### [place] [address] Calcium [Mass/Vol] 10.1 mg/dL Normal 8.4-10.2 [facility] ([place] Comment on above: Performed By: #### A UNRULY, VALPR, CBC, ADIFF, BMP, GFR, AMM #### [place] [id number] Chloride [Moles/Vol] 99 mmol/L Normal 98-107 [facility] ([place] Comment on above: Performed By: #### A UNRULY, VALPR, CBC, ADIFF, BMP, GFR, AMM #### [place] [id number] CO2 [Moles/Vol] 24 mmol/L Normal 23-31 [facility] ([place] Comment on above: Performed By: #### A UNRULY, VALPR, CBC, ADIFF, BMP, GFR, AMM #### [place] [id number] Creatinine [Mass/Vol] 1.28 mg/dL High 0.55-1.02 [facility] ([place] Comment on above: Performed By: #### A UNRULY, VALPR, CBC, ADIFF, BMP, GFR, AMM #### [place] [id number] Electrolyte Balance 14.0 mEq/L Normal 4.0-15.0 [facility] [place] Comment on above: Performed By: #### A UNRULY, VALPR, CBC, ADIFF, BMP, GFR, AMM #### [place] [id number] Globulin 4.7 G/dL Normal [facility] ([place] Comment on above: Performed By: #### A UNRULY, VALPR, CBC, ADIFF, BMP, GFR, AMM #### [address] [address] Glucose [Mass/Vol] 167 mg/dL High 80-115 [facility] ([place] Comment on above: Performed By: #### A NURULY, VALPR, CBC, ADIFF, BMP, GFR, AMM #### [address] [address] Potassium [Moles/Vol] 3.6 mmol/L Normal 3.5-5.1 [facility] ([place] Comment on above: Performed By: #### A UNRULY, VALPR, CBC, ADIFF, BMP, GFR, AMM #### [address] [address] Sodium [Moles/Vol] 137 mmol/L Normal 136-145 [facility] ([place] Comment on above: Performed By: #### A UNRULY, VALPR, CBC, ADIFF, BMP, GFR, AMM #### [address] [address] Total Protein 7.8 G/dL Normal 6.4-8.2 [facility] ([place] Comment on above: Performed By: #### A UNRULY, VALPR, CBC, ADIFF, BMP, GFR, AMM #### [address] [address] Urea nitrogen [Mass/Vol] 22 mg/dL High 7-18 [facility] [place] Comment on above: Performed By: #### A UNRULY, VALPR, CBC, ADIFF, BMP, GFR, AMM #### [address] [address] LIPIDon 06-15-2023 Cholesterol [Mass/Vol] 122 mg/dL Normal 0-200 [facility] [place] Comment on above: Result Comment: Chol esterol Reference Interval: Less than 200 Desirable 200-239 Borderline high risk 240 and above High risk Performed By: #### A UNRULY, VALPR, CBC, ADIFF, BMP, GFR, AMM #### [place] [address] Cholesterol in HDL [Mass/Vol] 37 mg/dL Low 40-60 [facility] [place] Comment on above: Performed By: #### A UNRULY, VALPR, CBC, ADIFF, BMP, GFR, AMM #### [place] [address] Cholesterol in LDL [Mass/Vol] 31 mg/dL Normal 0-130 [facility] [place] Comment on above: Performed By: #### A UNRULY, VALPR, CBC, ADIFF, BMP, GFR, AMM #### [place] [address] Triglyceride [Mass/Vol] 270 mg/dL High 0-150 A [facility] [place] Comment on above: Performed By: #### A UNRULY, VALPR, CBC, ADIFF, BMP, GFR, AMM #### [place] [address] PTHon 06-15-2023 PTH, Intact 52.9 pg/mL Normal 18.5-88.0 [facility] [place] Comment on above: Performed By: #### A UNRULY, VALPR, CBC, ADIFF, BMP, GFR, AMM #### [place] [address] VALPRon 06-15-2023 LDose Valproic Acid: Unknown Normal [facility] [place] Comment on above: Performed By: #### A UNRULY, VALPR, CBC, ADIFF, BMP, GFR, AMM #### [place] [address] Valproic Acid Lvl 130 mcg/mL High 50-100 [facility] ([place] Comment on above: Performed By: #### A UNRULY, VALPR, CBC, ADIFF, BMP, GFR, AMM #### [place] [address] VIDHon 06-15-2023 Vit. D 25-Hydroxy 87.8 ng/mL Normal [facility] [place] Comment on above: Result Comment: Inte rpretive Values Based on Total 25(OH) Vitamin D: Deficient <20 ng/mL Insufficient 20 - <30 ng/mL Sufficient 30-100 ng/mL Performed By: #### A UNRULY, VALPR, CBC, ADIFF, BMP, GFR, AMM #### [address] [address] .Auto Diffon 06-14-2023 Basophil, Absolute 0.0 10 3/mcL Normal 0.0-0.2 [facility] [place] Comment on above: Performed By: #### A UNRULY, VALPR, CBC, ADIFF, BMP, GFR, AMM #### [address] [address] Basophils/100 WBC (Bld) 0.4 % Normal 0.0-2.5 A [facility] [place] Comment on above: Performed By: #### A UNRULY, VALPR, CBC, ADIFF, BMP, GFR, AMM #### [address] [address] Eosinophil, Absolute 0.2 10 3/mcL Normal 0.0-0.4 [facility] ([place] Comment on above: Performed By: #### A UNRULY, VALPR, CBC, ADIFF, BMP, GFR, AMM #### [address] [address] Eosinophils/100 WBC (Bld) 1.6 % Normal 0.0-7.0 [facility] [place] Comment on above: Performed By: #### A UNRULY, VALPR, CBC, ADIFF, BMP, GFR, AMM #### [address] [address] Lymphocyte, Absolute 3.1 10 3/mcL Normal 0.8-3.9 [facility] ([place] Comment on above: Performed By: #### A UNRULY, VALPR, CBC, ADIFF, BMP, GFR, AMM #### [address] [address] Lymphocytes/100 WBC (Bld) 27.5 % Normal 10.0-50.0 [facility] [place] Comment on above: Performed By: #### A UNRULY, VALPR, CBC, ADIFF, BMP, GFR, AMM #### [address] [address] Monocyte, Absolute 1.0 10 3/mcL Normal 0.2-1.0 [facility] [place] Comment on above: Performed By: #### A UNRULY, VALPR, CBC, ADIFF, BMP, GFR, AMM #### [address] [address] Monocytes/100 WBC (Bld) 8.8 % Normal 1.7-13.0 A [facility] [place] Comment on above: Performed By: #### A UNRULY, VALPR, CBC, ADIFF, BMP, GFR, AMM #### [address] [address] Neutrophils/100 WBC (Bld) 61.7 % Normal 37.0-80.0 [facility] [place] Comment on above: Performed By: #### A UNRULY, VALPR, CBC, ADIFF, BMP, GFR, AMM #### [address] [address] .GFRon 06-14-2023 GFR 51 ml/min/1.73sqm Normal [facility] [place] Comment on above: Result Comment: GFR Population [...] VALPR, CBC, ADIFF, BMP, GFR, AMM #### [address] [address] GFR Non- 42 ml/min/1.73sqm Normal [facility] [place] Comment on above: Result Comment: GFR Population [...] VALPR, CBC, ADIFF, BMP, GFR, AMM #### [address] [address] .NEUABSon 06-14-2023 Neutrophil, Absolute 6.9 10 3/mcL High 2.9-6.2 [facility] ([place]) Comment on above: Performed By: #### A UNRULY, VALPR, CBC, ADIFF, BMP, GFR, AMM #### [address] [address] A1Con 06-14-2023 HbA1c (Bld) [Mass fraction] 5.6 % Normal 4.3-6.4 [facility] ([place]) Comment on above: Performed By: #### A UNRULY, VALPR, CBC, ADIFF, BMP, GFR, AMM #### [address] [address] CBCon 06-14-2023 Erythrocyte distribution width (RBC) [Ratio] 14.9 % High 11.5-14.5 [facility] ([place]) Comment on above: Performed By: #### A UNRULY, VALPR, CBC, ADIFF, BMP, GFR, AMM #### [address] [address] Hematocrit (Bld) [Volume fraction] 34.8 % Low 37.0-47.0 [facility] ([place]) Comment on above: Performed By: #### A UNRULY, VALPR, CBC, ADIFF, BMP, GFR, AMM #### [place] [address] Hgb 11.7 G/dL Low 12.0-16.0 [facility] ([place]) Comment on above: Performed By: #### A UNRULY, VALPR, CBC, ADIFF, BMP, GFR, AMM #### [place] [address] MCH (RBC) [Entitic mass] 28.3 pg Normal 27.0-31.2 [facility] ([place]) Comment on above: Performed By: #### A UNRULY, VALPR, CBC, ADIFF, BMP, GFR, AMM #### [place] [address] MCHC 33.6 G/dL Normal 33.0-37.0 [facility] ([place]) Comment on above: Performed By: #### A UNRULY, VALPR, CBC, ADIFF, BMP, GFR, AMM #### [place] [address] MCV (RBC) [Entitic vol] 84.3 fL Normal 80.0-94.0 A [facility] ([place]) Comment on above: Performed By: #### A UNRULY, VALPR, CBC, ADIFF, BMP, GFR, AMM #### [place] [address] Platelet 290 10 3/mcL Normal 130-400 [facility] ([place] Comment on above: Performed By: #### A UNRULY, VALPR, CBC, ADIFF, BMP, GFR, AMM #### [place] [address] Platelet mean volume (Bld) [Entitic vol] 8.7 fL Normal 7.4-10.4 [facility] ([place] Comment on above: Performed By: #### A UNRULY, VALPR, CBC, ADIFF, BMP, GFR, AMM #### [place] [address] RBC 4.13 10 6/mcL Low 4.20-5.40 [facility] ([place]) Comment on above: Performed By: #### A UNRULY, VALPR, CBC, ADIFF, BMP, GFR, AMM #### [address] [address] WBC 11.2 10 3/mcL High 4.6-10.8 [facility] ([place] Comment on above: Performed By: #### A UNRULY, VALPR, CBC, ADIFF, BMP, GFR, AMM #### [address] [address] CMPon 06-14-2023 Albumin Level 3.1 G/dL Low 3.4-4.8 [facility] ([place] Comment on above: Performed By: #### A UNRULY, VALPR, CBC, ADIFF, BMP, GFR, AMM #### [address] [address] Albumin/Globulin [Mass ratio] 0.7 {ratio} Low 1.1-2.5 [facility] ([place] Comment on above: Performed By: #### A UNRULY, VALPR, CBC, ADIFF, BMP, GFR, AMM #### [address] [address] ALP [Catalytic activity/Vol] 70 U/L Normal 40-135 [facility] ([place] Comment on above: Performed By: #### A UNRULY, VALPR, CBC, ADIFF, BMP, GFR, AMM #### [address] [address] ALT [Catalytic activity/Vol] 30 U/L Normal 14-59 [facility] ([place] Comment on above: Performed By: #### A UNRULY, VALPR, CBC, ADIFF, BMP, GFR, AMM #### [address] [address] AST [Catalytic activity/Vol] 31 U/L Normal 10-40 [facility] ([place] Comment on above: Performed By: #### A UNRULY, VALPR, CBC, ADIFF, BMP, GFR, AMM #### [address] [address] Bili Total 0.2 mg/dL Normal 0.2-1.0 [facility] ([place] Comment on above: Result Comment: Use of this assay is not recommended for patients undergoing treatment with eltrombopag due to the potential for falsely elevated results. Performed By: #### A UNRULY, VALPR, CBC, ADIFF, BMP, GFR, AMM #### [place] [address] BUN/Creatinine Ratio 17 ratio Normal 7-27 [facility] ([place]) Comment on above: Performed By: #### A UNRULY, VALPR, CBC, ADIFF, BMP, GFR, AMM #### [place] [address] Calcium [Mass/Vol] 10.1 mg/dL Normal 8.4-10.2 [facility] ([place]) Comment on above: Performed By: #### A UNRULY, VALPR, CBC, ADIFF, BMP, GFR, AMM #### [place] [id number] Chloride [Moles/Vol] 99 mmol/L Normal 98-107 [facility] ([place] Comment on above: Performed By: #### A UNRULY, VALPR, CBC, ADIFF, BMP, GFR, AMM #### [place] [id number] CO2 [Moles/Vol] 24 mmol/L Normal 23-31 [facility] ([place] Comment on above: Performed By: #### A UNRULY, VALPR, CBC, ADIFF, BMP, GFR, AMM #### [place] [id number] Creatinine [Mass/Vol] 1.28 mg/dL High 0.55-1.02 [facility] ([place]) Comment on above: Performed By: #### A UNRULY, VALPR, CBC, ADIFF, BMP, GFR, AMM #### [place] [id number] Electrolyte Balance 14.0 mEq/L Normal 4.0-15.0 [facility] ([place]) Comment on above: Performed By: #### A UNRULY, VALPR, CBC, ADIFF, BMP, GFR, AMM #### [place] [id number] Globulin 4.7 G/dL Normal [facility] ([place] Comment on above: Performed By: #### A UNRULY, VALPR, CBC, ADIFF, BMP, GFR, AMM #### [address] [address] Glucose [Mass/Vol] 167 mg/dL High 80-115 [facility] ([place]) Comment on above: Performed By: #### A UNRULY, VALPR, CBC, ADIFF, BMP, GFR, AMM #### [address] [address] Potassium [Moles/Vol] 3.6 mmol/L Normal 3.5-5.1 [facility] ([place]) Comment on above: Performed By: #### A UNRULY, VALPR, CBC, ADIFF, BMP, GFR, AMM #### [address] [address] Sodium [Moles/Vol] 137 mmol/L Normal 136-145 [facility] ([place]) Comment on above: Performed By: #### A UNRULY, VALPR, CBC, ADIFF, BMP, GFR, AMM #### [address] [address] Total Protein 7.8 G/dL Normal 6.4-8.2 [facility] ([place] Comment on above: Performed By: #### A UNRULY, VALPR, CBC, ADIFF, BMP, GFR, AMM #### [address] [address] Urea nitrogen [Mass/Vol] 22 mg/dL High 7-18 [facility] ([place] Comment on above: Performed By: #### A UNRULY, VALPR, CBC, ADIFF, BMP, GFR, AMM #### [address] [address] LABORATORYOrdered By: Sayda Odonnell on 06-14-2023 25-hydroxyvitamin [...] 06-14-2023 Cholesterol [Mass/Vol] 122 mg/dL Normal 0-200 [facility] ([place]) Comment on above: Result Comment: Chol esterol Reference Interval: Less than 200 Desirable 200-239 Borderline high risk 240 and above High risk Performed By: #### A UNRULY, VALPR, CBC, ADIFF, BMP, GFR, AMM #### [address] [address] Cholesterol in HDL [Mass/Vol] 37 mg/dL Low 40-60 [facility] ([place] Comment on above: Performed By: #### A UNRULY, VALPR, CBC, ADIFF, BMP, GFR, AMM #### [address] [address] Cholesterol in LDL [Mass/Vol] 31 mg/dL Normal 0-130 [facility] ([place] Comment on above: Performed By: #### A UNRULY, VALPR, CBC, ADIFF, BMP, GFR, AMM #### [address] [address] Triglyceride [Mass/Vol] 270 mg/dL High 0-150 A [facility] ([place]) Comment on above: Performed By: #### A UNRULY, VALPR, CBC, ADIFF, BMP, GFR, AMM #### [address] [address] VALPRon 06-14-2023 LDose Valproic Acid: Unknown Normal [facility] ([place] Comment on above: Performed By: #### A UNRULY, VALPR, CBC, ADIFF, BMP, GFR, AMM #### [address] [address] Valproic Acid Lvl 130 mcg/mL High 50-100 [facility] ([place]) Comment on above: Performed By: #### A UNRULY, VALPR, CBC, ADIFF, BMP, GFR, AMM #### [address] [address] VIDHon 06-14-2023 Vit. D 25-Hydroxy 87.8 ng/mL Normal [facility] ([place]) Comment on above: Result Comment: Inte rpretive Values Based on Total 25(OH) Vitamin D: Deficient <20 ng/mL Insufficient 20 - <30 ng/mL Sufficient 30-100 ng/mL Performed By: #### A UNRULY, VALPR, CBC, ADIFF, BMP, GFR, AMM #### [address] [address] LABORATORYOrdered By: Jasmyne Foster on 06-13-2023 25-hydroxyvitamin [...] 52.9 pg/mL Normal 18.5 - 88.0 pg/mL AH ADM SS LABORATORYOrdered By: Strategic Funding SourceR P CONTRIBUTOR_SYSTEM on 06-13-2023 Levetiracetam Lvl (LC) Not performed Invalid Interpretation Code AO Sendouts SS Comment on above: Result Comment: Test not performed. Test cancelled by Healthcare provider after order was submitted to [facility]. Contacted by Viji Carrero at your facility 06.17.2023 Performed At: [facility] [address] [id number] Yan Sanchez MD Ph:[phone] RENINDon 12-18-2022 Direct Renin 187.7 pg/mL High 3.6-81.6 [facility] ([place]) Comment on above: Result Comment: A ra [...] Age >=41 years: 2.5-45.1 pg/mL Performed By: [facility] [address] [place] [address] Hris Analyst: Rigoberto Burgos III, M.D. CLIA#: [id number] Performed By: #### A UNRULY, VALPR, CBC, ADIFF, BMP, GFR, AMM #### [place] [id number] Patient Upright or Supine Upright Normal [facility] ([place]) Comment on above: Result Comment: Perf ormed By: [facility] [address] [place] [address] Hris Analyst: Rigoberto Burgos III, M.D. CLIA#: [id number] Performed By: #### A UNRULY, VALPR, CBC, ADIFF, BMP, GFR, AMM #### [place] [address] KEPPRAon 12-14-2022 Levetiracetam Lvl 99.1 UG/ML High 12.0-46.0 [facility] ([place]) Comment on above: Result Comment: This test [...] developed and its performance characteristics determined by [facility]'s [facility] [place] (-[facility]). It has not been cleared or approved by the FDA. [facility] is regulated under CLIA as qualified to perform high-complexity testing. This test is used for clinical purposes. It should not be regarded as investigational or for research. Performed By: [facility] [address] [place] [address] Hris Analyst: Rigoberto Burgos III, M.D. CLIA#: [id number] Performed By: #### A UNRULY, VALPR, CBC, ADIFF, BMP, GFR, AMM #### [place] [address] PTHon 12-14-2022 PTH, Intact 62.8 pg/mL Normal 18.5-88.0 [facility] ([place]) Comment on above: Performed By: #### A UNRULY, VALPR, CBC, ADIFF, BMP, GFR, AMM #### [place] [address] .Auto Diffon 12-13-2022 Basophil, Absolute 0.1 10 3/mcL Normal 0.0-0.2 [facility] ([place]) Comment on above: Performed By: #### T SH, LIPID, GFR, ANEU, CMP, PTH, A1C, CBC, VIDH, ADIFF ####[place] [address]#### VALPR, LEVET, RENIND ####[place] [address] [place], [place] [address] Basophils/100 WBC (Bld) 0.7 % Normal 0.0-2.5 A [facility] ([place]) Comment on above: Performed By: #### T SH, LIPID, GFR, ANEU, CMP, PTH, A1C, CBC, VIDH, ADIFF ####[place] [address]#### VALPR, LEVET, RENIND ####[place] [address] [place], [place] [address] Eosinophil, Absolute 0.1 10 3/mcL Normal 0.0-0.4 [facility] ([place]) Comment on above: Performed By: #### T SH, LIPID, GFR, ANEU, CMP, PTH, A1C, CBC, VIDH, ADIFF ####[place] [address]#### VALPR, LEVET, RENIND ####[place] [address] [place], [place] [address] Eosinophils/100 WBC (Bld) 1.1 % Normal 0.0-7.0 [facility] ([place] Comment on above: Performed By: #### T SH, LIPID, GFR, ANEU, CMP, PTH, A1C, CBC, VIDH, ADIFF ####[place] [address]#### VALPR, LEVET, RENIND ####[place] [address] [place], [place] [address] Lymphocyte, Absolute 3.5 10 3/mcL Normal 0.8-3.9 [facility] ([place]) Comment on above: Performed By: #### T SH, LIPID, GFR, ANEU, CMP, PTH, A1C, CBC, VIDH, ADIFF ####[place] [address]#### VALPR, LEVET, RENIND ####[facility] Center[facility]bm[facility] [place], [place] [address] Lymphocytes/100 WBC (Bld) 32.5 % Normal 10.0-50.0 [facility] ([place] Comment on above: Performed By: #### T SH, LIPID, GFR, ANEU, CMP, PTH, A1C, CBC, VIDH, ADIFF ####[place] [address]#### VALPR, LEVET, RENIND ####[place] [address] [place], [place] [address] Monocyte, Absolute 1.3 10 3/mcL High 0.2-1.0 [facility] ([place] Comment on above: Performed By: #### T SH, LIPID, GFR, ANEU, CMP, PTH, A1C, CBC, VIDH, ADIFF ####[place] [address]#### VALPR, LEVET, RENIND ####[facility] CenterEpjcvceyy1437 [place], [place] [address] Monocytes/100 WBC (Bld) 12.3 % Normal 1.7-13.0 [facility] ([place]) Comment on above: Performed By: #### T SH, LIPID, GFR, ANEU, CMP, PTH, A1C, CBC, VIDH, ADIFF ####[address] [address]#### VALPR, LEVET, RENIND ####[address] [place], [place] [address] Neutrophils/100 WBC (Bld) 53.4 % Normal 37.0-80.0 [facility] ([place]) Comment on above: Performed By: #### T SH, LIPID, GFR, ANEU, CMP, PTH, A1C, CBC, VIDH, ADIFF ####[place] [address]#### VALPR, LEVET, RENIND ####[address] [place], [place] [address] .GFRon 12-13-2022 GFR Non- 47 ml/min/1.73sqm Normal [facility] ([place]) Comment on above: Result Comment: GFR Population [...] VALPR, CBC, ADIFF, BMP, GFR, AMM #### [address] [address] GFR 57 ml/min/1.73sqm Normal [facility] ([place]) Comment on above: Result Comment: GFR Population [...] VALPR, CBC, ADIFF, BMP, GFR, AMM #### [place] [address] .NEUABSon 12-13-2022 Neutrophil, Absolute 5.8 10 3/mcL Normal 2.9-6.2 [facility] ([place]) Comment on above: Performed By: #### T SH, LIPID, GFR, ANEU, CMP, PTH, A1C, CBC, VIDH, ADIFF ####[place] [address]#### VALPR, LEVET, RENIND ####[address] [place], [place] [address] A1Con 12-13-2022 HbA1c (Bld) [Mass fraction] 5.9 % Normal 4.3-6.4 [facility] ([place]) Comment on above: Performed By: #### T SH, LIPID, GFR, ANEU, CMP, PTH, A1C, CBC, VIDH, ADIFF ####[place] [address]#### VALPR, LEVET, RENIND ####[address] [place], [place] [address] CBCon 12-13-2022 Erythrocyte distribution width (RBC) [Ratio] 14.6 % High 11.5-14.5 [facility] ([place]) Comment on above: Performed By: #### T SH, LIPID, GFR, ANEU, CMP, PTH, A1C, CBC, VIDH, ADIFF ####[place] [address]#### VALPR, LEVET, RENIND ####[place] [address] [place], [place] [address] Hematocrit (Bld) [Volume fraction] 34.5 % Low 37.0-47.0 [facility] ([place] Comment on above: Performed By: #### T SH, LIPID, GFR, ANEU, CMP, PTH, A1C, CBC, VIDH, ADIFF ####[place] [address]#### VALPR, LEVET, RENIND ####[place] [address] [place] [phone] Hgb 11.6 G/dL Low 12.0-16.0 [facility] ([place]) Comment on above: Performed By: #### T SH, LIPID, GFR, ANEU, CMP, PTH, A1C, CBC, VIDH, ADIFF ####[place] [address]#### VALPR, LEVET, RENIND ####[facility] CenterCdqocnhzm8270 [place] [id number] MCH (RBC) [Entitic mass] 27.9 pg Normal 27.0-31.2 [facility] ([place]) Comment on above: Performed By: #### T SH, LIPID, GFR, ANEU, CMP, PTH, A1C, CBC, VIDH, ADIFF ####[place] [address]#### VALPR, LEVET, RENIND ####[place] [address] [place] [phone] MCHC 33.7 G/dL Normal 33.0-37.0 [facility] ([place] Comment on above: Performed By: #### T SH, LIPID, GFR, ANEU, CMP, PTH, A1C, CBC, VIDH, ADIFF ####[place] [address]#### VALPR, LEVET, RENIND ####[facility] CenterNczsxcsby3687 [place] [phone] MCV (RBC) [Entitic vol] 82.9 fL Normal 80.0-94.0 A [facility] ([place]) Comment on above: Performed By: #### T SH, LIPID, GFR, ANEU, CMP, PTH, A1C, CBC, VIDH, ADIFF ####[place] [address]#### VALPR, LEVET, RENIND ####[address] [place] [phone] Platelet 261 10 3/mcL Normal 130-400 [facility] ([place] Comment on above: Performed By: #### T SH, LIPID, GFR, ANEU, CMP, PTH, A1C, CBC, VIDH, ADIFF ####[place] [address]#### VALPR, LEVET, RENIND ####[address] [place] [address] Platelet mean volume (Bld) [Entitic vol] 7.8 fL Normal 7.4-10.4 [facility] ([place]) Comment on above: Performed By: #### T SH, LIPID, GFR, ANEU, CMP, PTH, A1C, CBC, VIDH, ADIFF ####[place] [address]#### VALPR, LEVET, RENIND ####[address] [place] [address] RBC 4.16 10 6/mcL Low 4.20-5.40 [facility] ([place] Comment on above: Performed By: #### T SH, LIPID, GFR, ANEU, CMP, PTH, A1C, CBC, VIDH, ADIFF ####[place] [address]#### VALPR, LEVET, RENIND ####[address] [place] [address] WBC 10.8 10 3/mcL Normal 4.6-10.8 [facility] ([place] Comment on above: Performed By: #### T SH, LIPID, GFR, ANEU, CMP, PTH, A1C, CBC, VIDH, ADIFF ####[place] [address]#### VALPR, LEVET, RENIND ####[address] [place] [phone] [facility] Albumin Level 3.7 G/dL Normal 3.4-4.8 [facility] ([place]) Comment on above: Performed By: #### A UNRULY, VALPR, CBC, ADIFF, BMP, GFR, AMM #### [address] [address] Albumin/Globulin [Mass ratio] 0.8 {ratio} Low 1.1-2.5 [facility] ([place]) Comment on above: Performed By: #### A UNRULY, VALPR, CBC, ADIFF, BMP, GFR, AMM #### [address] [address] ALP [Catalytic activity/Vol] 68 U/L Normal 40-135 [facility] ([place]) Comment on above: Performed By: #### A UNRULY, VALPR, CBC, ADIFF, BMP, GFR, AMM #### [address] [address] ALT [Catalytic activity/Vol] 33 U/L Normal 14-59 [facility] ([place]) Comment on above: Performed By: #### A UNRULY, VALPR, CBC, ADIFF, BMP, GFR, AMM #### [address] [address] AST [Catalytic activity/Vol] 32 U/L Normal 10-40 [facility] ([place]) Comment on above: Performed By: #### A UNRULY, VALPR, CBC, ADIFF, BMP, GFR, AMM #### [address] [address] Bili Total 0.3 mg/dL Normal 0.2-1.0 [facility] ([place] Comment on above: Result Comment: Use of this assay is not recommended for patients undergoing treatment with eltrombopag due to the potential for falsely elevated results. Performed By: #### A UNRULY, VALPR, CBC, ADIFF, BMP, GFR, AMM #### [address] [address] BUN/Creatinine Ratio 22 ratio Normal 7-27 [facility] ([place] Comment on above: Performed By: #### A UNRULY, VALPR, CBC, ADIFF, BMP, GFR, AMM #### [address] [address] Calcium [Mass/Vol] 10.4 mg/dL High 8.4-10.2 [facility] ([place]) Comment on above: Performed By: #### A UNRULY, VALPR, CBC, ADIFF, BMP, GFR, AMM #### [place] [id number] Chloride [Moles/Vol] 98 mmol/L Normal 98-107 [facility] ([place]) Comment on above: Performed By: #### A UNRULY, VALPR, CBC, ADIFF, BMP, GFR, AMM #### [place] [id number] CO2 [Moles/Vol] 28 mmol/L Normal 23-31 [facility] ([place]) Comment on above: Performed By: #### A UNRULY, VALPR, CBC, ADIFF, BMP, GFR, AMM #### [place] [address] Creatinine [Mass/Vol] 1.15 mg/dL High 0.55-1.02 [facility] ([place]) Comment on above: Performed By: #### A UNRULY, VALPR, CBC, ADIFF, BMP, GFR, AMM #### [place] [address] Electrolyte Balance 10.0 mEq/L Normal 4.0-15.0 [facility] ([place]) Comment on above: Performed By: #### A UNRULY, VALPR, CBC, ADIFF, BMP, GFR, AMM #### [address] [address] Globulin 4.8 G/dL Normal [facility] ([place]) Comment on above: Performed By: #### A UNRULY, VALPR, CBC, ADIFF, BMP, GFR, AMM #### [place] [address] Glucose [Mass/Vol] 88 mg/dL Normal 80-115 [facility] ([place]) Comment on above: Performed By: #### A UNRULY, VALPR, CBC, ADIFF, BMP, GFR, AMM #### [address] [address] Potassium [Moles/Vol] 4.7 mmol/L Normal 3.5-5.1 [facility] ([place]) Comment on above: Performed By: #### A UNRULY, VALPR, CBC, ADIFF, BMP, GFR, AMM #### [address] [address] Sodium [Moles/Vol] 136 mmol/L Normal 136-145 [facility] ([place]) Comment on above: Performed By: #### A UNRULY, VALPR, CBC, ADIFF, BMP, GFR, AMM #### [address] [address] Total Protein 8.5 G/dL High 6.4-8.2 [facility] ([place]) Comment on above: Performed By: #### A UNRULY, VALPR, CBC, ADIFF, BMP, GFR, AMM #### [address] [address] Urea nitrogen [Mass/Vol] 25 mg/dL High 7-18 [facility] ([place]) Comment on above: Performed By: #### A UNRULY, VALPR, CBC, ADIFF, BMP, GFR, AMM #### [address] [address] LABORATORYOrdered By: SYSTEM SYSTEM on 12-13-2022 25-hydroxyvitamin [...] higher Very high risk LABORATORYOrdered By: AL BERNICE CONTRIBUTOR_SYSTEM on 12-13-2022 Levetiracetam Lvl 99.1 [...] developed and its performance characteristics determined by [facility]'s [facility] [place] ([facility] It has not been cleared or approved by the FDA. [facility] is regulated under CLIA as qualified to perform high-complexity testing. This test is used for clinical purposes. It should not be regarded as investigational or for research. Performed By: [facility] [address] [place] [address] Hris Analyst: Rigoberto Burgos III, M.D. CLIA#: [id number] LIPIDon 12-13-2022 Cholesterol [Mass/Vol] 176 mg/dL Normal 0-200 [facility] ([place] Comment on above: Result Comment: Chol esterol Reference Interval: Less than 200 Desirable 200-239 Borderline high risk 240 and above High risk Performed By: #### A UNRULY, VALPR, CBC, ADIFF, BMP, GFR, AMM #### [address] [address] Cholesterol in HDL [Mass/Vol] 45 mg/dL Normal 40-60 [facility] ([place] Comment on above: Performed By: #### A UNRULY, VALPR, CBC, ADIFF, BMP, GFR, AMM #### [address] [address] Cholesterol in LDL [Mass/Vol] 83 mg/dL Normal 0-130 [facility] ([place] Comment on above: Performed By: #### A UNRULY, VALPR, CBC, ADIFF, BMP, GFR, AMM #### [address] [address] Triglyceride [Mass/Vol] 239 mg/dL High 0-150 A [facility] ([place]) Comment on above: Result Comment: Trig lyceride Reference Interval: Less than 150 Normal 150-199 Borderline high risk 200-499 High risk 500 or higher Very high risk Performed By: #### A UNRULY, VALPR, CBC, ADIFF, BMP, GFR, AMM #### [place] [address] TSHon 12-13-2022 TSH Qn 3.02 m[IU]/L Normal 0.36-3.74 [facility] ([place]) Comment on above: Performed By: #### T SH, LIPID, GFR, ANEU, CMP, PTH, A1C, CBC, VIDH, ADIFF ####[address] [address]#### VALPR, LEVET, RENIND ####[facility] CenterOfqbjblsy5824 [place], [place] [address] VALPRon 12-13-2022 LDose Valproic Acid: Unknown Normal [facility] ([place] Comment on above: Performed By: #### A UNRULY, VALPR, CBC, ADIFF, BMP, GFR, AMM #### [place] [address] Valproic Acid Lvl 125 mcg/mL High 50-100 [facility] ([place] Comment on above: Performed By: #### A UNRULY, VALPR, CBC, ADIFF, BMP, GFR, AMM #### [place] [id number] [address] [place] [address] VIDHon 12-13-2022 Vit. D 25-Hydroxy 81.8 ng/mL Normal [facility] ([place]) Comment on above: Result Comment: Inte rpretive Values Based on Total 25(OH) Vitamin D: Deficient <20 ng/mL Insufficient 20 - <30 ng/mL Sufficient 30-100 ng/mL Performed By: #### A UNRULY, VALPR, CBC, ADIFF, BMP, GFR, AMM #### [address] [address] MRI KIDNEYon 10-01-2022 MRI KIDNEY ORIGINAL EXAMINATION: [...] Date: 10/01/2022 4:43:31 PM Ordering Provider: FISH Castro [facility] ([place]) LABORATORYOrdered By: Jasmyne Foster on 07-07-2022 LDose [...] Invalid Interpretation Code 12.0-46.0UG/ ML AO Sendouts Comment on above: Result Comment: This test [...] developed and its performance characteristics determined by [facility]'s [facility] [place] ([facility]). It has not been cleared or approved by the FDA. [facility] is regulated under CLIA as qualified to perform high-complexity testing. This test is used for clinical purposes. It should not be regarded as investigational or for research. Performed By: [facility] [address] [place] [address] Hris Analyst: Rigoberto Burgos III, M.D. MILAN#: [id number] LABORATORYOrdered By: mTraks on 05-08-2022 Cobalamin (Vitamin B12) [Mass/Vol] 790 [...] Routine cultures are held for 5 days. [facility] LABORATORYOrdered By: Cristiane Hunter on 02-12-2022 [...] Heart rate 88 /min JAMEY LEONARD MD [facility] 08-13-2023 10:40-0400 Respiratory rate 18 /min JAMEY LEONARD MD [facility] 08-13-2023 06:35-0400 Body temperature 98.24 [degF] JAMEY LEONARD MD [facility] 08-13-2023 06:35-0400 Diastolic Blood Pressure Non-Invasive 76 mm[Hg] JAMEY LEONARD MD [facility] 08-13-2023 06:35-0400 Heart rate 80 /min JAMEY LEONARD MD [address] [place] [address] 08-13-2023 06:35-0400 Respiratory rate 16 /min JAMEY LEONARD MD [address] [place] [address] 08-13-2023 06:35-0400 Systolic Blood Pressure Non-Invasive 129 mm[Hg] JAMEY LEONARD MD [address] [place] [address] 08-13-2023 06:34-0400 Heart rate 82 /min JAMEY LEONARD MD [address] [place] [address] 08-13-2023 06:34-0400 Respiratory rate 17 /min JAMEY LEONARD MD [address] [place] [address] 08-12-2023 22:46-0400 Body temperature 97.7 [degF] JAMEY LEONARD MD [address] [place] [address] 08-12-2023 22:46-0400 Diastolic Blood Pressure Non-Invasive 66 mm[Hg] JAMEY LEONARD MD [address] [place] [address] 08-12-2023 22:46-0400 Reason For Taking VItal Signs JAMEY LEONARD MD [address] [place] [address] 08-12-2023 22:46-0400 Systolic Blood Pressure Non-Invasive 113 mm[Hg] JAMEY LEONARD MD [address] [place] [address] 08-12-2023 16:18-0400 Blood Pressure Cuff Size JAMEY LEONARD MD [address] [place] [address] 08-12-2023 16:18-0400 Blood Pressure Location JAMEY LEONARD MD [address] [place] [address] 08-12-2023 16:18-0400 Blood Pressure Method JAMEY LEONARD MD [address] [place] [address] 08-12-2023 16:18-0400 Body temperature 98.06 [degF] JAMEY LEONARD MD [address] [place] [address] 08-12-2023 16:18-0400 Diastolic Blood Pressure Non-Invasive 82 mm[Hg] JAMEY LEONARD MD [address] [place] [address] 08-12-2023 16:18-0400 Reason For Taking VItal Signs JAMEY LEONARD MD [address] [place] [address] 08-12-2023 16:18-0400 Systolic Blood Pressure Non-Invasive 132 mm[Hg] JAMEY LEONARD MD [address] [place] [address] 08-12-2023 08:41-0400 Reason For Taking VItal Signs JAMEY LEONARD MD [address] [place] [address] 08-12-2023 06:46-0400 Blood Pressure Cuff Size JAMEY LEONARD MD [address] [place] [address] 08-12-2023 06:46-0400 Blood Pressure Location JAMEY LEONARD MD [address] [place] [address] 08-12-2023 06:46-0400 Blood Pressure Method JAMEY LEONARD MD [address] [place] [address] 08-11-2023 14:55-0400 Blood Pressure Cuff Size JAMEY LEONARD MD [address] [place] [address] 08-11-2023 14:55-0400 Blood Pressure Location JAMEY LEONARD MD [address] [place] [address] 08-11-2023 14:55-0400 Blood Pressure Method JAMEY LEONARD MD [address] [place] [address] 08-10-2023 11:04-0400 Heart rate 84 /min JAMEY LEONARD MD [address] [place] [address] 08-10-2023 07:16-0400 Heart rate 89 /min JAMEY LEONARD MD [address] [place] [address] 08-10-2023 03:44-0400 Heart rate 79 /min JAMEY LEONARD MD [address] [place] [address] 08-09-2023 10:50-0400 Mean blood pressure 91 mm[Hg] JAMEY LEONARD MD [facility] 08-09-2023 10:35-0400 Mean blood pressure 93 mm[Hg] JAMEY LEONARD MD [facility] 08-09-2023 10:20-0400 Body temperature 96.8 [degF] JAMEY LEONARD MD [address] [place] [address] 08-09-2023 10:20-0400 Mean blood pressure 91 mm[Hg] JAMEY LEONARD MD [address] [place] [address] 08-08-2023 08:05-0400 Heart rate 84 /min JAMEY LEONARD MD [address] [place] [address] 08-08-2023 04:28-0400 Body temperature 98.06 [degF] JAMEY LEONARD MD [address] [place] [address] 08-08-2023 04:28-0400 Heart rate 72 /min JAMEY LEONARD MD [address] [place] [address] 08-07-2023 15:21-0400 Body temperature 99.14 [degF] JAMEY LEONARD MD [address] [place] [address] 08-07-2023 10:00-0400 Body temperature 98.78 [degF] JAMEY LEONARD MD [address] [place] [address] 08-05-2023 13:40-0400 Body height 160 cm JAMEY LEONARD MD [address] [place] [address] 08-05-2023 13:40-0400 Body weight 76.6 kg JAMEY LEONARD MD [facility] 08-05-2023 13:40-0400 Body weight 29.92 kg/m2 JAMEY LEONARD MD [facility] 08-04-2023 20:54-0400 Diastolic Blood Pressure Non-Invasive 65 mm[Hg] AIDEN MARQUEZ DO [facility] 08-04-2023 20:54-0400 Heart rate 96 /min AIDEN FROMMELT DO [facility] 08-04-2023 20:54-0400 Respiratory rate 20 /min AIDEN FROMMELT DO [facility] 08-04-2023 20:54-0400 Systolic Blood Pressure Non-Invasive 121 mm[Hg] AIDEN FROMMELT DO [facility] 08-04-2023 19:10-0400 Diastolic Blood Pressure Non-Invasive 56 mm[Hg] AIDEN FROMMELT DO [facility] 08-04-2023 19:10-0400 Heart rate 101 /min AIDEN FROMMELT DO [facility] 08-04-2023 19:10-0400 Respiratory rate 20 /min AIDEN FROMMELT DO [facility] 08-04-2023 19:10-0400 Systolic Blood Pressure Non-Invasive 124 mm[Hg] AIDEN FROMMELT DO [facility] 08-04-2023 18:03-0400 Diastolic Blood Pressure Non-Invasive 61 mm[Hg] AIDEN FROMMELT DO [facility] 08-04-2023 18:03-0400 Heart rate 108 /min AIDEN FROMMELT DO [facility] 08-04-2023 18:03-0400 Systolic Blood Pressure Non-Invasive 124 mm[Hg] AIDEN FROMMELT DO [facility] 08-04-2023 15:57-0400 Mean blood pressure 78 mm[Hg] AIDEN FROMMELT DO [facility] 08-04-2023 15:57-0400 Reason For Taking VItal Signs AIDEN MARQUEZ [employer] [facility] 08-04-2023 15:57-0400 Respiratory rate 20 /min AIDEN BELTRANT [employer] [facility] 08-04-2023 13:17-0400 Body height 160 cm [facility] [employer] [facility] 08-04-2023 13:17-0400 Body temperature 97.88 [degF] AIDEN MARQUEZ [employer] [facility] 08-04-2023 13:17-0400 Body weight 76 kg [facility]IDEN [employer] [facility] 08-02-2023 11:51-0400 Blood Pressure Location FISH JORDAN [employer] [facility] 08-02-2023 11:51-0400 Blood Pressure Method FISH JORDAN [employer] [facility] 08-02-2023 11:51-0400 Body temperature 98.96 [degF] FISH JORDAN [employer] [facility] 08-02-2023 11:51-0400 Diastolic Blood Pressure Non-Invasive 85 mm[Hg] FISH JORDAN [employer] [facility] 08-02-2023 11:51-0400 Heart rate 90 /min FISH JORDAN [employer]NA[employer] [facility] 08-02-2023 11:51-0400 Respiratory rate 18 /min FISH JORDAN [employer]NA[employer] [facility] 08-02-2023 11:51-0400 Systolic Blood Pressure Non-Invasive 112 mm[Hg] FISH JORDAN [employer] [facility] 02-24-2022 13:35-0500 Diastolic Blood Pressure Non-Invasive [address] KYLE TELLO MD [facility] 02-24-2022 13:35-0500 Heart rate 76 /min DR KYLE TELLO MD [facility] 02-24-2022 13:35-0500 Respiratory rate 16 /min DR KYLE TELLO MD [facility] 02-24-2022 13:35-0500 Systolic Blood Pressure Non-Invasive [address] KYLE TELLO MD [facility] 02-24-2022 11:14-0500 Diastolic Blood Pressure Non-Invasive [address] KYLE TELLO MD [facility] 02-24-2022 11:14-0500 Heart rate 78 /min DR KYLE TELLO MD [facility] 02-24-2022 11:14-0500 Respiratory rate 16 /min DR KYLE TELLO MD [facility] 02-24-2022 11:14-0500 Systolic Blood Pressure Non-Invasive [address] KYLE TELLO MD [facility] 02-24-2022 09:36-0500 Body temperature 98.06 [degF] DR KYLE TELLO MD [facility] 02-24-2022 09:36-0500 Diastolic Blood Pressure Non-Invasive [address] KYLE TELLO MD [facility] 02-24-2022 09:36-0500 Heart rate 87 /min DR KYLE TELLO MD [facility] 02-24-2022 09:36-0500 Respiratory rate 18 /min DR KYLE TELLO MD [facility] 02-24-2022 09:36-0500 Systolic Blood Pressure Non-Invasive [address] KYLE TELLO MD [facility] 03-18-2021 20:06-0500 Diastolic blood pressure 72 mm[Hg] DR BUCK BURDICK MD [facility] 03-18-2021 20:06-0500 Heart rate 93 /min DR BUCK BURDICK MD [facility] 03-18-2021 20:06-0500 Respiratory rate 20 /min DR BUCK BURDICK MD [facility] 03-18-2021 20:06-0500 Systolic blood pressure 120 mm[Hg] DR BUCK BURDICK MD [facility] 03-18-2021 17:35-0500 Diastolic blood pressure 82 mm[Hg] DR BUCK BURDICK MD [facility] 03-18-2021 17:35-0500 Heart rate 94 /min DR BUCK BURDICK MD [facility] 03-18-2021 17:35-0500 Reason For Taking VItal Signs DR BUCK BURDICK MD [facility] 03-18-2021 17:35-0500 Respiratory rate 20 /min DR BUCK BURDICK MD [facility] 03-18-2021 17:35-0500 Systolic blood pressure 122 mm[Hg] DR BUCK BURDICK MD [facility] 03-18-2021 15:55-0500 Diastolic blood pressure 76 mm[Hg] DR BUCK BURDICK MD [facility] 03-18-2021 15:55-0500 Heart rate 98 /min DR BUCK BURDICK MD [facility] 03-18-2021 15:55-0500 Respiratory rate 18 /min DR BUCK BURDICK MD [facility] 03-18-2021 15:55-0500 Systolic blood pressure 144 mm[Hg] DR BUCK BURDICK MD [facility] 03-18-2021 15:09-0500 Body temperature 98.24 [degF] DR BUCK BURDICK MD [facility] 03-18-2021 15:09-0500 Heart rate 115 /min DR BUCK BURDICK MD [facility] Encounters Encounter Date Encounter Type Care Provider Facility Start: 02-18-2025 ambulatory Elisa Maldonado OLS Facil ity:[facility] Start: 12-21-2024 ambulatory Elisa STANFORD Facil ity:[facility] Start: 12-21-2024 Registered Referred Elisa Maldonado MD - [facility] Start: 11-18-2024 ambulatory Aiden Bonillai ty:[facility] Start: 11-18-2024 Registered Referred Elisa Maldonado MD [facility] Start: 10-13-2024 End: 10-13-[address] Aiden Wolfe DO Work Phone: [facility] Start: 10-13-2024 End: 10-13-2024 Departed Referred [facility] Start: 10-13-2024 Registered Referred Elisa Maldonado MD [facility] Start: 10-13-2024 End: 10-13-2024 ambulatory Aiden Wolfe Facility:[facility] Start: 10-09-2024 Registered Referred Elisa Maldonado MD [facility] Start: 10-09-2024 End: 10-09-2024 ambulatory Elisa STANFORD Facility:[facility] Start: 10-01-2024 End: 10-01-[address] Aiden Wolfe DO Work Phone: [facility] Start: 10-01-2024 End: 10-01-2024 Departed Referred [facility] Start: 10-01-2024 End: 10-01-2024 ambulatory Elisa STANFORD Facility:[facility] Start: 08-18-2024 End: 08-18-2024 ambulatory Elisa Maldonado MD [facility] Work Phone: Start: 08-18-2024 End: 08-18-2024 Departed [facility] Start: 08-18-2024 End: 08-18-2024 ambulatory Elisa STANFORD Facility:[facility] Start: 07-20-2024 End: 07-20-[address] Aiden Wolfe DO Work Phone: [facility] Work Phone: Start: 07-20-2024 End: 07-20-2024 Departed Referred [facility] Start: 07-20-2024 End: 07-20-2024 ambulatory Elisa STANFORD Facility:[facility] Start: 06-22-2024 End: 06-22-[address] Aiden Wolfe DO Work Phone: [facility] Work Phone: Start: 06-22-2024 End: 06-22-2024 [facility] Start: 06-22-2024 End: 06-22-2024 ambulatory Elisa STANFORD Facility:[facility] Start: 05-21-2024 ambulatory Elisa STANFORD Facil ity:[facility] Start: 05-21-2024 Registered Referred Elisa Maldonado MD [facility] Start: 04-20-2024 ambulatory Aiden Wolfe Facili ty:[facility] Start: 04-20-2024 Registered Referred Elisa Maldonado MD [facility] Start: 03-05-2024 End: 03-05-2024 ambulatory Aiden Wolfe Facility:[facility] Start: 02-05-2024 ambulatory FISH JORDAN Facili ty:[facility] Start: 09-16-2023 End: 09-16-2023 ambulatory FISH JORDAN [employer] Facility:B Start: 09-16-2023 End: 09-16-2023 Patient encounter procedure MARJ DEAN MD [facility] Start: 08-04-2023 End: 08-13-2023 Evaluation and management of inpatient JAMEY LEONARD MD [facility] Start: 08-04-2023 End: 08-04-2023 Emergency department patient visit AIDEN MARQUEZ DO [facility] Start: 08-02-2023 End: 08-02-2023 SAME DAY STAY FISH JORDAN [employer] MANA[employer] [facility] Start: 08-02-2023 End: 08-02-2023 ambulatory FISH JORDAN [employer] MANA[employer] Facility:[facility] Start: 08-02-2023 End: 08-02-2023 Patient encounter procedure FISH POTTERPKINS [employer] MANAGER [facility] Start: 06-20-2023 End: 06-24-2023 ambulatory FISH James NIKKI [employer] MANA[employer] Facility:[facility] Start: 06-20-2023 End: 06-24-2023 Outreach Lab FISH James NIKKI [employer] MANA[employer] [facility] Start: 06-13-2023 End: 06-17-2023 ambulatory FISH James NIKKI [employer] MANA[employer] Facility:[facility] Start: 06-13-2023 End: 06-17-2023 Outreach Lab FISH POTTERPKINS [employer] MANAGER [facility] Start: 01-07-2023 End: 01-07-2023 ambulatory FISH James NIKKI [employer] MANA[employer] Facility:[facility] Start: 12-24-2022 End: 12-24-2022 ambulatory FISH James NIKKI [employer] MANA[employer] Facility:[facility] Start: 12-24-2022 End: 12-24-[address] ELISA GAMBLE MD [facility] Start: 12-13-2022 End: 12-17-2022 ambulatory FISH James NIKKI [employer] MANA[employer] Facility:[facility] Start: 12-13-2022 End: 12-17-2022 Outreach Lab FISH James NIKKI [employer] MANAGER [facility] Start: 09-28-2022 End: 09-28-2022 ambulatory FISH James NIKKI [employer] MANAGER Facility:[facility] Start: 09-28-2022 End: 09-28-2022 Patient encounter procedure FISH James NIKKI [employer] MANAGER [facility] Start: 07-07-2022 End: 07-07-2022 Patient encounter procedure NANCIE SHIELDS DO [facility] Start: 06-07-2022 End: 06-11-2022 Outreach Lab FISH JORDAN [employer] MANA[employer] [facility] Start: 05-08-2022 End: 05-08-2022 Patient encounter procedure MEKA KWON [facility] Start: 04-11-2022 End: 04-11-2022 Patient encounter procedure FISH JORDAN [employer] MANA[employer] [facility] Start: 03-21-2022 End: 03-21-2022 Patient encounter procedure FISH JORDAN [employer] MANA[employer] [facility] Start: 03-01-2022 End: 03-01-2022 Patient encounter procedure FISH JORDAN [employer]NA[employer] [facility] Start: 02-24-2022 End: 02-24-2022 Emergency department patient visit DR KYLE TELLO MD [facility] Start: 02-12-2022 End: 02-12-2022 Patient encounter procedure NANCIE SHIELDS DO [facility] Start: 12-12-2021 End: 12-12-[address] ELISA GAMBLE MD [facility] Start: 03-18-2021 End: 03-18-2021 Emergency department patient visit DR BUCK BURDICK MD [facility] Procedures Date Procedure Procedure Detail Performing [...] aboratory/see report* Detection Limit = 3Performed at: [address] [id number] Director: Daniel Heredia MD, Phone: [phone] at: [address] [id number] Director: Crescencio Metcalf PhD, Phone: [phone] Start: 10-01-[address] Aiden Wolfe DO Work Phone: Comment on above: Test Ordered: [id number] LacosamideTest(s) 0 [id number]-Dffvdaargjbjf developed and its performance characteristicsdetermined by [employer]. It has not been cleared or approvedby the Food and Drug Administration.Lacosamide 6.3 ug/mL Reference Range: 5.0-10.0 Limit of Detection 0.5 Mean plasma concentrations following maintenance dose 200 mg/day 4.99 +/- 2.51 ug/mL 400 mg/day 9.35 +/- 4.22 ug/mL 600 mg/day 12.46 +/- 5.60 ug/mLPerformed at: [address] [id number] Director: Daniel Heredia MD, Phone: [phone] at: [address] [id number] Director: Crescencio Metcalf PhD, Phone: [phone] Start: 07-20-2024 Parathyroid hormone measurement Elisa gaitan [...] (>250 nmol/L) Start: 12-24-2022 Echocardiography FISH JORDAN [employer]NA[employer] Comment on above: 1. Left ventricle: The [...] ) mRNA-[address] ELISA GAMBLE MD [facility] 05-26-2020 SARS-CoV-2 (COVID-19 ) mRNA-[address] ELISA GAMBLE MD [facility] 02-07-2017 influenza virus vaccine, unspecified formulation DR ELISA GAMBLE MD [facility] 01-31-2016 influenza virus vaccine, unspecified formulation DR ELISA GAMBLE MD [facility] 01-31-2016 influenza, injectabl e, quadrivalent, preservative free Dr. Aiden Wolfe DO Work Phone: [facility] Payers Date Payer Category Payer Unknown [id number] 2024 Self-pay 2023 Unknown [id number] 2016 Medicaid [id number] 1987 Medicare [id number] 1955 Unknown [id number] 2.16.8 40.1.437843.3.579.2.62 1956 Unknown [id number] 2.16.8 40.1.207353.3.579.2. 1956 Unknown [id number] 2.16.8 40.1.174868.3.579.2.627 1956 Unknown [id number] 2.16.8 40.1.521116.3.579.2.627 1956 Unknown [id number] 2.16.8 40.1.072035.3.579.2.627 1956 Unknown [id number] 2.16.8 40.1.612222.3.579.2.627 1956 Unknown [id number] 2.16.8 40.1.512033.3.579.2.62 1956 Unknown [id number] 2.16.8 40.1.544632.3.579.2.627 1956 Unknown [id number] 2.16.8 40.1.932206.3.579.2.627 1956 Unknown [id number] 2.16.8 40.1.895195.3.579.2.627 1956 Unknown [id number] 2.16.8 40.1.808788.3.579.2.627 1956 Unknown [id number] 2.16.8 40.1.076960.3.579.2.627 1956 Unknown [id number] 2.16.8 40.1.143132.3.579.2.627 1956 Unknown [id number] 2.16.8 40.1.918631.3.579.2.627 Unknown [id number] 2.16.8 40.1.861473.3.579.2.462 Unknown [id number] 2.16.8 40.1.413988.3.579.2.462 Unknown [id number] 2.16.8 40.1.461292.3.579.2.462 Unknown [id number] 2.16.8 40.1.264512.3.579.2.462 Unknown [id number] 2.16.8 40.1.144795.3.579.2.462 Unknown [id number] 2.16.8 40.1.145074.3.579.2.462 Unknown [id number] 2.16.8 40.1.571585.3.579.2.462 Unknown [id number] 2.16.8 40.1.640873.3.579.2.462 Unknown [id number] 2.16.8 40.1.074010.3.579.2.462 Unknown [id number] 2.16.8 40.1.800038.3.579.2.462 Unknown [id number] 2.16.8 40.1.039579.3.579.2.462 Unknown [id number] 2.16.8 40.1.933628.3.579.2.462 Social History Date Type Detail Facility Start: 01-31-2016 End: 05-12-2019 Never smoked tobacco (finding) [facility] Start: 1955 Sex Assigned At Female A [facility] Start: 01-31-2016 None None [facility] Start: 01-31-2016 With Family With Family [facility] Start: 07-15-2024 End: 07-20-2024 Sex Female (finding) [facility] Sex Female [facility] Functional Status Date Assessment Result Facility 08-13-2023 Functional Status Repositions self [facility] 08-13-2023 Functional Status [facility] 08-13-2023 Functional Status [facility] 08-13-2023 Functional Status Identified as high risk, Bed alert on, Non-Slip footwear, Room check performed [facility] 08-13-2023 Functional Status [facility] 08-12-2023 Functional Status [facility] 08-12-2023 Functional Status Done [facility] 08-12-2023 Functional Status Supervised [facility] 08-12-2023 Functional Status [facility] 08-12-2023 Functional Status [facility] 08-12-2023 Functional Status bilateral knee high rem jaida/off [facility] 08-11-2023 [facility] 08-11-2023 [facility] 08-11-2023 [facility] 08-11-2023 [facility] 08-11-2023 Functional Status [facility] 08-10-2023 Functional Status [facility] 08-10-2023 Functional Status [facility] 08-10-2023 Functional Status Lunch Percent 0 [facility] 08-10-2023 Functional Status [facility] 08-10-2023 Functional Status [facility] 08-09-2023 Functional Status [facility] 08-09-2023 Functional Status [facility] 08-09-2023 Functional Status unable to acqu miri home MOREIRA/baseline d/t extensive expressive aphasia, attempted to call POA/sister, unable to get a hold of, social work does not have any further information [facility] 08-09-2023 Functional Status Patient Identi fied Identification band [facility] 08-09-2023 Functional Status Maintained [facility] 08-09-2023 Functional Status [facility] 08-08-2023 Functional Status [facility] 08-08-2023 Functional Status [facility] 08-08-2023 Functional Status [facility] 08-08-2023 Functional Status Special Call D evice Unable to use call device [facility] 08-08-2023 Functional Status Assistive Equi pment elevated on pillows [facility] 08-07-2023 Functional Status [facility] 08-07-2023 Functional Status [facility] 08-07-2023 Functional Status [facility] 08-06-2023 Functional Status [facility] 08-05-2023 Functional Status [facility] 08-05-2023 Functional Status Sensory Deficits None [facility] 08-05-2023 Functional Status No Living Envi ronment Information Available [facility] 08-05-2023 Functional Status [facility] 08-04-2023 Functional Status Room check performed [facility] 02-24-2022 Functional Status Standard Safet y ID band on, Call device within reach, Bed in low position, Wheels locked, Upper/Half-Length side-rails up, Phone within reach, personal items within reach, Assistive devices within reach, Toileting device within reach, Bedside Cart Locked, Visitor at bedside, Safety level maintained [facility] Mental Status Date Assessment Result Facility 08-13-2023 Mental Status Not oriented to place, Not oriented to time, Not oriented to situation [facility] 08-12-2023 Mental Status [facility] 08-04-2023 Mental Status Orientation Other: [facility] 02-24-2022 Mental Status Orientation Disoriented x 4 1 [facility] Clinical Notes 03-18-2021 to 08-13-2023 Note Date & Type Note Facility 08-13-2023 Discharge summary Date of Service 08/13/23 Discharge Diagnosis 1. Breakthrough seizure 2. Acute encephalopathy 3. Hyponatremia 4. Developmental delay 5. Asthma without exacerbation 6. Other history of HTN, HLD, obesity Additional Orders: Ordered: Discharge,08/13/23 10:00:00 EDT, Discharged to: Residential Facility Hospital Course 67-year-old female with past medical history of epilepsy, developmental delay, hypertension, hyperlipidemia and obesity. Patient presented to [facility] as a transfer from [facility] emergency department on 08/04/2023 with concerns [...] was actually stable for discharge to [facility] care of mariama Patterson on 08/12/2023. The patient's POA Jorge called in requesting a change of facility. The patient stayed overnight in the hospital due to facility change. No acute events noted overnight. Vital signs are hemodynamically stable. Mentation improving each day. Patient was alert to self, location and family. Patient is stable for discharge to [facility] SN[facility]. Sister updated on plan. [...] 08/04/23 Discharge Date 08/13/23 Medications New Prescription [id number] Milligram by mouth every six (6) hours [...] Follow Up Follow Up with [facility] When Within 1-2 days Why: follow up wtin 2 weeks Where: [address] [place] [address]- Business (1) Follow Up with FISH [facility]ORD[facility] [employer] MANA[employer] When Within 1-2 days Why: Please call the office to schedule a follow-up appointment Where: [address] [facility] [place] [address]- Follow Up Appointments Transfer of Care OT [...] -- Type of Diet: Soft and Bite Amejr-VLPYU-2, Thin (Thinned)-IDDSI-0, 08/12/23 10:51:00 EDT Discharge Activity Transfer of Care Activity - Ordered -- As instructed by therapy, 08/12/23 10:51:00 EDT Condition on Discharge Stable Discharge Disposition SNF Information Provided To Patient Sister Time Spent 32 minutes Digitally Signed by ADEBAYO MARTINEZ on 08/13/2023 10:03 AM Digitally Signed by LENNY PARK DO on 08/13/2023 10:17 AM [facility] 08-13-2023 Note Discharge Instructions Thank you for allowing [facility] to assist you with your healthcare needs. The following is important discharge information regarding your hospital visit. Your Care Team FISH JORDAN APRN, CNP Your Diagnosis Developmentally disabled HTN (hypertension) Hyperlipidemia LDL goal <100 Seasonal asthma Seizure What to do next Scheduled Follow-Up Appointments Appointment Type When With Where Contact InformationPC Nurse Lab 12/12/2023 08:00 AM EDT [facility] 12/23/2023 07:00 AM EDT FISH JORDAN APRN, CNP [facility] Follow Up Appointments Follow Up with [facility] When Within 1-2 days Follow [facility] with [facility] [facility] When Within 1-2 days Why: follow up wtihin 2 weeks Where: [address] [place] [address]- [facility] (1) Follow Up with FISH JORDAN APRN, CNP When Within 1-2 days Why: Please call the office to schedule a follow-up appointment Where: [address] [place] [address]- The Following Activity and Diet Have Been Ordered for You Transfer of Care Activity - Ordered -- As instructed by therapy, 08/12/23 10:51:00 EDT Transfer of Care Diet - Ordered -- Type of Diet: Soft and Bite Ldqrf-YQZBT-3, Thin (Thinned)-IDDSI-0, 08/12/23 10:51:00 EDT The Following Equipment Has Been Ordered for You No qualifying data available. The Following Treatments Have Been Ordered for You Discharge Labs Transfer of Care Labwork - Ordered -- Valporic Acid level, monitor while on Valporic acid, follow-up within: 5-7 days, Results Notify to: FISH JORDAN APRN - TALENT SOLUTIONS MANAGER, 08/12/23 10:51:00 EDT Discharge Radiology No qualifying [...] 5-7 days, Results Notify to: FISH JORDAN TOBACCO ROLLER - TALENT SOLUTIONS MANAGER, 08/12/23 10:51:00 EDT Transfer of Care Orders [...] Follow these instructions at home: Medicines Take wayw-ypn-qumtkhu and prescription medicines only as told by [...] medicines are used to treat seizures. Take bbbu-gdz-ycoqcby and prescription medicines only as told by your health care provider. This information is not intended to replace advice given to you by your health care provider. Make sure you discuss any questions you have with your health care provider. Document Released: 03/29/2001 Document Revised: 06/19/2019 Document Reviewed: 06/19/2019 [employer] Patient Education 2020 [employer]. Additional Information VACCINATE! IT SAVES LIVES! Members of the community who have not yet received the COVID-19 vaccine and would like to receive it can visit one of [facility] vaccine clinics. There are many vaccine clinic locations within the [facility]. For locations and available times, please visit https://gettheshot.coronavirus.[place].gov/. It is important to note that some COVID mobile vaccine clinics are held outdoors and may be canceled in rainy or stormy conditions. To learn more about pediatric vaccinations (ages 5-11), we invite you to visit the [employer] webpage. https://www.ProfStreams.org/pag es/3113-Dlibu-Goamyqfjsql-Frequent yt-Pfqjh-Wecbvmytn.html To learn more about the COVID-19 vaccine, we invite you to visit the CDC website for a list of frequently asked questions.https://www.cdc.gov/fabiola navirus/2019-ncov/vaccines/faq.htm l [employer] Patient Portal Access Instructions: Stay connected with your healthcare team and access your personal medical information anytime with the [employer] Patient Portal. Please follow the directions below to create your [employer] account: 1.Access the email account you provided upon registration to the hospital/physician office.2.Look for an invitation email from [facility].3.Open the email and access the invitation link: Accept Invitation to [employer].4.Fill in the required spicer to create your account. To access your account, visit [employer]self/[email or web address]. Click the blue button labeled Access Patient Portal and then log in with the username [...] you will allow to register on the [employer] Patient Portal for access to your information. You can also access the [employer] Patient Portal on the [place] [employer] amaury. Simply click on Patient Portal and then log into your account. If you would like to receive a full copy of your medical records, please contact the [facility] Medical Records Department by calling [phone], Saturday through Saturday between 8 a.m. and [...] Call your local pharmacy or go to http://[employer]ise Software/1Q6Ce9n to find one close to you.3.Make use of household items: Use cat litter or old coffee grounds to dispose medications if other options are not available. Mix your drugs with these household products, seal them in an airtight container and throw it into the garbage. Call [facility]: [phone] to be sure your drugs can be [...] that I should contact my doctor. Patient/Meat Smoker Signature: Date/Time: Relationship to Patient: ___ Witness Name/Signature: Date/Time: [facility] 08-13-2023 Discharge summary Date of Service 08/13/23 Discharge Diagnosis 1. Breakthrough seizure 2. Acute encephalopathy 3. Hyponatremia 4. Developmental delay 5. Asthma without exacerbation 6. Other history of HTN, HLD, obesity Additional Orders: Ordered: Discharge,08/13/23 10:00:00 EDT, Discharged to: [facility] 67-year-old female with past medical history of epilepsy, developmental delay, hypertension, hyperlipidemia and obesity. Patient presented to [facility] as a transfer from [facility] emergency department on 08/04/2023 with concerns [...] family. Patient is stable for discharge to [facility] SNF. Sister updated on plan. [...] 08/04/23 Discharge Date 08/13/23 Medications New Prescription [id number] Milligram by mouth every six (6) hours [...] Why: follow up wtihin 2 weeks Where: [address] [place] [address]- Business (1) Follow Up with FISH JORDAN APRN - [facility] When Within 1-2 days Why: Please call the office to schedule a follow-up appointment Where: [address] [facility] [place] [address]- Follow Up Appointments Transfer of Care OT [...] -- Type of Diet: Soft and Bite Vfoiv-CZOHM-3, Thin (Thinned)-IDDSI-0, 08/12/23 10:51:00 EDT Discharge Activity Transfer of Care Activity - Ordered -- As instructed by therapy, 08/12/23 10:51:00 EDT Condition on Discharge Stable Discharge Disposition SNF Information Provided To Patient Sister Time Spent 32 minutes Digitally Signed by ADEBAYO MARTINEZ on 08/13/2023 10:03 AM Digitally Signed by LENNY PARK DO on 08/13/2023 10:17 AM [facility] 08-13-2023 Hospital Discharge instructions Patient Education [...] Follow these instructions at home: Medicines Take wwtj-pyy-lmmfbzl and prescription medicines only as told by [...] medicines are used to treat seizures. Take vhqm-oxb-emsgudf and prescription medicines only as told by your health care provider. This information is not intended to replace advice given to you by your health care provider. Make sure you discuss any questions you have with your health care provider. Document Released: 03/29/2001 Document Revised: 06/19/2019 Document Reviewed: 06/19/2019 [employer] Patient Education 2020 [employer]. Follow Up Care 08/04/2023 16:56:26 With:[facility] Address:Unknown When:[facility]-2 [facility] Address: [address] [place] [address]- [facility] (1) When:1-2 days Comments:follow up wtihin 2 weeks With:FISH JORDAN APRN - TALENT SOLUTIONS MANAGER Address: [address] [facility] [place] [address]- When:1-2 days Comments:Please call the office to schedule a follow-up appointment [facility] 08-12-2023 Discharge summary Date of Service [...] Care Diet,Type of Diet: Soft and Bite Ximad-HZHNA-9, Thin (Thinned)-IDDSI-0, 08/12/23 10:51:00 EDT Ordered: Transfer [...] hypertension, hyperlipidemia and obesity. Patient presented to [facility] as a transfer from [facility] emergency department on 08/04/2023 with concerns [...] the patient is stable for discharge to [facility]. for TEREZA Diggs over phone. Case [...] 08/04/23 Discharge Date 08/12/23 Medications New Prescription [id number] Milligram by mouth every six (6) hours [...] up wtihin 2 weeks Where: [address] [place] [address]- Business (1) Follow Up with FISH JORDAN APRN - [facility] When Within 1-2 days Why: Please call the office to schedule a follow-up appointment Where: [address] [facility] [place] [address]- Follow Up Appointments Transfer of Care OT - Ordered -- Reason for therapy: weakness, 08/12/23 10:51:00 EDT Transfer of Care PT - Ordered -- Reason for therapy: weakness, 08/12/23 10:51:00 EDT Follow Up Labs/Studies Discharge Labs Transfer of Care Labwork - Ordered -- Valporic Acid level, monitor while on Valporic acid, follow-up within: 5-7 days, Results Notify to: FISH JORDAN APRN - TALENT SOLUTIONS MANAGER, 08/12/23 10:51:00 EDT Discharge Studies No Follow-up Studies Discharge Diet Transfer of Care Diet - Ordered -- Type of Diet: Soft and Bite Ibzwz-KFCPR-9, Thin (Thinned)-IDDSI-0, 08/12/23 10:51:00 EDT Discharge Activity Transfer of Care Activity - Ordered -- As instructed by therapy, 08/12/23 10:51:00 EDT Condition on Discharge Stable Discharge Disposition SNF Information Provided To Patient TOMAS left for TEREZA Diggs Time Spent 32 minutes Digitally Signed by ADEBAYO MARTINEZ APRN-ARLINE on 08/12/2023 10:57 AM Digitally Signed by MANDA BENSON MD [facility] 08-11-2023 Note . MICRO - Microbiology [...] Locations *1: This test was performed at: [facility], [address] [place] [address], [address]- , [facility] ([place]) 08-11-2023 Note . MICRO - Microbiology PROCEDURE: [...] Locations *1: This test was performed at: [facility], [address] [place] [address], [id number]- , [facility] ([place]) 08-11-2023 Note Date of Service 08/11/23 Chief Complaint mentation improving Subjective 67-year-old female with past medical history of epilepsy, developmental delay, hypertension, hyperlipidemia and obesity. Patient presented to [facility] as a transfer from [facility] emergency department on 08/04/2023 with concerns [...] for dysphagia. PT/OT recommending SNF, planning for [facility]. Patient seen today. Mentation improving. She was [...] recommending SNF, planning for [facility] Plan discussed with patient. Jorge STARKS updated on plan of care Case discussed with Dr. Benson Digitally Signed by ADEBAYO MARTINEZ on 08/11/2023 11:37 AM [facility] 08-11-2023 Respiratory therapy Hospital Progress note [...] Joanie Garcia RT on 08/11/2023 10:46 AM [facility] 08-10-2023 Note Date of Service 08/10/2023 Chief Complaint AMS Subjective 67-year-old female with past medical history of epilepsy, developmental delay, hypertension, hyperlipidemia and obesity. Patient presented to [facility] as a transfer from [facility] emergency department on 08/04/2023 with concerns [...] for dysphagia. PT/OT [facility] SNF[facility] Patient seen today. She was alert and [...] by ADEBAYO MARTINEZ on 08/10/2023 02:16 PM [facility] 08-10-2023 Neurology Progress note Date of [...] with eyes open, can state her name Nai, when asked what her last name is states isael, asked where she was said hospital but is not to time. She provides yes/no responses. When asked if she was in pain said no. Did say one short sentences I got to go to the bathroom but could not expand further on this. On 2 separate occasions she did display preservation repeating her name Hernandez twice but her preservation appears much less/improved [...] and place. She can state her name Nai, when asked what her last name is states isael, asked where she was said hospital but is not to time. She provides yes/no responses. When asked if she was in pain said no. Did say one short sentences I got to go to the bathroom but could not expand further on this. Could not participate in meaningful conversation. On 2 separate occasions she did display preservation repeating her name Hernandez twice but her preservation appears much less/improved [...] GUTIERREZ PENA MD on 08/10/2023 02:51 PM [facility] 08-09-2023 Note Date of Service 08/09/23 Chief Complaint confusion Subjective 67-year-old female with past medical history of epilepsy, developmental delay, hypertension, hyperlipidemia and obesity. Patient presented to [facility] as a transfer from [facility] emergency department on 08/04/2023 with concerns [...] by ADEBAYO MARTINEZ on 08/09/2023 01:55 PM [facility] 08-09-2023 Neurology Progress note Date of Service 08/09/23 Chief Complaint Breakthrough seizures Subjective Patient seen and examined without family at bedside. Nursing reports no acute issues overnight or concerns for seizures today. Patient appears slightly improved today compared to yesterday but is not at her baseline. On examination, she has her eyes open, appears alert, when asked her name says Nai, did display preservation repeating her name on a couple of occasions that was not in context of the question being asked. Did say ow, yes, no. When asked where he is she is [...] appears slow to respond. She did say Nai, when asked what her name was, however did display preservation repeating her name on a couple of occasions that was not in context of the question being asked. Did say ow, yes, no. When asked where she was said hospital. Could not answer any further questions or [...] face grimace and withdrawal to pain said ow in her lowers Motor: Involuntary movements: Did [...] also recommended that she be transferred to [facility] for an EEG to exclude nonconvulsive [...] by PUJA GUSMAN on 08/09/2023 02:48 PM [facility] 08-09-2023 Note Date of Service 08/09/23 Chief Complaint confusion Subjective 67-year-old female with past medical history of epilepsy, developmental delay, hypertension, hyperlipidemia and obesity. Patient presented to [facility] as a transfer from [facility] emergency department on 08/04/2023 with concerns [...] by ADEBAYO MARTINEZ on 08/09/2023 01:55 PM [facility] 08-09-2023 Anesthesiology Consult note Patient: NAI [...] CHARLY NAVA MD on 08/09/2023 11:46 AM [facility] 08-09-2023 Note ORIGINAL HISTORY: TIA COMPARISON: [...] 08/09/2023 11:01:30 AM Ordering Provider: BRITT LOPEZ [facility] 08-09-2023 Anesthesiology Consult note Patient: NAI [...] Medical High serum renin / SNOMED CT 387396348 / Confirmed Adrenal mass, left / SNOMED CT 003471813 / Confirmed Anemia / SNOMED CT 637191731 / Confirmed Anemia due to chronic kidney disease / SNOMED CT 1365781903 / Confirmed Atonic seizure / SNOMED CT 937223725 / Confirmed CKD (chronic kidney disease), stage III / SNOMED CT 8317961990 / Confirmed Developmentally disabled / SNOMED CT 8778542551 / Confirmed Abnormal echocardiogram / SNOMED CT 783886914 / Confirmed Fracture of clavicle: right transverse fracture / SNOMED CT 60636909 / Confirmed Elevated glucose / SNOMED CT 8443900025 / Confirmed Hemorrhoids / SNOMED CT 421884079 / Confirmed HTN (hypertension) / SNOMED CT 8655UX3T-3968-5912-3132-QXT850FG18 20 / Confirmed Hyperlipidemia LDL goal <100 / SNOMED CT 42466814 / Confirmed Hyperlipidemia / SNOMED CT 12681134 / Confirmed IFG (impaired fasting glucose) / SNOMED CT 1803468904 / Confirmed Incontinence / SNOMED CT 06973224 / Confirmed Increased BMI (body mass index) / SNOMED CT 68762333 / Confirmed Mental disability / SNOMED CT 464404480 / Confirmed IBS (irritable bowel syndrome) / SNOMED CT 21041899 / Confirmed Leukocytosis / SNOMED CT 553778085 / Confirmed Non-smoker / SNOMED CT 16539178 / Confirmed Osteoporosis / SNOMED CT 896512358 / Confirmed Screening for cholesterol level / SNOMED CT 675147125 / Confirmed Screening mammogram, encounter for / SNOMED CT 097201720 / Confirmed Risk and functional assessment / SNOMED CT 290890953 / Confirmed Post-menopausal / SNOMED CT 753907199 / Confirmed Psoriasis / SNOMED CT 63883442 / Confirmed Renal mass, right / SNOMED CT 564212830 / Confirmed Seasonal allergies / SNOMED CT 9878493728 / Confirmed Seasonal asthma / SNOMED CT 8835908746 / Confirmed Seizure disorder / SNOMED CT 384472562 / Confirmed Uterine fibromyoma / 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 Post-operative state (18612918): Resolved. Procedure history: Echocardiogram ([id number]) on 12/24/2022 at 67 Years. Comments: 02/06/2023 [...] atrium: The atrium is mildly dilated Echocardiogram ([id number]) on 12/12/2021 at 66 Years. Comments: 12/20/2021 [...] Tricuspid valve: There is trivial regurgitation. Echocardiogram ([id number]) on 12/20/2020 at 65 Years. Comments: 01/03/2021 13:38 Clarissa Nicholas MA (ABR-OE) EF 60-65% ORIF - Open reduction and internal fixation of fracture ([id number]) on 04/23/2014 at 58 Years. Comments: 12/13/2015 8:51 MIKALA CULVER right foot Oophorectomy (170451202) in 2001 at 46 Years. Lumpectomy of breast (7247190341). Comments: 04/20/2014 13:30 KEHINDE BUCIO RN MONICA Left Social History Social & Psychosocial Habits Alcohol 4Risk Assessment: Denies Alcohol Use 08/02/2023 Use: Never Substance Abuse 4Risk Assessment: Denies Substance Abuse 08/02/2023 Use: Never Tobacco 08/02/2023isk Assessment: Denies Tobacco Use 08/02/2023 Tobacco Use: Never (less than 100 in l Exposure to Tobacco Smoke Lives in non-smoking home Home/Environment 08/02/2023 Primary Wash Driller: Self and sister Nutrition/Health 08/02/2023 Caffeine intake amount: none . Physical Examination General: No acute distress. Airway: Mallampati classification: III (soft palate, base of uvula visible). Head: Normocephalic. Dentition Evaluation: Intact, Own teeth, Denies loose/chipped teeth. Respiratory: Respirations are non-labored. Cardiovascular: Normal rate. Heart Sounds: Normal. Neurologic: Alert. Review / Management Documentation reviewed: Current records, Reviewed prior records. Assessment and Plan [place] [employer] Anesthesi[employer] (ASA) physical status classification: Class III. h/o seizures, CKD, anemia, htn, hld Anesthetic Preoperative Plan Anesthetic technique: General. Induction: intravenously. Maintenance airway: Oral endotracheal tube. Postoperative pain management: Per surgeon. Risks discussed: nausea, vomiting, headache, sore throat, dental injury, hypotension, allergic reaction, serious complications. Informed consent: signed by patient. Digitally Signed by JM LIU MD on 08/09/2023 11:21 AM [facility] 08-08-2023 Note SINUS RHYTHM Electronic Signature: PAVEL PAYAN MD 08/09/2023 11:38:30 [facility] 08-08-2023 Neurology Progress note Date of Service 08/08/23 Chief Complaint Breakthrough seizures Subjective Patient seen and examined without family at bedside. Nursing reports no acute issues overnight. Patient appears similar to when I saw her yesterday. On exam has her eyes open, appears alert, when asked her name says Nai, then said nai hernandez did say yeah once ow twice however continued to display preservation on exam stating Hernandez to relevant questions. Could not answer any [...] Physical Exam Mental Status: Alert Responded with Nai Isael to most questions, did say yeah once, ow twice. She continued to display preservation on exam stating Isael. Could not answer any further questions or [...] face grimace and withdrawal to pain said ow twice Motor: Involuntary movements: Did display slight [...] also recommended that she be transferred to [facility] for an EEG to exclude nonconvulsive [...] plan with bedside RN/charge -Plan discussed with POCaroline, agreeable -Avoid medications like Wellbutrin and Tramadol [...] by PUJA GUSMAN on 08/08/2023 02:23 PM [facility] 08-07-2023 Note PROCEDURE TYPE: Routine inpatient [...] GUTIERREZ PENA MD on 08/07/2023 03:13 PM [facility] 08-06-2023 Note ORIGINAL EXAMINATION: ONE XRAY [...] 08/06/2023 10:43:49 AM Ordering Provider: BRITT LOPEZ [facility] 08-05-2023 Neurology Consult note Date of [...] also recommended that she be transferred to [facility] for an EEG to exclude nonconvulsive status epilepticus. Today she was still having persistent speech alterations and answering yeah to most questions although occasionally she would [...] Neurologic Exam Mental Status: Alert Reponded with yeah to most questions and commands Did saw ow purposefully at one point Also said ok a few times. Otherwise, assessment was limited. [...] 1250 mcg (50,000 intl units) oral capsule, 13680 International_Unit= 1 cap(s), Oral, qmonth, 4 refills [...] Use, 11/19/2017 Use: Never., 10/15/2018 Home/Environment Primary Wash Driller: Self and sister., 05/12/2019 Nutrition/Health Caffeine intake [...] GUTIERREZ PENA MD on 08/05/2023 03:26 PM [facility] 08-05-2023 Note PROCEDURE TYPE: Routine inpatient [...] GUTIERREZ PENA MD on 08/05/2023 02:41 PM [facility] 08-05-2023 Nurse Progress note mitt restraints discontinued in favor of soft limb wrist restraints during previous shift. Soft limb restraints alone used from 0700 until further documentation Digitally Signed by David Zamora RN on 08/05/2023 10:15 AM [facility] 08-04-2023 History and physical note Date of Service 08/04/23 Chief Complaint Seizure History of Present Illness 67-year-old female with PMHx seizures, developmentally disabled, HTN, HLD, obesity presents to the hospital as a transfer from [facility] for seizures. History is obtained by discussion with my colleague who accepted the patient, chart review. The patient can only reply yeah to all questions. Per documentation by ED [...] basic sentences but has only been applying EA after her seizures today. She had 2 [...] tab(s), Oral, qDay Spacer, inhaler See Instructions Tessalshavonne Perles 100 mg oral capsule 100 mg = 1 cap(s), PRN, Oral, q8h Allergies NKA Social History Smoking Status - 11/19/2017 Never smoker Alcohol - Denies Alcohol Use, 11/19/2017 Use: Never., 10/15/2018 Home/Environment Primary Wash Driller: Self and sister., 05/12/2019 Nutrition/Health Caffeine intake [...] JEANNE VAN MD on 08/05/2023 12:01 AM [facility] 08-04-2023 Note Abnormal inferior Q waves Baseline wander in lead(s) II,III,aVR,aVF Compared to ECG at 02/24/2022 10:25:35 BORDERLINE ECG Electronic Signature: AIDEN MARQUEZ DO 08/04/2023 15:37:41 [facility] 08-04-2023 Note ORIGINAL EXAMINATION: CTA OF [...] Sign Date: 08/04/2023 3:24:32 PM Ordering Provider: [facility] 08-04-2023 Neurology Consult note Date of Service 08/04/2023 Reason for Consultation Consent: I discussed the risks and benefits of a telehealth visit and I obtained the patient s or legally authorized leasing representative s informed verbal consent to conduct this assessment using telehealth tools with visual and audio. All of the patient s or legally authorized leasing representative s questions regarding the telehealth interaction were addressed. I provided my name and disclosed to the patient or legally authorized leasing representative my licensure, certification, or registration. This [...] the consulting provider. Location of Patient: [facility] Emergency Department Physician Film Sound Coordinator: [ enter student admissions clerk stroke Providers name here ] Location and [...] 1250 mcg (50,000 intl units) oral capsule, 13119 International_Unit= 1 cap(s), Oral, qmonth, 4 refills [...] qDay, 1 refills Spacer, inhaler, See Instructions Testala Perles 100 mg oral capsule, 100 mg= 1 cap(s), Oral, q8h, PRN Allergies NKA Social History Smoking Status - 11/19/2017 Never smoker Alcohol - Denies Alcohol Use, 11/19/2017 Use: Never., 10/15/2018 Home/Environment Primary Wash Driller: Self and sister., 05/12/2019 Nutrition/Health Caffeine intake [...] DOTTY HARPER MD on 08/04/2023 03:05 PM [facility] 08-04-2023 Note ORIGINAL EXAMINATION: ONE XRAY [...] Sign Date: 08/04/2023 3:19:38 PM Ordering Provider: [facility] 08-04-2023 Note ORIGINAL EXAMINATION: CTA OF [...] Date: 08/04/2023 3:33:32 PM Ordering Provider: AID[facility] 08-04-2023 Evaluation + Plan note Extrac daniela from: Title:History and Physical Author:SEAN VAN MD Date:08/04/23 Acute speech abnormality. Pe r report, the patient typically says basic sentences but has only been applying EA after her seizures today. She had 2 witnessed seizure episodes. She was evaluated by teleneurology who is recommending MRI brain, EEG. MRI brain Ordered Harshal Will, Keosvaldora as recommended by teleneurology will attempt to [...] 07:00:00 AM Scheduled Provider:FISH JORDAN APRN - TALENT SOLUTIONS MANAGER Location:[facility] Appointment Type:PC OV Future Scheduled Tests Laboratory* Levetiracetam (Keppra), S 12/21/23 * A1C Hemoglobin 12/21/23 * Complete Blood Count 12/21/23 * Lipid Profile 12/21/23 * Albumin/Creatinine Ratio, Random Urine 12/21/23 * Microalbumin Level Urine 12/15/22 * PTH, Intact 12/21/23 * Vitamin D Level 12/21/23 * Valproic Acid Level 12/21/23 * Complete Metabolic Panel 12/21/23 [facility] 04-21-2024 Note ORIGINAL EXAMINATION: CT OF [...] Sign Date: 08/04/2023 2:10:24 PM Ordering Provider: [facility]09-11-2023 Note* Exam Date Time Procedure Performing Provider Status 12/24/22 9:19 AM Echocardiogram, Adult (AOH) Auth (Verified) [facility] 11-17-2022 Note ORIGINAL EXAMINATION: MRI OF [...] 03/01/2022 5:17:53 PM Ordering Provider: FISH NIKKI [facility]11-17-2022 Note ORIGINAL EXAMINATION: MRI OF THE [...] Sign Date: 03/01/2022 5:17:53 PM Ordering Provider: [facility]22 Hospital Discharge instructions Patient Education 02/24/2022 13:35:26 [...] sleep patterns Cause muscle strain Harm digestion [id number] [employer]. [address] [place] [address], [place] [address]. All rights reserved. This information is not [...] loosen secretions in the nose and lungs. Kvdk-era-anvnkwj cold medicines will not shorten the length of time you re sick, but they may be helpful for the following symptoms: cough, sore throat, and nasal and sinus congestion. If you take prescription medicines, ask your healthcare provider or pharmacist which gkjx-zqn-ldfktft medicines are safe to use. (Note: Don't [...] goes along with a muffled voice [employer]. [address] [place] [address]. All rights reserved. This information is not [...] diarrhea, vomiting, or a high fever. [employer]. [address] [place] [address]. All rights reserved. This information is not intended as a substitute for professional medical care. Always follow yourhealthcare professional's instructions. Follow Up Care 02/24/2022 09:23:27 With:Keep your appointment for the scheduled EEG. Address:Unknown When:2-4 days With:FISH JORDAN Address: [address] [place] [address] Business (1) When:2-4 days Comments:Return to ED if symptoms worsen [facility] 11-12-2022 Note Discharge Instructions Thank you for allowing [facility] to assist you with your healthcare needs. [...] to ED if symptoms worsen Where: [address] [place] [address] Business (1) Allergies NKA Medications Please ask [...] sleep patterns Cause muscle strain Harm digestion [id number] [employer]. [address] [place] [address]. All rights reserved. This information is not [...] loosen secretions in the nose and lungs. Wbmw-bry-cgtwrlm cold medicines will not shorten the length of time you re sick, but they may be helpful for the following symptoms: cough, sore throat, and nasal and sinus congestion. If you take prescription medicines, ask your healthcare provider or pharmacist which skaa-tir-ymoumqk medicines are safe to use. (Note: Don't [...] goes along with a muffled voice [employer]. [address] [place] [address]. All rights reserved. This information is not [...] diarrhea, vomiting, or a high fever. [employer]. [address] [place] [address], [place] [address]. All rights reserved. This information is not intended as a substitute for professional medical care. Always follow yourhealthcare professional's instructions. Additional Information VACCINATE! IT SAVES LIVES! Members of the community who have not yet received the COVID-19 vaccine and would like to receive it can visit one of [facility] vaccine clinics. There are many vaccine clinic locations within the [facility]. For locations and available times, please visit [email or web address]. It is important to note that some COVID mobile vaccine clinics are held outdoors and may be canceled in rainy orstormy conditions. To learn more about pediatric vaccinations (ages 5-11), we invite you to visit the [facility] [employer] [facility] webpage. [email or web address] learn more about the COVID-19 vaccine, we invite you to visit the [employer] website for a list of frequently asked questions. [email or web address] _[email or web address].pdf [facility] [employer] Patient Portal Access Instructions: Stay connected with your healthcare team and access your personal medical information anytime with the [employer] Patient Portal. If you would like a full copy of your medical records please contact the [facility] Medical Records Department Saturday through Saturday between 8a.m. and 4:30p.m. Please follow the directions below to access the portal: 1.Access the email account you provided upon registration to the hospital.2.Look for an invitation email from [facility].3.Open the email and access the invitation link: Accept Invitation to [employer]4.Fill in the required spicer to create your account. Sign into www.[employer]self with your username and password that you [...] you will allow to register on the [employer] Patient Portal for access to your information. You can also access the [employer] Patient Portal on the [employer] amaury. Simply click on Health Records under [employer] and then click on the [employer] logo. HOW TO SAFELY DISPOSE OF PRESCRIPTION [...] Call your local pharmacy or go to [email or web address] to find one close to you.3.Make use of household items: Use cat litter or old coffee grounds to dispose medications if other options arenot available. Mix your drugs with these household products, seal them in an airtight container andthrow it into the garbage. Call [facility]: [phone] to be sure your drugs can be [...] that I should contact my doctor. Patient/Meat Smoker Signature: Date/Time: Relationship to Patient: Witness Name/Signature: Date/Time: [facility]2022 Note ORIGINAL EXAMINATION: CT OF THE ABDOMEN AND PELVIS WITH [id number]/12/2022 11:[address] ABDOMEN/PELVIS WITH CONTRAST TECHNIQUE: [...] Sign Date: 02/24/2022 12:23:00 PM Ordering Provider: [facility]11-12-2022 Note ORIGINAL EXAMINATION: CT OF THE HEAD [...] Date: 02/24/2022 12:13:11 PM Ordering Provider: KYLE [facility]11-12-2022 Note ORIGINAL EXAMINATION: CT OF THE ABDOMEN AND PELVIS WITH BUZNFAEJ56/12/2022 11:[address] ABDOMEN/PELVIS WITH CONTRAST TECHNIQUE: [...] Sign Date: 02/24/2022 12:23:00 PM Ordering Provider: [facility]11-12-2022 Note ORIGINAL EXAMINATION: CT OF [...] Anthony Bautista MD Preliminary Report By: Anthony Buatista MD Electronically signed By Anthony Bautista MD Dictated Date: 02/24/2022 12:12:36 PM Prelim Date: 02/24/2022 12:13:11 PM Sign Date: 02/24/2022 12:13:11 PM Ordering Provider: [facility]11-12-2022 Note ORIGINAL EXAMINATION: ONE XRAY [...] Sign Date: 02/24/2022 10:42:45 AM Ordering Provider: [facility]11-12-2022 Note ORIGINAL EXAMINATION: ONE XRAY VIEW OF [...] Sign Date: 02/24/2022 10:42:45 AM Ordering Provider: [facility]11-12-2022 SARS-CoV-2 (COVID-19) RNA ADAM+probe Ql (Nph)Negative *NA* (02/24/22 9:54 AM)AO Auto Urine [id number] Hospital Discharge instructions Patient Education 03/18/2021 19:26:47 [...] drainage, or pus coming from the wound [phone] [employer]. [address] [place] [address]. All rights reserved. This information is not [...] directed. It does not work when taken as needed. Missing doses will increase the risk of having another seizure. If you miss a dose, take the missed dose as soon as you remember. If it is almost time for your next dose, skip the missed dose. Restart the medicine at your next scheduled time. Don t take extra medicine to make up the missed dose. Wear a Medic-Alert bracelet to let emergency personnel know about [...] told. 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 [address] [place] [address]. All rights reserved. This information is not [...] infection spreads to the kidney. The phrases bladder infection, UTI, and cystitis are often used to describe the same [...] swelling in the outer vaginal area (labia) [phone] [employer]. [address] [place] [address]. All rights reserved. This information is not intended as a substitute for professional medical care. Always follow yourhealthcare professional's instructions. Follow Up Care 03/18/2021 15:01:02 With:ANTONIO LYONS Address: [address] [place] [phone] Business (1) When:2-4 days With:NANCIE SHIELDS Address: [address] [facility] [place] [phone] Business (1) When:Within 2 Day(s) With:FISH JORDAN Address: [address] [facility] [place] [address]- Business (1) When:2-4 days Comments:Return to ED if symptoms worsen [facility] Evaluation + Plan note Future Appointments [...] Level 05/27/21 * Complete Metabolic Panel 05/27/21 [facility] Evaluation + Plan note Future Appointments Appointment Date:12/20/2021 09:45:00 AM Scheduled Provider: Location:[facility] Appointment Type:CV OV Appointment Date:06/07/2022 08:00:00 AM Scheduled Provider: Location:[facility] Appointment Type:PC Nurse Lab Appointment Date:06/14/2022 04:00:00 PM Scheduled Provider:FISH JORDAN APRN, CNP Location:[facility] Appointment Type:PC OV Follow Up Future Scheduled Tests Laboratory* Levetiracetam Level 06/09/22 * Complete Blood Count 06/09/22 * Lipid Profile 06/09/22 * Microalbumin Level Urine 06/09/22 * Vitamin D Level 06/09/22 * Complete Metabolic Panel 06/09/22 [facility] Evaluation + Plan note Future Appointments [...] Level 06/09/22 * Complete Metabolic Panel 06/09/22 [facility] Evaluation + Plan note Future Appointments [...] Level 06/09/22 * Complete Metabolic Panel 06/09/22 [facility] Evaluation + Plan note Future Appointments [...] Panel 06/09/22 * Complete Metabolic Panel 02/27/22 [facility] Evaluation + Plan note Future Appointments [...] BD Bone Density DEXA Axial Skeleton 04/09/22 [facility] Evaluation + Plan note Future Appointments [...] Axial Skeleton 04/09/22 * MRI Kidney 09/28/22 [facility] Evaluation + Plan note Future Appointments Appointment Date:06/14/2022 04:00:00 PM Scheduled Provider:FISH JORDAN APRN, CNP Location:[facility] Appointment Type:PC OV Follow Up Appointment Date:12/20/2022 09:00:00 AM Scheduled Provider: Location:[facility] Appointment Type:CV Procedure - AOH Echo Future Scheduled Tests Laboratory* Levetiracetam Level 02/27/22 * Microalbumin Level Urine 06/09/22 * Valproic Acid Level 02/27/22 * Complete Metabolic Panel 02/27/22 Radiology* BD Bone Density DEXA Axial Skeleton 04/09/22 * MRI Kidney 09/28/22 [facility] Evaluation + Plan note Future Appointments Appointment Date:12/13/2022 08:30:00 AM Scheduled Provider: [facility] Appointment Type:PC Nurse Lab Appointment Date:12/20/2022 09:00:00 AM Scheduled Provider: Location:[facility] Appointment Type:CV Procedure - AOH Echo Appointment Date:12/20/2022 04:00:00 PM Scheduled Provider:FISH JORDAN APRN, CNP Location:[facility] Appointment Type:PC OV Follow Up Diagnostic [...] Axial Skeleton 04/09/22 * MRI Kidney 09/28/22 [facility] Evaluation + Plan note Future Appointments Appointment Date:12/13/2022 08:30:00 AM Scheduled Provider: [facility] Appointment Type:PC Nurse Lab Appointment Date:12/20/2022 09:00:00 AM Scheduled Provider: Location:[facility] Appointment Type:CV Procedure - AOH Echo Appointment Date:12/20/2022 04:00:00 PM Scheduled Provider:FISH JORDAN APRN, CNP Location:[facility] Appointment Type: OV Follow Up Future [...] BD Bone Density DEXA Axial Skeleton 04/09/22 [facility] Evaluation + Plan note Future Appointments Appointment Date:12/20/2022 07:00:00 AM Scheduled Provider:FISH JORDAN APRN, CNP Location:[facility] Appointment Type:PC OV Follow Up Appointment Date:12/20/2022 09:00:00 AM Scheduled Provider: Location:[facility] Appointment Type:CV Procedure - AOH Echo Diagnostic Tests Pending * Renin, Plasma 12/13/22 Future Scheduled Tests Laboratory* Microalbumin Level Urine 12/15/22 Radiology* BD Bone Density DEXA Axial Skeleton 04/09/22 [facility] [employer]aluation + Plan note Future Appointments Appointment Date:06/13/2023 [...] BD Bone Density DEXA Axial Skeleton 04/09/22 [facility] [employer]aluation + Plan note Future Appointments Appointment Date:06/20/2023 07:00:00 AM Scheduled Provider:FISH JORDAN APRN, CNP Location:[facility] Appointment Type:PC OV Follow Up Future Scheduled Tests Laboratory* Albumin/Creatinine Ratio, Random Urine 06/20/23 * Microalbumin Level Urine 12/15/22 [facility] [employer]aluation + Plan note Future Appointments Appointment Date:07/05/2023 02:30:00 PM Scheduled Provider: Location:[facility] Appointment Type:CV OV Appointment Date:12/12/2023 08:00:00 AM Scheduled Provider: Location:[facility] Appointment Type:PC Nurse Lab Appointment Date:12/23/2023 07:00:00 AM Scheduled Provider:FISH JORDAN APRN, CNP Location:[facility] Appointment Type: OV Future Scheduled Tests Laboratory* Levetiracetam (Keppra), [...] BD Bone Density DEXA Axial Skeleton 06/20/23 [facility] Evaluation + Plan note Future Appointments Appointment Date:12/12/2023 08:00:00 AM Scheduled Provider: Location:[facility] Appointment Type: Nurse Lab Appointment Date:12/23/2023 07:00:00 AM Scheduled Provider:FISH JORDAN APRN [facility] Location:[facility] Appointment Type: OV Future Scheduled Tests Laboratory* Levetiracetam (Keppra), S 12/21/23 * A1C Hemoglobin 12/21/23 * Complete Blood Count 12/21/23 * Lipid Profile 12/21/23 * Albumin/Creatinine Ratio, Random Urine 12/21/23 * Microalbumin Level Urine 12/15/22 * PTH, Intact 12/21/23 * Vitamin D Level 12/21/23 * Valproic Acid Level 12/21/23 * Complete Metabolic Panel 12/21/23 [facility] Evaluation + Plan note Future Appointments Appointment Date:12/12/2023 08:00:00 AM Scheduled Provider: Location:[facility] Appointment Type:PC Nurse Lab Appointment Date:12/23/2023 07:00:00 AM Scheduled Provider:FISH JORDAN APRN [facility] Location:[facility] Appointment Type: OV Diagnostic Tests Pending [...] Level 12/21/23 * Complete Metabolic Panel 12/21/23 [facility] Evaluation noteNo assessment information available [facility] Work Phone: Hospital course Narrative No data available for this section [facility] Hospital Discharge instructions No data available for this section [facility] Progress note No data available for this section [facility] Reason for referral (narrative)No reason for referral information [facility]: Summary Purpose Family History [...] Reason for Visit Chief Complaint Admit Date ASSISTED LAB WORK April 20, 2024 5:00am LABWORK May 21, 2024 5 :00am LABWORK June 22, 2024 5:0 0am Chief Complaint Admit Date ASSISTED LAB WORK April 20, 2024 5:00am LABWORK May 21, 2024 5 :00am LABWORK June 22, 2024 5:0 0am ASSISTED LAB WORK July 20, 2024 4: 00am Chief Complaint Admit Date LABWORK May 21, 2024 5 :00am LABWORK June 22, 2024 5:0 0am ASSISTED LAB WORK July 20, 2024 4: 00am ASSISTED LAB WORK August 18, 2024 5:00 am Chief Complaint Admit Date ASSISTED LAB WORK October 01, 2024 5: 00am ASSISTED LAB WORK October 09, 2024 5: 00am ASSISTED LAB WORK October 13, 2024 5:0 0am ASSISTED LAB WORK November 18, 2024 5 :00am ASSISTED LAB WORK December 21 5:00am Additional Source Comments Care Team (unrecognized sect ion and content) Care Team Personnel Name: FISH JORDAN TOBACCO ROLLER - TALENT SOLUTIONS MANAGER Position: P4 Advanced Practice Nurse Member Role: Primary Care Physician Address: Address: [address] [place] [address] Care Team Related Persons Name: JORGE PEÑA Address: Home [address] [place], [place] [phone] [place] Name: KIMBERLY PEÑA Care Team Personnel Name: FISH JORDAN TOBACCO ROLLER - TALENT SOLUTIONS MANAGER Position: P4 Advanced Practice Nurse Member Role: Primary Care Physician Address: Address: [address] [place] [address] Care Team Related Persons Name: JORGE PEÑA Address: Home [address] [place], [place] [phone] [place] Name: KIMBRELY PEÑA Care Team Personnel Name: FISH JORDAN TOBACCO ROLLER - TALENT SOLUTIONS MANAGER Position: P4 Advanced Practice Nurse Member Role: Primary Care Physician Address: Address: [address] [place] [address] Care Team Related Persons Name: JORGE PEÑA Address: Home [address] [place], [place] [phone] [place] Name: KIMBERLY PEÑA Care Team Personnel Name: FISH JORDAN TOBACCO ROLLER - TALENT SOLUTIONS MANAGER Position: P4 Advanced Practice Nurse Member Role: Primary Care Physician Address: Address: [address] [place] [address] Care Team Related Persons Name: JORGE PEÑA Address: Home [address] [place], [place] [phone] [place] Name: KIMBERLY PEÑA Care Team Personnel Name: FISH JORDAN TOBACCO ROLLER - TALENT SOLUTIONS MANAGER Position: P4 Advanced Practice Nurse Member Role: Primary Care Physician Address: Address: [address] [place], [place] [id number] Care Team Related Persons Name: JORGE PEÑA Address: Home [address] [place], [place] [phone] [place] Name: KIMBERLY PEÑA Care Team Personnel Name: FISH JORDAN TOBACCO ROLLER - TALENT SOLUTIONS MANAGER Position: P4 Advanced Practice Nurse Member Role: Primary Care Physician Address: Address: [address] [place] [phone] [place] Care Team Related Persons Name: JORGE PEÑA Address: Home [address] [place], [place] [phone] [place] Name: KIMBERLY PEÑA Care Team Personnel Name: FISH JORDAN TOBACCO ROLLER - TALENT SOLUTIONS MANAGER Position: P4 Advanced Practice Nurse Member Role: Primary Care Physician Address: Address: [address] [place] [phone]- [place] Care Team Related Persons Name: JORGE PEÑA Address: Home [address] [place], [place] [phone] [place] Name: KIMBERLY PEÑA Care Team Personnel Name: FISH JORDAN TOBACCO ROLLER - TALENT SOLUTIONS MANAGER Position: P4 Advanced Director Of Instructional Technology Member Role: Primary Care Physician Address: Address: [address] [place] [phone]- [place] Care Team Related Persons Name: JORGE PEÑA Address: Home [address] [place], [place] [phone] [place] Name: KIMBERLY PEÑA Patient Care team [...] Member Role/Relationship Status Dates Dr. Aiden Wolfe DO Primary care physician Activ e Team Status: Inactive Member Role/Relationship Status Dates Elisa STANFORD MD Attending physician Active Start: October 01, 2024 End: October 01, 2024 Dr. Aiden Wolfe DO Primary care physician Activ e Start: October 01, 2024 End: October 01, 2024 Team Status: Active Member Role/Relationship Status Dates Elisa STANFORD MD Attending physician Active Start: October 09, 2024 Dr. Aiden Wolfe DO Primary care physician Activ e Start: October 09, 2024 Team Status: Active Member Role/Relationship Status Dates Elisa STANFORD MD Attending physician Active Start: October 13, 2024 Dr. Aiden Wolfe DO Primary care physician Activ e Start: October 13, 2024 Team Status: Active Member Role/Relationship Status Dates Elisa STANFORD MD Attending physician Active Start: November 18, 2024 Dr. Aiden Wolfe DO Primary care physician Activ e Start: November 18, 2024 Team Status: Active Member Role/Relationship Status Dates Elisa STANFORD MD Attending physician Active Start: December 21, 2024 Elisa STANFORD MD Referring Provider Active Start: December 21, 2024 Team Status: Inactive Member Role/Relationship Status Dates Elisa STANFORD MD Attending physician Active Start: October 13, 2024 End: October 13, 2024 Dr. Aiden Wolfe DO Primary care physician Activ e Start: October 13, 2024 End: October 13, 2024 INFORMATION SOURCE (unrecogn ized section and content) DATE CREATED AUTHOR 09/21/2023 [facility] ([place]) DATE CREATED AUTHOR AUTHOR'S ORGANIZ ATION 05/07/2024 [facility] DATE CREATED AUTHOR AUTHOR'S ORGANIZ ATION 02/21/2025 [facility] Goals (unrecognized section and content) Goals [...] BE BASED ON THE PRIMARY CLINICAL RECORDS. [facility] [facility]. provides no warranty or guarantee of the accuracy or completeness of information in this document.
[2025-04-02 08:45] LABS: Color, Urine Yellow (Yellow); Glucose, Dipstick Normal (Normal); Ketone-Dipstick Negative (Negative); Leukocyte Esterase-Dipstick Negative /ul (Negative); Nitrite-Dipstick Negative (Negative); Occult Blood-Urine Negative /ul (Negative); Protein-Dipstick 15 mg/dl (Negative); Specific Gravity, Urine 1.005 (1.002-1.030); Urine Bilirubin Dipstick Negative (Negative)
[2025-04-02 08:53] LABS: Squamous Epithelial Cells - UA 0-5 SEEN /hpf (5-10)
== END ==
LOC: OLS.WCC 20:40
PROVIDERS: PCP Family Medicine; Visit Provider Family Medicine
DX: N39.0 Urinary tract infection, site not specified (principal); Z79.899 Other long term (current) drug therapy
CPT/HCPCS: 81001; 87086; 87088